=== PATIENT | female | born 1965 | race Caucasian/White ===

== ENCOUNTER 2023-07-26 14:25 | Outpatient (AMB) | payer MEDICAID, SELFPAY ==
--- NOTE | 2023-07-26 14:28 | MHC.OFFVIS ---
Intake Vital Signs 07/26/23 14:35 Height 5 ft 3.5 in Weight 200 lb BMI 34.9 BP 138/75 Blood Pressure Location Lt brachial Position Sitting Respiration 12 Pulse 95 Pulse Source Pulse Oximeter Pulse Oximetry (%) 95 Oxygen Delivery Method Room Air Intake Visit Reasons: Occipital Neuralgia/lvm Allergies codeine Adverse Reaction (Intermediate, Verified 07/26/23 14:36) Vomiting ivp dye Adverse Reaction (Intermediate, Uncoded 07/26/23 14:36) Vomiting Medication List - Last Reconciled 07/26/23 by Natalie Frazier LPN bupropion HCl 150 mg PO BID calcium carbonate 600 mg PO DAILY cholecalciferol (vitamin D3) 25 mcg PO DAILY diazepam 4 mg PO TID duloxetine mg PO gabapentin 600 mg PO TID hydroxyzine HCl 25 - 50 mg PO TID PRN magnesium 500 mg PO DAILY mirabegron ER (Myrbetriq) 25 mg PO DAILY solifenacin 10 mg PO DAILY HPI Occipital Neuralgia/lvm HPI Details 57-year-old female who presents today to the office for an evaluation of occipital neuralgia as well as low back pain. The patient has a history of peripheral neuropathy, restless leg syndrome, overactive bladder, depression, and lumbar disc disease. She reports that sharp lower back pain is most bothersome. It is described as an aching stabbing sensation in the right side, usually 7 to 10/10 in intensity. She states that she was picking up a wheelchair seat for her mother when she felt some pulling on the left side. She was going for physical therapy for about three years in the past. She has been off work since 2020. She was previously under the care of Dr. Cj Arthur, pain management. She was taking oral ketamine, fentanyl patches, hydromorphone, valium, and Adderall. She was also diagnosed with fibromyalgia in 2016. Her prior history is notable for the L5-S1 laminotomy with discectomy. She has a history of osteoporosis and takes calcium supplements. She has a longstanding history of migraines. She has episodes of blurry or double vision. She also noticed some memory issues. She had difficulty getting a referral to a neurologist. She is not taking any opioid medications at this time. She has had constant pain in her ear since 2011. She has had tinnitus for the past five to six years. [facility] Medical History (Updated 12/12/23 @ 13:53 by Gil Cortes MD) Lumbar disc disease Depression Overactive bladder Restless leg syndrome Peripheral neuropathy Review of Systems Const All systems reviewed & are unremarkable except as noted in HPI and below Physical Exam Vital Signs: Last Vital Signs Pulse 95 07/26/23 14:35 Resp 12 07/26/23 14:35 BP 138/75 07/26/23 14:35 Pulse Ox 95 07/26/23 14:35 Oxygen Delivery Method Room Air 07/26/23 14:35 BMI result Body Mass Index 34.9 General: Appears afebrile. Alert and oriented. Mood and affect appropriate. Follows and participates in conversation appropriately. Respiratory effort is unlabored. Able to transition from sit to stand unassisted. Ambulates with bilaterally normal heel strike and toe off. SIJ provocation maneuvers are negative, but lumbar ROM elicits right sided stabbing sensation overlying the SI joint. Lumbar extension reproduces pain across the lower back. Forward flexion is not painful. Results Reviewed Results Reviewed: No imaging is available for review. Assessment & Plan Assessment & Plan (1) Sacroiliac joint dysfunction: Code(s): M53.3 - Sacrococcygeal disorders, not elsewhere classified (2) Lumbar spondylosis: Code(s): M47.816 - Spondylosis without myelopathy or radiculopathy, lumbar region Plan Axial low back pain that is elicited with lumbar ROM and lumbar facet loading. Differential includes lumbar spondylosis and sacroiliac joint dysfunction. The location of her pain is more consistent with a sacroiliac source. Will schedule her for a right diagnostic sacroiliac joint injection 1st. Discussed the risks and benefits of the procedure with the patient in detail. All questions were answered. The patient is on board with the plan. If the diagnostic SI joint is negative, we will consider diagnostic lumbar medial branch blocks. Justification for interventional therapy: ? Patient with average pain > 6/10 ? Patient has exhausted conservative therapy Scribed for Dr. Cortes by Canelo Alexandra, medical administrative assistant, on 07/26/2023. I, Dr. Cortes, have personally reviewed and agree with the information entered by the scribe. Coding Level of Care Code New Pt Level 4 (00287) Diagnoses Sacroiliac joint dysfunction M53.3 Lumbar spondylosis M47.816
[2023-07-26 14:35] VITALS: BP 138/75; PULSE 95; RESP 12; O2SAT 95; BMI 34.9
== END 2023-07-26 15:09 | disposition home or self-care (01) ==
PROVIDERS: PCP Internal Medicine; Referring Provider Internal Medicine; Visit Provider Internal Medicine
DX: M53.3 Sacrococcygeal disorders, not elsewhere classified (principal); M47.816 Spondylosis without myelopathy or radiculopathy, lumbar region
CPT/HCPCS: 99204

== ENCOUNTER → 2023-07-26 14:25 | Outpatient (BNVA) | payer MEDICAID, SELFPAY | PROVIDERS: PCP Internal Medicine; Referring Provider Internal Medicine; Visit Provider Internal Medicine | DX: M54.81 Occipital neuralgia (principal); M53.3 Sacrococcygeal disorders, not elsewhere classified; M47.816 Spondylosis without myelopathy or radiculopathy, lumbar region | CPT/HCPCS: 99202 ==

== ENCOUNTER 2023-08-31 13:53 | Outpatient (REF) | payer MEDICAID, SELFPAY ==
[2023-08-31 16:00] LABS: Anion Gap 13 (12-20); Blood Urea Nitrogen 9 mg/dL (9-16); Calcium 9.6 mg/dL (8.4-10.2); Carbon Dioxide 25 mmol/L (22-29); Chloride 106 mmol/L (96-108); Estimated Glomerular Filt Rate 60; Glucose Random 88 mg/dL (60-115); Potassium 3.9 mmol/L (3.3-5.1); Sodium 140 mmol/L (135-145)
[2023-08-31 16:18] LABS: T4 Thyroxine 5.5 ug/dL (4.5-12.0); Thyroid Stimulating Hormone 0.91 uIU/mL (0.32-4.0)
[2023-08-31 16:32] LABS: Vitamin B12 418 pg/mL (200-900)
== END 2023-08-31 13:54 | disposition home or self-care (01) ==
LOC: HO.LAB 13:53
PROVIDERS: PCP Internal Medicine; Visit Provider Psychiatry & Neurology Neurology
DX: G31.84 Mild cognitive impairment of uncertain or unknown etiology (principal)
CPT/HCPCS: 36415; 80048; 82607; 82746; 84436; 84443

== ENCOUNTER 2023-09-01 05:44 | Outpatient (REF) | payer MEDICAID, SELFPAY ==
--- NOTE | ~2023-09-01 | FL_ITS ---
CLINICAL INDICATION: Sacral coccygeal pain. FINDINGS: Technical assistance and equipment were provided by the Department of Radiology during intraoperative fluoroscopy for percutaneous injection. 4, limited fluoroscopic spot images are submitted. A radiologist was not present during the procedure. Images demonstrate the tips of percutaneous needles to project roughly over the regions of the mid SI joints bilaterally. The images are available for review on PACS. TOTAL FLUOROSCOPY TIME: 0.3 minutes. DOSE AREA PRODUCT: 0.19 mGy-m2 (milligray-meter squared) FL/FL guidance in treatment room IMPRESSION: Technical assistance and equipment provided by the Department of Radiology during intraoperative fluoroscopy, as above. Please see operative report for further details.
== END 2023-09-01 05:45 | disposition home or self-care (01) ==
LOC: CF 05:44
PROVIDERS: Visit Provider Internal Medicine
DX: M53.3 Sacrococcygeal disorders, not elsewhere classified (principal)
CPT/HCPCS: 27096; J2795; Q9967

== ENCOUNTER 2023-09-01 08:56 | Outpatient (AMB) | payer MEDICAID, SELFPAY ==
[2023-09-01 09:03] VITALS: BP 130/82; PULSE 96; RESP 12; O2SAT 97
--- NOTE | 2023-09-01 09:03 | MHC.OFFVIS ---
Intake Vital Signs 09/01/23 09:03 09/01/23 10:08 BP 130/82 132/66 Blood Pressure Location Lt brachial Lt brachial Position Sitting Sitting Respiration 12 12 Pulse 96 77 Pulse Source Pulse Oximeter Pulse Oximeter Pulse Oximetry (%) 97 97 Oxygen Delivery Method Room Air Room Air Intake Visit Reasons: chely Dx SIJ inj Allergies codeine Adverse Reaction (Intermediate, Verified 09/01/23 09:04) Vomiting ivp dye Adverse Reaction (Intermediate, Uncoded 09/01/23 09:04) Vomiting HPI chely Dx SIJ inj HPI Details Patient presents for scheduled procedure. Denies any recent cough, cold, infection, fever or other significant changes in medical history since last office visit. [facility] Medical History (Updated 08/09/23 @ 09:26 by Gil Cortes MD) Lumbar disc disease Depression Overactive bladder Restless leg syndrome Peripheral neuropathy Physical Exam Vital Signs: Last Vital Signs Pulse 77 09/01/23 10:08 Resp 12 09/01/23 10:08 BP 132/66 09/01/23 10:08 Pulse Ox 97 09/01/23 10:08 Oxygen Delivery Method Room Air 09/01/23 10:08 Office Procedures Joint Injection/Drain Joint Injection/Drain Details: Diagnostic Sacroiliac Joint Injection, Bilateral The procedure, its benefits, and its risks were explained and written informed consent was obtained from the patient. Immediately prior to starting the procedure, a time-out safety check was conducted. The patient's identification, procedure name, procedure site, and procedure laterality were confirmed with the patient. ? Patient was placed prone on the fluoroscopy table and the lumbosacral area was prepped using ChloraPrep and draped with sterile drapein standard fashion. The C-arm was rotated in a contralateral oblique fashion until the medial border of the iliac crest no longer foreshadowed the posterior sacroiliac joint line. The skin and subcutaneous tissue was anesthetized using 1 mL of 0.75% plain lidocaine with 1.5-inch 25-gauge needle in the middle region of the joint line.? A 3.5-inch 22-gauge spinal needle with small bend on the tip was slowly advanced towards the joint line, coaxial to the x-ray beam. Once bony content was obtained, the needle was easily slid into the intra-articular space.? Intra-articular needle position was confirmed using lateral fluoroscopy.? A total volume of 2.5mL of solution containing 0.5% of ropivacaine was injected intra-articularly. The stylet was reinserted and needle was removed. The same process was repeated on the contralateral side. The patient tolerated the procedure well. Patient denied any lower extremity weakness or numbness. Patient was observed for 30 min and was discharged after fulfilling the standard discharge criteria. Coding 41897 - Sacroiliac (Bilateral) Procedure code (CPT) selection complete Assessment & Plan Assessment & Plan (1) Sacroiliac joint dysfunction: Code(s): M53.3 - Sacrococcygeal disorders, not elsewhere classified Plan Patient is status post bilateral diagnostic sacroiliac joint injections. Patient tolerated procedure well and was discharged home in stable condition with discharge instructions. All questions were answered. We will follow-up via telephone or in clinic to assess response to therapy. A follow-up appointment was made during today's visit. Orders: Orders FL guidance in treatment room Today M53.3 - Sacrococcygeal disorders, not elsewhere classified Coding Level of Care Code Procedure Only Diagnoses Sacroiliac joint dysfunction M53.3 CPT Codes Coding - Joint 9: 58039 - Sacroiliac ([id number])
[2023-09-01 10:08] VITALS: BP 132/66; PULSE 77; RESP 12; O2SAT 97
== END 2023-09-01 09:43 | disposition home or self-care (01) ==
LOC: HO.PMCPRC 08:56
PROVIDERS: PCP Internal Medicine; Visit Provider Internal Medicine
DX: M53.3 Sacrococcygeal disorders, not elsewhere classified (principal)
CPT/HCPCS: 27096

== ENCOUNTER 2023-09-03 11:27 | Outpatient (AMB) | payer MEDICAID, SELFPAY ==
--- NOTE | 2023-09-03 11:31 | A.OFFVIS_ITS ---
Intake Vital Signs 09/03/23 11:33 Height 5 ft 3.5 in Weight 193 lb BMI 33.6 Respiration 12 Pulse 85 Pulse Source Pulse Oximeter Pulse Oximetry (%) 97 Oxygen Delivery Method Room Air Intake Visit Reasons: s/p right Dx SIJ inj Allergies codeine Adverse Reaction (Intermediate, Verified 09/03/23 11:35) Vomiting ivp dye Adverse Reaction (Intermediate, Uncoded 09/03/23 11:35) Vomiting Medication List - Last Reconciled 09/03/23 by Natalie Frazier LPN bupropion HCl 150 mg PO BID calcium carbonate 600 mg PO DAILY cholecalciferol (vitamin D3) 25 mcg PO DAILY diazepam 4 mg PO TID duloxetine mg PO gabapentin 600 mg PO TID hydroxyzine HCl 25 - 50 mg PO TID PRN magnesium 500 mg PO DAILY mirabegron ER (Myrbetriq) 25 mg PO DAILY solifenacin 10 mg PO DAILY HPI s/p right Dx SIJ inj HPI Details 57-year-old female who presents today to the office for a status post- right diagnostic SIJ injection. The patient reports 100 % relief following the procedure. Her right-sided pain started coming back last night. She states that her right side is worse than her left side. She had cortisone injections for SIJ in the past. She had completed multiple physical therapy sessions in the past. She also reports some neck issues. She has had shoulder surgery and back surgery. She was following up with pain management, took multiple medications, and tried fentanyl patches. She has tried the SIJ belt but discontinued it as it caused back pain. She has been seeing Dr. Roberson for memory issues, which started last May after the surgery. She also has a gait imbalance issue. She had a feeling of getting off balance and falling down while walking. She is using a cane. She noticed she forgot three times while driving. She states that recently she had to pull into a commercial parking lot because she had a panic attack because her GPS was not working. At last, she had to call her aunt to come pick her up. She had [address] Villaseñor at [facility] for occipital nerve release. She has had adhesion issues in multiple parts of her body. She has also had 4?5 laparoscopic surgeries for adhesions. ? Past procedures:? 09/01/23: Diagnostic Sacroiliac Joint Inj ection, Bilateral: 100 % diagnostic relief. [facility] Medical History (Updated 08/09/23 @ 09:26 by Gil Cortes MD) Lumbar disc disease Depression Overactive bladder Restless leg syndrome Peripheral neuropathy Review of Systems Const All systems reviewed & are unremarkable except as noted in HPI and below Physical Exam Vital Signs: Last Vital Signs Pulse 85 09/03/23 11:33 Resp 12 09/03/23 11:33 Pulse Ox 97 09/03/23 11:33 Oxygen Delivery Method Room Air 09/03/23 11:33 BMI result Body Mass Index 33.6 General: Appears afebrile. Alert and oriented. Mood and affect appropriate. Follows and participates in conversation appropriately. Respiratory effort is unlabored. Able to transition from sit to stand unassisted. Ambulates with bilaterally normal heel strike and toe off. Results Reviewed Results Reviewed: No imaging is available for review. Assessment & Plan Assessment & Plan (1) Sacroiliac joint dysfunction: Code(s): M53.3 - Sacrococcygeal disorders, not elsewhere classified Plan Will schedule her for a bilateral therapeutic SI joint injection. Discussed the risks and benefits of the procedure with the patient in detail. All questions were answered. The patient is on board with the plan. Justification for interventional therapy: ? Patient with average pain > 6/10 ? Patient has exhausted conservative therapy Scribed for Dr. Cortes by Canelo Alexandra, medical social worker, on 09/03/2023. I, Dr. Cortes, have personally reviewed and agree with the information entered by the scribe. Coding Level of Care Code Est Pt Level 3 (34136) Diagnoses Sacroiliac joint dysfunction M53.3
[2023-09-03 11:33] VITALS: PULSE 85; RESP 12; O2SAT 97; BMI 33.6
== END 2023-09-03 11:52 | disposition home or self-care (01) ==
PROVIDERS: PCP Internal Medicine; Visit Provider Internal Medicine
DX: M53.3 Sacrococcygeal disorders, not elsewhere classified (principal)
CPT/HCPCS: 99213

== ENCOUNTER → 2023-09-03 11:27 | Outpatient (BNVA) | payer MEDICAID, SELFPAY | PROVIDERS: PCP Internal Medicine; Visit Provider Internal Medicine | DX: M53.3 Sacrococcygeal disorders, not elsewhere classified (principal) | CPT/HCPCS: 99212 ==

== ENCOUNTER 2023-09-23 06:06 | Outpatient (REF) | payer MEDICAID, SELFPAY ==
--- NOTE | ~2023-09-23 | FL_ITS ---
EXAMINATION: Intraoperative fluoroscopy CLINICAL INFORMATION: sacrococcygeal disorders COMPARISON: Intraoperative fluoroscopy imaging 09/01/2023 TECHNIQUE: Intraoperative fluoroscopy was provided for use by Dr. Cortes. A total of 4 images were saved to PACS. A radiologist was not present during imaging. Today's dictation is only for administrative purposes to document intraoperative fluoroscopic usage. TOTAL FLUOROSCOPIC TIME: 0.1 minutes DAP: 0.028 mGy-cm FL/FL guidance in treatment room FINDINGS~\^^ Intraoperative fluoroscopy provided for use by Dr. Cortes. Please see operative note for detailed findings.
== END 2023-09-23 06:07 | disposition home or self-care (01) ==
LOC: CF 06:06
PROVIDERS: Visit Provider Internal Medicine
DX: M53.3 Sacrococcygeal disorders, not elsewhere classified (principal)
CPT/HCPCS: 27096; J3301; Q9967

== ENCOUNTER 2023-09-23 07:50 | Outpatient (AMB) | payer MEDICAID, SELFPAY ==
--- NOTE | 2023-09-23 07:47 | A.OFFVIS_ITS ---
Intake Vital Signs 09/23/23 07:57 09/23/23 09:04 Height 5 ft 3.5 in 5 ft 3.5 in Weight 201 lb 201 lb BMI 35.0 35.0 BP 120/70 120/68 Blood Pressure Location Lt brachial Lt brachial Position Sitting Sitting Respiration 18 18 Pulse 82 108 H Pulse Source Pulse Oximeter Pulse Oximeter Pulse Oximetry (%) 97 97 Oxygen Delivery Method Room Air Room Air Comment Pre-Op Post-op Intake Visit Reasons: Ezequiel theraputic SIJ Medical Billing And Coding Instructor Required: No Accompanied by: Family/Other Allergies codeine Adverse Reaction (Intermediate, Verified 09/23/23 07:58) Vomiting ivp dye Adverse Reaction (Intermediate, Uncoded 09/03/23 11:35) Vomiting HPI Ezequiel theraputic SIJ HPI Details Patient presents for scheduled procedure. Denies any recent cough, cold, infection, fever or other significant changes in medical history since last office visit. [facility] Medical History (Updated 08/09/23 @ 09:26 by Gil Cortes MD) Lumbar disc disease Depression Overactive bladder Restless leg syndrome Peripheral neuropathy Physical Exam Vital Signs: Last Vital Signs Pulse 82 09/23/23 07:57 Resp 18 09/23/23 07:57 BP 120/70 09/23/23 07:57 Pulse Ox 97 09/23/23 07:57 Oxygen Delivery Method Room Air 09/23/23 07:57 BMI result Body Mass Index 35.0 Office Procedures Joint Injection/Drain Joint Injection/Drain Details: Sacroiliac Joint Injection, Bilateral The procedure, its benefits, and its risks were explained and written informed consent was obtained from the patient. Immediately prior to starting the procedure, a time-out safety check was conducted. The patient's identification, procedure name, procedure site, and procedure laterality were confirmed with the patient. ? Patient was placed prone on the fluoroscopy table and the lumbosacral area was prepped using ChloraPrep and draped with sterile drape in standard fashion. The C-arm was rotated in a contralateral oblique fashion until the medial border of the iliac crest no longer foreshadowed the posterior sacroiliac joint line. The skin and subcutaneous tissue was anesthetized using 1 mL of 0.75% plain lidoc ermelinda with 1.5-inch 25-gauge needle in the middle region of the joint line.? A 3.5-inch 22-gauge spinal needle with small bend on the tip was slowly advanced towards the joint line, coaxial to the x-ray beam. Once bony content was obtained, the needle was easily slid into the intra-articular space.? Intra- articular needle position was confirmed using lateral fluoroscopy.? A total volume of 3 mL of solution containing 40 mg Kenalog and rest 0.5% of ropivacaine was injected intra-articularly. The stylet was reinserted and needle was removed. The same procedure was repeated on the other side. The patient tolerated the procedure well. Patient denied any lower extremity weakness or numbness. Patient was observed for 30 min and was discharged after fulfilling the standard discharge criteria. Coding 83998 - Sacroiliac (bilateral) Procedure code (CPT) selection complete Assessment & Plan Assessment & Plan (1) Sacroiliac joint dysfunction: Code(s): M53.3 - Sacrococcygeal disorders, not elsewhere classified Plan Patient is status post bilateral therapeutic SIJ injections. Patient tolerated procedure well and was discharged home in stable condition with discharge instructions. All questions were answered. We will follow-up via telephone or in clinic to assess response to therapy. A follow-up appointment was made during today's visit. Orders: Orders FL guidance in treatment room Today M53.3 - Sacrococcygeal disorders, not elsewhere classified Coding Level of Care Code Procedure Only Diagnoses Sacroiliac joint dysfunction M53.3 CPT Codes Coding - Joint 9: 74665 - Sacroiliac ([id number])
[2023-09-23 07:57] VITALS: BP 120/70; PULSE 82; RESP 18; O2SAT 97; BMI 35.0
[2023-09-23 09:04] VITALS: BP 120/68; PULSE 108; RESP 18; O2SAT 97; BMI 35.0
== END 2023-09-23 08:49 | disposition home or self-care (01) ==
LOC: HO.PMCPRC 07:50
PROVIDERS: PCP Internal Medicine; Referring Provider Internal Medicine; Visit Provider Internal Medicine
DX: M53.3 Sacrococcygeal disorders, not elsewhere classified (principal)
CPT/HCPCS: 27096

== ENCOUNTER 2023-09-28 14:55 | Outpatient (REF) | payer MEDICAID, SELFPAY ==
--- NOTE | ~2023-09-28 | CT_ITS ---
EXAMINATION: CT HEAD WITHOUT CONTRAST CLINICAL INFORMATION: 57-year-old with mild cognitive impairment of uncertain or unknown etiology. COMPARISON: None available. TECHNIQUE: Contiguous axial imaging was performed from the skull base to vertex without intravenous administration of contrast. This CT examination was performed using dose optimization techniques as appropriate, variously including the following: *Automated exposure control *Adjustment of mA and/or kV according to patient size (this includes techniques or standardized protocols for targeted exams where dose is matched to indication/reason for exam; i.e. extremities or head) *Use of iterative reconstruction technique DLP: 682 mGy-cm FINDINGS: Brain Volume: Within normal limits within the limitations of qualitative assessment. Structural: No malformations. Brain and Meninges: Farrell-white matter interface is preserved. No evidence for territorial infarct. Normal brain parenchymal attenuation. No evidence for intracranial hemorrhage, extra-axial fluid collection, space-occupying process or mass effect. Ganglionic structures, midbrain and brainstem are grossly intact within the limitations of the exam with beam-hardening artifact in the posterior fossa. There are bilateral atheromatous mural calcifications of the carotid siphons and partially calcified plaque at the right vertebral artery. Ventricles and Subarachnoid Spaces: The ventricular system and subarachnoid spaces are within normal range; there is no hydrocephalus. Orbital Structures: The partially visualized orbital soft tissue structures are grossly within normal limits and symmetric. Osseous Structures, Sinuses/Mastoids, Extracranial Soft Tissues: The calvarium is intact. The visualized airspaces are unopacified. The visualized extracranial soft tissue structures are unremarkable. CT/CT head/brain wo IV con IMPRESSION: 1. Normal noncontrast CT of the brain. No evidence for territorial infarct, intracranial hemorrhage, extra-axial fluid collection, space-occupying process, mass effect or hydrocephalus. 2. Bilateral atheromatous mural calcifications of the carotid siphons and right vertebral artery. 3. No significant disproportionate global or regional brain parenchymal volume loss within the limitations of a qualitative assessment.
== END 2023-09-28 14:56 | disposition home or self-care (01) ==
LOC: HO.CT 14:55
PROVIDERS: PCP Internal Medicine; Visit Provider Psychiatry & Neurology Neurology
DX: G31.84 Mild cognitive impairment of uncertain or unknown etiology (principal)
CPT/HCPCS: 70450

== ENCOUNTER 2023-10-06 13:34 | Outpatient (REF) | payer MEDICAID, SELFPAY ==
[2023-10-06 14:10] LABS: Blood Urea Nitrogen 14 mg/dL (9-16); Estimated Glomerular Filt Rate > 60
== END 2023-10-06 13:35 | disposition home or self-care (01) ==
LOC: HO.LAB 13:34
PROVIDERS: PCP Internal Medicine; Visit Provider Psychiatry & Neurology Neurology
DX: I65.29 Occlusion and stenosis of unspecified carotid artery (principal)
CPT/HCPCS: 36415; 82565; 84520

== ENCOUNTER 2023-10-15 08:18 | Outpatient (AMB) | payer MEDICAID, SELFPAY ==
--- NOTE | 2023-10-15 09:02 | MHC.OFFVIS ---
Intake Vital Signs 10/15/23 09:04 Height 5 ft 3.5 in Weight 205 lb BMI 35.7 BP 136/65 Blood Pressure Location Rt brachial Position Sitting Pulse 62 Pulse Source Pulse Oximeter Pulse Oximetry (%) 97 Oxygen Delivery Method Room Air Intake Visit Reasons: s/p chely theraputic SIJ inj/confirmed Training And Development Specialist Required: No Accompanied by: Self / Same As Patient Allergies codeine Adverse Reaction (Intermediate, Verified 10/15/23 09:02) Vomiting ivp dye Adverse Reaction (Intermediate, Uncoded 09/03/23 11:35) Vomiting HPI s/p chely theraputic SIJ inj/confirmed HPI Details 57-year-old female who presents today to the office for a status post bilateral therapeutic SIJ injections. The patient had two days of relief following the therapeutic injection, which was in line with the diagnostic phase, but the steroid did not give her much benefit. She reports sharp pain that started two days after the procedure. She reports worsening of the SIJ and hip pain. She states that her pain worsens with movement. She reports whole-body pain, which is secondary to fibromyalgia. She has been having worsening pain in her lower back as well as her ear since her duloxetine has been weaned off. She is now down to 30 milligrams from 90 milligrams a day, and she feels this has contributed to the worsening of her symptoms. She is not able to get out of bed or socialize with her friends and family. She reports a severe pain around her right ear. She reports pressure and sharp stabbing. She states that her pain radiates to the back of her head. She has been visiting a therapist. She is taking care of her mother, who is 93 years old. Her depression has not been well controlled of late. Past procedures: 09/23/2023: Sacroiliac Joint Injection, Bilateral: Two days of relief. 09/01/23: Diagnostic Sacroiliac Joint Injection, Bilateral: 100 % diagnostic relief. [facility] Medical History (Updated 10/21/23 @ 15:19 by Gil Cortes MD) Lumbar disc disease Depression Overactive bladder Restless leg syndrome Peripheral neuropathy Review of Systems Const All systems reviewed & are unremarkable except as noted in HPI and below Physical Exam Vital Signs: Last Vital Signs Pulse 62 10/15/23 09:04 BP 136/65 10/15/23 09:04 Pulse Ox 97 10/15/23 09:04 Oxygen Delivery Method Room Air 10/15/23 09:04 BMI result Body Mass Index 35.7 General: Appears afebrile. Alert and oriented. Mood and affect appropriate. Follows and participates in conversation appropriately. Respiratory effort is unlabored. Able to transition from sit to stand unassisted. Ambulates with bilaterally normal heel strike and toe off. Results Reviewed Results Reviewed: No imaging is available for review. Assessment & Plan Assessment & Plan (1) Sacroiliac joint dysfunction: Code(s): M53.3 - Sacrococcygeal disorders, not elsewhere classified (2) Lumbar spondylosis: Code(s): M47.816 - Spondylosis without myelopathy or radiculopathy, lumbar region (3) Otalgia of right ear: Code(s): H92.01 - Otalgia, right ear Plan I had a long discussion with her regarding her various ongoing issues including periauricular pain, low back pain, suboptimally controlled depression and mild cognitive impairment. I encouraged her to follow up with Dr. Roberson to see what other alternatives might be available to her in setting of weaning off the duloxetine. For her sacroiliac joint pain, we discussed nerve stimulation therapy as a potential treatment option. I did inform her that we would need a note from her current therapist clearing her for such therapy and confirming that her underlying psychiatric conditions, including depression, are well controlled before we can proceed with a trial of PNS. With respect to her ear pain, we can plan for diagnostic periauricular nerve blocks in the future and also consider nerve stimulation for that if she is interested. Scribed for Dr. Cortes by Canelo Alexandra, esthetician and manager medical spa, on 10/15/2023. I, Dr. Cortes, have personally reviewed and agree with the information entered by the scribe. Coding Level of Care Code Est Pt Level 4 (60153) Diagnoses Sacroiliac joint dysfunction M53.3 Lumbar spondylosis M47.816 Otalgia of right ear H92.01
[2023-10-15 09:04] VITALS: BP 136/65; PULSE 62; O2SAT 97; BMI 35.7
== END 2023-10-15 09:20 | disposition home or self-care (01) ==
PROVIDERS: PCP Internal Medicine; Visit Provider Internal Medicine
DX: M53.3 Sacrococcygeal disorders, not elsewhere classified (principal); M47.816 Spondylosis without myelopathy or radiculopathy, lumbar region; H92.01 Otalgia, right ear
CPT/HCPCS: 99214

== ENCOUNTER 2023-10-15 09:29 | Outpatient (REF) | payer MEDICAID, SELFPAY ==
--- NOTE | ~2023-10-15 | CT_ITS ---
EXAMINATION: CT ANGIOGRAM BRAIN/HEAD CLINICAL INFORMATION: Evaluate for carotid artery stenosis. COMPARISON: 09/28/2023 CT brain. TECHNIQUE: Test bolus sequences followed by intravenous administration 75 mL of Omnipaque 350 intravenous contrast. Helical imaging was performed in the axial plane from the skull base to the vertex. Precontrast and delayed postcontrast imaging of the head was also performed. The data was processed at the x ray technologist workstation for generation of MIP sequences. Three-dimensional volume rendered reformatted images were also generated at an offline 3-D workstation. The degree of stenosis determined by NASCET criteria. This CT examination was performed using dose optimization techniques as appropriate, variously including the following: *Automated exposure control *Adjustment of mA and/or kV according to patient size (this includes techniques or standardized protocols for targeted exams where dose is matched to indication/reason for exam; i.e. extremities or head) *Use of iterative reconstruction technique DLP: 2091 mGy-cm FINDINGS: CT BRAIN: Redemonstrated is normal brain parenchymal attenuation with an intact ann-white matter junction with no evidence for acute territorial infarct, intracranial hemorrhage, extra-axial fluid collection, space-occupying process or mass effect. No intracranial mass lesion or pathologic intracranial enhancement is identified. The ventricular system and subarachnoid spaces are within normal limits without hydrocephalus. The visualized orbital soft tissue structures appear symmetric and within normal limits. The bony structures are intact and the visualized airspaces are unopacified. CT ANGIOGRAM, BRAIN/HEAD: The left upper cervical ICA is patent, smoothly contoured and normal in caliber. The petrous portion of the intracranial left ICA is smoothly contoured, normal in caliber and patent. There are mural calcifications of the left carotid siphon, with mild luminal diameter reduction of the supraclinoid left ICA without significant focal stenosis. The visualized upper cervical right ICA is patent, smoothly contoured and normal in caliber. The petrous portion of the intracranial right ICA is also patent and normal in caliber. There are mural calcifications of the right carotid siphon, with mild luminal narrowing of the cavernous and ophthalmic segments of the right ICA and moderate diameter reduction stenosis of the supraclinoid right ICA. The left A1 segment is dominant, patent and normal in caliber. The right A1 segment is relatively hypoplastic but is patent. The A2 segments are patent and normal in caliber bilaterally. The anterior communication artery is within normal limits. The M1 segments of the MCAs are patent without significant focal stenosis or segmental occlusion. The MCA bifurcations and M2 branches are patent and normal in caliber. The visualized extracranial vertebral arteries demonstrate that the right vertebral artery is dominant with a small left vertebral artery. Minimal calcified plaque noted in the proximal V4 segment of the intradural right vertebral artery. No evidence for significant vertebral artery stenosis or occlusion. The basilar artery is patent and normal in caliber. The superior cerebellar and posterior cerebral arteries are patent. The right posterior communicating artery is visualized. No intracranial aneurysms or high flow vascular malformations are seen. There is opacification of the major dural venous sinuses. CT/CT angio head IMPRESSION: 1. No evidence for large vessel occlusion or critical focal stenosis of the intracranial arterial circulation. 2. Mural calcifications of the carotid siphons bilaterally, right more than left, with moderate diameter reduction stenosis of the supraclinoid right ICA and mild luminal diameter reduction of the supraclinoid left ICA. 3. Normal CT of the brain with and without contrast.
[2023-10-15] MEDS: iohexoL 350 MG/ML 100 ML INFUS..BTL 75 ML IV (10:22)
== END 2023-10-15 09:30 | disposition home or self-care (01) ==
LOC: HO.CT 09:29
PROVIDERS: PCP Internal Medicine; Visit Provider Psychiatry & Neurology Neurology
DX: I65.23 Occlusion and stenosis of bilateral carotid arteries (principal); M53.3 Sacrococcygeal disorders, not elsewhere classified; M47.816 Spondylosis without myelopathy or radiculopathy, lumbar region; H92.01 Otalgia, right ear
CPT/HCPCS: 70496; 99212; Q9967

== ENCOUNTER → 2023-10-19 09:38 | Outpatient (REF) | payer MEDICAID, SELFPAY ==
--- NOTE | 2023-10-19 09:48 | CA_ITS ---
Transthoracic Echocardiogram Patient (Last, First, Middle): Edu Suárez N Gender: Female Date of : 1965 Age: 57 Procedure Date: 10/19/2023 Procedure Type: Transthoracic Echocardiogram Location: OP Height: 160.02 cm Weight: 92.53 kg BSA: 1.95 m2 Heart Rate: bpm BP: 115 / 75 mmHg Sample Processor: ALANA Referring MD: Johann Trujillo MD Symptoms: F/U MURMUR Study Quality: Adequate ECG Rhythm: Sinus Conclusions: - The left ventricular systolic function is normal. The calculated ejection fraction is 60% by biplane method. - There is moderate calcification of the aortic valve. There is mild aortic valve stenosis. There is mild aortic valve regurgitation. Findings Left Ventricle Normal left ventricular cavity size. There is normal left ventricular wall thickness. The left ventricular systolic function is normal. The calculated ejection fraction is 60% by biplane method. There is no evidence of regional wall motion abnormalities. Diastolic function is normal for age. LV peak GLS -15.8%. Right Ventricle Normal right ventricular cavity size and systolic function. Atria Both atria are normal in size. Aortic Valve There is moderate calcification of the aortic valve. There is mild aortic valve stenosis. There is mild aortic valve regurgitation. Mitral Valve There is mild mitral annular calcification. There is no mitral valve regurgitation. There is no mitral valve stenosis. Pulmonic Valve The pulmonic valve is likely normal. Tricuspid Valve There is trace tricuspid valve regurgitation. There is no evidence of pulmonary hypertension. Great Vessels The asc aorta is normal in size. Venous The inferior vena cava is normal in size and collapses greater than 50% with inspiration. Pericardium/Pleural There is no evidence of pericardial effusion. Prior Study Comparison No prior study available for comparison. Measurements 2D Linear Measurements IVSd: 0.81 0.6-0.9/0.6-1.0 cm LVIDd: 5.15 3.9-5.3/4.2-5.9 cm LVIDd Index: 2.64 2.4-3.2/2.2-3.1 cm/m2 LVIDs: 2.96 2.0-3.6 cm LVPWd: 1.01 0.7-1.1 cm LA Diam: 3.50 2.7-3.8/3.0-4.0 cm LAIDs Index: 1.79 1.5-2.3 cm/m2 LV Mass: 209.95 67-162/88-224 g LV Mass Index: 107.67 43-95/49-115 g/m2 LVOT Diam: 2.10 3.0+(-)1.3 cm 2D Systolic Function EF 4C: 62.00 >55% EF 2C: 59.90 >55% EF BiP: 60.20 >55% Mitral Valve MV Pk E: 0.66 MV PK A: 0.60 MV Decel Time: 176.00 E/A: 1.10 E'Lateral: 7.29 E'Medial: 6.31 E/E' Med: 10.50 E/E' Lat: 9.10 PHT: 51.00 MVA PHT: 4.31 Decel Banner: 3.76 Aortic Valve AoV Pk Jonathan: 2.65 AoV Mn Jonathan: 1.91 AoV VTI: 0.62 AoV Pk Grad: 28.00 Aov Mn Grad: 16.00 NADIYA Cont.VTI: 1.64 AI Pk Jonathan: 4.58 AI VTI: 2.40 AI Banner: 2.52 LVOT LVOT Pk Jonathan: 1.35 LVOT Mn Jonathan: 0.85 LVOT VTI: 0.29 LVOT Pk Grad: 7.00 LVOT Mn Grad: 3.00 LVOT Diam: 2.10 LVOT Area: 3.46 Diastolic Function MV Pk E: 0.66 MV Pk A: 0.60 E/A: 1.10 E'Medial: 6.31 E/E' Med: 10.50 E' Laterial: 7.29 E/E' Lat: 9.10 Right Ventricle TAPSE (mm): 22.80 TVS' Jonathan: 13.40 Tricuspid Valve TR Pk Jonathan: 2.23 TR Pk Grad: 20.00 RA Press: 3.00 RVSP: 23.00 Great Vessels Aorta Sinus of Valsalva: 3.52 2.0-3.[address] Ridge: 2.23 1.7-3.4 cm Ao Asc: 3.30 2.1-3.4 cm Updated in Other Vendor System with Status of Final Yony Jain MD electronically signed on 10/20/2023 7:48:26 AM with status of Final
== END ==
LOC: HO.CARD 09:38
PROVIDERS: PCP Internal Medicine; Visit Provider Internal Medicine
DX: R01.1 Cardiac murmur, unspecified (principal)
CPT/HCPCS: 93306

== ENCOUNTER → 2023-10-19 09:48 | Outpatient (BNV) | payer MEDICAID, SELFPAY | PROVIDERS: PCP Internal Medicine; Visit Provider Internal Medicine | DX: I35.2 Nonrheumatic aortic (valve) stenosis with insufficiency (principal) | CPT/HCPCS: 93306 ==

== ENCOUNTER 2023-10-22 09:40 | Outpatient (AMB) | payer MEDICAID, SELFPAY ==
[2023-10-22 09:49] VITALS: BP 138/70; PULSE 70; RESP 12; O2SAT 99; BMI 35.7
--- NOTE | 2023-10-22 09:49 | MHC.OFFVIS ---
Intake Vital Signs 10/22/23 09:49 Height 5 ft 3.5 in Weight 205 lb BMI 35.7 BP 138/70 Blood Pressure Location Lt brachial Position Sitting Respiration 12 Pulse 70 Pulse Source Pulse Oximeter Pulse Oximetry (%) 99 Oxygen Delivery Method Room Air Intake Visit Reasons: Dx auricular NB Allergies codeine Adverse Reaction (Intermediate, Verified 10/22/23 09:51) Vomiting Medication List - Last Reconciled 10/22/23 by Natalie Frazier LPN bupropion HCl 150 mg PO BID calcium carbonate 600 mg PO DAILY cholecalciferol (vitamin D3) 25 mcg PO DAILY diazepam 2 mg PO TID duloxetine mg PO gabapentin 600 mg PO BID hydroxyzine HCl 25 mg PO TID magnesium 500 mg PO DAILY metoprolol succinate ER 50 mg PO DAILY mirabegron ER (Myrbetriq) 25 mg PO DAILY oxycodone mg PO pramipexole 0.375 mg PO BEDTIME solifenacin 10 mg PO DAILY HPI Dx auricular NB HPI Details 57-year-old female who presents today to the office for right diagnostic luz maria-auricular nerve block. Denies any recent cough, cold, infection, fever or other significant changes in medical history since last office visit. Past procedures: 09/23/2023: Sacroiliac Joint Injection, Bilateral: Two days of relief. 09/01/23: Diagnostic Sacroiliac Joint Injection, Bilateral: 100 % diagnostic relief. [facility] Medical History (Updated 10/22/23 @ 11:06 by Gil Cortes MD) Lumbar disc disease Depression Overactive bladder Restless leg syndrome Peripheral neuropathy Review of Systems Const All systems reviewed & are unremarkable except as noted in HPI and below Physical Exam Vital Signs: Last Vital Signs Pulse 70 10/22/23 09:49 Resp 12 10/22/23 09:49 BP 138/70 10/22/23 09:49 Pulse Ox 99 10/22/23 09:49 Oxygen Delivery Method Room Air 10/22/23 09:49 BMI result Body Mass Index 35.7 General: Appears afebrile. Alert and oriented. Mood and affect appropriate. Follows and participates in conversation appropriately. Respiratory effort is unlabored. Able to transition from sit to stand unassisted. Ambulates with bilaterally normal heel strike and toe off. Office Procedures Nerve Block Details: Right diagnostic auricular temporal and posterior auricular nerve blocks, landmark guided After obtaining written consent, pre-procedure blood pressure and heart rate were stable and recorded in the nursing record. The patient was in the sitting position. The skin overlying the target luz maria-auricular nerves was prepped with alcohol. A 27 gauge 1.5 in needle was used. Using landmark guided approach, the needle was placed on the target nerves including auriculotemporal and the posterior auricular. Aspiration was negative for heme and CSF. 1 cc-2 cc of ropivacaine 0.5% was injected at each site. The skin was cleansed and hemostasis was ensured. The patient tolerated the procedure well and no complications were encountered. Following the procedure the patient's vital signs were stable. The patient was discharged home in good condition with post-procedural instructions. Time Out: Immediately prior to the procedure, the following was verbally confirmed that there is a signed consent form and that the correct patient, planned procedure, site and side are consistent with documentation and that necessary equipment and/or blood products are available prior to the start of the case. Complications: none EBL: <1 cc [id number] Peripheral Nerve Block (Trigeminal and facial nerve branches) Procedure code (CPT) selection complete Results Reviewed Results Reviewed: No imaging is available for review. Assessment & Plan Assessment & Plan (1) Degeneration of cervical intervertebral disc: Code(s): M50.30 - Other cervical disc degeneration, unspecified cervical region (2) Otalgia of right ear: Code(s): H92.01 - Otalgia, right ear (3) Sacroiliac joint dysfunction: Code(s): M53.3 - Sacrococcygeal disorders, not elsewhere classified Plan Patient is status post right diagnostic luz maria-auricular nerve block, landmark guided. Patient tolerated the procedure well and was discharged home in stable condition with discharge instructions. All questions were answered. We can repeat the same injection once a month, if the patient gets good relief.? As for her PNS device psych clearance, as previously discussed, she will try to obtain a letter from her current therapist. Otherwise, we will have to look into [employer]. A referral was provided to physical therapy for her ongoing neck pain. The patient will receive a call to schedule an appointment. Scribed for Dr. Cortes by Canelo Alexandra, medical records technician, on 10/22/2023. I, Dr. Cortes, have personally reviewed and agree with the information entered by the scribe. Orders: Orders PT Evaluation and Treatment 10/22/23 M50.30 - Other cervical disc degeneration, unspecified cervical region Coding Level of Care Code Est Pt Level 4 (79642) Diagnoses Degeneration of cervical intervertebral disc M50.30 Otalgia of right ear H92.01 Sacroiliac joint dysfunction M53.3 CPT Codes Nerve Block - Nerve Block 8: [id number] Peripheral Nerve Block ([id number])
== END 2023-10-22 10:52 | disposition home or self-care (01) ==
PROVIDERS: PCP Internal Medicine; Visit Provider Internal Medicine
DX: H92.01 Otalgia, right ear (principal); M50.30 Other cervical disc degeneration, unspecified cervical region; M53.3 Sacrococcygeal disorders, not elsewhere classified
CPT/HCPCS: 64450

== ENCOUNTER → 2023-10-22 09:40 | Outpatient (BNVA) | payer MEDICAID, SELFPAY | PROVIDERS: PCP Internal Medicine; Visit Provider Internal Medicine | DX: M50.30 Other cervical disc degeneration, unspecified cervical region (principal); M53.3 Sacrococcygeal disorders, not elsewhere classified; H92.01 Otalgia, right ear | CPT/HCPCS: 64450; J2795; J3301 ==

== ENCOUNTER 2023-11-08 10:37 | Outpatient (AMB) | payer MEDICAID, SELFPAY ==
--- NOTE | 2023-11-08 11:14 | A.OFFVIS_ITS ---
Intake Vital Signs 11/08/23 11:16 BP 119/69 Blood Pressure Location Lt brachial Position Sitting Respiration 12 Pulse 64 Pulse Source Pulse Oximeter Pulse Oximetry (%) 96 Oxygen Delivery Method Room Air Intake Visit Reasons: Follow up Allergies codeine Adverse Reaction (Intermediate, Verified 11/08/23 11:19) Vomiting Medication List - Last Reconciled 11/08/23 by Natalie Frazier LPN bupropion HCl 150 mg PO BID calcium carbonate 600 mg PO DAILY cholecalciferol (vitamin D3) 25 mcg PO DAILY diazepam 2 mg PO TID duloxetine mg PO gabapentin 600 mg PO BID hydroxyzine HCl 25 mg PO TID magnesium 500 mg PO DAILY metoprolol succinate ER 50 mg PO DAILY mirabegron ER (Myrbetriq) 25 mg PO DAILY oxycodone mg PO pramipexole 0.375 mg PO BEDTIME solifenacin 10 mg PO DAILY HPI Follow up HPI Details 57-year-old female who presents today to the office for a follow-up. The patient reports no significant relief following the procedure. Her pain started coming back the next night. She had two surgeries last year. She has excruciating pain when standing from the sitting position. She has had 5?6 ESIs in her neck in the past. She reports a severe pain around her right ear. She reports pressure and sharp stabbing. She states that her pain radiates to the back of her head. She had a buzzing sensation with pain in her ear last week when she was out with her friend for shopping. She has been visiting a therapist. She is still waiting for clearance from her therapist. She had the wrong fax number, which resulted in a delay. Past procedures: 10/22/23: Right diagnostic auricular tem poral and posterior auricular nerve blocks, landmark guided: % relief. 09/23/2023: Sacroiliac Joint Injection, Bilateral: Two days of relief. 09/01/23: Diagnostic Sacroiliac Joint Inj ection, Bilateral: 100 % diagnostic relief. [facility] Medical History (Updated 11/08/23 @ 12:17 by Gil Cortes MD) Lumbar disc disease Depression Overactive bladder Restless leg syndrome Peripheral neuropathy Review of Systems Const All systems reviewed & are unremarkable except as noted in HPI and below Physical Exam Vital Signs: Last Vital Signs Pulse 64 11/08/23 11:16 Resp 12 11/08/23 11:16 BP 119/69 11/08/23 11:16 Pulse Ox 96 11/08/23 11:16 Oxygen Delivery Method Room Air 11/08/23 11:16 General: Appears afebrile. Alert and oriented. Mood and affect appropriate. Follows and participates in conversation appropriately. Respiratory effort is unlabored. Able to transition from sit to stand unassisted. Ambulates with bilaterally normal heel strike and toe off. Results Reviewed Results Reviewed: No imaging is available for review. Assessment & Plan Assessment & Plan (1) Otalgia of right ear: Code(s): H92.01 - Otalgia, right ear (2) Cluneal neuropathy: Code(s): G58.8 - Other specified mononeuropathies (3) Sacroiliac joint dysfunction: Code(s): M53.3 - Sacrococcygeal disorders, not elsewhere classified Plan We will submit a PA for a trial of nerve stimulation once we get clearance from her therapist for her cluneal neuropathy related pain. The appropriate forms were faxed to them today. For her ear pain, she may be a candidate for either high cervical spinal cord stimulation or peripheral nerve stimulation trial. At this time, I would hold off until the lower back pain is addressed, which is the patient?s preference. In the future, we can consider one of these two interventions. Scribed for Dr. Cortes by Canelo Alexandra, biomedical equipment specialist, on 11/08/2023. I, Dr. Cortes, have personally reviewed and agree with the information entered by the scribe. Coding Level of Care Code Est Pt Level 4 (96451) Diagnoses Otalgia of right ear H92.01 Cluneal neuropathy G58.8 Sacroiliac joint dysfunction M53.3
[2023-11-08 11:16] VITALS: BP 119/69; PULSE 64; RESP 12; O2SAT 96
== END 2023-11-08 11:28 | disposition home or self-care (01) ==
PROVIDERS: PCP Internal Medicine; Visit Provider Internal Medicine
DX: H92.01 Otalgia, right ear (principal); G58.8 Other specified mononeuropathies; M53.3 Sacrococcygeal disorders, not elsewhere classified
CPT/HCPCS: 99214

== ENCOUNTER → 2023-11-08 10:52 | Outpatient (BNVA) | payer MEDICAID, SELFPAY | PROVIDERS: PCP Internal Medicine; Visit Provider Internal Medicine | DX: H92.01 Otalgia, right ear (principal); G58.8 Other specified mononeuropathies; M53.3 Sacrococcygeal disorders, not elsewhere classified | CPT/HCPCS: 99212 ==

== ENCOUNTER 2023-12-21 10:55 | Outpatient (REF) | payer MEDICAID, SELFPAY ==
--- NOTE | ~2023-12-21 | MM_ITS ---
EXAMINATION: BONE DENSITOMETRY CLINICAL INDICATION: Menopause. COMPARISON: This is the patient's baseline examination. TECHNIQUE: Using a Zuse DXA System (software version: 13.1) manufactured by [employer], dual-energy x-ray absorptiometry was performed of the lumbar spine and left hip. The images are of good technical quality. Summary results are attached. FINDINGS: LEFT FEMUR, NECK: BMD 0.728 g/cm2, Z-score -1.7, T-score -2.2, osteopenia. LEFT FEMUR, TOTAL: BMD 0.836 g/cm2, Z-score -1.3, T-score -1.4, osteopenia. AP SPINE L1-L2 (excluding L3 and L4): The data of L1-L4 has been changed to exclude the L3 and L4 vertebral bodies, because degenerative sclerosis at these levels may cause overestimation of lumbar spine density. BMD 0.790 g/cm2, Z-score -3.1, T-score -3.1, osteoporosis. IDENTIFIED RISK FACTORS: Early menopause, bilateral oophorectomy, history of fracture (adult), hysterectomy, low calcium intake, osteoporosis, recurrent falls, rheumatoid arthritis, secondary osteoporosis. HISTORY OF FRACTURE: Other. MEDICATIONS: Calcium, vitamin D. MM/XR DEXA axial skeleton IMPRESSION: 1. DIAGNOSIS: Osteoporosis based on the lowest T-score value of -3.1 in the lumbar spine applying World Health Organization criteria. 2. 10-YEAR FRACTURE RISK PREDICTION, FRAX: According to the guidelines, FRAX calculation should only be performed on patients in the osteopenia bone density category. Therefore, FRAX was not performed on this patient. 3. Treatment Recommendations: NOF guidelines recommend consideration for treatment in postmenopausal women and men age 50 and older presenting with the following: -A hip or vertebral (clinical or morphometric) fracture. -T-score less than or equal to -2.5 at the femoral neck or spine after appropriate evaluation to exclude secondary causes. -Low bone mass at the hip or spine and a 10-year fracture probability by FRAX of greater than or equal to 3% for hip fracture or greater than or equal to 20% for major osteoporotic fracture based on the [place] adapted WHO algorithm. 4. Other Recommendations: All treatment decisions require clinical judgment and consideration of individual patient factors, including patient preferences, comorbidities, previous drug use, risk factors not captured in the FRAX model (e.g. frailty, falls, vitamin D deficiency, increased bone turnover, interval significant decline in bone density) and possible under or overestimation of fracture risk by FRAX. Additional medical evaluation for secondary cause of low bone mineral density may be appropriate. FUTURE SCAN RECOMMENDATION: People with diagnosed cases of osteoporosis or at high risk for fracture should have regular bone mineral density tests. For patients eligible for Medicare, routine testing is allowed once every 2 years. The testing frequency can be increased to one year for patients who have rapidly progressing disease, those who are receiving or discontinuing medical therapy to restore bone mass, or have additional risk factors.
== END 2023-12-21 10:56 | disposition home or self-care (01) ==
LOC: HO.MAMMO 10:55
PROVIDERS: PCP Internal Medicine; Visit Provider Internal Medicine
DX: Z12.31 Encounter for screening mammogram for malignant neoplasm of breast (principal); Z13.820 Encounter for screening for osteoporosis; Z78.0 Asymptomatic menopausal state
CPT/HCPCS: 77063; 77067; 77080

== ENCOUNTER → 2023-12-21 11:30 | Outpatient (BNV) | payer MEDICAID, SELFPAY | PROVIDERS: PCP Internal Medicine; Visit Provider Radiology Diagnostic Radiology | DX: Z12.31 Encounter for screening mammogram for malignant neoplasm of breast (principal) | CPT/HCPCS: 77063; 77067 ==

== ENCOUNTER 2024-01-11 13:57 | Outpatient (REF) | payer MEDICAID, SELFPAY ==
[2024-01-21 15:29] LABS: Acetylcholine Recept. Blocking <15 (<15)
[2024-01-27 10:44] LABS: Acetylcholine Receptor Binding <0.30 nmol/L
[2024-02-02 09:44] LABS: Acetylcholine Recep Modulating 28
== END 2024-01-11 13:58 | disposition home or self-care (01) ==
LOC: HO.LAB 13:57
PROVIDERS: PCP Internal Medicine; Visit Provider Registered Nurse
DX: G70.00 Myasthenia gravis without (acute) exacerbation (principal)
CPT/HCPCS: 36415; 86041; 86042; 86043

== ENCOUNTER 2024-02-02 10:53 | Day surgery (SDC) | payer MEDICAID, SELFPAY ==
--- NOTE | 2024-01-31 12:11 | P.CONAN_ITS ---
Documented by User: Hazel Franklin NP 01/31/24 12:12 HPI - Anesthesia Eval Consult details Narrative: 58yo F for Bilateral Cluneal Nerve (Peripheral Nerve Stimulator Trial) PMFSH Active Problems Active Problems: All Active Problems Cluneal neuropathy (Acute) Degeneration of cervical intervertebral disc (Acute) Otalgia of right ear (Acute) Lumbar disc disease (Acute) Lumbar spondylosis (Acute) Sacroiliac joint dysfunction (Acute) Past Medical History Medical History (Updated 02/02/24 @ 11:48 by Yajaira Duarte RN) Hx of pilonidal cyst Degenerative disc disease, cervical Tinnitus of left ear Adenomyosis of uterus Bilateral breast cysts Sleep apnea Short-term memory loss Rheumatoid arthritis Osteoporosis SI (sacroiliac) joint dysfunction Hidradenitis suppurativa Occipital neuralgia Fibromyalgia HTN (hypertension) Lumbar disc disease Depression Overactive bladder Restless leg syndrome Peripheral neuropathy Surgical History Surgical History (Updated 02/02/24 @ 12:12 by Susana Burris) History of gynecologic surgery History of surgery Hx of shoulder surgery H/O laminectomy History of carpal tunnel release of both wrists Hx of elbow surgery Hx of hysterectomy Hx of left knee surgery Hx of arthroscopy of left knee Hx of abdominal surgery H/O LEEP History of intestinal surgery Hx of appendectomy Social History Social History Patient Tobacco Use Status: Former Tobacco user Use of substances other than those prescribed or required for medical reasons: Yes Substance Use Type Other:: medical for 8 yrs Are you DNR?: No Advance Directives: No Advance Directives Information Provided: Yes Meds Allergies Allergy/AdvReac Type Severity Reaction Status Date / Time codeine AdvReac Intermediate Vomiting Verified 02/02/24 12:05 Home Medications ?Medication ?Instructions ?Recorded ?Confirmed ?Last Taken ?Type bupropion HCl 150 mg tablet,12 hr 150 mg PO BID 07/26/23 11/08/23 02/02/24 12:30 History sustained-release calcium carbonate 600 mg PO DAILY 07/26/23 11/08/23 Unknown History cholecalciferol (vitamin D3) 25 25 mcg PO DAILY 07/26/23 11/08/23 Unknown History mcg (1,000 unit) capsule duloxetine 60 mg capsule,delayed mg PO 07/26/23 11/08/23 Unknown History release magnesium 250 mg tablet 500 mg PO DAILY 07/26/23 11/08/23 Unknown History mirabegron 25 mg tablet,extended 25 mg PO DAILY 07/26/23 11/08/23 Unknown History release 24 hr (Myrbetriq) pramipexole 0.125 mg tablet 0.375 mg PO BEDTIME 09/23/23 11/08/23 Unknown History metoprolol succinate 50 mg 50 mg PO DAILY 10/15/23 11/08/23 02/02/24 08:00 History tablet,extended release 24 hr diazepam 2 mg tablet 2 mg PO TID 10/22/23 11/08/23 02/02/24 12:30 History gabapentin 600 mg tablet 600 mg PO BID 10/22/23 11/08/23 02/02/24 12:30 History Exam Narrative Narrative: ECHO 2023 Conclusions: - The left ventricular systolic function is normal. The calculated ejection fraction is 60% by biplane method. - There is moderate calcification of the aortic valve. There is mild aortic valve stenosis. There is mild aortic valve regurgitation. Assessment and Plan Assessment Anesthesia Assessment: Chart Reviewed Documented by User: Ruby Jimenez MD 02/02/24 14:32 [facility] Past Medical History Medical History (Updated 02/02/24 @ 11:48 by Yajaira Duarte RN) Hx of pilonidal cyst Degenerative disc disease, cervical Tinnitus of left ear Adenomyosis of uterus Bilateral breast cysts Sleep apnea Short-term memory loss Rheumatoid arthritis Osteoporosis SI (sacroiliac) joint dysfunction Hidradenitis suppurativa Occipital neuralgia Fibromyalgia HTN (hypertension) Lumbar disc disease Depression Overactive bladder Restless leg syndrome Peripheral neuropathy Family History Family history of problems with anesthesia: No Surgical History Surgical History (Updated 02/02/24 @ 12:12 by Susana Burris) History of gynecologic surgery History of surgery Hx of shoulder surgery H/O laminectomy History of carpal tunnel release of both wrists Hx of elbow surgery Hx of hysterectomy Hx of left knee surgery Hx of arthroscopy of left knee Hx of abdominal surgery H/O LEEP History of intestinal surgery Hx of appendectomy History of Problems with Anesthesia: No Social History Social History Patient Tobacco Use Status: Former Tobacco user Use of substances other than those prescribed or required for medical reasons: Yes Substance Use Type Other:: medical for 8 yrs Are you DNR?: No Advance Directives: No Advance Directives Information Provided: Yes Meds Allergies Allergy/AdvReac Type Severity Reaction Status Date / Time codeine AdvReac Intermediate Vomiting Verified 02/02/24 12:05 Home Medications ?Medication ?Instructions ?Recorded ?Confirmed ?Last Taken ?Type bupropion HCl 150 mg tablet,12 hr 150 mg PO BID 07/26/23 11/08/23 02/02/24 12:30 History sustained-release calcium carbonate 600 mg PO DAILY 07/26/23 11/08/23 Unknown History cholecalciferol (vitamin D3) 25 25 mcg PO DAILY 07/26/23 11/08/23 Unknown History mcg (1,000 unit) capsule duloxetine 60 mg capsule,delayed mg PO 07/26/23 11/08/23 Unknown History release magnesium 250 mg tablet 500 mg PO DAILY 07/26/23 11/08/23 Unknown History mirabegron 25 mg tablet,extended 25 mg PO DAILY 07/26/23 11/08/23 Unknown History release 24 hr (Myrbetriq) pramipexole 0.125 mg tablet 0.375 mg PO BEDTIME 09/23/23 11/08/23 Unknown History metoprolol succinate 50 mg 50 mg PO DAILY 10/15/23 11/08/23 02/02/24 08:00 History tablet,extended release 24 hr diazepam 2 mg tablet 2 mg PO TID 10/22/23 11/08/23 02/02/24 12:30 History gabapentin 600 mg tablet 600 mg PO BID 10/22/23 11/08/23 02/02/24 12:30 History Exam Airway Mallampati Class: II (caps laterally, missing 3 teeth) TM Dist: >3cm Neck ROM: Full Heart: rrr Lungs: cta Assessment and Plan Assessment Anesthesia Assessment: Anesthesia Plan Discussed Final Anesthetic Review Family History of Problems with Anesthesia: No History of Problems with Anesthesia: No NPO: Yes ASA Class: III Final Preanesthetic Review: No Changes in Pt Med Stat, Meds/Allgs Chart Reviewed and Consent Obtained/Reviewed Patient Risk: Low Procedure Risk: Low Anesthetic Plan Anesthetic Plan: MAC: Disposition: Standard PACU
--- NOTE | ~2024-02-02 | FL_ITS ---
EXAMINATION: XR FLUOROSCOPY WITH IMAGES CLINICAL INFORMATION: Cluneal nerve peripheral stimulator trial. COMPARISON: None available. TECHNIQUE: Fluoroscopy Supervised By: Dr. Gil Cortes. Fluoroscopy Time: 45.6 seconds. Cumulative Dose: 31.539 mGy. DAP: 7.468 Gycm2. Images: 2. FINDINGS: Intraoperative fluoroscopy and spot films were performed during a procedure in the OR. 2 leads are present, each overlying the right and left lateral portions of the lump. Please correlate with Dr. Gil Cortes's report for complete details. FL/FL guidance in OR IMPRESSION: Intraoperative fluoroscopy and spot films were obtained. Please see Dr. Gil Cortes's report for complete details.
[2024-02-02 12:06] VITALS: BMI 35.4
[2024-02-02 12:47] VITALS: BP 136/62; PULSE 55; RESP 16; TEMP 36.3; O2SAT 94
[2024-02-02 12:51] LABS: MRSA Nasal PCR NEGATIVE (Negative); SA Nasal PCR NEGATIVE (Negative)
[2024-02-02] MEDS: Lactated Ringers 1,000 ML 100 ML IVCONT (13:02)
--- NOTE | 2024-02-02 15:14 | MHC.SHP ---
Pre-Procedural Eval Section A - 24 Hr Update-Section A only Date of Service: 02/02/24 The patient is an INPATIENT: No Changes since office visit: Yes Patient answered all questions The patient has been examined within 24 hours of the surgical procedure. The History & Physical has been completed within 30 days and I have reviewed it.: No Section B - Complete if H&P > 30 days Chief Complaint: Other specified mononeuropathies Relevant Family History (Specify if Yes): No Relevant Social History: None Present Medications: see Short Stay Collaborative assessment Medical History: No relevant PMH History of Previous Operations: No relevant previous surgery Allergies: Allergies Allergy/AdvReac Type Severity Reaction Status Date / Time codeine AdvReac Intermediate Vomiting Verified 02/02/24 12:05 Review of Systems Sugical H&P ROS: Negative: Constitution, Cardiovascular and Respiratory Exam Surgical H&P Exam: Normal: HEENT, Normal: Heart and Normal: Lungs Plan Diagnosis/Plan: Unchanged I have reviewed the history and physical and performed a pertinent physical examination on my patient. No changes have occurred unless specified. Time Spent With Patient Time: Total time managing care of this patient today ____ minutes.
[2024-02-02 16:28] VITALS: BP 96/36; PULSE 59; RESP 16; TEMP 36.2; O2SAT 94
[2024-02-02 16:43] VITALS: BP 134/56; PULSE 59; RESP 16; O2SAT 96
--- NOTE | 2024-02-02 16:44 | PM.OP ---
Brief Operative Note Date of Service: 02/02/24 Pre-op diagnosis: Cluneal neuropathy, sacroiliac joint related pain Post-op diagnosis: same Procedure: Bilateral medial cluneal nerve stimulation trial lead placement Implants: Curonix PNS trial leads Surgeon: Gil Cortes MD Anesthesia: MAC Was an Surgical Lead used for this Procedure?: No Estimated blood loss (mL): 5 Pathology: none sent Condition: stable Disposition: PACU
--- NOTE | 2024-02-02 16:45 | P.OP_ITS ---
Operative Note Operative Note Date of Service: 02/02/24 Narrative: Percutaneous trial of cluneal nerve stimulation of bilateral After obtaining written consent, pre-procedure blood pressure and heart rate were stable and recorded in the nursing record. Standard monitors were applied. A peripheral IV was started. Antibiotics, cefazolin 2 grams, were given prior to the start of the procedure. The patient was positioned in prone position and sedated by the thread trimmer. The lumbar area was widely prepped with chloraprep and draped in sterile fashion. The skin at the insertion site was anesthetized with 0.5% lidocaine. A small stab was made with a scalpel to allow for easy insertion of the introducer on each side. The introducers were advanced subcutaneously along the length of the lateral margin of the posterior sacral rami in the distribution of the medial cluneal nerve on each side. The electrode arrays were passed through the introducers using a tenting approach at a shallow angle. Fluoroscopy, AP and lateral, was used to confirm appropriate lead position. Stimulation was performed and good coverage was obtained. The lead was secured using benzoin, steri-strips and tegaderms. The patient tolerated the procedure well. No complications were encountered. Following the procedure the patient's vital signs were stable. The patient was discharged home in good condition with post- procedural instructions. Time Out: Immediately prior to the procedure, the following was verbally confirmed that there is a signed consent form and that the correct patient, planned procedure, site and side are consistent with documentation and that necessary equipment and/or blood products are available prior to the start of the case. Complications: none EBL: <5 cc
[2024-02-02 16:55] VITALS: BP 117/48; PULSE 54; RESP 16; TEMP 36.1; O2SAT 96
== END 2024-02-02 17:10 | disposition home or self-care (01) ==
PROVIDERS: Registered Nurse Emergency; PCP Internal Medicine; Visit Provider Internal Medicine
PROC: (CPT 64555; principal; 2024-02-02 12:50)
DX: G58.8 Other specified mononeuropathies (principal); M53.3 Sacrococcygeal disorders, not elsewhere classified; H92.01 Otalgia, right ear
CPT/HCPCS: 64555 ×2; 87640; 87641; C1897; J0690; J2250; J2704; J3010

== ENCOUNTER → 2024-02-02 10:53 | Outpatient (BNV) | payer MEDICAID, SELFPAY | PROVIDERS: PCP Internal Medicine; Visit Provider Internal Medicine | DX: G58.8 Other specified mononeuropathies (principal) | CPT/HCPCS: 63650 ==

== ENCOUNTER 2024-02-07 09:38 | Outpatient (AMB) | payer MEDICAID, SELFPAY ==
--- NOTE | 2024-02-07 09:40 | A.OFFVIS_ITS ---
Vital Signs 02/07/24 09:43 Height 5 ft 3 in Weight 201 lb BMI 35.6 BP 132/72 Blood Pressure Location Rt brachial Position Sitting Pulse 89 Pulse Source Pulse Oximeter Pulse Oximetry (%) 99 Oxygen Delivery Method Room Air Intake Visit Reasons: S/p B/l Cluneal Nerve PNS Trial 02/02/24 Intake Note: Pain today 2/10 [employer] Required: No Accompanied by: Self / Same As Patient Allergies codeine Adverse Reaction (Intermediate, Verified 02/07/24 09:43) Vomiting HPI Comments Details: Patient presents today to assess response to Bilateral medial cluneal nerve stimulation Curonix PNS trial on 02/02/[address] Cortes. Patient reports 80% pain relief for one week of trial with significant improvement in her daily functioning, mobility and sleep. Her daily activities are limited by chronic neck pain, ear and head motion with gait imbalances as well as fibromyalgia. She would like to address her neck pain in the future with high cervical spinal cord stimulation or peripheral nerve stimulation trial. At this time, given good results with Curonix PNS trial, patient would like to proceed with implant. Pain is rated at 2/10 today. Patient denies any untoward effects during one week of trial. Denies any recent cough, cold, infection, fever, any significant changes in her medical history, medications or recent hospitalizations. The tape was removed. The stimulating battery pad was disconnected from the epidural leads. These sites of the insertion were cleansed with ChloraPrep and Steristrips were removed. The epidural leads were removed and the tips were intact.? No erythema, swelling, tenderness or pathological discharge was noted.? Bacitracin ointment, dry sterile and Tegaderm dressing were applied.? Past procedures: 02/02/24: B/L Cluneal Nerve Curonix PNS trial-80% pain relief for 1 week 10/22/23: Right diagnostic auricular temporal and posterior auricular nerve blocks, landmark guided: % relief. 09/23/2023: Sacroiliac Joint Injection, Bilateral: Two days of relief. 09/01/23: Diagnostic Sacroiliac Joint Injection, Bilateral: 100 % diagnostic relief. [facility] Medical History Hx of pilonidal cyst Degenerative disc disease, cervical Tinnitus of left ear Adenomyosis of uterus Bilateral breast cysts Sleep apnea Short-term memory loss Rheumatoid arthritis Osteoporosis SI (sacroiliac) joint dysfunction Hidradenitis suppurativa Occipital neuralgia Fibromyalgia HTN (hypertension) Lumbar disc disease Depression Overactive bladder Restless leg syndrome Peripheral neuropathy Surgical History History of gynecologic surgery History of surgery Hx of shoulder surgery H/O laminectomy History of carpal tunnel release of both wrists Hx of elbow surgery Hx of hysterectomy Hx of left knee surgery Hx of arthroscopy of left knee Hx of abdominal surgery H/O LEEP History of intestinal surgery Hx of appendectomy Social History Patient Tobacco Use Status: Former Tobacco user Review of Systems Const All systems reviewed & are unremarkable except as noted in HPI and below Physical Exam Vital Signs: Last Vital Signs Pulse 89 02/07/24 09:43 BP 132/72 02/07/24 09:43 Pulse Ox 99 02/07/24 09:43 Oxygen Delivery Method Room Air 02/07/24 09:43 BMI result Body Mass Index 35.6 General: Appears afebrile. Alert and oriented. Mood and affect appropriate. Follows and participates in conversation appropriately. Respiratory effort is unlabored. Able to transition from sit to stand unassisted. Ambulates with bilaterally normal heel strike and toe off. Leads removed with tips intact. Results Reviewed Results Reviewed: No imaging is available for review. Assessment & Plan Assessment & Plan (1) Cluneal neuropathy: Code(s): G58.8 - Other specified mononeuropathies Category: Medical (2) Sacroiliac joint dysfunction: Code(s): M53.3 - Sacrococcygeal disorders, not elsewhere classified Category: Medical Plan Schedule for Bilateral Cluneal Nerve Curonix PNS Implant with sedation and fluoroscopy given good relief seen from trial. All questions and concerns have been answered and patient agreed with the plan. Follow up after PNS implant for post op visit and sooner as needed. Justification for interventional therapy: ? Patient with average pain > 6/10 ? Patient has exhausted conservative therapy ? B/L Cluneal Nerve Curonix PNS trial-80% pain relief for 1 week The risks, consequences, alternatives, and benefits of various treatment options were discussed with the patient in great detail, including conservative management, injections and procedures. Coding Level of Care Code Est Pt Level 3 (40233) Diagnoses Cluneal neuropathy G58.8 Sacroiliac joint dysfunction M53.3
[2024-02-07 09:43] VITALS: BP 132/72; PULSE 89; O2SAT 99; BMI 35.6
== END 2024-02-07 09:52 | disposition home or self-care (01) ==
PROVIDERS: PCP Internal Medicine; Visit Provider Nurse Practitioner Family
DX: G58.8 Other specified mononeuropathies (principal); M53.3 Sacrococcygeal disorders, not elsewhere classified
CPT/HCPCS: 99024

== ENCOUNTER → 2024-02-07 09:38 | Outpatient (BNVA) | payer MEDICAID, SELFPAY | PROVIDERS: PCP Internal Medicine; Visit Provider Nurse Practitioner Family | DX: G58.8 Other specified mononeuropathies (principal); M53.3 Sacrococcygeal disorders, not elsewhere classified | CPT/HCPCS: 99212 ==

== ENCOUNTER 2024-02-16 10:55 | Day surgery (SDC) | payer MEDICAID, SELFPAY ==
--- NOTE | ~2024-02-16 | FL_ITS ---
EXAMINATION: XR FLUOROSCOPY WITH IMAGES CLINICAL INFORMATION: Bilateral cluneal nerve stimulator implant. COMPARISON: None available. TECHNIQUE: Fluoroscopy Supervised By: Dr. Gil Cortes. Fluoroscopy Time: 55.8 seconds. Cumulative Dose: 28.947 mGy. DAP: 7.6872 Gycm2. Images: 3. FINDINGS: Intraoperative fluoroscopy and spot films were performed during a procedure in the OR. Probes are seen overlying the lateral sacrum and lateral lumbosacral spine bilaterally. Please correlate with Dr. Gil Cortes's report for complete details. FL/FL guidance in OR IMPRESSION: Intraoperative fluoroscopy and spot films were obtained. Please see Dr. Gil Cortes's report for complete details.
[2024-02-16 11:09] VITALS: BMI 35.0
[2024-02-16 11:16] VITALS: BMI 35.0
[2024-02-16 11:36] VITALS: BP 118/69; PULSE 58; RESP 18; TEMP 35.9; O2SAT 96
--- NOTE | 2024-02-16 11:37 | P.CONAN_ITS ---
[facility] Active Problems Active Problems: All Active Problems Cluneal neuropathy (Acute) Degeneration of cervical intervertebral disc (Acute) Otalgia of right ear (Acute) Lumbar spondylosis (Acute) Sacroiliac joint dysfunction (Acute) Lumbar disc disease (Acute) Past Medical History Medical History Hx of pilonidal cyst Degenerative disc disease, cervical Tinnitus of left ear Adenomyosis of uterus Bilateral breast cysts Sleep apnea Short-term memory loss Rheumatoid arthritis Osteoporosis SI (sacroiliac) joint dysfunction Hidradenitis suppurativa Occipital neuralgia Fibromyalgia HTN (hypertension) Lumbar disc disease Depression Overactive bladder Restless leg syndrome Peripheral neuropathy Functional capacity: independent ambulation Patient : No Family History Family history of problems with anesthesia: No Surgical History Surgical History History of gynecologic surgery History of surgery Hx of shoulder surgery H/O laminectomy History of carpal tunnel release of both wrists Hx of elbow surgery Hx of hysterectomy Hx of left knee surgery Hx of arthroscopy of left knee Hx of abdominal surgery H/O LEEP History of intestinal surgery Hx of appendectomy History of Problems with Anesthesia: No Social History Social History Patient Tobacco Use Status: Former Tobacco user Use of substances other than those prescribed or required for medical reasons: Yes Substance Use Frequency: Daily Are you DNR?: No Advance Directives: No Advance Directives Information Provided: Yes Meds Allergies Allergy/AdvReac Type Severity Reaction Status Date / Time codeine AdvReac Intermediate Vomiting Verified 02/07/24 09:43 Home Medications ?Medication ?Instructions ?Recorded ?Confirmed ?Last Taken ?Type bupropion HCl 150 mg tablet,12 hr 150 mg PO BID 07/26/23 11/08/23 02/02/24 12:30 History sustained-release calcium carbonate 600 mg PO DAILY 07/26/23 11/08/23 Unknown History cholecalciferol (vitamin D3) 25 25 mcg PO DAILY 07/26/23 11/08/23 Unknown History mcg (1,000 unit) capsule magnesium 250 mg tablet 500 mg PO DAILY 07/26/23 11/08/23 Unknown History pramipexole 0.125 mg tablet 0.375 mg PO BEDTIME 09/23/23 11/08/23 Unknown History metoprolol succinate 50 mg 50 mg PO DAILY 10/15/23 11/08/23 02/16/24 06:00 History tablet,extended release 24 hr diazepam 2 mg tablet 2 mg PO TID 10/22/23 11/08/23 02/16/24 10:45 History gabapentin 600 mg tablet 600 mg PO BID 10/22/23 11/08/23 02/02/24 12:30 History cholestyramine (with sugar) 4 gram 1 - 2 ea PO TID 02/07/24 Unknown History powder for susp in a packet duloxetine 30 mg capsule,delayed 30 mg PO DAILY 02/07/24 Unknown History release mirabegron 50 mg tablet,extended 50 mg PO DAILY 02/07/24 Unknown History release 24 hr (Myrbetriq) Exam Height,Weight and Vital Signs: Height 5 ft 3 in Weight 89.528 kg Airway Mallampati Class: III TM Dist: >3cm Neck ROM: Full Heart: RRR Lungs: CTA Assessment and Plan Assessment Anesthesia Assessment: Anesthesia Plan Discussed Final Anesthetic Review Family History of Problems with Anesthesia: No History of Problems with Anesthesia: No NPO: Yes ASA Class: III Final Preanesthetic Review: Meds/Allgs Chart Reviewed, Consent Obtained/Reviewed and Anes Risks/Benef Reviewed Patient Risk: Low Procedure Risk: Low Anesthetic Plan Anesthetic Plan: MAC: Disposition: Standard PACU
[2024-02-16] MEDS: Lactated Ringers 1,000 ML 100 ML IVCONT (11:48)
[2024-02-16 13:03] LABS: MRSA Nasal PCR NEGATIVE (Negative); SA Nasal PCR NEGATIVE (Negative)
--- NOTE | 2024-02-16 14:12 | P.BOP_ITS ---
Brief Operative Note Date of Service: 02/16/24 Pre-op diagnosis: Medial cluneal neuropathy, sacroiliac joint related pain Post-op diagnosis: same Procedure: Bilateral medial cluneal nerve stimulator implant Implants: Curonix PNS system Surgeon: Gil Cortes MD Anesthesia: MAC Was an Setter Cold Rolling Machine used for this Procedure?: No Estimated blood loss (mL): 10 Pathology: none sent Condition: stable Disposition: PACU
--- NOTE | 2024-02-16 14:12 | P.OP_ITS ---
Operative Note Operative Note Date of Service: 02/16/24 Narrative: Peripheral Nerve Stimulator Implant for Middle Cluneal Nerves, Bilateral After obtaining written consent, pre-procedure blood pressure and heart rate were stable and recorded in the nursing record. A peripheral IV was started. Antibiotics, cefazolin 2 g, were given prior to the start of the procedure. The patient was positioned in prone position and sedated by the cash surrender calculator. The thoracolumbar area was widely prepped with chloraprep and draped in sterile fashion. Using fluoroscopy, the needle entry location was estimated on left side of the lumbar area. The skin at the insertion site was anesthetized with a mixture of 0.5% lidocaine and 0.25% ropivacaine.?The skin entry site was incised with a stab incision using a 15 blade and dissected approximately 1 cm deep using a combination of electrocautery and blunt dissection. A 14 gauge epimed needle was used as an introducer and advanced subcutaneously along the length of the lumbar paraspinal muscles until contact was established with the sacrum on both sides. The introducer was then rotated and walked off the edge of the sacrum overlying the medial cluneal nerves. The 1x4 electrode array was passed through the introducer using a tenting approach at a shallow angle. Fluoroscopy was used to confirm appropriate lead position. The rigid stylet was removed and the copper stylet was inserted. The needles were completely removed. Stimulation was performed and good coverage was obtained. The leads were tied down to the tissue at the insertion sites using 0 Tycron sutures. A pocket was then created in the midline in the thoracic spine area approximately 1 cm from the level of the skin. The skin incision was made with a 15 blade followed by a combination of electrocautery and blunt dissection. The leads were tunneled to the pocket site. A single knot was then placed on the leads to secure the copper stylet in place. The excess leads were coiled and tied with 0 silk ties. The coiled portion of the leads was then placed in the pocket. The pocket was then irrigated with vancomycin solution. The midline incision was closed with 2-0 Vicryl. The entry incision sites were closed with 2-0 silk. The incision sites were dressed with Exofin and tegaderm dressings. The patient tolerated the procedure well. No complications were encountered. Following the procedure the patient's vital signs were stable. The patient was discharged home in good condition with post-procedural instructions. Time Out: Immediately prior to the procedure, the following was verbally confirmed that there is a signed consent form and that the correct patient, p lanned procedure, site and side are consistent with documentation and that necessary equipment and/or blood products are available prior to the start of the case. Complications: none EBL: 10 cc
--- NOTE | 2024-02-16 14:12 | MHC.SHP ---
Pre-Procedural Eval Section A - 24 Hr Update-Section A only Date of Service: 02/16/24 The patient is an INPATIENT: No Changes since office visit: Yes Patient answered all questions The patient has been examined within 24 hours of the surgical procedure. The History & Physical has been completed within 30 days and I have reviewed it.: Yes Section B - Complete if H&P > 30 days Chief Complaint: Other specified mononeuropathies Allergies: Allergies Allergy/AdvReac Type Severity Reaction Status Date / Time codeine AdvReac Intermediate Vomiting Verified 02/07/24 09:43 Plan Diagnosis/Plan: Unchanged I have reviewed the history and physical and performed a pertinent physical examination on my patient. No changes have occurred unless specified. Time Spent With Patient Time: Total time managing care of this patient today ____ minutes.
[2024-02-16 16:12] VITALS: BP 107/67; PULSE 76; RESP 16; TEMP 36.4; O2SAT 95
--- NOTE | 2024-02-16 16:24 | HO.POSTANES ---
Post Anesthesia Evaluation Post Anesthesia Evaluation Date of Service: 02/16/24 Vital Signs: Vital Signs Temp Pulse Resp BP Pulse Ox O2 Del Method 02/16/24 16:12 97.5 F 76 16 107/67 95 Room Air 02/16/24 11:36 96.6 F L 58 18 118/69 96 Room Air Anesthesia: General Endotracheal-GETA Mental Status: Awake Pain Control: Satisfactory Nausea/Vomiting: None Hydration: Adequate Anesthesia-Related Issues: No Anes. Related Issues
[2024-02-16 16:27] VITALS: BP 132/43; PULSE 57; RESP 16; O2SAT 96
[2024-02-16 16:42] VITALS: BP 133/58; PULSE 56; RESP 18; TEMP 36.2; O2SAT 98
== END 2024-02-16 17:18 | disposition home or self-care (01) ==
PROVIDERS: Nurse Practitioner Family; PCP Internal Medicine; Visit Provider Internal Medicine
PROC: (CPT 64555; principal; 2024-02-16 13:00)
DX: G58.8 Other specified mononeuropathies (principal); M53.3 Sacrococcygeal disorders, not elsewhere classified; M79.7 Fibromyalgia; G89.29 Other chronic pain; M54.2 Cervicalgia; M06.9 Rheumatoid arthritis, unspecified; M81.0 Age-related osteoporosis without current pathological fracture; I10 Essential (primary) hypertension; Z87.891 Personal history of nicotine dependence
CPT/HCPCS: 64555 ×2; 64590; 87640; 87641; A4364; C1787; C1816; J0690; J1596; J2250; J2704; J2795; J3010

== ENCOUNTER → 2024-02-16 10:55 | Outpatient (BNV) | payer MEDICAID, SELFPAY | PROVIDERS: PCP Internal Medicine; Visit Provider Internal Medicine | DX: G58.8 Other specified mononeuropathies (principal) | CPT/HCPCS: 64555 ==

== ENCOUNTER → 2024-02-18 16:14 | Outpatient (BNVA) | payer MEDICAID, SELFPAY | PROVIDERS: PCP Internal Medicine; Visit Provider Internal Medicine ==

== ENCOUNTER 2024-02-21 09:41 | Outpatient (AMB) | payer MEDICAID, SELFPAY ==
--- NOTE | 2024-02-21 09:42 | MHC.OFFVIS ---
Vital Signs 02/21/24 09:45 Height 5 ft 3 in Weight 199 lb 7 oz BMI 35.3 BP 146/65 H Blood Pressure Location Rt brachial Position Sitting Pulse 99 Pulse Source Pulse Oximeter Pulse Oximetry (%) 98 Oxygen Delivery Method Room Air Intake Visit Reasons: S/p B/l Cluneal PNS Implant 02/16/24 Intake Note: Pain today 4/10 Stubber Required: No Accompanied by: Friend Allergies codeine Adverse Reaction (Intermediate, Verified 02/21/24 09:46) Vomiting HPI Comments Details: Patient presents today to assess response to Bilateral medial cluneal nerve stimulation Curonix PNS implant on 02/16/[address] Cortes. Patient reports about 60% pain relief since procedure with improvement in her daily functioning, mobility and sleep. Her daily activities are limited by chronic neck pain, ear and head motion with gait imbalances as well as fibromyalgia. Patient reports her post-operative pain is mild to moderate. She uses CBD for pain and will trial Tylenol Arthritis. Pain is rated at 4/10 today. Patient denies any untoward effects with implant. Denies any recent cough, cold, infection, fever, any significant changes in her medical history, medications or recent hospitalizations. The tape was removed. The incisional sites were cleansed with ChloraPrep. The upper midline incision has intact skin glue. The two lower incision have sutures intact. No erythema, swelling, redness, erythema, tenderness or pathological discharge was noted.? Bacitracin ointment, dry sterile and Tegaderm dressing were applied.? Past procedures: 02/16/24: B/L Cluneal nerve Curonix PNS implant-60% pain relief at minimal settings 02/02/24: B/L Cluneal Nerve Curonix PNS trial-80% pain relief for 1 week 10/22/23: Right diagnostic auricular temporal and posterior auricular nerve blocks, landmark guided: % relief. 09/23/2023: Sacroiliac Joint Injection, Bilateral: Two days of relief. 09/01/23: Diagnostic Sacroiliac Joint Injection, Bilateral: 100 % diagnostic relief. [facility] Medical History Hx of pilonidal cyst Degenerative disc disease, cervical Tinnitus of left ear Adenomyosis of uterus Bilateral breast cysts Sleep apnea Short-term memory loss Rheumatoid arthritis Osteoporosis SI (sacroiliac) joint dysfunction Hidradenitis suppurativa Occipital neuralgia Fibromyalgia HTN (hypertension) Lumbar disc disease Depression Overactive bladder Restless leg syndrome Peripheral neuropathy Surgical History History of gynecologic surgery History of surgery Hx of shoulder surgery H/O laminectomy History of carpal tunnel release of both wrists Hx of elbow surgery Hx of hysterectomy Hx of left knee surgery Hx of arthroscopy of left knee Hx of abdominal surgery H/O LEEP History of intestinal surgery Hx of appendectomy Social History Patient Tobacco Use Status: Former Tobacco user Review of Systems Const All systems reviewed & are unremarkable except as noted in HPI and below Physical Exam Vital Signs: Last Vital Signs Pulse 99 02/21/24 09:45 BP 146/65 H 02/21/24 09:45 Pulse Ox 98 02/21/24 09:45 Oxygen Delivery Method Room Air 02/21/24 09:45 BMI result Body Mass Index 35.3 General: Appears afebrile. Alert and oriented. Mood and affect appropriate. Follows and participates in conversation appropriately. Respiratory effort is unlabored. Able to transition from sit to stand unassisted. Ambulates with bilaterally normal heel strike and toe off. Three incisional sites are clean, dry, intact, no redness, no swelling, no pathological discharge. Sutures intact. Dressings changed in the offic today. Results Reviewed Results Reviewed: No imaging is available for review. 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 The dressings were changed today in the office. Patient was fitted for customized abdominal belt today by Louis Rhodes. Activity restrictions and precautions were reviewed with patient. Avoid showers. All questions and concerns have been answered and patient agreed with the plan. The patient will follow up in one week for sutures removal and wound check. Coding Level of Care Code Est Pt Level 3 (87366) Diagnoses Cluneal neuropathy G58.8 Sacroiliac joint dysfunction M53.3
[2024-02-21 09:45] VITALS: BP 146/65; PULSE 99; O2SAT 98; BMI 35.3
== END 2024-02-21 10:19 | disposition home or self-care (01) ==
PROVIDERS: PCP Internal Medicine; Visit Provider Nurse Practitioner Family
DX: G58.8 Other specified mononeuropathies (principal); M53.3 Sacrococcygeal disorders, not elsewhere classified
CPT/HCPCS: 99024

== ENCOUNTER → 2024-02-21 09:41 | Outpatient (BNVA) | payer MEDICAID, SELFPAY | PROVIDERS: PCP Internal Medicine; Visit Provider Internal Medicine | DX: G58.8 Other specified mononeuropathies (principal); M53.3 Sacrococcygeal disorders, not elsewhere classified | CPT/HCPCS: 99212 ==

== ENCOUNTER 2024-02-29 09:37 | Outpatient (AMB) | payer MEDICAID, SELFPAY ==
--- NOTE | 2024-02-29 09:38 | A.OFFVIS_ITS ---
Vital Signs 02/29/24 09:42 Height 5 ft 3 in Weight 200 lb 2 oz BMI 35.4 BP 145/65 H Blood Pressure Location Rt brachial Position Sitting Pulse 75 Intake Visit Reasons: S/p B/l Cluneal PNS Implant 02/16/24 Intake Note: Pain today 4/10 Lead Manufacturing Technician Required: No Accompanied by: Friend Allergies codeine Adverse Reaction (Intermediate, Verified 02/29/24 09:43) Vomiting HPI Comments Details: Patient presents today for wound check and sutures removal status post Bilateral medial cluneal nerve stimulation Curonix PNS implant on 02/16/[address] Cortes. Patient reports about 60-70% right side and 100% left side ongoing pain relief since procedure with improvement in her daily functioning, mobility and sleep. Pain is rated at 3-4/10 today for right lower back. Patient denies any untoward effects with implant except overstimulation sensaion on the right. Smita Rhodesx rep was present today and adjusted device setting to provide a better pain coverage for right side. The dressings were removed. The incisional sites were cleansed with ChloraPrep. The upper midline incision has intact skin glue. The two lower incision have sutures intact. No erythema, swelling, redness, erythema, tenderness or pathological discharge was noted.?Sutures were removed, wounds were cleansed again with ChloraPrep. Steri-stripts, Bacitracin ointment, dry sterile and Tegaderm dressing were applied.? Patient reports her daily activities are partially limited by chronic neck pain, ear and head motion with gait imbalances as well as fibromyalgia. We are awaiting records from [facility] for previous procedures and injections for chronic occipital neuralgia. Currently, she uses CBD and Tylenol Arthritis. Denies any recent cough, cold, infection, fever, any significant changes in her medical history, medications or recent hospitalizations. Past procedures: 02/16/24: B/L Cluneal nerve Curonix PNS [id number]% right side and 100% left side pain relief 02/02/24: B/L Cluneal Nerve Curonix PNS trial-80% pain relief for 1 week 10/22/23: Right diagnostic auricular temporal and posterior auricular nerve blocks, landmark guided: % relief. 09/23/23: Sacroiliac Joint Injection, Bilateral: Two days of pain relief. 09/01/23: Diagnostic Sacroiliac Joint Injection, Bilateral: 100 % diagnostic relief. [facility] Medical History Hx of pilonidal cyst Degenerative disc disease, cervical Tinnitus of left ear Adenomyosis of uterus Bilateral breast cysts Sleep apnea Short-term memory loss Rheumatoid arthritis Osteoporosis SI (sacroiliac) joint dysfunction Hidradenitis suppurativa Occipital neuralgia Fibromyalgia HTN (hypertension) Lumbar disc disease Depression Overactive bladder Restless leg syndrome Peripheral neuropathy Surgical History History of gynecologic surgery History of surgery Hx of shoulder surgery H/O laminectomy History of carpal tunnel release of both wrists Hx of elbow surgery Hx of hysterectomy Hx of left knee surgery Hx of arthroscopy of left knee Hx of abdominal surgery H/O LEEP History of intestinal surgery Hx of appendectomy Social History Patient Tobacco Use Status: Former Tobacco user Review of Systems Const All systems reviewed & are unremarkable except as noted in HPI and below Physical Exam Vital Signs: Last Vital Signs Pulse 75 02/29/24 09:42 BP 145/65 H 02/29/24 09:42 BMI result Body Mass Index 35.4 General: Appears afebrile. Alert and oriented. Mood and affect appropriate. Follows and participates in conversation appropriately. Respiratory effort is unlabored. Able to transition from sit to stand unassisted. Ambulates with bilaterally normal heel strike and toe off. Three incisional sites are clean, dry, intact, no redness, no swelling, no pathological discharge. Sutures were removed today. Dressings changed in the office today. Results Reviewed Results Reviewed: No imaging is available for review. 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 The sutures were removed and dressings were changed today in the office. Curonix device settings were adjusted by rep Carmelo today. Patient is wearing abdominal belt. Activity restrictions and precautions were reviewed with patient. Patient may shower in 48 hours. All questions and concerns have been answered and patient agreed with the plan. Follow up as needed. 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
[2024-02-29 09:42] VITALS: BP 145/65; PULSE 75; BMI 35.4
== END 2024-02-29 10:12 | disposition home or self-care (01) ==
PROVIDERS: PCP Internal Medicine; Visit Provider Nurse Practitioner Family
DX: G58.8 Other specified mononeuropathies (principal); M53.3 Sacrococcygeal disorders, not elsewhere classified
CPT/HCPCS: 99213

== ENCOUNTER → 2024-02-29 09:37 | Outpatient (BNVA) | payer MEDICAID, SELFPAY | PROVIDERS: PCP Internal Medicine; Visit Provider Nurse Practitioner Family | DX: G58.8 Other specified mononeuropathies (principal); M53.3 Sacrococcygeal disorders, not elsewhere classified | CPT/HCPCS: 99212 ==

== ENCOUNTER 2024-04-07 09:38 | Outpatient (AMB) | payer MEDICAID, SELFPAY ==
--- NOTE | 2024-04-07 09:48 | A.OFFVIS_ITS ---
Vital Signs 04/07/24 09:49 Height 5 ft 3 in Weight 201 lb BMI 35.6 BP 138/71 Blood Pressure Location Lt brachial Position Sitting Respiration 14 Pulse 76 Pulse Source Pulse Oximeter Pulse Oximetry (%) 95 Oxygen Delivery Method Room Air Intake Visit Reasons: OCCIPITAL NERVE HEADACHES Allergies codeine Adverse Reaction (Intermediate, Verified 04/07/24 09:50) Vomiting Medication List - Last Reconciled 04/07/24 by Natalie Frazier LPN alendronate 70 mg PO QWEEK bupropion HCl SR 150 mg PO BID calcium carbonate 600 mg PO DAILY cholecalciferol (vitamin D3) 25 mcg PO DAILY cholestyramine (with sugar) 4 gram 1 - 2 ea PO TID diazepam 2 mg PO TID duloxetine 30 mg PO DAILY gabapentin 600 mg PO BID magnesium 500 mg PO DAILY metoprolol succinate ER 50 mg PO DAILY mirabegron ER (Myrbetriq) 50 mg PO DAILY omeprazole 20 mg PO BID oxycodone-acetaminophen 5-325 mg 1 tab PO Q8H PRN pramipexole 0.375 mg PO BEDTIME prednisone 15 mg PO DAILY prednisone 20 mg PO DAILY HPI HPI OCCIPITAL NERVE HEADACHES: Details: 58-year-old female who presents today to the office for follow-up regarding multiple issues. For her low back pain, she is doing very well. She reports about 80% relief, with only occasional radiating symptoms, which are very tolerable compared to prior to the stimulator implant. She also complains of occular migraines with double vision that have been recently getting worse. She is scheduled to see Dr. Roberson on Wednesday. She also experiences significant debilitating symptoms with her right occipital neuralgia. She also reports worsening memory issues with short-term forgetfulness. Past procedures: 02/16/24: Peripheral Nerve Stimulator Implant for Middle Cluneal Nerves, Bilateral: 80% relief. 02/02/24: Percutaneous trial of cluneal nerve stimulation of bilateral: % relief. 10/22/23: Right diagnostic auricular temporal and posterior auricular nerve blocks, landmark guided: % relief. 09/23/2023: Sacroiliac Joint Injection, Bilateral: Two days of relief. 09/01/23: Diagnostic Sacroiliac Joint Injection, Bilateral: 100 % diagnostic relief. [facility] Medical History (Updated 04/11/24 @ 15:01 by Gil Cortes MD) Hx of pilonidal cyst Degenerative disc disease, cervical Tinnitus of left ear Adenomyosis of uterus Bilateral breast cysts Sleep apnea Short-term memory loss Rheumatoid arthritis Osteoporosis SI (sacroiliac) joint dysfunction Hidradenitis suppurativa Occipital neuralgia Fibromyalgia HTN (hypertension) Lumbar disc disease Depression Overactive bladder Restless leg syndrome Peripheral neuropathy Surgical History History of gynecologic surgery History of surgery Hx of shoulder surgery H/O laminectomy History of carpal tunnel release of both wrists Hx of elbow surgery Hx of hysterectomy Hx of left knee surgery Hx of arthroscopy of left knee Hx of abdominal surgery H/O LEEP History of intestinal surgery Hx of appendectomy Social History Patient Tobacco Use Status: Former Tobacco user Review of Systems Const All systems reviewed & are unremarkable except as noted in HPI and below Physical Exam Vital Signs: Last Vital Signs Pulse 76 04/07/24 09:49 Resp 14 04/07/24 09:49 BP 138/71 04/07/24 09:49 Pulse Ox 95 04/07/24 09:49 Oxygen Delivery Method Room Air 04/07/24 09:49 BMI result Body Mass Index 35.6 General: Appears afebrile. Alert and oriented. Mood and affect appropriate. Follows and participates in conversation appropriately. Respiratory effort is unlabored. Able to transition from sit to stand unassisted. Ambulates with bilaterally normal heel strike and toe off. She has multiple scars from prior occipital nerve release surgeries. There is tenderness overlying the right occipital region. Results Reviewed Results Reviewed: No imaging is available for review. Assessment & Plan Assessment & Plan (1) Occipital neuralgia: Code(s): M54.81 - Occipital neuralgia Category: Medical (2) Cluneal neuropathy: Code(s): G58.8 - Other specified mononeuropathies Category: Medical Plan For her migraine and memory issues, I encouraged her to discuss with Dr. Roberson. She will let us know after the meeting if he thinks she might benefit from a trial of Botox for her migraines, which are more than 20 per month in frequency. If he agrees with the trial of Botox, then we can plan for Botox injections per the migraine protocol, including injections to the occipital region as part of the protocol, and see if that helps. If she is not deemed a candidate for Botox for migraine, then we can consider a trial of temporary right occipital nerve stimulator placement. Once again, I discussed the various approaches to nerve stimulation and their potential for lack of efficacy. She understands these risks and is willing to proceed since she has debilitating symptoms that have not responded well to multiple different treatment modalities, including surgical release. Scribed for Dr. Cortes by Canelo Alexandra, certified ophthalmic medical technician, on 04/07/2024. I, Dr. Cortes, have personally reviewed and agree with the information entered by the scribe. Coding Level of Care Code Est Pt Level 4 (02229) Diagnoses Occipital neuralgia M54.81 Cluneal neuropathy G58.8
[2024-04-07 09:49] VITALS: BP 138/71; PULSE 76; RESP 14; O2SAT 95; BMI 35.6
== END 2024-04-07 10:08 | disposition home or self-care (01) ==
PROVIDERS: PCP Internal Medicine; Visit Provider Internal Medicine
DX: M54.81 Occipital neuralgia (principal); G58.8 Other specified mononeuropathies
CPT/HCPCS: 99214

== ENCOUNTER → 2024-04-07 09:38 | Outpatient (BNVA) | payer MEDICAID, SELFPAY | PROVIDERS: PCP Internal Medicine; Visit Provider Internal Medicine | DX: M54.81 Occipital neuralgia (principal); G58.8 Other specified mononeuropathies | CPT/HCPCS: 99212 ==

== ENCOUNTER 2024-05-24 09:49 | Outpatient (AMB) | payer MEDICAID, SELFPAY ==
--- NOTE | 2024-05-24 10:08 | MHC.OFFVIS ---
Vital Signs 05/24/24 10:10 Height 5 ft 3 in Weight 200 lb BMI 35.4 BP 167/70 H Blood Pressure Location Rt brachial Position Sitting Respiration 14 Pulse 71 Pulse Source Pulse Oximeter Pulse Oximetry (%) 97 Oxygen Delivery Method Room Air Intake Visit Reasons: occipital nerve block Allergies codeine Adverse Reaction (Intermediate, Verified 06/09/24 10:15) Vomiting Medication List - Last Reconciled 05/24/24 by Natalie Frazier LPN alendronate 70 mg PO QWEEK bupropion HCl SR 150 mg PO BID calcium carbonate 600 mg PO DAILY cholecalciferol (vitamin D3) 25 mcg PO DAILY cholestyramine (with sugar) 4 gram 1 - 2 ea PO TID diazepam 2 mg PO TID duloxetine 30 mg PO DAILY gabapentin 600 mg PO BID magnesium 500 mg PO DAILY metoprolol succinate ER 50 mg PO DAILY mirabegron ER (Myrbetriq) 50 mg PO DAILY omeprazole 20 mg PO BID oxycodone-acetaminophen 5-325 mg 1 tab PO Q8H PRN pramipexole 0.375 mg PO BEDTIME prednisone 15 mg PO DAILY prednisone 20 mg PO DAILY HPI HPI occipital nerve block: Details: 58-year-old female who presents today to the office for occipital nerve block. She has been having occular migraines with double vision which have been recently getting worse. She saw Dr. Roberson, who suggested her to see pain management to discuss Botox injections. She does not drive anymore due to worsening migraines associated with vision issue. She is interested in occipital nerve block today. She takes Tylenol 4 tablets and ibuprofen 4 tablets alternately without much improvement. She has not tried aspirin. She is requesting pain medication. She has been having neck and shoulder pain for which she was given script for PT. She is inquiring if she should do it prior to the procedure. She states her depression and moods have been worsening. She is seeing a therapist. Past procedures: 02/16/24: Peripheral Nerve Stimulator Implant for Middle Cluneal Nerves, Bilateral: 80% relief. 02/02/24: Percutaneous trial of cluneal nerve stimulation of bilateral: % relief. 10/22/23: Right diagnostic auricular temporal and posterior auricular nerve blocks, landmark guided: % relief. 09/23/2023: Sacroiliac Joint Injection, Bilateral: Two days of relief. 09/01/23: Diagnostic Sacroiliac Joint Injection, Bilateral: 100 % diagnostic relief. [facility] Medical History (Updated 04/11/24 @ 15:01 by Gil Cortes MD) Hx of pilonidal cyst Degenerative disc disease, cervical Tinnitus of left ear Adenomyosis of uterus Bilateral breast cysts Sleep apnea Short-term memory loss Rheumatoid arthritis Osteoporosis SI (sacroiliac) joint dysfunction Hidradenitis suppurativa Occipital neuralgia Fibromyalgia HTN (hypertension) Lumbar disc disease Depression Overactive bladder Restless leg syndrome Peripheral neuropathy Surgical History History of gynecologic surgery History of surgery Hx of shoulder surgery H/O laminectomy History of carpal tunnel release of both wrists Hx of elbow surgery Hx of hysterectomy Hx of left knee surgery Hx of arthroscopy of left knee Hx of abdominal surgery H/O LEEP History of intestinal surgery Hx of appendectomy Social History Patient Tobacco Use Status: Former Tobacco user Physical Exam Vital Signs: Last Vital Signs Pulse 71 05/24/24 10:10 Resp 14 05/24/24 10:10 BP 167/70 H 05/24/24 10:10 Pulse Ox 97 05/24/24 10:10 Oxygen Delivery Method Room Air 05/24/24 10:10 BMI result Body Mass Index 35.4 General: Appears afebrile. Alert and oriented. Mood and affect appropriate. Follows and participates in conversation appropriately. Respiratory effort is unlabored. Able to transition from sit to stand unassisted. Ambulates with bilaterally normal heel strike and toe off. Office Procedures Nerve Block Details: Greater Occipital Nerve Block, Right. A physical exam was used to isolate the location of the targeted nerve. The injection site was prepped with alcohol. Using a sterile technique, a 25 gauge 1.5-inch needle was introduced on to the nerve. A total of 3 mL 0.5% ropivacaine was injected around the right greater occipital nerve in a fan-like motion. Aspirations were negative for blood, CSF, and air prior to injection at all sites. The needle was removed, the skin cleansed and a sterile bandage was applied where needed. The patient tolerated the procedure well and no complications were encountered. Following the procedure the patient's vital signs were stable. The patient was discharged home in good condition with post-procedural instructions. Time Out: Immediately prior to the procedure, the following was verbally confirmed that there is a signed consent form and that the correct patient, planned procedure, site and side are consistent with documentation and that necessary equipment and/or blood products are available prior to the start of the case. CPT: 06573-Hmanuye Occipital Procedure code (CPT) selection complete Assessment & Plan Assessment & Plan (1) Occipital neuralgia: Code(s): M54.81 - Occipital neuralgia Category: Medical Plan Patient is status post right-sided occipital nerve block. Patient tolerated procedure well and was discharged home in stable condition with discharge instructions. All questions were answered. May switch from ibuprofen to aspirin and see if this helps with headaches. Will trial temporary right occipital nerve stimulator placement for persistent occipital neuralgia that has not responded to conservative measures as well as surgical release. Discussed the risks and benefits of the procedure with the patient in detail. All questions were answered. The patient is on board with the plan. Scribed for Dr. Cortes by [employer] medical billing and coding instructor, on 05/24/2024. I, Dr. Cortes, have personally reviewed and agree with the information entered by the scribe. Medications: New aspirin 81 mg PO BID 60 tabs 0RF Coding Level of Care Code Est Pt Level 3 (76073) Diagnoses Occipital neuralgia M54.81 CPT Codes Nerve Block - CPT: 87881-Immfocn Occipital ([id number])
[2024-05-24 10:10] VITALS: BP 167/70; PULSE 71; RESP 14; O2SAT 97; BMI 35.4
== END 2024-05-24 10:35 | disposition home or self-care (01) ==
PROVIDERS: PCP Internal Medicine; Referring Provider Internal Medicine; Visit Provider Internal Medicine
DX: M54.81 Occipital neuralgia (principal)
CPT/HCPCS: 64405; 99213

== ENCOUNTER → 2024-05-24 09:49 | Outpatient (BNVA) | payer MEDICAID, SELFPAY | PROVIDERS: PCP Internal Medicine; Visit Provider Internal Medicine | DX: M54.81 Occipital neuralgia (principal) | CPT/HCPCS: 64405; 99212; J2795 ==

== ENCOUNTER 2024-06-09 09:38 | Outpatient (AMB) | payer MEDICAID, SELFPAY ==
--- NOTE | 2024-06-09 10:09 | A.OFFVIS_ITS ---
Vital Signs 06/09/24 10:14 Height 5 ft 3 in Weight 200 lb BMI 35.4 BP 121/57 L Blood Pressure Location Lt brachial Position Sitting Respiration 16 Pulse 71 Pulse Source Pulse Oximeter Pulse Oximetry (%) 100 Oxygen Delivery Method Room Air Intake Visit Reasons: Back Pain Radiating to Left Side Allergies codeine Adverse Reaction (Intermediate, Verified 06/23/24 13:06) Vomiting Medication List - Last Reconciled 06/09/24 by Natalie Frazier LPN alendronate 70 mg PO QWEEK aspirin 81 mg PO BID bupropion HCl SR 150 mg PO BID calcium carbonate 600 mg PO DAILY cholecalciferol (vitamin D3) 25 mcg PO DAILY cholestyramine (with sugar) 4 gram 1 - 2 ea PO TID diazepam 2 mg PO TID duloxetine 30 mg PO DAILY gabapentin 600 mg PO BID magnesium 500 mg PO DAILY metoprolol succinate ER 50 mg PO DAILY mirabegron ER (Myrbetriq) 50 mg PO DAILY omeprazole 20 mg PO BID oxycodone-acetaminophen 5-325 mg 1 tab PO Q8H PRN pramipexole 0.375 mg PO BEDTIME prednisone 15 mg PO DAILY prednisone 20 mg PO DAILY topiramate mg PO HPI HPI Back Pain Radiating to Left Side: Details: 58-year-old female who presents today to the office for back pain radiating to left side. She denies any positive relief after the last round of occipital nerve blocks. She continues to report severe ear pain and pressure. She had a fall on 06/03/2024 when she was coming in the house but lost her balance and hit her head to the screen door. She reports that her pain is localized more in her muscles in the middle and sides. She denies any pain around her surgical site. She reports ankle and back pain since her fall. She has some soreness in her head. She has been experiencing ocular migraine that causes double and blurry vision. She informed her GP about the fall. She is more concerned about her mental state and suspects it is secondary to topiramate that she started last . She has not seen provider for lupus. 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 Past procedures: 05/24/2024: Greater and Lesser Occipital Nerve Block, Right: No relief. 02/16/24: Peripheral Nerve Stimulator Implant for Middle Cluneal Nerves, Bilateral: 80% relief. 02/02/24: Percutaneous trial of cluneal nerve stimulation of bilateral: % relief. 10/22/23: Right diagnostic auricular temporal and posterior auricular nerve blocks, landmark guided: % relief. 09/23/2023: Sacroiliac Joint Injection, Bilateral: Two days of relief. 09/01/23: Diagnostic Sacroiliac Joint Injection, Bilateral: 100 % diagnostic relief. [facility] Medical History Hx of pilonidal cyst Degenerative disc disease, cervical Tinnitus of left ear Adenomyosis of uterus Bilateral breast cysts Sleep apnea Short-term memory loss Rheumatoid arthritis Osteoporosis SI (sacroiliac) joint dysfunction Hidradenitis suppurativa Occipital neuralgia Fibromyalgia HTN (hypertension) Lumbar disc disease Depression Overactive bladder Restless leg syndrome Peripheral neuropathy Surgical History History of gynecologic surgery History of surgery Hx of shoulder surgery H/O laminectomy History of carpal tunnel release of both wrists Hx of elbow surgery Hx of hysterectomy Hx of left knee surgery Hx of arthroscopy of left knee Hx of abdominal surgery H/O LEEP History of intestinal surgery Hx of appendectomy Social History Patient Tobacco Use Status: Former Tobacco user Review of Systems Const All systems reviewed & are unremarkable except as noted in HPI and below Physical Exam Vital Signs: Last Vital Signs Pulse 71 06/09/24 10:14 Resp 16 06/09/24 10:14 BP 121/57 L 06/09/24 10:14 Pulse Ox 100 06/09/24 10:14 Oxygen Delivery Method Room Air 06/09/24 10:14 BMI result Body Mass Index 35.4 General: Appears afebrile. Alert and oriented. Mood and affect appropriate. Follows and participates in conversation appropriately. Respiratory effort is unlabored. Able to transition from sit to stand unassisted. Ambulates with bilaterally normal heel strike and toe off. Results Reviewed Results Reviewed: No imaging is available for review. Assessment & Plan Assessment & Plan (1) Occipital neuralgia: Code(s): M54.81 - Occipital neuralgia Category: Medical (2) Otalgia of right ear: Code(s): H92.01 - Otalgia, right ear Category: Medical Plan For her acute fall related injuries, I recommended that she rest and take medications for pain relief as needed. For her ocular migraine, I recommended she follow up with ophthalmology, or preferably neuro-ophthalmology. For her intractable occipital neuralgia, we will proceed with the occipital nerve stimulator placement on the right side as previously planned. The patient is in agreement with the plan. Scribed for Dr. Cortes by Canelo Alexandra, medical office technology instructor, on 06/09/2024. I, Dr. Cortes, have personally reviewed and agree with the information entered by the scribe. Coding Level of Care Code Est Pt Level 3 (52703) Diagnoses Occipital neuralgia M54.81 Otalgia of right ear H92.01
[2024-06-09 10:14] VITALS: BP 121/57; PULSE 71; RESP 16; O2SAT 100; BMI 35.4
== END 2024-06-09 10:38 | disposition home or self-care (01) ==
PROVIDERS: PCP Internal Medicine; Visit Provider Internal Medicine
DX: M54.81 Occipital neuralgia (principal); H92.01 Otalgia, right ear
CPT/HCPCS: 99213

== ENCOUNTER → 2024-06-09 09:38 | Outpatient (BNVA) | payer MEDICAID, SELFPAY | PROVIDERS: PCP Internal Medicine; Visit Provider Internal Medicine | DX: M54.81 Occipital neuralgia (principal); H92.01 Otalgia, right ear | CPT/HCPCS: 99212 ==

== ENCOUNTER 2024-06-15 06:24 | Outpatient (REF) | payer MEDICAID, SELFPAY | END 2024-06-15 06:25 | disposition home or self-care (01) | LOC: CF 06:24 | PROVIDERS: Visit Provider Internal Medicine | DX: M54.81 Occipital neuralgia (principal); Z45.42 Encounter for adjustment and management of neurostimulator | CPT/HCPCS: 64555; C1778; J2003 ==

== ENCOUNTER 2024-06-15 11:09 | Outpatient (AMB) | payer MEDICAID, SELFPAY ==
--- OUTSIDE RECORDS SUMMARY | 2024-06-15 11:11 | XMS_ITS | Continuity of Care Document ---
Author Organization [facility] Address [address] [place], [place] [address]brandi bhardwaj, [address] [place] [address]- Care Team Providers Care Fruit Cutter Name Role Phone Tito Alvarado MD Primary Care Physician Encounter [facility] Date[facility]s): 10/23/21 - 11/28/21 [facility] [address] [place] [address] Drive, [address] [place] [address]- Attending Physician: Isra Santiago MD Referring Physician: Tito Alvarado MD Allergies, Adverse Reactions, Alerts Substance Reaction Severity Status codeine nausea Active iodinated radiocontrast dyes N/V Active Immunizations Given and Recorded Vaccine Date Status Refusal Reason SARS-CoV-2 (COVID-19) mRNA BNT-162b2 vac 08/21/21 Recorded SARS-CoV-2 (COVID-19) Ad26 vaccine 12/02/20 Given Influenza Virus Vaccine (oldterm) 07/13/20 Recorde d zoster vaccine, inactivated 11/20/18 Recorded zoster vaccine, inactivated 09/17/18 Recorded tetanus/diphtheria/pertussis, acel(Tdap) 06/05/18 Recorded influenza virus vaccine, inactivated 06/05/18 Mars rded influenza virus vaccine, inactivated 06/17/17 Mars rded Medications Calcium 600 +D 1 tablet, By Mouth, Daily at bedtime, 0 Refills, Maintenance, 01/04/20 7:48:00 EDT Start Date: 01/04/20 Status: Ordered Cannabis (Schedule I Substance) 2 puffs, Inhalation, Every 2 hours, PRN as needed for pain, 0 Refills, Maintenance, 04/22/16 14:08:47 EDT Start Date: 04/22/16 Status: Ordered duloxetine 30 mg oral enteric coated capsule 1 capsule = 30 mg, By Mouth, Daily, to be taken with 60mg cap for total daily dose 90mg daily, # 30capsule, 3 Refills, Maintenance, 10/02/21 15:44:00 EST, EC Capsule, [facility] #[id number], Partial fill upon patient request if the prescription... Start Date: 10/02/21 Status: Ordered duloxetine 60 mg oral enteric coated capsule 1 capsule = 60 mg, By Mouth, Daily, fill when patient next requests. To be taken with 30mg cap for total 90mg daily dose, # 30 capsule, 3 Refills, Maintenance, 10/02/21 15:45:00 EST, [facility] #[id number], 163, cm, 08/27/21 9:26:00 EST, Height,... Start Date: 10/02/21 Status: Ordered hydrOXYzine hydrochloride 25 mg oral tablet 1-1.5 tablet, By Mouth, 3 times a day, PRN for anxiety, dose increase, # 60 tablet, 1 Refills, Maintenance, 10/08/21 14:51:00 EST, Tablet, [facility] #[id number], Partial fill upon patient request if the prescription is for a schedule II opioid d... Start Date: 10/08/21 Status: Ordered magnesium oxide 500 mg oral tablet 1 tablet = 500 mg, By Mouth, Daily at bedtime, 0 Refills, Maintenance, 05/21/20 7:47:00 EDT Start Date: 05/21/20 Status: Ordered Myrbetriq 25 mg oral tablet, extended release 1 tablet = 25 mg, By Mouth, Daily at bedtime, Maintenance, 11/20/21 12:16:00 EDT Start Date: 11/20/21 Status: Ordered oxyCODONE 5 mg oral tablet 5 mg, 1, tablet, By Mouth, Every 4 hours, PRN, # 60 tablet, Refills 0, Tot. Refills 0, Maintenance,Pain , Mild, 11/25/21 18:16:00 EDT, Route to Pharmacy Electronically, [facility] #[id number], Partial fill upon patient request if the prescriptio... Start Date: 11/25/21 Status: Ordered Physical Therapy Physical Therapy, See Instructions, # 1 each, Refills 0, Tot. Refills 0, Maintenance, Evaluate and treat bilateral shoulder pain., 06/02/21 10:52:00 EDT, Supply Start Date: 06/02/21 Status: Ordered tiZANidine 4 mg oral tablet 2 mg, 0.5, tablet, By Mouth, 3 times a day, PRN, # 45 tablet, Refills 0, Tot. Refills 0, Maintenance, Spasm, 11/25/21 18:16:00 EDT, Route to Pharmacy Electronically, [facility] #[id number], Partial fill upon patient request if the prescription is... Start Date: 11/25/21 Status: Ordered VESIcare 10 mg oral tablet 1 tablet = 10 mg, By Mouth, Daily at bedtime, Rx by Dr Darleen Garcia (urology) Start Date: 08/13/16 Status: Ordered Vitamin D3 1000 intl units oral tablet 1 tablet = 1,000 International_Units, By Mouth, Daily at bedtime, 0 Refills, Maintenance, 06/14/12 8:11:58 EDT Start Date: 06/14/12 Status: Ordered Problem List Condition Effective Dates Status Health Status Inform ant Anticonvulsant causing adver se effect in therapeutic use: lamotrigine(Confirmed) 1 Active Anticonvulsant causing adver se effect in therapeutic use: zonisamide(Confirmed) 2 Active Anticonvulsant causing adver se effect in therapeutic use: tiagabine(Confirmed) 3 Active Anticonvulsant causing adver se effect in therapeutic use: pregabalin(Confirmed) 4 Active Occipital neuralgia, right ( lesser occipital nerve) >>left(Confirmed) Active Somnolence, daytime(Confirmed) Active Decreased range of motion of shoulder, right(Confirmed) Active Attention and concentration deficit(Confirmed) 5 Active Medical cannabis use(Confirmed) Active Ex-cigarette smoker(Confirmed) Active Urinary, incontinence, stres s female(Confirmed) Active Fibromyalgia(Confirmed) Active Limitation due to disability(Confirmed) 6, 7, 8, 9, 10 Active Foot pain, right: c/w planta r fasciitis(Confirmed) Active Anxiety, generalized(Confirmed) Active Status post bilateral oophorectomy(Confirmed) 2004 Active Status post hysterectomy and bilateral salpingectomy(Confirmed) 2002 Active History of pilonidal cyst; s tatus post 8 to 10 surgeries 2004 to 2011(Confirmed) 1987 Active History of hidradenitis supp urativa, status post 2 perineal surgeries(Confirmed) Active Status post ovarian cystecto my age 17(Confirmed) 1982 Active Status post local excisions of hidradenitis suppurativa(Confirmed) Active Status post abdominal surger ies for adhesions ages 18, 19, & 21(Confirmed) 1983 Active Status post surgery on supra trochclear and greater occipital nerves 04/26/18(Confirmed) 04/26/18 Active Status post right thumb surgery(Confirmed) 11 Active Hidradenitis(Confirmed) Active Hip pain, right appears to b e related to S1 radiculitis(Confirmed) Active Status post carpal tunnel release(Confirmed) 08/13/15 Active Status post arthroscopic kne e surgery: [address] [facility](Confirmed) Active Status post knee surgery, [facility] 05/02/01(Confirmed) 05/02/01 Active Lumbar facet joint pain(Confirmed) Active Lumbar radiculopathy, right(Confirmed) Active Radiculitis, lumbosacral rig ht S1 +/- L5 new 03/2019(Confirmed) 03/2019 Active Mechanical low back pain(Confirmed) Active Median nerve neuropathy, left(Confirmed) Active Myofascial pain, regional(Confirmed) Active Neuropathy, sacral, S1 bilaterally(Confirmed) Active Adverse effect of non-opioid analgesic: memantine(Confirmed) 12, 13 Active Osteopenia(Confirmed) Active Buttock pain, right- at leas t in part related to S1 radiculitis(Confirmed) Active Coccydynia(Confirmed) Active Risk assessment: SOAPP-R(Confirmed) 14 Active Depression, major, recurrent , moderate(Confirmed) Active Recurrent severe major depre ssive disorder with anxiety(Confirmed) Active Abdominal pain, chronic, rig ht lower quadrant; intermittent; duration minutes(Confirmed) Active Risk assessment: Adverse Chi ldhood Experience(Confirmed) 15 Active Shoulder pain, mechanical, right(Confirmed) Active Shoulder pain, left(Confirmed) Active Lack of adequate sleep(Confirmed) Active Heart murmur, systolic, paige ble when recumbent(Confirmed) Active Tinnitus(Confirmed) 05/07/17 Active Word finding problem(Confirmed) Active 1Txt w lamotrigine begun 01/04/20: At 1 x 25 mg at 6 PM & 1 hs (50 mg/day) experienced excessive persistent somnolence. Trial aborted 01/16/20 2Tx w zonisamide begun on 12/27/19.at 50mg hs. On 100mg hs described significant somnolence & trial was aborted on 01/04/20. 3Trial of tiagabine begun 07/02/20. On 2mg QID experienced worsening depression & d/c'd tiagabine 07/16/20. On 07/18 cried all day, subsequently mood returned to baseline. 4Trial of pregabin begun 05/06/21. At 150mg (1) cap bid experienced confusion; felt unsteady on [her] feet; described starting multiple projects at a time; easily distracted; falling asleep before she intends to; as well as memory problems. Did feel that tx was assoc'd w decr pain. 5Adult ADHD self-report scale (ASRS v1.1) symptom checklist: Part A: 4; Part B: 5. on 04/11/18 6Updated Oswestry Disability Index: 48% ( severe disability ); updated [place] Back Pain Disability Scale score: 61; both on 07/02/21 7Updated Oswestry Disability Index: 35% moderate disability , [place] Back Pain Disability Scale: 35and Neck Disability Index: 8 on 06/29/19. 8Updated Oswestry Disability Index: 2% ( minimal disability ) on 06/09/18; updated [place] Back Pain Disability Scale score: 4 on 06/09/18; updated Neck Disability Index: 4% on 06/09/18 9Updated Oswestry Disability Index: 22% ( moderate disability ) on 05/26/17; updated [facility] Back Pain Disability Scale score: 18 on 05/26/17. 10Initial Oswestry Disability Index: 50% ( severe disability ) on 03/31/16; initial Neck Disability Index: 42% ( severe disability ) on 03/31/16; initial [facility] Back Pain Disability Scale score: 46 on 03/31/16. 11On 09/30/17 underwent Tenolysis, right thumb, for Right trigger thumb by Alex Putnam M.D. at [facility] 12Retrial prescribed 12/17/20. On 01/15, at 10mg bid off balance and nearly fell twice. No clear pn reduction. Dose reduced. Trial abandoned 01/22/21. 13Memantine prescribed 01/25/20. With dose escal., pn w neuropathic features over right hip decr/resolved. At 10mg bid, began to experience decr head pn [attrib. to occipital neuralgia] & decr sciatica, but felt tipsy, impaired- would not want to drive and hard to wake up in the morning. Trial abandoned 02/26/20. 14SOAPP-R: 24 on 03/31/2016 15ACE score: 0 on 07/01/17 Social History Social History Type Response Smoking Status Former smoker; Stopp ed at age: 50; entered on: 03/11/17 Sex Female
--- OUTSIDE RECORDS SUMMARY | 2024-06-15 11:11 | XMS_ITS | Continuity of Care Document ---
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 Name Role Phone Tammie FANG, Jo-Ann Primary Care Physician [phone] Encounter [facility] Date(s): 12/26/20 - 01/25/21 [facility] [address] [place] [id number]- Allergies, Adverse Reactions, Alerts Substance Reaction Severity Status codeine nausea Active pentosan polysulfate sodium nausea Active iodinated radiocontrast dyes N/V Active Immunizations Given and Recorded Vaccine Date Status Refusal Reason SARS-CoV-2 (COVID-19) Ad26 vaccine 12/02/20 Given Influenza Virus Vaccine (oldterm) 07/13/20 Recorde d zoster vaccine, inactivated 11/20/18 Recorded zoster vaccine, inactivated 09/17/18 Recorded tetanus/diphtheria/pertussis, acel(Tdap) 06/05/18 Recorded influenza virus vaccine, inactivated 06/05/18 Mars rded Medications Adderall 20 mg oral tablet See Instructions, 1 tab qa.m, 0.5-1 tab midday and 0-1 tab q 4pm., # 84 tablet, 0 Refills, Maintenance, 12/23/20 17:16:00 EDT, [facility] #[id number], DX: F90.0., 1 tab qa.m, 0.5-1 tab midday and 0-1 tab q 4pm., 163, cm, 12/23/20 13:59:00 EDT,... Start Date: 12/23/20 Status: Ordered Calcium 600 +D By Mouth, 0 Refills, Maintenance, 01/04/20 7:48:00 EDT Start Date: 01/04/20 Status: Ordered Cannabis (Schedule I Substance) 0 Refills, Maintenance, 04/22/16 14:08:47 Start Date: 04/22/16 Status: Ordered Controlled Substance Agreement Controlled Substance Agreement, See Instructions, # 1 each, Refills 0, Tot. Refills 0, Maintenance,Updated On: 11/21/2020 Pharmacy I: [facility] DX: mechanical back pain M54.5, occipitalneuralgia M54.81, 11/21/20 8:57:00 EDT, Supply Start Date: 11/21/20 Status: Ordered diazepam 2 mg oral tablet See Instructions, PRN, 0.5 tab po 4 to 5 times per day PRN anxiety, PRN spasms, # 75 tablet, Refills 1, Tot. Refills 1, Maintenance, pain/spams, 12/31/20 14:54:00 EDT, Instructions Replace Required Details, Do Not Route Start Date: 12/31/20 Status: Ordered fentaNYL 50 mcg/hr transdermal film, extended release 1 film, Topically, Every 72 hours, # 10 film, 0 Refills, Maintenance, 01/23/21 12:31:00 EDT, [facility] #[id number], Partial fill upon patient request, 163, cm, 01/22/21 10:35:00 EDT, Height, 64.2, kg, 03/18/19 12:29:00 EDT, Dry Weight Start Date: 01/23/21 Status: Ordered FLUoxetine 20 mg oral capsule 60 mg, 3, capsule, By Mouth, Daily, # 84 capsule, Refills 2, Tot. Refills 2, Maintenance, 12/23/20 17:07:00 EDT, Route to Pharmacy Electronically, [facility] #[id number], 163, cm, 12/23/20 13:59:00 EDT, Height, 64.2, kg, 03/18/19 12:29:00 EDT, . Start Date: 12/23/20 Status: Ordered HYDROmorphone 4 mg oral tablet 1 tablet = 4 mg, By Mouth, 5 times a day, PRN breakthrough pain. STOP hydrocodone/APAP, # 70 tablet, 0 Refills, Maintenance, 01/23/21 12:31:00 EDT, [facility] #[id number], Partial fill upon patient request, 163, cm, 01/22/21 10:35:00 EDT, Height,... Start Date: 01/23/21 Status: Ordered Linzess 72 mcg oral capsule 1 capsule = 72 mcg, By Mouth, Daily, PRN Constipation Start Date: 05/25/19 Status: Ordered magnesium oxide 500 mg oral tablet 1 tablet = 500 mg, By Mouth, Daily, 0 Refills, Maintenance, 05/21/20 7:47:00 EDT Start Date: 05/21/20 Status: Ordered memantine 10 mg oral tablet See Instructions, 0.5 tab po BID x 1 week. Then 0.5 tab qam and 1 tab qhs x 2 weeks. Then 1 tab BID. 28 day supply, # 42 tablet, 0 Refills, Maintenance, 12/23/20 13:04:00 EDT, [facility] #[id number], This NMDA receptor agonist is being used to tr... Start Date: 12/23/20 Status: Ordered memantine 10 mg oral tablet See Instructions, 0.5 tab by mouth in AM, 1 tab at night, # 10 tablet, 0 Refills, Maintenance, 01/15/21 13:41:00 EDT, [facility] #[id number], Partial fill upon patient request if the prescription is for a schedule II opioid drug., 163, cm, ... Start Date: 01/15/21 Status: Ordered Lysite 325 mg-10 mg oral tablet 1 - 1.5 tablets, By Mouth, Every 4 hours, PRN pain.max of 6 tabs/day. 3 day supply pending change of regimen., # 18 tablet, 0 Refills, Maintenance, 01/22/21 17:21:00 EDT, [facility] #[id number],Partial fill upon pt request. DX: M54.81, M54.5, M... Start Date: 01/22/21 Status: Ordered topiramate 100 mg oral tablet 3 tablets, By Mouth, Daily at bedtime, # 84 tablet, 2 Refills, Maintenance, 11/21/20 8:46:00 EDT, [facility] #[id number], 163, cm, 11/21/20 7:51:00 EDT, Height, 64.2, kg, 03/18/19 12:29:00 EDT, Dry Weight Start Date: 11/21/20 Status: Ordered VESIcare 10 mg oral tablet 1 tablet = 10 mg, Daily, TK 1 T PO QD Start Date: 08/13/16 Status: Ordered Vitamin D3 1000 intl units oral tablet 1 tablet = 1,000 International_Units, By Mouth, Daily, 0 Refills, Maintenance, 06/14/12 8:11:58 EDT Start Date: 06/14/12 Status: Ordered Problem List Condition Effective Dates Status Health Status Inform ant Anticonvulsant causing adver se effect in therapeutic use: lamotrigine(Confirmed) 1 Active Anticonvulsant causing adver se effect in therapeutic use: zonisamide(Confirmed) 2 Active Anticonvulsant causing adver se effect in therapeutic use: tiagabine(Confirmed) 3 Active Occipital neuralgia, right ( lesser occipital nerve) >>left(Confirmed) Active Somnolence, daytime; at leas t in part medication treatment related(Confirmed) Active Attention and concentration deficit, treatment associated(Confirmed) 4 Active Medical cannabis use(Confirmed) Active Ex-cigarette smoker(Confirmed) Active Urinary, incontinence, stres s female(Confirmed) Active Limitation due to disability(Confirmed) 5, 6, 7, 8 Active Foot pain, right: c/w planta r fasciitis(Confirmed) Active Anxiety, generalized(Confirmed) Active Status post bilateral oophorectomy(Confirmed) 2004 Active Status post hysterectomy and bilateral salpingectomy(Confirmed) 2002 Active History of pilonidal cyst; s tatus post 8 to 10 surgeries 2004 to 2011(Confirmed) 1986 Active History of hidradenitis supp urativa, status post 2 perineal surgeries(Confirmed) Active Status post ovarian cystecto my age 17(Confirmed) 1982 Active Status post local excisions of hidradenitis suppurativa(Confirmed) Active Status post abdominal surger ies for adhesions ages 18, 19, & 21(Confirmed) 1983 Active Status post surgery on supra trochclear and greater occipital nerves 04/26/18(Confirmed) 04/26/18 Active Status post right thumb surgery(Confirmed) 9 Active Hidradenitis(Confirmed) Active Status post carpal tunnel release(Confirmed) 08/13/15 Active Status post arthroscopic kne e surgery: 2006 & 2008 at [facility](Confirmed) Active Status post knee surgery, [facility] 05/02/01(Confirmed) 05/02/01 Active Lumbar facet joint pain(Confirmed) Active Lumbar radiculopathy, right(Confirmed) Active Radiculitis, lumbosacral rig ht S1 +/- L5 new 03/2019(Confirmed) 03/2019 Active Mechanical low back pain(Confirmed) Active Median nerve neuropathy, left(Confirmed) Active Myofascial pain, regional(Confirmed) Active Neuropathy, sacral, S1 bilaterally(Confirmed) Active Adverse effect of non-opioid analgesic: memantine(Confirmed) 10, 11 Active Osteopenia(Confirmed) Active Buttock pain, right(Confirmed) Active Coccydynia(Confirmed) Active Risk assessment: SOAPP-R(Confirmed) 12 Active Depression, major, recurrent , moderate(Confirmed) Active Abdominal pain, chronic, rig ht lower quadrant; intermittent; lasts minutes(Confirmed) Active Risk assessment: Adverse Chi ldhood Experience(Confirmed) 13 Active Shoulder pain, left(Confirmed) Active Lack of [...] all day, subsequently mood returned to baseline. 4Adult ADHD self-report scale (ASRS v1.1) symptom checklist: Part A: 4; Part B: 5. on 04/11/18 5Updated Oswestry Disability Index: 35% moderate disability , [place] Back Pain Disability Scale: 35and Neck Disability Index: 8 on 06/29/19. 6Updated [place]estry Disability Index: 2% ( minimal disability ) on 06/09/18; updated [place] Back Pain Disability Scale score: 4 on 06/09/18; updated Neck Disability Index: 4% on 06/09/18 7Updated [place]estry Disability Index: 22% ( moderate disability ) on 05/26/17; updated [facility] Back Pain Disability Scale score: 18 on 05/26/17. 8Initial [place] Disability Index: 50% ( severe disability ) on 03/31/16; initial Neck Disability Index: 42% ( severe disability ) on 03/31/16; initial [facility] Back Pain Disability Scale score: 46 on 03/31/16. 9On 09/30/17 underwent Tenolysis, right thumb, for Right trigger thumb by Alex Putnam M.D. at [facility] 10Retrial prescribed 12/17/20. On 01/15, at 10mg bid off balance and nearly fell twice. No clear pn reduction. Dose reduced. Trial abandoned 01/22/21. 11Memantine prescribed 01/25/20. With dose escal., pn w neuropathic features over right hip decr/resolved. At 10mg bid, began to experience decr head pn [attrib. to occipital neuralgia] & decr sciatica, but felt tipsy, impaired- would not want to drive and hard to wake up in the morning. Trial abandoned 02/26/20. 12SOAPP-R: 24 on 03/31/2016 13ACE score: 0 on 07/01/17 Social History Social History Type Response Smoking Status Former smoker; Tobac co user in household: No entered on: 07/07/17 Sex Female
--- OUTSIDE RECORDS SUMMARY | 2024-06-15 11:11 | XMS_ITS | Continuity of Care Document ---
Author Organization [facility] Address [address] [place] [address]- Care Team Providers Care Lens Grinder Rough Name Role Phone Christiano FANG, Tito England Primary Care Physician Encounter [facility] [place] Date(s): 06/04/22 - 07/04/22 [facility] [address] [place], [place] [address] Allergies, Adverse Reactions, Alerts Substance Reaction Severity Status codeine nausea Active iodinated radiocontrast dyes N/V Active Immunizations Given and Recorded Vaccine Date Status Refusal Reason influenza virus vaccine, inactivated 1 06/02/22 Gi laurie influenza virus vaccine, inactivated 06/05/18 Mars rded influenza virus vaccine, inactivated 06/17/17 Mars rded [id number] 12y+ bivalent booster vax 03/27/22 Recorded SARS-CoV-2 (COVID-19) mRNA BNT-162b2 vac 08/21/21 Recorded SARS-CoV-2 (COVID-19) Ad26 vaccine 12/02/20 Given Influenza Virus Vaccine (oldterm) 07/13/20 Recorde d zoster vaccine, inactivated 11/20/18 Recorded zoster vaccine, inactivated 09/17/18 Recorded tetanus/diphtheria/pertussis, acel(Tdap) 06/05/18 Recorded 1Result Comment: [facility]:[id number] Medications AutoASV EPAPmin 8 EPAPmax 12 PSmin 3 PSmax 15 with heated humidification AutoASV EPAPmin 8 EPAPmax 12 PSmin 3 PSmax 15 with heated humidification, See Instructions, # 1 each, Refills 0, Tot. Refills 0, Maintenance, use overnight and naps from [employer], 06/16/22 14:12:00 EDT,Compound Start Date: 06/16/22 Status: Ordered buPROPion 100 mg/12 hours (SR) oral tablet, extended release See Instructions, 1 tab PO daily for 3 days, then increase to 1 tab PO BID thereafter, # 60 tablet,1 Refills, Maintenance, 06/23/22 14:08:00 EDT, ER Tablet, [facility] #[id number], Partial fillupon patient request if the prescription is for a s... Start Date: 06/23/22 Status: Ordered Calcium 600 +D 1 tablet, By Mouth, Daily at bedtime, 0 Refills, Maintenance, 01/04/20 7:48:00 EDT Start Date: 01/04/20 Status: Ordered Cannabis (Schedule I Substance) 2 puffs, Inhalation, Every 2 hours, PRN as needed for pain, 0 Refills, Maintenance, 04/22/16 14:08:47 EDT Start Date: 04/22/16 Status: Ordered Crutches See Instructions, # 2 each, Refills 0, Tot. Refills 0, Maintenance, to be used for ambulation, 06/02/22 11:13:00 EDT, Supply Start Date: 06/02/22 Status: Ordered doxycycline monohydrate 100 mg oral capsule 1 capsule = 100 mg, By Mouth, 2 times a day, # 20 capsule, 0 Refills, Maintenance, 03/16/22 14:48:00 EDT, Capsule, Partial fill upon patient request if the prescription is for a schedule II opioid drug. Start Date: 03/16/22 Stop Date: 03/26/22 Status: Ordered duloxetine 60 mg oral enteric coated capsule 1 capsule = 60 mg, By Mouth, Daily, take with 30mg capsule for total 90mg daily, # 30 capsule, 5 Refills, Maintenance, 03/09/22 11:52:00 EDT, [facility] #[id number], 157.5, cm, 02/09/22 19:12:00EDT, Height, 77, kg, 01/13/22 9:51:00 EDT, Dry Weight Start Date: 03/09/22 Status: Ordered ferrous sulfate 325 mg oral enteric coated tablet 1, tablet, By Mouth, Daily, # 30 tablet, Refills 1, Maintenance, 05/06/22 11:08:00 EDT, Route to Pharmacy Electronically, [facility] #[id number], 157.5, cm, 05/01/22 9:45:00 EDT, Height, 83.4, kg, 05/01/22 9:11:00 EDT, Dry Weight Start Date: 05/06/22 Status: Ordered Home Blood Pressure Monitor See Instructions, # 1 each, Refills 0, Tot. Refills 0, Maintenance, to check blood pressure at [facility], 05/01/22 9:46:00 EDT, Supply Start Date: 05/01/22 Status: Ordered hydrOXYzine hydrochloride 25 mg oral tablet 1 TO 1 AND 1/2 TABLETS, By Mouth, 3 times a day, PRN NEEDED FOR ANXIETY, # 60 tablet, 2 Refills,Maintenance, 05/06/22 11:08:00 EDT, [facility] #[id number], 157.5, cm, 05/01/22 9:45:00 EDT, Height, 83.4, kg, 05/01/22 9:11:00 EDT, Dry Weight Start Date: 05/06/22 Status: Ordered ipratropium nasal 21 mcg/inh spray See Instructions, PRN Nasal Congestion, 1 spray each nostril BID, # 1 each, 4 Refills, Maintenance,06/04/22 11:24:00 EDT, [facility] #[id number], Partial fill upon patient request if the prescription is for a schedule II opioid drug., 1 spray ea... Start Date: 06/04/22 Status: Ordered ipratropium nasal 21 mcg/inh spray USE 1 SPRAY IN EACH NOSTRIL TWICE DAILY NEEDED FOR NASAL CONGESTION Start Date: 06/23/22 Status: Ordered Knee walker scooter rental-for 4 weeks Knee walker scooter rental-for 4 weeks, See Instructions, # 1 each, Refills 0, Tot. Refills 0, Maintenance, to be used for ambulation for left ankle sprain r/o fracture, unable to use crutches due toleft hand surgery complications, 06/23/22 13:54:00... Start Date: 06/23/22 Status: Ordered Left ankle gel or air splint Left ankle gel or air splint, See Instructions, # 1 each, Refills 0, Tot. Refills 0, Maintenance, to be worn on ambulation, 06/02/22 11:16:00 EDT, Supply Start Date: 06/02/22 Status: Ordered Left Tall CAM Walker Boot Left Tall CAM Walker Boot, See Instructions, # 1 each, Refills 0, Tot. Refills 0, Maintenance, to be worn on ambulation, 06/03/22 14:22:00 EDT, Supply Start Date: 06/03/22 Status: Ordered magnesium oxide 500 mg oral tablet 1 tablet = 500 mg, By Mouth, Daily at bedtime, 0 Refills, Maintenance, 05/21/20 7:47:00 EDT Start Date: 05/21/20 Status: Ordered meloxicam 15 mg oral tablet 1 tablet = 15 mg, By Mouth, Daily, # 30 tablet, 0 Refills, Maintenance, 05/01/22 9:15:00 EDT, Tablet, Partial fill upon patient request if the prescription is for a schedule II opioid drug. Start Date: 05/01/22 Status: Ordered Myrbetriq 25 mg oral tablet, extended release 1 tablet = 25 mg, By Mouth, Daily at bedtime, Maintenance, 11/20/21 12:16:00 EDT Start Date: 11/20/21 Status: Ordered Myrbetriq 50 mg oral tablet, extended release TAKE 1 TABLET BY MOUTH EVERY DAY Start Date: 05/01/22 Status: Ordered Oxycodone = 5 mg, By Mouth, Every 4 hours, PRN Pain , Moderate, 0 Refills, Maintenance, 03/18/22 14:40:00 EDT, Partial fill upon patient request if the prescription is for a schedule II opioid drug. Start Date: 03/18/22 Status: Ordered Physical Therapy Physical Therapy, See Instructions, # 1 each, Refills 0, Tot. Refills 0, Maintenance, Evaluate and treat bilateral shoulder pain., 06/02/21 10:52:00 EDT, Supply Start Date: 06/02/21 Status: Ordered pramipexole 0.125 mg oral tablet 3 tablet = 0.375 mg, By Mouth, Daily, 2-3 hours prior to bedtime. dose increase, # 90 tablet, 3 Refills, 06/23/22 14:01:00 EDT, [facility] #[id number], 157.5, cm, 06/23/22 13:25:00 EDT, Height, 81.3, kg, 06/23/22 13:25:00 EDT, Dry Weight Start Date: 06/23/22 Status: Ordered VESIcare 10 mg oral tablet 1 tablet = 10 mg, By Mouth, Daily at bedtime, Rx by Dr Darleen Garcia (urology) Start Date: 08/13/16 Status: Ordered Vitamin D3 1000 intl units oral tablet 1 tablet = 1,000 International_Units, By Mouth, Daily at bedtime, 0 Refills, Maintenance, 06/14/12 8:11:58 EDT Start Date: 06/14/12 Status: Ordered Problem List Condition Confirmation Course Effective Dates Status H ealth Status Informant Anticonvulsant causing adverse effect in therapeutic use: lamotrigine 1 Confirmed Active Anticonvulsant causing adverse effect in therapeutic use: zonisamide 2 Confirmed Active Anticonvulsant causing adverse effect in therapeutic use: tiagabine 3 Confirmed Active Anticonvulsant causing adverse effect in therapeutic use: pregabalin 4 Confirmed Active Occipital neuralgia, right (lesser occipital nerve) >>left Confirmed Active Somnolence, daytime Confirmed Active Attention and concentration deficit 5 Confirmed Active Medical cannabis use Confirmed Active Ex-cigarette smoker Confirmed Active Urinary, incontinence, stress female Confirmed Active Fibromyalgia Confirmed Active Anxiety, generalized Confirmed Active Status post bilateral oophorectomy Confirmed 2003 Active Status post hysterectomy and bilateral salpingectomy Confirmed 2002 Active History of pilonidal cyst; status post 8 to 10 surgeries 2004 to 2011 Confirmed 1986 Active History of hidradenitis suppurativa, status post 2 perineal surgeries Confirmed Active Status post ovarian cystectomy age 17 Confirmed 1982 Active Status post local excisions of hidradenitis suppurativa Confirmed Active Status post abdominal surgeries for adhesions ages 18, 19, & 21 Confirmed 1983 Active Status post surgery on supratrochclear and greater occipital nerves 04/26/18 Confirmed 04/26/18 Active Status post right thumb surgery 6 Confirmed Active Hidradenitis Confirmed Active Hip pain, right appears to be related to S1 radiculitis Confirmed Active Status post carpal tunnel release Confirmed 08/13/15 Active Status post arthroscopic knee surgery: 2006 & 2008 at [facility] Confirmed Active Status post knee surgery, [facility] 05/02/01 Confirmed 05/02/01 Active Lumbar facet joint pain Confirmed Active Lumbar radiculopathy, right Confirmed Active Radiculitis, lumbosacral right S1 +/- L5 new 03/2019 Confirmed 03/2019 Active Median nerve neuropathy, left Confirmed Active Myofascial pain, regional Confirmed Active Neuropathy, sacral, S1 bilaterally Confirmed Active Adverse effect of non-opioid analgesic: memantine 7, 8 Confirmed Active Obese class I Confirmed Active Obstructive sleep apnea 9 Confirmed Active Osteoporosis Confirmed Active Buttock pain, right- at least in part related to S1 radiculitis Confirmed Active Risk assessment: SOAPP-R 10 Confirmed Active Depression, major, recurrent, moderate Confirmed Active Recurrent severe major depressive disorder with anxiety Confirmed Active Abdominal pain, chronic, right lower quadrant; intermittent; duration minutes Confirmed Active Risk assessment: Adverse Childhood Experience 11 Confirmed Active Shoulder pain, mechanical, right Confirmed Active Shoulder pain, left Confirmed Active Tinnitus Confirmed 05/07/17 Active Word finding problem Confirmed Active 1Txt w lamotrigine begun 01/04/20: At [...] A: 4; Part B: 5. on 04/11/18 6On 09/30/17 underwent Tenolysis, right thumb, for Right trigger thumb by Alex Putnam M.D. at [facility] 7Retrial prescribed 12/17/20. On 01/15, at 10mg bid off balance and nearly fell twice. No clear pn reduction. Dose reduced. Trial abandoned 01/22/21. 8Memantine prescribed 01/25/20. With dose escal., pn w neuropathic features over right hip decr/resolved. At 10mg bid, began to experience decr head pn [attrib. to occipital neuralgia] & decr sciatica, but felt tipsy, impaired- would not want to drive and hard to wake up in the morning. Trial abandoned 02/26/20. 9patient reports dx in her 20s, tx with cpap in past 10SOAPP-R: 24 on 03/31/2016 11ACE score: 0 on 07/01/17 Social History Social History Type Response Smoking Status Former smoker; Stopp ed at age: 50; entered on: 03/11/17 Sex Female Patient Care team information Care Team Personnel Name: Sandhya Tsai MD, Cj Reyna Position: [facility] Anesthesiology MD Member Role: Lifetime Consulting Physician Address: Address: [address] [place] [address] [place] [address]- Name: Tito Alvarado MD Position: [facility] Primary Care Physician Member Role: PCP Address: Address: [address] [place] [address] Adult [facility] [place] [address]- Care Team Related Persons Name: BRAYAN VELAZCO Address: [address] [place] [address] Name: NOEL LIZAMA Address: [address] [place] [address] Name: FADY NIELSON Address: [address] [place] [address]
--- OUTSIDE RECORDS SUMMARY | 2024-06-15 11:11 | XMS_ITS | Continuity of Care Document ---
Author Organization [facility] Address [address] [place] [address] [address], [address] [place] [address]- Care Team Providers Care Mobile Manager Name Role Phone Tammie FANG, Jo-Ann Primary Care Physician Encounter [facility] [place] Date(s): 02/05/21 - 03/07/21 [facility] [address] [place] [address] Drive, [address] [place] [address]- Allergies, Adverse Reactions, Alerts Substance Reaction Severity [...] 4pm., # 84 tablet, 0 Refills, Maintenance, 01/29/21 9:17:00 EDT, [facility] #[id number], Please also refill fluoxetine. Thank you!, 1 tab qa.m, 0.5-1 tab midday and 0-1 tab q 4... Start Date: 01/29/21 Status: Ordered Calcium 600 +D By Mouth, [...] Route Start Date: 12/31/20 Status: Ordered fentaNYL 75 mcg/hr transdermal film, extended release 1 film, Topically, Every 48 hours, # 15 film, 0 Refills, Maintenance, 02/04/21 11:19:00 EDT, [facility] #[id number], Partial fill upon patient request, 163, cm, 02/04/21 8:59:00 EDT, Height, 64.2, kg, 03/18/19 12:29:00 EDT, Dry Weight Start Date: 02/04/21 Status: Ordered FLUoxetine 20 mg oral capsule 60 mg, 3, capsule, By Mouth, Daily, # 84 capsule, Refills 2, Tot. Refills 2, Maintenance, 12/23/20 17:07:00 EDT, Route to Pharmacy Electronically, [facility] #[id number], 163, cm, 12/23/20 13:59:00 EDT, Height, 64.2, kg, 03/18/19 12:29:00 EDT, . Start Date: 12/23/20 Status: Ordered HYDROmorphone 4 mg oral tablet 1 tablet = 4 mg, By Mouth, 5 times a day, PRN breakthrough pain. STOP hydrocodone/APAP, # 70 tablet, 0 Refills, Maintenance, 01/23/21 12:31:00 EDT, [facility] #[id number], Partial fill upon patient request, 163, cm, 01/22/21 10:35:00 EDT, Height,... Start Date: 01/23/21 Status: Ordered Linzess 72 mcg oral capsule 1 capsule = 72 mcg, By Mouth, Daily, PRN Constipation Start Date: 05/25/19 Status: Ordered magnesium oxide 500 mg oral tablet 1 tablet = 500 mg, By Mouth, Daily, 0 Refills, Maintenance, 05/21/20 7:47:00 EDT Start Date: 05/21/20 Status: Ordered topiramate 100 mg oral tablet 3 tablets, By Mouth, Daily at bedtime, # 84 tablet, 2 Refills, Maintenance, 11/21/20 8:46:00 EDT, [facility] #[id number], 163, cm, 11/21/20 7:51:00 EDT, Height, 64.2, [...] t in part medication treatment related(Confirmed) Active Decreased range of motion of shoulder, right(Confirmed) Active Attention and concentration deficit, treatment associated(Confirmed) [...] kne e surgery: 2006 & 2008 at [facility](Confirmed) Active Status post knee surgery, [facility] 05/02/01(Confirmed) 05/02/01 Active Lumbar facet joint pain(Confirmed) [...] Chi ldhood Experience(Confirmed) 13 Active Shoulder pain, mechanical, right(Confirmed) Active Shoulder [...] Oswestry Disability Index: 35% moderate disability , [place] Back Pain Disability Scale: 35and Neck Disability Index: 8 on 06/29/19. 6Updated Oswestry Disability Index: 2% ( minimal disability ) on 06/09/18; updated [place] Back Pain Disability Scale score: 4 on 06/09/18; updated Neck Disability Index: 4% on 06/09/18 7Updated Oswestry Disability Index: 22% ( moderate disability ) on 05/26/17; updated [facility] Back Pain Disability Scale score: 18 on 05/26/17. 8Initial Oswestry Disability Index: 50% ( severe disability ) on 03/31/16; initial Neck Disability Index: 42% ( severe disability ) on 03/31/16; initial [place] Back Pain Disability Scale score: 46 on 03/31/16. 9On 09/30/17 underwent Tenolysis, right thumb, for Right trigger thumb by Alex Putnam M.D. at [facility] 10Retrial prescribed 12/17/20. On 01/15, at [...]
--- OUTSIDE RECORDS SUMMARY | 2024-06-15 11:11 | XMS_ITS | Continuity of Care Document ---
Author Organization [facility] Address [address] [place] [id number]- Care Team Providers Care Mail Opener Name Role Phone Tammie FANG, Jo-Ann Primary Care Physician Encounter [facility] [place] Date(s): 03/04/20 - 04/22/20 [place] [address]- [facility] Discharge Disposition: A-D/C Home Attending Physician: Jo-Ann Cho MD Admitting Physician: Jo-Ann Cho MD Referring Physician: Harry Caldwell Allergies, Adverse Reactions, Alerts Substance Reaction Severity Status codeine nausea Active pentosan polysulfate sodium nausea Active iodinated radiocontrast dyes N/V Active Immunizations Given and Recorded Vaccine Date Status Refusal Reason zoster vaccine, inactivated 11/20/18 Recorded zoster vaccine, inactivated 09/17/18 Recorded influenza virus vaccine, inactivated 06/05/18 Mars rded tetanus/diphtheria/pertussis, acel(Tdap) 06/05/18 Recorded Medications Adderall 20 mg oral tablet See Instructions, 1 tab qa.m, 0.5-1 tab midday and 0-1 tab q 4pm., # 84 tablet, 0 Refills, Maintenance, 03/12/20 10:05:00 EDT, [facility] #[id number], DX: F90.0., 1 tab qa.m, 0.5-1 tab midday and 0-1 tab q 4pm., 163, cm, 03/12/20 7:53:00 EDT, H... Start Date: 03/12/20 Status: Ordered Calcium 600 +D By Mouth, 0 Refills, Maintenance, 01/04/20 7:48:00 EDT Start Date: 01/04/20 Status: Ordered Cannabis (Schedule I Substance) 0 Refills, Maintenance, 04/22/16 14:08:47 Start Date: 04/22/16 Status: Ordered diazepam 2 mg oral tablet 0.5 - 1 tablet, By Mouth, Every 4 hours, PRN, # 112 tablet, Refills 1, Tot. Refills 1, Maintenance,pain/spams, 02/27/20 12:28:00 EDT, Route to Pharmacy Electronically, [facility] #[id number], 163, cm, 02/27/20 7:51:00 EDT, Height, 64.2, kg, 02/21... Start Date: 02/27/20 Status: Ordered diclofenac 1% topical gel = 2 Gm, Topically, 4 times a day, 0 Refills, Maintenance, 03/12/20 7:48:00 EDT Start Date: 03/12/20 Status: Ordered duloxetine 20 mg oral enteric coated capsule 2 capsule = 40 mg, By Mouth, Daily, Please alert pt to change in capsule strength, # 56 capsule, 4 Refills, Maintenance, 03/12/20 16:17:00 EDT, [facility] #[id number], Replaces 40mg caps which her plan excludes., 163, cm, 03/12/20 7:53:00 EDT, He... Start Date: 03/12/20 Status: Ordered duloxetine 60 mg oral enteric coated capsule 1 capsule, By Mouth, Daily, TO BE TAKEN WITH 40 MG CAPSULE FOR TOTAL DAILY DOSE OF 100MG, # 28 capsule, 5 Refills, Maintenance, 02/12/20 10:25:00 EDT, [facility] #[id number], 163, cm, 01/25/20 7:56:00 EDT, Height, 64.2, kg, 03/18/19 12:29:00 EDT,... Start Date: 02/12/20 Status: Ordered KETAMINE 80MG CAPSULE KETAMINE 80MG CAPSULE, See Instructions, # 90 capsule, Refills 5, Tot. Refills 5, Maintenance, 1 cap po up to TID PRN moderately severe pain. DX: occipital neuralgia (M54.81), 04/17/20 12:59:00 EDT, Supply Start Date: 04/17/20 Status: Ordered Linzess 72 mcg oral capsule 1 capsule = 72 mcg, By Mouth, Daily, PRN Constipation Start Date: 05/25/19 Status: Ordered [place] 325 mg-10 mg oral tablet 1 - 1.5 tablets, By Mouth, Every 4 hours, PRN pain.max of 6 tabs/day., # 84 tablet, 0 Refills, Maintenance, 03/12/20 10:05:00 EDT, [facility] #[id number], Partial fill upon pt request. DX: M54.81, M54.5, M54.17, 1 - 1.5 tablets By Mouth Every 4 h... Start Date: 03/12/20 Status: Ordered topiramate 100 mg oral tablet 3 tablets, By Mouth, Daily at bedtime, # 84 tablet, 2 Refills, Maintenance, 03/12/20 8:07:00 EDT, [facility] #[id number], 163, cm, 03/12/20 7:53:00 EDT, Height, 64.2, kg, 03/18/19 12:29:00 EDT, Dry Weight Start Date: 03/12/20 Status: Ordered VESIcare 10 mg oral tablet 0.5 tab, Daily, TK 1 T PO QD Start [...] effect in therapeutic use: zonisamide(Confirmed) 2 Active Occipital neuralgia, right ( lesser occipital nerve) >>left(Confirmed) Active Somnolence, daytime; at leas t in part medication treatment related(Confirmed) Active Medical cannabis use(Confirmed) Active Ex-cigarette smoker(Confirmed) Active Urinary, incontinence, stres s female(Confirmed) Active Limitation due to disability(Confirmed) 3, 4, 5, 6 Active Anxiety, generalized(Confirmed) Active Status post bilateral [...] 04/26/18 Active Status post right thumb surgery(Confirmed) 7 Active Hidradenitis(Confirmed) Active Hip pain, right(Confirmed) Active Status post carpal tunnel release(Confirmed) 08/13/15 Active Status post arthroscopic kne e surgery: 2006 & 2008 at [facility](Confirmed) Active Status post knee surgery, [facility] 05/02/01(Confirmed) 05/02/01 Active Lumbar facet joint pain(Confirmed) Active Lumbar radiculopathy, right(Confirmed) Active Radiculitis, lumbosacral rig ht S1 +/- L5 new 03/2019(Confirmed) 03/2019 Active Mechanical low back pain(Confirmed) Active Median nerve neuropathy, left(Confirmed) Active Myofascial pain, regional(Confirmed) Active Neuropathy, sacral, S1 bilaterally(Confirmed) Active Adverse effect of non-opioid analgesic: memantine(Confirmed) 8 Active Osteopenia(Confirmed) Active Buttock pain, right(Confirmed) Active Risk assessment: SOAPP-R(Confirmed) 9 Active Abdominal pain, chronic, rig ht lower quadrant; intermittent; lasts minutes(Confirmed) Active Risk assessment: Adverse Chi ldhood Experience(Confirmed) 10 Active Decreased range of motion of left shoulder(Confirmed) Active Shoulder pain, left(Confirmed) Active Lack of adequate sleep(Confirmed) Active Abdominal cramping(Confirmed) Active Heart murmur, systolic, paige ble when recumbent(Confirmed) Active Tinnitus(Confirmed) 05/07/17 Active Word finding problem(Confirmed) Active 1Txt w lamotrigine begun 01/04/20: At 1 x 25 mg at 6 PM & 1 hs (50 mg/day) experienced excessive persistent somnolence. Trial aborted 01/16/20 2Tx w zonisamide begun on 12/27/19.at 50mg hs. On 100mg hs described significant somnolence & trial was aborted on 01/04/20. 3Updated Oswestry Disability Index: 35% moderate disability , [place] Back Pain Disability Scale: 35and Neck Disability Index: 8 on 06/29/19. 4Updated Oswestry Disability Index: 2% ( minimal disability ) on 06/09/18; updated [place] Back Pain Disability Scale score: 4 on 06/09/18; updated Neck Disability Index: 4% on 06/09/18 5Updated Oswestry Disability Index: 22% ( moderate disability ) on 05/26/17; updated [facility] Back Pain Disability Scale score: 18 on 05/26/17. 6Initial Oswestry Disability Index: 50% ( severe disability ) on 03/31/16; initial Neck Disability Index: 42% ( severe disability ) on 03/31/16; initial [facility] Back Pain Disability Scale score: 46 on 03/31/16. 7On 09/30/17 underwent Tenolysis, right thumb, for Right trigger thumb by Alex Putnam M.D. at [facility] 8Memantine prescribed 01/25/20. With dose escal., pn w neuropathic features over right hip decr/resolved. At 10mg bid, began to experience decr head pn [attrib. to occipital neuralgia] & decr sciatica, but felt tipsy, impaired- would not want to drive and hard to wake up in the morning. Trial abandoned 02/26/20. 9SOAPP-R: 24 on 03/31/2016 10ACE score: 0 on 07/01/17 Social History Social History Type Response Smoking Status Former smoker; Tobac co user in household: No entered on: 07/07/17 Sex Female
--- OUTSIDE RECORDS SUMMARY | 2024-06-15 11:11 | XMS_ITS | Continuity of Care Document ---
Author Organization [facility] Address [address] [place] [address]- Care Team Providers Care Glove Sewer Name Role Phone Christiano FANG, Tito England Primary Care Physician Encounter [facility] Date(s): 06/10/22 - 07/10/22 [facility] [address] [place], [place] [address] Allergies, Adverse Reactions, Alerts Substance Reaction Severity Status codeine nausea Active iodinated radiocontrast dyes N/V Active Immunizations Given and Recorded Vaccine Date Status Refusal Reason influenza virus vaccine, inactivated 1 06/02/22 Gi laurie influenza virus vaccine, inactivated 06/05/18 Mars rded influenza virus vaccine, inactivated 06/17/17 Mars rded [id number] 12y+ bivalent booster vax 03/27/22 Recorded SARS-CoV-2 (COVID-19) mRNA BNT-162b2 vac 08/21/21 Recorded SARS-CoV-2 (COVID-19) Ad26 vaccine 12/02/20 Given Influenza Virus Vaccine (oldterm) 07/13/20 Recorde d zoster vaccine, inactivated 11/20/18 Recorded zoster vaccine, inactivated 09/17/18 Recorded tetanus/diphtheria/pertussis, acel(Tdap) 06/05/18 Recorded 1Result Comment: [facility]:[id number] Medications AutoASV EPAPmin 8 EPAPmax 12 PSmin [...] Refills, Maintenance, 06/23/22 14:08:00 EDT, ER Tablet, [facility] #[id number], Partial fillupon patient request if the prescription [...] capsule, 5 Refills, Maintenance, 03/09/22 11:52:00 EDT, [email or web address] #[id number], 157.5, cm, 02/09/22 19:12:00EDT, Height, 77, kg, 01/13/22 9:51:00 EDT, Dry Weight Start Date: 03/09/22 Status: Ordered ferrous sulfate 325 mg oral enteric coated tablet 1, tablet, By Mouth, Daily, # 30 tablet, Refills 1, Maintenance, 05/06/22 11:08:00 EDT, Route to Pharmacy Electronically, [facility] #[id number], 157.5, cm, 05/01/22 9:45:00 EDT, Height, 83.4, [...] 60 tablet, 2 Refills,Maintenance, 05/06/22 11:08:00 EDT, [facility] #[id number], 157.5, cm, 05/01/22 9:45:00 EDT, Height, 83.4, kg, 05/01/22 9:11:00 EDT, Dry Weight Start Date: 05/06/22 Status: Ordered ipratropium nasal 21 mcg/inh spray See Instructions, PRN Nasal Congestion, 1 spray each nostril BID, # 1 each, 4 Refills, Maintenance,06/04/22 11:24:00 EDT, [facility] #[id number], Partial fill upon patient request if the [...] 90 tablet, 3 Refills, 06/23/22 14:01:00 EDT, [facility] #[id number], 157.5, cm, 06/23/22 13:25:00 EDT, Height, 81.3, [...] arthroscopic knee surgery: 2006 & 2008 at [facility] Confirmed Active Status post knee surgery, [facility] 05/02/01 Confirmed 05/02/01 Active Lumbar facet joint [...] trigger thumb by Alex Putnam M.D. at [facility] 7Retrial prescribed 12/17/20. On 01/15, at 10mg [...] Name: Sandhya Tsai MD, Cj Reyna Position: [facility] Anesthesiology MD Member Role: Lifetime Consulting Physician Address: Address: [address] [place] [address] [place] [address]- Name: Tito Alvarado MD Position: [facility] Primary Care Physician Member Role: PCP Address: Address: [address] [place] [address] Adult & [place] [address]- Care Team Related Persons Name: BRAYAN VELAZCO Address: home [address] [place] [address] Name: NOEL LIZAMA Address: home [address] [place] [address] Name: FADY NIELSON Address: home [address] [place] [address]
--- OUTSIDE RECORDS SUMMARY | 2024-06-15 11:11 | XMS_ITS | Continuity of Care Document ---
Author Organization [facility] Address [address] [place] [address]- Care Team Providers Care Gas Adjuster Name Role Phone Christiano FANG, Tito England Primary Care Physician Encounter [facility] Date(s): 08/05/22 - 09/04/22 [facility] [address] [place], [place] [address] Allergies, Adverse Reactions, Alerts Substance Reaction Severity Status codeine nausea Active iodinated radiocontrast dyes N/V Active Immunizations Given and Recorded Vaccine Date Status Refusal Reason influenza virus vaccine, inactivated 1 06/02/22 Gi laurie influenza virus vaccine, inactivated 06/05/18 Mars rded influenza virus vaccine, inactivated 06/17/17 Mars rded [id number] 12y+ bivalent booster vax 03/27/22 Recorded SARS-CoV-2 (COVID-19) mRNA BNT-162b2 vac 08/21/21 Recorded SARS-CoV-2 (COVID-19) Ad26 vaccine 12/02/20 Given Influenza Virus Vaccine (oldterm) 07/13/20 Recorde d zoster vaccine, inactivated 11/20/18 Recorded zoster vaccine, inactivated 09/17/18 Recorded tetanus/diphtheria/pertussis, acel(Tdap) 06/05/18 Recorded 1Result Comment: [facility]:[id number] Medications Aerochamber w/Mask (Large) See Instructions, # 1 each, Maintenance, to be used with flovent and albuterol, 08/07/22 10:38:00 EST, Supply, 157.5, cm, 08/07/22 10:17:00 EST, Height, 82.8, kg, 08/07/22 10:17:00 EST, Dry Weight Start Date: 08/07/22 Status: Ordered albuterol CFC free 90 mcg/inh inhalation aerosol 2, puffs, Inhalation, Every 4 hours, PRN, use with spacer chamber, # 1 each, Refills 0, Tot. Refills 0, Maintenance, 08/07/22 10:38:00 EST, Aerosol, Route to Pharmacy Electronically, [id number], [facility] #[id number], 1... Start Date: 08/07/22 Status: Ordered AutoASV EPAPmin 8 EPAPmax 12 PSmin 3 [...] Refills, Maintenance, 06/23/22 14:08:00 EDT, ER Tablet, [facility] #[id number], Partial fillupon patient request if the prescription [...] 03/16/22 Stop Date: 03/26/22 Status: Ordered duloxetine 30 mg oral enteric coated capsule 1 capsule, By Mouth, Daily, # 30 capsule, 5 Refills, 08/14/22 12:55:00 EST, [facility] #[id number], 157.5, cm, 08/07/22 10:53:00 EST, Height, 82.8, kg, 08/07/22 10:17:00 EST, Dry Weight Start Date: 08/14/22 Status: Ordered duloxetine 60 mg oral enteric coated capsule 1 capsule = 60 mg, By Mouth, Daily, take with 30mg capsule for total 90mg daily, # 30 capsule, 5 Refills, Maintenance, 03/09/22 11:52:00 EDT, [facility] #[id number], 157.5, cm, 02/09/22 19:12:00EDT, Height, 77, kg, 01/13/22 9:51:00 EDT, Dry Weight Start Date: 03/09/22 Status: Ordered ferrous sulfate 325 mg oral enteric coated tablet 1, tablet, By Mouth, Daily, # 30 tablet, Refills 1, Maintenance, 05/06/22 11:08:00 EDT, Route to Pharmacy Electronically, [facility] #[id number], 157.5, cm, 05/01/22 9:45:00 EDT, Height, 83.4, kg, 05/01/22 9:11:00 EDT, Dry Weight Start Date: 05/06/22 Status: Ordered Flovent HFA 110 mcg/inh inhalation aerosol 1 puffs, Inhalation, 2 times a day, rinse mouth and throat after use, # 1 each, 2 Refills, Maintenance, 08/07/22 10:36:00 EST, Aerosol, [facility] #[id number], Partial fill upon patient request if the prescription is for a schedule II opioid drug... Start Date: 08/07/22 Status: Ordered Home Blood Pressure Monitor See Instructions, # 1 each, Refills 0, Tot. Refills 0, Maintenance, to check blood pressure at [facility], 05/01/22 9:46:00 EDT, Supply Start Date: 05/01/22 Status: Ordered hydrOXYzine hydrochloride 25 mg oral tablet 1 TO 1 AND 1/2 TABLETS, By Mouth, 3 times a day, PRN NEEDED FOR ANXIETY, # 60 tablet, 2 Refills,Maintenance, 05/06/22 11:08:00 EDT, [facility] #[id number], 157.5, cm, 05/01/22 9:45:00 EDT, Height, 83.4, kg, 05/01/22 9:11:00 EDT, Dry Weight Start Date: 05/06/22 Status: Ordered ipratropium nasal 21 mcg/inh spray See Instructions, PRN Nasal Congestion, 1 spray each nostril BID, # 1 each, 4 Refills, Maintenance,06/04/22 11:24:00 EDT, [facility] #[id number], Partial fill upon patient request if the [...] EVERY DAY Start Date: 05/01/22 Status: Ordered omeprazole 20 mg oral delayed release tablet 1 tablet = 20 mg, By Mouth, Daily, # 30 tablet, 1 Refills, Maintenance, 09/02/22 23:37:00 EST, CR Tablet, [facility] #[id number], Partial fill upon patient request if the prescription is for a schedule II opioid drug., 157.5, cm, 08/07/22 10:53:0... Start Date: 09/02/22 Status: Ordered Oxycodone = 5 mg, By [...] 90 tablet, 3 Refills, 06/23/22 14:01:00 EDT, [facility] #[id number], 157.5, cm, 06/23/22 13:25:00 EDT, Height, 81.3, [...] arthroscopic knee surgery: 2006 & 2008 at [facility] Confirmed Active Status post knee surgery, [facility] 05/02/01 Confirmed 05/02/01 Active Lumbar facet [...] trigger thumb by Alex Putnam M.D. at [facility] 7Retrial prescribed 12/17/20. On 01/15, [...] Name: Sandhya Tsai MD, Cj Reyna Position: [facility] Anesthesiology MD Member Role: Lifetime Consulting Physician Address: Address: [address] [place] [address] [place] [address]- Name: Christiano FANG, Tito England Position: [facility] Primary Care Physician Member Role: PCP Address: Address: [address] [place] [address] Adult & [place] [address]- Care Team Related Persons Name: BRAYAN VELAZCO Address: home [address] [place] [address] Name: NOEL LIZAMA Address: [address] [place] [address] Name: FADY NIELSON Address: [address] [place] [address]
--- OUTSIDE RECORDS SUMMARY | 2024-06-15 11:11 | XMS_ITS | Continuity of Care Document ---
Author Organization [facility] Address [address] [place] [address]- Care Team Providers Care Exhaust And Muffler Fitter Name Role Phone Tito Alvarado MD Primary Care Physician [id number] Date(s): 12/07/22 - 12/14/22 [facility] [address] [place], [place] [address] Encounter Diagnosis Occipital neuralgia, right (lesser occipital nerve) >>left(Discharge Diagnosis) - 12/07/22 Severe episode of recurrent major depressive disorder, without psychotic features(Discharge Diagnosis) - 12/07/22 Hypertension(Discharge Diagnosis) - 12/07/22 Fibromyalgia(Discharge Diagnosis) - 12/07/22 Sweating profusely(Discharge Diagnosis) - 12/07/22 Attending Physician: Tito Alvarado MD Allergies, Adverse Reactions, Alerts Substance Reaction Severity Status codeine nausea Active iodinated radiocontrast dyes N/V Active Immunizations Given and Recorded Vaccine Date Status Refusal Reason influenza virus vaccine, inactivated 1 06/02/22 Gi laurie influenza virus vaccine, inactivated 06/05/18 Mars rded influenza virus vaccine, inactivated 06/17/17 Mars rded [id number] 12y+ bivalent booster vax 03/27/22 Recorded SARS-CoV-2 (COVID-19) mRNA BNT-162b2 vac 08/21/21 Recorded SARS-CoV-2 (COVID-19) Ad26 vaccine 12/02/20 Given Influenza Virus Vaccine (oldterm) 07/13/20 Recorde d zoster vaccine, inactivated 11/20/18 Recorded zoster vaccine, inactivated 09/17/18 Recorded tetanus/diphtheria/pertussis, acel(Tdap) 06/05/18 Recorded 1Result Comment: [facility]:[id number] Medications AutoASV EPAPmin 8 EPAPmax 12 PSmin 3 PSmax 15 with heated humidification AutoASV EPAPmin 8 EPAPmax 12 PSmin 3 PSmax 15 with heated humidification, See Instructions, # 1 each, Refills 0, Tot. Refills 0, Maintenance, use overnight and naps from [facility], 06/16/22 14:12:00 EDT,Compound Start Date: 06/16/22 Status: Ordered buPROPion 100 mg/12 hours (SR) oral tablet, extended release 1 tablet, By Mouth, 2 times a day, # 60 tablet, 2 Refills, Maintenance, 10/30/22 15:04:00 EST, [facility] #[id number], 157.5, cm, 08/07/22 10:53:00 EST, Height, 87, kg, 10/14/22 11:44:00 EST, Dry Weight Start Date: 10/30/22 Status: Ordered buPROPion 150 mg/12 hours (SR) oral tablet, extended release 1 tablet = 150 mg, By Mouth, 2 times a day, dose increase, # 60 tablet, 3 Refills, Maintenance, 11/10/22 10:38:00 EDT, ER Tablet, [facility] #[id number], Partial fill upon patient request if theprescription is for a schedule II opioid drug., 157... Start Date: 11/10/22 Status: Ordered Calcium 600 +D 1 tablet, [...] 30 capsule, 5 Refills, 08/14/22 12:55:00 EST, [facility] #[id number], 157.5, cm, 08/07/22 10:53:00 EST, Height, 82.8, kg, 08/07/22 10:17:00 EST, Dry Weight Start Date: 08/14/22 Status: Ordered duloxetine 60 mg oral enteric coated capsule 1 capsule = 60 mg, By Mouth, Daily, take with 30mg capsule for total 90mg daily, # 30 capsule, 5 Refills, Maintenance, 03/09/22 11:52:00 EDT, [facility] #[id number], 157.5, cm, 02/09/22 19:12:00EDT, Height, 77, kg, 01/13/22 9:51:00 EDT, Dry Weight Start Date: 03/09/22 Status: Ordered ferrous sulfate 325 mg oral enteric coated tablet 1, tablet, By Mouth, Daily, # 30 tablet, Refills 1, Maintenance, 05/06/22 11:08:00 EDT, Route to Pharmacy Electronically, [facility] #[id number], 157.5, cm, 05/01/22 9:45:00 EDT, Height, 83.4, kg, 05/01/22 9:11:00 EDT, Dry Weight Start Date: 05/06/22 Status: Ordered gabapentin 100 mg oral capsule 100 mg, 1, capsule, By Mouth, 3 times a day, # 90 capsule, Refills 1, Tot. Refills 1, Maintenance, 12/07/22 11:26:00 EDT, Route to Pharmacy Electronically, [facility] #[id number], Partial fill upon patient request if the prescription is for a armond... Start Date: 12/07/22 Status: Ordered hydrOXYzine hydrochloride 25 mg oral tablet 1 TO 1 AND 1/2 TABLETS, By Mouth, 3 times a day, PRN NEEDED FOR ANXIETY, # 60 tablet, 2 Refills,Maintenance, 10/05/22 20:26:00 EST, [facility] #[id number], 157.5, cm, 08/07/22 10:53:00 EST, Height, 82.8, kg, 08/07/22 10:17:00 EST, Dry Weight Start Date: 10/05/22 Status: Ordered ipratropium nasal 21 mcg/inh spray See Instructions, PRN Nasal Congestion, 1 spray each nostril BID, # 1 each, 4 Refills, Maintenance,06/04/22 11:24:00 EDT, [facility] #[id number], Partial fill upon patient request if the prescription is for a schedule II opioid drug., 1 spray ea... Start Date: 06/04/22 Status: Ordered magnesium oxide 500 mg oral tablet 1 tablet = 500 mg, By Mouth, Daily at bedtime, 0 Refills, Maintenance, 05/21/20 7:47:00 EDT Start Date: 05/21/20 Status: Ordered Myrbetriq 25 mg oral tablet, extended release 1 tablet = 25 mg, By Mouth, Daily at bedtime, Maintenance, 11/20/21 12:16:00 EDT Start Date: 11/20/21 Status: Ordered omeprazole 20 mg oral delayed release tablet 1 tablet = 20 mg, By Mouth, Daily, # 30 tablet, 1 Refills, Maintenance, 09/02/22 23:37:00 EST, CR Tablet, [facility] #[id number], Partial fill upon patient request if the prescription is for a schedule II opioid drug., 157.5, cm, 08/07/22 10:53:0... Start Date: 09/02/22 Status: Ordered pramipexole 0.125 mg oral tablet 3 tablet, By Mouth, Daily at bedtime, # 90 tablet, 3 Refills, Maintenance, 10/12/22 18:54:00 EST, [facility] #[id number], 157.5, cm, 08/07/22 10:53:00 EST, Height, 82.8, kg, 08/07/22 10:17:00 EST, Dry Weight Start Date: 10/12/22 Status: Ordered VESIcare 10 mg oral tablet [...] knee surgery: 2006 & 2008 at [facility] Confirmed Active Status post knee surgery, [facility] 05/02/01 Confirmed 05/02/01 Active Hypertension Confirmed Active Lumbar facet joint pain Confirmed Active [...] Active Risk assessment: SOAPP-R 10 Confirmed Active Recurrent severe major depressive disorder with anxiety Confirmed Active Abdominal pain, chronic, right lower quadrant; intermittent; duration minutes Confirmed Active Risk assessment: Adverse Childhood Experience 11 Confirmed Active Severe obesity (BMI 35.0-39.9) with comorbidity Confirmed Active Severe episode of recurrent major depressive disorder, without psychotic features Confirmed Active Shoulder pain, mechanical, right Confirmed [...] trigger thumb by Alex Putnam M.D. at [facility] 7Retrial prescribed 12/17/20. On 01/15, at [...] on 03/31/2016 11ACE score: 0 on 07/01/17 Diagnosis Diagnosis Type Effective Dates Health Status Clinical Service Informant Occipital neuralgia, right (lesser occipital nerve) >>left Discharge Diagnosis 12/07/22 Severe episode of recurrent major depressive disorder, without psychotic features Discharge Diagnosis 12/07/22 Hypertension Discharge Diagnosis 12/07/22 Fibromyalgia Discharge Diagnosis 12/07/22 Sweating profusely Discharge Diagnosis 12/07/22 Vital Signs Most recent to oldest [Reference Range]: 1 Height 157.5 cm (12/07/22 11:15 AM) Weight 89.0 kg (12/07/22 11:15 AM) Oxygen Saturation [94-100 %] 94 % (12/07/22 11:15 AM) Pulse Rate [55-90 bpm] 83 bpm (12/07/22 11:15 AM) Body Mass Index [18.5-24.99 kg/m2] 35.88 kg/m2 *>HHI* (12/07/22 11:15 AM) Blood Pressure [90-138/55-84 mm Hg] 156/ 89mm Hg *H* (12/07/22 11:15 AM) Mode of Delivery (Oxygen) Room air (12/07/22 11:15 AM) Blood pressure sites Arm, right (12/07/22 11:15 AM) Social History Social History Type Response Smoking Status Former smoker; Stop ed at age: 50; entered on: 03/11/17 Sex Female Patient Care team information Care Team Personnel Name: Cj Arthur Jr, MD Position: [facility] Anesthesiology MD Member Role: Lifetime Consulting Physician Address: Address: [address] [place] [address] Anesthesia Services [address] Name: Tiot Alvarado MD Position: [facility] Primary Care Physician Member Role: PCP Address: Address: [address] [place] [address] Adult & Pediatric Medicine [place], [place] [address] Care Team Related Persons Name: BRAYAN VELAZCO Address: [address] [place] [address] Name: ABDON VELAZCO Name: NOEL LIZAMA Address: [address] [place] [address] Name: FADY NIELSON Address: [address] [place] [address]
--- OUTSIDE RECORDS SUMMARY | 2024-06-15 11:11 | XMS_ITS | Continuity of Care Document ---
Author Organization [facility] Address [address] [place] [address]- Care Team Providers Care Broadcast Program Director Name Role Phone Tito Alvarado MD Primary Care Physician [phone] Encounter [facility] R [id number] Date(s): 09/04/21 - 09/11/21 [facility] [address] [place] [address]- Encounter Diagnosis Cecum mass(Discharge Diagnosis) - 09/04/21 Depression, major, recurrent, moderate(Discharge Diagnosis) - 09/04/21 Anxiety, generalized(Discharge Diagnosis) - 09/04/21 Chronic pain(Discharge Diagnosis) - 09/04/21 Attending Physician: Tito Alvarado MD Allergies, Adverse [...] 06/17/17 Mars rded Medications Calcium 600 +D By Mouth, 0 Refills, [...] EDT, Supply Start Date: 11/21/20 Status: Ordered duloxetine 60 mg oral enteric coated capsule 1 capsule = 60 mg, By Mouth, Daily, NOTE change in capsule strength, # 28 capsule, 3 Refills, Maintenance, 07/14/21 9:37:00 EST, [facility] #[id number], 163, cm, 07/02/21 14:28:00 EST, Height Start Date: 07/14/21 Status: Ordered magnesium oxide 500 mg oral tablet 1 tablet = 500 mg, By Mouth, Daily, 0 Refills, Maintenance, 05/21/20 7:47:00 EDT Start Date: 05/21/20 Status: Ordered Physical Therapy Physical Therapy, See Instructions, # 1 each, Refills 0, Tot. Refills 0, Maintenance, Evaluate and treat bilateral shoulder pain., 06/02/21 10:52:00 EDT, Supply Start Date: 06/02/21 Status: Ordered Readi-Cat 2 oral suspension 450 mL = 9 Gm, By Mouth, 2 times a day, Please dispense two 450 mL bottles for a total dose that equals 900 mLs. Drink first bottle [address] and then drink second bottle [address] scan,# 2 each, 0 Refills, Maintenance, 08/07/21 9:53:00... Start Date: 08/07/21 Status: Ordered tiZANidine 2 mg oral tablet 1-2 tablet, By Mouth, 3 times a day, PRN, not to exceed 3 doses/day, # 60 tablet, Refills 1, Tot. Refills 1, Acute 11/06/21 16:05:00 EDT, Pain , Moderate, 08/08/21 16:04:00 EST, Route to Pharmacy Electronically, [facility] #[id number], Partial fi... Start Date: 08/08/21 Stop Date: 11/06/21 Status: Ordered topiramate 100 mg oral tablet 3 tablet = 300 mg, By Mouth, Daily at bedtime, # 84 tablet, 1 Refills, Maintenance, 08/26/21 14:05:00 EST, [facility] #[id number], 163, cm, 08/06/21 14:34:00 EST, Height, 63, kg, 08/05/21 10:14:00 EST, Dry Weight Start Date: 08/26/21 Status: Ordered VESIcare 10 mg oral tablet 1 tablet = 10 mg, By Mouth, Daily, Rx by Dr Darleen Garcia (urology) Start Date: 08/13/16 Status: Ordered Vitamin D3 1000 intl units oral tablet 1 tablet = 1,000 International_Units, By Mouth, Daily, 0 Refills, Maintenance, 06/14/12 8:11:58 EDT Start Date: 06/14/12 Status: Ordered ZyrTEC 10 mg oral tablet 1 tablet = 10 mg, By Mouth, Once, [address], # 1 tablet, 0 Refills, Soft Stop, 08/19/21 12:22:00 EST, Tablet, [facility] #[id number], Partial fill upon patient request if the prescription is for a schedule II opioid drug., 163, cm, 07/23... Start Date: 08/19/21 Status: Ordered Problem List Condition Effective Dates [...] kne e surgery: 2006 & 2008 at [facility](Confirmed) Active Status post knee surgery, [facility] 05/02/01(Confirmed) 05/02/01 Active Lumbar facet joint pain(Confirmed) [...] Index: 48% ( severe disability ); updated [place] Back Pain Disability Scale score: 61; both on 07/02/21 7Updated Oswestry Disability Index: 35% moderate disability , [place] Back Pain Disability Scale: 35and Neck Disability Index: 8 on 06/29/19. 8Updated Oswestry Disability Index: 2% ( minimal disability ) on 06/09/18; updated [place] Back Pain Disability Scale score: 4 on 06/09/18; updated Neck Disability Index: 4% on 06/09/18 9Updated Oswestry Disability Index: 22% ( moderate disability ) on 05/26/17; updated [facility] Back Pain Disability Scale score: 18 on 05/26/17. 10Initial Oswestry Disability Index: 50% ( severe disability ) on 03/31/16; initial Neck Disability Index: 42% ( severe disability ) on 03/31/16; initial [place] Back Pain Disability Scale score: 46 on 03/31/16. 11On 09/30/17 underwent Tenolysis, right thumb, for Right trigger thumb by Alex Putnam M.D. at [facility] 12Retrial prescribed 12/17/20. On 01/15, at 10mg [...] on 03/31/2016 15ACE score: 0 on 07/01/17 Diagnosis Diagnosis Type Effective Dates Health Status Clinical Service Informant Cecum mass Discharge Diagnosis 09/04/21 Depression, major, recurrent, moderate Discharge Diagnosis 09/04/21 Anxiety, generalized Discharge Diagnosis 09/04/21 Chronic pain Discharge Diagnosis 09/04/21 Social History Social History Type Response Smoking Status Former smoker; Stopp ed at age: 50; entered on: 03/11/17 Sex Female
--- OUTSIDE RECORDS SUMMARY | 2024-06-15 11:11 | XMS_ITS | Continuity of Care Document ---
Author Organization [facility] Address [address] [place] [address]- Care Team Providers Care Fur Operator Name Role Phone Christiano FANG, Tito England Primary Care Physician Encounter [facility] [place] Date(s): 07/03/21 - 08/02/21 [facility] [address] [place], [place] [address] Allergies, Adverse Reactions, Alerts [...] virus vaccine, inactivated 06/05/18 Mars rded Medications Calcium 600 +D By [...] capsule, 3 Refills, Maintenance, 07/14/21 9:37:00 EST, [facility] #[id number], 163, cm, 07/02/21 14:28:00 EST, Height Start [...] EDT, Supply Start Date: 06/02/21 Status: Ordered topiramate 100 mg oral tablet 3 tablet = 300 mg, By Mouth, Daily at bedtime, # 84 tablet, 1 Refills, Maintenance, 07/03/21 10:52:00 EST, [facility] #[id number], 163, cm, 07/02/21 14:28:00 EST, Height Start Date: 07/03/21 Status: Ordered VESIcare 10 mg oral tablet [...] Anxiety, generalized(Confirmed) Active Status post bilateral oophorectomy(Confirmed) 2003 Active Status post hysterectomy and bilateral salpingectomy(Confirmed) [...] Healthcare System(Confirmed) Active Status post knee surgery, [facility] 05/02/01(Confirmed) 05/02/01 Active Lumbar facet joint pain(Confirmed) [...] Index: 48% ( severe disability ); updated [place] Back Pain Disability Scale score: 61; both on 07/02/21 7Updated Oswestry Disability Index: 35% moderate disability , [place] Back Pain Disability Scale: 35and Neck Disability Index: 8 on 06/29/19. 8Updated Oswestry Disability Index: 2% ( minimal disability ) on 06/09/18; updated [place] Back Pain Disability Scale score: 4 on 06/09/18; updated Neck Disability Index: 4% on 06/09/18 9Updated Oswestry Disability Index: 22% ( moderate disability ) on 05/26/17; updated [place] Back Pain Disability Scale score: 18 on 05/26/17. 10Initial Oswestry Disability Index: 50% ( severe disability ) on 03/31/16; initial Neck Disability Index: 42% ( severe disability ) on 03/31/16; initial [place] Back Pain Disability Scale score: 46 on 03/31/16. 11On 09/30/17 underwent Tenolysis, right thumb, for Right trigger thumb by Alex Putnam M.D. at [facility] 12Retrial prescribed 12/17/20. On 01/15, at [...]
--- OUTSIDE RECORDS SUMMARY | 2024-06-15 11:11 | XMS_ITS | Continuity of Care Document ---
Author Organization [facility] Address [address] [place] [address]- Care Team Providers Care Electrical Designer Drafter Name Role Phone Christiano FANG, Tito England Primary Care Physician [place] [facility] [place]21 - 12/20/21 [facility] [address] [place], [place] [address] Allergies, Adverse Reactions, Alerts Substance Reaction [...] virus vaccine, inactivated 06/17/17 Mars rded Medications busPIRone 5 mg oral tablet 5 mg, 1, tablet, By Mouth, 2 times a day, PRN, # 60 tablet, Refills 1, Tot. Refills 1, Maintenance,Anxiety, 12/12/21 11:12:00 EDT, Route to Pharmacy Electronically, [facility] #[id number], Partial fill upon patient request if the prescription is... Start Date: 12/12/21 Status: Ordered Calcium 600 +D 1 tablet, [...] Refills, Maintenance, 10/02/21 15:44:00 EST, EC Capsule, [facility] #[id number], Partial fill upon patient request if the prescription... Start Date: 10/02/21 Status: Ordered duloxetine 60 mg oral enteric coated capsule 1 capsule = 60 mg, By Mouth, Daily, fill when patient next requests. To be taken with 30mg cap for total 90mg daily dose, # 30 capsule, 3 Refills, Maintenance, 10/02/21 15:45:00 EST, [facility] #[id number], 163, cm, 08/27/21 9:26:00 EST, Height,... Start Date: 10/02/21 Status: Ordered ferrous sulfate 325 mg oral enteric coated tablet 325 mg, 1, tablet, By Mouth, Daily, # 30 tablet, Refills 2, Tot. Refills 2, Maintenance, 12/05/21 11:39:00 EDT, Route to Pharmacy Electronically, [facility] #[id number], Partial fill upon patient request if the prescription is for a schedule II o... Start Date: 12/05/21 Status: Ordered hydrOXYzine hydrochloride 25 mg oral tablet 1-1.5 tablet, By Mouth, 3 times a day, PRN for anxiety, dose increase, # 60 tablet, 1 Refills, Maintenance, 10/08/21 14:51:00 EST, Tablet, [facility] #[id number], Partial fill upon patient request if the [...] 11/25/21 18:16:00 EDT, Route to Pharmacy Electronically, [facility] #[id number], Partial fill upon patient request if the prescriptio... Start Date: 11/25/21 Status: Ordered Paxlovid 150 mg-100 mg oral tablet See Instructions, nirmatrelvir 2 tabs PO and ritonavir 1 tab PO BID for 5 days, # 30 tablet, 0 Refills, Maintenance, 12/15/21 9:13:00 EDT, [facility] #[id number], Partial fill upon patient request if the prescription is for a schedule II opioid d... Start Date: 12/15/21 Status: Ordered Physical Therapy Physical Therapy, See Instructions, # 1 each, Refills 0, Tot. Refills 0, Maintenance, Evaluate and treat bilateral shoulder pain., 06/02/21 10:52:00 EDT, Supply Start Date: 06/02/21 Status: Ordered pramipexole 0.125 mg oral tablet 1 tablet = 0.125 mg, By Mouth, Daily, Take a couple hours prior to bedtime, # 30 tablet, 1 Refills,Maintenance, 12/05/21 11:52:00 EDT, Tablet, [facility] #[id number], Partial fill upon patient request if the prescription is for a schedule II opi... Start Date: 12/05/21 Status: Ordered tiZANidine 4 mg oral tablet 2 mg, 0.5, tablet, By Mouth, 3 times a day, PRN, # 45 tablet, Refills 0, Tot. Refills 0, Maintenance, Spasm, 11/25/21 18:16:00 EDT, Route to Pharmacy Electronically, [facility] #[id number], Partial fill upon patient request if the [...] [facility](Confirmed) Active Status post knee surgery, [facility] 05/02/01(Confirmed) 05/02/01 Active Lumbar facet joint [...] Index: 48% ( severe disability ); updated [place] Back Pain Disability Scale score: 61; both on 07/02/21 7Updated Oswestry Disability Index: 35% moderate disability , [place] Back Pain Disability Scale: 35and Neck Disability Index: 8 on 06/29/19. 8Updated [place]estry Disability Index: 2% ( minimal disability ) on 06/09/18; updated [place] Back Pain Disability Scale score: 4 on [...] trigger thumb by Alex Putnam M.D. at [facility] 12Retrial prescribed 12/17/20. On 01/15, at [...]
--- OUTSIDE RECORDS SUMMARY | 2024-06-15 11:11 | XMS_ITS | Continuity of Care Document ---
Author Organization [facility] Address [address] [place] [address]- Care Team Providers Care Manager Oncology Name Role Phone Christiano FANG, Tito England Primary Care Physician [place] [facility] [place]02[place]22 - 10/02/22 [facility] [address] [place], [place] [address] Allergies, Adverse Reactions, Alerts Substance Reaction Severity Status codeine nausea Active iodinated radiocontrast dyes N/V Active Immunizations Given and Recorded Vaccine Date Status Refusal Reason influenza virus vaccine, inactivated 1 06/02/22 Gi laurie influenza virus vaccine, inactivated 06/05/18 Mars rded influenza virus vaccine, inactivated 06/17/17 Mars rded [id number] 12y+ bivalent booster vax 03/27/22 Recorded SARS-CoV-2 (COVID-19) mRNA BNT-162b2 vac 08/21/21 Recorded SARS-CoV-2 (COVID-19) Ad26 vaccine 12/02/20 Given Influenza Virus Vaccine (oldterm) 07/13/20 Recorde d zoster vaccine, inactivated 11/20/18 Recorded zoster vaccine, inactivated 09/17/18 Recorded tetanus/diphtheria/pertussis, acel(Tdap) 06/05/18 Recorded 1Result Comment: [facility]:[id number] Medications Aerochamber w/Mask (Large) See Instructions, # [...] 10:38:00 EST, Aerosol, Route to Pharmacy Electronically, [id number], [facility] #[id number], 1... Start Date: 08/07/22 Status: Ordered AutoASV [...] Refills, Maintenance, 06/23/22 14:08:00 EDT, ER Tablet, [facility] #[id number], Partial fillupon patient request if the prescription [...] 30 capsule, 5 Refills, 08/14/22 12:55:00 EST, [facility] #[id number], 157.5, cm, 08/07/22 10:53:00 EST, Height, 82.8, kg, 08/07/22 10:17:00 EST, Dry Weight Start Date: 08/14/22 Status: Ordered duloxetine 60 mg oral enteric coated capsule 1 capsule = 60 mg, By Mouth, Daily, take with 30mg capsule for total 90mg daily, # 30 capsule, 5 Refills, Maintenance, 03/09/22 11:52:00 EDT, [facility] #[id number], 157.5, cm, 02/09/22 19:12:00EDT, Height, 77, kg, 01/13/22 9:51:00 EDT, Dry Weight Start Date: 03/09/22 Status: Ordered ferrous sulfate 325 mg oral enteric coated tablet 1, tablet, By Mouth, Daily, # 30 tablet, Refills 1, Maintenance, 05/06/22 11:08:00 EDT, Route to Pharmacy Electronically, [facility] #[id number], 157.5, cm, 05/01/22 9:45:00 EDT, Height, 83.4, kg, 05/01/22 9:11:00 EDT, Dry Weight Start Date: 05/06/22 Status: Ordered Flovent HFA 110 mcg/inh inhalation aerosol 1 puffs, Inhalation, 2 times a day, rinse mouth and throat after use, # 1 each, 2 Refills, Maintenance, 08/07/22 10:36:00 EST, Aerosol, [facility] #[id number], Partial fill upon patient request if the [...] 60 tablet, 2 Refills,Maintenance, 05/06/22 11:08:00 EDT, [facility] #[id number], 157.5, cm, 05/01/22 9:45:00 EDT, Height, 83.4, kg, 05/01/22 9:11:00 EDT, Dry Weight Start Date: 05/06/22 Status: Ordered ipratropium nasal 21 mcg/inh spray See Instructions, PRN Nasal Congestion, 1 spray each nostril BID, # 1 each, 4 Refills, Maintenance,06/04/22 11:24:00 EDT, [facility] #[id number], Partial fill upon patient request if the [...] Refills, Maintenance, 09/02/22 23:37:00 EST, CR Tablet, [facility] #[id number], Partial fill upon patient request if the [...] 90 tablet, 3 Refills, 06/23/22 14:01:00 EDT, [facility] #[id number], 157.5, cm, 06/23/22 13:25:00 EDT, Height, 81.3, [...] arthroscopic knee surgery: 2006 & 2008 at [facility] Confirmed Active Status post knee surgery, [facility] 05/02/01 Confirmed 05/02/01 Active Lumbar facet [...] thumb by Alex Putnam M.D. at [facility] 7Retrial prescribed 12/17/20. On 01/15, at 10mg [...] Name: Sandhya Tsai MD, Cj Reyna Position: [facility] Anesthesiology MD Member Role: Lifetime Consulting Physician Address: Address: [address] [place] [address] [place] [address]- Name: Christiano FANG, Tito England Position: [facility] Primary Care Physician Member Role: PCP Address: Address: [address] [place] [address] Adult [place] [address]- Care Team Related Persons Name: BRAYAN VELAZCO Address: [address] [place] [address] Name: NOEL LIZAMA Address: [address] [place] [address] Name: FADY NIELSON Address: [address] [place] [address]
--- OUTSIDE RECORDS SUMMARY | 2024-06-15 11:12 | XMS_ITS | Continuity of Care Document ---
Author Organization [facility] Address [address] [place] [address]- Care Team Providers Care Picture Booker Name Role Phone Christiano FANG, Tito England Primary Care Physician En[place] [facility] [place] Date(s): 06/20/22 - 07/20/22 [facility] [address] [place], [place] [address] Allergies, Adverse Reactions, Alerts Substance Reaction Severity Status codeine nausea Active iodinated radiocontrast dyes N/V Active Immunizations Given and Recorded Vaccine Date Status Refusal Reason influenza virus vaccine, inactivated 1 06/02/22 Gi laurie influenza virus vaccine, inactivated 06/05/18 Mars rded influenza virus vaccine, inactivated 06/17/17 Mars rded [id number] 12y+ bivalent booster vax 03/27/22 Recorded SARS-CoV-2 (COVID-19) mRNA BNT-162b2 vac 08/21/21 Recorded SARS-CoV-2 (COVID-19) Ad26 vaccine 12/02/20 Given Influenza Virus Vaccine (oldterm) 07/13/20 Recorde d zoster vaccine, inactivated 11/20/18 Recorded zoster vaccine, inactivated 09/17/18 Recorded tetanus/diphtheria/pertussis, acel(Tdap) 06/05/18 Recorded 1Result Comment: [facility]:[id number] Medications AutoASV EPAPmin 8 EPAPmax 12 PSmin [...] Refills, Maintenance, 06/23/22 14:08:00 EDT, ER Tablet, [facility] #[id number], Partial fillupon patient request if the prescription [...] capsule, 5 Refills, Maintenance, 03/09/22 11:52:00 EDT, [facility] #[id number], 157.5, cm, 02/09/22 19:12:00EDT, Height, 77, kg, 01/13/22 9:51:00 EDT, Dry Weight Start Date: 03/09/22 Status: Ordered ferrous sulfate 325 mg oral enteric coated tablet 1, tablet, By Mouth, Daily, # 30 tablet, Refills 1, Maintenance, 05/06/22 11:08:00 EDT, Route to Pharmacy Electronically, [facility] #[id number], 157.5, cm, 05/01/22 9:45:00 EDT, Height, 83.4, [...] 60 tablet, 2 Refills,Maintenance, 05/06/22 11:08:00 EDT, [facility] #[id number], 157.5, cm, 05/01/22 9:45:00 EDT, Height, 83.4, kg, 05/01/22 9:11:00 EDT, Dry Weight Start Date: 05/06/22 Status: Ordered ipratropium nasal 21 mcg/inh spray See Instructions, PRN Nasal Congestion, 1 spray each nostril BID, # 1 each, 4 Refills, Maintenance,06/04/22 11:24:00 EDT, [facility] #[id number], Partial fill upon patient request if the [...] 90 tablet, 3 Refills, 06/23/22 14:01:00 EDT, [facility] #[id number], 157.5, cm, 06/23/22 13:25:00 EDT, Height, 81.3, [...] arthroscopic knee surgery: 2006 & 2008 at [facility] Confirmed Active Status post knee surgery, [facility] 05/02/01 Confirmed 05/02/01 Active Lumbar [...] trigger thumb by Alex Putnam M.D. at [facility] 7Retrial prescribed 12/17/20. On 01/15, at [...] Name: Sandhya Tsai MD, Cj Reyna Position: [facility] Anesthesiology MD Member Role: Lifetime Consulting Physician Address: Address: [address] [place] [address] [place] [address]- Name: Tito Alvarado MD Position: [facility] Primary Care Physician Member Role: PCP Address: Address: [address] [place] [address] Adult & [place] [address]- Care Team Related Persons Name: BRAYAN VELAZCO Address: [address] [place] [address] Name: NOEL LIZAMA Address: [address] [place] [address] Name: FADY NIELSON Address: [address] [place] [address]
--- OUTSIDE RECORDS SUMMARY | 2024-06-15 11:12 | XMS_ITS | Continuity of Care Document ---
Author Organization [facility] Address [address] [place] [address]- Care Team Providers Care Program Director/Music Director Name Role Phone Tito Alvarado MD Primary Care Physician Encounter [facility] [place] Date(s): 06/12/22 - 06/19/22 [facility] [address] [place] [address]- Encounter Diagnosis Contusion of bone(Discharge Diagnosis) - 06/13/22 Attending Physician: Tito Alvarado MD Allergies, Adverse Reactions, Alerts Substance Reaction Severity Status codeine nausea Active iodinated radiocontrast dyes N/V Active Immunizations Given and Recorded Vaccine Date Status Refusal Reason influenza virus vaccine, inactivated 1 06/02/22 Gi laurie influenza virus vaccine, inactivated 06/05/18 Mars rded influenza virus vaccine, inactivated 06/17/17 Mars rded [id number] 12y+ bivalent booster vax 03/27/22 Recorded SARS-CoV-2 (COVID-19) mRNA BNT-162b2 vac 08/21/21 Recorded SARS-CoV-2 (COVID-19) Ad26 vaccine 12/02/20 Given Influenza Virus Vaccine (oldterm) 07/13/20 Recorde d zoster vaccine, inactivated 11/20/18 Recorded zoster vaccine, inactivated 09/17/18 Recorded tetanus/diphtheria/pertussis, acel(Tdap) 06/05/18 Recorded 1Result Comment: [facility]:[id number] Medications AutoASV EPAPmin 8 EPAPmax 12 PSmin 3 PSmax 15 with heated humidification AutoASV EPAPmin 8 EPAPmax 12 PSmin 3 PSmax 15 with heated humidification, See Instructions, # 1 each, Refills 0, Tot. Refills 0, Maintenance, use overnight and naps from [employer], 06/16/22 14:12:00 EDT,Compound Start Date: 06/16/22 Status: Ordered Calcium 600 +D 1 tablet, [...] EDT, Supply Start Date: 06/02/22 Status: Ordered diclofenac 1% topical gel = 1 Gm, Topically, 4 times a day, PRN Pain , Moderate, left ankle, with food, # 100 Gm, 1 Refills, Maintenance, 06/12/22 16:03:00 EDT, Gel, [facility] #[id number], Partial fill upon patient request if the prescription is for a schedule II opioid... Start Date: 06/12/22 Status: Ordered doxycycline monohydrate 100 mg oral [...] capsule, 5 Refills, Maintenance, 03/09/22 11:52:00 EDT, [facility] #[id number], 157.5, cm, 02/09/22 19:12:00EDT, Height, 77, kg, 01/13/22 9:51:00 EDT, Dry Weight Start Date: 03/09/22 Status: Ordered ferrous sulfate 325 mg oral enteric coated tablet 1, tablet, By Mouth, Daily, # 30 tablet, Refills 1, Maintenance, 05/06/22 11:08:00 EDT, Route to Pharmacy Electronically, [facility] #[id number], 157.5, cm, 05/01/22 9:45:00 EDT, Height, 83.4, [...] 60 tablet, 2 Refills,Maintenance, 05/06/22 11:08:00 EDT, [facility] #[id number], 157.5, cm, 05/01/22 9:45:00 EDT, Height, 83.4, kg, 05/01/22 9:11:00 EDT, Dry Weight Start Date: 05/06/22 Status: Ordered ipratropium nasal 21 mcg/inh spray See Instructions, PRN Nasal Congestion, 1 spray each nostril BID, # 1 each, 4 Refills, Maintenance,06/04/22 11:24:00 EDT, [facility] #[id number], Partial fill upon patient request if the prescription is for a schedule II opioid drug., 1 spray ea... Start Date: 06/04/22 Status: Ordered Knee walker scooter rental-for 4 weeks Knee walker scooter rental-for 4 weeks, See Instructions, # 1 each, Refills 0, Tot. Refills 0, Maintenance, to be used for ambulation for left ankle sprain r/o fracture, unable to use crutches due toleft hand surgery complications, 06/15/22 16:12:00... Start Date: 06/15/22 Status: Ordered Left ankle gel or air [...] Ordered pramipexole 0.125 mg oral tablet 1 tablet, By Mouth, 2 times a day, # 60 tablet, 3 Refills, [facility] #[id number], 157.5, cm, 03/26/22 13:17:00 EDT, Height, 77, kg, 03/18/22 13:04:00 EDT, Dry Weight Start Date: 04/07/22 Status: Ordered VESIcare 10 mg oral tablet [...] >>left Confirmed Active Somnolence, daytime Confirmed Active Decreased range of motion of shoulder, right Confirmed Active Attention and concentration deficit 5 Confirmed Active Medical cannabis use Confirmed Active Ex-cigarette smoker Confirmed Active Urinary, incontinence, stress female Confirmed Active Fibromyalgia Confirmed Active Limitation due to disability 6, 7, 8, 9, 10 Confirmed Active Foot pain, right: c/w plantar fasciitis Confirmed Active Anxiety, generalized Confirmed Active Status [...] 04/26/18 Active Status post right thumb surgery 11 Confirmed Active Hidradenitis Confirmed Active Hip pain, right appears to be related to S1 radiculitis Confirmed Active Status post carpal tunnel release Confirmed 08/13/15 Active Status post arthroscopic knee surgery: 2006 & 2008 at [facility] Confirmed Active Status post knee surgery, [facility] 05/02/01 Confirmed 05/02/01 Active Lumbar facet joint pain Confirmed Active Lumbar radiculopathy, right Confirmed Active Radiculitis, lumbosacral right S1 +/- L5 new 03/2019 Confirmed 03/2019 Active Mechanical low back pain Confirmed Active Median nerve neuropathy, left Confirmed Active Myofascial pain, regional Confirmed Active Neuropathy, sacral, S1 bilaterally Confirmed Active Adverse effect of non-opioid analgesic: memantine 12, 13 Confirmed Active Obese class I Confirmed Active Obstructive sleep apnea 14 Confirmed Active Osteopenia Confirmed Active Buttock pain, right- at least in part related to S1 radiculitis Confirmed Active Coccydynia Confirmed Active Risk assessment: SOAPP-R 15 Confirmed Active Depression, major, recurrent, moderate Confirmed Active Recurrent severe major depressive disorder with anxiety Confirmed Active Abdominal pain, chronic, right lower quadrant; intermittent; duration minutes Confirmed Active Risk assessment: Adverse Childhood Experience 16 Confirmed Active Shoulder pain, mechanical, right Confirmed Active Shoulder pain, left Confirmed Active Lack of adequate sleep Confirmed Active Heart murmur, systolic, audible when recumbent Confirmed Active Tinnitus Confirmed 05/07/17 Active Word [...] Index: 48% ( severe disability ); updated [place] Back Pain Disability Scale score: 61; both on 07/02/21 7Updated Oswestry Disability Index: 35% moderate disability , [place] Back Pain Disability Scale: 35and Neck Disability Index: 8 on 06/29/19. 8Updated Oswestry Disability Index: 2% ( minimal disability ) on 06/09/18; updated [place] Back Pain Disability Scale score: 4 on 06/09/18; updated Neck Disability Index: 4% on 06/09/18 9Updated Oswestry Disability Index: 22% ( moderate disability ) on 05/26/17; updated [facility] Back Pain Disability Scale score: 18 on 05/26/17. 10Initial Oswestry Disability Index: 50% ( severe disability ) on 03/31/16; initial Neck Disability Index: 42% ( severe disability ) on 03/31/16; initial [facility] Back Pain Disability Scale score: 46 on 03/31/16. 11On 09/30/17 underwent Tenolysis, right thumb, for Right trigger thumb by Alex Putnam M.D. at [facility] 12Retrial prescribed 12/17/20. On 01/15, [...] up in the morning. Trial abandoned 02/26/20. 14patient reports dx in her 20s, tx with cpap in past 15SOAPP-R: 24 on 03/31/2016 16ACE score: 0 on 07/01/17 Diagnosis Diagnosis Type Effective Dates Health Status Cl inical Service Informant Contusion of bone Discharge Diagnosis 06/13/22 Vital Signs Most recent to oldest [Reference Range]: 1 Height 157.5 cm (06/12/22 3:37 PM) Oxygen Saturation [94-100 %] 94 % (06/12/22 3:37 PM) Pulse Rate [55-90 bpm] 105 bpm *H* (06/12/22 3:37 PM) Blood Pressure [90-138/55-84 mm Hg] 147/ 92mm Hg *H* (06/12/22 3:37 PM) Temperature [96.8-100.4 DegF] 97.2 DegF (06/12/22 3:37 PM) Blood pressure sites Arm, right (06/12/22 3:37 PM) Temperature Route Temporal (06/12/22 3:37 PM) Social History Social History Type Response Smoking Status Former smoker; Stopp ed at age: 50; entered on: 03/11/17 Sex Female Patient Care team information Personnel Name: Christiano FANG, Tito England Address: Address: [address] [place] [address] Adult & Pediatric Medicine [place], [place] [address]
--- OUTSIDE RECORDS SUMMARY | 2024-06-15 11:12 | XMS_ITS | Continuity of Care Document ---
Author Organization [facility] Address [address] [place] [address]- Care Team Providers Care Harpooner Name Role Phone Tito Alvarado MD Primary Care Physician [place] [facility] [place] Date(s): 06/04/22 - 07/17/22 [facility] [address] [place], [place] [address] Attending Physician: Yoana Hernandez DO Referring Physician: Tito Alvarado MD Allergies, Adverse Reactions, Alerts Substance Reaction Severity Status codeine nausea Active iodinated radiocontrast dyes N/V Active Immunizations Given and Recorded Vaccine Date Status Refusal Reason influenza virus vaccine, inactivated 1 06/02/22 Gi laurie influenza virus vaccine, inactivated 06/05/18 Mars rded influenza virus vaccine, inactivated 06/17/17 Mars rded [id number] 12y+ bivalent booster vax 03/27/22 Recorded SARS-CoV-2 (COVID-19) mRNA BNT-162b2 vac 08/21/21 Recorded SARS-CoV-2 (COVID-19) Ad26 vaccine 12/02/20 Given Influenza Virus Vaccine (oldterm) 07/13/20 Recorde d zoster vaccine, inactivated 11/20/18 Recorded zoster vaccine, inactivated 09/17/18 Recorded tetanus/diphtheria/pertussis, acel(Tdap) 06/05/18 Recorded 1Result Comment: [facility]:[id number] Medications AutoASV EPAPmin 8 EPAPmax 12 PSmin [...] Refills, Maintenance, 06/23/22 14:08:00 EDT, ER Tablet, [facility] #[id number], Partial fillupon patient request if the prescription [...] capsule, 5 Refills, Maintenance, 03/09/22 11:52:00 EDT, [facility] #[id number], 157.5, cm, 02/09/22 19:12:00EDT, Height, 77, kg, 01/13/22 9:51:00 EDT, Dry Weight Start Date: 03/09/22 Status: Ordered ferrous sulfate 325 mg oral enteric coated tablet 1, tablet, By Mouth, Daily, # 30 tablet, Refills 1, Maintenance, 05/06/22 11:08:00 EDT, Route to Pharmacy Electronically, [facility] #[id number], 157.5, cm, 05/01/22 9:45:00 EDT, Height, 83.4, [...] 60 tablet, 2 Refills,Maintenance, 05/06/22 11:08:00 EDT, [facility] #[id number], 157.5, cm, 05/01/22 9:45:00 EDT, Height, 83.4, kg, 05/01/22 9:11:00 EDT, Dry Weight Start Date: 05/06/22 Status: Ordered ipratropium nasal 21 mcg/inh spray See Instructions, PRN Nasal Congestion, 1 spray each nostril BID, # 1 each, 4 Refills, Maintenance,06/04/22 11:24:00 EDT, [facility] #[id number], Partial fill upon patient request if the [...] 90 tablet, 3 Refills, 06/23/22 14:01:00 EDT, [facility] #[id number], 157.5, cm, 06/23/22 13:25:00 EDT, Height, 81.3, [...] arthroscopic knee surgery: 2006 & 2008 at [facility] Confirmed Active Status post knee surgery, [facility] 05/02/01 Confirmed 05/02/01 Active Lumbar facet [...] trigger thumb by Alex Putnam M.D. at [facility] 7Retrial prescribed 12/17/20. On 01/15, at [...] Name: Sandhya Tsai MD, Cj Reyna Position: [facility] Anesthesiology MD Member Role: Lifetime Consulting Physician Address: Address: [address] [place] [address] [place] [address]- Name: Tito Alvarado MD Position: [facility] Primary Care Physician Member Role: PCP Address: Address: [address] [place] [address] Adult & [place] [address]- Care Team Related Persons Name: BRAYAN VELAZCO Address: home [address] [place] [address] Name: NOEL LIZAMA Address: home [address] [place] [address] Name: FADY NIELSON Address: home [address] [place] [address]
--- OUTSIDE RECORDS SUMMARY | 2024-06-15 11:12 | XMS_ITS | Continuity of Care Document ---
Author Organization [facility] Address [address] [place] [address]- Care Team Providers Care Custodian Manager Name Role Phone Tammie FANG, Jo-Ann Primary Care Physician [phone] Encounter [facility] [place] Date(s): 10/22/20 - 11/21/20 [facility] [address] [place] [address]- Allergies, Adverse Reactions, Alerts Substance Reaction Severity Status codeine nausea Active pentosan polysulfate sodium nausea Active iodinated radiocontrast dyes N/V Active Immunizations Given and Recorded Vaccine Date Status Refusal Reason Influenza Virus Vaccine (oldterm) 07/13/20 Recorde d zoster vaccine, inactivated 11/20/18 Recorded zoster vaccine, inactivated 09/17/18 Recorded tetanus/diphtheria/pertussis, acel(Tdap) 06/05/18 Recorded influenza virus vaccine, inactivated 06/05/18 Mars rded Medications Adderall 20 mg oral tablet See Instructions, 1 tab qa.m, 0.5-1 tab midday and 0-1 tab q 4pm., # 84 tablet, 0 Refills, Maintenance, 11/21/20 9:49:00 EDT, [facility] #[id number], DX: F90.0., 1 tab qa.m, 0.5-1 tab midday and0-1 tab q 4pm., 163, cm, 11/21/20 7:51:00 EDT, [facility]. Start Date: 11/21/20 Status: Ordered buprenorphine 75 mcg buccal film See Instructions, [address] film on inside of cheek and avoid food or drink untilcompletely dissolved, # 28 film, 1 Refills, Maintenance, 11/21/20 9:49:00 EDT, [email or web address]#[id number], Partial fill upon patient request if the p... Start Date: 11/21/20 Status: Ordered Calcium 600 +D By Mouth, [...] tablet, Refills 1, Tot. Refills 1, Maintenance,pain/spams, 10/08/20 10:57:00 EST, Route to Pharmacy Electronically, [email or web address] #[id number], 163, cm, 10/08/20 7:51:00 EST, Height, 64.2, kg, 02/21... Start Date: 10/08/20 Status: Ordered FLUoxetine 40 mg oral capsule 1 capsule = 40 mg, By Mouth, Daily, # 30 capsule, 1 Refills, Maintenance, 10/23/20 17:26:00 EST, [email or web address] #[id number], 163, cm, 10/23/20 14:46:00 EST, Height, 64.2, kg, 03/18/19 12:29:00 EDT, Dry Weight Start Date: 10/23/20 Status: Ordered Ketamine 85mg capsule Ketamine 85mg capsule, See Instructions, # 112 capsule, Refills 3, Tot. Refills 3, Maintenance, 1 cap by mouth 3-4 times a day. Occcipital neuralgia M53.83, 07/30/20 9:40:00 EST, Supply Start Date: 07/30/20 Status: Ordered Linzess 72 mcg oral capsule 1 capsule = 72 mcg, By Mouth, Daily, PRN Constipation Start Date: 05/25/19 Status: Ordered magnesium oxide 500 mg oral tablet 1 tablet = 500 mg, By Mouth, Daily, 0 Refills, Maintenance, 05/21/20 7:47:00 EDT Start Date: 05/21/20 Status: Ordered [place] 325 mg-10 mg oral tablet 1 - 1.5 tablets, By Mouth, Every 4 hours, PRN pain.max of 6 tabs/day., # 84 tablet, 0 Refills, Maintenance, 11/21/20 9:49:00 EDT, [email or web address] #[id number], Partial fill upon pt request. DX: M54.81, M54.5, M54.17, 1 - 1.5 tablets By Mouth Every 4 ho... Start Date: 11/21/20 Status: Ordered topiramate 100 mg oral tablet 3 tablets, By Mouth, Daily at bedtime, # 84 tablet, 2 Refills, Maintenance, 11/21/20 8:46:00 EDT, [email or web address] #[id number], 163, cm, 11/21/20 7:51:00 EDT, Height, 64.2, [...] to disability(Confirmed) 5, 6, 7, 8 Active Anxiety, generalized(Confirmed) Active Status post bilateral [...] kne e surgery: 2006 & 2008 at [facility](Confirmed) Active Status post knee surgery, [facility] 05/02/01(Confirmed) 05/02/01 Active Iliotibial band syndrome of right side(Confirmed) Active Lumbar facet joint pain(Confirmed) Active Lumbar radiculopathy, right(Confirmed) Active Radiculitis, lumbosacral rig ht S1 +/- L5 new 03/2019(Confirmed) 03/2019 Active Mechanical low back pain(Confirmed) Active Median nerve neuropathy, left(Confirmed) Active Myofascial pain, regional(Confirmed) Active Neuropathy, sacral, S1 bilaterally(Confirmed) Active Adverse effect of non-opioid analgesic: memantine(Confirmed) 10 Active Osteopenia(Confirmed) Active Buttock pain, right(Confirmed) Active Risk assessment: SOAPP-R(Confirmed) 11 Active Depression, major, recurrent , moderate(Confirmed) Active Abdominal pain, chronic, rig ht lower quadrant; intermittent; lasts minutes(Confirmed) Active Risk assessment: Adverse Chi ldhood Experience(Confirmed) 12 Active Shoulder pain, left(Confirmed) Active Lack of [...] ( moderate disability ) on 05/26/17; updated [facility] Back Pain Disability Scale score: 18 on 05/26/17. 8Initial Oswestry Disability Index: 50% ( severe disability ) on 03/31/16; initial Neck Disability Index: 42% ( severe disability ) on 03/31/16; initial [facility] Back Pain Disability Scale score: 46 on 03/31/16. 9On 09/30/17 underwent Tenolysis, right thumb, for Right trigger thumb by Alex Putnam M.D. at [facility] 10Memantine prescribed 01/25/20. With dose escal., pn w neuropathic features over right hip decr/resolved. At 10mg bid, began to experience decr head pn [attrib. to occipital neuralgia] & decr sciatica, but felt tipsy, impaired- would not want to drive and hard to wake up in the morning. Trial abandoned 02/26/20. 11SOAPP-R: 24 on 03/31/2016 12ACE score: 0 on 07/01/17 Social History Social History Type Response Smoking Status Former smoker; Tobac co user in household: No entered on: 07/07/17 Sex Female
--- OUTSIDE RECORDS SUMMARY | 2024-06-15 11:12 | XMS_ITS | Continuity of Care Document ---
Author Organization [facility] Address [address] [place] [address]- Care Team Providers Care Print Binding Worker Name Role Phone Tito Alvarado MD Primary Care Physician Encounter [facility] [place] Date(s): 06/02/21 - 07/02/21 [facility] [address] [place] [phone]- Allergies, Adverse Reactions, Alerts Substance Reaction Severity [...] virus vaccine, inactivated 06/05/18 Mars rded Medications acetaminophen 500 mg oral tablet 2 tablet = 1,000 mg, By Mouth, Every 6 hours, 0 Refills, Maintenance, 04/21/21 11:46:00 EDT, Partial fill upon patient request if the prescription is for a schedule II opioid drug. Start Date: 04/21/21 Status: Ordered Calcium 600 +D By Mouth, 0 Refills, Maintenance, 01/04/20 7:48:00 EDT Start Date: 01/04/20 Status: Ordered Cannabis (Schedule I Substance) 0 Refills, Maintenance, 04/22/16 14:08:47 Start Date: 04/22/16 Status: Ordered Controlled Substance Agreement Controlled Substance Agreement, See Instructions, # 1 each, Refills 0, Tot. Refills 0, Maintenance,Updated On: 11/21/2020 Pharmacy I: [facility] DX: mechanical back pain M54.5, occipitalneuralgia M54.81, 11/21/20 8:57:00 EDT, Supply Start Date: 11/21/20 Status: Ordered duloxetine 20 mg oral enteric coated capsule See Instructions, 1 capsule By Mouth daily for 5 days, then 2 caps daily for 14 days. Taper fluoxetine as directed., # 33 capsule, 0 Refills, Maintenance, 06/26/21 12:46:00 EDT, [facility] #[id number], 163, cm, 06/26/21 11:22:00 EDT, Height Start Date: 06/26/21 Status: Ordered FLUoxetine 20 mg oral capsule 60 mg, 3, capsule, By Mouth, Daily, # 84 capsule, Refills 2, Tot. Refills 2, Maintenance, 06/23/21 17:37:00 EDT, Route to Pharmacy Electronically, [facility] #[id number], 163, cm, 06/03/21 14:20:00 EDT, Height Start Date: 06/23/21 Status: Ordered magnesium oxide 500 mg oral tablet 1 tablet = 500 mg, By Mouth, Daily, 0 Refills, Maintenance, 05/21/20 7:47:00 EDT Start Date: 05/21/20 Status: Ordered NALTREXONE 1.5mg capsules NALTREXONE 1.5mg capsules, See Instructions, # 28 capsule, Refills 0, Tot. Refills 0, Maintenance, 1cap qam x 7days, then 1cap BID x 7days, then 1cap qhs x 7 days per written instructions.CompoundingMedically Necessary.21 day supply., 06/19/21 17:12:... Start Date: 06/19/21 Status: Ordered NALTREXONE 2 mg capsule NALTREXONE 2 mg capsule, See Instructions, # 21 capsule, Refills 0, Tot. Refills 0, Maintenance, 1-2 caps po daily per written instructions. 14 day supply for use w/1.5mg caps.Compounding Med Necessary., 06/19/21 17:12:00 EDT, Supply Start Date: 06/19/21 Status: Ordered Physical Therapy Physical Therapy, See Instructions, # 1 each, Refills 0, Tot. Refills 0, Maintenance, Evaluate and treat bilateral shoulder pain., 06/02/21 10:52:00 EDT, Supply Start Date: 06/02/21 Status: Ordered topiramate 100 mg oral tablet 2 tablet = 200 mg, By Mouth, Daily at bedtime, # 56 tablet, 2 Refills, Maintenance, 03/17/21 15:50:00 EDT, [id number], 163, cm, 03/17/21 13:56:00 EDT, Height Start Date: 03/17/21 Status: Ordered VESIcare 10 mg oral tablet [...] Limitation due to disability(Confirmed) 6, 7, 8, 9 Active Foot pain, right: c/w planta r [...] for adhesions ages 18, 19, & 21(Confirmed) 1984 Active Status post surgery on supra trochclear and greater occipital nerves 04/26/18(Confirmed) 04/26/18 Active Status post right thumb surgery(Confirmed) 10 Active Hidradenitis(Confirmed) Active Hip pain, right appears to b e related to S1 radiculitis(Confirmed) Active Status post carpal tunnel release(Confirmed) 08/13/15 Active Status post arthroscopic kne e surgery: 2006 & 2008 at [facility](Confirmed) Active Status post knee surgery, [facility] 05/02/01(Confirmed) 05/02/01 Active Lumbar facet joint pain(Confirmed) Active Lumbar radiculopathy, right(Confirmed) Active Radiculitis, lumbosacral rig ht S1 +/- L5 new 03/2019(Confirmed) 03/2019 Active Mechanical low back pain(Confirmed) Active Median nerve neuropathy, left(Confirmed) Active Myofascial pain, regional(Confirmed) Active Neuropathy, sacral, S1 bilaterally(Confirmed) Active Adverse effect of non-opioid analgesic: memantine(Confirmed) 11, 12 Active Osteopenia(Confirmed) Active Buttock pain, right- at leas t in part related to S1 radiculitis(Confirmed) Active Coccydynia(Confirmed) Active Risk assessment: SOAPP-R(Confirmed) 13 Active Depression, major, recurrent , moderate(Confirmed) Active Abdominal pain, chronic, rig ht lower quadrant; intermittent; lasts minutes(Confirmed) Active Risk assessment: Adverse Chi ldhood Experience(Confirmed) 14 Active Shoulder pain, mechanical, right(Confirmed) Active Shoulder [...] 5. on 04/11/18 6Updated Oswestry Disability Index: 35% moderate disability , [place] Back Pain Disability Scale: 35and Neck Disability Index: 8 on 06/29/19. 7Updated Oswestry Disability Index: 2% ( minimal disability ) on 06/09/18; updated [place] Back Pain Disability Scale score: 4 on 06/09/18; updated Neck Disability Index: 4% on 06/09/18 8Updated Oswestry Disability Index: 22% ( moderate disability ) on 05/26/17; updated [facility] Back Pain Disability Scale score: 18 on 05/26/17. 9Initial Oswestry Disability Index: 50% ( severe disability ) on 03/31/16; initial Neck Disability Index: 42% ( severe disability ) on 03/31/16; initial [facility] Back Pain Disability Scale score: 46 on 03/31/16. 10On 09/30/17 underwent Tenolysis, right thumb, for Right trigger thumb by Alex Putnam M.D. at [facility] 11Retrial prescribed 12/17/20. On 01/15, at 10mg bid off balance and nearly fell twice. No clear pn reduction. Dose reduced. Trial abandoned 01/22/21. 12Memantine prescribed 01/25/20. With dose escal., pn w neuropathic features over right hip decr/resolved. At 10mg bid, began to experience decr head pn [attrib. to occipital neuralgia] & decr sciatica, but felt tipsy, impaired- would not want to drive and hard to wake up in the morning. Trial abandoned 02/26/20. 13SOAPP-R: 24 on 03/31/2016 14ACE score: 0 on 07/01/17 Social History Social History Type Response Smoking Status Former smoker; Stopp ed at age: 50; entered on: 03/11/17 Sex Female
--- OUTSIDE RECORDS SUMMARY | 2024-06-15 11:12 | XMS_ITS | Continuity of Care Document ---
Author Organization [facility] Address [address] [place] [address]- Care Team Providers Care Air Director Name Role Phone Tammie FANG, Jo-Ann Primary Care Physician [phone] [place] [facility] [place] 05/02/20 [facility] [address] [place] [address]- [facility] Allergies, Adverse Reactions, Alerts Substance Reaction Severity [...] tablet, 0 Refills, Maintenance, 03/12/20 10:05:00 EDT, [id number], DX: F90.0., 1 tab qa.m, 0.5-1 tab midday and 0-1 tab q 4pm., 163, cm, 03/12/20 7:53:00 EDT, H... Start Date: 03/12/20 Status: Ordered Calcium 600 +D By Mouth, 0 Refills, Maintenance, 01/04/20 7:48:00 EDT Start Date: 01/04/20 Status: Ordered Cannabis (Schedule I Substance) 0 Refills, Maintenance, 04/22/16 14:08:47 Start Date: 8/31/16 Status: Ordered diazepam 2 mg oral tablet 0.5 - 1 tablet, By Mouth, Every 4 hours, PRN, # 112 tablet, Refills 1, Tot. Refills 1, Maintenance,pain/spams, 02/27/20 12:28:00 EDT, Route to Pharmacy Electronically, [email or web address] #[id number], 163, cm, 02/27/20 7:51:00 EDT, Height, 64.2, kg, 2... Start Date: 02/27/20 Status: Ordered diclofenac 1% topical gel = 2 Gm, Topically, 4 times a day, 0 Refills, Maintenance, 03/12/20 7:48:00 EDT Start Date: 03/12/20 Status: Ordered duloxetine 20 mg oral enteric coated capsule 2 capsule = 40 mg, By Mouth, Daily, Please alert pt to change in capsule strength, # 56 capsule, 4 Refills, Maintenance, 03/12/20 16:17:00 EDT, [email or web address] #[id number], Replaces 40mg caps which her plan excludes., 163, cm, 03/12/20 7:53:00 EDT, He... Start Date: 03/12/20 Status: Ordered duloxetine 60 mg oral enteric coated capsule 1 capsule, By Mouth, Daily, TO BE TAKEN WITH 40 MG CAPSULE FOR TOTAL DAILY DOSE OF 100MG, # 28 capsule, 5 Refills, Maintenance, 02/12/20 10:25:00 EDT, [email or web address] #[id number], 163, cm, 01/25/20 7:56:00 EDT, Height, 64.2, [...] Constipation Start Date: 05/25/19 Status: Ordered [place] 325 mg-10 mg oral tablet 1 - 1.5 tablets, By Mouth, Every 4 hours, PRN pain.max of 6 tabs/day., # 84 tablet, 0 Refills, Maintenance, 03/12/20 10:05:00 EDT, [facility] #[id number], Partial fill upon pt request. DX: M54.81, M54.5, M54.17, 1 - 1.5 tablets By Mouth Every 4 h... Start Date: 03/12/20 Status: Ordered topiramate 100 mg oral tablet 3 tablets, By Mouth, Daily at bedtime, # 84 tablet, 2 Refills, Maintenance, 03/12/20 8:07:00 EDT, [email or web address] #[id number], 163, cm, 03/12/20 7:53:00 EDT, Height, 64.2, [...] kne e surgery: 2006 & 2008 at [facility](Confirmed) Active Status post knee surgery, [facility] 05/02/01(Confirmed) 05/02/01 Active Lumbar [...] Oswestry Disability Index: 35% moderate disability , [place] Back Pain Disability Scale: 35and Neck Disability Index: 8 on 06/29/19. 4Updated Oswestry Disability Index: 2% ( minimal disability ) on 06/09/18; updated [place] Back Pain Disability Scale score: 4 on 06/09/18; updated Neck Disability Index: 4% on 06/09/18 5Updated Oswestry Disability Index: 22% ( moderate disability ) on 05/26/17; updated [facility] Back Pain Disability Scale score: 18 on 05/26/17. 6Initial Oswestry Disability Index: 50% ( severe disability ) on 03/31/16; initial Neck Disability Index: 42% ( severe disability ) on 03/31/16; initial [facility] Back Pain Disability Scale score: 46 on 03/31/16. 7On 09/30/17 underwent Tenolysis, right thumb, for Right trigger thumb by Alex Putnam M.D. at [facility] 8Memantine prescribed 01/25/20. With dose escal., [...]
--- OUTSIDE RECORDS SUMMARY | 2024-06-15 11:12 | XMS_ITS | Continuity of Care Document ---
Author Organization [facility] Address [address] [place] [address]- Care Team Providers Care Strategy Intern Name Role Phone Christiano FANG, Tito England Primary Care Physician Encounter [facility] [place] Date(s): 08/26/22 - 09/25/22 [facility] [address] [place] [id number]- Allergies, Adverse Reactions, Alerts Substance Reaction Severity Status codeine nausea Active iodinated radiocontrast dyes N/V Active Immunizations Given and Recorded Vaccine Date Status Refusal Reason influenza virus vaccine, inactivated 1 06/02/22 Gi laurie influenza virus vaccine, inactivated 06/05/18 Mars rded influenza virus vaccine, inactivated 06/17/17 Mars rded [id number] 12y+ bivalent booster vax 03/27/22 Recorded SARS-CoV-2 (COVID-19) mRNA BNT-162b2 vac 08/21/21 Recorded SARS-CoV-2 (COVID-19) Ad26 vaccine 12/02/20 Given Influenza Virus Vaccine (oldterm) 07/13/20 Recorde d zoster vaccine, inactivated 11/20/18 Recorded zoster vaccine, inactivated 09/17/18 Recorded tetanus/diphtheria/pertussis, acel(Tdap) 06/05/18 Recorded 1Result Comment: [facility]:[id number] Medications Aerochamber w/Mask (Large) See Instructions, # [...] 10:38:00 EST, Aerosol, Route to Pharmacy Electronically, [id number], [facility] #[id number], 1... Start Date: 08/07/22 Status: Ordered AutoASV [...] Refills, Maintenance, 06/23/22 14:08:00 EDT, ER Tablet, [facility] #[id number], Partial fillupon patient request if the prescription [...] 30 capsule, 5 Refills, 08/14/22 12:55:00 EST, [facility] #[id number], 157.5, cm, 08/07/22 10:53:00 EST, Height, 82.8, kg, 08/07/22 10:17:00 EST, Dry Weight Start Date: 08/14/22 Status: Ordered duloxetine 60 mg oral enteric coated capsule 1 capsule = 60 mg, By Mouth, Daily, take with 30mg capsule for total 90mg daily, # 30 capsule, 5 Refills, Maintenance, 03/09/22 11:52:00 EDT, [facility] #[id number], 157.5, cm, 02/09/22 19:12:00EDT, Height, 77, kg, 01/13/22 9:51:00 EDT, Dry Weight Start Date: 03/09/22 Status: Ordered ferrous sulfate 325 mg oral enteric coated tablet 1, tablet, By Mouth, Daily, # 30 tablet, Refills 1, Maintenance, 05/06/22 11:08:00 EDT, Route to Pharmacy Electronically, [facility] #[id number], 157.5, cm, 05/01/22 9:45:00 EDT, Height, 83.4, kg, 05/01/22 9:11:00 EDT, Dry Weight Start Date: 05/06/22 Status: Ordered Flovent HFA 110 mcg/inh inhalation aerosol 1 puffs, Inhalation, 2 times a day, rinse mouth and throat after use, # 1 each, 2 Refills, Maintenance, 08/07/22 10:36:00 EST, Aerosol, [facility] #[id number], Partial fill upon patient request if the [...] 60 tablet, 2 Refills,Maintenance, 05/06/22 11:08:00 EDT, [facility] #[id number], 157.5, cm, 05/01/22 9:45:00 EDT, Height, 83.4, kg, 05/01/22 9:11:00 EDT, Dry Weight Start Date: 05/06/22 Status: Ordered ipratropium nasal 21 mcg/inh spray See Instructions, PRN Nasal Congestion, 1 spray each nostril BID, # 1 each, 4 Refills, Maintenance,06/04/22 11:24:00 EDT, [facility] #[id number], Partial fill upon patient request if the [...] Refills, Maintenance, 09/02/22 23:37:00 EST, CR Tablet, [facility] #[id number], Partial fill upon patient request if the [...] 90 tablet, 3 Refills, 06/23/22 14:01:00 EDT, [facility] #[id number], 157.5, cm, 06/23/22 13:25:00 EDT, Height, 81.3, [...] arthroscopic knee surgery: 2006 & 2008 at [facility] Confirmed Active Status post knee surgery, [facility] 05/02/01 Confirmed 05/02/01 Active Lumbar facet [...] trigger thumb by Alex Putnam M.D. at [facility] 7Retrial prescribed 12/17/20. On 01/15, at [...] Sandhya Tsai MD, Cj Reyna Position: [facility] Anesthesiology MD Member Role: Lifetime Consulting Physician Address: Address: [address] [place] [address] [place] [address]- Name: Christiano FANG, Tito [place] Position: [facility] Primary Care Physician Member Role: PCP Address: Address: [address] [place] [address] Adult & [place] [address]- Care Team Related Persons Name: BRAYAN VELAZCO Address: [address] [place] [address] Name: NOEL LIZAMA Address: [address] [place] [address] Name: FADY NIELSON Address: [address] [place] [address]
--- OUTSIDE RECORDS SUMMARY | 2024-06-15 11:12 | XMS_ITS | Continuity of Care Document ---
Author Organization [facility] Address [address] [place] [address]- Care Team Providers Care Browning Processor Name Role Phone Tammie FANG, Jo-Ann Primary Care Physician [phone] Encounter [facility] Date(s): 01/28/21 - 02/27/21 [facility] [address] [place] [id number] Allergies, Adverse Reactions, Alerts Substance Reaction [...] tablet, 0 Refills, Maintenance, 01/29/21 9:17:00 EDT, [facility] #[id number], Please also refill fluoxetine. Thank you!, 1 tab qa.m, 0.5-1 tab midday and 0-1 tab q 4... Start Date: 01/29/21 Status: Ordered Calcium 600 +D By Mouth, 0 Refills, Maintenance, 01/04/20 7:48:00 EDT Start Date: 5/14/20 Status: Ordered Cannabis (Schedule I Substance) 0 [...] film, 0 Refills, Maintenance, 02/04/21 11:19:00 EDT, [facility] #[id number], Partial fill upon patient request, 163, cm, 02/04/21 8:59:00 EDT, Height, 64.2, kg, 03/18/19 12:29:00 EDT, Dry Weight Start Date: 02/04/21 Status: Ordered FLUoxetine 20 mg oral capsule 60 mg, 3, capsule, By Mouth, Daily, # 84 capsule, Refills 2, Tot. Refills 2, Maintenance, 12/23/20 17:07:00 EDT, Route to Pharmacy Electronically, [facility] #[id number], 163, cm, 12/23/20 13:59:00 EDT, Height, 64.2, kg, 03/18/19 12:29:00 EDT, . Start Date: 12/23/20 Status: Ordered HYDROmorphone 4 mg oral tablet 1 tablet = 4 mg, By Mouth, 5 times a day, PRN breakthrough pain. STOP hydrocodone/APAP, # 70 tablet, 0 Refills, Maintenance, 01/23/21 12:31:00 EDT, [facility] #[id number], Partial fill upon patient request, 163, cm, [...] tablet, 2 Refills, Maintenance, 11/21/20 8:46:00 EDT, [facility] #[id number], 163, cm, 11/21/20 7:51:00 EDT, Height, 64.2, [...] e surgery: 2006 & 2008 at [facility](Confirmed) Active Status post knee surgery, [facility] 05/02/01(Confirmed) 05/02/01 Active Lumbar facet joint [...] Oswestry Disability Index: 35% moderate disability , [place] Back Pain Disability Scale: 35and Neck Disability Index: 8 on 06/29/19. 6Updated [place]estry Disability Index: 2% ( minimal disability ) on 06/09/18; updated [place] Back Pain Disability Scale score: 4 on [...] trigger thumb by Alex Putnam M.D. at [facility] 10Retrial prescribed 12/17/20. On 01/15, at 10mg [...]
--- OUTSIDE RECORDS SUMMARY | 2024-06-15 11:12 | XMS_ITS | Continuity of Care Document ---
Author Organization [facility] Address [address] [place] [address]- Care Team Providers Care Compensation/Benefits Specialist Name Role Phone Ronnie FANG, Johann Briggs Primary Care Physician [phone] Encounter [facility] Date(s): 12/22/22 - 01/21/23 [facility] [address] [place] [address]- Allergies, Adverse Reactions, Alerts Substance Reaction Severity Status codeine nausea Active iodinated radiocontrast dyes N/V Active Immunizations Given and Recorded Vaccine Date Status Refusal Reason influenza virus vaccine, inactivated 1 06/02/22 Gi laurie influenza virus vaccine, inactivated 06/05/18 Mars rded influenza virus vaccine, inactivated 06/17/17 Mars rded [id number] 12y+ bivalent booster vax 03/27/22 Recorded SARS-CoV-2 (COVID-19) mRNA BNT-162b2 vac 08/21/21 Recorded SARS-CoV-2 (COVID-19) Ad26 vaccine 12/02/20 Given Influenza Virus Vaccine (oldterm) 07/13/20 Recorde d zoster vaccine, inactivated 11/20/18 Recorded zoster vaccine, inactivated 09/17/18 Recorded tetanus/diphtheria/pertussis, acel(Tdap) 06/05/18 Recorded 1Result Comment: [facility]:[id number] Medications AutoASV EPAPmin 8 EPAPmax 12 PSmin 3 PSmax 15 with heated humidification AutoASV EPAPmin 8 EPAPmax 12 PSmin 3 PSmax 15 with heated humidification, See Instructions, # 1 each, Refills 0, Tot. Refills 0, Maintenance, use overnight and naps from [employer], 06/16/22 14:12:00 EDT,Compound Start Date: 06/16/22 Status: Ordered buPROPion 150 mg/12 hours (SR) oral tablet, extended release 1 tablet = 150 mg, By Mouth, 2 times a day, dose increase, # 60 tablet, 3 Refills, Maintenance, 11/10/22 10:38:00 EDT, ER Tablet, [facility] #[id number], Partial fill upon patient request if theprescription [...] coated capsule 1 capsule, By Mouth, Daily, take with 60mg cap for total 90mg dose daily, # 30 capsule, 5 Refills, Maintenance, 12/15/22 12:42:00 EDT, [facility] #[id number], 157.5, cm, 12/07/22 11:15:00 EDT, Height, 85, kg, 11/10/22 10:21:00 EDT, Dry Weight Start Date: 12/15/22 Status: Ordered ferrous sulfate 325 mg oral enteric coated tablet 1, tablet, By Mouth, Daily, # 30 tablet, Refills 1, Maintenance, 05/06/22 11:08:00 EDT, Route to Pharmacy Electronically, [facility] #[id number], 157.5, cm, 05/01/22 9:45:00 EDT, Height, 83.4, kg, 05/01/22 9:11:00 EDT, Dry Weight Start Date: 05/06/22 Status: Ordered gabapentin 100 mg oral capsule 100 mg, 1, capsule, By Mouth, 3 times a day, # 90 capsule, Refills 1, Tot. Refills 1, Maintenance, 12/07/22 11:26:00 EDT, Route to Pharmacy Electronically, [facility] #[id number], Partial fill upon patient request if the prescription is for a armond... Start Date: 12/07/22 Status: Ordered hydrOXYzine hydrochloride 25 mg oral tablet 1 TO 1 AND 1/2 TABLETS, By Mouth, 3 times a day, PRN NEEDED FOR ANXIETY, # 120 tablet, 0 Refills, Maintenance, 01/14/23 23:42:00 EDT, [facility] #[id number], 157.5, cm, 12/07/22 11:15:00 EDT,Height, 85, kg, 11/10/22 10:21:00 EDT, Dry Weight Start Date: 01/14/23 Status: Ordered ipratropium nasal 21 mcg/inh spray See Instructions, PRN Nasal Congestion, 1 spray each nostril BID, # 1 each, 4 Refills, Maintenance,06/04/22 11:24:00 EDT, [facility] #[id number], Partial fill upon patient request if the [...] Refills, Maintenance, 09/02/22 23:37:00 EST, CR Tablet, [facility] #[id number], Partial fill upon patient request if the prescription is for a schedule II opioid drug., 157.5, cm, 08/07/22 10:53:0... Start Date: 09/02/22 Status: Ordered pramipexole 0.125 mg oral tablet 3 tablet, By Mouth, Daily at bedtime, # 90 tablet, 3 Refills, Maintenance, 10/12/22 18:54:00 EST, [facility] #[id number], 157.5, cm, 08/07/22 10:53:00 EST, Height, 82.8, [...] arthroscopic knee surgery: 2006 & 2008 at [facility] Confirmed Active Status post knee surgery, [facility] 05/02/01 Confirmed 05/02/01 Active Hypertension Confirmed Active [...] trigger thumb by Alex Putnam M.D. at [facility] 7Retrial prescribed 12/17/20. On 01/15, at [...] Tsai MD, Cj Reyna Position: [facility] Anesthesiology MD Member Role: Lifetime Consulting Physician Address: Address: [address] [place] [address] [place] [address]- Name: Johann Trujillo MD Position: Reference Physician Member Role: PCP Address: Address: [address] [place] [address]- Care Team Related Persons Name: BRAYAN VELAZCO Address: [address] [place] [address] Name: ABDON VELAZCO Name: NOEL LIZAMA Address: home [address] [place] [address] Name: FADY NIELSON Address: home [address] [place] [address]
--- OUTSIDE RECORDS SUMMARY | 2024-06-15 11:12 | XMS_ITS | Continuity of Care Document ---
Author Organization [facility] Address [address] [place] [address]- Care Team Providers Care Chest Painting Leader Name Role Phone Tito Alvarado MD Primary Care Physician Encounter [facility] Date(s): 08/05/21 - 10/02/21 [facility] [address] [place], [place] [address] Attending Physician: Tito Alvarado MD Allergies, Adverse [...] Supply Start Date: 11/21/20 Status: Ordered duloxetine 30 mg oral enteric coated capsule 1 capsule = 30 mg, By Mouth, Daily, to be taken with 60mg cap for total daily dose 90mg daily, # 30capsule, 3 Refills, Maintenance, 10/02/21 15:44:00 EST, EC Capsule, [facility] #[id number], Partial fill upon patient request if the prescription... Start Date: 10/02/21 Status: Ordered duloxetine 60 mg oral enteric coated capsule 1 capsule = 60 mg, By Mouth, Daily, fill when patient next requests. To be taken with 30mg cap for total 90mg daily dose, # 30 capsule, 3 Refills, Maintenance, 10/02/21 15:45:00 EST, [facility] #[id number], 163, cm, 08/27/21 9:26:00 EST, Height,... Start Date: 10/02/21 Status: Ordered magnesium oxide 500 mg oral tablet 1 tablet = 500 mg, By Mouth, Daily, 0 Refills, Maintenance, 05/21/20 7:47:00 EDT Start Date: 05/21/20 Status: Ordered Metamucil 3.4 gm/5.2 gm oral powder for reconstitution = 3.4 Gm, By Mouth, 2 times a day, # 450 Gm, 1 Refills, Maintenance, 09/17/21 13:09:00 EST, [facility] #[id number], Partial fill upon patient request if the prescription is for a schedule II opioid drug., 163, cm, 08/27/21 9:26:00 EST, Height, 63... Start Date: 09/17/21 Status: Ordered NuLYTELY with Flavor Packs oral powder for reconstitution See Instructions, Drink 240mL every 15-20 minutes until first half is gone. Repeat 6 hours prior toprocedure., # 4,000 mL, 0 Refills, Maintenance, 09/17/21 13:09:00 EST, [facility] #[id number],Partial fill upon patient request if the prescript... Start Date: 09/17/21 Status: Ordered Physical Therapy Physical Therapy, See Instructions, # 1 each, Refills 0, Tot. Refills 0, Maintenance, Evaluate and treat bilateral shoulder pain., 06/02/21 10:52:00 EDT, Supply Start Date: 06/02/21 Status: Ordered psyllium 3.4 g/5.4 g oral powder for reconstitution = 3.4 Gm, By Mouth, Daily, titrate as needed, # 822 Gm, 0 Refills, Maintenance, 09/23/21 13:03:00 EST, [facility] #[id number], Partial fill upon patient request if the prescription is for a schedule II opioid drug., 163, cm, 08/27/21 9:26:00 EST,... Start Date: 09/23/21 Status: Ordered Readi-Cat 2 oral suspension 450 [...] 08/08/21 16:04:00 EST, Route to Pharmacy Electronically, [facility] #[id number], Partial fi... Start Date: 08/08/21 Stop Date: 11/06/21 Status: Ordered topiramate 100 mg oral tablet 3 tablet = 300 mg, By Mouth, Daily at bedtime, # 84 tablet, 1 Refills, Maintenance, 08/26/21 14:05:00 EST, [facility] #[id number], 163, cm, 08/06/21 14:34:00 EST, Height, 63, [...] Refills, Soft Stop, 08/19/21 12:22:00 EST, Tablet, [facility] #[id number], Partial fill upon patient request if the [...] kne e surgery: 2006 & 2008 at [facility](Confirmed) Active Status post knee surgery, [facility] 05/02/01(Confirmed) 05/02/01 Active Lumbar facet joint pain(Confirmed) [...] Index: 48% ( severe disability ); updated [place] Back Pain Disability Scale score: 61; both on 07/02/21 7Updated Oswestry Disability Index: 35% moderate disability , [place] Back Pain Disability Scale: 35and Neck Disability Index: 8 on 06/29/19. 8Updated Oswestry Disability Index: 2% ( minimal disability ) on 06/09/18; updated [place] Back Pain Disability Scale score: 4 on 06/09/18; updated Neck Disability Index: 4% on 06/09/18 9Updated Oswestry Disability Index: 22% ( moderate disability ) on 05/26/17; updated [facility] Back Pain Disability Scale score: 18 on 05/26/17. 10Initial Oswestry Disability Index: 50% ( severe disability ) on 03/31/16; initial Neck Disability Index: 42% ( severe disability ) on 03/31/16; initial [facility] Back Pain Disability Scale score: 46 on 03/31/16. 11On 09/30/17 underwent Tenolysis, right thumb, for Right trigger thumb by Alex Putnam M.D. at [facility] 12Retrial prescribed 12/17/20. On 01/15, at 10mg [...] History Type Response Smoking Status Former smoker; [facility] [[email or web address] ed at age: 50; entered on: 03/11/17 Sex Female
--- OUTSIDE RECORDS SUMMARY | 2024-06-15 11:12 | XMS_ITS | Continuity of Care Document ---
Author Organization [facility] Address [address] [place] [address]- Care Team Providers Care Hot Saw Helper Name Role Phone Christiano FANG, Tito England Primary Care Physician [phone] [place] [facility] [place] 12[place]15[place] - 01/14/22 [facility] [address] [place], [place] [address] Allergies, Adverse Reactions, Alerts Substance Reaction [...] 12/12/21 11:12:00 EDT, Route to Pharmacy Electronically, [facility] #[id number], Partial fill upon patient request if the prescription is... Start Date: 12/12/21 Status: Ordered Calcium 600 +D 1 tablet, By Mouth, Daily at bedtime, 0 Refills, Maintenance, 01/04/20 7:48:00 EDT Start Date: 01/04/20 Status: Ordered Cannabis (Schedule I Substance) 2 puffs, Inhalation, Every 2 hours, PRN as needed for pain, 0 Refills, Maintenance, 04/22/16 14:08:47 EDT Start Date: 04/22/16 Status: Ordered Dilaudid 2 mg oral tablet 1 tablet = 2 mg, By Mouth, Every 4 hours, PRN as needed for pain, 1-2 tablets every 4-6 hours as needed, 0 Refills, Maintenance, 01/13/22 10:32:00 EDT, Tablet, Partial fill upon patient request if the prescription is for a schedule II opioid drug. Start Date: 01/13/22 Status: Ordered duloxetine 30 mg oral enteric coated capsule 1 capsule = 30 mg, By Mouth, Daily, to be taken with 60mg cap for total daily dose 90mg daily, # 30capsule, 3 Refills, Maintenance, 10/02/21 15:44:00 EST, EC Capsule, [facility] #[id number], Partial fill upon patient request if the prescription... Start Date: 10/02/21 Status: Ordered duloxetine 60 mg oral enteric coated capsule 1 capsule = 60 mg, By Mouth, Daily, fill when patient next requests. To be taken with 30mg cap for total 90mg daily dose, # 30 capsule, 3 Refills, Maintenance, 10/02/21 15:45:00 EST, [facility] #[id number], 163, cm, 08/27/21 9:26:00 EST, Height,... Start Date: 10/02/21 Status: Ordered ferrous sulfate 325 mg oral enteric coated tablet 325 mg, 1, tablet, By Mouth, Daily, # 30 tablet, Refills 2, Tot. Refills 2, Maintenance, 12/05/21 11:39:00 EDT, Route to Pharmacy Electronically, [facility] #[id number], Partial fill upon patient request if the prescription is for a schedule II o... Start Date: 12/05/21 Status: Ordered hydrOXYzine hydrochloride 25 mg oral tablet 1-1.5 tablet, By Mouth, 3 times a day, PRN for anxiety, dose increase, # 60 tablet, 1 Refills, Maintenance, 01/09/22 13:02:00 EDT, Tablet, [facility] #[id number], Partial fill upon patient request if the prescription is for a schedule II opioid d... Start Date: 01/09/22 Status: Ordered magnesium oxide 500 mg oral tablet 1 tablet = 500 mg, By Mouth, Daily at bedtime, 0 Refills, Maintenance, 05/21/20 7:47:00 EDT Start Date: 05/21/20 Status: Ordered Myrbetriq 25 mg oral tablet, extended release 1 tablet = 25 mg, By Mouth, Daily at bedtime, Maintenance, 11/20/21 12:16:00 EDT Start Date: 11/20/21 Status: Ordered naproxen 500 mg oral tablet 1 tablet = 500 mg, By Mouth, 2 times a day, for 30 days, # 60 tablet, 0 Refills, Acute 02/12/22 11:37:00 EDT, 01/13/22 11:37:00 EDT, [facility] #[id number], Partial fill upon patient request if the prescription is for a schedule II opioid... Start Date: 01/13/22 Stop Date: 02/12/22 Status: Ordered Physical Therapy Physical Therapy, See Instructions, # 1 each, Refills 0, Tot. Refills 0, Maintenance, Evaluate and treat bilateral shoulder pain., 06/02/21 10:52:00 EDT, Supply Start Date: 06/02/21 Status: Ordered pramipexole 0.125 mg oral tablet 1 tablet = 0.125 mg, By Mouth, 2 times a day, dose increase, # 60 tablet, 2 Refills, Maintenance, 12/30/21 15:02:00 EDT, Tablet, [facility] #[id number], Partial fill upon patient request if the prescription is for a schedule II opioid drug., 157.... Start Date: 12/30/21 Status: Ordered VESIcare 10 mg oral tablet [...] kne e surgery: 2006 & 2008 at [facility](Confirmed) Active Status post knee surgery, [facility] 05/02/01(Confirmed) 05/02/01 Active Lumbar facet joint pain(Confirmed) Active Lumbar radiculopathy, right(Confirmed) Active Radiculitis, lumbosacral rig ht S1 +/- L5 new 03/2019(Confirmed) 03/2019 Active Mechanical low back pain(Confirmed) Active Median nerve neuropathy, left(Confirmed) Active Myofascial pain, regional(Confirmed) Active Neuropathy, sacral, S1 bilaterally(Confirmed) Active Adverse effect of non-opioid analgesic: memantine(Confirmed) 12, 13 Active Obese class I(Confirmed) Active Osteopenia(Confirmed) Active Buttock pain, right- at [...] moderate disability ) on 05/26/17; updated [facility] Back Pain Disability Scale score: 18 on 05/26/17. 10Initial Oswestry Disability Index: 50% ( severe disability ) on 03/31/16; initial Neck Disability Index: 42% ( severe disability ) on 03/31/16; initial [facility] Back Pain Disability Scale score: 46 on 03/31/16. 11On 09/30/17 underwent Tenolysis, right thumb, for Right trigger thumb by Alex Putnam M.D. at [facility] 12Retrial prescribed 12/17/20. On 01/15, at [...]
--- OUTSIDE RECORDS SUMMARY | 2024-06-15 11:12 | XMS_ITS | Continuity of Care Document ---
Author Organization [facility] Address [address] [place] [address]- Care Team Providers Care Meteorology Instructor Name Role Phone Tito Alvarado MD Primary Care Physician Encounter [facility] [place] Date(s): 06/02/22 - 06/09/22 [facility] [address] [place], [place] [address] Encounter Diagnosis Rib pain on right side(Discharge Diagnosis) - 06/02/22 Elevated blood pressure reading(Discharge Diagnosis) - 06/02/22 Attending Physician: Tito Alvarado MD Allergies, Adverse Reactions, Alerts Substance Reaction Severity Status codeine nausea Active iodinated radiocontrast dyes N/V Active Immunizations Given and Recorded Vaccine Date Status Refusal Reason influenza virus vaccine, inactivated 1 06/02/22 Gi laurie influenza virus vaccine, inactivated 06/05/18 Mars rded influenza virus vaccine, inactivated 06/17/17 Mars rded [id number] 12y+ bivalent booster vax 03/27/22 Recorded SARS-CoV-2 (COVID-19) mRNA BNT-162b2 vac 08/21/21 Recorded SARS-CoV-2 (COVID-19) Ad26 vaccine 12/02/20 Given Influenza Virus Vaccine (oldterm) 07/13/20 Recorde d zoster vaccine, inactivated 11/20/18 Recorded zoster vaccine, inactivated 09/17/18 Recorded tetanus/diphtheria/pertussis, acel(Tdap) 06/05/18 Recorded 1Result Comment: [facility]:[id number] Medications Calcium 600 +D 1 tablet, By [...] capsule, 5 Refills, Maintenance, 03/09/22 11:52:00 EDT, [facility] #[id number], 157.5, cm, 02/09/22 19:12:00EDT, Height, 77, kg, 01/13/22 9:51:00 EDT, Dry Weight Start Date: 03/09/22 Status: Ordered ferrous sulfate 325 mg oral enteric coated tablet 1, tablet, By Mouth, Daily, # 30 tablet, Refills 1, Maintenance, 05/06/22 11:08:00 EDT, Route to Pharmacy Electronically, [facility] #[id number], 157.5, cm, 05/01/22 9:45:00 EDT, Height, 83.4, [...] 60 tablet, 2 Refills,Maintenance, 05/06/22 11:08:00 EDT, [facility] #[id number], 157.5, cm, 05/01/22 9:45:00 EDT, Height, 83.4, kg, 05/01/22 9:11:00 EDT, Dry Weight Start Date: 05/06/22 Status: Ordered ipratropium nasal 21 mcg/inh spray See Instructions, PRN Nasal Congestion, 1 spray each nostril BID, # 1 each, 4 Refills, Maintenance,06/04/22 11:24:00 EDT, [facility] #[id number], Partial fill upon patient request if the prescription is for a schedule II opioid drug., 1 spray ea... Start Date: 06/04/22 Status: Ordered Left ankle gel or air [...] a day, # 60 tablet, 3 Refills, [facility] #[id number], 157.5, cm, 03/26/22 13:17:00 EDT, Height, 77, [...] Hospital Confirmed Active Status post knee surgery, [facility] 05/02/01 Confirmed 05/02/01 Active Lumbar facet [...] Index: 48% ( severe disability ); updated [place] Back Pain Disability Scale score: 61; both on 07/02/21 7Updated Oswestry Disability Index: 35% moderate disability , [place] Back Pain Disability Scale: 35and Neck Disability Index: 8 on 06/29/19. 8Updated Oswestry Disability Index: 2% ( minimal disability ) on 06/09/18; updated [place] Back Pain Disability Scale score: 4 on 06/09/18; updated Neck Disability Index: 4% on 06/09/18 9Updated Oswestry Disability Index: 22% ( moderate disability ) on 05/26/17; updated [facility] Back Pain Disability Scale score: 18 on 05/26/17. 10Initial Oswestry Disability Index: 50% ( severe disability ) on 03/31/16; initial Neck Disability Index: 42% ( severe disability ) on 03/31/16; initial [facility] Back Pain Disability Scale score: 46 on 03/31/16. 11On 09/30/17 underwent Tenolysis, right thumb, for Right trigger thumb by Alex Putnam M.D. at [facility] 12Retrial prescribed 12/17/20. On 01/15, at 10mg bid off balance and nearly fell twice. No clear pn reduction. Dose reduced. Trial abandoned 6/2/21. 13Memantine prescribed 01/25/20. With dose escal., pn [...] Dates Health Status Cl inical Service Informant Rib pain on right side Discharge Diagnosis 06/02/22 Elevated blood pressure reading Discharge Diagnosis 06/02/22 Vital Signs Most recent to oldest [Reference Range]: 1 2 Height 157.5 cm (06/02/22 11:02 AM) 157.5 cm (06/02/22 10:56 AM) Weight 81.3 kg (06/02/22 10:56 AM) Oxygen Saturation [94-100 %] 100 % (06/02/22 11:02 AM) 100 % (06/02/22 10:56 AM) Pulse Rate [55-90 bpm] 71 bpm (06/02/22 11:02 AM) 78 bpm (06/02/22 10:56 AM) Body Mass Index [18.5-24.99 kg/m2] 32.77 kg/m2 *>HHI* (06/02/22 10:56 AM) Blood Pressure [90-138/55-84 mm Hg] 152/ 81mm Hg *H* (06/02/22 11:02 AM) 154/91mm Hg *H* (06/02/22 10:56 AM) Blood pressure sites Arm, right (06/02/22 11:02 AM) Arm, right (06/02/22 10:56 AM) Dry Weight 81.3 kg (06/02/22 10:56 AM) Weight Obtained Via Standing scale (06/02/22 10:56 AM) Social History Social History Type Response Smoking Status Former smoker; Stopp ed at age: 50; entered on: 03/11/17 Sex Female Patient Care team information Personnel Name: Tito Alvarado MD Address: Address: [address] [place] [address] Adult [facility] Pediatric [facility] [place], [place] [address]
--- OUTSIDE RECORDS SUMMARY | 2024-06-15 11:13 | XMS_ITS | Continuity of Care Document ---
Author Organization [facility] Address [address] [place] [address]- Care Team Providers Care Viscera Washer Name Role Phone Christiano FANG, Tito England Primary Care Physician [phone] Encounter [facility] Date(s): 09/02/21 - 10/02/21 [facility] [address] [place], [place] [address] Allergies, Adverse Reactions, Alerts Substance [...] Refills, Maintenance, 10/02/21 15:44:00 EST, EC Capsule, [facility] #[id number], Partial fill upon patient request if the prescription... Start Date: 10/02/21 Status: Ordered duloxetine 60 mg oral enteric coated capsule 1 capsule = 60 mg, By Mouth, Daily, fill when patient next requests. To be taken with 30mg cap for total 90mg daily dose, # 30 capsule, 3 Refills, Maintenance, 10/02/21 15:45:00 EST, [facility] #[id number], 163, cm, 08/27/21 9:26:00 EST, Height,... Start Date: 10/02/21 Status: Ordered magnesium oxide 500 mg oral tablet 1 tablet = 500 mg, By Mouth, Daily, 0 Refills, Maintenance, 05/21/20 7:47:00 EDT Start Date: 05/21/20 Status: Ordered Metamucil 3.4 gm/5.2 gm oral powder for reconstitution = 3.4 Gm, By Mouth, 2 times a day, # 450 Gm, 1 Refills, Maintenance, 09/17/21 13:09:00 EST, [facility] #[id number], Partial fill upon patient request if the prescription is for a schedule II opioid drug., 163, cm, 08/27/21 9:26:00 EST, Height, 63... Start Date: 09/17/21 Status: Ordered NuLYTELY with Flavor Packs oral powder for reconstitution See Instructions, Drink 240mL every 15-20 minutes until first half is gone. Repeat 6 hours prior toprocedure., # 4,000 mL, 0 Refills, Maintenance, 09/17/21 13:09:00 EST, [facility] #[id number],Partial fill upon patient request if the prescript... [...] Gm, 0 Refills, Maintenance, 09/23/21 13:03:00 EST, [facility] #[id number], Partial fill upon patient request if the [...] 08/08/21 16:04:00 EST, Route to Pharmacy Electronically, [facility] #[id number], Partial fi... Start Date: 08/08/21 Stop Date: 11/06/21 Status: Ordered topiramate 100 mg oral tablet 3 tablet = 300 mg, By Mouth, Daily at bedtime, # 84 tablet, 1 Refills, Maintenance, 08/26/21 14:05:00 EST, [facility] #[id number], 163, cm, 08/06/21 14:34:00 EST, Height, 63, [...] Refills, Soft Stop, 08/19/21 12:22:00 EST, Tablet, [facility] #[id number], Partial fill upon patient request if the [...] kne e surgery: 2006 & 2008 at [facility](Confirmed) Active Status post knee surgery, [facility] 05/02/01(Confirmed) 05/02/01 Active Lumbar facet joint [...] ( moderate disability ) on 05/26/17; updated [facility] Back Pain Disability Scale score: 18 on 05/26/17. 10Initial Oswestry Disability Index: 50% ( severe disability ) on 03/31/16; initial Neck Disability Index: 42% ( severe disability ) on 03/31/16; initial [facility] Back Pain Disability Scale score: 46 on 03/31/16. 11On 09/30/17 underwent Tenolysis, right thumb, for Right trigger thumb by Alex Putnam M.D. at [facility] 12Retrial prescribed 12/17/20. On 01/15, at [...]
--- OUTSIDE RECORDS SUMMARY | 2024-06-15 11:13 | XMS_ITS | Continuity of Care Document ---
Author Organization [facility] Address [address] [place] [address]- Care Team Providers Care Molding Fitter Name Role Phone Tammie FANG, Jo-Ann Primary Care Physician Encounter [facility] Date(s): 11/26/20 - 12/26/20 [facility] [address] [place] [id number] Allergies, Adverse Reactions, Alerts Substance [...] tablet, 0 Refills, Maintenance, 12/23/20 17:16:00 EDT, [facility] #[id number], DX: F90.0., 1 tab qa.m, 0.5-1 tab [...] per day PRN anxiety, PRN spasms, # 112 tablet, Refills 1, Tot. Refills 1, Maintenance, pain/spams, 12/23/20 17:16:00 EDT, Instructions Replace Required Details, Route to Pharmacy Electronically, [facility]... Start Date: 12/23/20 Status: Ordered FLUoxetine 20 mg oral capsule 60 mg, 3, capsule, By Mouth, Daily, # 84 capsule, Refills 2, Tot. Refills 2, Maintenance, 12/23/20 17:07:00 EDT, Route to Pharmacy Electronically, [facility] #[id number], 163, cm, 12/23/20 13:59:00 EDT, Height, 64.2, kg, 03/18/19 12:29:00 EDT, . Start Date: 12/23/20 Status: Ordered FLUoxetine 40 mg oral capsule 1 capsule = 40 mg, By Mouth, Daily, # 30 capsule, 1 Refills, Maintenance, 10/23/20 17:26:00 EST, [facility] #[id number], 163, cm, 10/23/20 14:46:00 EST, Height, 64.2, [...] tablet, 0 Refills, Maintenance, 12/23/20 13:04:00 EDT, [facility] #[id number], This NMDA receptor agonist is being used to tr... Start Date: 12/23/20 Status: Ordered [place] 325 mg-10 mg oral tablet 1 - 1.5 tablets, By Mouth, Every 4 hours, PRN pain.max of 6 tabs/day., # 168 tablet, 0 Refills, Maintenance, 12/23/20 13:14:00 EDT, [email or web address] #[id number], Partial fill upon pt request. DX: M54.81, M54.5, M54.17, 1 - 1.5 tablets By Mouth Every 4... Start Date: 12/23/20 Status: Ordered topiramate 100 mg oral tablet 3 tablets, By Mouth, Daily at bedtime, # 84 tablet, 2 Refills, Maintenance, 11/21/20 8:46:00 EDT, [email or web address] #[id number], 163, cm, 11/21/20 7:51:00 EDT, Height, 64.2, [...] kne e surgery: 2006 & 2008 at [facility](Confirmed) Active Status post knee surgery, [facility] 05/02/01(Confirmed) 05/02/01 Active Lumbar facet joint pain(Confirmed) [...] ( moderate disability ) on 05/26/17; updated [facility] Back Pain Disability Scale score: 18 on 05/26/17. 8Initial Oswestry Disability Index: 50% ( severe disability ) on 03/31/16; initial Neck Disability Index: 42% ( severe disability ) on 03/31/16; initial [facility] Back Pain Disability Scale score: 46 on 03/31/16. 9On 09/30/17 underwent Tenolysis, right thumb, for Right trigger thumb by Alex Putnam M.D. at [facility] 10Memantine prescribed 01/25/20. With dose escal., [...]
--- OUTSIDE RECORDS SUMMARY | 2024-06-15 11:13 | XMS_ITS | Continuity of Care Document ---
Author Organization [facility] Address [address] [place] [address]- Care Team Providers Care Etcher Machine Name Role Phone Tammie FANG, Jo-Ann Primary Care Physician Encounter [facility] Date(s): 01/23/21 - 02/22/21 [facility] [address] [place] [id number] Allergies, Adverse Reactions, Alerts Substance Reaction Severity [...] tablet, 0 Refills, Maintenance, 01/29/21 9:17:00 EDT, [facility][id number], Please also refill fluoxetine. Thank you!, 1 [...] film, 0 Refills, Maintenance, 02/04/21 11:19:00 EDT, [facility] #[id number], Partial fill upon patient request, 163, cm, 02/04/21 8:59:00 EDT, Height, 64.2, kg, 03/18/19 12:29:00 EDT, Dry Weight Start Date: 02/04/21 Status: Ordered FLUoxetine 20 mg oral capsule 60 mg, 3, capsule, By Mouth, Daily, # 84 capsule, Refills 2, Tot. Refills 2, Maintenance, 12/23/20 17:07:00 EDT, Route to Pharmacy Electronically, [facility] #[id number], 163, cm, 12/23/20 13:59:00 EDT, Height, 64.2, kg, 03/18/19 12:29:00 EDT, . Start Date: 12/23/20 Status: Ordered HYDROmorphone 4 mg oral tablet 1 tablet = 4 mg, By Mouth, 5 times a day, PRN breakthrough pain. STOP hydrocodone/APAP, # 70 tablet, 0 Refills, Maintenance, 01/23/21 12:31:00 EDT, [facility] #[id number], Partial fill upon patient request, 163, cm, [...] tablet, 2 Refills, Maintenance, 11/21/20 8:46:00 EDT, [facility] #[id number], 163, cm, 11/21/20 7:51:00 EDT, Height, 64.2, [...] kne e surgery: 2006 & 2008 at [facility](Confirmed) Active Status post knee surgery, [facility] 05/02/01(Confirmed) 05/02/01 Active Lumbar facet joint [...] Index: 35% moderate disability , [place] Back Pain Disability Scale: 35and Neck Disability Index: 8 on 06/29/19. 6Updated Oswestry Disability Index: 2% ( minimal disability ) on 06/09/18; updated [place] Back Pain Disability Scale score: 4 on 06/09/18; updated Neck Disability Index: 4% on 06/09/18 7Updated Oswestry Disability Index: 22% ( moderate disability ) on 05/26/17; updated [facility] Back Pain Disability Scale score: 18 on 05/26/17. 8Initial Oswestry Disability Index: 50% ( severe disability ) on 03/31/16; initial Neck Disability Index: 42% ( severe disability ) on 03/31/16; initial [facility] Back Pain Disability Scale score: 46 on 03/31/16. 9On 09/30/17 underwent Tenolysis, right thumb, for Right trigger thumb by Alex Putnam M.D. at [facility] 10Retrial prescribed 12/17/20. On 01/15, at 10mg [...]
--- OUTSIDE RECORDS SUMMARY | 2024-06-15 11:13 | XMS_ITS | Continuity of Care Document ---
Author Organization [facility] Address [address] [place] [address]- Care Team Providers Care Supply Chain Generalist Name Role Phone Jo-Ann Cho MD Primary Care Physician Encounter [facility] Date(s): 01/04/20 - 01/11/20 [facility] [address] [place] [address]- [facility] Attending Physician: Cj Arthur Jr, MD Referring Physician: Jo-Ann Cho MD Allergies, Adverse Reactions, Alerts Substance Reaction Severity Status codeine nausea Active pentosan polysulfate sodium nausea Active iodinated radiocontrast dyes N/V Active Immunizations Given and Recorded Vaccine Date Status Refusal Reason zoster vaccine, inactivated 11/20/18 Recorded zoster vaccine, inactivated 09/17/18 Recorded influenza virus vaccine, inactivated 06/05/18 Mars rded tetanus/diphtheria/pertussis, acel(Tdap) 06/05/18 Recorded Medications Calcium 600 +D By Mouth, 0 Refills, Maintenance, 01/04/20 7:48:00 EDT Start Date: 01/04/20 Status: Ordered Cannabis (Schedule I Substance) 0 Refills, Maintenance, 04/22/16 14:08:47 Start Date: 04/22/16 Status: Ordered diazepam 2 mg oral tablet 0.5 - 1 tablet, By Mouth, Every 4 hours, PRN, # 112 tablet, Refills 1, Tot. Refills 1, Maintenance,pain/spams, 11/30/19 9:14:00 EDT, Route to Pharmacy Electronically, [facility] #[id number], 163, cm, 11/30/19 7:45:00 EDT, Height, 64.2, kg, 03/18... Start Date: 11/30/19 Status: Ordered DULoxetine 40 mg oral delayed release capsule 1 capsule = 40 mg, By Mouth, Daily, To be taken with 60mg capsule to equal 100mg/day., # 28 capsule, 2 Refills, Maintenance, 11/21/19 8:24:00 EDT, [facility] #[id number], 163, cm, 10/16/19 7:44:00 EST, Height, 64.2, kg, 03/18/19 12:29:00 EDT, Dry... Start Date: 11/21/19 Status: Ordered duloxetine 60 mg oral enteric coated capsule 1 capsule, By Mouth, Daily, TO BE TAKEN WITH 40 MG CAPSULE FOR TOTAL DAILY DOSE OF 100MG, # 28 capsule, 2 Refills, Maintenance, 11/21/19 8:24:00 EDT, [facility] #[id number], 163, cm, 10/16/19 7:44:00 EST, Height, 64.2, kg, 03/18/19 12:29:00 EDT,... Start Date: 11/21/19 Status: Ordered lamotrigine 25 mg oral tablet See Instructions, 1 tablet by mouth daily at bedtime for 7 days, increase by 1 tab per day every 7 days to 2 tabs bid, # 70 tablet, Refills 0, Tot. Refills 0, Maintenance, 01/04/20 9:09:00 EDT, Instructions Replace Required Details, Route to Pharmacy... Start Date: 01/04/20 Status: Ordered Linzess 72 mcg oral capsule 1 capsule = 72 mcg, By Mouth, Daily, PRN Constipation Start Date: 05/25/19 Status: Ordered Misc Rx Refills 0, Maintenance, Calcim 500 mg and Magnesium 600 mg, 08/08/19 8:31:47 EST, Compound Start Date: 08/08/19 Status: Ordered [place] 325 mg-10 mg oral tablet 1 - 1.5 tablets, By Mouth, Every 4 hours, max of 8 tabs/day. partial fill upon request, # 168 tablet, 0 Refills, Maintenance, 05/25/19 12:48:00 EDT, 1 - 1.5 tablets By Mouth Every 4 hours,Instr:max of 8 tabs/day. partial fill upon request, 05/25/19 Start Date: 05/25/19 Status: Ordered topiramate 100 mg oral tablet 3 tablets, By Mouth, Daily at bedtime, # 84 tablet, 5 Refills, Maintenance, 08/08/19 12:18:42 EST, [facility] #[id number], 163, cm, 08/08/19 8:04:18 EST, Height, 64.2, kg, 03/18/19 12:29:11 EDT,Dry Weight Start Date: 08/08/19 Status: Ordered VESIcare 10 mg oral tablet 0.5 tab, Daily, TK 1 T PO QD Start Date: 08/13/16 Status: Ordered Vitamin D3 1000 intl units oral tablet 1 tablet = 1,000 International_Units, By Mouth, Daily, 0 Refills, Maintenance, 06/14/12 8:11:58 EDT Start Date: 06/14/12 Status: Ordered Problem List Condition Effective Dates Status Health Status Inform ant Occipital neuralgia, right ( lesser occipital nerve) >>left(Confirmed) Active Somnolence, daytime; at leas t in part medication treatment related(Confirmed) Active Medical cannabis use(Confirmed) Active Ex-cigarette smoker(Confirmed) Active Urinary, incontinence, stres s female(Confirmed) Active Limitation due to disability(Confirmed) 1, 2, 3, 4 Active Anxiety, generalized(Confirmed) Active Status post bilateral [...] 04/26/18 Active Status post right thumb surgery(Confirmed) 5 Active Hidradenitis(Confirmed) Active Status post carpal tunnel release(Confirmed) 08/13/15 Active Status post arthroscopic kne e surgery: 2006 & 2008 at [facility](Confirmed) Active Status post knee surgery, [facility] 05/02/01(Confirmed) 05/02/01 Active Lumbar facet joint pain(Confirmed) Active Lumbar radiculopathy, right(Confirmed) Active Radiculitis, lumbosacral rig ht S1 +/- L5 new 03/2019(Confirmed) 03/2019 Active Mechanical low back pain(Confirmed) Active Median nerve neuropathy, left(Confirmed) Active Myofascial pain, regional(Confirmed) Active Neuropathy, sacral, S1 bilaterally(Confirmed) Active Osteopenia(Confirmed) Active Buttock pain, right(Confirmed) Active Risk assessment: SOAPP-R(Confirmed) 6 Active Abdominal pain, chronic, rig ht lower quadrant; intermittent; lasts minutes(Confirmed) Active Risk assessment: Adverse Chi ldhood Experience(Confirmed) 7 Active Decreased range of motion of left shoulder(Confirmed) Active Shoulder pain, left(Confirmed) Active Lack of adequate sleep(Confirmed) Active Abdominal cramping(Confirmed) Active Heart murmur, systolic, paige ble when recumbent(Confirmed) Active Tinnitus(Confirmed) 05/07/17 Active Word finding problem(Confirmed) Active 1Updated Oswestry Disability Index: 35% moderate disability , [place] Back Pain Disability Scale: 35and Neck Disability Index: 8 on 06/29/19. 2Updated Oswestry Disability Index: 2% ( minimal disability ) on 06/09/18; updated [place] Back Pain Disability Scale score: 4 on 06/09/18; updated Neck Disability Index: 4% on 06/09/18 3Updated Oswestry Disability Index: 22% ( moderate disability ) on 05/26/17; updated [facility] Back Pain Disability Scale score: 18 on 05/26/17. 4Initial Oswestry Disability Index: 50% ( severe disability ) on 03/31/16; initial Neck Disability Index: 42% ( severe disability ) on 03/31/16; initial [facility] Back Pain Disability Scale score: 46 on 03/31/16. 5On 09/30/17 underwent Tenolysis, right thumb, for Right trigger thumb by Alex Putnam M.D. at [facility] 6SOAPP-R: 24 on 03/31/2016 7ACE score: 0 on 07/01/17 Vital Signs Most recent to oldest [Reference Range]: 1 Height 163 cm (01/04/20 7:51 AM) Social History Social History Type Response Smoking Status Former smoker; Tobac co user in household: No entered on: 07/07/17 Sex Female
--- OUTSIDE RECORDS SUMMARY | 2024-06-15 11:13 | XMS_ITS | Continuity of Care Document ---
Author Organization [facility] Address [address] [place] [address]- Care Team Providers Care Crm Administrator Name Role Phone Tammie FANG, Jo-Ann Primary Care Physician [phone] [id number] Date(s): [facility]/04[facility]21 - 03/28/[facility] [address] [place] [id number] Attending Physician: Jhonny Fierro MD Admitting Physician: Jhonny Fierro MD Allergies, Adverse Reactions, Alerts Substance Reaction [...] EDT, Supply Start Date: 11/21/20 Status: Ordered fentaNYL 25 mcg/hr transdermal film, extended release 1 film, Topically, Every 48 hours, as directed by provider, # 10 film, 0 Refills, Maintenance, 03/24/21 15:52:00 EDT, [facility] #[id number], Partial fill upon patient request if the prescription is for a schedule II opioid drug., 163, cm, ... Start Date: 03/24/21 Status: Ordered fentaNYL 50 mcg/hr transdermal film, extended release 1 film, Topically, Every 72 hours, 0 Refills, Maintenance, 03/17/21 13:51:00 EDT, Partial fill uponpatient request if the prescription is for a schedule II opioid drug. Start Date: 03/17/21 Status: Ordered FLUoxetine 20 mg oral capsule 60 mg, 3, capsule, By Mouth, Daily, # 84 capsule, Refills 2, Tot. Refills 2, Maintenance, 03/17/21 15:51:00 EDT, Route to Pharmacy Electronically, [facility] #[id number], 163, cm, 03/17/21 13:56:00 EDT, Height Start Date: 03/17/21 Status: Ordered magnesium oxide 500 mg oral tablet 1 tablet = 500 mg, By Mouth, Daily, 0 Refills, Maintenance, 05/21/20 7:47:00 EDT Start Date: 05/21/20 Status: Ordered topiramate 100 mg oral tablet 2 tablet = 200 mg, By Mouth, Daily at bedtime, # 56 tablet, 2 Refills, Maintenance, 03/17/21 15:50:00 EDT, [facility] #[id number], 163, cm, 03/17/21 13:56:00 EDT, Height Start [...] Active Fibromyalgia(Confirmed) Active Limitation due to disability(Confirmed) 5, 6, [...] [address] [facility](Confirmed) Active Status post knee surgery, [facility] 05/02/01(Confirmed) 05/02/01 Active Lumbar facet [...] by Alex Putnam M.D. at [facility] 10Retrial prescribed 12/17/20. On 01/15, at [...]
--- OUTSIDE RECORDS SUMMARY | 2024-06-15 11:13 | XMS_ITS | Continuity of Care Document ---
Author Organization [facility] Address [address] [place] [address]- Care Team Providers Care Medical Geneticist Name Role Phone Christiano FANG, Tito England Primary Care Physician Encounter [facility] Date(s): 11/04/22 - 12/04/22 [facility] [address] [place], [place] [address] Allergies, Adverse Reactions, Alerts Substance Reaction Severity Status codeine nausea Active iodinated radiocontrast dyes N/V Active Immunizations Given and Recorded Vaccine Date Status Refusal Reason influenza virus vaccine, inactivated 1 06/02/22 Gi laurie influenza virus vaccine, inactivated 06/05/18 Mars rded influenza virus vaccine, inactivated 06/17/17 Mars rded [id number] 12y+ bivalent booster vax 03/27/22 Recorded SARS-CoV-2 (COVID-19) mRNA BNT-162b2 vac 08/21/21 Recorded SARS-CoV-2 (COVID-19) Ad26 vaccine 12/02/20 Given Influenza Virus Vaccine (oldterm) 07/13/20 Recorde d zoster vaccine, inactivated 11/20/18 Recorded zoster vaccine, inactivated 09/17/18 Recorded tetanus/diphtheria/pertussis, acel(Tdap) 06/05/18 Recorded 1Result Comment: [facility]:[id number] Medications AutoASV EPAPmin 8 EPAPmax 12 PSmin [...] tablet, 2 Refills, Maintenance, 10/30/22 15:04:00 EST, [facility] #[id number], 157.5, cm, 08/07/22 10:53:00 EST, Height, 87, kg, 10/14/22 11:44:00 EST, Dry Weight Start Date: 10/30/22 Status: Ordered buPROPion 150 mg/12 hours (SR) oral tablet, extended release 1 tablet = 150 mg, By Mouth, 2 times a day, dose increase, # 60 tablet, 3 Refills, Maintenance, 11/10/22 10:38:00 EDT, ER Tablet, [facility] #[id number], Partial fill upon patient request if theprescription [...] 30 capsule, 5 Refills, 08/14/22 12:55:00 EST, [facility] #[id number], 157.5, cm, 08/07/22 10:53:00 EST, Height, 82.8, kg, 08/07/22 10:17:00 EST, Dry Weight Start Date: 08/14/22 Status: Ordered duloxetine 60 mg oral enteric coated capsule 1 capsule = 60 mg, By Mouth, Daily, take with 30mg capsule for total 90mg daily, # 30 capsule, 5 Refills, Maintenance, 03/09/22 11:52:00 EDT, [facility] #[id number], 157.5, cm, 02/09/22 19:12:00EDT, Height, 77, kg, 01/13/22 9:51:00 EDT, Dry Weight Start Date: 03/09/22 Status: Ordered ferrous sulfate 325 mg oral enteric coated tablet 1, tablet, By Mouth, Daily, # 30 tablet, Refills 1, Maintenance, 05/06/22 11:08:00 EDT, Route to Pharmacy Electronically, [facility] #[id number], 157.5, cm, 05/01/22 9:45:00 EDT, Height, 83.4, kg, 05/01/22 9:11:00 EDT, Dry Weight Start Date: 05/06/22 Status: Ordered hydrOXYzine hydrochloride 25 mg oral tablet 1 TO 1 AND 1/2 TABLETS, By Mouth, 3 times a day, PRN NEEDED FOR ANXIETY, # 60 tablet, 2 Refills,Maintenance, 10/05/22 20:26:00 EST, [facility] #[id number], 157.5, cm, 08/07/22 10:53:00 EST, Height, 82.8, kg, 08/07/22 10:17:00 EST, Dry Weight Start Date: 10/05/22 Status: Ordered ipratropium nasal 21 mcg/inh spray See Instructions, PRN Nasal Congestion, 1 spray each nostril BID, # 1 each, 4 Refills, Maintenance,06/04/22 11:24:00 EDT, [facility] #[id number], Partial fill upon patient request if the [...] Refills, Maintenance, 09/02/22 23:37:00 EST, CR Tablet, [facility] #[id number], Partial fill upon patient request if the prescription is for a schedule II opioid drug., 157.5, cm, 08/07/22 10:53:0... Start Date: 09/02/22 Status: Ordered oxyCODONE 5 mg oral tablet 5 mg, 1, tablet, By Mouth, Every 4 hours, Refills 0, Tot. Refills 0, Maintenance, 10/14/22 13:35:00EST, Partial fill upon patient request if the prescription is for a schedule II opioid drug. Start Date: 10/14/22 Status: Ordered pramipexole 0.125 mg oral tablet 3 tablet, By Mouth, Daily at bedtime, # 90 tablet, 3 Refills, Maintenance, 10/12/22 18:54:00 EST, [facility] #[id number], 157.5, cm, 08/07/22 10:53:00 EST, Height, 82.8, [...] arthroscopic knee surgery: 2006 & 2008 at [facility] Confirmed Active Status post knee surgery, [facility] 05/02/01 Confirmed 05/02/01 Active Hypertension Confirmed Active [...] Adverse Childhood Experience 11 Confirmed Active Severe episode of recurrent major [...] trigger thumb by Alex Putnam M.D. at [facility] 7Retrial prescribed 12/17/20. On 01/15, at [...] Name: Sandhya Tsai MD, Cj Reyna Position: [facility] Anesthesiology MD Member Role: Lifetime Consulting Physician Address: Address: [address] [place] [address] [place] [address]- Name: Tito Alvarado MD Position: [facility] Primary Care Physician Member Role: PCP Address: Address: [address] [place] [address] Adult & [place] [address]- Care Team Related Persons Name: BRAYAN VELAZCO Address: [address] [place] [address] Name: ABDON VELAZCO Name: NOEL LIZAMA Address: [address] [place] [address] Name: FADY NIELSON Address: home [address] [place] [address]
--- OUTSIDE RECORDS SUMMARY | 2024-06-15 11:13 | XMS_ITS | Continuity of Care Document ---
Author Organization [facility] Address [address] [place] [address] Drbrandi bhardwaj, [address] [place] [address]- Care Team Providers Care Alemite Operator Name Role Phone Tito Alvarado MD Primary Care Physician Encounter [facility] [place] Date(s): 12/22/21 - 12/29/[address], [address] [place], [place] [address] Attending Physician: Isra Santiago MD Referring Physician: [...] 12/12/21 11:12:00 EDT, Route to Pharmacy Electronically, [facility] #[id number], Partial fill upon patient request if the [...] Refills, Maintenance, 10/02/21 15:44:00 EST, EC Capsule, [facility] #[id number], Partial fill upon patient request if the prescription... Start Date: 10/02/21 Status: Ordered duloxetine 60 mg oral enteric coated capsule 1 capsule = 60 mg, By Mouth, Daily, fill when patient next requests. To be taken with 30mg cap for total 90mg daily dose, # 30 capsule, 3 Refills, Maintenance, 10/02/21 15:45:00 EST, [facility] #[id number], 163, cm, 08/27/21 9:26:00 EST, Height,... Start Date: 10/02/21 Status: Ordered ferrous sulfate 325 mg oral enteric coated tablet 325 mg, 1, tablet, By Mouth, Daily, # 30 tablet, Refills 2, Tot. Refills 2, Maintenance, 12/05/21 11:39:00 EDT, Route to Pharmacy Electronically, [facility] #[id number], Partial fill upon patient request if the prescription is for a schedule II o... Start Date: 12/05/21 Status: Ordered hydrOXYzine hydrochloride 25 mg oral tablet 1-1.5 tablet, By Mouth, 3 times a day, PRN for anxiety, dose increase, # 60 tablet, 1 Refills, Maintenance, 10/08/21 14:51:00 EST, Tablet, [facility] #[id number], Partial fill upon patient request if the [...] 11/25/21 18:16:00 EDT, Route to Pharmacy Electronically, [facility] #[id number], Partial fill upon patient request if the prescriptio... Start Date: 11/25/21 Status: Ordered Paxlovid 150 mg-100 mg oral tablet See Instructions, nirmatrelvir 2 tabs PO and ritonavir 1 tab PO BID for 5 days, # 30 tablet, 0 Refills, Maintenance, 12/15/21 9:13:00 EDT, [facility] #[id number], Partial fill upon patient request if the [...] tablet, 1 Refills,Maintenance, 12/05/21 11:52:00 EDT, Tablet, [facility] #[id number], Partial fill upon patient request if the prescription is for a schedule II opi... Start Date: 12/05/21 Status: Ordered tiZANidine 4 mg oral tablet 2 mg, 0.5, tablet, By Mouth, 3 times a day, PRN, # 45 tablet, Refills 0, Tot. Refills 0, Maintenance, Spasm, 11/25/21 18:16:00 EDT, Route to Pharmacy Electronically, [facility] #[id number], Partial fill upon patient request if the [...] kne e surgery: 2006 & 2008 at [facility](Confirmed) Active Status post knee surgery, [facility] 05/02/01(Confirmed) 05/02/01 Active Lumbar facet joint pain(Confirmed) [...] Index: 48% ( severe disability ); updated [place] Back Pain Disability Scale score: 61; both on 07/02/21 7Updated Oswestry Disability Index: 35% moderate disability , [place] Back Pain Disability Scale: 35and Neck Disability Index: 8 on 06/29/19. 8Updated Oswestry Disability Index: 2% ( minimal disability ) on 06/09/18; updated [place] Back Pain Disability Scale score: 4 [...] trigger thumb by Alex Putnam M.D. at [facility] 12Retrial prescribed 12/17/20. On 01/15, at [...] on 03/31/2016 15ACE score: 0 on 07/01/17 Vital Signs Most recent to oldest [Reference Range]: 1 Height 157.5 cm (12/22/21 11:39 AM) Weight 73.6 kg (12/22/21 11:39 AM) Body Mass Index [18.5-24.99] 29.67 *H* (12/22/21 11:39 AM) Social History Social History Type Response Smoking Status Former smoker; Stopp ed at age: 50; entered on: 03/11/17 Sex Female
--- OUTSIDE RECORDS SUMMARY | 2024-06-15 11:13 | XMS_ITS | Continuity of Care Document ---
Author Organization [facility] Address [address] [place] [address]- Care Team Providers Care Administrator Of Home Health Name Role Phone Christiano FANG, Tito England Primary Care Physician [place] [facility] [place] 07/[place]22 [facility] [address] [place], [place] [address] Allergies, Adverse Reactions, Alerts Substance Reaction Severity Status codeine nausea Active iodinated radiocontrast dyes N/V Active Immunizations Given and Recorded Vaccine Date Status Refusal Reason influenza virus vaccine, inactivated 1 06/02/22 Gi laurie influenza virus vaccine, inactivated 06/05/18 Mars rded influenza virus vaccine, inactivated 06/17/17 Mars rded [id number] 12y+ bivalent booster vax 03/27/22 Recorded SARS-CoV-2 (COVID-19) mRNA BNT-162b2 vac 08/21/21 Recorded SARS-CoV-2 (COVID-19) Ad26 vaccine 12/02/20 Given Influenza Virus Vaccine (oldterm) 07/13/20 Recorde d zoster vaccine, inactivated 11/20/18 Recorded zoster vaccine, inactivated 09/17/18 Recorded tetanus/diphtheria/pertussis, acel(Tdap) 06/05/18 Recorded 1Result Comment: [facility]:[id number] Medications AutoASV EPAPmin 8 EPAPmax 12 PSmin [...] Refills, Maintenance, 06/23/22 14:08:00 EDT, ER Tablet, [facility] #[id number], Partial fillupon patient request if the prescription [...] capsule, 5 Refills, Maintenance, 03/09/22 11:52:00 EDT, [facility] #[id number], 157.5, cm, 02/09/22 19:12:00EDT, Height, 77, kg, 01/13/22 9:51:00 EDT, Dry Weight Start Date: 03/09/22 Status: Ordered ferrous sulfate 325 mg oral enteric coated tablet 1, tablet, By Mouth, Daily, # 30 tablet, Refills 1, Maintenance, 05/06/22 11:08:00 EDT, Route to Pharmacy Electronically, [facility] #[id number], 157.5, cm, 05/01/22 9:45:00 EDT, Height, 83.4, [...] 60 tablet, 2 Refills,Maintenance, 05/06/22 11:08:00 EDT, [facility] #[id number], 157.5, cm, 05/01/22 9:45:00 EDT, Height, 83.4, kg, 05/01/22 9:11:00 EDT, Dry Weight Start Date: 05/06/22 Status: Ordered ipratropium nasal 21 mcg/inh spray See Instructions, PRN Nasal Congestion, 1 spray each nostril BID, # 1 each, 4 Refills, Maintenance,06/04/22 11:24:00 EDT, [facility] #[id number], Partial fill upon patient request if the [...] 90 tablet, 3 Refills, 06/23/22 14:01:00 EDT, [facility] #[id number], 157.5, cm, 06/23/22 13:25:00 EDT, Height, 81.3, [...] arthroscopic knee surgery: 2006 & 2008 at [facility] Confirmed Active Status post knee surgery, [facility] 05/02/01 Confirmed 05/02/01 Active Lumbar [...] trigger thumb by Alex Putnam M.D. at [facility] 7Retrial prescribed 12/17/20. On 01/15, at [...] Name: Sandhya Tsai MD, Cj Reyna Position: [facility] Anesthesiology MD Member Role: Lifetime Consulting Physician Address: Address: [address] [place] [address] [place] [address]- Name: Tito Alvarado MD Position: [facility] Primary Care Physician Member Role: PCP Address: Address: [address] [place] [address] Adult [place] [address]- Care Team Related Persons Name: BRAYAN VELAZCO Address: [address] [place] [address] Name: NOEL LIZAMA Address: [address] [place] [address] Name: FADY NIELSON Address: [address] [place] [address]
--- OUTSIDE RECORDS SUMMARY | 2024-06-15 11:13 | XMS_ITS | Continuity of Care Document ---
Author Organization [facility] Address [address] [place] [address]- Care Team Providers Care Electrician Marine Name Role Phone Christiano FANG, Tito England Primary Care Physician [phone] Encounter [facility] [place] Date(s): 06/30/21 - 07/30/21 [facility] [address] [place], [place] [address] Allergies, Adverse Reactions, Alerts Substance [...] capsule, 3 Refills, Maintenance, 07/14/21 9:37:00 EST, [facility] #[id number], 163, cm, 07/02/21 14:28:00 EST, Height Start [...] tablet, 1 Refills, Maintenance, 07/03/21 10:52:00 EST, [facility] #[id number], 163, cm, 07/02/21 14:28:00 EST, Height Start [...] kne e surgery: 2006 & 2008 at [facility](Confirmed) Active Status post knee surgery, [facility] 05/02/01(Confirmed) 05/02/01 Active Lumbar facet joint [...] trigger thumb by Alex Putnam M.D. at [facility] 12Retrial prescribed 12/17/20. On 01/15, at [...]
--- OUTSIDE RECORDS SUMMARY | 2024-06-15 11:13 | XMS_ITS | Continuity of Care Document ---
Author Organization [facility] Address [address] [place] [address]- Care Team Providers Care Call Center Professional Name Role Phone Christiano FANG, Tito England Primary Care Physician Encounter [facility] [place] Date(s): 09/12/21 - 10/12/21 [facility] [address] [place] [address]- Allergies, Adverse Reactions, Alerts Substance Reaction Severity [...] 0, Maintenance,Updated On: 11/21/2020 Pharmacy I: Andrea DeniseReece DX: mechanical back pain M54.5, occipitalneuralgia M54.81, 11/21/20 8:57:00 EDT, Supply Start Date: 11/21/20 Status: Ordered duloxetine 30 mg oral enteric coated capsule 1 capsule = 30 mg, By Mouth, Daily, to be taken with 60mg cap for total daily dose 90mg daily, # 30capsule, 3 Refills, Maintenance, 10/02/21 15:44:00 EST, EC Capsule, [facility] #[id number], Partial fill upon patient request if the prescription... Start Date: 10/02/21 Status: Ordered duloxetine 60 mg oral enteric coated capsule 1 capsule = 60 mg, By Mouth, Daily, fill when patient next requests. To be taken with 30mg cap for total 90mg daily dose, # 30 capsule, 3 Refills, Maintenance, 10/02/21 15:45:00 EST, [facility] #[id number], 163, cm, 08/27/21 9:26:00 EST, Height,... Start Date: 10/02/21 Status: Ordered hydrOXYzine hydrochloride 25 mg oral tablet 1-1.5 tablet, By Mouth, 3 times a day, PRN for anxiety, dose increase, # 60 tablet, 1 Refills, Maintenance, 10/08/21 14:51:00 EST, Tablet, [facility] #[id number], Partial fill upon patient request if the [...] Gm, 1 Refills, Maintenance, 09/17/21 13:09:00 EST, [facility] #[id number], Partial fill upon patient request if the prescription is for a schedule II opioid drug., 163, cm, 08/27/21 9:26:00 EST, Height, 63... Start Date: 09/17/21 Status: Ordered NuLYTELY with Flavor Packs oral powder for reconstitution See Instructions, Drink 240mL every 15-20 minutes until first half is gone. Repeat 6 hours prior toprocedure., # 4,000 mL, 0 Refills, Maintenance, 09/17/21 13:09:00 EST, [facility] #[id number],Partial fill upon patient request if the prescript... [...] Gm, 0 Refills, Maintenance, 09/23/21 13:03:00 EST, [facility] #[id number], Partial fill upon patient request if the [...] 08/08/21 16:04:00 EST, Route to Pharmacy Electronically, [facility] #[id number], Partial fi... Start Date: 08/08/21 Stop Date: 11/06/21 Status: Ordered topiramate 100 mg oral tablet 3 tablet = 300 mg, By Mouth, Daily at bedtime, # 84 tablet, 1 Refills, Maintenance, 08/26/21 14:05:00 EST, [facility] #[id number], 163, cm, 08/06/21 14:34:00 EST, Height, 63, [...] Refills, Soft Stop, 08/19/21 12:22:00 EST, Tablet, [facility] #[id number], Partial fill upon patient request if the [...] e surgery: [address] [facility](Confirmed) Active Status post knee surgery, [facility] 05/02/01(Confirmed) 05/02/01 Active Lumbar facet joint [...] moderate disability ) on 05/26/17; updated [facility] Back Pain Disability Scale score: 18 on 05/26/17. 10Initial Oswestry Disability Index: 50% ( severe disability ) on 03/31/16; initial Neck Disability Index: 42% ( severe disability ) on 03/31/16; initial [facility] Back Pain Disability Scale score: 46 on 03/31/16. 11On 09/30/17 underwent Tenolysis, right thumb, for Right trigger thumb by Alex Putnam M.D. at [facility] 12Retrial prescribed 12/17/20. On 01/15, at 10mg [...]
--- OUTSIDE RECORDS SUMMARY | 2024-06-15 11:13 | XMS_ITS | Continuity of Care Document ---
Author Organization [facility] Address [address] [place] [address]- Care Team Providers Care Advertising Sales Consultant Name Role Phone Christiano FANG, Tito England Primary Care Physician [place] [facility] [place] 06/24/22 - 07/24/22 [facility] [address] [place], [place] [address] Allergies, Adverse Reactions, Alerts Substance Reaction Severity Status codeine nausea Active iodinated radiocontrast dyes N/V Active Immunizations Given and Recorded Vaccine Date Status Refusal Reason influenza virus vaccine, inactivated 1 06/02/22 Gi laurie influenza virus vaccine, inactivated 06/05/18 Mars rded influenza virus vaccine, inactivated 06/17/17 Mars rded [id number] 12y+ bivalent booster vax 03/27/22 Recorded SARS-CoV-2 (COVID-19) mRNA BNT-162b2 vac 08/21/21 Recorded SARS-CoV-2 (COVID-19) Ad26 vaccine 12/02/20 Given Influenza Virus Vaccine (oldterm) 07/13/20 Recorde d zoster vaccine, inactivated 11/20/18 Recorded zoster vaccine, inactivated 09/17/18 Recorded tetanus/diphtheria/pertussis, acel(Tdap) 06/05/18 Recorded 1Result Comment: [facility]:[id number] Medications AutoASV EPAPmin 8 EPAPmax 12 PSmin [...] Refills, Maintenance, 06/23/22 14:08:00 EDT, ER Tablet, [facility] #[id number], Partial fillupon patient request if the prescription [...] capsule, 5 Refills, Maintenance, 03/09/22 11:52:00 EDT, [facility] #[id number], 157.5, cm, 02/09/22 19:12:00EDT, Height, 77, kg, 01/13/22 9:51:00 EDT, Dry Weight Start Date: 03/09/22 Status: Ordered ferrous sulfate 325 mg oral enteric coated tablet 1, tablet, By Mouth, Daily, # 30 tablet, Refills 1, Maintenance, 05/06/22 11:08:00 EDT, Route to Pharmacy Electronically, [facility] #[id number], 157.5, cm, 05/01/22 9:45:00 EDT, Height, 83.4, [...] 60 tablet, 2 Refills,Maintenance, 05/06/22 11:08:00 EDT, [facility] #[id number], 157.5, cm, 05/01/22 9:45:00 EDT, Height, 83.4, kg, 05/01/22 9:11:00 EDT, Dry Weight Start Date: 05/06/22 Status: Ordered ipratropium nasal 21 mcg/inh spray See Instructions, PRN Nasal Congestion, 1 spray each nostril BID, # 1 each, 4 Refills, Maintenance,06/04/22 11:24:00 EDT, [facility] #[id number], Partial fill upon patient request if the [...] 90 tablet, 3 Refills, 06/23/22 14:01:00 EDT, [facility] #[id number], 157.5, cm, 06/23/22 13:25:00 EDT, Height, 81.3, [...] arthroscopic knee surgery: [address] [facility] Confirmed Active Status post knee surgery, [facility] 05/02/01 Confirmed 05/02/01 Active Lumbar facet joint [...] trigger thumb by Alex Putnam M.D. at [facility] 7Retrial prescribed 12/17/20. On 01/15, [...] Name: Sandhya Tsai MD, Cj Reyna Position: [facility] Anesthesiology MD Member Role: Lifetime Consulting Physician Address: Address: [address] [place] [address] [place] [address]- Name: Tito Alvarado MD Position: [facility] Primary Care Physician Member Role: PCP Address: Address: [address] [place] [address] Adult & [place] [address]- Care Team Related Persons Name: BRAYAN VELAZCO Address: [address] [place] [address] Name: NOEL LIZAMA Address: home [address] [place] [id number] Name: FADY NIELSON Address: [address] [place] [address]
--- OUTSIDE RECORDS SUMMARY | 2024-06-15 11:13 | XMS_ITS | Continuity of Care Document ---
Author Organization [facility] Address [address] [place] [address]- Care Team Providers Care Cyber Defense Analyst Name Role Phone Christiano FANG, Tito England Primary Care Physician [phone] [place] [facility] [place](s): 10/29/21 - 11/28/21 [facility] [address] [place], [place] [address] Allergies, Adverse Reactions, Alerts Substance Reaction [...] Refills, Maintenance, 10/02/21 15:44:00 EST, EC Capsule, [facility] #[id number], Partial fill upon patient request if the prescription... Start Date: 10/02/21 Status: Ordered duloxetine 60 mg oral enteric coated capsule 1 capsule = 60 mg, By Mouth, Daily, fill when patient next requests. To be taken with 30mg cap for total 90mg daily dose, # 30 capsule, 3 Refills, Maintenance, 10/02/21 15:45:00 EST, [facility] #[id number], 163, cm, 08/27/21 9:26:00 EST, Height,... Start Date: 10/02/21 Status: Ordered hydrOXYzine hydrochloride 25 mg oral tablet 1-1.5 tablet, By Mouth, 3 times a day, PRN for anxiety, dose increase, # 60 tablet, 1 Refills, Maintenance, 10/08/21 14:51:00 EST, Tablet, [facility] #[id number], Partial fill upon patient request if the [...] 11/25/21 18:16:00 EDT, Route to Pharmacy Electronically, [facility] #[id number], Partial fill upon patient request if the [...] 11/25/21 18:16:00 EDT, Route to Pharmacy Electronically, [facility] #[id number], Partial fill upon patient request if the [...] kne e surgery: 2006 & 2008 at [facility](Confirmed) Active Status post knee surgery, [facility] 05/02/01(Confirmed) 05/02/01 Active Lumbar [...] ( severe disability ) on 03/31/16; initial [facility] Back Pain Disability Scale score: 46 on 03/31/16. 11On 09/30/17 underwent Tenolysis, right thumb, for Right trigger thumb by Alex Putnam M.D. at [facility] 12Retrial prescribed 12/17/20. On 01/15, at [...]
--- OUTSIDE RECORDS SUMMARY | 2024-06-15 11:13 | XMS_ITS | Continuity of Care Document ---
Author Organization [facility] Address [address] [place] [address]- Care Team Providers Care Stove Installer Name Role Phone Tammie FANG, Jo-Ann Primary Care Physician Encounter [facility] Date(s): 02/05/21 - 03/07/21 [facility] [address] [place] [id number] Allergies, Adverse [...] tablet, 0 Refills, Maintenance, 01/29/21 9:17:00 EDT, [facility] #[id number], Please also refill fluoxetine. Thank you!, 1 [...] film, 0 Refills, Maintenance, 02/04/21 11:19:00 EDT, [facility] #[id number], Partial fill upon patient request, 163, cm, 02/04/21 8:59:00 EDT, Height, 64.2, kg, 03/18/19 12:29:00 EDT, Dry Weight Start Date: 02/04/21 Status: Ordered FLUoxetine 20 mg oral capsule 60 mg, 3, capsule, By Mouth, Daily, # 84 capsule, Refills 2, Tot. Refills 2, Maintenance, 12/23/20 17:07:00 EDT, Route to Pharmacy Electronically, [facility] #[id number], 163, cm, 12/23/20 13:59:00 EDT, Height, 64.2, kg, 03/18/19 12:29:00 EDT, . Start Date: 12/23/20 Status: Ordered HYDROmorphone 4 mg oral tablet 1 tablet = 4 mg, By Mouth, 5 times a day, PRN breakthrough pain. STOP hydrocodone/APAP, # 70 tablet, 0 Refills, Maintenance, 01/23/21 12:31:00 EDT, [facility] #[id number], Partial fill upon patient request, 163, cm, [...] tablet, 2 Refills, Maintenance, 11/21/20 8:46:00 EDT, [facility] #[id number], 163, cm, 11/21/20 7:51:00 EDT, Height, 64.2, [...] - [place](Confirmed) Active Status post knee surgery, [facility] 05/02/01(Confirmed) 05/02/01 Active Lumbar facet joint [...] Oswestry Disability Index: 35% moderate disability , [place] Back Pain Disability Scale: 35and Neck Disability Index: 8 on 06/29/19. 6Updated Oswestry Disability Index: 2% ( minimal disability ) on 06/09/18; updated [place] Back Pain Disability Scale score: 4 on 06/09/18; updated Neck Disability Index: 4% on 06/09/18 7Updated Oswestry Disability Index: 22% ( moderate disability ) on 05/26/17; updated [facility] Back Pain Disability Scale score: 18 on 05/26/17. 8Initial Oswestry Disability Index: 50% ( severe disability ) on 03/31/16; initial Neck Disability Index: 42% ( severe disability ) on 03/31/16; initial [place] Back Pain Disability Scale score: 46 on 03/31/16. 9On 09/30/17 underwent Tenolysis, right thumb, for Right trigger thumb by Alex Putnam M.D. at [facility] 10Retrial prescribed 12/17/20. On 01/15, at [...]
--- OUTSIDE RECORDS SUMMARY | 2024-06-15 11:13 | XMS_ITS | Continuity of Care Document ---
Author Organization [facility] Address [address] [place] [address]- Care Team Providers Care Photographer'S Assistant Name Role Phone Jo-Ann Cho MD Primary Care Physician Encounter [facility] [place] Date(s): 08/08/19 - 08/15/19 [facility] [address] [place] [address]- [facility] Attending Physician: Jo-Ann Cho MD Allergies, Adverse Reactions, Alerts Substance Reaction Severity Status codeine nausea Active pentosan polysulfate sodium nausea Active iodinated radiocontrast dyes N/V Active Immunizations Given and Recorded Vaccine Date Status Refusal Reason zoster vaccine, inactivated 11/20/18 Recorded zoster vaccine, inactivated 09/17/18 Recorded influenza virus vaccine, inactivated 06/05/18 Mars rded tetanus/diphtheria/pertussis, acel(Tdap) 06/05/18 Recorded Medications Cannabis (Schedule I Substance) 0 Refills, Maintenance, 04/22/16 14:08:47 Start Date: 04/22/16 Status: Ordered diazepam 2 mg oral tablet 0.5 - 1 tablet, By Mouth, Every 4 hours, PRN, # 112 tablet, Refills 1, Tot. Refills 1, Maintenance,pain/spams, 05/25/19 12:48:00 EDT, Route to Pharmacy Electronically, [id number], [facility] #[id number] Start Date: 05/25/19 Status: Ordered DULoxetine 40 mg oral delayed release capsule See Instructions, TAKE 1 CAPSULE BY MOUTH ONCE DAILY. TO BE TAKEN WITH 60MG CAPSULE TO EQUAL 100MG PER DAY, # 28 capsule, 2 Refills, Maintenance, 06/13/19 8:11:00 EDT Start Date: 06/13/19 Status: Ordered duloxetine 60 mg oral enteric coated capsule See Instructions, TAKE 1 CAPSULE BY MOUTH ONCE DAILY. TO BE TAKEN WITH 40MG CAPSULE, For TDD of 100mg., # 28 capsule, 2 Refills, Maintenance, 06/13/19 8:09:32 EDT Start Date: 06/13/19 Status: Ordered Linzess 72 mcg oral capsule 1 capsule = 72 mcg, By Mouth, Daily, PRN Constipation Start Date: 05/25/19 Status: Ordered Misc Rx Refills 0, Maintenance, Calcim 500 mg and Magnesium 600 mg, 08/08/19 8:31:47 EST, Compound Start Date: 08/08/19 Status: Ordered Merna 325 mg-10 mg oral tablet 1 - [...] tablet, 5 Refills, Maintenance, 08/08/19 12:18:42 EST, [facility] #[id number], 163, cm, 08/08/19 8:04:18 EST, Height, 64.2, kg, 03/18/19 12:29:11 EDT,Dry Weight Start Date: 08/08/19 Status: Ordered VESIcare 10 mg oral tablet TK 1 T PO QD Start Date: 08/13/16 Status: Ordered Vitamin D3 1000 intl units oral tablet 1 tablet = 1,000 International_Units, By Mouth, Daily, 0 Refills, Maintenance, 06/14/12 8:11:58 EDT Start Date: 06/14/12 Status: Ordered Problem List Condition Effective Dates Status Health Status Inform ant Occipital neuralgia, right ( lesser occipital nerve) >>left(Confirmed) Active Daytime somnolence(Confirmed) Active Attention and concentration deficit, treatment associated(Confirmed) 1 Active Medical cannabis use(Confirmed) Active Ex-cigarette smoker(Confirmed) Active Urinary, incontinence, stres s female(Confirmed) Active Limitation due to disability(Confirmed) 2, 3, 4, 5 Active Drug or alcohol risk assessment(Confirmed) 6 Active Anxiety, generalized(Confirmed) Active Status post [...] right thumb surgery(Confirmed) 7 Active Hidradenitis(Confirmed) Active Status post carpal tunnel release(Confirmed) 08/13/15 Active Status post arthroscopic kne e surgery: 2006 & 2008 at [facility](Confirmed) Active Status post knee surgery, [facility] 05/02/01(Confirmed) 05/02/01 Active Lumbar facet joint pain(Confirmed) Active Lumbar radiculopathy, right(Confirmed) Active Radiculitis, lumbosacral rig ht S1 +/- L5 new 03/2019(Confirmed) 03/2019 Active Mechanical low back pain(Confirmed) Active Median nerve neuropathy, left(Confirmed) Active Myofascial pain, regional(Confirmed) Active Neuropathy, sacral, S1 bilaterally(Confirmed) Active Osteopenia(Confirmed) Active Buttock pain, right(Confirmed) Active Risk assessment: Adverse Chi ldhood Experience(Confirmed) 8 Active Decreased range of motion of left shoulder(Confirmed) Active Shoulder pain, left(Confirmed) Active Lack of adequate sleep(Confirmed) Active Abdominal cramping(Confirmed) Active Heart murmur, systolic, paige ble when recumbent(Confirmed) Active Tinnitus(Confirmed) 05/07/17 Active 1Adult ADHD self-report scale (ASRS v1.1) symptom checklist: Part A: 4; Part B: 5. on 04/11/18 2Updated Oswestry Disability Index: 35% moderate disability , [place] Back Pain Disability Scale: 35and Neck Disability Index: 8 on 06/29/19. 3Updated Oswestry Disability Index: 2% ( minimal disability ) on 06/09/18; updated [place] Back Pain Disability Scale score: 4 on 06/09/18; updated Neck Disability Index: 4% on 06/09/18 4Updated [place]estry Disability Index: 22% ( moderate disability ) on 05/26/17; updated [place] Back Pain Disability Scale score: 18 on 05/26/17. 5Initial Oswestry Disability Index: 50% ( severe disability ) on 03/31/16; initial Neck Disability Index: 42% ( severe disability ) on 03/31/16; initial [place] Back Pain Disability Scale score: 46 on 03/31/16. 6SOAPP-R: 24 on 03/31/2016 7On 09/30/17 underwent Tenolysis, right thumb, for Right trigger thumb by Alex Putnam M.D. at [facility] 8ACE score: 0 on 07/01/17 Vital Signs Most recent to oldest [Reference Range]: 1 Height 163 cm (08/08/19 8:04 AM) Weight 61.7 kg (08/08/19 8:04 AM) Oxygen Saturation [94-100 %] 98 % (08/08/19 8:04 AM) Pulse Rate [55-90 bpm] 72 bpm (08/08/19 8:04 AM) Body Mass Index [18.5-24.99] 23.22 (08/08/19 8:04 AM) Blood Pressure [90-138/55-84 mm Hg] 118/ 58mm Hg (08/08/19 8:04 AM) Social History Social History Type Response Smoking Status Former smoker; Tobac co user in household: No entered on: 07/07/17 Sex Female
--- OUTSIDE RECORDS SUMMARY | 2024-06-15 11:13 | XMS_ITS | Continuity of Care Document ---
Author Organization [facility] Address [address] [place] [address]- Care Team Providers Care Sales Program Coordinator Name Role Phone Tammie FANG, Jo-Ann Primary Care [id number] - [facility]29[facility] [address] [place] [address] Attending Physician: Nick Lane MD Admitting Physician: Nick Lane MD Referring Physician: Cj Arthur Jr, MD Allergies, Adverse Reactions, Alerts Substance Reaction [...] film, 0 Refills, Maintenance, 03/24/21 15:52:00 EDT, [facility] #[id number], Partial fill upon patient request if the [...] 03/17/21 15:51:00 EDT, Route to Pharmacy Electronically, [facility] #[id number], 163, cm, 03/17/21 13:56:00 EDT, Height Start Date: 03/17/21 Status: Ordered magnesium oxide 500 mg oral tablet 1 tablet = 500 mg, By Mouth, Daily, 0 Refills, Maintenance, 05/21/20 7:47:00 EDT Start Date: 05/21/20 Status: Ordered topiramate 100 mg oral tablet 2 tablet = 200 mg, By Mouth, Daily at bedtime, # 56 tablet, 2 Refills, Maintenance, 03/17/21 15:50:00 EDT, [facility] #[id number], 163, cm, 03/17/21 13:56:00 EDT, Height Start [...] e surgery: 2006 & 2008 at [facility](Confirmed) Active Status post knee surgery, [facility] 05/02/01(Confirmed) 05/02/01 Active Lumbar facet joint pain(Confirmed) [...] by Alex Putnam M.D. at [facility] 10Retrial prescribed 12/17/20. On 01/15, at [...]
--- OUTSIDE RECORDS SUMMARY | 2024-06-15 11:14 | XMS_ITS | Continuity of Care Document ---
Author Organization [facility] Address [address] [place] [address]- Care Team Providers Care Elevator Troubleshooter Name Role Phone Christiano FANG, Tito [place] Primary Care Physician En[place] [facility] [place] Date(s): 06/14/22 - 07/14/22 [facility] [address] [place], [place] [address] Allergies, Adverse Reactions, Alerts Substance Reaction Severity Status codeine nausea Active iodinated radiocontrast dyes N/V Active Immunizations Given and Recorded Vaccine Date Status Refusal Reason influenza virus vaccine, inactivated 1 06/02/22 Gi laurie influenza virus vaccine, inactivated 06/05/18 Mars rded influenza virus vaccine, inactivated 06/17/17 Mars rded [id number] 12y+ bivalent booster vax 03/27/22 Recorded SARS-CoV-2 (COVID-19) mRNA BNT-162b2 vac 08/21/21 Recorded SARS-CoV-2 (COVID-19) Ad26 vaccine 12/02/20 Given Influenza Virus Vaccine (oldterm) 07/13/20 Recorde d zoster vaccine, inactivated 11/20/18 Recorded zoster vaccine, inactivated 09/17/18 Recorded tetanus/diphtheria/pertussis, acel(Tdap) 06/05/18 Recorded 1Result Comment: [facility]:[id number] Medications AutoASV EPAPmin 8 EPAPmax 12 PSmin [...] Refills, Maintenance, 06/23/22 14:08:00 EDT, ER Tablet, [facility] #[id number], Partial fillupon patient request if the prescription [...] capsule, 5 Refills, Maintenance, 03/09/22 11:52:00 EDT, [facility] #[id number], 157.5, cm, 02/09/22 19:12:00EDT, Height, 77, kg, 01/13/22 9:51:00 EDT, Dry Weight Start Date: 03/09/22 Status: Ordered ferrous sulfate 325 mg oral enteric coated tablet 1, tablet, By Mouth, Daily, # 30 tablet, Refills 1, Maintenance, 05/06/22 11:08:00 EDT, Route to Pharmacy Electronically, [facility] #[id number], 157.5, cm, 05/01/22 9:45:00 EDT, Height, 83.4, [...] 60 tablet, 2 Refills,Maintenance, 05/06/22 11:08:00 EDT, [facility] #[id number], 157.5, cm, 05/01/22 9:45:00 EDT, Height, 83.4, kg, 05/01/22 9:11:00 EDT, Dry Weight Start Date: 05/06/22 Status: Ordered ipratropium nasal 21 mcg/inh spray See Instructions, PRN Nasal Congestion, 1 spray each nostril BID, # 1 each, 4 Refills, Maintenance,06/04/22 11:24:00 EDT, [facility] #[id number], Partial fill upon patient request if the [...] 90 tablet, 3 Refills, 06/23/22 14:01:00 EDT, [facility] #[id number], 157.5, cm, 06/23/22 13:25:00 EDT, Height, 81.3, [...] arthroscopic knee surgery: 2006 & 2008 at [facility] Confirmed Active Status post knee surgery, [facility] 05/02/01 Confirmed 05/02/01 Active [...] trigger thumb by Alex Putnam M.D. at [facility] 7Retrial prescribed 12/17/20. On 01/15, at 10mg [...] Name: Sandhya Tsai MD, Cj Reyna Position: [facility] Anesthesiology MD Member Role: Lifetime Consulting Physician Address: Address: [address] [place] [address] Anesthesia [place] [address]- Name: Tito Alvarado MD Position: [facility] Primary Care Physician Member Role: PCP Address: Address: [address] [place] [address] Adult [place] [address]- Care Team Related Persons Name: BRAYAN VELAZCO Address: [address] [place] [address] Name: NOEL LIZAMA Address: [address] [place] [address] Name: FADY NIELSON Address: [address] [place] [address]
--- OUTSIDE RECORDS SUMMARY | 2024-06-15 11:14 | XMS_ITS | Continuity of Care Document ---
Author Organization [facility] Address [address] [place] [address]- Care Team Providers Care Attendant [facility] Name Role Phone Christiano FANG, Tito [place] Primary Care Physician [place] [facility] [place](s): 12/07/21 - 01/06/22 [facility] [address] [place], [place] [address] Allergies, Adverse Reactions, Alerts Substance Reaction [...] Mars rded influenza virus vaccine, inactivated 06/17/17 Mras rded Medications busPIRone 5 mg oral tablet 5 mg, 1, tablet, By Mouth, 2 times a day, PRN, # 60 tablet, Refills 1, Tot. Refills 1, Maintenance,Anxiety, 12/12/21 11:12:00 EDT, Route to Pharmacy Electronically, [facility] #[id number], Partial fill upon patient request if the [...] Refills, Maintenance, 10/02/21 15:44:00 EST, EC Capsule, [facility] #[id number], Partial fill upon patient request if the prescription... Start Date: 10/02/21 Status: Ordered duloxetine 60 mg oral enteric coated capsule 1 capsule = 60 mg, By Mouth, Daily, fill when patient next requests. To be taken with 30mg cap for total 90mg daily dose, # 30 capsule, 3 Refills, Maintenance, 10/02/21 15:45:00 EST, [facility] #[id number], 163, cm, 08/27/21 9:26:00 EST, Height,... Start Date: 10/02/21 Status: Ordered ferrous sulfate 325 mg oral enteric coated tablet 325 mg, 1, tablet, By Mouth, Daily, # 30 tablet, Refills 2, Tot. Refills 2, Maintenance, 12/05/21 11:39:00 EDT, Route to Pharmacy Electronically, [facility] #[id number], Partial fill upon patient request if the prescription is for a schedule II o... Start Date: 12/05/21 Status: Ordered hydrOXYzine hydrochloride 25 mg oral tablet 1-1.5 tablet, By Mouth, 3 times a day, PRN for anxiety, dose increase, # 60 tablet, 1 Refills, Maintenance, 10/08/21 14:51:00 EST, Tablet, [facility] #[id number], Partial fill upon patient request if the [...] 11/25/21 18:16:00 EDT, Route to Pharmacy Electronically, [facility] #[id number], Partial fill upon patient request if the prescriptio... Start Date: 11/25/21 Status: Ordered Paxlovid 150 mg-100 mg oral tablet See Instructions, nirmatrelvir 2 tabs PO and ritonavir 1 tab PO BID for 5 days, # 30 tablet, 0 Refills, Maintenance, 12/15/21 9:13:00 EDT, [facility] #[id number], Partial fill upon patient request if the [...] 2 Refills, Maintenance, 12/30/21 15:02:00 EDT, Tablet, [facility] #[id number], Partial fill upon patient request if the prescription is for a schedule II opioid drug., 157.... Start Date: 12/30/21 Status: Ordered tiZANidine 4 mg oral tablet 2 mg, 0.5, tablet, By Mouth, 3 times a day, PRN, # 45 tablet, Refills 0, Tot. Refills 0, Maintenance, Spasm, 11/25/21 18:16:00 EDT, Route to Pharmacy Electronically, [facility] #[id number], Partial fill upon patient request if the [...] e surgery: 2006 & 2008 at [facility](Confirmed) Active Status post knee surgery, [facility] 05/02/01(Confirmed) 05/02/01 Active Lumbar [...] Index: 48% ( severe disability ); updated [place] Back Pain Disability Scale score: 61; both [...] trigger thumb by Alex Putnam M.D. at [facility] 12Retrial prescribed 12/17/20. On 01/15, at [...]
--- OUTSIDE RECORDS SUMMARY | 2024-06-15 11:14 | XMS_ITS | Continuity of Care Document ---
Author Organization [facility] Address [address] [place] [address]- Care Team Providers Care Privacy Attorney Name Role Phone Tito Alvarado MD Primary Care Physician [phone] Encounter [facility] [place] Date(s): 09/28/22 - 11/11/22 [facility] [address] [place] [address]- Attending Physician: Kavya Barrera DO Admitting Physician: Kavya Barrera DO Allergies, Adverse Reactions, Alerts Substance Reaction Severity Status codeine nausea Active iodinated radiocontrast dyes N/V Active Immunizations Given and Recorded Vaccine Date Status Refusal Reason influenza virus vaccine, inactivated 1 06/02/22 Gi laurie influenza virus vaccine, inactivated 06/05/18 Mars rded influenza virus vaccine, inactivated 06/17/17 Mars rded [id number] 12y+ bivalent booster vax 03/27/22 Recorded SARS-CoV-2 (COVID-19) mRNA BNT-162b2 vac 08/21/21 Recorded SARS-CoV-2 (COVID-19) Ad26 vaccine 12/02/20 Given Influenza Virus Vaccine (oldterm) 07/13/20 Recorde d zoster vaccine, inactivated 11/20/18 Recorded zoster vaccine, inactivated 09/17/18 Recorded tetanus/diphtheria/pertussis, acel(Tdap) 06/05/18 Recorded 1Result Comment: [facility]:[id number] Medications AutoASV EPAPmin 8 EPAPmax 12 PSmin [...] tablet, 2 Refills, Maintenance, 10/30/22 15:04:00 EST, [facility] #[id number], 157.5, cm, 08/07/22 10:53:00 EST, Height, 87, kg, 10/14/22 11:44:00 EST, Dry Weight Start Date: 10/30/22 Status: Ordered buPROPion 150 mg/12 hours (SR) oral tablet, extended release 1 tablet = 150 mg, By Mouth, 2 times a day, dose increase, # 60 tablet, 3 Refills, Maintenance, 11/10/22 10:38:00 EDT, ER Tablet, [facility] #[id number], Partial fill upon patient request if theprescription [...] 30 capsule, 5 Refills, 08/14/22 12:55:00 EST, [facility] #[id number], 157.5, cm, 08/07/22 10:53:00 EST, Height, 82.8, kg, 08/07/22 10:17:00 EST, Dry Weight Start Date: 08/14/22 Status: Ordered duloxetine 60 mg oral enteric coated capsule 1 capsule = 60 mg, By Mouth, Daily, take with 30mg capsule for total 90mg daily, # 30 capsule, 5 Refills, Maintenance, 03/09/22 11:52:00 EDT, [facility] #[id number], 157.5, cm, 02/09/22 19:12:00EDT, Height, 77, kg, 01/13/22 9:51:00 EDT, Dry Weight Start Date: 03/09/22 Status: Ordered ferrous sulfate 325 mg oral enteric coated tablet 1, tablet, By Mouth, Daily, # 30 tablet, Refills 1, Maintenance, 05/06/22 11:08:00 EDT, Route to Pharmacy Electronically, [facility] #[id number], 157.5, cm, 05/01/22 9:45:00 EDT, Height, 83.4, kg, 05/01/22 9:11:00 EDT, Dry Weight Start Date: 05/06/22 Status: Ordered hydrOXYzine hydrochloride 25 mg oral tablet 1 TO 1 AND 1/2 TABLETS, By Mouth, 3 times a day, PRN NEEDED FOR ANXIETY, # 60 tablet, 2 Refills,Maintenance, 10/05/22 20:26:00 EST, [facility] #[id number], 157.5, cm, 08/07/22 10:53:00 EST, Height, 82.8, kg, 08/07/22 10:17:00 EST, Dry Weight Start Date: 10/05/22 Status: Ordered ipratropium nasal 21 mcg/inh spray See Instructions, PRN Nasal Congestion, 1 spray each nostril BID, # 1 each, 4 Refills, Maintenance,06/04/22 11:24:00 EDT, [facility] #[id number], Partial fill upon patient request if the [...] Refills, Maintenance, 09/02/22 23:37:00 EST, CR Tablet, [facility] #[id number], Partial fill upon patient request if the [...] tablet, 3 Refills, Maintenance, 10/12/22 18:54:00 EST, [facility] #[id number], 157.5, cm, 08/07/22 10:53:00 EST, Height, 82.8, [...] arthroscopic knee surgery: 2006 & 2008 at [facility] Confirmed Active Status post knee surgery, [facility] 05/02/01 Confirmed 05/02/01 Active Hypertension Confirmed Active [...] thumb by Alex Putnam M.D. at [facility] 7Retrial prescribed 12/17/20. On 01/15, at 10mg [...] Personnel Name: Cj Arthur Jr, MD Position: [facility] Anesthesiology MD Member Role: Lifetime Consulting Physician Address: Address: [address] [place] [address] [place] [address]- Name: Tito Alvarado MD Position: [facility] Primary Care Physician Member Role: PCP Address: Address: [address] [place] [address] Adult [place] [address]- Care Team Related Persons Name: BRAYAN VELAZCO Address: [address] [place] [address] Name: ABDON VELAZCO Name: NOEL LIZAMA Address: [address] [place] [address] Name: FADY NIELSON Address: [address] [place] [address]
--- OUTSIDE RECORDS SUMMARY | 2024-06-15 11:14 | XMS_ITS | Continuity of Care Document ---
Author Organization [facility] Address [address] [place] [address]- Care Team Providers Care Hardware Installer Name Role Phone Christiano FANG, Tito [place] Primary Care Physician [place] [facility] [place] 11[place]07/21 [facility] [address] [place], [place] [address] Allergies, Adverse [...] Refills, Maintenance, 10/02/21 15:44:00 EST, EC Capsule, [facility] #[id number], Partial fill upon patient request if the prescription... Start Date: 10/02/21 Status: Ordered duloxetine 60 mg oral enteric coated capsule 1 capsule = 60 mg, By Mouth, Daily, fill when patient next requests. To be taken with 30mg cap for total 90mg daily dose, # 30 capsule, 3 Refills, Maintenance, 10/02/21 15:45:00 EST, [facility] #[id number], 163, cm, 08/27/21 9:26:00 EST, Height,... Start Date: 10/02/21 Status: Ordered hydrOXYzine hydrochloride 25 mg oral tablet 1-1.5 tablet, By Mouth, 3 times a day, PRN for anxiety, dose increase, # 60 tablet, 1 Refills, Maintenance, 10/08/21 14:51:00 EST, Tablet, [facility] #[id number], Partial fill upon patient request if the [...] Gm, 1 Refills, Maintenance, 09/17/21 13:09:00 EST, [facility] #[id number], Partial fill upon patient request if the prescription is for a schedule II opioid drug., 163, cm, 08/27/21 9:26:00 EST, Height, 63... Start Date: 09/17/21 Status: Ordered NuLYTELY with Flavor Packs oral powder for reconstitution See Instructions, Drink 240mL every 15-20 minutes until first half is gone. Repeat 6 hours prior toprocedure., # 4,000 mL, 0 Refills, Maintenance, 09/17/21 13:09:00 EST, [facility] #[id number],Partial fill upon patient request if the prescript... [...] Gm, 0 Refills, Maintenance, 09/23/21 13:03:00 EST, [facility] #[id number], Partial fill upon patient request if the [...] 08/07/21 9:53:00... Start Date: 08/07/21 Status: Ordered topiramate 100 mg oral tablet 3 tablet = 300 mg, By Mouth, Daily at bedtime, # 84 tablet, 1 Refills, Maintenance, 08/26/21 14:05:00 EST, [facility] #[id number], 163, cm, 08/06/21 14:34:00 EST, Height, 63, [...] Refills, Soft Stop, 08/19/21 12:22:00 EST, Tablet, [facility] #[id number], Partial fill upon patient request if the [...] Hospital(Confirmed) Active Status post knee surgery, [facility] 05/02/01(Confirmed) 05/02/01 Active Lumbar facet joint [...] thumb by Alex Putnam M.D. at [facility] 12Retrial prescribed 12/17/20. On 01/15, at [...]
--- OUTSIDE RECORDS SUMMARY | 2024-06-15 11:14 | XMS_ITS | Continuity of Care Document ---
Author Organization [facility] Address [address] [place] [address]- Care Team Providers Care Store Host Name Role Phone Christiano FANG, Tito [place] Primary Care Physician [place] [facility] 08/02/21 [facility] [address] [place], [place] [address] Allergies, Adverse Reactions, Alerts [...] capsule, 3 Refills, Maintenance, 07/14/21 9:37:00 EST, [facility] #[id number], 163, cm, 07/02/21 14:28:00 EST, Height Start [...] tablet, 1 Refills, Maintenance, 07/03/21 10:52:00 EST, [facility] #[id number], 163, cm, 07/02/21 14:28:00 EST, Height Start [...] Medical Center(Confirmed) Active Status post knee surgery, [facility] 05/02/01(Confirmed) 05/02/01 Active Lumbar [...] right thumb, for Right trigger thumb by Alxe Putnam M.D. at [facility] 12Retrial prescribed 12/17/20. On 01/15, at [...]
--- OUTSIDE RECORDS SUMMARY | 2024-06-15 11:14 | XMS_ITS | Continuity of Care Document ---
Author Organization [facility] ter Address [address] [place] [address]- Care Team Providers Care Clinical Appeals Rn Name Role Phone Christiano FANG, Tito England Primary Care Physician [phone] [place] [facility] [place] - 11/25/[address] [address]- Discharge Disposition: A-D/C Home Attending Physician: Isra Santiago MD Admitting Physician: Isra Santiago MD Referring Physician: Isra Santiago MD Allergies, Adverse Reactions, Alerts Substance Reaction [...] Refills, Maintenance, 10/02/21 15:44:00 EST, EC Capsule, [facility] #[id number], Partial fill upon patient request if the prescription... Start Date: 10/02/21 Status: Ordered duloxetine 60 mg oral enteric coated capsule 1 capsule = 60 mg, By Mouth, Daily, fill when patient next requests. To be taken with 30mg cap for total 90mg daily dose, # 30 capsule, 3 Refills, Maintenance, 10/02/21 15:45:00 EST, [facility] #[id number], 163, cm, 08/27/21 9:26:00 EST, Height,... Start Date: 10/02/21 Status: Ordered hydrOXYzine hydrochloride 25 mg oral tablet 1-1.5 tablet, By Mouth, 3 times a day, PRN for anxiety, dose increase, # 60 tablet, 1 Refills, Maintenance, 10/08/21 14:51:00 EST, Tablet, [facility] #[id number], Partial fill upon patient request if the [...] 11/25/21 18:16:00 EDT, Route to Pharmacy Electronically, [facility] #[id number], Partial fill upon patient request if the prescriptio... Start Date: 11/25/21 Status: Ordered OxyCODONE IR Tablet 5 mg, Tablet, By Mouth, Every 4 hours, in PACU ONLY, if patient can tolerate PO, PRN for Pain , Mild, Routine, 11/25/21 14:59:00 EDT Start Date: 11/25/21 Stop Date: 12/02/21 Status: Ordered Physical Therapy Physical Therapy, See [...] 11/25/21 18:16:00 EDT, Route to Pharmacy Electronically, [facility] #[id number], Partial fill upon patient request if the [...] The Insane(Confirmed) Active Status post knee surgery, [facility] 05/02/01(Confirmed) 05/02/01 Active Lumbar [...] Index: 48% ( severe disability ); updated [place] Back Pain Disability Scale score: 61; both [...] trigger thumb by Alex Putnam M.D. at [facility] 12Retrial prescribed 12/17/20. On 01/15, at 10mg [...] on 03/31/2016 15ACE score: 0 on 07/01/17 Results Radiology Reports * Exam Date Time Procedure Performing Provider Status 11/25/21 2:58 PM C-Arm < 1 Hour Catrina Hilliard; Auth ( Verified) Notes: (C-Arm < 1 Hour) Reason For Exam: lumbar l5s1 microdisk RESULT: C-Arm < 1 Hour Lumbar Spine 2 or 3 Views, C-Arm < 1 Hour INDICATION: Reason: l5-s1 microdisk; Special Instructions: f.t. 5.3sec t.t. 3963-4454=55min dfa,kw dap 4.46 mGy COMPARISONS: None TECHNIQUE: Fluoroscopy support was provided. There was no radiologist in attendance. FLUOROSCOPY TIME: 5.3 seconds EXPOSURE: 4.46 mGy TECHNOLOGIST TIME: 55 minutes FINDINGS: Intraoperative images document surgical instruments overlying the L5-S1 level. IMPRESSION: See above. WSN: [id number] Ordering Physician: Isra Santiago Dictated By: Washington Araiza MD Dictated Date/Time: 11/25/21 4:02 pm Reviewed By: Washington Araiza MD Signed By: Washington Araiza MD Signed Date/Time: 11/25/21 4:02 pm Transcribed By: PER Transcribed Date/Time: 11/25/21 4:00 pm * Exam Date Time Procedure Performing Provider Status 11/25/21 2:58 PM Lumbar Spine 2 or 3 Views Enedelia Hilliard; Auth (Verified) Notes: (Lumbar Spine 2 or 3 Views) Reason For Exam: l5-s1 microdisk RESULT: Lumbar Spine 2 or 3 Views Lumbar Spine 2 or 3 Views, C-Arm < 1 Hour INDICATION: Reason: l5-s1 microdisk; Special Instructions: f.t. 5.3sec t.t. 8799-6425=55min dfa,kw dap 4.46 mGy COMPARISONS: None TECHNIQUE: Fluoroscopy support was provided. There was no radiologist in attendance. FLUOROSCOPY TIME: 5.3 seconds EXPOSURE: 4.46 mGy TECHNOLOGIST TIME: 55 minutes FINDINGS: Intraoperative images document surgical instruments overlying the L5-S1 level. IMPRESSION: See above. WSN: [id number] Ordering Physician: Isra Santiago Dictated By: Washington Araiza MD Dictated Date/Time: 11/25/21 4:02 pm Reviewed By: Washington Araiza MD Signed By: Washington Araiza MD Signed Date/Time: 11/25/21 4:02 pm Transcribed By: PER Transcribed Date/Time: 11/25/21 4:00 pm Vital Signs Most recent to oldest [Reference Range]: 1 2 3 Height 157.5 cm (11/25/21 11:03 AM) 157.5 cm (11/20/21 1:57 PM) Weight 74.2 kg (11/20/21 1:57 PM) Oxygen Saturation [94-100 %] 96 % (11/25/21 5:45 PM) 96 % (11/25/21 5:30 PM) 92 % *L* (11/25/21 5:15 PM) Pulse Rate [55-90 bpm] 94 bpm *H* (11/25/21 11:03 AM) Body Mass Index [18.5-24.99] 29.91 *H* (11/20/21 1:57 PM) Blood Pressure [90-138/55-84 mm Hg] 146/80mm Hg *H* (11/25/21 5:45 PM) 131/79mm Hg (11/25/21 5:30 PM) 143/78mm Hg *H* (11/25/21 5:15 PM) Respiratory Rate [16-30 br/min] 16 br/min (11/25/21 6:05 PM) 13 br/min *L* (11/25/21 5:45 PM) 33 br/min *H* (11/25/21 5:30 PM) Temperature [96.8-100.4 DegF] 97.4 DegF (11/25/21 5:45 PM) 97 DegF (11/25/21 3:30 PM) 99.1 DegF (11/25/21 11:03 AM) Liters per Minute 6 L/min (11/25/21 3:30 PM) Mode of Delivery (Oxygen) Room air (11/25/21 5:45 PM) Room air (11/25/21 5:00 PM) Simple face mask (11/25/21 3:30 PM) Blood pressure sites Arm, left (11/25/21 3:30 PM) Arm, right (11/25/21 11:03 AM) Temperature Route Temporal (11/25/21 5:45 PM) Temporal (11/25/21 3:30 PM) Temporal (11/25/21 11:03 AM) Dry Weight 74.2 kg (11/25/21 11:03 AM) 74.2 kg (11/20/21 1:57 PM) Weight Obtained Via Patient/family state d (11/20/21 1:57 PM) Dry Weight Obtained Via Standing scale (11/25/21 11:03 AM) Patient/family stated (11/20/21 1:57 PM) Social History Social History Type Response Smoking Status Former smoker; Stopp ed at age: 50; entered on: 03/11/17 Sex Female
--- OUTSIDE RECORDS SUMMARY | 2024-06-15 11:14 | XMS_ITS | Continuity of Care Document ---
Author Organization [facility] Address [address] [place] [address]- Care Team Providers Care Sales Record Clerk Name Role Phone Christiano FANG, Tito England Primary Care Physician Encounter [facility] [place] Date(s): 03/05/22 - 04/04/22 [facility] [address] [place], [place] [address] Allergies, Adverse Reactions, Alerts Substance Reaction [...] 12/12/21 11:12:00 EDT, Route to Pharmacy Electronically, [facility] #[id number], Partial fill upon patient request if the prescription is... Start Date: 12/12/21 Status: Ordered Calcium 600 +D 1 tablet, By Mouth, Daily at bedtime, 0 Refills, Maintenance, 05/14/20 7:48:00 EDT Start Date: 01/04/20 Status: Ordered Cannabis (Schedule I Substance) 2 puffs, Inhalation, Every 2 hours, PRN as needed for pain, 0 Refills, Maintenance, 04/22/16 14:08:47 EDT Start Date: 04/22/16 Status: Ordered doxycycline monohydrate 100 mg oral [...] capsule, 5 Refills, Maintenance, 03/09/22 11:52:00 EDT, [facility] #[id number], 157.5, cm, 02/09/22 19:12:00EDT, Height, 77, kg, 01/13/22 9:51:00 EDT, Dry Weight Start Date: 03/09/22 Status: Ordered ferrous sulfate 325 mg oral enteric coated tablet 1, tablet, By Mouth, Daily, # 30 tablet, Refills 0, Route to Pharmacy Electronically, [facility] #[id number], 157.5, cm, 02/09/22 19:12:00 EDT, Height, 77, kg, 01/13/22 9:51:00 EDT, Dry Weight Start Date: 03/08/22 Status: Ordered gabapentin 100 mg oral capsule 100 mg, 1, capsule, By Mouth, 3 times a day, # 90 capsule, Refills 5, Maintenance, 03/26/22 13:19:00 EDT, Partial fill upon patient request if the prescription is for a schedule II opioid drug. Start Date: 03/26/22 Status: Ordered hydrOXYzine hydrochloride 25 mg oral tablet 1 TO 1 AND 1/2 TABLETS, By Mouth, 3 times a day, PRN NEEDED FOR ANXIETY, # 60 tablet, 0 Refills,[facility] #[id number], 157.5, cm, 02/09/22 19:12:00 EDT, Height, 77, kg, 03/18/22 13:04:00 EDT, Dry Weight Start Date: 03/25/22 Status: Ordered magnesium oxide 500 mg oral tablet 1 tablet = 500 mg, By Mouth, Daily at bedtime, 0 Refills, Maintenance, 05/21/20 7:47:00 EDT Start Date: 05/21/20 Status: Ordered Myrbetriq 25 mg oral tablet, extended release 1 tablet = 25 mg, By Mouth, Daily at bedtime, Maintenance, 11/20/21 12:16:00 EDT Start Date: 11/20/21 Status: Ordered Oxycodone = 5 mg, By [...] 2 Refills, Maintenance, 12/30/21 15:02:00 EDT, Tablet, [facility] #[id number], Partial fill upon patient request if the [...] [facility]) Active Status post knee surgery, [facility] 05/02/01(Confirmed) 05/02/01 Active Lumbar facet joint pain(Confirmed) Active Lumbar radiculopathy, right(Confirmed) Active Radiculitis, lumbosacral rig ht S1 +/- L5 new 03/2019(Confirmed) 03/2019 Active Mechanical low back pain(Confirmed) Active Median nerve neuropathy, left(Confirmed) Active Myofascial pain, regional(Confirmed) Active Neuropathy, sacral, S1 bilaterally(Confirmed) Active Adverse effect of non-opioid analgesic: memantine(Confirmed) 12, 13 Active Obese class I(Confirmed) Active Obstructive sleep apnea(Confirmed) 14 Active Osteopenia(Confirmed) Active Buttock pain, right- at leas t in part related to S1 radiculitis(Confirmed) Active Coccydynia(Confirmed) Active Risk assessment: SOAPP-R(Confirmed) 15 Active Depression, major, recurrent , moderate(Confirmed) Active Recurrent severe major depre ssive disorder with anxiety(Confirmed) Active Abdominal pain, chronic, rig ht lower quadrant; intermittent; duration minutes(Confirmed) Active Risk assessment: Adverse Chi ldhood Experience(Confirmed) 16 Active Shoulder pain, mechanical, right(Confirmed) Active Shoulder [...] ( moderate disability ) on 05/26/17; updated [facility] [facility] [employer] [facility] Back Pain Disability Scale score: 18 on 05/26/17. 10Initial Oswestry Disability Index: 50% ( severe disability ) on 03/31/16; initial Neck Disability Index: 42% ( severe disability ) on 03/31/16; initial [facility] Back Pain Disability Scale score: 46 on 03/31/16. 11On 09/30/17 underwent Tenolysis, right thumb, for Right trigger thumb by Alex Putnam M.D. at [facility] 12Retrial prescribed 12/17/20. On 01/15, at [...] on 03/31/2016 16ACE score: 0 on 07/01/17 Social History Social History Type Response Smoking Status Former smoker; Stopp ed at age: 50; entered on: 03/11/17 Sex Female
--- OUTSIDE RECORDS SUMMARY | 2024-06-15 11:14 | XMS_ITS | Continuity of Care Document ---
Author Organization [facility] Address [address] [place] [address]- Care Team Providers Care Bakery Supervisor Name Role Phone Jo-Ann Cho MD Primary Care Physician [place] [facility] [place](s[place] 10/16/19 - 12/14/19 [facility] [address] [place] [address]- [facility] Attending Physician: Cj Arthur Jr., MD Admitting Physician: Cj Arthur Jr., MD Referring Physician: Jo-Ann Cho MD Allergies, [...] 11/30/19 9:14:00 EDT, Route to Pharmacy Electronically, [facility] #[id number], 163, cm, 11/30/19 7:45:00 EDT, Height, 64.2, kg, 03/18... Start Date: 11/30/19 Status: Ordered DULoxetine 40 mg oral delayed release capsule 1 capsule = 40 mg, By Mouth, Daily, To be taken with 60mg capsule to equal 100mg/day., # 28 capsule, 2 Refills, Maintenance, 11/21/19 8:24:00 EDT, [facility] #[id number], 163, cm, 10/16/19 7:44:00 EST, Height, 64.2, kg, 03/18/19 12:29:00 EDT, Dry... Start Date: 11/21/19 Status: Ordered duloxetine 60 mg oral enteric coated capsule 1 capsule, By Mouth, Daily, TO BE TAKEN WITH 40 MG CAPSULE FOR TOTAL DAILY DOSE OF 100MG, # 28 capsule, 2 Refills, Maintenance, 11/21/19 8:24:00 EDT, [facility] #[id number], 163, cm, 10/16/19 7:44:00 EST, Height, 64.2, kg, 03/18/19 12:29:00 EDT,... Start Date: 11/21/19 Status: Ordered Linzess 72 mcg oral capsule 1 capsule = 72 mcg, By Mouth, Daily, PRN Constipation Start Date: 05/25/19 Status: Ordered Misc Rx Refills 0, Maintenance, Calcim 500 mg and Magnesium 600 mg, 08/08/19 8:31:47 EST, Compound Start Date: 08/08/19 Status: Ordered Ossian 325 mg-10 mg oral tablet 1 - [...] tablet, 5 Refills, Maintenance, 08/08/19 12:18:42 EST, [facility] #[id number], 163, cm, 08/08/19 8:04:18 EST, Height, 64.2, [...] occipital nerve) >>left(Confirmed) Active Daytime somnolence(Confirmed) Active Medical cannabis use(Confirmed) Active Ex-cigarette smoker(Confirmed) [...] e surgery: [address] [facility](Confirmed) Active Status post knee surgery, [facility] 05/02/01(Confirmed) 05/02/01 Active Lumbar facet joint pain(Confirmed) [...] Active Abdominal cramping(Confirmed) Active Heart murmur, systolic, paieg ble when recumbent(Confirmed) Active Tinnitus(Confirmed) 05/07/17 Active 1Updated Oswestry Disability Index: 35% moderate [...] Putnam M.D. at [facility] 6SOAPP-R: 24 on 03/31/2016 7ACE score: 0 on 07/01/17 Social History Social History Type Response Smoking Status Former smoker; Tobac co user in household: No entered on: 07/07/17 Sex Female
--- OUTSIDE RECORDS SUMMARY | 2024-06-15 11:14 | XMS_ITS | Continuity of Care Document ---
Author Organization [facility] Address [address] [place] [address]- Care Team Providers Care Career Advisor Name Role Phone Ronnie FANG, Johann Briggs Primary Care Physician [phone] Encounter [facility] Date(s): 12/07/22 - 02/10/23 [facility] [address] [place], [place] [address] Attending Physician: Tito Alvarado MD Allergies, Adverse Reactions, Alerts Substance Reaction Severity Status codeine nausea Active iodinated radiocontrast dyes N/V Active Immunizations Given and Recorded Vaccine Date Status Refusal Reason influenza virus vaccine, inactivated 1 06/02/22 Gi laurie influenza virus vaccine, inactivated 06/05/18 Mars rded influenza virus vaccine, inactivated 06/17/17 Mars rded [id number] 12y+ bivalent booster vax 03/27/22 Recorded SARS-CoV-2 (COVID-19) mRNA BNT-162b2 vac 08/21/21 Recorded SARS-CoV-2 (COVID-19) Ad26 vaccine 12/02/20 Given Influenza Virus Vaccine (oldterm) 07/13/20 Recorde d zoster vaccine, inactivated 11/20/18 Recorded zoster vaccine, inactivated 09/17/18 Recorded tetanus/diphtheria/pertussis, acel(Tdap) 06/05/18 Recorded 1Result Comment: [facility]:[id number] Medications AutoASV EPAPmin 8 EPAPmax 12 PSmin [...] Refills, Maintenance, 11/10/22 10:38:00 EDT, ER Tablet, [facility] #[id number], Partial fill upon patient request if theprescription [...] capsule, 5 Refills, Maintenance, 12/15/22 12:42:00 EDT, [facility] #[id number], 157.5, cm, 12/07/22 11:15:00 EDT, Height, 85, kg, 11/10/22 10:21:00 EDT, Dry Weight Start Date: 12/15/22 Status: Ordered ferrous sulfate 325 mg oral enteric coated tablet 1, tablet, By Mouth, Daily, # 30 tablet, Refills 1, Maintenance, 05/06/22 11:08:00 EDT, Route to Pharmacy Electronically, [facility] #[id number], 157.5, cm, 05/01/22 9:45:00 EDT, Height, 83.4, kg, 05/01/22 9:11:00 EDT, Dry Weight Start Date: 05/06/22 Status: Ordered gabapentin 100 mg oral capsule 100 mg, 1, capsule, By Mouth, 3 times a day, # 90 capsule, Refills 1, Tot. Refills 1, Maintenance, 12/07/22 11:26:00 EDT, Route to Pharmacy Electronically, [facility] #[id number], Partial fill upon patient request if the prescription is for a armond... Start Date: 12/07/22 Status: Ordered hydrOXYzine hydrochloride 25 mg oral tablet 1 TO 1 AND 1/2 TABLETS, By Mouth, 3 times a day, PRN NEEDED FOR ANXIETY, # 120 tablet, 0 Refills, Maintenance, 01/14/23 23:42:00 EDT, [facility] #[id number], 157.5, cm, 12/07/22 11:15:00 EDT,Height, 85, kg, 11/10/22 10:21:00 EDT, Dry Weight Start Date: 01/14/23 Status: Ordered ipratropium nasal 21 mcg/inh spray See Instructions, PRN Nasal Congestion, 1 spray each nostril BID, # 1 each, 4 Refills, Maintenance,06/04/22 11:24:00 EDT, [facility] #[id number], Partial fill upon patient request if the [...] Refills, Maintenance, 09/02/22 23:37:00 EST, CR Tablet, [facility] #[id number], Partial fill upon patient request if the prescription is for a schedule II opioid drug., 157.5, cm, 08/07/22 10:53:0... Start Date: 09/02/22 Status: Ordered pramipexole 0.125 mg oral tablet 3 tablet, By Mouth, Daily at bedtime, # 90 tablet, 3 Refills, Maintenance, 10/12/22 18:54:00 EST, [facility] #[id number], 157.5, cm, 08/07/22 10:53:00 EST, Height, 82.8, [...] Center Confirmed Active Status post knee surgery, [facility] 05/02/01 Confirmed 05/02/01 Active Hypertension Confirmed [...] thumb by Alex Putnam M.D. at [facility] 7Retrial prescribed 12/17/20. On 01/15, [...] Name: Sandhya Tsai MD, Cj Reyna Position: [facility] Anesthesiology MD Member Role: Lifetime Consulting Physician Address: Address: [address] [place] [address] [place] [address]- Name: Johann Trujillo MD Position: Reference Physician Member Role: PCP Address: Address: [address] [place] [address]- Care Team Related Persons Name: BRAYAN VELAZCO Address: [address] [place] [address] Name: ABDON VELAZCO Name: NOEL LIZAMA Address: [address] [place] [address] Name: FADY NIELSON Address: [address] [place] [address]
--- OUTSIDE RECORDS SUMMARY | 2024-06-15 11:14 | XMS_ITS | Continuity of Care Document ---
Author Organization [facility] Address [address] [place] [address]- Care Team Providers Care Hydraulic Bull Riveter Operator Name Role Phone Ronnie FANG, Johann Briggs Primary Care Physician [place] [facility] [place]): 05/06/23 - 06/05/23 [facility] [address] [address]- Attending Physician: Margaret Vargas Admitting Physician: Margaret Vargas Referring Physician: Margaret Vargas Allergies, Adverse Reactions, Alerts Substance Reaction Severity Status codeine nausea Active iodinated radiocontrast dyes N/V Active Immunizations Given and Recorded Vaccine Date Status Refusal Reason influenza virus vaccine, inactivated 1 06/02/22 Gi laurie influenza virus vaccine, inactivated 06/05/18 Mars rded influenza virus vaccine, inactivated 06/17/17 Mars rded [id number] 12y+ bivalent booster vax 03/27/22 Recorded SARS-CoV-2 (COVID-19) mRNA BNT-162b2 vac 08/21/21 Recorded SARS-CoV-2 (COVID-19) Ad26 vaccine 12/02/20 Given Influenza Virus Vaccine (oldterm) 07/13/20 Recorde d zoster vaccine, inactivated 11/20/18 Recorded zoster vaccine, inactivated 09/17/18 Recorded tetanus/diphtheria/pertussis, acel(Tdap) 06/05/18 Recorded 1Result Comment: [facility]:[id number] Medications buPROPion 150 mg/12 hours (SR) oral tablet, extended release 1 tablet = 150 mg, By Mouth, 2 times a day, dose increase, # 60 tablet, 3 Refills, Maintenance, 11/10/22 10:38:00 EDT, ER Tablet, [facility] #[id number], Partial fill upon patient request if theprescription [...] capsule, 5 Refills, Maintenance, 12/15/22 12:42:00 EDT, [facility] #[id number], 157.5, cm, 12/07/22 11:15:00 EDT, Height, 85, kg, 11/10/22 10:21:00 EDT, Dry Weight Start Date: 12/15/22 Status: Ordered duloxetine 60 mg oral enteric coated capsule 1 capsule = 60 mg, By Mouth, Daily, takes with 30 mg; total 90, # 30 capsule, 0 Refills, Maintenance, 05/06/23 16:06:00 EDT, [facility], Partial fill upon patient request if the prescription is for aschedule II opioid drug. Start Date: 05/06/23 Status: Ordered ferrous sulfate 325 mg oral enteric coated tablet 1, tablet, By Mouth, Daily, # 30 tablet, Refills 1, Maintenance, 05/06/22 11:08:00 EDT, Route to Pharmacy Electronically, [facility] #[id number], 157.5, cm, 05/01/22 9:45:00 EDT, Height, 83.4, kg, 05/01/22 9:11:00 EDT, Dry Weight Start Date: 05/06/22 Status: Ordered gabapentin 600 mg oral tablet 1 tablet = 600 mg, By Mouth, 3 times a day, # 90 tablet, 5 Refills, Maintenance, 05/06/23 16:05:00 EDT, Tablet, Partial fill upon patient request if the prescription is for a schedule II opioid drug. Start Date: 05/06/23 Status: Ordered hydrOXYzine hydrochloride 25 mg oral tablet 1 TO 1 AND 1/2 TABLETS, By Mouth, 3 times a day, PRN NEEDED FOR ANXIETY, # 120 tablet, 0 Refills, Maintenance, 01/14/23 23:42:00 EDT, [facility] #[id number], 157.5, cm, 12/07/22 11:15:00 EDT,Height, 85, kg, 11/10/22 10:21:00 EDT, Dry Weight Start Date: 01/14/23 Status: Ordered ipratropium nasal 21 mcg/inh spray See Instructions, PRN Nasal Congestion, 1 spray each nostril BID, # 1 each, 4 Refills, Maintenance,06/04/22 11:24:00 EDT, [facility] #[id number], Partial fill upon patient request if the [...] Refills, Maintenance, 09/02/22 23:37:00 EST, CR Tablet, [facility] #[id number], Partial fill upon patient request if the prescription is for a schedule II opioid drug., 157.5, cm, 08/07/22 10:53:0... Start Date: 09/02/22 Status: Ordered Oxygen See Instructions, 1 L/min during sleep, 0 Refills, Maintenance, 05/06/23 16:15:00 EDT, Partial fillupon patient request if the prescription is for a schedule II opioid drug. Start Date: 05/06/23 Status: Ordered pramipexole 0.125 mg oral tablet 3 tablet, By Mouth, Daily at bedtime, # 90 tablet, 3 Refills, Maintenance, 10/12/22 18:54:00 EST, [facility] #[id number], 157.5, cm, 08/07/22 10:53:00 EST, Height, 82.8, [...] Status post arthroscopic knee surgery: [address] [facility] Confirmed Active Status post knee surgery, [facility] 05/02/01 Confirmed 05/02/01 Active Hypertension Confirmed Active [...] M.D. at [facility] 7Retrial prescribed 12/17/20. On 01/15, at [...] Name: Sandhya Tsai MD, Cj Reyna Position: [facility] Anesthesiology MD Member Role: Lifetime Consulting Physician Address: Address: [address] [place] [address] [place] [address]- Name: Johann Trujillo MD Position: Reference Physician Member Role: PCP Address: Address: [address] [place] [address]- Care Team Related Persons Name: BRAYAN VELAZCO Address: [address] [place] [address] Name: ABDON VELAZCO Name: NOEL LIZAMA Address: [address] [place] [address] Name: FADY NIELSON Address: [address] [place] [address]
--- OUTSIDE RECORDS SUMMARY | 2024-06-15 11:14 | XMS_ITS | Continuity of Care Document ---
Author Organization [facility] Address [address] [place] [address]- Care Team Providers Care Application Development Intern Name Role Phone Christiano FANG, Tito England Primary Care Physician Encounter [facility] [place] Date(s): 03/13/22 - 04/12/22 [facility] [address] [place], [place] [address] Allergies, Adverse Reactions, Alerts Substance Reaction Severity [...] 12/12/21 11:12:00 EDT, Route to Pharmacy Electronically, [facility] #[id number], Partial fill upon patient request if the [...] capsule, 5 Refills, Maintenance, 03/09/22 11:52:00 EDT, [facility] #[id number], 157.5, cm, 02/09/22 19:12:00EDT, Height, 77, kg, 01/13/22 9:51:00 EDT, Dry Weight Start Date: 03/09/22 Status: Ordered ferrous sulfate 325 mg oral enteric coated tablet 1, tablet, By Mouth, Daily, # 30 tablet, Refills 0, Route to Pharmacy Electronically, [facility] #[id number], 157.5, cm, 03/26/22 13:17:00 EDT, Height, 77, kg, 03/18/22 13:04:00 EDT, Dry Weight Start Date: 04/07/22 Status: Ordered gabapentin 100 mg oral capsule [...] NEEDED FOR ANXIETY, # 60 tablet, 0 Refills,[facility] #[id number], 157.5, cm, 02/09/22 19:12:00 EDT, Height, 77, [...] a day, # 60 tablet, 3 Refills, [facility] #[id number], 157.5, cm, 03/26/22 13:17:00 EDT, Height, 77, [...] At [facility](Confirmed) Active Status post knee surgery, [facility] 05/02/01(Confirmed) 05/02/01 Active Lumbar facet joint pain(Confirmed) [...] ( moderate disability ) on 05/26/17; updated [facility] Back Pain Disability Scale score: 18 on 05/26/17. 10Initial Oswestry Disability Index: 50% ( severe disability ) on 03/31/16; initial Neck Disability Index: 42% ( severe disability ) on 03/31/16; initial [facility] Back Pain Disability Scale score: 46 on 03/31/16. 11On 09/30/17 underwent Tenolysis, right thumb, for Right trigger thumb by Alex Putnam M.D. at [facility] 12Retrial prescribed 12/17/20. On 01/15, at 10mg [...]
--- OUTSIDE RECORDS SUMMARY | 2024-06-15 11:14 | XMS_ITS | Continuity of Care Document ---
Author Organization [facility] Address [address] [place] [address]- Care Team Providers Care Associate Professor Of Management Name Role Phone Jo-Ann Cho MD Primary Care Physician [phone] [place] [facility] [place] 01/19/20 [facility] [address] [place] [address]- [facility] Attending Physician: Cj Arthur Jr, MD Admitting Physician: Cj Arthur Jr, MD Allergies, Adverse [...] 4pm., # 84 tablet, 0 Refills, Maintenance, 01/17/20 12:44:00 EDT, [facility] #[id number], DX: F90.0. Also, please refill diazepam 2mg. Thank you, 1 tab qa.m, 0.5-1 tab midday and 0-1... Start Date: 01/17/20 Status: Ordered Calcium 600 +D By Mouth, 0 Refills, Maintenance, 01/04/20 7:48:00 EDT Start Date: 01/04/20 Status: Ordered Cannabis (Schedule I Substance) 0 Refills, Maintenance, 04/22/16 14:08:47 Start Date: 04/22/16 Status: Ordered diazepam 2 mg oral tablet 0.5 - 1 tablet, By Mouth, Every 4 hours, PRN, # 112 tablet, Refills 1, Tot. Refills 1, Maintenance,pain/spams, 11/30/19 9:14:00 EDT, Route to Pharmacy Electronically, [facility] #[id number], 163, cm, 11/30/19 7:45:00 EDT, Height, 64.2, kg, 03/18... Start Date: 11/30/19 Status: Ordered DULoxetine 40 mg oral delayed release capsule 1 capsule = 40 mg, By Mouth, Daily, To be taken with 60mg capsule to equal 100mg/day., # 28 capsule, 2 Refills, Maintenance, 11/21/19 8:24:00 EDT, [facility] #[id number], 163, cm, 10/16/19 7:44:00 EST, Height, 64.2, kg, 03/18/19 12:29:00 EDT, Dry... Start Date: 11/21/19 Status: Ordered duloxetine 60 mg oral enteric coated capsule 1 capsule, By Mouth, Daily, TO BE TAKEN WITH 40 MG CAPSULE FOR TOTAL DAILY DOSE OF 100MG, # 28 capsule, 2 Refills, Maintenance, 11/21/19 8:24:00 EDT, [facility] #[id number], 163, cm, 10/16/19 7:44:00 EST, Height, 64.2, [...] EST, Compound Start Date: 08/08/19 Status: Ordered [place] 325 mg-10 mg oral tablet 1 - 1.5 tablets, By Mouth, Every 4 hours, PRN pain.max of 6 tabs/day., # 84 tablet, 0 Refills, Maintenance, 01/17/20 12:44:00 EDT, [facility] #[id number], Partial fill upon pt request. DX: M54.81, M54.5, M54.17, 1 - 1.5 tablets By Mouth Every 4 h... Start Date: 01/17/20 Status: Ordered topiramate 100 mg oral tablet 3 tablets, By Mouth, Daily at bedtime, # 84 tablet, 5 Refills, Maintenance, 08/08/19 12:18:42 EST, [facility] #[id number], 163, cm, 08/08/19 8:04:18 EST, Height, 64.2, [...] Effective Dates Status Health Status Inform ant Adverse reaction: zonisamide , lamotrigine(Confirmed) 1 Active Occipital neuralgia, right ( lesser occipital nerve) >>left(Confirmed) Active Somnolence, daytime; at leas t in part medication treatment related(Confirmed) Active Medical cannabis use(Confirmed) Active Ex-cigarette smoker(Confirmed) Active Urinary, incontinence, stres s female(Confirmed) Active Limitation due to disability(Confirmed) 2, 3, 4, 5 Active Anxiety, generalized(Confirmed) Active Status post bilateral [...] 04/26/18 Active Status post right thumb surgery(Confirmed) 6 Active Hidradenitis(Confirmed) Active Status post carpal tunnel release(Confirmed) 08/13/15 Active Status post arthroscopic kne e surgery: [address] [facility](Confirmed) Active Status post knee surgery, [facility] 05/02/01(Confirmed) 05/02/01 Active Lumbar facet joint pain(Confirmed) Active Lumbar radiculopathy, right(Confirmed) Active Radiculitis, lumbosacral rig ht S1 +/- L5 new 03/2019(Confirmed) 03/2019 Active Mechanical low back pain(Confirmed) Active Median nerve neuropathy, left(Confirmed) Active Myofascial pain, regional(Confirmed) Active Neuropathy, sacral, S1 bilaterally(Confirmed) Active Osteopenia(Confirmed) Active Buttock pain, right(Confirmed) Active Risk assessment: SOAPP-R(Confirmed) 7 Active Abdominal pain, chronic, rig ht lower quadrant; intermittent; lasts minutes(Confirmed) Active Risk assessment: Adverse Chi ldhood Experience(Confirmed) 8 Active Decreased range of motion of left shoulder(Confirmed) Active Shoulder pain, left(Confirmed) Active Lack of adequate sleep(Confirmed) Active Abdominal cramping(Confirmed) Active Heart murmur, systolic, paige ble when recumbent(Confirmed) Active Tinnitus(Confirmed) 05/07/17 Active Word finding problem(Confirmed) Active 1Zonisamide to 100mg/day and lamotrigine at 50mg/day caused hypersomnolence,; November - December 2019 2Updated Oswestry Disability Index: 35% moderate disability , [place] Back Pain Disability Scale: 35and Neck Disability Index: 8 on 06/29/19. 3Updated Oswestry Disability Index: 2% ( minimal disability ) on 06/09/18; updated [place] Back Pain Disability Scale score: 4 on 10/18/18; updated Neck Disability Index: 4% on 06/09/18 4Updated Oswestry Disability Index: 22% ( moderate disability ) on 05/26/17; updated [facility] Back Pain Disability Scale score: 18 on 05/26/17. 5Initial Oswestry Disability Index: 50% ( severe disability ) on 03/31/16; initial Neck Disability Index: 42% ( severe disability ) on 03/31/16; initial [facility] Back Pain Disability Scale score: 46 on 03/31/16. 6On 09/30/17 underwent Tenolysis, right thumb, for Right trigger thumb by Alex Putnam M.D. at [facility] 7SOAPP-R: 24 on 03/31/2016 8ACE score: 0 on 07/01/17 Vital Signs Most recent to oldest [Reference Range]: 1 Height 163 cm (12/20/19 8:19 AM) Weight 65.18 kg (12/20/19 8:19 AM) Body Mass Index [18.5-24.99] 24.53 (12/20/19 8:19 AM) Social History Social History Type Response Smoking Status Former smoker; Tobac co user in household: No entered on: 07/07/17 Sex Female
--- OUTSIDE RECORDS SUMMARY | 2024-06-15 11:14 | XMS_ITS | Continuity of Care Document ---
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 Refills 2, Maintenance, 06/23/21 17:37:00 EDT, Route to Pharmacy Electronically, [facility] #[id number], 163, cm, 06/03/21 14:20:00 EDT, Height Start [...] tablet, 1 Refills, Maintenance, 07/03/21 10:52:00 EST, [facility] #[id number], 163, cm, 07/02/21 14:28:00 EST, Height Start [...] kne e surgery: 2006 & 2008 at [facility](Confirmed) [facility] [...] Oswestry Disability Index: 35% moderate disability , [place] Back Pain Disability Scale: 35and Neck Disability Index: 8 on 06/29/19. 7Updated Oswestry Disability Index: 2% ( minimal disability ) on 06/09/18; updated [place] Back Pain Disability Scale score: 4 on 06/09/18; updated Neck Disability Index: 4% on 06/09/18 8Updated Oswestry Disability Index: 22% ( moderate disability ) on 05/26/17; updated [facility] Back Pain Disability Scale score: 18 on 05/26/17. 9Initial Oswestry Disability Index: 50% ( severe disability ) on 03/31/16; initial Neck Disability Index: 42% ( severe disability ) on 03/31/16; initial [facility] Back Pain Disability Scale score: 46 on 03/31/16. 10On 09/30/17 underwent Tenolysis, right thumb, for Right trigger thumb by Alex Putnam M.D. at [facility] 11Retrial prescribed 12/17/20. On 01/15, at 10mg [...]
--- OUTSIDE RECORDS SUMMARY | 2024-06-15 11:15 | XMS_ITS | Continuity of Care Document ---
Author Organization [facility] Address [address] [place] [address]- Care Team Providers Care Management Aide Name Role Phone Tammie FANG, Jo-Ann Primary Care Physician Encounter [facility] [place] Date(s): 11/21/20 - 01/03/21 [facility] [address] [place] [address] Attending Physician: Not on Staff, Attending MD Allergies, Adverse Reactions, Alerts Substance Reaction [...] tablet, 0 Refills, Maintenance, 12/23/20 17:16:00 EDT, [facility] #[id number], DX: F90.0., 1 tab qa.m, 0.5-1 tab [...] Not Route Start Date: 12/31/20 Status: Ordered FLUoxetine 20 mg oral capsule 60 mg, 3, capsule, By Mouth, Daily, # 84 capsule, Refills 2, Tot. Refills 2, Maintenance, 12/23/20 17:07:00 EDT, Route to Pharmacy Electronically, [facility] #[id number], 163, cm, 12/23/20 13:59:00 EDT, Height, 64.2, kg, 03/18/19 12:29:00 EDT, . Start Date: 12/23/20 Status: Ordered Ketamine 85mg capsule Ketamine 85mg [...] tablet, 0 Refills, Maintenance, 12/23/20 13:04:00 EDT, [facility] #[id number], This NMDA receptor agonist is being used to tr... Start Date: 12/23/20 Status: Ordered [place] 325 mg-10 mg oral tablet 1 - 1.5 tablets, By Mouth, Every 4 hours, PRN pain.max of 6 tabs/day., # 168 tablet, 0 Refills, Maintenance, 12/23/20 13:14:00 EDT, [facility] #[id number], Partial fill upon pt request. DX: M54.81, M54.5, M54.17, 1 - 1.5 tablets By Mouth Every 4... Start Date: 12/23/20 Status: Ordered topiramate 100 mg oral tablet 3 tablets, By Mouth, Daily at bedtime, # 84 tablet, 2 Refills, Maintenance, 11/21/20 8:46:00 EDT, [facility] #[id number], 163, cm, 11/21/20 7:51:00 EDT, Height, 64.2, [...] kne e surgery: 2006 & 2008 at (Confirmed) Active Status post knee surgery, [facility] 05/02/01(Confirmed) 05/02/01 Active Lumbar facet joint pain(Confirmed) [...] Oswestry Disability Index: 35% moderate disability , [place] Back Pain Disability Scale: 35and Neck Disability Index: 8 on 06/29/19. 6Updated Oswestry Disability Index: 2% ( minimal disability ) on 06/09/18; updated [place] Back Pain Disability Scale score: 4 on [...] trigger thumb by Alex Putnam M.D. at [facility] 10Memantine prescribed 01/25/20. With dose escal., pn [...]
--- OUTSIDE RECORDS SUMMARY | 2024-06-15 11:15 | XMS_ITS | Continuity of Care Document ---
Author Organization [facility] Address [address] [place] [address]- Care Team Providers Care Governor Assembler Hydraulic Name Role Phone Christiano FANG, Tito England Primary Care Physician [phone] [facility] [place]22 - 05/20/22 [facility] [address] [place], [place] [address] Allergies, [...] capsule, 5 Refills, Maintenance, 03/09/22 11:52:00 EDT, [facility] #[id number], 157.5, cm, 02/09/22 19:12:00EDT, Height, 77, kg, 01/13/22 9:51:00 EDT, Dry Weight Start Date: 03/09/22 Status: Ordered ferrous sulfate 325 mg oral enteric coated tablet 1, tablet, By Mouth, Daily, # 30 tablet, Refills 1, Maintenance, 05/06/22 11:08:00 EDT, Route to Pharmacy Electronically, [facility] #[id number], 157.5, cm, 05/01/22 9:45:00 EDT, Height, 83.4, kg, 05/01/22 9:11:00 EDT, Dry Weight Start Date: 05/06/22 Status: Ordered gabapentin 100 mg oral capsule 100 mg, 1, capsule, By Mouth, 3 times a day, # 90 capsule, Refills 5, Maintenance, 03/26/22 13:19:00 EDT, Partial fill upon patient request if the prescription is for a schedule II opioid drug. Start Date: 03/26/22 Status: Ordered Home Blood Pressure Monitor See Instructions, # 1 each, Refills 0, Tot. Refills 0, Maintenance, to check blood pressure at [facility], 05/01/22 9:46:00 EDT, Supply Start Date: 05/01/22 Status: Ordered hydrOXYzine hydrochloride 25 mg oral tablet 1 TO 1 AND 1/2 TABLETS, By Mouth, 3 times a day, PRN NEEDED FOR ANXIETY, # 60 tablet, 2 Refills,Maintenance, 05/06/22 11:08:00 EDT, [facility] #[id number], 157.5, cm, 05/01/22 9:45:00 EDT, Height, 83.4, kg, 05/01/22 9:11:00 EDT, Dry Weight Start Date: 05/06/22 Status: Ordered magnesium oxide 500 mg oral [...] a day, # 60 tablet, 3 Refills, [facility] #[id number], 157.5, cm, 03/26/22 13:17:00 EDT, Height, 77, [...] arthroscopic knee surgery: 2006 & 2009 at [facility] Confirmed Active Status post knee surgery, [facility] 05/02/01 Confirmed 05/02/01 Active [...] trigger thumb by Alex Putnam M.D. at [facility] 12Retrial prescribed 12/17/20. On 01/15, [...] Name: Christiano FANG, Tito England Address: Address: [address] [place] [address] Adult & Pediatric Medicine [place], [place] [address]
--- OUTSIDE RECORDS SUMMARY | 2024-06-15 11:15 | XMS_ITS | Continuity of Care Document ---
Author Organization [facility] Address [address] [place] [address]- Care Team Providers Care Mechanical Fitter Name Role Phone Ronnie FANG, Johann Briggs Primary Care Physician [place] [facility] [place] 09/21/23 - 10/21/23 [facility] [address] [place] [address]- Allergies, Adverse Reactions, Alerts Substance Reaction Severity Status codeine nausea Active iodinated radiocontrast dyes N/V Active Immunizations Given and Recorded Vaccine Date Status Refusal Reason influenza virus vaccine, inactivated 1 06/02/22 Gi laurie influenza virus vaccine, inactivated 06/05/18 Mars rded influenza virus vaccine, inactivated 06/17/17 Mars rded [id number] 12y+ bivalent booster vax 03/27/22 Recorded SARS-CoV-2 (COVID-19) mRNA BNT-162b2 vac 08/21/21 Recorded SARS-CoV-2 (COVID-19) Ad26 vaccine 12/02/20 Given Influenza Virus Vaccine (oldterm) 07/13/20 Recorde d zoster vaccine, inactivated 11/20/18 Recorded zoster vaccine, inactivated 09/17/18 Recorded tetanus/diphtheria/pertussis, acel(Tdap) 06/05/18 Recorded 1Result Comment: [facility]:[id number] Medications buPROPion 150 mg/12 hours (SR) oral tablet, extended release 1 tablet = 150 mg, By Mouth, 2 times a day, dose increase, # 60 tablet, 3 Refills, Maintenance, 11/10/22 10:38:00 EDT, ER Tablet, [email or web address] #[id number], Partial fill upon patient request if theprescription [...] capsule, 5 Refills, Maintenance, 12/15/22 12:42:00 EDT, [facility] #[id number], 157.5, cm, 12/07/22 11:15:00 EDT, Height, 85, [...] 05/06/22 11:08:00 EDT, Route to Pharmacy Electronically, [facility] #[id number], 157.5, cm, 05/01/22 9:45:00 EDT, Height, 83.4, [...] tablet, 0 Refills, Maintenance, 01/14/23 23:42:00 EDT, [facility] #[id number], 157.5, cm, 12/07/22 11:15:00 EDT,Height, 85, kg, 11/10/22 10:21:00 EDT, Dry Weight Start Date: 01/14/23 Status: Ordered ipratropium nasal 21 mcg/inh spray See Instructions, PRN Nasal Congestion, 1 spray each nostril BID, # 1 each, 4 Refills, Maintenance,06/04/22 11:24:00 EDT, [facility] #[id number], Partial fill upon patient request if the [...] Refills, Maintenance, 09/02/22 23:37:00 EST, CR Tablet, [facility] #[id number], Partial fill upon patient request if the [...] tablet, 3 Refills, Maintenance, 10/12/22 18:54:00 EST, [email or web address] #[id number], 157.5, cm, 08/07/22 10:53:00 EST, Height, 82.8, [...] Hospital Confirmed Active Status post knee surgery, [facility] 05/02/01 Confirmed 05/02/01 Active Hypertension Confirmed [...] thumb by Alex Putnam M.D. at [facility] 7Retrial prescribed 12/17/20. On 01/15, at 10mg [...] Name: Sandhya Tsai MD, Cj Reyna Position: [facility] Anesthesiology MD Member Role: Lifetime Consulting Physician Address: Address: [address] [place] [address] [place] [address]- Name: Ronnie FANG, Johann Briggs Position: Reference Physician Member Role: PCP Address: Address: [address] [place] [address]- Care Team Related Persons Name: BRAYAN VELAZCO Address: [address] [place] [address] Name: ABDON VELAZCO Name: NOEL LIZAMA Address: home [address] [place] [address] Name: FADY NIELSON Address: home [address] [place] [address]
--- OUTSIDE RECORDS SUMMARY | 2024-06-15 11:15 | XMS_ITS | Continuity of Care Document ---
Author Organization [facility] Address [address] [place] [address]- Care Team Providers Care Target Network Analyst Name Role Phone Jo-Ann Cho MD Primary Care Physician [phone] Encounter [facility] [place](s): 02/06/20 - 02/13/20 [facility] [address] [place] [address]- [facility] Attending Physician: Jo-Ann Cho MD Allergies, Adverse [...] tablet, 0 Refills, Maintenance, 01/17/20 12:44:00 EDT, [facility] #[id number], DX: F90.0. Also, please refill diazepam 2mg. [...] 11/30/19 9:14:00 EDT, Route to Pharmacy Electronically, [facility] #[id number], 163, cm, 11/30/19 7:45:00 EDT, Height, 64.2, kg, 03/18... Start Date: 11/30/19 Status: Ordered DULoxetine 40 mg oral delayed release capsule 1 capsule = 40 mg, By Mouth, Daily, To be taken with 60mg capsule to equal 100mg/day., # 28 capsule, 5 Refills, Maintenance, 02/12/20 10:25:00 EDT, [facility] #[id number], 163, cm, 01/25/20 7:56:00 EDT, Height, 64.2, kg, 03/18/19 12:29:00 EDT, . Start Date: 02/12/20 Status: Ordered duloxetine 60 mg oral enteric coated capsule 1 capsule, By Mouth, Daily, TO BE TAKEN WITH 40 MG CAPSULE FOR TOTAL DAILY DOSE OF 100MG, # 28 capsule, 5 Refills, Maintenance, 02/12/20 10:25:00 EDT, [facility] #[id number], 163, cm, 01/25/20 7:56:00 EDT, Height, 64.2, kg, 03/18/19 12:29:00 EDT,... Start Date: 02/12/20 Status: Ordered Linzess 72 mcg oral capsule 1 capsule = 72 mcg, By Mouth, Daily, PRN Constipation Start Date: 05/25/19 Status: Ordered memantine 10 mg oral tablet See Instructions, 0.5 tab by mouth bid for 7 days, 0.5 tab in AM, 1 tab PM for 14 days, then 1 tab bid, # 42 tablet, 0 Refills, Maintenance, 01/25/20 9:25:00 EDT, [facility] #[id number], 163, cm, 01/25/20 7:56:00 EDT, Height, 64.2, kg, 03/18/19 1... Start Date: 01/25/20 Status: Ordered Misc Rx Refills 0, Maintenance, Calcim 500 mg and Magnesium 600 mg, 08/08/19 8:31:47 EST, Compound Start Date: 08/08/19 Status: Ordered [place] 325 mg-10 mg oral tablet 1 - 1.5 tablets, By Mouth, Every 4 hours, PRN pain.max of 6 tabs/day., # 84 tablet, 0 Refills, Maintenance, 01/25/20 9:25:00 EDT, [facility] #[id number], Partial fill upon pt request. DX: M54.81, M54.5, M54.17, 1 - 1.5 tablets By Mouth Every 4 ho... Start Date: 01/25/20 Status: Ordered topiramate 100 mg oral tablet 3 tablets, By Mouth, Daily at bedtime, # 84 tablet, 5 Refills, Maintenance, 08/08/19 12:18:42 EST, [facility] #[id number], 163, cm, 08/08/19 8:04:18 EST, Height, 64.2, [...] kne e surgery: 2006 & 2008 at [facility](Confirmed) Active Status post knee surgery, [facility] 05/02/01(Confirmed) 05/02/01 Active Lumbar facet joint pain(Confirmed) Active Lumbar radiculopathy, right(Confirmed) Active Radiculitis, lumbosacral rig ht S1 +/- L5 new 03/2019(Confirmed) 03/2019 Active Mechanical low back pain(Confirmed) Active Median nerve neuropathy, left(Confirmed) Active Myofascial pain, regional(Confirmed) Active Neuropathy, sacral, S1 bilaterally(Confirmed) Active Osteopenia(Confirmed) Active Buttock pain, right(Confirmed) Active Risk assessment: SOAPP-R(Confirmed) 8 Active Abdominal pain, chronic, rig ht lower quadrant; intermittent; lasts minutes(Confirmed) Active Risk assessment: Adverse Chi ldhood Experience(Confirmed) 9 Active Decreased range of motion of left [...] aborted 01/16/20 2Tx w zonisamide begun on 5/6/20.at 50mg hs. On 100mg hs described significant [...] trigger thumb by Alex Putnam M.D. at [facility] 8SOAPP-R: 24 on 03/31/2016 9ACE score: 0 on 07/01/17 Social History Social History Type Response Smoking Status Former smoker; Tobac co user in household: No entered on: 07/07/17 Sex Female
--- OUTSIDE RECORDS SUMMARY | 2024-06-15 11:15 | XMS_ITS | Continuity of Care Document ---
Author Organization [facility] Address [address] [place] [address]- Care Team Providers Care Care Taker Name Role Phone Jo-Ann Cho MD Primary Care Physician [place] [facility] [place] - 09/29/20 [facility] [address] [place] [address]- Attending Physician: Jo-Ann Cho MD Allergies, Adverse [...] 4pm., # 84 tablet, 0 Refills, Maintenance, 08/19/20 12:16:00 EST, [facility] #[id number], DX: F90.0., 1 tab qa.m, 0.5-1 tab midday and 0-1 tab q 4pm., 163, cm, 08/15/20 10:48:00 EST,... Start Date: 08/19/20 Status: Ordered Calcium 600 +D By Mouth, 0 Refills, Maintenance, 01/04/20 7:48:00 EDT Start Date: 01/04/20 Status: Ordered Cannabis (Schedule I Substance) 0 Refills, Maintenance, 04/22/16 14:08:47 Start Date: 04/22/16 Status: Ordered diazepam 2 mg oral tablet 0.5 - 1 tablet, By Mouth, Every 4 hours, PRN, # 112 tablet, Refills 1, Tot. Refills 1, Maintenance,pain/spams, 07/02/20 9:07:00 EST, Route to Pharmacy Electronically, [facility] #[id number], 163, cm, 07/02/20 7:54:00 EST, Height, 64.2, kg, 03/18... Start Date: 07/02/20 Status: Ordered duloxetine 20 mg oral enteric coated capsule 2 capsule = 40 mg, By Mouth, Daily, for use w/60mg caps for TDD of 100mg, # 56 capsule, 5 Refills, Maintenance, 08/19/20 10:51:00 EST, [facility] #[id number], 163, cm, 08/15/20 10:48:00 EST, Height, 64.2, kg, 03/18/19 12:29:00 EDT, Dry Weight Start Date: 08/19/20 Status: Ordered duloxetine 30 mg oral enteric coated capsule See Instructions, 3 caps by mouth daily for 7 days, then 2 caps daily for 7 days, then 1 cap daily for 14 days., # 42 capsule, 0 Refills, Maintenance, 09/19/20 10:20:00 EST, [facility] #[id number], ., 163, cm, 09/18/20 15:01:00 EST, Height, 64.2,... Start Date: 09/19/20 Status: Ordered duloxetine 60 mg oral enteric coated capsule 2 capsules, By Mouth, Daily, Reflects dose increase effective 08/20/20., # 56 capsule, 3 Refills, Maintenance, 09/04/20 16:24:00 EST, [facility] #[id number], 163, cm, 08/20/20 7:51:00 EST, Height, 64.2, kg, 03/18/19 12:29:00 EDT, Dry Weight Start Date: 09/04/20 Status: Ordered FLUoxetine 10 mg oral tablet See Instructions, 1 tablet By Mouth Daily for 7 days, then 2 tabs daily for 14 days, then 3 tabs daily, # 56 tablet, 0 Refills, Maintenance, 09/19/20 10:20:00 EST, [facility] #[id number], ., 163, cm, 09/18/20 15:01:00 EST, Height, 64.2, kg, 03/18... Start Date: 09/19/20 Status: Ordered Ketamine 85mg capsule Ketamine 85mg [...] 7:47:00 EDT Start Date: 05/21/20 Status: Ordered [place] 325 mg-10 mg oral tablet 1 - 1.5 tablets, By Mouth, Every 4 hours, PRN pain.max of 6 tabs/day., # 84 tablet, 0 Refills, Maintenance, 09/05/20 17:44:00 EST, [facility] #[id number], Partial fill upon pt request. DX: M54.81, M54.5, M54.17, 1 - 1.5 tablets By Mouth Every 4 h... Start Date: 09/05/20 Status: Ordered topiramate 100 mg oral tablet 3 tablets, By Mouth, Daily at bedtime, # 84 tablet, 2 Refills, Maintenance, 07/25/20 14:36:00 EST, [facility] #[id number], 163, cm, 07/25/20 13:49:00 EST, Height, 64.2, kg, 03/18/19 12:29:00 EDT, Dry Weight Start Date: 07/25/20 Status: Ordered VESIcare 10 mg oral tablet [...] post arthroscopic kne e surgery: [address] [facility](Confirmed) Active Status post knee surgery, [facility] 05/02/01(Confirmed) 05/02/01 Active Lumbar facet joint pain(Confirmed) Active Lumbar radiculopathy, right(Confirmed) Active Radiculitis, lumbosacral rig ht S1 +/- L5 new 03/2019(Confirmed) 03/2019 Active Mechanical low back pain(Confirmed) Active Median nerve neuropathy, left(Confirmed) Active Myofascial pain, regional(Confirmed) Active Neuropathy, sacral, S1 bilaterally(Confirmed) Active Adverse effect of non-opioid analgesic: memantine(Confirmed) 10 Active Osteopenia(Confirmed) Active Buttock pain, right(Confirmed) Active Risk assessment: SOAPP-R(Confirmed) 11 Active Abdominal pain, chronic, rig ht lower quadrant; intermittent; lasts minutes(Confirmed) Active Risk assessment: Adverse Chi ldhood Experience(Confirmed) 12 Active Decreased range of motion of left [...] trigger thumb by Alex Putnam M.D. at [facility] 10Memantine prescribed 01/25/20. With dose escal., pn [...]
--- OUTSIDE RECORDS SUMMARY | 2024-06-15 11:15 | XMS_ITS | Continuity of Care Document ---
Author Organization [facility] [place] [place] [facility] Address [address] [place] [address]- Care Team Providers Care Lathe Turner Name Role Phone Christiano FANG, Tito England Primary Care Physician [place] [facility] [place] 04/29/22 - 05/29/[address] [facility] [place] [place] [facility] [address] [place], [place] [address] Allergies, Adverse Reactions, Alerts [...] capsule, 5 Refills, Maintenance, 03/09/22 11:52:00 EDT, [facility] #[id number], 157.5, cm, 02/09/22 19:12:00EDT, Height, 77, kg, 01/13/22 9:51:00 EDT, Dry Weight Start Date: 03/09/22 Status: Ordered ferrous sulfate 325 mg oral enteric coated tablet 1, tablet, By Mouth, Daily, # 30 tablet, Refills 1, Maintenance, 05/06/22 11:08:00 EDT, Route to Pharmacy Electronically, [facility][id number], 157.5, cm, 05/01/22 9:45:00 EDT, Height, 83.4, [...] 60 tablet, 2 Refills,Maintenance, 05/06/22 11:08:00 EDT, [facility] #[id number], 157.5, cm, 05/01/22 9:45:00 EDT, Height, 83.4, [...] a day, # 60 tablet, 3 Refills, [facility] #[id number], 157.5, cm, 03/26/22 13:17:00 EDT, Height, 77, [...] knee surgery: [address] [facility] Confirmed Active Status post knee surgery, [facility] 05/02/01 Confirmed 05/02/01 Active Lumbar facet [...] Index: 48% ( severe disability ); updated [place] Back Pain Disability Scale score: 61; both [...] ( moderate disability ) on 05/26/17; updated [facility] Back Pain Disability Scale score: 18 on 05/26/17. 10Initial Oswestry Disability Index: 50% ( severe disability ) on 03/31/16; initial Neck Disability Index: 42% ( severe disability ) on 03/31/16; initial [facility] Back Pain Disability Scale score: 46 on 03/31/16. 11On 09/30/17 underwent Tenolysis, right thumb, for Right trigger thumb by Alex Putnam M.D. at [facility] 12Retrial prescribed 12/17/20. On 01/15, [...] Name: Christiano FANG, Tito England Address: Address: [address] [place] [address] Adult & Pediatric [place], [place] [address]
--- OUTSIDE RECORDS SUMMARY | 2024-06-15 11:15 | XMS_ITS | Continuity of Care Document ---
Author Organization [facility] Address [address] [place] [address]- Care Team Providers Care Stock Checkerer Name Role Phone Christiano FANG, Tito England Primary Care Physician Encounter [facility] [place] Date(s): 03/16/22 - 04/15/22 [facility] [address] [place], [place] [address] Allergies, Adverse Reactions, Alerts Substance Reaction [...] 12/12/21 11:12:00 EDT, Route to Pharmacy Electronically, [facility] #[id number], Partial fill upon patient request if the [...] capsule, 5 Refills, Maintenance, 03/09/22 11:52:00 EDT, [facility] #[id number], 157.5, cm, 02/09/22 19:12:00EDT, Height, 77, kg, 01/13/22 9:51:00 EDT, Dry Weight Start Date: 03/09/22 Status: Ordered ferrous sulfate 325 mg oral enteric coated tablet 1, tablet, By Mouth, Daily, # 30 tablet, Refills 0, Route to Pharmacy Electronically, [facility] #[id number], 157.5, cm, 03/26/22 13:17:00 EDT, Height, 77, [...] NEEDED FOR ANXIETY, # 60 tablet, 0 Refills,[facility] #[id number], 157.5, cm, 02/09/22 19:12:00 EDT, Height, 77, [...] a day, # 60 tablet, 3 Refills, [facility] #[id number], 157.5, cm, 03/26/22 13:17:00 EDT, Height, 77, [...] kne e surgery: 2006 & 2008 at [facility](Confirmed) Active Status post knee surgery, [facility] 05/02/01(Confirmed) 05/02/01 Active Lumbar facet joint [...] Index: 48% ( severe disability ); updated [place] Back Pain Disability Scale score: 61; both [...] ( moderate disability ) on 05/26/17; updated [facility] Back Pain Disability Scale score: 18 on 05/26/17. 10Initial Oswestry Disability Index: 50% ( severe disability ) on 03/31/16; initial Neck Disability Index: 42% ( severe disability ) on 03/31/16; initial [facility] Back Pain Disability Scale score: 46 on 03/31/16. 11On 09/30/17 underwent Tenolysis, right thumb, for Right trigger thumb by Alex Putnam M.D. at [facility] 12Retrial prescribed 12/17/20. On 01/15, [...]
--- OUTSIDE RECORDS SUMMARY | 2024-06-15 11:15 | XMS_ITS | Continuity of Care Document ---
Author Organization [facility] Address [address] [place] [address]- Care Team Providers Care Bunch Trimmer Mold Name Role Phone Ronnie FANG, Johann Briggs Primary Care Physician Encounter [facility] Date(s): 01/13/23 - 02/12/23 [facility] [address] [place], [place] [address] Allergies, Adverse Reactions, Alerts Substance Reaction Severity Status codeine nausea Active iodinated radiocontrast dyes N/V Active Immunizations Given and Recorded Vaccine Date Status Refusal Reason influenza virus vaccine, inactivated 1 06/02/22 Gi laurie influenza virus vaccine, inactivated 06/05/18 Mars rded influenza virus vaccine, inactivated 06/17/17 Mars rded [id number] 12y+ bivalent booster vax 03/27/22 Recorded SARS-CoV-2 (COVID-19) mRNA BNT-162b2 vac 08/21/21 Recorded SARS-CoV-2 (COVID-19) Ad26 vaccine 12/02/20 Given Influenza Virus Vaccine (oldterm) 07/13/20 Recorde d zoster vaccine, inactivated 11/20/18 Recorded zoster vaccine, inactivated 09/17/18 Recorded tetanus/diphtheria/pertussis, acel(Tdap) 06/05/18 Recorded 1Result Comment: [facility]:[id number] Medications AutoASV EPAPmin 8 EPAPmax 12 PSmin [...] Refills, Maintenance, 11/10/22 10:38:00 EDT, ER Tablet, [facility] #[id number], Partial fill upon patient request if theprescription [...] capsule, 5 Refills, Maintenance, 12/15/22 12:42:00 EDT, [facility] #[id number], 157.5, cm, 12/07/22 11:15:00 EDT, Height, 85, kg, 11/10/22 10:21:00 EDT, Dry Weight Start Date: 12/15/22 Status: Ordered ferrous sulfate 325 mg oral enteric coated tablet 1, tablet, By Mouth, Daily, # 30 tablet, Refills 1, Maintenance, 05/06/22 11:08:00 EDT, Route to Pharmacy Electronically, [facility] #[id number], 157.5, cm, 05/01/22 9:45:00 EDT, Height, 83.4, kg, 05/01/22 9:11:00 EDT, Dry Weight Start Date: 05/06/22 Status: Ordered gabapentin 100 mg oral capsule 100 mg, 1, capsule, By Mouth, 3 times a day, # 90 capsule, Refills 1, Tot. Refills 1, Maintenance, 12/07/22 11:26:00 EDT, Route to Pharmacy Electronically, [facility] #[id number], Partial fill upon patient request if the prescription is for a armond... Start Date: 12/07/22 Status: Ordered hydrOXYzine hydrochloride 25 mg oral tablet 1 TO 1 AND 1/2 TABLETS, By Mouth, 3 times a day, PRN NEEDED FOR ANXIETY, # 120 tablet, 0 Refills, Maintenance, 01/14/23 23:42:00 EDT, [facility] #[id number], 157.5, cm, 12/07/22 11:15:00 EDT,Height, 85, kg, 11/10/22 10:21:00 EDT, Dry Weight Start Date: 01/14/23 Status: Ordered ipratropium nasal 21 mcg/inh spray See Instructions, PRN Nasal Congestion, 1 spray each nostril BID, # 1 each, 4 Refills, Maintenance,06/04/22 11:24:00 EDT, [facility] #[id number], Partial fill upon patient request if the [...] Refills, Maintenance, 09/02/22 23:37:00 EST, CR Tablet, [facility] #[id number], Partial fill upon patient request if the prescription is for a schedule II opioid drug., 157.5, cm, 08/07/22 10:53:0... Start Date: 09/02/22 Status: Ordered pramipexole 0.125 mg oral tablet 3 tablet, By Mouth, Daily at bedtime, # 90 tablet, 3 Refills, Maintenance, 10/12/22 18:54:00 EST, [facility] #[id number], 157.5, cm, 08/07/22 10:53:00 EST, Height, 82.8, [...] arthroscopic knee surgery: 2006 & 2008 at [facility] Confirmed Active Status post knee surgery, [facility] 05/02/01 Confirmed 05/02/01 Active Hypertension [...] trigger thumb by Alex Putnam M.D. at [facility] 7Retrial prescribed 12/17/20. On 01/15, at [...] Name: Sandhya Tsai MD, Cj Reyna Position: [facility] Anesthesiology MD Member Role: Lifetime Consulting Physician Address: Address: [address] [place] [address] [place] [address]- Name: Johann Trujillo MD Position: Reference Physician Member Role: PCP Address: Address: [address] [place] [id number]- Care Team Related Persons Name: BRAYAN VELAZCO Address: [address] [place] [address] Name: ABDON VELAZCO Name: NOEL LIZAMA Address: home [address] [place] [address] Name: FADY NIELSON Address: home [address] [place] [address]
--- OUTSIDE RECORDS SUMMARY | 2024-06-15 11:15 | XMS_ITS | Continuity of Care Document ---
Author Organization [facility] Address [address] [place] [address]- Care Team Providers Care Airframe Design Engineer Name Role Phone Tito Alvarado MD Primary Care Physician Encounter [facility] [place]s): 11/20/21 - 12/20/21 [facility] [address] [place], [place] [address] Attending Physician: Margaret Vargas Admitting Physician: AdmtrMargaret Referring Physician: Admtr, [id number] Allergies, Adverse Reactions, Alerts Substance Reaction Severity [...] 12/12/21 11:12:00 EDT, Route to Pharmacy Electronically, [facility] #[id number], Partial fill upon patient request if the [...] Refills, Maintenance, 10/02/21 15:44:00 EST, [facility], [facility][id number], Partial fill upon patient request if the prescription... Start Date: 10/02/21 Status: Ordered duloxetine 60 mg oral enteric coated capsule 1 capsule = 60 mg, By Mouth, Daily, fill when patient next requests. To be taken with 30mg cap for total 90mg daily dose, # 30 capsule, 3 Refills, Maintenance, 10/02/21 15:45:00 EST, [facility] #[id number], 163, cm, 08/27/21 9:26:00 EST, Height,... Start Date: 10/02/21 Status: Ordered ferrous sulfate 325 mg oral enteric coated tablet 325 mg, 1, tablet, By Mouth, Daily, # 30 tablet, Refills 2, Tot. Refills 2, Maintenance, 12/05/21 11:39:00 EDT, Route to Pharmacy Electronically, [facility] #[id number], Partial fill upon patient request if the prescription is for a schedule II o... Start Date: 12/05/21 Status: Ordered hydrOXYzine hydrochloride 25 mg oral tablet 1-1.5 tablet, By Mouth, 3 times a day, PRN for anxiety, dose increase, # 60 tablet, 1 Refills, Maintenance, 10/08/21 14:51:00 EST, Tablet, [facility] #[id number], Partial fill upon patient request if the [...] 11/25/21 18:16:00 EDT, Route to Pharmacy Electronically, [facility] #[id number], Partial fill upon patient request if the prescriptio... Start Date: 11/25/21 Status: Ordered Paxlovid 150 mg-100 mg oral tablet See Instructions, nirmatrelvir 2 tabs PO and ritonavir 1 tab PO BID for 5 days, # 30 tablet, 0 Refills, Maintenance, 12/15/21 9:13:00 EDT, [facility] #[id number], Partial fill upon patient request if the [...] tablet, 1 Refills,Maintenance, 12/05/21 11:52:00 EDT, Tablet, [facility] #[id number], Partial fill upon patient request if the prescription is for a schedule II opi... Start Date: 12/05/21 Status: Ordered tiZANidine 4 mg oral tablet 2 mg, 0.5, tablet, By Mouth, 3 times a day, PRN, # 45 tablet, Refills 0, Tot. Refills 0, Maintenance, Spasm, 11/25/21 18:16:00 EDT, Route to Pharmacy Electronically, [facility] #[id number], Partial fill upon patient request if the [...] e surgery: 2006 & 2008 at [facility](Confirmed) Active Status post knee surgery, [facility] 05/02/01(Confirmed) 05/02/01 Active Lumbar facet [...] trigger thumb by Alex Putnam M.D. at [facility] 12Retrial prescribed 12/17/20. On 01/15, at [...]
--- OUTSIDE RECORDS SUMMARY | 2024-06-15 11:15 | XMS_ITS | Continuity of Care Document ---
Author Organization [facility] Address [address] [place] [address]- Care Team Providers Care Order Management Specialist Name Role Phone Tito Alvarado MD Primary Care Physician [place] [facility] [place]12[place]21 - 09/13/21 [facility] [address] [place] [address]- Attending Physician: Cj Arthur Jr, MD Admitting [...] capsule, 3 Refills, Maintenance, 07/14/21 9:37:00 EST, [facility] #[id number], 163, cm, 07/02/21 14:28:00 EST, Height Start [...] 08/08/21 16:04:00 EST, Route to Pharmacy Electronically, [facility] #[id number], Partial fi... Start Date: 08/08/21 Stop Date: 11/06/21 Status: Ordered topiramate 100 mg oral tablet 3 tablet = 300 mg, By Mouth, Daily at bedtime, # 84 tablet, 1 Refills, Maintenance, 08/26/21 14:05:00 EST, [facility] #[id number], 163, cm, 08/06/21 14:34:00 EST, Height, 63, [...] Refills, Soft Stop, 08/19/21 12:22:00 EST, [id number], Partial fill upon patient request if the [...] Medical Center(Confirmed) Active Status post knee surgery, [facility] 05/02/01(Confirmed) 05/02/01 Active Lumbar [...] ( moderate disability ) on 05/26/17; updated [facility] Back Pain Disability Scale score: 18 on 05/26/17. 10Initial Oswestry Disability Index: 50% ( severe disability ) on 03/31/16; initial Neck Disability Index: 42% ( severe disability ) on 03/31/16; initial [facility] Back Pain Disability Scale score: 46 on 03/31/16. 11On 09/30/17 underwent Tenolysis, right thumb, for Right trigger thumb by Alex Putnam M.D. at [facility] 12Retrial prescribed 12/17/20. On 01/15, at 10mg [...]
--- OUTSIDE RECORDS SUMMARY | 2024-06-15 11:15 | XMS_ITS | Continuity of Care Document ---
Author Organization [facility] Address [address] [place] [address]- Care Team Providers Care Real Estate Listing Consultant Name Role Phone Jo-Ann Cho MD Primary Care Physician En[place] [facility] [place] Date(s): 03/13/20 - 05/04/20 [facility] [address] [place] [address]- [facility] Attending Physician: Cj Arthur Jr, MD Admitting Physician: Cj Arthur Jr, MD Referring Physician: [...] tablet, 0 Refills, Maintenance, 03/12/20 10:05:00 EDT, [facility] #[id number], DX: F90.0., 1 tab qa.m, 0.5-1 tab [...] 02/27/20 12:28:00 EDT, Route to Pharmacy Electronically, [facility] #[id number], 163, cm, 02/27/20 7:51:00 EDT, Height, 64.2, [...] capsule, 4 Refills, Maintenance, 03/12/20 16:17:00 EDT, [facility] #[id number], Replaces 40mg caps which her plan excludes., 163, cm, 03/12/20 7:53:00 EDT, He... Start Date: 03/12/20 Status: Ordered duloxetine 60 mg oral enteric coated capsule 1 capsule, By Mouth, Daily, TO BE TAKEN WITH 40 MG CAPSULE FOR TOTAL DAILY DOSE OF 100MG, # 28 capsule, 5 Refills, Maintenance, 02/12/20 10:25:00 EDT, [facility] #[id number], 163, cm, 01/25/20 7:56:00 EDT, Height, 64.2, [...] PRN Constipation Start Date: 05/25/19 Status: Ordered [place] 325 mg-10 mg oral tablet 1 - 1.5 tablets, By Mouth, Every 4 hours, PRN pain.max of 6 tabs/day., # 84 tablet, 0 Refills, Maintenance, 03/12/20 10:05:00 EDT, [facility] #[id number], Partial fill upon pt request. DX: M54.81, M54.5, M54.17, 1 - 1.5 tablets By Mouth Every 4 h... Start Date: 03/12/20 Status: Ordered topiramate 100 mg oral tablet 3 tablets, By Mouth, Daily at bedtime, # 84 tablet, 2 Refills, Maintenance, 03/12/20 8:07:00 EDT, [facility] #[id number], 163, cm, 03/12/20 7:53:00 EDT, Height, 64.2, [...] e surgery: 2006 & 2008 at [facility](Confirmed) Active Status post knee surgery, [facility] 05/02/01(Confirmed) 05/02/01 Active Lumbar facet joint [...] ( severe disability ) on 03/31/16; initial [facility] Back Pain Disability Scale score: 46 on 03/31/16. 7On 09/30/17 underwent Tenolysis, right thumb, for Right trigger thumb by Alex Putnam M.D. at [facility] 8Memantine prescribed 01/25/20. With dose escal., [...]
--- OUTSIDE RECORDS SUMMARY | 2024-06-15 11:15 | XMS_ITS | Continuity of Care Document ---
Author Organization [facility] [place] Address [address] [place] [address]- Care Team Providers Care Batch Dumper Name Role Phone Christiano FANG, Tito England Primary Care Physician Encounter [facility] Date(s): 10/23/21 - 11/22/21 [facility] [address] [place] [address]- Allergies, Adverse Reactions, Alerts Substance Reaction Severity [...] Refills, Maintenance, 10/02/21 15:44:00 EST, EC Capsule, [facility] #[id number], Partial fill upon patient request if the prescription... Start Date: 10/02/21 Status: Ordered duloxetine 60 mg oral enteric coated capsule 1 capsule = 60 mg, By Mouth, Daily, fill when patient next requests. To be taken with 30mg cap for total 90mg daily dose, # 30 capsule, 3 Refills, Maintenance, 10/02/21 15:45:00 EST, [facility] #[id number], 163, cm, 08/27/21 9:26:00 EST, Height,... Start Date: 10/02/21 Status: Ordered hydrOXYzine hydrochloride 25 mg oral tablet 1-1.5 tablet, By Mouth, 3 times a day, PRN for anxiety, dose increase, # 60 tablet, 1 Refills, Maintenance, 10/08/21 14:51:00 EST, Tablet, [facility] #[id number], Partial fill upon patient request if the [...] 12:16:00 EDT Start Date: 11/20/21 Status: Ordered Physical Therapy Physical Therapy, See Instructions, # 1 each, Refills 0, Tot. Refills 0, Maintenance, Evaluate and treat bilateral shoulder pain., 06/02/21 10:52:00 EDT, Supply Start Date: 06/02/21 Status: Ordered VESIcare 10 mg oral tablet [...] surgery: 2006 & 2008 at [facility](Confirmed) Active Status post knee surgery, [facility] 05/02/01(Confirmed) 05/02/01 Active Lumbar facet joint [...] trigger thumb by Alex Putnam M.D. at [facility] 12Retrial prescribed 12/17/20. On 01/15, at [...]
--- OUTSIDE RECORDS SUMMARY | 2024-06-15 11:15 | XMS_ITS | Continuity of Care Document ---
Author Organization [facility] Address [address] [place] [address]- Care Team Providers Care Confidential Secretary Name Role Phone Tammie FANG, Jo-Ann Primary Care Physician [place] [facility] [place]/21 [facility] [address] [place] [address]- Allergies, Adverse Reactions, Alerts Substance Reaction Severity [...] film, 0 Refills, Maintenance, 03/24/21 15:52:00 EDT, [facility] #[id number], Partial fill upon patient request if the [...] 03/17/21 15:51:00 EDT, Route to Pharmacy Electronically, [facility] #[id number], 163, cm, 03/17/21 13:56:00 EDT, Height Start Date: 03/17/21 Status: Ordered magnesium oxide 500 mg oral tablet 1 tablet = 500 mg, By Mouth, Daily, 0 Refills, Maintenance, 05/21/20 7:47:00 EDT Start Date: 05/21/20 Status: Ordered topiramate 100 mg oral tablet 2 tablet = 200 mg, By Mouth, Daily at bedtime, # 56 tablet, 2 Refills, Maintenance, 03/17/21 15:50:00 EDT, [facility] #[id number], 163, cm, 03/17/21 13:56:00 EDT, Height Start [...] kne e surgery: 2006 & 2008 at [facility](Confirmed) Active Status post knee surgery, [facility] 05/02/01(Confirmed) 05/02/01 Active Lumbar [...] thumb by Alex Putnam M.D. at [facility] 10Retrial prescribed 12/17/20. On 01/15, at [...]
--- OUTSIDE RECORDS SUMMARY | 2024-06-15 11:16 | XMS_ITS | Continuity of Care Document ---
Author Organization [facility] Address [address] [place] [address]- Care Team Providers Care Etl Tester Name Role Phone Christiano FANG, Tito England Primary Care Physician Encounter [facility] [place] Date(s): 09/24/22 - 10/24/22 [facility] [address] [address]- Attending Physician: Margaret Vargas Admitting Physician: Margaret Vargas Referring Physician: AdmtrMargaret Allergies, Adverse Reactions, Alerts Substance Reaction Severity Status codeine nausea Active iodinated radiocontrast dyes N/V Active Immunizations Given and Recorded Vaccine Date Status Refusal Reason influenza virus vaccine, inactivated 1 06/02/22 Gi laurie influenza virus vaccine, inactivated 06/05/18 Mars rded influenza virus vaccine, inactivated 06/17/17 Mars rded [id number] 12y+ bivalent booster vax 03/27/22 Recorded SARS-CoV-2 (COVID-19) mRNA BNT-162b2 vac 08/21/21 Recorded SARS-CoV-2 (COVID-19) Ad26 vaccine 12/02/20 Given Influenza Virus Vaccine (oldterm) 07/13/20 Recorde d zoster vaccine, inactivated 11/20/18 Recorded zoster vaccine, inactivated 09/17/18 Recorded tetanus/diphtheria/pertussis, acel(Tdap) 06/05/18 Recorded 1Result Comment: [facility]:[id number] Medications AutoASV EPAPmin 8 EPAPmax 12 PSmin [...] Refills, Maintenance, 06/23/22 14:08:00 EDT, ER Tablet, [facility] #[id number], Partial fillupon patient request if the prescription [...] 30 capsule, 5 Refills, 08/14/22 12:55:00 EST, [facility] #[id number], 157.5, cm, 08/07/22 10:53:00 EST, Height, 82.8, kg, 08/07/22 10:17:00 EST, Dry Weight Start Date: 08/14/22 Status: Ordered duloxetine 60 mg oral enteric coated capsule 1 capsule = 60 mg, By Mouth, Daily, take with 30mg capsule for total 90mg daily, # 30 capsule, 5 Refills, Maintenance, 03/09/22 11:52:00 EDT, [facility] #[id number], 157.5, cm, 02/09/22 19:12:00EDT, Height, 77, kg, 01/13/22 9:51:00 EDT, Dry Weight Start Date: 03/09/22 Status: Ordered ferrous sulfate 325 mg oral enteric coated tablet 1, tablet, By Mouth, Daily, # 30 tablet, Refills 1, Maintenance, 05/06/22 11:08:00 EDT, Route to Pharmacy Electronically, [facility] #[id number], 157.5, cm, 05/01/22 9:45:00 EDT, Height, 83.4, kg, 05/01/22 9:11:00 EDT, Dry Weight Start Date: 05/06/22 Status: Ordered hydrOXYzine hydrochloride 25 mg oral tablet 1 TO 1 AND 1/2 TABLETS, By Mouth, 3 times a day, PRN NEEDED FOR ANXIETY, # 60 tablet, 2 Refills,Maintenance, 10/05/22 20:26:00 EST, [facility] #[id number], 157.5, cm, 08/07/22 10:53:00 EST, Height, 82.8, kg, 08/07/22 10:17:00 EST, Dry Weight Start Date: 10/05/22 Status: Ordered ipratropium nasal 21 mcg/inh spray See Instructions, PRN Nasal Congestion, 1 spray each nostril BID, # 1 each, 4 Refills, Maintenance,06/04/22 11:24:00 EDT, [facility] #[id number], Partial fill upon patient request if the [...] Refills, Maintenance, 09/02/22 23:37:00 EST, CR Tablet, [facility] #[id number], Partial fill upon patient request if the [...] tablet, 3 Refills, Maintenance, 10/12/22 18:54:00 EST, [facility] #[id number], 157.5, cm, 08/07/22 10:53:00 EST, Height, 82.8, [...] arthroscopic knee surgery: 2006 & 2008 at [facility] Confirmed Active Status post knee surgery, [facility] 05/02/01 Confirmed 05/02/01 Active Lumbar facet [...] trigger thumb by Alex Putnam M.D. at [facility] 7Retrial prescribed 12/17/20. On 01/15, at [...] Member Role: Lifetime Consulting Physician Address: Address: [address] [place] [address] [place] [address]- [place] Name: Tito Alvarado MD Position: [facility] Primary Care Physician Member Role: PCP Address: Address: [address] [place] [address] Adult [facility] [place] [address]- Care Team Related Persons Name: BRAYAN VELAZCO Address: home [address] [place] [address] Name: NOEL LIZAMA Address: home [address] [place] [address] Name: FADY NIELSON Address: [address] [place] [address]
--- OUTSIDE RECORDS SUMMARY | 2024-06-15 11:16 | XMS_ITS | Continuity of Care Document ---
Author Organization [facility] Address [address] [place], [place] [address]brandi bhardwaj, [address] [place] [address]- Care Team Providers Care Build Manager Name Role Phone Christiano FANG, Tito England Primary Care Physician [phone] Encounter [facility] Date(s): 11/17/21 - 11/24/21 [facility] [address] [place] [address] Drive, [address] [place] [address]- Attending Physician: Isra Santiago MD Allergies, Adverse Reactions, [...] Refills, Maintenance, 10/02/21 15:44:00 EST, EC Capsule, [facility] #[id number], Partial fill upon patient request if the prescription... Start Date: 10/02/21 Status: Ordered duloxetine 60 mg oral enteric coated capsule 1 capsule = 60 mg, By Mouth, Daily, fill when patient next requests. To be taken with 30mg cap for total 90mg daily dose, # 30 capsule, 3 Refills, Maintenance, 10/02/21 15:45:00 EST, [facility] #[id number], 163, cm, 08/27/21 9:26:00 EST, Height,... Start Date: 10/02/21 Status: Ordered hydrOXYzine hydrochloride 25 mg oral tablet 1-1.5 tablet, By Mouth, 3 times a day, PRN for anxiety, dose increase, # 60 tablet, 1 Refills, Maintenance, 10/08/21 14:51:00 EST, Tablet, [facility] #[id number], Partial fill upon patient request if the [...] - [place](Confirmed) Active Status post knee surgery, [facility] 05/02/01(Confirmed) 05/02/01 Active Lumbar facet joint [...] Index: 48% ( severe disability ); updated [place] Back Pain Disability Scale score: 61; both [...] trigger thumb by Alex Putnam M.D. at [facility] 12Retrial prescribed 12/17/20. On 01/15, at [...] recent to oldest [Reference Range]: 1 Height 158 cm (11/17/21 9:54 AM) Weight 56 kg (11/17/21 9:54 AM) Body Mass Index [18.5-24.99] 22.43 (11/17/21 9:54 AM) Social History Social History Type Response Smoking Status Former smoker; Stopp ed at age: 50; entered on: 03/11/17 Sex Female
--- OUTSIDE RECORDS SUMMARY | 2024-06-15 11:16 | XMS_ITS | Continuity of Care Document ---
Author Organization [facility] Address [address] [place] [address]- Care Team Providers Care Pin Worker Name Role Phone Tito Alvarado MD [id number] Date(s[facility] 08/07/22 - 08/14/22 [facility] [address] [place], [place] [address] Encounter Diagnosis Memory loss(Discharge Diagnosis) - 08/09/22 Cognitive deficits(Discharge Diagnosis) - 08/09/22 Left fibular fracture(Discharge Diagnosis) - 08/09/22 Chronic cough(Discharge Diagnosis) - 08/09/22 Depression, major, recurrent, moderate(Discharge Diagnosis) - 08/09/22 Attending Physician: Tito Alvarado MD Allergies, Adverse Reactions, Alerts Substance Reaction Severity Status codeine nausea Active iodinated radiocontrast dyes N/V Active Immunizations Given and Recorded Vaccine Date Status Refusal Reason influenza virus vaccine, inactivated 1 06/02/22 Gi laurie influenza virus vaccine, inactivated 06/05/18 Mars rded influenza virus vaccine, inactivated 06/17/17 Mars rded [id number] 12y+ bivalent booster vax 03/27/22 Recorded SARS-CoV-2 (COVID-19) mRNA BNT-162b2 vac 08/21/21 Recorded SARS-CoV-2 (COVID-19) Ad26 vaccine 12/02/20 Given Influenza Virus Vaccine (oldterm) 07/13/20 Recorde d zoster vaccine, inactivated 11/20/18 Recorded zoster vaccine, inactivated 09/17/18 Recorded tetanus/diphtheria/pertussis, acel(Tdap) 06/05/18 Recorded 1Result Comment: [facility]:[id number] Medications Aerochamber w/Mask (Large) See Instructions, # [...] 10:38:00 EST, Aerosol, Route to Pharmacy Electronically, [id number], [facility] #[id number], 1... Start Date: 08/07/22 Status: Ordered AutoASV [...] Refills, Maintenance, 06/23/22 14:08:00 EDT, ER Tablet, [facility] #[id number], Partial fillupon patient request if the prescription [...] 30 capsule, 5 Refills, 08/14/22 12:55:00 EST, [facility] #[id number], 157.5, cm, 08/07/22 10:53:00 EST, Height, 82.8, kg, 08/07/22 10:17:00 EST, Dry Weight Start Date: 08/14/22 Status: Ordered duloxetine 60 mg oral enteric coated capsule 1 capsule = 60 mg, By Mouth, Daily, take with 30mg capsule for total 90mg daily, # 30 capsule, 5 Refills, Maintenance, 03/09/22 11:52:00 EDT, [facility] #[id number], 157.5, cm, 02/09/22 19:12:00EDT, Height, 77, kg, 01/13/22 9:51:00 EDT, Dry Weight Start Date: 03/09/22 Status: Ordered ferrous sulfate 325 mg oral enteric coated tablet 1, tablet, By Mouth, Daily, # 30 tablet, Refills 1, Maintenance, 05/06/22 11:08:00 EDT, Route to Pharmacy Electronically, [facility] #[id number], 157.5, cm, 05/01/22 9:45:00 EDT, Height, 83.4, kg, 05/01/22 9:11:00 EDT, Dry Weight Start Date: 05/06/22 Status: Ordered Flovent HFA 110 mcg/inh inhalation aerosol 1 puffs, Inhalation, 2 times a day, rinse mouth and throat after use, # 1 each, 2 Refills, Maintenance, 08/07/22 10:36:00 EST, Aerosol, [facility] #[id number], Partial fill upon patient request if the [...] 60 tablet, 2 Refills,Maintenance, 05/06/22 11:08:00 EDT, [facility] #[id number], 157.5, cm, 05/01/22 9:45:00 EDT, Height, 83.4, kg, 05/01/22 9:11:00 EDT, Dry Weight Start Date: 05/06/22 Status: Ordered ipratropium nasal 21 mcg/inh spray See Instructions, PRN Nasal Congestion, 1 spray each nostril BID, # 1 each, 4 Refills, Maintenance,06/04/22 11:24:00 EDT, [facility] #[id number], Partial fill upon patient request if the [...] 90 tablet, 3 Refills, 06/23/22 14:01:00 EDT, [facility] #[id number], 157.5, cm, 06/23/22 13:25:00 EDT, Height, 81.3, [...] Hospital Confirmed Active Status post knee surgery, [facility] 05/02/01 Confirmed 05/02/01 Active Lumbar facet joint [...] trigger thumb by Alex Putnam M.D. at [facility] 7Retrial prescribed 12/17/20. On 01/15, at [...] Dates Health Status Cl inical Service Informant Memory loss Discharge Diagnosis 08/09/22 Cognitive deficits Discharge Diagnosis 08/09/22 Left fibular fracture Discharge Diagnosis 08/09/22 Chronic cough Discharge Diagnosis 08/09/22 Depression, major, recurrent, moderate Discharge Diagnosis 08/09/22 Vital Signs Most recent to oldest [Reference Range]: 1 2 Height 157.5 cm (08/07/22 10:53 AM) 157.5 cm (08/07/22 10:17 AM) Weight 82.8 kg (08/07/22 10:17 AM) Oxygen Saturation [94-100 %] 97 % (08/07/22 10:17 AM) Pulse Rate [55-90 bpm] 106 bpm *H* (08/07/22 10:17 AM) Body Mass Index [18.5-24.99 kg/m2] 33.38 kg/m2 *>HHI* (08/07/22 10:17 AM) Blood Pressure [90-138/55-84 mm Hg] 133/ 88mm Hg (08/07/22 10:53 AM) 151/97mm Hg *H* (08/07/22 10:17 AM) Mode of Delivery (Oxygen) Room air (08/07/22 10:17 AM) Blood pressure sites Arm, right (08/07/22 10:17 AM) Dry Weight 82.8 kg (08/07/22 10:17 AM) Weight Obtained Via Standing scale (08/07/22 10:17 AM) Social History Social History Type Response Smoking Status Former smoker; Stop ed at age: 50; entered on: 03/11/17 Sex Female Note * Darleen Faria: PERFORM, SIGN, VERIFY Event Display: Patient Education/Instruction Authored Date: [id number] [facility] *[facility] Clinical Summary Name FAUSTO VELAZCO Age 56 Years 1965 PCP [facility]ito [facility]varado MD [id number] Visit Date 08/07/2022 09:58:00 Additional Instructions: Scheduled Appointments?? Future Appointments ?*[facility] ?[address]??[place],??[place],??[address] ?Phone:??--?Fax:??-- ?Appt. Date:??09/18/2022?11:00 AM ?Scheduled Provider:??Tito Alvarado MD ?*[facility] ?[address] ?[place],??[place],??[address] ?Phone:??--?Fax:??-- ?Appt. Date:??09/24/2022?10:30 AM ?Scheduled Provider:??Chung Jeffery MD Follow-Up Instructions ?? Diagnosis Encounter for general adult medical examination without abnormal findings Medications: Please continue your medications until treatment is completed or stopped by your provider. Discuss any questions related to medications with your provider. New Medications [id number], [address], [place] [id number], [phone] Albuterol (albuterol CFC free 90 mcg/inh inhalation aerosol) 2 puff(s) Inhalation every 4 hours as needed as needed for wheezing/cough/SOB. use with spacer chamber. Refills: 0. Next Dose: Durable Medical Equipment (Aerochamber w/Mask (Large)) to be used with flovent and albuterol. Refills: 0. Next Dose: Fluticasone (Flovent HFA 110 mcg/inh inhalation aerosol) 1 puff(s) Inhalation twice a day. rinse mouth and throat after use. Refills: 2. Next Dose: Medications to Continue with No Changes These medications were not printed or sent to your pharmacy BuPROpion (buPROPion 100 mg/12 hours (SR) oral tablet, extended release) 1 tab PO daily for 3 days,then increase to 1 tab PO BID thereafter. Refills: 1. Next Dose: Calcium And Vitamin D Combination (Calcium 600 +D) 1 tab(s) Oral Daily at Bedtime. Next Dose: Cannabis (Schedule I Substance) 2 puff(s) Inhalation every 2 hours as needed as needed for pain. Next Dose: Cholecalciferol (Vitamin D3 1000 intl units oral tablet) 1 tab(s) Oral Daily at Bedtime. Next Dose: Doxycycline (doxycycline monohydrate 100 mg oral capsule) 1 capsule Oral twice a day for 10 Days. Next Dose: Duloxetine (duloxetine 60 mg oral enteric coated capsule) 1 capsule Oral Daily. take with 30mg capsule for total 90mg daily. Refills: 5. Next Dose: Durable Medical Equipment (AutoASV EPAPmin 8 EPAPmax 12 PSmin 3 PSmax 15 with heated humidification) use overnight and naps from [employer]. Refills: 0. Next Dose: Durable Medical Equipment (Crutches) to be used for ambulation. Refills: 0. Next Dose: Durable Medical Equipment (Home Blood Pressure Monitor) to check blood pressure at home daily. Refills: 0. Next Dose: Durable Medical Equipment (Knee walker scooter rental-for 4 weeks) to be used for ambulation for left ankle sprain r/o fracture, unable to use crutches due to left hand surgery complications. Refills: 0. Next Dose: Durable Medical Equipment (Left ankle gel or air splint) to be worn on ambulation. Refills: 0. Next Dose: Durable Medical Equipment (Left Tall CAM Walker Boot) to be worn on ambulation. Refills: 0. Next Dose: Ferrous Sulfate (ferrous sulfate 325 mg oral enteric coated tablet) 1 tab(s) Oral Daily. Refills: 1. Next Dose: HydrOXYzine (hydrOXYzine hydrochloride 25 mg oral tablet) 1 TO 1 AND 1/2 TABLETS Oral 3 times a dayas needed NEEDED FOR ANXIETY. Refills: 2. Next Dose: Ipratropium Nasal (ipratropium nasal 21 mcg/inh spray) 1 spray each nostril BID; as needed Nasal Congestion. Refills: 4. Next Dose: Ipratropium Nasal (ipratropium nasal 21 mcg/inh spray) USE 1 SPRAY IN EACH NOSTRIL TWICE DAILY NEEDED FOR NASAL CONGESTION. Next Dose: Magnesium Oxide (magnesium oxide 500 mg oral tablet) 1 tab(s) Oral Daily at Bedtime. Next Dose: Meloxicam (meloxicam 15 mg oral tablet) 1 tab(s) Oral Daily. Next Dose: mirabegron (Myrbetriq 25 mg oral tablet, extended release) 1 tab(s) Oral Daily at Bedtime. Next Dose: mirabegron (Myrbetriq 50 mg oral tablet, extended release) TAKE 1 TABLET BY MOUTH EVERY DAY. Next Dose: Miscellaneous Rx (Physical Therapy) Evaluate and treat bilateral shoulder pain.. Refills: 0. Next Dose: Oxycodone 5 Milligram Oral every 4 hours as needed Pain , Moderate. Next Dose: Pramipexole (pramipexole 0.125 mg oral tablet) 3 tab(s) Oral Daily. 2-3 hours prior to bedtime. dose increase. Refills: 3. Next Dose: Solifenacin (VESIcare 10 mg oral tablet) 1 tab(s) Oral Daily at Bedtime. Rx by Dr Darleen Garcia (urology). Next Dose: Allergy Info:?? iodinated radiocontrast dyes; codeine Medications Given This Visit Future Orders ?No future orders Vital Signs Height 157.5 cm Weight 82.8 kg BMI 33.38 kg/m2 Blood Pressure 133 mm Hg/88 mm Hg Temperature Pulse Rate 106 bpm Respiratory Rate 02 Sat Mode of Delivery 97 %/Room air You can now view a summary of your hospital visit from the comfort of your home through a free online portal called [employer]. [employer] is a website that allows you to securely view your medical information including discharge summary, medications and follow-up visits. ??You can alsosend a secure electronic message to your doctor???s office to request appointments, renew medications or just ask a question. You can enroll at [email or web address] or register during your next office visit. Disclaimer:?? The information provided is of a general nature and is intended to be used in conjunction with the recommendations and advice of your health care practitioner. ??Every effort has been made to ensure that the information provided is accurate and complete at the time it is provided to you however, as your needs change, or, as new ??information becomes available, different or additional instructions may be required. If you have questions, please consult with your primary care provider or pharmacist, as appropriate. ??This information is not intended to serve as substitution for assessment and evaluation by a qualified health care provider. If you do not have a primary care provider, you may find a [facility] provider by calling [facility] [employer] Link at [phone]. For information about the plan of care including goals and instructions for your diagnosis, please see the patient education orders section of this document. Patient Education Materials?? The content of this educational material or handout may have been modified, supplemented, or adapted from its original content and format to support your individualized medical care. 4 Steps for Eating Healthier Changing the way you eat can improve your health. It can lower your cholesterol and blood pressure,and help you stay at a healthy weight. Your diet doesn???t have to be bland and boring to be healthy. Just watch your calories and follow these steps: 1. Eat fewer unhealthy fats ??? Choose more fish and lean meats instead of fatty cuts of meat. ??? Skip butter and lard, and use less margarine. ??? Pass on foods that have palm, coconut, or hydrogenated oils. ??? Eat fewer high-fat dairy foods like cheese, ice cream, and whole milk. ??? Get a heart-healthy cookbook and try some low-fat recipes. 2.??Go light on salt ??? Keep the saltshaker off the table. ??? Limit high-salt ingredients, such as soy sauce, bouillon, and garlic salt. ??? Instead of adding salt when cooking, season your food with herbs and flavorings. Try lemon, garlic, and onion. ??? Limit convenience foods, such as boxed or canned foods and restaurant food. ??? Read food labels and choose lower-sodium options. 3. Limit sugar ??? Pause before you add sugars to pancakes, cereal, coffee, or tea. This includes white and brown table sugar, syrup, honey, and molasses. Cut your usual amount by half. ??? Use non-sugar sweeteners. Stevia, aspartame, and sucralose can satisfy a sweet tooth without adding calories. ??? Swap out sugar-filled soda and other drinks. Buy sugar-free or low-calorie beverages. Remember water is always the best choice. ??? Read labels and choose foods with less added sugar. Keep in mind that dairy foods and foods with fruit will have some natural sugar. ??? Cut the sugar in recipes by 1/3 to 1/2. Boost the flavor with extracts like almond, vanilla, ororange. Or add spices such as cinnamon or nutmeg. 4. Eat??more fiber ??? Eat fresh fruits and vegetables every day. ??? Boost your diet with whole grains. Go for oats, whole-grain rice, and bran. ??? Add beans and lentils to your meals. ??? Drink more water to match your fiber increase. This is to help prevent constipation. ?? [id number] [employer]. [address] [place] [address], [place] [address]. All rights reserved. This information is not intended as a substitute for professional medical care. Always follow your healthcare professional's instructions. Prevention Guidelines, Women Ages 50 to 64 Screening tests and vaccines are an important part of managing your health. Health counseling is essential, too. Below are guidelines for these, for women ages 50 to 64. Talk with your healthcare provider to make sure you???re up to date on what you need. Screening Who needs it How often Type 2 diabetes or prediabetes All adults beginning at age 45 and adults without symptoms at any age who are overweight or obese and have 1 or more additional risk factors for diabetes. At?? least every 3 years Alcohol misuse All women in this age group At routine exams Blood pressure All women in this age group Every 2 years if your blood pressure is less than 120/80 mm Hg; yearly if your systolic blood pressure is 120 to 139 mm Hg, or your diastolic blood pressure reading is 80 to 89 mm Hg Breast cancer All women in this age group Yearly mammogram and clinical breast exam1 Cervical cancer All women in this age group, except women who have had a complete hysterectomy Pap test every 3 years or Pap test with human papillomavirus (HPV) test every 5 years Chlamydia Women at increased risk for infection At routine exams Colorectal cancer All women in this age group Flexible sigmoidoscopy every 5 years, or colonoscopy every 10 years, or double- contrast barium enema every 5 years; yearly fecal occult blood test or fecal immunochemical test; or a stool DNA test asoften as your health care provider advises; talk with your health care provider about which tests are best for you Depression All women in this age group At routine exams Gonorrhea Sexually active women at increased risk for infection At routine exams Hepatitis C Anyone at increased risk; 1 time for those born between 1945 and 1965 At routine exams High cholesterol or triglycerides All women in this age group who are at risk for coronary artery disease At least every 5 years HIV All women At routine exams Lung cancer Adults age 55 to 80 who have smoked Yearly screening in smokers with 30 pack-year history of smoking or who quit within 15 years Obesity All women in this age group At routine exams Osteoporosis Women who are postmenopausal Ask your healthcare provider Syphilis Women at increased risk for infection ??? talk with your healthcare provider At routine exams Tuberculosis Women at increased risk for infection ??? talk with your healthcare provider Ask your healthcare provider Vision All women in this age group Ask your healthcare provider Vaccine Who needs it How often Chickenpox (varicella) All women in this age group who have no record of this infection or vaccine 2 doses; the second dose should be given at least 4 weeks after the first dose Hepatitis A Women at increased risk for infection ??? talk with your healthcare provider 2 doses given at least 6 months apart Hepatitis B Women at increased risk for infection ??? talk with your healthcare provider 3 doses over 6 months; second dose should be given 1 month after the first dose; the third dose should be given at least 2 months after the second dose and at least 4 months after the first dose Haemophilus influenzaeType B (HIB) Women at increased risk for infection ??? talk with your healthcare provider 1 to 3 doses Influenza (flu) All women in this age group Once a year Measles, mumps, rubella (MMR) Women in this age group through their late 50s who have no record of these infections or vaccines 1 dose Meningococcal Women at increased risk for infection ??? talk with your healthcare provider 1 or more doses Pneumococcal conjugate vaccine (PCV13) and pneumococcal polysaccharide vaccine (PPSV23) Women at increased risk for infection ??? talk with your healthcare provider PCV13: 1 dose ages 19 to 65 (protects against 13 types of pneumococcal bacteria) PPSV23: 1 to 2 doses through age 64, or 1 dose at 65 or older (protects against 23 types of pneumococcal bacteria) Tetanus/diphtheria/pertussis (Td/Tdap) booster All women in this age group Td every 10 years, or a one-time dose of Tdap instead of a Td booster after age 18, then Td every 10 years Zoster All women ages 60 and older 1 dose Counseling Who needs it How often BRCA gene mutation testing for breast and ovarian cancer susceptibility Women with increased risk for having gene mutation When your risk is known Breast cancer and chemoprevention Women at high risk for breast cancer When your risk is known Diet and exercise Women who are overweight or obese When diagnosed, and then at routine exams Sexually transmitted infection prevention Women at increased risk for infection ??? talk with your healthcare provider At routine exams Use of daily aspirin Women ages 55 and up in this age group who are at risk for cardiovascular health problems such as stroke When your risk is known Use of tobacco and the health effects it can cause All women in this age group Every exam 1American Cancer Society ?? 3926-5825 [employer]. [address] [place] [address], [place] [address]. All rights reserved. This information is not intended as a substitute for professional medical care. Always follow your healthcare professional's instructions. Patient Care team information Care Team Personnel Name: Sandhya Tsai MD, Cj Reyna Position: [facility] Anesthesiology MD Member Role: Lifetime Consulting Physician Address: Address: [address] [place] [address] [place] [address]- Name: Tito Alvarado MD Position: [facility] Primary Care Physician Member Role: PCP Address: Address: [address] [place] [address] Adult [place] [address]- Care Team Related Persons Name: BRAYAN VELAZCO Address: home [address] [place] [address] Name: NOEL LIZAMA Address: [address] [place] [address] Name: FADY NIELSON Address: home [address] [place] [address]
--- OUTSIDE RECORDS SUMMARY | 2024-06-15 11:16 | XMS_ITS | Continuity of Care Document ---
Author Organization [facility] Address [address] [place] [address]- Care Team Providers Care Edge Bander Operator Name Role Phone Tammie FANG, Jo-Ann Primary Care Physician [phone] Encounter [facility] Date(s): 02/26/20 - 03/27/20 [facility] [address] [place] [address]- [facility] Allergies, Adverse Reactions, Alerts Substance Reaction Severity [...] tablet, 0 Refills, Maintenance, 03/12/20 10:05:00 EDT, [facility] #[id number], DX: F90.0., 1 tab qa.m, 0.5-1 tab [...] 02/27/20 12:28:00 EDT, Route to Pharmacy Electronically, [facility] #[id number], 163, cm, 02/27/20 7:51:00 EDT, Height, 64.2, [...] capsule, 4 Refills, Maintenance, 03/12/20 16:17:00 EDT, [facility] #[id number], Replaces 40mg caps which her plan excludes., 163, cm, 03/12/20 7:53:00 EDT, He... Start Date: 03/12/20 Status: Ordered duloxetine 60 mg oral enteric coated capsule 1 capsule, By Mouth, Daily, TO BE TAKEN WITH 40 MG CAPSULE FOR TOTAL DAILY DOSE OF 100MG, # 28 capsule, 5 Refills, Maintenance, 02/12/20 10:25:00 EDT, [facility] #[id number], 163, cm, 01/25/20 7:56:00 EDT, Height, 64.2, kg, 03/18/19 12:29:00 EDT,... Start Date: 02/12/20 Status: Ordered KETAMINE 10MG CAPSULE KETAMINE 10MG CAPSULE, See Instructions, # 60 capsule, Refills 0, Tot. Refills 0, Maintenance, 1-6 CAPS UP TO QID. FOLLOW WRITTEN INSTRUCTIONS. DX: occipital neuralgia (M54.81), 03/12/20 9:59:00 EDT,Supply Start Date: 03/12/20 Status: Ordered Linzess 72 mcg oral capsule 1 capsule = 72 mcg, By Mouth, Daily, PRN Constipation Start Date: 05/25/19 Status: Ordered [place] 325 mg-10 mg oral tablet 1 - 1.5 tablets, By Mouth, Every 4 hours, PRN pain.max of 6 tabs/day., # 84 tablet, 0 Refills, Maintenance, 03/12/20 10:05:00 EDT, [facility] #[id number], Partial fill upon pt request. DX: M54.81, M54.5, M54.17, 1 - 1.5 tablets By Mouth Every 4 h... Start Date: 03/12/20 Status: Ordered topiramate 100 mg oral tablet 3 tablets, By Mouth, Daily at bedtime, # 84 tablet, 2 Refills, Maintenance, 03/12/20 8:07:00 EDT, [facility] #[id number], 163, cm, 03/12/20 7:53:00 EDT, Height, 64.2, [...] The Insane(Confirmed) Active Status post knee surgery, [facility] 05/02/01(Confirmed) 05/02/01 Active Lumbar [...] Alxe Putnam M.D. at [facility] 8Memantine prescribed 01/25/20. With dose escal., [...]
--- OUTSIDE RECORDS SUMMARY | 2024-06-15 11:16 | XMS_ITS | Continuity of Care Document ---
Author Organization [facility] Address [address] [place] [address]- Care Team Providers Care Insole Channeler Name Role Phone Christiano FANG, Tito England Primary Care Physician [place] [facility] [place] 12/07/21 - 01/06/22 [facility] [address], [place] [address] Allergies, Adverse Reactions, [...] 12/12/21 11:12:00 EDT, Route to Pharmacy Electronically, [facility] #[id number], Partial fill upon patient request if the [...] Refills, Maintenance, 10/02/21 15:44:00 EST, EC Capsule, [facility] #[id number], Partial fill upon patient request if the prescription... Start Date: 10/02/21 Status: Ordered duloxetine 60 mg oral enteric coated capsule 1 capsule = 60 mg, By Mouth, Daily, fill when patient next requests. To be taken with 30mg cap for total 90mg daily dose, # 30 capsule, 3 Refills, Maintenance, 10/02/21 15:45:00 EST, [facility] #[id number], 163, cm, 08/27/21 9:26:00 EST, Height,... Start Date: 10/02/21 Status: Ordered ferrous sulfate 325 mg oral enteric coated tablet 325 mg, 1, tablet, By Mouth, Daily, # 30 tablet, Refills 2, Tot. Refills 2, Maintenance, 12/05/21 11:39:00 EDT, Route to Pharmacy Electronically, [facility] #[id number], Partial fill upon patient request if the prescription is for a schedule II o... Start Date: 12/05/21 Status: Ordered hydrOXYzine hydrochloride 25 mg oral tablet 1-1.5 tablet, By Mouth, 3 times a day, PRN for anxiety, dose increase, # 60 tablet, 1 Refills, Maintenance, 10/08/21 14:51:00 EST, Tablet, [facility] #[id number], Partial fill upon patient request if the [...] 11/25/21 18:16:00 EDT, Route to Pharmacy Electronically, [facility] #[id number], Partial fill upon patient request if the prescriptio... Start Date: 11/25/21 Status: Ordered Paxlovid 150 mg-100 mg oral tablet See Instructions, nirmatrelvir 2 tabs PO and ritonavir 1 tab PO BID for 5 days, # 30 tablet, 0 Refills, Maintenance, 12/15/21 9:13:00 EDT, [facility] #[id number], Partial fill upon patient request if the [...] 2 Refills, Maintenance, 12/30/21 15:02:00 EDT, Tablet, [facility] #[id number], Partial fill upon patient request if the prescription is for a schedule II opioid drug., 157.... Start Date: 12/30/21 Status: Ordered tiZANidine 4 mg oral tablet 2 mg, 0.5, tablet, By Mouth, 3 times a day, PRN, # 45 tablet, Refills 0, Tot. Refills 0, Maintenance, Spasm, 11/25/21 18:16:00 EDT, Route to Pharmacy Electronically, [facility] #[id number], Partial fill upon patient request if the [...] [facility] [place](Confirmed) Active Status post knee surgery, [facility] 05/02/01(Confirmed) 05/02/01 Active Lumbar facet [...] trigger thumb by Alex Putnam M.D. at [facility] 12Retrial prescribed 12/17/20. On 01/15, at [...]
--- OUTSIDE RECORDS SUMMARY | 2024-06-15 11:16 | XMS_ITS | Continuity of Care Document ---
Author Organization [facility] Address [address] [place] [address]- Care Team Providers Care Police Captain Precinct Name Role Phone Christiano FANG, Tito England Primary Care Physician Encounter [facility] [place] Date(s): 06/16/22 - 07/16/22 [facility] [address] [place], [place] [address] Allergies, Adverse Reactions, Alerts Substance Reaction Severity Status codeine nausea Active iodinated radiocontrast dyes N/V Active Immunizations Given and Recorded Vaccine Date Status Refusal Reason influenza virus vaccine, inactivated 1 06/02/22 Gi laurie influenza virus vaccine, inactivated 06/05/18 Mars rded influenza virus vaccine, inactivated 06/17/17 Mars rded [id number] 12y+ bivalent booster vax 03/27/22 Recorded SARS-CoV-2 (COVID-19) mRNA BNT-162b2 vac 08/21/21 Recorded SARS-CoV-2 (COVID-19) Ad26 vaccine 12/02/20 Given Influenza Virus Vaccine (oldterm) 07/13/20 Recorde d zoster vaccine, inactivated 11/20/18 Recorded zoster vaccine, inactivated 09/17/18 Recorded tetanus/diphtheria/pertussis, acel(Tdap) 06/05/18 Recorded 1Result Comment: [facility]:[id number] Medications AutoASV EPAPmin 8 EPAPmax 12 PSmin [...] Refills, Maintenance, 06/23/22 14:08:00 EDT, ER Tablet, [facility] #[id number], Partial fillupon patient request if the prescription [...] capsule, 5 Refills, Maintenance, 03/09/22 11:52:00 EDT, [facility] #[id number], 157.5, cm, 02/09/22 19:12:00EDT, Height, 77, kg, 01/13/22 9:51:00 EDT, Dry Weight Start Date: 03/09/22 Status: Ordered ferrous sulfate 325 mg oral enteric coated tablet 1, tablet, By Mouth, Daily, # 30 tablet, Refills 1, Maintenance, 05/06/22 11:08:00 EDT, Route to Pharmacy Electronically, [facility] #[id number], 157.5, cm, 05/01/22 9:45:00 EDT, Height, 83.4, [...] 60 tablet, 2 Refills,Maintenance, 05/06/22 11:08:00 EDT, [facility] #[id number], 157.5, cm, 05/01/22 9:45:00 EDT, Height, 83.4, kg, 05/01/22 9:11:00 EDT, Dry Weight Start Date: 05/06/22 Status: Ordered ipratropium nasal 21 mcg/inh spray See Instructions, PRN Nasal Congestion, 1 spray each nostril BID, # 1 each, 4 Refills, Maintenance,06/04/22 11:24:00 EDT, [facility] #[id number], Partial fill upon patient request if the [...] 90 tablet, 3 Refills, 06/23/22 14:01:00 EDT, [facility] #[id number], 157.5, cm, 06/23/22 13:25:00 EDT, Height, 81.3, [...] arthroscopic knee surgery: 2006 & 2008 at [facility] Confirmed Active Status post knee surgery, [facility] 05/02/01 Confirmed 05/02/01 Active Lumbar facet joint [...] thumb by Alex Putnam M.D. at [facility] 7Retrial prescribed 12/17/20. On 01/15, at [...] Name: Sandhya Tsai MD, Cj Reyna Position: [facility] Anesthesiology MD Member Role: Lifetime Consulting Physician Address: Address: [address] [place] [address] [place] [address]- Name: Tito Alvarado MD Position: [facility] Primary Care Physician Member Role: PCP Address: Address: [address] [place] [address] Adult [place] [address]- Care Team Related Persons Name: BRAYAN VELAZCO Address: [address] [place] [address] Name: NOEL LIZAMA Address: home [address] [place] [address] Name: FADY NIELSON Address: home [address] [place] [address]
--- OUTSIDE RECORDS SUMMARY | 2024-06-15 11:16 | XMS_ITS | Continuity of Care Document ---
Author Organization [facility] Address [address] [place] [address]- Care Team Providers Care Supervisor Solder Making Name Role Phone Tammie FANG, Jo-Ann Primary Care Physician Encounter [facility] Date(s): 10/15/20 - 11/14/20 [facility] [address] [place] [id number] [[email or web address]] Allergies, Adverse Reactions, Alerts Substance Reaction Severity [...] 4pm., # 84 tablet, 0 Refills, Maintenance, 10/08/20 10:57:00 EST, [facility] #[id number], DX: F90.0., 1 tab qa.m, 0.5-1 tab midday and 0-1 tab q 4pm., 163, cm, 10/08/20 7:51:00 EST, H... Start Date: 10/08/20 Status: Ordered Calcium 600 +D By Mouth, 0 Refills, Maintenance, 01/04/20 7:48:00 EDT Start Date: 01/04/20 Status: Ordered Cannabis (Schedule I Substance) 0 Refills, Maintenance, 04/22/16 14:08:47 Start Date: 04/22/16 Status: Ordered diazepam 2 mg oral tablet 0.5 - 1 tablet, By Mouth, Every 4 hours, PRN, # 112 tablet, Refills 1, Tot. Refills 1, Maintenance,pain/spams, 10/08/20 10:57:00 EST, Route to Pharmacy Electronically, [facility] #[id number], 163, cm, 10/08/20 7:51:00 EST, Height, 64.2, kg, 02/21... Start Date: 10/08/20 Status: Ordered FLUoxetine 40 mg oral capsule 1 capsule = 40 mg, By Mouth, Daily, # 30 capsule, 1 Refills, Maintenance, 10/23/20 17:26:00 EST, [facility] #[id number], 163, cm, 10/23/20 14:46:00 EST, Height, 64.2, [...] 7:47:00 EDT Start Date: 05/21/20 Status: Ordered [place]all 325 mg-10 mg oral tablet 1 - 1.5 tablets, By Mouth, Every 4 hours, PRN pain.max of 6 tabs/day., # 84 tablet, 0 Refills, Maintenance, 10/08/20 10:57:00 EST, [facility] #[id number], Partial fill upon pt request. DX: M54.81, M54.5, M54.17, 1 - 1.5 tablets By Mouth Every 4 h... Start Date: 10/08/20 Status: Ordered topiramate 100 mg oral tablet 3 tablets, By Mouth, Daily at bedtime, # 84 tablet, 2 Refills, Maintenance, 07/25/20 14:36:00 EST, [facility] #[id number], 163, cm, 07/25/20 13:49:00 EST, Height, 64.2, [...] kne e surgery: 2006 & 2009 at [facility](Confirmed) Active Status post knee surgery, [facility] 05/02/01(Confirmed) 05/02/01 Active Insomnia(Confirmed) Active Lumbar facet joint pain(Confirmed) Active Lumbar [...] trigger thumb by Alex Putnam M.D. at [facility] 10Memantine prescribed 01/25/20. With dose escal., [...]
--- OUTSIDE RECORDS SUMMARY | 2024-06-15 11:16 | XMS_ITS | Continuity of Care Document ---
Author Organization [facility] Address [address] [facility] [address] [place] [address]- Care Team Providers Care Dewaxer Name Role Phone Tito Alvarado MD Primary Care Physician Encounter 09/09/22 - 09/16/22 [facility] [address], [address] [place] [address]- Attending Physician: Tito Alvarado MD Admitting Physician: Tito Alvarado MD Referring Physician: Tito Alvarado MD Allergies, Adverse Reactions, Alerts Substance Reaction Severity Status codeine nausea Active iodinated radiocontrast dyes N/V Active Immunizations Given and Recorded Vaccine Date Status Refusal Reason influenza virus vaccine, inactivated 1 06/02/22 Gi laurie influenza virus vaccine, inactivated 06/05/18 Mars rded influenza virus vaccine, inactivated 06/17/17 Mars rded [id number] 12y+ bivalent booster vax 03/27/22 Recorded SARS-CoV-2 (COVID-19) mRNA BNT-162b2 vac 08/21/21 Recorded SARS-CoV-2 (COVID-19) Ad26 vaccine 12/02/20 Given Influenza Virus Vaccine (oldterm) 07/13/20 Recorde d zoster vaccine, inactivated 11/20/18 Recorded zoster vaccine, inactivated 09/17/18 Recorded tetanus/diphtheria/pertussis, acel(Tdap) 06/05/18 Recorded 1Result Comment: [facility]:[id number] Medications Aerochamber w/Mask (Large) See Instructions, # [...] 10:38:00 EST, Aerosol, Route to Pharmacy Electronically, [id number], [facility] #[id number], 1... Start Date: 08/07/22 Status: Ordered AutoASV [...] Refills, Maintenance, 06/23/22 14:08:00 EDT, ER Tablet, [facility] #[id number], Partial fillupon patient request if the prescription [...] 30 capsule, 5 Refills, 08/14/22 12:55:00 EST, [facility] #[id number], 157.5, cm, 08/07/22 10:53:00 EST, Height, 82.8, kg, 08/07/22 10:17:00 EST, Dry Weight Start Date: 08/14/22 Status: Ordered duloxetine 60 mg oral enteric coated capsule 1 capsule = 60 mg, By Mouth, Daily, take with 30mg capsule for total 90mg daily, # 30 capsule, 5 Refills, Maintenance, 03/09/22 11:52:00 EDT, [facility] #[id number], 157.5, cm, 02/09/22 19:12:00EDT, Height, 77, kg, 01/13/22 9:51:00 EDT, Dry Weight Start Date: 03/09/22 Status: Ordered ferrous sulfate 325 mg oral enteric coated tablet 1, tablet, By Mouth, Daily, # 30 tablet, Refills 1, Maintenance, 05/06/22 11:08:00 EDT, Route to Pharmacy Electronically, [facility] #[id number], 157.5, cm, 05/01/22 9:45:00 EDT, Height, 83.4, kg, 05/01/22 9:11:00 EDT, Dry Weight Start Date: 05/06/22 Status: Ordered Flovent HFA 110 mcg/inh inhalation aerosol 1 puffs, Inhalation, 2 times a day, rinse mouth and throat after use, # 1 each, 2 Refills, Maintenance, 08/07/22 10:36:00 EST, Aerosol, [facility] #[id number], Partial fill upon patient request if the [...] 60 tablet, 2 Refills,Maintenance, 05/06/22 11:08:00 EDT, [facility] #[id number], 157.5, cm, 05/01/22 9:45:00 EDT, Height, 83.4, kg, 05/01/22 9:11:00 EDT, Dry Weight Start Date: 05/06/22 Status: Ordered ipratropium nasal 21 mcg/inh spray See Instructions, PRN Nasal Congestion, 1 spray each nostril BID, # 1 each, 4 Refills, Maintenance,06/04/22 11:24:00 EDT, [facility] #[id number], Partial fill upon patient request if the [...] Refills, Maintenance, 09/02/22 23:37:00 EST, CR Tablet, [facility] #[id number], Partial fill upon patient request if the [...] 90 tablet, 3 Refills, 06/23/22 14:01:00 EDT, [facility] #[id number], 157.5, cm, 06/23/22 13:25:00 EDT, Height, 81.3, [...] arthroscopic knee surgery: 2006 & 2008 at [facility] Confirmed Active Status post knee surgery, [facility] 05/02/01 Confirmed 05/02/01 Active Lumbar facet joint [...] trigger thumb by Alex Putnam M.D. at [facility] 7Retrial prescribed 12/17/20. On 01/15, at [...] on 03/31/2016 11ACE score: 0 on 07/01/17 Results Radiology Reports * Exam Date Time Procedure Performing Provider Status 09/09/22 3:20 PM Dexa Bone Density (Axial) Geraldo Mera i; Auth (Verified) Notes: (Dexa Bone Density (Axial)) Reason For Exam: Osteoporosis;Osteoporosis RESULT: Dexa Bone Density (Axial) Name:FAUSTO VELAZCO Age:56 years Sex:Female Ethnicity:White Date of :1965 Reason: Osteoporosis; Clinical Question(s): Other:; worsening of osteoporosis Referring Provider:Tito Alvarado MD Study:Dexa Bone Density (Axial) Bone Density: Region BMD T-Score Z-Score Classification AP Spine 0.765 -2.6 -1.5 Osteoporosis TOTAL HIP 0.710 -1.9 -1.2 Osteopenia FEM NECK 0.669 -1.6 -0.6 Osteopenia 10-year Fracture Risk: Fracture Risk Not Reported: FRAX not reported because: Some T-score for Spine Total or Hip Total or Femoral Neck at or below -2.5 Impression: The patient has osteoporosis as determined by WHO criteria. Based on the results of the patient's bone density assessment, the risk of future fracture increases approximately two fold for each 1.0 SD decrease in T-score. However, low BMD is not the only risk factor for a future fragility fracture. Other clinical risk factors for osteoporotic fracture should be considered in ascertaining this patient's future fracturerisk including the patient's age, previous osteoporotic (fragility) fracture, estrogen deficiency/hypogonadism, risk of falling, use of medications implicated in bone loss (glucocorticoids), family history of osteoporotic fracture, diseases and conditions associated with bone loss, low body weight,smoking, high bone turnover, etc. Combining low BMD and other clinical risk factors result in a more precise assessment of future fracture risk. Secondary causes for osteoporosis, such as osteomalacia, other metabolic bone disorders,and diseases and conditions that may contribute to accelerated bone loss may have to be considered depending on the clinical situation. A repeat bone density assessment should be considered in two years. WSN: [id number] Ordering Physician: Tito Alvarado Dictated By: Monica Trent MD Dictated Date/Time: 09/15/22 11:45 a Reviewed By: Monica Trent MD Signed By: Monica Trent MD Signed Date/Time: 09/15/22 11:45 am Transcribed By: PER Transcribed Date/Time: 09/15/22 11:43 am Social History Social History Type Response Smoking Status Former smoker; Stopp ed at age: 50; entered on: 03/11/17 Sex Female DXA Skeletal system.axial Views for bone density * BHSPowerscribe , CIS S: TRANSCRIBE Monica Trent MD: VERIFY Event Display: Result: Authored Date: [id number] Name:FAUSTO VELAZCO Age:56 years Sex:Female Ethnicity:White Date of :1965 Reason: Osteoporosis; Clinical Question(s): Other:; worsening of osteoporosis Referring Provider:Tito Alvarado MD Study:Dexa Bone Density (Axial) Bone Density: Region BMD T-Score Z-Score Classification AP Spine 0.765 -2.6 -1.5 Osteoporosis TOTAL HIP 0.710 -1.9 -1.2 Osteopenia FEM NECK 0.669 -1.6 -0.6 Osteopenia 10-year Fracture Risk: Fracture Risk Not Reported: FRAX not reported because: Some T-score for Spine Total or Hip Total or Femoral Neck at or below -2.5 Impression: The patient has osteoporosis as determined by WHO criteria. Based on the results of the patient's bone density assessment, the risk of future fracture increases approximately two fold for each 1.0 SD decrease in T-score. However, low BMD is not the only risk factor for a future fragility fracture. Other clinical risk factors for osteoporotic fracture should be considered in ascertaining this patient's future fracturerisk including the patient's age, previous osteoporotic (fragility) fracture, estrogen deficiency/hypogonadism, risk of falling, use of medications implicated in bone loss (glucocorticoids), family history of osteoporotic fracture, diseases and conditions associated with bone loss, low body weight,smoking, high bone turnover, etc. Combining low BMD and other clinical risk factors result in a more precise assessment of future fracture risk. Secondary causes for osteoporosis, such as osteomalacia, other metabolic bone disorders,and diseases and conditions that may contribute to accelerated bone loss may have to be considered depending on the clinical situation. A repeat bone density assessment should be considered in two years. WSN: [id number] Ordering Physician: Tito Alvarado Dictated By: Monica Trent MD Dictated Date/Time: 09/15/22 11:45 a Reviewed By: Monica Trent MD Signed By: Monica Trent MD Signed Date/Time: 09/15/22 11:45 am Transcribed By: PER Transcribed Date/Time: 09/15/22 11:43 am Patient Care team information Care Team Personnel Name: Cj Arthur Jr, MD Position: [facility] Anesthesiology MD Member Role: Lifetime Consulting Physician Address: Address: [address] [place] [address] [place] [address]- Name: Tito Alvarado MD Position: [facility] Primary Care Physician Member Role: PCP Address: Address: [address] [place] [address] Adult & Pediatric Medicine [place], [place] [address] Care Team Related Persons Name: BRAYAN VELAZCO Address: [address] [place] [address] Name: NOEL LIZAMA Address: [address] [place] [address] Name: FADY NIELSON Address: [address] [place] [address]
--- OUTSIDE RECORDS SUMMARY | 2024-06-15 11:16 | XMS_ITS | Continuity of Care Document ---
Author Organization [facility] Address [address] [place] [address]- Care Team Providers Care Cancer Program Consultant Name Role Phone Tammie FANG, Jo-Ann Primary Care Physician Encounter [facility] Date(s): 08/19/20 - 09/18/20 [facility] [address] [place] [id number] Allergies, Adverse Reactions, Alerts Substance Reaction [...] tablet, 0 Refills, Maintenance, 08/19/20 12:16:00 EST, [facility] #[id number], DX: F90.0., 1 tab qa.m, 0.5-1 tab midday and 0-1 tab q 4pm., 163, cm, 08/15/20 10:48:00 EST,... Start Date: 08/19/20 Status: Ordered buprenorphine 300 mcg buccal film 1 film = 300 mcg, By Mouth, Every 12 hours, place film on inside of cheek and avoid food or drink until completely dissolved, # 28 film, 1 Refills, Maintenance, 08/29/20 17:01:[facility][id number], Partial fill upon patient request. PA... Start Date: 08/29/20 Status: Ordered Calcium 600 +D By Mouth, 0 Refills, Maintenance, 01/04/20 7:48:00 EDT Start Date: 01/04/20 Status: Ordered Cannabis (Schedule I Substance) 0 Refills, Maintenance, 04/22/16 14:08:47 Start Date: 04/22/16 Status: Ordered diazepam 2 mg oral tablet 0.5 - 1 tablet, By Mouth, Every 4 hours, PRN, # 112 tablet, Refills 1, Tot. Refills 1, Maintenance,pain/spams, 07/02/20 9:07:00 EST, Route to Pharmacy Electronically, [facility] #[id number], 163, cm, 07/02/20 7:54:00 EST, Height, 64.2, kg, 03/18... Start Date: 07/02/20 Status: Ordered duloxetine 20 mg oral enteric coated capsule 2 capsule = 40 mg, By Mouth, Daily, for use w/60mg caps for TDD of 100mg, # 56 capsule, 5 Refills, Maintenance, 08/19/20 10:51:00 EST, [facility] #[id number], 163, cm, 08/15/20 10:48:00 EST, Height, 64.2, kg, 03/18/19 12:29:00 EDT, Dry Weight Start Date: 08/19/20 Status: Ordered duloxetine 60 mg oral enteric coated capsule 2 capsules, By Mouth, Daily, Reflects dose increase effective 08/20/20., # 56 capsule, 3 Refills, Maintenance, 09/04/20 16:24:00 EST, [facility] #[id number], 163, cm, 08/20/20 7:51:00 EST, Height, 64.2, kg, 03/18/19 12:29:00 EDT, Dry Weight Start Date: 09/04/20 Status: Ordered Ketamine 85mg capsule Ketamine 85mg [...] 7:47:00 EDT Start Date: 05/21/20 Status: Ordered [place] 325 mg-10 mg oral tablet 1 - 1.5 tablets, By Mouth, Every 4 hours, PRN pain.max of 6 tabs/day., # 84 tablet, 0 Refills, Maintenance, 09/05/20 17:44:00 EST, [facility] #[id number], Partial fill upon pt request. DX: M54.81, M54.5, M54.17, 1 - 1.5 tablets By Mouth Every 4 h... Start Date: 09/05/20 Status: Ordered topiramate 100 mg oral tablet 3 tablets, By Mouth, Daily at bedtime, # 84 tablet, 2 Refills, Maintenance, 07/25/20 14:36:00 EST, [facility] #[id number], 163, cm, 07/25/20 13:49:00 EST, Height, 64.2, [...] [address] [facility](Confirmed) Active Status post knee surgery, [facility] 05/02/01(Confirmed) 05/02/01 Active Lumbar facet joint [...] disability ) on 05/26/17; updated [facility] Back Pain Disability Scale score: 18 on 05/26/17. 8Initial Oswestry Disability Index: 50% ( severe disability ) on 03/31/16; initial Neck Disability Index: 42% ( severe disability ) on 03/31/16; initial [facility] Back Pain Disability Scale score: 46 on 03/31/16. 9On 09/30/17 underwent Tenolysis, right thumb, for Right trigger thumb by Alex Putnam M.D. at [facility] 10Memantine prescribed 01/25/20. With dose escal., [...]
--- OUTSIDE RECORDS SUMMARY | 2024-06-15 11:16 | XMS_ITS | Continuity of Care Document ---
Author Organization [facility] Address [address] [place] [address]- Care Team Providers Care Archaeology Professor Name Role Phone Tito Alvarado MD Primary Care Physician [phone] Encounter [facility] Date(s): 09/23/22 - 12/26/22 [facility] [address] [address]- Attending Physician: Chung Jeffery MD Admitting Physician: Chung Jeffery MD Allergies, Adverse Reactions, Alerts Substance Reaction Severity Status codeine nausea Active iodinated radiocontrast dyes N/V Active Immunizations Given and Recorded Vaccine Date Status Refusal Reason influenza virus vaccine, inactivated 1 06/02/22 Gi laurie influenza virus vaccine, inactivated 06/05/18 Mars rded influenza virus vaccine, inactivated 06/17/17 Mars rded [id number] 12y+ bivalent booster vax 03/27/22 Recorded SARS-CoV-2 (COVID-19) mRNA BNT-162b2 vac 08/21/21 Recorded SARS-CoV-2 (COVID-19) Ad26 vaccine 12/02/20 Given Influenza Virus Vaccine (oldterm) 07/13/20 Recorde d zoster vaccine, inactivated 11/20/18 Recorded zoster vaccine, inactivated 09/17/18 Recorded tetanus/diphtheria/pertussis, acel(Tdap) 06/05/18 Recorded 1Result Comment: [facility]:[id number] Medications AutoASV EPAPmin 8 EPAPmax 12 PSmin [...] tablet, 2 Refills, Maintenance, 10/30/22 15:04:00 EST, [facility] #[id number], 157.5, cm, 08/07/22 10:53:00 EST, Height, 87, kg, 10/14/22 11:44:00 EST, Dry Weight Start Date: 10/30/22 Status: Ordered buPROPion 150 mg/12 hours (SR) oral tablet, extended release 1 tablet = 150 mg, By Mouth, 2 times a day, dose increase, # 60 tablet, 3 Refills, Maintenance, 11/10/22 10:38:00 EDT, ER Tablet, [facility] #[id number], Partial fill upon patient request if theprescription [...] capsule, 5 Refills, Maintenance, 12/15/22 12:42:00 EDT, [facility] #[id number], 157.5, cm, 12/07/22 11:15:00 EDT, Height, 85, kg, 11/10/22 10:21:00 EDT, Dry Weight Start Date: 12/15/22 Status: Ordered ferrous sulfate 325 mg oral enteric coated tablet 1, tablet, By Mouth, Daily, # 30 tablet, Refills 1, Maintenance, 05/06/22 11:08:00 EDT, Route to Pharmacy Electronically, [facility] #[id number], 157.5, cm, 05/01/22 9:45:00 EDT, Height, 83.4, kg, 05/01/22 9:11:00 EDT, Dry Weight Start Date: 05/06/22 Status: Ordered gabapentin 100 mg oral capsule 100 mg, 1, capsule, By Mouth, 3 times a day, # 90 capsule, Refills 1, Tot. Refills 1, Maintenance, 12/07/22 11:26:00 EDT, Route to Pharmacy Electronically, [facility] #[id number], Partial fill upon patient request if the prescription is for a armond... Start Date: 12/07/22 Status: Ordered hydrOXYzine hydrochloride 25 mg oral tablet 1 TO 1 AND 1/2 TABLETS, By Mouth, 3 times a day, PRN NEEDED FOR ANXIETY, # 60 tablet, 2 Refills,Maintenance, 10/05/22 20:26:00 EST, [facility] #[id number], 157.5, cm, 08/07/22 10:53:00 EST, Height, 82.8, kg, 08/07/22 10:17:00 EST, Dry Weight Start Date: 10/05/22 Status: Ordered ipratropium nasal 21 mcg/inh spray See Instructions, PRN Nasal Congestion, 1 spray each nostril BID, # 1 each, 4 Refills, Maintenance,06/04/22 11:24:00 EDT, [facility] #[id number], Partial fill upon patient request if the [...] Refills, Maintenance, 09/02/22 23:37:00 EST, CR Tablet, [facility] #[id number], Partial fill upon patient request if the prescription is for a schedule II opioid drug., 157.5, cm, 08/07/22 10:53:0... 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 at [facility] 7Retrial prescribed 12/17/20. On 01/15, [...] Personnel Name: Cj Arthur Jr, MD Position: [facility] Anesthesiology MD Member Role: Lifetime Consulting Physician Address: Address: [address] [place] [address] [place] [address]- Name: Tito Alvarado MD Position: [facility] Primary Care Physician Member Role: PCP Address: Address: [address] [place] [address] Adult & [place] [address]- Care Team Related Persons Name: BRAYAN VELAZCO Address: home [address], [place] Name: ABDON VELAZCO Name: NOEL LIZAMA Address: home [address] [place] [id number] Name: FADY NIELSON Address: home [address] [place] [address]
--- OUTSIDE RECORDS SUMMARY | 2024-06-15 11:16 | XMS_ITS | Continuity of Care Document ---
Author Organization [facility] Address [address] [place] [address]- Care Team Providers Care Medical Parasitologist Name Role Phone Tammie FANG, Jo-Ann Primary Care Physician Encounter [facility] Date(s): 12/05/20 - 01/04/21 [facility] [address] [place] [id number] Allergies, Adverse Reactions, Alerts Substance Reaction Severity [...] tablet, 0 Refills, Maintenance, 12/23/20 17:16:00 EDT, [facility] #[id number], DX: F90.0., 1 tab qa.m, 0.5-1 tab [...] 12/23/20 17:07:00 EDT, [facility] to [facility]ically[facility][id number], 163, cm, 12/23/20 13:59:00 EDT, Height, 64.2, [...] tablet, 0 Refills, Maintenance, 12/23/20 13:04:00 EDT, [facility] #[id number], This NMDA receptor agonist is being used to tr... Start Date: 12/23/20 Status: Ordered Dewy Rose 325 mg-10 mg oral tablet 1 - 1.5 tablets, By Mouth, Every 4 hours, PRN pain.max of 6 tabs/day., # 168 tablet, 0 Refills, Maintenance, 12/23/20 13:14:00 EDT, [facility] #[id number], Partial fill upon pt request. DX: M54.81, M54.5, M54.17, 1 - 1.5 tablets By Mouth Every 4... Start Date: 12/23/20 Status: Ordered topiramate 100 mg oral tablet 3 tablets, By Mouth, Daily at bedtime, # 84 tablet, 2 Refills, Maintenance, 11/21/20 8:46:00 EDT, [facility] #[id number], 163, cm, 11/21/20 7:51:00 EDT, Height, 64.2, [...] e surgery: [address] [facility](Confirmed) Active Status post knee surgery, [facility] 05/02/01(Confirmed) 05/02/01 Active Lumbar facet [...] by Alex Putnam M.D. at [facility] 10Memantine prescribed 01/25/20. With dose escal., pn w neuropathic features over right hip decr/resolved. At 10mg bid, began to experience decr head pn [attrib. to occipital neuralgia] & decr sciatica, but felt tipsy, impaired- would not want to drive and hard to wake up in the morning. Trial abandoned 02/26/20. 11SOAPP-R: 24 on 03/31/2016 12ACE score: 0 on 11/9/17 Social History Social History Type Response Smoking Status Former smoker; Tobac co user in household: No entered on: 07/07/17 Sex Female
--- OUTSIDE RECORDS SUMMARY | 2024-06-15 11:16 | XMS_ITS | Continuity of Care Document ---
Author Organization [facility] Address [address] [place] [address]- Care Team Providers Care Squadron Worker Name Role Phone Christiano FANG, Tito England Primary Care Physician [phone] Encounter [facility] Date(s): 09/19/21 - 10/19/21 [facility] [address] [place] [address]- Allergies, Adverse Reactions, Alerts Substance Reaction Severity [...] Refills, Maintenance, 10/02/21 15:44:00 EST, EC Capsule, [facility] #[id number], Partial fill upon patient request if the prescription... Start Date: 10/02/21 Status: Ordered duloxetine 60 mg oral enteric coated capsule 1 capsule = 60 mg, By Mouth, Daily, fill when patient next requests. To be taken with 30mg cap for total 90mg daily dose, # 30 capsule, 3 Refills, Maintenance, 10/02/21 15:45:00 EST, [facility] #[id number], 163, cm, 08/27/21 9:26:00 EST, Height,... Start Date: 10/02/21 Status: Ordered hydrOXYzine hydrochloride 25 mg oral tablet 1-1.5 tablet, By Mouth, 3 times a day, PRN for anxiety, dose increase, # 60 tablet, 1 Refills, Maintenance, 10/08/21 14:51:00 EST, Tablet, [facility] #[id number], Partial fill upon patient request if the [...] Gm, 1 Refills, Maintenance, 09/17/21 13:09:00 EST, [facility] #[id number], Partial fill upon patient request if the prescription is for a schedule II opioid drug., 163, cm, 08/27/21 9:26:00 EST, Height, 63... Start Date: 09/17/21 Status: Ordered NuLYTELY with Flavor Packs oral powder for reconstitution See Instructions, Drink 240mL every 15-20 minutes until first half is gone. Repeat 6 hours prior toprocedure., # 4,000 mL, 0 Refills, Maintenance, 09/17/21 13:09:00 EST, [facility] #[id number],Partial fill upon patient request if the prescript... [...] Gm, 0 Refills, Maintenance, 09/23/21 13:03:00 EST, [facility] #[id number], Partial fill upon patient request if the [...] 08/08/21 16:04:00 EST, Route to Pharmacy Electronically, [facility] #[id number], Partial fi... Start Date: 08/08/21 Stop Date: 11/06/21 Status: Ordered topiramate 100 mg oral tablet 3 tablet = 300 mg, By Mouth, Daily at bedtime, # 84 tablet, 1 Refills, Maintenance, 08/26/21 14:05:00 EST, [facility] #[id number], 163, cm, 08/06/21 14:34:00 EST, Height, 63, [...] Refills, Soft Stop, 08/19/21 12:22:00 EST, Tablet, [facility] #[id number], Partial fill upon patient request if the [...] kne e surgery: 2006 & 2008 at [facility](Confirmed) Active Status post knee surgery, [facility] 05/02/01(Confirmed) 05/02/01 Active Lumbar facet joint [...] ( moderate disability ) on 05/26/17; updated [facility] Back Pain Disability Scale score: 18 on 05/26/17. 10Initial Oswestry Disability Index: 50% ( severe disability ) on 03/31/16; initial Neck Disability Index: 42% ( severe disability ) on 03/31/16; initial [facility] Back Pain Disability Scale score: 46 on 03/31/16. 11On 09/30/17 underwent Tenolysis, right thumb, for Right trigger thumb by Alex Putnam M.D. at [facility] 12Retrial prescribed 12/17/20. On 01/15, at [...]
[2024-06-15 11:17] VITALS: BP 142/65; PULSE 70; O2SAT 98
--- NOTE | 2024-06-15 11:17 | A.OFFVIS_ITS ---
Vital Signs 06/15/24 11:17 06/15/24 11:58 BP 142/65 H 140/63 H Blood Pressure Location Lt brachial Lt brachial Position Sitting Sitting Pulse 70 66 Pulse Source Pulse Oximeter Pulse Oximeter Pulse Oximetry (%) 98 96 Oxygen Delivery Method Room Air Room Air Intake Visit Reasons: right occipital Sprint Allergies codeine Adverse Reaction (Intermediate, Verified 06/09/24 10:15) Vomiting HPI HPI right occipital Sprint: Details: Patient presents for scheduled procedure. Denies any recent cough, cold, infection, fever or other significant changes in medical history since last office visit. [facility] Medical History (Updated 04/11/24 @ 15:01 by Gil Cortes MD) Hx of pilonidal cyst Degenerative disc disease, cervical Tinnitus of left ear Adenomyosis of uterus Bilateral breast cysts Sleep apnea Short-term memory loss Rheumatoid arthritis Osteoporosis SI (sacroiliac) joint dysfunction Hidradenitis suppurativa Occipital neuralgia Fibromyalgia HTN (hypertension) Lumbar disc disease Depression Overactive bladder Restless leg syndrome Peripheral neuropathy Surgical History History of gynecologic surgery History of surgery Hx of shoulder surgery H/O laminectomy History of carpal tunnel release of both wrists Hx of elbow surgery Hx of hysterectomy Hx of left knee surgery Hx of arthroscopy of left knee Hx of abdominal surgery H/O LEEP History of intestinal surgery Hx of appendectomy Social History Patient Tobacco Use Status: Former Tobacco user Physical Exam Vital Signs: Last Vital Signs Pulse 70 06/15/24 11:17 BP 142/65 H 06/15/24 11:17 Pulse Ox 98 06/15/24 11:17 Oxygen Delivery Method Room Air 06/15/24 11:17 Office Procedures Details: Occipital Nerve Stimulation Lead Placement, SPR (Sprint) System, Right ? After the risks, benefits and alternatives were discussed with the patient and informed consent was obtained, patient was placed in the prone position and padded to foster comfort. The skin overlying the cervical spine was prepped and draped in sterile fashion. Ultrasound was used to identify the C2 spinous process and lamina. After identifying the occipital artery and nerve, the skin around the planned entry point and the subcutaneous tissues were injected with lidocaine 1%. An introducer needle and stimulating probe were assembled, inserted and advanced under ultrasound guidance. The introducer needle was delivered to a location in proximity to the nerve. Multiple stimulation parameters were used to deliver stimulation to the occipital nerve in concert with stimulating at multiple positions around the nerve. Nerve target acquisition was confirmed noting generation of paresthesias in the high cervical and occipital regions corresponding to the nerve being stimulated. Various electrical parameter combinations were tested, and the lead location was adjusted (physically relocated) until the patient indicated paresthesia/muscle tension overlapping the occipital region. The stimulating probe was removed from the introducer and a percutaneous lead was guided through the needle and delivered to a location in similar proximity to the nerve. Final location was verified with electrical stimulation and documented with ultrasound. The introducer needle was removed, and the exposed end of the percutaneous lead was attached to an external stimulator unit. Various electrical parameter combinations were again tested until the patient indicated paresthesia or muscle tension in the occipital region. After confirming that lead impedance was in the normal range, the external unit was detached, the needle was removed, and the lead was anchored at the skin. The lead was threaded into the connector block and electrical continuity and desired patient response was confirmed. The connector block was attached to the external stimulator unit. The site was covered with a sterile occlusive pressure dressing. The patient was observed for stability of vital signs and comfort. Patient was dischared in stable condition. Sprint PNS Device: Sprint PNS Device [id number] Percutaneous Peripheral Neuroelectrode Procedure: 52839 - Percutaneous Peripheral Neuroelectrode Procedure code (CPT) selection complete Office Meds lidocaine HCl 10 mg/mL (1 %) injection solution Performing Provider: Latia Morton APRN, LACI [place] [facility] Administered by: Natalie Frazier LPN on 06/15/24 11:36 Dose Route Admin Location Dispensed Lot Number Expiration Date [facility] Sofa Inspector 5 mL subcut 5 mL Assessment & Plan Assessment & Plan (1) Occipital neuralgia: Code(s): M54.81 - Occipital neuralgia Category: Medical Plan Patient is status post temporary right occipital nerve stimulator placement. Patient tolerated procedure well and was discharged home in stable condition with discharge instructions. All questions were answered. We will follow-up via telephone or in clinic to assess response to therapy. A follow-up appointment was made during today's visit. Orders: Orders AMB Sprint PNS Today M54.81 - Occipital neuralgia FL guidance in treatment room Today M54.81 - Occipital neuralgia Coding Level of Care Code Procedure Only Diagnoses Occipital neuralgia M54.81 CPT Codes Sprint PNS - Sprint PNS Device: Sprint PNS Device ([id number]) Sprint PNS - SPRINT: 38460 - Percutaneous Peripheral Neuroelectrode ([id number]) Implantable Device Implantable Device Implantable Devices Qty Sofa Inspector Implant Date Expiration Date Analgesic PENS system 1 [employer] 06/15/24 05/28/25 KIT NEUROSTIM TRIAL LEAD 1 02/02/24 10/21/25 NEUROSTIMULATOR IMPLEMENT MECHANIC KIT 1 02/16/24 10/21/25 NEUROSTIMULATOR TRIAL KIT 1 02/02/24 09/23/25
--- OUTSIDE RECORDS SUMMARY | 2024-06-15 11:17 | XMS_ITS | Continuity of Care Document ---
Author Organization [facility] Address [address] [place] [address]- Care Team Providers Care Artist Relationship Manager Name Role Phone Tito Alvarado MD Primary Care Physician En[place] [facility] [place] Date(s): 10/12/22 - 11/11/22 [facility] [address] [place] [address]- Attending Physician: Margaret Vargas Admitting Physician: AdmtrMargaret Referring Physician: Admtr, Ar8 Allergies, Adverse Reactions, Alerts Substance Reaction Severity Status codeine nausea Active iodinated radiocontrast dyes N/V Active Immunizations Given and Recorded Vaccine Date Status Refusal Reason influenza virus vaccine, inactivated 1 06/02/22 Gi laurie influenza virus vaccine, inactivated 06/05/18 Mars rded influenza virus vaccine, inactivated 06/17/17 Mars rded [id number] 12y+ bivalent booster vax 03/27/22 Recorded SARS-CoV-2 (COVID-19) mRNA BNT-162b2 vac 08/21/21 Recorded SARS-CoV-2 (COVID-19) Ad26 vaccine 12/02/20 Given Influenza Virus Vaccine (oldterm) 07/13/20 Recorde d zoster vaccine, inactivated 11/20/18 Recorded zoster vaccine, inactivated 09/17/18 Recorded tetanus/diphtheria/pertussis, acel(Tdap) 06/05/18 Recorded 1Result Comment: [facility]:[id number] Medications AutoASV EPAPmin 8 EPAPmax 12 PSmin [...] tablet, 2 Refills, Maintenance, 10/30/22 15:04:00 EST, [facility] #[id number], 157.5, cm, 08/07/22 10:53:00 EST, Height, 87, kg, 10/14/22 11:44:00 EST, Dry Weight Start Date: 10/30/22 Status: Ordered buPROPion 150 mg/12 hours (SR) oral tablet, extended release 1 tablet = 150 mg, By Mouth, 2 times a day, dose increase, # 60 tablet, 3 Refills, Maintenance, 11/10/22 10:38:00 EDT, ER Tablet, [facility] #[id number], Partial fill upon patient request if theprescription [...] 30 capsule, 5 Refills, 08/14/22 12:55:00 EST, [facility] #[id number], 157.5, cm, 08/07/22 10:53:00 EST, Height, 82.8, kg, 08/07/22 10:17:00 EST, Dry Weight Start Date: 08/14/22 Status: Ordered duloxetine 60 mg oral enteric coated capsule 1 capsule = 60 mg, By Mouth, Daily, take with 30mg capsule for total 90mg daily, # 30 capsule, 5 Refills, Maintenance, 03/09/22 11:52:00 EDT, [facility] #[id number], 157.5, cm, 02/09/22 19:12:00EDT, Height, 77, kg, 01/13/22 9:51:00 EDT, Dry Weight Start Date: 03/09/22 Status: Ordered ferrous sulfate 325 mg oral enteric coated tablet 1, tablet, By Mouth, Daily, # 30 tablet, Refills 1, Maintenance, 05/06/22 11:08:00 EDT, Route to Pharmacy Electronically, [facility] #[id number], 157.5, cm, 05/01/22 9:45:00 EDT, Height, 83.4, kg, 05/01/22 9:11:00 EDT, Dry Weight Start Date: 05/06/22 Status: Ordered hydrOXYzine hydrochloride 25 mg oral tablet 1 TO 1 AND 1/2 TABLETS, By Mouth, 3 times a day, PRN NEEDED FOR ANXIETY, # 60 tablet, 2 Refills,Maintenance, 10/05/22 20:26:00 EST, [facility] #[id number], 157.5, cm, 08/07/22 10:53:00 EST, Height, 82.8, kg, 08/07/22 10:17:00 EST, Dry Weight Start Date: 10/05/22 Status: Ordered ipratropium nasal 21 mcg/inh spray See Instructions, PRN Nasal Congestion, 1 spray each nostril BID, # 1 each, 4 Refills, Maintenance,06/04/22 11:24:00 EDT, [facility] #[id number], Partial fill upon patient request if the [...] Refills, Maintenance, 09/02/22 23:37:00 EST, CR Tablet, [facility] #[id number], Partial fill upon patient request if the [...] tablet, 3 Refills, Maintenance, 10/12/22 18:54:00 EST, [facility] #[id number], 157.5, cm, 08/07/22 10:53:00 EST, Height, 82.8, [...] Active Status post knee surgery, [facility] 05/02/01 Confirmed 05/02/01 Active Hypertension [...] on 03/31/2016 11ACE score: 0 on 07/01/17 Vital Signs Most recent to oldest [Reference Range]: 1 Dry Weight 74 kg (07/31/15 3:41 PM) Social History Social History Type Response Smoking Status Former smoker; Stopp ed at age: 50; entered on: 03/11/17 Sex Female Note * Event Display: Non BH Lab Results Authored Date: Patient Care team information Care Team Personnel Name: Sandyha Tsai MD, Cj Reyna Position: [facility] Anesthesiology MD Member Role: Lifetime Consulting Physician Address: Address: [address] [place] [address] [place] [address]- Name: Tito Alvarado MD Position: [facility] Primary Care Physician Member Role: PCP Address: Address: [address] [place] [address] Adult & [place] [address]- Care Team Related Persons Name: BRAYAN VELAZCO Address: [address] [place] [address] Name: ABDON VELAZCO Name: NOEL LIZAMA Address: [address] [place] [address] Name: FADY NIELSON Address: [address] [place] [address]
--- OUTSIDE RECORDS SUMMARY | 2024-06-15 11:17 | XMS_ITS | Continuity of Care Document ---
Author Organization [facility] Address [address] [place] [address]- Care Team Providers Care Well Drill Operator Name Role Phone Christiano FANG, Tito England Primary Care Physician Encounter [facility] Date(s): 04/24/22 - 05/24/22 [facility] [address] [place], [place] [address] Allergies, Adverse Reactions, Alerts Substance [...] capsule, 5 Refills, Maintenance, 03/09/22 11:52:00 EDT, [facility] #[id number], 157.5, cm, 02/09/22 19:12:00EDT, Height, 77, kg, 01/13/22 9:51:00 EDT, Dry Weight Start Date: 03/09/22 Status: Ordered ferrous sulfate 325 mg oral enteric coated tablet 1, tablet, By Mouth, Daily, # 30 tablet, Refills 1, Maintenance, 05/06/22 11:08:00 EDT, Route to Pharmacy Electronically, [facility] #[id number], 157.5, cm, 05/01/22 9:45:00 EDT, Height, 83.4, [...] 60 tablet, 2 Refills,Maintenance, 05/06/22 11:08:00 EDT, [facility] #[id number], 157.5, cm, 05/01/22 9:45:00 EDT, Height, 83.4, [...] a day, # 60 tablet, 3 Refills, [facility] #[id number], 157.5, cm, 03/26/22 13:17:00 EDT, Height, 77, [...] arthroscopic knee surgery: 2006 & 2009 at [facility] Confirmed Active Status post knee surgery, [facility] 05/02/01 Confirmed 05/02/01 Active [...] moderate disability ) on 05/26/17; updated [facility] Back Pain Disability Scale score: 18 on 05/26/17. 10Initial Oswestry Disability Index: 50% ( severe disability ) on 03/31/16; initial Neck Disability Index: 42% ( severe disability ) on 03/31/16; initial [facility] Back Pain Disability Scale score: 46 on 03/31/16. 11On 09/30/17 underwent Tenolysis, right thumb, for Right trigger thumb by Alex Putnam M.D. at [facility] 12Retrial prescribed 12/17/20. On 01/15, at [...] Name: Christiano FANG, Tito England Address: Address: [address] [place] [address] Adult & Pediatric Medicine [place], [place] [address]
--- OUTSIDE RECORDS SUMMARY | 2024-06-15 11:17 | XMS_ITS | Continuity of Care Document ---
Author Organization [facility] Address [address] [place] [address]- Care Team Providers Care Wind Farm Operations Manager Name Role Phone Tammie FANG, Jo-Ann Primary Care Physician [phone] Encounter [facility] [place] Date(s): 02/06/20 - 03/07/20 [facility] [address] [place] [address]- [facility] Attending Physician: AdmMargaret jolley Admitting Physician: AdmtrMargaret Referring Physician: Admtr, [id number] [...] tablet, 0 Refills, Maintenance, 01/17/20 12:44:00 EDT, [facility] #[id number], DX: F90.0. Also, please refill diazepam 2mg. [...] 02/27/20 12:28:00 EDT, Route to Pharmacy Electronically, [facility] #[id number], 163, cm, 02/27/20 7:51:00 EDT, Height, 64.2, kg, 02/21... Start Date: 02/27/20 Status: Ordered DULoxetine 40 mg oral delayed release capsule 1 capsule = 40 mg, By Mouth, Daily, To be taken with 60mg capsule to equal 100mg/day., # 28 capsule, 5 Refills, Maintenance, 02/12/20 10:25:00 EDT, [facility] #[id number], 163, cm, 01/25/20 7:56:00 EDT, Height, 64.2, kg, 03/18/19 12:29:00 EDT, [facility] Start Date: 02/12/20 Status: Ordered duloxetine 60 mg oral enteric coated capsule 1 capsule, By Mouth, Daily, TO BE TAKEN WITH 40 MG CAPSULE FOR TOTAL DAILY DOSE OF 100MG, # 28 capsule, 5 Refills, Maintenance, 02/12/20 10:25:00 EDT, [facility] #[id number], 163, cm, 01/25/20 7:56:00 EDT, Height, 64.2, [...] tablet, 0 Refills, Maintenance, 01/25/20 9:25:00 EDT, [facility] #[id number], 163, cm, 01/25/20 7:56:00 EDT, Height, 64.2, kg, 03/18/19 1... Start Date: 01/25/20 Status: Ordered Misc Rx Refills 0, Maintenance, Calcim 500 mg and Magnesium 600 mg, 08/08/19 8:31:47 EST, [facility] Start Date: 08/08/19 Status: Ordered Plaza 325 mg-10 mg oral tablet 1 - 1.5 tablets, By Mouth, Every 4 hours, PRN pain.max of 6 tabs/day., # 84 tablet, 0 Refills, Maintenance, 01/25/20 9:25:00 EDT, [facility] #[id number], Partial fill upon pt request. DX: M54.81, M54.5, M54.17, 1 - 1.5 tablets By Mouth Every 4 ho... Start Date: 01/25/20 Status: Ordered topiramate 100 mg oral tablet 3 tablets, By Mouth, Daily at bedtime, # 84 tablet, 5 Refills, Maintenance, 08/08/19 12:18:42 EST, [facility] #[id number], 163, cm, 08/08/19 8:04:18 EST, Height, 64.2, [...] [facility]) Active Status post [facility], [facility] [...] trigger thumb by Alex Putnam M.D. at [facility] 8Memantine prescribed 01/25/20. With dose escal., [...]
--- OUTSIDE RECORDS SUMMARY | 2024-06-15 11:17 | XMS_ITS | Continuity of Care Document ---
Author Organization [facility] Address [address] [place] [address]- Care Team Providers Care Poultry Picking Machine Tender Name Role Phone Christiano FANG, Tito England Primary Care Physician [place] [facility] [place]/05/[place] - 09/04/22 [facility] [address] [place], [place] [address] Allergies, Adverse Reactions, Alerts Substance Reaction Severity Status codeine nausea Active iodinated radiocontrast dyes N/V Active Immunizations Given and Recorded Vaccine Date Status Refusal Reason influenza virus vaccine, inactivated 1 06/02/22 Gi laurie influenza virus vaccine, inactivated 06/05/18 Mars rded influenza virus vaccine, inactivated 06/17/17 Mars rded [id number] 12y+ bivalent booster vax 03/27/22 Recorded SARS-CoV-2 (COVID-19) mRNA BNT-162b2 vac 08/21/21 Recorded SARS-CoV-2 (COVID-19) Ad26 vaccine 12/02/20 Given Influenza Virus Vaccine (oldterm) 07/13/20 Recorde d zoster vaccine, inactivated 11/20/18 Recorded zoster vaccine, inactivated 09/17/18 Recorded tetanus/diphtheria/pertussis, acel(Tdap) 06/05/18 Recorded 1Result Comment: [facility]:[id number] Medications Aerochamber w/Mask (Large) See Instructions, # [...] 10:38:00 EST, Aerosol, Route to Pharmacy Electronically, [id number], [facility] #[id number], 1... Start Date: 08/07/22 Status: Ordered AutoASV [...] Refills, Maintenance, 06/23/22 14:08:00 EDT, ER Tablet, [facility] #[id number], Partial fillupon patient request if the prescription [...] 30 capsule, 5 Refills, 08/14/22 12:55:00 EST, [facility] #[id number], 157.5, cm, 08/07/22 10:53:00 EST, Height, 82.8, kg, 08/07/22 10:17:00 EST, Dry Weight Start Date: 08/14/22 Status: Ordered duloxetine 60 mg oral enteric coated capsule 1 capsule = 60 mg, By Mouth, Daily, take with 30mg capsule for total 90mg daily, # 30 capsule, 5 Refills, Maintenance, 03/09/22 11:52:00 EDT, [facility] #[id number], 157.5, cm, 02/09/22 19:12:00EDT, Height, 77, kg, 01/13/22 9:51:00 EDT, Dry Weight Start Date: 03/09/22 Status: Ordered ferrous sulfate 325 mg oral enteric coated tablet 1, tablet, By Mouth, Daily, # 30 tablet, Refills 1, Maintenance, 05/06/22 11:08:00 EDT, Route to Pharmacy Electronically, [facility] #[id number], 157.5, cm, 05/01/22 9:45:00 EDT, Height, 83.4, kg, 05/01/22 9:11:00 EDT, Dry Weight Start Date: 05/06/22 Status: Ordered Flovent HFA 110 mcg/inh inhalation aerosol 1 puffs, Inhalation, 2 times a day, rinse mouth and throat after use, # 1 each, 2 Refills, Maintenance, 08/07/22 10:36:00 EST, Aerosol, [facility] #[id number], Partial fill upon patient request if the [...] 60 tablet, 2 Refills,Maintenance, 05/06/22 11:08:00 EDT, [facility] #[id number], 157.5, cm, 05/01/22 9:45:00 EDT, Height, 83.4, kg, 05/01/22 9:11:00 EDT, Dry Weight Start Date: 05/06/22 Status: Ordered ipratropium nasal 21 mcg/inh spray See Instructions, PRN Nasal Congestion, 1 spray each nostril BID, # 1 each, 4 Refills, Maintenance,06/04/22 11:24:00 EDT, [facility] #[id number], Partial fill upon patient request if the [...] Refills, Maintenance, 09/02/22 23:37:00 EST, CR Tablet, [facility] #[id number], Partial fill upon patient request if the [...] 90 tablet, 3 Refills, 06/23/22 14:01:00 EDT, [facility] #[id number], 157.5, cm, 06/23/22 13:25:00 EDT, Height, 81.3, [...] knee surgery: 2006 & [address] [facility] Confirmed Active Status post knee surgery, [facility] 05/02/01 Confirmed 05/02/01 Active Lumbar [...] Name: Sandhya Tsai MD, Cj Reyna Position: [facility] Anesthesiology MD Member Role: Lifetime Consulting Physician Address: Address: [address] [place] [address] [place] [address]- Name: Christiano FANG, Tito England Position: [facility] Primary Care Physician Member Role: PCP Address: Address: [address] [place] [address] Adult & [place] [address]- Care Team Related Persons Name: BRAYAN VELAZCO Address: home [address] [place] [address] Name: NOEL LIZAMA Address: home [address] [place] [address] Name: FADY NIELSON Address: [address] [place] [address]
--- OUTSIDE RECORDS SUMMARY | 2024-06-15 11:17 | XMS_ITS | Continuity of Care Document ---
Author Organization [facility] Address [address] [place] [address]- Care Team Providers Care X Ray Developer Name Role Phone Christiano FANG, Tito England Primary Care Physician Encounter [facility] Date(s): 09/21/22 - 10/21/22 [facility] [address] [place] [address]- Allergies, Adverse Reactions, Alerts Substance Reaction Severity Status codeine nausea Active iodinated radiocontrast dyes N/V Active Immunizations Given and Recorded Vaccine Date Status Refusal Reason influenza virus vaccine, inactivated 1 06/02/22 Gi laurie influenza virus vaccine, inactivated 06/05/18 Mars rded influenza virus vaccine, inactivated 06/17/17 Mars rded [id number] 12y+ bivalent booster vax 03/27/22 Recorded SARS-CoV-2 (COVID-19) mRNA BNT-162b2 vac 08/21/21 Recorded SARS-CoV-2 (COVID-19) Ad26 vaccine 12/02/20 Given Influenza Virus Vaccine (oldterm) 07/13/20 Recorde d zoster vaccine, inactivated 11/20/18 Recorded zoster vaccine, inactivated 09/17/18 Recorded tetanus/diphtheria/pertussis, acel(Tdap) 06/05/18 Recorded 1Result Comment: [facility]:[id number] Medications AutoASV EPAPmin 8 EPAPmax 12 PSmin [...] Refills, Maintenance, 06/23/22 14:08:00 EDT, ER Tablet, [facility] #[id number], Partial fillupon patient request if the prescription [...] 30 capsule, 5 Refills, 08/14/22 12:55:00 EST, [facility] #[id number], 157.5, cm, 08/07/22 10:53:00 EST, Height, 82.8, kg, 08/07/22 10:17:00 EST, Dry Weight Start Date: 08/14/22 Status: Ordered duloxetine 60 mg oral enteric coated capsule 1 capsule = 60 mg, By Mouth, Daily, take with 30mg capsule for total 90mg daily, # 30 capsule, 5 Refills, Maintenance, 03/09/22 11:52:00 EDT, [facility] #[id number], 157.5, cm, 02/09/22 19:12:00EDT, Height, 77, kg, 01/13/22 9:51:00 EDT, Dry Weight Start Date: 03/09/22 Status: Ordered ferrous sulfate 325 mg oral enteric coated tablet 1, tablet, By Mouth, Daily, # 30 tablet, Refills 1, Maintenance, 05/06/22 11:08:00 EDT, Route to Pharmacy Electronically, [facility] #[id number], 157.5, cm, 05/01/22 9:45:00 EDT, Height, 83.4, kg, 05/01/22 9:11:00 EDT, Dry Weight Start Date: 05/06/22 Status: Ordered hydrOXYzine hydrochloride 25 mg oral tablet 1 TO 1 AND 1/2 TABLETS, By Mouth, 3 times a day, PRN NEEDED FOR ANXIETY, # 60 tablet, 2 Refills,Maintenance, 10/05/22 20:26:00 EST, [facility] #[id number], 157.5, cm, 08/07/22 10:53:00 EST, Height, 82.8, kg, 08/07/22 10:17:00 EST, Dry Weight Start Date: 10/05/22 Status: Ordered ipratropium nasal 21 mcg/inh spray See Instructions, PRN Nasal Congestion, 1 spray each nostril BID, # 1 each, 4 Refills, Maintenance,06/04/22 11:24:00 EDT, [facility] #[id number], Partial fill upon patient request if the [...] Refills, Maintenance, 09/02/22 23:37:00 EST, CR Tablet, [facility] #[id number], Partial fill upon patient request if the [...] tablet, 3 Refills, Maintenance, 10/12/22 18:54:00 EST, [facility] #[id number], 157.5, cm, 08/07/22 10:53:00 EST, Height, 82.8, [...] knee surgery: 2006 & 2008 at [facility] Confirmed Active Status post knee surgery, [facility] 05/02/01 Confirmed 05/02/01 Active Lumbar facet [...] trigger thumb by Alex Putnam M.D. at [facility] 7Retrial prescribed 12/17/20. On 01/15, at 10mg [...] Name: Sandhya Tsai MD, Cj Reyna Position: [facility] Anesthesiology MD Member Role: Lifetime Consulting Physician Address: Address: [address] [place] [address] [place] [address]- Name: Tito Alvarado MD Position: [facility] Primary Care Physician Member Role: PCP Address: Address: [address] [place] [address] Adult & [place] [address]- Care Team Related Persons Name: BRAYAN VELAZCO Address: [address] [place] [address] Name: NOEL LIZAMA Address: [address] [place] [address] Name: FADY NIELSON Address: [address] [place] [address]
--- OUTSIDE RECORDS SUMMARY | 2024-06-15 11:17 | XMS_ITS | Continuity of Care Document ---
Author Organization [facility] Address [address] [place] [address]- Care Team Providers Care Corrections Officer Name Role Phone Tito Alvarado MD Primary Care Physician [place] [facility] [place] 11/10/22 - 11/17/22 [facility] [address] [place] [address]- Encounter Diagnosis Sweating profusely(Discharge Diagnosis) - 11/11/22 Hypertension(Discharge Diagnosis) - 11/11/22 Severe episode of recurrent major depressive disorder, without psychotic features(Discharge Diagnosis) - 11/11/22 Occipital neuralgia, right (lesser occipital nerve) >>left(Discharge Diagnosis) - 11/11/22 Obese class I(Discharge Diagnosis) - 11/11/22 Attending Physician: Tito Alvarado MD Allergies, Adverse Reactions, Alerts Substance Reaction Severity Status codeine nausea Active iodinated radiocontrast dyes N/V Active Immunizations Given and Recorded Vaccine Date Status Refusal Reason influenza virus vaccine, inactivated 1 06/02/22 Gi laurie influenza virus vaccine, inactivated 06/05/18 Mars rded influenza virus vaccine, inactivated 06/17/17 Mars rded [id number] 12y+ bivalent booster vax 03/27/22 Recorded SARS-CoV-2 (COVID-19) mRNA BNT-162b2 vac 08/21/21 Recorded SARS-CoV-2 (COVID-19) Ad26 vaccine 12/02/20 Given Influenza Virus Vaccine (oldterm) 07/13/20 Recorde d zoster vaccine, inactivated 11/20/18 Recorded zoster vaccine, inactivated 09/17/18 Recorded tetanus/diphtheria/pertussis, acel(Tdap) 06/05/18 Recorded 1Result Comment: ndc:[id number] Medications AutoASV EPAPmin 8 EPAPmax 12 PSmin [...] tablet, 2 Refills, Maintenance, 10/30/22 15:04:00 EST, [facility] #[id number], 157.5, cm, 08/07/22 10:53:00 EST, Height, 87, kg, 10/14/22 11:44:00 EST, Dry Weight Start Date: 10/30/22 Status: Ordered buPROPion 150 mg/12 hours (SR) oral tablet, extended release 1 tablet = 150 mg, By Mouth, 2 times a day, dose increase, # 60 tablet, 3 Refills, Maintenance, 11/10/22 10:38:00 EDT, ER Tablet, [facility] #[id number], Partial fill upon patient request if theprescription [...] 30 capsule, 5 Refills, 08/14/22 12:55:00 EST, [facility] #[id number], 157.5, cm, 08/07/22 10:53:00 EST, Height, 82.8, kg, 08/07/22 10:17:00 EST, Dry Weight Start Date: 08/14/22 Status: Ordered duloxetine 60 mg oral enteric coated capsule 1 capsule = 60 mg, By Mouth, Daily, take with 30mg capsule for total 90mg daily, # 30 capsule, 5 Refills, Maintenance, 03/09/22 11:52:00 EDT, [facility] #[id number], 157.5, cm, 02/09/22 19:12:00EDT, Height, 77, kg, 01/13/22 9:51:00 EDT, Dry Weight Start Date: 03/09/22 Status: Ordered ferrous sulfate 325 mg oral enteric coated tablet 1, tablet, By Mouth, Daily, # 30 tablet, Refills 1, Maintenance, 05/06/22 11:08:00 EDT, Route to Pharmacy Electronically, [facility] #[id number], 157.5, cm, 05/01/22 9:45:00 EDT, Height, 83.4, kg, 05/01/22 9:11:00 EDT, Dry Weight Start Date: 05/06/22 Status: Ordered hydrOXYzine hydrochloride 25 mg oral tablet 1 TO 1 AND 1/2 TABLETS, By Mouth, 3 times a day, PRN NEEDED FOR ANXIETY, # 60 tablet, 2 Refills,Maintenance, 10/05/22 20:26:00 EST, [facility] #[id number], 157.5, cm, 08/07/22 10:53:00 EST, Height, 82.8, kg, 08/07/22 10:17:00 EST, Dry Weight Start Date: 10/05/22 Status: Ordered ipratropium nasal 21 mcg/inh spray See Instructions, PRN Nasal Congestion, 1 spray each nostril BID, # 1 each, 4 Refills, Maintenance,06/04/22 11:24:00 EDT, [facility] #[id number], Partial fill upon patient request if the [...] Refills, Maintenance, 09/02/22 23:37:00 EST, CR Tablet, [facility] #[id number], Partial fill upon patient request if the [...] tablet, 3 Refills, Maintenance, 10/12/22 18:54:00 EST, [facility] #[id number], 157.5, cm, 08/07/22 10:53:00 EST, Height, 82.8, [...] knee surgery: 2006 & 2008 at [facility] Confirmed Active Status post knee surgery, [facility] 05/02/01 Confirmed 05/02/01 Active Hypertension Confirmed [...] trigger thumb by Alex Putnam M.D. at [facility] 7Retrial prescribed 12/17/20. On 01/15, at 10mg [...] Effective Dates Health Status Clinical Service Informant Sweating profusely Discharge Diagnosis 3/22/23 Hypertension Discharge Diagnosis 11/11/22 Severe episode of recurrent major depressive disorder, without psychotic features Discharge Diagnosis 11/11/22 Occipital neuralgia, right (lesser occipital nerve) >>left Discharge Diagnosis 11/11/22 Obese class I Discharge Diagnosis 11/11/22 Vital Signs Most recent to oldest [Reference Range]: 1 2 Height 157.5 cm (11/10/22 10:28 AM) 157.5 cm (11/10/22 10:21 AM) Weight 85 kg (11/10/22 10:21 AM) Oxygen Saturation [94-100 %] 99 % (11/10/22 10:28 AM) 100 % (11/10/22 10: AM) Pulse Rate [55-90 bpm] 91 bpm *H* (11/10/22 10:28 AM) 91 bpm *H* (11/10/22 10:21 AM) Body Mass Index [18.5-24.99 kg/m2] 34.27 kg/m2 *>HHI* (11/10/22 10:21 AM) Blood Pressure [90-138/55-84 mm Hg] 152/ 92mm Hg *H* (11/10/22 10:28 AM) 142/91mm Hg *H* (11/10/22 10:21 AM) Temperature [96.8-100.4 DegF] 97.5 DegF (11/10/22 10:21 AM) Mode of Delivery (Oxygen) Room air (11/10/22 10:28 AM) Room air (11/10/22 10:21 AM) Blood pressure sites Arm, right (11/10/22 10:28 AM) Arm, right (11/10/22 10:21 AM) Temperature Route Temporal (11/10/22 10:21 AM) Dry Weight 85 kg (11/10/22 10:21 AM) Weight Obtained Via Standing scale (11/10/22 10:21 AM) Social History Social History Type Response Smoking Status Former smoker; Stopp ed at age: 50; entered on: 03/11/17 Sex Female Note * Sanaz Mi: PERFORM, SIGN, VERIFY Event Display: Patient Education/Instruction Authored Date: [id number] [facility] *[facility] Clinical Summary Name FAUSTO VELAZCO Age 56 Years 1965 PCP Tito Alvarado MD PCP Visit Date 11/10/2022 10:16:00 Additional Instructions: Scheduled Appointments?? Future Appointments ?*[facility] ?[address]??[place],??[place],??[address] ?Phone:??--?Fax:??-- ?Appt. Date:??12/07/2022?11:00 AM ?Scheduled Provider:??Tito Alvarado MD Follow-Up Instructions ?? Diagnosis Encounter for general adult medical examination without abnormal findings Medications: Please continue your medications until treatment is completed or stopped by your provider. Discuss any questions related to medications with your provider. Medications to Continue Taking That Have Changed [facility] #[id number], [address] [place], [place] [id number], [phone] - BuPROpion (buPROPion 150 mg/12 hours (SR) oral tablet, extended release) 1 tab(s) Oral twice a day. dose increase. Refills: 3. Next Dose: These medications were not printed or sent to your pharmacy - BuPROpion (buPROPion 100 mg/12 hours (SR) oral tablet, extended release) 1 tab(s) Oral twice a day. Refills: 2. Next Dose: Medications to Continue with No Changes These medications were not printed or sent to your pharmacy Calcium And Vitamin D Combination (Calcium 600 +D) 1 tab(s) Oral Daily at Bedtime. Next Dose: Cannabis (Schedule I Substance) 2 puff(s) Inhalation every 2 hours as needed as needed for pain. Next Dose: Cholecalciferol (Vitamin D3 1000 intl units oral tablet) 1 tab(s) Oral Daily at Bedtime. Next Dose: Duloxetine (duloxetine 30 mg oral enteric coated capsule) 1 capsule Oral Daily. Refills: 5. Next Dose: Duloxetine (duloxetine 60 mg oral enteric coated capsule) 1 capsule Oral Daily. take with 30mg capsule for total 90mg daily. Refills: 5. Next Dose: Durable Medical Equipment (AutoASV EPAPmin 8 EPAPmax 12 PSmin 3 PSmax 15 with heated humidification) use overnight and naps from [employer]. Refills: 0. Next Dose: Ferrous Sulfate (ferrous [...] needed Nasal Congestion. Refills: 4. Next Dose: Magnesium Oxide (magnesium oxide 500 mg oral tablet) 1 tab(s) Oral Daily at Bedtime. Next Dose: Meloxicam (meloxicam 15 mg oral tablet) 1 tab(s) Oral Daily. Next Dose: mirabegron (Myrbetriq 25 mg oral tablet, extended release) 1 tab(s) Oral Daily at Bedtime. Next Dose: Omeprazole (omeprazole 20 mg oral delayed release tablet) 1 tab(s) Oral Daily. Refills: 1. Next Dose: Oxycodone (oxyCODONE 5 mg oral tablet) 1 tab(s) Oral every 4 hours. Next Dose: Pramipexole (pramipexole 0.125 mg oral tablet) 3 tab(s) Oral Daily at Bedtime. Refills: 3. Next Dose: Solifenacin (VESIcare 10 mg oral tablet) 1 tab(s) Oral Daily at Bedtime. Rx by Dr Darleen Garcia (urology). Next Dose: Allergy Info:?? iodinated radiocontrast dyes; codeine Medications Given This Visit Future Orders ?Lipid Panel? Order Date:11/10/22?- Complete on or after?11/10/22 ?MM Digital Mammo Screening? Order Date:02/17/23?- Complete by?03/10/23 Vital Signs Height 157.5 cm Weight 85 kg BMI 34.27 kg/m2 Blood Pressure 152 mm Hg/92 mm Hg Temperature 97.5 DegF Pulse Rate 91 bpm Respiratory Rate 02 Sat Mode of Delivery 99 %/Room air You can now view a summary of your hospital visit from the comfort of your home through a free online portal called [employer]. [employer] is a website that allows you to securely view your medical information including discharge summary, medications and follow-up visits. ??You can alsosend a secure electronic message to your doctor???s office to request appointments, renew medications or just ask a question. You can enroll at [email or web address] or register during your next office visit. [...] primary care provider, you may find a [facility] provider by calling [facility] at [phone]. For information about the plan of care [...] This is to help prevent constipation. ?? 9816-0681 [employer]. [address] [place] [address], [place] [address]. All rights reserved. This information is not [...] time for those born between 1943 and 1962 At routine exams High cholesterol or triglycerides [...] group Every exam 1American [employer] Society ?? 8214-9293 [employer]. [address] [place] [address]. All rights reserved. This information is not intended as a substitute for professional medical care. Always follow your healthcare professional's instructions. Patient Care team information Care Team Personnel Name: Cj Arthur Jr, MD Position: [facility] Anesthesiology MD Member Role: Lifetime Consulting Physician Address: Address: [address] [place] [address] [place] [address]- Name: Tito Alvarado MD Position: [facility] Primary Care Physician Member Role: PCP Address: Address: [address] [place] [address] Adult & Pediatric Medicine [place], [place] [address] Care Team Related Persons Name: BRAYAN VELAZCO Address: [address] [place] [address] Name: ABDON VELAZCO Name: NOEL LIZAMA Address: [address] [place] [address] Name: FADY NIELSON Address: [address] [place] [address]
--- OUTSIDE RECORDS SUMMARY | 2024-06-15 11:17 | XMS_ITS | Continuity of Care Document ---
Author Organization [facility] Address [address] [place] [address]- Care Team Providers Care Casting Technician Name Role Phone Tito Alvarado MD Primary Care Physician [place] [facility] [place] 08[place]02/21 [facility] [address] [place] [address]- Allergies, Adverse Reactions, Alerts Substance Reaction Severity [...] capsule, 3 Refills, Maintenance, 07/14/21 9:37:00 EST, [facility] #[id number], 163, cm, 07/02/21 14:28:00 EST, Height Start [...] tablet, 1 Refills, Maintenance, 07/03/21 10:52:00 EST, [facility] #[id number], 163, cm, 07/02/21 14:28:00 EST, Height Start [...] kne e surgery: 2006 & 2008 at [facility](Confirmed) Active Status post knee surgery, [facility] 05/02/01(Confirmed) 05/02/01 Active Lumbar facet joint [...]
--- OUTSIDE RECORDS SUMMARY | 2024-06-15 11:17 | XMS_ITS | Continuity of Care Document ---
Author Organization [facility] Address [address] [place] [address], [address] [place] [address]- Care Team Providers Care Ethylbenzene Converter Operator Name Role Phone Christiano FANG, Tito England Primary Care Physician [phone] [place] [facility] [place](s[place] 11/17/21 - 12/17/[address], [address] [place], [place] [address] Attending Physician: Admtr, Ar8 Admitting Physician: Admtr, Ar8 Referring Physician: Admtr, Ar8 Allergies, Adverse Reactions, [...] 12/12/21 11:12:00 EDT, Route to Pharmacy Electronically, [facility] #[id number], Partial fill upon patient request if the [...] Refills, Maintenance, 10/02/21 15:44:00 EST, EC Capsule, [facility] #[id number], Partial fill upon patient request if the prescription... Start Date: 10/02/21 Status: Ordered duloxetine 60 mg oral enteric coated capsule 1 capsule = 60 mg, By Mouth, Daily, fill when patient next requests. To be taken with 30mg cap for total 90mg daily dose, # 30 capsule, 3 Refills, Maintenance, 10/02/21 15:45:00 EST, [facility] #[id number], 163, cm, 08/27/21 9:26:00 EST, Height,... Start Date: 10/02/21 Status: Ordered ferrous sulfate 325 mg oral enteric coated tablet 325 mg, 1, tablet, By Mouth, Daily, # 30 tablet, Refills 2, Tot. Refills 2, Maintenance, 12/05/21 11:39:00 EDT, Route to Pharmacy Electronically, [facility] #[id number], Partial fill upon patient request if the prescription is for a schedule II o... Start Date: 12/05/21 Status: Ordered hydrOXYzine hydrochloride 25 mg oral tablet 1-1.5 tablet, By Mouth, 3 times a day, PRN for anxiety, dose increase, # 60 tablet, 1 Refills, Maintenance, 10/08/21 14:51:00 EST, Tablet, [facility] #[id number], Partial fill upon patient request if the [...] 11/25/21 18:16:00 EDT, Route to Pharmacy Electronically, [facility] #[id number], Partial fill upon patient request if the prescriptio... Start Date: 11/25/21 Status: Ordered Paxlovid 150 mg-100 mg oral tablet See Instructions, nirmatrelvir 2 tabs PO and ritonavir 1 tab PO BID for 5 days, # 30 tablet, 0 Refills, Maintenance, 12/15/21 9:13:00 EDT, [facility] #[id number], Partial fill upon patient request if the [...] tablet, 1 Refills,Maintenance, 12/05/21 11:52:00 EDT, Tablet, [facility] #[id number], Partial fill upon patient request if the prescription is for a schedule II opi... Start Date: 12/05/21 Status: Ordered tiZANidine 4 mg oral tablet 2 mg, 0.5, tablet, By Mouth, 3 times a day, PRN, # 45 tablet, Refills 0, Tot. Refills 0, Maintenance, Spasm, 11/25/21 18:16:00 EDT, [facility] to Pharm[facility]ically, [id number], Partial fill upon patient request if the [...] [facility](Conf[facility]) Active Status post knee surgery, [facility] 05/02/01(Confirmed) 05/02/01 Active Lumbar facet joint [...] trigger thumb by Alex Putnam M.D. at [facility] 12Retrial prescribed 12/17/20. On 01/15, at [...]
--- OUTSIDE RECORDS SUMMARY | 2024-06-15 11:17 | XMS_ITS | Continuity of Care Document ---
Author Organization [facility] Address [address] [place] [address]- Care Team Providers Care Assembler Installer Structures Name Role Phone Christiano FANG, Tito England Primary Care Physician [phone] [place] [facility] [place]22 [facility] [address] [place], [place] [address] Allergies, Adverse Reactions, Alerts Substance Reaction Severity Status codeine nausea Active iodinated radiocontrast dyes N/V Active Immunizations Given and Recorded Vaccine Date Status Refusal Reason influenza virus vaccine, inactivated 1 06/02/22 Gi laurie influenza virus vaccine, inactivated 06/05/18 Mars rded influenza virus vaccine, inactivated 06/17/17 Mars rded [id number] 12y+ bivalent booster vax 03/27/22 Recorded SARS-CoV-2 (COVID-19) mRNA BNT-162b2 vac 08/21/21 Recorded SARS-CoV-2 (COVID-19) Ad26 vaccine 12/02/20 Given Influenza Virus Vaccine (oldterm) 07/13/20 Recorde d zoster vaccine, inactivated 11/20/18 Recorded zoster vaccine, inactivated 09/17/18 Recorded tetanus/diphtheria/pertussis, acel(Tdap) 06/05/18 Recorded 1Result Comment: [facility]:[id number] Medications AutoASV EPAPmin 8 EPAPmax 12 PSmin [...] Refills, Maintenance, 06/23/22 14:08:00 EDT, ER Tablet, [facility] #[id number], Partial fillupon patient request if the prescription [...] capsule, 5 Refills, Maintenance, 03/09/22 11:52:00 EDT, [facility] #[id number], 157.5, cm, 02/09/22 19:12:00EDT, Height, 77, kg, 01/13/22 9:51:00 EDT, Dry Weight Start Date: 03/09/22 Status: Ordered ferrous sulfate 325 mg oral enteric coated tablet 1, tablet, By Mouth, Daily, # 30 tablet, Refills 1, Maintenance, 05/06/22 11:08:00 EDT, Route to Pharmacy Electronically, [facility] #[id number], 157.5, cm, 05/01/22 9:45:00 EDT, Height, 83.4, [...] 60 tablet, 2 Refills,Maintenance, 05/06/22 11:08:00 EDT, [facility] #49108, 157.5, cm, 05/01/22 9:45:00 EDT, Height, 83.4, kg, 05/01/22 9:11:00 EDT, Dry Weight Start Date: 05/06/22 Status: Ordered ipratropium nasal 21 mcg/inh spray See Instructions, PRN Nasal Congestion, 1 spray each nostril BID, # 1 each, 4 Refills, Maintenance,06/04/22 11:24:00 EDT, [facility] #17483, Partial fill upon patient request if the [...] 90 tablet, 3 Refills, 06/23/22 14:01:00 EDT, [facility] #63436, 157.5, cm, 06/23/22 13:25:00 EDT, Height, 81.3, [...] arthroscopic knee surgery: 2006 & 2008 at [facility] Confirmed Active Status post knee surgery, [facility] 05/02/01 Confirmed 05/02/01 Active Lumbar facet [...] trigger thumb by Alex Putnam M.D. at [facility] 7Retrial prescribed 12/17/20. On 01/15, at [...] Name: Sandhya Tsai MD, Cj Reyna Position: [facility] Anesthesiology MD Member Role: Lifetime Consulting Physician Address: Address: [address] [place] [address] [place] [address]- Name: Tito Alvarado MD Position: [facility] Primary Care Physician Member Role: PCP Address: Address: [address] [place] [address] Adult & [place] [address]- Care Team Related Persons Name: BRAYAN VELAZCO Address: [address] [place] [address] Name: NOEL LIZAMA Address: [address] [place] [address] Name: FADY NIELSON Address: [address] [place] [address]
--- OUTSIDE RECORDS SUMMARY | 2024-06-15 11:17 | XMS_ITS | Continuity of Care Document ---
Author Organization [facility] Address [address] [place] [address]- Care Team Providers Care Paper Tube Cutter Name Role Phone Tito Alvarado MD Primary Care Physician [phone] Encounter [facility] [place] Date(s): 05/05/21 - 06/04/21 [facility] [address] [place] [address]- Allergies, Adverse Reactions, Alerts Substance Reaction Severity [...] EDT, Supply Start Date: 11/21/20 Status: Ordered FLUoxetine 20 mg oral capsule 60 mg, 3, capsule, By Mouth, Daily, # 84 capsule, Refills 2, Tot. Refills 2, Maintenance, 03/17/21 15:51:00 EDT, Route to Pharmacy Electronically, [facility] #[id number], 163, cm, 03/17/21 13:56:00 EDT, Height Start Date: 03/17/21 Status: Ordered magnesium oxide 500 mg oral tablet 1 tablet = 500 mg, By Mouth, Daily, 0 Refills, Maintenance, 05/21/20 7:47:00 EDT Start Date: 05/21/20 Status: Ordered NALTREXONE 0.5mg capsules NALTREXONE 0.5mg capsules, See Instructions, # 18 capsule, Refills 0, Tot. Refills 0, Maintenance, 1 cap qam x 3 days, then 1 cap BID x 4 days, then 1 cap qhs x 7 days per written instructions.Compounding Medically Necessary.14 day supply., 06/03/21 1... Start Date: 06/03/21 Status: Ordered NALTREXONE 1mg capsule NALTREXONE 1mg capsule, See Instructions, # 28 capsule, Refills 0, Tot. Refills 0, Maintenance, 1-2caps po daily per written instructions.21 day supply for use w/0.5mg and 1.5mg caps.Compounding MedNecessary., 06/03/21 16:10:00 EDT, Supply Start Date: 06/03/21 Status: Ordered Physical Therapy Physical Therapy, See Instructions, # 1 each, Refills 0, Tot. Refills 0, Maintenance, Evaluate and treat bilateral shoulder pain., 06/02/21 10:52:00 EDT, Supply Start Date: 06/02/21 Status: Ordered pregabalin 150 mg oral capsule 1 capsule = 150 mg, By Mouth, 2 times a day, # 56 capsule, 2 Refills, Maintenance, 05/26/21 10:29:00 EDT, [facility] #[id number], 163, cm, 05/14/21 7:35:00 EDT, Height Start Date: 05/26/21 Status: Ordered topiramate 100 mg oral tablet 2 tablet = 200 mg, By Mouth, Daily at bedtime, # 56 tablet, 2 Refills, Maintenance, 03/17/21 15:50:00 EDT, [facility] #[id number], 163, cm, 03/17/21 13:56:00 EDT, Height Start [...] right thumb surgery(Confirmed) 9 Active Hidradenitis(Confirmed) Active Hip pain, right appears to b e related to S1 radiculitis(Confirmed) Active Status post carpal tunnel release(Confirmed) 08/13/15 Active Status post arthroscopic kne e surgery: [address] [facility](Confirmed) Active Status post knee surgery, [place] [facility] [...] 10, 11 Active Osteopenia(Confirmed) Active Buttock pain, right- at leas t in part related to S1 radiculitis(Confirmed) Active Coccydynia(Confirmed) Active Risk assessment: SOAPP-R(Confirmed) 12 [...] Putnam M.D. at [facility] 10Retrial prescribed 12/17/20. On 01/15, at [...]
--- OUTSIDE RECORDS SUMMARY | 2024-06-15 11:17 | XMS_ITS | Continuity of Care Document ---
Author Organization [facility] Address [address] [place] [address]- Care Team Providers Care Housekeeper Head Name Role Phone Christiano FANG, Tito England Primary Care Physician [phone] Encounter [facility] [place] Date(s): 03/09/22 - 04/08/22 [facility] [address] [place], [place] [address] Allergies, Adverse Reactions, Alerts [...] 12/12/21 11:12:00 EDT, Route to Pharmacy Electronically, [facility] #[id number], Partial fill upon patient request if the [...] capsule, 5 Refills, Maintenance, 03/09/22 11:52:00 EDT, [facility] #[id number], 157.5, cm, 02/09/22 19:12:00EDT, Height, 77, kg, 01/13/22 9:51:00 EDT, Dry Weight Start Date: 03/09/22 Status: Ordered ferrous sulfate 325 mg oral enteric coated tablet 1, tablet, By Mouth, Daily, # 30 tablet, Refills 0, Route to Pharmacy Electronically, [facility] #63912, 157.5, cm, 03/26/22 13:17:00 EDT, Height, 77, [...] NEEDED FOR ANXIETY, # 60 tablet, 0 Refills,[facility] #00348, 157.5, cm, 02/09/22 19:12:00 EDT, Height, 77, [...] a day, # 60 tablet, 3 Refills, [facility] #15348, 157.5, cm, 03/26/22 13:17:00 EDT, Height, 77, [...] kne e surgery: 2006 & 2008 at [facility](Confirmed) Active Status post knee surgery, [facility] [...] Index: 48% ( severe disability ); updated [place] Back Pain Disability Scale score: 61; [...] ( moderate disability ) on 05/26/17; updated [facility] Back Pain Disability Scale score: 18 on 05/26/17. 10Initial Oswestry Disability Index: 50% ( severe disability ) on 03/31/16; initial Neck Disability Index: 42% ( severe disability ) on 03/31/16; initial [facility] Back Pain Disability Scale score: 46 on 03/31/16. 11On 09/30/17 underwent Tenolysis, right thumb, for Right trigger thumb by Alex Putnam M.D. at [facility] 12Retrial prescribed 12/17/20. On 01/15, at [...]
--- OUTSIDE RECORDS SUMMARY | 2024-06-15 11:18 | XMS_ITS | Continuity of Care Document ---
Author Organization [facility] Address [address] [place] [address]- Care Team Providers Care Band Lining Bander Name Role Phone Jo-Ann Cho MD Primary Care Physician Encounter [facility] [place] Date(s): 03/10/21 - 04/09/21 [facility] [address] [place] [address]- Allergies, Adverse Reactions, Alerts Substance Reaction Severity [...] film, 0 Refills, Maintenance, 03/24/21 15:52:00 EDT, [facility] #[id number], Partial fill upon patient request if the [...] 03/17/21 15:51:00 EDT, Route to Pharmacy Electronically, [facility] #[id number], 163, cm, 03/17/21 13:56:00 EDT, Height Start Date: 03/17/21 Status: Ordered magnesium oxide 500 mg oral tablet 1 tablet = 500 mg, By Mouth, Daily, 0 Refills, Maintenance, 05/21/20 7:47:00 EDT Start Date: 05/21/20 Status: Ordered topiramate 100 mg oral tablet 2 tablet = 200 mg, By Mouth, Daily at bedtime, # 56 tablet, 2 Refills, Maintenance, 03/17/21 15:50:00 EDT, [facility] #[id number], 163, cm, 03/17/21 13:56:00 EDT, Height Start [...] [facility](Confirmed) Active Status post knee surgery, [facility] [...] trigger thumb by Alex Putnam M.D. at [facility] 10Retrial prescribed 12/17/20. On 01/15, at [...]
--- OUTSIDE RECORDS SUMMARY | 2024-06-15 11:18 | XMS_ITS | Continuity of Care Document ---
Author Organization [facility] Address [address] [place], [place] [address]brandi bhardwaj, [address] [place] [address]- Care Team Providers Care Factory Focus Technician Name Role Phone Christiano FANG, Tito England Primary Care Physician [phone] Encounter [facility] [place] Date(s): 10/22/21 - 11/21/21 [facility] [address] [place] [address] Drive, [address] [place] [address]- Allergies, Adverse Reactions, Alerts Substance Reaction Severity [...] Refills, Maintenance, 10/02/21 15:44:00 EST, EC Capsule, [facility] #[id number], Partial fill upon patient request if the prescription... Start Date: 10/02/21 Status: Ordered duloxetine 60 mg oral enteric coated capsule 1 capsule = 60 mg, By Mouth, Daily, fill when patient next requests. To be taken with 30mg cap for total 90mg daily dose, # 30 capsule, 3 Refills, Maintenance, 10/02/21 15:45:00 EST, [facility] #84623, 163, cm, 08/27/21 9:26:00 EST, Height,... Start Date: 10/02/21 Status: Ordered hydrOXYzine hydrochloride 25 mg oral tablet 1-1.5 tablet, By Mouth, 3 times a day, PRN for anxiety, dose increase, # 60 tablet, 1 Refills, Maintenance, 10/08/21 14:51:00 EST, Tablet, [facility] #[id number], Partial fill upon patient request if the [...] kne e surgery: 2006 & 2008 at [facility](Confirmed) Active Status post knee surgery, [facility] 05/02/01(Confirmed) 05/02/01 Active Lumbar facet [...] Alex Putnam M.D. at [facility] 12Retrial prescribed 12/17/20. On 01/15, [...]
--- OUTSIDE RECORDS SUMMARY | 2024-06-15 11:18 | XMS_ITS | Continuity of Care Document ---
Author Organization [facility] Address [address] [place] [address]- Care Team Providers Care Regrind Mill Operator Name Role Phone Christiano FANG, Tito England Primary Care Physician [place] [facility] [place] Date(s): 12/04/21 - 01/03/22 [facility] [address] [place], [place] [address] Allergies, Adverse Reactions, Alerts Substance [...] 12/12/21 11:12:00 EDT, Route to Pharmacy Electronically, [email or web address] #[id number], Partial fill upon patient request if the [...] Refills, Maintenance, 10/02/21 15:44:00 EST, EC Capsule, [facility] #32869, Partial fill upon patient request if the prescription... Start Date: 10/02/21 Status: Ordered duloxetine 60 mg oral enteric coated capsule 1 capsule = 60 mg, By Mouth, Daily, fill when patient next requests. To be taken with 30mg cap for total 90mg daily dose, # 30 capsule, 3 Refills, Maintenance, 10/02/21 15:45:00 EST, [facility] #66749, 163, cm, 08/27/21 9:26:00 EST, Height,... Start Date: 10/02/21 Status: Ordered ferrous sulfate 325 mg oral enteric coated tablet 325 mg, 1, tablet, By Mouth, Daily, # 30 tablet, Refills 2, Tot. Refills 2, Maintenance, 12/05/21 11:39:00 EDT, Route to Pharmacy Electronically, [facility] #[id number], Partial fill upon patient request if the prescription is for a schedule II o... Start Date: 12/05/21 Status: Ordered hydrOXYzine hydrochloride 25 mg oral tablet 1-1.5 tablet, By Mouth, 3 times a day, PRN for anxiety, dose increase, # 60 tablet, 1 Refills, Maintenance, 10/08/21 14:51:00 EST, Tablet, [facility] #[id number], Partial fill upon patient request if the [...] 11/25/21 18:16:00 EDT, Route to Pharmacy Electronically, [facility] #[id number], Partial fill upon patient request if the prescriptio... Start Date: 11/25/21 Status: Ordered Paxlovid 150 mg-100 mg oral tablet See Instructions, nirmatrelvir 2 tabs PO and ritonavir 1 tab PO BID for 5 days, # 30 tablet, 0 Refills, Maintenance, 12/15/21 9:13:00 EDT, [facility] #25116, Partial fill upon patient request if the [...] 2 Refills, Maintenance, 12/30/21 15:02:00 EDT, Tablet, [facility] #90952, Partial fill upon patient request if the prescription is for a schedule II opioid drug., 157.... Start Date: 12/30/21 Status: Ordered tiZANidine 4 mg oral tablet 2 mg, 0.5, tablet, By Mouth, 3 times a day, PRN, # 45 tablet, Refills 0, Tot. Refills 0, Maintenance, Spasm, 11/25/21 18:16:00 EDT, Route to Pharmacy Electronically, [facility] #[id number], Partial fill upon patient request if the [...] kne e surgery: 2006 & 2008 at [facility](Confirmed) Active Status post knee surgery, [facility] 05/02/01(Confirmed) 05/02/01 Active Lumbar facet [...] trigger thumb by Alex Putnam M.D. at [facility] 12Retrial prescribed 12/17/20. On 01/15, at [...]
--- OUTSIDE RECORDS SUMMARY | 2024-06-15 11:18 | XMS_ITS | Continuity of Care Document ---
Author Organization [facility] Address [address] [place] [address]- Care Team Providers Care Senior Designer/Art Director Name Role Phone Tammie FANG, Jo-Ann Primary Care Physician [place] [facility] [place] 06/13/20 [facility] [address] [place] [address] [facility] Allergies, Adverse Reactions, Alerts Substance Reaction Severity [...] 4pm., # 84 tablet, 0 Refills, Maintenance, 05/16/20 12:30:00 EDT, [facility] #[id number], DX: F90.0., 1 tab qa.m, 0.5-1 tab midday and 0-1 tab q 4pm., 163, cm, 03/20/20 15:26:00 EDT,... Start Date: 05/16/20 Status: Ordered Calcium 600 +D By Mouth, 0 Refills, Maintenance, 01/04/20 7:48:00 EDT Start Date: 01/04/20 Status: Ordered Cannabis (Schedule I Substance) 0 Refills, Maintenance, 04/22/16 14:08:47 Start Date: 04/22/16 Status: Ordered diazepam 2 mg oral tablet 0.5 - 1 tablet, By Mouth, Every 4 hours, PRN, # 112 tablet, Refills 1, Tot. Refills 1, Maintenance,pain/spams, 02/27/20 12:28:00 EDT, Route to Pharmacy Electronically, [facility] #68386, 163, cm, 02/27/20 7:51:00 EDT, Height, 64.2, kg, 2... Start Date: 02/27/20 Status: Ordered duloxetine 20 mg oral enteric coated capsule 2 capsule = 40 mg, By Mouth, Daily, Please alert pt to change in capsule strength, # 56 capsule, 4 Refills, Maintenance, 03/12/20 16:17:00 EDT, [facility] #30727, Replaces 40mg caps which her plan excludes., 163, cm, 03/12/20 7:53:00 EDT, He... Start Date: 03/12/20 Status: Ordered duloxetine 60 mg oral enteric coated capsule 1 capsule, By Mouth, Daily, TO BE TAKEN WITH 40 MG CAPSULE FOR TOTAL DAILY DOSE OF 100MG, # 28 capsule, 5 Refills, Maintenance, 02/12/20 10:25:00 EDT, [facility] #[id number], 163, cm, 01/25/20 7:56:00 EDT, Height, 64.2, [...] 7:47:00 EDT Start Date: 05/21/20 Status: Ordered [place] 325 mg-10 mg oral tablet 1 - 1.5 tablets, By Mouth, Every 4 hours, PRN pain.max of 6 tabs/day., # 84 tablet, 0 Refills, Maintenance, 03/12/20 10:05:00 EDT, [facility] #08896, Partial fill upon pt request. DX: M54.81, M54.5, M54.17, 1 - 1.5 tablets By Mouth Every 4 h... Start Date: 03/12/20 Status: Ordered topiramate 100 mg oral tablet 3 tablets, By Mouth, Daily at bedtime, # 84 tablet, 2 Refills, Maintenance, 03/12/20 8:07:00 EDT, [facility] #32714, 163, cm, 03/12/20 7:53:00 EDT, Height, 64.2, [...] kne e surgery: 2006 & 2008 at [facility](Confirmed) Active Status post knee surgery, [facility] 05/02/01(Confirmed) 05/02/01 Active Lumbar facet [...] 05/26/17; updated [facility] Back Pain Disability Scale score: 18 on 05/26/17. 6Initial Oswestry Disability Index: 50% ( severe disability ) on 03/31/16; initial Neck Disability Index: 42% ( severe disability ) on 03/31/16; initial [facility] Back Pain Disability Scale score: 46 on 03/31/16. 7On 09/30/17 underwent Tenolysis, right thumb, for Right trigger thumb by Alex Putnam M.D. at [facility] 8Memantine prescribed 01/25/20. With dose escal., pn [...]
--- OUTSIDE RECORDS SUMMARY | 2024-06-15 11:18 | XMS_ITS | Continuity of Care Document ---
Author Organization [facility] Address [address] [place] [address]- Care Team Providers Care Dredgemaster Name Role Phone Christiano FANG, Tito England Primary Care Physician [phone] Encounter [facility] Date(s): 10/07/22 - 11/06/22 [facility] [address] [place], [place] [address] Allergies, Adverse Reactions, Alerts Substance Reaction Severity Status codeine nausea Active iodinated radiocontrast dyes N/V Active Immunizations Given and Recorded Vaccine Date Status Refusal Reason influenza virus vaccine, inactivated 1 06/02/22 Gi laurie influenza virus vaccine, inactivated 06/05/18 Mars rded influenza virus vaccine, inactivated 06/17/17 Mars rded [id number] 12y+ bivalent booster vax 03/27/22 Recorded SARS-CoV-2 (COVID-19) mRNA BNT-162b2 vac 08/21/21 Recorded SARS-CoV-2 (COVID-19) Ad26 vaccine 12/02/20 Given Influenza Virus Vaccine (oldterm) 07/13/20 Recorde d zoster vaccine, inactivated 11/20/18 Recorded zoster vaccine, inactivated 09/17/18 Recorded tetanus/diphtheria/pertussis, acel(Tdap) 06/05/18 Recorded 1Result Comment: [facility]:[id number] Medications AutoASV EPAPmin 8 EPAPmax 12 PSmin [...] tablet, 2 Refills, Maintenance, 10/30/22 15:04:00 EST, [facility] #[id number], 157.5, cm, 08/07/22 10:53:00 EST, Height, 87, kg, 10/14/22 11:44:00 EST, Dry Weight Start Date: 10/30/22 Status: Ordered Calcium 600 +D 1 tablet, [...] 30 capsule, 5 Refills, 08/14/22 12:55:00 EST, [facility] #[id number], 157.5, cm, 08/07/22 10:53:00 EST, Height, 82.8, kg, 08/07/22 10:17:00 EST, Dry Weight Start Date: 08/14/22 Status: Ordered duloxetine 60 mg oral enteric coated capsule 1 capsule = 60 mg, By Mouth, Daily, take with 30mg capsule for total 90mg daily, # 30 capsule, 5 Refills, Maintenance, 03/09/22 11:52:00 EDT, [facility] #[id number], 157.5, cm, 02/09/22 19:12:00EDT, Height, 77, kg, 01/13/22 9:51:00 EDT, Dry Weight Start Date: 03/09/22 Status: Ordered ferrous sulfate 325 mg oral enteric coated tablet 1, tablet, By Mouth, Daily, # 30 tablet, Refills 1, Maintenance, 05/06/22 11:08:00 EDT, Route to Pharmacy Electronically, [facility] #[id number], 157.5, cm, 05/01/22 9:45:00 EDT, Height, 83.4, kg, 05/01/22 9:11:00 EDT, Dry Weight Start Date: 05/06/22 Status: Ordered hydrOXYzine hydrochloride 25 mg oral tablet 1 TO 1 AND 1/2 TABLETS, By Mouth, 3 times a day, PRN NEEDED FOR ANXIETY, # 60 tablet, 2 Refills,Maintenance, 10/05/22 20:26:00 EST, [facility] #[id number], 157.5, cm, 08/07/22 10:53:00 EST, Height, 82.8, kg, 08/07/22 10:17:00 EST, Dry Weight Start Date: 10/05/22 Status: Ordered ipratropium nasal 21 mcg/inh spray See Instructions, PRN Nasal Congestion, 1 spray each nostril BID, # 1 each, 4 Refills, Maintenance,06/04/22 11:24:00 EDT, [facility] #[id number], Partial fill upon patient request if the [...] Refills, Maintenance, 09/02/22 23:37:00 EST, CR Tablet, [facility] #[id number], Partial fill upon patient request if the [...] tablet, 3 Refills, Maintenance, 10/12/22 18:54:00 EST, [facility] #[id number], 157.5, cm, 08/07/22 10:53:00 EST, Height, 82.8, [...] arthroscopic knee surgery: 2006 & 2008 at [facility] Confirmed Active Status post knee surgery, [facility] 05/02/01 Confirmed 05/02/01 Active [...] trigger thumb by Alex Putnam M.D. at [facility] 7Retrial prescribed 12/17/20. On 01/15, at [...] Name: Sandhya Tsai MD, Cj Reyna Position: [facility] Anesthesiology MD Member Role: Lifetime Consulting Physician Address: Address: [address] [place] [address] [place] [address]- Name: Tito Alvarado MD Position: [facility] Primary Care Physician Member Role: PCP Address: Address: [address] [place] [address] Adult & [place] [address]- Care Team Related Persons Name: BRAYAN VELAZCO Address: [address] [place] [address] Name: NOEL LIZAMA Address: home [address] [place] [address] Name: FADY NIELSON Address: home [address] [place] [address]
--- OUTSIDE RECORDS SUMMARY | 2024-06-15 11:18 | XMS_ITS | Continuity of Care Document ---
Author Organization [facility] Address [address] [place] [address]- Care Team Providers Care Instrument Repair Supervisor Name Role Phone Christiano FANG, Tito England Primary Care Physician Encounter [facility] Date(s): 06/03/22 - 07/03/22 [facility] [address] [place], [place] [address] Allergies, Adverse Reactions, Alerts Substance Reaction Severity Status codeine nausea Active iodinated radiocontrast dyes N/V Active Immunizations Given and Recorded Vaccine Date Status Refusal Reason influenza virus vaccine, inactivated 1 06/02/22 Gi laurie influenza virus vaccine, inactivated 06/05/18 Mars rded influenza virus vaccine, inactivated 06/17/17 Mars rded [id number] 12y+ bivalent booster vax 03/27/22 Recorded SARS-CoV-2 (COVID-19) mRNA BNT-162b2 vac 08/21/21 Recorded SARS-CoV-2 (COVID-19) Ad26 vaccine 12/02/20 Given Influenza Virus Vaccine (oldterm) 07/13/20 Recorde d zoster vaccine, inactivated 11/20/18 Recorded zoster vaccine, inactivated 09/17/18 Recorded tetanus/diphtheria/pertussis, acel(Tdap) 06/05/18 Recorded 1Result Comment: [facility]:[id number] Medications AutoASV EPAPmin 8 EPAPmax 12 PSmin [...] Refills, Maintenance, 06/23/22 14:08:00 EDT, ER Tablet, [facility] #[id number], Partial fillupon patient request if the prescription [...] capsule, 5 Refills, Maintenance, 03/09/22 11:52:00 EDT, [facility] #[id number], 157.5, cm, 02/09/22 19:12:00EDT, Height, 77, kg, 01/13/22 9:51:00 EDT, Dry Weight Start Date: 03/09/22 Status: Ordered ferrous sulfate 325 mg oral enteric coated tablet 1, tablet, By Mouth, Daily, # 30 tablet, Refills 1, Maintenance, 05/06/22 11:08:00 EDT, Route to Pharmacy Electronically, [facility] #[id number], 157.5, cm, 05/01/22 9:45:00 EDT, Height, 83.4, [...] 60 tablet, 2 Refills,Maintenance, 05/06/22 11:08:00 EDT, [facility] #[id number], 157.5, cm, 05/01/22 9:45:00 EDT, Height, 83.4, kg, 05/01/22 9:11:00 EDT, Dry Weight Start Date: 05/06/22 Status: Ordered ipratropium nasal 21 mcg/inh spray See Instructions, PRN Nasal Congestion, 1 spray each nostril BID, # 1 each, 4 Refills, Maintenance,06/04/22 11:24:00 EDT, [facility] #[id number], Partial fill upon patient request if the [...] 90 tablet, 3 Refills, 06/23/22 14:01:00 EDT, [facility] #[id number], 157.5, cm, 06/23/22 13:25:00 EDT, Height, 81.3, [...] arthroscopic knee surgery: 2006 & 2008 at [facility] Confirmed Active Status post knee surgery, [facility] [...] by Alex Putnam M.D. at [facility] 7Retrial prescribed 12/17/20. On 01/15, at [...] Role: Lifetime Consulting Physician Address: Address: [address] [place] [address] [place] [address]- Name: Tito Alvarado MD Position: [facility] Primary Care Physician Member Role: PCP Address: Address: [address] [place] [address] Adult & [place] [address]- Care Team Related Persons Name: BRAYAN VELAZCO Address: [address] [place] [address] Name: NOEL LIZAMA Address: [address] [place] [address] Name: FADY NIELSON Address: [address] [place] [address]
--- OUTSIDE RECORDS SUMMARY | 2024-06-15 11:18 | XMS_ITS | Continuity of Care Document ---
Author Organization [facility] Address [address] [place] [address]- Care Team Providers Care Photographer Motion Picture Name Role Phone Tito Alvarado MD Primary Care Physician [place] [facility] [place](s): 05/20/21 - 06/19/21 [facility] [address] [place] [address]- Allergies, Adverse Reactions, Alerts Substance Reaction Severity [...] 03/17/21 15:51:00 EDT, Route to Pharmacy Electronically, [facility] #[id number], 163, cm, 03/17/21 13:56:00 EDT, Height Start [...] capsule, 2 Refills, Maintenance, 05/26/21 10:29:00 EDT, [facility] #[id number], 163, cm, 05/14/21 7:35:00 EDT, Height Start Date: 05/26/21 Status: Ordered topiramate 100 mg oral tablet 2 tablet = 200 mg, By Mouth, Daily at bedtime, # 56 tablet, 2 Refills, Maintenance, 03/17/21 15:50:00 EDT, [facility] #[id number], 163, cm, 03/17/21 13:56:00 EDT, Height Start [...] Active Attention and concentration deficit, treatment associated(Confirmed) 5 Active Medical cannabis use(Confirmed) Active Ex-cigarette [...] [facility] Active Status post knee surgery, [facility] 05/02/01(Confirmed) 05/02/01 Active Lumbar facet joint [...] ( moderate disability ) on 05/26/17; updated [facility] Back Pain Disability Scale score: 18 on 05/26/17. 9Initial Oswestry Disability Index: 50% ( severe disability ) on 03/31/16; initial Neck Disability Index: 42% ( severe disability ) on 03/31/16; initial [facility] Back Pain Disability Scale score: 46 on 03/31/16. 10On 09/30/17 underwent Tenolysis, right thumb, for Right trigger thumb by Alex Putnam M.D. at [facility] 11Retrial prescribed 12/17/20. On 01/15, at 10mg [...]
--- OUTSIDE RECORDS SUMMARY | 2024-06-15 11:18 | XMS_ITS | Continuity of Care Document ---
Author Organization [facility] Address [address] [place] [address]- Care Team Providers Care Rotary Slicing Machine Operator Name Role Phone Christiano FANG, Tito England Primary Care Physician [phone] Encounter [facility] Date(s): 06/18/22 - 07/18/22 [facility] [address] [place], [place] [address] Allergies, Adverse Reactions, Alerts Substance Reaction Severity Status codeine nausea Active iodinated radiocontrast dyes N/V Active Immunizations Given and Recorded Vaccine Date Status Refusal Reason influenza virus vaccine, inactivated 1 06/02/22 Gi laurie influenza virus vaccine, inactivated 06/05/18 Mars rded influenza virus vaccine, inactivated 06/17/17 Mars rded [id number] 12y+ bivalent booster vax 03/27/22 Recorded SARS-CoV-2 (COVID-19) mRNA BNT-162b2 vac 08/21/21 Recorded SARS-CoV-2 (COVID-19) Ad26 vaccine 12/02/20 Given Influenza Virus Vaccine (oldterm) 07/13/20 Recorde d zoster vaccine, inactivated 11/20/18 Recorded zoster vaccine, inactivated 09/17/18 Recorded tetanus/diphtheria/pertussis, acel(Tdap) 06/05/18 Recorded 1Result Comment: [facility][note 2]:[id number] Medications AutoASV EPAPmin 8 EPAPmax 12 PSmin [...] Refills, Maintenance, 06/23/22 14:08:00 EDT, ER Tablet, [facility] #[id number], Partial fillupon patient request if the prescription [...] capsule, 5 Refills, Maintenance, 03/09/22 11:52:00 EDT, [facility] #[id number], 157.5, cm, 02/09/22 19:12:00EDT, Height, 77, kg, 01/13/22 9:51:00 EDT, Dry Weight Start Date: 03/09/22 Status: Ordered ferrous sulfate 325 mg oral enteric coated tablet 1, tablet, By Mouth, Daily, # 30 tablet, Refills 1, Maintenance, 05/06/22 11:08:00 EDT, Route to Pharmacy Electronically, [facility] #[id number], 157.5, cm, 05/01/22 9:45:00 EDT, Height, 83.4, [...] 60 tablet, 2 Refills,Maintenance, 05/06/22 11:08:00 EDT, [facility] #10588, 157.5, cm, 05/01/22 9:45:00 EDT, Height, 83.4, kg, 05/01/22 9:11:00 EDT, Dry Weight Start Date: 05/06/22 Status: Ordered ipratropium nasal 21 mcg/inh spray See Instructions, PRN Nasal Congestion, 1 spray each nostril BID, # 1 each, 4 Refills, Maintenance,06/04/22 11:24:00 EDT, [facility] #[id number], Partial fill upon patient request if the [...] 90 tablet, 3 Refills, 06/23/22 14:01:00 EDT, [facility] #22252, 157.5, cm, 06/23/22 13:25:00 EDT, Height, 81.3, [...] [place] Confirmed Active Status post knee surgery, [facility] 05/02/01 Confirmed 05/02/01 Active Lumbar [...] thumb by Alex Putnam M.D. at [facility] 7Retrial prescribed 12/17/20. On 01/15, [...] Name: Sandhya Tsai MD, Cj Reyna Position: [facility] Anesthesiology MD Member Role: Lifetime Consulting Physician Address: Address: [address] [place] [address] [place] [address]- Name: Tito Alvarado MD Position: [facility] Primary Care Physician Member Role: PCP Address: Address: [address] [place] [address] Adult [place] [address]- Care Team Related Persons Name: BRAYAN VELAZCO Address: [address] [place] [address] Name: NOEL LIZAMA Address: [address] [place] [address] Name: FADY NIELSON Address: [address] [place] [address]
--- OUTSIDE RECORDS SUMMARY | 2024-06-15 11:18 | XMS_ITS | Continuity of Care Document ---
Author Organization [facility] Address [address] [place] [address]- Care Team Providers Care Slitter Cut Off Operator Name Role Phone Tito Alvarado MD Primary Care Physician [place] [facility] Date(s): 09/18/22 - 09/25/22 [facility] [address] [place] [address]- Encounter Diagnosis Fracture of fibula, distal, left, closed(Discharge Diagnosis) - 09/18/22 Chronic pain of left wrist(Discharge Diagnosis) - 09/18/22 Memory loss(Discharge Diagnosis) - 09/18/22 Cervical radiculopathy(Discharge Diagnosis) - 09/18/22 Occipital neuralgia, right (lesser occipital nerve) >>left(Discharge Diagnosis) - 09/18/22 Chronic cough(Discharge Diagnosis) - 09/18/22 Attending Physician: Tito Alvarado MD Allergies, Adverse Reactions, Alerts Substance Reaction Severity Status codeine nausea Active iodinated radiocontrast dyes N/V Active Immunizations Given and Recorded Vaccine Date Status Refusal Reason influenza virus vaccine, inactivated 1 06/02/22 Gi laurie influenza virus vaccine, inactivated 06/05/18 Mars rded influenza virus vaccine, inactivated 06/17/17 Mars rded [id number] 12y+ bivalent booster vax 03/27/22 Recorded SARS-CoV-2 (COVID-19) mRNA BNT-162b2 vac 08/21/21 Recorded SARS-CoV-2 (COVID-19) Ad26 vaccine 12/02/20 Given Influenza Virus Vaccine (oldterm) 07/13/20 Recorde d zoster vaccine, inactivated 11/20/18 Recorded zoster vaccine, inactivated 1/26/19 Recorded tetanus/diphtheria/pertussis, acel(Tdap) 06/05/18 Recorded 1Result Comment: [facility]:[id number] Medications Aerochamber w/Mask (Large) See Instructions, # [...] 10:38:00 EST, Aerosol, Route to Pharmacy Electronically, [id number], [facility] #[id number], 1... Start Date: 08/07/22 Status: Ordered AutoASV [...] Refills, Maintenance, 06/23/22 14:08:00 EDT, ER Tablet, [facility] #[id number], Partial fillupon patient request if the prescription [...] 30 capsule, 5 Refills, 08/14/22 12:55:00 EST, [facility] #[id number], 157.5, cm, 08/07/22 10:53:00 EST, Height, 82.8, kg, 08/07/22 10:17:00 EST, Dry Weight Start Date: 08/14/22 Status: Ordered duloxetine 60 mg oral enteric coated capsule 1 capsule = 60 mg, By Mouth, Daily, take with 30mg capsule for total 90mg daily, # 30 capsule, 5 Refills, Maintenance, 03/09/22 11:52:00 EDT, [facility] #[id number], 157.5, cm, 02/09/22 19:12:00EDT, Height, 77, kg, 01/13/22 9:51:00 EDT, Dry Weight Start Date: 03/09/22 Status: Ordered ferrous sulfate 325 mg oral enteric coated tablet 1, tablet, By Mouth, Daily, # 30 tablet, Refills 1, Maintenance, 05/06/22 11:08:00 EDT, Route to Pharmacy Electronically, [facility] #[id number], 157.5, cm, 05/01/22 9:45:00 EDT, Height, 83.4, kg, 05/01/22 9:11:00 EDT, Dry Weight Start Date: 05/06/22 Status: Ordered Flovent HFA 110 mcg/inh inhalation aerosol 1 puffs, Inhalation, 2 times a day, rinse mouth and throat after use, # 1 each, 2 Refills, Maintenance, 08/07/22 10:36:00 EST, Aerosol, [facility] #[id number], Partial fill upon patient request if the [...] 60 tablet, 2 Refills,Maintenance, 05/06/22 11:08:00 EDT, [facility] #[id number], 157.5, cm, 05/01/22 9:45:00 EDT, Height, 83.4, kg, 05/01/22 9:11:00 EDT, Dry Weight Start Date: 05/06/22 Status: Ordered ipratropium nasal 21 mcg/inh spray See Instructions, PRN Nasal Congestion, 1 spray each nostril BID, # 1 each, 4 Refills, Maintenance,06/04/22 11:24:00 EDT, [facility] #[id number], Partial fill upon patient request if the [...] Refills, Maintenance, 09/02/22 23:37:00 EST, CR Tablet, [facility] #[id number], Partial fill upon patient request if the [...] 90 tablet, 3 Refills, 06/23/22 14:01:00 EDT, [facility] #[id number], 157.5, cm, 06/23/22 13:25:00 EDT, Height, 81.3, [...] arthroscopic knee surgery: 2006 & 2008 at [facility] Confirmed Active Status post knee surgery, U [facility] 05/02/01 Confirmed 05/02/01 Active Lumbar [...] trigger thumb by Alex Putnam M.D. at [facility] 7Retrial prescribed 12/17/20. On 01/15, [...] Effective Dates Health Status Clinical Service Informant Cervical radiculopathy Discharge Diagnosis 09/18/22 Occipital neuralgia, right (lesser occipital nerve) >>left Discharge Diagnosis 09/18/22 Chronic cough Discharge Diagnosis 09/18/22 Fracture of fibula, distal, left, closed Discharge Diagnosis 09/18/22 Chronic pain of left wrist Discharge Diagnosis 09/18/22 Memory loss Discharge Diagnosis 09/18/22 Social History Social History Type Response Smoking Status Former smoker; Stopp ed at age: 50; entered on: 03/11/17 Sex Female Patient Care team information Care Team Personnel Name: Cj Arthur Jr, MD Position: [facility] Anesthesiology MD Member Role: Lifetime Consulting Physician Address: Address: [address] [place] [address] [place] [address]- Name: Tito Alvarado MD Position: [facility] Primary Care Physician Member Role: PCP Address: Address: [address] [place] [address] Adult & [place] [address]- Care Team Related Persons Name: BRAYAN VELAZCO Address: [address] [place] [address] Name: NOEL LIZAMA Address: [address] [place] [address] Name: FADY NIELSON Address: [address] [place] [id number]
--- OUTSIDE RECORDS SUMMARY | 2024-06-15 11:18 | XMS_ITS | Continuity of Care Document ---
Author Organization [facility] Address [address] [place] [address]- Care Team Providers Care Chief Telephone Operator Name Role Phone Tito Alvarado MD Primary Care Physician Encounter [facility] Date(s): 07/14/21 - 08/13/21 [facility] [address] [place], [place] [address] Allergies, Adverse Reactions, Alerts Substance Reaction [...] capsule, 3 Refills, Maintenance, 07/14/21 9:37:00 EST, [facility] #[id number], 163, cm, 07/02/21 14:28:00 EST, Height Start [...] 08/08/21 16:04:00 EST, Route to Pharmacy Electronically, [facility] #[id number], Partial fi... Start Date: 08/08/21 Stop Date: 11/06/21 Status: Ordered topiramate 100 mg oral tablet 3 tablet = 300 mg, By Mouth, Daily at bedtime, # 84 tablet, 1 Refills, Maintenance, 07/03/21 10:52:00 EST, [facility] #[id number], 163, cm, 07/02/21 14:28:00 EST, Height Start [...] kne e surgery: 2006 & 2008 at [facility](Confirmed) Active Status post knee surgery, [place] [...]
--- OUTSIDE RECORDS SUMMARY | 2024-06-15 11:18 | XMS_ITS | Continuity of Care Document ---
Author Organization [facility] Address [address] [place] [address]- Care Team Providers Care First Aid Teacher Name Role Phone Tammie FANG, Jo-Ann Primary Care Physician Encounter [facility] Date(s): 02/03/21 - 03/05/21 [facility] [address] [place] [address] Allergies, Adverse Reactions, Alerts Substance Reaction [...] tablet, 0 Refills, Maintenance, 01/29/21 9:17:00 EDT, [facility] #[id number], Please also refill fluoxetine. Thank you!, 1 [...] film, 0 Refills, Maintenance, 02/04/21 11:19:00 EDT, [facility] #[id number], Partial fill upon patient request, 163, cm, 02/04/21 8:59:00 EDT, Height, 64.2, kg, 03/18/19 12:29:00 EDT, Dry Weight Start Date: 02/04/21 Status: Ordered FLUoxetine 20 mg oral capsule 60 mg, 3, capsule, By Mouth, Daily, # 84 capsule, Refills 2, Tot. Refills 2, Maintenance, 12/23/20 17:07:00 EDT, Route to Pharmacy Electronically, [facility] #[id number], 163, cm, 12/23/20 13:59:00 EDT, Height, 64.2, kg, 03/18/19 12:29:00 EDT, . Start Date: 12/23/20 Status: Ordered HYDROmorphone 4 mg oral tablet 1 tablet = 4 mg, By Mouth, 5 times a day, PRN breakthrough pain. STOP hydrocodone/APAP, # 70 tablet, 0 Refills, Maintenance, 01/23/21 12:31:00 EDT, [facility] #[id number], Partial fill upon patient request, 163, cm, [...] tablet, 2 Refills, Maintenance, 11/21/20 8:46:00 EDT, [facility] #[id number], 163, cm, 11/21/20 7:51:00 EDT, Height, 64.2, [...] kne e surgery: 2006 & 2008 at [facility](Confirmed) Active Status post knee surgery, [facility] 05/02/01(Confirmed) 05/02/01 Active Lumbar facet [...] trigger thumb by Alex Putnam M.D. at [facility] 10Retrial prescribed 12/17/20. On 01/15, at [...]
--- OUTSIDE RECORDS SUMMARY | 2024-06-15 11:18 | XMS_ITS | Continuity of Care Document ---
Author Organization [facility] Address [address] [place] [address]- Care Team Providers Care Office Runner Name Role Phone Christiano FANG, Tito England Primary Care Physician [place] [facility] [place] 09/22/22 - 10/22/22 [facility] [address] [place] [address]- Attending Physician: Margaret Vargas Admitting Physician: Margaret Vargas Referring Physician: Margaret Vargas Allergies, Adverse Reactions, Alerts Substance Reaction Severity Status codeine nausea Active iodinated radiocontrast dyes N/V Active Immunizations Given and Recorded Vaccine Date Status Refusal Reason influenza virus vaccine, inactivated 1 06/02/22 Gi laurie influenza virus vaccine, inactivated 06/05/18 Mars rded influenza virus vaccine, inactivated 06/17/17 Mars rded [id number] 12y+ bivalent booster vax 03/27/22 Recorded SARS-CoV-2 (COVID-19) mRNA BNT-162b2 vac 08/21/21 Recorded SARS-CoV-2 (COVID-19) Ad26 vaccine 12/02/20 Given Influenza Virus Vaccine (oldterm) 07/13/20 Recorde d zoster vaccine, inactivated 11/20/18 Recorded zoster vaccine, inactivated 09/17/18 Recorded tetanus/diphtheria/pertussis, acel(Tdap) 06/05/18 Recorded 1Result Comment: [facility]:[id number] Medications AutoASV EPAPmin 8 EPAPmax 12 PSmin [...] Refills, Maintenance, 06/23/22 14:08:00 EDT, ER Tablet, [facility] #[id number], Partial fillupon patient request if the prescription [...] 30 capsule, 5 Refills, 08/14/22 12:55:00 EST, [facility] #[id number], 157.5, cm, 08/07/22 10:53:00 EST, Height, 82.8, kg, 08/07/22 10:17:00 EST, Dry Weight Start Date: 08/14/22 Status: Ordered duloxetine 60 mg oral enteric coated capsule 1 capsule = 60 mg, By Mouth, Daily, take with 30mg capsule for total 90mg daily, # 30 capsule, 5 Refills, Maintenance, 03/09/22 11:52:00 EDT, [facility] #[id number], 157.5, cm, 02/09/22 19:12:00EDT, Height, 77, kg, 01/13/22 9:51:00 EDT, Dry Weight Start Date: 03/09/22 Status: Ordered ferrous sulfate 325 mg oral enteric coated tablet 1, tablet, By Mouth, Daily, # 30 tablet, Refills 1, Maintenance, 05/06/22 11:08:00 EDT, Route to Pharmacy Electronically, [facility] #[id number], 157.5, cm, 05/01/22 9:45:00 EDT, Height, 83.4, kg, 05/01/22 9:11:00 EDT, Dry Weight Start Date: 05/06/22 Status: Ordered hydrOXYzine hydrochloride 25 mg oral tablet 1 TO 1 AND 1/2 TABLETS, By Mouth, 3 times a day, PRN NEEDED FOR ANXIETY, # 60 tablet, 2 Refills,Maintenance, 10/05/22 20:26:00 EST, [facility] #[id number], 157.5, cm, 08/07/22 10:53:00 EST, Height, 82.8, kg, 08/07/22 10:17:00 EST, Dry Weight Start Date: 10/05/22 Status: Ordered ipratropium nasal 21 mcg/inh spray See Instructions, PRN Nasal Congestion, 1 spray each nostril BID, # 1 each, 4 Refills, Maintenance,06/04/22 11:24:00 EDT, [facility] #[id number], Partial fill upon patient request if the [...] Refills, Maintenance, 09/02/22 23:37:00 EST, CR Tablet, [facility] #[id number], Partial fill upon patient request if the [...] tablet, 3 Refills, Maintenance, 10/12/22 18:54:00 EST, [facility] #[id number], 157.5, cm, 08/07/22 10:53:00 EST, Height, 82.8, [...] knee surgery: 2006 & 2008 at [facility] Confirmed Active Status post knee surgery, [facility] 05/02/01 Confirmed 05/02/01 [...] at [facility] 7Retrial prescribed 12/17/20. On 01/15, at 10mg [...] Member Role: Lifetime Consulting Physician Address: Address: [address] [place] [address] [place] [address]- Name: Tito Alvarado MD Position: [facility] Primary Care Physician Member Role: PCP Address: Address: [address] [place] [address] Adult [facility] [place] [address]- Care Team Related Persons Name: VELAZCOBRAYAN Address: home [address] [place] [address] Name: NOEL LIZAMA Address: home [address] [place] [address] Name: FADY NIELSON Address: [address] [place] [address]
--- OUTSIDE RECORDS SUMMARY | 2024-06-15 11:18 | XMS_ITS | Continuity of Care Document ---
Author Organization [facility] Address [address] [place] [address]- Care Team Providers Care Reception Specialist Name Role Phone Christiano FANG, Tito England Primary Care Physician [place] [facility] [place](s): 03/10/22 - 04/09/22 [facility] [address] [place], [place] [address] Allergies, Adverse Reactions, Alerts Substance [...] 12/12/21 11:12:00 EDT, Route to Pharmacy Electronically, [facility] #[id number], Partial fill upon patient request if the [...] capsule, 5 Refills, Maintenance, 03/09/22 11:52:00 EDT, [facility] #[id number], 157.5, cm, 02/09/22 19:12:00EDT, Height, 77, kg, 01/13/22 9:51:00 EDT, Dry Weight Start Date: 03/09/22 Status: Ordered ferrous sulfate 325 mg oral enteric coated tablet 1, tablet, By Mouth, Daily, # 30 tablet, Refills 0, Route to Pharmacy Electronically, [facility] #[id number], 157.5, cm, 03/26/22 13:17:00 EDT, Height, 77, [...] NEEDED FOR ANXIETY, # 60 tablet, 0 Refills,[facility] #[id number], 157.5, cm, 02/09/22 19:12:00 EDT, Height, 77, [...] a day, # 60 tablet, 3 Refills, [facility] #[id number], 157.5, cm, 03/26/22 13:17:00 EDT, Height, 77, [...] [facility] Active Status post knee surgery, [facility] 05/02/01(Confirmed) 05/02/01 Active Lumbar facet [...] [facility] 12Retrial prescribed 12/17/20. On 01/15, at 10mg [...]
--- OUTSIDE RECORDS SUMMARY | 2024-06-15 11:19 | XMS_ITS | Continuity of Care Document ---
Author Organization [facility] Address [address] [place] [address]- Care Team Providers Care Supervisor Motor Vehicle Assembly Name Role Phone Tito Alvarado MD Primary Care Physician [phone] [place] [facility] [place](s): 10/03/21 - 11/02/21 [facility] [address] [place] [address]- Allergies, Adverse Reactions, Alerts Substance Reaction Severity [...] Refills, Maintenance, 10/02/21 15:44:00 EST, EC Capsule, [facility] #[id number], Partial fill upon patient request if the prescription... Start Date: 10/02/21 Status: Ordered duloxetine 60 mg oral enteric coated capsule 1 capsule = 60 mg, By Mouth, Daily, fill when patient next requests. To be taken with 30mg cap for total 90mg daily dose, # 30 capsule, 3 Refills, Maintenance, 10/02/21 15:45:00 EST, [facility] #[id number], 163, cm, 08/27/21 9:26:00 EST, Height,... Start Date: 10/02/21 Status: Ordered hydrOXYzine hydrochloride 25 mg oral tablet 1-1.5 tablet, By Mouth, 3 times a day, PRN for anxiety, dose increase, # 60 tablet, 1 Refills, Maintenance, 10/08/21 14:51:00 EST, Tablet, [facility][id number], Partial fill upon patient request if the [...] Gm, 1 Refills, Maintenance, 09/17/21 13:09:00 EST, [facility] #[id number], Partial fill upon patient request if the prescription is for a schedule II opioid drug., 163, cm, 08/27/21 9:26:00 EST, Height, 63... Start Date: 09/17/21 Status: Ordered NuLYTELY with Flavor Packs oral powder for reconstitution See Instructions, Drink 240mL every 15-20 minutes until first half is gone. Repeat 6 hours prior toprocedure., # 4,000 mL, 0 Refills, Maintenance, 09/17/21 13:09:00 EST, [facility] #[id number],Partial fill upon patient request if the prescript... [...] Gm, 0 Refills, Maintenance, 09/23/21 13:03:00 EST, [facility] #[id number], Partial fill upon patient request if the [...] 08/08/21 16:04:00 EST, Route to Pharmacy Electronically, [facility] #[id number], Partial fi... Start Date: 08/08/21 Stop Date: 11/06/21 Status: Ordered topiramate 100 mg oral tablet 3 tablet = 300 mg, By Mouth, Daily at bedtime, # 84 tablet, 1 Refills, Maintenance, 08/26/21 14:05:00 EST, [facility] #[id number], 163, cm, 08/06/21 14:34:00 EST, Height, 63, [...] Refills, Soft Stop, 08/19/21 12:22:00 EST, [id number], Partial fill upon patient request if the [...] e surgery: 2006 & 2008 at [facility](Confirmed) Active Status post [place] surgery, [facility] [...] moderate disability ) on 05/26/17; updated [facility] Back Pain Disability Scale score: 18 on 05/26/17. 10Initial Oswestry Disability Index: 50% ( severe disability ) on 03/31/16; initial Neck Disability Index: 42% ( severe disability ) on 03/31/16; initial [facility] Back Pain Disability Scale score: 46 on 03/31/16. 11On 09/30/17 underwent Tenolysis, right thumb, for Right trigger thumb by Alex Putnam M.D. at [facility] 12Retrial prescribed 12/17/20. On 01/15, [...]
--- OUTSIDE RECORDS SUMMARY | 2024-06-15 11:19 | XMS_ITS | Continuity of Care Document ---
Author Organization [facility] Address [address] [place] [address]- Care Team Providers Care Anthropologist Name Role Phone Christiano FANG, Tito England Primary Care Physician [phone] [id number] Date(s): 08/06/22 - 09/05/22 [facility] [address] [place] [address]- Allergies, Adverse Reactions, Alerts Substance Reaction Severity Status codeine nausea Active iodinated radiocontrast dyes N/V Active Immunizations Given and Recorded Vaccine Date Status Refusal Reason influenza virus vaccine, inactivated 1 06/02/22 Gi laurie influenza virus vaccine, inactivated 06/05/18 Mars rded influenza virus vaccine, inactivated 06/17/17 Mars rded [id number] 12y+ bivalent booster vax 03/27/22 Recorded SARS-CoV-2 (COVID-19) mRNA BNT-162b2 vac 08/21/21 Recorded SARS-CoV-2 (COVID-19) Ad26 vaccine 12/02/20 Given Influenza Virus Vaccine (oldterm) 07/13/20 Recorde d zoster vaccine, inactivated 11/20/18 Recorded zoster vaccine, inactivated 09/17/18 Recorded tetanus/diphtheria/pertussis, acel(Tdap) 06/05/18 Recorded 1Result Comment: [facility]:[id number] Medications Aerochamber w/Mask (Large) See Instructions, # [...] 10:38:00 EST, Aerosol, Route to Pharmacy Electronically, [id number], [facility] #[id number], 1... Start Date: 08/07/22 Status: Ordered AutoASV [...] Refills, Maintenance, 06/23/22 14:08:00 EDT, ER Tablet, [facility] #[id number], Partial fillupon patient request if the prescription [...] 30 capsule, 5 Refills, 08/14/22 12:55:00 EST, [facility] #[id number], 157.5, cm, 08/07/22 10:53:00 EST, Height, 82.8, kg, 08/07/22 10:17:00 EST, Dry Weight Start Date: 08/14/22 Status: Ordered duloxetine 60 mg oral enteric coated capsule 1 capsule = 60 mg, By Mouth, Daily, take with 30mg capsule for total 90mg daily, # 30 capsule, 5 Refills, Maintenance, 03/09/22 11:52:00 EDT, [facility] #[id number], 157.5, cm, 02/09/22 19:12:00EDT, Height, 77, kg, 01/13/22 9:51:00 EDT, Dry Weight Start Date: 03/09/22 Status: Ordered ferrous sulfate 325 mg oral enteric coated tablet 1, tablet, By Mouth, Daily, # 30 tablet, Refills 1, Maintenance, 05/06/22 11:08:00 EDT, Route to Pharmacy Electronically, [facility] #[id number], 157.5, cm, 05/01/22 9:45:00 EDT, Height, 83.4, kg, 05/01/22 9:11:00 EDT, Dry Weight Start Date: 05/06/22 Status: Ordered Flovent HFA 110 mcg/inh inhalation aerosol 1 puffs, Inhalation, 2 times a day, rinse mouth and throat after use, # 1 each, 2 Refills, Maintenance, 08/07/22 10:36:00 EST, Aerosol, [facility] #[id number], Partial fill upon patient request if the [...] 60 tablet, 2 Refills,Maintenance, 05/06/22 11:08:00 EDT, [facility] #[id number], 157.5, cm, 05/01/22 9:45:00 EDT, Height, 83.4, kg, 05/01/22 9:11:00 EDT, Dry Weight Start Date: 05/06/22 Status: Ordered ipratropium nasal 21 mcg/inh spray See Instructions, PRN Nasal Congestion, 1 spray each nostril BID, # 1 each, 4 Refills, Maintenance,06/04/22 11:24:00 EDT, [facility] #[id number], Partial fill upon patient request if the [...] Refills, Maintenance, 09/02/22 23:37:00 EST, CR Tablet, [facility] #[id number], Partial fill upon patient request if the [...] 90 tablet, 3 Refills, 06/23/22 14:01:00 EDT, [facility] #[id number], 157.5, cm, 06/23/22 13:25:00 EDT, Height, 81.3, [...] arthroscopic knee surgery: 2006 & 2008 at [facility] Confirmed Active Status post knee surgery, [facility] 05/02/01 Confirmed 05/02/01 Active Lumbar [...] Name: Sandhya Tsai MD, Cj Reyna Position: [facility] Anesthesiology MD Member Role: Lifetime Consulting Physician Address: Address: [address] [place] [address] [place] [address]- Name: Christiano FANG, Tito England Position: [facility] Primary Care Physician Member Role: PCP Address: Address: [address] [place] [address] Adult & [place] [address]- Care Team Related Persons Name: BRAYAN VELAZCO Address: [address] [place] [address] Name: NOEL LIZAMA Address: [address] [place] [address] Name: FADY NIELSON Address: [address] [place] [address]
--- OUTSIDE RECORDS SUMMARY | 2024-06-15 11:19 | XMS_ITS | Continuity of Care Document ---
Author Organization [facility] Address [address] [place] [address]- Care Team Providers Care Lawn Caretaker Name Role Phone Christiano FANG, Tito England Primary Care Physician [place] [facility] [place] - 04/12/22 [facility] [address] [place], [place] [address] Allergies, Adverse Reactions, Alerts [...] 12/12/21 11:12:00 EDT, Route to Pharmacy Electronically, [facility] #[id number], Partial fill upon patient request if the [...] capsule, 5 Refills, Maintenance, 03/09/22 11:52:00 EDT, [facility] #[id number], 157.5, cm, 02/09/22 19:12:00EDT, Height, 77, kg, 01/13/22 9:51:00 EDT, Dry Weight Start Date: 03/09/22 Status: Ordered ferrous sulfate 325 mg oral enteric coated tablet 1, tablet, By Mouth, Daily, # 30 tablet, Refills 0, Route to Pharmacy Electronically, [facility] #[id number], 157.5, cm, 03/26/22 13:17:00 EDT, Height, 77, [...] NEEDED FOR ANXIETY, # 60 tablet, 0 Refills,[facility] #37017, 157.5, cm, 02/09/22 19:12:00 EDT, Height, 77, [...] a day, # 60 tablet, 3 Refills, [facility] #[id number], 157.5, cm, 03/26/22 13:17:00 EDT, Height, 77, [...] kne e surgery: 2006 & 2008 at [facility](Confirmed) Active Status post knee surgery, [facility] 05/02/01(Confirmed) 05/02/01 Active Lumbar [...] moderate disability ) on 05/26/17; updated [facility] Back Pain Disability Scale score: 18 on 05/26/17. 10Initial Oswestry Disability Index: 50% ( severe disability ) on 03/31/16; initial Neck Disability Index: 42% ( severe disability ) on 03/31/16; initial [facility] Back Pain Disability Scale score: 46 on 03/31/16. 11On 09/30/17 underwent Tenolysis, right thumb, for Right trigger thumb by Alex Putnam M.D. at [facility] 12Retrial prescribed 12/17/20. On 01/15, [...]
--- OUTSIDE RECORDS SUMMARY | 2024-06-15 11:19 | XMS_ITS | Continuity of Care Document ---
Author Organization [facility] Address [address] [place] [address]- Care Team Providers Care Muffler Mechanic Name Role Phone Tammie FANG, Jo-Ann Primary Care Physician Encounter [facility] Date(s): 10/10/20 - 11/09/20 [facility] [address] [place] [id number] Allergies, Adverse Reactions, Alerts Substance [...] tablet, 0 Refills, Maintenance, 10/08/20 10:57:00 EST, [facility] #[id number], DX: F90.0., 1 tab qa.m, 0.5-1 tab midday and 0-1 tab q 4pm., 163, cm, 10/08/20 7:51:00 EST, H... Start Date: 10/08/20 Status: Ordered Calcium 600 +D By Mouth, 0 Refills, Maintenance, 01/04/20 7:48:00 EDT Start Date: 01/04/20 Status: Ordered Cannabis (Schedule I Substance) 0 Refills, Maintenance, 08/31/16 14:08:47 Start Date: 04/22/16 Status: Ordered diazepam 2 mg oral tablet 0.5 - 1 tablet, By Mouth, Every 4 hours, PRN, # 112 tablet, Refills 1, Tot. Refills 1, Maintenance,pain/spams, 10/08/20 10:57:00 EST, Route to Pharmacy Electronically, [facility] #[id number], 163, cm, 10/08/20 7:51:00 EST, Height, 64.2, kg, 02/21... Start Date: 10/08/20 Status: Ordered FLUoxetine 40 mg oral capsule 1 capsule = 40 mg, By Mouth, Daily, # 30 capsule, 1 Refills, Maintenance, 10/23/20 17:26:00 EST, [facility] #[id number], 163, cm, 10/23/20 14:46:00 EST, Height, 64.2, [...] 7:47:00 EDT Start Date: 05/21/20 Status: Ordered Temple 325 mg-10 mg oral tablet 1 - 1.5 tablets, By Mouth, Every 4 hours, PRN pain.max of 6 tabs/day., # 84 tablet, 0 Refills, Maintenance, 10/08/20 10:57:00 EST, [facility] #[id number], Partial fill upon pt request. DX: M54.81, M54.5, M54.17, 1 - 1.5 tablets By Mouth Every 4 h... Start Date: 10/08/20 Status: Ordered topiramate 100 mg oral tablet 3 tablets, By Mouth, Daily at bedtime, # 84 tablet, 2 Refills, Maintenance, 07/25/20 14:36:00 EST, [facility] #[id number], 163, cm, 07/25/20 13:49:00 EST, Height, 64.2, [...] [facility] Active Status post knee surgery, [facility] 05/02/01(Confirmed) 05/02/01 Active Insomnia(Confirmed) Active Lumbar facet [...] thumb by Alex Putnam M.D. at [facility] 10Memantine prescribed 01/25/20. With dose escal., [...]
--- OUTSIDE RECORDS SUMMARY | 2024-06-15 11:19 | XMS_ITS | Continuity of Care Document ---
Author Organization [facility] Address [address] [place] [address]- Care Team Providers Care Tactical Intelligence Officer Name Role Phone Ronnie FANG, Johann Briggs Primary Care Physician [phone] Encounter [facility] Date(s): 01/11/23 - 02/10/23 [facility] [address] [place], [place] [address] Attending Physician: Margaret Vargas Admitting Physician: Margaret Vargas Referring Physician: AdmtrMargaret Allergies, Adverse Reactions, Alerts Substance Reaction Severity Status codeine nausea Active iodinated radiocontrast dyes N/V Active Immunizations Given and Recorded Vaccine Date Status Refusal Reason influenza virus vaccine, inactivated 1 06/02/22 Gi laurie influenza virus vaccine, inactivated 06/05/18 Mars rded influenza virus vaccine, inactivated 06/17/17 Mars rded [id number] 12y+ bivalent booster vax 03/27/22 Recorded SARS-CoV-2 (COVID-19) mRNA BNT-162b2 vac 08/21/21 Recorded SARS-CoV-2 (COVID-19) Ad26 vaccine 12/02/20 Given Influenza Virus Vaccine (oldterm) 07/13/20 Recorde d zoster vaccine, inactivated 11/20/18 Recorded zoster vaccine, inactivated 09/17/18 Recorded tetanus/diphtheria/pertussis, acel(Tdap) 06/05/18 Recorded 1Result Comment: [facility]:[id number] Medications AutoASV EPAPmin 8 EPAPmax 12 PSmin [...] Refills, Maintenance, 11/10/22 10:38:00 EDT, ER Tablet, [facility] #[id number], Partial fill upon patient request if theprescription [...] capsule, 5 Refills, Maintenance, 12/15/22 12:42:00 EDT, [facility] #[id number], 157.5, cm, 12/07/22 11:15:00 EDT, Height, 85, kg, 11/10/22 10:21:00 EDT, Dry Weight Start Date: 12/15/22 Status: Ordered ferrous sulfate 325 mg oral enteric coated tablet 1, tablet, By Mouth, Daily, # 30 tablet, Refills 1, Maintenance, 05/06/22 11:08:00 EDT, Route to Pharmacy Electronically, [facility] #[id number], 157.5, cm, 05/01/22 9:45:00 EDT, Height, 83.4, kg, 05/01/22 9:11:00 EDT, Dry Weight Start Date: 05/06/22 Status: Ordered gabapentin 100 mg oral capsule 100 mg, 1, capsule, By Mouth, 3 times a day, # 90 capsule, Refills 1, Tot. Refills 1, Maintenance, 12/07/22 11:26:00 EDT, Route to Pharmacy Electronically, [facility] #[id number], Partial fill upon patient request if the prescription is for a armond... Start Date: 12/07/22 Status: Ordered hydrOXYzine hydrochloride 25 mg oral tablet 1 TO 1 AND 1/2 TABLETS, By Mouth, 3 times a day, PRN NEEDED FOR ANXIETY, # 120 tablet, 0 Refills, Maintenance, 01/14/23 23:42:00 EDT, [facility] #[id number], 157.5, cm, 12/07/22 11:15:00 EDT,Height, 85, kg, 11/10/22 10:21:00 EDT, Dry Weight Start Date: 01/14/23 Status: Ordered ipratropium nasal 21 mcg/inh spray See Instructions, PRN Nasal Congestion, 1 spray each nostril BID, # 1 each, 4 Refills, Maintenance,06/04/22 11:24:00 EDT, [facility] #[id number], Partial fill upon patient request if the [...] Refills, Maintenance, 09/02/22 23:37:00 EST, CR Tablet, [facility] #[id number], Partial fill upon patient request if the prescription is for a schedule II opioid drug., 157.5, cm, 08/07/22 10:53:0... Start Date: 09/02/22 Status: Ordered pramipexole 0.125 mg oral tablet 3 tablet, By Mouth, Daily at bedtime, # 90 tablet, 3 Refills, Maintenance, 10/12/22 18:54:00 EST, [facility] #[id number], 157.5, cm, 08/07/22 10:53:00 EST, Height, 82.8, [...] knee surgery: 2006 & 2008 at [facility] Confirmed Active Status post knee [...] trigger thumb by Alex Putnam M.D. at [facility] 7Retrial prescribed 12/17/20. On 01/15, at [...] age: 50; entered on: 03/11/17 Sex Female Laboratory * Event Display: Non BH Lab Results Authored Date: * Event Display: Laboratory Result Scanned Authored Date: Radiology * Event Display: MRI Ankle/Foot, Non- BH Authored Date: * Event Display: MRI Ankle/Foot, Non- BH Authored Date: * Event Display: Bone Density Authored Date: * Event Display: Bone Density Authored Date: * Event Display: Bone Density Authored Date: * Event Display: Bone Density, Non-BH Authored Date: * Event Display: Bone Density, Non-BH Authored Date: US Breast * Event Display: Ultrasound Breast Authored Date: MG Breast Views * Event Display: MM Mammogram Authored Date: * Event Display: MM Mammogram Authored Date: * Event Display: MM Mammogram Authored Date: Patient Care team information Care Team Personnel Name: Sandhya Tsai MD, Cj Reyna Position: [facility] Anesthesiology MD Member Role: Lifetime Consulting Physician Address: Address: [address] [facility] [place] [address]- [place] Name: Ronnie FANG, Johann Briggs Position: Reference Physician Member Role: PCP Address: Address: [address] [place] [address]- Care Team Related Persons Name: BRAYAN VELAZCO Address: [address] [place] [address] Name: ABDON VELAZCO Name: NOEL LIZAMA Address: [address] [place] [address] Name: FADY NIELSON Address: [address] [place] [address]
--- OUTSIDE RECORDS SUMMARY | 2024-06-15 11:19 | XMS_ITS | Continuity of Care Document ---
Author Organization [facility] Address [address] [place] [address]- Care Team Providers Care Hip Hop Performers Name Role Phone Tammie FANG, Jo-Ann Primary Care Physician [phone] Encounter [facility] Date(s): 11/22/20 - 12/22/20 [facility] [address] [place] [id number] Allergies, Adverse Reactions, Alerts Substance [...] tablet, 0 Refills, Maintenance, 11/21/20 9:49:00 EDT, [facility] #[id number], DX: F90.0., 1 tab qa.m, 0.5-1 tab midday and0-1 tab q 4pm., 163, cm, 11/21/20 7:51:00 EDT, [place] Start Date: 11/21/20 Status: Ordered Calcium 600 [...] 10/08/20 10:57:00 EST, Route to Pharmacy Electronically, [facility] #[id number], 163, cm, 10/08/20 7:51:00 EST, Height, 64.2, kg, 02/21... Start Date: 10/08/20 Status: Ordered FLUoxetine 20 mg oral capsule 20 mg, 1, capsule, By Mouth, Daily, # 10 capsule, Refills 0, Tot. Refills 0, Maintenance, 12/18/20 7:06:00 EDT, Route to Pharmacy Electronically, [facility], Partial fill upon patient request if the prescription is for a schedule II o... Start Date: 12/18/20 Status: Ordered FLUoxetine 40 mg oral capsule 1 capsule = 40 mg, By Mouth, Daily, # 30 capsule, 1 Refills, Maintenance, 10/23/20 17:26:00 EST, [facility] #[id number], 163, cm, 10/23/20 14:46:00 EST, Height, 64.2, kg, 03/18/19 12:29:00 EDT, Dry Weight Start Date: 10/23/20 Status: Ordered FLUoxetine 60 mg oral tablet 1 tablet = 60 mg, By Mouth, Daily, Do not fill until 12/27, # 30 tablet, 1 Refills, Maintenance, 12/17/20 16:21:00 EDT, Tablet, [facility], Partial fill upon patient request if the prescription is for a schedule II opioid drug., 163, cm... Start Date: 12/17/20 Status: Ordered Ketamine 85mg capsule Ketamine 85mg [...] EDT Start Date: 05/21/20 Status: Ordered memantine 5 mg oral tablet See Instructions, 1 tablet By Mouth 2 times a day for 7 days, then 1 tab in AM, 2 tabs at night for14 days, then 0.5 tab/day in addition to (1/2) for 7 days., # 39 tablet, 0 Refills, Maintenance, 12/17/20 16:17:00 EDT, [facility], [place]... Start Date: 12/17/20 Status: Ordered [place] 325 mg-10 mg oral tablet 1 - 1.5 tablets, By Mouth, Every 4 hours, PRN pain.max of 6 tabs/day., # 84 tablet, 0 Refills, Maintenance, 11/21/20 9:49:00 EDT, [facility] #[id number], Partial fill upon pt request. DX: M54.81, M54.5, M54.17, 1 - 1.5 tablets By Mouth Every 4 ho... Start Date: 11/21/20 Status: Ordered topiramate 100 mg oral tablet 3 tablets, By Mouth, Daily at bedtime, # 84 tablet, 2 Refills, Maintenance, 11/21/20 8:46:00 EDT, [facility] #[id number], 163, cm, 11/21/20 7:51:00 EDT, Height, 64.2, [...] [facility](Confirmed) Active Status post knee surgery, [facility] 05/02/01(Confirmed) 05/02/01 Active Lumbar facet joint pain(Confirmed) [...] thumb by Alex Putnam M.D. at [facility] 10Memantine prescribed 01/25/20. With dose escal., [...]
--- OUTSIDE RECORDS SUMMARY | 2024-06-15 11:19 | XMS_ITS | Continuity of Care Document ---
Author Organization [facility] Address [address] [place] [address]- Care Team Providers Care Dashboard Developer Name Role Phone Christiano FANG, Tito England Primary Care Physician Encounter [facility] Date(s): 09/18/22 - 10/18/22 [facility] [address] [place], [place] [address] Attending Physician: Margaret Vargas Admitting Physician: Margaret Vargas Referring Physician: Margaret Vargas Allergies, Adverse Reactions, Alerts Substance Reaction Severity Status codeine nausea Active iodinated radiocontrast dyes N/V Active Immunizations Given and Recorded Vaccine Date Status Refusal Reason influenza virus vaccine, inactivated 1 06/02/22 Gi laurie influenza virus vaccine, inactivated 06/05/18 Mars rded influenza virus vaccine, inactivated 06/17/17 Mars rded [id number] 12y+ bivalent booster vax 03/27/22 Recorded SARS-CoV-2 (COVID-19) mRNA BNT-162b2 vac 08/21/21 Recorded SARS-CoV-2 (COVID-19) Ad26 vaccine 12/02/20 Given Influenza Virus Vaccine (oldterm) 07/13/20 Recorde d zoster vaccine, inactivated 11/20/18 Recorded zoster vaccine, inactivated 09/17/18 Recorded tetanus/diphtheria/pertussis, acel(Tdap) 06/05/18 Recorded 1Result Comment: [facility]:[id number] Medications AutoASV EPAPmin 8 EPAPmax 12 PSmin [...] Refills, Maintenance, 06/23/22 14:08:00 EDT, ER Tablet, [facility] #[id number], Partial fillupon patient request if the prescription [...] 30 capsule, 5 Refills, 08/14/22 12:55:00 EST, [facility] #[id number], 157.5, cm, 08/07/22 10:53:00 EST, Height, 82.8, kg, 08/07/22 10:17:00 EST, Dry Weight Start Date: 08/14/22 Status: Ordered duloxetine 60 mg oral enteric coated capsule 1 capsule = 60 mg, By Mouth, Daily, take with 30mg capsule for total 90mg daily, # 30 capsule, 5 Refills, Maintenance, 03/09/22 11:52:00 EDT, [facility] #[id number], 157.5, cm, 02/09/22 19:12:00EDT, Height, 77, kg, 01/13/22 9:51:00 EDT, Dry Weight Start Date: 03/09/22 Status: Ordered ferrous sulfate 325 mg oral enteric coated tablet 1, tablet, By Mouth, Daily, # 30 tablet, Refills 1, Maintenance, 05/06/22 11:08:00 EDT, Route to Pharmacy Electronically, [facility] #[id number], 157.5, cm, 05/01/22 9:45:00 EDT, Height, 83.4, kg, 05/01/22 9:11:00 EDT, Dry Weight Start Date: 05/06/22 Status: Ordered hydrOXYzine hydrochloride 25 mg oral tablet 1 TO 1 AND 1/2 TABLETS, By Mouth, 3 times a day, PRN NEEDED FOR ANXIETY, # 60 tablet, 2 Refills,Maintenance, 10/05/22 20:26:00 EST, [facility][id number], 157.5, cm, 08/07/22 10:53:00 EST, Height, 82.8, kg, 08/07/22 10:17:00 EST, Dry Weight Start Date: 10/05/22 Status: Ordered ipratropium nasal 21 mcg/inh spray See Instructions, PRN Nasal Congestion, 1 spray each nostril BID, # 1 each, 4 Refills, Maintenance,06/04/22 11:24:00 EDT, [facility] #[id number], Partial fill upon patient request if the [...] Refills, Maintenance, 09/02/22 23:37:00 EST, CR Tablet, [facility] #[id number], Partial fill upon patient request if the [...] tablet, 3 Refills, Maintenance, 10/12/22 18:54:00 EST, [facility] #[id number], 157.5, cm, 08/07/22 10:53:00 EST, Height, 82.8, [...] knee surgery: 2006 & 2008 at [facility] Confirmed Active Status post knee surgery, [facility] 05/02/01 Confirmed 05/02/01 Active Lumbar facet joint [...] trigger thumb by Alex Putnam M.D. at [facility] 7Retrial prescribed 12/17/20. On 01/15, [...] 03/11/17 Sex Female Note * Event Display: MRI Ankle/Foot, Non- BH Authored Date: * Event Display: MRI Ankle/Foot, Non- BH Authored Date: * Event Display: MM Mammogram Authored Date: * Event Display: Laboratory Result Scanned Authored Date: * Event Display: Non BH Lab Results Authored Date: * Event Display: MM Mammogram Authored Date: * Event Display: MM Mammogram Authored Date: * Event Display: Bone Density, Non-BH Authored Date: * Event Display: Bone Density, Non-BH Authored Date: CT Skeletal system Multisection for bone density * Event Display: Bone Density Authored Date: * Event Display: Bone Density Authored Date: * Event Display: Bone Density Authored Date: US Breast * Event Display: Ultrasound Breast Authored Date: Patient Care team information Care Team Personnel Name: Sandhya Tsai MD, Cj Reyna Position: [facility] Anesthesiology MD Member Role: Lifetime Consulting Physician Address: Address: [address] [place] [address] [place] [address]- Name: Tito Alvarado MD Position: [facility] Primary Care Physician Member Role: PCP Address: Address: [address] [place] [address] Adult [place] [address]- Care Team Related Persons Name: BRAYAN VELAZCO Address: [address] [place] [address] Name: NOEL LIZAMA Address: [address] [place] [address] Name: FADY NIELSON Address: [address] [place] [address]
--- OUTSIDE RECORDS SUMMARY | 2024-06-15 11:19 | XMS_ITS | Continuity of Care Document ---
Author Organization [facility] Address [address] [place] [address]- Care Team Providers Care Gas Golf Cart Repairer Name Role Phone Christiano FANG, Tito England Primary Care Physician Encounter [facility] Date(s): 03/13/22 - 04/12/22 [facility] [address] [place], [place] [address] Allergies, Adverse Reactions, Alerts Substance Reaction Severity [...] 12/12/21 11:12:00 EDT, Route to Pharmacy Electronically, [facility] #[id number], Partial fill upon patient request if the [...] capsule, 5 Refills, Maintenance, 03/09/22 11:52:00 EDT, [facility] #[id number], 157.5, cm, 02/09/22 19:12:00EDT, Height, 77, kg, 01/13/22 9:51:00 EDT, Dry Weight Start Date: 03/09/22 Status: Ordered ferrous sulfate 325 mg oral enteric coated tablet 1, tablet, By Mouth, Daily, # 30 tablet, Refills 0, Route to Pharmacy Electronically, [facility] #[id number], 157.5, cm, 03/26/22 13:17:00 EDT, Height, 77, [...] NEEDED FOR ANXIETY, # 60 tablet, 0 Refills,[facility] #[id number], 157.5, cm, 02/09/22 19:12:00 EDT, Height, 77, [...] a day, # 60 tablet, 3 Refills, [facility] #[id number], 157.5, cm, 03/26/22 13:17:00 EDT, Height, 77, [...] [facility](Confirmed) Active Status post knee surgery, [facility] 05/02/01(Confirmed) 05/02/01 Active Lumbar facet [...] Index: 48% ( severe disability ); updated [place] Back Pain Disability Scale score: 61; both [...] ( moderate disability ) on 05/26/17; updated [facility] Back Pain Disability Scale score: 18 on 05/26/17. 10Initial Oswestry Disability Index: 50% ( severe disability ) on 03/31/16; initial Neck Disability Index: 42% ( severe disability ) on 03/31/16; initial [facility] Back Pain Disability Scale score: 46 on [...]
--- OUTSIDE RECORDS SUMMARY | 2024-06-15 11:19 | XMS_ITS | Continuity of Care Document ---
Author Organization [facility] Address [address] [place] [address]- Care Team Providers Care Barrel Painter Name Role Phone Tammie FANG, Jo-Ann Primary Care Physician Encounter [facility] Date(s): 04/22/20 - 05/22/20 [place] [address]- [facility] Attending Physician: AdmMargaret jolley Admitting Physician: AdmtrMargaret Referring Physician: Admtr, Ar8 [...] tablet, 0 Refills, Maintenance, 05/16/20 12:30:00 EDT, [facility] #[id number], DX: F90.0., 1 tab qa.m, 0.5-1 tab [...] 02/27/20 12:28:00 EDT, Route to Pharmacy Electronically, [facility] #[id number], 163, cm, 02/27/20 7:51:00 EDT, Height, 64.2, kg, 02/21... Start Date: 02/27/20 Status: Ordered duloxetine 20 mg oral enteric coated capsule 2 capsule = 40 mg, By Mouth, Daily, Please alert pt to change in capsule strength, # 56 capsule, 4 Refills, Maintenance, 03/12/20 16:17:00 EDT, [facility] #[id number], Replaces 40mg caps which her plan excludes., 163, cm, 03/12/20 7:53:00 EDT, He... Start Date: 03/12/20 Status: Ordered duloxetine 60 mg oral enteric coated capsule 1 capsule, By Mouth, Daily, TO BE TAKEN WITH 40 MG CAPSULE FOR TOTAL DAILY DOSE OF 100MG, # 28 capsule, 5 Refills, Maintenance, 02/12/20 10:25:00 EDT, [facility] #[id number], 163, cm, 01/25/20 7:56:00 EDT, Height, 64.2, [...] 7:47:00 EDT Start Date: 05/21/20 Status: Ordered [place] 325 mg-10 mg oral tablet 1 - 1.5 tablets, By Mouth, Every 4 hours, PRN pain.max of 6 tabs/day., # 84 tablet, 0 Refills, Maintenance, 03/12/20 10:05:00 EDT, [facility] #[id number], Partial fill upon pt request. DX: M54.81, M54.5, M54.17, 1 - 1.5 tablets By Mouth Every 4 h... Start Date: 03/12/20 Status: Ordered topiramate 100 mg oral tablet 3 tablets, By Mouth, Daily at bedtime, # 84 tablet, 2 Refills, Maintenance, 03/12/20 8:07:00 EDT, [facility] #[id number], 163, cm, 03/12/20 7:53:00 EDT, Height, 64.2, [...] e surgery: 2006 & 2008 at [facility](Confirmed) Active Status post knee surgery, [facility] 05/02/01(Confirmed) 05/02/01 Active Lumbar [...] moderate disability ) on 05/26/17; updated [facility] Back Pain Disability Scale score: 18 on 05/26/17. 6Initial Oswestry Disability Index: 50% ( severe disability ) on 03/31/16; initial Neck Disability Index: 42% ( severe disability ) on 03/31/16; initial [facility] Back Pain Disability Scale score: 46 on 03/31/16. 7On 09/30/17 underwent Tenolysis, right thumb, for Right trigger thumb by Alex Putnam M.D. at [facility] 8Memantine prescribed 01/25/20. With dose escal., pn [...]
--- OUTSIDE RECORDS SUMMARY | 2024-06-15 11:19 | XMS_ITS | Continuity of Care Document ---
Author Organization [facility] Address [address] [place] [address]- Care Team Providers Care Health Specialist Name Role Phone Tammie FANG, Jo-Ann Primary Care Physician Encounter [facility] [facility] Date(s): 08/30/20 - 09/29/20 [facility] [address] [place] [address]- Attending Physician: Margaret Vargas Admitting Physician: AdmMargaret jolley Referring Physician: AdmtrMargaret Allergies, Adverse Reactions, Alerts [...] tablet, 0 Refills, Maintenance, 08/19/20 12:16:00 EST, [facility] #[id number], DX: F90.0., 1 tab qa.m, 0.5-1 tab [...] 07/02/20 9:07:00 EST, Route to Pharmacy Electronically, [facility] #[id number], 163, cm, 07/02/20 7:54:00 EST, Height, 64.2, kg, 03/18... Start Date: 07/02/20 Status: Ordered duloxetine 20 mg oral enteric coated capsule 2 capsule = 40 mg, By Mouth, Daily, for use w/60mg caps for TDD of 100mg, # 56 capsule, 5 Refills, Maintenance, 08/19/20 10:51:00 EST, [facility] #[id number], 163, cm, 08/15/20 10:48:00 EST, Height, 64.2, kg, 03/18/19 12:29:00 EDT, Dry Weight Start Date: 08/19/20 Status: Ordered duloxetine 30 mg oral enteric coated capsule See Instructions, 3 caps by mouth daily for 7 days, then 2 caps daily for 7 days, then 1 cap daily for 14 days., # 42 capsule, 0 Refills, Maintenance, 09/19/20 10:20:00 EST, [facility] #[id number], ., 163, cm, 09/18/20 15:01:00 EST, Height, 64.2,... Start Date: 09/19/20 Status: Ordered duloxetine 60 mg oral enteric coated capsule 2 capsules, By Mouth, Daily, Reflects dose increase effective 08/20/20., # 56 capsule, 3 Refills, Maintenance, 09/04/20 16:24:00 EST, [facility] #[id number], 163, cm, 08/20/20 7:51:00 EST, Height, 64.2, kg, 03/18/19 12:29:00 EDT, Dry Weight Start Date: 09/04/20 Status: Ordered FLUoxetine 10 mg oral tablet See Instructions, 1 tablet By Mouth Daily for 7 days, then 2 tabs daily for 14 days, then 3 tabs daily, # 56 tablet, 0 Refills, Maintenance, 09/19/20 10:20:00 EST, [facility] #[id number], ., 163, cm, 09/18/20 15:01:00 EST, Height, [...] 7:47:00 EDT Start Date: 05/21/20 Status: Ordered [place] 325 mg-10 mg oral tablet 1 - 1.5 tablets, By Mouth, Every 4 hours, PRN pain.max of 6 tabs/day., # 84 tablet, 0 Refills, Maintenance, 09/05/20 17:44:00 EST, [facility] #[id number], Partial fill upon pt request. DX: M54.81, M54.5, M54.17, 1 - 1.5 tablets By Mouth Every 4 h... Start Date: 09/05/20 Status: Ordered topiramate 100 mg oral tablet 3 tablets, By Mouth, Daily at bedtime, # 84 tablet, 2 Refills, Maintenance, 07/25/20 14:36:00 EST, [facility] #[id number], 163, cm, 07/25/20 13:49:00 EST, Height, 64.2, [...] [facility](Confirmed) Active Status post knee surgery, [facility] 05/02/01(Confirmed) 05/02/01 Active Lumbar facet [...] Alex Putnam M.D. at [facility] 10Memantine prescribed 01/25/20. With dose escal., [...]
--- OUTSIDE RECORDS SUMMARY | 2024-06-15 11:19 | XMS_ITS | Continuity of Care Document ---
Author Organization [facility] Address [address] [place] [address]- Care Team Providers Care Rollway Man Name Role Phone Tito Alvarado MD Primary Care Physician [phone] Encounter [facility] [place] [place] [facility] [id number] Date(s): 06/23/22 - 08/23/22 [facility] [address] [place], [place] [address] Attending Physician: Tito Alvarado MD Allergies, Adverse Reactions, Alerts Substance Reaction Severity Status codeine nausea Active iodinated radiocontrast dyes N/V Active Immunizations Given and Recorded Vaccine Date Status Refusal Reason influenza virus vaccine, inactivated 1 06/02/22 Gi laurie influenza virus vaccine, inactivated 06/05/18 Mars rded influenza virus vaccine, inactivated 06/17/17 Mars rded [id number] 12y+ bivalent booster vax 03/27/22 Recorded SARS-CoV-2 (COVID-19) mRNA BNT-162b2 vac 08/21/21 Recorded SARS-CoV-2 (COVID-19) Ad26 vaccine 12/02/20 Given Influenza Virus Vaccine (oldterm) 07/13/20 Recorde d zoster vaccine, inactivated 11/20/18 Recorded zoster vaccine, inactivated 09/17/18 Recorded tetanus/diphtheria/pertussis, acel(Tdap) 06/05/18 Recorded 1Result Comment: [facility]:[id number] Medications Aerochamber w/Mask (Large) See Instructions, # [...] 10:38:00 EST, Aerosol, Route to Pharmacy Electronically, [id number], [facility] #[id number], 1... Start Date: 08/07/22 Status: Ordered AutoASV [...] Refills, Maintenance, 06/23/22 14:08:00 EDT, ER Tablet, [facility] #[id number], Partial fillupon patient request if the prescription [...] 30 capsule, 5 Refills, 08/14/22 12:55:00 EST, [facility] #[id number], 157.5, cm, 08/07/22 10:53:00 EST, Height, 82.8, kg, 08/07/22 10:17:00 EST, Dry Weight Start Date: 08/14/22 Status: Ordered duloxetine 60 mg oral enteric coated capsule 1 capsule = 60 mg, By Mouth, Daily, take with 30mg capsule for total 90mg daily, # 30 capsule, 5 Refills, Maintenance, 03/09/22 11:52:00 EDT, [facility] #[id number], 157.5, cm, 02/09/22 19:12:00EDT, Height, 77, kg, 01/13/22 9:51:00 EDT, Dry Weight Start Date: 03/09/22 Status: Ordered ferrous sulfate 325 mg oral enteric coated tablet 1, tablet, By Mouth, Daily, # 30 tablet, Refills 1, Maintenance, 05/06/22 11:08:00 EDT, Route to Pharmacy Electronically, [facility] #[id number], 157.5, cm, 05/01/22 9:45:00 EDT, Height, 83.4, kg, 05/01/22 9:11:00 EDT, Dry Weight Start Date: 05/06/22 Status: Ordered Flovent HFA 110 mcg/inh inhalation aerosol 1 puffs, Inhalation, 2 times a day, rinse mouth and throat after use, # 1 each, 2 Refills, Maintenance, 08/07/22 10:36:00 EST, Aerosol, [facility] #[id number], Partial fill upon patient request if the [...] 60 tablet, 2 Refills,Maintenance, 05/06/22 11:08:00 EDT, [facility] #[id number], 157.5, cm, 05/01/22 9:45:00 EDT, Height, 83.4, kg, 05/01/22 9:11:00 EDT, Dry Weight Start Date: 05/06/22 Status: Ordered ipratropium nasal 21 mcg/inh spray See Instructions, PRN Nasal Congestion, 1 spray each nostril BID, # 1 each, 4 Refills, Maintenance,06/04/22 11:24:00 EDT, [facility] #[id number], Partial fill upon patient request if the [...] 90 tablet, 3 Refills, 06/23/22 14:01:00 EDT, [facility] #[id number], 157.5, cm, 06/23/22 13:25:00 EDT, Height, 81.3, [...] arthroscopic knee surgery: 2006 & 2009 at [facility] Confirmed Active Status post knee surgery, U [facility] 05/02/01 Confirmed 05/02/01 Active Lumbar facet [...] Putnam M.D. at [facility] 7Retrial prescribed 12/17/20. On 01/15, [...] Member Role: Lifetime Consulting Physician Address: Address: [address] [place] [address] [place] [address]- Name: Tito Alvarado MD Position: [facility] Primary Care Physician Member Role: PCP Address: Address: [address] [place] [address] Adult & Pediatric Medicine [address] Care Team Related Persons Name: BRAYAN VELAZCO Address: [address] [place] [address] Name: NOEL LIZAMA Address: [address] [place] [address] Name: FADY NIELSON Address: [address] [place] [address]
--- OUTSIDE RECORDS SUMMARY | 2024-06-15 11:19 | XMS_ITS | Continuity of Care Document ---
Author Organization [facility] Address [address] [place] [address]- Care Team Providers Care Collection Development Librarian Name Role Phone Tito Alvarado MD Primary Care Physician [place] [facility]/03[place] - 08/02/21 [facility] [address] [place] [address]- Allergies, Adverse Reactions, Alerts Substance Reaction Severity [...] capsule, 3 Refills, Maintenance, 07/14/21 9:37:00 EST, [facility] #[id number], 163, cm, 07/02/21 14:28:00 EST, Height Start [...] tablet, 1 Refills, Maintenance, 07/03/21 10:52:00 EST, [facility] #[id number], 163, cm, 07/02/21 14:28:00 EST, Height Start [...] at (Confirmed) Active Status post knee surgery, [facility] 05/02/01(Confirmed) 05/02/01 Active Lumbar [...] trigger thumb by Alex Putnam M.D. at [facility] 12Retrial prescribed 12/17/20. On 01/15, at [...]
--- OUTSIDE RECORDS SUMMARY | 2024-06-15 11:20 | XMS_ITS | Continuity of Care Document ---
Author Organization [facility] Address [address] [place] [address] Sean bhardwaj, [address] [place] [address]- Care Team Providers Care Radiological Equipment Specialist Name Role Phone Christiano FANG, Tito England Primary Care Physician Encounter [facility] Date(s): 12/22/21 - 01/21/[address], [address] [place], [place] [address] Attending Physician: AdmMargaret jolley Admitting Physician: AdmtrMargaret [...] 12/12/21 11:12:00 EDT, Route to Pharmacy Electronically, [facility] #[id number], Partial fill upon patient request if the [...] Refills, Maintenance, 10/02/21 15:44:00 EST, EC Capsule, [facility] #[id number], Partial fill upon patient request if the prescription... Start Date: 10/02/21 Status: Ordered duloxetine 60 mg oral enteric coated capsule 1 capsule = 60 mg, By Mouth, Daily, fill when patient next requests. To be taken with 30mg cap for total 90mg daily dose, # 30 capsule, 3 Refills, Maintenance, 10/02/21 15:45:00 EST, [facility] #[id number], 163, cm, 08/27/21 9:26:00 EST, Height,... Start Date: 10/02/21 Status: Ordered ferrous sulfate 325 mg oral enteric coated tablet 325 mg, 1, tablet, By Mouth, Daily, # 30 tablet, Refills 2, Tot. Refills 2, Maintenance, 12/05/21 11:39:00 EDT, Route to Pharmacy Electronically, [facility] #[id number], Partial fill upon patient request if the prescription is for a schedule II o... Start Date: 12/05/21 Status: Ordered hydrOXYzine hydrochloride 25 mg oral tablet 1-1.5 tablet, By Mouth, 3 times a day, PRN for anxiety, dose increase, # 60 tablet, 1 Refills, Maintenance, 01/09/22 13:02:00 EDT, Tablet, [facility] #[id number], Partial fill upon patient request if the [...] Acute 02/12/22 11:37:00 EDT, 01/13/22 11:37:00 EDT, Tablet, [facility] #[id number], Partial fill upon patient request if the [...] 2 Refills, Maintenance, 12/30/21 15:02:00 EDT, Tablet, [facility] #[id number], Partial fill upon patient request if the [...] Putnam M.D. at [facility] 12Retrial prescribed 12/17/20. On 01/15, [...]
--- OUTSIDE RECORDS SUMMARY | 2024-06-15 11:20 | XMS_ITS | Continuity of Care Document ---
Author Organization [facility] Address [address] [place] [address]- Care Team Providers Care Quality Cloth Tester Name Role Phone Christaino FANG, Tito England Primary Care Physician Encounter [facility] [place] Date(s): 03/26/22 - 04/25/22 [facility] [address] [place], [place] [address] Attending Physician: Margaret Vargas Admitting [...] 12/12/21 11:12:00 EDT, Route to Pharmacy Electronically, [facility] #[id number], Partial fill upon patient request if the [...] capsule, 5 Refills, Maintenance, 03/09/22 11:52:00 EDT, [facility] #[id number], 157.5, cm, 02/09/22 19:12:00EDT, Height, 77, kg, 01/13/22 9:51:00 EDT, Dry Weight Start Date: 03/09/22 Status: Ordered ferrous sulfate 325 mg oral enteric coated tablet 1, tablet, By Mouth, Daily, # 30 tablet, Refills 0, Route to Pharmacy Electronically, [facility] #[id number], 157.5, cm, 03/26/22 13:17:00 EDT, Height, 77, [...] NEEDED FOR ANXIETY, # 60 tablet, 0 Refills,[facility] #[id number], 157.5, cm, 02/09/22 19:12:00 EDT, Height, 77, [...] a day, # 60 tablet, 3 Refills, [facility] #[id number], 157.5, cm, 03/26/22 13:17:00 EDT, Height, 77, [...] kne e surgery: 2006 & 2009 at [facility](Confirmed) Active Status post knee surgery, [facility] [...] trigger thumb by Alex Putnam M.D. at [facility] 12Retrial prescribed 12/17/20. On 01/15, at 10mg [...] age: 50; entered on: 03/11/17 Sex Female Care Team Personnel Name: Christiano FANG, Tito England Address: [address] [place] [address] Adult [place] [address]-
--- OUTSIDE RECORDS SUMMARY | 2024-06-15 11:20 | XMS_ITS | Continuity of Care Document ---
Author Organization [facility] Address [address] [place] [address]- Care Team Providers Care Flume Ride Operator Name Role Phone Ronnie FANG, Johann Briggs Primary Care Physician [phone] Encounter [facility] [place] Date(s): 03/31/23 - 04/30/23 [facility] [address] [id number] Allergies, Adverse Reactions, Alerts Substance Reaction Severity Status codeine nausea Active iodinated radiocontrast dyes N/V Active Immunizations Given and Recorded Vaccine Date Status Refusal Reason influenza virus vaccine, inactivated 1 06/02/22 Gi laurie influenza virus vaccine, inactivated 06/05/18 Mars rded influenza virus vaccine, inactivated 06/17/17 Mars rded [id number] 12y+ bivalent booster vax 03/27/22 Recorded SARS-CoV-2 (COVID-19) mRNA BNT-162b2 vac 08/21/21 Recorded SARS-CoV-2 (COVID-19) Ad26 vaccine 12/02/20 Given Influenza Virus Vaccine (oldterm) 07/13/20 Recorde d zoster vaccine, inactivated 11/20/18 Recorded zoster vaccine, inactivated 09/17/18 Recorded tetanus/diphtheria/pertussis, acel(Tdap) 06/05/18 Recorded 1Result Comment: [facility]:[id number] Medications buPROPion 150 mg/12 hours (SR) oral tablet, extended release 1 tablet = 150 mg, By Mouth, 2 times a day, dose increase, # 60 tablet, 3 Refills, Maintenance, 11/10/22 10:38:00 EDT, ER Tablet, [facility] #[id number], Partial fill upon patient request if theprescription [...] capsule, 5 Refills, Maintenance, 12/15/22 12:42:00 EDT, [facility] #[id number], 157.5, cm, 12/07/22 11:15:00 EDT, Height, 85, kg, 11/10/22 10:21:00 EDT, Dry Weight Start Date: 12/15/22 Status: Ordered ferrous sulfate 325 mg oral enteric coated tablet 1, tablet, By Mouth, Daily, # 30 tablet, Refills 1, Maintenance, 05/06/22 11:08:00 EDT, Route to Pharmacy Electronically, [facility] #[id number], 157.5, cm, 05/01/22 9:45:00 EDT, Height, 83.4, kg, 05/01/22 9:11:00 EDT, Dry Weight Start Date: 05/06/22 Status: Ordered gabapentin 100 mg oral capsule 100 mg, 1, capsule, By Mouth, 3 times a day, # 90 capsule, Refills 1, Tot. Refills 1, Maintenance, 12/07/22 11:26:00 EDT, Route to Pharmacy Electronically, [facility] #[id number], Partial fill upon patient request if the prescription is for a armond... Start Date: 12/07/22 Status: Ordered hydrOXYzine hydrochloride 25 mg oral tablet 1 TO 1 AND 1/2 TABLETS, By Mouth, 3 times a day, PRN NEEDED FOR ANXIETY, # 120 tablet, 0 Refills, Maintenance, 01/14/23 23:42:00 EDT, [facility] #[id number], 157.5, cm, 12/07/22 11:15:00 EDT,Height, 85, kg, 11/10/22 10:21:00 EDT, Dry Weight Start Date: 01/14/23 Status: Ordered ipratropium nasal 21 mcg/inh spray See Instructions, PRN Nasal Congestion, 1 spray each nostril BID, # 1 each, 4 Refills, Maintenance,06/04/22 11:24:00 EDT, [facility] #[id number], Partial fill upon patient request if the [...] Refills, Maintenance, 09/02/22 23:37:00 EST, CR Tablet, [facility] #51563, Partial fill upon patient request if the prescription is for a schedule II opioid drug., 157.5, cm, 08/07/22 10:53:0... Start Date: 09/02/22 Status: Ordered pramipexole 0.125 mg oral tablet 3 tablet, By Mouth, Daily at bedtime, # 90 tablet, 3 Refills, Maintenance, 10/12/22 18:54:00 EST, [facility] #[id number], 157.5, cm, 08/07/22 10:53:00 EST, Height, 82.8, [...] Confirmed Active Status post knee surgery, [facility] 05/02/01 Confirmed 05/02/01 Active Hypertension Confirmed Active [...] trigger thumb by Alex Putnam M.D. at [facility] 7Retrial prescribed 12/17/20. On 01/15, at 10mg [...] Name: Sandhya Tsai MD, Cj Reyna Position: [facility] Anesthesiology MD Member Role: Lifetime Consulting Physician Address: Address: [address] [place] [address] [place] [address]- Name: Johann Trujillo MD Position: Reference Physician Member Role: PCP Address: Address: [address] [place] [address]- Care Team Related Persons Name: BRAYAN VELAZCO Address: [address] [place] [address] Name: ABDON VELAZCO Name: NOEL LIZAMA Address: [address] [place] [address] Name: FADY NIELSON Address: [address] [place] [address]
--- OUTSIDE RECORDS SUMMARY | 2024-06-15 11:20 | XMS_ITS | Continuity of Care Document ---
Author Organization [facility] Address [address] [place] [address]- Care Team Providers Care Pad Extraction Tender Name Role Phone Tito Alvarado MD Primary Care Physician [phone] Encounter [facility] [place] Date(s): 08/28/21 - 10/16/21 [facility] [address] [place] [address]- Attending Physician: Nael Vyas MD Admitting Physician: Nael Vyas MD Referring Physician: Tito Alvarado MD Allergies, [...] Refills, Maintenance, 10/02/21 15:44:00 EST, EC Capsule, [facility] #[id number], Partial fill upon patient request if the prescription... Start Date: 10/02/21 Status: Ordered duloxetine 60 mg oral enteric coated capsule 1 capsule = 60 mg, By Mouth, Daily, fill when patient next requests. To be taken with 30mg cap for total 90mg daily dose, # 30 capsule, 3 Refills, Maintenance, 10/02/21 15:45:00 EST, [facility] #[id number], 163, cm, 08/27/21 9:26:00 EST, Height,... Start Date: 10/02/21 Status: Ordered hydrOXYzine hydrochloride 25 mg oral tablet 1-1.5 tablet, By Mouth, 3 times a day, PRN for anxiety, dose increase, # 60 tablet, 1 Refills, Maintenance, 10/08/21 14:51:00 EST, Tablet, [facility] #[id number], Partial fill upon patient request if the [...] Gm, 1 Refills, Maintenance, 09/17/21 13:09:00 EST, [facility] #[id number], Partial fill upon patient request if the prescription is for a schedule II opioid drug., 163, cm, 08/27/21 9:26:00 EST, Height, 63... Start Date: 09/17/21 Status: Ordered NuLYTELY with Flavor Packs oral powder for reconstitution See Instructions, Drink 240mL every 15-20 minutes until first half is gone. Repeat 6 hours prior toprocedure., # 4,000 mL, 0 Refills, Maintenance, 09/17/21 13:09:00 EST, [facility] #[id number],Partial fill upon patient request if the prescript... [...] Gm, 0 Refills, Maintenance, 09/23/21 13:03:00 EST, [facility] #[id number], Partial fill upon patient request if the [...] 08/08/21 16:04:00 EST, Route to Pharmacy Electronically, [facility] #[id number], Partial fi... Start Date: 08/08/21 Stop Date: 11/06/21 Status: Ordered topiramate 100 mg oral tablet 3 tablet = 300 mg, By Mouth, Daily at bedtime, # 84 tablet, 1 Refills, Maintenance, 08/26/21 14:05:00 EST, [facility] #[id number], 163, cm, 08/06/21 14:34:00 EST, Height, 63, [...] Refills, Soft Stop, 08/19/21 12:22:00 EST, Tablet, [facility] #[id number], Partial fill upon patient request if the [...] kne e surgery: 2006 & 2008 at [facility](Confirmed) Active Status post knee surgery, [facility] [...] ( moderate disability ) on 05/26/17; updated [facility] Back Pain Disability Scale score: 18 on 05/26/17. 10Initial Oswestry Disability Index: 50% ( severe disability ) on 03/31/16; initial Neck Disability Index: 42% ( severe disability ) on 03/31/16; initial [facility] Back Pain Disability Scale score: 46 on 03/31/16. 11On 09/30/17 underwent Tenolysis, right thumb, for Right trigger thumb by Alex Putnam M.D. at [facility] 12Retrial prescribed 12/17/20. On 01/15, at [...]
--- OUTSIDE RECORDS SUMMARY | 2024-06-15 11:20 | XMS_ITS | Continuity of Care Document ---
Author Organization [facility] Address [address] [place] [address]- Care Team Providers Care Select Banker Name Role Phone Jo-Ann Cho MD Primary Care Physician [phone] Encounter [facility] [place] Date(s): 12/09/20 - 12/16/20 [facility] [address] [place] [address]- Attending Physician: Jo-Ann Cho MD Allergies, Adverse [...] tablet, 0 Refills, Maintenance, 11/21/20 9:49:00 EDT, [facility] #[id number], DX: F90.0., 1 tab qa.m, 0.5-1 tab midday and0-1 tab q 4pm., 163, cm, 11/21/20 7:51:00 EDT, [facility]. Start Date: 11/21/20 Status: Ordered Calcium 600 [...] 10/08/20 10:57:00 EST, Route to Pharmacy Electronically, [facility] #[id number], 163, cm, 10/08/20 7:51:00 EST, Height, 64.2, kg, 02/21... Start Date: 10/08/20 Status: Ordered FLUoxetine 40 mg oral capsule 1 capsule = 40 mg, By Mouth, Daily, # 30 capsule, 1 Refills, Maintenance, 10/23/20 17:26:00 EST, [facility] #[id number], 163, cm, 10/23/20 14:46:00 EST, Height, 64.2, kg, 03/18/19 12:29:00 EDT, Dry Weight Start Date: 10/23/20 Status: Ordered Ketamine 85mg capsule Ketamine 85mg capsule, See Instructions, # 112 capsule, Refills 3, Tot. Refills 3, Maintenance, 1 cap by mouth 3-4 times a day. Occcipital neuralgia M53.83, 07/30/20 9:40:00 EST, Supply Start Date: 07/30/20 Status: Ordered levorphanol 2 mg oral tablet See Instructions, 1 tab po 3 to 4 times per day., # 40 tablet, 0 Refills, Maintenance, 11/26/20 17:25:00 EDT, [facility], Partial fill upon patient request, 163, cm, 11/21/20 7:51:00EDT, Height, 64.2, kg, 03/18/19 12:29:00 EDT, Dry W... Start Date: 11/26/20 Status: Ordered Linzess 72 mcg oral capsule 1 capsule = 72 mcg, By Mouth, Daily, PRN Constipation Start Date: 05/25/19 Status: Ordered magnesium oxide 500 mg oral tablet 1 tablet = 500 mg, By Mouth, Daily, 0 Refills, Maintenance, 05/21/20 7:47:00 EDT Start Date: 05/21/20 Status: Ordered [place] 325 mg-10 mg oral tablet 1 - 1.5 tablets, By Mouth, Every 4 hours, PRN pain.max of 6 tabs/day., # 84 tablet, 0 Refills, Maintenance, 11/21/20 9:49:00 EDT, [facility] #[id number], Partial fill upon pt request. DX: M54.81, M54.5, M54.17, 1 - 1.5 tablets By Mouth Every 4 ho... Start Date: 11/21/20 Status: Ordered topiramate 100 mg oral tablet 3 tablets, By Mouth, Daily at bedtime, # 84 tablet, 2 Refills, Maintenance, 11/21/20 8:46:00 EDT, [facility] #[id number], 163, cm, 11/21/20 7:51:00 EDT, Height, 64.2, [...] kne e surgery: 2006 & 2008 at [facility](Confirmed) Active Status post knee surgery, [facility] [...] moderate disability ) on 05/26/17; updated [facility] Back Pain Disability Scale score: 18 on 05/26/17. 8Initial Oswestry Disability Index: 50% ( severe disability ) on 03/31/16; initial Neck Disability Index: 42% ( severe disability ) on 03/31/16; initial [facility] Back Pain Disability Scale score: 46 on 03/31/16. 9On 09/30/17 underwent Tenolysis, right thumb, for Right trigger thumb by Alex Putnam M.D. at [facility] 10Memantine prescribed 01/25/20. With dose [...]
--- OUTSIDE RECORDS SUMMARY | 2024-06-15 11:20 | XMS_ITS | Continuity of Care Document ---
Author Organization [facility] Address [address] [place] [address]- Care Team Providers Care Cryptographic Machine Operator Name Role Phone Tammie FANG, Jo-Ann Primary Care Physician Encounter [facility] Date(s): 01/09/21 - 02/08/21 [facility] [address] [place] [address]- Allergies, Adverse Reactions, Alerts Substance Reaction Severity [...] tablet, 0 Refills, Maintenance, 01/29/21 9:17:00 EDT, [facility] #[id number], Please also refill fluoxetine. Thank you!, 1 [...] film, 0 Refills, Maintenance, 02/04/21 11:19:00 EDT, [facility] #[id number], Partial fill upon patient request, 163, cm, 02/04/21 8:59:00 EDT, Height, 64.2, kg, 03/18/19 12:29:00 EDT, Dry Weight Start Date: 02/04/21 Status: Ordered FLUoxetine 20 mg oral capsule 60 mg, 3, capsule, By Mouth, Daily, # 84 capsule, Refills 2, Tot. Refills 2, Maintenance, 12/23/20 17:07:00 EDT, Route to Pharmacy Electronically, [facility] #[id number], 163, cm, 12/23/20 13:59:00 EDT, Height, 64.2, kg, 03/18/19 12:29:00 EDT, . Start Date: 12/23/20 Status: Ordered HYDROmorphone 4 mg oral tablet 1 tablet = 4 mg, By Mouth, 5 times a day, PRN breakthrough pain. STOP hydrocodone/APAP, # 70 tablet, 0 Refills, Maintenance, 01/23/21 12:31:00 EDT, [facility] #[id number], Partial fill upon patient request, 163, cm, [...] tablet, 2 Refills, Maintenance, 11/21/20 8:46:00 EDT, [facility] #[id number], 163, cm, 11/21/20 7:51:00 EDT, Height, 64.2, [...] [facility] Active Status post knee surgery, [facility] 05/02/01(Confirmed) 05/02/01 Active Lumbar facet joint pain(Confirmed) [...] ( moderate disability ) on 05/26/17; updated [facility] Back Pain Disability Scale score: 18 on 05/26/17. 8Initial Oswestry Disability Index: 50% ( severe disability ) on 03/31/16; initial Neck Disability Index: 42% ( severe disability ) on 03/31/16; initial [facility] Back Pain Disability Scale score: 46 on 03/31/16. 9On 09/30/17 underwent Tenolysis, right thumb, for Right trigger thumb by Alex Putnam M.D. at [facility] 10Retrial prescribed 12/17/20. On 01/15, at [...]
--- OUTSIDE RECORDS SUMMARY | 2024-06-15 11:20 | XMS_ITS | Continuity of Care Document ---
Author Organization [facility] Address [address] [place] [address]- Care Team Providers Care Cardiology Nurse Name Role Phone Tammie FANG, Jo-Ann Primary Care Physician En[place] [facility] [place] Date(s): 10/25/19 - 12/30/19 [facility] [address] [place] [address]- [facility] Attending Physician: Cj Arthur Jr., MD Admitting Physician: Cj Arthur Jr., MD Allergies, Adverse Reactions, Alerts Substance Reaction [...] 11/30/19 9:14:00 EDT, Route to Pharmacy Electronically, [facility] #[id number], 163, cm, 11/30/19 7:45:00 EDT, Height, 64.2, kg, 03/18... Start Date: 11/30/19 Status: Ordered DULoxetine 40 mg oral delayed release capsule 1 capsule = 40 mg, By Mouth, Daily, To be taken with 60mg capsule to equal 100mg/day., # 28 capsule, 2 Refills, Maintenance, 11/21/19 8:24:00 EDT, [facility] #[id number], 163, cm, 10/16/19 7:44:00 EST, Height, 64.2, kg, 03/18/19 12:29:00 EDT, Dry... Start Date: 11/21/19 Status: Ordered duloxetine 60 mg oral enteric coated capsule 1 capsule, By Mouth, Daily, TO BE TAKEN WITH 40 MG CAPSULE FOR TOTAL DAILY DOSE OF 100MG, # 28 capsule, 2 Refills, Maintenance, 11/21/19 8:24:00 EDT, [facility] #[id number], 163, cm, 10/16/19 7:44:00 EST, Height, 64.2, kg, 03/18/19 12:29:00 EDT,... Start Date: 11/21/19 Status: Ordered Linzess 72 mcg oral capsule 1 capsule = 72 mcg, By Mouth, Daily, PRN Constipation Start Date: 05/25/19 Status: Ordered Misc Rx Refills 0, Maintenance, Calcim 500 mg and Magnesium 600 mg, 08/08/19 8:31:47 EST, Compound Start Date: 08/08/19 Status: Ordered [place] 325 mg-10 mg oral tablet 1 - [...] tablet, 5 Refills, Maintenance, 08/08/19 12:18:42 EST, [facility] #[id number], 163, cm, 08/08/19 8:04:18 EST, Height, 64.2, kg, 03/18/19 12:29:11 EDT,Dry Weight Start Date: 08/08/19 Status: Ordered VESIcare 10 mg oral tablet 0.5 tab, Daily, TK 1 T PO QD Start Date: 08/13/16 Status: Ordered Vitamin D3 1000 intl units oral tablet 1 tablet = 1,000 International_Units, By Mouth, Daily, 0 Refills, Maintenance, 06/14/12 8:11:58 EDT Start Date: 06/14/12 Status: Ordered zonisamide 50 mg oral capsule 1 capsule = 50 mg, By Mouth, Daily, begin taking 12/27/19. To be taken with topiramate., # 14 capsule, 0 Refills, Maintenance, 12/20/19 9:58:00 EDT, [facility] #[id number], written instructions are being faxed to be provided with medication. Thanks... Start Date: 12/20/19 Stop Date: 01/03/20 Status: Ordered Problem List Condition Effective Dates [...] [facility](Confirmed) Active Status post knee surgery, [facility] 05/02/01(Confirmed) 05/02/01 Active Lumbar facet joint [...] by Alex Putnam M.D. at [facility] 6SOAPP-R: 24 on 03/31/2016 7ACE score: 0 on 07/01/17 Social History Social History Type Response Smoking Status Former smoker; Tobac [employer] user in household: No entered on: 07/07/17 Sex Female
--- OUTSIDE RECORDS SUMMARY | 2024-06-15 11:20 | XMS_ITS | Continuity of Care Document ---
Author Organization [facility] Address [address] [place] [address]- Care Team Providers Care Tub Washer Name Role Phone Christiano FANG, Tito England Primary Care Physician Encounter [facility] [place] Date(s): 03/16/22 - 04/15/22 [facility] [address] [place], [place] [address] Allergies, [...] 12/12/21 11:12:00 EDT, Route to Pharmacy Electronically, [facility] #[id number], Partial fill upon patient request if the [...] capsule, 5 Refills, Maintenance, 03/09/22 11:52:00 EDT, [facility] #[id number], 157.5, cm, 02/09/22 19:12:00EDT, Height, 77, kg, 01/13/22 9:51:00 EDT, Dry Weight Start Date: 03/09/22 Status: Ordered ferrous sulfate 325 mg oral enteric coated tablet 1, tablet, By Mouth, Daily, # 30 tablet, Refills 0, Route to Pharmacy Electronically, [facility] #[id number], 157.5, cm, 03/26/22 13:17:00 EDT, Height, 77, [...] NEEDED FOR ANXIETY, # 60 tablet, 0 Refills,[facility] #[id number], 157.5, cm, 02/09/22 19:12:00 EDT, Height, 77, [...] a day, # 60 tablet, 3 Refills, [facility] #[id number], 157.5, cm, 03/26/22 13:17:00 EDT, Height, 77, [...] [facility](Confirmed) Active Status post knee surgery, [facility] 05/02/01(Confirmed) 05/02/01 Active Lumbar facet joint pain(Confirmed) [...] ( moderate disability ) on 05/26/17; updated [facility] Back Pain Disability Scale score: 18 on 05/26/17. 10Initial Oswestry Disability Index: 50% ( severe disability ) on 03/31/16; initial Neck Disability Index: 42% ( severe disability ) on 03/31/16; initial [facility] Back Pain Disability Scale score: 46 on 03/31/16. 11On 09/30/17 underwent Tenolysis, right thumb, for Right trigger thumb by Alex Putnam M.D. at [facility] 12Retrial prescribed 12/17/20. On 01/15, at [...]
--- OUTSIDE RECORDS SUMMARY | 2024-06-15 11:20 | XMS_ITS | Continuity of Care Document ---
Author Organization [facility] ter Address [address] [place] [address]- Care Team Providers Care Data Processing Systems Project Planner Name Role Phone Ronnie FANG, Johann Briggs Primary Care Physician [phone] Encounter 05/05/24 - 05/06/[address] [address] Attending Physician: Not on Staff, Attending MD Referring Physician: Not on Staff, Referring MD Allergies, Adverse Reactions, Alerts Substance Reaction Severity Status codeine nausea Active iodinated radiocontrast dyes N/V Active Immunizations Given and Recorded Vaccine Date Status Refusal Reason influenza virus vaccine, inactivated 1 06/02/22 Gi laurie influenza virus vaccine, inactivated 06/05/18 Mars rded influenza virus vaccine, inactivated 06/17/17 Mars rded [id number] 12y+ bivalent booster vax 03/27/22 Recorded SARS-CoV-2 (COVID-19) mRNA BNT-162b2 vac 08/21/21 Recorded SARS-CoV-2 (COVID-19) Ad26 vaccine 12/02/20 Given Influenza Virus Vaccine (oldterm) 07/13/20 Recorde d zoster vaccine, inactivated 11/20/18 Recorded zoster vaccine, inactivated 09/17/18 Recorded tetanus/diphtheria/pertussis, acel(Tdap) 06/05/18 Recorded 1Result Comment: [facility] [place]:[id number] Medications buPROPion 150 mg/12 hours (SR) oral tablet, extended release 1 tablet = 150 mg, By Mouth, 2 times a day, dose increase, # 60 tablet, 3 Refills, Maintenance, 11/10/22 10:38:00 EDT, ER Tablet, [facility] #[id number], Partial fill upon patient request if theprescription [...] capsule, 5 Refills, Maintenance, 12/15/22 12:42:00 EDT, [facility] #[id number], 157.5, cm, 12/07/22 11:15:00 EDT, Height, 85, [...] 05/06/22 11:08:00 EDT, Route to Pharmacy Electronically, [facility] #[id number], 157.5, cm, 05/01/22 9:45:00 EDT, Height, 83.4, [...] tablet, 0 Refills, Maintenance, 01/14/23 23:42:00 EDT, [facility] #[id number], 157.5, cm, 12/07/22 11:15:00 EDT,Height, 85, kg, 11/10/22 10:21:00 EDT, Dry Weight Start Date: 01/14/23 Status: Ordered ipratropium nasal 21 mcg/inh spray See Instructions, PRN Nasal Congestion, 1 spray each nostril BID, # 1 each, 4 Refills, Maintenance,06/04/22 11:24:00 EDT, [facility] #[id number], Partial fill upon patient request if the [...] Refills, Maintenance, 09/02/22 23:37:00 EST, CR Tablet, [facility] #[id number], Partial fill upon patient request if the [...] tablet, 3 Refills, Maintenance, 10/12/22 18:54:00 EST, [facility][id number], 157.5, cm, 08/07/22 10:53:00 EST, Height, 82.8, [...] surgery: 2006 & 2008 at [facility] Confirmed Active Status post knee surgery, [facility] 05/02/01 Confirmed 05/02/01 Active Hypertension Confirmed Active Lumbar facet joint pain Confirmed Active Lumbar radiculopathy, right Confirmed Active Radiculitis, lumbosacral right S1 +/- L5 new 03/2019 Confirmed 03/2019 Active Median nerve neuropathy, left Confirmed Active Myofascial pain, regional Confirmed Active Neuropathy, sacral, S1 bilaterally Confirmed Active Adverse effect of non-opioid analgesic: memantine 7, 8 Confirmed Active Obstructive sleep apnea 9 Confirmed Active Osteoporosis Confirmed Active Buttock pain, right- at least in part related to S1 radiculitis Confirmed Active Risk assessment: SOAPP-R 10 Confirmed Active Recurrent severe major depressive disorder with anxiety Confirmed Active Abdominal pain, chronic, right lower quadrant; intermittent; duration minutes Confirmed Active Risk assessment: Adverse Childhood Experience 11 Confirmed Active Severe obesity Confirmed Active Severe episode of recurrent major [...] Alex Putnam M.D. at [facility] 7Retrial prescribed 4/27/21. On 01/15, at 10mg bid off balance [...] Exam Date Time Procedure Performing Provider Status 05/05/24 12:26 PM MRI Ext Lower W/O Contrast Left Auth (Verified) Notes: (MRI Ext Lower W/O Contrast Left) Reason For Exam: Reason For Exam: M24.872 - Ot specific joint derangements of left ankle, NEC, , MRI LEFT ANKLE R/O ANTERIOR CALCANEUS PROCE;Reason For Exam: M24.872 - Ot specific joint derangements of left ankle, NEC, , MRI LEFT ANKLE R/O ANTERIOR CALCANEUS PROCE RESULT: MRI Ext Lower W/O Contrast Left [facility] VISIT NUMBER :[id number] Patient Name: Edu Suárez Date of : 1965 Date of Exam: 05-05-2024 Referring Physician: Amena Dunlap [address] [facility] [address] [place], [place] [address] Exam: MR Ankle (C-) CPT 41578 - Left Room Description: [facility] 1.5 CLINICAL HISTORY: Other specific joint derangements of the left ankle, question anterior process of the calcaneal fracture. The patient reports severe constant left ankle pain since falling on 03/31/2024, swelling. TECHNIQUE: MR of the left ankle was performed without intravenous contrast. COMPARISON: None. FINDINGS: Bone and articular cartilage: There is mild bone marrow edema in the anterior process of the calcaneus. There is linear T2 and T1 hypointense signal along the dorsal, lateral aspect of the anterior process, compatible with a subacute or incomplete fracture. Mild degenerative change of the fourth tarsometatarsal joint is seen with mild chondral thinning and small foci of subchondral marrow edema. The remainder of the articular cartilage appears normal in thickness. No evidence of joint effusion. Ligaments: The anterior and posterior tibiofibular ligaments are intact. There is mild thickening and intermediate proton density signal of the anterior talofibular ligament. The posterior talofibular and calcaneofibular ligaments are intact. The deltoid ligament and Lisfranc ligament appear intact. Tendons: The Achilles tendon is intact. There is a small amount of fluid in the posterior tibialis and flexor digitorum tendon sheaths. The flexor and extensor tendons otherwise appear unremarkable. Trace fluid is seen in the peroneal tendon sheath. There is preserved fat signal in the sinus Tarsi. The included portion of the plantar fascia is intact. Subcutaneous edema seen over the medial greater than lateral malleoli. IMPRESSION: 1. Subacute versus incomplete fracture of the anterior process of the calcaneus. 2. Sprain of the anterior talofibular ligament. 3. Small amount of fluid in the posterior tibialis, flexor digitorum and peroneal tendon sheaths, which may reflect tenosynovitis. Electronically Signed By: Monica Trent MD Dictated By: Not on Staff , MIRIAM FANG Dictated Date/Time: 05/05/24 4:17 pm Reviewed By: Not on Staff , MIRIAM FANG Signed By: Not on Staff , MIRIAM FANG Signed Date/Time: 05/05/24 4:17 pm Transcribed By: CHRIS Transcribed Date/Time: 05/05/24 4:17 pm Social History Social History Type Response Smoking Status Former smoker; Stopp ed at age: 50; entered on: 03/11/17 Sex Female Patient Care team information Care Team Personnel Name: Cj Arthur Jr, MD Position: [facility] Anesthesiology MD Member Role: Lifetime Consulting Physician Address: Address: [address] [place] [address] [place] [address]- [place] Name: Johann Trujillo MD Position: Reference Physician Member Role: PCP Address: Address: [address] [place] [address]- Care Team Related Persons Name: SUÁREZBRAYAN Address: home [address] [place] [address] Name: ABDON SUÁREZ Name: NOEL LIZAMA Address: home [address] [place] [address] Name: FADY NIELSON Address: home [address] [place] [address]
--- OUTSIDE RECORDS SUMMARY | 2024-06-15 11:20 | XMS_ITS | Continuity of Care Document ---
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 Name Role Phone Ronnie FANG, Johann Briggs Primary Care Physician [phone] Encounter [facility] Date(s): 03/31/24 - 03/31/[address] [address]- Encounter Diagnosis Foot contusion(Final) - 03/31/24 Contusion of left knee(Final) - 03/31/24 Discharge Disposition: A-D/C Home Attending Physician: Shon Ramirez MD Admitting Physician: Shon Ramirez MD Referring Physician: Not on Staff, Referring MD Allergies, Adverse Reactions, Alerts Substance Reaction Severity Status codeine nausea Active iodinated radiocontrast dyes N/V Active Immunizations Given and Recorded Vaccine Date Status Refusal Reason influenza virus vaccine, inactivated 1 06/02/22 Gi laurie influenza virus vaccine, inactivated 06/05/18 Mars rded influenza virus vaccine, inactivated 06/17/17 Mars rded [id number] 12y+ bivalent booster vax 03/27/22 Recorded SARS-CoV-2 (COVID-19) mRNA BNT-162b2 vac 08/21/21 Recorded SARS-CoV-2 (COVID-19) Ad26 vaccine 12/02/20 Given Influenza Virus Vaccine (oldterm) 07/13/20 Recorde d zoster vaccine, inactivated 11/20/18 Recorded zoster vaccine, inactivated 09/17/18 Recorded tetanus/diphtheria/pertussis, acel(Tdap) 06/05/18 Recorded 1Result Comment: [facility]:[id number] Medications buPROPion 150 mg/12 hours (SR) oral tablet, extended release 1 tablet = 150 mg, By Mouth, 2 times a day, dose increase, # 60 tablet, 3 Refills, Maintenance, 11/10/22 10:38:00 EDT, ER Tablet, [facility] #[id number], Partial fill upon patient request if theprescription [...] capsule, 5 Refills, Maintenance, 12/15/22 12:42:00 EDT, [facility] #[id number], 157.5, cm, 12/07/22 11:15:00 EDT, Height, 85, [...] 05/06/22 11:08:00 EDT, Route to Pharmacy Electronically, [facility] #[id number], 157.5, cm, 05/01/22 9:45:00 EDT, Height, 83.4, [...] tablet, 0 Refills, Maintenance, 01/14/23 23:42:00 EDT, [facility] #[id number], 157.5, cm, 12/07/22 11:15:00 EDT,Height, 85, kg, 11/10/22 10:21:00 EDT, Dry Weight Start Date: 01/14/23 Status: Ordered ipratropium nasal 21 mcg/inh spray See Instructions, PRN Nasal Congestion, 1 spray each nostril BID, # 1 each, 4 Refills, Maintenance,06/04/22 11:24:00 EDT, [facility] #[id number], Partial fill upon patient request if the [...] Refills, Maintenance, 09/02/22 23:37:00 EST, CR Tablet, [facility] #[id number], Partial fill upon patient request if the prescription is for a schedule II opioid drug., 157.5, cm, 08/07/22 10:53:0... Start Date: 09/02/22 Status: Ordered OxyCODONE IR Tablet 5 mg, Tablet, By Mouth, Once, STAT, 03/31/24 11:34:00 EDT, Stop date 03/31/24 11:34:00 EDT Start Date: 03/31/24 Stop Date: 03/31/24 Status: Completed Oxygen See Instructions, 1 L/min during sleep, 0 Refills, Maintenance, 05/06/23 16:15:00 EDT, Partial fillupon patient request if the prescription is for a schedule II opioid drug. Start Date: 05/06/23 Status: Ordered pramipexole 0.125 mg oral tablet 3 tablet, By Mouth, Daily at bedtime, # 90 tablet, 3 Refills, Maintenance, 10/12/22 18:54:00 EST, [facility] #[id number], 157.5, cm, 08/07/22 10:53:00 EST, Height, 82.8, kg, 08/07/22 10:17:00 EST, Dry Weight Start Date: 10/12/22 Status: Ordered VESIcare 10 mg oral tablet 1 tablet = 10 mg, By Mouth, Daily at bedtime, Rx by Dr aDrleen Garcia (urology) Start Date: 08/13/16 Status: Ordered [...] arthroscopic knee surgery: 2006 & 2008 at [facility] Confirmed Active Status post knee surgery, [facility] 05/02/01 Confirmed 05/02/01 [...] trigger thumb by Alex Putnam M.D. at [facility] 7Retrial prescribed 12/17/20. On 01/15, at [...] Exam Date Time Procedure Performing Provider Status 03/31/24 12:05 PM Foot Min 3 Views Left Codey Baca; Muriel ut (Verified) Notes: (Foot Min 3 Views Left) Reason For Exam: with Pain;Trauma RESULT: Foot Min 3 Views Left Left foot, 3 views Hx of Present Illness: Pain after fall COMPARISON: None. FINDINGS: No fractures or bone lesions. No arthritic changes. Normal soft tissues. IMPRESSION: Normal. WSN: [id number] Ordering Physician: Shon Ramirez Dictated By: Fabien Rivera MD Dictated Date/Time: 03/31/24 12:11 p Reviewed By: Fabien Rivera MD Signed By: Fabien Rivera MD Signed Date/Time: 03/31/24 12:11 pm Transcribed By: PER Transcribed Date/Time: 03/31/24 12:10 pm * Exam Date Time Procedure Performing Provider Status 03/31/24 11:13 AM Foot Min 3 Views Right Codey Baca; Auth (Verified) Notes: (Foot Min 3 Views Right) Reason For Exam: Trauma RESULT: Foot Min 3 Views Right Foot Min 3 Views Right, 3 views Hx of Present Illness: had mechaninal fall at 1000 this AM, rolled left ankle and landed on right knee. no head strike. no thinners. c o left ankle, right foot pain. prone to broken bones; Reason: Trauma; Clinical Question(s): Fracture COMPARISON: 01/15/2006 FINDINGS: No fractures or bone lesions. No arthritic changes. Normal soft tissues. IMPRESSION: Normal. WSN: [id number] Ordering Physician: Shon Ramirez Dictated By: Akbar Peraza MD Dictated Date/Time: 03/31/24 11:30 a Reviewed By: Akbar Peraza MD Signed By: Akbar Peraza MD Signed Date/Time: 03/31/24 11:30 am Transcribed By: PER Transcribed Date/Time: 03/31/24 11:30 am * Exam Date Time Procedure Performing Provider Status 03/31/24 11:13 AM Knee 3 Views Left Codey Baca; Auth (Verified) Notes: (Knee 3 Views Left) Reason For Exam: Trauma RESULT: Knee 3 Views Left Knee 3 Views Left INDICATION: had mechaninal fall at 1000 this AM, rolled left ankle and landed on right knee. no head strike. no thinners. c o left ankle, right foot pain. prone to broken bones; Reason: Trauma; Clinical Question(s): Fracture; Special Instructions: [place] ([place]) COMPARISON: None. FINDINGS: There is no evidence of acute or healing fracture, dislocation or bone lesion. Joint compartments are preserved. No osteochondral defects or intra-articular loose bodies. No evidence of joint effusion. Mild vascular calcification. IMPRESSION: No acute abnormality. I have personally reviewed the images and I agree with this report. WSN: [id number] Ordering Physician: Shon Ramirez Dictated By: Saqib Etienne MD Dictated Date/Time: 03/31/24 11:36 a Reviewed By: kAbar Peraza MD Signed By: Akbar Peraza MD Signed Date/Time: 03/31/24 11:41 am Transcribed By: PER Transcribed Date/Time: 03/31/24 11:29 am * Exam Date Time Procedure Performing Provider Status 03/31/24 11:13 AM Ankle Min 3 Views Left Codey Baca; Auth (Verified) Notes: (Ankle Min 3 Views Left) Reason For Exam: Trauma RESULT: Ankle Min 3 Views Left Ankle Min 3 Views Left Hx of Present Illness: had mechaninal fall at 1000 this AM, rolled left ankle and landed on right knee. no head strike. no thinners. c o left ankle, right foot pain. prone to broken bones; Reason: Trauma; Clinical Question(s): Fracture COMPARISON: 01/15/2006, 06/02/2022, and 06/12/2022 FINDINGS: No evidence of acute or healing fracture or bone lesion. Bone mineralization is normal. Intact ankle mortise and talar dome. No arthritic changes. Normal soft tissues. IMPRESSION: Normal. WSN: [id number] Ordering Physician: Shon Ramirez Dictated By: Akbar Peraza MD Dictated Date/Time: 03/31/24 11:29 a Reviewed By: Akbar Peraza MD Signed By: Akbar Peraza MD Signed Date/Time: 03/31/24 11:29 am Transcribed By: PER Transcribed Date/Time: 03/31/24 11:27 am Vital Signs Most recent to oldest [Reference Range]: 1 2 3 Height 160 cm (03/31/24 12:43 PM) 160 cm (03/31/24 10:50 AM) Weight 201 kg (03/31/24 12:43 PM) 201 kg (03/31/24 10:50 AM) Oxygen Saturation [94-100 %] 96 % (03/31/24 12:43 PM) 99 % (03/31/24 10:50 AM) Pulse Rate [55-90 bpm] 62 bpm (03/31/24 12:43 PM) 67 bpm (03/31/24 10:50 AM) Body Mass Index [18.5-24.99 kg/m2] 78.52 kg/m2 *>HHI* (03/31/24 12:43 PM) Blood Pressure [90-138/55-84 mm Hg] 145/67mm Hg *H* (03/31/24 12:43 PM) 165/79mm Hg *H* (03/31/24 10:50 AM) Respiratory Rate [16-30 br/min] 18 br/min (03/31/24 12:43 PM) 17 br/min (03/31/24 11:39 AM) 17 br/min (03/31/24 10:50 AM) Temperature [96.8-100.4 DegF] 97.9 DegF (03/31/24 10:50 AM) Mode of Delivery (Oxygen) Room air (03/31/24 12:43 PM) Room air (03/31/24 10:50 AM) Blood pressure sites Arm, left (03/31/24 12:43 PM) Arm, left (03/31/24 10:50 AM) Temperature Route Temporal (03/31/24 10:50 AM) Dry Weight 201 kg (03/31/24 12:43 PM) 201 kg (03/31/24 10:50 AM) Weight Obtained Via Standing scale (03/31/24 10:50 AM) Dry Weight Obtained Via Standing scale (03/31/24 10:50 AM) Social History Social History Type Response Smoking Status Former smoker; Stop ed at age: 50; entered on: 03/11/17 Sex Female Note * Alison Ramirez MDh: PERFORM Event Display: Patient Education Leaflets Authored Date: [id number] Multiple Documents ?? [id number] Foot Bruise You have a bruise (contusion) on your foot. There is swelling and some bleeding under the skin but no broken bones. This injury??generally??takes a few days to a few weeks to heal.??During that time,the bruise will typically change in color from??reddish, to purple-blue, to greenish-yellow, then to yellow-brown. Home care ??? Raise (elevate) the foot to reduce pain and swelling.??As much as possible, sit or lie down with the foot raised about the level of your heart.??This is especially important during the first 48 hours. ??? Ice the foot to help reduce pain and swelling.??To make an ice pack, put ice cubes in a plastic bag that seals at the top. Wrap the bag in a thin towel. Apply to the bruised area for 20 minutes every 1 to 2 hours the first day. Continue this 3 to 4 times a day until the pain and swelling go away. ??? Unless another medicine was prescribed, you can take acetaminophen, ibuprofen,or naproxen??to control pain. Talk with your healthcare provider before taking these medicines if you have chronic liver or kidney disease. Also talk with your provider if you've ever had a stomach ulcer or digestive bleeding. ??? Depending on how serious your injury is, it may be painful to put weight on the foot or bend the foot while walking. In this case, your provider may have advised you touse crutches, a cane, or a hard sole or cast shoe. If so, use these devices as advised until your injury heals. ?? Follow up Follow up with your healthcare provider as advised. Call if you don't get better in??1 to 2 weeks. ?? When to get medical advice?? Call your healthcare provider right away if you have any of these: ??? Increased pain or swelling ??? Foot or leg becomes cold, blue, numb, or tingly ??? Signs of infection:??warmth, drainage, or increased redness or pain around the bruise ??? Inability to move the injured foot??or any of the toes ??? Frequent bruising for unknown reasons ?? Last Reviewed Date: 2021 ?? [id number] The [employer]. All rights reserved. This information is not intended as a substitute for professional medical care. Always follow your healthcare professional's instructions. ?? * Shon Ramirez MD: PERFORM Event Display: Patient Education Leaflets Authored Date: [id number] Multiple Documents ?? [id number] Lower Extremity Bruise You have a bruise (contusion) on a leg, knee, ankle, foot, or toe. Symptoms include pain, swelling,and skin discoloration. No bones are broken. This injury may take from a few days to a few weeks toheal. During that time, the bruise may change from red in color, to purple-blue, to green-yellow, to yellow-brown. Home care ??? Unless another medicine was prescribed, you can take acetaminophen, ibuprofen, or naproxen??to control pain. Talk with your healthcare provider before using these medicines if you have chronic liver or kidney disease or ever had a stomach ulcer or digestive bleeding. ??? Elevate the injured area to reduce pain and swelling.??As much as possible, sit or lie down with the injured arearaised about the level of your heart. It may help to sleep with a pillow under your leg to help raise it. This is especially important during the first 48 hours. ??? Ice the injured area to help reduce pain and swelling.??Apply an ice pack to the bruised area for 20 minutes every 1 to 2 hours the first day. Continue this 3 to 4 times a day until the pain and swelling goes away. To make an ice pack, put ice cubes in a plastic bag that seals at the top. Wrap the bag in a thin towel. Don't put icedirectly on your skin. ??? If crutches have been advised, don't bear full weight on the injured leguntil you can do so without pain. You may return to sports when you are able to put full weight andimpact on the injured leg without pain. ?? Follow up Follow up with your healthcare provider as advised. Call if you are not improving within the next??1 to 2 weeks. ?? When to get medical advice?? Call your healthcare provider right away if any of these occur: ??? Increased pain or swelling ??? Foot or toes become??cold, blue, numb, or tingly ??? Signs of infection:??warmth, fluid leaking, or increased redness or pain around the injury ??? Inability to move the injured area, or any joints below the injured area ??? Frequent bruising for unknown reasons ?? Last Reviewed Date: 2021 ?? [id number] The [employer]. All rights reserved. This information is not intended as a substitute for professional medical care. Always follow your healthcare professional's instructions. ?? Patient Care team information Care Team Personnel Name: Cj Arthur Jr, MD Position: S Anesthesiology MD Member Role: Lifetime Consulting Physician Address: Address: [address] [place] [address] [place] [address]- Name: Johann Trujillo MD Position: Reference Physician Member Role: PCP Address: Address: [address] [place] [address]- Care Team Related Persons Name: BRAYAN VELAZCO Address: home [address] [place] [address] Name: ABDON VELAZCO Name: NOEL LIZAMA Address: [address] [place] [address] Name: FADY NIELSON Address: home [address] [place] [address]
--- OUTSIDE RECORDS SUMMARY | 2024-06-15 11:20 | XMS_ITS | Continuity of Care Document ---
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 Start Date: 10/02/21 Status: Ordered duloxetine 60 mg oral enteric coated capsule 1 capsule = 60 mg, By Mouth, Daily, fill when patient next requests. To be taken with 30mg cap for total 90mg daily dose, # 30 capsule, 3 Refills, Maintenance, 10/02/21 15:45:00 EST, [facility] #[id number], 163, cm, 08/27/21 9:26:00 EST, Height,... Start Date: 10/02/21 Status: Ordered hydrOXYzine hydrochloride 25 mg oral tablet 1-1.5 tablet, By Mouth, 3 times a day, PRN for anxiety, dose increase, # 60 tablet, 1 Refills, Maintenance, 10/08/21 14:51:00 EST, Tablet, [facility] #[id number], Partial fill upon patient request if the [...] Gm, 1 Refills, Maintenance, 09/17/21 13:09:00 EST, [facility] #[id number], Partial fill upon patient request if the prescription is for a schedule II opioid drug., 163, cm, 08/27/21 9:26:00 EST, Height, 63... Start Date: 09/17/21 Status: Ordered NuLYTELY with Flavor Packs oral powder for reconstitution See Instructions, Drink 240mL every 15-20 minutes until first half is gone. Repeat 6 hours prior toprocedure., # 4,000 mL, 0 Refills, Maintenance, 09/17/21 13:09:00 EST, [facility] #[id number],Partial fill upon patient request if the prescript... [...] Gm, 0 Refills, Maintenance, 09/23/21 13:03:00 EST, [facility] #[id number], Partial fill upon patient request if the [...] 08/08/21 16:04:00 EST, Route to Pharmacy Electronically, [facility] #[id number], Partial fi... Start Date: 08/08/21 Stop Date: 11/06/21 Status: Ordered topiramate 100 mg oral tablet 3 tablet = 300 mg, By Mouth, Daily at bedtime, # 84 tablet, 1 Refills, Maintenance, 08/26/21 14:05:00 EST, [facility] #[id number], 163, cm, 08/06/21 14:34:00 EST, Height, 63, [...] Refills, Soft Stop, 08/19/21 12:22:00 EST, Tablet, [facility] #[id number], Partial fill upon patient request if the [...] Medical Center(Confirmed) Active Status post knee surgery, [facility] 05/02/01(Confirmed) 05/02/01 Active Lumbar facet joint [...] by Alex Putnam M.D. at [facility] 12Retrial prescribed 12/17/20. On 01/15, at [...]
--- OUTSIDE RECORDS SUMMARY | 2024-06-15 11:20 | XMS_ITS | Continuity of Care Document ---
Author Organization [facility] Address [address] [place] [address]- Care Team Providers Care Branch Sales Manager Name Role Phone Christiano FANG, Tito England Primary Care Physician [phone] Encounter [facility] [place] Date(s): 09/19/21 - 10/19/21 [facility] [address] [place], [place] [address] Allergies, Adverse Reactions, Alerts [...] Refills, Maintenance, 10/02/21 15:44:00 EST, EC Capsule, [facility] #[id number], Partial fill upon patient request if the prescription... Start Date: 10/02/21 Status: Ordered duloxetine 60 mg oral enteric coated capsule 1 capsule = 60 mg, By Mouth, Daily, fill when patient next requests. To be taken with 30mg cap for total 90mg daily dose, # 30 capsule, 3 Refills, Maintenance, 10/02/21 15:45:00 EST, [facility] #[id number], 163, cm, 08/27/21 9:26:00 EST, Height,... Start Date: 10/02/21 Status: Ordered hydrOXYzine hydrochloride 25 mg oral tablet 1-1.5 tablet, By Mouth, 3 times a day, PRN for anxiety, dose increase, # 60 tablet, 1 Refills, Maintenance, 10/08/21 14:51:00 EST, Tablet, [facility] #[id number], Partial fill upon patient request if the [...] Gm, 1 Refills, Maintenance, 09/17/21 13:09:00 EST, [facility] #[id number], Partial fill upon patient request if the prescription is for a schedule II opioid drug., 163, cm, 08/27/21 9:26:00 EST, Height, 63... Start Date: 09/17/21 Status: Ordered NuLYTELY with Flavor Packs oral powder for reconstitution See Instructions, Drink 240mL every 15-20 minutes until first half is gone. Repeat 6 hours prior toprocedure., # 4,000 mL, 0 Refills, Maintenance, 09/17/21 13:09:00 EST, [facility] #[id number],Partial fill upon patient request if the prescript... [...] Gm, 0 Refills, Maintenance, 09/23/21 13:03:00 EST, [facility] #[id number], Partial fill upon patient request if the [...] 08/08/21 16:04:00 EST, Route to Pharmacy Electronically, [facility] #[id number], Partial fi... Start Date: 08/08/21 Stop Date: 11/06/21 Status: Ordered topiramate 100 mg oral tablet 3 tablet = 300 mg, By Mouth, Daily at bedtime, # 84 tablet, 1 Refills, Maintenance, 08/26/21 14:05:00 EST, [facility] #[id number], 163, cm, 08/06/21 14:34:00 EST, Height, 63, [...] Refills, Soft Stop, 08/19/21 12:22:00 EST, Tablet, [facility] #[id number], Partial fill upon patient request if the [...] Medical Center(Confirmed) Active Status post knee surgery, [facility] 05/02/01(Confirmed) 05/02/01 Active Lumbar facet joint pain(Confirmed) [...] ( severe disability ); updated [place] Back Pain Disability Scale score: 61; [...] Alex Putnam M.D. at [facility] 12Retrial prescribed 12/17/20. On 01/15, at 10mg [...]
--- OUTSIDE RECORDS SUMMARY | 2024-06-15 11:20 | XMS_ITS | Continuity of Care Document ---
Author Organization [facility] Address [address] [place] [address]- Care Team Providers Care Receiving Clerk Name Role Phone Tammie FANG, Jo-Ann Primary Care Physician [phone] Encounter [facility] Date(s): 12/23/20 - 01/22/21 [facility] [address] [place] [address]- Allergies, Adverse Reactions, Alerts Substance Reaction Severity [...] tablet, 0 Refills, Maintenance, 12/23/20 17:16:00 EDT, [facility] #[id number], DX: F90.0., 1 tab qa.m, 0.5-1 tab [...] 12/23/20 17:07:00 EDT, Route to Pharmacy Electronically, [facility] #[id number], 163, cm, 12/23/20 13:59:00 EDT, Height, 64.2, kg, 03/18/19 12:29:00 EDT, Start Date: 12/23/20 Status: Ordered Linzess 72 mcg oral capsule [...] tablet, 0 Refills, Maintenance, 12/23/20 13:04:00 EDT, [facility] #[id number], This NMDA receptor agonist is being used to tr... Start Date: 12/23/20 Status: Ordered memantine 10 mg oral tablet See Instructions, 0.5 tab by mouth in AM, 1 tab at night, # 10 tablet, 0 Refills, Maintenance, 01/15/21 13:41:00 EDT, [facility] #[id number], Partial fill upon patient request if the prescription is for a schedule II opioid drug., 163, cm, ... Start Date: 01/15/21 Status: Ordered [place] 325 mg-10 mg oral tablet 1 - 1.5 tablets, By Mouth, Every 4 hours, PRN pain.max of 6 tabs/day. 3 day supply pending change of regimen., # 18 tablet, 0 Refills, Maintenance, 01/22/21 17:21:00 EDT, [facility] #[id number],Partial fill upon pt request. DX: M54.81, M54.5, M... Start Date: 01/22/21 Status: Ordered topiramate 100 mg oral tablet 3 tablets, By Mouth, Daily at bedtime, # 84 tablet, 2 Refills, Maintenance, 11/21/20 8:46:00 EDT, [facility] #[id number], 163, cm, 11/21/20 7:51:00 EDT, Height, 64.2, [...] kne e surgery: 2006 & 2009 at [facility](Confirmed) Active Status post knee surgery, [facility] [...] ( moderate disability ) on 05/26/17; updated [facility] Back Pain Disability Scale score: 18 on 05/26/17. 8Initial Oswestry Disability Index: 50% ( severe disability ) on 03/31/16; initial Neck Disability Index: 42% ( severe disability ) on 03/31/16; initial [facility] Back Pain Disability Scale score: 46 on 03/31/16. 9On 09/30/17 underwent Tenolysis, right thumb, for Right trigger thumb by Alex uPtnam M.D. at [facility] 10Memantine prescribed 01/25/20. With dose escal., [...]
--- OUTSIDE RECORDS SUMMARY | 2024-06-15 11:21 | XMS_ITS | Continuity of Care Document ---
Author Organization [facility] Address [address] [place] [address]- Care Team Providers Care Truck Driver Supervisor Name Role Phone Tito Alvarado MD Primary Care Physician [phone] [id number] Date(s): 10/27/21 - 11/03/21 [facility] [address] [place] [address]- Encounter Diagnosis Fibromyalgia(Discharge Diagnosis) - 10/27/21 Lumbar radiculopathy, right(Discharge Diagnosis) - 10/27/21 Occipital neuralgia, right (lesser occipital nerve) >>left(Discharge Diagnosis) - 10/27/21 Depression, major, recurrent, moderate(Discharge Diagnosis) - 10/27/21 Anxiety, generalized(Discharge Diagnosis) - 10/27/21 Attending Physician: Tito Alvarado MD Allergies, Adverse [...] Refills, Maintenance, 10/02/21 15:44:00 EST, EC Capsule, [facility] #[id number], Partial fill upon patient request if the prescription... Start Date: 10/02/21 Status: Ordered duloxetine 60 mg oral enteric coated capsule 1 capsule = 60 mg, By Mouth, Daily, fill when patient next requests. To be taken with 30mg cap for total 90mg daily dose, # 30 capsule, 3 Refills, Maintenance, 10/02/21 15:45:00 EST, [facility] #[id number], 163, cm, 08/27/21 9:26:00 EST, Height,... Start Date: 10/02/21 Status: Ordered hydrOXYzine hydrochloride 25 mg oral tablet 1-1.5 tablet, By Mouth, 3 times a day, PRN for anxiety, dose increase, # 60 tablet, 1 Refills, Maintenance, 10/08/21 14:51:00 EST, Tablet, [facility] #[id number], Partial fill upon patient request if the [...] Gm, 1 Refills, Maintenance, 09/17/21 13:09:00 EST, [facility] #[id number], Partial fill upon patient request if the prescription is for a schedule II opioid drug., 163, cm, 08/27/21 9:26:00 EST, Height, 63... Start Date: 09/17/21 Status: Ordered NuLYTELY with Flavor Packs oral powder for reconstitution See Instructions, Drink 240mL every 15-20 minutes until first half is gone. Repeat 6 hours prior toprocedure., # 4,000 mL, 0 Refills, Maintenance, 09/17/21 13:09:00 EST, [facility] #[id number],Partial fill upon patient request if the prescript... [...] Gm, 0 Refills, Maintenance, 09/23/21 13:03:00 EST, [facility] #[id number], Partial fill upon patient request if the [...] 08/08/21 16:04:00 EST, Route to Pharmacy Electronically, [facility] #[id number], Partial fi... Start Date: 08/08/21 Stop Date: 11/06/21 Status: Ordered topiramate 100 mg oral tablet 3 tablet = 300 mg, By Mouth, Daily at bedtime, # 84 tablet, 1 Refills, Maintenance, 08/26/21 14:05:00 EST, [facility] #[id number], 163, cm, 08/06/21 14:34:00 EST, Height, 63, [...] Refills, Soft Stop, 08/19/21 12:22:00 EST, Tablet, [facility] #[id number], Partial fill upon patient request if the [...] Medical Center(Confirmed) Active Status post knee surgery, [facility] 05/02/01(Confirmed) 05/02/01 Active Lumbar [...] trigger thumb by Alex Putnam M.D. at [facility] 12Retrial prescribed 12/17/20. On 01/15, at 10mg [...] Effective Dates Health Status Clinical Service Informant Anxiety, generalized Discharge Diagnosis 10/27/21 Depression, major, recurrent, moderate Discharge Diagnosis 10/27/21 Fibromyalgia Discharge Diagnosis 10/27/21 Lumbar radiculopathy, right Discharge Diagnosis 10/27/21 Occipital neuralgia, right (lesser occipital nerve) >>left Discharge Diagnosis 10/27/21 Social History Social History Type Response Smoking Status Former smoker; Stop ed at age: 50; entered on: 03/11/17 Sex Female
--- OUTSIDE RECORDS SUMMARY | 2024-06-15 11:21 | XMS_ITS | Continuity of Care Document ---
Author Organization [facility] Address [address] [place] [address]- Care Team Providers Care Straw Hat Machine Operator Name Role Phone Christiano FANG, Tito England Primary Care Physician [phone] Encounter [facility] Date(s): 03/09/22 - 04/08/22 [facility] [address] [place], [place] [address] Allergies, Adverse Reactions, Alerts Substance [...] 12/12/21 11:12:00 EDT, Route to Pharmacy Electronically, [facility] #[id number], Partial fill upon patient request if the [...] capsule, 5 Refills, Maintenance, 03/09/22 11:52:00 EDT, [facility] #[id number], 157.5, cm, 02/09/22 19:12:00EDT, Height, 77, kg, 01/13/22 9:51:00 EDT, Dry Weight Start Date: 03/09/22 Status: Ordered ferrous sulfate 325 mg oral enteric coated tablet 1, tablet, By Mouth, Daily, # 30 tablet, Refills 0, Route to Pharmacy Electronically, [facility] #[id number], 157.5, cm, 03/26/22 13:17:00 EDT, Height, 77, [...] NEEDED FOR ANXIETY, # 60 tablet, 0 Refills,[facility] #[id number], 157.5, cm, 02/09/22 19:12:00 EDT, Height, 77, [...] a day, # 60 tablet, 3 Refills, [facility] #[id number], 157.5, cm, 03/26/22 13:17:00 EDT, Height, 77, [...] Center(Confirmed) Active Status post knee surgery, [facility] [...] ( moderate disability ) on 05/26/17; updated [facility] Back Pain Disability Scale score: 18 on 05/26/17. 10Initial Oswestry Disability Index: 50% ( severe disability ) on 03/31/16; initial Neck Disability Index: 42% ( severe disability ) on 03/31/16; initial [facility] Back Pain Disability Scale score: 46 on 03/31/16. 11On 09/30/17 underwent Tenolysis, right thumb, for Right trigger thumb by Alex Putnam M.D. at [facility] 12Retrial prescribed 12/17/20. On 01/15, [...]
--- OUTSIDE RECORDS SUMMARY | 2024-06-15 11:21 | XMS_ITS | Continuity of Care Document ---
Author Organization [facility] Address [address] [place] [address]- Care Team Providers Care Fabric Stretcher Name Role Phone Christiano FANG, Tito England Primary Care Physician Encounter [facility] Date(s): 05/26/21 - 06/25/21 [facility] [address] [place] [address]- Allergies, Adverse Reactions, Alerts Substance Reaction Severity [...] 06/23/21 17:37:00 EDT, Route to Pharmacy Electronically, [facility] #[id number], 163, cm, 06/03/21 14:20:00 EDT, Height Start [...] capsule, 2 Refills, Maintenance, 05/26/21 10:29:00 EDT, [facility] #[id number], 163, cm, 05/14/21 7:35:00 EDT, Height Start Date: 05/26/21 Status: Ordered topiramate 100 mg oral tablet 2 tablet = 200 mg, By Mouth, Daily at bedtime, # 56 tablet, 2 Refills, Maintenance, 03/17/21 15:50:00 EDT, [facility] #[id number], 163, cm, 03/17/21 13:56:00 EDT, Height Start [...] kne e surgery: 2006 & 2008 at [facility](Confirmed) Active Status post knee surgery, [facility] 05/02/01(Confirmed) 05/02/01 Active Lumbar facet joint [...] trigger thumb by Alex Putnam M.D. at [facility] 11Retrial prescribed 12/17/20. On 01/15, at [...]
--- OUTSIDE RECORDS SUMMARY | 2024-06-15 11:21 | XMS_ITS | Continuity of Care Document ---
Author Organization [facility] Address [address] [place] [address]- Care Team Providers Care Tip Puncher Name Role Phone Tammie FANG, Jo-Ann Primary Care Physician Encounter [facility] Date(s): 12/09/20 - 01/08/21 [facility] [address] [place] [address]- Attending Physician: Margaret Vargas Admitting Physician: AdmMargaret [...] tablet, 0 Refills, Maintenance, 12/23/20 17:16:00 EDT, [facility] #[id number], DX: F90.0., 1 tab qa.m, 0.5-1 tab [...] 12/23/20 17:07:00 EDT, Route to Pharmacy Electronically, [facility] #[id number], 163, cm, 12/23/20 13:59:00 EDT, Height, 64.2, kg, 03/18/19 12:29:00 EDT, Start Date: 12/23/20 Status: Ordered Ketamine 85mg [...] tablet, 0 Refills, Maintenance, 12/23/20 13:04:00 EDT, [facility] #[id number], This NMDA receptor agonist is being used to tr... Start Date: 12/23/20 Status: Ordered [place] 325 mg-10 mg oral tablet 1 - 1.5 tablets, By Mouth, Every 4 hours, PRN pain.max of 6 tabs/day., # 168 tablet, 0 Refills, Maintenance, 12/23/20 13:14:00 EDT, [facility] #[id number], Partial fill upon pt request. DX: M54.81, M54.5, M54.17, 1 - 1.5 tablets By Mouth Every 4... Start Date: 12/23/20 Status: Ordered topiramate 100 mg oral tablet 3 tablets, By Mouth, Daily at bedtime, # 84 tablet, 2 Refills, Maintenance, 11/21/20 8:46:00 EDT, [facility] #[id number], 163, cm, 11/21/20 7:51:00 EDT, Height, 64.2, [...] kne e surgery: 2006 & 2008 at [facility](Confirmed) Active Status post knee surgery, [facility] 05/02/01(Confirmed) 05/02/01 Active Lumbar facet joint [...] ( moderate disability ) on 05/26/17; updated [facility] Back Pain Disability Scale score: 18 on 05/26/17. 8Initial Oswestry Disability Index: 50% ( severe disability ) on 03/31/16; initial Neck Disability Index: 42% ( severe disability ) on 03/31/16; initial [facility] Back Pain Disability Scale score: 46 on 03/31/16. 9On 09/30/17 underwent Tenolysis, right thumb, for Right trigger thumb by Alex Putnam M.D. at [facility] 10Memantine prescribed 01/25/20. With dose escal., [...]
--- OUTSIDE RECORDS SUMMARY | 2024-06-15 11:21 | XMS_ITS | Continuity of Care Document ---
Author Organization [facility] Address [address] [place] [address]- Care Team Providers Care Flux Tube Attendant Name Role Phone Christiano FANG, Tito England Primary Care Physician [phone] Encounter [facility] Date(s): 02/09/22 - 03/11/22 [facility] [address] [place], [place] [address] Attending Physician: Margaret Vargas Admitting Physician: AdmMargaret [...] 12/12/21 11:12:00 EDT, Route to Pharmacy Electronically, [facility] #[id number], Partial fill upon patient request if the [...] drug. Start Date: 01/13/22 Status: Ordered duloxetine 60 mg oral enteric coated capsule 1 capsule = 60 mg, By Mouth, Daily, take with 30mg capsule for total 90mg daily, # 30 capsule, 5 Refills, Maintenance, 03/09/22 11:52:00 EDT, [facility] #[id number], 157.5, cm, 02/09/22 19:12:00EDT, Height, 77, kg, 01/13/22 9:51:00 EDT, Dry Weight Start Date: 03/09/22 Status: Ordered ferrous sulfate 325 mg oral enteric coated tablet 1, tablet, By Mouth, Daily, # 30 tablet, Refills 0, Route to Pharmacy Electronically, [facility] #[id number], 157.5, cm, 02/09/22 19:12:00 EDT, Height, 77, kg, 01/13/22 9:51:00 EDT, Dry Weight Start Date: 03/08/22 Status: Ordered hydrOXYzine hydrochloride 25 mg oral tablet 1-1.5 tablet, By Mouth, 3 times a day, PRN for anxiety, dose increase, # 60 tablet, 1 Refills, Maintenance, 01/09/22 13:02:00 EDT, Tablet, [facility] #[id number], Partial fill upon patient request if the [...] 2 Refills, Maintenance, 12/30/21 15:02:00 EDT, Tablet, [facility] #[id number], Partial fill upon patient request if the [...] e surgery: [address] [facility](Confirmed) Active Status post knee surgery, [facility] 05/02/01(Confirmed) 05/02/01 Active Lumbar facet [...]
--- OUTSIDE RECORDS SUMMARY | 2024-06-15 11:21 | XMS_ITS | Continuity of Care Document ---
Author Organization [facility] Address [address] [place] [address]- Care Team Providers Care Landing Signal Officer Name Role Phone Tammie FANG, Jo-Ann Primary Care Physician [phone] Encounter [facility] Date(s): 01/16/21 - 02/15/21 [facility] [address] [place] [address]- Allergies, Adverse Reactions, Alerts Substance Reaction Severity [...] tablet, 0 Refills, Maintenance, 01/29/21 9:17:00 EDT, [facility] #[id number], Please also refill fluoxetine. Thank you!, 1 [...] film, 0 Refills, Maintenance, 02/04/21 11:19:00 EDT, [facility] #[id number], Partial fill upon patient request, 163, cm, 02/04/21 8:59:00 EDT, Height, 64.2, kg, 03/18/19 12:29:00 EDT, Dry Weight Start Date: 02/04/21 Status: Ordered FLUoxetine 20 mg oral capsule 60 mg, 3, capsule, By Mouth, Daily, # 84 capsule, Refills 2, Tot. Refills 2, Maintenance, 12/23/20 17:07:00 EDT, Route to Pharmacy Electronically, [facility] #[id number], 163, cm, 12/23/20 13:59:00 EDT, Height, 64.2, kg, 03/18/19 12:29:00 EDT, . Start Date: 12/23/20 Status: Ordered HYDROmorphone 4 mg oral tablet 1 tablet = 4 mg, By Mouth, 5 times a day, PRN breakthrough pain. STOP hydrocodone/APAP, # 70 tablet, 0 Refills, Maintenance, 01/23/21 12:31:00 EDT, [facility] #[id number], Partial fill upon patient request, 163, cm, [...] tablet, 2 Refills, Maintenance, 11/21/20 8:46:00 EDT, [facility] #[id number], 163, cm, 11/21/20 7:51:00 EDT, Height, 64.2, [...] [facility](Conf[facility]) Active Status post knee surgery, [facility] 05/02/01(Confirmed) 05/02/01 Active Lumbar facet [...] ( moderate disability ) on 05/26/17; updated [facility] Back Pain Disability Scale score: 18 on 05/26/17. 8Initial Oswestry Disability Index: 50% ( severe disability ) on 03/31/16; initial Neck Disability Index: 42% ( severe disability ) on 03/31/16; initial [facility] Back Pain Disability Scale score: 46 on 03/31/16. 9On 09/30/17 underwent Tenolysis, right thumb, for Right trigger thumb by Alex Putnam M.D. at [facility] 10Retrial prescribed 12/17/20. On 01/15, at [...]
--- OUTSIDE RECORDS SUMMARY | 2024-06-15 11:21 | XMS_ITS | Continuity of Care Document ---
Author Organization [facility] Address [address] [place] [address]- Care Team Providers Care Gas Distribution And Emergency Clerk Name Role Phone Tito Alvarado MD Primary Care Physician Encounter [facility] [place] [facility] [place] [id number] Date(s): 06/23/22 - 06/30/22 [facility] [address] [place] [address]- Encounter Diagnosis Depression, major, recurrent, moderate(Discharge Diagnosis) - 06/23/22 Restless leg syndrome(Discharge Diagnosis) - 06/23/22 Hyperhidrosis(Discharge Diagnosis) - 06/23/22 Attending Physician: Tito Alvarado MD Allergies, Adverse Reactions, Alerts Substance Reaction Severity Status codeine nausea Active iodinated radiocontrast dyes N/V Active Immunizations Given and Recorded Vaccine Date Status Refusal Reason influenza virus vaccine, inactivated 1 06/02/22 Gi laurie influenza virus vaccine, inactivated 06/05/18 Mars rded influenza virus vaccine, inactivated 06/17/17 Mars rded [id number] 12y+ bivalent booster vax 03/27/22 Recorded SARS-CoV-2 (COVID-19) mRNA BNT-162b2 vac 08/21/21 Recorded SARS-CoV-2 (COVID-19) Ad26 vaccine 12/02/20 Given Influenza Virus Vaccine (oldterm) 07/13/20 Recorde d zoster vaccine, inactivated 11/20/18 Recorded zoster vaccine, inactivated 09/17/18 Recorded tetanus/diphtheria/pertussis, acel(Tdap) 06/05/18 Recorded 1Result Comment: [facility]:[id number] Medications AutoASV EPAPmin 8 EPAPmax 12 PSmin [...] Refills, Maintenance, 06/23/22 14:08:00 EDT, ER Tablet, [facility] #[id number], Partial fillupon patient request if the prescription [...] capsule, 5 Refills, Maintenance, 03/09/22 11:52:00 EDT, [facility] #[id number], 157.5, cm, 02/09/22 19:12:00EDT, Height, 77, kg, 01/13/22 9:51:00 EDT, Dry Weight Start Date: 03/09/22 Status: Ordered ferrous sulfate 325 mg oral enteric coated tablet 1, tablet, By Mouth, Daily, # 30 tablet, Refills 1, Maintenance, 05/06/22 11:08:00 EDT, Route to Pharmacy Electronically, [facility] #[id number], 157.5, cm, 05/01/22 9:45:00 EDT, Height, 83.4, [...] 60 tablet, 2 Refills,Maintenance, 05/06/22 11:08:00 EDT, [facility] #[id number], 157.5, cm, 05/01/22 9:45:00 EDT, Height, 83.4, kg, 05/01/22 9:11:00 EDT, Dry Weight Start Date: 05/06/22 Status: Ordered ipratropium nasal 21 mcg/inh spray See Instructions, PRN Nasal Congestion, 1 spray each nostril BID, # 1 each, 4 Refills, Maintenance,06/04/22 11:24:00 EDT, [facility] #[id number], Partial fill upon patient request if the [...] 90 tablet, 3 Refills, 06/23/22 14:01:00 EDT, [id number], 157.5, cm, 06/23/22 13:25:00 EDT, Height, 81.3, kg, 06/23/22 13:25:00 EDT, Dry Weight Start Date: 06/23/22 Status: Ordered VESIcare 10 mg oral tablet 1 tablet = 10 mg, By Mouth, Daily at bedtime, Rx by Dr Darleen Garcai (urology) Start Date: 08/13/16 Status: Ordered Vitamin [...] arthroscopic knee surgery: 2006 & 2009 at [facility] Confirmed Active Status post knee surgery, [facility] 05/02/01 Confirmed 05/02/01 Active Lumbar [...] Effective Dates Health Status Clinical Service Informant Depression, major, recurrent, moderate Discharge Diagnosis 06/23/22 Restless leg syndrome Discharge Diagnosis 06/23/22 Hyperhidrosis Discharge Diagnosis 06/23/22 Vital Signs Most recent to oldest [Reference Range]: 1 Height 157.5 cm (06/23/22 1:25 PM) Weight 81.3 kg (06/23/22 1:25 PM) Oxygen Saturation [94-100 %] 99 % (06/23/22 1:25 PM) Pulse Rate [55-90 bpm] 97 bpm *H* (06/23/22 1:25 PM) Body Mass Index [18.5-24.99 kg/m2] 32.77 kg/m2 *>HHI* (06/23/22 1:25 PM) Blood Pressure [90-138/55-84 mm Hg] 123/ 80mm Hg (06/23/22 1:25 PM) Temperature [96.8-100.4 DegF] 97.1 DegF (06/23/22 1:25 PM) Mode of Delivery (Oxygen) Room air (06/23/22 1:25 PM) Blood pressure sites Arm, right (06/23/22 1:25 PM) Temperature Route Temporal (06/23/22 1:25 PM) Dry Weight 81.3 kg (06/23/22 1:25 PM) Weight Obtained Via Standing scale (06/23/22 1:25 PM) Social History Social History Type Response Smoking Status Former smoker; Stopp ed at age: 50; entered on: 03/11/17 Sex Female Note * Christie Loyd: PERFORM, SIGN, VERIFY Event Display: Patient Education/Instruction Authored Date: [id number] [facility] *[facility] Clinical Summary Name FAUSTO VELAZCO Age 56 Years 1965 PCP [id number] Visit Date 06/23/2022 13:19:00 Additional Instructions: Scheduled Appointments?? Future Appointments ?*[facility] ?[address]??[place],??[place],??[address] ?Phone:??--?Fax:??-- ?Appt. Date:??07/24/2022?11:15 AM ?Scheduled Provider:??Tito Alvarado MD ?*[facility] ?[address],??[place],??[address] ?Phone:??--?Fax:??-- ?Appt. Date:??08/07/2022?10:15 AM ?Scheduled Provider:??Tito Alvarado MD Follow-Up Instructions ?? Diagnosis Sprain of unspecified ligament of left ankle, initial encounter Medications: Please continue your medications until treatment is completed or stopped by your provider. Discuss any questions related to medications with your provider. New Medications [facility] #[id number], [address], [place] [id number], [phone] BuPROpion (buPROPion 100 mg/12 hours (SR) oral tablet, extended release) 1 tab PO daily for 3 days,then increase to 1 tab PO BID thereafter. Refills: 1. Next Dose: Pramipexole (pramipexole 0.125 mg oral tablet) 3 tab(s) Oral Daily. 2-3 hours prior to bedtime. dose increase. Refills: 3. Next Dose: Medications to Continue with No Changes - Durable Medical Equipment (Knee walker scooter rental-for 4 weeks) to be used for ambulation for left ankle sprain r/o fracture, unable to use crutches due to left hand surgery complications. Refills: 0. Next Dose: These medications were not printed [...] as needed Pain , Moderate. Next Dose: Solifenacin (VESIcare 10 mg oral tablet) 1 tab(s) Oral Daily at Bedtime. Rx by Dr Darleen Garcia (urology). Next Dose: No Longer Take the Following Medications Diclofenac Topical (diclofenac 1% topical gel) 1 gram Topically 4 times a day as needed Pain , Moderate. left ankle, with food. Refills: 1. Allergy Info:?? iodinated radiocontrast dyes; codeine Medications Given This Visit Future Orders ?No future orders Vital Signs Height 157.5 cm Weight 81.3 kg BMI 32.77 kg/m2 Blood Pressure 123 mm Hg/80 mm Hg Temperature 97.1 DegF Pulse Rate 97 bpm Respiratory Rate 02 Sat Mode of Delivery 99 %/Room air You can now view a summary of your hospital visit from the comfort of your home through a free online portal called [facility]. [employer] is a website that allows you to securely view your medical information including discharge summary, medications and follow-up visits. ??You can alsosend a secure electronic message to your doctor???s office to request appointments, renew medications or just ask a question. You can enroll at [email or web address] or register during your next office visit. [...] primary care provider, you may find a [facility] provider by calling [facility] at [phone]. For information about the plan of care including goals and instructions for your diagnosis, please see the patient education orders section of this document. Patient Education Materials?? The content of this educational material or handout may have been modified, supplemented, or adapted from its original content and format to support your individualized medical care. Patient Care team information Care Team Personnel Name: Cj Arthur Jr, MD Position: [facility] Anesthesiology MD Member Role: Lifetime Consulting Physician Address: Address: [address] [place] [address] Anesthesia Services [place], [place] - Name: Tito Alvarado MD Position: [facility] Primary Care Physician Member Role: PCP Address: Address: [address] [place] [address] Adult & Pediatric Medicine [place], [place] - Care Team Related Persons Name: BRAYAN VELAZCO Address: home [address], [place] Name: NOEL LIZAMA Address: home [address] [place] [id number] Name: FADY NIELSON Address: [address] [place] [address]
--- OUTSIDE RECORDS SUMMARY | 2024-06-15 11:21 | XMS_ITS | Continuity of Care Document ---
Author Organization [facility] Address [address] [place] [address]- Care Team Providers Care Manager Deli Name Role Phone Tammie FANG, Jo-Ann Primary Care Physician Encounter [facility] [place] Date(s): 08/15/20 - 11/16/20 [facility] [address] [place] [address] Attending Physician: Diana Bill DO Admitting Physician: Adina Scott MD Referring Physician: Adina Scott MD Allergies, Adverse Reactions, Alerts Substance Reaction [...] tablet, 0 Refills, Maintenance, 10/08/20 10:57:00 EST, [facility] #[id number], DX: F90.0., 1 tab qa.m, 0.5-1 tab [...] 10/08/20 10:57:00 EST, Route to Pharmacy Electronically, [facility] #[id number], 163, cm, 10/08/20 7:51:00 EST, Height, 64.2, kg, 02/21... Start Date: 10/08/20 Status: Ordered FLUoxetine 40 mg oral capsule 1 capsule = 40 mg, By Mouth, Daily, # 30 capsule, 1 Refills, Maintenance, 10/23/20 17:26:00 EST, [facility] #[id number], 163, cm, 10/23/20 14:46:00 EST, Height, 64.2, [...] 7:47:00 EDT Start Date: 05/21/20 Status: Ordered [place] 325 mg-10 mg oral tablet 1 - 1.5 tablets, By Mouth, Every 4 hours, PRN pain.max of 6 tabs/day., # 84 tablet, 0 Refills, Maintenance, 10/08/20 10:57:00 EST, [facility] #[id number], Partial fill upon pt request. DX: M54.81, M54.5, M54.17, 1 - 1.5 tablets By Mouth Every 4 h... Start Date: 10/08/20 Status: Ordered topiramate 100 mg oral tablet 3 tablets, By Mouth, Daily at bedtime, # 84 tablet, 2 Refills, Maintenance, 07/25/20 14:36:00 EST, [facility] #[id number], 163, cm, 07/25/20 13:49:00 EST, Height, 64.2, [...] [facility](Confirmed) Active Status post knee surgery, [facility] 05/02/01(Confirmed) 05/02/01 Active Insomnia(Confirmed) Active Lumbar facet [...] Putnam M.D. at [facility] 10[place]antine prescribed 01/25/20. With dose escal., pn [...]
--- OUTSIDE RECORDS SUMMARY | 2024-06-15 11:21 | XMS_ITS | Continuity of Care Document ---
Author Organization [facility] Address [address] [place] [address]- Care Team Providers Care Trimmer Tailer Name Role Phone Christiano FANG, Tito England Primary Care Physician [phone] Encounter [facility] Date(s): 09/11/21 - 10/11/21 [facility] [address] [place] [address]- Allergies, Adverse Reactions, Alerts Substance Reaction Severity [...] Refills, Maintenance, 10/02/21 15:44:00 EST, EC Capsule, [facility] #[id number], Partial fill upon patient request if the prescription... Start Date: 10/02/21 Status: Ordered duloxetine 60 mg oral enteric coated capsule 1 capsule = 60 mg, By Mouth, Daily, fill when patient next requests. To be taken with 30mg cap for total 90mg daily dose, # 30 capsule, 3 Refills, Maintenance, 10/02/21 15:45:00 EST, [facility] #[id number], 163, cm, 08/27/21 9:26:00 EST, Height,... Start Date: 10/02/21 Status: Ordered hydrOXYzine hydrochloride 25 mg oral tablet 1-1.5 tablet, By Mouth, 3 times a day, PRN for anxiety, dose increase, # 60 tablet, 1 Refills, Maintenance, 10/08/21 14:51:00 EST, Tablet, [facility] #[id number], Partial fill upon patient request if the [...] Gm, 1 Refills, Maintenance, 09/17/21 13:09:00 EST, [facility] #[id number], Partial fill upon patient request if the prescription is for a schedule II opioid drug., 163, cm, 08/27/21 9:26:00 EST, Height, 63... Start Date: 09/17/21 Status: Ordered NuLYTELY with Flavor Packs oral powder for reconstitution See Instructions, Drink 240mL every 15-20 minutes until first half is gone. Repeat 6 hours prior toprocedure., # 4,000 mL, 0 Refills, Maintenance, 09/17/21 13:09:00 EST, [facility] #[id number],Partial fill upon patient request if the prescript... [...] Gm, 0 Refills, Maintenance, 09/23/21 13:03:00 EST, [facility] #[id number], Partial fill upon patient request if the [...] 08/08/21 16:04:00 EST, Route to Pharmacy Electronically, [facility] #[id number], Partial fi... Start Date: 08/08/21 Stop Date: 11/06/21 Status: Ordered topiramate 100 mg oral tablet 3 tablet = 300 mg, By Mouth, Daily at bedtime, # 84 tablet, 1 Refills, Maintenance, 08/26/21 14:05:00 EST, [facility] #[id number], 163, cm, 08/06/21 14:34:00 EST, Height, 63, [...] Refills, Soft Stop, 08/19/21 12:22:00 EST, Tablet, [facility] #42539, Partial fill upon patient request if the [...] [facility] Active Status post knee surgery, [facility] 05/02/01(Confirmed) 05/02/01 Active Lumbar facet [...] moderate disability ) on 05/26/17; updated [facility] Back Pain Disability Scale score: 18 on 05/26/17. 10Initial Oswestry Disability Index: 50% ( severe disability ) on 03/31/16; initial Neck Disability Index: 42% ( severe disability ) on 03/31/16; initial [facility] Back Pain Disability Scale score: 46 on 03/31/16. 11On 09/30/17 underwent Tenolysis, right thumb, for Right trigger thumb by Alex Putnam M.D. at [facility] 12Retrial prescribed 12/17/20. On 01/15, [...]
--- OUTSIDE RECORDS SUMMARY | 2024-06-15 11:21 | XMS_ITS | Continuity of Care Document ---
Author Organization [facility] Address [address] [place] [address]- Care Team Providers Care Buckle Stringer Name Role Phone Tito Alvarado MD Primary Care Physician [place] [facility] [place]11[place] - 09/10/21 [facility] [address] [place] [address]- Allergies, Adverse Reactions, Alerts Substance Reaction Severity [...] capsule, 3 Refills, Maintenance, 07/14/21 9:37:00 EST, [facility] #[id number], 163, cm, 07/02/21 14:28:00 EST, Height Start [...] 08/08/21 16:04:00 EST, Route to Pharmacy Electronically, [facility] #[id number], Partial fi... Start Date: 08/08/21 Stop Date: 11/06/21 Status: Ordered topiramate 100 mg oral tablet 3 tablet = 300 mg, By Mouth, Daily at bedtime, # 84 tablet, 1 Refills, Maintenance, 08/26/21 14:05:00 EST, [facility] #[id number], 163, cm, 08/06/21 14:34:00 EST, Height, 63, [...] Refills, Soft Stop, 08/19/21 12:22:00 EST, Tablet, [facility] #[id number], Partial fill upon patient request if the [...] [facility](Confirmed) Active Status post knee surgery, [facility] 05/02/01(Confirmed) 05/02/01 Active Lumbar facet joint [...]
--- OUTSIDE RECORDS SUMMARY | 2024-06-15 11:21 | XMS_ITS | Continuity of Care Document ---
Author Organization [facility] Address [address] [place] [address]- Care Team Providers Care Performance Consultant Name Role Phone Christiano FANG, Tito England Primary Care Physician Encounter [facility] [place] Date(s): 08/09/21 - 09/08/21 [facility] [address] [place], [place] [address] Allergies, Adverse Reactions, Alerts Substance [...] capsule, 3 Refills, Maintenance, 07/14/21 9:37:00 EST, [facility] #[id number], 163, cm, 07/02/21 14:28:00 EST, Height Start [...] 08/08/21 16:04:00 EST, Route to Pharmacy Electronically, [facility] #[id number], Partial fi... Start Date: 08/08/21 Stop Date: 11/06/21 Status: Ordered topiramate 100 mg oral tablet 3 tablet = 300 mg, By Mouth, Daily at bedtime, # 84 tablet, 1 Refills, Maintenance, 08/26/21 14:05:00 EST, [facility] #[id number], 163, cm, 08/06/21 14:34:00 EST, Height, 63, kg, 08/05/21 10:14:00 EST, Dry Weight Start Date: 08/26/21 Status: Ordered VESIcare 10 mg oral tablet 1 tablet = 10 mg, By Mouth, Daily, Rx by Dr Darlene Garcia (urology) Start Date: 08/13/16 Status: Ordered Vitamin D3 1000 intl units oral tablet 1 tablet = 1,000 International_Units, By Mouth, Daily, 0 Refills, Maintenance, 06/14/12 8:11:58 EDT Start Date: 06/14/12 Status: Ordered ZyrTEC 10 mg oral tablet 1 tablet = 10 mg, By Mouth, Once, [address], # 1 tablet, 0 Refills, Soft Stop, 08/19/21 12:22:00 EST, Tablet, [facility] #[id number], Partial fill upon patient request if the [...] [facility] [place]([facility]) Active Status post knee surgery, [facility] 05/02/01(Confirmed) 05/02/01 Active Lumbar facet [...] moderate disability ) on 05/26/17; updated [facility] Back Pain Disability Scale score: 18 on 05/26/17. 10Initial Oswestry Disability Index: 50% ( severe disability ) on 03/31/16; initial Neck Disability Index: 42% ( severe disability ) on 03/31/16; initial [facility] Back Pain Disability Scale score: 46 on 03/31/16. 11On 09/30/17 underwent Tenolysis, right thumb, for Right trigger thumb by Alex Putnam M.D. at [facility] 12Retrial prescribed 12/17/20. On 01/15, at [...]
--- OUTSIDE RECORDS SUMMARY | 2024-06-15 11:21 | XMS_ITS | Continuity of Care Document ---
Author Organization [facility] Address [address] [place] [address]- Care Team Providers Care Display Fabrication Supervisor Name Role Phone Tito Alvarado MD Primary Care Physician Encounter [facility] [place] Date(s): 02/09/22 - 02/16/22 [facility] [address] [place] [address]- Encounter Diagnosis Obstructive sleep apnea(Discharge Diagnosis) - 02/09/22 Hidradenitis(Discharge Diagnosis) - 02/09/22 Mass of left side of neck(Discharge Diagnosis) - 02/09/22 Memory deficits(Discharge Diagnosis) - 02/09/22 Cyst of ovary(Discharge Diagnosis) - 02/09/22 Attending Physician: Tito Alvarado MD Allergies, Adverse [...] 12/12/21 11:12:00 EDT, Route to Pharmacy Electronically, [facility] #[id number], Partial fill upon patient request if the [...] Mouth, Daily, # 30 capsule, 5 Refills, [facility] #[id number], 157.5, cm, 01/09/22 11:36:00 EDT, Height, 77, kg, 01/13/22 9:51:00 EDT, Dry Weight Start Date: 02/05/22 Status: Ordered ferrous sulfate 325 mg oral enteric coated tablet 325 mg, 1, tablet, By Mouth, Daily, # 30 tablet, Refills 2, Tot. Refills 2, Maintenance, 12/05/21 11:39:00 EDT, Route to Pharmacy Electronically, [facility] #[id number], Partial fill upon patient request if the prescription is for a schedule II o... Start Date: 12/05/21 Status: Ordered hydrOXYzine hydrochloride 25 mg oral tablet 1-1.5 tablet, By Mouth, 3 times a day, PRN for anxiety, dose increase, # 60 tablet, 1 Refills, Maintenance, 01/09/22 13:02:00 EDT, Tablet, [facility] #[id number], Partial fill upon patient request if the [...] 2 Refills, Maintenance, 12/30/21 15:02:00 EDT, Tablet, [facility] #[id number], Partial fill upon patient request if the [...] [facility](Confirmed) Active Status post knee surgery, [facility] [...] disability ) on 03/31/16; initial [facility] Back Pain Disability Scale score: 46 [...] Effective Dates Health Status Clinical Service Informant Obstructive sleep apnea Discharge Diagnosis 02/09/22 Hidradenitis Discharge Diagnosis 02/09/22 Mass of left side of neck Discharge Diagnosis 02/09/22 Memory deficits Discharge Diagnosis 02/09/22 Cyst of ovary Discharge Diagnosis 02/09/22 Vital Signs Most recent to oldest [Reference Range]: 1 Height 157.5 cm (02/09/22 7:12 PM) Weight 75.7 kg (02/09/22 7:12 PM) Social History Social History Type Response Smoking Status Former smoker; Stopp ed at age: 50; entered on: 03/11/17 Sex Female
--- OUTSIDE RECORDS SUMMARY | 2024-06-15 11:21 | XMS_ITS | Continuity of Care Document ---
Author Organization [facility] Address [address] [place] [address]- Care Team Providers Care Dope Worker Name Role Phone Christiano FANG, Tito England Primary Care Physician Encounter [facility] Date(s): 08/28/21 - 09/27/21 [facility] [address] [place] [address]- Allergies, Adverse Reactions, Alerts Substance Reaction Severity [...] capsule, 3 Refills, Maintenance, 07/14/21 9:37:00 EST, [facility] #[id number], 163, cm, 07/02/21 14:28:00 EST, Height Start Date: 07/14/21 Status: Ordered magnesium oxide 500 mg oral tablet 1 tablet = 500 mg, By Mouth, Daily, 0 Refills, Maintenance, 05/21/20 7:47:00 EDT Start Date: 05/21/20 Status: Ordered Metamucil 3.4 gm/5.2 gm oral powder for reconstitution = 3.4 Gm, By Mouth, 2 times a day, # 450 Gm, 1 Refills, Maintenance, 09/17/21 13:09:00 EST, [facility] #[id number], Partial fill upon patient request if the prescription is for a schedule II opioid drug., 163, cm, 08/27/21 9:26:00 EST, Height, 63... Start Date: 09/17/21 Status: Ordered NuLYTELY with Flavor Packs oral powder for reconstitution See Instructions, Drink 240mL every 15-20 minutes until first half is gone. Repeat 6 hours prior toprocedure., # 4,000 mL, 0 Refills, Maintenance, 09/17/21 13:09:00 EST, [facility] #[id number],Partial fill upon patient request if the prescript... [...] Gm, 0 Refills, Maintenance, 09/23/21 13:03:00 EST, [facility] #[id number], Partial fill upon patient request if the [...] 08/08/21 16:04:00 EST, Route to Pharmacy Electronically, [facility] #[id number], Partial fi... Start Date: 08/08/21 Stop Date: 11/06/21 Status: Ordered topiramate 100 mg oral tablet 3 tablet = 300 mg, By Mouth, Daily at bedtime, # 84 tablet, 1 Refills, Maintenance, 08/26/21 14:05:00 EST, [facility] #[id number], 163, cm, 08/06/21 14:34:00 EST, Height, 63, [...] Refills, Soft Stop, 08/19/21 12:22:00 EST, Tablet, [facility][id number], Partial fill upon patient request if the [...] kne e surgery: 2006 & 2008 at [facility](Confirmed) Active Status post knee surgery, [facility] 05/02/01(Confirmed) 05/02/01 Active Lumbar facet joint [...] trigger thumb by Alex Putnam M.D. at [facility] 12Retrial prescribed 12/17/20. On 01/15, [...]
--- OUTSIDE RECORDS SUMMARY | 2024-06-15 11:21 | XMS_ITS | Continuity of Care Document ---
Author Organization [facility] Address [address] [place] [address]- Care Team Providers Care Mail Messenger Contractor Name Role Phone Tito Alvarado MD Primary Care Physician [phone] [id number] Date(s): 12/05/21 - 12/12/21 [facility] [address] [place], [place] [address] Encounter Diagnosis Restless leg syndrome(Discharge Diagnosis) - 12/05/21 Memory deficit(Discharge Diagnosis) - 12/05/21 Chronic low back pain(Discharge Diagnosis) - 12/05/21 Neck pain, mechanical(Discharge Diagnosis) - 12/05/21 Attending Physician: Tito Alvarado MD Allergies, Adverse [...] 12/12/21 11:12:00 EDT, Route to Pharmacy Electronically, [facility] #[id number], Partial fill upon patient request if the [...] Refills, Maintenance, 10/02/21 15:44:00 EST, EC Capsule, [facility] #[id number], Partial fill upon patient request if the prescription... Start Date: 10/02/21 Status: Ordered duloxetine 60 mg oral enteric coated capsule 1 capsule = 60 mg, By Mouth, Daily, fill when patient next requests. To be taken with 30mg cap for total 90mg daily dose, # 30 capsule, 3 Refills, Maintenance, 10/02/21 15:45:00 EST, [facility] #[id number], 163, cm, 08/27/21 9:26:00 EST, Height,... Start Date: 10/02/21 Status: Ordered ferrous sulfate 325 mg oral enteric coated tablet 325 mg, 1, tablet, By Mouth, Daily, # 30 tablet, Refills 2, Tot. Refills 2, Maintenance, 12/05/21 11:39:00 EDT, Route to Pharmacy Electronically, [facility] #[id number], Partial fill upon patient request if the prescription is for a schedule II o... Start Date: 12/05/21 Status: Ordered hydrOXYzine hydrochloride 25 mg oral tablet 1-1.5 tablet, By Mouth, 3 times a day, PRN for anxiety, dose increase, # 60 tablet, 1 Refills, Maintenance, 10/08/21 14:51:00 EST, Tablet, [facility] #[id number], Partial fill upon patient request if the prescription is for a schedule II opioid d... Start Date: 10/08/21 Status: Ordered magnesium oxide 400 mg oral tablet 1 tablet = 400 mg, By Mouth, Daily, for 14 days, # 14 tablet, 0 Refills, Acute 12/17/21 14:08:00 EDT, 12/03/21 14:08:00 EDT, Tablet, [facility] #[id number], Partial fill upon patient request if the prescription is for a schedule II opioid drug.,... Start Date: 12/03/21 Stop Date: 12/17/21 Status: Ordered magnesium oxide 500 mg oral [...] 11/25/21 18:16:00 EDT, Route to Pharmacy Electronically, [facility] #[id number], Partial fill upon patient request if the [...] tablet, 1 Refills,Maintenance, 12/05/21 11:52:00 EDT, Tablet, [facility] #[id number], Partial fill upon patient request if the prescription is for a schedule II opi... Start Date: 12/05/21 Status: Ordered tiZANidine 4 mg oral tablet 2 mg, 0.5, tablet, By Mouth, 3 times a day, PRN, # 45 tablet, Refills 0, Tot. Refills 0, Maintenance, Spasm, 11/25/21 18:16:00 EDT, Route to Pharmacy Electronically, [facility] #[id number], Partial fill upon patient request if the [...] [facility]) Active [facility] severe disability ) on 03/31/16; initial [facility] Back Pain Disability Scale score: 46 on 03/31/16. 11On 09/30/17 underwent Tenolysis, right thumb, for Right trigger thumb by Alex Putnam M.D. at [facility] 12Retrial prescribed 12/17/20. On 01/15, at [...] Effective Dates Health Status Clinical Service Informant Restless leg syndrome Discharge Diagnosis 12/05/21 Memory deficit Discharge Diagnosis 12/05/21 Chronic low back pain Discharge Diagnosis 12/05/21 Neck pain, mechanical Discharge Diagnosis 12/05/21 Vital Signs Most recent to oldest [Reference Range]: 1 Height 157.5 cm (12/05/21 11:18 AM) Weight 75.4 kg (12/05/21 11:18 AM) Oxygen Saturation [94-100 %] 100 % (12/05/21 11:18 AM) Pulse Rate [55-90 bpm] 85 bpm (12/05/21 11:18 AM) Body Mass Index [18.5-24.99] 30.4 *>HHI* (12/05/21 11:18 AM) Blood Pressure [90-138/55-84 mm Hg] 121/ 73mm Hg (12/05/21 11:18 AM) Temperature [96.8-100.4 DegF] 97.5 DegF (12/05/21 11:18 AM) Mode of Delivery (Oxygen) Room air (12/05/21 11:18 AM) Blood pressure sites Arm, right (12/05/21 11:18 AM) Temperature Route Temporal (12/05/21 11:18 AM) Dry Weight 75.4 kg (12/05/21 11:18 AM) Weight Obtained Via Standing scale (12/05/21 11:18 AM) Social History Social History Type Response Smoking Status Former smoker; Stopp ed at age: 50; entered on: 03/11/17 Sex Female
--- OUTSIDE RECORDS SUMMARY | 2024-06-15 11:21 | XMS_ITS | Continuity of Care Document ---
Author Organization [facility] Address [address] [place] [address]- Care Team Providers Care Candle Making Supervisor Name Role Phone Christiano FANG, Tito England Primary Care Physician [place] [facility] [place] Date(s): 09/28/22 - 10/28/22 [facility] [address] [place], [place] [address] Allergies, Adverse Reactions, Alerts Substance Reaction Severity Status codeine nausea Active iodinated radiocontrast dyes N/V Active Immunizations Given and Recorded Vaccine Date Status Refusal Reason influenza virus vaccine, inactivated 1 06/02/22 Gi laurie influenza virus vaccine, inactivated 06/05/18 Mars rded influenza virus vaccine, inactivated 06/17/17 Mars rded [id number] 12y+ bivalent booster vax 03/27/22 Recorded SARS-CoV-2 (COVID-19) mRNA BNT-162b2 vac 08/21/21 Recorded SARS-CoV-2 (COVID-19) Ad26 vaccine 12/02/20 Given Influenza Virus Vaccine (oldterm) 07/13/20 Recorde d zoster vaccine, inactivated 11/20/18 Recorded zoster vaccine, inactivated 09/17/18 Recorded tetanus/diphtheria/pertussis, acel(Tdap) 06/05/18 Recorded 1Result Comment: [facility]:[id number] Medications AutoASV EPAPmin 8 EPAPmax 12 PSmin [...] Refills, Maintenance, 06/23/22 14:08:00 EDT, ER Tablet, [facility] #[id number], Partial fillupon patient request if the prescription [...] 30 capsule, 5 Refills, 08/14/22 12:55:00 EST, [facility] #[id number], 157.5, cm, 08/07/22 10:53:00 EST, Height, 82.8, kg, 08/07/22 10:17:00 EST, Dry Weight Start Date: 08/14/22 Status: Ordered duloxetine 60 mg oral enteric coated capsule 1 capsule = 60 mg, By Mouth, Daily, take with 30mg capsule for total 90mg daily, # 30 capsule, 5 Refills, Maintenance, 03/09/22 11:52:00 EDT, [facility] #[id number], 157.5, cm, 02/09/22 19:12:00EDT, Height, 77, kg, 01/13/22 9:51:00 EDT, Dry Weight Start Date: 03/09/22 Status: Ordered ferrous sulfate 325 mg oral enteric coated tablet 1, tablet, By Mouth, Daily, # 30 tablet, Refills 1, Maintenance, 05/06/22 11:08:00 EDT, Route to Pharmacy Electronically, [facility] #[id number], 157.5, cm, 05/01/22 9:45:00 EDT, Height, 83.4, kg, 05/01/22 9:11:00 EDT, Dry Weight Start Date: 05/06/22 Status: Ordered hydrOXYzine hydrochloride 25 mg oral tablet 1 TO 1 AND 1/2 TABLETS, By Mouth, 3 times a day, PRN NEEDED FOR ANXIETY, # 60 tablet, 2 Refills,Maintenance, 10/05/22 20:26:00 EST, [facility] #[id number], 157.5, cm, 08/07/22 10:53:00 EST, Height, 82.8, kg, 08/07/22 10:17:00 EST, Dry Weight Start Date: 10/05/22 Status: Ordered ipratropium nasal 21 mcg/inh spray See Instructions, PRN Nasal Congestion, 1 spray each nostril BID, # 1 each, 4 Refills, Maintenance,06/04/22 11:24:00 EDT, [facility] #[id number], Partial fill upon patient request if the [...] Refills, Maintenance, 09/02/22 23:37:00 EST, CR Tablet, [facility] #[id number], Partial fill upon patient request if the [...] tablet, 3 Refills, Maintenance, 10/12/22 18:54:00 EST, [facility] #[id number], 157.5, cm, 08/07/22 10:53:00 EST, Height, 82.8, [...] Confirmed Active Status post knee surgery, [facility] 05/02/01 Confirmed 05/02/01 Active Lumbar facet joint [...] trigger thumb by Alex Putnam M.D. at [facility] 7Retrial prescribed 12/17/20. On 01/15, at [...] Member Role: Lifetime Consulting Physician Address: Address: [address] [place] [address] [place] [address]- Name: Tito Alvarado MD Position: [facility] Primary Care Physician Member Role: PCP Address: Address: [address] [place] [address] Adult & [place] [address]- Care Team Related Persons Name: BRAYAN VELAZCO Address: home [address] [place] [address] Name: NOEL LIZAMA Address: home [address] [place] [id number] Name: FADY NIELSON Address: home [address] [place] [address]
--- OUTSIDE RECORDS SUMMARY | 2024-06-15 11:22 | XMS_ITS | Continuity of Care Document ---
Author Organization [facility] Address [address] [place] [address]- Care Team Providers Care Polish Compounder Name Role Phone Christiano FANG, Tito England Primary Care Physician Encounter [facility] ACCT R [id number] Date(s): 04/23/22 - 05/23/22 [facility] [address] [place], [place] [address] Allergies, Adverse Reactions, [...] capsule, 5 Refills, Maintenance, 03/09/22 11:52:00 EDT, [facility] #[id number], 157.5, cm, 02/09/22 19:12:00EDT, Height, 77, kg, 01/13/22 9:51:00 EDT, Dry Weight Start Date: 03/09/22 Status: Ordered ferrous sulfate 325 mg oral enteric coated tablet 1, tablet, By Mouth, Daily, # 30 tablet, Refills 1, Maintenance, 05/06/22 11:08:00 EDT, Route to Pharmacy Electronically, [facility] #[id number], 157.5, cm, 05/01/22 9:45:00 EDT, Height, 83.4, [...] 60 tablet, 2 Refills,Maintenance, 05/06/22 11:08:00 EDT, [facility] #[id number], 157.5, cm, 05/01/22 9:45:00 EDT, Height, 83.4, [...] a day, # 60 tablet, 3 Refills, [facility] #[id number], 157.5, cm, 03/26/22 13:17:00 EDT, Height, 77, [...] arthroscopic knee surgery: 2006 & 2009 at [facility] Confirmed Active Status post [...] ( moderate disability ) on 05/26/17; updated [facility] Back Pain Disability Scale score: 18 on 05/26/17. 10Initial Oswestry Disability Index: 50% ( severe disability ) on 03/31/16; initial Neck Disability Index: 42% ( severe disability ) on 03/31/16; initial [facility] Back Pain Disability Scale score: 46 on 03/31/16. 11On 09/30/17 underwent Tenolysis, right thumb, for Right trigger thumb by Alex Putnam M.D. at [facility] 12Retrial prescribed 12/17/20. On 01/15, at [...] Name: Christiano FANG, Tito England Address: Address: [address] [place] [address] Adult & Pediatric Medicine [place], [place] [address]
--- OUTSIDE RECORDS SUMMARY | 2024-06-15 11:22 | XMS_ITS | Continuity of Care Document ---
Author Organization [facility] Address [address] [place] [address]- Care Team Providers Care Radio Frequency Design Engineer Name Role Phone Christiano FANG, Tito England Primary Care Physician Encounter [facility] Date(s): 11/03/21 - 11/03/[address] [address]- Discharge Disposition: A-D/C Home Attending Physician: Israel Francois MD Admitting Physician: Israel Francois MD Referring Physician: Israel Francois MD Allergies, Adverse Reactions, Alerts Substance Reaction [...] Refills, Maintenance, 10/02/21 15:44:00 EST, EC Capsule, [facility] #[id number], Partial fill upon patient request if the prescription... Start Date: 10/02/21 Status: Ordered duloxetine 60 mg oral enteric coated capsule 1 capsule = 60 mg, By Mouth, Daily, fill when patient next requests. To be taken with 30mg cap for total 90mg daily dose, # 30 capsule, 3 Refills, Maintenance, 10/02/21 15:45:00 EST, [facility] #[id number], 163, cm, 08/27/21 9:26:00 EST, Height,... Start Date: 10/02/21 Status: Ordered hydrOXYzine hydrochloride 25 mg oral tablet 1-1.5 tablet, By Mouth, 3 times a day, PRN for anxiety, dose increase, # 60 tablet, 1 Refills, Maintenance, 10/08/21 14:51:00 EST, Tablet, [facility] #[id number], Partial fill upon patient request if the [...] Gm, 1 Refills, Maintenance, 09/17/21 13:09:00 EST, [facility] #[id number], Partial fill upon patient request if the prescription is for a schedule II opioid drug., 163, cm, 08/27/21 9:26:00 EST, Height, 63... Start Date: 09/17/21 Status: Ordered NuLYTELY with Flavor Packs oral powder for reconstitution See Instructions, Drink 240mL every 15-20 minutes until first half is gone. Repeat 6 hours prior toprocedure., # 4,000 mL, 0 Refills, Maintenance, 09/17/21 13:09:00 EST, [facility] #[id number],Partial fill upon patient request if the prescript... [...] Gm, 0 Refills, Maintenance, 09/23/21 13:03:00 EST, [facility] #[id number], Partial fill upon patient request if the [...] 08/08/21 16:04:00 EST, Route to Pharmacy Electronically, [facility] #[id number], Partial fi... Start Date: 08/08/21 Stop Date: 11/06/21 Status: Ordered topiramate 100 mg oral tablet 3 tablet = 300 mg, By Mouth, Daily at bedtime, # 84 tablet, 1 Refills, Maintenance, 08/26/21 14:05:00 EST, [facility] #[id number], 163, cm, 08/06/21 14:34:00 EST, Height, 63, [...] Refills, Soft Stop, 08/19/21 12:22:00 EST, Tablet, [facility] #[id number], Partial fill upon patient request if the [...] e surgery: 2006 & 2008 at [facility](Confirmed) Active Status post knee surgery, [facility] [...] Alex Putnam M.D. at [facility] 12Retrial prescribed 12/17/20. On 01/15, at [...] on 03/31/2016 15ACE score: 0 on 07/01/17 Procedures Procedure Date Related Diagnosis Body Site Status Colonoscopy 11/03/21 Completed Vital Signs Most recent to oldest [Reference Range]: 1 2 3 Height 158 cm (11/03/21 3:46 PM) Oxygen Saturation [94-100 %] 99 % (11/03/21 6:00 PM) 97 % (11/03/21 3:46 PM) Pulse Rate [55-90 bpm] 87 bpm (11/03/21 3:46 PM) Blood Pressure [90-138/55-84 mm Hg] 122/68mm Hg (11/03/21 6:00 PM) 158/84mm Hg *H* (11/03/21 3:46 PM) Respiratory Rate [16-30 br/min] 19 br/min (11/03/21 6:00 PM) 13 br/min *L* (11/03/21 3:46 PM) Temperature [96.8-100.4 DegF] 99.8 DegF (11/03/21 3:46 PM) Mode of Delivery (Oxygen) Room air (11/03/21 6:29 PM) Room air (11/03/21 6:00 PM) Room air (11/03/21 3:46 PM) Blood pressure sites Arm, left (11/03/21 3:46 PM) Temperature Route Temporal (11/03/21 3:46 PM) Dry Weight 69.5 kg (11/03/21 3:46 PM) Dry Weight Obtained Via Patient/family s tated (11/03/21 3:46 PM) Social History Social History Type Response Smoking Status Former smoker; Stopp ed at age: 50; entered on: 03/11/17 Sex Female
--- OUTSIDE RECORDS SUMMARY | 2024-06-15 11:22 | XMS_ITS | Continuity of Care Document ---
Author Organization [facility] Address [address] [place] [address]- Care Team Providers Care Machine Specialist Name Role Phone Tito Alvarado MD Primary Care Physician En[place] [facility] [place] Date(s): 01/09/22 - 01/16/22 [facility] [address] [place] [address]- Encounter Diagnosis Anxiety, generalized(Discharge Diagnosis) - 01/09/22 Soft tissue swelling of chest wall(Discharge Diagnosis) - 01/09/22 Attending Physician: Tito Alvarado MD Allergies, Adverse [...] 12/12/21 11:12:00 EDT, Route to Pharmacy Electronically, [facility] #[id number], Partial fill upon patient request if the [...] Refills, Maintenance, 10/02/21 15:44:00 EST, EC Capsule, [facility] #[id number], Partial fill upon patient request if the prescription... Start Date: 10/02/21 Status: Ordered duloxetine 60 mg oral enteric coated capsule 1 capsule = 60 mg, By Mouth, Daily, fill when patient next requests. To be taken with 30mg cap for total 90mg daily dose, # 30 capsule, 3 Refills, Maintenance, 10/02/21 15:45:00 EST, [facility] #[id number], 163, cm, 08/27/21 9:26:00 EST, Height,... Start Date: 10/02/21 Status: Ordered ferrous sulfate 325 mg oral enteric coated tablet 325 mg, 1, tablet, By Mouth, Daily, # 30 tablet, Refills 2, Tot. Refills 2, Maintenance, 12/05/21 11:39:00 EDT, Route to Pharmacy Electronically, [facility] #[id number], Partial fill upon patient request if the prescription is for a schedule II o... Start Date: 12/05/21 Status: Ordered hydrOXYzine hydrochloride 25 mg oral tablet 1-1.5 tablet, By Mouth, 3 times a day, PRN for anxiety, dose increase, # 60 tablet, 1 Refills, Maintenance, 01/09/22 13:02:00 EDT, Tablet, [facility] #[id number], Partial fill upon patient request if the [...] 02/12/22 11:37:00 EDT, 01/13/22 11:37:00 EDT, Tablet, [facility] #[id number], Partial fill upon patient request if the [...] 2 Refills, Maintenance, 12/30/21 15:02:00 EDT, Tablet, [facility] #[id number], Partial fill upon patient request if the [...] kne e surgery: 2006 & 2008 at [facility](Confirmed) Active Status post knee surgery, [facility] 05/02/01(Confirmed) 05/02/01 Active Lumbar facet [...] trigger thumb by Alex Putnam M.D. at [facility] 12Retrial prescribed 12/17/20. On 01/15, at [...] Clinical Service Informant Anxiety, generalized Discharge Diagnosis 01/09/22 Soft tissue swelling of chest wall Discharge Diagnosis 01/09/22 Vital Signs Most recent to oldest [Reference Range]: 1 2 Height 157.5 cm (01/09/22 11:36 AM) 157.5 cm (01/09/22 11:28 AM) Weight 75.7 kg (01/09/22 11:28 AM) Oxygen Saturation [94-100 %] 100 % (01/09/22 11: AM) Pulse Rate [55-90 bpm] 95 bpm *H* (01/09/22 11:28 AM) Body Mass Index [18.5-24.99] 30.52 *>HHI* (01/09/22 11:28 AM) Blood Pressure [90-138/55-84 mm Hg] 127/ 86mm Hg (01/09/22 11:36 AM) 162/92mm Hg *H* (01/09/22 11:28 AM) Temperature [96.8-100.4 DegF] 97.1 DegF (01/09/22 11:28 AM) Mode of Delivery (Oxygen) Room air (01/09/22 11:28 AM) Blood pressure sites Arm, right (01/09/22 11:28 AM) Temperature Route Temporal (01/09/22 11:28 AM) Dry Weight 75.7 kg (01/09/22 11:28 AM) Weight Obtained Via Standing scale (01/09/22 11:28 AM) Social History Social History Type Response Smoking Status Former smoker; Stopp ed at age: 50; entered on: 03/11/17 Sex Female
--- OUTSIDE RECORDS SUMMARY | 2024-06-15 11:22 | XMS_ITS | Continuity of Care Document ---
Author Organization [facility] Address [address] [place] [address]- Care Team Providers Care Ingredient Handler Name Role Phone Christiano FANG, Tito England Primary Care Physician Encounter [facility] [place] Date(s): 04/14/21 - 05/14/21 [facility] [address] [place] [address]- Allergies, Adverse Reactions, Alerts Substance Reaction Severity [...] 03/17/21 15:51:00 EDT, Route to Pharmacy Electronically, [facility] #[id number], 163, cm, 03/17/21 13:56:00 EDT, Height Start Date: 03/17/21 Status: Ordered magnesium oxide 500 mg oral tablet 1 tablet = 500 mg, By Mouth, Daily, 0 Refills, Maintenance, 05/21/20 7:47:00 EDT Start Date: 05/21/20 Status: Ordered pregabalin 75 mg oral capsule 1 capsule = 75 mg, By Mouth, 2 times a day, # 60 capsule, 0 Refills, Maintenance, 05/05/21 17:42:00EDT, [facility] #[id number], 163, cm, 04/21/21 11:51:00 EDT, Height Start Date: 05/05/21 Status: Ordered topiramate 100 mg oral tablet 2 tablet = 200 mg, By Mouth, Daily at bedtime, # 56 tablet, 2 Refills, Maintenance, 03/17/21 15:50:00 EDT, [facility] #[id number], 163, cm, 03/17/21 13:56:00 EDT, Height Start [...] [facility] Active Status post knee surgery, [facility] 05/02/01(Confirmed) 05/02/01 Active Lumbar [...] Alex Putnam M.D. at [facility] 10Retrial prescribed 12/17/20. On 01/15, at [...]
--- OUTSIDE RECORDS SUMMARY | 2024-06-15 11:22 | XMS_ITS | Continuity of Care Document ---
Author Organization [facility] Address [address] [place] [address]- Care Team Providers Care Feed Mill Supervisor Name Role Phone Christiano FANG, Tito England Primary Care Physician [place] [facility] [place] Date(s): 08/04/21 - 09/03/21 [facility] [address] [place], [place] [address] Allergies, Adverse Reactions, Alerts Substance [...] capsule, 3 Refills, Maintenance, 07/14/21 9:37:00 EST, [facility] #[id number], 163, cm, 07/02/21 14:28:00 EST, Height Start [...] 08/08/21 16:04:00 EST, Route to Pharmacy Electronically, [facility] #[id number], Partial fi... Start Date: 08/08/21 Stop Date: 11/06/21 Status: Ordered topiramate 100 mg oral tablet 3 tablet = 300 mg, By Mouth, Daily at bedtime, # 84 tablet, 1 Refills, Maintenance, 08/26/21 14:05:00 EST, [facility] #[id number], 163, cm, 08/06/21 14:34:00 EST, Height, 63, [...] Refills, Soft Stop, 08/19/21 12:22:00 EST, Tablet, [facility] #[id number], Partial fill upon patient request if the [...] [place](Confirmed) Active [place], [place] [...] ( moderate disability ) on 05/26/17; updated [facility] Back Pain Disability Scale score: 18 on 05/26/17. 10Initial Oswestry Disability Index: 50% ( severe disability ) on 03/31/16; initial Neck Disability Index: 42% ( severe disability ) on 03/31/16; initial [facility] Back Pain Disability Scale score: 46 [...]
--- OUTSIDE RECORDS SUMMARY | 2024-06-15 11:22 | XMS_ITS | Continuity of Care Document ---
Author Organization [facility] Address [address] [place] [address]- Care Team Providers Care Automatic Quilling Machine Operator Name Role Phone Christiano FANG, Tito England Primary Care Physician [place] [facility] [place] - 12/18/22 [facility] [address] [place], [place] [address] Allergies, Adverse Reactions, Alerts Substance Reaction Severity Status codeine nausea Active iodinated radiocontrast dyes N/V Active Immunizations Given and Recorded Vaccine Date Status Refusal Reason influenza virus vaccine, inactivated 1 06/02/22 Gi laurie influenza virus vaccine, inactivated 06/05/18 Mars rded influenza virus vaccine, inactivated 06/17/17 Mars rded [id number] 12y+ bivalent booster vax 03/27/22 Recorded SARS-CoV-2 (COVID-19) mRNA BNT-162b2 vac 08/21/21 Recorded SARS-CoV-2 (COVID-19) Ad26 vaccine 12/02/20 Given Influenza Virus Vaccine (oldterm) 07/13/20 Recorde d zoster vaccine, inactivated 11/20/18 Recorded zoster vaccine, inactivated 09/17/18 Recorded tetanus/diphtheria/pertussis, acel(Tdap) 06/05/18 Recorded 1Result Comment: [facility] [place]:[id number] Medications AutoASV EPAPmin 8 EPAPmax 12 PSmin [...] tablet, 2 Refills, Maintenance, 10/30/22 15:04:00 EST, [facility] #[id number], 157.5, cm, 08/07/22 10:53:00 EST, Height, 87, kg, 10/14/22 11:44:00 EST, Dry Weight Start Date: 10/30/22 Status: Ordered buPROPion 150 mg/12 hours (SR) oral tablet, extended release 1 tablet = 150 mg, By Mouth, 2 times a day, dose increase, # 60 tablet, 3 Refills, Maintenance, 11/10/22 10:38:00 EDT, ER Tablet, [facility] #[id number], Partial fill upon patient request if theprescription [...] capsule, 5 Refills, Maintenance, 12/15/22 12:42:00 EDT, [facility] #[id number], 157.5, cm, 12/07/22 11:15:00 EDT, Height, 85, kg, 11/10/22 10:21:00 EDT, Dry Weight Start Date: 12/15/22 Status: Ordered ferrous sulfate 325 mg oral enteric coated tablet 1, tablet, By Mouth, Daily, # 30 tablet, Refills 1, Maintenance, 05/06/22 11:08:00 EDT, Route to Pharmacy Electronically, [facility] #[id number], 157.5, cm, 05/01/22 9:45:00 EDT, Height, 83.4, kg, 05/01/22 9:11:00 EDT, Dry Weight Start Date: 05/06/22 Status: Ordered gabapentin 100 mg oral capsule 100 mg, 1, capsule, By Mouth, 3 times a day, # 90 capsule, Refills 1, Tot. Refills 1, Maintenance, 12/07/22 11:26:00 EDT, Route to Pharmacy Electronically, [facility] #[id number], Partial fill upon patient request if the prescription is for a armond... Start Date: 12/07/22 Status: Ordered hydrOXYzine hydrochloride 25 mg oral tablet 1 TO 1 AND 1/2 TABLETS, By Mouth, 3 times a day, PRN NEEDED FOR ANXIETY, # 60 tablet, 2 Refills,Maintenance, 10/05/22 20:26:00 EST, [facility] #[id number], 157.5, cm, 08/07/22 10:53:00 EST, Height, 82.8, kg, 08/07/22 10:17:00 EST, Dry Weight Start Date: 10/05/22 Status: Ordered ipratropium nasal 21 mcg/inh spray See Instructions, PRN Nasal Congestion, 1 spray each nostril BID, # 1 each, 4 Refills, Maintenance,06/04/22 11:24:00 EDT, [facility] #[id number], Partial fill upon patient request if the [...] Refills, Maintenance, 09/02/22 23:37:00 EST, CR Tablet, [facility] #[id number], Partial fill upon patient request if the prescription is for a schedule II opioid drug., 157.5, cm, 08/07/22 10:53:0... Start Date: 09/02/22 Status: Ordered pramipexole 0.125 mg oral tablet 3 tablet, By Mouth, Daily at bedtime, # 90 tablet, 3 Refills, Maintenance, 10/12/22 18:54:00 EST, [facility] #[id number], 157.5, cm, 08/07/22 10:53:00 EST, Height, 82.8, [...] Confirmed Active Status post knee surgery, [facility] 05/02/01 Confirmed 05/02/01 Active Hypertension Confirmed Active [...] thumb by Alex Putnam M.D. at [facility] 7Retrial prescribed 12/17/20. On 01/15, [...] Name: Sandhya Tsai MD, Cj Reyna Position: [facility] Anesthesiology MD Member Role: Lifetime Consulting Physician Address: Address: [address] [place] [address] [place] [address]- Name: Tito Alvarado MD Position: [facility] Primary Care Physician Member Role: PCP Address: Address: [address] [place] [address] Adult [place] [address]- Care Team Related Persons Name: BRAYAN VELAZCO Address: [address] [place] [address] Name: ABDON VELAZCO Name: NOEL LIZAMA Address: home [address] [place] [id number] Name: FADY NIELSON Address: home [address] [place] [address]
--- OUTSIDE RECORDS SUMMARY | 2024-06-15 11:22 | XMS_ITS | Continuity of Care Document ---
Author Organization [facility] Address [address] [place] [address]- Care Team Providers Care Hand Bunch Maker Name Role Phone Tammie FANG, Jo-Ann Primary Care Physician [phone] [place] [facility] [place] 09[place]28/20 [facility] [address] [place] [id number] Allergies, Adverse Reactions, Alerts Substance [...] tablet, 0 Refills, Maintenance, 08/19/20 12:16:00 EST, [facility] #[id number], DX: F90.0., 1 tab qa.m, 0.5-1 tab [...] 07/02/20 9:07:00 EST, Route to Pharmacy Electronically, [facility] #[id number], 163, cm, 07/02/20 7:54:00 EST, Height, 64.2, kg, 03/18... Start Date: 07/02/20 Status: Ordered duloxetine 20 mg oral enteric coated capsule 2 capsule = 40 mg, By Mouth, Daily, for use w/60mg caps for TDD of 100mg, # 56 capsule, 5 Refills, Maintenance, 08/19/20 10:51:00 EST, [facility] #[id number], 163, cm, 08/15/20 10:48:00 EST, Height, 64.2, kg, 03/18/19 12:29:00 EDT, Dry Weight Start Date: 08/19/20 Status: Ordered duloxetine 30 mg oral enteric coated capsule See Instructions, 3 caps by mouth daily for 7 days, then 2 caps daily for 7 days, then 1 cap daily for 14 days., # 42 capsule, 0 Refills, Maintenance, 09/19/20 10:20:00 EST, [facility] #[id number], ., 163, cm, 09/18/20 15:01:00 EST, Height, 64.2,... Start Date: 09/19/20 Status: Ordered duloxetine 60 mg oral enteric coated capsule 2 capsules, By Mouth, Daily, Reflects dose increase effective 08/20/20., # 56 capsule, 3 Refills, Maintenance, 09/04/20 16:24:00 EST, [facility] #[id number], 163, cm, 08/20/20 7:51:00 EST, Height, 64.2, kg, 03/18/19 12:29:00 EDT, Dry Weight Start Date: 09/04/20 Status: Ordered FLUoxetine 10 mg oral tablet See Instructions, 1 tablet By Mouth Daily for 7 days, then 2 tabs daily for 14 days, then 3 tabs daily, # 56 tablet, 0 Refills, Maintenance, 09/19/20 10:20:00 EST, [facility] #[id number], ., 163, cm, 09/18/20 15:01:00 EST, Height, [...] 7:47:00 EDT Start Date: 05/21/20 Status: Ordered [place] 325 mg-10 mg oral tablet 1 - 1.5 tablets, By Mouth, Every 4 hours, PRN pain.max of 6 tabs/day., # 84 tablet, 0 Refills, Maintenance, 09/05/20 17:44:00 EST, [facility] #[id number], Partial fill upon pt request. DX: M54.81, M54.5, M54.17, 1 - 1.5 tablets By Mouth Every 4 h... Start Date: 09/05/20 Status: Ordered topiramate 100 mg oral tablet 3 tablets, By Mouth, Daily at bedtime, # 84 tablet, 2 Refills, Maintenance, 07/25/20 14:36:00 EST, [facility] #[id number], 163, cm, 07/25/20 13:49:00 EST, Height, 64.2, [...] - [place](Confirmed) Active Status post knee surgery, [facility] 05/02/01(Confirmed) 05/02/01 Active Lumbar facet [...] trigger thumb by Alex Putnam M.D. at [facility] 10Memantine prescribed 01/25/20. With dose escal., pn [...]
--- OUTSIDE RECORDS SUMMARY | 2024-06-15 11:22 | XMS_ITS | Continuity of Care Document ---
Author Organization [facility] Address [address] [place] [address]- Care Team Providers Care Orbitread Operator Name Role Phone Christiano FANG, Tito England Primary Care Physician [place] [facility] [place] 07/04/21 - 08/03/21 [facility] [address] [place], [place] [address] Attending Physician: Margaret Vargas Admitting Physician: [...] capsule, 3 Refills, Maintenance, 07/14/21 9:37:00 EST, [facility] #[id number], 163, cm, 07/02/21 14:28:00 EST, Height Start [...] tablet, 1 Refills, Maintenance, 07/03/21 10:52:00 EST, [facility] #[id number], 163, cm, 07/02/21 14:28:00 EST, Height Start [...] [facility](Confirmed) Active Status post knee surgery, [facility] 05/02/01(Confirmed) 05/02/01 Active Lumbar facet joint [...] ( severe disability ) on 03/31/16; initial [facility] Back Pain Disability Scale score: 46 on 03/31/16. 11On 09/30/17 underwent Tenolysis, right thumb, for Right trigger thumb by Alex Putnam M.D. at [facility] 12Retrial prescribed 12/17/20. On 01/15, at 10mg [...]
--- OUTSIDE RECORDS SUMMARY | 2024-06-15 11:22 | XMS_ITS | Continuity of Care Document ---
Author Organization [facility] Address [address] [place] [address]- Care Team Providers Care Exceptional Children Teacher Name Role Phone Tammie FANG, Jo-Ann Primary Care Physician Encounter [facility] [place] Date(s): 07/17/20 - 08/16/20 [facility] [address] [place] [id number] Allergies, Adverse Reactions, Alerts [...] 4pm., # 84 tablet, 0 Refills, Maintenance, 07/02/20 9:07:00 [place], [facility] #[id number], DX: F90.0., 1 tab qa.m, 0.5-1 tab midday and0-1 tab q 4pm., 163, cm, 07/02/20 7:54:00 EST, He... Start Date: 07/02/20 Status: Ordered Calcium 600 +D By Mouth, 0 Refills, Maintenance, 01/04/20 7:48:00 EDT Start Date: 01/04/20 Status: Ordered Cannabis (Schedule I Substance) 0 Refills, Maintenance, 04/22/16 14:08:47 Start Date: 04/22/16 Status: Ordered diazepam 2 mg oral tablet 0.5 - 1 tablet, By Mouth, Every 4 hours, PRN, # 112 tablet, Refills 1, Tot. Refills 1, Maintenance,pain/spams, 07/02/20 9:07:00 EST, Route to Pharmacy Electronically, [facility] #[id number], 163, cm, 07/02/20 7:54:00 EST, Height, 64.2, kg, 03/18... Start Date: 07/02/20 Status: Ordered duloxetine 20 mg oral enteric coated capsule 2 capsule = 40 mg, By Mouth, Daily, Please alert pt to change in capsule strength, # 56 capsule, 4 Refills, Maintenance, 03/12/20 16:17:00 EDT, [facility] #[id number], Replaces 40mg caps which her plan excludes., 163, cm, 03/12/20 7:53:00 EDT, He... Start Date: 03/12/20 Status: Ordered duloxetine 60 mg oral enteric coated capsule 1 capsule, By Mouth, Daily, TO BE TAKEN WITH 20 MG CAPSULES FOR TOTAL DAILY DOSE OF 100MG, # 28 capsule, 5 Refills, Maintenance, 02/12/20 10:25:00 EDT, [facility] #[id number], 163, cm, 01/25/20 7:56:00 EDT, Height, 64.2, kg, 03/18/19 12:29:00 EDT... Start Date: 02/12/20 Status: Ordered Ketamine 5mg capsule Ketamine 5mg capsule, See Instructions, # 30 capsule, Refills 0, Tot. Refills 0, Maintenance, take 1 cap in addition to 80mg capsule as a trial, 07/02/20 8:47:00 EST, Supply Start Date: 07/02/20 Status: Ordered KETAMINE 80MG CAPSULE KETAMINE 80MG CAPSULE, See Instructions, # 90 capsule, Refills 5, Tot. Refills 5, Maintenance, 1 cap po up to TID PRN moderately severe pain. DX: occipital neuralgia (M54.81), 04/17/20 12:59:00 EDT, Supply Start Date: 04/17/20 Status: Ordered Ketamine 85mg capsule Ketamine 85mg [...] 7:47:00 EDT Start Date: 05/21/20 Status: Ordered [place] 325 mg-10 mg oral tablet 1 - 1.5 tablets, By Mouth, Every 4 hours, PRN pain.max of 6 tabs/day., # 84 tablet, 0 Refills, Maintenance, 07/02/20 9:07:00 EST, [facility] #[id number], Partial fill upon pt request. DX: M54.81, M54.5, M54.17, 1 - 1.5 tablets By Mouth Every 4 ho... Start Date: 07/02/20 Status: Ordered topiramate 100 mg oral tablet 3 tablets, By Mouth, Daily at bedtime, # 84 tablet, 2 Refills, Maintenance, 07/25/20 14:36:00 EST, [facility] #[id number], 163, cm, 07/25/20 13:49:00 EST, Height, 64.2, [...] Active Attention and concentration deficit, treatment associated(Confirmed) 3 Active Medical cannabis use(Confirmed) Active Ex-cigarette smoker(Confirmed) Active Urinary, incontinence, stres s female(Confirmed) Active Limitation due to disability(Confirmed) 4, 5, 6, 7 Active Anxiety, generalized(Confirmed) Active Status post bilateral [...] 04/26/18 Active Status post right thumb surgery(Confirmed) 8 Active Hidradenitis(Confirmed) Active Status post carpal tunnel release(Confirmed) 08/13/15 Active Status post arthroscopic kne e surgery: 2006 & 2008 at [facility](Confirmed) Active Status post knee surgery, [facility] 05/02/01(Confirmed) 05/02/01 Active Lumbar facet joint pain(Confirmed) Active Lumbar radiculopathy, right(Confirmed) Active Radiculitis, lumbosacral rig ht S1 +/- L5 new 03/2019(Confirmed) 03/2019 Active Mechanical low back pain(Confirmed) Active Median nerve neuropathy, left(Confirmed) Active Myofascial pain, regional(Confirmed) Active Neuropathy, sacral, S1 bilaterally(Confirmed) Active Adverse effect of non-opioid analgesic: memantine(Confirmed) 9 Active Osteopenia(Confirmed) Active Buttock pain, right(Confirmed) Active Risk assessment: SOAPP-R(Confirmed) 10 Active Abdominal pain, chronic, rig ht lower quadrant; intermittent; lasts minutes(Confirmed) Active Risk assessment: Adverse Chi ldhood Experience(Confirmed) 11 Active Decreased range of motion of left [...] somnolence & trial was aborted on 01/04/20. 3Adult ADHD self-report scale (ASRS v1.1) symptom checklist: Part A: 4; Part B: 5. on 04/11/18 4Updated Oswestry Disability Index: 35% moderate disability , [place] Back Pain Disability Scale: 35and Neck Disability Index: 8 on 06/29/19. 5Updated Oswestry Disability Index: 2% ( minimal disability ) on 06/09/18; updated [place] Back Pain Disability Scale score: 4 on 06/09/18; updated Neck Disability Index: 4% on 06/09/18 6Updated Oswestry Disability Index: 22% ( moderate disability ) on 05/26/17; updated [facility] Back Pain Disability Scale score: 18 on 05/26/17. 7Initial Oswestry Disability Index: 50% ( severe disability ) on 03/31/16; initial Neck Disability Index: 42% ( severe disability ) on 03/31/16; initial [facility] Back Pain Disability Scale score: 46 on 03/31/16. 8On 09/30/17 underwent Tenolysis, right thumb, for Right trigger thumb by Alex Putnam M.D. at [facility] 9Memantine prescribed 01/25/20. With dose escal., pn w neuropathic features over right hip decr/resolved. At 10mg bid, began to experience decr head pn [attrib. to occipital neuralgia] & decr sciatica, but felt tipsy, impaired- would not want to drive and hard to wake up in the morning. Trial abandoned 02/26/20. 10SOAPP-R: 24 on 03/31/2016 11ACE score: 0 on 07/01/17 Social History Social History Type Response Smoking Status Former smoker; Tobac co user in household: No entered on: 07/07/17 Sex Female
--- OUTSIDE RECORDS SUMMARY | 2024-06-15 11:22 | XMS_ITS | Continuity of Care Document ---
Author Organization [facility] Address [address] [place] [address]- Care Team Providers Care Block Placer Name Role Phone Christiano FANG, Tito England Primary Care Physician [place] [facility] [place](s): 09/18/22 - 10/18/22 [facility] [address] [place], [place] [address] Allergies, Adverse Reactions, Alerts Substance Reaction Severity Status codeine nausea Active iodinated radiocontrast dyes N/V Active Immunizations Given and Recorded Vaccine Date Status Refusal Reason influenza virus vaccine, inactivated 1 06/02/22 Gi laurie influenza virus vaccine, inactivated 06/05/18 Mars rded influenza virus vaccine, inactivated 06/17/17 Mars rded [id number] 12y+ bivalent booster vax 03/27/22 Recorded SARS-CoV-2 (COVID-19) mRNA BNT-162b2 vac 08/21/21 Recorded SARS-CoV-2 (COVID-19) Ad26 vaccine 12/02/20 Given Influenza Virus Vaccine (oldterm) 07/13/20 Recorde d zoster vaccine, inactivated 11/20/18 Recorded zoster vaccine, inactivated 09/17/18 Recorded tetanus/diphtheria/pertussis, acel(Tdap) 06/05/18 Recorded 1Result Comment: [facility]:[id number] Medications AutoASV EPAPmin 8 EPAPmax 12 PSmin [...] Refills, Maintenance, 06/23/22 14:08:00 EDT, ER Tablet, [facility] #[id number], Partial fillupon patient request if the prescription [...] 30 capsule, 5 Refills, 08/14/22 12:55:00 EST, [facility] #[id number], 157.5, cm, 08/07/22 10:53:00 EST, Height, 82.8, kg, 08/07/22 10:17:00 EST, Dry Weight Start Date: 08/14/22 Status: Ordered duloxetine 60 mg oral enteric coated capsule 1 capsule = 60 mg, By Mouth, Daily, take with 30mg capsule for total 90mg daily, # 30 capsule, 5 Refills, Maintenance, 03/09/22 11:52:00 EDT, [facility] #[id number], 157.5, cm, 02/09/22 19:12:00EDT, Height, 77, kg, 01/13/22 9:51:00 EDT, Dry Weight Start Date: 03/09/22 Status: Ordered ferrous sulfate 325 mg oral enteric coated tablet 1, tablet, By Mouth, Daily, # 30 tablet, Refills 1, Maintenance, 05/06/22 11:08:00 EDT, Route to Pharmacy Electronically, [facility] #[id number], 157.5, cm, 05/01/22 9:45:00 EDT, Height, 83.4, kg, 05/01/22 9:11:00 EDT, Dry Weight Start Date: 05/06/22 Status: Ordered hydrOXYzine hydrochloride 25 mg oral tablet 1 TO 1 AND 1/2 TABLETS, By Mouth, 3 times a day, PRN NEEDED FOR ANXIETY, # 60 tablet, 2 Refills,Maintenance, 10/05/22 20:26:00 EST, [facility] #[id number], 157.5, cm, 08/07/22 10:53:00 EST, Height, 82.8, kg, 08/07/22 10:17:00 EST, Dry Weight Start Date: 10/05/22 Status: Ordered ipratropium nasal 21 mcg/inh spray See Instructions, PRN Nasal Congestion, 1 spray each nostril BID, # 1 each, 4 Refills, Maintenance,06/04/22 11:24:00 EDT, [facility] #[id number], Partial fill upon patient request if the [...] Refills, Maintenance, 09/02/22 23:37:00 EST, CR Tablet, [facility] #[id number], Partial fill upon patient request if the [...] tablet, 3 Refills, Maintenance, 10/12/22 18:54:00 EST, [facility] #[id number], 157.5, cm, 08/07/22 10:53:00 EST, Height, 82.8, [...] Confirmed Active Status post knee surgery, [facility] 05/02/01 Confirmed 05/02/01 Active [...] M.D. at [facility] 7Retrial prescribed 12/17/20. On 01/15, at [...] Name: Sandhya Tsai MD, Cj Reyna Position: [facility] Anesthesiology MD Member Role: Lifetime Consulting Physician Address: Address: [address] [place] [address] [place] [address]- Name: Tito Alvarado MD Position: [facility] Primary Care Physician Member Role: PCP Address: Address: [address] [place] [address] Adult & [place] [address]- Care Team Related Persons Name: BRAYAN VELAZCO Address: home [address] [place] [address] Name: NOEL LIZAMA Address: home [address] [place] [address] Name: FADY NIELSON Address: home [address] [place] [address]
--- OUTSIDE RECORDS SUMMARY | 2024-06-15 11:22 | XMS_ITS | Continuity of Care Document ---
Author Organization [facility] Address [address] [place] [address]- Care Team Providers Care Accessioner Name Role Phone Tammie FANG, Jo-Ann Primary Care Physician Encounter [facility] Date(s): 11/14/20 - 12/14/20 [facility] [address] [place] [address]- Allergies, Adverse Reactions, Alerts Substance Reaction Severity [...] tablet, 0 Refills, Maintenance, 11/21/20 9:49:00 EDT, [facility] #[id number], DX: F90.0., 1 tab qa.m, 0.5-1 tab [...] 10/08/20 10:57:00 EST, Route to Pharmacy Electronically, [facility] #[id number], 163, cm, 10/08/20 7:51:00 EST, Height, 64.2, kg, 02/21... Start Date: 10/08/20 Status: Ordered FLUoxetine 40 mg oral capsule 1 capsule = 40 mg, By Mouth, Daily, # 30 capsule, 1 Refills, Maintenance, 10/23/20 17:26:00 EST, [facility] #[id number], 163, cm, 10/23/20 14:46:00 EST, Height, 64.2, [...] tablet, 0 Refills, Maintenance, 11/26/20 17:25:00 EDT, [facility], Partial fill upon patient request, [...] 7:47:00 EDT Start Date: 05/21/20 Status: Ordered [place] 325 mg-10 mg oral tablet 1 - 1.5 tablets, By Mouth, Every 4 hours, PRN pain.max of 6 tabs/day., # 84 tablet, 0 Refills, Maintenance, 11/21/20 9:49:00 EDT, [facility] #[id number], Partial fill upon pt request. DX: M54.81, M54.5, M54.17, 1 - 1.5 tablets By Mouth Every 4 ho... Start Date: 11/21/20 Status: Ordered topiramate 100 mg oral tablet 3 tablets, By Mouth, Daily at bedtime, # 84 tablet, 2 Refills, Maintenance, 11/21/20 8:46:00 EDT, [facility] #[id number], 163, cm, 11/21/20 7:51:00 EDT, Height, 64.2, [...] kne e surgery: 2006 & 2009 at [facility](Confirmed) Active Status [...] ( moderate disability ) on 05/26/17; updated [facility] Back Pain Disability Scale score: 18 on 05/26/17. 8Initial Oswestry Disability Index: 50% ( severe disability ) on 03/31/16; initial Neck Disability Index: 42% ( severe disability ) on 03/31/16; initial [facility] Back Pain Disability Scale score: 46 on 03/31/16. 9On 09/30/17 underwent Tenolysis, right thumb, for Right trigger thumb by Alex Putnam M.D. at [facility] 10Memantine prescribed 01/25/20. With dose escal., [...]
--- OUTSIDE RECORDS SUMMARY | 2024-06-15 11:22 | XMS_ITS | Continuity of Care Document ---
Author Organization [facility] Address [address] [place] [address]- Care Team Providers Care Security Management Specialist Name Role Phone Christiano FANG, Tito England Primary Care Physician Encounter [facility] [place] Date(s): 04/20/22 - 05/20/22 [facility] [address] [place], [place] [address] Allergies, Adverse [...] capsule, 5 Refills, Maintenance, 03/09/22 11:52:00 EDT, [facility] #[id number], 157.5, cm, 02/09/22 19:12:00EDT, Height, 77, kg, 01/13/22 9:51:00 EDT, Dry Weight Start Date: 03/09/22 Status: Ordered ferrous sulfate 325 mg oral enteric coated tablet 1, tablet, By Mouth, Daily, # 30 tablet, Refills 1, Maintenance, 05/06/22 11:08:00 EDT, Route to Pharmacy Electronically, [facility] #[id number], 157.5, cm, 05/01/22 9:45:00 EDT, Height, 83.4, [...] 60 tablet, 2 Refills,Maintenance, 05/06/22 11:08:00 EDT, [facility] #[id number], 157.5, cm, 05/01/22 9:45:00 EDT, Height, 83.4, [...] a day, # 60 tablet, 3 Refills, [facility] #[id number], 157.5, cm, 03/26/22 13:17:00 EDT, Height, 77, [...] arthroscopic knee surgery: 2006 & 2009 at [facility] Confirmed Active Status post knee surgery, U [facility] 05/02/01 Confirmed 05/02/01 Active Lumbar facet [...] moderate disability ) on 05/26/17; updated [facility] Back Pain Disability Scale score: 18 on 05/26/17. 10Initial Oswestry Disability Index: 50% ( severe disability ) on 03/31/16; initial Neck Disability Index: 42% ( severe disability ) on 03/31/16; initial [facility] Back Pain Disability Scale score: [...] Name: Christiano FANG, Tito England Address: Address: [address] [place] [address] Adult & Pediatric Medicine [place], [place] [address]
--- OUTSIDE RECORDS SUMMARY | 2024-06-15 11:22 | XMS_ITS | Continuity of Care Document ---
Author Organization [facility] Address [address] [place] [address]- Care Team Providers Care Floor Coverings Salesperson Name Role Phone Tammie FANG, Jo-Ann Primary Care Physician Encounter [facility] Date(s): 10/22/20 - 11/21/20 [facility] [address] [place] [id number] Allergies, Adverse Reactions, Alerts Substance [...] tablet, 0 Refills, Maintenance, 11/21/20 9:49:00 EDT, [facility] #[id number], DX: F90.0., 1 tab qa.m, 0.5-1 tab midday and0-1 tab q 4pm., 163, cm, 11/21/20 7:51:00 EDT, He... Start Date: 11/21/20 Status: Ordered buprenorphine 75 mcg buccal film See Instructions, [address] film on inside of cheek and avoid food or drink untilcompletely dissolved, # 28 film, 1 Refills, Maintenance, 11/21/20 9:49:00 EDT, [facility]#[id number], Partial fill upon patient request if the [...] 10/08/20 10:57:00 EST, Route to Pharmacy Electronically, [facility] #[id number], 163, cm, 10/08/20 7:51:00 EST, Height, 64.2, kg, 02/21... Start Date: 10/08/20 Status: Ordered FLUoxetine 40 mg oral capsule 1 capsule = 40 mg, By Mouth, Daily, # 30 capsule, 1 Refills, Maintenance, 10/23/20 17:26:00 EST, [facility] #[id number], 163, cm, 10/23/20 14:46:00 EST, Height, 64.2, [...] 7:47:00 EDT Start Date: 05/21/20 Status: Ordered [place] 325 mg-10 mg oral tablet 1 - 1.5 tablets, By Mouth, Every 4 hours, PRN pain.max of 6 tabs/day., # 84 tablet, 0 Refills, Maintenance, 11/21/20 9:49:00 EDT, [facility] #[id number], Partial fill upon pt request. DX: M54.81, M54.5, M54.17, 1 - 1.5 tablets By Mouth Every 4 ho... Start Date: 11/21/20 Status: Ordered topiramate 100 mg oral tablet 3 tablets, By Mouth, Daily at bedtime, # 84 tablet, 2 Refills, Maintenance, 11/21/20 8:46:00 EDT, [facility] #[id number], 163, cm, 11/21/20 7:51:00 EDT, Height, 64.2, [...] e surgery: 2006 & 2008 at [facility](Confirmed) Active Status post knee surgery, [facility] 05/02/01(Confirmed) 05/02/01 Active Iliotibial band syndrome of [...]
--- OUTSIDE RECORDS SUMMARY | 2024-06-15 11:23 | XMS_ITS | Continuity of Care Document ---
Author Organization [facility] Address [address] [place] [address]- Care Team Providers Care Mine Deputy Name Role Phone Tammie FANG, Jo-Ann Primary Care Physician [facility]counter [facility] Date(s): 07/30/20 - 08/29/20 [facility] [address] [place] [id number] Allergies, Adverse Reactions, Alerts Substance [...] 84 tablet, 0 Refills, Maintenance, 08/19/20 12:16:00 [facility] #[id number], DX: F90.0., 1 tab qa.m, 0.5-1 tab midday and 0-1 tab q 4pm., 163, cm, 08/15/20 10:48:00 EST,... Start Date: 08/19/20 Status: Ordered buprenorphine 300 mcg buccal film 1 film = 300 mcg, By Mouth, Every 12 hours, place film on inside of cheek and avoid food or drink until completely dissolved, # 28 film, 1 Refills, Maintenance, 08/29/20 17:01:00 [facility] #[id number], Partial fill upon patient request. PA... Start [...] 07/02/20 9:07:00 EST, Route to Pharmacy Electronically, [facility] #[id number], 163, cm, 07/02/20 7:54:00 EST, Height, 64.2, kg, 03/18... Start Date: 07/02/20 Status: Ordered duloxetine 20 mg oral enteric coated capsule 2 capsule = 40 mg, By Mouth, Daily, for use w/60mg caps for TDD of 100mg, # 56 capsule, 5 Refills, Maintenance, 08/19/20 10:51:00 EST, [facility] #[id number], 163, cm, 08/15/20 10:48:00 EST, Height, 64.2, kg, 03/18/19 12:29:00 EDT, Dry Weight Start Date: 08/19/20 Status: Ordered duloxetine 60 mg oral enteric coated capsule 1 capsule, By Mouth, Daily, TO BE TAKEN WITH 20 MG CAPS FOR TDD OF 100MG, # 28 capsule, 5 Refills, Maintenance, 08/19/20 10:51:00 EST, [facility] #[id number], 163, cm, 08/15/20 10:48:00 EST, Height, 64.2, kg, 03/18/19 12:29:00 EDT, Dry Weight Start Date: 08/19/20 Status: Ordered Ketamine 85mg capsule Ketamine 85mg [...] 7:47:00 EDT Start Date: 05/21/20 Status: Ordered [place] 325 mg-10 mg oral tablet 1 - 1.5 tablets, By Mouth, Every 4 hours, PRN pain.max of 6 tabs/day., # 84 tablet, 0 Refills, Maintenance, 08/19/20 12:16:00 EST, [facility] #[id number], Partial fill upon pt request. DX: M54.81, M54.5, M54.17, 1 - 1.5 tablets By Mouth Every 4 h... Start Date: 08/19/20 Status: Ordered topiramate 100 mg oral tablet 3 tablets, By Mouth, Daily at bedtime, # 84 tablet, 2 Refills, Maintenance, 07/25/20 14:36:00 EST, [facility] #[id number], 163, cm, 07/25/20 13:49:00 EST, Height, 64.2, [...] kne e surgery: 2006 & 2008 at [facility](Confirmed) Active Status post knee surgery, [facility] 05/02/01(Confirmed) 05/02/01 Active Lumbar facet joint [...] ( moderate disability ) on 05/26/17; updated [facility] Back Pain Disability Scale score: 18 on 05/26/17. 8Initial Oswestry Disability Index: 50% ( severe disability ) on 03/31/16; initial Neck Disability Index: 42% ( severe disability ) on 03/31/16; initial [facility] Back Pain Disability Scale score: 46 on 03/31/16. 9On 09/30/17 underwent Tenolysis, right thumb, for Right trigger thumb by Alex Putnam M.D. at [facility] 10Memantine prescribed 01/25/20. With dose escal., [...]
--- OUTSIDE RECORDS SUMMARY | 2024-06-15 11:23 | XMS_ITS | Continuity of Care Document ---
Author Organization [facility] Address [address] [place] [address]- Care Team Providers Care Pill Machine Operator Name Role Phone Tito Alvarado MD Primary Care Physician [phone] Encounter [facility] Date(s): 09/16/21 - 10/16/21 [facility] [address] [place] [address]- [place] Allergies, Adverse Reactions, Alerts Substance Reaction Severity [...] Refills, Maintenance, 10/02/21 15:44:00 EST, EC Capsule, [facility] #[id number], Partial fill upon patient request if the prescription... Start Date: 10/02/21 Status: Ordered duloxetine 60 mg oral enteric coated capsule 1 capsule = 60 mg, By Mouth, Daily, fill when patient next requests. To be taken with 30mg cap for total 90mg daily dose, # 30 capsule, 3 Refills, Maintenance, 10/02/21 15:45:00 EST, [facility] #[id number], 163, cm, 08/27/21 9:26:00 EST, Height,... Start Date: 10/02/21 Status: Ordered hydrOXYzine hydrochloride 25 mg oral tablet 1-1.5 tablet, By Mouth, 3 times a day, PRN for anxiety, dose increase, # 60 tablet, 1 Refills, Maintenance, 10/08/21 14:51:00 EST, Tablet, [facility] #[id number], Partial fill upon patient request if the [...] Gm, 1 Refills, Maintenance, 09/17/21 13:09:00 EST, [facility] #[id number], Partial fill upon patient request if the prescription is for a schedule II opioid drug., 163, cm, 08/27/21 9:26:00 EST, Height, 63... Start Date: 09/17/21 Status: Ordered NuLYTELY with Flavor Packs oral powder for reconstitution See Instructions, Drink 240mL every 15-20 minutes until first half is gone. Repeat 6 hours prior toprocedure., # 4,000 mL, 0 Refills, Maintenance, 09/17/21 13:09:00 EST, [facility] #[id number],Partial fill upon patient request if the prescript... [...] Gm, 0 Refills, Maintenance, 09/23/21 13:03:00 EST, [facility] #[id number], Partial fill upon patient request if the [...] 08/08/21 16:04:00 EST, Route to Pharmacy Electronically, [facility] #[id number], Partial fi... Start Date: 08/08/21 Stop Date: 11/06/21 Status: Ordered topiramate 100 mg oral tablet 3 tablet = 300 mg, By Mouth, Daily at bedtime, # 84 tablet, 1 Refills, Maintenance, 08/26/21 14:05:00 EST, [facility] #[id number], 163, cm, 08/06/21 14:34:00 EST, Height, 63, [...] 08/19/21 12:22:00 EST, Tablet, [facility] #[id number], Partial fill upon patient request if the [...] [facility] Active Status post knee surgery, [facility] 05/02/01(Confirmed) 05/02/01 Active Lumbar facet [...] ( moderate disability ) on 05/26/17; updated [facility] Back Pain Disability Scale score: 18 on 05/26/17. 10Initial Oswestry Disability Index: 50% ( severe disability ) on 03/31/16; initial Neck Disability Index: 42% ( severe disability ) on 03/31/16; initial [facility] Back Pain Disability Scale score: 46 on 03/31/16. 11On 09/30/17 underwent Tenolysis, right thumb, for Right trigger thumb by Alex Putnam M.D. at [facility] 12Retrial prescribed 12/17/20. On 01/15, at [...]
--- OUTSIDE RECORDS SUMMARY | 2024-06-15 11:23 | XMS_ITS | Continuity of Care Document ---
Author Organization [facility] Address [address] [place] [address]- Care Team Providers Care Fraud Examiner Name Role Phone Tito Alvarado MD Primary Care Physician [id number] Date[facility]s): 06/26/22 - 10/24/[address] [address]- Attending Physician: Chung Jeffery MD Admitting Physician: Chung Jeffery MD Referring Physician: Tito Alvarado MD Allergies, Adverse Reactions, Alerts Substance Reaction Severity Status codeine nausea Active iodinated radiocontrast dyes N/V Active Immunizations Given and Recorded Vaccine Date Status Refusal Reason influenza virus vaccine, inactivated 1 06/02/22 Gi laurie influenza virus vaccine, inactivated 06/05/18 Mars rded influenza virus vaccine, inactivated 06/17/17 Mars rded [id number] 12y+ bivalent booster vax 03/27/22 Recorded SARS-CoV-2 (COVID-19) mRNA BNT-162b2 vac 08/21/21 Recorded SARS-CoV-2 (COVID-19) Ad26 vaccine 12/02/20 Given Influenza Virus Vaccine (oldterm) 07/13/20 Recorde d zoster vaccine, inactivated 11/20/18 Recorded zoster vaccine, inactivated 09/17/18 Recorded tetanus/diphtheria/pertussis, acel(Tdap) 06/05/18 Recorded 1Result Comment: [facility]:[id number] Medications AutoASV EPAPmin 8 EPAPmax 12 PSmin [...] Refills, Maintenance, 06/23/22 14:08:00 EDT, ER Tablet, [facility] #[id number], Partial fillupon patient request if the prescription [...] 30 capsule, 5 Refills, 08/14/22 12:55:00 EST, [facility] #[id number], 157.5, cm, 08/07/22 10:53:00 EST, Height, 82.8, kg, 08/07/22 10:17:00 EST, Dry Weight Start Date: 08/14/22 Status: Ordered duloxetine 60 mg oral enteric coated capsule 1 capsule = 60 mg, By Mouth, Daily, take with 30mg capsule for total 90mg daily, # 30 capsule, 5 Refills, Maintenance, 03/09/22 11:52:00 EDT, [facility] #[id number], 157.5, cm, 02/09/22 19:12:00EDT, Height, 77, kg, 01/13/22 9:51:00 EDT, Dry Weight Start Date: 03/09/22 Status: Ordered ferrous sulfate 325 mg oral enteric coated tablet 1, tablet, By Mouth, Daily, # 30 tablet, Refills 1, Maintenance, 05/06/22 11:08:00 EDT, Route to Pharmacy Electronically, [facility] #[id number], 157.5, cm, 05/01/22 9:45:00 EDT, Height, 83.4, kg, 05/01/22 9:11:00 EDT, Dry Weight Start Date: 05/06/22 Status: Ordered hydrOXYzine hydrochloride 25 mg oral tablet 1 TO 1 AND 1/2 TABLETS, By Mouth, 3 times a day, PRN NEEDED FOR ANXIETY, # 60 tablet, 2 Refills,Maintenance, 10/05/22 20:26:00 EST, [facility] #[id number], 157.5, cm, 08/07/22 10:53:00 EST, Height, 82.8, kg, 08/07/22 10:17:00 EST, Dry Weight Start Date: 10/05/22 Status: Ordered ipratropium nasal 21 mcg/inh spray See Instructions, PRN Nasal Congestion, 1 spray each nostril BID, # 1 each, 4 Refills, Maintenance,06/04/22 11:24:00 EDT, [facility] #[id number], Partial fill upon patient request if the [...] Refills, Maintenance, 09/02/22 23:37:00 EST, CR Tablet, [facility] #[id number], Partial fill upon patient request if the [...] tablet, 3 Refills, Maintenance, 10/12/22 18:54:00 EST, [facility] #[id number], 157.5, cm, 08/07/22 10:53:00 EST, Height, 82.8, [...] arthroscopic knee surgery: 2006 & 2008 at [facility] Confirmed Active Status post knee surgery, [facility] 05/02/01 Confirmed 05/02/01 Active [...] Alex Putnam M.D. at [facility] 7Retrial prescribed 12/17/20. On 01/15, [...] Name: Sandhya Tsai MD, Cj Reyna Position: [facility] Anesthesiology MD Member Role: Lifetime Consulting Physician Address: Address: [address] [place] [address] [place] [address]- Name: Tito Alvarado MD Position: [facility] Primary Care Physician Member Role: PCP Address: Address: [address] [place] [address] Adult [place] [address]- Care Team Related Persons Name: BRAYAN VELAZCO Address: [address] [place] [address] Name: NOEL LIZAMA Address: [address] [place] [address] Name: FADY NIELSON Address: [address] [place] [address]
--- OUTSIDE RECORDS SUMMARY | 2024-06-15 11:23 | XMS_ITS | Continuity of Care Document ---
Author Organization [facility] Address [address] [place] [address]- Care Team Providers Care Command And Control Officer Name Role Phone Tammie FANG, Jo-Ann Primary Care Physician [facility]counter [facility] Date(s): 09/05/20 - 10/05/20 [facility] [address] [place] [id number] Allergies, Adverse Reactions, Alerts [...] tablet, 0 Refills, Maintenance, 08/19/20 12:16:00 EST, [facility] #[id number], DX: F90.0., 1 tab qa.m, 0.5-1 tab [...] 07/02/20 9:07:00 EST, Route to Pharmacy Electronically, [facility] #[id number], 163, cm, 07/02/20 7:54:00 EST, Height, 64.2, kg, 03/18... Start Date: 07/02/20 Status: Ordered duloxetine 20 mg oral enteric coated capsule 2 capsule = 40 mg, By Mouth, Daily, for use w/60mg caps for TDD of 100mg, # 56 capsule, 5 Refills, Maintenance, 08/19/20 10:51:00 EST, [facility] #[id number], 163, cm, 08/15/20 10:48:00 EST, Height, 64.2, kg, 03/18/19 12:29:00 EDT, Dry Weight Start Date: 08/19/20 Status: Ordered duloxetine 30 mg oral enteric coated capsule See Instructions, 3 caps by mouth daily for 7 days, then 2 caps daily for 7 days, then 1 cap daily for 14 days., # 42 capsule, 0 Refills, Maintenance, 09/19/20 10:20:00 EST, [facility] #[id number], ., 163, cm, 09/18/20 15:01:00 EST, Height, 64.2,... Start Date: 09/19/20 Status: Ordered duloxetine 60 mg oral enteric coated capsule 2 capsules, By Mouth, Daily, Reflects dose increase effective 08/20/20., # 56 capsule, 3 Refills, Maintenance, 09/04/20 16:24:00 EST, [facility] #[id number], 163, cm, 08/20/20 7:51:00 EST, Height, 64.2, kg, 03/18/19 12:29:00 EDT, Dry Weight Start Date: 09/04/20 Status: Ordered FLUoxetine 10 mg oral tablet See Instructions, 1 tablet By Mouth Daily for 7 days, then 2 tabs daily for 14 days, then 3 tabs daily, # 56 tablet, 0 Refills, Maintenance, 09/19/20 10:20:00 EST, [facility] #[id number], ., 163, cm, 09/18/20 15:01:00 EST, Height, [...] 7:47:00 EDT Start Date: 05/21/20 Status: Ordered [place] 325 mg-10 mg oral tablet 1 - 1.5 tablets, By Mouth, Every 4 hours, PRN pain.max of 6 tabs/day., # 84 tablet, 0 Refills, Maintenance, 09/05/20 17:44:00 EST, [facility] #[id number], Partial fill upon pt request. DX: M54.81, M54.5, M54.17, 1 - 1.5 tablets By Mouth Every 4 h... Start Date: 09/05/20 Status: Ordered topiramate 100 mg oral tablet 3 tablets, By Mouth, Daily at bedtime, # 84 tablet, 2 Refills, Maintenance, 07/25/20 14:36:00 EST, [facility] #[id number], 163, cm, 07/25/20 13:49:00 EST, Height, 64.2, [...] [facility] Active Status post [facility] surgery, [facility] [...] Alex Putnam M.D. at [facility] 10Memantine prescribed 01/25/20. With dose escal., pn [...]
--- OUTSIDE RECORDS SUMMARY | 2024-06-15 11:23 | XMS_ITS | Continuity of Care Document ---
Author Organization [facility] Address [address] [place] [address]- Care Team Providers Care Lead Cargo Mover Name Role Phone Ronnie FANG, Johann Briggs Primary Care Physician [facility]counter [facility] Date(s): 01/04/23 - 02/03/23 [facility] [address] [place] [address]- Allergies, Adverse Reactions, Alerts Substance Reaction Severity Status codeine nausea Active iodinated radiocontrast dyes N/V Active Immunizations Given and Recorded Vaccine Date Status Refusal Reason influenza virus vaccine, inactivated 1 06/02/22 Gi laurie influenza virus vaccine, inactivated 06/05/18 Mars rded influenza virus vaccine, inactivated 06/17/17 Mars rded [id number] 12y+ bivalent booster vax 03/27/22 Recorded SARS-CoV-2 (COVID-19) mRNA BNT-162b2 vac 08/21/21 Recorded SARS-CoV-2 (COVID-19) Ad26 vaccine 12/02/20 Given Influenza Virus Vaccine (oldterm) 07/13/20 Recorde d zoster vaccine, inactivated 11/20/18 Recorded zoster vaccine, inactivated 09/17/18 Recorded tetanus/diphtheria/pertussis, acel(Tdap) 06/05/18 Recorded 1Result Comment: [facility]:[id number] Medications AutoASV EPAPmin 8 EPAPmax 12 PSmin [...] Refills, Maintenance, 11/10/22 10:38:00 EDT, ER Tablet, [facility] #[id number], Partial fill upon patient request if theprescription [...] capsule, 5 Refills, Maintenance, 12/15/22 12:42:00 EDT, [facility] #[id number], 157.5, cm, 12/07/22 11:15:00 EDT, Height, 85, kg, 11/10/22 10:21:00 EDT, Dry Weight Start Date: 12/15/22 Status: Ordered ferrous sulfate 325 mg oral enteric coated tablet 1, tablet, By Mouth, Daily, # 30 tablet, Refills 1, Maintenance, 05/06/22 11:08:00 EDT, Route to Pharmacy Electronically, [facility] #[id number], 157.5, cm, 05/01/22 9:45:00 EDT, Height, 83.4, kg, 05/01/22 9:11:00 EDT, Dry Weight Start Date: 05/06/22 Status: Ordered gabapentin 100 mg oral capsule 100 mg, 1, capsule, By Mouth, 3 times a day, # 90 capsule, Refills 1, Tot. Refills 1, Maintenance, 12/07/22 11:26:00 EDT, Route to Pharmacy Electronically, [facility] #[id number], Partial fill upon patient request if the prescription is for a armond... Start Date: 12/07/22 Status: Ordered hydrOXYzine hydrochloride 25 mg oral tablet 1 TO 1 AND 1/2 TABLETS, By Mouth, 3 times a day, PRN NEEDED FOR ANXIETY, # 120 tablet, 0 Refills, Maintenance, 01/14/23 23:42:00 EDT, [facility] #[id number], 157.5, cm, 12/07/22 11:15:00 EDT,Height, 85, kg, 11/10/22 10:21:00 EDT, Dry Weight Start Date: 01/14/23 Status: Ordered ipratropium nasal 21 mcg/inh spray See Instructions, PRN Nasal Congestion, 1 spray each nostril BID, # 1 each, 4 Refills, Maintenance,06/04/22 11:24:00 EDT, [facility] #[id number], Partial fill upon patient request if the [...] Refills, Maintenance, 09/02/22 23:37:00 EST, CR Tablet, [facility] #13054, Partial fill upon patient request if the prescription is for a schedule II opioid drug., 157.5, cm, 08/07/22 10:53:0... Start Date: 09/02/22 Status: Ordered pramipexole 0.125 mg oral tablet 3 tablet, By Mouth, Daily at bedtime, # 90 tablet, 3 Refills, Maintenance, 10/12/22 18:54:00 EST, [facility] #[id number], 157.5, cm, 08/07/22 10:53:00 EST, Height, 82.8, [...] Hospital Confirmed Active Status post knee surgery, [facility] 05/02/01 Confirmed 05/02/01 Active Hypertension Confirmed [...] Name: Sandhya Tsai MD, Cj Reyna Position: [facility] Anesthesiology MD Member Role: Lifetime Consulting Physician Address: Address: [address] [place] [address] [place] [address]- Name: Johann Trujillo MD Position: Reference Physician Member Role: PCP Address: Address: [address] [place] [address]- Care Team Related Persons Name: BRAYAN VELAZCO Address: [address] [place] [address] Name: ABDON VELAZCO Name: NOEL LIZAMA Address: [address] [place] [address] Name: FADY NIELSON Address: [address] [place] [address]
--- OUTSIDE RECORDS SUMMARY | 2024-06-15 11:23 | XMS_ITS | Continuity of Care Document ---
Author Organization [facility] Address [address] [place] [address]- Care Team Providers Care Concrete Form Setter And Finisher Name Role Phone Christiano FANG, Tito England Primary Care Physician Encounter [facility] Date(s): 08/26/21 - 09/25/21 [facility] [address] [place] [address]- Allergies, Adverse Reactions, Alerts Substance Reaction Severity [...] capsule, 3 Refills, Maintenance, 07/14/21 9:37:00 EST, [facility] #[id number], 163, cm, 07/02/21 14:28:00 EST, Height Start Date: 07/14/21 Status: Ordered magnesium oxide 500 mg oral tablet 1 tablet = 500 mg, By Mouth, Daily, 0 Refills, Maintenance, 05/21/20 7:47:00 EDT Start Date: 05/21/20 Status: Ordered Metamucil 3.4 gm/5.2 gm oral powder for reconstitution = 3.4 Gm, By Mouth, 2 times a day, # 450 Gm, 1 Refills, Maintenance, 09/17/21 13:09:00 EST, [facility] #[id number], Partial fill upon patient request if the prescription is for a schedule II opioid drug., 163, cm, 08/27/21 9:26:00 EST, Height, 63... Start Date: 09/17/21 Status: Ordered NuLYTELY with Flavor Packs oral powder for reconstitution See Instructions, Drink 240mL every 15-20 minutes until first half is gone. Repeat 6 hours prior toprocedure., # 4,000 mL, 0 Refills, Maintenance, 09/17/21 13:09:00 EST, [facility] #[id number],Partial fill upon patient request if the prescript... [...] Gm, 0 Refills, Maintenance, 09/23/21 13:03:00 EST, [facility] #[id number], Partial fill upon patient request if the [...] 08/08/21 16:04:00 EST, Route to Pharmacy Electronically, [facility] #[id number], Partial fi... Start Date: 08/08/21 Stop Date: 11/06/21 Status: Ordered topiramate 100 mg oral tablet 3 tablet = 300 mg, By Mouth, Daily at bedtime, # 84 tablet, 1 Refills, Maintenance, 08/26/21 14:05:00 EST, [facility] #[id number], 163, cm, 08/06/21 14:34:00 EST, Height, 63, [...] Refills, Soft Stop, 08/19/21 12:22:00 EST, Tablet, [facility] #[id number], Partial fill upon patient request if the [...] kne e surgery: 2006 & 2008 at [facility](Confirmed) Active Status post [facility], [facility] [...] Alex Putnam M.D. at [facility] 12Retrial prescribed 12/17/20. On 01/15, [...]
--- OUTSIDE RECORDS SUMMARY | 2024-06-15 11:23 | XMS_ITS | Continuity of Care Document ---
Author Organization [facility] Address [address] [place] [address]- Care Team Providers Care Senior Oracle Developer Name Role Phone Christiano FANG, Tito England Primary Care Physician Encounter [facility] Date(s): 03/25/22 - 04/24/22 [facility] [address] [place], [place] [address] Allergies, Adverse Reactions, Alerts Substance [...] 12/12/21 11:12:00 EDT, Route to Pharmacy Electronically, [facility] #[id number], Partial fill upon patient request if the [...] capsule, 5 Refills, Maintenance, 03/09/22 11:52:00 EDT, [facility] #[id number], 157.5, cm, 02/09/22 19:12:00EDT, Height, 77, kg, 01/13/22 9:51:00 EDT, Dry Weight Start Date: 03/09/22 Status: Ordered ferrous sulfate 325 mg oral enteric coated tablet 1, tablet, By Mouth, Daily, # 30 tablet, Refills 0, Route to Pharmacy Electronically, [facility] #[id number], 157.5, cm, 03/26/22 13:17:00 EDT, Height, 77, [...] NEEDED FOR ANXIETY, # 60 tablet, 0 Refills,[facility] #[id number], 157.5, cm, 02/09/22 19:12:00 EDT, Height, 77, [...] a day, # 60 tablet, 3 Refills, [facility] #[id number], 157.5, cm, 03/26/22 13:17:00 EDT, Height, 77, [...] [facility] Active Status post knee surgery, [facility] 05/02/01(Confirmed) 05/02/01 Active Lumbar facet joint pain(Confirmed) [...] moderate disability ) on 05/26/17; updated [facility] Back Pain Disability Scale score: 18 on 05/26/17. 10Initial Oswestry Disability Index: 50% ( severe disability ) on 03/31/16; initial Neck Disability Index: 42% ( severe disability ) on 03/31/16; initial [facility] Back Pain Disability Scale score: 46 on 03/31/16. 11On 09/30/17 underwent Tenolysis, right thumb, for Right trigger thumb by Alex Putnam M.D. at [facility] 12Retrial prescribed 12/17/20. On [...] 03/11/17 Sex Female Care Team Personnel Name: Tito Alvarado MD Address: [address] [place] [address] Adult [place] [address]-
--- OUTSIDE RECORDS SUMMARY | 2024-06-15 11:23 | XMS_ITS | Continuity of Care Document ---
Author Organization [facility] Address [address] [address]- Care Team Providers Care Tape Recording Machine Operator Name Role Phone Tammie FANG, Jo-Ann Primary Care Physician Encounter [facility] Date(s): 12/18/20 - 01/17/[facility] [address] [id number] Allergies, Adverse Reactions, Alerts [...] tablet, 0 Refills, Maintenance, 12/23/20 17:16:00 EDT, [facility] #[id number], DX: F90.0., 1 tab qa.m, 0.5-1 tab [...] 12/23/20 17:07:00 EDT, [id number], 163, cm, 12/23/20 13:59:00 EDT, Height, 64.2, [...] tablet, 0 Refills, Maintenance, 12/23/20 13:04:00 EDT, [facility] #[id number], This NMDA receptor agonist is being used to tr... Start Date: 12/23/20 Status: Ordered memantine 10 mg oral tablet See Instructions, 0.5 tab by mouth in AM, 1 tab at night, # 10 tablet, 0 Refills, Maintenance, 01/15/21 13:41:00 EDT, [facility] #[id number], Partial fill upon patient request if the prescription is for a schedule II opioid drug., 163, cm, ... Start Date: 01/15/21 Status: Ordered [place] 325 mg-10 mg oral tablet 1 - 1.5 tablets, By Mouth, Every 4 hours, PRN pain.max of 6 tabs/day., # 168 tablet, 0 Refills, Maintenance, 12/23/20 13:14:00 EDT, [facility] #[id number], Partial fill upon pt request. DX: M54.81, M54.5, M54.17, 1 - 1.5 tablets By Mouth Every 4... Start Date: 12/23/20 Status: Ordered topiramate 100 mg oral tablet 3 tablets, By Mouth, Daily at bedtime, # 84 tablet, 2 Refills, Maintenance, 11/21/20 8:46:00 EDT, [facility] #[id number], 163, cm, 11/21/20 7:51:00 EDT, Height, 64.2, [...] [facility] Active Status post knee surgery, [facility] 05/02/01(Confirmed) 05/02/01 Active Lumbar facet [...] ( moderate disability ) on 05/26/17; updated [facility] Back Pain Disability Scale score: 18 on 05/26/17. 8Initial Oswestry Disability Index: 50% ( severe disability ) on 03/31/16; initial Neck Disability Index: 42% ( severe disability ) on 03/31/16; initial [facility] Back Pain Disability Scale score: 46 on 03/31/16. 9On 09/30/17 underwent Tenolysis, right thumb, for Right trigger thumb by Alex Putnam M.D. at [facility] 10Memantine prescribed 01/25/20. With dose escal., [...]
--- OUTSIDE RECORDS SUMMARY | 2024-06-15 11:23 | XMS_ITS | Continuity of Care Document ---
Author Organization [facility] Address [address] [place] [address]- Care Team Providers Care Hood Fitter Name Role Phone Christiano FANG, Tito England Primary Care Physician [phone] [facility] Date(s): 07/24/22 - 08/23/22 [facility] [address] [place], [place] [address] Allergies, Adverse Reactions, Alerts Substance Reaction Severity Status codeine nausea Active iodinated radiocontrast dyes N/V Active Immunizations Given and Recorded Vaccine Date Status Refusal Reason influenza virus vaccine, inactivated 1 06/02/22 Gi laurie influenza virus vaccine, inactivated 06/05/18 Mars rded influenza virus vaccine, inactivated 06/17/17 Mars rded [id number] 12y+ bivalent booster vax 03/27/22 Recorded SARS-CoV-2 (COVID-19) mRNA BNT-162b2 vac 08/21/21 Recorded SARS-CoV-2 (COVID-19) Ad26 vaccine 12/02/20 Given Influenza Virus Vaccine (oldterm) 07/13/20 Recorde d zoster vaccine, inactivated 11/20/18 Recorded zoster vaccine, inactivated 09/17/18 Recorded tetanus/diphtheria/pertussis, acel(Tdap) 06/05/18 Recorded 1Result Comment: [facility]:[id number] Medications Aerochamber w/Mask (Large) See Instructions, # [...] 10:38:00 EST, Aerosol, Route to Pharmacy Electronically, [id number], [facility] #[id number], 1... Start Date: 08/07/22 Status: Ordered AutoASV [...] Refills, Maintenance, 06/23/22 14:08:00 EDT, ER Tablet, [facility] #[id number], Partial fillupon patient request if the prescription [...] 30 capsule, 5 Refills, 08/14/22 12:55:00 EST, [facility] #[id number], 157.5, cm, 08/07/22 10:53:00 EST, Height, 82.8, kg, 08/07/22 10:17:00 EST, Dry Weight Start Date: 08/14/22 Status: Ordered duloxetine 60 mg oral enteric coated capsule 1 capsule = 60 mg, By Mouth, Daily, take with 30mg capsule for total 90mg daily, # 30 capsule, 5 Refills, Maintenance, 03/09/22 11:52:00 EDT, [facility] #[id number], 157.5, cm, 02/09/22 19:12:00EDT, Height, 77, kg, 01/13/22 9:51:00 EDT, Dry Weight Start Date: 03/09/22 Status: Ordered ferrous sulfate 325 mg oral enteric coated tablet 1, tablet, By Mouth, Daily, # 30 tablet, Refills 1, Maintenance, 05/06/22 11:08:00 EDT, Route to Pharmacy Electronically, [facility] #[id number], 157.5, cm, 05/01/22 9:45:00 EDT, Height, 83.4, kg, 05/01/22 9:11:00 EDT, Dry Weight Start Date: 05/06/22 Status: Ordered Flovent HFA 110 mcg/inh inhalation aerosol 1 puffs, Inhalation, 2 times a day, rinse mouth and throat after use, # 1 each, 2 Refills, Maintenance, 08/07/22 10:36:00 EST, Aerosol, [facility] #[id number], Partial fill upon patient request if the [...] 60 tablet, 2 Refills,Maintenance, 05/06/22 11:08:00 EDT, [facility] #[id number], 157.5, cm, 05/01/22 9:45:00 EDT, Height, 83.4, kg, 05/01/22 9:11:00 EDT, Dry Weight Start Date: 05/06/22 Status: Ordered ipratropium nasal 21 mcg/inh spray See Instructions, PRN Nasal Congestion, 1 spray each nostril BID, # 1 each, 4 Refills, Maintenance,06/04/22 11:24:00 EDT, [facility] #[id number], Partial fill upon patient request if the [...] 90 tablet, 3 Refills, 06/23/22 14:01:00 EDT, [facility] #[id number], 157.5, cm, 06/23/22 13:25:00 EDT, Height, 81.3, [...] knee surgery: 2006 & 2009 at [facility] Confirmed Active Status post knee surgery, [facility] 05/02/01 Confirmed [...] trigger thumb by Alex Putnam M.D. at [facility] 7Retrial prescribed 12/17/20. On 01/15, at [...] Name: Sandhya Tsai MD, Cj Reyna Position: [facility] Anesthesiology MD Member Role: Lifetime Consulting Physician Address: Address: [address] [place] [address] [address] Name: Tito Alvarado MD Position: [facility] Primary Care Physician Member Role: PCP Address: Address: [address] [place] [address] Adult & Pediatric Medicine [place], [place] [address] Care Team Related Persons Name: BRAYAN VELAZCO Address: home [address] [place] [address] Name: NOEL LIZAMA Address: home [address] [place] [address] Name: FADY NIELSON Address: [address] [place] [address]
--- OUTSIDE RECORDS SUMMARY | 2024-06-15 11:23 | XMS_ITS | Continuity of Care Document ---
Author Organization [facility] Address [address] [place] [address]- Care Team Providers Care Implementation Engineer Name Role Phone Christiano FANG, Tito England Primary Care Physician [place] [facility] [place] 06/03[place] - 07/03/22 [facility] [address] [place], [place] [address] Allergies, Adverse Reactions, Alerts Substance Reaction Severity Status codeine nausea Active iodinated radiocontrast dyes N/V Active Immunizations Given and Recorded Vaccine Date Status Refusal Reason influenza virus vaccine, inactivated 1 06/02/22 Gi laurie influenza virus vaccine, inactivated 06/05/18 Mars rded influenza virus vaccine, inactivated 06/17/17 Mars rded [id number] 12y+ bivalent booster vax 03/27/22 Recorded SARS-CoV-2 (COVID-19) mRNA BNT-162b2 vac 08/21/21 Recorded SARS-CoV-2 (COVID-19) Ad26 vaccine 12/02/20 Given Influenza Virus Vaccine (oldterm) 07/13/20 Recorde d zoster vaccine, inactivated 11/20/18 Recorded zoster vaccine, inactivated 09/17/18 Recorded tetanus/diphtheria/pertussis, acel(Tdap) 06/05/18 Recorded 1Result Comment: [facility]:[id number] Medications AutoASV EPAPmin 8 EPAPmax 12 PSmin [...] Refills, Maintenance, 06/23/22 14:08:00 EDT, ER Tablet, [facility] #[id number], Partial fillupon patient request if the prescription [...] capsule, 5 Refills, Maintenance, 03/09/22 11:52:00 EDT, [email or web address] #[id number], 157.5, cm, 02/09/22 19:12:00EDT, Height, 77, kg, 01/13/22 9:51:00 EDT, Dry Weight Start Date: 03/09/22 Status: Ordered ferrous sulfate 325 mg oral enteric coated tablet 1, tablet, By Mouth, Daily, # 30 tablet, Refills 1, Maintenance, 05/06/22 11:08:00 EDT, Route to Pharmacy Electronically, [facility] #[id number], 157.5, cm, 05/01/22 9:45:00 EDT, Height, 83.4, [...] 60 tablet, 2 Refills,Maintenance, 05/06/22 11:08:00 EDT, [facility] #[id number], 157.5, cm, 05/01/22 9:45:00 EDT, Height, 83.4, kg, 05/01/22 9:11:00 EDT, Dry Weight Start Date: 05/06/22 Status: Ordered ipratropium nasal 21 mcg/inh spray See Instructions, PRN Nasal Congestion, 1 spray each nostril BID, # 1 each, 4 Refills, Maintenance,06/04/22 11:24:00 EDT, [facility] #[id number], Partial fill upon patient request if the [...] 90 tablet, 3 Refills, 06/23/22 14:01:00 EDT, [facility] #[id number], 157.5, cm, 06/23/22 13:25:00 EDT, Height, 81.3, [...] arthroscopic knee surgery: 2006 & 2008 at [facility] Confirmed Active Status post knee surgery, [facility] 05/02/01 Confirmed 05/02/01 Active Lumbar facet joint [...] trigger thumb by Alex Putnam M.D. at [facility] 7Retrial prescribed 12/17/20. On 01/15, at [...] Name: Sandhya Tsai MD, Cj Reyna Position: [facility] Anesthesiology MD Member Role: Lifetime Consulting Physician Address: Address: [address] [place] [address] [place] [address]- Name: Tito Alvarado MD Position: [facility] Primary Care Physician Member Role: PCP Address: Address: [address] [place] [address] Adult & [place] [address]- Care Team Related Persons Name: BRAYAN VELAZCO Address: [address] [place] [address] Name: NOEL LIZAMA Address: [address] [place] [address] Name: FADY NIELSON Address: [address] [place] [address]
--- OUTSIDE RECORDS SUMMARY | 2024-06-15 11:23 | XMS_ITS | Continuity of Care Document ---
Author Organization [facility] Address [address] [place] [address]- Care Team Providers Care Control And Recovery Special Tactics Name Role Phone Tammie FANG, Jo-Ann Primary Care Physician [place] [facility] [place] Date(s): 12/09/20 - 01/08/21 [facility] [address] [place] [address]- Allergies, Adverse Reactions, Alerts Substance Reaction Severity [...] tablet, 0 Refills, Maintenance, 12/23/20 17:16:00 EDT, [facility] #[id number], DX: F90.0., 1 tab qa.m, 0.5-1 tab [...] 12/23/20 17:07:00 EDT, Route to Pharmacy Electronically, [facility] #[id number], 163, cm, 12/23/20 13:59:00 EDT, Height, 64.2, [...] tablet, 0 Refills, Maintenance, 12/23/20 13:04:00 EDT, [facility] #[id number], This NMDA receptor agonist is being used to tr... Start Date: 12/23/20 Status: Ordered [place] 325 mg-10 mg oral tablet 1 - 1.5 tablets, By Mouth, Every 4 hours, PRN pain.max of 6 tabs/day., # 168 tablet, 0 Refills, Maintenance, 12/23/20 13:14:00 EDT, [facility] #[id number], Partial fill upon pt request. DX: M54.81, M54.5, M54.17, 1 - 1.5 tablets By Mouth Every 4... Start Date: 12/23/20 Status: Ordered topiramate 100 mg oral tablet 3 tablets, By Mouth, Daily at bedtime, # 84 tablet, 2 Refills, Maintenance, 11/21/20 8:46:00 EDT, [facility] #[id number], 163, cm, 11/21/20 7:51:00 EDT, Height, 64.2, [...] kne e surgery: 2006 & 2008 at [facility](Confirmed) [facility] [...] ( moderate disability ) on 05/26/17; updated [facility] Back Pain Disability Scale score: 18 on 05/26/17. 8Initial Oswestry Disability Index: 50% ( severe disability ) on 03/31/16; initial Neck Disability Index: 42% ( severe disability ) on 03/31/16; initial [facility] Back Pain Disability Scale score: 46 on 03/31/16. 9On 09/30/17 underwent Tenolysis, right thumb, for Right trigger thumb by Alex Putnam M.D. at [facility] 10Memantine prescribed 01/25/20. With dose escal., [...]
--- OUTSIDE RECORDS SUMMARY | 2024-06-15 11:24 | XMS_ITS | Continuity of Care Document ---
Author Organization [facility] Address [address] [place] [address]- Care Team Providers Care Director Facilities Maintenance Name Role Phone Christiano FANG, Tito England Primary Care Physician [phone] Encounter [facility] [place] Date(s): 10/07/22 - 11/06/22 [facility] [address] [place], [place] [address] Allergies, Adverse Reactions, Alerts Substance Reaction Severity Status codeine nausea Active iodinated radiocontrast dyes N/V Active Immunizations Given and Recorded Vaccine Date Status Refusal Reason influenza virus vaccine, inactivated 1 06/02/22 Gi laurie influenza virus vaccine, inactivated 06/05/18 Mars rded influenza virus vaccine, inactivated 06/17/17 Mars rded [id number] 12y+ bivalent booster vax 03/27/22 Recorded SARS-CoV-2 (COVID-19) mRNA BNT-162b2 vac 08/21/21 Recorded SARS-CoV-2 (COVID-19) Ad26 vaccine 12/02/20 Given Influenza Virus Vaccine (oldterm) 07/13/20 Recorde d zoster vaccine, inactivated 11/20/18 Recorded zoster vaccine, inactivated 09/17/18 Recorded tetanus/diphtheria/pertussis, acel(Tdap) 06/05/18 Recorded 1Result Comment: [facility]:[id number] Medications AutoASV EPAPmin 8 EPAPmax 12 PSmin [...] tablet, 2 Refills, Maintenance, 10/30/22 15:04:00 EST, [facility] #[id number], 157.5, cm, 08/07/22 10:53:00 EST, Height, 87, [...] 30 capsule, 5 Refills, 08/14/22 12:55:00 EST, [facility] #[id number], 157.5, cm, 08/07/22 10:53:00 EST, Height, 82.8, kg, 08/07/22 10:17:00 EST, Dry Weight Start Date: 08/14/22 Status: Ordered duloxetine 60 mg oral enteric coated capsule 1 capsule = 60 mg, By Mouth, Daily, take with 30mg capsule for total 90mg daily, # 30 capsule, 5 Refills, Maintenance, 03/09/22 11:52:00 EDT, [facility] #[id number], 157.5, cm, 02/09/22 19:12:00EDT, Height, 77, kg, 01/13/22 9:51:00 EDT, Dry Weight Start Date: 03/09/22 Status: Ordered ferrous sulfate 325 mg oral enteric coated tablet 1, tablet, By Mouth, Daily, # 30 tablet, Refills 1, Maintenance, 05/06/22 11:08:00 EDT, Route to Pharmacy Electronically, [facility] #[id number], 157.5, cm, 05/01/22 9:45:00 EDT, Height, 83.4, kg, 05/01/22 9:11:00 EDT, Dry Weight Start Date: 05/06/22 Status: Ordered hydrOXYzine hydrochloride 25 mg oral tablet 1 TO 1 AND 1/2 TABLETS, By Mouth, 3 times a day, PRN NEEDED FOR ANXIETY, # 60 tablet, 2 Refills,Maintenance, 10/05/22 20:26:00 EST, [facility] #[id number], 157.5, cm, 08/07/22 10:53:00 EST, Height, 82.8, kg, 08/07/22 10:17:00 EST, Dry Weight Start Date: 10/05/22 Status: Ordered ipratropium nasal 21 mcg/inh spray See Instructions, PRN Nasal Congestion, 1 spray each nostril BID, # 1 each, 4 Refills, Maintenance,06/04/22 11:24:00 EDT, [facility] #[id number], Partial fill upon patient request if the [...] Refills, Maintenance, 09/02/22 23:37:00 EST, CR Tablet, [facility] #[id number], Partial fill upon patient request if the [...] tablet, 3 Refills, Maintenance, 10/12/22 18:54:00 EST, [facility] #[id number], 157.5, cm, 08/07/22 10:53:00 EST, Height, 82.8, [...] [address] [facility] Confirmed Active Status post knee surgery, [facility] 05/02/01 Confirmed 05/02/01 Active Lumbar [...] trigger thumb by Alex Putnam M.D. at [facility] 7Retrial prescribed 12/17/20. On 01/15, at [...] Name: Sandhya Tsai MD, Cj Reyna Position: [facility] Anesthesiology MD Member Role: Lifetime Consulting Physician Address: Address: [address] [place] [address] [place] [address]- Name: Tito Alvarado MD Position: [facility] Primary Care Physician Member Role: PCP Address: Address: [address] [place] [address] Adult & [place] [address]- Care Team Related Persons Name: BRAYAN VELAZCO Address: [address] [place] [address] Name: NOEL LIZAMA Address: [address] [place] [address] Name: FADY NIELSON Address: [address] [place] [address]
--- OUTSIDE RECORDS SUMMARY | 2024-06-15 11:24 | XMS_ITS | Continuity of Care Document ---
Author Organization [facility] Address [address] [place] [address]- Care Team Providers Care Lens Cutter Name Role Phone Tito Alvarado MD Primary Care Physician [place] [facility] [place]): [place] 08/12/21 [facility] [address] [place] [address]- Encounter Diagnosis Lower abdominal pain(Discharge Diagnosis) - 08/05/21 Chalazion left upper eyelid(Discharge Diagnosis) - 08/05/21 Chronic low back pain(Discharge Diagnosis) - 08/05/21 Attending Physician: Tito Alvarado MD Allergies, Adverse [...] capsule, 3 Refills, Maintenance, 07/14/21 9:37:00 EST, [facility] #[id number], 163, cm, 07/02/21 14:28:00 EST, Height Start [...] 08/08/21 16:04:00 EST, Route to Pharmacy Electronically, [facility] #[id number], Partial fi... Start Date: 08/08/21 Stop Date: 11/06/21 Status: Ordered topiramate 100 mg oral tablet 3 tablet = 300 mg, By Mouth, Daily at bedtime, # 84 tablet, 1 Refills, Maintenance, 07/03/21 10:52:00 EST, [facility] #[id number], 163, cm, 07/02/21 14:28:00 EST, Height Start [...] [facility](Confirmed) Active Status post knee surgery, [facility] 05/02/01(Confirmed) 05/02/01 Active Lumbar facet joint [...] trigger thumb by Alex Putnam M.D. at [facility] 12Retrial prescribed 12/17/20. On 01/15, at [...] Dates Health Status Cl inical Service Informant Lower abdominal pain Discharge Diagnosis 08/05/21 Chalazion left upper eyelid Discharge Diagnosis 08/05/21 Chronic low back pain Discharge Diagnosis 08/05/21 Vital Signs Most recent to oldest [Reference Range]: 1 2 Height 163 cm (08/05/21 10:23 AM) 163 cm (08/05/21 10:14 AM) Weight 63 kg (08/05/21 10:14 AM) Oxygen Saturation [94-100 %] 100 % (08/05/21 10:23 AM) 100 % (08/05/21 10:14 AM) Pulse Rate [55-90 bpm] 71 bpm (08/05/21 10:23 AM) 75 bpm (08/05/21 10:14 AM) Body Mass Index [18.5-24.99] 23.71 (08/05/21 10:14 AM) Blood Pressure [90-138/55-84 mm Hg] 144/ 88mm Hg *H* (08/05/21 10:23 AM) 147/90mm Hg *H* (08/05/21 10:14 AM) Temperature [96.8-100.4 DegF] 98.5 DegF (08/05/21 10:14 AM) Mode of Delivery (Oxygen) Room air (08/05/21 10:14 AM) Blood pressure sites Arm, left (08/05/21 10:23 AM) Arm, left (08/05/21 10:14 AM) Temperature Route Temporal (08/05/21 10:14 AM) Dry Weight 63 kg (08/05/21 10:14 AM) Weight Obtained Via Standing scale (08/05/21 10:14 AM) Social History Social History Type Response Smoking Status Former smoker; Stopp ed at age: 50; entered on: 03/11/17 Sex Female
--- OUTSIDE RECORDS SUMMARY | 2024-06-15 11:24 | XMS_ITS | Continuity of Care Document ---
Author Organization [facility] Address [address] [place] [address]- Care Team Providers Care Fish Boning Machine Feeder Name Role Phone Christiano FANG, Tito England Primary Care Physician [phone] Encounter [facility] [place] Date(s): 10/10/21 - 11/09/21 [facility] [address] [place] [address]- Allergies, Adverse Reactions, Alerts Substance Reaction Severity [...] Refills, Maintenance, 10/02/21 15:44:00 EST, EC Capsule, [facility] #[id number], Partial fill upon patient request if the prescription... Start Date: 10/02/21 Status: Ordered duloxetine 60 mg oral enteric coated capsule 1 capsule = 60 mg, By Mouth, Daily, fill when patient next requests. To be taken with 30mg cap for total 90mg daily dose, # 30 capsule, 3 Refills, Maintenance, 10/02/21 15:45:00 EST, [facility] #[id number], 163, cm, 08/27/21 9:26:00 EST, Height,... Start Date: 10/02/21 Status: Ordered hydrOXYzine hydrochloride 25 mg oral tablet 1-1.5 tablet, By Mouth, 3 times a day, PRN for anxiety, dose increase, # 60 tablet, 1 Refills, Maintenance, 10/08/21 14:51:00 EST, Tablet, [facility] #[id number], Partial fill upon patient request if the [...] Gm, 1 Refills, Maintenance, 09/17/21 13:09:00 EST, [facility] #[id number], Partial fill upon patient request if the prescription is for a schedule II opioid drug., 163, cm, 08/27/21 9:26:00 EST, Height, 63... Start Date: 09/17/21 Status: Ordered NuLYTELY with Flavor Packs oral powder for reconstitution See Instructions, Drink 240mL every 15-20 minutes until first half is gone. Repeat 6 hours prior toprocedure., # 4,000 mL, 0 Refills, Maintenance, 09/17/21 13:09:00 EST, [facility] #[id number],Partial fill upon patient request if the prescript... [...] Gm, 0 Refills, Maintenance, 09/23/21 13:03:00 EST, [facility] #[id number], Partial fill upon patient request if the [...] tablet, 1 Refills, Maintenance, 08/26/21 14:05:00 EST, [facility] #[id number], 163, cm, 08/06/21 14:34:00 EST, Height, 63, [...] Refills, Soft Stop, 08/19/21 12:22:00 EST, Tablet, [facility] #[id number], Partial fill upon patient request if the [...] e surgery: 2006 & 2008 at [facility](Confirmed) Active Status post knee surgery, [facility] 05/02/01(Confirmed) 05/02/01 Active Lumbar facet joint pain(Confirmed) [...] Alex Putnam M.D. at [facility] 12Retrial prescribed 12/17/20. On 01/15, at [...]
--- OUTSIDE RECORDS SUMMARY | 2024-06-15 11:24 | XMS_ITS | Continuity of Care Document ---
Author Organization [facility] Address [address] [place] [address]- Care Team Providers Care Alarm Installer Name Role Phone Jo-Ann Cho MD Primary Care Physician [place] [facility] [place](s): 03/21/21 - 03/28/21 [facility] [address] [place], [place] [address] Attending Physician: Jo-Ann Cho MD Allergies, Adverse [...] film, 0 Refills, Maintenance, 03/24/21 15:52:00 EDT, [facility][id number], Partial fill upon patient request if the [...] 03/17/21 15:51:00 EDT, Route to Pharmacy Electronically, [facility] #[id number], 163, cm, 03/17/21 13:56:00 EDT, Height Start Date: 03/17/21 Status: Ordered magnesium oxide 500 mg oral tablet 1 tablet = 500 mg, By Mouth, Daily, 0 Refills, Maintenance, 05/21/20 7:47:00 EDT Start Date: 05/21/20 Status: Ordered topiramate 100 mg oral tablet 2 tablet = 200 mg, By Mouth, Daily at bedtime, # 56 tablet, 2 Refills, Maintenance, 03/17/21 15:50:00 EDT, [facility] #[id number], 163, cm, 03/17/21 13:56:00 EDT, Height Start [...] kne e surgery: 2006 & 2009 at [facility](Confirmed) Active Status post knee surgery, [facility] 05/02/01(Confirmed) 05/02/01 Active Lumbar facet joint pain(Confirmed) [...] trigger thumb by Alex Putnam M.D. at [facility] 10Retrial prescribed 12/17/20. On 01/15, at [...] on 03/31/2016 13ACE score: 0 on 07/01/17 Vital Signs Most recent to oldest [Reference Range]: 1 Height 163 cm (03/21/21 10:01 AM) Weight 57.0 kg (03/21/21 10:01 AM) Pulse Rate [55-90 bpm] 101 bpm *H* (03/21/21 10:01 AM) Body Mass Index [18.5-24.99] 21.45 (03/21/21 10:01 AM) Blood Pressure [90-138/55-84 mm Hg] 122/ 72mm Hg (03/21/21 10:01 AM) Temperature [96.8-100.4 DegF] 98.8 DegF (03/21/21 10:01 AM) Temperature Route Temporal (03/21/21 10:01 AM) Social History Social History Type Response Smoking Status Former smoker; Stopp ed at age: 50; entered on: 03/11/17 Sex Female
--- OUTSIDE RECORDS SUMMARY | 2024-06-15 11:24 | XMS_ITS | Continuity of Care Document ---
Author Organization [facility] Address [address] [place] [address]- Care Team Providers Care Liaison Planner Name Role Phone Jo-Ann Cho MD Primary Care Physician [phone] Encounter [facility] Date(s): 03/20/21 - 04/19/21 [facility] [address] [place] [address]- Allergies, Adverse Reactions, Alerts Substance Reaction Severity [...] 48 hours, as directed by provider, # 3 film, 0 Refills, Maintenance, 04/15/21 16:48:00 EDT, [facility] #[id number], Partial fill upon patient request if the prescriptionis for a schedule II opioid drug., 163, cm, ... Start Date: 04/15/21 Status: Ordered fentaNYL 50 mcg/hr transdermal film, [...] 03/17/21 15:51:00 EDT, Route to Pharmacy Electronically, [facility] #[id number], 163, cm, 03/17/21 13:56:00 EDT, Height Start Date: 03/17/21 Status: Ordered magnesium oxide 500 mg oral tablet 1 tablet = 500 mg, By Mouth, Daily, 0 Refills, Maintenance, 05/21/20 7:47:00 EDT Start Date: 05/21/20 Status: Ordered topiramate 100 mg oral tablet 2 tablet = 200 mg, By Mouth, Daily at bedtime, # 56 tablet, 2 Refills, Maintenance, 03/17/21 15:50:00 EDT, [facility] #[id number], 163, cm, 03/17/21 13:56:00 EDT, Height Start [...] [facility](Confirmed) Active Status post knee surgery, [facility] 05/02/01(Confirmed) 05/02/01 Active Lumbar facet joint [...] thumb by Alex Putnam M.D. at [facility] 10Retrial prescribed 12/17/20. On 01/15, at [...]
--- OUTSIDE RECORDS SUMMARY | 2024-06-15 11:24 | XMS_ITS | Continuity of Care Document ---
Author Organization [facility] Address [address] [place] [address]- Care Team Providers Care Photoengraving Proofer Name Role Phone Christiano FANG, Tito England Primary Care Physician Encounter [facility] Date(s): 08/14/22 - 09/13/22 [facility] [address] [place], [place] [address] Allergies, Adverse Reactions, Alerts Substance Reaction Severity Status codeine nausea Active iodinated radiocontrast dyes N/V Active Immunizations Given and Recorded Vaccine Date Status Refusal Reason influenza virus vaccine, inactivated 1 06/02/22 Gi laurie influenza virus vaccine, inactivated 06/05/18 Mars rded influenza virus vaccine, inactivated 06/17/17 Mars rded [id number] 12y+ bivalent booster vax 03/27/22 Recorded SARS-CoV-2 (COVID-19) mRNA BNT-162b2 vac 08/21/21 Recorded SARS-CoV-2 (COVID-19) Ad26 vaccine 12/02/20 Given Influenza Virus Vaccine (oldterm) 07/13/20 Recorde d zoster vaccine, inactivated 11/20/18 Recorded zoster vaccine, inactivated 09/17/18 Recorded tetanus/diphtheria/pertussis, acel(Tdap) 06/05/18 Recorded 1Result Comment: [facility]:[id number] Medications Aerochamber w/Mask (Large) See Instructions, # [...] 10:38:00 EST, Aerosol, Route to Pharmacy Electronically, [id number], [facility] #[id number], 1... Start Date: 08/07/22 Status: Ordered AutoASV [...] Refills, Maintenance, 06/23/22 14:08:00 EDT, ER Tablet, [facility] #[id number], Partial fillupon patient request if the prescription [...] 30 capsule, 5 Refills, 08/14/22 12:55:00 EST, [facility] #[id number], 157.5, cm, 08/07/22 10:53:00 EST, Height, 82.8, kg, 08/07/22 10:17:00 EST, Dry Weight Start Date: 08/14/22 Status: Ordered duloxetine 60 mg oral enteric coated capsule 1 capsule = 60 mg, By Mouth, Daily, take with 30mg capsule for total 90mg daily, # 30 capsule, 5 Refills, Maintenance, 03/09/22 11:52:00 EDT, [facility] #[id number], 157.5, cm, 02/09/22 19:12:00EDT, Height, 77, kg, 01/13/22 9:51:00 EDT, Dry Weight Start Date: 03/09/22 Status: Ordered ferrous sulfate 325 mg oral enteric coated tablet 1, tablet, By Mouth, Daily, # 30 tablet, Refills 1, Maintenance, 05/06/22 11:08:00 EDT, Route to Pharmacy Electronically, [facility] #[id number], 157.5, cm, 05/01/22 9:45:00 EDT, Height, 83.4, kg, 05/01/22 9:11:00 EDT, Dry Weight Start Date: 05/06/22 Status: Ordered Flovent HFA 110 mcg/inh inhalation aerosol 1 puffs, Inhalation, 2 times a day, rinse mouth and throat after use, # 1 each, 2 Refills, Maintenance, 08/07/22 10:36:00 EST, Aerosol, [facility] #[id number], Partial fill upon patient request if the [...] 60 tablet, 2 Refills,Maintenance, 05/06/22 11:08:00 EDT, [facility] #[id number], 157.5, cm, 05/01/22 9:45:00 EDT, Height, 83.4, kg, 05/01/22 9:11:00 EDT, Dry Weight Start Date: 05/06/22 Status: Ordered ipratropium nasal 21 mcg/inh spray See Instructions, PRN Nasal Congestion, 1 spray each nostril BID, # 1 each, 4 Refills, Maintenance,06/04/22 11:24:00 EDT, [facility] #[id number], Partial fill upon patient request if the [...] Refills, Maintenance, 09/02/22 23:37:00 EST, CR Tablet, [facility] #[id number], Partial fill upon patient request if the [...] 90 tablet, 3 Refills, 06/23/22 14:01:00 EDT, [facility] #[id number], 157.5, cm, 06/23/22 13:25:00 EDT, Height, 81.3, [...] arthroscopic knee surgery: 2006 & 2008 at [facility] Confirmed Active Status post knee surgery, [facility] 05/02/01 Confirmed 05/02/01 Active Lumbar facet joint [...] Alex Putnam M.D. at [facility] 7Retrial prescribed 12/17/20. On 01/15, at [...] Name: Sandhya Tsai MD, Cj Reyna Position: [facility] Anesthesiology MD Member Role: Lifetime Consulting Physician Address: Address: [address] [place] [address] [place] [address]- Name: Tito Alvarado MD Position: [facility] Primary Care Physician Member Role: PCP Address: Address: [address] [place] [address] Adult & [place] [address]- Care Team Related Persons Name: BRAYAN VELAZCO Address: home [address] [place] [address] Name: NOEL LIZAMA Address: home [address] [place] [id number] Name: FADY NIELSON Address: home [address] [place] [address]
--- OUTSIDE RECORDS SUMMARY | 2024-06-15 11:24 | XMS_ITS | Continuity of Care Document ---
Author Organization [facility] Address [address] [place] [address]- Care Team Providers Care Capacity Planning Analyst Name Role Phone Tito Alvarado MD Primary Care Physician [phone] Encounter [facility] Date(s): 05/07/21 - 06/06/21 [facility] [address] [place] [address]- Allergies, Adverse Reactions, Alerts Substance Reaction Severity [...] 03/17/21 15:51:00 EDT, Route to Pharmacy Electronically, [facility] #[id number], 163, cm, 03/17/21 13:56:00 EDT, Height Start [...] capsule, 2 Refills, Maintenance, 05/26/21 10:29:00 EDT, [facility] #[id number], 163, cm, 05/14/21 7:35:00 EDT, Height Start Date: 05/26/21 Status: Ordered topiramate 100 mg oral tablet 2 tablet = 200 mg, By Mouth, Daily at bedtime, # 56 tablet, 2 Refills, Maintenance, 03/17/21 15:50:00 EDT, [id number], 163, cm, 03/17/21 13:56:00 EDT, Height Start [...] [facility](Confirmed) Active Status post knee surgery, [facility] 05/02/01(Confirmed) 05/02/01 Active Lumbar facet [...] moderate disability ) on 05/26/17; updated [facility] Back Pain Disability Scale score: 18 on 05/26/17. 9Initial Oswestry Disability Index: 50% ( severe disability ) on 03/31/16; initial Neck Disability Index: 42% ( severe disability ) on 03/31/16; initial [facility] Back Pain Disability Scale score: 46 on 03/31/16. 10On 09/30/17 underwent Tenolysis, right thumb, for Right trigger thumb by Alex Putnam M.D. at [facility] 11Retrial prescribed 12/17/20. On 01/15, at [...]
--- OUTSIDE RECORDS SUMMARY | 2024-06-15 11:24 | XMS_ITS | Continuity of Care Document ---
Author Organization [facility] Address [address] [place] [address]- Care Team Providers Care Dcs Engineer Name Role Phone Jo-Ann Cho MD Primary Care Physician [phone] [id number] Date([facility]17/20 - [facility]28[facility] [address] [place] [id number] Attending Physician: Cj Arthur Jr, MD Admitting [...] tablet, 0 Refills, Maintenance, 01/29/21 9:17:00 EDT, [facility] #[id number], Please also refill fluoxetine. Thank you!, 1 [...] film, 0 Refills, Maintenance, 02/04/21 11:19:00 EDT, [facility] #[id number], Partial fill upon patient request, 163, cm, 02/04/21 8:59:00 EDT, Height, 64.2, kg, 03/18/19 12:29:00 EDT, Dry Weight Start Date: 02/04/21 Status: Ordered FLUoxetine 20 mg oral capsule 60 mg, 3, capsule, By Mouth, Daily, # 84 capsule, Refills 2, Tot. Refills 2, Maintenance, 12/23/20 17:07:00 EDT, Route to Pharmacy Electronically, [facility] #[id number], 163, cm, 12/23/20 13:59:00 EDT, Height, 64.2, kg, 03/18/19 12:29:00 EDT, . Start Date: 12/23/20 Status: Ordered HYDROmorphone 4 mg oral tablet 1 tablet = 4 mg, By Mouth, 5 times a day, PRN breakthrough pain. STOP hydrocodone/APAP, # 70 tablet, 0 Refills, Maintenance, 01/23/21 12:31:00 EDT, [facility] #[id number], Partial fill upon patient request, 163, cm, [...] tablet, 2 Refills, Maintenance, 11/21/20 8:46:00 EDT, [facility] #[id number], 163, cm, 11/21/20 7:51:00 EDT, Height, 64.2, [...] trigger thumb by Alex Putnam M.D. at [facility] 10Retrial prescribed 12/17/20. On 01/15, at [...]
--- OUTSIDE RECORDS SUMMARY | 2024-06-15 11:24 | XMS_ITS | Continuity of Care Document ---
Author Organization [facility] Address [address] [place] [address]- Care Team Providers Care Retail Business Manager Name Role Phone Tito Alvarado MD Primary Care Physician [id number] Date(s): 12/12/21 - 12/19/21 [facility] [address] [place], [place] [address] Encounter Diagnosis Anxiety, generalized(Discharge Diagnosis) - 12/13/21 Memory deficit(Discharge Diagnosis) - 12/13/21 Restless leg syndrome(Discharge Diagnosis) - 12/13/21 Depression, major, recurrent, moderate(Discharge Diagnosis) - 12/13/21 Neck swelling(Discharge Diagnosis) - 12/13/21 Attending Physician: Tito Alvarado MD Allergies, Adverse [...] 12/12/21 11:12:00 EDT, Route to Pharmacy Electronically, [facility] #[id number], Partial fill upon patient request if the [...] Refills, Maintenance, 10/02/21 15:44:00 EST, EC Capsule, [facility] #[id number], Partial fill upon patient request if the prescription... Start Date: 10/02/21 Status: Ordered duloxetine 60 mg oral enteric coated capsule 1 capsule = 60 mg, By Mouth, Daily, fill when patient next requests. To be taken with 30mg cap for total 90mg daily dose, # 30 capsule, 3 Refills, Maintenance, 10/02/21 15:45:00 EST, [facility] #[id number], 163, cm, 08/27/21 9:26:00 EST, Height,... Start Date: 10/02/21 Status: Ordered ferrous sulfate 325 mg oral enteric coated tablet 325 mg, 1, tablet, By Mouth, Daily, # 30 tablet, Refills 2, Tot. Refills 2, Maintenance, 12/05/21 11:39:00 EDT, Route to Pharmacy Electronically, [facility] #[id number], Partial fill upon patient request if the prescription is for a schedule II o... Start Date: 12/05/21 Status: Ordered hydrOXYzine hydrochloride 25 mg oral tablet 1-1.5 tablet, By Mouth, 3 times a day, PRN for anxiety, dose increase, # 60 tablet, 1 Refills, Maintenance, 10/08/21 14:51:00 EST, Tablet, [facility] #[id number], Partial fill upon patient request if the [...] 11/25/21 18:16:00 EDT, Route to Pharmacy Electronically, [facility] #[id number], Partial fill upon patient request if the prescriptio... Start Date: 11/25/21 Status: Ordered Paxlovid 150 mg-100 mg oral tablet See Instructions, nirmatrelvir 2 tabs PO and ritonavir 1 tab PO BID for 5 days, # 30 tablet, 0 Refills, Maintenance, 12/15/21 9:13:00 EDT, [facility] #[id number], Partial fill upon patient request if the [...] tablet, 1 Refills,Maintenance, 12/05/21 11:52:00 EDT, Tablet, [facility] #[id number], Partial fill upon patient request if the prescription is for a schedule II opi... Start Date: 12/05/21 Status: Ordered tiZANidine 4 mg oral tablet 2 mg, 0.5, tablet, By Mouth, 3 times a day, PRN, # 45 tablet, Refills 0, Tot. Refills 0, Maintenance, Spasm, 11/25/21 18:16:00 EDT, Route to Pharmacy Electronically, [facility] #[id number], Partial fill upon patient request if the [...] [facility](Confirmed) Active Status post knee surgery, [facility] 05/02/01(Confirmed) 05/02/01 Active Lumbar facet [...] trigger thumb by Alex Putnam M.D. at [facility] 12Retrial prescribed 12/17/20. On 01/15, [...] Service Informant Restless leg syndrome Discharge Diagnosis 12/13/21 Memory deficit Discharge Diagnosis 12/13/21 Anxiety, generalized Discharge Diagnosis 12/13/21 Depression, major, recurrent, moderate Discharge Diagnosis 12/13/21 Neck swelling Discharge Diagnosis 12/13/21 Vital Signs Most recent to oldest [Reference Range]: 1 Height 157.5 cm (12/12/21 10:35 AM) Weight 73.6 kg (12/12/21 10:35 AM) Pulse Rate [55-90 bpm] 91 bpm *H* (12/12/21 10:35 AM) Body Mass Index [18.5-24.99] 29.67 *H* (12/12/21 10:35 AM) Blood Pressure [90-138/55-84 mm Hg] 134/ 76mm Hg (12/12/21 10:35 AM) Blood pressure sites Arm, right (12/12/21 10:35 AM) Social History Social History Type Response Smoking Status Former smoker; Stopp ed at age: 50; entered on: 03/11/17 Sex Female
--- OUTSIDE RECORDS SUMMARY | 2024-06-15 11:24 | XMS_ITS | Continuity of Care Document ---
Author Organization [facility] Address [address] [place] [address]- Care Team Providers Care Multimedia Technician Name Role Phone Christiano FANG, Tito England Primary Care Physician Encounter [facility] Date(s): 09/19/21 - 10/19/[address] [facility] [address] [place] [address]- Allergies, Adverse Reactions, Alerts Substance Reaction Severity [...] Refills, Maintenance, 10/02/21 15:44:00 EST, EC Capsule, [facility] #[id number], Partial fill upon patient request if the prescription... Start Date: 10/02/21 Status: Ordered duloxetine 60 mg oral enteric coated capsule 1 capsule = 60 mg, By Mouth, Daily, fill when patient next requests. To be taken with 30mg cap for total 90mg daily dose, # 30 capsule, 3 Refills, Maintenance, 10/02/21 15:45:00 EST, [facility] #[id number], 163, cm, 08/27/21 9:26:00 EST, Height,... Start Date: 10/02/21 Status: Ordered hydrOXYzine hydrochloride 25 mg oral tablet 1-1.5 tablet, By Mouth, 3 times a day, PRN for anxiety, dose increase, # 60 tablet, 1 Refills, Maintenance, 10/08/21 14:51:00 EST, Tablet, [facility] #[id number], Partial fill upon patient request if the [...] Gm, 1 Refills, Maintenance, 09/17/21 13:09:00 EST, [facility] #[id number], Partial fill upon patient request if the prescription is for a schedule II opioid drug., 163, cm, 08/27/21 9:26:00 EST, Height, 63... Start Date: 09/17/21 Status: Ordered NuLYTELY with Flavor Packs oral powder for reconstitution See Instructions, Drink 240mL every 15-20 minutes until first half is gone. Repeat 6 hours prior toprocedure., # 4,000 mL, 0 Refills, Maintenance, 09/17/21 13:09:00 EST, [facility] #[id number],Partial fill upon patient request if the prescript... [...] Gm, 0 Refills, Maintenance, 09/23/21 13:03:00 EST, [facility] #[id number], Partial fill upon patient request if the [...] 08/08/21 16:04:00 EST, Route to Pharmacy Electronically, [facility] #[id number], Partial fi... Start Date: 08/08/21 Stop Date: 11/06/21 Status: Ordered topiramate 100 mg oral tablet 3 tablet = 300 mg, By Mouth, Daily at bedtime, # 84 tablet, 1 Refills, Maintenance, 08/26/21 14:05:00 EST, [facility] #[id number], 163, cm, 08/06/21 14:34:00 EST, Height, 63, [...] Refills, Soft Stop, 08/19/21 12:22:00 EST, Tablet, [facility] #[id number], Partial fill upon patient request if the [...] Health Services(Confirmed) Active Status post knee surgery, [facility] 05/02/01(Confirmed) 05/02/01 Active Lumbar [...] trigger thumb by Alex Putnam M.D. at [facility] 12Retrial prescribed 12/17/20. On 01/15, at 10mg [...]
--- OUTSIDE RECORDS SUMMARY | 2024-06-15 11:24 | XMS_ITS | Continuity of Care Document ---
Author Organization [facility] Address [address] [place] [address]- Care Team Providers Care Aircraft Mechanic Name Role Phone Tito Alvarado MD Primary Care Physician Encounter [facility] Date(s): 08/06/21 - 10/18/21 [facility] [address] [place] [address]- Attending Physician: Rigo Cano MD Admitting Physician: Rigo Cano MD Allergies, Adverse Reactions, Alerts Substance Reaction [...] Refills, Maintenance, 10/02/21 15:44:00 EST, EC Capsule, [facility] #[id number], Partial fill upon patient request if the prescription... Start Date: 10/02/21 Status: Ordered duloxetine 60 mg oral enteric coated capsule 1 capsule = 60 mg, By Mouth, Daily, fill when patient next requests. To be taken with 30mg cap for total 90mg daily dose, # 30 capsule, 3 Refills, Maintenance, 10/02/21 15:45:00 EST, [facility] #[id number], 163, cm, 08/27/21 9:26:00 EST, Height,... Start Date: 10/02/21 Status: Ordered hydrOXYzine hydrochloride 25 mg oral tablet 1-1.5 tablet, By Mouth, 3 times a day, PRN for anxiety, dose increase, # 60 tablet, 1 Refills, Maintenance, 10/08/21 14:51:00 EST, Tablet, [facility] #[id number], Partial fill upon patient request if the [...] Gm, 1 Refills, Maintenance, 09/17/21 13:09:00 EST, [facility] #[id number], Partial fill upon patient request if the prescription is for a schedule II opioid drug., 163, cm, 08/27/21 9:26:00 EST, Height, 63... Start Date: 09/17/21 Status: Ordered NuLYTELY with Flavor Packs oral powder for reconstitution See Instructions, Drink 240mL every 15-20 minutes until first half is gone. Repeat 6 hours prior toprocedure., # 4,000 mL, 0 Refills, Maintenance, 09/17/21 13:09:00 EST, [facility] #[id number],Partial fill upon patient request if the prescript... [...] Gm, 0 Refills, Maintenance, 09/23/21 13:03:00 EST, [facility] #[id number], Partial fill upon patient request if the [...] 08/08/21 16:04:00 EST, Route to Pharmacy Electronically, [facility] #[id number], Partial fi... Start Date: 08/08/21 Stop Date: 11/06/21 Status: Ordered topiramate 100 mg oral tablet 3 tablet = 300 mg, By Mouth, Daily at bedtime, # 84 tablet, 1 Refills, Maintenance, 08/26/21 14:05:00 EST, [facility] #[id number], 163, cm, 08/06/21 14:34:00 EST, Height, 63, [...] Refills, Soft Stop, 08/19/21 12:22:00 EST, Tablet, [facility] #[id number], Partial fill upon patient request if the [...] [facility](Confirmed) Active Status post knee surgery, [facility] 05/02/01(Confirmed) 05/02/01 Active Lumbar facet [...] disability ) on 05/26/17; updated [facility] Back Pain Disability Scale score: 18 on 05/26/17. 10Initial Oswestry Disability Index: 50% ( severe disability ) on 03/31/16; initial Neck Disability Index: 42% ( severe disability ) on 03/31/16; initial [facility] Back Pain Disability Scale score: 46 on 03/31/16. 11On 09/30/17 underwent Tenolysis, right thumb, for Right trigger thumb by Alex Putnam M.D. at [facility] 12Retrial prescribed 4/27/21. On 01/15, at 10mg bid [...]
--- OUTSIDE RECORDS SUMMARY | 2024-06-15 11:24 | XMS_ITS | Continuity of Care Document ---
Author Organization [facility] Address [address] [place] [address]- Care Team Providers Care Diagnostics Tech Name Role Phone Christiano FANG, Tito England Primary Care Physician [place] [facility] Date(s): 06/15/22 - 07/15/22 [facility] [address] [place], [place] [address] Allergies, Adverse Reactions, Alerts Substance Reaction Severity Status codeine nausea Active iodinated radiocontrast dyes N/V Active Immunizations Given and Recorded Vaccine Date Status Refusal Reason influenza virus vaccine, inactivated 1 06/02/22 Gi laurie influenza virus vaccine, inactivated 06/05/18 Mars rded influenza virus vaccine, inactivated 06/17/17 Mars rded [id number] 12y+ bivalent booster vax 03/27/22 Recorded SARS-CoV-2 (COVID-19) mRNA BNT-162b2 vac 08/21/21 Recorded SARS-CoV-2 (COVID-19) Ad26 vaccine 12/02/20 Given Influenza Virus Vaccine (oldterm) 07/13/20 Recorde d zoster vaccine, inactivated 11/20/18 Recorded zoster vaccine, inactivated 09/17/18 Recorded tetanus/diphtheria/pertussis, acel(Tdap) 06/05/18 Recorded 1Result Comment: [facility]:[id number] Medications AutoASV EPAPmin 8 EPAPmax 12 PSmin [...] Refills, Maintenance, 06/23/22 14:08:00 EDT, ER Tablet, [facility] #[id number], Partial fillupon patient request if the prescription [...] capsule, 5 Refills, Maintenance, 03/09/22 11:52:00 EDT, [facility] #[id number], 157.5, cm, 02/09/22 19:12:00EDT, Height, 77, kg, 01/13/22 9:51:00 EDT, Dry Weight Start Date: 03/09/22 Status: Ordered ferrous sulfate 325 mg oral enteric coated tablet 1, tablet, By Mouth, Daily, # 30 tablet, Refills 1, Maintenance, 05/06/22 11:08:00 EDT, Route to Pharmacy Electronically, [facility] #[id number], 157.5, cm, 05/01/22 9:45:00 EDT, Height, 83.4, [...] 60 tablet, 2 Refills,Maintenance, 05/06/22 11:08:00 EDT, [facility] #[id number], 157.5, cm, 05/01/22 9:45:00 EDT, Height, 83.4, kg, 05/01/22 9:11:00 EDT, Dry Weight Start Date: 05/06/22 Status: Ordered ipratropium nasal 21 mcg/inh spray See Instructions, PRN Nasal Congestion, 1 spray each nostril BID, # 1 each, 4 Refills, Maintenance,06/04/22 11:24:00 EDT, [facility] #[id number], Partial fill upon patient request if the [...] 90 tablet, 3 Refills, 06/23/22 14:01:00 EDT, [facility] #[id number], 157.5, cm, 06/23/22 13:25:00 EDT, Height, 81.3, [...] Hospital Confirmed Active Status post knee surgery, [facility] 05/02/01 Confirmed 05/02/01 Active Lumbar [...] M.D. at [facility] 7Retrial prescribed 12/17/20. On [...] Name: Sandhya Tsai MD, Cj Reyna Position: [facility] Anesthesiology MD Member Role: Lifetime Consulting Physician Address: Address: [address] [place] [address] [place] [address]- Name: Tito Alvarado MD Position: [facility] Primary Care Physician Member Role: PCP Address: Address: [address] [place] [address] Adult & [place] [address]- Care Team Related Persons Name: BRAYAN VELAZCO Address: home [address] [place] [address] Name: NOEL LIZAMA Address: home [address] [place] [address] Name: FADY NIELSON Address: home [address] [place] [address]
--- OUTSIDE RECORDS SUMMARY | 2024-06-15 11:24 | XMS_ITS | Continuity of Care Document ---
Author Organization [facility] Address [address] [place] [address]- Care Team Providers Care Cotton Program Technician Name Role Phone Tito Alvarado MD Primary Care Physician [phone] [id number] Date(s[facility]/26[facility] - 04/02/22 [facility] [address] [place] [address]- Attending Physician: Yoana Hernandez DO Referring Physician: [...] 12/12/21 11:12:00 EDT, Route to Pharmacy Electronically, [facility] #[id number], Partial fill upon patient request if the [...] capsule, 5 Refills, Maintenance, 03/09/22 11:52:00 EDT, [facility] #[id number], 157.5, cm, 02/09/22 19:12:00EDT, Height, 77, kg, 01/13/22 9:51:00 EDT, Dry Weight Start Date: 03/09/22 Status: Ordered ferrous sulfate 325 mg oral enteric coated tablet 1, tablet, By Mouth, Daily, # 30 tablet, Refills 0, Route to Pharmacy Electronically, [facility] #[id number], 157.5, cm, 02/09/22 19:12:00 EDT, Height, 77, [...] NEEDED FOR ANXIETY, # 60 tablet, 0 Refills,[facility] #[id number], 157.5, cm, 02/09/22 19:12:00 EDT, Height, 77, [...] 2 Refills, Maintenance, 12/30/21 15:02:00 EDT, Tablet, [facility] #[id number], Partial fill upon patient request if the [...] kne e surgery: 2006 & 2009 at [facility](Confirmed) Active Status post knee surgery, [facility] [...] severe disability ) on 03/31/16; initial [facility] Back Pain Disability Scale score: 46 on 03/31/16. 11On 09/30/17 underwent Tenolysis, right thumb, for Right trigger thumb by Alex Putnam M.D. at [facility] 12Retrial prescribed 12/17/20. On 01/15, [...] on 03/31/2016 16ACE score: 0 on 07/01/17 Vital Signs Most recent to oldest [Reference Range]: 1 Height 157.5 cm (03/26/22 1:17 PM) Weight 75.8 kg (03/26/22 1:17 PM) Pulse Rate [55-90 bpm] 66 bpm (03/26/22 1:17 PM) Body Mass Index [18.5-24.99] 30.56 *>HHI* (03/26/22 1:17 PM) Blood Pressure [90-138/55-84 mm Hg] 138/ 80mm Hg (03/26/22 1:17 PM) Blood pressure sites Arm, right (03/26/22 1:17 PM) Social History Social History Type Response Smoking Status Former smoker; Stopp ed at age: 50; entered on: 03/11/17 Sex Female
--- OUTSIDE RECORDS SUMMARY | 2024-06-15 11:25 | XMS_ITS | Continuity of Care Document ---
Author Organization [facility] Address [address] [place] [address]- Care Team Providers Care Flight Purser Name Role Phone Tito Alvarado MD Primary Care Physician [place] [facility] [place] Date(s): 04/03/21 - 05/03/21 [facility] [address] [place] [address]- Allergies, Adverse Reactions, Alerts Substance Reaction Severity [...] opioid drug. Start Date: 04/21/21 Status: Ordered buprenorphine-naloxone 2 mg-0.5 mg sublingual film See Instructions, 0.25 film subling QID x 3 days, 0.25 film TID x 3 days, then 0.25 film BID x 3 days, then 0.25 film QD x 3 days, then stop. FOR chronic pain., # 8 film, 0 Refills, Maintenance, 04/21/21 12:49:00 EDT, [facility] #[id number], Ms.... Start Date: 04/21/21 Status: Ordered Calcium 600 [...] 03/17/21 15:51:00 EDT, Route to Pharmacy Electronically, [facility] #[id number], 163, cm, 03/17/21 13:56:00 EDT, Height Start Date: 03/17/21 Status: Ordered magnesium oxide 500 mg oral tablet 1 tablet = 500 mg, By Mouth, Daily, 0 Refills, Maintenance, 05/21/20 7:47:00 EDT Start Date: 05/21/20 Status: Ordered topiramate 100 mg oral tablet 2 tablet = 200 mg, By Mouth, Daily at bedtime, # 56 tablet, 2 Refills, Maintenance, 03/17/21 15:50:00 EDT, [facility] #[id number], 163, cm, 03/17/21 13:56:00 EDT, Height Start [...] [facility] Active Status post knee surgery, [facility] 05/02/01(Confirmed) 05/02/01 Active Lumbar facet joint [...] trigger thumb by Alex Putnam M.D. at [facility] 10Retrial prescribed 12/17/20. On 01/15, at 10mg [...]
--- OUTSIDE RECORDS SUMMARY | 2024-06-15 11:25 | XMS_ITS | Continuity of Care Document ---
Author Organization [facility] Address [address] [place] [address]- Care Team Providers Care Buffing Wheel Presser Name Role Phone Christiano FANG, Tito England Primary Care Physician En[facility] [place] Date(s): 09/10/21 - 10/10/21 [facility] [address] [place] [address]- Allergies, Adverse Reactions, Alerts Substance Reaction Severity [...] Refills, Maintenance, 10/02/21 15:44:00 EST, EC Capsule, [facility] #[id number], Partial fill upon patient request if the prescription... Start Date: 10/02/21 Status: Ordered duloxetine 60 mg oral enteric coated capsule 1 capsule = 60 mg, By Mouth, Daily, fill when patient next requests. To be taken with 30mg cap for total 90mg daily dose, # 30 capsule, 3 Refills, Maintenance, 10/02/21 15:45:00 EST, [facility] #[id number], 163, cm, 08/27/21 9:26:00 EST, Height,... Start Date: 10/02/21 Status: Ordered hydrOXYzine hydrochloride 25 mg oral tablet 1-1.5 tablet, By Mouth, 3 times a day, PRN for anxiety, dose increase, # 60 tablet, 1 Refills, Maintenance, 10/08/21 14:51:00 EST, Tablet, [facility] #[id number], Partial fill upon patient request if the [...] Gm, 1 Refills, Maintenance, 09/17/21 13:09:00 EST, [facility] #[id number], Partial fill upon patient request if the prescription is for a schedule II opioid drug., 163, cm, 08/27/21 9:26:00 EST, Height, 63... Start Date: 09/17/21 Status: Ordered NuLYTELY with Flavor Packs oral powder for reconstitution See Instructions, Drink 240mL every 15-20 minutes until first half is gone. Repeat 6 hours prior toprocedure., # 4,000 mL, 0 Refills, Maintenance, 09/17/21 13:09:00 EST, [facility] #[id number],Partial fill upon patient request if the prescript... [...] Gm, 0 Refills, Maintenance, 09/23/21 13:03:00 EST, [facility] #[id number], Partial fill upon patient request if the [...] 08/08/21 16:04:00 EST, Route to Pharmacy Electronically, [facility] #[id number], Partial fi... Start Date: 08/08/21 Stop Date: 11/06/21 Status: Ordered topiramate 100 mg oral tablet 3 tablet = 300 mg, By Mouth, Daily at bedtime, # 84 tablet, 1 Refills, Maintenance, 08/26/21 14:05:00 EST, [facility] #[id number], 163, cm, 08/06/21 14:34:00 EST, Height, 63, [...] Refills, Soft Stop, 08/19/21 12:22:00 EST, Tablet, [facility] #[id number], Partial fill upon patient request if the [...] [facility](Confirmed) Active Status post knee surgery, [facility] [...] by Alex Putnam M.D. at [facility] 12Retrial prescribed 12/17/20. On 01/15, at [...]
--- OUTSIDE RECORDS SUMMARY | 2024-06-15 11:25 | XMS_ITS | Continuity of Care Document ---
Author Organization [facility] Address [address] [place] [address]- Care Team Providers Care Manager Medicaid Name Role Phone Ronnie FANG, Johann Briggs Primary Care Physician Encounter [facility] [place] Date(s): 01/07/23 - 02/06/23 [facility] [address] [address]- Attending Physician: Margaret Vargas Admitting Physician: Margaret Vargas Referring Physician: Margaret Vargas Allergies, Adverse Reactions, Alerts Substance Reaction Severity Status codeine nausea Active iodinated radiocontrast dyes N/V Active Immunizations Given and Recorded Vaccine Date Status Refusal Reason influenza virus vaccine, inactivated 1 06/02/22 Gi laurie influenza virus vaccine, inactivated 06/05/18 Mars rded influenza virus vaccine, inactivated 06/17/17 Mars rded [id number] 12y+ bivalent booster vax 03/27/22 Recorded SARS-CoV-2 (COVID-19) mRNA BNT-162b2 vac 08/21/21 Recorded SARS-CoV-2 (COVID-19) Ad26 vaccine 12/02/20 Given Influenza Virus Vaccine (oldterm) 07/13/20 Recorde d zoster vaccine, inactivated 11/20/18 Recorded zoster vaccine, inactivated 09/17/18 Recorded tetanus/diphtheria/pertussis, acel(Tdap) 06/05/18 Recorded 1Result Comment: [facility]:[id number] Medications AutoASV EPAPmin 8 EPAPmax 12 PSmin [...] Refills, Maintenance, 11/10/22 10:38:00 EDT, ER Tablet, [facility] #[id number], Partial fill upon patient request if theprescription [...] capsule, 5 Refills, Maintenance, 12/15/22 12:42:00 EDT, [facility] #[id number], 157.5, cm, 12/07/22 11:15:00 EDT, Height, 85, kg, 11/10/22 10:21:00 EDT, Dry Weight Start Date: 12/15/22 Status: Ordered ferrous sulfate 325 mg oral enteric coated tablet 1, tablet, By Mouth, Daily, # 30 tablet, Refills 1, Maintenance, 05/06/22 11:08:00 EDT, Route to Pharmacy Electronically, [facility] #[id number], 157.5, cm, 05/01/22 9:45:00 EDT, Height, 83.4, kg, 05/01/22 9:11:00 EDT, Dry Weight Start Date: 05/06/22 Status: Ordered gabapentin 100 mg oral capsule 100 mg, 1, capsule, By Mouth, 3 times a day, # 90 capsule, Refills 1, Tot. Refills 1, Maintenance, 12/07/22 11:26:00 EDT, Route to Pharmacy Electronically, [facility] #[id number], Partial fill upon patient request if the prescription is for a armond... Start Date: 12/07/22 Status: Ordered hydrOXYzine hydrochloride 25 mg oral tablet 1 TO 1 AND 1/2 TABLETS, By Mouth, 3 times a day, PRN NEEDED FOR ANXIETY, # 120 tablet, 0 Refills, Maintenance, 01/14/23 23:42:00 EDT, [facility] #[id number], 157.5, cm, 12/07/22 11:15:00 EDT,Height, 85, kg, 11/10/22 10:21:00 EDT, Dry Weight Start Date: 01/14/23 Status: Ordered ipratropium nasal 21 mcg/inh spray See Instructions, PRN Nasal Congestion, 1 spray each nostril BID, # 1 each, 4 Refills, Maintenance,06/04/22 11:24:00 EDT, [facility] #[id number], Partial fill upon patient request if the [...] Refills, Maintenance, 09/02/22 23:37:00 EST, CR Tablet, [facility] #[id number], Partial fill upon patient request if the prescription is for a schedule II opioid drug., 157.5, cm, 08/07/22 10:53:0... Start Date: 09/02/22 Status: Ordered pramipexole 0.125 mg oral tablet 3 tablet, By Mouth, Daily at bedtime, # 90 tablet, 3 Refills, Maintenance, 10/12/22 18:54:00 EST, [facility] #[id number], 157.5, cm, 08/07/22 10:53:00 EST, Height, 82.8, [...] post knee surgery, [facility] 05/02/01 Confirmed 05/02/01 Active Hypertension [...] Name: Sandhya Tsai MD, Cj Reyna Position: [facility] Anesthesiology MD Member Role: Lifetime Consulting Physician Address: Address: [address] [place] [address] [place] [address]- [place] Name: Johann Trujillo MD Position: Reference Physician Member Role: PCP Address: Address: [address] [place] [id number]- Care Team Related Persons Name: BRAYAN VELAZCO Address: [address] [place] [address] Name: ABDON VELAZCO Name: NOEL LIZAMA Address: [address] [place] [address] Name: FADY NIELSON Address: [address] [place] [address]
--- OUTSIDE RECORDS SUMMARY | 2024-06-15 11:25 | XMS_ITS | Continuity of Care Document ---
Author Organization [facility] Address [address] [place] [address]- Care Team Providers Care Boring And Filling Machine Operator Name Role Phone Tito Alvarado MD Primary Care Physician [phone] [place] [facility] [id number] Date(s): 05/01/22 - 05/08/22 [facility] [address] [place] [address]- Encounter Diagnosis Right-sided low back pain without sciatica(Discharge Diagnosis) - 05/01/22 Anxiety, generalized(Discharge Diagnosis) - 05/01/22 Class 1 obesity in adult(Discharge Diagnosis) - 05/01/22 Attending Physician: Tito Alvarado MD Allergies, Adverse [...] capsule, 5 Refills, Maintenance, 03/09/22 11:52:00 EDT, [facility] #[id number], 157.5, cm, 02/09/22 19:12:00EDT, Height, 77, kg, 01/13/22 9:51:00 EDT, Dry Weight Start Date: 03/09/22 Status: Ordered ferrous sulfate 325 mg oral enteric coated tablet 1, tablet, By Mouth, Daily, # 30 tablet, Refills 1, Maintenance, 05/06/22 11:08:00 EDT, Route to Pharmacy Electronically, [facility] #[id number], 157.5, cm, 05/01/22 9:45:00 EDT, Height, 83.4, [...] 60 tablet, 2 Refills,Maintenance, 05/06/22 11:08:00 EDT, [facility] #[id number], 157.5, cm, 05/01/22 9:45:00 EDT, Height, 83.4, [...] a day, # 60 tablet, 3 Refills, [facility] #[id number], 157.5, cm, 03/26/22 13:17:00 EDT, Height, 77, [...] [facility](Confirmed) Active Status post knee surgery, [facility] 05/02/01(Confirmed) 05/02/01 Active Lumbar facet [...] by Alex Putnam M.D. at [facility] 12Retrial prescribed 12/17/20. On 01/15, at [...] Effective Dates Health Status Clinical Service Informant Right-sided low back pain without sciatica Discharge Diagnosis 05/01/22 Anxiety, generalized Discharge Diagnosis 05/01/22 Class 1 obesity in adult Discharge Diagnosis 05/01/22 Vital Signs Most recent to oldest [Reference Range]: 1 2 Height 157.5 cm (05/01/22 9:45 AM) 157.5 cm (05/01/22 9:11 AM) Weight 83.4 kg (05/01/22 9:11 AM) Oxygen Saturation [94-100 %] 97 % (05/01/22 9:11 AM) Pulse Rate [55-90 bpm] 77 bpm (05/01/22 9:11 AM) Body Mass Index [18.5-24.99] 33.62 *>HHI* (05/01/22 9:11 AM) Blood Pressure [90-138/55-84 mm Hg] 154/ 86mm Hg *H* (05/01/22 9:45 AM) 154/84mm Hg *H* (05/01/22 9:11 AM) Temperature [96.8-100.4 DegF] 97.8 DegF (05/01/22 9:11 AM) Mode of Delivery (Oxygen) Room air (05/01/22 9:11 AM) Blood pressure sites Arm, right (05/01/22 9:11 AM) Temperature Route Temporal (05/01/22 9:11 AM) Dry Weight 83.4 kg (05/01/22 9:11 AM) Weight Obtained Via Standing scale (05/01/22 9:11 AM) Social History Social History Type Response Smoking Status Former smoker; Stop ed at age: 50; entered on: 03/11/17 Sex Female Care Team Personnel Name: Christiano FANG, Tito England Address: [address] [place] [address] [facility] [address]
--- OUTSIDE RECORDS SUMMARY | 2024-06-15 11:25 | XMS_ITS | Continuity of Care Document ---
Author Organization [facility] Address [address] [place] [address]- Care Team Providers Care Dean Of Girls Name Role Phone Christiano FANG, Tito England Primary Care Physician Encounter [facility] [place] Date(s): 03/16/22 - 04/15/22 [facility] [address] [place], [place] [address] Allergies, Adverse Reactions, Alerts Substance [...] 12/12/21 11:12:00 EDT, Route to Pharmacy Electronically, [facility] #[id number], Partial fill upon patient request if the [...] capsule, 5 Refills, Maintenance, 03/09/22 11:52:00 EDT, [facility] #[id number], 157.5, cm, 02/09/22 19:12:00EDT, Height, 77, kg, 01/13/22 9:51:00 EDT, Dry Weight Start Date: 03/09/22 Status: Ordered ferrous sulfate 325 mg oral enteric coated tablet 1, tablet, By Mouth, Daily, # 30 tablet, Refills 0, Route to Pharmacy Electronically, [facility] #[id number], 157.5, cm, 03/26/22 13:17:00 EDT, Height, 77, [...] NEEDED FOR ANXIETY, # 60 tablet, 0 Refills,[facility] #[id number], 157.5, cm, 02/09/22 19:12:00 EDT, Height, 77, [...] a day, # 60 tablet, 3 Refills, [facility] #[id number], 157.5, cm, 03/26/22 13:17:00 EDT, Height, 77, [...] Medical Center(Confirmed) Active Status post knee surgery, [facility] 05/02/01(Confirmed) 05/02/01 Active Lumbar facet [...] trigger thumb by Alex Putnam M.D. at [facility] 12Retrial prescribed 12/17/20. On 01/15, at [...]
--- OUTSIDE RECORDS SUMMARY | 2024-06-15 11:25 | XMS_ITS | Continuity of Care Document ---
Author Organization [facility] Address [address] [place] [address]- Care Team Providers Care Interventional Tech Name Role Phone Christiano FANG, Tito England Primary Care Physician [place] [facility] [place]19[place] - 05/19/22 [facility] [address] [place], [place] [address] Allergies, Adverse Reactions, Alerts Substance [...] capsule, 5 Refills, Maintenance, 03/09/22 11:52:00 EDT, [facility] #[id number], 157.5, cm, 02/09/22 19:12:00EDT, Height, 77, kg, 01/13/22 9:51:00 EDT, Dry Weight Start Date: 03/09/22 Status: Ordered ferrous sulfate 325 mg oral enteric coated tablet 1, tablet, By Mouth, Daily, # 30 tablet, Refills 1, Maintenance, 05/06/22 11:08:00 EDT, Route to Pharmacy Electronically, [facility] #[id number], 157.5, cm, 05/01/22 9:45:00 EDT, Height, 83.4, [...] 60 tablet, 2 Refills,Maintenance, 05/06/22 11:08:00 EDT, [facility] #[id number], 157.5, cm, 05/01/22 9:45:00 EDT, Height, 83.4, [...] a day, # 60 tablet, 3 Refills, [facility] #[id number], 157.5, cm, 03/26/22 13:17:00 EDT, Height, 77, [...] kne e surgery: 2006 & 2008 at [facility](Confirmed) Active Status post knee surgery, [facility] 05/02/01(Confirmed) 05/02/01 Active Lumbar facet [...] Index: 48% ( severe disability ); updated [place] Back Pain Disability Scale score: 61; both [...] Personnel Name: Christiano FANG, Tito England Address: [address] [place] [address] [facility] [address]
--- OUTSIDE RECORDS SUMMARY | 2024-06-15 11:25 | XMS_ITS | Continuity of Care Document ---
Author Organization [facility] Address [address] [place] [address]- Care Team Providers Care Warper Fixer Name Role Phone Christiano FANG, Tito England Primary Care Physician Encounter [facility] [place] Date(s): 09/25/21 - 10/25/21 [facility] [address] [place] [address]- Allergies, Adverse Reactions, Alerts Substance Reaction Severity [...] Refills, Maintenance, 10/02/21 15:44:00 EST, EC Capsule, [facility] #[id number], Partial fill upon patient request if the prescription... Start Date: 10/02/21 Status: Ordered duloxetine 60 mg oral enteric coated capsule 1 capsule = 60 mg, By Mouth, Daily, fill when patient next requests. To be taken with 30mg cap for total 90mg daily dose, # 30 capsule, 3 Refills, Maintenance, 10/02/21 15:45:00 EST, [facility] #[id number], 163, cm, 08/27/21 9:26:00 EST, Height,... Start Date: 10/02/21 Status: Ordered hydrOXYzine hydrochloride 25 mg oral tablet 1-1.5 tablet, By Mouth, 3 times a day, PRN for anxiety, dose increase, # 60 tablet, 1 Refills, Maintenance, 10/08/21 14:51:00 EST, Tablet, [facility] #[id number], Partial fill upon patient request if the [...] Gm, 1 Refills, Maintenance, 09/17/21 13:09:00 EST, [facility] #[id number], Partial fill upon patient request if the prescription is for a schedule II opioid drug., 163, cm, 08/27/21 9:26:00 EST, Height, 63... Start Date: 09/17/21 Status: Ordered NuLYTELY with Flavor Packs oral powder for reconstitution See Instructions, Drink 240mL every 15-20 minutes until first half is gone. Repeat 6 hours prior toprocedure., # 4,000 mL, 0 Refills, Maintenance, 09/17/21 13:09:00 EST, [facility] #[id number],Partial fill upon patient request if the prescript... [...] Gm, 0 Refills, Maintenance, 09/23/21 13:03:00 EST, [facility] #[id number], Partial fill upon patient request if the [...] 08/08/21 16:04:00 EST, Route to Pharmacy Electronically, [facility] #[id number], Partial fi... Start Date: 08/08/21 Stop Date: 11/06/21 Status: Ordered topiramate 100 mg oral tablet 3 tablet = 300 mg, By Mouth, Daily at bedtime, # 84 tablet, 1 Refills, Maintenance, 08/26/21 14:05:00 EST, [facility] #[id number], 163, cm, 08/06/21 14:34:00 EST, Height, 63, [...] Refills, Soft Stop, 08/19/21 12:22:00 EST, Tablet, [facility] #[id number], Partial fill upon patient request if the [...] Center(Confirmed) Active Status post knee surgery, [facility] 05/02/01(Confirmed) 05/02/01 Active Lumbar facet joint [...] Alex Putnam M.D. at [facility] 12Retrial prescribed 12/17/20. On 01/15, [...]
--- OUTSIDE RECORDS SUMMARY | 2024-06-15 11:25 | XMS_ITS | Continuity of Care Document ---
Author Organization [facility] Address [address] [place] [address]- Care Team Providers Care Visual Merchandising Assistant Name Role Phone Christiano FANG, Tito England Primary Care Physician Encounter [facility] [place] Date(s): 08/27/21 - 09/03/21 [facility] [address] [place], [place] [address] Encounter Diagnosis Anxiety(Discharge Diagnosis) - 08/27/21 Attending Physician: Ilene HARDWARE SALES ASSISTANT, Clarisse Allergies, Adverse Reactions, Alerts Substance Reaction Severity [...] capsule, 3 Refills, Maintenance, 07/14/21 9:37:00 EST, [facility] #[id number], 163, cm, 07/02/21 14:28:00 EST, Height Start [...] 08/08/21 16:04:00 EST, Route to Pharmacy Electronically, [facility] #[id number], Partial fi... Start Date: 08/08/21 Stop Date: 11/06/21 Status: Ordered topiramate 100 mg oral tablet 3 tablet = 300 mg, By Mouth, Daily at bedtime, # 84 tablet, 1 Refills, Maintenance, 08/26/21 14:05:00 EST, [facility] #[id number], 163, cm, 08/06/21 14:34:00 EST, Height, 63, [...] Refills, Soft Stop, 08/19/21 12:22:00 EST, Tablet, [facility] #[id number], Partial fill upon patient request if the [...] [facility] Center(Confirmed) Active Status post [facility], [facility] [...] moderate disability ) on 05/26/17; updated [facility] Back Pain Disability Scale score: 18 on 05/26/17. 10Initial Oswestry Disability Index: 50% ( severe disability ) on 03/31/16; initial Neck Disability Index: 42% ( severe disability ) on 03/31/16; initial [facility] Back Pain Disability Scale score: [...] Diagnosis Diagnosis Type Effective Dates Health Status Clini sebastian Service Informant Anxiety Discharge Diagnosis 08/27/21 Vital Signs Most recent to oldest [Reference Range]: 1 Height 163 cm (08/27/21 9:26 AM) Oxygen Saturation [94-100 %] 99 % (08/27/21 9:26 AM) Pulse Rate [55-90 bpm] 109 bpm *H* (08/27/21 9:26 AM) Blood Pressure [90-138/55-84 mm Hg] 126/ 81mm Hg (08/27/21 9:26 AM) Temperature [96.8-100.4 DegF] 98.3 DegF (08/27/21 9:26 AM) Mode of Delivery (Oxygen) Room air (08/27/21 9:26 AM) Blood pressure sites Arm, left (08/27/21 9:26 AM) Social History Social History Type Response Smoking Status Former smoker; Stop ed at age: 50; entered on: 03/11/17 Sex Female
--- OUTSIDE RECORDS SUMMARY | 2024-06-15 11:25 | XMS_ITS | Continuity of Care Document ---
Author Organization [facility] Address [address] [place] [address]- Care Team Providers Care Office Messenger Name Role Phone Christiano FANG, Tito England Primary Care Physician [place] [facility] [place] - 01/02/22 [facility] [address] [place], [place] [address] Allergies, Adverse Reactions, Alerts Substance [...] 12/12/21 11:12:00 EDT, Route to Pharmacy Electronically, [facility] #[id number], Partial fill upon patient request if the [...] Refills, Maintenance, 10/02/21 15:44:00 EST, EC Capsule, [facility] #[id number], Partial fill upon patient request if the prescription... Start Date: 10/02/21 Status: Ordered duloxetine 60 mg oral enteric coated capsule 1 capsule = 60 mg, By Mouth, Daily, fill when patient next requests. To be taken with 30mg cap for total 90mg daily dose, # 30 capsule, 3 Refills, Maintenance, 10/02/21 15:45:00 EST, [facility] #[id number], 163, cm, 08/27/21 9:26:00 EST, Height,... Start Date: 10/02/21 Status: Ordered ferrous sulfate 325 mg oral enteric coated tablet 325 mg, 1, tablet, By Mouth, Daily, # 30 tablet, Refills 2, Tot. Refills 2, Maintenance, 12/05/21 11:39:00 EDT, Route to Pharmacy Electronically, [facility] #[id number], Partial fill upon patient request if the prescription is for a schedule II o... Start Date: 12/05/21 Status: Ordered hydrOXYzine hydrochloride 25 mg oral tablet 1-1.5 tablet, By Mouth, 3 times a day, PRN for anxiety, dose increase, # 60 tablet, 1 Refills, Maintenance, 10/08/21 14:51:00 EST, Tablet, [facility] #[id number], Partial fill upon patient request if the [...] 11/25/21 18:16:00 EDT, Route to Pharmacy Electronically, [facility] #[id number], Partial fill upon patient request if the prescriptio... Start Date: 11/25/21 Status: Ordered Paxlovid 150 mg-100 mg oral tablet See Instructions, nirmatrelvir 2 tabs PO and ritonavir 1 tab PO BID for 5 days, # 30 tablet, 0 Refills, Maintenance, 12/15/21 9:13:00 EDT, [facility] #[id number], Partial fill upon patient request if the [...] 2 Refills, Maintenance, 12/30/21 15:02:00 EDT, Tablet, [facility] #[id number], Partial fill upon patient request if the prescription is for a schedule II opioid drug., 157.... Start Date: 12/30/21 Status: Ordered tiZANidine 4 mg oral tablet 2 mg, 0.5, tablet, By Mouth, 3 times a day, PRN, # 45 tablet, Refills 0, Tot. Refills 0, Maintenance, Spasm, 11/25/21 18:16:00 EDT, Route to Pharmacy Electronically, [facility] #[id number], Partial fill upon patient request if the [...] [facility] Active Status post knee surgery, [facility] 05/02/01(Confirmed) 05/02/01 Active Lumbar facet [...] trigger thumb by Alex Putnam M.D. at [facility] 12Retrial prescribed 12/17/20. On 01/15, at [...]
--- OUTSIDE RECORDS SUMMARY | 2024-06-15 11:25 | XMS_ITS | Continuity of Care Document ---
Author Organization [facility] Address [address] [place] [address]- Care Team Providers Care Newspaper Illustrator Name Role Phone Christiano FANG, Tito England Primary Care Physician [place] [facility] [place] Date(s): 08/29/22 - 09/28/22 [facility] [address] [place], [place] [address] Allergies, Adverse Reactions, Alerts Substance Reaction Severity Status codeine nausea Active iodinated radiocontrast dyes N/V Active Immunizations Given and Recorded Vaccine Date Status Refusal Reason influenza virus vaccine, inactivated 1 06/02/22 Gi laurie influenza virus vaccine, inactivated 06/05/18 Mars rded influenza virus vaccine, inactivated 06/17/17 Mars rded [id number] 12y+ bivalent booster vax 03/27/22 Recorded SARS-CoV-2 (COVID-19) mRNA BNT-162b2 vac 08/21/21 Recorded SARS-CoV-2 (COVID-19) Ad26 vaccine 12/02/20 Given Influenza Virus Vaccine (oldterm) 07/13/20 Recorde d zoster vaccine, inactivated 11/20/18 Recorded zoster vaccine, inactivated 09/17/18 Recorded tetanus/diphtheria/pertussis, acel(Tdap) 06/05/18 Recorded 1Result Comment: [facility]:[id number] Medications Aerochamber w/Mask (Large) See Instructions, # [...] 10:38:00 EST, Aerosol, Route to Pharmacy Electronically, [id number], [facility] #[id number], 1... Start Date: 08/07/22 Status: Ordered AutoASV [...] Refills, Maintenance, 06/23/22 14:08:00 EDT, ER Tablet, [facility] #[id number], Partial fillupon patient request if the prescription [...] 30 capsule, 5 Refills, 08/14/22 12:55:00 EST, [facility] #[id number], 157.5, cm, 08/07/22 10:53:00 EST, Height, 82.8, kg, 08/07/22 10:17:00 EST, Dry Weight Start Date: 08/14/22 Status: Ordered duloxetine 60 mg oral enteric coated capsule 1 capsule = 60 mg, By Mouth, Daily, take with 30mg capsule for total 90mg daily, # 30 capsule, 5 Refills, Maintenance, 03/09/22 11:52:00 EDT, [facility] #[id number], 157.5, cm, 02/09/22 19:12:00EDT, Height, 77, kg, 01/13/22 9:51:00 EDT, Dry Weight Start Date: 03/09/22 Status: Ordered ferrous sulfate 325 mg oral enteric coated tablet 1, tablet, By Mouth, Daily, # 30 tablet, Refills 1, Maintenance, 05/06/22 11:08:00 EDT, Route to Pharmacy Electronically, [facility] #[id number], 157.5, cm, 05/01/22 9:45:00 EDT, Height, 83.4, kg, 05/01/22 9:11:00 EDT, Dry Weight Start Date: 05/06/22 Status: Ordered Flovent HFA 110 mcg/inh inhalation aerosol 1 puffs, Inhalation, 2 times a day, rinse mouth and throat after use, # 1 each, 2 Refills, Maintenance, 08/07/22 10:36:00 EST, Aerosol, [facility] #[id number], Partial fill upon patient request if the [...] 60 tablet, 2 Refills,Maintenance, 05/06/22 11:08:00 EDT, [facility] #[id number], 157.5, cm, 05/01/22 9:45:00 EDT, Height, 83.4, kg, 05/01/22 9:11:00 EDT, Dry Weight Start Date: 05/06/22 Status: Ordered ipratropium nasal 21 mcg/inh spray See Instructions, PRN Nasal Congestion, 1 spray each nostril BID, # 1 each, 4 Refills, Maintenance,06/04/22 11:24:00 EDT, [facility] #[id number], Partial fill upon patient request if the [...] Refills, Maintenance, 09/02/22 23:37:00 EST, CR Tablet, [facility] #[id number], Partial fill upon patient request if the [...] 90 tablet, 3 Refills, 06/23/22 14:01:00 EDT, [facility] #[id number], 157.5, cm, 06/23/22 13:25:00 EDT, Height, 81.3, [...] arthroscopic knee surgery: 2006 & 2008 at [facility] Confirmed Active Status post knee surgery, [facility] 05/02/01 Confirmed 05/02/01 Active Lumbar [...] trigger thumb by Alex Putnam M.D. at [facility] 7Retrial prescribed 12/17/20. On 01/15, at 10mg [...] Tsai MD, Cj Reyna Position: [facility] Anesthesiology MD Member Role: Lifetime Consulting Physician Address: Address: [address] [place] [address] [place] [address]- Name: Tito Alvarado MD Position: [facility] Primary Care Physician Member Role: PCP Address: Address: [address] [place] [address] Adult & [place] [address]- Care Team Related Persons Name: BRAYAN VELAZCO Address: home [address] [place] [address] Name: NOEL LIZAMA Address: home [address] [place] [id number] Name: FADY NIELSON Address: home [address] [place] [address]
--- OUTSIDE RECORDS SUMMARY | 2024-06-15 11:25 | XMS_ITS | Continuity of Care Document ---
Author Organization [facility] Address [address] [place] [address]- Care Team Providers Care Order Builder Name Role Phone Christiano FANG, Tito England Primary Care Physician En[place] [facility] [place] Date(s): 12/29/21 - 01/28/22 [facility] [address] [place], [place] [address] Allergies, Adverse Reactions, Alerts Substance [...] 12/12/21 11:12:00 EDT, Route to Pharmacy Electronically, [facility] #[id number], Partial fill upon patient request if the [...] Refills, Maintenance, 10/02/21 15:44:00 EST, EC Capsule, [facility] #[id number], Partial fill upon patient request if the prescription... Start Date: 10/02/21 Status: Ordered duloxetine 60 mg oral enteric coated capsule 1 capsule = 60 mg, By Mouth, Daily, fill when patient next requests. To be taken with 30mg cap for total 90mg daily dose, # 30 capsule, 3 Refills, Maintenance, 10/02/21 15:45:00 EST, [facility] #[id number], 163, cm, 08/27/21 9:26:00 EST, Height,... Start Date: 10/02/21 Status: Ordered ferrous sulfate 325 mg oral enteric coated tablet 325 mg, 1, tablet, By Mouth, Daily, # 30 tablet, Refills 2, Tot. Refills 2, Maintenance, 12/05/21 11:39:00 EDT, Route to Pharmacy Electronically, [facility] #[id number], Partial fill upon patient request if the prescription is for a schedule II o... Start Date: 12/05/21 Status: Ordered hydrOXYzine hydrochloride 25 mg oral tablet 1-1.5 tablet, By Mouth, 3 times a day, PRN for anxiety, dose increase, # 60 tablet, 1 Refills, Maintenance, 01/09/22 13:02:00 EDT, Tablet, [facility] #[id number], Partial fill upon patient request if the [...] 02/12/22 11:37:00 EDT, 01/13/22 11:37:00 EDT, Tablet, [facility] #[id number], Partial fill upon patient request if the [...] 2 Refills, Maintenance, 12/30/21 15:02:00 EDT, Tablet, [facility] #[id number], Partial fill upon patient request if the [...]
--- OUTSIDE RECORDS SUMMARY | 2024-06-15 11:25 | XMS_ITS | Continuity of Care Document ---
Author Organization [facility] Address [address] [place] [address]- Care Team Providers Care Cigar Maker Name Role Phone Christiano FANG, Tito England Primary Care Physician [phone] [facility] [place] - 05[place]08/22 [facility] [address] [place], [place] [address] Allergies, Adverse Reactions, Alerts Substance Reaction [...] capsule, 5 Refills, Maintenance, 03/09/22 11:52:00 EDT, [facility] #[id number], 157.5, cm, 02/09/22 19:12:00EDT, Height, 77, kg, 01/13/22 9:51:00 EDT, Dry Weight Start Date: 03/09/22 Status: Ordered ferrous sulfate 325 mg oral enteric coated tablet 1, tablet, By Mouth, Daily, # 30 tablet, Refills 1, Maintenance, 05/06/22 11:08:00 EDT, Route to Pharmacy Electronically, [facility] #[id number], 157.5, cm, 05/01/22 9:45:00 EDT, Height, 83.4, [...] 60 tablet, 2 Refills,Maintenance, 05/06/22 11:08:00 EDT, [facility] #[id number], 157.5, cm, 05/01/22 9:45:00 EDT, Height, 83.4, [...] a day, # 60 tablet, 3 Refills, [facility] #[id number], 157.5, cm, 03/26/22 13:17:00 EDT, Height, 77, [...] surgery: 2006 & 2008 at [facility](Confirmed) Active Status post knee surgery, [facility] [...] Alex Putnam M.D. at [facility] 12Retrial prescribed 12/17/20. On 01/15, at [...] Personnel Name: Christiano FANG, Tito England Address: [address] [place] [address] Adult & Pediatric Medicine [address]
--- OUTSIDE RECORDS SUMMARY | 2024-06-15 11:25 | XMS_ITS | Continuity of Care Document ---
Author Organization [facility] Address [address] [place] [address]- Care Team Providers Care Wood Flour Miller Name Role Phone Christiano FANG, Tito England Primary Care Physician [phone] [place] [facility] [place](s): 09/23/21 - 10/23/21 [facility] [address] [place] [address]- [place] Allergies, Adverse Reactions, Alerts Substance Reaction [...] Refills, Maintenance, 10/02/21 15:44:00 EST, EC Capsule, [facility] #[id number], Partial fill upon patient request if the prescription... Start Date: 10/02/21 Status: Ordered duloxetine 60 mg oral enteric coated capsule 1 capsule = 60 mg, By Mouth, Daily, fill when patient next requests. To be taken with 30mg cap for total 90mg daily dose, # 30 capsule, 3 Refills, Maintenance, 10/02/21 15:45:00 EST, [facility] #[id number], 163, cm, 08/27/21 9:26:00 EST, Height,... Start Date: 10/02/21 Status: Ordered hydrOXYzine hydrochloride 25 mg oral tablet 1-1.5 tablet, By Mouth, 3 times a day, PRN for anxiety, dose increase, # 60 tablet, 1 Refills, Maintenance, 10/08/21 14:51:00 EST, Tablet, [facility] #[id number], Partial fill upon patient request if the [...] Gm, 1 Refills, Maintenance, 09/17/21 13:09:00 EST, [facility] #[id number], Partial fill upon patient request if the prescription is for a schedule II opioid drug., 163, cm, 08/27/21 9:26:00 EST, Height, 63... Start Date: 09/17/21 Status: Ordered NuLYTELY with Flavor Packs oral powder for reconstitution See Instructions, Drink 240mL every 15-20 minutes until first half is gone. Repeat 6 hours prior toprocedure., # 4,000 mL, 0 Refills, Maintenance, 09/17/21 13:09:00 EST, [facility] #[id number],Partial fill upon patient request if the prescript... [...] Gm, 0 Refills, Maintenance, 09/23/21 13:03:00 EST, [facility] #[id number], Partial fill upon patient request if the [...] 08/08/21 16:04:00 EST, Route to Pharmacy Electronically, [facility] #[id number], Partial fi... Start Date: 08/08/21 Stop Date: 11/06/21 Status: Ordered topiramate 100 mg oral tablet 3 tablet = 300 mg, By Mouth, Daily at bedtime, # 84 tablet, 1 Refills, Maintenance, 08/26/21 14:05:00 EST, [facility] #[id number], 163, cm, 08/06/21 14:34:00 EST, Height, 63, [...] Refills, Soft Stop, 08/19/21 12:22:00 EST, Tablet, [facility] #[id number], Partial fill upon patient request if the [...] e surgery: 2006 & 2008 at [facility](Confirmed) Active Status post knee surgery, [facility] [...] of adequate sleep(Confirmed) Active Heart murmur, systolic, piage ble when recumbent(Confirmed) Active Tinnitus(Confirmed) 05/07/17 Active [...] thumb by Alex Putnam M.D. at [facility] 12Retrial prescribed 12/17/20. On 01/15, [...]
--- OUTSIDE RECORDS SUMMARY | 2024-06-15 11:26 | XMS_ITS | Continuity of Care Document ---
Author Organization [facility] Address [address] [place] [address]- Care Team Providers Care Oracle Sql Developer Name Role Phone Tito Alvarado MD Primary Care Physician [phone] Encounter [facility] [place] Date(s): 09/18/21 - 10/18/21 [facility] [address] [place] [address]- Attending Physician: Margaret Vargas Admitting Physician: AdmtrMargaret [...] Refills, Maintenance, 10/02/21 15:44:00 EST, EC Capsule, [facility] #[id number], Partial fill upon patient request if the prescription... Start Date: 10/02/21 Status: Ordered duloxetine 60 mg oral enteric coated capsule 1 capsule = 60 mg, By Mouth, Daily, fill when patient next requests. To be taken with 30mg cap for total 90mg daily dose, # 30 capsule, 3 Refills, Maintenance, 10/02/21 15:45:00 EST, [facility] #[id number], 163, cm, 08/27/21 9:26:00 EST, Height,... Start Date: 10/02/21 Status: Ordered hydrOXYzine hydrochloride 25 mg oral tablet 1-1.5 tablet, By Mouth, 3 times a day, PRN for anxiety, dose increase, # 60 tablet, 1 Refills, Maintenance, 10/08/21 14:51:00 EST, Tablet, [facility] #[id number], Partial fill upon patient request if the [...] Gm, 1 Refills, Maintenance, 09/17/21 13:09:00 EST, [facility] #[id number], Partial fill upon patient request if the prescription is for a schedule II opioid drug., 163, cm, 08/27/21 9:26:00 EST, Height, 63... Start Date: 09/17/21 Status: Ordered NuLYTELY with Flavor Packs oral powder for reconstitution See Instructions, Drink 240mL every 15-20 minutes until first half is gone. Repeat 6 hours prior toprocedure., # 4,000 mL, 0 Refills, Maintenance, 09/17/21 13:09:00 EST, [facility] #[id number],Partial fill upon patient request if the prescript... [...] Gm, 0 Refills, Maintenance, 09/23/21 13:03:00 EST, [facility] #[id number], Partial fill upon patient request if the [...] 08/08/21 16:04:00 EST, Route to Pharmacy Electronically, [facility] #[id number], Partial fi... Start Date: 08/08/21 Stop Date: 11/06/21 Status: Ordered topiramate 100 mg oral tablet 3 tablet = 300 mg, By Mouth, Daily at bedtime, # 84 tablet, 1 Refills, Maintenance, 08/26/21 14:05:00 EST, [facility] #[id number], 163, cm, 08/06/21 14:34:00 EST, Height, 63, [...] Refills, Soft Stop, 08/19/21 12:22:00 EST, Tablet, [facility] #[id number], Partial fill upon patient request if the [...] [facility] Active Status post knee surgery, [facility] 05/02/01(Confirmed) 05/02/01 Active Lumbar facet joint [...] trigger thumb by Alex Putnam M.D. at [facility] 12Retrial prescribed 4/27/21. On 01/15, at [...]
--- OUTSIDE RECORDS SUMMARY | 2024-06-15 11:26 | XMS_ITS | Continuity of Care Document ---
Author Organization [facility] Address [address] [place] [address]- Care Team Providers Care Dental Detail Representative Name Role Phone Christiano FANG, Tito England Primary Care Physician [place] [facility] [place](s): 06/08/22 - 07/08/22 [facility] [address] [place], [place] [address] Allergies, Adverse Reactions, Alerts Substance Reaction Severity Status codeine nausea Active iodinated radiocontrast dyes N/V Active Immunizations Given and Recorded Vaccine Date Status Refusal Reason influenza virus vaccine, inactivated 1 06/02/22 Gi laurie influenza virus vaccine, inactivated 06/05/18 Mars rded influenza virus vaccine, inactivated 06/17/17 Mars rded [id number] 12y+ bivalent booster vax 03/27/22 Recorded SARS-CoV-2 (COVID-19) mRNA BNT-162b2 vac 08/21/21 Recorded SARS-CoV-2 (COVID-19) Ad26 vaccine 12/02/20 Given Influenza Virus Vaccine (oldterm) 07/13/20 Recorde d zoster vaccine, inactivated 11/20/18 Recorded zoster vaccine, inactivated 09/17/18 Recorded tetanus/diphtheria/pertussis, acel(Tdap) 06/05/18 Recorded 1Result Comment: [facility]:[id number] Medications AutoASV EPAPmin 8 EPAPmax 12 PSmin [...] Refills, Maintenance, 06/23/22 14:08:00 EDT, ER Tablet, [facility] #[id number], Partial fillupon patient request if the prescription [...] capsule, 5 Refills, Maintenance, 03/09/22 11:52:00 EDT, [facility] #[id number], 157.5, cm, 02/09/22 19:12:00EDT, Height, 77, kg, 01/13/22 9:51:00 EDT, Dry Weight Start Date: 03/09/22 Status: Ordered ferrous sulfate 325 mg oral enteric coated tablet 1, tablet, By Mouth, Daily, # 30 tablet, Refills 1, Maintenance, 05/06/22 11:08:00 EDT, Route to Pharmacy Electronically, [facility] #[id number], 157.5, cm, 05/01/22 9:45:00 EDT, Height, 83.4, [...] 60 tablet, 2 Refills,Maintenance, 05/06/22 11:08:00 EDT, [facility] #[id number], 157.5, cm, 05/01/22 9:45:00 EDT, Height, 83.4, kg, 05/01/22 9:11:00 EDT, Dry Weight Start Date: 05/06/22 Status: Ordered ipratropium nasal 21 mcg/inh spray See Instructions, PRN Nasal Congestion, 1 spray each nostril BID, # 1 each, 4 Refills, Maintenance,06/04/22 11:24:00 EDT, [facility] #[id number], Partial fill upon patient request if the [...] 90 tablet, 3 Refills, 06/23/22 14:01:00 EDT, [facility] #[id number], 157.5, cm, 06/23/22 13:25:00 EDT, Height, 81.3, [...] [address] [facility] Confirmed Active Status post knee surgery, [facility] 05/02/01 Confirmed 05/02/01 Active [...] Putnam M.D. at [facility] 7Retrial prescribed 12/17/20. On 01/15, [...] Name: Sandhya Tsai MD, Cj Reyna Position: [facility] Anesthesiology MD Member Role: Lifetime Consulting Physician Address: Address: [address] [place] [address] [place] [address]- Name: Tito Alvarado MD Position: [facility] Primary Care Physician Member Role: PCP Address: Address: [address] [place] [address] Adult [place] [address]- Care Team Related Persons Name: BRAYAN VELAZCO Address: [address] [place] [address] Name: NOEL LIZAMA Address: [address] [place] [address] Name: FADY NIELSON Address: [address] [place] [address]
--- OUTSIDE RECORDS SUMMARY | 2024-06-15 11:26 | XMS_ITS | Continuity of Care Document ---
Author Organization [facility] Address [address] [place] [address]- Care Team Providers Care Tunnel Elastic Operator Chainstitch Name Role Phone Christiano FANG, Tito England Primary Care Physician [phone] Encounter [facility] [place] Date(s): 04/23/22 - 05/23/22 [facility] [address] [place], [place] [address] Allergies, Adverse Reactions, Alerts Substance [...] capsule, 5 Refills, Maintenance, 03/09/22 11:52:00 EDT, [facility] #[id number], 157.5, cm, 02/09/22 19:12:00EDT, Height, 77, kg, 01/13/22 9:51:00 EDT, Dry Weight Start Date: 03/09/22 Status: Ordered ferrous sulfate 325 mg oral enteric coated tablet 1, tablet, By Mouth, Daily, # 30 tablet, Refills 1, Maintenance, 05/06/22 11:08:00 EDT, Route to Pharmacy Electronically, [facility] #[id number], 157.5, cm, 05/01/22 9:45:00 EDT, Height, 83.4, [...] 60 tablet, 2 Refills,Maintenance, 05/06/22 11:08:00 EDT, [facility] #[id number], 157.5, cm, 05/01/22 9:45:00 EDT, Height, 83.4, [...] a day, # 60 tablet, 3 Refills, [facility] #[id number], 157.5, cm, 03/26/22 13:17:00 EDT, Height, 77, [...] [address] [facility] Confirmed Active Status post knee surgery, [facility] 05/02/01 Confirmed 05/02/01 Active Lumbar facet [...] ( moderate disability ) on 05/26/17; updated [facility] Back Pain Disability Scale score: 18 on 05/26/17. 10Initial Oswestry Disability Index: 50% ( severe disability ) on 03/31/16; initial Neck Disability Index: 42% ( severe disability ) on 03/31/16; initial [facility] Back Pain Disability Scale score: 46 on 03/31/16. 11On 09/30/17 underwent Tenolysis, right thumb, for Right trigger thumb by Alex Putnam M.D. at [facility] 12Retrial prescribed 12/17/20. On 01/15, at [...] Name: Christiano FANG, Tito England Address: Address: [address] [place] [address] Adult & Pediatric Medicine [place], [place] [address]
--- OUTSIDE RECORDS SUMMARY | 2024-06-15 11:26 | XMS_ITS | Continuity of Care Document ---
Author Organization [facility] G[facility] Address [address] [place] [address]- Care Team Providers Care Tugboat Operator Name Role Phone Tito Alvarado MD Primary Care Physician [phone] [place] [facility] [place]17[place] - 10/17/21 [facility] [address] [place] [address]- Attending Physician: AdmMargaret jolley Admitting Physician: AdmtrMargaret [...] Refills, Maintenance, 10/02/21 15:44:00 EST, EC Capsule, [facility] #[id number], Partial fill upon patient request if the prescription... Start Date: 10/02/21 Status: Ordered duloxetine 60 mg oral enteric coated capsule 1 capsule = 60 mg, By Mouth, Daily, fill when patient next requests. To be taken with 30mg cap for total 90mg daily dose, # 30 capsule, 3 Refills, Maintenance, 10/02/21 15:45:00 EST, [facility] #[id number], 163, cm, 08/27/21 9:26:00 EST, Height,... Start Date: 10/02/21 Status: Ordered hydrOXYzine hydrochloride 25 mg oral tablet 1-1.5 tablet, By Mouth, 3 times a day, PRN for anxiety, dose increase, # 60 tablet, 1 Refills, Maintenance, 10/08/21 14:51:00 EST, Tablet, [facility] #[id number], Partial fill upon patient request if the [...] Gm, 1 Refills, Maintenance, 09/17/21 13:09:00 EST, [facility] #[id number], Partial fill upon patient request if the prescription is for a schedule II opioid drug., 163, cm, 08/27/21 9:26:00 EST, Height, 63... Start Date: 09/17/21 Status: Ordered NuLYTELY with Flavor Packs oral powder for reconstitution See Instructions, Drink 240mL every 15-20 minutes until first half is gone. Repeat 6 hours prior toprocedure., # 4,000 mL, 0 Refills, Maintenance, 09/17/21 13:09:00 EST, [facility] #[id number],Partial fill upon patient request if the prescript... [...] Gm, 0 Refills, Maintenance, 09/23/21 13:03:00 EST, [facility] #[id number], Partial fill upon patient request if the [...] 08/08/21 16:04:00 EST, Route to Pharmacy Electronically, [facility] #[id number], Partial fi... Start Date: 08/08/21 Stop Date: 11/06/21 Status: Ordered topiramate 100 mg oral tablet 3 tablet = 300 mg, By Mouth, Daily at bedtime, # 84 tablet, 1 Refills, Maintenance, 08/26/21 14:05:00 EST, [facility] #[id number], 163, cm, 08/06/21 14:34:00 EST, Height, 63, [...] Refills, Soft Stop, 08/19/21 12:22:00 EST, Tablet, [facility] #[id number], Partial fill upon patient request if the [...] [facility](Confirmed) Active Status post knee surgery, [place] [...] thumb by Alex Putnam M.D. at [facility] 12Retrial prescribed 12/17/20. On 01/15, at [...]
--- OUTSIDE RECORDS SUMMARY | 2024-06-15 11:26 | XMS_ITS | Continuity of Care Document ---
Author Organization [facility] Address [address] [place] [address]- Care Team Providers Care Environment Coordinator Name Role Phone Christiano FANG, Tito England Primary Care Physician En[place] [facility] [place] Date(s): 06/11/22 - 07/11/22 [facility] [address] [place], [place] [address] Allergies, Adverse Reactions, Alerts Substance Reaction Severity Status codeine nausea Active iodinated radiocontrast dyes N/V Active Immunizations Given and Recorded Vaccine Date Status Refusal Reason influenza virus vaccine, inactivated 1 06/02/22 Gi laurie influenza virus vaccine, inactivated 06/05/18 Mars rded influenza virus vaccine, inactivated 06/17/17 Mars rded [id number] 12y+ bivalent booster vax 03/27/22 Recorded SARS-CoV-2 (COVID-19) mRNA BNT-162b2 vac 08/21/21 Recorded SARS-CoV-2 (COVID-19) Ad26 vaccine 12/02/20 Given Influenza Virus Vaccine (oldterm) 07/13/20 Recorde d zoster vaccine, inactivated 11/20/18 Recorded zoster vaccine, inactivated 09/17/18 Recorded tetanus/diphtheria/pertussis, acel(Tdap) 06/05/18 Recorded 1Result Comment: [facility]:[id number] Medications AutoASV EPAPmin 8 EPAPmax 12 PSmin [...] Refills, Maintenance, 06/23/22 14:08:00 EDT, ER Tablet, [facility] #[id number], Partial fillupon patient request if the prescription [...] capsule, 5 Refills, Maintenance, 03/09/22 11:52:00 EDT, [facility] #[id number], 157.5, cm, 02/09/22 19:12:00EDT, Height, 77, kg, 01/13/22 9:51:00 EDT, Dry Weight Start Date: 03/09/22 Status: Ordered ferrous sulfate 325 mg oral enteric coated tablet 1, tablet, By Mouth, Daily, # 30 tablet, Refills 1, Maintenance, 05/06/22 11:08:00 EDT, Route to Pharmacy Electronically, [facility] #[id number], 157.5, cm, 05/01/22 9:45:00 EDT, Height, 83.4, [...] 60 tablet, 2 Refills,Maintenance, 05/06/22 11:08:00 EDT, [facility] #[id number], 157.5, cm, 05/01/22 9:45:00 EDT, Height, 83.4, kg, 05/01/22 9:11:00 EDT, Dry Weight Start Date: 05/06/22 Status: Ordered ipratropium nasal 21 mcg/inh spray See Instructions, PRN Nasal Congestion, 1 spray each nostril BID, # 1 each, 4 Refills, Maintenance,06/04/22 11:24:00 EDT, [facility] #[id number], Partial fill upon patient request if the [...] 90 tablet, 3 Refills, 06/23/22 14:01:00 EDT, [facility] #[id number], 157.5, cm, 06/23/22 13:25:00 EDT, Height, 81.3, [...] arthroscopic knee surgery: 2006 & 2008 at [facility] Confirmed Active Status post knee surgery, [facility] 05/02/01 Confirmed 05/02/01 Active Lumbar facet [...] Name: Sandhya Tsai MD, Cj Reyna Position: [facility] Anesthesiology MD Member Role: Lifetime Consulting Physician Address: Address: [address] [place] [address] [place] [address]- Name: Tito Alvarado MD Position: [facility] Primary Care Physician Member Role: PCP Address: Address: [address] [place] [address] Adult & [place] [address]- Care Team Related Persons Name: BRAYAN VELAZCO Address: home [address] [place] [address] Name: NOEL LIZAMA Address: home [address] [place] [address] Name: FADY NIELSON Address: home [address] [place] [address]
--- OUTSIDE RECORDS SUMMARY | 2024-06-15 11:26 | XMS_ITS | Continuity of Care Document ---
Author Organization [facility] Address [address] [place] [address]- Care Team Providers Care Oss Architect Name Role Phone Christiano FANG, Tito England Primary Care Physician Encounter [facility] [place] Date(s): 05/06/22 - 06/05/22 [facility] [address] [place], [place] [address] Allergies, Adverse Reactions, Alerts Substance Reaction Severity Status codeine nausea Active iodinated radiocontrast dyes N/V Active Immunizations Given and Recorded Vaccine Date Status Refusal Reason influenza virus vaccine, inactivated 1 06/02/22 Gi laurie influenza virus vaccine, inactivated 06/05/18 Mars rded influenza virus vaccine, inactivated 06/17/17 Mars rded [id number] 12y+ bivalent booster vax 03/27/22 Recorded SARS-CoV-2 (COVID-19) mRNA BNT-162b2 vac 08/21/21 Recorded SARS-CoV-2 (COVID-19) Ad26 vaccine 12/02/20 Given Influenza Virus Vaccine (oldterm) 07/13/20 Recorde d zoster vaccine, inactivated 11/20/18 Recorded zoster vaccine, inactivated 09/17/18 Recorded tetanus/diphtheria/pertussis, acel(Tdap) 06/05/18 Recorded 1Result Comment: [facility]:[id number] Medications Calcium 600 +D 1 tablet, By [...] capsule, 5 Refills, Maintenance, 03/09/22 11:52:00 EDT, [facility] #[id number], 157.5, cm, 02/09/22 19:12:00EDT, Height, 77, kg, 01/13/22 9:51:00 EDT, Dry Weight Start Date: 03/09/22 Status: Ordered ferrous sulfate 325 mg oral enteric coated tablet 1, tablet, By Mouth, Daily, # 30 tablet, Refills 1, Maintenance, 05/06/22 11:08:00 EDT, Route to Pharmacy Electronically, [facility] #[id number], 157.5, cm, 05/01/22 9:45:00 EDT, Height, 83.4, [...] 60 tablet, 2 Refills,Maintenance, 05/06/22 11:08:00 EDT, [facility] #[id number], 157.5, cm, 05/01/22 9:45:00 EDT, Height, 83.4, kg, 05/01/22 9:11:00 EDT, Dry Weight Start Date: 05/06/22 Status: Ordered ipratropium nasal 21 mcg/inh spray See Instructions, PRN Nasal Congestion, 1 spray each nostril BID, # 1 each, 4 Refills, Maintenance,06/04/22 11:24:00 EDT, [id number], Partial fill upon patient request if the [...] a day, # 60 tablet, 3 Refills, [facility] #[id number], 157.5, cm, 03/26/22 13:17:00 EDT, Height, 77, [...] arthroscopic knee surgery: 2006 & 2008 at [facility] Confirmed Active Status post knee surgery, [facility] 05/02/01 Confirmed 05/02/01 Active Lumbar [...] Name: Christiano FANG, Tito England Address: Address: [address] [place] [address] Adult & Pediatric Medicine [place], [place] [address]
--- OUTSIDE RECORDS SUMMARY | 2024-06-15 11:26 | XMS_ITS | Continuity of Care Document ---
Author Organization [facility] Address [address] [place] [address]- Care Team Providers Care Dress Cutter Name Role Phone Tito Alvarado MD Primary Care Physician [phone] [place] [facility] [place]/05/[place] - 08/03/21 [facility] [address] [place], [place] [address] Attending Physician: Tito Alvarado MD Allergies, [...] capsule, 3 Refills, Maintenance, 07/14/21 9:37:00 EST, [facility] #[id number], 163, cm, 07/02/21 14:28:00 EST, Height Start [...] tablet, 1 Refills, Maintenance, 07/03/21 10:52:00 EST, [facility] #[id number], 163, cm, 07/02/21 14:28:00 EST, Height Start [...] kne e surgery: 2006 & 2008 at [facility](Confirmed) Active Status post knee surgery, [place] [...] by Alex Putnam M.D. at [facility] 12Retrial prescribed 12/17/20. On 01/15, at [...]
--- OUTSIDE RECORDS SUMMARY | 2024-06-15 11:26 | XMS_ITS | Continuity of Care Document ---
Author Organization [facility] Gastroenter [facility]log[facility] Address [address] [place] [address]- Care Team Providers Care Club Car Attendant Name Role Phone Tito Alvarado MD Primary Care Physician Encounter [facility] [place] Date(s): 09/11/21 - 10/11/21 [facility] [address] [place] [address]- [place] Allergies, Adverse Reactions, Alerts Substance Reaction [...] Refills, Maintenance, 10/02/21 15:44:00 EST, EC Capsule, [facility] #[id number], Partial fill upon patient request if the prescription... Start Date: 10/02/21 Status: Ordered duloxetine 60 mg oral enteric coated capsule 1 capsule = 60 mg, By Mouth, Daily, fill when patient next requests. To be taken with 30mg cap for total 90mg daily dose, # 30 capsule, 3 Refills, Maintenance, 10/02/21 15:45:00 EST, [facility] #[id number], 163, cm, 08/27/21 9:26:00 EST, Height,... Start Date: 10/02/21 Status: Ordered hydrOXYzine hydrochloride 25 mg oral tablet 1-1.5 tablet, By Mouth, 3 times a day, PRN for anxiety, dose increase, # 60 tablet, 1 Refills, Maintenance, 10/08/21 14:51:00 EST, Tablet, [facility] #[id number], Partial fill upon patient request if the [...] Gm, 1 Refills, Maintenance, 09/17/21 13:09:00 EST, [facility] #[id number], Partial fill upon patient request if the prescription is for a schedule II opioid drug., 163, cm, 08/27/21 9:26:00 EST, Height, 63... Start Date: 09/17/21 Status: Ordered NuLYTELY with Flavor Packs oral powder for reconstitution See Instructions, Drink 240mL every 15-20 minutes until first half is gone. Repeat 6 hours prior toprocedure., # 4,000 mL, 0 Refills, Maintenance, 09/17/21 13:09:00 EST, [facility] #[id number],Partial fill upon patient request if the prescript... [...] Gm, 0 Refills, Maintenance, 09/23/21 13:03:00 EST, [facility] #[id number], Partial fill upon patient request if the [...] 08/08/21 16:04:00 EST, Route to Pharmacy Electronically, [facility] #[id number], Partial fi... Start Date: 08/08/21 Stop Date: 11/06/21 Status: Ordered topiramate 100 mg oral tablet 3 tablet = 300 mg, By Mouth, Daily at bedtime, # 84 tablet, 1 Refills, Maintenance, 08/26/21 14:05:00 EST, [facility] #[id number], 163, cm, 08/06/21 14:34:00 EST, Height, 63, [...] 08/19/21 12:22:00 EST, Tablet, [facility] #[id number], Partial fill upon patient request if the [...] kne e surgery: 2006 & 2008 at [facility](Confirmed) Active Status post knee surgery, [facility] [...] M.D. at [facility] 12Retrial prescribed 12/17/20. On [...]
--- OUTSIDE RECORDS SUMMARY | 2024-06-15 11:26 | XMS_ITS | Continuity of Care Document ---
Author Organization [facility] Address [address] [place] [address]- Care Team Providers Care Clinic Md Associate Name Role Phone Christiano FANG, Tito England Primary Care Physician [phone] [place] [facility] [place](s): 03/16/22 - 04/15/22 [facility] [address] [place], [place] [address] Allergies, Adverse [...] 12/12/21 11:12:00 EDT, Route to Pharmacy Electronically, [facility] #[id number], Partial fill upon patient request if the [...] capsule, 5 Refills, Maintenance, 03/09/22 11:52:00 EDT, [facility] #[id number], 157.5, cm, 02/09/22 19:12:00EDT, Height, 77, kg, 01/13/22 9:51:00 EDT, Dry Weight Start Date: 03/09/22 Status: Ordered ferrous sulfate 325 mg oral enteric coated tablet 1, tablet, By Mouth, Daily, # 30 tablet, Refills 0, Route to Pharmacy Electronically, [facility] #[id number], 157.5, cm, 03/26/22 13:17:00 EDT, Height, 77, [...] NEEDED FOR ANXIETY, # 60 tablet, 0 Refills,[facility] #[id number], 157.5, cm, 02/09/22 19:12:00 EDT, Height, 77, [...] a day, # 60 tablet, 3 Refills, [facility] #[id number], 157.5, cm, 03/26/22 13:17:00 EDT, Height, 77, [...] [facility] Active Status post [facility] surgery, [place] [...] Putnam M.D. at [facility] 12Retrial prescribed 12/17/20. On 01/15, at [...]
[2024-06-15 11:58] VITALS: BP 140/63; PULSE 66; O2SAT 96
== END 2024-06-15 12:06 | disposition home or self-care (01) ==
LOC: HO.PMCPRC 11:09
PROVIDERS: PCP Internal Medicine; Visit Provider Internal Medicine
DX: M54.81 Occipital neuralgia (principal)
CPT/HCPCS: 64555

== ENCOUNTER 2024-06-23 12:56 | Outpatient (AMB) | payer MEDICAID, SELFPAY ==
--- NOTE | 2024-06-23 12:59 | MHC.OFFVIS ---
Vital Signs 06/23/24 13:06 Height 5 ft 3 in Weight 201 lb BMI 35.6 BP 136/72 Blood Pressure Location Lt brachial Position Sitting Respiration 16 Pulse 65 Pulse Source Pulse Oximeter Pulse Oximetry (%) 98 Oxygen Delivery Method Room Air Intake Visit Reasons: s/p right occipital Sprint Intake Note: Patient comes in for post-op occipital Sprint. Reports pain 5/10. Allergies codeine Adverse Reaction (Intermediate, Verified 06/23/24 13:06) Vomiting HPI Comments Details: Patient presents today for wound check at Sprint PNS Right Occipital Nerve Stimulation Lead site that was placed on 06/15/[address] Cortes. Patient reports about 60-65 % ongoing pain relief since procedure with partial improvement in her daily functioning, mobility and sleep. Pain is rated at 4/10 today for neck and head pain. Patient denies any untoward effects with implant except concerns for partial lead pulled out during recent dressing changes at home but still able to obtain parasthesias on bilateral occipital regions, more on the right with stimulation at 57-58. The dressing was removed. The lead site was cleansed with ChloraPrep and applied new Tegaderm dressing. No erythema, swelling, redness, erythema, tenderness or pathological discharge was noted.?Dressing change was done in clinic today, patient's family was educated on dressing change today with direct demonstration and instructions. Denies any recent cough, cold, infection, fever, any significant changes in her medical history, medications or recent hospitalizations. Past procedures: 05/24/2024: Greater and Lesser Occipital Nerve Block, Right: % relief. 02/16/24: Peripheral Nerve Stimulator Implant for Middle Cluneal Nerves, Bilateral: 80% relief. 02/02/24: Percutaneous trial of cluneal nerve stimulation of bilateral: % relief. 10/22/23: Right diagnostic auricular temporal and posterior auricular nerve blocks, landmark guided: % relief. 09/23/2023: Sacroiliac Joint Injection, Bilateral: Two days of relief. 09/01/23: Diagnostic Sacroiliac Joint Injection, Bilateral: 100 % diagnostic relief. [facility] Medical History Hx of pilonidal cyst Degenerative disc disease, cervical Tinnitus of left ear Adenomyosis of uterus Bilateral breast cysts Sleep apnea Short-term memory loss Rheumatoid arthritis Osteoporosis SI (sacroiliac) joint dysfunction Hidradenitis suppurativa Occipital neuralgia Fibromyalgia HTN (hypertension) Lumbar disc disease Depression Overactive bladder Restless leg syndrome Peripheral neuropathy Surgical History History of gynecologic surgery History of surgery Hx of shoulder surgery H/O laminectomy History of carpal tunnel release of both wrists Hx of elbow surgery Hx of hysterectomy Hx of left knee surgery Hx of arthroscopy of left knee Hx of abdominal surgery H/O LEEP History of intestinal surgery Hx of appendectomy Social History Patient Tobacco Use Status: Former Tobacco user Review of Systems Const All systems reviewed & are unremarkable except as noted in HPI and below Physical Exam Vital Signs: Last Vital Signs Pulse 65 06/23/24 13:06 Resp 16 06/23/24 13:06 BP 136/72 06/23/24 13:06 Pulse Ox 98 06/23/24 13:06 Oxygen Delivery Method Room Air 06/23/24 13:06 BMI result Body Mass Index 35.6 General: Appears afebrile. Alert and oriented. Mood and affect appropriate. Follows and participates in conversation appropriately. Respiratory effort is unlabored. Able to transition from sit to stand unassisted. Ambulates with bilaterally normal heel strike and toe off. Multiple scars from prior occipital nerve release surgeries. Lead Insertion Site: Lead insertion site looks clean, dry, intact. No pathological discharge, no swelling and no erythema. Lead site dressing were changed today in the clinic. Achieved positive paresthesia at 58 on the right. Results Reviewed Results Reviewed: No imaging is available for review. Assessment & Plan Assessment & Plan (1) Occipital neuralgia: Code(s): M54.81 - Occipital neuralgia Category: Medical Plan Patient is 2 weeks status post temporary right occipital nerve stimulator placement presented today for wound site check and concern for partial lead pull with recent dressing changes. Patient reports frequent sweating thus necessitates for regular 2-3 times per week dressing changes. Sprint dressing was changed in the office today, her family was educated on dressing changes who is comfortable to continue dressing changes at home. Patient will continue to monitor her symptoms and notify our office if she loses sensation with current or increased stimulation. Currently her stimulation is set at 58 with positive paresthesias on the right side of the occipital region and slightly on the left. All questions and concerns have been answered and patient agreed with the treatment plan. Follow-up for Sprint removal and sooner as needed. Coding Level of Care Code Est Pt Level 3 (18823) Complex EM visit Add On G2211 Diagnoses Occipital neuralgia M54.81
[2024-06-23 13:06] VITALS: BP 136/72; PULSE 65; RESP 16; O2SAT 98; BMI 35.6
== END 2024-06-23 13:27 | disposition home or self-care (01) ==
LOC: HO.PMC 12:56
PROVIDERS: PCP Internal Medicine; Visit Provider Nurse Practitioner Family
DX: M54.81 Occipital neuralgia (principal)
CPT/HCPCS: 99024

== ENCOUNTER → 2024-06-23 12:56 | Outpatient (BNVA) | payer MEDICAID, SELFPAY | PROVIDERS: PCP Internal Medicine; Visit Provider Nurse Practitioner Family | DX: M54.81 Occipital neuralgia (principal) | CPT/HCPCS: 99212 ==

== ENCOUNTER → 2024-06-26 13:03 | Outpatient (BNVA) | payer MEDICAID, SELFPAY | PROVIDERS: PCP Internal Medicine; Visit Provider Anesthesiology ==

== ENCOUNTER 2024-06-30 10:59 | Outpatient (AMB) | payer MEDICAID, SELFPAY ==
--- NOTE | 2024-06-30 10:47 | A.OFFVIS_ITS ---
Intake Visit Reasons: surgical questions Allergies codeine Adverse Reaction (Intermediate, Verified 07/07/24 10:30) Vomiting HPI HPI surgical questions: Details: 58-year-old female who presents today via tele-visit for discussion of surgical questions. She reports worsening of the pain after the placement of the device. She is currently using device setting at 43%. She states that she has to reduce the dev ice setting due to ear pain associated to increased device setting. She is tearful while describing her pain today. She has unexplained swelling on the right side of the face. She also had an ultrasound, which was normal. She states that the leads came off when she was removing her night gown but she can still experience pulsating sensations from the leads. She denies any appropriate paresthesia sensation in her head. She has been taking Vicodin and hydrocodone with no relief. The pain has been affecting her quality of life. She had a dressing change yesterday with Mellissa but the dressing is coming off due to sweating today. She has been struggling with wound dressing. She has discussed about heavy sweating with her PCP, neurologist, and other provider. She states that the usual temperature of her living room is around 72 so she uses AC. She lives with her 93-year-old mother. Past procedures 06/15/2024: Occipital Nerve Stimulation Lead Placement, SPR (Sprint) System, Right: % relief. 05/24/2024: Greater and Lesser Occipital Nerve Block, Right: % relief. 02/16/24: Peripheral Nerve Stimulator Implant for Middle Cluneal Nerves, Bilate ral: 80% relief. 02/02/24: Percutaneous trial of cluneal nerve stimulation of bilateral: % relief. 10/22/23: Right diagnostic auricular temporal and posterior auricular nerve blocks, landmark guided: % relief. 09/23/2023: Sacroiliac Joint Injection, Bilateral: Two days of relief. 09/01/23: Diagnostic Sacroiliac Joint Injection, Bilateral: 100 % diagnostic relief. [facility] Medical History Hx of pilonidal cyst Degenerative disc disease, cervical Tinnitus of left ear Adenomyosis of uterus Bilateral breast cysts Sleep apnea Short-term memory loss Rheumatoid arthritis Osteoporosis SI (sacroiliac) joint dysfunction Hidradenitis suppurativa Occipital neuralgia Fibromyalgia HTN (hypertension) Lumbar disc disease Depression Overactive bladder Restless leg syndrome Peripheral neuropathy Surgical History History of gynecologic surgery History of surgery Hx of shoulder surgery H/O laminectomy History of carpal tunnel release of both wrists Hx of elbow surgery Hx of hysterectomy Hx of left knee surgery Hx of arthroscopy of left knee Hx of abdominal surgery H/O LEEP History of intestinal surgery Hx of appendectomy Social History Patient Tobacco Use Status: Former Tobacco user Review of Systems Const All systems reviewed & are unremarkable except as noted in HPI and below Telehealth Telehealth [facility] Location of provider rendering services: practice address Location of patient: address on file Patient Identification confirmed using: Name, : Yes Telehealth method: video Patient verbally consented to treatment: Yes Patient verbally consented to billing insurance company: Yes Patient informed of any privacy concerns related to visit: Yes Minutes spent on Phone/Video with Pt.: 18 Results Reviewed Results Reviewed: No imaging is available for review. Assessment & Plan Assessment & Plan (1) Occipital neuralgia: Code(s): M54.81 - Occipital neuralgia Category: Medical (2) Otalgia of right ear: Code(s): H92.01 - Otalgia, right ear Category: Medical Plan We will schedule her for a scar infiltration/hydrodissection with saline in the office. A follow-up appointment was made during today's visit. She will continue to use the pns device at low intensity for her ON related pain. Scribed for Dr. Cortes by Canelo Alexandra, medical data entry clerk, on 06/30/2024. I, Dr. Cortes, have personally reviewed and agree with the information entered by the scribe. Coding Level of Care Code Tele Est Pt Level 4 (64386) Diagnoses Occipital neuralgia M54.81 Otalgia of right ear H92.01
== END 2024-06-30 11:00 | disposition home or self-care (01) ==
LOC: HO.PMC 10:59
PROVIDERS: PCP Internal Medicine; Visit Provider Internal Medicine
DX: M54.81 Occipital neuralgia (principal); H92.01 Otalgia, right ear
CPT/HCPCS: 99214

== ENCOUNTER → 2024-06-30 10:59 | Outpatient (BNVA) | payer MEDICAID, SELFPAY | PROVIDERS: PCP Internal Medicine; Visit Provider Internal Medicine ==

== ENCOUNTER 2024-07-07 09:36 | Outpatient (AMB) | payer MEDICAID, SELFPAY ==
--- NOTE | 2024-07-07 10:18 | MHC.OFFVIS ---
Vital Signs 07/07/24 10:19 Height 5 ft 3 in Weight 201 lb BMI 35.6 BP 142/71 H Blood Pressure Location Lt brachial Position Sitting Respiration 16 Pulse 97 Pulse Source Pulse Oximeter Pulse Oximetry (%) 98 Oxygen Delivery Method Room Air Intake Visit Reasons: hydrodissection right ear scar Allergies codeine Adverse Reaction (Intermediate, Verified 07/07/24 10:30) Vomiting Medication List - Last Reconciled 07/07/24 by Natalie Frazier LPN alendronate 70 mg PO QWEEK aspirin 81 mg PO BID bupropion HCl SR 150 mg PO BID calcium carbonate 600 mg PO DAILY cholecalciferol (vitamin D3) 25 mcg PO DAILY cholestyramine (with sugar) 4 gram 1 - 2 ea PO TID diazepam 2 mg PO TID duloxetine 30 mg PO DAILY gabapentin 600 mg PO BID magnesium 500 mg PO DAILY metoprolol succinate ER 50 mg PO DAILY mirabegron ER (Myrbetriq) 50 mg PO DAILY omeprazole 20 mg PO BID oxycodone-acetaminophen 5-325 mg 1 tab PO Q8H PRN pramipexole 0.375 mg PO BEDTIME prednisone 15 mg PO DAILY prednisone 20 mg PO DAILY topiramate mg PO HPI HPI hydrodissection right ear scar: Details: 58-year-old female who presents today to the office for a hydrodissection of right ear scar. Denies any recent cough, cold, infection, fever or other significant changes in medical history since last office visit.? Past procedures 06/15/2024: Occipital Nerve Stimulation Lead Placement, SPR (Sprint) System, Right: % relief. 05/24/2024: Greater and Lesser Occipital Nerve Block, Right: % relief. 02/16/24: Peripheral Nerve Stimulator Implant for Middle Cluneal Nerves, Bilateral: 80% relief. 02/02/24: Percutaneous trial of cluneal nerve stimulation of bilateral: % relief. 10/22/23: Right diagnostic auricular temporal and posterior auricular nerve blocks, landmark guided: % relief. 09/23/2023: Sacroiliac Joint Injection, Bilateral: Two days of relief. 09/01/23: Diagnostic Sacroiliac Joint Injection, Bilateral: 100 % diagnostic relief. [facility] Medical History Hx of pilonidal cyst Degenerative disc disease, cervical Tinnitus of left ear Adenomyosis of uterus Bilateral breast cysts Sleep apnea Short-term memory loss Rheumatoid arthritis Osteoporosis SI (sacroiliac) joint dysfunction Hidradenitis suppurativa Occipital neuralgia Fibromyalgia HTN (hypertension) Lumbar disc disease Depression Overactive bladder Restless leg syndrome Peripheral neuropathy Surgical History History of gynecologic surgery History of surgery Hx of shoulder surgery H/O laminectomy History of carpal tunnel release of both wrists Hx of elbow surgery Hx of hysterectomy Hx of left knee surgery Hx of arthroscopy of left knee Hx of abdominal surgery H/O LEEP History of intestinal surgery Hx of appendectomy Social History Patient Tobacco Use Status: Former Tobacco user Review of Systems Const All systems reviewed & are unremarkable except as noted in HPI and below Physical Exam Vital Signs: Last Vital Signs Pulse 97 07/07/24 10:19 Resp 16 07/07/24 10:19 BP 142/71 H 07/07/24 10:19 Pulse Ox 98 07/07/24 10:19 Oxygen Delivery Method Room Air 07/07/24 10:19 BMI result Body Mass Index 35.6 General: Appears afebrile. Alert and oriented. Mood and affect appropriate. Follows and participates in conversation appropriately. Respiratory effort is unlabored. Able to transition from sit to stand unassisted. Ambulates with bilaterally normal heel strike and toe off. Office Procedures Nerve Block Details: Right auriculotemporal nerve block with hydrodissection, landmark guided After obtaining written consent, pre-procedure blood pressure and heart rate were stable and recorded in the nursing record. The patient was in the sitting position. The skin overlying the target auriculotemporal nerve was prepped with alcohol. A 25 gauge 1.5 in needle was used. The needle was placed on the auriculotemporal nerve on right side. Aspiration was negative for heme and synovial fluid. 8 mL of 0.25% ropivacaine was used to infiltrate the scar and hydrodissection of auriculo-temporal nerve. I also infiltrated the scars in her right occipital region with a dilute local anesthetic solution. The skin was cleansed and hemostasis was ensured. The patient tolerated the procedure well and no complications were encountered. Following the procedure the patient's vital signs were stable. The patient was discharged home in good condition with post-procedural instructions. Time Out: Immediately prior to the procedure, the following was verbally confirmed that there is a signed consent form and that the correct patient, planned procedure, site and side are consistent with documentation and that necessary equipment and/or blood products are available prior to the start of the case. Complications: none EBL: <1 cc [id number] Peripheral Nerve Block Procedure code (CPT) selection complete Results Reviewed Results Reviewed: No imaging is available for review. Assessment & Plan Assessment & Plan (1) Occipital neuralgia: Code(s): M54.81 - Occipital neuralgia Category: Medical (2) Otalgia of right ear: Code(s): H92.01 - Otalgia, right ear Category: Medical Plan Patient is status post right auriculotemporal nerve block with hydrodissection and infiltration of scars from prior nerve release surgeries, landmark guided. Patient tolerated procedure well and was discharged home in stable condition with discharge instructions.? All questions were answered. We will follow-up in two weeks via telephone or in clinic to assess response to therapy. A follow-up appointment was made during today's visit. Scribed for Dr. Cortes by Canelo Alexandra, medical aides teacher, on 07/07/2024. I, Dr. Cortes, have personally reviewed and agree with the information entered by the scribe. Coding Level of Care Code Procedure Only Diagnoses Occipital neuralgia M54.81 Otalgia of right ear H92.01 CPT Codes Nerve Block - Nerve Block 8: [id number] Peripheral Nerve Block ([id number])
[2024-07-07 10:19] VITALS: BP 142/71; PULSE 97; RESP 16; O2SAT 98; BMI 35.6
== END 2024-07-07 10:42 | disposition home or self-care (01) ==
PROVIDERS: PCP Internal Medicine; Visit Provider Internal Medicine
DX: M54.81 Occipital neuralgia (principal)
CPT/HCPCS: 64450

== ENCOUNTER → 2024-07-07 09:36 | Outpatient (BNVA) | payer MEDICAID, SELFPAY | PROVIDERS: PCP Internal Medicine; Visit Provider Internal Medicine | DX: M54.81 Occipital neuralgia (principal); H92.01 Otalgia, right ear | CPT/HCPCS: 64450; J2795 ==

== ENCOUNTER 2024-08-11 11:21 | Outpatient (AMB) | payer MEDICAID, SELFPAY ==
--- NOTE | 2024-08-11 11:20 | A.OFFVIS_ITS ---
Intake Visit Reasons: Follow Up Allergies codeine Adverse Reaction (Intermediate, Verified 07/18/24 10:52) Vomiting HPI HPI Follow Up: Details: 58-year-old female who presents today on tele-visit for a follow up. She reports her right ear pain at 7-8/10 in intensity, which has been worse recently. She took Vicodin this morning but had no resolution of pain. She is also using medical marijuana and Tylenol with no relief. She has difficulty sleeping more than 2 hours at night. Recent weather changes worsen the pain. She is doing physical therapy for her ankle. She only did 35 minutes of a session last Wednesday. She has not seen an ENT doctor for the past year. She used to see an ENT specialist when her pain was psychological in nature in 2012-. Her past surgery was done by a plastic surgery at [facility]. Past procedures 07/07/24: Right auriculotemporal nerve block with hydrodissection, landmark guided: % relief. 06/15/2024: Occipital Nerve Stimulation Lead Placement, SPR (Sprint) System, Right: % relief. 05/24/2024: Greater and Lesser Occipital Nerve Block, Right: % relief. 02/16/24: Peripheral Nerve Stimulator Implant for Middle Cluneal Nerves, Bilateral: 80% relief. 02/02/24: Percutaneous trial of cluneal nerve stimulation of bilateral: % relief. 10/22/23: Right diagnostic auricular temporal and posterior auricular nerve blocks, landmark guided: % relief. 09/23/2023: Sacroiliac Joint Injection, Bilateral: Two days of relief. 09/01/23: Diagnostic Sacroiliac Joint Injection, Bilateral: 100 % diagnostic relief. [facility] Medical History Hx of pilonidal cyst Degenerative disc disease, cervical Tinnitus of left ear Adenomyosis of uterus Bilateral breast cysts Sleep apnea Short-term memory loss Rheumatoid arthritis Osteoporosis SI (sacroiliac) joint dysfunction Hidradenitis suppurativa Occipital neuralgia Fibromyalgia HTN (hypertension) Lumbar disc disease Depression Overactive bladder Restless leg syndrome Peripheral neuropathy Surgical History History of gynecologic surgery History of surgery Hx of shoulder surgery H/O laminectomy History of carpal tunnel release of both wrists Hx of elbow surgery Hx of hysterectomy Hx of left knee surgery Hx of arthroscopy of left knee Hx of abdominal surgery H/O LEEP History of intestinal surgery Hx of appendectomy Social History Patient Tobacco Use Status: Former Tobacco user Review of Systems Const All systems reviewed & are unremarkable except as noted in HPI and below Telehealth Telehealth Telehealth Platform: D[employer]imity Location of provider rendering services: practice address Location of patient: address on file Patient Identification confirmed using: Name, : Yes Telehealth method: video Patient verbally consented to treatment: Yes Patient verbally consented to billing insurance company: Yes Patient informed of any privacy concerns related to visit: Yes Minutes spent on Phone/Video with Pt.: 10 Results Reviewed Results Reviewed: No imaging is available for review. Assessment & Plan Assessment & Plan (1) Otalgia of right ear: Code(s): H92.01 - Otalgia, right ear Category: Medical Plan She continues to have significant right otalgia that has not been responsive to any of our interventions. I recommended that she follow up with her original plastic surgeon, who did her nerve release surgeries, to see if there is anything else that they can do to help with relieving the pain in her right ear. Scribed for Dr. Cortes by Canelo Alexandra, medical billing associate, on 08/11/2024. I, Dr. Cortes, have personally reviewed and agree with the information entered by the scribe. Coding Level of Care Code Tele Est Pt Level 3 (50263) Diagnoses Otalgia of right ear H92.01
== END 2024-08-11 11:21 | disposition home or self-care (01) ==
LOC: HO.PMC 11:21
PROVIDERS: PCP Internal Medicine; Visit Provider Internal Medicine
DX: H92.01 Otalgia, right ear (principal)
CPT/HCPCS: 99213

== ENCOUNTER → 2024-08-11 11:21 | Outpatient (BNVA) | payer MEDICAID, SELFPAY | PROVIDERS: PCP Internal Medicine; Visit Provider Internal Medicine ==

== ENCOUNTER → 2024-08-14 10:38 | Outpatient (REF) | payer MEDICAID, SELFPAY ==
--- NOTE | 2024-08-14 10:41 | CA_ITS ---
Transthoracic Echocardiogram Patient (Last, First, Middle): Edu Suárez N Gender: Female Date of : 1965 Age: 58 Procedure Date: 08/14/2024 Procedure Type: Transthoracic Echocardiogram Location: OP Height: 160.02 cm Weight: 86.18 kg BSA: 1.89 m2 Heart Rate: bpm BP: 148 / 88 mmHg Soa Integration Developer: ALANA Referring MD: Johann Trujillo MD Symptoms: HEART MURMUR Study Quality: Adequate ECG Rhythm: Sinus Conclusions: - The left ventricular systolic function is normal. The calculated ejection fraction is 60% by biplane method. - There is moderate calcification of the aortic valve. There is mild aortic valve stenosis. There is mild to moderate aortic valve regurgitation. Probably bicuspid aortic valve. Findings Left Ventricle Normal left ventricular cavity size. There is normal left ventricular wall thickness. The left ventricular systolic function is normal. The calculated ejection fraction is 60% by biplane method. There is no evidence of regional wall motion abnormalities. Diastolic function is normal for age. Right Ventricle Normal right ventricular cavity size and systolic function. Atria The left atrium is mildly dilated. There is an interatrial septal aneurysm seen bowing to the right. There is no evidence of interatrial shunt by color Doppler. The right atrium is normal in size. Aortic Valve There is moderate calcification of the aortic valve. There is mild aortic valve stenosis. The peak aortic velocity is 3.08 m/s with a calculated peak gradient of 38 mmHg. The mean gradient is 22 mmHg. The aortic valve area is 1.83 cm2. There is mild to moderate aortic valve regurgitation. Mitral Valve The mitral valve appears normal. There is mild mitral annular calcification. There is no mitral valve regurgitation. There is no mitral valve stenosis. Pulmonic Valve The pulmonic valve is likely normal. Tricuspid Valve There is trace tricuspid valve regurgitation. There is no evidence of pulmonary hypertension. Great Vessels The asc aorta is normal in size. Venous The inferior vena cava is normal in size and collapses greater than 50% with inspiration. Pericardium/Pleural There is no evidence of pericardial effusion. Prior Study Comparison No significant change compared to prior study dated: 10/19/2023. Measurements 2D Linear Measurements IVSd: 1.03 0.6-0.9/0.6-1.0 cm LVIDd: 4.36 3.9-5.3/4.2-5.9 cm LVIDd Index: 2.31 2.4-3.2/2.2-3.1 cm/m2 LVIDs: 2.59 2.0-3.6 cm LVPWd: 1.02 0.7-1.1 cm LA Diam: 3.30 2.7-3.8/3.0-4.0 cm LAIDs Index: 1.75 1.5-2.3 cm/m2 LV Mass: 187.71 67-162/88-224 g LV Mass Index: 99.32 43-95/49-115 g/m2 LVOT Diam: 2.30 3.0+(-)1.3 cm 2D Systolic Function EF 4C: 59.00 >55% EF 2C: 61.80 >55% EF BiP: 60.30 >55% Mitral Valve MV Pk E: 0.60 MV PK A: 0.68 MV Decel Time: 202.00 E/A: 0.90 E'Lateral: 10.00 E'Medial: 6.31 E/E' Med: 9.60 E/E' Lat: 6.00 PHT: 59.00 MVA PHT: 3.73 Decel Lea: 2.99 Aortic Valve AoV Pk Jonathan: 3.08 AoV Mn Jonathan: 2.20 AoV VTI: 0.79 AoV Pk Grad: 38.00 Aov Mn Grad: 22.00 NADIYA Cont.VTI: 1.83 AI Pk Jonathan: 4.97 AI Lea: 2.76 LVOT LVOT Pk Jonathan: 1.39 LVOT Mn Jonathan: 0.95 LVOT VTI: 0.35 LVOT Pk Grad: 8.00 LVOT Mn Grad: 4.00 LVOT Diam: 2.30 LVOT Area: 4.15 Diastolic Function MV Pk E: 0.60 MV Pk A: 0.68 E/A: 0.90 E'Medial: 6.31 E/E' Med: 9.60 E' Laterial: 10.00 E/E' Lat: 6.00 Right Ventricle TAPSE (mm): 18.50 TVS' Jonathan: 12.30 Tricuspid Valve TR Pk Jonathan: 2.52 TR Pk Grad: 25.00 RA Press: 3.00 RVSP: 28.00 Great Vessels Aorta Sinus of Valsalva: 3.58 2.0-3.[address] [place]: 2.38 1.7-3.4 cm Ao Asc: 3.50 2.1-3.4 cm Updated in Other Vendor System with Status of Final Yony Jain MD electronically signed on 08/14/2024 1:45:35 PM with status of Final
== END ==
LOC: HO.CARD 10:38
PROVIDERS: PCP Internal Medicine; Visit Provider Internal Medicine
DX: R01.1 Cardiac murmur, unspecified (principal)
CPT/HCPCS: 93306

== ENCOUNTER → 2024-08-14 10:41 | Outpatient (BNV) | payer MEDICAID, SELFPAY | PROVIDERS: PCP Internal Medicine; Visit Provider Internal Medicine | DX: I35.2 Nonrheumatic aortic (valve) stenosis with insufficiency (principal); I35.8 Other nonrheumatic aortic valve disorders; I34.81 Nonrheumatic mitral (valve) annulus calcification; R01.1 Cardiac murmur, unspecified | CPT/HCPCS: 93306 ==

== ENCOUNTER 2024-08-21 14:17 | Outpatient (REF) | payer MEDICAID, SELFPAY ==
--- NOTE | ~2024-08-21 | US_ITS ---
EXAMINATION: US PELVIS LIMITED HISTORY: RLQ PAIN R/O ADHESIONS COMPARISON: There are no prior studies for comparison. TECHNIQUE: Sonographic examination of the right lower quadrant was performed. FINDINGS: No mass is seen in the anterior abdominal wall. No fluid is seen in the right lower quadrant. No soft tissue masses identified. The appendix is not identified. US/US pelvic limited IMPRESSION: No sonographic abnormality is seen in the right lower quadrant. If further imaging is desired, CT could be performed. Electronically signed by: Isra Gutierrez MD 08/29/2024 01:09 PM DC
== END 2024-08-21 14:18 | disposition home or self-care (01) ==
LOC: HO.US 14:17
PROVIDERS: PCP Internal Medicine; Visit Provider Internal Medicine
DX: R10.9 Unspecified abdominal pain (principal)
CPT/HCPCS: 76857

== ENCOUNTER → 2024-08-21 14:19 | Outpatient (BNV) | payer MEDICAID, SELFPAY | PROVIDERS: PCP Internal Medicine; Visit Provider Radiology Diagnostic Radiology | DX: R10.31 Right lower quadrant pain (principal) | CPT/HCPCS: 76857 ==

== ENCOUNTER 2024-09-21 15:03 | Outpatient (AMB) | payer MEDICAID, SELFPAY ==
--- NOTE | 2024-09-21 15:06 | A.OFFVIS_ITS ---
Vital Signs 3 09/21/24 15:22 Height 5 ft 3 in Weight 187 lb BMI 33.1 BP 138/65 Blood Pressure Location Lt brachial Position Sitting Pulse 76 Intake Visit Reasons: Recurrent Abd pain right side Intake Note: Patient is seen in office for evaluation and treatment of recurrent abdominal pain. Pt c/o: RLQ pain radiates to the middle of the abdomen below the belly button,constant pain at the incision site, had 4 prior surgeries of the abdomen, onset for 10 yrs, denies d/v/d/c, redness or swelling ref. Dr Trujillo Junior Business Analyst Required: No Accompanied by: Self / Same As Patient Allergies codeine Adverse Reaction (Intermediate, Verified 09/21/24 15:14) Vomiting HPI Comments Details: 58-year-old female patient presenting with complaints of lower abdominal pain. She reports the pain began almost 10 years ago and initially was intermittent fasting a few minutes to few hours every few months but now has become more severe and frequent. She describes the pain as sharp and nonradiating. The pain seems to be worse with movement or when experiencing bumps in her car. She has had numerous abdominal surgeries through a Pfannenstiel incision including hysterectomy, ovarian cyst excision at the age of 17 as well as intestinal obstruction of the age of 18. She previously underwent appendectomy as well. Workup with an ultrasound of the pelvis revealed no suspicious findings. A CT abdomen and pelvis performed at [facility] also revealed no findings which would indicate a cause for the abdominal pain. She denies nausea, vomiting, fever or chills. [facility], [facility] Medical History Hx of pilonidal cyst Degenerative disc disease, cervical Tinnitus of left ear Adenomyosis of uterus Bilateral breast cysts Sleep apnea Short-term memory loss Rheumatoid arthritis Osteoporosis SI (sacroiliac) joint dysfunction Hidradenitis suppurativa Occipital neuralgia Fibromyalgia HTN (hypertension) Lumbar disc disease Depression Overactive bladder Restless leg syndrome Peripheral neuropathy Surgical History History of gynecologic surgery History of surgery Hx of shoulder surgery H/O laminectomy History of carpal tunnel release of both wrists Hx of elbow surgery Hx of hysterectomy Hx of left knee surgery Hx of arthroscopy of left knee Hx of abdominal surgery H/O LEEP History of intestinal surgery Hx of appendectomy Social History Patient Tobacco Use Status: Former Tobacco user Review of Systems Const All systems reviewed & are unremarkable except as noted in HPI and below Physical Exam Vital Signs: Last Vital Signs Pulse 76 09/21/24 15:22 BP 138/65 09/21/24 15:22 BMI result Body Mass Index 33.1 Const General: cooperative and no acute distress Nutritional Appearance: well nourished Orientation/consciousness: patient oriented x3 HEENT Head: Yes normocephalic and Yes atraumatic Ears: hearing grossly normal bilaterally Resp Effort & Inspection: normal respiratory effort, no audible wheezes, no cough and no respiratory distress Cardio Jugular venous distension: no JVD GI Other: Tender to light touch in the lower quadrants but no evidence of peritoneal signs to indicate intra-abdominal infection. No palpable mass/hernia noted. Most marked tenderness is located in the midline with palpation of the Pfannenstiel incision. Inspection: Yes normal to inspection Palpation (GI): Soft to palpation and Tenderness to palpation present (GI) in the LLQ and in the RLQ Abdomen image: 2 1. Site of maximal tenderness Skin Other: Warm, dry, no rash Neuro General: patient oriented x3 Extrem General: Yes no clubbing, cyanosis or edema Assessment & Plan Assessment & Plan (1) Pelvic pain: Code(s): R10.2 - Pelvic and perineal pain Category: Medical Plan 58-year-old female patient with chronic abdominal pain which on examination appears to be musculoskeletal in origin. I am unable to palpate any hernia or subcutaneous mass and review of a CT scan performed at [facility] does not reveal any fascial defect. I suggested obtaining MRI of the pelvis to better evaluate the musculature of the abdominal wall. She expressed understanding and agrees with the plan. Further follow-up will be based on the MRI findings. Orders: Orders 2 MR pelvis w con Today R10.2 - Pelvic and perineal pain Coding Level of Care Code New Pt Level 4 (04421) Diagnoses Pelvic pain R10.2
[2024-09-21 15:22] VITALS: BP 138/65; PULSE 76; BMI 33.1
--- OUTSIDE RECORDS SUMMARY | 2024-09-21 18:55 | XMS_ITS | Clinical Summary ---
Author Organization [facility] Address [address] [place] [address] Phone Care Team Providers Care Technical Program Manager Name Role Phone Johann Trujillo MD Primary Care Provider [phone] Allergies Active Allergy Reactions Criticality Noted Date Comments Codeine Nausea Only 03/10/2021 Lidocaine-Prilocaine 09/05/2024 Medications No known medications Encounters Date Type Department Care Team Description 09/06/2024 2:09 AM EST - 09/06/2024 6:29 AM EST Emergency [facility] Emergency [address] [place] [address] Harris Fay MD Right lower quadrant abdominal pain (Primary Dx) Discharge Disposition: Home or Self Care from Last 3 Months Surgical History Surgery Date Site/Laterality Comments ABDOMINAL SURGERY EYE SURGERY Medical History Medical History Date Comments Cataracts, both eyes Fibromyalgia Heart murmur HTN (hypertension) Occipital neuralgia S I joint dysfunction DJD (degenerative joint disease) Osteoporosis Memory loss Depression Panic attacks Sleep apnea Restless leg Tinnitus Lumbar disc disease Cluneal neuropathy Adhd Social History Tobacco Use Types Packs/Day Years Used Date Smoking Tobacco: Former Cigarettes Smokeless Tobacco: Former Tobacco Cessation:Counseling Given: Not Answered Alcohol Use Standard Drinks/Week Comments Not Currently 0 (1 standard drink = 0.6 oz pur e alcohol) Sex and Gender Information Value Date Recorded Sex Assigned at Not on file Gender Identity Not on file Sexual Orientation Not on file Job Start Date Occupation Industry Not on file Not on file Not on file Obstetrics History Last Filed Vital Signs Vital Sign Reading Time Taken Comments Blood Pressure 133/59 09/06/2024 5:33 AM EST Pulse 91 09/06/2024 3:25 AM EST Temperature 36.8 ??C (98.2 ??F) 09/06/2024 5:33 AM ES T Respiratory Rate 18 09/06/2024 5:33 AM EST Oxygen Saturation 97% 09/06/2024 5:33 AM EST Inhaled Oxygen Concentration - - Weight 86.6 kg (191 lb) 09/05/2024 2:39 PM EST Height 160 cm (5' 3 ) 09/05/2024 2:39 PM EST Body Mass Index 33.83 09/05/2024 2:39 PM EST Plan of Treatment Health Maintenance Due Date Last Done Comments Hepatitis B Vaccines (1 of 3 - 19+ 3-dose series) 12/16/1986 Cervical Cancer Screening: Pap Smear 12/16/1988 Cholesterol Screening (Lipid Panel) 07/22/2022 Colorectal Cancer Screening: Colonoscopy 07/22/2022 Depression Screening 07/22/2022 HIV Screening 07/22/2022 Hepatitis C Screening 07/22/2022 Lung Cancer Screening (Low Dose CT) 07/22/2022 Social Influencers of Health Screening 07/22/2022 Breast Cancer Screening 01/24/2024 01/24/20 22, 01/21/2021, 04/29/2019, Additional history exists COVID-19 Vaccine ( season) 2024 09/23/2022, 03/27/2022, 08/21/2021, Additional history exists Hypertension/CHF/CAD Annual BMP Blood Test 09/05/2025 09/05/2024 DTaP,Tdap,and Td Vaccines (2 - Td or Tdap) 06/05/2028 06/05/2018 Osteoporosis Screening (Bone Density Screening) 10/29/2029 10/30/2019 Zoster Vaccines Completed 11/20/2018, 09/17/2018 Influenza Vaccine Completed 05/29/2024, , 07/13/2020, Additional history exists HIB Vaccines Aged Out No longer eligi ble based on patient's age to complete this topic HPV Vaccines Aged Out No longer eligi ble based on patient's age to complete this topic Hepatitis A Vaccines Aged Out No long er eligible based on patient's age to complete this topic IPV Vaccines Aged Out No longer eligi ble based on patient's age to complete this topic MMR Vaccines Aged Out No longer eligi ble based on patient's age to complete this topic Meningococcal ACWY Vaccine Aged Out N o longer eligible based on patient's age to complete this topic Pneumococcal Vaccine: Pediatrics (0 to 5 Years) and At-Risk Patients (6 to 64 Years) Aged Out No longer eligible based on patient's age to complete this topic RSV Immunization Patients Under 20 months Aged Out No longer eligible based on patient's age to complete this topic Varicella Vaccines Aged Out No longer eligible based on patient's age to complete this topic Procedures Procedure Name Priority Date/Time Associated Diagnosis Comments CT ABDOMEN PELVIS W CONTRAST STAT 09/06/2024 4:26 AM EST FARRELL URINE CULTURE TUBE STAT 09/05/2024 4:53 PM EST URINALYSIS WITH REFLEX MICROSCOPIC AND CULTURE STAT 09/05/2024 4:53 PM EST URINALYSIS WITH REFLEX MICROSCOPIC AND CULTURE STAT 09/05/2024 4:53 PM EST MANUAL DIFFERENTIAL - SYSMEX WAM STAT 09/05/2024 4:29 PM EST CBC WITH AUTO DIFFERENTIAL STAT 09/05/2024 4:29 PM EST LIPASE STAT 09/05/2024 4:29 PM EST COMPREHENSIVE METABOLIC PANEL STAT 09/05/2024 4:29 PM EST CBC AND DIFFERENTIAL STAT 09/05/2024 4:29 PM EST [facility] SCREENING DIGITAL Routine 01/23/2022 4:44 PM EDT Encounter for screening mammogram for malignant neoplasm of breast [facility] DEXA AXIAL SKELETON Routine 10/30/2019 8:08 AM EDT Encounter for screening for osteoporosis from Last 3 Months or Most Recently Relevant to Health Maintenance Results * CT Abdomen Pelvis w Contrast (09/06/2024 4:26 AM EST) Anatomical Region Laterality Modality Body Computed Tomogra phy 09/06/2024 5:19 AM EST Impressions 09/06/2024 5:19 AM EST 1. No evidence of a bowel obstruction or free air. No pericolonic inflammation. No evidence of diverticulitis. 2. No hydronephrosis or obstructing stone. 3. Left lingular atelectasis. 4. Additional findings are detailed above. This document has been electronically signed by: Reginald Almaguer M.D. on 09/06/2024 05:19:25 Narrative 09/06/2024 5:[address] ABDOMEN AND PELVIS WITH CONTRAST COMPARISON: None. FINDINGS: Images of the lung bases demonstrate left lingular atelectatic change. Fat containing right-sided Bochdalek hernia is noted on axial images 46- 62. Fatty liver is noted. A subcentimeter low-attenuation lesion in the left hepatic lobe is too small to characterize. Gallbladder is mildly distended. No visible stone. No pericholecystic inflammation. Small hiatal hernia is present. Stomach is significantly underdistended which precludes accurate assessment. Small duodenal diverticulum is present. No CT evidence of acute pancreatitis. Spleen and adrenal glands are unremarkable. Subcentimeter low-attenuation lesion in the left kidney is too small to characterize. Both kidneys are otherwise unremarkable. No hydronephrosis or obstructing stone. Urinary bladder is unremarkable. The uterus is absent. Atherosclerotic plaque is noted in the abdominal aorta. There is mild ectasia of the infrarenal abdominal aorta, without evidence of an aneurysm or dissection. There is no evidence of a small-bowel obstruction or free air. Moderate amount of stool is noted within portions of the colon. No pericolonic inflammation. There is no evidence of diverticulitis. There are no colonic diverticula. The appendix is not visualized. Some high attenuation material is noted within the lumen of the cecum which is nonspecific but might be related to previously ingested contrast or perhaps calcium containing medication. Subcentimeter nonenlarged lymph nodes are noted in the mesentery. No enlarged lymph nodes. No evidence of a bowel containing hernia. Metallic densities and wiring/leads are noted in the posterior subcutaneous tissues which might be related to a previous stimulator device. Bone windows demonstrate no acute abnormalities. Procedure Note Reginald Almaguer MD - 09/06/2024 CT ABDOMEN AND PELVIS WITH CONTRAST COMPARISON: None. FINDINGS: Images of the lung bases demonstrate left lingular atelectatic change. Fat containing right-sided Bochdalek hernia is noted on axial images 46- 62. Fatty liver is noted. A subcentimeter low-attenuation lesion in the left hepatic lobe is too small to characterize.Gallbladder is mildly distended. No visible stone. No pericholecystic inflammation. Small hiatal hernia is present. Stomach is significantly underdistended which precludes accurate assessment. Small duodenal diverticulum is present. No CT evidence of acute pancreatitis. Spleen and adrenal glands are unremarkable. Subcentimeter low-attenuation lesion in the leftkidney is too small to characterize. Both kidneys are otherwise unremarkable.No hydronephrosis or obstructing stone. Urinary bladder is unremarkable.The uterus is absent. Atherosclerotic plaque is noted in the abdominal aorta. There is mild ectasia of the infrarenal abdominal aorta, without evidence of ananeurysm or dissection. There is no evidence of a small-bowel obstruction or free air. Moderate amount of stool is noted within portions of the colon. No pericolonic inflammation. There is no evidence of diverticulitis. There are no colonic diverticula. The appendix is not visualized. Some high attenuation material is noted within the lumen of the cecum which is nonspecific but might be related to previously ingested contrast or perhaps calcium containing medication. Subcentimeter nonenlarged lymph nodes are noted in the mesentery. No enlarged lymph nodes. No evidenceof a bowel containing hernia. Metallic densities and wiring/leads are noted in the posterior subcutaneous tissues which might be related to aprevious stimulator device. Bone windows demonstrate no acute abnormalities. IMPRESSION: 1. No evidence of a bowel obstruction or free air. No pericolonic inflammation. No evidence of diverticulitis. 2. No hydronephrosis or obstructing stone. 3. Left lingular atelectasis. 4. Additional findings are detailed above. This document has been electronically signed by: Reginald Almaguer M.D. on 09/06/2024 05:19:[address] PROCEDURES * Urinalysis with reflex microscopic and culture (09/05/2024 4:53 PM EST) Specific [place] Urine 1.025 1.003 - 1.030 LAB URINALYSIS - AUTOMATED METHOD 09/05/2024 5:17 PM [facility] pH, Urine 7.5 5.0 - 8.0 pH LAB URINALYSIS - AUTOMATED METHOD 09/05/2024 5:17 PM [facility] Leukocytes, Urine Negative Negative LAB URINALYSIS - AUTOMATED METHOD 09/05/2024 5:17 PM [facility] Nitrite, Urine Negative Negative LAB URINALYSIS - AUTOMATED METHOD 09/05/2024 5:17 PM [facility] Protein, Urine Trace <=Trace mg/dL LAB URINALYSIS - AUTOMATED METHOD 09/05/2024 5:17 PM [facility] Glucose, Urine Negative Negative mg/dL LAB URINALYSIS - AUTOMATED METHOD 09/05/2024 5:17 PM [facility] Ketones, Urine Negative Negative mg/dL LAB URINALYSIS - AUTOMATED METHOD 09/05/2024 5:17 PM [facility] Urobilinogen, Urine 1.0 0.2 - 1.0 mg/dL LAB URINALYSIS - AUTOMATED METHOD 09/05/2024 5:17 PM [facility] Bilirubin, Urine Negative Negative LAB URINALYSIS - AUTOMATED METHOD 09/05/2024 5:17 PM [facility] Blood, Urine Negative Negative LAB URINALYSIS - AUTOMATED METHOD 09/05/2024 5:17 PM [facility] Urine Urine specimen obtained by clean catch procedure / Unknown Non-blood Collection / Unknown 09/05/2024 4:53 PM EST 09/05/2024 5:12 PM EST Harris Fay MD LAB URINE ORDERABLES [facility] [address] [place] [address], * Farrell urine culture tube (09/05/2024 4:53 PM EST) [facility] Extra Tube Hold for add-ons. 09/05/2024 7:01 PM EST [facility] Comment:Auto resulted. Urine Urine specimen obtained by clean catch procedure / Unknown Non-blood Collection / Unknown 09/05/2024 4:53 PM EST 09/05/2024 5:12 PM EST Harris Fay MD LAB URINE ORDERABLES [facility] [address] [place] [address], * (ABNORMAL) Manual differential (09/05/2024 4:29 PM EST) [facility] Neutrophils % 52.0 % LAB HEMETOLOGY METHOD 09/05/2024 5:26 PM [facility] Lymphocytes % 32.0 % LAB HEMETOLOGY METHOD 09/05/2024 5:26 PM [facility] Reactive Lymphocyte 5.00 % LAB HEMETOLOGY METHOD 09/05/2024 5:26 PM [facility] Monocytes % 8.0 % LAB HEMETOLOGY METHOD 09/05/2024 5:26 PM [facility] Eosinophils % 2.0 % LAB HEMETOLOGY METHOD 09/05/2024 5:26 PM [facility] Basophils % 0.0 % LAB HEMETOLOGY METHOD 09/05/2024 5:26 PM [facility] Neutrophils Absolute Manual 6.24 1.50 - 7.00 K/mcL LAB HEMETOLOGY METHOD 09/05/2024 5:26 PM [facility] Lymphocytes Absolute 3.84 1.00 - 5.00 K/mcL LAB HEMETOLOGY METHOD 09/05/2024 5:26 PM [facility] Reactive Lymph Abs Manual 0.60(H) 0.00 - 0.00 lym LAB HEMETOLOGY METHOD 09/05/2024 5:26 PM EST [facility] Monocytes Absolute Manual 0.96 0.20 - 1.00 K/mcL LAB HEMETOLOGY METHOD 09/05/2024 5:26 PM EST [facility] Eosinophils Absolute Manual 0.24 0.00 - 0.50 K/mcL LAB HEMETOLOGY METHOD 09/05/2024 5:26 PM EST [facility] Basophils Absolute Manual 0.00 0.00 - 0.20 K/mcL LAB HEMETOLOGY METHOD 09/05/2024 5:26 PM EST [facility] Rbc Morphology Consistent with indices Consistent with indices, Normal for LAB HEMETOLOGY METHOD 09/05/2024 5:26 PM [facility] Platelet Morphology - WAM See Note(A) Normal LAB HEMETOLOGY METHOD 09/05/2024 5:26 PM EST [facility] Comment:PLT: Normal Blood Venous blood specimen / Unknown Venipuncture / Unknown 09/05/2024 4:29 PM EST 09/05/2024 4:51 PM EST Harris Fay MD LAB BLOOD ORDERABLES [facility] [address] [place] [address], * (ABNORMAL) CBC auto differential (09/05/2024 4:29 PM EST) WBC 12.0(H) 4.8 - 10.8 K/mcL LAB HEMETOLOGY METHOD 09/05/2024 5:26 PM EST [facility] RBC 4.10 3.80 - 4.80 M/mcL LAB HEMETOLOGY METHOD 09/05/2024 5:26 PM EST [facility] Hemoglobin 12.4 11.5 - 16.0 g/dL LAB HEMETOLOGY METHOD 09/05/2024 5:26 PM EST [facility] Hematocrit 39.7 35.0 - 47.0 % LAB HEMETOLOGY METHOD 09/05/2024 5:26 PM EST [facility] MCV 97.8 79.0 - 98.0 FL LAB HEMETOLOGY METHOD 09/05/2024 5:26 PM EST [facility] MCH 30.5 27.0 - 32.0 pcg LAB HEMETOLOGY METHOD 09/05/2024 5:26 PM EST [facility] MCHC 31.2(L) 32.0 - 37.0 g/dL LAB HEMETOLOGY METHOD 09/05/2024 5:26 PM EST [facility] RDW 13.5 11.0 - 15.0 % LAB HEMETOLOGY METHOD 09/05/2024 5:26 PM [facility] Platelets 374 130 - 400 K/mcL LAB HEMETOLOGY METHOD 09/05/2024 5:26 PM EST [facility] MPV 9.2 7.0 - 11.0 FL LAB HEMETOLOGY METHOD 09/05/2024 5:26 PM EST [facility] NRBC 0.0 <1.0 % LAB HEMETOLOGY METHOD 09/05/2024 5:26 PM EST [facility] NRBC Absolute 0.00 <0.10 K/mcL LAB HEMETOLOGY METHOD 09/05/2024 5:26 PM EST [facility] Blood Venous blood specimen / Unknown Venipuncture / Unknown 09/05/2024 4:29 PM EST 09/05/2024 4:51 PM EST Harris Fay MD LAB BLOOD ORDERABLES [facility] [address] [place] [address], * Lipase (09/05/2024 4:29 PM EST) Lipase 31 13 - 75 unit/L LAB CHEMISTRY METHOD 09/05/2024 5:21 PM [facility] Blood Venous blood specimen / Unknown Venipuncture / Unknown 09/05/2024 4:29 PM EST 09/05/2024 4:51 PM EST Harris Fay MD LAB BLOOD ORDERABLES [facility] [address] [place] [address], * Comprehensive metabolic panel (09/05/2024 4:29 PM EST) [facility] Sodium 140 133 - 145 mmol/L LAB CHEMISTRY METHOD 09/05/2024 5:21 PM [facility] Potassium 4.5 3.5 - 5.5 mmol/L LAB CHEMISTRY METHOD 09/05/2024 5:21 PM [facility] Chloride 110 96 - 110 mmol/L LAB CHEMISTRY METHOD 09/05/2024 5:21 PM [facility] CO2 26 21 - 32 mmol/L LAB CHEMISTRY METHOD 09/05/2024 5:21 PM [facility] Anion Gap 4 3 - 11 LAB CHEMISTRY METHOD 09/05/2024 5:21 PM [facility] Glucose 95 70 - 100 mg/dL LAB CHEMISTRY METHOD 09/05/2024 5:21 PM [facility] BUN 16 5 - 25 mg/dL LAB CHEMISTRY METHOD 09/05/2024 5:21 PM [facility] Creatinine 0.98 0.50 - 1.10 mg/dL LAB CHEMISTRY METHOD 09/05/2024 5:21 PM [facility] eGFR 68 >=60 mL/min/1. 73m2 LAB CHEMISTRY METHOD 09/05/2024 5:21 PM [facility] Comment:Calculation based on the??Chronic Kidney Disease Epidemiology Collaboration (CKD-EPI) equation refit??without adjustment for race. BUN/Creatinine Ratio 16.3 LAB CHEMISTRY METHOD 09/05/2024 5:21 PM [facility] Calcium 9.0 8.5 - 10.5 mg/dL LAB CHEMISTRY METHOD 09/05/2024 5:21 PM [facility] AST (SGOT) 22 10 - 42 unit/L LAB CHEMISTRY METHOD 09/05/2024 5:21 PM [facility] ALT (SGPT) 27 10 - 60 unit/L LAB CHEMISTRY METHOD 09/05/2024 5:21 PM [facility] Alkaline Phosphatase 50 42 - 121 unit/L LAB CHEMISTRY METHOD 09/05/2024 5:21 PM [facility] Total Protein 6.8 6.0 - 8.0 g/dL LAB CHEMISTRY METHOD 09/05/2024 5:21 PM [facility] Albumin 3.8 3.2 - 5.0 g/dL LAB CHEMISTRY METHOD 09/05/2024 5:21 PM [facility] Total Bilirubin 0.3 0.0 - 1.4 mg/dL LAB CHEMISTRY METHOD 09/05/2024 5:21 PM [facility] Blood Venous blood specimen / Unknown Venipuncture / Unknown 09/05/2024 4:29 PM EST 09/05/2024 4:51 PM EST Scot Muriel Fay MD LAB BLOOD ORDERABLES [facility] [address] [place] [address], * TERELL SCREENING DIGITAL (01/23/2022 4:44 PM EDT) Anatomical Region Laterality Modality Mammography 01/23/2022 11:1 5 AM EDT Narrative 01/23/2022 4:44 PM EDT Diagnostic Imaging Department [address] [place] [address] Patient: ??EDU SUÁREZ ?/Age/Sex: 1965 - 56 - F Unit#: ??[id number] ? Location/Status: ??SPDIMAM/REG CLI ? Mnemonic/Ordering Site: ??DIGSC/SPMAM Ordering Physician: ??KATHERIN ALVARADO MD Terell Screening Digital - 01/23/22 - 1154 History: Bilateral breast cancer screening. Technique: ??Digital mammography. Conventional CC and MLO projections with tomosynthesis MLO views and computer aided detection. Comparison: [facility] 01/27/2021 dating back to 02/10/2016. Findings: ?? Breast tissue consists of fatty and fibroglandular elements (category b density) bilaterally (as calculated by langtaojinpara software). There is no suspicious group of microcalcifications, mass, architectural distortion or suspicious change in breast tissue density. Impression: No evidence of malignancy. BIRADS category 1; negative study, 3341F [id number], 26650 Note: Patient information entered into a reminder system with a target due date for the next mammogram: ??CPT II 7025F Dictating Physician: ??CANDELARIO LOUISE MD Electronically Signed by: ??CANDELARIO LOUISE MD Dic Date/Time: ??01/23/22 1640 Sign date/Time: ??01/23/22 1644 Procedure Note Candelario Louise MD - 08/12/2022 Diagnostic Imaging Department [address] [place] [id number] Patient: EDU SUÁREZ Ellen /Age/Sex: 1965 - 56 - F Unit#: [id number] Location/Status: [facility] CLI Mnemonic/Ordering Site: [facility] Ordering Physician: KATHERIN ALVARADO MD Terell Screening Digital - 01/23/22 - 1154 History: Bilateral breast cancer screening. Technique: Digital mammography. Conventional CC and MLO projectionswith tomosynthesis MLO views and computer aided detection. Comparison: [facility] 01/27/2021 dating back to 02/10/2016. Findings: Breast tissue consists of fatty and fibroglandular elements (category b density) bilaterally (as calculated by [employer]). There is no suspicious group of microcalcifications, mass, architectural distortion or suspicious change in breast tissue density. Impression: No evidence of malignancy. BIRADS category 1; negative study, 3341F [id number], 01024 Note: Patient information entered into a reminder system with a target duedate for the next mammogram: CPT II 7025F Dictating Physician: CANDELARIO LOUISE MD Electronically Signed by: CANDELARIO LOUISE MD Dic Date/Time: 01/23/22 1640 Sign date/Time: 01/23/22 3084 Katheirn Alvarado MD IMG BI PROCEDURES * TERELL DEXA AXIAL SKELETON (10/30/2019 8:08 AM EDT) Anatomical Region Laterality Modality Mammography 10/30/2019 7:36 AM EDT Narrative 10/30/2019 8:08 AM EDT Diagnostic Imaging Department [address] [place] [address] Patient: ??EDU SUÁREZ ?/Age/Sex: 1965 - 53 - F Unit#: ??[id number] ? Location/Status: ??SPDIMAM/REG CLI ? Mnemonic/Ordering Site: ??MAMDEXAAX/SPMAM Ordering Physician: ??GERARDO CHO MD Terell Dexa Axial Skeleton - 10/30/19 6698 HISTORY: ??The patient is a 53-year-old postmenopausal female with clinical concern for metabolic bone disease. FINDINGS: ??Dual energy x-ray absorptiometry of the lumbar spine and femurs is performed. The mean bone mineral density at L1-L4 is 0.845 gm/cm2 which is 72% of that of young normals and 77% of that of age matched controls. This yields a T-score of -2.7 and a Z-score of -2.1 which is diagnostic of osteoporosis. The mean bone mineral density of the femurs bilaterally is 0.796 gm/cm2 which is 79% of that of young normals and 85% of that of age matched controls. ??This yields a T-score of -1.7 and a Z-score of -1.1 which is diagnostic of osteopenia. However, the T-score of the left femoral neck is -2.5 which is diagnostic of osteoporosis. IMPRESSION: 1. Osteoporosis. ??There has been a decrease of 10.4% in bone mineral density in the lumbar spine since the prior examination of 09/10/2017. ??There has been a decrease of 8.8% in bone mineral density in the right femur and a decrease of 6.2% in bone mineral density in the left femur. 2. FRAX analysis yields a 10-year probability of major osteoporotic fracture of 7.1% and a 10-year probability of hip fracture of 1.2%. Code 51042 Dictating Physician: ??GABRIELLA JIMÉNEZ MD Electronically Signed by: ??GABRIELLA JIMÉNEZ MD Dic Date/Time: ??10/30/19805 Sign date/Time: ??10/30/19 0808 Procedure Note Gabriella Jiménez - 08/11/2022 Diagnostic Imaging Department [address] [place] [address] Patient: EDU SUÁREZ Ellen /Age/Sex: 1965 - 53 - F Unit#: [id number] Location/Status: [facility] CLI [facility] Ordering Physician: GERARDO CHO MD Terell Dexa Axial Skeleton - 10/30/19 - 0759 HISTORY: The patient is a 53-year-old postmenopausal female withclinical concern for metabolic bone disease. FINDINGS: Dual energy x-ray absorptiometry of the lumbar spine and femursis performed. The mean bone mineral density at L1-L4 is 0.845 gm/cm2 which is72% of that of young normals and 77% of that of age matched controls. Thisyields a T-score of -2.7 and a Z-score of -2.1 which is diagnostic ofosteoporosis. The mean bone mineral density of the femurs bilaterally is 0.796 gm/lz4kgcll is 79% of that of young normals and 85% of that of age matched controls.This yields a T-score of -1.7 and a Z-score of -1.1 which is diagnostic of osteopenia. However, the T-score of the left femoral neck is -2.5 whichis diagnostic of osteoporosis. IMPRESSION: 1. Osteoporosis. There has been a decrease of 10.4% in bone mineraldensity in the lumbar spine since the prior examination of 09/10/2017. There has mimi decrease of 8.8% in bone mineral density in the right femur and a decreaseof 6.2% in bone mineral density in the left femur. 2. FRAX analysis yields a 10-year probability of major osteoporoticfracture of 7.1% and a 10-year probability of hip fracture of 1.2%. Code 28404 Dictating Physician: GABRIELLA JIMÉNEZ MD Electronically Signed by: GABRIELLA JIMÉNEZ MD Dic Date/Time: 10/30/19 0806 Sign date/Time: 10/30/19 0808 Gerardo Cho MD IMG BI PROCEDURES from Last 3 Months or Most Recently Relevant to Health Maintenance Care Teams Technical Program Manager Relationship Specialty Start Date End Date Johann Trujillo MD 96 Solis Sherman MA PCP - General Internal Medicine 09/06/24
--- OUTSIDE RECORDS SUMMARY | 2024-09-21 18:56 | XMS_ITS | Encounter Summary ---
Author Organization [facility] Address [address] [place] [address] Care Team Providers Care Certified Histologic Technician Name Role Phone Johann Trujillo MD Primary Care Provider [phone] Reason for Visit * Reason Comments Abdominal Pain Encounter Details Date Type Department Care Team ([facility] st Contact Info) Description 09/06/2024 2:09 AM EST - 09/06/2024 6:29 AM EST Emergency [facility] Emergency [address] [place] [id number] Harris Fay MD [address] [place] [address] Right lower quadrant abdominal pain (Primary Dx) Discharge Disposition: Home or Self Care Social History Tobacco Use Types Packs/Day Years [...] file Not on file Not on file documented as of this encounter Last Filed Vital Signs Vital Sign Reading [...] Mass Index 33.83 09/05/2024 2:39 PM EST documented in this encounter Discharge Instructions * Discharge Instructions* Harris Fay MD - 09/06/2024 5:59 AM EST All your testing today was reassuring. Your blood work shows no significant abnormality. Your CT scan shows no significant abnormality. Unfortunately a specific cause for your pain was not identified. Take your pain medication as prescribed. According to the prescription drug monitoring program you have a 30-day prescription for Vicodin that was filled on 08/28/2024. Alternate Tylenol and ibuprofen as needed for pain relief -Take 600 mg of ibuprofen every 6 hours (do not exceed 2400 mg in 24 hrs) -Take 650 mg of Tylenol every 6 hours (do not exceed 4000 mg in 24 hrs) -Stack these on top of each other as discussed (ie: Ibuprofen at 9 AM, Tylenol at noon, ibuprofen at 3 PM, Tylenol at 6 PM, etc) Follow up with your primary provider. Call tomorrow for an appointment. Return to Emergency Department if your symptoms worsen, don't improve, or any other concerns. Get well soon! Thank you for coming to the [facility] Emergency Department today. Our entire team works together to provide you with the best care possible. Examination and treatment you received in the emergency department has been rendered on an EMERGENCY basis only. It is not intended to be a substitute for or an effort to provide complete medical care. You should follow-up with your primary care provider. Please report to your physician any new or remaining problems, because it is impossible to recognize and treat all elements of injury or illness in a single emergency department visit. In the event that you're unable to obtain a followup appointment in a timely fashion, OR you are not getting any better, OR you are getting worse, OR you develop any symptoms of concern, please return here immediately for further evaluation. The emergency department is open 24 hours a day, 7 days aweek. Your discharge report is based on information that was available when you were in the emergency department. * Attachments The following attachments cannot be sent through Care Everywhere. * Abdominal Pain (Frisian) documented in this encounter Discharge Disposition Disposition Code Departure Means Destination Comment s Home or Self Usp documented in this encounter Progress Notes * Wally Saavedra RN - 09/05/2024 11:42 PM EST Pt ambulatory with cane up to [facility] asking about ER wait time * Neno Mojica RN - 09/05/2024 2:32 PM EST Pt presents from home, reported abdominal pain, onset x 10 years ago- increased pain in last week. Denies nausea,vomiting. No change in bowel pattern. No change in PO intake. Recent belly button infection per pt- seen by PCP, completed antibiotics. Alert and oriented x 3 * Harris Fay MD - 09/05/2024 2:30 PM EST Emergency Medicine Note Patient Name: Edu Suárez Initial Evaluation: 09/05/2024 : 1965 Patient's PCP: Johann Trujillo MD Emergency Physician: Harris Fay MD History of Present Illness Chief Complaint: Chief Complaint Patient presents with Abdominal Pain HPI: 58-year-old female, history of chronic abdominal pain, presents with exacerbation of same. Patient states that she has had frequent abdominal surgeries, she has had lysis of adhesions several times, and she presents with right lower quadrant abdominal pain. She states her pain has been getting progressively worse since June 2024, has been constant since late July, and getting progressively worse. Pain is localized to the lower portions of her abdomen, right greater than left. She states when she lays down her pain improves when she gets up and feels like there is something pulling or tearing in her right lower abdomen. She called her primary care physician recommended she come to the ED for evaluation. She is not having any fever, she has no nausea or vomiting, she is not having any diarrhea. ROS: I have performed a ROS with the pertinent positives and negatives documented in the history ofpresent illness. Previous History Past Medical History: Diagnosis Date ADHD Cataracts, both eyes Cluneal neuropathy Depression DJD (degenerative joint disease) Fibromyalgia Heart murmur HTN (hypertension) Lumbar disc disease Memory loss Occipital neuralgia Osteoporosis Panic attacks Restless leg S I joint dysfunction Sleep apnea Tinnitus Past Surgical History: Procedure Laterality Date ABDOMINAL SURGERY EYE SURGERY Social History Tobacco Use Smoking status: Former Types: Cigarettes Smokeless tobacco: Former Substance Use Topics Alcohol use: Not Currently Drug use: Yes Types: Marijuana/Cannabis No family history on file. is allergic to codeine and emla/tegaderm [lidocaine-prilocaine]. No current facility-administered medications on file prior to encounter. No current outpatient medications on file prior to encounter. Physical Exam ED Triage Vitals [09/05/24 1439] Temp Heart Rate Resp BP 37.1 ??C (98.8 ??F) 65 16 139/64 SpO2 Temp Source Heart Rate Source Patient Position 98 % Oral Monitor Sitting BP Location FiO2 (%) Right arm -- General: Well-appearing, well nourished, in no acute distress HEENT: PERRL, EOMI, external ears and nose appear unremarkable, airway is patent Neck: Supple, full range of motion Chest: Clear to auscultation; no evidence of respiratory distress Circulatory: RRR, extremities well perfused Abdomen: Non-distended, tender to palpation in the right lower quadrant, no rebound, no guarding Extremities: Normal ROM, No edema Skin: Warm and dry Neuro: Alert and oriented, no focal deficits Results Labs Reviewed CBC WITH AUTO DIFFERENTIAL - Abnormal Result Value WBC 12.0 (*) RBC 4.10 Hemoglobin 12.4 Hematocrit 39.7 MCV 97.8 MCH 30.5 MCHC 31.2 (*) RDW 13.5 Platelets 374 MPV 9.2 NRBC 0.0 NRBC Absolute 0.00 MANUAL DIFFERENTIAL - INSTRUMENT DIFFERENTIAL - Abnormal Neutrophils % 52.0 Lymphocytes % 32.0 Reactive Lymphocyte 5.00 Monocytes % 8.0 Eosinophils % 2.0 Basophils % 0.0 Neutrophils Absolute Manual 6.24 Lymphocytes Absolute 3.84 Reactive Lymph Abs Manual 0.60 (*) Monocytes Absolute Manual 0.96 Eosinophils Absolute Manual 0.24 Basophils Absolute Manual 0.00 Rbc Morphology Consistent with indices Platelet Morphology - WAM See Note (*) COMPREHENSIVE METABOLIC PANEL - Normal Sodium 140 Potassium 4.5 Chloride 110 CO2 26 Anion Gap 4 Glucose 95 BUN 16 Creatinine 0.98 eGFR 68 BUN/Creatinine Ratio 16.3 Calcium 9.0 AST (SGOT) 22 ALT (SGPT) 27 Alkaline Phosphatase 50 Total Protein 6.8 Albumin 3.8 Total Bilirubin 0.3 LIPASE - Normal Lipase 31 URINALYSIS WITH REFLEX MICROSCOPIC AND CULTURE - Normal Specific [place] Urine 1.025 pH, Urine 7.5 Leukocytes, Urine Negative Nitrite, Urine Negative Protein, Urine Trace Glucose, Urine Negative Ketones, Urine Negative Urobilinogen, Urine 1.0 Bilirubin, Urine Negative Blood, Urine Negative CBC AND DIFFERENTIAL Narrative: The following orders were created for panel order CBC and differential. Procedure Abnormality Status --------- ------ CBC auto differential[[id number]] Abnormal Final result Please view results for these tests on the individual orders. URINALYSIS WITH REFLEX MICROSCOPIC AND CULTURE Narrative: The following orders were created for panel order Urinalysis with reflex microscopic and culture. Procedure Abnormality Status --------- ------ Urinalysis with reflex ...[[id number]] Normal Final result Farrell urine culture tube[[id number]] Final result Please view results for these tests on the individual orders. Abnormal Labs Reviewed CBC WITH AUTO DIFFERENTIAL - Abnormal; Notable for the following components: Result Value WBC 12.0 (*) MCHC 31.2 (*) All other components within normal limits MANUAL DIFFERENTIAL - INSTRUMENT DIFFERENTIAL - Abnormal; Notable for the following components: Reactive Lymph Abs Manual 0.60 (*) Platelet Morphology - WAM See Note (*) All other components within normal limits CT Abdomen Pelvis w Contrast Final Result 1. No evidence of a bowel obstruction or free air. No pericolonic inflammation. No evidence of diverticulitis. 2. No hydronephrosis or obstructing stone. 3. Left lingular atelectasis. 4. Additional findings are detailed above. This document has been electronically signed by: Reginald Almaguer M.D. on 09/06/2024 05:19:25 I have discussed the incidental/abnormal imaging and/or lab abnormalities with the patient and haveinstructed them the need for further evaluation and workup with their primary care doctor. I have provided the patient with a paper copy of the abnormality. The laboratory results, imaging results and other diagnostic exam results were reviewed in the EMR. EKG Interpretation Critical Care Time None ? Medical Decision Making Medications morphine injection 4 mg (4 mg intravenous Given 09/06/24 2677) ketorolac (TORADOL) injection 15 mg (15 mg intravenous Given 09/06/24 9149) sodium chloride 0.9 % flush 10 mL (10 mL intravenous Given 09/06/24 0204) iopamidoL (ISOVUE-370) 370 mg iodine /mL (76 %) injection 90 mL (90 mL intravenous Given 09/06/24 9923) Clinical Impressions as of 09/06/24615 Right lower quadrant abdominal pain 58-year-old female, history of chronic abdominal pain, who presents with abdominal pain. Potential etiologies for her symptoms include but not limited to small bowel obstruction, appendicitis, diverticulitis, perforated viscus. Her history and physical exam is suggestive of possible adhesions causing abdominal wall pain. Screening labs were completed while she was in the waiting room. Patient states she has not had CT imaging in a few years, will do a CT of the abdomen pelvis to assess for possible intra-abdominal pathology. IV fluids, IV pain medication pending at this time. Patient's blood work shows no significant abnormalities. Her white count is slightly elevated at 12,000, but this is likely a stress response and likely not an infection. Her CT scan shows no acute abnormalities. There is no bowel obstruction, no free air, no pericolonic inflammation, no evidence of diverticulitis. There are no gallstones, no kidney stones. Unfortunately a specific cause for her pain was not identified. Patient informed of all the results, she had a prescription filled for 90 ligated on 08/28/2024, she would not be prescribed pain medication at this time. Patient discharged home and advised follow-up as needed. Patient understands and agrees with plan. Procedures Procedures Diagnosis 1. Right lower quadrant abdominal pain Disposition Discharge ED Prescriptions None Physician Attestation Harris Fay MD 09/06/24 0234 Harris Fay MD 09/06/24615 documented in this encounter Plan of Treatment Not on file documented as of this encounter Procedures Procedure Name Priority Date/Time Associated Diagnosis Comments CT ABDOMEN PELVIS W CONTRAST STAT 09/06/2024 4:26 AM EST URINALYSIS WITH REFLEX MICROSCOPIC AND CULTURE STAT 09/05/2024 4:53 PM EST FARRELL URINE CULTURE TUBE STAT 09/05/2024 4:53 PM EST URINALYSIS WITH REFLEX MICROSCOPIC AND CULTURE STAT 09/05/2024 4:53 PM EST MANUAL DIFFERENTIAL - SYSMEX WAM STAT 09/05/2024 4:29 PM EST CBC WITH AUTO DIFFERENTIAL STAT 09/05/2024 4:29 PM EST CBC AND DIFFERENTIAL STAT 09/05/2024 4:29 PM EST LIPASE STAT 09/05/2024 4:29 PM EST COMPREHENSIVE METABOLIC PANEL STAT 09/05/2024 4:29 PM EST documented in this encounter Results * CT Abdomen Pelvis w Contrast [...] Reginald Almaguer M.D. on 09/06/2024 05:19:25 Harris Fay MD IMG CT PROCEDURES * Farrell urine culture tube (09/05/2024 4:53 PM EST) Pathologist [facility] Extra Tube Hold for add-ons. 09/05/2024 7:01 PM EST [facility] Comment:Auto resulted. Urine Urine specimen obtained by clean catch procedure / Unknown Non-blood Collection / Unknown 09/05/2024 4:53 PM EST 09/05/2024 5:12 PM EST Harris Fay MD LAB URINE ORDERABLES [facility] [address] [place] [address], * Urinalysis with reflex microscopic and culture (09/05/2024 4:53 PM EST) [facility] Specific [place] Urine 1.025 1.003 - 1.030 LAB URINALYSIS - AUTOMATED METHOD 09/05/2024 5:17 PM EST [facility] pH, Urine 7.5 5.0 - 8.0 pH LAB URINALYSIS - AUTOMATED METHOD 09/05/2024 5:17 PM [facility] Leukocytes, Urine Negative Negative LAB URINALYSIS - AUTOMATED METHOD 09/05/2024 5:17 PM [facility] Nitrite, Urine Negative Negative LAB URINALYSIS - AUTOMATED METHOD 09/05/2024 5:17 PM [facility] Protein, Urine Trace <=Trace mg/dL LAB URINALYSIS - AUTOMATED METHOD 09/05/2024 5:17 PM [facility] Glucose, Urine Negative Negative mg/dL LAB URINALYSIS - AUTOMATED METHOD 09/05/2024 5:17 PM [facility] Ketones, Urine Negative Negative mg/dL LAB URINALYSIS - AUTOMATED METHOD 09/05/2024 5:17 PM [facility] Urobilinogen, Urine 1.0 0.2 - 1.0 mg/dL LAB URINALYSIS - AUTOMATED METHOD 09/05/2024 5:17 PM [facility] Bilirubin, Urine Negative Negative LAB URINALYSIS - AUTOMATED METHOD 09/05/2024 5:17 PM [facility] Blood, Urine Negative Negative LAB URINALYSIS - AUTOMATED METHOD 09/05/2024 5:17 PM [facility] Urine Urine specimen obtained by clean catch procedure / Unknown Non-blood Collection / Unknown 09/05/2024 4:53 PM EST 09/05/2024 5:12 PM EST Scot Muriel Fay MD LAB URINE ORDERABLES [facility] [address] [place] [address], * (ABNORMAL) Manual differential (09/05/2024 4:29 PM EST) Neutrophils % 52.0 % LAB HEMETOLOGY METHOD 09/05/2024 5:26 PM [facility] Lymphocytes % 32.0 % LAB HEMETOLOGY METHOD 09/05/2024 5:26 PM [facility] Reactive Lymphocyte 5.00 % LAB HEMETOLOGY METHOD 09/05/2024 5:26 PM [facility] Monocytes % 8.0 % LAB HEMETOLOGY METHOD 09/05/2024 5:26 PM [facility] Eosinophils % 2.0 % LAB HEMETOLOGY METHOD 09/05/2024 5:26 PM [facility] Basophils % 0.0 % LAB HEMETOLOGY METHOD 09/05/2024 5:26 PM [facility] Neutrophils Absolute Manual 6.24 1.50 - 7.00 K/mcL LAB HEMETOLOGY METHOD 09/05/2024 5:26 PM [facility] Lymphocytes Absolute 3.84 1.00 - 5.00 K/mcL LAB HEMETOLOGY METHOD 09/05/2024 5:26 PM [facility] Reactive Lymph Abs Manual 0.60(H) 0.00 - 0.00 lym LAB HEMETOLOGY METHOD 09/05/2024 5:26 PM [facility] Monocytes Absolute Manual 0.96 0.20 - 1.00 K/mcL LAB HEMETOLOGY METHOD 09/05/2024 5:26 PM [facility] Eosinophils Absolute Manual 0.24 0.00 - 0.50 K/mcL LAB HEMETOLOGY METHOD 09/05/2024 5:26 PM [facility] Basophils Absolute Manual 0.00 0.00 - 0.20 K/mcL LAB HEMETOLOGY METHOD 09/05/2024 5:26 PM [facility] Rbc Morphology Consistent with indices Consistent with indices, Normal for LAB HEMETOLOGY METHOD 09/05/2024 5:26 PM [facility] Platelet Morphology - WAM See Note(A) Normal LAB HEMETOLOGY METHOD 09/05/2024 5:26 PM EST [facility] Comment:PLT: Normal Blood Venous blood specimen / Unknown Venipuncture / Unknown 09/05/2024 4:29 PM EST 09/05/2024 4:51 PM EST Scot Muriel Fay MD LAB BLOOD ORDERABLES [facility] [address] [place] [address], * (ABNORMAL) CBC auto differential (09/05/2024 4:29 PM EST) WBC 12.0(H) 4.8 - 10.8 K/mcL LAB HEMETOLOGY METHOD 09/05/2024 5:26 PM [facility] RBC 4.10 3.80 - 4.80 M/mcL LAB HEMETOLOGY METHOD 09/05/2024 5:26 PM [facility] Hemoglobin 12.4 11.5 - 16.0 g/dL LAB HEMETOLOGY METHOD 09/05/2024 5:26 PM [facility] Hematocrit 39.7 35.0 - 47.0 % LAB HEMETOLOGY METHOD 09/05/2024 5:26 PM [facility] MCV 97.8 79.0 - 98.0 FL LAB HEMETOLOGY METHOD 09/05/2024 5:26 PM [facility] MCH 30.5 27.0 - 32.0 pcg LAB HEMETOLOGY METHOD 09/05/2024 5:26 PM [facility] MCHC 31.2(L) 32.0 - 37.0 g/dL LAB HEMETOLOGY METHOD 09/05/2024 5:26 PM [facility] RDW 13.5 11.0 - 15.0 % LAB HEMETOLOGY METHOD 09/05/2024 5:26 PM EST [facility] Platelets 374 130 - 400 K/mcL LAB HEMETOLOGY METHOD 09/05/2024 5:26 PM EST [facility] MPV 9.2 7.0 - 11.0 FL LAB HEMETOLOGY METHOD 09/05/2024 5:26 PM EST [facility] NRBC 0.0 <1.0 % LAB HEMETOLOGY METHOD 09/05/2024 5:26 PM EST [facility] NRBC Absolute 0.00 <0.10 K/mcL LAB HEMETOLOGY METHOD 09/05/2024 5:26 PM EST [facility] Blood Venous blood specimen / Unknown Venipuncture / Unknown 09/05/2024 4:29 PM EST 09/05/2024 4:51 PM EST Harris Fay MD LAB BLOOD ORDERABLES Performing Organization Address City/[facility]/ZIP Co de Phone Number [facility] [address] [place] [address], [place] [phone] * Lipase (09/05/2024 4:29 PM EST) Pathologist [facility] Lipase 31 13 - 75 unit/L LAB CHEMISTRY METHOD 09/05/2024 5:21 PM EST [facility] Blood Venous blood specimen / Unknown Venipuncture / Unknown 09/05/2024 4:29 PM EST 09/05/2024 4:51 PM EST Harris Fay MD LAB BLOOD ORDERABLES Performing Organization Address City/[facility]/ZIP Co de Phone Number [facility] [address] [place] [address], [place] [phone] * Comprehensive metabolic panel (09/05/2024 4:29 PM EST) Sodium 140 133 - 145 mmol/L LAB CHEMISTRY METHOD 09/05/2024 5:21 PM [facility] Potassium 4.5 3.5 - 5.5 mmol/L LAB CHEMISTRY METHOD 09/05/2024 5:21 PM [facility] Chloride 110 96 - 110 mmol/L LAB CHEMISTRY METHOD 09/05/2024 5:21 PM [facility] CO2 26 21 - 32 mmol/L LAB CHEMISTRY METHOD 09/05/2024 5:21 PM [facility] Anion Gap 4 3 - 11 LAB CHEMISTRY METHOD 09/05/2024 5:21 PM [facility] Glucose 95 70 - 100 mg/dL LAB CHEMISTRY METHOD 09/05/2024 5:21 PM [facility] BUN 16 5 - 25 mg/dL LAB CHEMISTRY METHOD 09/05/2024 5:21 PM [facility] Creatinine 0.98 0.50 - 1.10 mg/dL LAB CHEMISTRY METHOD 09/05/2024 5:21 PM [facility] eGFR 68 >=60 mL/min/1. 73m2 LAB CHEMISTRY METHOD 09/05/2024 5:21 PM [facility] Comment:Calculation based on the??Chronic Kidney Disease Epidemiology Collaboration (CKD-EPI) equation refit??without adjustment for race. BUN/Creatinine Ratio 16.3 LAB CHEMISTRY METHOD 09/05/2024 5:21 PM [facility] Calcium 9.0 8.5 - 10.5 mg/dL LAB CHEMISTRY METHOD 09/05/2024 5:21 PM [facility] AST (SGOT) 22 10 - 42 unit/L LAB CHEMISTRY METHOD 09/05/2024 5:21 PM [facility] ALT (SGPT) 27 10 - 60 unit/L LAB CHEMISTRY METHOD 09/05/2024 5:21 PM [facility] Alkaline Phosphatase 50 42 - 121 unit/L LAB CHEMISTRY METHOD 09/05/2024 5:21 PM [facility] Total Protein 6.8 6.0 - 8.0 g/dL LAB CHEMISTRY METHOD 09/05/2024 5:21 PM EST [facility] Albumin 3.8 3.2 - 5.0 g/dL LAB CHEMISTRY METHOD 09/05/2024 5:21 PM EST [facility] Total Bilirubin 0.3 0.0 - 1.4 mg/dL LAB CHEMISTRY METHOD 09/05/2024 5:21 PM EST [facility] Blood Venous blood specimen / Unknown Venipuncture / Unknown 09/05/2024 4:29 PM EST 09/05/2024 4:51 PM EST Harris Fay MD LAB BLOOD ORDERABLES [facility] [address] [place] [address], documented in this encounter Visit Diagnoses Diagnosis Right lower quadrant abdominal pain- Primary documented in this encounter Administered Medications Inactive Administered Medications - up to 3 most recent administrations Medication Order MAR Action Action Date Dose Rate Site iopamidoL (ISOVUE-370) 370 mg iodine /mL (76 %) injection 90 mL 90 mL, intravenous, Once in imaging, Starting on Wed09/06/24 at 0422, For 1 dose Given 09/06/2024 4:23 AM EST 90 mL ketorolac (TORADOL) injection 15 mg 15 mg, intravenous, Once, On Wed09/06/24 at 0245, For 1 dose Given 09/06/2024 3:59 AM EST 15 mg morphine injection 4 mg 4 mg, intravenous, Once, On Wed09/06/24 at 0245, For 1 dose Given 09/06/2024 3:59 AM EST 4 mg sodium chloride 0.9 % flush 10 mL 10 mL, intravenous, Once, On Wed09/06/24 at 0424, For 1 dose Given 09/06/2024 4:24 AM EST 10 mL documented in this encounter Active and Recently Administered Medications Times are shown in EST. Scheduled Medication Order 09/04/2024 09/05/2024 09/06/2024 iopamidoL (ISOVUE-370) 370 mg iodine /mL (76 %) injection 90 mL (COMPLETED) 90 mL, intravenous, Once in imaging, Starting on Wed09/06/24 at 0422, For 1 dose 0423 (Given - Provid er: [place] Mera) ketorolac (TORADOL) injection 15 mg (COMPLETED) 15 mg, intravenous, Once, On Wed09/06/24 at 0245, For 1 dose 0359 (Given - Provid er: Brissa Araiza RN) morphine injection 4 mg (COMPLETED) 4 mg, intravenous, Once, On Wed09/06/24 at 0245, For 1 dose 0359 (Given - Provid er: Brissa Araiza RN) sodium chloride 0.9 % flush 10 mL (COMPLETED) 10 mL, intravenous, Once, On Wed09/06/24 at 0424, For 1 dose 0424 (Given - Provid er: [facility] Mera) documented in this encounter Orders IV Count Last Ordered Date First Orde red Date INSERT PERIPHERAL IV 1 09/06/2024 documented in this encounter Care Teams Certified Histologic Technician Relationship Specialty Start Date End Date Johann Trujillo MD [facility] JAVIER Montenegro PCP - General Internal Medicine 09/06/24 documented as of this encounter
== END 2024-09-21 16:42 | disposition home or self-care (01) ==
PROVIDERS: PCP Internal Medicine; Referring Provider Internal Medicine; Visit Provider Surgery
DX: R10.2 Pelvic and perineal pain (principal)
CPT/HCPCS: 99204

== ENCOUNTER → 2024-09-21 15:03 | Outpatient (BNVA) | payer MEDICAID, SELFPAY | PROVIDERS: PCP Internal Medicine; Referring Provider Internal Medicine; Visit Provider Surgery | DX: R10.2 Pelvic and perineal pain (principal) | CPT/HCPCS: 99202 ==

== ENCOUNTER → 2024-10-23 12:40 | Outpatient (BNV) | payer MEDICAID, SELFPAY | PROVIDERS: PCP Internal Medicine; Visit Provider Radiology Diagnostic Radiology | DX: R10.2 Pelvic and perineal pain (principal) | CPT/HCPCS: 72197 ==

== ENCOUNTER 2024-10-23 12:43 | Outpatient (REF) | payer MEDICAID, SELFPAY ==
--- NOTE | ~2024-10-23 | MR_ITS ---
CLINICAL HISTORY: R10.2 - Pelvic and perineal pain MRI pelvis without and with contrast Comparison: None Findings: Status post hysterectomy. Nonvisualization of the bilateral ovaries. No pelvic free fluid. No lymphadenopathy. Unremarkable soft tissues including the soft tissues of the perineum. No fluid collection. Poorly distended urinary bladder without obvious abnormality. Visualized bowel is unremarkable. There are areas of fatty replacement of bone marrow. No suspicious bone lesion. Impression: 1. No acute abnormality. 2. Patchy fatty replacement of bone marrow suggesting possible osteoporosis. This document has been electronically signed by: Radha Campuzano MD on 10/25/2024 16:52:05
[2024-10-23] MEDS: gadobutroL 10 ML VIAL IVPUSH (14:08)
--- OUTSIDE RECORDS SUMMARY | 2024-10-23 14:52 | XMS_ITS | Clinical Summary ---
Author Organization [facility] Address [address] [place] [address] Phone Care Team Providers Care Assembler Tester Name Role Phone Johann Trujillo MD Primary Care Provider [phone] Allergies Active Allergy Reactions Criticality Noted Date Comments Codeine Nausea Only 03/10/2021 Lidocaine-Prilocaine 09/05/2024 Medications No known medications Encounters Date Type Department Care Team Description 09/06/2024 2:09 AM EST - 09/06/2024 6:29 AM EST Emergency [facility] Emergency [address] [place] [address] Harris Fay MD Right lower [...] drink = 0.6 oz pur e alcohol) Comments Unknown Sex and Gender Information Value Date Recorded Sex Assigned at Not on file Legal Sex Female 3:02 PM EST Gender Identity Not on file Sexual Orientation Not on file Obstetrics History Last Filed [...] 12/16/1986 Cervical Cancer Screening: Pap Smear 12/16/1988 Pneumococcal Vaccine: 50+ Years (1 of 1 - PCV) 12/16/2017 Cholesterol Screening (Lipid Panel) 07/22/2022 Colorectal Cancer Screening: Colonoscopy 07/22/2022 Depression Screening 07/22/2022 HIV Screening 07/22/2022 Hepatitis C Screening 07/22/2022 Lung Cancer Screening (Low Dose CT) 07/22/2022 Social Influencers of Health Screening 07/22/2022 Breast Cancer Screening 01/24/2024 01/24/20, 01/21/2021, 04/29/2019, Additional history exists COVID-19 Vaccine [...] patient's age to complete this topic Meningococcal B Vacine Aged Out No lo nger eligible based on patient's age to complete [...] AND DIFFERENTIAL STAT 09/05/2024 4:29 PM EST [facility] SCREENING DIGITAL Routine 01/23/2022 4:44 PM EDT Encounter for screening mammogram for malignant neoplasm of breast [facility] DEXA AXIAL SKELETON Routine 10/30/2019 [...] 05:19:25 Harris Fay MD IMG CT PROCEDURES Final Result * Urinalysis with reflex microscopic and culture (09/05/2024 4:53 PM EST) Specific [place] Urine 1.025 1.003 - 1.030 LAB URINALYSIS - AUTOMATED METHOD 09/05/2024 5:17 PM [facility] pH, Urine 7.5 5.0 - 8.0 pH LAB URINALYSIS - AUTOMATED METHOD 09/05/2024 5:17 PM [facility] Leukocytes, Urine Negative Negative LAB URINALYSIS - AUTOMATED METHOD 09/05/2024 5:17 PM [facility] Nitrite, Urine Negative Negative LAB URINALYSIS - AUTOMATED METHOD 09/05/2024 5:17 PM [facility] Protein, Urine Trace <=Trace mg/dL LAB URINALYSIS - AUTOMATED METHOD 09/05/2024 5:17 PM [facility] Glucose, Urine Negative Negative mg/dL LAB URINALYSIS - AUTOMATED METHOD 09/05/2024 5:17 PM [facility] Ketones, Urine Negative Negative mg/dL LAB URINALYSIS - AUTOMATED METHOD 09/05/2024 5:17 PM [facility] Urobilinogen, Urine 1.0 0.2 - 1.0 mg/dL LAB URINALYSIS - AUTOMATED METHOD 09/05/2024 5:17 PM [facility] Bilirubin, Urine Negative Negative LAB URINALYSIS - AUTOMATED METHOD 09/05/2024 5:17 PM [facility] Blood, Urine Negative Negative LAB URINALYSIS - AUTOMATED METHOD 09/05/2024 5:17 PM [facility] Urine Urine specimen obtained by clean catch procedure / Unknown Non-blood Collection / Unknown 09/05/2024 4:53 PM EST 09/05/2024 5:12 PM EST Harris Fay MD LAB URINE ORDERABLES Final Resu lt [facility] [address] [place] [address], [place] [phone] * Farrell urine culture tube (09/05/2024 4:53 PM EST) Extra Tube Hold for add-ons. 09/05/2024 7:01 PM EST [facility] Comment:Auto resulted. Urine Urine specimen obtained by clean catch procedure / Unknown Non-blood Collection / Unknown 09/05/2024 4:53 PM EST 09/05/2024 5:12 PM EST Harris Fay MD LAB URINE ORDERABLES Final Resu lt Performing Organization Address [facility]/ZIP Co de Phone Number [facility] [address] [place] [address], [place] [phone] * (ABNORMAL) Manual differential (09/05/2024 4:29 PM EST) Neutrophils % 52.0 % LAB HEMETOLOGY METHOD 09/05/2024 5:26 PM [facility] Lymphocytes % 32.0 % LAB HEMETOLOGY METHOD 09/05/2024 5:26 PM [facility] Reactive Lymphocyte 5.00 % LAB HEMETOLOGY METHOD 09/05/2024 5:26 PM [facility] Monocytes % 8.0 % LAB HEMETOLOGY METHOD 09/05/2024 5:26 PM [facility] Eosinophils % 2.0 % LAB HEMETOLOGY METHOD 09/05/2024 5:26 PM [facility] Basophils % 0.0 % LAB HEMETOLOGY METHOD 09/05/2024 5:26 PM [facility] Neutrophils Absolute Manual 6.24 1.50 - 7.00 K/mcL LAB HEMETOLOGY METHOD 09/05/2024 5:26 PM [facility] Lymphocytes Absolute 3.84 1.00 - 5.00 K/mcL LAB HEMETOLOGY METHOD 09/05/2024 5:26 PM EST [facility] Reactive Lymph Abs Manual 0.60(H) 0.00 - 0.00 lym LAB HEMETOLOGY METHOD 09/05/2024 5:26 PM EST [facility] Monocytes Absolute Manual 0.96 0.20 - 1.00 K/mcL LAB HEMETOLOGY METHOD 09/05/2024 5:26 PM EST [facility] Eosinophils Absolute Manual 0.24 0.00 - 0.50 K/mcL LAB HEMETOLOGY METHOD 09/05/2024 5:26 PM EST [facility] Basophils Absolute Manual 0.00 0.00 - 0.20 K/mcL LAB HEMETOLOGY METHOD 09/05/2024 5:26 PM EST [facility] Rbc Morphology Consistent with indices Consistent with indices, Normal for [place] LAB HEMETOLOGY METHOD 09/05/2024 5:26 PM EST [facility] Platelet Morphology - WAM See Note(A) Normal LAB HEMETOLOGY METHOD 09/05/2024 5:26 PM EST [facility] Comment:PLT: Normal Blood Venous blood specimen / Unknown Venipuncture / Unknown 09/05/2024 4:29 PM EST 09/05/2024 4:51 PM EST us Harris Fay MD LAB BLOOD ORDERABLES Final Resu lt [facility] [address] [place] [address], * (ABNORMAL) CBC auto differential (09/05/2024 4:29 PM EST) WBC 12.0(H) 4.8 - 10.8 K/mcL LAB HEMETOLOGY METHOD 09/05/2024 5:26 PM EST [facility] RBC 4.10 3.80 - 4.80 M/mcL LAB HEMETOLOGY METHOD 09/05/2024 5:26 PM [facility] Hemoglobin 12.4 11.5 - 16.0 g/dL LAB HEMETOLOGY METHOD 09/05/2024 5:26 PM [facility] Hematocrit 39.7 35.0 - 47.0 % LAB HEMETOLOGY METHOD 09/05/2024 5:26 PM [facility] MCV 97.8 79.0 - 98.0 FL LAB HEMETOLOGY METHOD 09/05/2024 5:26 PM [facility] MCH 30.5 27.0 - 32.0 pcg LAB HEMETOLOGY METHOD 09/05/2024 5:26 PM [facility] MCHC 31.2(L) 32.0 - 37.0 g/dL LAB HEMETOLOGY METHOD 09/05/2024 5:26 PM [facility] RDW 13.5 11.0 - 15.0 % LAB HEMETOLOGY METHOD 09/05/2024 5:26 PM [facility] Platelets 374 130 - 400 K/mcL LAB HEMETOLOGY METHOD 09/05/2024 5:26 PM [facility] MPV 9.2 7.0 - 11.0 FL LAB HEMETOLOGY METHOD 09/05/2024 5:26 PM [facility] NRBC 0.0 <1.0 % LAB HEMETOLOGY METHOD 09/05/2024 5:26 PM [facility] NRBC Absolute 0.00 <0.10 K/mcL LAB HEMETOLOGY METHOD 09/05/2024 5:26 PM [facility] Blood Venous blood specimen / Unknown Venipuncture / Unknown 09/05/2024 4:29 PM EST 09/05/2024 4:51 PM EST us Scot A Millay MD LAB BLOOD ORDERABLES Final Resu lt Performing Organization Address [facility]/ZIP Co de Phone Number [facility] [address] [place] [address], [place] [phone] * Lipase (09/05/2024 4:29 PM EST) Lipase 31 13 - 75 unit/L LAB CHEMISTRY METHOD 09/05/2024 5:21 PM [facility] Blood Venous blood specimen / Unknown Venipuncture / Unknown 09/05/2024 4:29 PM EST 09/05/2024 4:51 PM EST Harris Fay MD LAB BLOOD ORDERABLES Final Resu lt Performing Organization Address [facility]/ZIP Co de Phone Number [facility] [address] [place] [address], [place] [phone] * Comprehensive metabolic panel (09/05/2024 4:29 PM EST) Sodium 140 133 - 145 mmol/L LAB CHEMISTRY METHOD 09/05/2024 5:21 PM [facility] Potassium 4.5 3.5 - 5.5 mmol/L LAB CHEMISTRY METHOD 09/05/2024 5:21 PM [facility] Chloride 110 96 - 110 mmol/L LAB CHEMISTRY METHOD 09/05/2024 5:21 PM [facility] CO2 26 21 - 32 mmol/L LAB CHEMISTRY METHOD 09/05/2024 5:21 PM [facility] Anion Gap 4 3 - 11 LAB CHEMISTRY METHOD 09/05/2024 5:21 PM [facility] Glucose 95 70 - 100 mg/dL LAB CHEMISTRY METHOD 09/05/2024 5:21 PM [facility] BUN 16 5 - 25 mg/dL LAB CHEMISTRY METHOD 09/05/2024 5:21 PM [facility] Creatinine 0.98 0.50 - 1.10 mg/dL LAB CHEMISTRY METHOD 09/05/2024 5:21 PM [facility] eGFR 68 >=60 mL/min/1. 73m2 LAB CHEMISTRY METHOD 09/05/2024 5:21 PM [facility] Comment:Calculation based on the??Chronic Kidney Disease Epidemiology Collaboration (CKD-EPI) equation refit??without adjustment for race. BUN/Creatinine Ratio 16.3 LAB CHEMISTRY METHOD 09/05/2024 5:21 PM [facility] Calcium 9.0 8.5 - 10.5 mg/dL LAB CHEMISTRY METHOD 09/05/2024 5:21 PM [facility] AST (SGOT) 22 10 - 42 unit/L LAB CHEMISTRY METHOD 09/05/2024 5:21 PM [facility] ALT (SGPT) 27 10 - 60 unit/L LAB CHEMISTRY METHOD 09/05/2024 5:21 PM [facility] Alkaline Phosphatase 50 42 - 121 unit/L LAB CHEMISTRY METHOD 09/05/2024 5:21 PM [facility] Total Protein 6.8 6.0 - 8.0 g/dL LAB CHEMISTRY METHOD 09/05/2024 5:21 PM [facility] Albumin 3.8 3.2 - 5.0 g/dL LAB CHEMISTRY METHOD 09/05/2024 5:21 PM [facility] Total Bilirubin 0.3 0.0 - 1.4 mg/dL LAB CHEMISTRY METHOD 09/05/2024 5:21 PM [facility] Blood Venous blood specimen / Unknown Venipuncture / Unknown 09/05/2024 4:29 PM EST 09/05/2024 4:51 PM EST us Harris Fay MD LAB BLOOD ORDERABLES Final Resu lt [facility] [address] [place] [address], * [facility] SCREENING DIGITAL (01/23/2022 4:44 PM EDT) Anatomical Region Laterality Modality Mammography 01/23/2022 11:1 5 AM EDT Narrative 01/23/2022 4:44 PM EDT [facility] Diagnostic Imaging Department [address] [place] [address] Patient: ??SUÁREZEDU ?/Age/Sex: 1965 - 56 - F Unit#: ??[id number] ? Location/Status: ??SPDIMAM/REG CLI ? Mnemonic/Ordering Site: ??DIGSC/SPMAM Ordering Physician: ??KATHERIN ALVARADO MD [facility] Screening Digital - 01/23/22 - 1154 History: Bilateral breast cancer screening. Technique: ??Digital mammography. Conventional CC and MLO projections with tomosynthesis MLO views and computer aided detection. Comparison: [facility] 01/27/2021 dating back to 02/10/2016. Findings: ?? Breast tissue consists of fatty and fibroglandular elements (category b density) bilaterally (as calculated by [employer] software). There is no suspicious group of microcalcifications, mass, architectural distortion or suspicious change in breast tissue density. Impression: No evidence of malignancy. BIRADS category 1; negative study, 3341F 76134, 71110 Note: Patient information entered into a reminder system with a target due date for the next mammogram: ??CPT II 7025F Dictating Physician: ??CANDELARIO LOUISE MD Electronically Signed by: ??CANDELARIO LOUISE MD Dic Date/Time: ??01/23/22 1640 Sign date/Time: ??01/23/22 1644 Procedure Note Candelario Louise MD - 08/12/2022 [facility] Diagnostic Imaging Department [address] [place], [place] [id number] Patient: EDU SUÁREZ Ellen /Age/Sex: 1965 - 56 - F Unit#: [id number] Location/Status: [facility] CLI Mnemonic/Ordering Site: [facility] Ordering Physician: KATHERIN ALVARADO MD [facility] Screening Digital - 01/23/22 - 1154 History: Bilateral breast cancer screening. Technique: Digital mammography. Conventional CC and MLO projectionswith tomosynthesis MLO views and computer aided detection. Comparison: [facility] 01/27/2021 dating back to 02/10/2016. Findings: Breast tissue consists of fatty and fibroglandular elements (category b density) bilaterally (as calculated by [employer]). There is no suspicious group of microcalcifications, mass, architectural distortion or suspicious change in breast tissue density. Impression: No evidence of malignancy. BIRADS category 1; negative study, 3341F 79657, 37661 Note: Patient information entered into a reminder system with a target duedate for the next mammogram: CPT II 7025F Dictating Physician: CANDELARIO LOUISE MD Electronically Signed by: CANDELARIO LOUISE MD Dic Date/Time: 01/23/22 1640 Sign date/Time: 01/23/22 3113 us Katherin Alvarado MD IMG BI PROCEDURES Final Resu lt * [facility] DEXA AXIAL SKELETON (10/30/2019 8:08 AM EDT) Anatomical Region Laterality Modality Mammography 10/30/2019 7:36 AM EDT Narrative 10/30/2019 8:08 AM EDT [facility] Diagnostic Imaging Department [address] [place], [place] [id number] Patient: ??SUÁREZEDU ?/Age/Sex: 1965 - 53 - F Unit#: ??[id number] ? Location/Status: ??SPDIMAM/REG CLI ? Mnemonic/Ordering Site: ??MAMDEXAAX/SPMAM Ordering Physician: ??GERARDO CHO MD [facility] Dexa Axial Skeleton - 10/30/19 - 2857 HISTORY: ??The patient is a 53-year-old postmenopausal [...] probability of hip fracture of 1.2%. Code 42491 Dictating Physician: ??GABRIELLA JIMÉNEZ MD Electronically Signed by: ??GABRIELLA JIMÉNEZ MD Dic Date/Time: ??10/30/19 08 Sign date/Time: ??10/30/19 0808 Procedure Note Gabriella Jiménez - 08/11/2022 [facility] Diagnostic Imaging Department [address] [place] [address] Patient: EDU SUÁREZ Ellen CostaB./Age/Sex: 1965 - 53 - F Unit#: [id number] Location/Status: SPDIMAM/REG CLI [facility] Ordering Physician: GERARDO CHO MD [facility] Dexa [...] density of the femurs bilaterally is 0.796 gm/[id number] is 79% of that of young normals [...] probability of hip fracture of 1.2%. Code 54848 Dictating Physician: GABRIELLA JIMÉNEZ MD Electronically Signed by: GABRIELLA JIMÉNEZ MD Dic Date/Time: 10/30/19805 Sign date/Time: 10/30/19807 Gerardo Cho MD IMG BI PROCEDURES Final Result from Last 3 Months or Most Recently Relevant to Health Maintenance Insurance MEDICAID - [place] Care Teams Assembler Tester Relationship Specialty Start Date End Date Johann Trujillo MD [address] [facility] [place] PCP - General Internal Medicine 09/06/24
== END 2024-10-23 12:44 | disposition home or self-care (01) ==
LOC: HO.MRI 12:43
PROVIDERS: PCP Internal Medicine; Visit Provider Surgery
DX: R10.30 Lower abdominal pain, unspecified (principal)
CPT/HCPCS: 72197; A9585

== ENCOUNTER 2024-11-20 10:35 | Outpatient (AMB) | payer MEDICAID, SELFPAY ==
--- NOTE | 2024-11-20 10:38 | A.OFFVIS_ITS ---
Intake Visit Reasons: 3 boils in between legs Intake Note: Patient scheduled today's visit as an urgent appointment c/o 3 boils between legs in groin. HX: Hydradenitis Suppurativa. Flare started Wednesday morning. Patient c/o: hot compresses. Uses Hibiclens wash. 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 Accompanied by: Self / Same As Patient Allergies codeine Adverse Reaction (Intermediate, Verified 11/20/24 10:43) Vomiting Medication List - Last Reconciled 11/20/24 by Lei Acosta MD acetaminophen ER 650 mg PO QID alendronate 70 mg PO QWEEK bupropion HCl SR 150 mg PO BID calcium carbonate 600 mg PO DAILY cholecalciferol (vitamin D3) 25 mcg PO DAILY cholestyramine (with sugar) 4 gram 1 - 2 ea PO TID diazepam 2 mg PO TID donepezil 10 mg PO BEDTIME duloxetine 30 mg PO DAILY gabapentin 600 mg PO BID magnesium 500 mg PO DAILY magnesium oxide 500 mg PO DAILY metoprolol succinate ER 50 mg PO DAILY mirabegron ER (Myrbetriq) 50 mg PO DAILY omeprazole 20 mg PO BID pramipexole 0.375 mg PO BEDTIME topiramate mg PO HPI Comments Details: Patient with a history of hidradenitis suppurativa and a variety of surgeries regarding this in the past, now presents with a carbuncle/boil involving her left peritoneum. This has been going on since this past Wednesday. Because of progression of symptoms he presents here for further evaluation. Chart was reviewed and patient evaluate [facility] Medical History Hx of pilonidal cyst Degenerative disc disease, cervical Tinnitus of left ear Adenomyosis of uterus Bilateral breast cysts Sleep apnea Short-term memory loss Rheumatoid arthritis Osteoporosis SI (sacroiliac) joint dysfunction Hidradenitis suppurativa Occipital neuralgia Fibromyalgia HTN (hypertension) Lumbar disc disease Depression Overactive bladder Restless leg syndrome Peripheral neuropathy Surgical History History of gynecologic surgery History of surgery Hx of shoulder surgery H/O laminectomy History of carpal tunnel release of both wrists Hx of elbow surgery Hx of hysterectomy Hx of left knee surgery Hx of arthroscopy of left knee Hx of abdominal surgery H/O LEEP History of intestinal surgery Hx of appendectomy Social History Patient Tobacco Use Status: Former Tobacco user Physical Exam Skin Other: Patient was a carbuncle involving the left proximal inner thigh/peritoneum. Mildly tender. No evidence of any fluctuance or abscess at this time. Assessment & Plan Assessment & Plan (1) Carbuncle: Code(s): L02.93 - Carbuncle, unspecified Category: Surgical Plan Current plan is to attempt conservative therapy in the form of the warm compresses was antibiotics. She will follow up with Dr. Farley later this week. Should this process progressively worsened during this interim, patient was instructed to contact the office. Otherwise he will be seen as directed above. She may require I&D should the process not resolve but we will attempt to avoid this if possible. All questions answered. Medications: New cephalexin 500 mg PO TID 30 caps 0RF Coding Level of Care Code New Pt Level 4 (51334) Diagnoses Carbuncle L02.93
--- OUTSIDE RECORDS SUMMARY | 2024-11-20 11:53 | XMS_ITS | Clinical Summary ---
Author Organization [facility] Address [address] [place] [address] Phone Care Team Providers Care Guide Tour Name Role Phone Johann Trujillo MD Primary Care Provider [phone] Allergies Active Allergy Reactions Criticality Noted Date Comments Codeine Nausea Only 03/10/2021 Lidocaine-Prilocaine 09/05/2024 Medications No known medications Encounters Date Type Department Care Team Description 09/06/2024 2:09 AM EST - 09/06/2024 6:[address] [facility] Emergency [address] [place] [address] Harris Fay MD Right lower [...] AND DIFFERENTIAL STAT 09/05/2024 4:29 PM EST [facility] SCREENING DIGITAL Routine 01/23/2022 4:44 PM EDT Encounter for screening mammogram for malignant neoplasm of breast [facility] DEXA AXIAL SKELETON Routine 10/30/2019 8:08 AM [...] and culture (09/05/2024 4:53 PM EST) Specific [place] Urine 1.025 1.003 - 1.030 LAB URINALYSIS - AUTOMATED METHOD 09/05/2024 5:17 PM [facility] pH, Urine 7.5 5.0 - 8.0 pH LAB URINALYSIS - AUTOMATED METHOD 09/05/2024 5:17 PM [facility] Leukocytes, Urine Negative Negative LAB URINALYSIS - AUTOMATED METHOD 09/05/2024 5:17 PM [facility] Nitrite, Urine Negative Negative LAB URINALYSIS - AUTOMATED METHOD 09/05/2024 5:17 PM [facility] Protein, Urine Trace <=Trace mg/dL LAB URINALYSIS - AUTOMATED METHOD 09/05/2024 5:17 PM [facility] Glucose, Urine Negative Negative mg/dL LAB URINALYSIS - AUTOMATED METHOD 09/05/2024 5:17 PM [facility] Ketones, Urine Negative Negative mg/dL LAB URINALYSIS - AUTOMATED METHOD 09/05/2024 5:17 PM [facility] Urobilinogen, Urine 1.0 0.2 - 1.0 mg/dL LAB URINALYSIS - AUTOMATED METHOD 09/05/2024 5:17 PM [facility] Bilirubin, Urine Negative Negative LAB URINALYSIS - AUTOMATED METHOD 09/05/2024 5:17 PM [facility] Blood, Urine Negative Negative LAB URINALYSIS - AUTOMATED METHOD 09/05/2024 5:17 PM [facility] Urine Urine specimen obtained by clean catch procedure / Unknown Non-blood Collection / Unknown 09/05/2024 4:53 PM EST 09/05/2024 5:12 PM EST Harris Fay MD LAB URINE ORDERABLES Final Resu lt [facility] [address] [place] [address], [place] [phone] * Farrell urine culture tube (09/05/2024 4:53 PM EST) Extra Tube Hold for add-ons. 09/05/2024 7:01 PM EST [facility] Comment:Auto resulted. Urine Urine specimen obtained by clean catch procedure / Unknown Non-blood Collection / Unknown 09/05/2024 4:53 PM EST 09/05/2024 5:12 PM EST Harris Fay MD LAB URINE ORDERABLES Final Resu lt Performing Organization Address [facility]/ZIP Co de Phone Number [facility] [address] [place] [address], [place] [phone] * (ABNORMAL) Manual differential (09/05/2024 4:29 PM EST) Neutrophils % 52.0 % LAB HEMETOLOGY METHOD 09/05/2024 5:26 PM [facility] Lymphocytes % 32.0 % LAB HEMETOLOGY METHOD 09/05/2024 5:26 PM [facility] Reactive Lymphocyte 5.00 % LAB HEMETOLOGY METHOD 09/05/2024 5:26 PM [facility] Monocytes % 8.0 % LAB HEMETOLOGY METHOD 09/05/2024 5:26 PM [facility] Eosinophils % 2.0 % LAB HEMETOLOGY METHOD 09/05/2024 5:26 PM [facility] Basophils % 0.0 % LAB HEMETOLOGY METHOD 09/05/2024 5:26 PM [facility] Neutrophils Absolute Manual 6.24 1.50 - 7.00 K/mcL LAB HEMETOLOGY METHOD 09/05/2024 5:26 PM [facility] Lymphocytes Absolute 3.84 1.00 - 5.00 K/mcL LAB HEMETOLOGY METHOD 09/05/2024 5:26 PM EST [facility] Reactive Lymph Abs Manual 0.60(H) 0.00 - 0.00 lym LAB HEMETOLOGY METHOD 09/05/2024 5:26 PM EST [facility] Monocytes Absolute Manual 0.96 0.20 - 1.00 K/mcL LAB HEMETOLOGY METHOD 09/05/2024 5:26 PM EST [facility] Eosinophils Absolute Manual 0.24 0.00 - 0.50 K/mcL LAB HEMETOLOGY METHOD 09/05/2024 5:26 PM EST [facility] Basophils Absolute Manual 0.00 0.00 - 0.20 K/mcL LAB HEMETOLOGY METHOD 09/05/2024 5:26 PM EST [facility] Rbc Morphology Consistent with indices Consistent with indices, Normal for LAB HEMETOLOGY METHOD 09/05/2024 5:26 PM EST [facility] Platelet Morphology - WAM See Note(A) Normal LAB HEMETOLOGY METHOD 09/05/2024 5:26 PM EST [facility] Comment:PLT: Normal Blood Venous blood specimen / Unknown Venipuncture / Unknown 09/05/2024 4:29 PM EST 09/05/2024 4:51 PM EST us Harris Fay MD LAB BLOOD ORDERABLES Final Resu lt [facility] [address] [place] [address], * (ABNORMAL) CBC auto differential (09/05/2024 4:29 PM EST) WBC 12.0(H) 4.8 - 10.8 K/mcL LAB HEMETOLOGY METHOD 09/05/2024 5:26 PM EST [facility] RBC 4.10 3.80 - 4.80 M/mcL LAB HEMETOLOGY METHOD 09/05/2024 5:26 PM [facility] Hemoglobin 12.4 11.5 - 16.0 g/dL LAB HEMETOLOGY METHOD 09/05/2024 5:26 PM [facility] Hematocrit 39.7 35.0 - 47.0 % LAB HEMETOLOGY METHOD 09/05/2024 5:26 PM [facility] MCV 97.8 79.0 - 98.0 FL LAB HEMETOLOGY METHOD 09/05/2024 5:26 PM [facility] MCH 30.5 27.0 - 32.0 pcg LAB HEMETOLOGY METHOD 09/05/2024 5:26 PM [facility] MCHC 31.2(L) 32.0 - 37.0 g/dL LAB HEMETOLOGY METHOD 09/05/2024 5:26 PM [facility] RDW 13.5 11.0 - 15.0 % LAB HEMETOLOGY METHOD 09/05/2024 5:26 PM [facility] Platelets 374 130 - 400 K/mcL LAB HEMETOLOGY METHOD 09/05/2024 5:26 PM [facility] MPV 9.2 7.0 - 11.0 FL LAB HEMETOLOGY METHOD 09/05/2024 5:26 PM [facility] NRBC 0.0 <1.0 % LAB HEMETOLOGY METHOD 09/05/2024 5:26 PM [facility] NRBC Absolute 0.00 <0.10 K/mcL LAB HEMETOLOGY METHOD 09/05/2024 5:26 PM [facility] Blood Venous blood specimen / Unknown Venipuncture / Unknown 09/05/2024 4:29 PM EST 09/05/2024 4:51 PM EST us Scot A Millay MD LAB BLOOD ORDERABLES Final Resu lt Performing Organization Address [facility]/ZIP Co de Phone Number [facility] [address] [place] [address], [place] [phone] * Lipase (09/05/2024 4:29 PM EST) Lipase 31 13 - 75 unit/L LAB CHEMISTRY METHOD 09/05/2024 5:21 PM [facility] Blood Venous blood specimen / Unknown Venipuncture / Unknown 09/05/2024 4:29 PM EST 09/05/2024 4:51 PM EST Harris Fay MD LAB BLOOD ORDERABLES Final Resu lt Performing Organization Address [facility]/ZIP Co de Phone Number [facility] [address] [place] [address], [place] [phone] * Comprehensive metabolic panel (09/05/2024 4:29 PM EST) Sodium 140 133 - 145 mmol/L LAB CHEMISTRY METHOD 09/05/2024 5:21 PM [facility] Potassium 4.5 3.5 - 5.5 mmol/L LAB CHEMISTRY METHOD 09/05/2024 5:21 PM [facility] Chloride 110 96 - 110 mmol/L LAB CHEMISTRY METHOD 09/05/2024 5:21 PM [facility] CO2 26 21 - 32 mmol/L LAB CHEMISTRY METHOD 09/05/2024 5:21 PM [facility] Anion Gap 4 3 - 11 LAB CHEMISTRY METHOD 09/05/2024 5:21 PM [facility] Glucose 95 70 - 100 mg/dL LAB CHEMISTRY METHOD 09/05/2024 5:21 PM [facility] BUN 16 5 - 25 mg/dL LAB CHEMISTRY METHOD 09/05/2024 5:21 PM [facility] Creatinine 0.98 0.50 - 1.10 mg/dL LAB CHEMISTRY METHOD 09/05/2024 5:21 PM [facility] eGFR 68 >=60 mL/min/1. 73m2 LAB CHEMISTRY METHOD 09/05/2024 5:21 PM [facility] Comment:Calculation based on the??Chronic Kidney Disease Epidemiology Collaboration (CKD-EPI) equation refit??without adjustment for race. BUN/Creatinine Ratio 16.3 LAB CHEMISTRY METHOD 09/05/2024 5:21 PM [facility] Calcium 9.0 8.5 - 10.5 mg/dL LAB CHEMISTRY METHOD 09/05/2024 5:21 PM [facility] AST (SGOT) 22 10 - 42 unit/L LAB CHEMISTRY METHOD 09/05/2024 5:21 PM [facility] ALT (SGPT) 27 10 - 60 unit/L LAB CHEMISTRY METHOD 09/05/2024 5:21 PM [facility] Alkaline Phosphatase 50 42 - 121 unit/L LAB CHEMISTRY METHOD 09/05/2024 5:21 PM [facility] Total Protein 6.8 6.0 - 8.0 g/dL LAB CHEMISTRY METHOD 09/05/2024 5:21 PM [facility] Albumin 3.8 3.2 - 5.0 g/dL LAB CHEMISTRY METHOD 09/05/2024 5:21 PM [facility] Total Bilirubin 0.3 0.0 - 1.4 mg/dL LAB CHEMISTRY METHOD 09/05/2024 5:21 PM [facility] Blood Venous blood specimen / Unknown Venipuncture / Unknown 09/05/2024 4:29 PM EST 09/05/2024 4:51 PM EST us Harris Fay MD LAB BLOOD ORDERABLES Final Resu lt [facility] [address] [place] [address], * [facility] SCREENING DIGITAL (01/23/2022 4:44 PM EDT) Anatomical Region Laterality Modality Mammography 01/23/2022 11:1 5 AM EDT Narrative 01/23/2022 4:44 PM EDT [facility] Diagnostic Imaging Department [address] [place] [address] Patient: ??SUÁREZEDU ?/Age/Sex: 1965 - 56 - F Unit#: ??[id number] ? Location/Status: ??SPDIMAM/REG CLI ? Mnemonic/Ordering Site: ??DIGSC/SPMAM Ordering Physician: ??KATHERIN ALVARADO MD [facility] Screening Digital - 01/23/22 - 1154 History: Bilateral breast cancer screening. Technique: ??Digital mammography. Conventional CC and MLO projections with tomosynthesis MLO views and computer aided detection. Comparison: [facility] 01/27/2021 dating back to 02/10/2016. Findings: ?? Breast tissue consists of fatty and fibroglandular elements (category b density) bilaterally (as calculated by [employer] software). There is no suspicious group of microcalcifications, mass, architectural distortion or suspicious change in breast tissue density. Impression: No evidence of malignancy. BIRADS category 1; negative study, 3341F [id number], [id number] Note: Patient information entered into a reminder system with a target due date for the next mammogram: ??CPT II 7025F Dictating Physician: ??CANDELARIO LOUISE MD Electronically Signed by: ??CANDELARIO LOUISE MD Dic Date/Time: ??01/23/22 1640 Sign date/Time: ??01/23/22 1644 Procedure Note Candelario Louise MD - 08/12/2022 [facility] Diagnostic Imaging Department [address] [place], [place] [id number] Patient: EDU SUÁREZ Octavio /Age/Sex: 1965 - 56 - F Unit#: [id number] Location/Status: [facility] CLI Mnemonic/Ordering Site: [facility] Ordering Physician: KATHERIN ALVARADO MD [facility] Screening Digital - 01/23/22 - 1154 History: Bilateral breast cancer screening. Technique: Digital mammography. Conventional CC and MLO projectionswith tomosynthesis MLO views and computer aided detection. Comparison: [facility] 01/27/2021 dating back to 02/10/2016. Findings: Breast tissue consists of fatty and fibroglandular elements (category b density) bilaterally (as calculated by [employer]). There is no suspicious group of microcalcifications, mass, architectural distortion or suspicious change in breast tissue density. Impression: No evidence of malignancy. BIRADS category 1; negative study, 3341F 72751, 03844 Note: Patient information entered into a reminder system with a target duedate for the next mammogram: CPT II 7025F Dictating Physician: CANDELARIO LOUISE MD Electronically Signed by: CANDELARIO LOUISE MD Dic Date/Time: 01/23/22 1640 Sign date/Time: 01/23/22 4421 us Katherin Alvarado MD IMG BI PROCEDURES Final Resu lt * [facility]ERELL DEXA AXIAL SKELETON (10/30/2019 8:08 AM EDT) Anatomical Region Laterality Modality Mammography 10/30/2019 7:36 AM EDT Narrative 10/30/2019 8:08 AM EDT [facility] Diagnostic Imaging Department [address] [place], [place] [id number] Patient: ??SUÁREZEDU ?/Age/Sex: 1965 - 53 - F Unit#: ??[id number] ? Location/Status: ??SPDIMAM/REG CLI ? Mnemonic/Ordering Site: ??MAMDEXAAX/SPMAM Ordering Physician: ??GERARDO CHO MD [facility] Dexa Axial Skeleton - 10/30/19 - 8144 HISTORY: ??The patient is a 53-year-old postmenopausal [...] probability of hip fracture of 1.2%. Code 88667 Dictating Physician: ??GABRIELLA JIMÉNEZ MD Electronically Signed by: ??GABRIELLA JIMÉNEZ MD Dic Date/Time: ??10/30/19 08 Sign date/Time: ??10/30/19 0808 Procedure Note Gabriella Jiménez - 08/11/2022 [facility] Diagnostic Imaging Department [address] [place] [address] Patient: EDU SUÁREZ Octavio CostaB./Age/Sex: 1965 - 53 - F Unit#: [id number] Location/Status: SPDIMAM/REG CLI [facility]ician: GERARDO CHO MD [facility] Dexa [...] density of the femurs bilaterally is 0.796 gm/or5cckrm is 79% of that of young normals [...] probability of hip fracture of 1.2%. Code 73235 Dictating Physician: GABRIELLA JIMÉNEZ MD Electronically Signed by: GABRIELLA JIMÉNEZ MD Dic Date/Time: 10/30/19805 Sign date/Time: 10/30/19807 Gerardo Cho MD IMG BI PROCEDURES Final Result from Last 3 Months or Most Recently Relevant to Health Maintenance Insurance MEDICAID - [place] Care Teams Guide Tour Relationship Specialty Start Date End Date Johann Trujillo MD [address] [facility] [place] PCP - General Internal Medicine 09/06/24
== END 2024-11-20 10:56 | disposition home or self-care (01) ==
LOC: HO.HGS 10:36
PROVIDERS: PCP Internal Medicine; Visit Provider Surgery
DX: L02.93 Carbuncle, unspecified (principal)
CPT/HCPCS: 99204

== ENCOUNTER → 2024-11-20 10:35 | Outpatient (BNVA) | payer MEDICAID, SELFPAY | PROVIDERS: PCP Internal Medicine; Visit Provider Surgery | DX: L02.838 Carbuncle of other sites (principal) | CPT/HCPCS: 99202 ==

== ENCOUNTER 2024-11-24 08:04 | Outpatient (AMB) | payer MEDICAID, SELFPAY ==
--- OUTSIDE RECORDS SUMMARY | 2024-11-24 08:14 | XMS_ITS | Clinical Summary ---
Author Organization [facility] Address [address] [place] [address] Phone Care Team Providers Care Newspaper Correspondent Name Role Phone Johann Trujillo MD Primary Care Provider [phone] Allergies Active Allergy Reactions Criticality Noted Date Comments Codeine Nausea Only 03/10/2021 Lidocaine-Prilocaine 09/05/2024 Medications No known medications Encounters Date Type Department Care Team Description 09/06/2024 2:09 AM EST - 09/06/2024 6:29 AM EST Emergency [facility] Emergency [address] [place] [address] Harris Fay MD Right lower [...] AND DIFFERENTIAL STAT 09/05/2024 4:[address] [facility] SCREENING DIGITAL Routine 01/23/2022 4:44 PM EDT Encounter for screening mammogram for malignant neoplasm of breast [facility] DEXA AXIAL SKELETON Routine 10/30/2019 8:08 [...] and culture (09/05/2024 4:53 PM EST) Specific [place] Urine 1.025 1.003 - 1.030 LAB URINALYSIS - AUTOMATED METHOD 09/05/2024 5:17 PM [facility] pH, Urine 7.5 5.0 - 8.0 pH LAB URINALYSIS - AUTOMATED METHOD 09/05/2024 5:17 PM [facility] Leukocytes, Urine Negative Negative LAB URINALYSIS - AUTOMATED METHOD 09/05/2024 5:17 PM [facility] Nitrite, Urine Negative Negative LAB URINALYSIS - AUTOMATED METHOD 09/05/2024 5:17 PM [facility] Protein, Urine Trace <=Trace mg/dL LAB URINALYSIS - AUTOMATED METHOD 09/05/2024 5:17 PM [facility] Glucose, Urine Negative Negative mg/dL LAB URINALYSIS - AUTOMATED METHOD 09/05/2024 5:17 PM [facility] Ketones, Urine Negative Negative mg/dL LAB URINALYSIS - AUTOMATED METHOD 09/05/2024 5:17 PM [facility] Urobilinogen, Urine 1.0 0.2 - 1.0 mg/dL LAB URINALYSIS - AUTOMATED METHOD 09/05/2024 5:17 PM [facility] Bilirubin, Urine Negative Negative LAB URINALYSIS - AUTOMATED METHOD 09/05/2024 5:17 PM [facility] Blood, Urine Negative Negative LAB URINALYSIS - AUTOMATED METHOD 09/05/2024 5:17 PM [facility] Urine Urine specimen obtained by clean catch procedure / Unknown Non-blood Collection / Unknown 09/05/2024 4:53 PM EST 09/05/2024 5:12 PM EST Harris Fay MD LAB URINE ORDERABLES Final Resu lt [facility] [address] [place] [address], [place] [phone] * Farrell urine culture tube (09/05/2024 4:53 PM EST) Extra Tube Hold for add-ons. 09/05/2024 7:01 PM EST [facility] Comment:Auto resulted. Urine Urine specimen obtained by clean catch procedure / Unknown Non-blood Collection / Unknown 09/05/2024 4:53 PM EST 09/05/2024 5:12 PM EST Harris Fay MD LAB URINE ORDERABLES Final Resu lt Performing Organization Address [facility]/ZIP Co de Phone Number [facility] [address] [place] [address], [place] [phone] * (ABNORMAL) Manual differential (09/05/2024 4:29 PM EST) Neutrophils % 52.0 % LAB HEMETOLOGY METHOD 09/05/2024 5:26 PM [facility] Lymphocytes % 32.0 % LAB HEMETOLOGY METHOD 09/05/2024 5:26 PM [facility] Reactive Lymphocyte 5.00 % LAB HEMETOLOGY METHOD 09/05/2024 5:26 PM [facility] Monocytes % 8.0 % LAB HEMETOLOGY METHOD 09/05/2024 5:26 PM [facility] Eosinophils % 2.0 % LAB HEMETOLOGY METHOD 09/05/2024 5:26 PM [facility] Basophils % 0.0 % LAB HEMETOLOGY METHOD 09/05/2024 5:26 PM [facility] Neutrophils Absolute Manual 6.24 1.50 - 7.00 K/mcL LAB HEMETOLOGY METHOD 09/05/2024 5:26 PM [facility] Lymphocytes Absolute 3.84 1.00 - 5.00 K/mcL LAB HEMETOLOGY METHOD 09/05/2024 5:26 PM EST [facility] Reactive Lymph Abs Manual 0.60(H) 0.00 - 0.00 lym LAB HEMETOLOGY METHOD 09/05/2024 5:26 PM EST [facility] Monocytes Absolute Manual 0.96 0.20 - 1.00 K/mcL LAB HEMETOLOGY METHOD 09/05/2024 5:26 PM EST [facility] Eosinophils Absolute Manual 0.24 0.00 - 0.50 K/mcL LAB HEMETOLOGY METHOD 09/05/2024 5:26 PM EST [facility] Basophils Absolute Manual 0.00 0.00 - 0.20 K/mcL LAB HEMETOLOGY METHOD 09/05/2024 5:26 PM EST [facility] Rbc Morphology Consistent with indices Consistent with indices, Normal for [place] LAB HEMETOLOGY METHOD 09/05/2024 5:26 PM EST [facility] Platelet Morphology - WAM See Note(A) Normal LAB HEMETOLOGY METHOD 09/05/2024 5:26 PM EST [facility] Comment:PLT: Normal Blood Venous blood specimen / Unknown Venipuncture / Unknown 09/05/2024 4:29 PM EST 09/05/2024 4:51 PM EST us Harris Fay MD LAB BLOOD ORDERABLES Final Resu lt [facility] [address] [place] [address], * (ABNORMAL) CBC auto differential (09/05/2024 4:29 PM EST) WBC 12.0(H) 4.8 - 10.8 K/mcL LAB HEMETOLOGY METHOD 09/05/2024 5:26 PM EST [facility] RBC 4.10 3.80 - 4.80 M/mcL LAB HEMETOLOGY METHOD 09/05/2024 5:26 PM [facility] Hemoglobin 12.4 11.5 - 16.0 g/dL LAB HEMETOLOGY METHOD 09/05/2024 5:26 PM [facility] Hematocrit 39.7 35.0 - 47.0 % LAB HEMETOLOGY METHOD 09/05/2024 5:26 PM [facility] MCV 97.8 79.0 - 98.0 FL LAB HEMETOLOGY METHOD 09/05/2024 5:26 PM [facility] MCH 30.5 27.0 - 32.0 pcg LAB HEMETOLOGY METHOD 09/05/2024 5:26 PM [facility] MCHC 31.2(L) 32.0 - 37.0 g/dL LAB HEMETOLOGY METHOD 09/05/2024 5:26 PM [facility] RDW 13.5 11.0 - 15.0 % LAB HEMETOLOGY METHOD 09/05/2024 5:26 PM [facility] Platelets 374 130 - 400 K/mcL LAB HEMETOLOGY METHOD 09/05/2024 5:26 PM [facility] MPV 9.2 7.0 - 11.0 FL LAB HEMETOLOGY METHOD 09/05/2024 5:26 PM [facility] NRBC 0.0 <1.0 % LAB HEMETOLOGY METHOD 09/05/2024 5:26 PM [facility] NRBC Absolute 0.00 <0.10 K/mcL LAB HEMETOLOGY METHOD 09/05/2024 5:26 PM [facility] Blood Venous blood specimen / Unknown Venipuncture / Unknown 09/05/2024 4:29 PM EST 09/05/2024 4:51 PM EST us Scot A Millay MD LAB BLOOD ORDERABLES Final Resu lt Performing Organization Address [facility]/ZIP Co de Phone Number [facility] [address] [place] [address], [place] [phone] * Lipase (09/05/2024 4:29 PM EST) Lipase 31 13 - 75 unit/L LAB CHEMISTRY METHOD 09/05/2024 5:21 PM [facility] Blood Venous blood specimen / Unknown Venipuncture / Unknown 09/05/2024 4:29 PM EST 09/05/2024 4:51 PM EST Harris Fay MD LAB BLOOD ORDERABLES Final Resu lt Performing Organization Address [facility]/ZIP Co de Phone Number [facility] [address] [place] [address], [place] [phone] * Comprehensive metabolic panel (09/05/2024 4:29 PM EST) Sodium 140 133 - 145 mmol/L LAB CHEMISTRY METHOD 09/05/2024 5:21 PM [facility] Potassium 4.5 3.5 - 5.5 mmol/L LAB CHEMISTRY METHOD 09/05/2024 5:21 PM [facility] Chloride 110 96 - 110 mmol/L LAB CHEMISTRY METHOD 09/05/2024 5:21 PM [facility] CO2 26 21 - 32 mmol/L LAB CHEMISTRY METHOD 09/05/2024 5:21 PM [facility] Anion Gap 4 3 - 11 LAB CHEMISTRY METHOD 09/05/2024 5:21 PM [facility] Glucose 95 70 - 100 mg/dL LAB CHEMISTRY METHOD 09/05/2024 5:21 PM [facility] BUN 16 5 - 25 mg/dL LAB CHEMISTRY METHOD 09/05/2024 5:21 PM [facility] Creatinine 0.98 0.50 - 1.10 mg/dL LAB CHEMISTRY METHOD 09/05/2024 5:21 PM [facility] eGFR 68 >=60 mL/min/1. 73m2 LAB CHEMISTRY METHOD 09/05/2024 5:21 PM [facility] Comment:Calculation based on the??Chronic Kidney Disease Epidemiology Collaboration (CKD-EPI) equation refit??without adjustment for race. BUN/Creatinine Ratio 16.3 LAB CHEMISTRY METHOD 09/05/2024 5:21 PM [facility] Calcium 9.0 8.5 - 10.5 mg/dL LAB CHEMISTRY METHOD 09/05/2024 5:21 PM [facility] AST (SGOT) 22 10 - 42 unit/L LAB CHEMISTRY METHOD 09/05/2024 5:21 PM [facility] ALT (SGPT) 27 10 - 60 unit/L LAB CHEMISTRY METHOD 09/05/2024 5:21 PM [facility] Alkaline Phosphatase 50 42 - 121 unit/L LAB CHEMISTRY METHOD 09/05/2024 5:21 PM [facility] Total Protein 6.8 6.0 - 8.0 g/dL LAB CHEMISTRY METHOD 09/05/2024 5:21 PM [facility] Albumin 3.8 3.2 - 5.0 g/dL LAB CHEMISTRY METHOD 09/05/2024 5:21 PM [facility] Total Bilirubin 0.3 0.0 - 1.4 mg/dL LAB CHEMISTRY METHOD 09/05/2024 5:21 PM [facility] Blood Venous blood specimen / Unknown Venipuncture / Unknown 09/05/2024 4:29 PM EST 09/05/2024 4:51 PM EST us Harris Fay MD LAB BLOOD ORDERABLES Final Resu lt [facility] [address] [place] [address], * [facility] SCREENING DIGITAL (01/23/2022 4:44 PM EDT) Anatomical Region Laterality Modality Mammography 01/23/2022 11:1 5 AM EDT Narrative 01/23/2022 4:44 PM EDT [facility] Diagnostic Imaging Department [address] [place] [id number] Patient: ??SUÁREZEDU ?/Age/Sex: 1965 - 56 - F Unit#: ??[id number] ? Location/Status: ??SPDIMAM/REG CLI ? Mnemonic/Ordering Site: ??DIGSC/SPMAM Ordering Physician: ??KATHERIN ALVARADO MD [facility] Screening Digital - 01/23/22 - 1154 History: Bilateral breast cancer screening. Technique: ??Digital mammography. Conventional CC and MLO projections with tomosynthesis MLO views and computer aided detection. Comparison: [facility] 01/27/2021 dating back to 02/10/2016. Findings: ?? Breast tissue consists of fatty and fibroglandular elements (category b density) bilaterally (as calculated by Schedule C [employer] software). There is no suspicious group of microcalcifications, mass, architectural distortion or suspicious change in breast tissue density. Impression: No evidence of malignancy. BIRADS category 1; negative study, 3341F [id number], [id number] Note: Patient information entered into a reminder system with a target due date for the next mammogram: ??CPT II 7025F Dictating Physician: ??CANDELARIO LOUISE MD Electronically Signed by: ??CANDELARIO LOUISE MD Dic Date/Time: ??01/23/22 1640 Sign date/Time: ??01/23/22 1644 Procedure Note Candelario Louise MD - 08/12/2022 [facility] Diagnostic Imaging Department [address] [place], [place] [id number] Patient: EDU SUÁREZ Octavio /Age/Sex: 1965 - 56 - F Unit#: [id number] Location/Status: [facility] CLI Mnemonic/Ordering Site: [facility] Ordering Physician: KATHERIN ALVARADO MD [facility] Scre[facility] Digital - 01/23/22 - 1154 History: Bilateral breast cancer screening. Technique: Digital mammography. Conventional CC and MLO projectionswith tomosynthesis MLO views and computer aided detection. Comparison: [facility] 01/27/2021 dating back to 02/10/2016. Findings: Breast tissue consists of fatty and fibroglandular elements (category b density) bilaterally (as calculated by [employer]). There is no suspicious group of microcalcifications, mass, architectural distortion or suspicious change in breast tissue density. Impression: No evidence of malignancy. BIRADS category 1; negative study, 3341F [id number], 03082 Note: Patient information entered into a reminder system with a target duedate for the next mammogram: CPT II 7025F Dictating Physician: CANDELARIO LOUISE MD Electronically Signed by: CANDELARIO LOUISE MD Dic Date/Time: 01/23/22 1640 Sign date/Time: 01/23/22 2800 us Katherin Alvarado MD IMG BI PROCEDURES Final Resu lt * [facility] DEXA AXIAL SKELETON (10/30/2019 8:08 AM EDT) Anatomical Region Laterality Modality Mammography 10/30/2019 7:36 AM EDT Narrative 10/30/2019 8:08 AM EDT [facility] Diagnostic Imaging Department [address] [place], [place] [id number] Patient: ??SUÁREZEDU ?/Age/Sex: 1965 - 53 - F Unit#: ??[id number] ? Location/Status: ??SPDIMAM/REG CLI ? Mnemonic/Ordering Site: ??MAMDEXAAX/SPMAM Ordering Physician: ??GERARDO CHO MD [facility] Dexa Axial Skeleton - 10/30/19 - 3875 HISTORY: ??The patient is a 53-year-old postmenopausal [...] probability of hip fracture of 1.2%. Code 68933 Dictating Physician: ??GABRIELLA JIMÉNEZ MD Electronically Signed by: ??GABRIELLA JIMÉNEZ MD Dic Date/Time: ??10/30/19 08 Sign date/Time: ??10/30/19 0808 Procedure Note Gabriella Jiménez - 08/11/2022 [facility] Diagnostic Imaging Department [address] [place] [address] Patient: DEU SUÁREZ Octavio CostaB./Age/Sex: 1965 - 53 - F Unit#: [id number] Location/Status: SPDIMAM/REG CLI [facility] Ordering Physician: GERARDO CHO MD [facility] [...] density of the femurs bilaterally is 0.796 gm/[id number] is 79% of that of young normals [...] probability of hip fracture of 1.2%. Code 76951 Dictating Physician: GABRIELLA JIMÉNEZ MD Electronically Signed by: GABRIELLA JIMÉNEZ MD Dic Date/Time: 10/30/19805 Sign date/Time: 10/30/19807 Gerardo Cho MD IMG BI PROCEDURES Final Result from Last 3 Months or Most Recently Relevant to Health Maintenance Insurance MEDICAID - [place] Care Teams Newspaper Correspondent Relationship Specialty Start Date End Date Johann Trujillo MD [address] [facility] [place] PCP - General Internal Medicine 09/06/24
[2024-11-24 08:16] VITALS: BP 140/88; PULSE 90; RESP 16; O2SAT 98; BMI 30.6
--- NOTE | 2024-11-24 08:16 | A.OFFVIS_ITS ---
Vital Signs 11/24/24 08:16 Height 5 ft 3 in Weight 173 lb BMI 30.6 BP 140/88 H Blood Pressure Location Lt brachial Position Sitting Respiration 16 Pulse 90 Pulse Source Pulse Oximeter Pulse Oximetry (%) 98 Oxygen Delivery Method Room Air Intake Visit Reasons: Carbuncle Intake Note: I'm here for a follow up of boils that Dr. Acosta saw me for on Wednesday. He put me on antibiotics to shrink them instead of thad them. I would rather thad them but he said no Solar Site Assessment Specialist Required: No Allergies codeine Adverse Reaction (Intermediate, Verified 11/24/24 08:24) Vomiting silver [From [employer] Mesh] Adverse Reaction (Verified 11/24/24 08:24) red itchy rash Medication List - Last Reconciled 11/24/24 by Halle Moffett RN acetaminophen ER 650 mg PO QID alendronate 70 mg PO QWEEK bupropion HCl SR 150 mg PO BID calcium carbonate 600 mg PO DAILY cephalexin 500 mg PO TID cholecalciferol (vitamin D3) 25 mcg PO DAILY diazepam 2 mg PO TID donepezil 10 mg PO BEDTIME duloxetine 30 mg PO DAILY gabapentin 600 mg PO BID magnesium 500 mg PO DAILY metoprolol succinate ER 50 mg PO DAILY mirabegron ER (Myrbetriq) 50 mg PO DAILY omeprazole 20 mg PO BID pramipexole 0.375 mg PO BEDTIME topiramate mg PO Do you need a note to return to daycare/school/sports/work: No HPI Comments Details: 58-year-old female returning for re-evaluation of hidradenitis of the left g roin. She was evaluated by Dr. Acosta earlier in the week who felt no fluctuance on examination therefore placed her on antibiotics. Today she reports it feels improved with less redness and swelling but feels she should have had an I and D. She denies any bleeding or discharge from the site. She continues to have pelvic pain as frustrated and is frustrated because of this. She became belligerent during our conversation because nobody can take care of her pain. [facility] Medical History Hx of pilonidal cyst Degenerative disc disease, cervical Tinnitus of left ear Adenomyosis of uterus Bilateral breast cysts Sleep apnea Short-term memory loss Rheumatoid arthritis Osteoporosis SI (sacroiliac) joint dysfunction Hidradenitis suppurativa Occipital neuralgia Fibromyalgia HTN (hypertension) Lumbar disc disease Depression Overactive bladder Restless leg syndrome Peripheral neuropathy Surgical History History of gynecologic surgery History of surgery Hx of shoulder surgery H/O laminectomy History of carpal tunnel release of both wrists Hx of elbow surgery Hx of hysterectomy Hx of left knee surgery Hx of arthroscopy of left knee Hx of abdominal surgery H/O LEEP History of intestinal surgery Hx of appendectomy Social History Patient Tobacco Use Status: Former Tobacco user Review of Systems Const Unobtainable due to mental condition Physical Exam Vital Signs: Last Vital Signs Pulse 90 11/24/24 08:16 Resp 16 11/24/24 08:16 BP 140/88 H 11/24/24 08:16 Pulse Ox 98 11/24/24 08:16 Oxygen Delivery Method Room Air 11/24/24 08:16 BMI result Body Mass Index 30.6 Skin Other: Exam limited to left groin: Small area of light redness noted in the crease of the left leg with no phlegmon or abscess apparent. He has no tenderness to palpation Assessment & Plan Assessment & Plan (1) Hidradenitis: Code(s): L73.2 - Hidradenitis suppurativa Category: Medical Plan 58-year-old female patient with a apparent hidradenitis of the left groin. Wounds are much improved after antibiotics. No indication for incision and drainage at this time. No follow-up required. Coding Level of Care Code Est Pt Level 3 (99712) Diagnoses Hidradenitis L73.2
== END 2024-11-24 08:46 | disposition home or self-care (01) ==
LOC: HO.HGS 08:04
PROVIDERS: PCP Internal Medicine; Visit Provider Surgery
DX: L73.2 Hidradenitis suppurativa (principal)
CPT/HCPCS: 99213

== ENCOUNTER → 2024-11-24 08:04 | Outpatient (BNVA) | payer MEDICAID, SELFPAY | PROVIDERS: PCP Internal Medicine; Visit Provider Surgery | DX: L73.2 Hidradenitis suppurativa (principal) | CPT/HCPCS: 99212 ==

== ENCOUNTER 2024-11-27 12:55 | Outpatient (AMB) | payer MEDICAID, SELFPAY ==
[2024-11-27 13:01] VITALS: BP 139/63; PULSE 70; RESP 16; O2SAT 96; BMI 30.3
--- NOTE | 2024-11-27 13:01 | MHC.OFFVIS ---
Vital Signs 11/27/24 13:01 Height 5 ft 3 in Weight 171 lb BMI 30.3 BP 139/63 Blood Pressure Location Lt brachial Position Sitting Respiration 16 Pulse 70 Pulse Source Pulse Oximeter Pulse Oximetry (%) 96 Oxygen Delivery Method Room Air Intake Visit Reasons: Back Pain Chief Business Development Officer Required: No Allergies codeine Adverse Reaction (Intermediate, Verified 12/08/24 11:16) Vomiting silver [From Teg[employer]erm [employer] Mesh] Adverse Reaction (Verified 12/08/24 11:16) red itchy rash Medication List - Last Reconciled 11/27/24 by Natalie Frazier LPN acetaminophen ER 650 mg PO QID alendronate 70 mg PO QWEEK bupropion HCl SR 150 mg PO BID calcium carbonate 600 mg PO DAILY cephalexin 500 mg PO TID cholecalciferol (vitamin D3) 25 mcg PO DAILY diazepam 2 mg PO TID donepezil 10 mg PO BEDTIME duloxetine 30 mg PO DAILY gabapentin 600 mg PO BID magnesium 500 mg PO DAILY metoprolol succinate ER 50 mg PO DAILY mirabegron ER (Myrbetriq) 50 mg PO DAILY omeprazole 20 mg PO BID pramipexole 0.375 mg PO BEDTIME topiramate mg PO HPI HPI Back Pain: Details: History of Present Illness The patient is a 58-year-old female presenting with low back pain that has been chronic and previously managed through spinal surgeries and a spinal cord stimulator implant. There has been a recent exacerbation of pain on the right side, with associated radiation to the buttock, following physical exertion. Additionally, the patient reports chronic severe abdominal pain primarily in the right lower quadrant with a history of previous abdominal surgeries for adhesions. Recent medical imaging did not reveal abnormalities warranting additional interventions, and there is a consideration of performing a tap block for suspected abdominal wall pain. Pain Description - Onset: Worsening after recent physical exertion - Location: Right low back radiating to the buttock - Abdominal pain located in the right lower quadrant - Quality: Low back pain not effectively controlled by the stimulator - Abdominal pain described as sharp and tearing upon palpation - Aggravating Factors: Physical exertion and poor weather conditions - Relieving Factors: None effectively mentioned - Interference: Limits physical activities and daily functioning Physical Exam - TTP in RLQ Results - Imaging planned: X-ray to evaluate the position of spinal cord stimulator lead Pain Management - Affect: Chronic pain impacts daily mood and quality of life - Analgesia: Current pain management inadequate; spinal cord stimulator under reassessment - Adverse Effects: None reported - Activities of Daily Living: Pain significantly interferes with daily activities and physical abilities - Aberrant Drug Related Behaviors: None reported PFSH Medical History Hx of pilonidal cyst Degenerative disc disease, cervical Tinnitus of left ear Adenomyosis of uterus Bilateral breast cysts Sleep apnea Short-term memory loss Rheumatoid arthritis Osteoporosis SI (sacroiliac) joint dysfunction Hidradenitis suppurativa Occipital neuralgia Fibromyalgia HTN (hypertension) Lumbar disc disease Depression Overactive bladder Restless leg syndrome Peripheral neuropathy Surgical History History of gynecologic surgery History of surgery Hx of shoulder surgery H/O laminectomy History of carpal tunnel release of both wrists Hx of elbow surgery Hx of hysterectomy Hx of left knee surgery Hx of arthroscopy of left knee Hx of abdominal surgery H/O LEEP History of intestinal surgery Hx of appendectomy Social History Patient Tobacco Use Status: Former Tobacco user Physical Exam Vital Signs: Last Vital Signs Pulse 70 11/27/24 13:01 Resp 16 11/27/24 13:01 BP 139/63 11/27/24 13:01 Pulse Ox 96 11/27/24 13:01 Oxygen Delivery Method Room Air 11/27/24 13:01 BMI result Body Mass Index 30.3 Assessment & Plan Assessment & Plan (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 In response to chronic abdominal pain, a TAP block will be scheduled. These steps aim to address both the exacerbation of low back pain and the longstanding abdominal wall pain the patient experiences due to the prior history of abdominal surgeries and adhesions. Patient was informed and verbally consented to the use of an ambient scribe for clinic note documentation during this visit. Discussion Notes During our discussion, I explained the rationale for performing an X-ray to assess the spinal cord stimulator lead's position and potential need for surgical revision if displacement is confirmed. We discussed the option for a TAP block to relieve chronic localized abdominal wall pain, outlining the procedure, associated risks, and potential benefits. The patient agreed to proceed with these evaluations and interventions, understanding the need for follow-up and ongoing management. Patient Instructions - Proceed to radiology on the second floor for an X-ray of the back - Follow up for a right TAP block procedure as scheduled - Monitor symptoms and seek further care if there is significant worsening of pain or new symptoms develop Orders: Orders XR sacrum coccyx min 2V 11/27/24 G58.8 - Other specified mononeuropathies Coding Level of Care Code Est Pt Level 4 (01911) Diagnoses Cluneal neuropathy G58.8
--- OUTSIDE RECORDS SUMMARY | 2024-11-27 15:17 | XMS_ITS | Clinical Summary ---
Author Organization [facility] Address [address] [place] [address] Phone Care Team Providers Care Folder Stitcher Operator Name Role Phone Johann Trujillo MD Primary Care Provider [phone] Allergies Active Allergy Reactions Criticality Noted Date Comments Codeine Nausea Only 03/10/2021 Lidocaine-Prilocaine 09/05/2024 Medications No known medications Encounters Date Type Department Care Team Description 09/06/2024 2:09 AM EST - 09/06/2024 6:29 AM EST Emergency [facility] Emergency [address] [place] [address] Harris Fay MD Right lower [...] age to complete this topic Meningococcal B Vaccine Aged Out No l onger eligible based on patient's age to complete [...] AND DIFFERENTIAL STAT 09/05/2024 4:29 PM EST [facility] SCREENING DIGITAL Routine 01/23/2022 4:44 PM EDT Encounter for screening mammogram for malignant neoplasm of breast [facility] DEXA AXIAL SKELETON Routine 10/30/2019 8:08 [...] M.D. on 09/06/2024 05:19:25 Harris Fay MD [facility] [place] PROCEDURES Final Result * Urinalysis with reflex microscopic and culture (09/05/2024 4:53 PM EST) Specific [place] Urine 1.025 1.003 - 1.030 LAB URINALYSIS - AUTOMATED METHOD 09/05/2024 5:17 PM [facility] pH, Urine 7.5 5.0 - 8.0 pH LAB URINALYSIS - AUTOMATED METHOD 09/05/2024 5:17 PM [facility] Leukocytes, Urine Negative Negative LAB URINALYSIS - AUTOMATED METHOD 09/05/2024 5:17 PM [facility] Nitrite, Urine Negative Negative LAB URINALYSIS - AUTOMATED METHOD 09/05/2024 5:17 PM [facility] Protein, Urine Trace <=Trace mg/dL LAB URINALYSIS - AUTOMATED METHOD 09/05/2024 5:17 PM [facility] Glucose, Urine Negative Negative mg/dL LAB URINALYSIS - AUTOMATED METHOD 09/05/2024 5:17 PM [facility] Ketones, Urine Negative Negative mg/dL LAB URINALYSIS - AUTOMATED METHOD 09/05/2024 5:17 PM [facility] Urobilinogen, Urine 1.0 0.2 - 1.0 mg/dL LAB URINALYSIS - AUTOMATED METHOD 09/05/2024 5:17 PM [facility] Bilirubin, Urine Negative Negative LAB URINALYSIS - AUTOMATED METHOD 09/05/2024 5:17 PM [facility] Blood, Urine Negative Negative LAB URINALYSIS - AUTOMATED METHOD 09/05/2024 5:17 PM [facility] Urine Urine specimen obtained by clean catch procedure / Unknown Non-blood Collection / Unknown 09/05/2024 4:53 PM EST 09/05/2024 5:12 PM EST us Harris Fay MD LAB URINE ORDERABLES Final Resu lt [facility] [address] [place] [address], [place] [phone] * Farrell urine culture tube (09/05/2024 4:53 PM EST) Extra Tube Hold for add-ons. 09/05/2024 7:01 PM EST [facility] Comment:Auto resulted. Urine Urine specimen obtained by clean catch procedure / Unknown Non-blood Collection / Unknown 09/05/2024 4:53 PM EST 09/05/2024 5:12 PM EST Harris Fay MD LAB URINE ORDERABLES Final Resu lt Performing Organization Address [facility]/ZIP Co de Phone Number [facility] [address] [place] [address], [place] [phone] * (ABNORMAL) Manual differential (09/05/2024 4:29 PM EST) Neutrophils % 52.0 % LAB HEMETOLOGY METHOD 09/05/2024 5:26 PM [facility] Lymphocytes % 32.0 % LAB HEMETOLOGY METHOD 09/05/2024 5:26 PM [facility] Reactive Lymphocyte 5.00 % LAB HEMETOLOGY METHOD 09/05/2024 5:26 PM [facility] Monocytes % 8.0 % LAB HEMETOLOGY METHOD 09/05/2024 5:26 PM [facility] Eosinophils % 2.0 % LAB HEMETOLOGY METHOD 09/05/2024 5:26 PM [facility] Basophils % 0.0 % LAB HEMETOLOGY METHOD 09/05/2024 5:26 PM [facility] Neutrophils Absolute Manual 6.24 1.50 - 7.00 K/mcL LAB HEMETOLOGY METHOD 09/05/2024 5:26 PM [facility] Lymphocytes Absolute 3.84 1.00 - 5.00 K/mcL LAB HEMETOLOGY METHOD 09/05/2024 5:26 PM EST [facility] Reactive Lymph Abs Manual 0.60(H) 0.00 - 0.00 lym LAB HEMETOLOGY METHOD 09/05/2024 5:26 PM EST [facility] Monocytes Absolute Manual 0.96 0.20 - 1.00 K/mcL LAB HEMETOLOGY METHOD 09/05/2024 5:26 PM EST [facility] Eosinophils Absolute Manual 0.24 0.00 - 0.50 K/mcL LAB HEMETOLOGY METHOD 09/05/2024 5:26 PM EST [facility] Basophils Absolute Manual 0.00 0.00 - 0.20 K/mcL LAB HEMETOLOGY METHOD 09/05/2024 5:26 PM [facility] Rbc Morphology Consistent with indices Consistent with indices, Normal for LAB HEMETOLOGY METHOD 09/05/2024 5:26 PM EST [facility] Platelet Morphology - WAM See Note(A) Normal LAB HEMETOLOGY METHOD 09/05/2024 5:26 PM EST [facility] Comment:PLT: Normal Blood Venous blood specimen / Unknown Venipuncture / Unknown 09/05/2024 4:29 PM EST 09/05/2024 4:51 PM EST us Harris Fay MD LAB BLOOD ORDERABLES Final Resu lt [facility] [address] [place] [address], * (ABNORMAL) CBC auto differential (09/05/2024 4:29 PM EST) WBC 12.0(H) 4.8 - 10.8 K/mcL LAB HEMETOLOGY METHOD 09/05/2024 5:26 PM EST [facility] RBC 4.10 3.80 - 4.80 M/mcL LAB HEMETOLOGY METHOD 09/05/2024 5:26 PM [facility] Hemoglobin 12.4 11.5 - 16.0 g/dL LAB HEMETOLOGY METHOD 09/05/2024 5:26 PM [facility] Hematocrit 39.7 35.0 - 47.0 % LAB HEMETOLOGY METHOD 09/05/2024 5:26 PM [facility] MCV 97.8 79.0 - 98.0 FL LAB HEMETOLOGY METHOD 09/05/2024 5:26 PM [facility] MCH 30.5 27.0 - 32.0 pcg LAB HEMETOLOGY METHOD 09/05/2024 5:26 PM [facility] MCHC 31.2(L) 32.0 - 37.0 g/dL LAB HEMETOLOGY METHOD 09/05/2024 5:26 PM [facility] RDW 13.5 11.0 - 15.0 % LAB HEMETOLOGY METHOD 09/05/2024 5:26 PM [facility] Platelets 374 130 - 400 K/mcL LAB HEMETOLOGY METHOD 09/05/2024 5:26 PM [facility] MPV 9.2 7.0 - 11.0 FL LAB HEMETOLOGY METHOD 09/05/2024 5:26 PM [facility] NRBC 0.0 <1.0 % LAB HEMETOLOGY METHOD 09/05/2024 5:26 PM [facility] NRBC Absolute 0.00 <0.10 K/mcL LAB HEMETOLOGY METHOD 09/05/2024 5:26 PM [facility] Blood Venous blood specimen / Unknown Venipuncture / Unknown 09/05/2024 4:29 PM EST 09/05/2024 4:51 PM EST us Harris Fay MD LAB BLOOD ORDERABLES Final Resu lt Performing Organization Address [facility]/ZIP Co de Phone Number [facility] [address] [place] [address], [place] [phone] * Lipase (09/05/2024 4:29 PM EST) Lipase 31 13 - 75 unit/L LAB CHEMISTRY METHOD 09/05/2024 5:21 PM [facility] Blood Venous blood specimen / Unknown Venipuncture / Unknown 09/05/2024 4:29 PM EST 09/05/2024 4:51 PM EST us Harris Fay MD LAB BLOOD ORDERABLES Final Resu lt Performing Organization Address [facility]/ZIP Co de Phone Number [facility] [address] [place] [address], [place] [phone] * Comprehensive metabolic panel (09/05/2024 4:29 PM EST) Sodium 140 133 - 145 mmol/L LAB CHEMISTRY METHOD 09/05/2024 5:21 PM [facility] Potassium 4.5 3.5 - 5.5 mmol/L LAB CHEMISTRY METHOD 09/05/2024 5:21 PM [facility] Chloride 110 96 - 110 mmol/L LAB CHEMISTRY METHOD 09/05/2024 5:21 PM [facility] CO2 26 21 - 32 mmol/L LAB CHEMISTRY METHOD 09/05/2024 5:21 PM [facility] Anion Gap 4 3 - 11 LAB CHEMISTRY METHOD 09/05/2024 5:21 PM [facility] Glucose 95 70 - 100 mg/dL LAB CHEMISTRY METHOD 09/05/2024 5:21 PM [facility] BUN 16 5 - 25 mg/dL LAB CHEMISTRY METHOD 09/05/2024 5:21 PM [facility] Creatinine 0.98 0.50 - 1.10 mg/dL LAB CHEMISTRY METHOD 09/05/2024 5:21 PM [facility] eGFR 68 >=60 mL/min/1. 73m2 LAB CHEMISTRY METHOD 09/05/2024 5:21 PM [facility] Comment:Calculation based on the??Chronic Kidney Disease Epidemiology Collaboration (CKD-EPI) equation refit??without adjustment for race. BUN/Creatinine Ratio 16.3 LAB CHEMISTRY METHOD 09/05/2024 5:21 PM [facility] Calcium 9.0 8.5 - 10.5 mg/dL LAB CHEMISTRY METHOD 09/05/2024 5:21 PM [facility] AST (SGOT) 22 10 - 42 unit/L LAB CHEMISTRY METHOD 09/05/2024 5:21 PM [facility] ALT (SGPT) 27 10 - 60 unit/L LAB CHEMISTRY METHOD 09/05/2024 5:21 PM [facility] Alkaline Phosphatase 50 42 - 121 unit/L LAB CHEMISTRY METHOD 09/05/2024 5:21 PM [facility] Total Protein 6.8 6.0 - 8.0 g/dL LAB CHEMISTRY METHOD 09/05/2024 5:21 PM [facility] Albumin 3.8 3.2 - 5.0 g/dL LAB CHEMISTRY METHOD 09/05/2024 5:21 PM [facility] Total Bilirubin 0.3 0.0 - 1.4 mg/dL LAB CHEMISTRY METHOD 09/05/2024 5:21 PM [facility] Blood Venous blood specimen / Unknown Venipuncture / Unknown 09/05/2024 4:29 PM EST 09/05/2024 4:51 PM EST us Harris Fay MD LAB BLOOD ORDERABLES Final Resu lt [facility] [address] [place] [address], * TERELL SCREENING DIGITAL (01/23/2022 4:44 PM EDT) Anatomical Region Laterality Modality Mammography 01/23/2022 11:1 5 AM EDT Narrative 01/23/2022 4:44 PM EDT [facility] Diagnostic Imaging Department [address] [place] [address] Patient: ??JOSE ARMANDOFELICIAVALERIY Hughes ?/Age/Sex: 1965 - 56 - F Unit#: ??[id number] ? Location/Status: ??SPDIMAM/REG CLI ? Mnemonic/Ordering Site: ??DIGSC/SPMAM Ordering Physician: ??KATHERIN ALVARADO MD Terell Screening Digital - 01/23/22 - 1154 History: Bilateral breast cancer screening. Technique: ??Digital mammography. Conventional CC and MLO projections with tomosynthesis MLO views and computer aided detection. Comparison: [facility] 01/27/2021 dating back to 02/10/2016. Findings: ?? Breast tissue consists of fatty and fibroglandular elements (category b density) bilaterally (as calculated by CT [employer] software). There is no suspicious group of microcalcifications, mass, architectural distortion or suspicious change in breast tissue density. Impression: No evidence of malignancy. BIRADS category 1; negative study, 3341F [id number], [id number] Note: Patient information entered into a reminder system with a target due date for the next mammogram: ??CPT II 7025F Dictating Physician: ??CANDELARIO LOUISE MD Electronically Signed by: ??CANDELARIO LOUISE MD Dic Date/Time: ??01/23/22 1640 Sign date/Time: ??01/23/22 1644 Procedure Note Candelario Louise MD - 08/12/2022 [facility] Diagnostic Imaging Department [address] [place] [address] Patient: EDU SUÁREZ Octavio /Age/Sex: 1965 - 56 - F Unit#: [id number] [facility]Ordering Site: [facility] Ordering Physician: KATHERIN ALVARADO MD Terell Screening Digital - 01/23/22 - 1154 History: Bilateral breast cancer screening. Technique: Digital mammography. Conventional CC and MLO projectionswith tomosynthesis MLO views and computer aided detection. Comparison: [facility] 01/27/2021 dating back to 02/10/2016. Findings: Breast tissue consists of fatty and fibroglandular elements (category b density) bilaterally (as calculated by [employer]). There is no suspicious group of microcalcifications, mass, architectural distortion or suspicious change in breast tissue density. Impression: No evidence of malignancy. BIRADS category 1; negative study, 3341F 91726, 43819 Note: Patient information entered into a reminder system with a target duedate for the next mammogram: CPT II 7025F Dictating Physician: CANDELARIO LOUISE MD Electronically Signed by: CANDELARIO LOUISE MD Dic Date/Time: 01/23/22 1640 Sign date/Time: 01/23/22 4439 us Katherin Alvarado MD IMG BI PROCEDURES Final Resu lt * TERELL DEXA AXIAL SKELETON (10/30/2019 8:08 AM EDT) Anatomical Region Laterality Modality Mammography 10/30/2019 7:36 AM EDT Narrative 10/30/2019 8:08 AM EDT [facility] Diagnostic Imaging Department [address] [place], [place] [address] Patient: ??EDU SUÁREZ ?/Age/Sex: 1965 - 53 - F Unit#: ??[id number] ? Location/Status: ??SPDIMAM/REG CLI ? Mnemonic/Ordering Site: ??MAMDEXAAX/SPMAM Ordering Physician: ??GERARDO CHO MD [facility] Dexa Axial Skeleton - 10/30/19 - 8554 HISTORY: ??The patient is a 53-year-old postmenopausal [...] probability of hip fracture of 1.2%. Code 78930 Dictating Physician: ??GABRIELLA JIMÉNEZ MD Electronically Signed by: ??GABRIELLA JIMÉNEZ MD Dic Date/Time: ??10/30/19 08 Sign date/Time: ??10/30/19 0808 Procedure Note Gabriella Jiménez - 08/11/2022 [facility] Diagnostic Imaging Department [address] [place] [address] Patient: EDU SUÁREZ Octavio Britt/Age/Sex: 1965 - 53 - F Unit#: [id number] Location/Status: SPDIMAM/REG CLI [facility] Ordering Physician: GERARDO CHO MD Terell [...] density of the femurs bilaterally is 0.796 gm/mr8jirob is 79% of that of young normals [...] probability of hip fracture of 1.2%. Code 95848 Dictating Physician: GABRIELLA JIMÉNEZ MD Electronically Signed by: GABRIELLA JIMÉNEZ MD Dic Date/Time: 10/30/19805 Sign date/Time: 10/30/19807 Gerardo Cho MD IMG BI PROCEDURES Final Result from Last 3 Months or Most Recently Relevant to Health Maintenance Insurance MEDICAID - [place] Care Teams Folder Stitcher Operator Relationship Specialty Start Date End Date Johann Trujillo MD [address] [facility] [place] PCP - General Internal Medicine 09/06/24
== END 2024-11-27 13:24 | disposition home or self-care (01) ==
LOC: HO.PMC 12:56
PROVIDERS: PCP Internal Medicine; Visit Provider Internal Medicine
DX: G58.8 Other specified mononeuropathies (principal)
CPT/HCPCS: 99214

== ENCOUNTER 2024-11-27 12:55 | Outpatient (REF) | payer MEDICAID, SELFPAY ==
--- NOTE | ~2024-11-27 | XR_ITS ---
EXAMINATION: XR SACRUM AND COCCYX CLINICAL INFORMATION: G58.8 - Other specified mononeuropathies COMPARISON: None. MRI pelvis 335. TECHNIQUE: 3 views of the sacrum and coccyx were obtained. FINDINGS: There are bilateral sacral nerve stimulator leads in place. These appear to terminate lateral and posterior to the sacral ala. There are surgical clips in the right mid pelvis. The sacrum appears intact. SI joints demonstrate mild degenerative arthritis. Coccyx has an unremarkable appearance. Mild degenerative arthritis of the lower lumbar spine. Soft tissues otherwise normal. XR/XR sacrum coccyx min 2V IMPRESSION: 1. Sacral stimulator leads in place as discussed. 2. Minimal degenerative arthritis of the SI joints. Electronically signed by: Kin Jaime MD 11/28/2024 11:50 AM EDT
--- OUTSIDE RECORDS SUMMARY | 2024-11-27 16:01 | XMS_ITS | Clinical Summary ---
Author Organization [facility] Address [address] [place] [address] Phone Care Team Providers Care Dixonac Operator Name Role Phone Johann Trujillo MD Primary Care Provider [phone] Allergies Active Allergy Reactions Criticality Noted Date Comments Codeine Nausea Only 03/10/2021 Lidocaine-Prilocaine 09/05/2024 Medications No known medications Encounters Date Type Department Care Team Description 09/06/2024 2:09 AM EST - 09/06/2024 6:29 AM EST Emergency [facility] Emergency [address] [place] [address] Harris Fay MD Right lower [...] AND DIFFERENTIAL STAT 09/05/2024 4:29 PM EST [facility] SCREENING DIGITAL Routine 01/23/2022 4:44 PM EDT Encounter for screening mammogram for malignant neoplasm of breast [facility] DEXA AXIAL SKELETON Routine 10/30/2019 [...] M.D. on 09/06/2024 05:19:25 Harris Fay MD [facility] PROCED[place] Final Result * Urinalysis with reflex microscopic and culture (09/05/2024 4:53 PM EST) Specific [place] Urine 1.025 1.003 - 1.030 LAB URINALYSIS [...] Resu lt [facility] [address] [place] [address], [place] [phone] * Farrell urine culture tube (09/05/2024 4:53 PM EST) Extra Tube Hold for add-ons. 09/05/2024 7:01 PM EST [facility] Comment:Auto resulted. Urine Urine specimen obtained by clean catch procedure / Unknown Non-blood Collection / Unknown 09/05/2024 4:53 PM EST 09/05/2024 5:12 PM EST Harris Fay MD LAB URINE ORDERABLES Final Resu lt Performing Organization Address [facility]/ZIP Co de Phone Number [facility] [address] [place] [address], [place] [phone] * (ABNORMAL) Manual differential (09/05/2024 4:29 PM [...] 09/05/2024 5:26 PM [facility] Rbc Morphology Consistent with indices [...] Resu lt [facility] [address] [place] [address], * (ABNORMAL) CBC auto differential (09/05/2024 4:29 [...] ORDERABLES Final Resu lt Performing Organization Address [facility]/ZIP Co de Phone Number [facility] [address] [place] [address], [place] [phone] * Lipase (09/05/2024 4:29 PM EST) Lipase 31 13 - 75 unit/L LAB CHEMISTRY METHOD 09/05/2024 5:21 PM [facility] Blood Venous blood specimen / Unknown Venipuncture / Unknown 09/05/2024 4:29 PM EST 09/05/2024 4:51 PM EST us Harris Fay MD LAB BLOOD ORDERABLES Final Resu lt Performing Organization Address [facility]/ZIP Co de Phone Number [facility] [address] [place] [address], [place] [phone] * Comprehensive metabolic panel (09/05/2024 4:29 PM [...] Resu lt [facility] [address] [place] [address], * TERELL SCREENING DIGITAL (01/23/2022 4:44 PM EDT) Anatomical Region Laterality Modality Mammography 01/23/2022 11:1 5 AM EDT Narrative 01/23/2022 4:44 PM EDT [facility] Diagnostic Imaging Department [address] [place] [address] Patient: ??JOSE ARMANDOFELICIAVALERIY Hughes ?/Age/Sex: 1965 - 56 - F Unit#: ??[id number] ? Location/Status: ??SPDIMAM/REG CLI ? Mnemonic/Ordering Site: ??DIGSC/SPMAM Ordering Physician: ??KATHERIN ALVARADO MD Terell Screening Digital - 01/23/22 - 1154 History: Bilateral breast cancer screening. Technique: ??Digital mammography. Conventional CC and MLO projections with tomosynthesis MLO views and computer aided detection. Comparison: [facility] 01/27/2021 dating back to 02/10/2016. Findings: ?? Breast tissue consists of fatty and fibroglandular elements (category b density) bilaterally (as calculated by [employer] software). There is no suspicious group of microcalcifications, mass, architectural distortion or suspicious change in breast tissue density. Impression: No evidence of malignancy. BIRADS category 1; negative study, 3341F [id number], 72051 Note: Patient information entered into a reminder system with a target due date for the next mammogram: ??CPT II 7025F Dictating Physician: ??CANDELARIO LOUISE MD Electronically Signed by: ??CANDELARIO LOUISE MD Dic Date/Time: ??01/23/22 1640 Sign date/Time: ??01/23/22 1644 Procedure Note Candelario Louise MD - 08/12/2022 [facility] Diagnostic Imaging Department [address] [place] [address] Patient: EDU SUÁREZ Octavio /Age/Sex: 1965 - 56 - F Unit#: [id number] [facility]ing Site[facility] Ordering Physician: KATHERIN ALVARADO MD Terell Screening Digital - 01/23/22 - 1154 History: Bilateral breast cancer screening. Technique: Digital mammography. Conventional CC and MLO projectionswith tomosynthesis MLO views and computer aided detection. Comparison: [facility] 01/27/2021 dating back to 02/10/2016. Findings: Breast tissue consists of fatty and fibroglandular elements (category b density) bilaterally (as calculated by [employer]). There is no suspicious group of microcalcifications, mass, architectural distortion or suspicious change in breast tissue density. Impression: No evidence of malignancy. BIRADS category 1; negative study, 3341F 04612, [address]9660 Note: Patient information entered into a reminder system with a target duedate for the next mammogram: CPT II 7025F Dictating Physician: CANDELARIO LOIUSE MD Electronically Signed by: CANDELARIO LOUISE MD Dic Date/Time: 01/23/22 1640 Sign date/Time: 01/23/22 1302 us Katherin Alvarado MD IMG BI PROCEDURES Final Resu lt * TERELL DEXA AXIAL SKELETON (10/30/2019 8:08 AM EDT) Anatomical Region Laterality Modality Mammography 10/30/2019 7:36 AM EDT Narrative 10/30/2019 8:08 AM EDT [facility] Diagnostic Imaging Department [address] [place], [place] [address] Patient: ??EDU SUÁREZ ?/Age/Sex: 1965 - 53 - F Unit#: ??[id number] ? Location/Status: ??SPDIMAM/REG CLI ? Mnemonic/Ordering Site: ??MAMDEXAAX/SPMAM Ordering Physician: ??GERARDO CHO MD [facility] Dexa Axial Skeleton - 10/30/19 - 8634 HISTORY: ??The patient is a 53-year-old postmenopausal [...] probability of hip fracture of 1.2%. Code 97317 Dictating Physician: ??GABRIELLA JIMÉNEZ MD Electronically Signed by: ??GABRIELLA JIMÉNEZ MD Dic Date/Time: ??10/30/19 08 Sign date/Time: ??10/30/19 0808 Procedure Note Gabriella Jiménez - 08/11/2022 [facility] Diagnostic Imaging Department [address] [place] [address] Patient: DEU SUÁREZ Octavio Britt/Age/Sex: 1965 - 53 - F Unit#: [id number] Location/Status: SPDIMAM/REG CLI [facility] Ordering Physician: GERARDO CHO MD [...] density of the femurs bilaterally is 0.796 gm/mt8tufca is 79% of that of young normals [...] probability of hip fracture of 1.2%. Code 21945 Dictating Physician: GABRIELLA JIMÉNEZ MD Electronically Signed by: GABRIELLA JIMÉNEZ MD Dic Date/Time: 10/30/19805 Sign date/Time: 10/30/19807 Gerardo Cho MD IMG BI PROCEDURES Final Result from Last 3 Months or Most Recently Relevant to Health Maintenance Insurance MEDICAID - [place] Care Teams Dixonac Operator Relationship Specialty Start Date End Date Johann Trujillo MD [address] [facility] [place] PCP - General Internal Medicine 09/06/24
== END 2024-11-27 12:56 | disposition home or self-care (01) ==
LOC: HO.XRAY 12:55
PROVIDERS: PCP Internal Medicine; Visit Provider Internal Medicine
DX: G58.8 Other specified mononeuropathies (principal)
CPT/HCPCS: 72220; 99212

== ENCOUNTER → 2024-11-27 13:35 | Outpatient (BNV) | payer MEDICAID, SELFPAY | PROVIDERS: PCP Internal Medicine; Visit Provider Radiology Diagnostic Radiology | DX: G58.8 Other specified mononeuropathies (principal); Z96.82 Presence of neurostimulator | CPT/HCPCS: 72220 ==

== ENCOUNTER 2024-12-08 11:10 | Outpatient (AMB) | payer MEDICAID, SELFPAY ==
--- NOTE | 2024-12-08 11:14 | MHC.OFFVIS ---
Vital Signs 12/08/24 11:15 Height 5 ft 3 in Weight 172 lb BMI 30.5 BP 134/65 Blood Pressure Location Lt brachial Position Sitting Respiration 16 Pulse 63 Pulse Source Pulse Oximeter Pulse Oximetry (%) 98 Oxygen Delivery Method Room Air Intake Visit Reasons: RIGHT TEP BLOCK Test Engineering Technician Required: No Allergies codeine Adverse Reaction (Intermediate, Verified 12/15/24 11:05) Vomiting silver [From Tegaderm AG Mesh] Adverse Reaction (Verified 12/15/24 11:05) red itchy rash Medication List - Last Reconciled 12/08/24 by Natalie Frazier LPN acetaminophen ER 650 mg PO QID alendronate 70 mg PO QWEEK bupropion HCl SR 150 mg PO BID calcium carbonate 600 mg PO DAILY cephalexin 500 mg PO TID cholecalciferol (vitamin D3) 25 mcg PO DAILY diazepam 2 mg PO TID donepezil 10 mg PO BEDTIME duloxetine 30 mg PO DAILY gabapentin 600 mg PO BID magnesium 500 mg PO DAILY metoprolol succinate ER 50 mg PO DAILY mirabegron ER (Myrbetriq) 50 mg PO DAILY omeprazole 20 mg PO BID pramipexole 0.375 mg PO BEDTIME topiramate mg PO HPI HPI RIGHT TEP BLOCK: Details: History of Present Illness The patient is a 58-year-old female presenting with right abdominal wall pain. There is a noted persistence of pain severity that has necessitated further intervention. Efforts were made to describe the issue and detail the course of interventions attempted or contributing factors before the consultation. The conversation focuses on the procedure undertaken to address this issue, specifying nerve block as part of ongoing management. Pain Description - Location: Right abdominal wall - Quality and Character: Pain persistence - Aggravating Factors: Not specifically discussed - Alleviating Factors: Nerve block procedure Pain Management - Affect: Not explicitly discussed in the encounter - Analgesia: Utilization of a nerve block with bupivacaine - Adverse Effects: No blood loss noted post-procedure - Activities of Daily Living: Not explicitly discussed in the encounter - Aberrant Drug Related Behaviors: Not explicitly discussed in the encounter Procedure - Procedure: Right TAB block for abdominal wall pain. - Consent: Informed consent was obtained prior to the procedure. - Description: Utilized a 21-gauge echogenic needle to inject 20 mL of 0.25% bupivacaine under ultrasound guidance into the right transverse abdominis plane. The needle was visualized throughout the procedure, ensuring it remained above the TA muscle. - Outcome: The patient tolerated the procedure well, with no blood loss observed. [facility] Medical History Hx of pilonidal cyst Degenerative disc disease, cervical Tinnitus of left ear Adenomyosis of uterus Bilateral breast cysts Sleep apnea Short-term memory loss Rheumatoid arthritis Osteoporosis SI (sacroiliac) joint dysfunction Hidradenitis suppurativa Occipital neuralgia Fibromyalgia HTN (hypertension) Lumbar disc disease Depression Overactive bladder Restless leg syndrome Peripheral neuropathy Surgical History History of gynecologic surgery History of surgery Hx of shoulder surgery H/O laminectomy History of carpal tunnel release of both wrists Hx of elbow surgery Hx of hysterectomy Hx of left knee surgery Hx of arthroscopy of left knee Hx of abdominal surgery H/O LEEP History of intestinal surgery Hx of appendectomy Social History Patient Tobacco Use Status: Former Tobacco user Physical Exam Vital Signs: Last Vital Signs Pulse 63 12/08/24 11:15 Resp 16 12/08/24 11:15 BP 134/65 12/08/24 11:15 Pulse Ox 98 12/08/24 11:15 Oxygen Delivery Method Room Air 12/08/24 11:15 BMI result Body Mass Index 30.5 Assessment & Plan Assessment & Plan (1) Abdominal wall pain: Code(s): R10.9 - Unspecified abdominal pain Category: Medical Plan Plan - Administered nerve block with bupivacaine for management of right abdominal wall pain using ultrasound guidance, ensuring procedural accuracy. The patient was informed of the procedure and its expected outcome, with no immediate postoperative complications noted. Patient was informed and verbally consented to the use of an ambient scribe for clinic note documentation during this visit. Discussion Notes I discussed with the patient the current management plan for her right abdominal wall pain, including the use of a nerve block to provide analgesia. The benefits, such as pain relief and minimal invasive nature of the procedure, were outlined, with the patient providing informed consent. Follow-up prn. Patient Instructions - Monitor for any unusual symptoms or side effects. - Report any changes or worsening of symptoms immediately. - Follow up if pain persists or any concerns arise. Coding Level of Care Code Procedure Only Diagnoses Abdominal wall pain R10.9
[2024-12-08 11:15] VITALS: BP 134/65; PULSE 63; RESP 16; O2SAT 98; BMI 30.5
--- OUTSIDE RECORDS SUMMARY | 2024-12-08 12:17 | XMS_ITS | Clinical Summary ---
Author Organization [facility] Address [address] [place] [address] Phone Care Team Providers Care Personnel Associate Name Role Phone Johann Trujillo MD Primary Care Provider [phone] Allergies Active Allergy Reactions Criticality Noted Date Comments Codeine Nausea Only 03/10/2021 Lidocaine-Prilocaine 09/05/2024 Medications No known medications Surgical History Surgery Date Site/Laterality Comments ABDOMINAL [...] Procedure Name Priority Date/Time Associated Diagnosis Comments COMPREHENSIVE METABOLIC PANEL STAT 09/05/2024 4:29 PM EST [facility] SCREENING DIGITAL Routine 01/23/2022 4:44 PM EDT Encounter for screening mammogram for malignant neoplasm of breast [facility] DEXA AXIAL SKELETON Routine 10/30/2019 8:08 AM EDT Encounter for screening for osteoporosis from Last 3 Months or Most Recently Relevant to Health Maintenance Results * Comprehensive metabolic panel (09/05/2024 4:29 PM [...] Resu lt [facility] [address] [place] [address], * TERELL SCREENING DIGITAL (01/23/2022 4:44 PM EDT) Anatomical Region Laterality Modality Mammography 01/23/2022 11:1 5 AM EDT Narrative 01/23/2022 4:44 PM EDT [facility] Diagnostic Imaging Department [address] [place] [address] Patient: ??EDU SUÁREZ ?/Age/Sex: 1965 - - Unit#: ??[id number] ? Location/Status: ??SPDIMAM/REG CLI ? Mnemonic/Ordering Site: ??DIGSC/SPMAM Ordering Physician: ??KATHERIN ALVARADO MD [facility] Screening Digital - 01/23/22 - 1154 History: Bilateral breast cancer screening. Technique: ??Digital mammography. Conventional CC and MLO projections with tomosynthesis MLO views and computer aided detection. Comparison: [facility] 01/27/2021 dating back to 02/10/2016. Findings: ?? Breast tissue consists of fatty and fibroglandular elements (category b density) bilaterally (as calculated by Radisyspara software). There is no suspicious group of microcalcifications, mass, architectural distortion or suspicious change in breast tissue density. Impression: No evidence of malignancy. BIRADS category 1; negative study, 3341F 17752, 85100 Note: Patient information entered into a reminder system with a target due date for the next mammogram: ??CPT II 7025F Dictating Physician: ??CANDELARIO ENRIQUEZ MD Electronically Signed by: ??CANDELARIO ENRIQUEZ MD Dic Date/Time: ??01/23/22 1640 Sign date/Time: ??01/23/22 1644 Procedure Note Candelario Enriquez MD - 08/12/2022 [facility] Diagnostic Imaging Department [address] [place] [address] Patient: EDU SUÁREZ Ellen /Age/Sex: 1965 - 56 - F Unit#: [id number] Location/Status: [facility] Mnemonic/Ordering Site: [facility] Ordering Physician: KATHERIN ALVARADO MD Terell Screening Digital - 01/23/22 - 1154 History: Bilateral breast cancer screening. Technique: Digital mammography. Conventional CC and MLO projectionswith tomosynthesis MLO views and computer aided detection. Comparison: [facility] 01/27/2021 dating back to 02/10/2016. Findings: Breast tissue consists of fatty and fibroglandular elements (category b density) bilaterally (as calculated by iReTelinetal [employer]iverpar[employer]oftware). There is no suspicious group of microcalcifications, mass, architectural distortion or suspicious change in breast tissue density. Impression: No evidence of malignancy. BIRADS category 1; negative study, 3341F 74346, 32681 Note: Patient information entered into a reminder system with a target duedate for the next mammogram: CPT II 7025F Dictating Physician: CANDELARIO ENRIQUEZ MD Electronically Signed by: CANDELARIO ENRIQUEZ MD Dic Date/Time: 01/23/22 1640 Sign date/Time: 01/23/22 6184 us Katherin Alvarado MD IMG BI PROCEDURES Final Resu lt * [facility] DEXA AXIAL SKELETON (10/30/2019 8:08 AM EDT) Anatomical Region Laterality Modality Mammography 10/30/2019 7:36 AM EDT Narrative 10/30/2019 8:08 AM EDT [facility] Diagnostic Imaging Department [address] [place] [address] Patient: ??EDU SUÁREZ ?/Age/Sex: 1965 - 53 - F Unit#: ??[id number] ? Location/Status: ??SPDIMAM/REG CLI ? Mnemonic/Ordering Site: ??MAMDEXAAX/SPMAM Ordering Physician: ??GERARDO LUX MD [facility] Dexa Axial Skeleton - 10/30/19 8418 HISTORY: ??The patient is a 53-year-old postmenopausal [...] probability of hip fracture of 1.2%. Code 43103 Dictating Physician: ??GABRIELLA PIERRE MD Electronically Signed by: ??GABRIELLA PIERRE MD Dic Date/Time: ??10/30/19 0806 Sign date/Time: ??10/30/19 0808 Procedure Note Gabriella Pierre - 08/11/2022 [facility] Diagnostic Imaging Department [address] [place] [address] Patient: EDU SUÁREZ Ellen /Age/Sex: 1965 - 53 - F Unit#: [id number] Location/Status: SPDIMA/REG CLI [facility] Ordering Physician: GERARDO LUX MD [facility] Dexa Axial Skeleton - 10/30/19 - 4991 HISTORY: The patient is a 53-year-old postmenopausal [...] density of the femurs bilaterally is 0.796 gm/yd5vjyre is 79% of that of young normals [...] probability of hip fracture of 1.2%. Code 77817 Dictating Physician: GABRIELLA PIERRE MD Electronically Signed by: GABRIELLA PIERRE MD Dic Date/Time: 10/30/19 0806 Sign date/Time: 10/30/19 0808 Gerardo Lux MD IMG BI PROCEDURES Final Result from Last 3 Months or Most Recently Relevant to Health Maintenance Insurance MEDICAID - [place] Care Teams Personnel Associate Relationship Specialty Start Date End Date Johann Trujillo MD [address] [facility] [place] PCP - General Internal Medicine 09/06/24
== END 2024-12-08 11:54 | disposition home or self-care (01) ==
LOC: HO.PMC 11:10
PROVIDERS: PCP Internal Medicine; Visit Provider Internal Medicine
DX: R10.9 Unspecified abdominal pain (principal)
CPT/HCPCS: 64486

== ENCOUNTER → 2024-12-08 11:10 | Outpatient (BNVA) | payer MEDICAID, SELFPAY | PROVIDERS: PCP Internal Medicine; Visit Provider Internal Medicine | DX: R10.9 Unspecified abdominal pain (principal) | CPT/HCPCS: 64486 ==

== ENCOUNTER 2024-12-15 11:01 | Outpatient (AMB) | payer MEDICAID, SELFPAY ==
[2024-12-15 11:04] VITALS: BP 131/61; PULSE 72; RESP 16; O2SAT 100; BMI 30.5
--- NOTE | 2024-12-15 11:04 | A.OFFVIS_ITS ---
Vital Signs 12/15/24 11:04 Height 5 ft 3 in Weight 172 lb BMI 30.5 BP 131/61 Blood Pressure Location Lt brachial Position Sitting Respiration 16 Pulse 72 Pulse Source Pulse Oximeter Pulse Oximetry (%) 100 Oxygen Delivery Method Room Air Intake Visit Reasons: Abdominal Pain Furniture Sales Consultant Required: No Allergies codeine Adverse Reaction (Intermediate, Verified 12/25/24 11:46) Vomiting silver [From Tegaderm AG Mesh] Adverse Reaction (Verified 12/25/24 11:46) red itchy rash Medication List - Last Reconciled 12/15/24 by Natalie Frazier LPN acetaminophen ER 650 mg PO QID alendronate 70 mg PO QWEEK bupropion HCl SR 150 mg PO BID calcium carbonate 600 mg PO DAILY cephalexin 500 mg PO TID cholecalciferol (vitamin D3) 25 mcg PO DAILY diazepam 2 mg PO TID donepezil 10 mg PO BEDTIME duloxetine 30 mg PO DAILY gabapentin 600 mg PO BID magnesium 500 mg PO DAILY metoprolol succinate ER 50 mg PO DAILY mirabegron ER (Myrbetriq) 50 mg PO DAILY omeprazole 20 mg PO BID pramipexole 0.375 mg PO BEDTIME topiramate mg PO HPI HPI Abdominal Pain: Details: History of Present Illness The patient is a 58-year-old female presenting with chronic back pain for further management and evaluation. She has a history of fibromyalgia, with previous therapeutic interventions including a cortisone injection administered approximately five to six weeks earlier in the shoulder. This injection provided brief relief lasting for three days, but her back pain returned to its previous level of severity and intensity. Exacerbating her condition, she reports a correlation between inclement weather patterns and an increase in her pain severity, affecting other parts of her body, including the abdomen and ear. The planned head surgery on January 09 adds complexity to the management of her back pain, requiring careful timing of any additional interventions to avoid interference with surgical recovery. In light of this, there is a tentative plan to consider additional treatment of chronic back pain prior to her surgery. Pain Description - Onset: Chronic, with recent flare-ups related to weather changes. - Quality: Achy, with radiating characteristics affecting the abdomen and ear. - Primary location: Back, with radiating pain to the abdomen and ear. - Exacerbating factors: Inclement weather, particularly rain. - Relieving factors: Brief relief noted from cortisone injections. Physical Exam Results Pain Management - Affect: Increased whole-body achiness and discomfort with weather changes. - Analgesia: Previous cortisone injection provided three days of relief, planning another injection. - Adverse Effects: None noted. - Activities of Daily Living: Increased difficulty due to generalized pain when the weather is bad. - Aberrant Drug-Related Behaviors: None reported or discussed. COUNTS INCLUDE 234 BEDS AT THE [facility] Medical History Hx of pilonidal cyst Degenerative disc disease, cervical Tinnitus of left ear Adenomyosis of uterus Bilateral breast cysts Sleep apnea Short-term memory loss Rheumatoid arthritis Osteoporosis SI (sacroiliac) joint dysfunction Hidradenitis suppurativa Occipital neuralgia Fibromyalgia HTN (hypertension) Lumbar disc disease Depression Overactive bladder Restless leg syndrome Peripheral neuropathy Surgical History History of gynecologic surgery History of surgery Hx of shoulder surgery H/O laminectomy History of carpal tunnel release of both wrists Hx of elbow surgery Hx of hysterectomy Hx of left knee surgery Hx of arthroscopy of left knee Hx of abdominal surgery H/O LEEP History of intestinal surgery Hx of appendectomy Social History Patient Tobacco Use Status: Former Tobacco user Physical Exam Vital Signs: Last Vital Signs Pulse 72 12/15/24 11:04 Resp 16 12/15/24 11:04 BP 131/61 12/15/24 11:04 Pulse Ox 100 12/15/24 11:04 Oxygen Delivery Method Room Air 12/15/24 11:04 BMI result Body Mass Index 30.5 Assessment & Plan Assessment & Plan (1) Abdominal wall pain: Code(s): R10.9 - Unspecified abdominal pain Category: Medical Plan Plan - Administer a cortisone TAP block injection on December 25 for chronic abdominal pain management. - Monitor patient response to the cortisone injection for efficacy and potential relief of symptoms. - Limit other interventions related to back pain or fibromyalgia prior to the scheduled scalp surgery on January 09. Patient was informed and verbally consented to the use of an ambient scribe for clinic note documentation during this visit. Discussion Notes During our discussion, we reviewed the patient's recent response to local anesthetic only injection for her abdominal pain, which provided transient relief of her chronic abdominal pain. We talked about the exacerbation of pain related to weather changes and the potential benefits of scheduling another injection with a small amount of corticosteroid in it. I explained the importance of timing this intervention in relation to her upcoming head surgery to prevent complications with surgical recovery. The patient agreed to the plan to have an injection on December 25. We also discussed the rationale behind spacing injections to avoid excessive corticosteroid exposure. I reassured her that we aim to provide longer-term relief with subsequent pain management strategies. The patient is aware of the need for coordination when addressing her back pain in light of her surgery. Patient Instructions - Plan to receive a tap block injection on December 25 with a small dose of cortisone - Monitor your pain levels and note any changes after the injection. - Avoid heavy lifting or activities that exacerbate back pain before and after the procedure. - Contact our office if you experience any new symptoms or concerns. - Prepare for your head surgery on January 09 as advised by your surgical team. Coding Level of Care Code Est Pt Level 3 (26851) Diagnoses Abdominal wall pain R10.9
--- OUTSIDE RECORDS SUMMARY | 2024-12-15 11:48 | XMS_ITS | Clinical Summary ---
Author Organization [facility] Address [address] [place] [address] Phone Care Team Providers Care Optometric Aide Name Role Phone Johann Trujillo MD Primary Care Provider [phone] Allergies Active Allergy Reactions Criticality Noted Date [...] METABOLIC PANEL STAT 09/05/2024 4:29 PM EST [facility] SCREENING DIGITAL Routine 01/23/2022 4:44 PM EDT Encounter for screening mammogram for malignant neoplasm of breast [facility] DEXA AXIAL SKELETON Routine 10/30/2019 8:08 AM EDT Encounter for screening for osteoporosis from Last 3 Months or Most Recently Relevant to Health Maintenance Results * Comprehensive metabolic panel (09/05/2024 4:29 PM EST) Sodium 140 133 - 145 mmol/L LAB CHEMISTRY METHOD 09/05/2024 5:21 PM [facility] Potassium 4.5 3.5 - 5.5 mmol/L LAB CHEMISTRY METHOD 09/05/2024 5:21 PM [facility] Chloride 110 96 - 110 mmol/L LAB CHEMISTRY METHOD 09/05/2024 5:21 PM [facility] CO2 26 21 - 32 mmol/L LAB CHEMISTRY METHOD 09/05/2024 5:21 PM [facility] Anion Gap 4 3 - 11 LAB CHEMISTRY METHOD 09/05/2024 5:21 PM [facility] Glucose 95 70 - 100 mg/dL LAB CHEMISTRY METHOD 09/05/2024 5:21 PM [facility] BUN 16 5 - 25 mg/dL LAB CHEMISTRY METHOD 09/05/2024 5:21 PM [facility] Creatinine 0.98 0.50 - 1.10 mg/dL LAB CHEMISTRY METHOD 09/05/2024 5:21 PM [facility] eGFR 68 >=60 mL/min/1. 73m2 LAB CHEMISTRY METHOD 09/05/2024 5:21 PM [facility] Comment:Calculation based on the??Chronic Kidney Disease Epidemiology Collaboration (CKD-EPI) equation refit??without adjustment for race. BUN/Creatinine Ratio 16.3 LAB CHEMISTRY METHOD 09/05/2024 5:21 PM [facility] Calcium 9.0 8.5 - 10.5 mg/dL LAB CHEMISTRY METHOD 09/05/2024 5:21 PM [facility] AST (SGOT) 22 10 - 42 unit/L LAB CHEMISTRY METHOD 09/05/2024 5:21 PM [facility] ALT (SGPT) 27 10 - 60 unit/L LAB CHEMISTRY METHOD 09/05/2024 5:21 PM [facility] Alkaline Phosphatase 50 42 - 121 unit/L LAB CHEMISTRY METHOD 09/05/2024 5:21 PM [facility] Total Protein 6.8 6.0 - 8.0 g/dL LAB CHEMISTRY METHOD 09/05/2024 5:21 PM [facility] Albumin 3.8 3.2 - 5.0 g/dL LAB CHEMISTRY METHOD 09/05/2024 5:21 PM [facility] Total Bilirubin 0.3 0.0 - 1.4 mg/dL LAB CHEMISTRY METHOD 09/05/2024 5:21 PM [facility] Blood Venous blood specimen / Unknown Venipuncture / Unknown 09/05/2024 4:29 PM EST 09/05/2024 4:51 PM EST us Harris Fay MD LAB BLOOD ORDERABLES Final Resu lt [facility] [address] [place] [address], * [facility] SCREENING DIGITAL (01/23/2022 4:44 PM EDT) Anatomical Region Laterality Modality Mammography 01/23/2022 11:1 5 AM EDT Narrative 01/23/2022 4:[address] [facility] Diagnostic Imaging Department [address] [place] [address] Patient: ??EDU SUÁREZ ?/Age/Sex: 1965 - - Unit#: ??[id number] ? Location/Status: ??SPDIMAM/REG CLI ? Mnemonic/Ordering Site: ??DIGSC/SPMAM Ordering Physician: ??KATHERIN ALVARADO MD [facility] Screening Digital - 01/23/22 - 1154 History: Bilateral breast cancer screening. Technique: ??Digital mammography. Conventional CC and MLO projections with tomosynthesis MLO views and computer aided detection. Comparison: [facility] 01/27/2021 dating back to 02/10/2016. Findings: ?? Breast tissue consists of fatty and fibroglandular elements (category b density) bilaterally (as calculated by Dotpara software). There is no suspicious group of microcalcifications, mass, architectural distortion or suspicious change in breast tissue density. Impression: No evidence of malignancy. BIRADS category 1; negative study, 3341F 96148, 18326 Note: Patient information entered into a reminder system with a target due date for the next mammogram: ??CPT II 7025F Dictating Physician: ??CANDELARIO ENRIQUEZ MD Electronically Signed by: ??CANDELARIO ENRIQUEZ MD Dic Date/Time: ??01/23/22 1640 Sign date/Time: ??01/23/22 1644 Procedure Note Candelario Enriquez MD - 08/12/2022 [facility] Diagnostic Imaging Department [address] [place] [address] Patient: EDU SUÁREZ Ellen /Age/Sex: 1965 - 56 - F Unit#: [id number] [facility]/Ordering Site: [facility] Ordering Physician: KATHERIN ALVARADO MD Terell Screening Digital - 01/23/22 - 1154 History: Bilateral breast cancer screening. Technique: Digital mammography. Conventional CC and MLO projectionswith tomosynthesis MLO views and computer aided detection. Comparison: [facility] 01/27/2021 dating back to 02/10/2016. Findings: Breast tissue consists of fatty and fibroglandular elements (category b density) bilaterally (as calculated by iReRateItAllal StemBioSysparasoftware). There is no suspicious group of microcalcifications, mass, architectural distortion or suspicious change in breast tissue density. Impression: No evidence of malignancy. BIRADS category 1; negative study, 3341F 73558, 59465 Note: Patient information entered into a reminder system with a target duedate for the next mammogram: CPT II 7025F Dictating Physician: CANDELARIO ENRIQUEZ MD Electronically Signed by: CANDELARIO ENRIQUEZ MD Dic Date/Time: 01/23/22 1640 Sign date/Time: 01/23/22 3654 us Katherin Alvarado MD IMG BI PROCEDURES Final Resu lt * [facility] DEXA AXIAL SKELETON (10/30/2019 8:08 AM EDT) Anatomical Region Laterality Modality Mammography 10/30/2019 7:36 AM EDT Narrative 10/30/2019 8:[address] [facility] Diagnostic Imaging Department [address] [place] [address] Patient: ??EDU SUÁREZ ?/Age/Sex: 1965 - 53 - F Unit#: ??[id number] ? Location/Status: ??SPDIMAM/REG CLI ? Mnemonic/Ordering Site: ??MAMDEXAAX/SPMAM Ordering Physician: ??GERARDO LUX MD [facility] Dexa Axial Skeleton - 10/30/19 6708 HISTORY: ??The patient is a 53-year-old postmenopausal [...] probability of hip fracture of 1.2%. Code 92468 Dictating Physician: ??GABRIELLA PIERRE MD Electronically Signed by: ??GABRIELLA PIERRE MD Dic Date/Time: ??10/30/19 0806 Sign date/Time: ??10/30/19 0808 Procedure Note Gabriella Pierre - 08/11/2022 [facility] Diagnostic Imaging Department [address] [place] [address] Patient: EDU SUÁREZ Ellen /Age/Sex: 1965 - 53 - F Unit#: [id number] Location/Status: SPDIMA/REG CLI [facility] Ordering Physician: GERARDO LUX MD [facility] Dexa Axial Skeleton - 10/30/19 - 5046 HISTORY: The patient is a 53-year-old postmenopausal [...] density of the femurs bilaterally is 0.796 gm/aw0wtqqx is 79% of that of young normals [...] probability of hip fracture of 1.2%. Code 30266 Dictating Physician: GABRIELLA PIERRE MD Electronically Signed by: GABRIELLA PIERRE MD Dic Date/Time: 10/30/19 0806 Sign date/Time: 10/30/19 0808 Gerardo Lux MD IMG BI PROCEDURES Final Result from Last 3 Months or Most Recently Relevant to Health Maintenance Insurance MED[place]ID - [place] Care Teams Optometric Aide Relationship Specialty Start Date End Date Johann Trujillo MD [address] [facility] [place] PCP - General Internal Medicine 09/06/24
== END 2024-12-15 11:35 | disposition home or self-care (01) ==
LOC: HO.PMC 11:02
PROVIDERS: PCP Internal Medicine; Visit Provider Internal Medicine
DX: R10.9 Unspecified abdominal pain (principal)
CPT/HCPCS: 99213

== ENCOUNTER → 2024-12-15 11:01 | Outpatient (BNVA) | payer MEDICAID, SELFPAY | PROVIDERS: PCP Internal Medicine; Visit Provider Internal Medicine | DX: R10.9 Unspecified abdominal pain (principal); M79.7 Fibromyalgia | CPT/HCPCS: 99212 ==

== ENCOUNTER 2024-12-25 11:25 | Outpatient (AMB) | payer MEDICAID, SELFPAY ==
[2024-12-25 11:41] VITALS: BP 140/63; PULSE 74; RESP 16; O2SAT 99; BMI 30.5
--- NOTE | 2024-12-25 11:41 | A.OFFVIS_ITS ---
Vital Signs 12/25/24 11:41 Height 5 ft 3 in Weight 172 lb BMI 30.5 BP 140/63 H Blood Pressure Location Lt brachial Position Sitting Respiration 16 Pulse 74 Pulse Source Pulse Oximeter Pulse Oximetry (%) 99 Oxygen Delivery Method Room Air Intake Visit Reasons: TNB [employer] Inspector Required: No Toll Transmission Worker: Toll Transmission Worker Present Accompanied by: Dhiraj Lima codeine Adverse Reaction (Intermediate, Verified 01/05/25 12:15) Vomiting silver [From Tegaderm AG Mesh] Adverse Reaction (Verified 01/05/25 12:15) red itchy rash Medication List - Last Reconciled 12/25/24 by Natalie Frazier LPN acetaminophen ER 650 mg PO QID alendronate 70 mg PO QWEEK bupropion HCl SR 150 mg PO BID calcium carbonate 600 mg PO DAILY cephalexin 500 mg PO TID cholecalciferol (vitamin D3) 25 mcg PO DAILY diazepam 2 mg PO TID donepezil 10 mg PO BEDTIME duloxetine 30 mg PO DAILY gabapentin 600 mg PO BID magnesium 500 mg PO DAILY metoprolol succinate ER 50 mg PO DAILY mirabegron ER (Myrbetriq) 50 mg PO DAILY omeprazole 20 mg PO BID pramipexole 0.375 mg PO BEDTIME topiramate mg PO HPI HPI TNB: Details: History of Present Illness The patient is a 59-year-old female presenting with abdominal pain. The patient experienced a severe episode of abdominal pain lasting from 1:45 to 2:20 AM, which she described as stabbing in nature. The intensity was notable enough to cause vocal and emotional distress, including crying for an extended period and returning to baseline intensity after peaking. She found temporary relief from an injection for two days post-procedure. An additional recent fall resulted in minor injuries, but no significant trauma was reported. Pain Description - Onset: Sudden exacerbation esthetician spa last Wednesday - Quality: Stabbing pain - Primary Location: Abdomen - Radiation: Not specified - Alleviating Factors: Temporary relief with an injection - Aggravating Factors: No additional exacerbating factors identified - Impact on Activities: Caused significant distress and interruption during the pain episode Pain Management - Affect: Pain caused emotional distress with episodes of crying; patient describes pain as severe and overwhelming during peak. - Analgesia: Injection provided temporary pain relief lasting two days. - Adverse Effects: None reported from current or past treatment. - Activities of Daily Living: Severe pain episodes disrupt normal routines and cause significant distress. - Aberrant Drug Related Behaviors: No signs noted or reported. Procedure - Procedure: Right TAP block for abdominal wall pain. - Consent: Informed consent was obtained prior to the procedure. - Description: Utilized a 21-gauge echogenic needle to inject 20 mL of 0.25% bupivacaine w/ 20mg Kenalog under ultrasound guidance into the right transverse abdominis plane. The needle was visualized throughout the procedure, ensuring it remained above the TA muscle. - Outcome: The patient tolerated the procedure well, with no blood loss observed. [facility] Medical History Hx of pilonidal cyst Degenerative disc disease, cervical Tinnitus of left ear Adenomyosis of uterus Bilateral breast cysts Sleep apnea Short-term memory loss Rheumatoid arthritis Osteoporosis SI (sacroiliac) joint dysfunction Hidradenitis suppurativa Occipital neuralgia Fibromyalgia HTN (hypertension) Lumbar disc disease Depression Overactive bladder Restless leg syndrome Peripheral neuropathy Surgical History History of gynecologic surgery History of surgery Hx of shoulder surgery H/O laminectomy History of carpal tunnel release of both wrists Hx of elbow surgery Hx of hysterectomy Hx of left knee surgery Hx of arthroscopy of left knee Hx of abdominal surgery H/O LEEP History of intestinal surgery Hx of appendectomy Family History (Updated 01/03/25 @ 14:44 by Ruby Jimenez) Mother No problems noted. Father No problems noted. Social History (Updated 01/03/25 @ 14:42 by Ruby Jimenez) Alcohol intake: current Alcohol intake frequency: holidays/special occasions only Patient Tobacco Use Status: Former Tobacco user Substance Use Type: Marijuana Physical Exam Vital Signs: Last Vital Signs Pulse 74 12/25/24 11:41 Resp 16 12/25/24 11:41 BP 140/63 H 12/25/24 11:41 Pulse Ox 99 12/25/24 11:41 Oxygen Delivery Method Room Air 12/25/24 11:41 BMI result Body Mass Index 30.5 Assessment & Plan Assessment & Plan (1) Abdominal wall pain: Code(s): R10.9 - Unspecified abdominal pain Category: Medical Plan Plan - Provided ultrasound-guided TAP injection with bupivacaine and Kenalog for pain management. - Plan to reassess pain levels post-injection and consider repeat procedures based on effectiveness. Patient was informed and verbally consented to the use of an ambient scribe for clinic note documentation during this visit. Discussion Notes I discussed the patient's current abdominal pain management plan, including the recent injection she received, which provided temporary relief. I explained the details of the procedure performed during this visit, including the use of bupivacaine and Kenalog, and ensured that the patient understood the steps involved and anticipated outcomes. We discussed no significant risks or adverse effects noted, and the patient tolerated the intervention well. I reviewed the patient?s upcoming ear surgery and any necessary precautions or considerations concerning her pain management leading up to the surgical procedure. I ensured that follow-up for continued evaluation of her abdominal pain would be available, and emphasized how future procedures would be based on her reported experiences of pain relief. Patient Instructions - Monitor for any adverse reactions post-injection such as increased pain or irritation. - Follow up as needed based on pain severity or return of symptoms. - Prepare and plan for upcoming ear surgery, follow pre-surgical instructions provided by the surgical team. - Contact medical support if there are concerning symptoms, such as exacerbation of abdominal pain or any unusual signs following the procedure. Coding Level of Care Code Procedure Only Diagnoses Abdominal wall pain R10.9
--- OUTSIDE RECORDS SUMMARY | 2024-12-25 13:13 | XMS_ITS | Clinical Summary ---
Author Organization [facility] Address [address] [place] [address] Phone Care Team Providers Care Director Of Instrumental Music Name Role Phone Johann Trujillo MD Primary Care Provider [phone] Allergies Active Allergy Reactions Criticality Noted Date [...] Maintenance Due Date Last Done Comments Hepatitis A Vaccines (1 of 2 - Risk 2-dose series) 12/16/1986 Hepatitis B Vaccines (1 of 3 - [...] METABOLIC PANEL STAT 09/05/2024 4:29 PM EST [facility] SCREENING DIGITAL Routine 01/23/2022 4:44 PM EDT Encounter for screening mammogram for malignant neoplasm of breast [facility] DEXA AXIAL SKELETON Routine 10/30/2019 8:08 AM EDT Encounter for screening for osteoporosis from Last 3 Months or Most Recently Relevant to Health Maintenance Results * Comprehensive metabolic panel (09/05/2024 4:29 PM EST) Sodium 140 133 - 145 mmol/L LAB CHEMISTRY METHOD 09/05/2024 5:21 PM [facility] Potassium 4.5 3.5 - 5.5 mmol/L LAB CHEMISTRY METHOD 09/05/2024 5:21 PM [facility] Chloride 110 96 - 110 mmol/L LAB CHEMISTRY METHOD 09/05/2024 5:21 PM [facility] CO2 26 21 - 32 mmol/L LAB CHEMISTRY METHOD 09/05/2024 5:21 PM [facility] Anion Gap 4 3 - 11 LAB CHEMISTRY METHOD 09/05/2024 5:21 PM [facility] Glucose 95 70 - 100 mg/dL LAB CHEMISTRY METHOD 09/05/2024 5:21 PM [facility] BUN 16 5 - 25 mg/dL LAB CHEMISTRY METHOD 09/05/2024 5:21 PM [facility] Creatinine 0.98 0.50 - 1.10 mg/dL LAB CHEMISTRY METHOD 09/05/2024 5:21 PM [facility] eGFR 68 >=60 mL/min/1. 73m2 LAB CHEMISTRY METHOD 09/05/2024 5:21 PM [facility] Comment:Calculation based on the??Chronic Kidney Disease Epidemiology Collaboration (CKD-EPI) equation refit??without adjustment for race. BUN/Creatinine Ratio 16.3 LAB CHEMISTRY METHOD 09/05/2024 5:21 PM [facility] Calcium 9.0 8.5 - 10.5 mg/dL LAB CHEMISTRY METHOD 09/05/2024 5:21 PM [facility] AST (SGOT) 22 10 - 42 unit/L LAB CHEMISTRY METHOD 09/05/2024 5:21 PM [facility] ALT (SGPT) 27 10 - 60 unit/L LAB CHEMISTRY METHOD 09/05/2024 5:21 PM [facility] Alkaline Phosphatase 50 42 - 121 unit/L LAB CHEMISTRY METHOD 09/05/2024 5:21 PM [facility] Total Protein 6.8 6.0 - 8.0 g/dL LAB CHEMISTRY METHOD 09/05/2024 5:21 PM [facility] Albumin 3.8 3.2 - 5.0 g/dL LAB CHEMISTRY METHOD 09/05/2024 5:21 PM [facility] Total Bilirubin 0.3 0.0 - 1.4 mg/dL LAB CHEMISTRY METHOD 09/05/2024 5:21 PM [facility] Blood Venous blood specimen / Unknown Venipuncture / Unknown 09/05/2024 4:29 PM EST 09/05/2024 4:51 PM EST us Harris Fay MD LAB BLOOD ORDERABLES Final Resu lt [facility] [address] [place] [address], * TERELL SCREENING DIGITAL (01/23/2022 4:44 PM EDT) Anatomical Region Laterality Modality Mammography 01/23/2022 11:1 5 AM EDT Narrative 01/23/2022 4:44 PM EDT [facility] Diagnostic Imaging Department [address] [place] [address] Patient: ??EDU SUÁREZ ?/Age/Sex: 1965 - - Unit#: ??[id number] ? Location/Status: ??SPDIMAM/REG CLI ? Mnemonic/Ordering Site: ??DIGSC/SPMAM Ordering Physician: ??KATHERIN ALVARADO MD [facility] Screening Digital - 01/23/22 - 1154 History: Bilateral breast cancer screening. Technique: ??Digital mammography. Conventional CC and MLO projections with tomosynthesis MLO views and computer aided detection. Comparison: [facility] 01/27/2021 dating back to 02/10/2016. Findings: ?? Breast tissue consists of fatty and fibroglandular elements (category b density) bilaterally (as calculated by [employer] software). There is no suspicious group of microcalcifications, mass, architectural distortion or suspicious change in breast tissue density. Impression: No evidence of malignancy. BIRADS category 1; negative study, 3341F 35054, [id number] Note: Patient information entered into a reminder system with a target due date for the next mammogram: ??CPT II 7025F Dictating Physician: ??CANDELARIO ENRIQUEZ MD Electronically Signed by: ??CANDELARIO ENRIQUEZ MD Dic Date/Time: ??01/23/22 1640 Sign date/Time: ??01/23/22 1644 Procedure Note Candelario Enriquez MD - 08/12/2022 [facility] Diagnostic Imaging Department [address] [place] [address] Patient: EDU SUÁREZ Eleln /Age/Sex: 1965 - 56 - F Unit#: [id number] [facility] Mn[facility]onic/Ordering Site: [facility] Ordering Physician: KATHERIN ALVARADO MD Terell Screening Digital - 01/23/22 - 1154 History: Bilateral breast cancer screening. Technique: Digital mammography. Conventional CC and MLO projectionswith tomosynthesis MLO views and computer aided detection. Comparison: [facility] 01/27/2021 dating back to 02/10/2016. Findings: Breast tissue consists of fatty and fibroglandular elements (category b density) bilaterally (as calculated by [employer]). There is no suspicious group of microcalcifications, mass, architectural distortion or suspicious change in breast tissue density. Impression: No evidence of malignancy. BIRADS category 1; negative study, 3341F 79685, [id number] Note: Patient information entered into a reminder system with a target duedate for the next mammogram: CPT II 7025F Dictating Physician: CANDELARIO ENRIQUEZ MD Electronically Signed by: CANDELARIO ENRIQUEZ MD Dic Date/Time: 01/23/22 1640 Sign date/Time: 01/23/22 4294 us Katherin Alvarado MD IMG BI PROCEDURES Final Resu lt * [facility] DEXA AXIAL SKELETON (10/30/2019 8:08 AM EDT) Anatomical Region Laterality Modality Mammography 10/30/2019 7:36 AM EDT Narrative 10/30/2019 8:08 AM EDT [facility] Diagnostic Imaging Department [address] [place] [address] Patient: ??EDU SUÁREZ ?/Age/Sex: 1965 - 53 - F Unit#: ??[id number] ? Location/Status: ??SPDIMAM/REG CLI ? Mnemonic/Ordering Site: ??MAMDEXAAX/SPMAM Ordering Physician: ??GERARDO LUX MD [facility] Dexa Axial Skeleton - 10/30/19 9354 HISTORY: ??The patient is a 53-year-old postmenopausal [...] probability of hip fracture of 1.2%. Code 48382 Dictating Physician: ??GABRIELLA PIERRE MD Electronically Signed by: ??GABRIELLA PIERRE MD Dic Date/Time: ??10/30/19 0806 Sign date/Time: ??10/30/19 0808 Procedure Note Gabriella Pierre - 08/11/2022 [facility] Diagnostic Imaging Department [address] [place] [address] Patient: EDU SUÁREZ Ellen /Age/Sex: 1965 - 53 - F Unit#: [id number] Location/Status: SPDIMA/REG CLI [facility] Ordering Physician: GERARDO LUX MD [facility] Dexa Axial Skeleton - 10/30/19 - 6160 HISTORY: The patient is a 53-year-old postmenopausal [...] density of the femurs bilaterally is 0.796 gm/yw1pwvyd is 79% of that of young normals [...] probability of hip fracture of 1.2%. Code 52246 Dictating Physician: GABRIELLA PIERRE MD Electronically Signed by: GABRIELLA PIERRE MD Dic Date/Time: 10/30/19 0806 Sign date/Time: 10/30/19 0808 Gerardo Lux MD IMG BI PROCEDURES Final Result from Last 3 Months or Most Recently Relevant to Health Maintenance Insurance MEDICAID - [place] Care Teams Director Of Instrumental Music Relationship Specialty Start Date End Date Johann Trujillo MD [address] [facility] [place] PCP - General Internal Medicine 09/06/24
== END 2024-12-25 11:58 | disposition home or self-care (01) ==
LOC: HO.PMC 11:26
PROVIDERS: PCP Internal Medicine; Visit Provider Internal Medicine
DX: R10.9 Unspecified abdominal pain (principal)
CPT/HCPCS: 64486

== ENCOUNTER 2025-01-03 14:30 | Outpatient (AMB) | payer MEDICAID, SELFPAY ==
--- NOTE | 2025-01-03 14:31 | MHC.OFFVIS ---
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/Fibromyalgia/myofascial pain/restless legs Allergies codeine Adverse Reaction (Intermediate, Verified 12/25/24 11:46) Vomiting silver [From Tegaderm AG Mesh] Adverse Reaction (Verified 12/25/24 11:46) red itchy rash Medication List - Last Reconciled 01/03/25 by Yony Jain MD alendronate 70 mg PO QWEEK bupropion HCl SR 150 mg PO BID calcium carbonate 600 mg PO DAILY cholecalciferol (vitamin D3) 25 mcg PO DAILY diazepam 2 mg PO TID donepezil 10 mg PO BEDTIME duloxetine 30 mg PO DAILY gabapentin 600 mg PO BID magnesium 500 mg PO DAILY metoprolol succinate ER 50 mg PO DAILY mirabegron ER (Myrbetriq) 50 mg PO DAILY omeprazole 20 mg PO BID pramipexole 0.375 mg PO BEDTIME topiramate mg PO HPI Comments Details: Edu is here for consultation regarding cardiac murmur/abnormal echocardiogram. It seems that she has had a cardiac murmur followed through her own PCP. Recently had an echocardiogram and that showed aortic stenosis and hence she has been referred here. Patient herself does not have any known cardiac issues. It seems that she has got chronic pain and states that she has had numerous surgeries over the years. From the cardiac standpoint, no known coronary disease or myocardial infarction or any other clear-cut concerns. Chronic shortness of breath that goes back many years. [facility] Medical History Hx of pilonidal cyst Degenerative disc disease, cervical Tinnitus of left ear Adenomyosis of uterus Bilateral breast cysts Sleep apnea Short-term memory loss Rheumatoid arthritis Osteoporosis SI (sacroiliac) joint dysfunction Hidradenitis suppurativa Occipital neuralgia Fibromyalgia HTN (hypertension) Lumbar disc disease Depression Overactive bladder Restless leg syndrome Peripheral neuropathy Surgical History History of gynecologic surgery History of surgery Hx of shoulder surgery H/O laminectomy History of carpal tunnel release of both wrists Hx of elbow surgery Hx of hysterectomy Hx of left knee surgery Hx of arthroscopy of left knee Hx of abdominal surgery H/O LEEP History of intestinal surgery Hx of appendectomy Family History (Updated 01/03/25 @ 14:44 by Ruby Jimenez) Mother No problems noted. Father No problems noted. Social History (Updated 01/03/25 @ 14:42 by Ruby Jimenez) Alcohol intake: current Alcohol intake frequency: holidays/special occasions only Patient Tobacco Use Status: Former Tobacco user Substance Use Type: Marijuana Review of Systems Const Denies weakness ENT Denies dizziness Card Reports chest pain, Denies chest pain with activity, Denies syncope, Denies rapid heart rate, Denies pedal edema, Denies edema, Denies leg edema, Denies lightheadedness, Reports palpitations, Denies dyspnea, Denies dyspnea on exertion and Denies orthopnea Resp Denies cough, Denies dyspnea and Denies dyspnea on exertion GI Denies hematochezia and Denies change in stool character Musc Denies abnormal gait, Denies muscle cramps, Denies muscle weakness, Denies numbness, Denies radiating pain into limb and Denies tingling Neuro Denies abnormal gait, Denies dizziness, Denies syncope, Denies numbness, Denies tingling and Denies weakness Endo Reports palpitations Physical Exam Vital Signs: Last Vital Signs Pulse 64 01/03/25 14:32 BP 128/78 01/03/25 14:32 BMI result Body Mass Index 30.3 Const General: comfortable and no acute distress Orientation/consciousness: patient oriented x3 HEENT Other: Unremarkable Head: Yes normal to inspection Neck Neck: Yes normal visual inspection Chest Chest palpation & inspection: normal inspection of the chest Resp Auscultation: clear to auscultation bilaterally Cardio Palpation: normal PMI Heart sounds: S1 normal heart sound present, S2 normal heart sound present, no gallops, Murmur heart sound present systolic II/ and at the right sternal border and no rubs GI Palpation (GI): Soft to palpation Back/Spine/Pelvis Other: unremarkable Skin General skin exam: no rashes or lesions noted Neuro General: patient oriented x3 Extrem General: Yes normal to inspection Psych Mental Status: mental status grossly normal Office Procedures EKG Details: EKG with underlying sinus rhythm at 64/Min; no significant ST-T changes; [place]. [id number], Complete Assessment & Plan Assessment & Plan (1) Non-rheumatic aortic stenosis: Code(s): I35.0 - Nonrheumatic aortic (valve) stenosis Category: Medical Plan Echocardiogram reviewed. LVEF 60%. Moderate aortic valve calcification with mild stenosis. [id number] regurgitation. Probable bicuspid aortic valve. The previous study was from 2023-somewhat similar findings. Pathophysiology, symptoms, management of aortic stenosis discussed with patient. At the current time, observation only. We will recheck her echocardiogram in one year. If any interim cardiac concerns, she will contact us immediately. Discussed in detail. Discussion Notes I discussed with the patient that her heart function appeared normal per the echocardiogram. The significance of the identified murmur related to the aortic valve was explained, emphasizing the monitoring strategy and potential future need for intervention. I assured her no urgent cardiac intervention was necessary at this time. Encouraged her to report new or worsening symptoms promptly. Agreed to schedule a follow-up echocardiogram in a year. Patient was informed and verbally consented to the use of an ambient scribe for clinic note documentation during this visit. Orders: Orders CA echo transthoracic complete 1 Year I35.0 - Nonrheumatic aortic (valve) stenosis Patient Instructions: - Your heart function is normal; no immediate action is needed. - Monitor your heart annually to check for changes. - If you notice any new issues, like difficulty breathing, contact us. - Stay in touch with your doctors about your pain management. - We will arrange to see you again in a year for an echo. Coding Level of Care Code New Pt Level 4 (09125) Diagnoses Non-rheumatic aortic stenosis I35.0 CPT Codes EKG - CPT: 27940-Papeqgbxosqvbklhm, Complete ([id number])
[2025-01-03 14:32] VITALS: BP 128/78; PULSE 64; BMI 30.3
--- OUTSIDE RECORDS SUMMARY | 2025-01-03 14:34 | XMS_ITS | Clinical Summary ---
Author Organization [facility] Address [address] [place] [address] Phone Care Team Providers Care Electrolytic De Scaler Name Role Phone Johann Trujillo MD Primary Care Provider [phone] Allergies Active Allergy Reactions Criticality Noted Date [...] METABOLIC PANEL STAT 09/05/2024 4:29 PM EST [facility] SCREENING DIGITAL Routine 01/23/2022 4:44 PM EDT Encounter for screening mammogram for malignant neoplasm of breast [facility] DEXA AXIAL SKELETON Routine 10/30/2019 8:08 AM EDT Encounter for screening for osteoporosis from Last 3 Months or Most Recently Relevant to Health Maintenance Results * Comprehensive metabolic panel (09/05/2024 4:29 PM EST) Sodium 140 133 - 145 mmol/L LAB CHEMISTRY METHOD 09/05/2024 5:21 PM [facility] Potassium 4.5 3.5 - 5.5 mmol/L LAB CHEMISTRY METHOD 09/05/2024 5:21 PM [facility] Chloride 110 96 - 110 mmol/L LAB CHEMISTRY METHOD 09/05/2024 5:21 PM [facility] CO2 26 21 - 32 mmol/L LAB CHEMISTRY METHOD 09/05/2024 5:21 PM [facility] Anion Gap 4 3 - 11 LAB CHEMISTRY METHOD 09/05/2024 5:21 PM [facility] Glucose 95 70 - 100 mg/dL LAB CHEMISTRY METHOD 09/05/2024 5:21 PM [facility] BUN 16 5 - 25 mg/dL LAB CHEMISTRY METHOD 09/05/2024 5:21 PM [facility] Creatinine 0.98 0.50 - 1.10 mg/dL LAB CHEMISTRY METHOD 09/05/2024 5:21 PM [facility] eGFR 68 >=60 mL/min/1. 73m2 LAB CHEMISTRY METHOD 09/05/2024 5:21 PM [facility] Comment:Calculation based on the??Chronic Kidney Disease Epidemiology Collaboration (CKD-EPI) equation refit??without adjustment for race. BUN/Creatinine Ratio 16.3 LAB CHEMISTRY METHOD 09/05/2024 5:21 PM [facility] Calcium 9.0 8.5 - 10.5 mg/dL LAB CHEMISTRY METHOD 09/05/2024 5:21 PM [facility] AST (SGOT) 22 10 - 42 unit/L LAB CHEMISTRY METHOD 09/05/2024 5:21 PM [facility] ALT (SGPT) 27 10 - 60 unit/L LAB CHEMISTRY METHOD 09/05/2024 5:21 PM [facility] Alkaline Phosphatase 50 42 - 121 unit/L LAB CHEMISTRY METHOD 09/05/2024 5:21 PM [facility] Total Protein 6.8 6.0 - 8.0 g/dL LAB CHEMISTRY METHOD 09/05/2024 5:21 PM [facility] Albumin 3.8 3.2 - 5.0 g/dL LAB CHEMISTRY METHOD 09/05/2024 5:21 PM [facility] Total Bilirubin 0.3 0.0 - 1.4 mg/dL LAB CHEMISTRY METHOD 09/05/2024 5:21 PM [facility] Blood Venous blood specimen / Unknown Venipuncture / Unknown 09/05/2024 4:29 PM EST 09/05/2024 4:51 PM EST us Harris Fay MD LAB BLOOD ORDERABLES Final Resu lt [facility] [address] [place] [address], * [facility] SCREENING DIGITAL (01/23/2022 4:44 PM EDT) Anatomical Region Laterality Modality Mammography 01/23/2022 11:1 5 AM EDT Narrative 01/23/2022 4:[address] [facility] Diagnostic Imaging Department [address] [place] [address] Patient: ??EDU SUÁREZ ?/Age/Sex: 1965 - - Unit#: ??[id number] ? Location/Status: ??SPDIMAM/REG CLI ? Mnemonic/Ordering Site: ??DIGSC/SPMAM Ordering Physician: ??KATHERIN ALVARADO MD [facility] Screening Digital - 01/23/22 - 1154 History: Bilateral breast cancer screening. Technique: ??Digital mammography. Conventional CC and MLO projections with tomosynthesis MLO views and computer aided detection. Comparison: [facility] 01/27/2021 dating back to 02/10/2016. Findings: ?? Breast tissue consists of fatty and fibroglandular elements (category b density) bilaterally (as calculated by [employer] software). There is no suspicious group of microcalcifications, mass, architectural distortion or suspicious change in breast tissue density. Impression: No evidence of malignancy. BIRADS category 1; negative study, 3341F 35157, 41139 Note: Patient information entered into a reminder system with a target due date for the next mammogram: ??CPT II 7025F Dictating Physician: ??CANDELARIO ENRIQUEZ MD Electronically Signed by: ??CANDELARIO ENRIQUEZ MD Dic Date/Time: ??01/23/22 1640 Sign date/Time: ??01/23/22 1644 Procedure Note Candelario Enriquez MD - 08/12/2022 [facility] Diagnostic Imaging Department [address] [place] [address] Patient: EDU SUÁREZ Ellen /Age/Sex: 1965 - 56 - F Unit#: [id number] [facility]/Ordering Site: [facility] Ordering Physician: KATHERIN ALVARADO MD [facility] Screening Digital - 01/23/22 - 1154 History: Bilateral breast cancer screening. Technique: Digital mammography. Conventional CC and MLO projectionswith tomosynthesis MLO views and computer aided detection. Comparison: [facility] 01/27/2021 dating back to 02/10/2016. Findings: Breast tissue consists of fatty and fibroglandular elements (category b density) bilaterally (as calculated by [employer]). There is no suspicious group of microcalcifications, mass, architectural distortion or suspicious change in breast tissue density. Impression: No evidence of malignancy. BIRADS category 1; negative study, 3341F 13916, 44433 Note: Patient information entered into a reminder system with a target duedate for the next mammogram: CPT II 7025F Dictating Physician: CANDELARIO ENRIQUEZ MD Electronically Signed by: CANDELARIO ENRIQUEZ MD Dic Date/Time: 01/23/22 1640 Sign date/Time: 01/23/22 5384 us Katherin Alvarado MD IMG BI PROCEDURES Final Resu lt * [facility] DEXA AXIAL SKELETON (10/30/2019 8:08 AM EDT) Anatomical Region Laterality Modality Mammography 10/30/2019 7:36 AM EDT Narrative 10/30/2019 8:[address] [facility] Diagnostic Imaging Department [address] [place] [address] Patient: ??EDU SUÁREZ ?/Age/Sex: 1965 - 53 - F Unit#: ??[id number] ? Location/Status: ??SPDIMAM/REG CLI ? Mnemonic/Ordering Site: ??MAMDEXAAX/SPMAM Ordering Physician: ??GERARDO LUX MD [facility] Dexa Axial Skeleton - 10/30/19 4921 HISTORY: ??The patient is a 53-year-old postmenopausal [...] probability of hip fracture of 1.2%. Code 05901 Dictating Physician: ??GABRIELLA PIERRE MD Electronically Signed by: ??GABRIELLA PIERRE MD Dic Date/Time: ??10/30/19 0806 Sign date/Time: ??10/30/19 0808 Procedure Note Gabriella Pierre - 08/11/2022 [facility] Diagnostic Imaging Department [address] [place] [address] Patient: EDU SUÁREZ Ellen /Age/Sex: 1965 - 53 - F Unit#: [id number] Location/Status: SPDIMA/REG CLI [facility] Ordering Physician: GERARDO LUX MD [facility] Dexa Axial Skeleton - 10/30/19 - 3899 HISTORY: The patient is a 53-year-old postmenopausal [...] density of the femurs bilaterally is 0.796 gm/[id number] is 79% of that of young normals [...] probability of hip fracture of 1.2%. Code 56996 Dictating Physician: GABRIELLA PIERRE MD Electronically Signed by: GABRIELLA PIERRE MD Dic Date/Time: 10/30/19 0806 Sign date/Time: 10/30/19 0808 Gerardo Lux MD IMG BI PROCEDURES Final Result from Last 3 Months or Most Recently Relevant to Health Maintenance Insurance MEDICAID - [place] Care Teams Electrolytic De Scaler Relationship Specialty Start Date End Date Johann Trujillo MD [address] [facility] [place] PCP - General Internal Medicine 09/06/24
== END 2025-01-03 15:04 | disposition home or self-care (01) ==
LOC: HO.HCS 14:31
PROVIDERS: PCP Internal Medicine; Visit Provider Internal Medicine
DX: I35.0 Nonrheumatic aortic (valve) stenosis (principal)
CPT/HCPCS: 93010; 99214

== ENCOUNTER → 2025-01-03 14:30 | Outpatient (BNVA) | payer MEDICAID, SELFPAY | PROVIDERS: PCP Internal Medicine; Visit Provider Internal Medicine | DX: I35.0 Nonrheumatic aortic (valve) stenosis (principal); R01.1 Cardiac murmur, unspecified; R06.02 Shortness of breath; Z87.891 Personal history of nicotine dependence | CPT/HCPCS: 93005; 99212 ==

== ENCOUNTER 2025-01-05 11:57 | Emergency (ER) | payer MEDICAID, SELFPAY ==
--- NOTE | ~2025-01-05 | CT_ITS ---
CLINICAL HISTORY: Right-sided abdominal pain hx of abdominal surgery CT abdomen and pelvis with contrast Comparison: CT - CT ABDOMEN PELVIS W IV CON - 01/05/25 16:51 EDT MR - MR PELVIS WO/W CON - 10/23/24 13:00 EST Findings: No consolidation or effusion. 52 mm fat containing right posterior hemidiaphragmatic hernia. The gallbladder and solid organs are within normal limits. No renal stones. No bowel obstruction, pneumoperitoneum, or pneumatosis. Pelvic contents unremarkable. Appendix is not seen. No acute fracture. IMPRESSION: No acute findings. This document has been electronically signed by: Yossi Vanegas MD on 01/05/2025 17:25:00
[2025-01-05 12:10] VITALS: BP 128/55; PULSE 61; RESP 18; TEMP 37.1; O2SAT 98; BMI 32.0
--- OUTSIDE RECORDS SUMMARY | 2025-01-05 12:59 | XMS_ITS | Clinical Summary ---
Author Organization [facility] Address [address] [place] [address] Phone Care Team Providers Care Book Jacket Cover Machine Operator Name Role Phone Johann Trujillo MD Primary Care Provider [phone] Allergies Active Allergy Reactions Criticality Noted Date [...] METABOLIC PANEL STAT 09/05/2024 4:29 PM EST [facility] SCREENING DIGITAL Routine 01/23/2022 4:44 PM EDT Encounter for screening mammogram for malignant neoplasm of breast [facility] DEXA AXIAL SKELETON Routine 10/30/2019 8:08 AM EDT Encounter for screening for osteoporosis from Last 3 Months or Most Recently Relevant to Health Maintenance Results * Comprehensive metabolic panel (09/05/2024 4:29 PM EST) Sodium 140 133 - 145 mmol/L LAB CHEMISTRY METHOD 09/05/2024 5:21 PM [facility] Potassium 4.5 3.5 - 5.5 mmol/L LAB CHEMISTRY METHOD 09/05/2024 5:21 PM [facility] Chloride 110 96 - 110 mmol/L LAB CHEMISTRY METHOD 09/05/2024 5:21 PM [facility] CO2 26 21 - 32 mmol/L LAB CHEMISTRY METHOD 09/05/2024 5:21 PM [facility] Anion Gap 4 3 - 11 LAB CHEMISTRY METHOD 09/05/2024 5:21 PM [facility] Glucose 95 70 - 100 mg/dL LAB CHEMISTRY METHOD 09/05/2024 5:21 PM [facility] BUN 16 5 - 25 mg/dL LAB CHEMISTRY METHOD 09/05/2024 5:21 PM [facility] Creatinine 0.98 0.50 - 1.10 mg/dL LAB CHEMISTRY METHOD 09/05/2024 5:21 PM [facility] eGFR 68 >=60 mL/min/1. 73m2 LAB CHEMISTRY METHOD 09/05/2024 5:21 PM [facility] Comment:Calculation based on the??Chronic Kidney Disease Epidemiology Collaboration (CKD-EPI) equation refit??without adjustment for race. BUN/Creatinine Ratio 16.3 LAB CHEMISTRY METHOD 09/05/2024 5:21 PM [facility] Calcium 9.0 8.5 - 10.5 mg/dL LAB CHEMISTRY METHOD 09/05/2024 5:21 PM [facility] AST (SGOT) 22 10 - 42 unit/L LAB CHEMISTRY METHOD 09/05/2024 5:21 PM [facility] ALT (SGPT) 27 10 - 60 unit/L LAB CHEMISTRY METHOD 09/05/2024 5:21 PM [facility] Alkaline Phosphatase 50 42 - 121 unit/L LAB CHEMISTRY METHOD 09/05/2024 5:21 PM [facility] Total Protein 6.8 6.0 - 8.0 g/dL LAB CHEMISTRY METHOD 09/05/2024 5:21 PM [facility] Albumin 3.8 3.2 - 5.0 g/dL LAB CHEMISTRY METHOD 09/05/2024 5:21 PM [facility] Total Bilirubin 0.3 0.0 - 1.4 mg/dL LAB CHEMISTRY METHOD 09/05/2024 5:21 PM [facility] Blood Venous blood specimen / Unknown Venipuncture / Unknown 09/05/2024 4:29 PM EST 09/05/2024 4:51 PM EST us Harris Fay MD LAB BLOOD ORDERABLES Final Resu lt [facility] [address] [place] [address], * TERELL SCREENING DIGITAL (01/23/2022 4:44 PM EDT) Anatomical Region Laterality Modality Mammography 01/23/2022 11:1 5 AM EDT Narrative 01/23/2022 4:44 PM EDT [facility] Diagnostic Imaging Department [address] [place] [id number] Patient: ??EDU SUÁREZ ?/Age/Sex: 1965 - - Unit#: ??[id number] ? Location/Status: ??SPDIMAM/REG CLI ? Mnemonic/Ordering Site: ??DIGSC/SPMAM Ordering Physician: ??KATHERIN ALVARADO MD [facility] Screening Digital - 01/23/22 - 1154 History: Bilateral breast cancer screening. Technique: ??Digital mammography. Conventional CC and MLO projections with tomosynthesis MLO views and computer aided detection. Comparison: [facility] 01/27/2021 dating back to 02/10/2016. Findings: ?? Breast tissue consists of fatty and fibroglandular elements (category b density) bilaterally (as calculated by [facility] software). There is no suspicious group of microcalcifications, mass, architectural distortion or suspicious change in breast tissue density. Impression: No evidence of malignancy. BIRADS category 1; negative study, 3341F 50898, 51642 Note: Patient information entered into a reminder system with a target due date for the next mammogram: ??CPT II 7025F Dictating Physician: ??CANDELARIO ENRIQUEZ MD Electronically Signed by: ??CANDELARIO ENRIQUEZ MD Dic Date/Time: ??01/23/22 1640 Sign date/Time: ??01/23/22 1644 Procedure Note Candelario Enriquez MD - 08/12/2022 [facility] Diagnostic Imaging Department [address] [place] [address] Patient: EDU SUÁREZ Ellen /Age/Sex: 1965 - 56 - F Unit#: [id number] [facility]/Ordering Site: [facility] Ordering Physician: KATHERIN ALVARADO MD [facility] Screening Digital - 01/23/22 - 1154 History: Bilateral breast cancer screening. Technique: Digital mammography. Conventional CC and MLO projectionswith tomosynthesis MLO views and computer aided detection. Comparison: [facility] 01/27/2021 dating back to 02/10/2016. Findings: Breast tissue consists of fatty and fibroglandular elements (category b density) bilaterally (as calculated by [employer]). There is no suspicious group of microcalcifications, mass, architectural distortion or suspicious change in breast tissue density. Impression: No evidence of malignancy. BIRADS category 1; negative study, 3341F 33559, 13547 Note: Patient information entered into a reminder system with a target duedate for the next mammogram: CPT II 7025F Dictating Physician: CANDELARIO ENRIQUEZ MD Electronically Signed by: CANDELARIO ENRIQUEZ MD Dic Date/Time: 01/23/22 1640 Sign date/Time: 01/23/22 2884 us Katherin [place] MD IMG BI PROCEDURES Final Resu lt * [facility] DEXA AXIAL SKELETON (10/30/2019 8:08 AM EDT) Anatomical Region Laterality Modality Mammography 10/30/2019 7:36 AM EDT Narrative 10/30/2019 8:08 AM EDT [facility] Diagnostic Imaging Department [address] [place] [address] Patient: ??EDU SUÁREZ ?/Age/Sex: 1965 - 53 - F Unit#: ??[id number] ? Location/Status: ??SPDIMAM/REG CLI ? Mnemonic/Ordering Site: ??MAMDEXAAX/SPMAM Ordering Physician: ??GERARDO LUX MD [facility] Dexa Axial Skeleton - 10/30/19 8658 HISTORY: ??The patient is a 53-year-old postmenopausal [...] probability of hip fracture of 1.2%. Code 25615 Dictating Physician: ??GABRIELLA PIERRE MD Electronically Signed by: ??GABRIELLA PIERRE MD Dic Date/Time: ??10/30/19 0806 Sign date/Time: ??10/30/19 0808 Procedure Note Gabriella Pierre - 08/11/2022 [facility] Diagnostic Imaging Department [address] [place] [address] Patient: EDU SUÁREZ Ellen /Age/Sex: 1965 - 53 - F Unit#: [id number] Location/Status: SPDIMA/REG CLI [facility] Ordering Physician: GERARDO LUX MD [facility] Dexa Axial Skeleton - 10/30/19 - 1572 HISTORY: The patient is a 53-year-old postmenopausal [...] density of the femurs bilaterally is 0.796 gm/ke9wybpk is 79% of that of young normals [...] probability of hip fracture of 1.2%. Code 16575 Dictating Physician: GABRIELLA PIERRE MD Electronically Signed by: GABRIELLA PIERRE MD Dic Date/Time: 10/30/19 0806 Sign date/Time: 10/30/19 0808 Gerardo Lux MD IMG BI PROCEDURES Final Result from Last 3 Months or Most Recently Relevant to Health Maintenance Insurance MED[place] - [place] Care Teams Book Jacket Cover Machine Operator Relationship Specialty Start Date End Date Johann Trujillo MD [address] [facility] [place] PCP - General Internal Medicine 09/06/24
--- NOTE | 2025-01-05 13:10 | ED_ITS ---
HPI - General Adult General Chief complaint: General Medical Stated complaint: ABD PAIN Time Seen by Provider: 01/05/25 12:13 History of Present Illness HPI narrative: Patient is a 59-year-old female with multiple abdominal surgery done in the past with a history of adhesion in the past presented today with having abdominal pain. The abdominal pain is worse over the right abdomen. There is a question of a mass of adhesion. Patient denies any fever chills. No nausea no vomiting. No diarrhea no change in bowel movements passing gas pain is episodic very sharp. Started at approximately 10:00 this morning. There is no coughing or congestion no respiratory symptoms. No dysuria. Related Data Home Medications ?Medication ?Instructions ?Recorded ?Confirmed bupropion HCl 150 mg tablet,12 hr 150 mg PO BID 07/26/23 01/03/25 sustained-release calcium carbonate 600 mg PO DAILY 07/26/23 01/03/25 cholecalciferol (vitamin D3) 25 25 mcg PO DAILY 07/26/23 01/03/25 mcg (1,000 unit) capsule magnesium 250 mg tablet 500 mg PO DAILY 07/26/23 01/03/25 pramipexole 0.125 mg tablet 0.375 mg PO BEDTIME 09/23/23 01/03/25 metoprolol succinate 50 mg 50 mg PO DAILY 10/15/23 01/03/25 tablet,extended release 24 hr diazepam 2 mg tablet 2 mg PO TID 10/22/23 01/03/25 gabapentin 600 mg tablet 600 mg PO BID 10/22/23 01/03/25 duloxetine 30 mg capsule,delayed 30 mg PO DAILY 02/07/24 01/03/25 release mirabegron 50 mg tablet,extended 50 mg PO DAILY 02/07/24 01/03/25 release 24 hr (Myrbetriq) alendronate 70 mg tablet 70 mg PO QWEEK 02/29/24 01/03/25 omeprazole 20 mg capsule,delayed 20 mg PO BID 02/29/24 01/03/25 release topiramate 50 mg tablet mg PO 06/09/24 01/03/25 donepezil 10 mg tablet 10 mg PO BEDTIME 09/21/24 01/03/25 Previous Rx's ?Medication ?Instructions ?Recorded hydrocodone 5 mg-acetaminophen 325 1 tab PO BID PRN pain #10 tabs 01/05/25 mg tablet Allergies Allergy/AdvReac Type Severity Reaction Status Date / Time codeine AdvReac Intermediate Vomiting Verified 01/05/25 12:15 silver AdvReac red itchy Verified 01/05/25 12:15 [From Tegaderm AG Mesh] rash Review of Systems 2 Review of Systems: Positive abdominal pain Yes all other systems are reviewed and are negative PMFSH Past Medical History Attestation statement: The following information was validated with the patient. Medical History Hx of pilonidal cyst Degenerative disc disease, cervical Tinnitus of left ear Adenomyosis of uterus Bilateral breast cysts Sleep apnea Short-term memory loss Rheumatoid arthritis Osteoporosis SI (sacroiliac) joint dysfunction Hidradenitis suppurativa Occipital neuralgia Fibromyalgia HTN (hypertension) Lumbar disc disease Depression Overactive bladder Restless leg syndrome Peripheral neuropathy Surgical History History of gynecologic surgery History of surgery Hx of shoulder surgery H/O laminectomy History of carpal tunnel release of both wrists Hx of elbow surgery Hx of hysterectomy Hx of left knee surgery Hx of arthroscopy of left knee Hx of abdominal surgery H/O LEEP History of intestinal surgery Hx of appendectomy Family History Family History Mother No problems noted. Father No problems noted. Social History Social History Alcohol intake: former Patient Tobacco Use Status: Former Tobacco user Smoked in Last 30 Days: No Use of substances other than those prescribed or required for medical reasons: No Substance Use Type: Marijuana Advance Directives: No Advance Directives Information Provided: Yes Physical Exam ED Vital Signs: Vital Signs - 24 hr 01/05/25 12:10 01/05/25 14:12 01/05/25 16:00 Temperature 98.7 F 98.2 F 98.1 F Pulse Rate 61 61 56 Respiratory Rate 18 15 16 Blood Pressure 128/55 L 119/59 L 135/64 Pulse Oximetry 98 95 97 Oxygen Delivery Method Room Air Room Air 01/05/25 18:00 Temperature 97.8 F Pulse Rate 65 Respiratory Rate 16 Blood Pressure 133/66 Pulse Oximetry 100 Oxygen Delivery Method Room Air BMI result Body Mass Index 32.0 Appearance: Alert. Oriented X3. No acute distress. Eyes: Pupils equal, round and reactive to light. ENT: Pharynx normal. Neck: Normal inspection. Neck supple. No lymph nodes noted. No crepitus CVS: Normal heart rate and rhythm. Pulses normal. Normal S1 and S2 Respiratory: No respiratory distress. Breath sounds normal. No Wheezing. No rales Abdomen: Soft and nontender. No rigidity. No distention. good BS x4 Skin: Skin warm and dry. Normal skin color. Normal skin turgor. Extremities: No lower extremity edema. Neurovascular intact to all extremities. No Lacerations. No Rash Neuro: Oriented X 3. No motor deficit. No sensory deficit. Moving all extermities. No slurred speech Medications Administered Discontinued Medications Generic Name Dose Route Start Last Admin Trade Name Freq PRN Reason Stop Dose Admin Diatrizoate Meglum/Diatrizoate Sod 30 ml 01/05/25 17:01 01/05/25 17:01 Diatrizoate Meglumine, Sodium 30 Ml Solution PO 01/05/25 17:02 30 ml ONCE ONE Administration Hydromorphone HCl 0.5 mg 01/05/25 13:07 01/05/25 13:14 Hydromorphone Hcl 0.5 Mg/0.5 Ml Syringe IVPUSH 01/05/25 13:08 0.5 mg ONCE ONE Administration Protocol Sodium Chloride 1,000 mls @ 999 mls/hr 01/05/25 13:15 01/05/25 15:06 Ns IV 01/05/25 14:15 Infused .Q1H1M NALINI Infusion Iohexol 100 ml 01/05/25 17:00 01/05/25 17:00 Iohexol 350 Mg/Ml 100 Ml Infus..Btl IV 01/05/25 17:01 85 ml ONCE ONE Administration Ondansetron HCl 4 mg 01/05/25 13:07 01/05/25 13:14 Ondansetron Hcl 4 Mg/2 Ml Vial IVPUSH 01/05/25 13:08 4 mg ONCE ONE Administration Medical Decision Making Medical Decision Making MDM Narrative: Patient's previous old record reviewed. Multitude of abdominal surgery in the past has a history of ovarian cysts and then require surgery in the past. Had history of obstructions in the past presented today with having abdominal pain on the right side no nausea no vomiting. Patient is white count was 11.6. Lactate was normal no signs of bowel ischemia. BUN creatinine is normal at 20 and 0.7. Patient's LFTs are normal but lipase was 190. CT scan would help us determine if patient has pancreatitis. Urine showed no signs of infection. Blood pressure has been stable currently pending CT scan. I received sign-out from my colleague Dr. Lange patient's CT scan does not show any acute Findings patient's vitals stable overall patient feeling a bit better. per Dr. Cortes' request, we will give her Vicodin script for 5 days Differential Diagnosis Differential Diagnoses: The differential diagnosis associated with the presentation includes Obstruction, appendicitis, partial small-bowel Admission/Observation Consideration of admission/observation: Escalation of care including admission/observation considered Lab Data MDM Lab Attestation statement: I reviewed the patient's lab results. 01/05/25 13:23 01/05/25 13:23 Labs: Lab Results 01/05/25 01/05/25 Range/Units 13:14 13:23 WBC 11.6 H (4.8-10.8) X10*3/uL RBC 4.07 L (4.20-5.50) X10*6/uL Hgb 12.2 (12.0-16.0) g/dl Hct 37.0 (37.0-47.0) % MCV 90.9 (80.0-98.0) fL MCH 30.0 (27.0-33.0) pg MCHC 33.0 (31.0-35.0) g/dl RDW 13.6 (11.0-16.0) % Plt Count 284 (160-400) X10*3/uL MPV 9.4 (9.4-12.3) fL Immature Gran % (Auto) 0.2 (0.0-0.4) % Neut % (Auto) 53.0 (45-73) % Lymph % (Auto) 36.6 (20-40) % Stan[place] % (Auto) 8.6 (2-11) % Eos % (Auto) 1.1 (0-4) % Baso % (Auto) 0.5 (0-2) % Lymph # (Auto) 4.2 (1.2-4.9) X10*3/uL Stan[place] # (Auto) 1.0 (0.1-1.2) X10*3/uL Eos # (Auto) 0.1 (0.0-0.4) X10*3/uL Baso # (Auto) 0.1 (0.0-0.2) X10*3/uL Abs Immat Gran (auto) 0.02 (0.00-0.03) X10*3/uL Absolute Neuts (auto) 6.1 (2.0-8.3) x10*3/uL Absolute Nucleated RBC 0.000 (0.0-0.012) X10*3/uL Nucleated RBC % (auto) 0.0 (0.0-0.2) /100WBC Smear Tech's Comments VERIFIED Sodium 141 (135-145) mmol/L Potassium 4.0 (3.3-5.1) mmol/L Chloride 112 H (96-108) mmol/L Carbon Dioxide 25 (22-29) mmol/L Anion Gap 8 L (12-20) BUN 20 H (9-16) mg/dL Creatinine 0.74 (0.5-1.4) mg/dL Estim Creat Clear Calc 88.2 Estimated GFR > 60 Random Glucose 90 (60-115) mg/dL Lactic Acid 0.9 (0.5-2.0) mmol/L Calcium 9.1 (8.4-10.2) mg/dL Total Bilirubin 0.3 (0.0-1.0) mg/dL Direct Bilirubin 0.1 (0.0-0.5) mg/dL AST 20 (5-31) U/L ALT 17 (0-31) U/L Alkaline Phosphatase 58 (39-117) U/L Total Protein 6.7 (6.5-8.0) g/dL Albumin 4.0 (3.5-5.0) g/dL Lipase 190 H (8-78) U/L Urine Color Yellow Urine Appearance Turbid Urine pH 7.5 (5.0-9.0) Ur Specific [place] 1.015 (1.005-1.025) Urine Protein Negative (Neg-Trace) mg/dL Urine Glucose (UA) Negative (Negative) mg/dL Urine Ketones Negative (Negative) mg/dL Urine Blood Negative (Negative) Urine Nitrite Negative (Negative) Ur Leukocyte Esterase Negative (Negative) Urine RBC 0-2 (0-2) /HPF Urine WBC 0-5 (0-5) /HPF Ur Squamous Epith Cells 0-2 (0-2) /HPF Urine Bacteria None Seen (None Seen) Hyaline Casts 0-2 (0-2) /LPF Independent Interpretation I performed an independent interpretation of an: CT Scan Radiology Impression Discussion of test interpretation with radiology: I have reviewed the radiologist's reading. Radiologist Impression: No consolidation or effusion. 52 mm fat containing right posterior hemidiaphragmatic hernia. The gallbladder and solid organs are within normal limits. No renal stones. No bowel obstruction, pneumoperitoneum, or pneumatosis. Pelvic contents unremarkable. Appendix is not seen. No acute fracture. IMPRESSION: No acute findings. External Record Review External record reviewed: Office record (Previous pain management note reviewed) Chronic Conditions History of small-bowel obstruction Previous history of abdominal surgery Critical Care Time Critical Care Time Critical Care Time: Yes Total Critical Care Time: 35 Attestation: I have personally provided critical care time. Time includes review of lab data, radiology results, discussion with consultants, and monitoring for potential decompensation. Intervention performed as documented. Discharge Plan Discharge Clinical Impression: Abdominal pain Patient Disposition: Home, Self-Care Instructions: Chronic Abdominal Pain (DC) Additional Instructions: Please follow-up with your primary care physician tomorrow. If you have any worsening or new symptoms, please return to the emergency room or call 911 Prescriptions: New hydrocodone-acetaminophen 5-325 mg tablet 1 tab PO BID PRN (Reason: pain) Qty: 10 0RF Rx Instructions: Partial Fill upon patient request. No Action bupropion HCl 150 mg tablet sustained-release 12 hr 150 mg PO BID magnesium 250 mg tablet 500 mg PO DAILY calcium carbonate 600 mg calcium (1,500 mg) tablet 600 mg PO DAILY cholecalciferol (vitamin D3) 25 mcg (1,000 unit) capsule 25 mcg PO DAILY gabapentin 600 mg tablet 600 mg PO BID diazepam 2 mg tablet 2 mg PO TID pramipexole 0.125 mg tablet 0.375 mg PO BEDTIME metoprolol succinate 50 mg tablet extended release 24 hr 50 mg PO DAILY duloxetine 30 mg capsule,delayed release(DR/EC) 30 mg PO DAILY Myrbetriq 50 mg tablet extended release 24 hr 50 mg PO DAILY omeprazole 20 mg capsule,delayed release(DR/EC) 20 mg PO BID alendronate 70 mg tablet 70 mg PO QWEEK topiramate 50 mg tablet PO donepezil 10 mg tablet 10 mg PO BEDTIME Print Language: Micronesian
[2025-01-05] MEDS: HYDROmorphone HCl 0.5 MG/0.5 ML SYRINGE IVPUSH (13:14)
[2025-01-05] MEDS: 0.9 % Sodium Chloride 1,000 ML 999 ML IV (13:14)
[2025-01-05] MEDS: ondansetron HCL 4 MG/2 ML VIAL IVPUSH (13:14)
[2025-01-05 13:26] LABS: Appearance Urine Turbid; Color Urine Yellow; Glucose Urine UA Negative (Negative); Leukocyte Esterase Urine Negative (Negative); Nitrite Urine Negative (Negative); PH 7.5 (5.0-9.0); Specific Gravity - Urine 1.015 (1.005-1.025); Urine Blood Negative (Negative); Urine Ketones Negative (Negative); Urine Protein Negative (Neg-Trace)
[2025-01-05 13:28] LABS: Bacteria Urine None Seen (None Seen); Hyaline Casts Urine 0-2 /LPF (0-2); RBC Urine 0-2 /HPF (0-2); Squamous Epithelial Cell Urine 0-2 /HPF (0-2); WBC Urine 0-5 /HPF (0-5)
[2025-01-05 13:32] LABS: Basophils Absolute Auto 0.1 X10*3/uL (0.0-0.2); Basophils Percent Auto 0.5 % (0-2); Eosinophils Absolute Auto 0.1 X10*3/uL (0.0-0.4); Eosinophils Percent Auto 1.1 % (0-4); Hemoglobin 12.2 g/dl (12.0-16.0); Imm Gran Abs Auto 0.02 X10*3/uL (0.00-0.03); Imm Gran Pct Auto 0.2 % (0.0-0.4); Lymphocytes Absolute Auto 4.2 X10*3/uL (1.2-4.9); Lymphocytes Percent Auto 36.6 % (20-40); MANUAL DIFF FLAG SCAN; Mean Corpuscular Volume 90.9 fL (80.0-98.0); Mean Platelet Volume 9.4 fL (9.4-12.3); Monocytes Percent Auto 8.6 % (2-11); Neutrophils Absolute Auto 6.1 x10*3/uL (2.0-8.3); Platelet Count 284 X10*3/uL (160-400); Red Blood Count 4.07 X10*6/uL (4.20-5.50); Red Cell Distribution Width 13.6 % (11.0-16.0); SCAN SMEAR FLAG 1; White Blood Count 11.6 X10*3/uL (4.8-10.8)
[2025-01-05 13:49] LABS: Alanine Aminotransferase 17 U/L (0-31); Alkaline Phosphatase 58 U/L (39-117); Anion Gap 8 (12-20); Aspartate Amino Transferase 20 U/L (5-31); Bilirubin Direct 0.1 mg/dL (0.0-0.5); Bilirubin Total 0.3 mg/dL (0.0-1.0); Blood Urea Nitrogen 20 mg/dL (9-16); Calcium 9.1 mg/dL (8.4-10.2); Carbon Dioxide 25 mmol/L (22-29); Chloride 112 mmol/L (96-108); Creatinine Clr Calc Pharmacy 88.2; Estimated Glomerular Filt Rate > 60; Glucose Random 90 mg/dL (60-115); Lipase 190 U/L (8-78); Sodium 141 mmol/L (135-145); Total Protein 6.7 g/dL (6.5-8.0)
[2025-01-05 13:50] LABS: Lactic Acid 0.9 mmol/L (0.5-2.0)
[2025-01-05 13:56] LABS: SLIDE REVIEW VERIFIED
[2025-01-05 14:12] VITALS: BP 119/59; PULSE 61; RESP 15; TEMP 36.8; O2SAT 95
[2025-01-05 16:00] VITALS: BP 135/64; PULSE 56; RESP 16; TEMP 36.7; O2SAT 97
[2025-01-05] MEDS: iohexoL 350 MG/ML 100 ML INFUS..BTL IV (17:00)
[2025-01-05] MEDS: Diatrizoate Meglumine, Sodium 30 ML SOLUTION PO (17:01)
[2025-01-05 18:00] VITALS: BP 133/66; PULSE 65; RESP 16; TEMP 36.6; O2SAT 100
[2025-01-05 18:50] VITALS: BP 133/66; PULSE 65; RESP 16; TEMP 36.6; O2SAT 100
== END 2025-01-05 19:04 | disposition home or self-care (01) ==
PROVIDERS: Emergency Medicine Emergency Medical Services; Emergency Provider Emergency Medicine; PCP Internal Medicine
DX: R10.11 Right upper quadrant pain (principal); R10.2 Pelvic and perineal pain; R11.0 Nausea; Z79.899 Other long term (current) drug therapy; Z87.891 Personal history of nicotine dependence
CPT/HCPCS: 36415; 74177; 80048; 80076; 81001; 83605; 83690; 85025; 96361; 96374; 96375; 99284; J1171; J2405; Q9967

== ENCOUNTER → 2025-01-05 13:07 | Outpatient (BNV) | payer MEDICAID, SELFPAY | PROVIDERS: Emergency Provider Emergency Medicine; PCP Internal Medicine; Visit Provider Radiology Diagnostic Radiology | DX: K44.9 Diaphragmatic hernia without obstruction or gangrene (principal) | CPT/HCPCS: 74177 ==

== ENCOUNTER 2025-01-10 10:46 | Emergency (ER) | payer MEDICAID, SELFPAY ==
--- NOTE | ~2025-01-10 | CT_ITS ---
EXAMINATION: CT CERVICAL SPINE WITHOUT CONTRAST CLINICAL INFORMATION: Status post fall. COMPARISON: None available. TECHNIQUE: Contiguous axial images through the cervical spine using 3 mm collimation with bone and soft tissue algorithm. Sagittal and coronal reformatted images acquired. DLP: [address] examination was performed using dose optimization techniques as appropriate, variously including the following: *Automated exposure control *Adjustment of mA and/or kV according to patient size (this includes techniques or standardized protocols for targeted exams where dose is matched to indication/reason for exam; i.e. extremities or head) *Use of iterative reconstruction technique FINDINGS: Craniocervical junction is intact with normal alignment between the occipital condyles and lateral masses of C1. There is a grade 1 retrolisthesis C3-4. Multilevel small marginal osteophyte formation and endplate sclerosis subchondral cyst formation and decreased intervertebral disc height C3 T1 more pronounced at C4-5 and C6-7 levels. C1 is intact. C2 is intact. C3 is intact. C4 is intact. C5 is intact. The 6 is intact. C7 is intact. No gross prevertebral compartment hematoma. Calcified plaques in the carotid bulbs and proximal ICAs, bilaterally. Tympanic cavities and mastoid air cells are aerated. Calcified plaques in the cavernous supraclinoid segments both ICAs and the V3 segment right vertebral artery. CT/CT cervical spine wo IV con IMPRESSION: Multilevel cervical spondylosis resulting in grade 1 retrolisthesis C3-4. No acute fracture or trauma-related listhesis. Fleischner guidelines were followed. Electronically signed by: Delio Byrd MD 01/10/2025 12:13 PM EDT
--- NOTE | ~2025-01-10 | CT_ITS ---
EXAMINATION: CT HEAD WITHOUT CONTRAST CLINICAL INFORMATION: Fall, pain, head strike. COMPARISON: 09/28/23. TECHNIQUE: Contiguous axial imaging was performed from the skull base to vertex without intravenous administration of contrast. This CT examination was performed using dose optimization techniques as appropriate, variously including the following: *Automated exposure control *Adjustment of mA and/or kV according to patient size (this includes techniques or standardized protocols for targeted exams where dose is matched to indication/reason for exam; i.e. extremities or head) *Use of iterative reconstruction technique FINDINGS: There is no evidence of intracranial hemorrhage or extra-axial fluid collection. There is no mass effect, or edema. No CT evidence of acute territorial infarct. Ventricles, sulci, and cisterns are normal in size and configuration for patient age. No hydrocephalus. No midline shift. Negative hyperdense MCA sign. Negative insular ribbon sign. No significant white matter abnormalities. Normal pituitary. Mild atheromatous calcification of the bilateral carotid siphons and V4 segments vertebral arteries bilaterally. Globes and orbital contents image normally. There are bilateral lens replacements present. Extracranial soft tissues demonstrate foci of subcutaneous and cutaneous gas in the retroauricular soft tissues, probably secondary to laceration or penetrating injury. No underlying fracture. The paranasal sinuses, mastoid air cells, and tympanic cavities are normally aerated. No suspicious bony abnormalities. There are no acute fractures evident. CT/CT head/brain wo IV con IMPRESSION: 1. No acute intracranial abnormality. 2. There is subcutaneous gas in the right retroareolar soft tissues, likely on the basis of laceration or penetrating injury. Correlate clinically. 3. There are no fractures. The mastoids are aerated. Electronically signed by: Kin Jaime MD 01/10/2025 12:11 PM EDT
[2025-01-10 11:07] VITALS: BP 151/66; BP 172/74; PULSE 54; PULSE 57; RESP 16; TEMP 37; O2SAT 100; O2SAT 97; BMI 37.6
[2025-01-10 11:18] VITALS: BP 151/66; PULSE 57; RESP 16; TEMP 37; O2SAT 100
--- NOTE | 2025-01-10 11:44 | ED.FALL ---
HPI - Fall General Chief Complaint: Fall Stated Complaint: FALL T-1,HIT HEAD,SURG T-1 @MG,VO,WEAK,CONTROLLED Time Seen by Provider: 01/10/25 11:09 History of Present Illness ED Provider: HPI Narrative: Patient is presenting after a fall, the fall was yesterday, she has history of upper and lower back issues, history of occipital neuralgia, just had release of adhesions in the right occipital area right behind her ear, when she was home sounds like she fell backwards and struck the head on the counter, she is not on blood thinners, she spent 2 hours on the ground after that she was able to get up, she states she would have come in but when she called her friend who is a nurse she was told to come to the ER, she denies any headaches at this time, she does have pain in the occipital area, no numbness in upper or lower extremities, no vision changes no nausea no vomiting. She was also concerned to see how her postop areas looking after a fall. She denies LOC, was not sure if she passed out all this was a loss of footing. But has had no chest pain or shortness of breath or palpitations. Related Data Home Medications ?Medication ?Instructions ?Recorded ?Confirmed bupropion HCl 150 mg tablet,12 hr 150 mg PO BID 07/26/23 01/03/25 sustained-release calcium carbonate 600 mg PO DAILY 07/26/23 01/03/25 cholecalciferol (vitamin D3) 25 25 mcg PO DAILY 07/26/23 01/03/25 mcg (1,000 unit) capsule magnesium 250 mg tablet 500 mg PO DAILY 07/26/23 01/03/25 pramipexole 0.125 mg tablet 0.375 mg PO BEDTIME 09/23/23 01/03/25 metoprolol succinate 50 mg 50 mg PO DAILY 10/15/23 01/03/25 tablet,extended release 24 hr diazepam 2 mg tablet 2 mg PO TID 10/22/23 01/03/25 gabapentin 600 mg tablet 600 mg PO BID 10/22/23 01/03/25 duloxetine 30 mg capsule,delayed 30 mg PO DAILY 02/07/24 01/03/25 release mirabegron 50 mg tablet,extended 50 mg PO DAILY 02/07/24 01/03/25 release 24 hr (Myrbetriq) alendronate 70 mg tablet 70 mg PO QWEEK 02/29/24 01/03/25 omeprazole 20 mg capsule,delayed 20 mg PO BID 02/29/24 01/03/25 release topiramate 50 mg tablet mg PO 06/09/24 01/03/25 donepezil 10 mg tablet 10 mg PO BEDTIME 09/21/24 01/03/25 Previous Rx's ?Medication ?Instructions ?Recorded hydrocodone 5 mg-acetaminophen 325 1 tab PO BID PRN pain #10 tabs 01/05/25 mg tablet Allergies Allergy/AdvReac Type Severity Reaction Status Date / Time codeine AdvReac Intermediate Vomiting Verified 01/10/25 11:11 silver AdvReac red itchy Verified 01/10/25 11:11 [From Tegaderm AG Mesh] rash Review of Systems Constitutional: Constitutional: Reports as per HPI [facility] Past Medical History Medical History Hx of pilonidal cyst Degenerative disc disease, cervical Tinnitus of left ear Adenomyosis of uterus Bilateral breast cysts Sleep apnea Short-term memory loss Rheumatoid arthritis Osteoporosis SI (sacroiliac) joint dysfunction Hidradenitis suppurativa Occipital neuralgia Fibromyalgia HTN (hypertension) Lumbar disc disease Depression Overactive bladder Restless leg syndrome Peripheral neuropathy Surgical History History of gynecologic surgery History of surgery Hx of shoulder surgery H/O laminectomy History of carpal tunnel release of both wrists Hx of elbow surgery Hx of hysterectomy Hx of left knee surgery Hx of arthroscopy of left knee Hx of abdominal surgery H/O LEEP History of intestinal surgery Hx of appendectomy Family History Family History Mother No problems noted. Father No problems noted. Social History Social History Alcohol intake: former Patient Tobacco Use Status: Former Tobacco user Smoked in Last 30 Days: No Use of substances other than those prescribed or required for medical reasons: No Substance Use Type: Marijuana Advance Directives: No Advance Directives Information Provided: Yes Do you have a plan to hurt others: No Plan Patient : No Physical Exam Vital Signs: Vital Signs: Last Vital Signs Temp 98.6 F 01/10/25 11:18 Pulse 57 01/10/25 11:18 Resp 16 01/10/25 11:18 BP 151/66 H 01/10/25 11:18 Pulse Ox 100 01/10/25 11:18 O2 Del Method Room Air 01/10/25 11:18 BMI result Body Mass Index 37.6 Const: Other: Gen: ?Overall well-appearing patient, no facial trauma noted, though scalp trauma noted HEENT: PERRLA, no oral trauma, no blood in the ear canals or behind tympanic membrane, she has incision along the mastoid area on the right without dehiscence or significant hematoma everything is appropriate for the surgical procedure she has had, Neck: Chronic scarring from prior injections, bilateral trapezius tenderness, tenderness about her neck CV: RRR, no obvious murmurs appreciated Resp: ?No wheezing rales rhonchi no stridor moving air well Abd: ?Bowel sounds are present, no tenderness no rebound no rigidity MSK: FROM, strength 5/5 all extremities, no sensory or motor deficits bilateral lower extremities Skin: Warm, dry, intact, Neuro: ?Alert and oriented x3, moving upper and lower extremities symmetrically, no obvious facial asymmetry noted Medications Administered Discontinued Medications Generic Name Dose Route Start Last Admin Trade Name Wiley PRN Reason Stop Dose Admin Diazepam 5 mg 01/10/25 11:24 01/10/25 11:58 Diazepam 5 Mg Tablet PO 01/10/25 11:25 5 mg ONCE ONE Administration Medical Decision Making Medical Decision Making [facility] Narrative: 11:50 patient presented with concern for neck pain, initially when she checked in she was complain of headache, she denied having a headache to me, however she is definitely anxious and concerned about the fall and she just had a procedure behind her right ear for scar release, the scar area looks fine there is no dehiscence there is no bleeding no significant fatigue hematoma no significant hematoma, she has chronic pain and so it is hard to say which pain over her neck is acute or chronic some going to be obtaining imaging of the head and neck to make sure there are no fractures, dislocations, no traumatic brain injury, neurologically she is intact, and she is not sure why she fell, her vital signs do not show any evidence of hypoxia or hypotension or tachycardic to suspect PE and this was fairly minor procedure, but I will obtain ECG to make sure there are no underlying dysrhythmias. Otherwise if workup is negative anticipating discharge Independent Interpretation I performed an independent interpretation of an: EKG (Otherwise normal ECG without dysrhythmia, AV jennifer blocks or ST-T changes to suspect underlying ACS, my independent interpretation 53 bpm) Radiology Impression Discussion of test interpretation with radiology: I have reviewed the radiologist's reading. (The subcutaneous gas in the soft tissue is expected as she just had surgery, she also has degenerative changes but no acute injuries to her cervical spine I reviewed the report as well.) Radiologist Impression: IMPRESSION: 1. No acute intracranial abnormality. 2. There is subcutaneous gas in the right retroareolar soft tissues, likely on the basis of laceration or penetrating injury. Correlate clinically. 3. There are no fractures. The mastoids are aerated. Tests considered The following testing was considered but not selected: Blood work Prescription Management I considered prescription management with: Pain Medication Discharge Plan Discharge Clinical Impression: Acute neck pain, Post-operative pain Fall from standing Qualifiers: Encounter type: initial encounter Qualified Code(s): W19.XXXA - Unspecified fall, initial encounter Patient Disposition: Home, Self-Care Additional Instructions: Evaluated after a fall, your postsurgical site looks clean and dry there is some dried blood which is not an appropriate, you can clean it yourself when you are home just be gentle with the rubbing, you had a head and neck CT to make sure though no injury to her brain or injury to the neck and the imaging has been unremarkable, he did receive some medications for spasm in emergency department, and you have pain medications at home, if she will continue taking your hydrocodone pills, as well as gabapentin, ice the areas that hurt the most. You were given an antispasmodic medication that you have taken in the past at home, additional pain medications should be discussed with your pain management/surgeon. Any worsening symptoms concerns come back to the ER otherwise follow up with your providers Prescriptions: No Action hydrocodone-acetaminophen 5-325 mg tablet 1 tab PO BID PRN (Reason: pain) Qty: 10 0RF Rx Instructions: Partial Fill upon patient request. bupropion HCl 150 mg tablet sustained-release 12 hr 150 mg PO BID magnesium 250 mg tablet 500 mg PO DAILY calcium carbonate 600 mg calcium (1,500 mg) tablet 600 mg PO DAILY cholecalciferol (vitamin D3) 25 mcg (1,000 unit) capsule 25 mcg PO DAILY gabapentin 600 mg tablet 600 mg PO BID diazepam 2 mg tablet 2 mg PO TID pramipexole 0.125 mg tablet 0.375 mg PO BEDTIME metoprolol succinate 50 mg tablet extended release 24 hr 50 mg PO DAILY duloxetine 30 mg capsule,delayed release(DR/EC) 30 mg PO DAILY Myrbetriq 50 mg tablet extended release 24 hr 50 mg PO DAILY omeprazole 20 mg capsule,delayed release(DR/EC) 20 mg PO BID alendronate 70 mg tablet 70 mg PO QWEEK topiramate 50 mg tablet PO donepezil 10 mg tablet 10 mg PO BEDTIME Print Language: Sri Lankan
--- NOTE | 2025-01-10 11:45 | ECG_ITS ---
Test Reason : FALL Blood Pressure : */* mmHG Vent. Rate : 52 BPM Atrial Rate : 52 BPM P-R Int : 164 ms QRS Dur : 100 ms QT Int : 446 ms P-R-T Axes : 27 6 42 degrees QTcB Int : 414 ms Sinus bradycardia Minimal voltage criteria for LVH, may be normal variant ( Jose product ) Nonspecific T wave abnormality Abnormal ECG No previous ECGs available Referred By: vEerett Valenzuela Electronically Signed By: Herman Haynes
[2025-01-10] MEDS: diazePAM 5 MG TABLET PO (11:58)
[2025-01-10 12:55] VITALS: BP 155/74; PULSE 59; RESP 18; TEMP 36.4; O2SAT 95
--- OUTSIDE RECORDS SUMMARY | 2025-01-10 13:12 | XMS_ITS | Clinical Summary ---
Author Organization [facility] Address [address] [place] [address] Phone Care Team Providers Care Civil Geotechnical Engineer Name Role Phone Johann Trujillo MD Primary Care Provider [phone] Allergies Active Allergy Reactions Criticality Noted Date [...] METABOLIC PANEL STAT 09/05/2024 4:29 PM EST [facility] SCREENING DIGITAL Routine 01/23/2022 4:44 PM EDT Encounter for screening mammogram for malignant neoplasm of breast [facility] DEXA AXIAL SKELETON Routine 10/30/2019 8:08 AM EDT Encounter for screening for osteoporosis from Last 3 Months or Most Recently Relevant to Health Maintenance Results * Comprehensive metabolic panel (09/05/2024 4:29 PM EST) Sodium 140 133 - 145 mmol/L LAB CHEMISTRY METHOD 09/05/2024 5:21 PM [facility] Potassium 4.5 3.5 - 5.5 mmol/L LAB CHEMISTRY METHOD 09/05/2024 5:21 PM [facility] Chloride 110 96 - 110 mmol/L LAB CHEMISTRY METHOD 09/05/2024 5:21 PM [facility] CO2 26 21 - 32 mmol/L LAB CHEMISTRY METHOD 09/05/2024 5:21 PM [facility] Anion Gap 4 3 - 11 LAB CHEMISTRY METHOD 09/05/2024 5:21 PM [facility] Glucose 95 70 - 100 mg/dL LAB CHEMISTRY METHOD 09/05/2024 5:21 PM [facility] BUN 16 5 - 25 mg/dL LAB CHEMISTRY METHOD 09/05/2024 5:21 PM [facility] Creatinine 0.98 0.50 - 1.10 mg/dL LAB CHEMISTRY METHOD 09/05/2024 5:21 PM [facility] eGFR 68 >=60 mL/min/1. 73m2 LAB CHEMISTRY METHOD 09/05/2024 5:21 PM [facility] Comment:Calculation based on the??Chronic Kidney Disease Epidemiology Collaboration (CKD-EPI) equation refit??without adjustment for race. BUN/Creatinine Ratio 16.3 LAB CHEMISTRY METHOD 09/05/2024 5:21 PM [facility] Calcium 9.0 8.5 - 10.5 mg/dL LAB CHEMISTRY METHOD 09/05/2024 5:21 PM [facility] AST (SGOT) 22 10 - 42 unit/L LAB CHEMISTRY METHOD 09/05/2024 5:21 PM [facility] ALT (SGPT) 27 10 - 60 unit/L LAB CHEMISTRY METHOD 09/05/2024 5:21 PM [facility] Alkaline Phosphatase 50 42 - 121 unit/L LAB CHEMISTRY METHOD 09/05/2024 5:21 PM [facility] Total Protein 6.8 6.0 - 8.0 g/dL LAB CHEMISTRY METHOD 09/05/2024 5:21 PM [facility] Albumin 3.8 3.2 - 5.0 g/dL LAB CHEMISTRY METHOD 09/05/2024 5:21 PM [facility] Total Bilirubin 0.3 0.0 - 1.4 mg/dL LAB CHEMISTRY METHOD 09/05/2024 5:21 PM [facility] Blood Venous blood specimen / Unknown Venipuncture / Unknown 09/05/2024 4:29 PM EST 09/05/2024 4:51 PM EST us Harris Fay MD LAB BLOOD ORDERABLES Final Resu lt [facility] [address] [place] [address], * [facility] SCREENING DIGITAL (01/23/2022 4:44 PM EDT) Anatomical Region Laterality Modality Mammography 01/23/2022 11:1 5 AM EDT Narrative 01/23/2022 4:44 PM EDT [facility] Diagnostic Imaging Department [address] [place] [address] Patient: ??EDU SUÁREZ ?/Age/Sex: 1965 - - Unit#: ??[id number] ? Location/Status: ??SPDIMAM/REG CLI ? Mnemonic/Ordering Site: ??DIGSC/SPMAM Ordering Physician: ??KATHERIN ALVARADO MD [facility] Screening Digital - 01/23/22 - 1154 History: Bilateral breast cancer screening. Technique: ??Digital mammography. Conventional CC and MLO projections with tomosynthesis MLO views and computer aided detection. Comparison: [facility] 01/27/2021 dating back to 02/10/2016. Findings: ?? Breast tissue consists of fatty and fibroglandular elements (category b density) bilaterally (as calculated by [employer] software). There is no suspicious group of microcalcifications, mass, architectural distortion or suspicious change in breast tissue density. Impression: No evidence of malignancy. BIRADS category 1; negative study, 3341F [id number], [id number] Note: Patient information entered into a reminder system with a target due date for the next mammogram: ??CPT II 7025F Dictating Physician: ??CANDELARIO ENRIQUEZ MD Electronically Signed by: ??CANDELARIO ENRIQUEZ MD Dic Date/Time: ??01/23/22 1640 Sign date/Time: ??01/23/22 1644 Procedure Note Candelario Enriquez MD - 08/12/2022 [facility] Diagnostic Imaging Department [address] [place] [address] Patient: EDU SUÁREZ Ellen /Age/Sex: 1965 - 56 - F Unit#: [id number] [facility]Ordering Site[facility] Ordering Physician: KATHERIN ALVARADO MD [facility] Screening Digital - 01/23/22 - 1154 History: Bilateral breast cancer screening. Technique: Digital mammography. Conventional CC and MLO projectionswith tomosynthesis MLO views and computer aided detection. Comparison: [facility] 01/27/2021 dating back to 02/10/2016. Findings: Breast tissue consists of fatty and fibroglandular elements (category b density) bilaterally (as calculated by [employer]). There is no suspicious group of microcalcifications, mass, architectural distortion or suspicious change in breast tissue density. Impression: No evidence of malignancy. BIRADS category 1; negative study, 3341F 49206, [id number] Note: Patient information entered into a reminder system with a target duedate for the next mammogram: CPT II 7025F Dictating Physician: CANDELARIO ENRIQUEZ MD Electronically Signed by: CANDELARIO ENRIQUEZ MD Dic Date/Time: 01/23/22 1640 Sign date/Time: 01/23/22 2424 us Katherin Alvarado MD IMG BI PROCEDURES Final Resu lt * [facility] DEXA AXIAL SKELETON (10/30/2019 8:08 AM EDT) Anatomical Region Laterality Modality Mammography 10/30/2019 7:36 AM EDT Narrative 10/30/2019 8:08 AM EDT [facility] Diagnostic Imaging Department [address] [place] [address] Patient: ??EDU SUÁREZ ?/Age/Sex: 1965 - 53 - F Unit#: ??[id number] ? Location/Status: ??SPDIMAM/REG CLI ? Mnemonic/Ordering Site: ??MAMDEXAAX/SPMAM Ordering Physician: ??GERARDO LUX MD [facility] Dexa Axial Skeleton - 10/30/19 3402 HISTORY: ??The patient is a 53-year-old postmenopausal [...] probability of hip fracture of 1.2%. Code 01947 Dictating Physician: ??GABRIELLA PIERRE MD Electronically Signed by: ??GABRIELLA PIERRE MD Dic Date/Time: ??10/30/19 0806 Sign date/Time: ??10/30/19 0808 Procedure Note Gabriella Pierre - 08/11/2022 [facility] Diagnostic Imaging Department [address] [place] [address] Patient: EDU SUÁREZ Ellen /Age/Sex: 1965 - 53 - F Unit#: [id number] Location/Status: SPDIMA/REG CLI [facility] Ordering Physician: GERARDO LUX MD [facility] Dexa Axial Skeleton - 10/30/19 - 0970 HISTORY: The patient is a 53-year-old postmenopausal [...] density of the femurs bilaterally is 0.796 gm/li2xpmcp is 79% of that of young normals [...] probability of hip fracture of 1.2%. Code 01609 Dictating Physician: GABRIELLA PIERRE MD Electronically Signed by: GABRIELLA PIERRE MD Dic Date/Time: 10/30/19 0806 Sign date/Time: 10/30/19 0808 Gerardo Lux MD IMG BI PROCEDURES Final Result from Last 3 Months or Most Recently Relevant to Health Maintenance Insurance MEDICA[place] - [place] Care Teams Civil Geotechnical Engineer Relationship Specialty Start Date End Date Johann Trujillo MD [address] [facility] [place] PCP - General Internal Medicine 09/06/24
== END 2025-01-10 12:58 | disposition home or self-care (01) ==
PROVIDERS: Emergency Provider Emergency Medicine; PCP Internal Medicine
DX: S19.9XXA Unspecified injury of neck, initial encounter (principal); G89.18 Other acute postprocedural pain; R00.1 Bradycardia, unspecified; W19.XXXA Unspecified fall, initial encounter; Y93.9 Activity, unspecified; Y92.000 Kitchen of unspecified non-institutional (private) residence as the place of occurrence of the external cause; Y99.8 Other external cause status; Z91.81 History of falling; Z79.899 Other long term (current) drug therapy
CPT/HCPCS: 70450; 72125; 93005; 99284; 99285

== ENCOUNTER → 2025-01-10 11:24 | Outpatient (BNV) | payer MEDICAID, SELFPAY | PROVIDERS: Emergency Provider Emergency Medicine; PCP Internal Medicine; Visit Provider Radiology Diagnostic Radiology | DX: M43.12 Spondylolisthesis, cervical region (principal); G44.309 Post-traumatic headache, unspecified, not intractable | CPT/HCPCS: 70450; 72125 ==

== ENCOUNTER → 2025-01-10 11:45 | Outpatient (BNV) | payer MEDICAID, SELFPAY | PROVIDERS: Emergency Provider Emergency Medicine; PCP Internal Medicine; Visit Provider Internal Medicine Cardiovascular Disease | DX: R00.1 Bradycardia, unspecified (principal) | CPT/HCPCS: 93010 ==

== ENCOUNTER 2025-01-22 13:43 | Inpatient (IN) | payer MEDICAID, OTHER, SELFPAY ==
--- NOTE | ~2025-01-22 | XR_ITS ---
CLINICAL HISTORY: sternum and rib pains p falkl 4 view, chest and bilateral ribs Comparison: None Findings: Low lung volumes. Heart is borderline enlarged. No consolidation, significant pleural effusion or pneumothorax. Minimal bilateral basilar subsegmental atelectasis versus scarring. No acute rib fractures are identified. Sternum can not be evaluated. IMPRESSION: 1. No acute rib fracture. 2. Sternum can not be evaluated. If clinically sternal fracture is suspected follow-up CT could be obtained to further evaluate. 3. No acute findings in the chest. This document has been electronically signed by: Alisa Tinajero MD on 01/27/2025 17:56:02
--- NOTE | ~2025-01-22 | XR_ITS ---
CLINICAL HISTORY: fall, L scapular pain 3 view left shoulder Comparison: None Findings: Bones intact. No dislocations. Mild degenerative changes of the glenohumeral and acromioclavicular joints. No erosions. No radiopaque foreign body. IMPRESSION: 1. No acute findings 2. Mild degenerative changes. This document has been electronically signed by: Harry Lomas MD on 01/28/2025 07:15:44
[2025-01-22 13:59] VITALS: BP 173/80; PULSE 69; RESP 16; TEMP 35.7; O2SAT 100; BMI 34.9
--- NOTE | 2025-01-22 13:59 | ED_ITS ---
HPI - Psych General Chief Complaint: Psychiatric Symptoms Stated Complaint: SI Time Seen by Provider: 01/22/25 14:21 Related Data Home Medications ?Medication ?Instructions ?Recorded ?Confirmed bupropion HCl 150 mg tablet,12 hr 150 mg PO BID 07/26/23 01/22/25 sustained-release calcium carbonate 600 mg PO DAILY 07/26/23 01/22/25 cholecalciferol (vitamin D3) 25 25 mcg PO DAILY 07/26/23 01/22/25 mcg (1,000 unit) capsule magnesium 250 mg tablet 500 mg PO DAILY 07/26/23 01/22/25 pramipexole 0.125 mg tablet 0.375 mg PO BEDTIME 09/23/23 01/22/25 metoprolol succinate 50 mg 50 mg PO DAILY 10/15/23 01/22/25 tablet,extended release 24 hr diazepam 2 mg tablet 5 mg PO TID 10/22/23 01/22/25 gabapentin 600 mg tablet 600 mg PO TID 10/22/23 01/22/25 duloxetine 30 mg capsule,delayed 30 mg PO DAILY 02/07/24 01/22/25 release mirabegron 50 mg tablet,extended 50 mg PO DAILY 02/07/24 01/22/25 release 24 hr (Myrbetriq) alendronate 70 mg tablet 70 mg PO SA@0900 02/29/24 01/22/25 omeprazole 20 mg capsule,delayed 20 mg PO BID@0630,1630 02/29/24 01/22/25 release topiramate 50 mg tablet 100 mg PO BID 06/09/24 01/22/25 donepezil 10 mg tablet 10 mg PO BEDTIME 09/21/24 01/22/25 acetaminophen 650 mg 650 mg PO QID PRN Pain (Scale 01/22/25 01/22/25 tablet,extended release Score 1-3) clotrimazole-betamethasone 1 1 appl topical BID PRN Rash 01/22/25 01/22/25 %-0.05 % topical cream duloxetine 60 mg capsule,delayed 60 mg PO DAILY 01/22/25 01/22/25 release gabapentin 100 mg tablet 100 mg PO TID 01/22/25 01/22/25 hydrocodone 5 mg-acetaminophen 325 1 tab PO Q8H PRN pain 06/02/25 06/02/25 mg tablet hydroxyzine HCl 50 mg tablet 50 mg PO TID 01/22/25 01/22/25 Allergies Allergy/AdvReac Type Severity Reaction Status Date / Time codeine AdvReac Intermediate Vomiting Verified 01/22/25 14:00 silver AdvReac red itchy Verified 01/22/25 14:00 [From Tegaderm AG Mesh] rash PMFSH Past Medical History Medical History Hx of pilonidal cyst Degenerative disc disease, cervical Tinnitus of left ear Adenomyosis of uterus Bilateral breast cysts Sleep apnea Short-term memory loss Rheumatoid arthritis Osteoporosis SI (sacroiliac) joint dysfunction Hidradenitis suppurativa Occipital neuralgia Fibromyalgia HTN (hypertension) Lumbar disc disease Depression Overactive bladder Restless leg syndrome Peripheral neuropathy Surgical History History of gynecologic surgery History of surgery Hx of shoulder surgery H/O laminectomy History of carpal tunnel release of both wrists Hx of elbow surgery Hx of hysterectomy Hx of left knee surgery Hx of arthroscopy of left knee Hx of abdominal surgery H/O LEEP History of intestinal surgery Hx of appendectomy Family History Family History Mother No problems noted. Father No problems noted. Social History Social History Alcohol intake: former Patient Tobacco Use Status: Former Tobacco user Smoked in Last 30 Days: No Use of substances other than those prescribed or required for medical reasons: No Substance Use Type: Marijuana Advance Directives: No Advance Directives Information Provided: Yes Patient : No Physical Exam 2 Vital Signs: Vital Signs: Last Vital Signs Temp 97.1 F 01/23/25 14:28 Pulse 65 01/23/25 14:28 Resp 16 01/23/25 14:28 BP 161/75 H 01/23/25 14:28 Pulse Ox 99 01/23/25 14:28 O2 Del Method Room Air 01/23/25 14:28 BMI result Body Mass Index 34.9 Course Course Course Narrative: This is an RME: Additional HPI, ROS, PE not included below will be deferred to primary provider. RME assessment and note performed by: Miracle Astorga PA-C This is a [id number]-female who presents to the ER with a complaint of suicidal ideation. Reports that wednesday she created a suicidal plan that was to overdose on her medications. She has had suicidal ideation for several months, reports that her chronic pain has been a trigger for her. Plan: Labs, UA, care team Reevaluation(s) Reevaluation #1: See note written by primary provider, Dr. Lange Medications Administered Generic Name Dose Route Start Last Admin Trade Name Wiley PRN Reason Stop Dose Admin Bupropion HCl 300 mg 01/23/25 09:00 01/23/25 09:23 Bupropion Hcl Xl 300 Mg Tab.Er.24h PO 300 mg DAILY NALINI Administration Calcium Carbonate 750 mg 01/23/25 09:00 01/23/25 10:06 Calcium Carbonate 750 Mg Tab.Chew PO 750 mg DAILY NALINI Administration Diazepam 5 mg 01/22/25 22:15 01/23/25 14:33 Diazepam 5 Mg Tablet PO 5 mg TID NALINI Administration Donepezil HCl 10 mg 01/22/25 22:15 01/22/25 23:10 Donepezil Hcl 10 Mg Tablet PO 10 mg BEDTIME NALINI Administration Duloxetine HCl 30 mg 01/23/25 09:00 01/23/25 10:06 Duloxetine Hcl 30 Mg Capsule. PO 30 mg DAILY NALINI Administration Duloxetine HCl 60 mg 01/23/25 09:00 01/23/25 09:22 Duloxetine Hcl 60 Mg Capsule. PO 60 mg DAILY NALINI Administration Gabapentin 100 mg 01/22/25 23:00 01/23/25 16:01 Gabapentin 100 Mg Capsule PO 100 mg TID NALINI Administration Gabapentin 600 mg 01/22/25 22:15 01/23/25 14:33 Gabapentin 600 Mg Tablet PO 600 mg TID NALINI Administration Magnesium Oxide 400 mg 01/23/25 09:00 01/23/25 10:06 Magnesium Oxide 400 Mg Tablet PO 400 mg DAILY NALINI Administration Metoprolol Succinate 50 mg 01/23/25 09:00 01/23/25 10:06 Metoprolol Succinate Er 50 Mg Tab.Er.24h PO 50 mg DAILY NALINI Administration Protocol Mirabegron 50 mg 01/23/25 09:00 01/23/25 11:04 Mirabegron 50 Mg Tab.Er.24h PO 50 mg DAILY NALINI Administration Omeprazole 20 mg 01/23/25 06:30 01/23/25 16:01 Omeprazole 20 Mg Capsule. PO 20 mg BID@0630,1630 NALINI Administration Oxycodone HCl 5 mg 01/22/25 22:32 01/23/25 13:24 Oxycodone Hcl Immed Release 5 Mg Tablet PO 5 mg Q6H PRN Administration Pain, Moderate(Pain Scale 4-6) Pramipexole Dihydrochloride 0.375 mg 01/22/25 22:15 01/22/25 23:09 Pramipexole Di-Hcl 0.125 Mg Tablet PO 0.375 mg BEDTIME NALINI Administration Topiramate 100 mg 01/22/25 22:45 01/23/25 10:06 Topiramate 100 Mg Tablet PO 100 mg BID NALINI Administration Vitamin D 25 mcg 01/23/25 09:00 01/23/25 09:23 Cholecalciferol (Vitamin D3) 25 Mcg Tablet PO 25 mcg DAILY NALINI Administration Discontinued Medications Generic Name Dose Route Start Last Admin Trade Name Wiley PRN Reason Stop Dose Admin Diazepam 10 mg 01/22/25 18:45 01/22/25 18:57 Diazepam 5 Mg Tablet PO 01/22/25 18:46 10 mg ONCE ONE Administration Oxycodone HCl 5 mg 01/22/25 17:27 01/22/25 17:55 Oxycodone Hcl Immed Release 5 Mg Tablet PO 01/22/25 17:28 5 mg ONCE ONE Administration Medical Decision Making Lab Data 01/22/25 15:11 01/22/25 15:11 Labs: Lab Results 01/22/25 01/22/25 01/23/25 Range/Units 15:11 15:22 09:38 WBC 8.7 (4.8-10.8) X10*3/uL RBC 4.15 L (4.20-5.50) X10*6/uL Hgb 12.4 (12.0-16.0) g/dl Hct 36.9 L (37.0-47.0) % MCV 88.9 (80.0-98.0) fL MCH 29.9 (27.0-33.0) pg MCHC 33.6 (31.0-35.0) g/dl RDW 13.3 (11.0-16.0) % Plt Count 326 (160-400) X10*3/uL MPV 9.4 (9.4-12.3) fL Immature Gran % (Auto) 0.2 (0.0-0.4) % Neut % (Auto) 53.1 (45-73) % Lymph % (Auto) 35.8 (20-40) % Nance % (Auto) 8.9 (2-11) % Eos % (Auto) 1.4 (0-4) % Baso % (Auto) 0.6 (0-2) % Lymph # (Auto) 3.1 (1.2-4.9) X10*3/uL Nance # (Auto) 0.8 (0.1-1.2) X10*3/uL Eos # (Auto) 0.1 (0.0-0.4) X10*3/uL Baso # (Auto) 0.1 (0.0-0.2) X10*3/uL Abs Immat Gran (auto) 0.02 (0.00-0.03) X10*3/uL Absolute Neuts (auto) 4.6 (2.0-8.3) x10*3/uL Absolute Nucleated RBC 0.000 (0.0-0.012) X10*3/uL Nucleated RBC % (auto) 0.0 (0.0-0.2) /100WBC Sodium 143 (135-145) mmol/L Potassium 4.5 (3.3-5.1) mmol/L Chloride 111 H (96-108) mmol/L Carbon Dioxide 26 (22-29) mmol/L Anion Gap 11 L (12-20) BUN 14 (9-16) mg/dL Creatinine 0.74 (0.5-1.4) mg/dL Estim Creat Clear Calc 79.1 Estimated GFR > 60 Random Glucose 93 (60-115) mg/dL Calcium 10.1 D (8.4-10.2) mg/dL Total Bilirubin 0.5 (0.0-1.0) mg/dL AST 23 (5-31) U/L ALT 16 (0-31) U/L Alkaline Phosphatase 66 (39-117) U/L Total Protein 6.7 (6.5-8.0) g/dL Albumin 4.1 (3.5-5.0) g/dL Urine Color Yellow Urine Appearance Clear Urine pH 6.5 (5.0-9.0) Ur Specific [place]rest 1.015 (1.005-1.025) Urine Protein Negative (Neg-Trace) mg/dL Urine Glucose (UA) Negative (Negative) mg/dL Urine Ketones Negative (Negative) mg/dL Urine Blood Negative (Negative) Urine Nitrite Negative (Negative) Ur Leukocyte Esterase Trace H (Negative) Urine RBC 0-2 (0-2) /HPF Urine WBC 0-5 (0-5) /HPF Ur Squamous Epith Cells 0-2 (0-2) /HPF Urine Bacteria None Seen (None Seen) Hyaline Casts 0-2 (0-2) /LPF Salicylates < 5.0 L (15-30) mg/dL Urine Opiates Screen POSITIVE H (Not Detect) Ur Buprenorphine Scrn Not Detected (Not Detect) ng/mL Ur Oxycodone Screen Not Detected (Not Detect) ng/mL Urine Methadone Screen Not Detected (Not Detect) ng/mL Urine Fentanyl Screen Not Detected (Not Detect) Acetaminophen < 3 (<30) mcg/mL Ur Barbiturates Screen Not Detected (Not Detect) Ur Phencyclidine Scrn Not Detected (Not Detect) Ur Amphetamines Screen Not Detected (Not Detect) U Benzodiazepines Scrn POSITIVE H (Not Detect) Urine Cocaine Screen Not Detected (Not Detect) U Marijuana (THC) Screen POSITIVE H (Not Detect) Ethyl Alcohol < 10 mg/dL Discharge Plan Discharge Clinical Impression: Suicidal ideation Patient Disposition: Still a Patient Prescriptions: No Action duloxetine 60 mg Capsule,Delayed Release(Dr/Ec) 60 mg PO DAILY gabapentin 100 mg Tablet 100 mg PO TID hydrocodone-acetaminophen 5-325 mg tablet 1 tab PO Q8H PRN (Reason: pain) Rx Instructions: Partial Fill upon patient request. hydroxyzine HCl 50 mg tablet 50 mg PO TID acetaminophen 650 mg Tablet Extended Release 650 mg PO QID PRN (Reason: Pain (Scale Score 1-3)) clotrimazole-betamethasone 1-0.05 % Cream 1 appl TOPICAL BID PRN (Reason: Rash) bupropion HCl 150 mg tablet sustained-release 12 hr 150 mg PO BID magnesium 250 mg tablet 500 mg PO DAILY calcium carbonate 600 mg calcium (1,500 mg) tablet 600 mg PO DAILY cholecalciferol (vitamin D3) 25 mcg (1,000 unit) capsule 25 mcg PO DAILY gabapentin 600 mg tablet 600 mg PO TID diazepam 2 mg tablet 5 mg PO TID pramipexole 0.125 mg tablet 0.375 mg PO BEDTIME metoprolol succinate 50 mg tablet extended release 24 hr 50 mg PO DAILY duloxetine 30 mg capsule,delayed release(DR/EC) 30 mg PO DAILY Myrbetriq 50 mg tablet extended release 24 hr 50 mg PO DAILY omeprazole 20 mg capsule,delayed release(DR/EC) 20 mg PO BID@0630,1630 alendronate 70 mg tablet 70 mg PO SA@0900 topiramate 50 mg tablet 100 mg PO BID donepezil 10 mg tablet 10 mg PO BEDTIME Interventions: Bacova-Suicide Risk Severity Scale Last Done: 01/22/25 15:10 Print Language: Honduran
--- NOTE | 2025-01-22 14:29 | ED_ITS ---
HPI - Psych General Chief Complaint: Psychiatric Symptoms Stated Complaint: SI Time Seen by Provider: 01/22/25 14:21 History of Present Illness HPI Narrative: Patient is a 59-year-old female presented today with having thoughts of SI for the last few months. Patient plan to OD on her medication. Has been having chronic pain for the last 10 years Related Data Home Medications ?Medication ?Instructions ?Recorded ?Confirmed bupropion HCl 150 mg tablet,12 hr 150 mg PO BID 07/26/23 01/22/25 sustained-release calcium carbonate 600 mg PO DAILY 07/26/23 01/22/25 cholecalciferol (vitamin D3) 25 25 mcg PO DAILY 07/26/23 01/22/25 mcg (1,000 unit) capsule magnesium 250 mg tablet 500 mg PO DAILY 07/26/23 01/22/25 pramipexole 0.125 mg tablet 0.375 mg PO BEDTIME 09/23/23 01/22/25 metoprolol succinate 50 mg 50 mg PO DAILY 10/15/23 01/22/25 tablet,extended release 24 hr diazepam 2 mg tablet 5 mg PO TID 10/22/23 01/22/25 gabapentin 600 mg tablet 600 mg PO TID 10/22/23 01/22/25 duloxetine 30 mg capsule,delayed 30 mg PO DAILY 02/07/24 01/22/25 release mirabegron 50 mg tablet,extended 50 mg PO DAILY 02/07/24 01/22/25 release 24 hr (Myrbetriq) alendronate 70 mg tablet 70 mg PO SA@0900 02/29/24 01/22/25 omeprazole 20 mg capsule,delayed 20 mg PO BID@0630,1630 02/29/24 01/22/25 release topiramate 50 mg tablet 100 mg PO BID 06/09/24 01/22/25 donepezil 10 mg tablet 10 mg PO BEDTIME 09/21/24 01/22/25 acetaminophen 650 mg 650 mg PO QID PRN Pain (Scale 01/22/25 01/22/25 tablet,extended release Score 1-3) clotrimazole-betamethasone 1 1 appl topical BID PRN Rash 01/22/25 01/22/25 %-0.05 % topical cream duloxetine 60 mg capsule,delayed 60 mg PO DAILY 01/22/25 01/22/25 release gabapentin 100 mg tablet 100 mg PO TID 01/22/25 01/22/25 hydrocodone 5 mg-acetaminophen 325 1 tab PO Q8H PRN pain 01/22/25 01/22/25 mg tablet hydroxyzine HCl 50 mg tablet 50 mg PO TID 01/22/25 01/22/25 Allergies Allergy/AdvReac Type Severity Reaction Status Date / Time codeine AdvReac Intermediate Vomiting Verified 01/22/25 14:00 silver AdvReac red itchy Verified 01/22/25 14:00 [From Tegaderm AG Mesh] rash PMFSH Past Medical History Medical History Hx of pilonidal cyst Degenerative disc disease, cervical Tinnitus of left ear Adenomyosis of uterus Bilateral breast cysts Sleep apnea Short-term memory loss Rheumatoid arthritis Osteoporosis SI (sacroiliac) joint dysfunction Hidradenitis suppurativa Occipital neuralgia Fibromyalgia HTN (hypertension) Lumbar disc disease Depression Overactive bladder Restless leg syndrome Peripheral neuropathy Surgical History History of gynecologic surgery History of surgery Hx of shoulder surgery H/O laminectomy History of carpal tunnel release of both wrists Hx of elbow surgery Hx of hysterectomy Hx of left knee surgery Hx of arthroscopy of left knee Hx of abdominal surgery H/O LEEP History of intestinal surgery Hx of appendectomy Family History Family History Mother No problems noted. Father No problems noted. Social History Social History Alcohol intake: former Patient Tobacco Use Status: Former Tobacco user Smoked in Last 30 Days: No Use of substances other than those prescribed or required for medical reasons: No Substance Use Type: Marijuana Advance Directives: No Advance Directives Information Provided: Yes Patient : No Physical Exam 2 Vital Signs: Vital Signs: Last Vital Signs Temp 97.1 F 01/23/25 14:28 Pulse 65 01/23/25 14:28 Resp 16 01/23/25 14:28 BP 161/75 H 01/23/25 14:28 Pulse Ox 99 01/23/25 14:28 O2 Del Method Room Air 01/23/25 14:28 BMI result Body Mass Index 34.9 Course Reevaluation(s) Reevaluation #1: I took over care of this patient who is pending a bed search. SI. Vladimir Abdul MD Time: 18:44 Reevaluation #2: Time: 06:05 Date: 01/23/25 Provider: Gaurav Perry MD Patient in physician observation for psychiatric evaluation.? No acute events reported overnight. VS stable Accept with elevated blood pressure of 171/79.? patient has had previous elevated blood pressures in the past as well as normal blood pressures. We will continue to monitor blood pressure at this time.Patient was evaluated by the care team. Patient is having visual hallucinations. Patient has SI with a plan to overdose on her pills which she has been stockpiling. Care team felt that the patient would benefit from inpatient care. Patient is in bed search. Will continue to monitor. Reevaluation #3: Time: 17:17 Date: 01/23/25 Provider: Gaurav Perry MD Physician observation ended at 17:17.Patient to be admitted as inpatient to psychiatry. I was asked to look at the patient's 12 EKG. My interpretation the patient's 12 EKG done on 01/23/2025 at 09:22 hours is as follows: Sinus bradycardia with a rate of 45, normal NC interval, prolonged QRS duration of 102 milliseconds, normal QTC interval of [address] segment elevation, no ST segment depression, biphasic T-waves in V1 and V2 with a an inverted T-wave in V3. Patient also has flattening of the T-wave V4 and V5. Compared to an EKG dated 01/10/2025 at 11:50 hours the sinus bradycardia is old. The biphasic T- wave in V2, inverted V wave in V3 and flattened T-waves in V5 are new but are nonspecific and do not represent ischemia. The patient reported chronic pain but no chest pain. Medications Administered Generic Name Dose Route Start Last Admin Trade Name Freq PRN Reason Stop Dose Admin Bupropion HCl 300 mg 01/23/25 09:00 01/23/25 09:23 Bupropion Hcl Xl 300 Mg Tab.Er.24h PO 300 mg DAILY NALINI Administration Calcium Carbonate 750 mg 01/23/25 09:00 01/23/25 10:06 Calcium Carbonate 750 Mg Tab.Chew PO 750 mg DAILY NALINI Administration Diazepam 5 mg 01/22/25 22:15 01/23/25 14:33 Diazepam 5 Mg Tablet PO 5 mg TID NALINI Administration Donepezil HCl 10 mg 01/22/25 22:15 01/22/25 23:10 Donepezil Hcl 10 Mg Tablet PO 10 mg BEDTIME NALINI Administration Duloxetine HCl 30 mg 01/23/25 09:00 01/23/25 10:06 Duloxetine Hcl 30 Mg Capsule. PO 30 mg DAILY NALINI Administration Duloxetine HCl 60 mg 01/23/25 09:00 01/23/25 09:22 Duloxetine Hcl 60 Mg Capsule. PO 60 mg DAILY NALINI Administration Gabapentin 100 mg 01/22/25 23:00 01/23/25 16:01 Gabapentin 100 Mg Capsule PO 100 mg TID NALINI Administration Gabapentin 600 mg 01/22/25 22:15 01/23/25 14:33 Gabapentin 600 Mg Tablet PO 600 mg TID NALINI Administration Magnesium Oxide 400 mg 01/23/25 09:00 01/23/25 10:06 Magnesium Oxide 400 Mg Tablet PO 400 mg DAILY NALINI Administration Metoprolol Succinate 50 mg 01/23/25 09:00 01/23/25 10:06 Metoprolol Succinate Er 50 Mg Tab.Er.24h PO 50 mg DAILY NALINI Administration Protocol Mirabegron 50 mg 01/23/25 09:00 01/23/25 11:04 Mirabegron 50 Mg Tab.Er.24h PO 50 mg DAILY NALINI Administration Omeprazole 20 mg 01/23/25 06:30 01/23/25 16:01 Omeprazole 20 Mg Capsule. PO 20 mg BID@0630,1630 NALINI Administration Oxycodone HCl 5 mg 01/22/25 22:32 01/23/25 13:24 Oxycodone Hcl Immed Release 5 Mg Tablet PO 5 mg Q6H PRN Administration Pain, Moderate(Pain Scale 4-6) Pramipexole Dihydrochloride 0.375 mg 01/22/25 22:15 01/22/25 23:09 Pramipexole Di-Hcl 0.125 Mg Tablet PO 0.375 mg BEDTIME NALINI Administration Topiramate 100 mg 01/22/25 22:45 01/23/25 10:06 Topiramate 100 Mg Tablet PO 100 mg BID NALINI Administration Vitamin D 25 mcg 01/23/25 09:00 01/23/25 09:23 Cholecalciferol (Vitamin D3) 25 Mcg Tablet PO 25 mcg DAILY NALINI Administration Discontinued Medications Generic Name Dose Route Start Last Admin Trade Name Wiley PREllen Reason Stop Dose Admin Diazepam 10 mg 01/22/25 18:45 01/22/25 18:57 Diazepam 5 Mg Tablet PO 01/22/25 18:46 10 mg ONCE ONE Administration Oxycodone HCl 5 mg 01/22/25 17:27 01/22/25 17:55 Oxycodone Hcl Immed Release 5 Mg Tablet PO 01/22/25 17:28 5 mg ONCE ONE Administration Medical Decision Making Medical Decision Making MDM Narrative: Patient evaluated by the crisis team. [place] patient likely to be admitted. Is at bed search at this time. I check patient's electrolytes. White count was normal. Patient's electrolytes unremarkable. Positive for opiates. Positive for benzo positive for marijuana alcohol was negative. Awaiting final placement per care team Differential Diagnosis Differential Diagnoses: The differential diagnosis associated with the presentation includes Suicidal ideation Admission/Observation Consideration of admission/observation: Escalation of care including admission/observation considered Will require admission as per crisis Consult Healthcare Provider Management of the patient was discussed with: Health And Nutrition Specialist (Care team) Lab Data [facility] Lab Attestation statement: I reviewed the patient's lab results. 01/22/25 15:11 01/22/25 15:11 Labs: Lab Results 01/22/25 01/22/25 01/23/25 Range/Units 15:11 15:22 09:38 WBC 8.7 (4.8-10.8) X10*3/uL RBC 4.15 L (4.20-5.50) X10*6/uL Hgb 12.4 (12.0-16.0) g/dl Hct 36.9 L (37.0-47.0) % MCV 88.9 (80.0-98.0) fL MCH 29.9 (27.0-33.0) pg MCHC 33.6 (31.0-35.0) g/dl RDW 13.3 (11.0-16.0) % Plt Count 326 (160-400) X10*3/uL MPV 9.4 (9.4-12.3) fL Immature Gran % (Auto) 0.2 (0.0-0.4) % Neut % (Auto) 53.1 (45-73) % Lymph % (Auto) 35.8 (20-40) % Castro % (Auto) 8.9 (2-11) % Eos % (Auto) 1.4 (0-4) % Baso % (Auto) 0.6 (0-2) % Lymph # (Auto) 3.1 (1.2-4.9) X10*3/uL Castro # (Auto) 0.8 (0.1-1.2) X10*3/uL Eos # (Auto) 0.1 (0.0-0.4) X10*3/uL Baso # (Auto) 0.1 (0.0-0.2) X10*3/uL Abs Immat Gran (auto) 0.02 (0.00-0.03) X10*3/uL Absolute Neuts (auto) 4.6 (2.0-8.3) x10*3/uL Absolute Nucleated RBC 0.000 (0.0-0.012) X10*3/uL Nucleated RBC % (auto) 0.0 (0.0-0.2) /100WBC Sodium 143 (135-145) mmol/L Potassium 4.5 (3.3-5.1) mmol/L Chloride 111 H (96-108) mmol/L Carbon Dioxide 26 (22-29) mmol/L Anion Gap 11 L (12-20) BUN 14 (9-16) mg/dL Creatinine 0.74 (0.5-1.4) mg/dL Estim Creat Clear Calc 79.1 Estimated GFR > 60 Random Glucose 93 (60-115) mg/dL Calcium 10.1 D (8.4-10.2) mg/dL Total Bilirubin 0.5 (0.0-1.0) mg/dL AST 23 (5-31) U/L ALT 16 (0-31) U/L Alkaline Phosphatase 66 (39-117) U/L Total Protein 6.7 (6.5-8.0) g/dL Albumin 4.1 (3.5-5.0) g/dL Urine Color Yellow Urine Appearance Clear Urine pH 6.5 (5.0-9.0) Ur Specific [place] 1.015 (1.005-1.025) Urine Protein Negative (Neg-Trace) mg/dL Urine Glucose (UA) Negative (Negative) mg/dL Urine Ketones Negative (Negative) mg/dL Urine Blood Negative (Negative) Urine Nitrite Negative (Negative) Ur Leukocyte Esterase Trace H (Negative) Urine RBC 0-2 (0-2) /HPF Urine WBC 0-5 (0-5) /HPF Ur Squamous Epith Cells 0-2 (0-2) /HPF Urine Bacteria None Seen (None Seen) Hyaline Casts 0-2 (0-2) /LPF Salicylates < 5.0 L (15-30) mg/dL Urine Opiates Screen POSITIVE H (Not Detect) Ur Buprenorphine Scrn Not Detected (Not Detect) ng/mL Ur Oxycodone Screen Not Detected (Not Detect) ng/mL Urine Methadone Screen Not Detected (Not Detect) ng/mL Urine Fentanyl Screen Not Detected (Not Detect) Acetaminophen < 3 (<30) mcg/mL Ur Barbiturates Screen Not Detected (Not Detect) Ur Phencyclidine Scrn Not Detected (Not Detect) Ur Amphetamines Screen Not Detected (Not Detect) U Benzodiazepines Scrn POSITIVE H (Not Detect) Urine Cocaine Screen Not Detected (Not Detect) U Marijuana (THC) Screen POSITIVE H (Not Detect) Ethyl Alcohol < 10 mg/dL External Record Review External record reviewed: Inpatient record Chronic Conditions Hypertension, fibromyalgia, chronic pain Social Determinants Patient?s care significantly limited by Social Determinants of Health including: Problems related to primary support group Discharge Plan Discharge Patient Disposition: Admitted As Inpatient Prescriptions: No Action duloxetine 60 mg Capsule,Delayed Release(Dr/Ec) 60 mg PO DAILY gabapentin 100 mg Tablet 100 mg PO TID hydrocodone-acetaminophen 5-325 mg tablet 1 tab PO Q8H PRN (Reason: pain) Rx Instructions: Partial Fill upon patient request. hydroxyzine HCl 50 mg tablet 50 mg PO TID acetaminophen 650 mg Tablet Extended Release 650 mg PO QID PRN (Reason: Pain (Scale Score 1-3)) clotrimazole-betamethasone 1-0.05 % Cream 1 appl TOPICAL BID PRN (Reason: Rash) bupropion HCl 150 mg tablet sustained-release 12 hr 150 mg PO BID magnesium 250 mg tablet 500 mg PO DAILY calcium carbonate 600 mg calcium (1,500 mg) tablet 600 mg PO DAILY cholecalciferol (vitamin D3) 25 mcg (1,000 unit) capsule 25 mcg PO DAILY gabapentin 600 mg tablet 600 mg PO TID diazepam 2 mg tablet 5 mg PO TID pramipexole 0.125 mg tablet 0.375 mg PO BEDTIME metoprolol succinate 50 mg tablet extended release 24 hr 50 mg PO DAILY duloxetine 30 mg capsule,delayed release(DR/EC) 30 mg PO DAILY Myrbetriq 50 mg tablet extended release 24 hr 50 mg PO DAILY omeprazole 20 mg capsule,delayed release(DR/EC) 20 mg PO BID@0630,1630 alendronate 70 mg tablet 70 mg PO SA@0900 topiramate 50 mg tablet 100 mg PO BID donepezil 10 mg tablet 10 mg PO BEDTIME Interventions: Traill-Suicide Risk Severity Scale Last Done: 01/22/25 15:10 Print Language: Urdu
[2025-01-22 15:16] LABS: MANUAL DIFF FLAG NO
[2025-01-22 15:19] LABS: Basophils Absolute Auto 0.1 X10*3/uL (0.0-0.2); Basophils Percent Auto 0.6 % (0-2); Eosinophils Absolute Auto 0.1 X10*3/uL (0.0-0.4); Eosinophils Percent Auto 1.4 % (0-4); Hematocrit 36.9 % (37.0-47.0); Hemoglobin 12.4 g/dl (12.0-16.0); Imm Gran Abs Auto 0.02 X10*3/uL (0.00-0.03); Imm Gran Pct Auto 0.2 % (0.0-0.4); Lymphocytes Absolute Auto 3.1 X10*3/uL (1.2-4.9); Lymphocytes Percent Auto 35.8 % (20-40); Mean Corpuscular HGB Conc 33.6 g/dl (31.0-35.0); Mean Corpuscular Hemoglobin 29.9 pg (27.0-33.0); Mean Corpuscular Volume 88.9 fL (80.0-98.0); Mean Platelet Volume 9.4 fL (9.4-12.3); Monocytes Absolute Auto 0.8 X10*3/uL (0.1-1.2); Monocytes Percent Auto 8.9 % (2-11); Neutrophils Absolute Auto 4.6 x10*3/uL (2.0-8.3); Neutrophils Percent Auto 53.1 % (45-73); Platelet Count 326 X10*3/uL (160-400); Red Blood Count 4.15 X10*6/uL (4.20-5.50); Red Cell Distribution Width 13.3 % (11.0-16.0); White Blood Count 8.7 X10*3/uL (4.8-10.8)
[2025-01-22 15:41] LABS: Amphetamine Screen Urine Not Detected (Not Detect); Barbiturates, Urine Not Detected (Not Detect); Benzodiazepines Screen Urine POSITIVE (Not Detect); Buprenorphine Scr Not Detected (Not Detect); Cannabinoid Screen Urine POSITIVE (Not Detect); Cocaine Screen Urine Not Detected (Not Detect); Fentanyl, urine Not Detected (Not Detect); Methadone Screen, Urine Not Detected (Not Detect); Opiate Screen Urine POSITIVE (Not Detect); Oxycodone Screen Urine Not Detected (Not Detect); Phencyclidine Screen Urine Not Detected (Not Detect)
[2025-01-22 15:57] LABS: Alanine Aminotransferase 16 U/L (0-31); Albumin Level 4.1 g/dL (3.5-5.0); Anion Gap 11 (12-20); Aspartate Amino Transferase 23 U/L (5-31); Bilirubin Total 0.5 mg/dL (0.0-1.0); Blood Urea Nitrogen 14 mg/dL (9-16); Calcium 10.1 mg/dL (8.4-10.2); Carbon Dioxide 26 mmol/L (22-29); Chloride 111 mmol/L (96-108); Creatinine Clr Calc Pharmacy 79.1; Estimated Glomerular Filt Rate > 60; Ethanol < 10 mg/dL; Glucose Random 93 mg/dL (60-115); Potassium 4.5 mmol/L (3.3-5.1); Sodium 143 mmol/L (135-145); Total Protein 6.7 g/dL (6.5-8.0)
--- OUTSIDE RECORDS SUMMARY | 2025-01-22 16:09 | XMS_ITS | Clinical Summary ---
Author Organization [facility] Address [address] [place] [address] Phone Care Team Providers Care Ham Clerk Name Role Phone Johann Trujillo MD Primary Care Provider [phone] Allergies Active Allergy Reactions Criticality Noted Date [...] METABOLIC PANEL STAT 09/05/2024 4:29 PM EST [facility] SCREENING DIGITAL Routine 01/23/2022 4:44 PM EDT Encounter for screening mammogram for malignant neoplasm of breast [facility] DEXA AXIAL SKELETON Routine 10/30/2019 8:08 [...] g/dL LAB CHEMISTRY METHOD 09/05/2024 5:21 PM [facility] Albumin 3.8 3.2 - 5.0 g/dL LAB CHEMISTRY METHOD 09/05/2024 5:21 PM [facility] Total Bilirubin 0.3 0.0 - 1.4 mg/dL LAB CHEMISTRY METHOD 09/05/2024 5:21 PM [facility] Blood Venous blood specimen / Unknown Venipuncture / Unknown 09/05/2024 4:29 PM EST 09/05/2024 4:51 PM EST us Harris Fay MD LAB BLOOD ORDERABLES Final Resu lt [facility] [address] [place] [address], * TERELL SCREENING DIGITAL (01/23/2022 4:44 PM EDT) Anatomical Region Laterality Modality Mammography 01/23/2022 11:1 5 AM EDT Narrative 01/23/2022 4:44 PM EDT [facility] Diagnostic Imaging Department [address] [place] [address] Patient: ??EDU SUÁREZ ?/Age/Sex: 1965 - - Unit#: ??[id number] ? Location/Status: ??SPDIMAM/REG CLI ? Mnemonic/Ordering Site: ??DIGSC/SPMAM Ordering Physician: ??KATHERIN ALVARADO MD [facility] Screening Digital - 01/23/22 - 1154 History: Bilateral breast cancer screening. Technique: ??Digital mammography. Conventional CC and MLO projections with tomosynthesis MLO views and computer aided detection. Comparison: [facility] 01/27/2021 dating back to 02/10/2016. Findings: ?? Breast tissue consists of fatty and fibroglandular elements (category b density) bilaterally (as calculated by [employer] software). There is no suspicious group of microcalcifications, mass, architectural distortion or suspicious change in breast tissue density. Impression: No evidence of malignancy. BIRADS category 1; negative study, 3341F 48399, 50750 Note: Patient information entered into a reminder system with a target due date for the next mammogram: ??CPT II 7025F Dictating Physician: ??CANDELARIO ENRIQUEZ MD Electronically Signed by: ??CANDELARIO ENRIQUEZ MD Dic Date/Time: ??01/23/22 1640 Sign date/Time: ??01/23/22 1644 Procedure Note Candelario Enriquez MD - 08/12/2022 [facility] Diagnostic Imaging Department [address] [place] [address] Patient: EDU SUÁREZ Ellen /Age/Sex: 1965 - 56 - F Unit#: [id number] [facility]Ordering Site: [facility] Ordering Physician: KATHERIN ALVARADO MD [facility] Screening Digital - 01/23/22 - 1154 History: Bilateral breast cancer screening. Technique: Digital mammography. Conventional CC and MLO projectionswith tomosynthesis MLO views and computer aided detection. Comparison: [facility] 01/27/2021 dating back to 02/10/2016. Findings: Breast tissue consists of fatty and fibroglandular elements (category b density) bilaterally (as calculated by [employer]). There is no suspicious group of microcalcifications, mass, architectural distortion or suspicious change in breast tissue density. Impression: No evidence of malignancy. BIRADS category 1; negative study, 3341F 13478, 41388 Note: Patient information entered into a reminder system with a target duedate for the next mammogram: CPT II 7025F Dictating Physician: CANDELARIO ENRQIUEZ MD Electronically Signed by: CANDELARIO ENRIQUEZ MD Dic Date/Time: 01/23/22 1640 Sign date/Time: 01/23/22 6584 us Katherin Alvarado MD IMG BI PROCEDURES Final Resu lt * [facility] DEXA AXIAL SKELETON (10/30/2019 8:08 AM EDT) Anatomical Region Laterality Modality Mammography 10/30/2019 7:36 AM EDT Narrative 10/30/2019 8:08 AM EDT [facility] Diagnostic Imaging Department [address] [place] [address] Patient: ??EDU SUÁREZ ?/Age/Sex: 1965 - 53 - F Unit#: ??[id number] ? Location/Status: ??SPDIMAM/REG CLI ? Mnemonic/Ordering Site: ??MAMDEXAAX/SPMAM Ordering Physician: ??GERARDO LUX MD [facility] Dexa Axial Skeleton - 10/30/19 0494 HISTORY: ??The patient is a 53-year-old postmenopausal [...] probability of hip fracture of 1.2%. Code 75532 Dictating Physician: ??GABRIELLA PIERRE MD Electronically Signed by: ??GABRIELLA PIERRE MD Dic Date/Time: ??10/30/19 0806 Sign date/Time: ??10/30/19 0808 Procedure Note Gabriella Pierre - 08/11/2022 [facility] Diagnostic Imaging Department [address] [place] [address] Patient: EDU SUÁREZ Ellen /Age/Sex: 1965 - 53 - F Unit#: [id number] Location/Status: SPDIMA/REG CLI [facility] Ordering Physician: GERARDO LUX MD [facility] Dexa Axial Skeleton - 10/30/19 - 9108 HISTORY: The patient is a 53-year-old postmenopausal [...] density of the femurs bilaterally is 0.796 gm/vm1yhyzz is 79% of that of young normals [...] probability of hip fracture of 1.2%. Code 73956 Dictating Physician: GABRIELLA PIERRE MD Electronically Signed by: GABRIELLA PIERRE MD Dic Date/Time: 10/30/19 0806 Sign date/Time: 10/30/19 0808 Gerardo Lux MD IMG BI PROCEDURES Final Result from Last 3 Months or Most Recently Relevant to Health Maintenance Insurance MEDICAID - [place] Care Teams Ham Clerk Relationship Specialty Start Date End Date Johann Trujillo MD [address] [facility] [place] PCP - General Internal Medicine 09/06/24
[2025-01-22 16:18] LABS: Alkaline Phosphatase 66 U/L (39-117)
[2025-01-22 16:35] LABS: Acetaminophen LAB < 3 mcg/mL (<30); Salicylate < 5.0 mg/dL (15-30)
[2025-01-22 16:50] VITALS: BP 121/55; PULSE 58; RESP 18; TEMP 36.7; O2SAT 100
[2025-01-22] MEDS: oxyCODONE HCl Immed Release 5 MG TABLET PO ×2 (17:55→23:10)
[2025-01-22 18:49] VITALS: BP 171/79; PULSE 83; RESP 18; TEMP 36.8; O2SAT 100
[2025-01-22] MEDS: diazePAM 5 MG TABLET 10 MG PO (18:57)
--- NOTE | 2025-01-22 20:03 | PC.NURSE ---
verbal nurse to nurse report given to shannon in pod.
--- NOTE | 2025-01-22 20:06 | MHC.EDTECH ---
Addendum entered by Maddy Mercado 01/22/25 20:54: PT CANE IN LAUNDRY CLOSET. BLUE/FLORAL TYPE. Original Note: belongings moved from [facility] [address] shelf 1 to locker #7.
--- NOTE | 2025-01-22 20:38 | PC.NURSE ---
ASSUMED CARE OF PT AT APPROXIMATELY 1930 FROM THE MAIN ED. PT HAS BEEN RESTING COMFFORTABLY. NO ACUTE DISTRESS AT THIS TIME. AWAITING CARE TEAM DISPOSITION
--- NOTE | 2025-01-22 22:26 | PHA.MEDREC ---
Pharmacy Consult ? Medication Reconciliation RN has completed the medication reconciliation. patient is no longer taking ketorolac or timolol eye drops , stopped after cataract surgery.
[2025-01-22] MEDS: Pramipexole Di-HCL 0.125 MG TABLET 0.375 MG PO (23:09)
[2025-01-22] MEDS: diazePAM 5 MG TABLET PO (23:10)
[2025-01-22] MEDS: Topiramate 100 MG TABLET PO (23:10)
[2025-01-22] MEDS: Gabapentin 100 MG CAPSULE PO (23:10)
[2025-01-22] MEDS: Donepezil HCl 10 MG TABLET PO (23:10)
[2025-01-22] MEDS: Gabapentin 600 MG TABLET PO (23:10)
--- NOTE | 2025-01-23 | ECG_ITS ---
Test Reason : R/O PROLONGED QT Blood Pressure : */* mmHG Vent. Rate : 45 BPM Atrial Rate : 45 BPM P-R Int : 176 ms QRS Dur : 102 ms QT Int : 462 ms P-R-T Axes : 26 11 71 degrees QTcB Int : 399 ms Sinus bradycardia Nonspecific ST and T wave abnormality Abnormal ECG When compared with ECG of 10-Jan-2025 11:50, Inverted T waves have replaced nonspecific T wave abnormality in Anterior leads Referred By: Vladimir Abdul Electronically Signed By: RONNELL CHOE
[2025-01-23] MEDS: oxyCODONE HCl Immed Release 5 MG TABLET PO ×3 (06:25→19:41)
[2025-01-23] MEDS: Omeprazole 20 MG CAPSULE.DR PO ×2 (06:25→16:01)
[2025-01-23 06:28] VITALS: BP 161/61; PULSE 58; RESP 16; TEMP 36.6; O2SAT 98
[2025-01-23] MEDS: DULoxetine HCl 60 MG CAPSULE.DR PO (09:22)
[2025-01-23] MEDS: diazePAM 5 MG TABLET PO ×3 (09:22→20:27)
[2025-01-23] MEDS: buPROPion HCl XL 300 MG TAB.ER.24H PO (09:23)
[2025-01-23] MEDS: Gabapentin 600 MG TABLET PO ×3 (09:23→20:27)
[2025-01-23] MEDS: Cholecalciferol (Vitamin D3) 25 MCG TABLET PO (09:23)
--- NOTE | 2025-01-23 09:37 | PC.NURSE ---
Addendum entered by Ana Paula Gardiner RN 01/23/25 09:38: Patient is a 59-year-old female presented today with having thoughts of SI for the last few months, history of polysubstance abuse. Patient plan to OD on her medication. Has been having chronic pain for the last 10 years. Alert and oriented, utilizes a walker to ambulate. Cooperative with care. Respirations even and non-labored. Pending in-patient bed search. Original Note: Medical History Hx of pilonidal cyst Degenerative disc disease, cervical Tinnitus of left ear Adenomyosis of uterus Bilateral breast cysts Sleep apnea Short-term memory loss Rheumatoid arthritis Osteoporosis SI (sacroiliac) joint dysfunction Hidradenitis suppurativa Occipital neuralgia Fibromyalgia HTN (hypertension) Lumbar disc disease Depression Overactive bladder Restless leg syndrome Peripheral neuropathy
[2025-01-23 09:47] LABS: Appearance Urine Clear; Color Urine Yellow; Glucose Urine UA Negative (Negative); Leukocyte Esterase Urine Trace (Negative); Nitrite Urine Negative (Negative); PH 6.5 (5.0-9.0); Specific Gravity - Urine 1.015 (1.005-1.025); UMIC TRIGGER UA YES; Urine Blood Negative (Negative); Urine Ketones Negative (Negative); Urine Protein Negative (Neg-Trace)
[2025-01-23 09:52] LABS: Bacteria Urine None Seen (None Seen); Hyaline Casts Urine 0-2 /LPF (0-2); RBC Urine 0-2 /HPF (0-2); Squamous Epithelial Cell Urine 0-2 /HPF (0-2); WBC Urine 0-5 /HPF (0-5)
[2025-01-23] MEDS: Metoprolol Succinate ER 50 MG TAB.ER.24H PO (10:06)
[2025-01-23] MEDS: Calcium Carbonate 750 MG TAB.CHEW PO (10:06)
[2025-01-23] MEDS: DULoxetine HCl 30 MG CAPSULE.DR PO (10:06)
[2025-01-23] MEDS: Topiramate 100 MG TABLET PO ×2 (10:06→20:27)
[2025-01-23] MEDS: Magnesium Oxide 400 MG TABLET PO (10:06)
[2025-01-23] MEDS: Gabapentin 100 MG CAPSULE PO ×3 (10:07→20:27)
[2025-01-23] MEDS: Mirabegron 50 MG TAB.ER.24H PO (11:04)
[2025-01-23 14:28] VITALS: BP 161/75; PULSE 65; RESP 16; TEMP 36.2; O2SAT 99
--- NOTE | 2025-01-23 17:57 | PC.NURSE ---
Report given to Asmita CEDEÑO. Patient to transition to N5 for futher care.
[2025-01-23] MEDS: Donepezil HCl 10 MG TABLET PO (20:27)
[2025-01-23] MEDS: Pramipexole Di-HCL 0.125 MG TABLET 0.375 MG PO (20:27)
[2025-01-23 21:07] VITALS: BP 108/51; PULSE 56; RESP 18; TEMP 36.8; O2SAT 97
--- NOTE | 2025-01-23 22:47 | PC.NURSE ---
d/c to transported by and Maria E CEDEÑO.
[2025-01-23 23:10] VITALS: BP 121/58; PULSE 62; RESP 16; TEMP 36.2; O2SAT 99
--- NOTE | 2025-01-24 02:59 | PC.ADMIT ---
Edu is a 59 year old woman, admitted to at approximately 2300 for SI with a plan to overdose on her medications. She is a high fall risk, having had approximately 5 falls in the last month. She uses a walker, and is on 5 minute checks. Her safety and skin check was remarkable for a closed scab on her lower left anterior calf, an approximately 1.5 inch long scar on her middle central back, and on her lower back she has two small scars on each side of her sacrum that are approximately one half inch each. Edu also has bruises on each AC from labs being drawn. Edu's PMH includes lupus, hydradenitis, and multiple diagnoses that contribute to her chronic pain. She states she is unable to drive due to vision issues, and feels isolated at home. She smokes medical marijuana twenty four seven for pain, and has had multiple falls at home in this last month, leading to her new usage of a walker. She stated that she has not been taught how to use a walker, and that this contributed to a fall late last week. Edu denies AH, but she endorses VH prior to admission, stating Sometimes, I think there's someone sitting in my peripheral vision next to me at home, and I'd talk to them. She is pleasant but tangential, and seems to have difficulty finding words at times.
[2025-01-24] MEDS: oxyCODONE HCl Immed Release 5 MG TABLET PO ×3 (05:04→18:20)
[2025-01-24] MEDS: Omeprazole 20 MG CAPSULE.DR PO ×2 (06:34→15:36)
[2025-01-24 08:00] VITALS: BP 144/63; PULSE 70; RESP 16; TEMP 36.5; O2SAT 94
[2025-01-24 08:32] VITALS: BP 144/63; PULSE 70
[2025-01-24] MEDS: diazePAM 5 MG TABLET PO ×3 (08:32→20:52)
[2025-01-24] MEDS: Calcium Carbonate 750 MG TAB.CHEW PO (08:32)
[2025-01-24] MEDS: Gabapentin 600 MG TABLET PO ×2 (08:32→15:36)
[2025-01-24] MEDS: Cholecalciferol (Vitamin D3) 25 MCG TABLET PO (08:32)
[2025-01-24] MEDS: Metoprolol Succinate ER 50 MG TAB.ER.24H PO (08:32)
[2025-01-24] MEDS: Gabapentin 100 MG CAPSULE PO ×2 (08:32→15:36)
[2025-01-24] MEDS: Topiramate 100 MG TABLET PO ×2 (08:32→20:51)
[2025-01-24] MEDS: DULoxetine HCl 60 MG CAPSULE.DR PO (08:32)
[2025-01-24] MEDS: Magnesium Oxide 400 MG TABLET PO (08:32)
[2025-01-24] MEDS: Mirabegron 50 MG TAB.ER.24H PO (08:33)
[2025-01-24] MEDS: buPROPion HCl XL 300 MG TAB.ER.24H PO (08:33)
--- NOTE | 2025-01-24 08:39 | PC.NURSE ---
pt reports she does not take tums I take something that starts with an A', Its a pill . Pt was unable to recall name of medication. They gave it to me in the ER TW will research further.
[2025-01-24 08:56] LABS: Estimated Average Glucose 108 mg/dL; Hemoglobin A1C 121.1952 umol/L; Hemoglobin A1c % 5.4 % (<6.0); Total Hemoglobin (HGBA1C) 3401.5938 umol/L
[2025-01-24 09:03] LABS: Anion Gap 13 (12-20)
[2025-01-24 09:17] LABS: Alanine Aminotransferase 16 U/L (0-31); Albumin Level 4.3 g/dL (3.5-5.0); Aspartate Amino Transferase 24 U/L (5-31); Bilirubin Total 0.7 mg/dL (0.0-1.0); Blood Urea Nitrogen 13 mg/dL (9-16); Calcium 9.7 mg/dL (8.4-10.2); Carbon Dioxide 26 mmol/L (22-29); Chloride 111 mmol/L (96-108); Cholesterol 255 mg/dL (<200); Creatinine Clr Calc Pharmacy 72.2; Estimated Glomerular Filt Rate > 60; Glucose Random 108 mg/dL (60-115); HDL Cholesterol 45 mg/dL (>40); LDL Cholesterol Calculated 185 mg/dL (<100); Potassium 4.1 mmol/L (3.3-5.1); Sodium 146 mmol/L (135-145); Total Protein 7.1 g/dL (6.5-8.0); Triglycerides 125 mg/dL (<150)
--- NOTE | 2025-01-24 09:18 | HO.PSYADMNOT ---
HPI Date of Service: 01/24/25 Chief Complaint: SI Sources of Information: patient interviewed, chart reviewed and crisis/core team assessment reviewed HPI Subjective Notes: [place] Warning and Conditional Voluntary Healthcare Proxy: No Guardianship: No Medical Problems Affecting Mental Status: Yes Narrative: 59-year-old female with past medical history significant for major depressive, chronic pain syndrome, and multiple chronic medical issues/surgeries, presented to [facility] on 01/22/2025 with SI in the setting of chronic pain syndrome. She notes that she went to the ED per therapist her advised. She states that she has been experiencing constant suicide ideation due to constant pain which started in 2011. She states that she has no quality of life; she lives alone, sleeps poorly for about 2-3 hours nightly, finds it very difficult to leave the house, and does not drive because she developed double vision after she had cataract surgery. She gets very depressed today extent that she finds it difficult to shower, eat, or get out of bed or her couch. Even though there safety measures, she has fallen multiple times in her home. She uses a walker for ambulation. She also misses her mother who in September 2024. She recently disclosed to a therapist that she thought about overdosing with her current medications, but she would not because she promised her friends that she would instead try CBT for her chronic pain. She notes that she has been taking her medications daily as prescribed. Her friend is a visiting nurse who helps her with medication management. She currently has suicide thoughts but denies plan. She denies SI and HI AH. She states that she sometimes sees things from her peripheral vision at night; this happens twice a week and the last time was the night before she presented to [facility]. About a month and half ago, she thought someone was talking to her, turned around, but there was no one. She notes that she is on medical marijuana. She denies illicit drug use. UTox is positive for benzos, cannabis, and opiates. She drinks alcohol occasionally. Patient seen at 11:30 on 01/24/2025. Past Psychiatric History: MDD On duloxetine, hydroxyzine, diazepam, gabapentin h/o SI, no h/o SIB Has a therapist No psychiatrist Medical Evaluation Reviewed: Yes [facility] Medical History Hx of pilonidal cyst Degenerative disc disease, cervical Tinnitus of left ear Adenomyosis of uterus Bilateral breast cysts Sleep apnea Short-term memory loss Rheumatoid arthritis Osteoporosis SI (sacroiliac) joint dysfunction Hidradenitis suppurativa Occipital neuralgia Fibromyalgia HTN (hypertension) Lumbar disc disease Depression Overactive bladder Restless leg syndrome Peripheral neuropathy Surgical History History of gynecologic surgery History of surgery Hx of shoulder surgery H/O laminectomy History of carpal tunnel release of both wrists Hx of elbow surgery Hx of hysterectomy Hx of left knee surgery Hx of arthroscopy of left knee Hx of abdominal surgery H/O LEEP History of intestinal surgery Hx of appendectomy Social History: High school graduate Has an aunt who is supportive, supportive friends, supportive 2nd ex-, an estranged brother Substance History: Medical marijuana, occasional alcohol use, no illicit drugs, UTox positive for benzos, opiates, and cannabis Trauma History: Emotional trauma from first Diagnostics Vital Signs (24Hr): Vital Signs - 24 hr 01/23/25 14:28 01/23/25 21:07 01/23/25 23:10 Temperature 97.1 F 98.3 F 97.1 F Pulse Rate 65 56 62 Respiratory Rate 16 18 16 Blood Pressure 161/75 H 108/51 L 121/58 L Pulse Oximetry 99 97 99 Oxygen Delivery Method Room Air Room Air Room Air 01/24/25 08:32 Temperature Pulse Rate 70 Respiratory Rate Blood Pressure 144/63 H Pulse Oximetry Oxygen Delivery Method BMI result Body Mass Index 34.9 Labs 01/22/25 15:11 01/24/25 08:18 Labs: Laboratory Results - last 48 hr 01/22/25 01/22/25 01/23/25 15:11 15:22 09:38 WBC 8.7 RBC 4.15 L Hgb 12.4 Hct 36.9 L MCV 88.9 MCH 29.9 MCHC 33.6 RDW 13.3 Plt Count 326 MPV 9.4 Immature Gran % (Auto) 0.2 Neut % (Auto) 53.1 Lymph % (Auto) 35.8 [place] % (Auto) 8.9 Eos % (Auto) 1.4 Baso % (Auto) 0.6 Lymph # (Auto) 3.1 [facility] # (Auto) 0.8 Eos # (Auto) 0.1 Baso # (Auto) 0.1 Abs Immat Gran (auto) 0.02 Absolute Neuts (auto) 4.6 Absolute Nucleated RBC 0.000 Nucleated RBC % (auto) 0.0 Sodium 143 Potassium 4.5 Chloride 111 H Carbon Dioxide 26 Anion Gap 11 L BUN 14 Creatinine 0.74 Estim Creat Clear Calc 79.1 Estimated GFR > 60 Random Glucose 93 Estimat Average Glucose Hemoglobin A1c % Calcium 10.1 D Total Bilirubin 0.5 AST 23 ALT 16 Alkaline Phosphatase 66 Total Protein 6.7 Albumin 4.1 Triglycerides Cholesterol LDL Cholesterol, Calc HDL Cholesterol Urine Color Yellow Urine Appearance Clear Urine pH 6.5 Ur Specific [place] 1.015 Urine Protein Negative Urine Glucose (UA) Negative Urine Ketones Negative Urine Blood Negative Urine Nitrite Negative Ur Leukocyte Esterase Trace H Urine RBC 0-2 Urine WBC 0-5 Ur Squamous Epith Cells 0-2 Urine Bacteria None Seen Hyaline Casts 0-2 Salicylates < 5.0 L Urine Opiates Screen POSITIVE H Ur Buprenorphine Scrn Not Detected Ur Oxycodone Screen Not Detected Urine Methadone Screen Not Detected Urine Fentanyl Screen Not Detected Acetaminophen < 3 Ur Barbiturates Screen Not Detected Ur Phencyclidine Scrn Not Detected Ur Amphetamines Screen Not Detected U Benzodiazepines Scrn POSITIVE H Urine Cocaine Screen Not Detected U Marijuana (THC) Screen POSITIVE H Ethyl Alcohol < 10 01/24/25 08:18 WBC RBC Hgb Hct MCV MCH MCHC RDW Plt Count MPV Immature Gran % (Auto) Neut % (Auto) Lymph % (Auto) [facility] % (Auto) Eos % (Auto) Baso % (Auto) Lymph # (Auto) [facility] # (Auto) Eos # (Auto) Baso # (Auto) Abs Immat Gran (auto) Absolute Neuts (auto) Absolute Nucleated RBC Nucleated RBC % (auto) Sodium 146 H Potassium 4.1 Chloride 111 H Carbon Dioxide 26 Anion Gap 13 BUN 13 Creatinine 0.81 Estim Creat Clear Calc 72.2 Estimated GFR > 60 Random Glucose 108 Estimat Average Glucose 108 Hemoglobin A1c % 5.4 Calcium 9.7 Total Bilirubin 0.7 AST 24 ALT 16 Alkaline Phosphatase Total Protein 7.1 Albumin 4.3 Triglycerides 125 Cholesterol 255 H LDL Cholesterol, Calc 185 H HDL Cholesterol 45 Urine Color Urine Appearance Urine pH Ur Specific [place] Urine Protein Urine Glucose (UA) Urine Ketones Urine Blood Urine Nitrite Ur Leukocyte Esterase Urine RBC Urine WBC Ur Squamous Epith Cells Urine Bacteria Hyaline Casts Salicylates Urine Opiates Screen Ur Buprenorphine Scrn Ur Oxycodone Screen Urine Methadone Screen Urine Fentanyl Screen Acetaminophen Ur Barbiturates Screen Ur Phencyclidine Scrn Ur Amphetamines Screen U Benzodiazepines Scrn Urine Cocaine Screen U Marijuana (THC) Screen Ethyl Alcohol Meds/Allergies Meds Home Medications ?Medication ?Instructions ?Recorded ?Confirmed ?Type bupropion HCl 150 mg tablet,12 hr 150 mg PO BID 07/26/23 01/22/25 History sustained-release calcium carbonate 600 mg PO DAILY 07/26/23 01/22/25 History cholecalciferol (vitamin D3) 25 25 mcg PO DAILY 07/26/23 01/22/25 History mcg (1,000 unit) capsule magnesium 250 mg tablet 500 mg PO DAILY 07/26/23 01/22/25 History pramipexole 0.125 mg tablet 0.375 mg PO BEDTIME 09/23/23 01/22/25 History metoprolol succinate 50 mg 50 mg PO DAILY 10/15/23 01/22/25 History tablet,extended release 24 hr diazepam 2 mg tablet 5 mg PO TID 10/22/23 01/22/25 History gabapentin 600 mg tablet 600 mg PO TID 10/22/23 01/22/25 History duloxetine 30 mg capsule,delayed 30 mg PO DAILY 02/07/24 01/22/25 History release mirabegron 50 mg tablet,extended 50 mg PO DAILY 02/07/24 01/22/25 History release 24 hr (Myrbetriq) alendronate 70 mg tablet 70 mg PO SA@0900 02/29/24 01/22/25 History omeprazole 20 mg capsule,delayed 20 mg PO BID@0630,1630 02/29/24 01/22/25 History release topiramate 50 mg tablet 100 mg PO BID 06/09/24 01/22/25 History donepezil 10 mg tablet 10 mg PO BEDTIME 09/21/24 01/22/25 History acetaminophen 650 mg 650 mg PO QID PRN Pain (Scale 01/22/25 01/22/25 History tablet,extended release Score 1-3) clotrimazole-betamethasone 1 1 appl topical BID PRN Rash 01/22/25 01/22/25 History %-0.05 % topical cream duloxetine 60 mg capsule,delayed 60 mg PO DAILY 01/22/25 01/22/25 History release gabapentin 100 mg tablet 100 mg PO TID 01/22/25 01/22/25 History hydrocodone 5 mg-acetaminophen 325 1 tab PO Q8H PRN pain 01/22/25 01/22/25 History mg tablet hydroxyzine HCl 50 mg tablet 50 mg PO TID 01/22/25 01/22/25 History Allergies Allergies Allergy/AdvReac Type Severity Reaction Status Date / Time codeine AdvReac Intermediate Vomiting Verified 01/22/25 14:00 silver AdvReac red itchy Verified 01/22/25 14:00 [From Tegaderm AG Mesh] rash Mental Status Exam Mental Status Exam Narrative: Appearance: Casually dressed in hospital gown Behavior: Calm and cooperative throughout the interview. Eye contact is appropriate, and there are no signs of psychomotor agitation or retardation Speech: Normal volume and prosody Thought process: logical and goal-directed Thought content: Future oriented Mood: Depressed Affect: Constricted SI: Reports HI: Denies AH: Reports VH: Reports Delusions: None Insight/judgment: Impaired insight and judgment Memory/cog: Alert, oriented x 4. grossly intact to conversational testing Assessment & Plan Assessment & Plan (1) Major depressive disorder, recurrent: Status: Acute Code(s): F33.9 - Major depressive disorder, recurrent, unspecified Plan 59-year-old female with past medical history significant for major depressive, chronic pain syndrome, and multiple chronic medical issues/surgeries, presented to [facility] on 01/22/2025 with SI in the setting of chronic pain syndrome. She notes that she went to the ED per therapist her advised. She states that she has been experiencing constant suicide ideation due to constant pain which started in 2011. She states that she has no quality of life; she lives alone, sleeps poorly for about 2-3 hours nightly, finds it very difficult to leave the house, and does not drive because she developed double vision after she had cataract surgery. She gets very depressed today extent that she finds it difficult to shower, eat, or get out of bed or her couch. Even though there safety measures, she has fallen multiple times in her home. She uses a walker for ambulation. She also misses her mother who in September 2024. She recently disclosed to a therapist that she thought about overdosing with her current medications, but she would not because she promised her friends that she would instead try CBT for her chronic pain. She notes that she has been taking her medications daily as prescribed. Her friend is a visiting nurse who helps her with medication management. She currently has suicide thoughts but denies plan. She denies SI and HI AH. She states that she sometimes sees things from her peripheral vision at night; this happens twice a week and the last time was the night before she presented to [facility]. About a month and half ago, she thought someone was talking to her, turned around, but there was no one. She notes that she is on medical marijuana. She denies illicit drug use. UTox is positive for benzos, cannabis, and opiates. She drinks alcohol occasionally. Formulation/Clinical reasoning: Major Depressive Disorder: Patient is likely experiencing major depressive disorder...? psychotic features, due to chronic persistent pain. She has chronic suicide thoughts, but currently does not have a plan. Will increase her gabapentin to 800 mg 3 times daily and duloxetine to 60 mg twice daily to target depression and chronic pain. Continue current treatment regimen. Advised to take her medications as prescribed. Instructed on the risks, benefits, and potential adverse reactions of her medications. Verbalized understanding and agreed with the treatment plan. Plan Admit to M5. CV 15 minutes check. Diagnostics as needed. Collateral contact. Gabapentin increased to 800 mg 3 times daily and duloxetine increased to 60 mg twice daily to target depression and chronic pain. Continue remainder of regime. Encouraged full milieu. Discharge planning. Patient educated on: diagnosis, medication risk/benefits and therapeutic strategies Reason for continued inpatient stay Substantial Risk for: harm to self and rapid decompensation Statement Statement: I have reviewed the history and physical and performed a pertinent examination on my patient. No changes have occurred unless specified. If the History and Physical was not performed prior to admission, the Hospitalist's service will be consulted for completing the admission physical. Time Spent With Patient Time: Total time managing care of this patient today ____ minutes.
[2025-01-24 09:29] LABS: TSH reflex Free T4 0.53 uIU/mL (0.32-4.0)
[2025-01-24] MEDS: DULoxetine HCl 30 MG CAPSULE.DR PO (12:39)
[2025-01-24 13:07] LABS: Alkaline Phosphatase 71 U/L (39-117)
[2025-01-24 20:00] VITALS: BP 108/74; PULSE 67; TEMP 36.6; O2SAT 97
[2025-01-24] MEDS: Donepezil HCl 10 MG TABLET PO (20:51)
[2025-01-24] MEDS: Pramipexole Di-HCL 0.125 MG TABLET 0.375 MG PO (20:51)
[2025-01-24] MEDS: Gabapentin 400 MG CAPSULE 800 MG PO (20:51)
[2025-01-25 01:10] VITALS: BP 118/56; PULSE 66; RESP 20; TEMP 36.4; O2SAT 100
[2025-01-25] MEDS: oxyCODONE HCl Immed Release 5 MG TABLET PO ×4 (01:15→21:22)
--- NOTE | 2025-01-25 01:40 | PC.NURSE ---
At approximately 0110, this patient complained of sternal pain. Per the patient, she fell approximately a week ago, and her sternum hit the arm of her couch. She states this is the same pain, and requested PRN medication for same. VS were obtained at that time.
[2025-01-25] MEDS: Omeprazole 20 MG CAPSULE.DR PO ×2 (06:25→15:32)
[2025-01-25 07:00] VITALS: BMI 34.2
[2025-01-25 08:00] VITALS: BP 117/56; PULSE 58; RESP 16; TEMP 36.4; O2SAT 100
[2025-01-25] MEDS: Mirabegron 50 MG TAB.ER.24H PO (09:10)
[2025-01-25] MEDS: Gabapentin 400 MG CAPSULE 800 MG PO ×3 (09:10→20:47)
[2025-01-25] MEDS: diazePAM 5 MG TABLET PO ×3 (09:10→20:49)
[2025-01-25] MEDS: Cholecalciferol (Vitamin D3) 25 MCG TABLET PO (09:10)
[2025-01-25] MEDS: buPROPion HCl XL 300 MG TAB.ER.24H PO (09:10)
[2025-01-25] MEDS: Topiramate 100 MG TABLET PO ×2 (09:10→20:49)
[2025-01-25 09:11] VITALS: BP 117/56
[2025-01-25] MEDS: Metoprolol Succinate ER 50 MG TAB.ER.24H PO (09:11)
[2025-01-25] MEDS: Milk of Magnesia 30 ML ORAL.SUSP PO (09:17)
--- NOTE | 2025-01-25 09:29 | HO.PSYCHPN ---
Subjective Subjective Date of Service: 01/25/25 Reason For Visit: SI Subjective Notes: Conditional Voluntary Healthcare Proxy: No Guardianship: No Medical Problems Affecting Mental Status: Yes Interim History: Patient notes that she is feeling better and happy today. She feels really good no and that her social service worker will set up with outpatient PHP for CBT. She currently denies SI/HI/AH/VH. Medication Compliance: Yes Side effects from medications: No Attending Groups: Intermittent Review of Systems Acute medical concerns: Yes Medical Review of Systems: unchanged Mental Status Exam Mental Status Exam Narrative: Appearance: Casually dressed Behavior: Calm and cooperative throughout the interview. Eye contact is appropriate, and there are no signs of psychomotor agitation or retardation Speech: Normal volume and prosody Thought process logical and goal-directed Thought content: Future oriented no self-harming thoughts Mood: Euthymic Affect: Full, mood-congruent SI:denies HI:denies VH/AH:none Delusions: None Insight/judgment: Impaired insight and judgment Memory/cog: Alert, oriented x 4. grossly intact to conversational testing Diagnostics Vital Signs (24Hr): Vital Signs - 24 hr 01/24/25 20:00 01/25/25 01:10 01/25/25 08:00 Temperature 97.8 F 97.5 F 97.5 F Pulse Rate 67 66 58 Respiratory Rate 20 16 Blood Pressure 108/74 118/56 L 117/56 L Pulse Oximetry 97 100 100 Oxygen Delivery Method Room Air Room Air Room Air 01/25/25 09:11 Temperature Pulse Rate Respiratory Rate Blood Pressure 117/56 L Pulse Oximetry Oxygen Delivery Method BMI result Body Mass Index 34.9 Labs 01/22/25 15:11 01/24/25 08:18 Labs: Laboratory Results - last 48 hr 01/23/25 01/24/25 09:38 08:18 Sodium 146 H Potassium 4.1 Chloride 111 H Carbon Dioxide 26 Anion Gap 13 BUN 13 Creatinine 0.81 Estim Creat Clear Calc 72.2 Estimated GFR > 60 Random Glucose 108 Estimat Average Glucose 108 Hemoglobin A1c % 5.4 Calcium 9.7 Total Bilirubin 0.7 AST 24 ALT 16 Alkaline Phosphatase 71 Total Protein 7.1 Albumin 4.3 Triglycerides 125 Cholesterol 255 H LDL Cholesterol, Calc 185 H HDL Cholesterol 45 TSH 0.53 Urine Color Yellow Urine Appearance Clear Urine pH 6.5 Ur Specific [place] 1.015 Urine Protein Negative Urine Glucose (UA) Negative Urine Ketones Negative Urine Blood Negative Urine Nitrite Negative Ur Leukocyte Esterase Trace H Urine RBC 0-2 Urine WBC 0-5 Ur Squamous Epith Cells 0-2 Urine Bacteria None Seen Hyaline Casts 0-2 Medications Medications Current Medications Acetaminophen (Acetaminophen 325 Mg Tablet) 650 mg PO Q6H PRN PRN Reason: Headache/Pain, Scale 1-10 Al Hydroxide/Mg Hydroxide (Magnesium Hydrox/Alum Hydrox 30 Ml Oral.Susp) 30 ml PO Q6H PRN PRN Reason: Heartburn/Nausea Bupropion HCl (Bupropion Hcl Xl 300 Mg Tab.Er.24h) 300 mg PO DAILY [facility] Last Admin: 01/25/25 09:10 Dose: 300 mg Calcium Carbonate (Calcium Carbonate 750 Mg Tab.Chew) 750 mg PO DAILY [facility] Last Admin: 01/25/25 09:23 Dose: Not Given Diazepam (Diazepam 5 Mg Tablet) 5 mg PO TID [facility] Last Admin: 01/25/25 09:10 Dose: 5 mg Donepezil HCl (Donepezil Hcl 10 Mg Tablet) 10 mg PO BEDTIME [facility] Last Admin: 01/24/25 20:51 Dose: 10 mg Duloxetine HCl (Duloxetine Hcl 60 Mg Capsule.Dr) 60 mg PO BID [facility] Gabapentin (Gabapentin 400 Mg Capsule) 800 mg PO TID [facility] Last Admin: 01/25/25 09:10 Dose: 800 mg Hydroxyzine HCl (Hydroxyzine Hcl 25 Mg Tablet) 25 mg PO Q6H PRN PRN Reason: mild anxiety Magnesium Hydroxide (Milk Of Magnesia 30 Ml Oral.Susp) 30 ml PO DAILY PRN PRN Reason: Constipation Last Admin: 01/25/25 09:17 Dose: 30 ml Magnesium Oxide (Magnesium Oxide 400 Mg Tablet) 400 mg PO DAILY [facility] Last Admin: 01/24/25 08:32 Dose: 400 mg Metoprolol Succinate (Metoprolol Succinate Er 50 Mg Tab.Er.24h) 50 mg PO DAILY [facility]; Protocol Last Admin: 01/25/25 09:11 Dose: 50 mg Mirabegron (Mirabegron 50 Mg Tab.Er.24h) 50 mg PO DAILY [facility] Last Admin: 01/25/25 09:10 Dose: 50 mg Nicotine Polacrilex (Nicotine Polacrilex 2 Mg Gum) 4 mg BUCCAL Q2H PRN PRN Reason: Nicotine Cravings Olanzapine (Olanzapine 5 Mg Tablet) 5 mg PO TID PRN PRN Reason: agitation Omeprazole (Omeprazole 20 Mg Capsule.) 20 mg PO BID@0630,1630 [facility] Last Admin: 01/25/25 06:25 Dose: 20 mg Oxycodone HCl (Oxycodone Hcl Immed Release 5 Mg Tablet) 5 mg PO Q6H PRN PRN Reason: Pain, Moderate(Pain Scale 4-6) Last Admin: 01/25/25 09:18 Dose: 5 mg Pramipexole Dihydrochloride (Pramipexole Di-Hcl 0.125 Mg Tablet) 0.375 mg PO BEDTIME [facility] Last Admin: 01/24/25 20:51 Dose: 0.375 mg Topiramate (Topiramate 100 Mg Tablet) 100 mg PO BID [facility] Last Admin: 01/25/25 09:10 Dose: 100 mg Trazodone HCl (Trazodone Hcl 50 Mg Tablet) 50 mg PO BEDTIME [id number] PRN PRN Reason: Insomnia Vitamin D (Cholecalciferol (Vitamin D3) 25 Mcg Tablet) 25 mcg PO DAILY [facility] Last Admin: 01/25/25 09:10 Dose: 25 mcg Allergies Allergies Allergy/AdvReac Type Severity Reaction Status Date / Time codeine AdvReac Intermediate Vomiting Verified 01/22/25 14:00 silver AdvReac red itchy Verified 01/22/25 14:00 [From Tegaderm AG Mesh] rash Assessment & Plan Assessment & Plan (1) Major depressive disorder, recurrent: Status: Acute Code(s): F33.9 - Major depressive disorder, recurrent, unspecified Plan 59-year-old female with past medical history significant for major depressive, chronic pain syndrome, and multiple chronic medical issues/surgeries, presented to [facility] on 01/22/2025 with SI in the setting of chronic pain syndrome. She notes that she went to the ED per therapist her advised. She states that she has been experiencing constant suicide ideation due to constant pain which started in 2011. She states that she has no quality of life; she lives alone, sleeps poorly for about 2-3 hours nightly, finds it very difficult to leave the house, and does not drive because she developed double vision after she had cataract surgery. She gets very depressed today extent that she finds it difficult to shower, eat, or get out of bed or her couch. Even though there safety measures, she has fallen multiple times in her home. She uses a walker for ambulation. She also misses her mother who in September 2024. She recently disclosed to a therapist that she thought about overdosing with her current medications, but she would not because she promised her friends that she would instead try CBT for her chronic pain. She notes that she has been taking her medications daily as prescribed. Her friend is a visiting nurse who helps her with medication management. She currently has suicide thoughts but denies plan. She denies SI and HI AH. She states that she sometimes sees things from her peripheral vision at night; this happens twice a week and the last time was the night before she presented to [facility]. About a month and half ago, she thought someone was talking to her, turned around, but there was no one. She notes that she is on medical marijuana. She denies illicit drug use. UTox is positive for benzos, cannabis, and opiates. She drinks alcohol occasionally. Formulation/Clinical reasoning: Major Depressive Disorder with Psychotic Features: Patient is likely experiencing major depressive disorder with psychotic features due to chronic persistent pain. She has chronic suicide thoughts, but currently does not have a plan. Will increase her gabapentin to 800 mg 3 times daily and duloxetine to 60 mg twice daily to target depression and chronic pain. Continue current treatment regimen. Advised to take her medications as prescribed. Instructed on the risks, benefits, and potential adverse reactions of her medications. Verbalized understanding and agreed with the treatment plan. 01/25: Patient notes that she is feeling better and happy today. She feels really good no and that her social service worker will set up with outpatient PHP for CBT. She currently denies SI/HI/AH/VH. Continue current treatment regimen. PT consult placed for chronic pain syndrome and fall risk. Plan Admit to M5. CV 15 minutes check. Diagnostics as needed. Collateral contact. Gabapentin increased to 800 mg 3 times daily and duloxetine increased to 60 mg twice daily to target depression and pain. Continue remainder of regime. Encouraged full milieu. Discharge planning. Patient educated on: medication risk/benefits and therapeutic strategies Reason for continued inpatient stay Substantial Risk for: rapid decompensation Time Spent With Patient Time: Total time managing care of this patient today ____ minutes.
--- NOTE | 2025-01-25 15:10 | PC.NURSE ---
At approx 1400, pt attempted to receive an oxycodone for her reported abdominal spasms. She was told it was too early for that med. She walked down to her room and fell to her knees right beside her bed. She stated her pain caused her to go down to her knees. this was unwitnessed however, Jj JESSE was right behind her doing checks. She wanted to sit on the floor until the pain started to subside. She did not strike her head. She was holding a conversation with me as i was asking her if anything else would be helpful. She denied that anything else would be helpful. I stayed with her until pain subsided. approx 10 minutes. She was able to move all extremities without difficulty and get herself into bed. Ice pack given incase she would like for her knees. very slight reddened small dime sized area to knees possibly from kneeling on the floor. She notes this happens at home as well. Bp 126/58. p 83, O2 94% t 98.2. Went back 10 minutes later to check in with pt of how she was doing, she fell asleep.
[2025-01-25] MEDS: DULoxetine HCl 60 MG CAPSULE.DR PO ×2 (15:32→20:50)
[2025-01-25 20:00] VITALS: BP 109/52; PULSE 62; RESP 18; TEMP 36.9; O2SAT 98
[2025-01-25] MEDS: Pramipexole Di-HCL 0.125 MG TABLET 0.375 MG PO (20:48)
[2025-01-25] MEDS: Donepezil HCl 10 MG TABLET PO (20:49)
[2025-01-26] MEDS: oxyCODONE HCl Immed Release 5 MG TABLET PO ×3 (03:11→18:11)
[2025-01-26] MEDS: Omeprazole 20 MG CAPSULE.DR PO ×2 (06:34→16:35)
[2025-01-26 07:59] VITALS: BP 140/65; PULSE 64; RESP 18; TEMP 36.5; O2SAT 97
[2025-01-26] MEDS: DULoxetine HCl 60 MG CAPSULE.DR PO ×2 (08:40→20:47)
[2025-01-26] MEDS: Metoprolol Succinate ER 50 MG TAB.ER.24H PO (08:41)
[2025-01-26] MEDS: Mirabegron 50 MG TAB.ER.24H PO (08:41)
[2025-01-26] MEDS: Gabapentin 400 MG CAPSULE 800 MG PO ×3 (08:41→20:47)
[2025-01-26] MEDS: diazePAM 5 MG TABLET PO ×3 (08:41→20:46)
[2025-01-26] MEDS: buPROPion HCl XL 300 MG TAB.ER.24H PO (08:42)
[2025-01-26] MEDS: Magnesium Oxide 400 MG TABLET PO (08:42)
[2025-01-26] MEDS: Cholecalciferol (Vitamin D3) 25 MCG TABLET PO (08:42)
[2025-01-26] MEDS: Topiramate 100 MG TABLET PO ×2 (08:42→20:47)
--- NOTE | 2025-01-26 09:42 | HO.PSYCHPN ---
Subjective Subjective Date of Service: 01/26/25 Reason For Visit: SI Interim History: met with patient; discussed with team pt denies any SI; she told SW where her stockpile of pills are kept and is having her ex- (her best friend) to go get them. Pt says she's lookng foward to CBT and DBT therapy and plans to dc on Wednesday. Pt discussed irritation w/ her therapist who told her to present to ED; pt irritated saying she was never actively suicidal anyway. Mental Status Exam Mental Status Exam Narrative: Appearance: Casually dressed Behavior: Calm and cooperative throughout the interview. Eye contact is appropriate, and there are no signs of psychomotor agitation or retardation Speech: Normal volume and prosody Thought process logical and goal-directed Thought content: Future oriented no self-harming thoughts Mood: Euthymic Affect: Full, mood-congruent SI:denies HI:denies VH/AH:none Delusions: None Insight/judgment: insight and judgment adequate Memory/cog: Alert, oriented x 4. grossly intact to conversational testing Diagnostics Vital Signs (24Hr): Vital Signs - 24 hr 01/25/25 20:00 01/26/25 07:59 Temperature 98.4 F 97.7 F Pulse Rate 62 64 Respiratory Rate 18 18 Blood Pressure 109/52 L 140/65 H Pulse Oximetry 98 97 Oxygen Delivery Method Room Air Room Air BMI result Body Mass Index 34.2 Labs 01/22/25 15:11 01/24/25 08:18 Labs: Laboratory Results - last 48 hr 01/24/25 08:18 Alkaline Phosphatase 71 Medications Medications Current Medications Acetaminophen (Acetaminophen 325 Mg Tablet) 650 mg PO Q6H PRN PRN Reason: Headache/Pain, Scale 1-10 Al Hydroxide/Mg Hydroxide (Magnesium Hydrox/Alum Hydrox 30 Ml Oral.Susp) 30 ml PO Q6H PRN PRN Reason: Heartburn/Nausea Bupropion HCl (Bupropion Hcl Xl 300 Mg Tab.Er.24h) 300 mg PO DAILY [facility] Last Admin: 01/26/25 08:42 Dose: 300 mg Calcium Carbonate (Calcium Carbonate 750 Mg Tab.Chew) 750 mg PO DAILY [facility] Last Admin: 01/26/25 08:41 Dose: Not Given Diazepam (Diazepam 5 Mg Tablet) 5 mg PO TID [facility] Last Admin: 01/26/25 08:41 Dose: 5 mg Donepezil HCl (Donepezil Hcl 10 Mg Tablet) 10 mg PO BEDTIME [facility] Last Admin: 01/25/25 20:49 Dose: 10 mg Duloxetine HCl (Duloxetine Hcl 60 Mg Capsule.Dr) 60 mg PO BID [facility] Last Admin: 01/26/25 08:40 Dose: 60 mg Gabapentin (Gabapentin 400 Mg Capsule) 800 mg PO TID [facility] Last Admin: 01/26/25 08:41 Dose: 800 mg Hydroxyzine HCl (Hydroxyzine Hcl 25 Mg Tablet) 25 mg PO Q6H PRN PRN Reason: mild anxiety Lactulose (Lactulose 20 Gm/30 Ml Solution) 10 gm PO DAILY PRN PRN Reason: Constipation Magnesium Oxide (Magnesium Oxide 400 Mg Tablet) 400 mg PO DAILY [facility] Last Admin: 01/26/25 08:42 Dose: 400 mg Metoprolol Succinate (Metoprolol Succinate Er 50 Mg Tab.Er.24h) 50 mg PO DAILY [facility]; Protocol Last Admin: 01/26/25 08:41 Dose: 50 mg Mirabegron (Mirabegron 50 Mg Tab.Er.24h) 50 mg PO DAILY [facility] Last Admin: 01/26/25 08:41 Dose: 50 mg Nicotine Polacrilex (Nicotine Polacrilex 2 Mg Gum) 4 mg BUCCAL Q2H PRN PRN Reason: Nicotine Cravings Olanzapine (Olanzapine 5 Mg Tablet) 5 mg PO TID PRN PRN Reason: agitation Omeprazole (Omeprazole 20 Mg Capsule.Dr) 20 mg PO BID@0630,1630 [facility] Last Admin: 01/26/25 06:34 Dose: 20 mg Oxycodone HCl (Oxycodone Hcl Immed Release 5 Mg Tablet) 5 mg PO Q6H PRN PRN Reason: Pain, Moderate(Pain Scale 4-6) Last Admin: 01/26/25 03:11 Dose: 5 mg Pramipexole Dihydrochloride (Pramipexole Di-Hcl 0.125 Mg Tablet) 0.375 mg PO BEDTIME [facility] Last Admin: 01/25/25 20:48 Dose: 0.375 mg Topiramate (Topiramate 100 Mg Tablet) 100 mg PO BID [facility] Last Admin: 01/26/25 08:42 Dose: 100 mg Trazodone HCl (Trazodone Hcl 50 Mg Tablet) 50 mg PO BEDTIME [id number] PRN PRN Reason: Insomnia Vitamin D (Cholecalciferol (Vitamin D3) 25 Mcg Tablet) 25 mcg PO DAILY [facility] Last Admin: 01/26/25 08:42 Dose: 25 mcg Allergies Allergies Allergy/AdvReac Type Severity Reaction Status Date / Time codeine AdvReac Intermediate Vomiting Verified 01/22/25 14:00 silver AdvReac red itchy Verified 01/22/25 14:00 [From Tegaderm AG Mesh] rash Assessment & Plan Assessment & Plan (1) Major depressive disorder, recurrent: Status: Acute Code(s): F33.9 - Major depressive disorder, recurrent, unspecified Plan 59-year-old female with past medical history significant for major depressive, chronic pain syndrome, and multiple chronic medical issues/surgeries, presented to [facility] ED on 01/22/2025 with SI in the setting of chronic pain syndrome. She notes that she went to the ED per therapist her advised. She states that she has been experiencing constant suicide ideation due to constant pain which started in 2011. She states that she has no quality of life; she lives alone, sleeps poorly for about 2-3 hours nightly, finds it very difficult to leave the house, and does not drive because she developed double vision after she had cataract surgery. She gets very depressed today extent that she finds it difficult to shower, eat, or get out of bed or her couch. Even though there safety measures, she has fallen multiple times in her home. She uses a walker for ambulation. She also misses her mother who in September 2024. She recently disclosed to a therapist that she thought about overdosing with her current medications, but she would not because she promised her friends that she would instead try CBT for her chronic pain. She notes that she has been taking her medications daily as prescribed. Her friend is a visiting nurse who helps her with medication management. She currently has suicide thoughts but denies plan. She denies SI and HI AH. She states that she sometimes sees things from her peripheral vision at night; this happens twice a week and the last time was the night before she presented to [facility]. About a month and half ago, she thought someone was talking to her, turned around, but there was no one. She notes that she is on medical marijuana. She denies illicit drug use. UTox is positive for benzos, cannabis, and opiates. She drinks alcohol occasionally. Formulation/Clinical reasoning: Major Depressive Disorder with Psychotic Features: Patient is likely experiencing major depressive disorder with psychotic features due to chronic persistent pain. She has chronic suicide thoughts, but currently does not have a plan. Will increase her gabapentin to 800 mg 3 times daily and duloxetine to 60 mg twice daily to target depression and chronic pain. Continue current treatment regimen. Advised to take her medications as prescribed. Instructed on the risks, benefits, and potential adverse reactions of her medications. Verbalized understanding and agreed with the treatment plan. 01/25: Patient notes that she is feeling better and happy today. She feels really good no and that her social media content manager will set up with outpatient PHP for CBT. She currently denies SI/HI/AH/VH. Continue current treatment regimen. PT consult placed for chronic pain syndrome and fall risk. 01/26 pt denies any SI; she told SW where her stockpile of pills are kept and is having her ex- (her best friend) to go get them. Pt says she's lookng foward to CBT and DBT therapy and plans to dc on Wednesday. Pt discussed irritation w/ her therapist who told her to present to ED; pt irritated saying she was never actively suicidal anyway. Plan Admit to M5. CV 15 minutes check. Diagnostics as needed. Collateral contact. Gabapentin increased to 800 mg 3 times daily and duloxetine increased to 60 mg twice daily to target depression and pain. Continue remainder of regime. Encouraged full milieu. Discharge planning. Patient educated on: diagnosis and therapeutic strategies Informed Consent: understands Reason for continued inpatient stay Substantial Risk for: stable for discharge Time Spent With Patient Time: Total time managing care of this patient today ____ minutes.
[2025-01-26 20:00] VITALS: BP 119/65; PULSE 95; RESP 16; TEMP 36.4; O2SAT 99
[2025-01-26] MEDS: Donepezil HCl 10 MG TABLET PO (20:46)
[2025-01-26] MEDS: Pramipexole Di-HCL 0.125 MG TABLET 0.375 MG PO (20:47)
[2025-01-27] MEDS: oxyCODONE HCl Immed Release 5 MG TABLET PO ×5 (00:01→23:59)
[2025-01-27] MEDS: Omeprazole 20 MG CAPSULE.DR PO ×2 (06:09→16:35)
[2025-01-27 08:00] VITALS: BP 110/58; PULSE 59; RESP 18; TEMP 36.4; O2SAT 94
[2025-01-27] MEDS: DULoxetine HCl 60 MG CAPSULE.DR PO ×2 (08:39→20:29)
[2025-01-27] MEDS: Mirabegron 50 MG TAB.ER.24H PO (08:39)
[2025-01-27] MEDS: buPROPion HCl XL 300 MG TAB.ER.24H PO (08:40)
[2025-01-27] MEDS: Magnesium Oxide 400 MG TABLET PO (08:40)
[2025-01-27] MEDS: Topiramate 100 MG TABLET PO ×2 (08:40→20:30)
[2025-01-27] MEDS: diazePAM 5 MG TABLET PO ×3 (08:40→20:30)
[2025-01-27] MEDS: Cholecalciferol (Vitamin D3) 25 MCG TABLET PO (08:40)
[2025-01-27] MEDS: Gabapentin 400 MG CAPSULE 800 MG PO ×3 (08:40→20:30)
[2025-01-27] MEDS: Metoprolol Succinate ER 50 MG TAB.ER.24H PO (08:41)
--- NOTE | 2025-01-27 11:59 | HO.PSYCHPN ---
Subjective Subjective Date of Service: 01/27/25 Reason For Visit: SI Subjective Notes: Conditional Voluntary Interim History: Patient with ongoing complaints of pain. Educated regarding the limits of medication complains of some degree of rib pain after fall from couple of weeks ago. Patient has somewhat limited resources regarding management will be referred to CBT Mental Status Exam Mental Status Exam Narrative: Appearance: Casually dressed Behavior: Calm and cooperative throughout the interview. Eye contact is appropriate, and there are no signs of psychomotor agitation or retardation Speech: Normal volume and prosody Thought process logical and goal-directed Thought content: Future oriented no self-harming thoughts Mood: depressed Affect: Full, mood-congruent SI:denies HI:denies VH/AH:none Delusions: None Insight/judgment: insight and judgment adequate Memory/cog: Alert, oriented x 4. grossly intact to conversational testing Diagnostics Vital Signs (24Hr): Vital Signs - 24 hr 01/26/25 20:00 01/27/25 08:00 Temperature 97.5 F 97.6 F Pulse Rate 95 59 Respiratory Rate 16 18 Blood Pressure 119/65 110/58 L Pulse Oximetry 99 94 Oxygen Delivery Method Room Air Room Air BMI result Body Mass Index 34.2 Labs 01/22/25 15:11 01/24/25 08:18 Medications Medications Current Medications Acetaminophen (Acetaminophen 325 Mg Tablet) 650 mg PO Q6H PRN PRN Reason: Headache/Pain, Scale 1-6 Al Hydroxide/Mg Hydroxide (Magnesium Hydrox/Alum Hydrox 30 Ml Oral.Susp) 30 ml PO Q6H PRN PRN Reason: Heartburn/Nausea Bupropion HCl (Bupropion Hcl Xl 300 Mg Tab.Er.24h) 300 mg PO DAILY [facility] Last Admin: 01/27/25 08:40 Dose: 300 mg Calcium Carbonate (Calcium Carbonate 750 Mg Tab.Chew) 750 mg PO DAILY [facility] Last Admin: 01/27/25 08:42 Dose: Not Given Diazepam (Diazepam 5 Mg Tablet) 5 mg PO TID [facility] Last Admin: 01/27/25 08:40 Dose: 5 mg Donepezil HCl (Donepezil Hcl 10 Mg Tablet) 10 mg PO BEDTIME [facility] Last Admin: 01/26/25 20:46 Dose: 10 mg Duloxetine HCl (Duloxetine Hcl 60 Mg Capsule.Dr) 60 mg PO BID [facility] Last Admin: 01/27/25 08:39 Dose: 60 mg Gabapentin (Gabapentin 400 Mg Capsule) 800 mg PO TID [facility] Last Admin: 01/27/25 08:40 Dose: 800 mg Hydroxyzine HCl (Hydroxyzine Hcl 25 Mg Tablet) 25 mg PO Q6H PRN PRN Reason: mild anxiety Lactulose (Lactulose 20 Gm/30 Ml Solution) 10 gm PO DAILY PRN PRN Reason: Constipation Magnesium Oxide (Magnesium Oxide 400 Mg Tablet) 400 mg PO DAILY [facility] Last Admin: 01/27/25 08:40 Dose: 400 mg Metoprolol Succinate (Metoprolol Succinate Er 50 Mg Tab.Er.24h) 50 mg PO DAILY [facility]; Protocol Last Admin: 01/27/25 08:41 Dose: 50 mg Mirabegron (Mirabegron 50 Mg Tab.Er.24h) 50 mg PO DAILY [facility] Last Admin: 01/27/25 08:39 Dose: 50 mg Nicotine Polacrilex (Nicotine Polacrilex 2 Mg Gum) 4 mg BUCCAL Q2H PRN PRN Reason: Nicotine Cravings Olanzapine (Olanzapine 5 Mg Tablet) 5 mg PO TID PRN PRN Reason: agitation Omeprazole (Omeprazole 20 Mg Capsule.Dr) 20 mg PO BID@0630,1630 [facility] Last Admin: 01/27/25 06:09 Dose: 20 mg Oxycodone HCl (Oxycodone Hcl Immed Release 5 Mg Tablet) 5 mg PO Q6H PRN PRN Reason: Pain, Moderate(Pain 7-10) Last Admin: 01/27/25 06:09 Dose: 5 mg Pramipexole Dihydrochloride (Pramipexole Di-Hcl 0.125 Mg Tablet) 0.375 mg PO BEDTIME [facility] Last Admin: 01/26/25 20:47 Dose: 0.375 mg Topiramate (Topiramate 100 Mg Tablet) 100 mg PO BID [facility] Last Admin: 01/27/25 08:40 Dose: 100 mg Trazodone HCl (Trazodone Hcl 50 Mg Tablet) 50 mg PO BEDTIME MRX1 PRN PRN Reason: Insomnia Vitamin D (Cholecalciferol (Vitamin D3) 25 Mcg Tablet) 25 mcg PO DAILY [facility] Last Admin: 01/27/25 08:40 Dose: 25 mcg Allergies Allergies Allergy/AdvReac Type Severity Reaction Status Date / Time codeine AdvReac Intermediate Vomiting Verified 01/22/25 14:00 silver AdvReac red itchy Verified 01/22/25 14:00 [From Tegaderm AG Mesh] rash Assessment & Plan Assessment & Plan (1) Major depressive disorder, recurrent: Status: Acute Code(s): F33.9 - Major depressive disorder, recurrent, unspecified Plan 59-year-old female with past medical history significant for major depressive, chronic pain syndrome, and multiple chronic medical issues/surgeries, presented to [facility] on 01/22/2025 with SI in the setting of chronic pain syndrome. She notes that she went to the ED per therapist her advised. She states that she has been experiencing constant suicide ideation due to constant pain which started in 2011. She states that she has no quality of life; she lives alone, sleeps poorly for about 2-3 hours nightly, finds it very difficult to leave the house, and does not drive because she developed double vision after she had cataract surgery. She gets very depressed today extent that she finds it difficult to shower, eat, or get out of bed or her couch. Even though there safety measures, she has fallen multiple times in her home. She uses a walker for ambulation. She also misses her mother who in September 2024. She recently disclosed to a therapist that she thought about overdosing with her current medications, but she would not because she promised her friends that she would instead try CBT for her chronic pain. She notes that she has been taking her medications daily as prescribed. Her friend is a visiting nurse who helps her with medication management. She currently has suicide thoughts but denies plan. She denies SI and HI AH. She states that she sometimes sees things from her peripheral vision at night; this happens twice a week and the last time was the night before she presented to [facility]. About a month and half ago, she thought someone was talking to her, turned around, but there was no one. She notes that she is on medical marijuana. She denies illicit drug use. UTox is positive for benzos, cannabis, and opiates. She drinks alcohol occasionally. Formulation/Clinical reasoning: Major Depressive Disorder with Psychotic Features: Patient is likely experiencing major depressive disorder with psychotic features due to chronic persistent pain. She has chronic suicide thoughts, but currently does not have a plan. Will increase her gabapentin to 800 mg 3 times daily and duloxetine to 60 mg twice daily to target depression and chronic pain. Continue current treatment regimen. Advised to take her medications as prescribed. Instructed on the risks, benefits, and potential adverse reactions of her medications. Verbalized understanding and agreed with the treatment plan. 01/25: Patient notes that she is feeling better and happy today. She feels really good no and that her child protective services social worker will set up with outpatient PHP for CBT. She currently denies SI/HI/AH/VH. Continue current treatment regimen. PT consult placed for chronic pain syndrome and fall risk. 01/26 pt denies any SI; she told SW where her stockpile of pills are kept and is having her ex- (her best friend) to go get them. Pt says she's lookng foward to CBT and DBT therapy and plans to dc on Wednesday. Pt discussed irritation w/ her therapist who told her to present to ED; pt irritated saying she was never actively suicidal anyway. 01/27/2025 Discussed limitations of medication treatment for chronic pain lidocaine patch ordered Discuss other ways of managing pain patient denies active SI Plan Admit to M5. CV 15 minutes check. Diagnostics as needed. Collateral contact. Gabapentin increased to 800 mg 3 times daily and duloxetine increased to 60 mg twice daily to target depression and pain. Continue remainder of regime. Encouraged full milieu. Discharge planning. Time Spent With Patient Time: Total time managing care of this patient today ____ minutes.
[2025-01-27 20:00] VITALS: BP 134/76; PULSE 60; TEMP 36.6; O2SAT 97
[2025-01-27] MEDS: Pramipexole Di-HCL 0.125 MG TABLET 0.375 MG PO (20:29)
[2025-01-27] MEDS: Donepezil HCl 10 MG TABLET PO (20:30)
[2025-01-28] MEDS: Acetaminophen 325 MG TABLET 650 MG PO ×3 (03:12→19:05)
--- NOTE | 2025-01-28 03:49 | PC.NURSE ---
Addendum entered by Marina Mcintosh RN 01/28/25 04:12: Routine X-ray ordered by THEO Daugherty. Addendum entered by Marina Mcintosh RN 01/28/25 04:09: At approximately 0400, patient was evaluated by THEO Daugherty. Original Note: At approximately 0255, this patient's roommate rang the call hein. Staff [facility] got to the room first, finding the patient on the floor next to her bed, sitting up. Patient reported to this customs entry writer that she fell out of bed while I was asleep. Patient denied hitting her head. Patient complained of left shoulder blade pain that causes her arm and hand to tingle. There were no deformities noted and the patient had full range of motion in her left arm. VS at that time were: temperature of 97.5 farenheit (skin,) 20 respirations per minute, heart rate of 68 automated, SP02 of 99%, blood pressure on right upper arm was 118/59. Patient reports This is the first time I've ever fallen out of bed. Patient is unsure how to prevent this from happening again. Dr Madison notified via [place] text, Boat Pilot notified via [place] text. Dr Waterman informed at 0320.
--- NOTE | 2025-01-28 05:05 | PM.EVENT ---
Event Note Date of Service: 01/28/25 Event Note: alerted that pt fell out of bed at 0300, she states she was sleeping and usually sleeps in a larger bed at home. she rolled on her side and fell out of bed. she asked her roommate to hit the alarm to get her help. she denies head strike or LOC. she reports L scapular pain, as she hit is on the side of the bed when she fell. she rates her pain a 4-5/10 ache. she has tingling down her arm when she fully flexes her shoulder. no headache, change in vision or pain elsewhere. PE: mild pain with palpation of L scapula, mostly at the inferior lateral aspect. pain ilicited with shoulder flexion. able to move in full ROM. A/P: xray L shoulder in AM. ice packs PRN. ibuprofen and tylenol PRN for pain. will follow pending xray results. Time Spent With Patient Time: Total time managing care of this patient today ____ minutes.
[2025-01-28] MEDS: oxyCODONE HCl Immed Release 5 MG TABLET PO ×2 (06:41→16:32)
[2025-01-28] MEDS: Omeprazole 20 MG CAPSULE.DR PO ×2 (06:41→16:24)
[2025-01-28 08:00] VITALS: BP 120/60; PULSE 74; RESP 18; TEMP 36.8; O2SAT 98
[2025-01-28] MEDS: Lidocaine 4 % Patch ADH..PATCH 1 PATCH TRANSDERMA ×2 (08:39)
[2025-01-28] MEDS: Gabapentin 400 MG CAPSULE 800 MG PO ×3 (08:40→20:23)
[2025-01-28] MEDS: diazePAM 5 MG TABLET PO ×3 (08:40→20:24)
[2025-01-28] MEDS: buPROPion HCl XL 300 MG TAB.ER.24H PO (08:40)
[2025-01-28] MEDS: Metoprolol Succinate ER 50 MG TAB.ER.24H PO (08:40)
[2025-01-28] MEDS: Topiramate 100 MG TABLET PO ×2 (08:40→20:24)
[2025-01-28] MEDS: Magnesium Oxide 400 MG TABLET PO (08:40)
[2025-01-28] MEDS: DULoxetine HCl 60 MG CAPSULE.DR PO ×2 (08:40→20:25)
[2025-01-28] MEDS: Cholecalciferol (Vitamin D3) 25 MCG TABLET PO (08:40)
[2025-01-28] MEDS: Mirabegron 50 MG TAB.ER.24H PO (08:40)
[2025-01-28] MEDS: Ibuprofen 600 MG TABLET PO (14:47)
[2025-01-28 20:00] VITALS: BP 132/64; PULSE 61; RESP 16; TEMP 36.6; O2SAT 99
[2025-01-28] MEDS: Pramipexole Di-HCL 0.125 MG TABLET 0.375 MG PO (20:22)
[2025-01-28] MEDS: Donepezil HCl 10 MG TABLET PO (20:23)
--- NOTE | 2025-01-28 23:17 | P.PNPSI_ITS ---
Subjective Subjective Date of Service: 01/28/25 Reason For Visit: SI Interim History: Per staff: patient had fallen rolled to floor. Sent for XR of shoulder. Was okay Patient was seen leaving room, with walker. Irritable, complaining about confusion about whether she will be going home I have no frickin idea what's going on . Says she was told Wednesday about going inpatient for pain management at [facility] on discharge or going home and then starting a CBD or DBT training in 2 weeks My mood was fine until I was told this stuff. Also preoccupied about her ride on Wednesday. Grooming intact. Sleep variable. APpetite fair-good. Denies SI. 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 Eye contact is appropriate, and there are no signs of psychomotor agitation or retardation Speech: Normal volume and prosody Thought process logical and goal-directed Thought content: Future oriented no self-harming thoughts Mood: depressed Affect: Full, mood-congruent SI:denies HI:denies VH/AH:none Delusions: None Insight/judgment: insight and judgment adequate Memory/cog: Alert, oriented x 4. grossly intact to conversational testing Diagnostics Vital Signs (24Hr): Vital Signs - 24 hr 01/28/25 08:00 01/28/25 20:00 Temperature 98.2 F 97.8 F Pulse Rate 74 61 Respiratory Rate 18 16 Blood Pressure 120/60 132/64 Pulse Oximetry 98 99 Oxygen Delivery Method Room Air Room Air BMI result Body Mass Index 34.2 Labs 01/22/25 15:11 01/24/25 08:18 Medications Medications Current Medications Acetaminophen (Acetaminophen 325 Mg Tablet) 650 mg PO Q6H PRN PRN Reason: Headache/Pain, Scale 1-6 Last Admin: 01/28/25 19:05 Dose: 650 mg Al Hydroxide/Mg Hydroxide (Magnesium Hydrox/Alum Hydrox 30 Ml Oral.Susp) 30 ml PO Q6H PRN PRN Reason: Heartburn/Nausea Bupropion HCl (Bupropion Hcl Xl 300 Mg Tab.Er.24h) 300 mg PO DAILY NALINI Last Admin: 01/28/25 08:40 Dose: 300 mg Calcium Carbonate (Calcium Carbonate 750 Mg Tab.Chew) 750 mg PO DAILY [facility] Last Admin: 01/28/25 08:43 Dose: Not Given Diazepam (Diazepam 5 Mg Tablet) 5 mg PO TID [facility] Last Admin: 01/28/25 20:24 Dose: 5 mg Donepezil HCl (Donepezil Hcl 10 Mg Tablet) 10 mg PO BEDTIME [facility] Last Admin: 01/28/25 20:23 Dose: 10 mg Duloxetine HCl (Duloxetine Hcl 60 Mg Capsule.) 60 mg PO BID [facility] Last Admin: 01/28/25 20:25 Dose: 60 mg Gabapentin (Gabapentin 400 Mg Capsule) 800 mg PO TID [facility] Last Admin: 01/28/25 20:23 Dose: 800 mg Hydroxyzine HCl (Hydroxyzine Hcl 25 Mg Tablet) 25 mg PO Q6H PRN PRN Reason: mild anxiety Ibuprofen (Ibuprofen 600 Mg Tablet) 600 mg PO Q8H PRN PRN Reason: shoulder pain Last Admin: 01/28/25 14:47 Dose: 600 mg Lactulose (Lactulose 20 Gm/30 Ml Solution) 10 gm PO DAILY PRN PRN Reason: Constipation Lidocaine (Lidocaine 4 % Patch Adh..Patch) 1 patch TRANSDERMA DAILY [facility]; Protocol Last Admin: 01/28/25 08:39 Dose: 1 patch Lidocaine (Lidocaine 4 % Patch Adh..Patch) 1 patch TRANSDERMA DAILY [facility]; Protocol Last Admin: 01/28/25 08:39 Dose: 1 patch Magnesium Oxide (Magnesium Oxide 400 Mg Tablet) 400 mg PO DAILY [facility] Last Admin: 01/28/25 08:40 Dose: 400 mg Metoprolol Succinate (Metoprolol Succinate Er 50 Mg Tab.Er.24h) 50 mg PO DAILY [facility]; Protocol Last Admin: 01/28/25 08:40 Dose: 50 mg Mirabegron (Mirabegron 50 Mg Tab.Er.24h) 50 mg PO DAILY [facility] Last Admin: 01/28/25 08:40 Dose: 50 mg Nicotine Polacrilex (Nicotine Polacrilex 2 Mg Gum) 4 mg BUCCAL Q2H PRN PRN Reason: Nicotine Cravings Olanzapine (Olanzapine 5 Mg Tablet) 5 mg PO TID PRN PRN Reason: agitation Omeprazole (Omeprazole 20 Mg Capsule.) 20 mg PO BID@0630,1630 [facility] Last Admin: 01/28/25 16:24 Dose: 20 mg Oxycodone HCl (Oxycodone Hcl Immed Release 5 Mg Tablet) 5 mg PO Q6H PRN PRN Reason: Pain, Moderate(Pain 7-10) Last Admin: 01/28/25 16:32 Dose: 5 mg Pramipexole Dihydrochloride (Pramipexole Di-Hcl 0.125 Mg Tablet) 0.375 mg PO BEDTIME [facility] Last Admin: 01/28/25 20:22 Dose: 0.375 mg Topiramate (Topiramate 100 Mg Tablet) 100 mg PO BID [facility] Last Admin: 01/28/25 20:24 Dose: 100 mg Trazodone HCl (Trazodone Hcl 50 Mg Tablet) 50 mg PO BEDTIME MRX1 PRN PRN Reason: Insomnia Vitamin D (Cholecalciferol (Vitamin D3) 25 Mcg Tablet) 25 mcg PO DAILY [facility] Last Admin: 01/28/25 08:40 Dose: 25 mcg Allergies Allergies Allergy/AdvReac Type Severity Reaction Status Date / Time codeine AdvReac Intermediate Vomiting Verified 01/22/25 14:00 silver AdvReac red itchy Verified 01/22/25 14:00 [From [employer]] rash Assessment & Plan Assessment & Plan (1) Major depressive disorder, recurrent: Status: Acute Code(s): F33.9 - Major depressive disorder, recurrent, unspecified Plan 59-year-old female with past medical history significant for major depressive, chronic pain syndrome, and multiple chronic medical issues/surgeries, presented to [facility] on 01/22/2025 with SI in the setting of chronic pain syndrome. She notes that she went to the ED per therapist her advised. She states that she has been experiencing constant suicide ideation due to constant pain which started in 2011. She states that she has no quality of life; she lives alone, sleeps poorly for about 2-3 hours nightly, finds it very difficult to leave the house, and does not drive because she developed double vision after she had cataract surgery. She gets very depressed today extent that she finds it difficult to shower, eat, or get out of bed or her couch. Even though there safety measures, she has fallen multiple times in her home. She uses a walker for ambulation. She also misses her mother who in September 2024. She recently disclosed to a therapist that she thought about overdosing with her current medications, but she would not because she promised her friends that she would instead try CBT for her chronic pain. She notes that she has been taking her medications daily as prescribed. Her friend is a visiting nurse who helps her with medication management. She currently has suicide thoughts but denies plan. She denies SI and HI AH. She states that she sometimes sees things from her peripheral vision at night; this happens twice a week and the last time was the night before she presented to [facility]. About a month and half ago, she thought someone was talking to her, turned around, but there was no one. She notes that she is on medical marijuana. She denies illicit drug use. UTox is positive for benzos, cannabis, and opiates. She drinks alcohol occasionally. Formulation/Clinical reasoning: Major Depressive Disorder with Psychotic Features: Patient is likely experiencing major depressive disorder with psychotic features due to chronic persistent pain. She has chronic suicide thoughts, but currently does not have a plan. Will increase her gabapentin to 800 mg 3 times daily and duloxetine to 60 mg twice daily to target depression and chronic pain. Continue current treatment regimen. Advised to take her medications as prescribed. Instructed on the risks, benefits, and potential adverse reactions of her medications. Verbalized understanding and agreed with the treatment plan. 01/25: Patient notes that she is feeling better and happy today. She feels really good no and that her healthcare social worker will set up with outpatient PHP for CBT. She currently denies SI/HI/AH/VH. Continue current treatment regimen. PT consult placed for chronic pain syndrome and fall risk. 01/26 pt denies any SI; she told SW where her stockpile of pills are kept and is having her ex- (her best friend) to go get them. Pt says she's lookng foward to CBT and DBT therapy and plans to dc on Wednesday. Pt discussed irritation w/ her therapist who told her to present to ED; pt irritated saying she was never actively suicidal anyway. 01/27/2025 Discussed limitations of medication treatment for chronic pain lidocaine patch ordered Discuss other ways of managing pain patient denies active SI Plan Admit to M5. CV 15 minutes check. Diagnostics as needed. Collateral contact. Gabapentin increased to 800 mg 3 times daily and duloxetine increased to 60 mg twice daily to target depression and pain. Continue remainder of regime. Encouraged full milieu. Discharge planning. Reason for continued inpatient stay Substantial Risk for: inability to function, rapid decompensation and med/psych decompensation Time Spent With Patient Time: Total time managing care of this patient today ____ minutes.
[2025-01-29] MEDS: oxyCODONE HCl Immed Release 5 MG TABLET PO ×2 (01:27→08:18)
[2025-01-29] MEDS: Omeprazole 20 MG CAPSULE.DR PO (06:29)
[2025-01-29 08:13] VITALS: BP 128/62; PULSE 77; RESP 16; TEMP 36.3; O2SAT 97
[2025-01-29] MEDS: Gabapentin 400 MG CAPSULE 800 MG PO (08:18)
[2025-01-29] MEDS: DULoxetine HCl 60 MG CAPSULE.DR PO (08:18)
[2025-01-29] MEDS: Mirabegron 50 MG TAB.ER.24H PO (08:18)
[2025-01-29] MEDS: Metoprolol Succinate ER 50 MG TAB.ER.24H PO (08:19)
[2025-01-29] MEDS: diazePAM 5 MG TABLET PO (08:19)
[2025-01-29] MEDS: Magnesium Oxide 400 MG TABLET PO (08:19)
[2025-01-29] MEDS: buPROPion HCl XL 300 MG TAB.ER.24H PO (08:19)
[2025-01-29] MEDS: Topiramate 100 MG TABLET PO (08:19)
[2025-01-29] MEDS: Cholecalciferol (Vitamin D3) 25 MCG TABLET PO (08:19)
[2025-01-29] MEDS: Lidocaine 4 % Patch ADH..PATCH 1 PATCH TRANSDERMA ×2 (08:21)
--- NOTE | 2025-01-29 08:54 | P.DS_ITS ---
DS: Providers Provider Date of Service: 01/29/25 Date of admission: 01/23/25 17:18 Date of discharge: 01/29/25 Primary care physician: Johann Trujillo MD Admitting clinician: Livia Lucero Consults: 01/22/25 14:00 ED CARE Team Crisis Consult Stat Comment: Reason for consultation: suidical ideation Attending physician on discharge: Rosas Madison DS: Diagnosis Discharge Diagnosis (1) Major depressive disorder, recurrent: Status: Acute DS: Medications Discharge Medications Home Medications: Home Medications ?Medication ?Instructions ?Recorded ?Confirmed bupropion HCl 150 mg tablet,12 hr 150 mg PO BID 07/26/23 01/22/25 sustained-release calcium carbonate 600 mg PO DAILY 07/26/23 01/22/25 cholecalciferol (vitamin D3) 25 25 mcg PO DAILY 07/26/23 01/22/25 mcg (1,000 unit) capsule magnesium 250 mg tablet 500 mg PO DAILY 07/26/23 01/22/25 pramipexole 0.125 mg tablet 0.375 mg PO BEDTIME 09/23/23 01/22/25 metoprolol succinate 50 mg 50 mg PO DAILY 10/15/23 01/22/25 tablet,extended release 24 hr diazepam 2 mg tablet 5 mg PO TID 10/22/23 01/22/25 gabapentin 600 mg tablet 600 mg PO TID 10/22/23 01/22/25 duloxetine 30 mg capsule,delayed 30 mg PO DAILY 02/07/24 01/22/25 release mirabegron 50 mg tablet,extended 50 mg PO DAILY 02/07/24 01/22/25 release 24 hr (Myrbetriq) alendronate 70 mg tablet 70 mg PO SA@0900 02/29/24 01/22/25 omeprazole 20 mg capsule,delayed 20 mg PO BID@0630,1630 02/29/24 01/22/25 release topiramate 50 mg tablet 100 mg PO BID 06/09/24 01/22/25 donepezil 10 mg tablet 10 mg PO BEDTIME 09/21/24 01/22/25 acetaminophen 650 mg 650 mg PO QID PRN Pain (Scale 01/22/25 01/22/25 tablet,extended release Score 1-3) clotrimazole-betamethasone 1 1 appl topical BID PRN Rash 01/22/25 01/22/25 %-0.05 % topical cream duloxetine 60 mg capsule,delayed 60 mg PO DAILY 01/22/25 01/22/25 release gabapentin 100 mg tablet 100 mg PO TID 01/22/25 01/22/25 hydrocodone 5 mg-acetaminophen 325 1 tab PO Q8H PRN pain 01/22/25 01/22/25 mg tablet hydroxyzine HCl 50 mg tablet 50 mg PO TID 01/22/25 01/22/25 Mental Status Exam Mental Status Exam Narrative: Pt is alert and oriented; behavior is cooperative, friendly and calm; patient is not in distress; dressed in casual attire with adequate hygiene; mood is described as improved and affect congruent; eye contact appropriate; Speech is normal rate, volume and prosody and not pressured; no psychomotor agitation/retardation present; thought process is organized and goal directed; Thought content is on tx; otherwise pertinent to relevant topics and without any delusional content, paranoid ideations or grandiosity; denies any SI/HI. Denies AVH and there is no evidence of perceptual disturbance. Patients insight and judgment appear intact. Data Data Completed and Pending Completed studies during hospitalization [Text1]: 01/22/25 01/22/25 01/23/25 15:11 15:22 09:38 WBC 8.7 RBC 4.15 L Hgb 12.4 Hct 36.9 L MCV 88.9 MCH 29.9 MCHC 33.6 RDW 13.3 Plt Count 326 MPV 9.4 Immature Gran % (Auto) 0.2 Neut % (Auto) 53.1 Lymph % (Auto) 35.8 [place] % (Auto) 8.9 Eos % (Auto) 1.4 Baso % (Auto) 0.6 Lymph # (Auto) 3.1 [place] # (Auto) 0.8 Eos # (Auto) 0.1 Baso # (Auto) 0.1 Abs Immat Gran (auto) 0.02 Absolute Neuts (auto) 4.6 Absolute Nucleated RBC 0.000 Nucleated RBC % (auto) 0.0 Sodium 143 Potassium 4.5 Chloride 111 H Carbon Dioxide 26 Anion Gap 11 L BUN 14 Creatinine 0.74 Estim Creat Clear Calc 79.1 Estimated GFR > 60 Random Glucose 93 Estimat Average Glucose Hemoglobin A1c % Calcium 10.1 D Total Bilirubin 0.5 AST 23 ALT 16 Alkaline Phosphatase 66 Total Protein 6.7 Albumin 4.1 Triglycerides Cholesterol LDL Cholesterol, Calc HDL Cholesterol TSH Urine Color Yellow Urine Appearance Clear Urine pH 6.5 Ur Specific [place] 1.015 Urine Protein Negative Urine Glucose (UA) Negative Urine Ketones Negative Urine Blood Negative Urine Nitrite Negative Ur Leukocyte Esterase Trace H Urine RBC 0-2 Urine WBC 0-5 Ur Squamous Epith Cells 0-2 Urine Bacteria None Seen Hyaline Casts 0-2 Salicylates < 5.0 L Urine Opiates Screen POSITIVE H Ur Buprenorphine Scrn Not Detected Ur Oxycodone Screen Not Detected Urine Methadone Screen Not Detected Urine Fentanyl Screen Not Detected Acetaminophen < 3 Ur Barbiturates Screen Not Detected Ur Phencyclidine Scrn Not Detected Ur Amphetamines Screen Not Detected U Benzodiazepines Scrn POSITIVE H Urine Cocaine Screen Not Detected U Marijuana (THC) Screen POSITIVE H Ethyl Alcohol < 10 01/24/25 08:18 WBC RBC Hgb Hct MCV MCH MCHC RDW Plt Count MPV Immature Gran % (Auto) Neut % (Auto) Lymph % (Auto) [place] % (Auto) Eos % (Auto) Baso % (Auto) Lymph # (Auto) [place] # (Auto) Eos # (Auto) Baso # (Auto) Abs Immat Gran (auto) Absolute Neuts (auto) Absolute Nucleated RBC Nucleated RBC % (auto) Sodium 146 H Potassium 4.1 Chloride 111 H Carbon Dioxide 26 Anion Gap 13 BUN 13 Creatinine 0.81 Estim Creat Clear Calc 72.2 Estimated GFR > 60 Random Glucose 108 Estimat Average Glucose 108 Hemoglobin A1c % 5.4 Calcium 9.7 Total Bilirubin 0.7 AST 24 ALT 16 Alkaline Phosphatase 71 Total Protein 7.1 Albumin 4.3 Triglycerides 125 Cholesterol 255 H LDL Cholesterol, Calc 185 H HDL Cholesterol 45 TSH 0.53 Urine Color Urine Appearance Urine pH Ur Specific [place] Urine Protein Urine Glucose (UA) Urine Ketones Urine Blood Urine Nitrite Ur Leukocyte Esterase Urine RBC Urine WBC Ur Squamous Epith Cells Urine Bacteria Hyaline Casts Salicylates Urine Opiates Screen Ur Buprenorphine Scrn Ur Oxycodone Screen Urine Methadone Screen Urine Fentanyl Screen Acetaminophen Ur Barbiturates Screen Ur Phencyclidine Scrn Ur Amphetamines Screen U Benzodiazepines Scrn Urine Cocaine Screen U Marijuana (THC) Screen Ethyl Alcohol DS: Summary Hospital Course Hospital Course: HPI: 59-year-old female with past medical history significant for major depressive, chronic pain syndrome, and multiple chronic medical issues/surgeries, presented to [facility] on 01/22/[place]25 with SI in the setting of chronic pain syndrome. She notes that she went to the ED per therapist her advised. She states that she has been experiencing constant suicide ideation due to constant pain which started in 2011. She states that she has no quality of life; she lives alone, sleeps poorly for about 2-3 hours nightly, finds it very difficult to leave the house, and does not drive because she developed double vision after she had ca taract surgery. She gets very depressed today extent that she finds it difficult to shower, eat, or get out of bed or her couch. Even though there safety measures, she has fallen multiple times in her home. She uses a walker for ambulation. She also misses her mother who in September 2024. She recently disclosed to a therapist that she thought about overdosing with her current medications, but she would not because she promised her friends that she would instead try CBT for her chronic pain. She notes that she has been taking her medications daily as prescribed. Her friend is a visiting nurse who helps her with medication management. She currently has suicide thoughts but denies plan. She denies SI and HI AH. She states that she sometimes sees things from her peripheral vision at night; this happens twice a week and the last time was the night before she presented to [facility]. About a month and half ago, she thought someone was talking to her, turned around, but there was no one. She notes that she is on medical marijuana. She denies illicit drug use. UTox is positive for benzos, cannabis, and opiates. She drinks alcohol occasionally. Hospital course/Formulation/Clinical reasoning: Major Depressive Disorder with Psychotic Features: Patient is likely experiencing major depressive disorder with psychotic features due to chronic persistent pain. She has chronic suicide thoughts, but currently does not have a plan. Will increase her gabapentin to 800 mg 3 times daily and duloxetine to 60 mg twice daily to target depression and chronic pain. Continue current treatment regimen. Advised to take her medications as prescribed. Instructed on the risks, benefits, and potential adverse reactions of her medications. Verbalized understanding and agreed with the treatment plan. 01/25: Patient notes that she is feeling better and happy today. She feels really good no and that her social security specialist will set up with outpatient PHP for CBT. She currently denies SI/HI/AH/VH. Continue current treatment regimen. PT consult placed for chronic pain syndrome and fall risk. 01/26 pt denies any SI; she told SW where her stockpile of pills are kept and is having her ex- (her best friend) to go get them. Pt says she's lookng foward to CBT and DBT therapy and plans to dc on Wednesday. Pt discussed irritation w/ her therapist who told her to present to ED; pt irritated saying she was never actively suicidal anyway. 01/27/2025 Discussed limitations of medication treatment for chronic pain lidocaine patch ordered; Discuss other ways of managing pain patient; denies active SI Pt remained in good behavioral and impulse control; she feels safe, in a good mood and ready for discharge; she remains without any SI and is future oriented and looking forward to engage in therapy. SW confirmed that patients ex- collected all extra medications. Pt is not in imminent risk for harm to self or others and appropriate to return to the community for treatment. Medications: increased Cymbata to 60mg BID Increased Gabapentin to 800 mg TID . Time spent discussing smoking cessation with patient: 3 to 10 minutes Status at Discharge Functional status at discharge: independent ambulation Overall status at discharge: patient is back to baseline Time Spent with Patient Time attestation: Total time managing care of this patient today __40__ minutes. Time spent: Greater than 30 minutes Specific discharge activities: met with pt; discussed with team; charting; perscriptions Discharge Plan Discharge Anticipated Discharge Date/Time: 01/29/25 11:30 Patient Disposition: Home, Self-Care Discharge Diagnosis: MDD, recurrent, severe with psychotic features, in partial remission Referrals: [facility]- Intake [Other] - 02/05/25 8:00 am (You are first on the cancellation list, if an appointment opens sooner Radha will call you ) [facility]- Therapy with Bonita Iverson [Other] - 01/30/25 10:45 am (In person appointment Please bring your insurance card to your appointment so a copy can be obtained.) [facility]- Psychiatric Evaluation with Soraya Lawson [Other] - 02/09/25 8:00 am (Telehealth Visit ) [facility]- Medication Management with Soraya Lawson [Other] - 03/07/25 9:40 am (Telehealth appointment ) Johann Trujillo MD [Primary Care Provider] - (Office will call to scheduled follow up appointment. ) Discharge Medications: New bupropion HCl 300 mg Tablet Extended Release 24 Hr 300 mg PO DAILY 30 Days Qty: 30 0RF lactulose 10 gram/15 mL Solution 10 g PO DAILY PRN (Reason: Constipation) 30 Days Qty: 473 0RF lidocaine [Lidocaine Pain Relief] 4 % Adhesive Patch,Medicated See Rx Instructions .ROUTE .COMPLEX PRN (Reason: pain) 30 Days Qty: 60 0RF Protocol: Apply to: Apply to: lower back Rx Instructions: apply 1 patch to lower back and one to abdominal area daily as needed Continued clotrimazole-betamethasone 1-0.05 % Cream 1 appl TOPICAL BID PRN (Reason: Rash) mirabegron 50 mg tablet extended release 24 hr 50 mg PO DAILY 30 Days Qty: 30 0RF pramipexole 0.125 mg tablet 0.375 mg PO BEDTIME 30 Days Qty: 90 0RF donepezil 10 mg tablet 10 mg PO BEDTIME 30 Days Qty: 30 0RF magnesium 250 mg tablet 500 mg PO DAILY calcium carbonate 600 mg calcium (1,500 mg) tablet 600 mg PO DAILY cholecalciferol (vitamin D3) 25 mcg (1,000 unit) capsule 25 mcg PO DAILY metoprolol succinate 50 mg tablet extended release 24 hr 50 mg PO DAILY omeprazole 20 mg capsule,delayed release(DR/EC) 20 mg PO BID@0630,1630 alendronate 70 mg tablet 70 mg PO SA@0900 topiramate 50 mg tablet 100 mg PO BID Changed gabapentin 800 mg tablet 800 mg PO TID 15 Days Qty: 45 1RF diazepam 5 mg tablet 5 mg PO TID PRN (Reason: moderate to severe anxiety) 7 Days Qty: 21 3RF duloxetine 60 mg Capsule,Delayed Release(Dr/Ec) 60 mg PO BID 30 Days Qty: 60 0RF hydrocodone-acetaminophen 5-325 mg tablet 1 tab PO Q8H PRN (Reason: severe pain) 5 Days Qty: 10 0RF Rx Instructions: Partial Fill upon patient request. Discontinued gabapentin 100 mg Tablet 100 mg PO TID hydroxyzine HCl 50 mg tablet 50 mg PO TID acetaminophen 650 mg Tablet Extended Release 650 mg PO QID PRN (Reason: Pain (Scale Score 1-3)) bupropion HCl 150 mg tablet sustained-release 12 hr 150 mg PO BID duloxetine 30 mg capsule,delayed release(DR/EC) 30 mg PO DAILY Discharge Orders: Discharge Order (Routine); Ordered 01/29/25 Ordered By: Rosas Madison Diet: Regular diet Activity on Discharge: As tolerated Stand Alone Forms: Patient Portal Discharge page, Community Support Print Language: Spanish Care Plan Goals: Maintain mood and safe behaviors Take medications as prescribed Practice coping skills Continue with outpatient providers and reach out to them as needed Health Concerns: Mood stability and behaviors Chronic back pain Fibromyalgia Hypertension GERD Plan of Treatment: Follow up with your PCP, psychiatric provider and other outpatient providers regarding above concerns Take medications as prescribed Assessment: Risk assessment at time of discharge:? Patient was interviewed prior to discharge and found to be fully oriented and without any SI or HI. Patient has improved insight and judgment and wants to continue treatment. Patient is not in imminent risk of harm to self or others and has a safety plan that includes presenting to the closest ER or calling 911 if feeling unsafe.? Patient has been observed closely by nursing and unit staff throughout admission; patient has not engaged in any behaviors that suggest dangerousness to self or others and has demonstrated appropriate behaviors and impulse control
[2025-01-29] MEDS: Naloxone HCl Nasal TAKE HOME 4 MG SPRAY 8 MG NOSTRILALT (09:03)
== END 2025-01-29 12:55 | disposition home or self-care (01) | DRG 751 ==
LOC: HO.ED 01-23 18:22 → HO.PM5 01-23 22:34
PROVIDERS: Physician Assistant Medical; Admitting Provider Psychiatry & Neurology Psychiatry; Emergency Provider Emergency Medicine; PCP Internal Medicine; Visit Provider Psychiatry & Neurology Psychiatry
DX: F33.9 Major depressive disorder, recurrent, unspecified (principal); R45.851 Suicidal ideations; G89.4 Chronic pain syndrome; Z79.899 Other long term (current) drug therapy
CPT/HCPCS: 36415; 71111; 73030; 80053; 80061; 80143; 80179; 80307; 81001; 83036; 84443; 85025; 93005; 97161; 99285; S9485

== ENCOUNTER → 2025-01-23 09:22 | Outpatient (BNV) | payer MEDICAID, SELFPAY | PROVIDERS: Emergency Provider Emergency Medicine; PCP Internal Medicine; Visit Provider Internal Medicine | DX: R00.1 Bradycardia, unspecified (principal) | CPT/HCPCS: 93010 ==

== ENCOUNTER 2025-01-23 17:18 | Outpatient (BNV) | payer MEDICAID, SELFPAY | END 2025-01-28 06:06 | PROVIDERS: Admitting Provider Psychiatry & Neurology Psychiatry; Emergency Provider Emergency Medicine; PCP Internal Medicine; Visit Provider Radiology Vascular & Interventional Radiology | DX: M19.012 Primary osteoarthritis, left shoulder (principal) | CPT/HCPCS: 73030 ==

== ENCOUNTER 2025-01-23 17:18 | Outpatient (BNV) | payer MEDICAID, SELFPAY | END 2025-01-27 16:13 | PROVIDERS: Admitting Provider Psychiatry & Neurology Psychiatry; Emergency Provider Emergency Medicine; PCP Internal Medicine; Visit Provider Specialist | DX: R07.89 Other chest pain (principal) | CPT/HCPCS: 71111 ==

== ENCOUNTER → 2025-01-23 17:18 | Outpatient (BNV) | payer OTHER, SELFPAY | PROVIDERS: Admitting Provider Psychiatry & Neurology Psychiatry; Emergency Provider Emergency Medicine; PCP Internal Medicine; Visit Provider Nurse Practitioner Family | DX: F33.2 Major depressive disorder, recurrent severe without psychotic features (principal) | CPT/HCPCS: 99231; 99232 ==

== ENCOUNTER → 2025-01-23 17:18 | Outpatient (BNV) | payer OTHER, SELFPAY | PROVIDERS: Admitting Provider Psychiatry & Neurology Psychiatry; Emergency Provider Emergency Medicine; PCP Internal Medicine; Visit Provider Psychiatry & Neurology Psychiatry | DX: F33.2 Major depressive disorder, recurrent severe without psychotic features (principal) | CPT/HCPCS: 99231 ==

== ENCOUNTER 2025-02-06 12:00 | Outpatient (RCR) | payer MEDICAID, SELFPAY ==
[2025-02-06 14:25] VITALS: BMI 34.9
[2025-02-06 14:46] VITALS: BP 132/74; PULSE 72; RESP 14; TEMP 36.4; O2SAT 97
--- NOTE | 2025-02-06 15:05 | PC.ADMIT ---
Edu is a new patient here at [facility]. She is well groomed, appears older than stated age and oriented x4. She uses a walker for stability. She was referred to [facility] following at inpatient admission at [facility] for SI. She struggles with chronic suicidal ideation interwoven with chronic pain and medical issues. She had been stockpiling her medications for a long while prior to inpatient admission. She states she had been telling her longtime therapist as much. She usually has multiple pain sites, but for a brief period it was just her back and at that time she gave away a gallon ziplock bag of fentanyl. oxycodone and lots of other things, to the police during a drug disposal event. She has had a medical marijuana card for ten years , she reports smoking several times a day to cope with the pain. This was reported to Dr Varghese and the practice consultant Adore. She has been struggling additionally since the of her elderly mom who lived with her in Sep 2024. She lived alone until yesterday. A peer, Denice who she met during her inpatient stay became her friend and she moved in yesterday to be Edu's [facility]. She is pleased to have someone to talk to and to help her. She is very disappointed that this program doesnt offer what she was told it would offer. I want a DBT program . She arrived with a medication list from home and a list of all her medical issue and procedures. A copy was made and put in her chart. A few of the medications were not verified by giselle, but she denies going anywhere else for prescriptions. She does endorse passive SI I dont think it will ever go away , she denies having intent. She denies urges to harm others. Safety tool was reviewed and given to Edu to keep.
--- NOTE | 2025-02-06 21:46 | HO.PS.ADMBH ---
HPI Date of Service: 02/06/25 Chief Complaint: SI Sources of Information: patient interviewed, chart reviewed and crisis/core team assessment reviewed HPI Narrative: Patient is a 59 yo female who was stepped down from [facility] on [facility] after 6-day admission for SI in context of chronic pain. Patient has a complex medical/surgical history, fibromyalgia and other chronic pain syndromes, degenerative joint disease, major depression, anxiety. She was discharged a week ago, there were some increases in her medication while inpatient which she has been tolerating. She is currently preoccupied with her medical issues and has upcoming appointments. She has been experiencing grief with the loss of her mother in September. She lives at home with her THEATRICAL SCENIC DESIGNER, who recently moved in with her and notes that I met her in the hospital (who was also an inpatient during her stay). She reports she has been struggling with SI over the past 2 years on account of being overwhelmed by medical problems and more recently felt unheard by her treaters. I told my PCP I felt dopey but he didnt listen . She reports having had various plans, but denies any current intention or urge to act on thoughts. She relays being focused on her health issues and upcoming appointments, overall future-orientation. Denies H, AH, VH. Past Psychiatric History: [facility] x1: 01/2025 to [facility] Denies PHP, respite or detox/rehab admissions SA: denies SIB: denies Aggression: denies Psychiatrist: new provider appointment on 02/09 with Soraya Lawson Therapist: Bonita Iverson at [facility] PCP: Johann Trujillo MD CURRENT MEDICATIONS: Wellbutrin XL 300 mg qam Cymbalta 60 mg BID gabapentin 800 mg TID diazepam 5 mg TID prn anxiety pramipexole 0.375 mg qhs topiramate 100 mg BID donepezil 10 mg qhs metoprolol ER 50 mg qd magnesium 500 mg qd lactulose 10 g prn omeprazole 20 mg BID mirabegron 50 mg qd alendronate 70 mg hydrocodone-acetaminophen q 8 hr prn lidocaine PMFSH Medical History Hx of pilonidal cyst Degenerative disc disease, cervical Tinnitus of left ear Adenomyosis of uterus Bilateral breast cysts Sleep apnea Short-term memory loss Rheumatoid arthritis Osteoporosis SI (sacroiliac) joint dysfunction Hidradenitis suppurativa Occipital neuralgia Fibromyalgia HTN (hypertension) Lumbar disc disease Depression Overactive bladder Restless leg syndrome Peripheral neuropathy Surgical History History of gynecologic surgery History of surgery Hx of shoulder surgery H/O laminectomy History of carpal tunnel release of both wrists Hx of elbow surgery Hx of hysterectomy Hx of left knee surgery Hx of arthroscopy of left knee Hx of abdominal surgery H/O LEEP History of intestinal surgery Hx of appendectomy Social History: High school graduate Has an aunt who is supportive, supportive friends, supportive 2nd ex-, an estranged brother Trauma History: Emotional trauma from first Diagnostics Vital Signs (24Hr): Vital Signs - 24 hr 02/06/25 14:46 Temperature 97.5 F Pulse Rate 72 Respiratory Rate 14 Blood Pressure 132/74 Pulse Oximetry 97 BMI result Body Mass Index 34.9 Meds/Allergies Meds Home Medications ?Medication ?Instructions ?Recorded ?Confirmed ?Type calcium carbonate 600 mg PO DAILY 07/26/23 02/06/25 History cholecalciferol (vitamin D3) 25 25 mcg PO DAILY 07/26/23 02/06/25 History mcg (1,000 unit) capsule magnesium 250 mg tablet 500 mg PO DAILY 07/26/23 02/06/25 History metoprolol succinate 50 mg 50 mg PO DAILY 10/15/23 02/06/25 History tablet,extended release 24 hr alendronate 70 mg tablet 70 mg PO SA@0900 02/29/24 02/06/25 History omeprazole 20 mg capsule,delayed 20 mg PO BID@0630,1630 02/29/24 02/06/25 History release topiramate 50 mg tablet 100 mg PO BID 06/09/24 02/06/25 History clotrimazole-betamethasone 1 1 appl topical BID PRN Rash 01/22/25 02/06/25 History %-0.05 % topical cream donepezil 10 mg tablet 10 mg PO BEDTIME 02/06/25 02/06/25 History Allergies Allergies Allergy/AdvReac Type Severity Reaction Status Date / Time codeine AdvReac Intermediate Vomiting Verified 01/22/25 14:00 silver (From Tegaderm AG AdvReac red itchy Verified 01/22/25 14:00 Mesh) rash Mental Status Exam Mental Status Exam Narrative: Alert, oriented, in no acute distress. Calm, cooperative, engaged. No psychomotor agitation or neurovegetative retardation. Eye contact maintained. Mood anxious, affect variable, mood congruent. Speech normal. Thought process linear, coherent. Thought content related to stressors, denies any hopelessness or SI. Denies any aggressive ideation or HI. No paranoia or delusional content elicited. No evidence of psychosis. Insight and judgment - fair but adequate. Assessment & Plan Assessment & Plan (1) MDD (major depressive disorder), recurrent episode: Status: Acute Code(s): F33.9 - Major depressive disorder, recurrent, unspecified (2) Other mixed anxiety disorders: Status: Acute Code(s): F41.3 - Other mixed anxiety disorders Plan Admit to [facility] VS reviewed: afebrile, BP 133/74;?72 bpm continue regular medications for now Routine lab work as indicated EKG, routine for baseline QTc for medication considerations as indicated UDS as indicated MassPat reviewed Continue to monitor as per protocol Patient educated on: diagnosis and medication risk/benefits Informed Consent: understands Reason for continued partial hosp. stay Substantial Risk for: med/psych decompensation Certification I certify that partial hospital treatment is medically necessary due to the symptoms and problems resulting from the patient's mental illness and the failure to treat the patient at the partial hospital level of care would likely result in the patient requiring inpatient psychiatric care which could not be prevented at a less intensive level of care. Time Spent With Patient Time: Total time managing care of this patient today __60__ minutes.
--- NOTE | 2025-02-08 18:34 | HO.PHPPROGNO ---
Subjective Subjective Date of Service: 02/08/25 Reason For Visit: SI Diagnostics Vital Signs (24Hr): BMI result Body Mass Index 34.9 Assessment & Plan Certification I certify that partial hospital treatment is medically necessary due to the symptoms and problems resulting from the patient's mental illness and the failure to treat the patient at the partial hospital level of care would likely result in the patient requiring inpatient psychiatric care which could not be prevented at a less intensive level of care. Total time managing care of this patient today ____ minutes. Discharge Plan Discharge Attending provider: Leticia Varghese Medications: Continued clotrimazole-betamethasone 1-0.05 % Cream 1 appl TOPICAL BID PRN (Reason: Rash) bupropion HCl 300 mg Tablet Extended Release 24 Hr 300 mg PO DAILY 30 Days Qty: 30 0RF lidocaine [Lidocaine Pain Relief] 4 % Adhesive Patch,Medicated See Rx Instructions .ROUTE .COMPLEX PRN (Reason: pain) 30 Days Qty: 60 0RF Protocol: Apply to: Apply to: lower back Rx Instructions: apply 1 patch to lower back and one to abdominal area daily as needed gabapentin 800 mg tablet 800 mg PO TID 15 Days Qty: 45 1RF diazepam 5 mg tablet 5 mg PO TID PRN (Reason: moderate to severe anxiety) 7 Days Qty: 21 3RF Rx Instructions: can take 1/2 tablet midday and evening per Dr Trujillo duloxetine 60 mg Capsule,Delayed Release(Dr/Ec) 60 mg PO BID 30 Days Qty: 60 0RF mirabegron 50 mg tablet extended release 24 hr 50 mg PO DAILY 30 Days Qty: 30 0RF hydrocodone-acetaminophen 5-325 mg tablet 1 tab PO Q8H PRN (Reason: severe pain) 5 Days Qty: 10 0RF Rx Instructions: Partial Fill upon patient request. pramipexole 0.125 mg tablet 0.375 mg PO BEDTIME 30 Days Qty: 90 0RF Rx Instructions: take 2 hours before bedtime donepezil 10 mg tablet 10 mg PO BEDTIME Patient Comments: Per Grecia Pierce GEAR CUTTER (Dr Roberson's office) She is to take 2 tablets a day Rx Instructions: see below magnesium 250 mg tablet 500 mg PO DAILY calcium carbonate 600 mg calcium (1,500 mg) tablet 600 mg PO DAILY cholecalciferol (vitamin D3) 25 mcg (1,000 unit) capsule 25 mcg PO DAILY metoprolol succinate 50 mg tablet extended release 24 hr 50 mg PO DAILY omeprazole 20 mg capsule,delayed release(DR/EC) 20 mg PO BID@0630,1630 alendronate 70 mg tablet 70 mg PO SA@0900 topiramate 50 mg tablet 100 mg PO BID No Action lactulose 10 gram/15 mL Solution 10 g PO DAILY PRN (Reason: Constipation) 30 Days Qty: 473 0RF Patient Education: Depression (ED), Depression (DC) Print Language: Puerto Rican
== END 2025-02-06 23:59 | disposition home or self-care (01) ==
LOC: HO.PHPA 12:00
PROVIDERS: Visit Provider Psychiatry & Neurology Psychiatry
DX: F33.9 Major depressive disorder, recurrent, unspecified (principal); F41.3 Other mixed anxiety disorders; Z79.899 Other long term (current) drug therapy
CPT/HCPCS: 90791; 90853

== ENCOUNTER → 2025-02-06 12:00 | Outpatient (BNV) | payer OTHER, SELFPAY | PROVIDERS: Visit Provider Psychiatry & Neurology Psychiatry | DX: F33.1 Major depressive disorder, recurrent, moderate (principal); F41.3 Other mixed anxiety disorders | CPT/HCPCS: 99499 ==

== ENCOUNTER 2025-02-26 12:22 | Outpatient (AMB) | payer MEDICAID, SELFPAY ==
--- NOTE | 2025-02-26 12:23 | MHC.OFFVIS ---
Intake Visit Reasons: Procedure Discussion Allergies codeine Adverse Reaction (Intermediate, Verified 01/22/25 14:00) Vomiting silver (From Tegaderm AG Mesh) Adverse Reaction (Verified 01/22/25 14:00) red itchy rash HPI HPI Procedure Discussion: Details: History of Present Illness The patient is a 59-year-old female presenting with chronic pain management concerns. The patient reports post-surgical head pain following a recent procedure, initially well-managed but exacerbated by a crisis situation. She experienced severe pain leading to suicidal ideation, resulting in a week-long stay in a crisis unit. She has been experiencing ear pain, which she attributes to stress from the crisis unit experience. The patient describes abdominal spasms occurring daily, with pain levels reaching 8 out of 10, reducing to 5-6, and persisting throughout the day. Chronic back pain persists, with a history of nerve stimulator use providing relief until lead migration occurred during care for her mother. The patient has not yet undergone the necessary revision due to a waiting period post-head surgery. Right hip pain is severe, affecting mobility and daily activities, with plans to consult an weatherization specialist for further evaluation. The patient reports bilateral foot swelling, preventing her from wearing shoes, which has persisted for over a week. Pain Description - Post-surgical head pain initially well-managed, exacerbated by stress - Abdominal spasms occurring daily, pain levels reaching 8 out of 10, reducing to 5-6 - Chronic back pain with history of nerve stimulator use, relief until wire dislodgement - Right hip pain severe, affecting mobility and daily activities - Bilateral foot swelling, preventing wearing shoes Pain Management - Affect: Pain has led to suicidal ideation, impacting psychological wellbeing - Analgesia: Pain levels reach 8 out of 10, reducing to 5-6 - Activities of Daily Living: Right hip pain affects mobility and daily activities [facility] Medical History Hx of pilonidal cyst Degenerative disc disease, cervical Tinnitus of left ear Adenomyosis of uterus Bilateral breast cysts Sleep apnea Short-term memory loss Rheumatoid arthritis Osteoporosis SI (sacroiliac) joint dysfunction Hidradenitis suppurativa Occipital neuralgia Fibromyalgia HTN (hypertension) Lumbar disc disease Depression Overactive bladder Restless leg syndrome Peripheral neuropathy Surgical History History of gynecologic surgery History of surgery Hx of shoulder surgery H/O laminectomy History of carpal tunnel release of both wrists Hx of elbow surgery Hx of hysterectomy Hx of left knee surgery Hx of arthroscopy of left knee Hx of abdominal surgery H/O LEEP History of intestinal surgery Hx of appendectomy Family History Mother No problems noted. Father No problems noted. Social History Household Members: None Housing: Unknown / Unable to assess Do you presently have visiting nurse or other home services: No Alcohol intake: former Patient Tobacco Use Status: Former Tobacco user Tobacco use type: Cigarette e-Cigarette/Vaping Use: Never Used Second Hand Smoke Exposure: Yes Substance Use Type: Marijuana service: No Sexual orientation: Straight/Heterosexual Telehealth Telehealth Telehealth Platform: [employer] Location of provider rendering services: practice address Location of patient: address on file Patient Identification confirmed using: Name, : Yes Telehealth method: video Patient verbally consented to treatment: Yes Patient verbally consented to billing insurance company: Yes Patient informed of any privacy concerns related to visit: Yes Minutes spent on Phone/Video with Pt.: 10 Assessment & Plan Assessment & Plan (1) Cluneal neuropathy: Code(s): G58.8 - Other specified mononeuropathies Category: Medical (2) Sacroiliac joint dysfunction: Code(s): M53.3 - Sacrococcygeal disorders, not elsewhere classified Category: Medical Plan Plan - Request insurance authorization for bilateral cluneal nerve stimulator revision to address the lead migration for cheondoism of effective therapy for chronic back pain. - Plan to consult weatherization specialist for right hip pain evaluation. Patient was informed and verbally consented to the use of an ambient scribe for clinic note documentation during this visit. Discussion Notes I discussed with the patient the plan to request insurance authorization for the nerve stimulator revision to address her chronic back pain. We also talked about consulting an weatherization specialist for her right hip pain evaluation. The patient was informed about the next steps and agreed to proceed with the outlined plan. Patient Instructions - Await insurance authorization for nerve stimulator revision. - Schedule an appointment with an weatherization specialist for hip evaluation. Coding Level of Care Code Tele Est Pt Level 3 (63386) Diagnoses Cluneal neuropathy G58.8 Sacroiliac joint dysfunction M53.3
--- OUTSIDE RECORDS SUMMARY | 2025-02-26 13:01 | XMS_ITS | Clinical Summary ---
Author Organization [facility] Address [address] [place] [address] Phone Care Team Providers Care Wafer Polishing Worker Name Role Phone Johann Trujillo MD Primary Care Provider [phone] Allergies Active Allergy Reactions Criticality Noted Date [...] 91 09/06/2024 3:25 AM EST Temperature 36.8 C (98.2 F) 09/06/2024 5:33 AM EST Respiratory Rate 18 09/06/2024 5:33 AM EST [...] 2024 09/23/2022, 03/27/2022, 08/21/2021, Additional history exists Influenza Vaccine (#1) 2025 , 06/02/2022, 07/13/2020, Additional history exists Hypertension/CHF/CAD Annual BMP Blood Test 09/05/2025 09/05/2024 DTaP,Tdap,and Td Vaccines (2 - Td or Tdap) 06/05/2028 06/05/2018 Osteoporosis Screening (Bone Density Screening) 10/29/2029 10/30/2019 Zoster Vaccines Completed 11/20/2018, 09/17/2018 HIB Vaccines Aged Out No longer eligi [...] METABOLIC PANEL STAT 09/05/2024 4:29 PM EST [facility] SCREENING DIGITAL Routine 01/23/2022 4:44 PM EDT Encounter for screening mammogram for malignant neoplasm of breast [facility] DEXA AXIAL SKELETON Routine 10/30/2019 8:08 AM EDT Encounter for screening for osteoporosis from Last 3 Months or Most Recently Relevant to Health Maintenance Results * Comprehensive metabolic panel (09/05/2024 4:29 PM EST) Sodium 140 133 - 145 mmol/L LAB CHEMISTRY METHOD 09/05/2024 5:21 PM [facility] Potassium 4.5 3.5 - 5.5 mmol/L LAB CHEMISTRY METHOD 09/05/2024 5:21 PM [facility] Chloride 110 96 - 110 mmol/L LAB CHEMISTRY METHOD 09/05/2024 5:21 PM [facility] CO2 26 21 - 32 mmol/L LAB CHEMISTRY METHOD 09/05/2024 5:21 PM [facility] Anion Gap 4 3 - 11 LAB CHEMISTRY METHOD 09/05/2024 5:21 PM [facility] Glucose 95 70 - 100 mg/dL LAB CHEMISTRY METHOD 09/05/2024 5:21 PM [facility] BUN 16 5 - 25 mg/dL LAB CHEMISTRY METHOD 09/05/2024 5:21 PM [facility] Creatinine 0.98 0.50 - 1.10 mg/dL LAB CHEMISTRY METHOD 09/05/2024 5:21 PM [facility] eGFR 68 >=60 mL/min/1. 73m2 LAB CHEMISTRY METHOD 09/05/2024 5:21 PM [facility] Comment:Calculation based on the Chronic Kidney Disease Epidemiology Collaboration (CKD-EPI) equation refit without adjustment for race. BUN/Creatinine Ratio 16.3 LAB CHEMISTRY METHOD 09/05/2024 5:21 PM [facility] Calcium 9.0 8.5 - 10.5 mg/dL LAB CHEMISTRY METHOD 09/05/2024 5:21 PM [facility] AST (SGOT) 22 10 - 42 unit/L LAB CHEMISTRY METHOD 09/05/2024 5:21 PM [facility] ALT (SGPT) 27 10 - 60 unit/L LAB CHEMISTRY METHOD 09/05/2024 5:21 PM [facility] Alkaline Phosphatase 50 42 - 121 unit/L LAB CHEMISTRY METHOD 09/05/2024 5:21 PM [facility] Total Protein 6.8 6.0 - 8.0 g/dL LAB CHEMISTRY METHOD 09/05/2024 5:21 PM [facility] Albumin 3.8 3.2 - 5.0 g/dL LAB CHEMISTRY METHOD 09/05/2024 5:21 PM [facility] Total Bilirubin 0.3 0.0 - 1.4 mg/dL LAB CHEMISTRY METHOD 09/05/2024 5:21 PM [facility] Blood Venous blood specimen / Unknown Venipuncture / Unknown 09/05/2024 4:29 PM EST 09/05/2024 4:51 PM EST us Harris Fay MD LAB BLOOD ORDERABLES Final Resu lt [facility] [address] [place] [address], * TERELL SCREENING DIGITAL (01/23/2022 4:44 PM EDT) Anatomical Region Laterality Modality Mammography 01/23/2022 11:1 5 AM EDT Narrative 01/23/2022 4:44 PM EDT [facility] Diagnostic Imaging Department [address] [place] [address] Patient: FAUSTO SUÁREZ Ellen /Age/Sex: 1965 - 56 - F Unit#: [id number] Location/Status: [facility] CLI Mnemonic/Ordering Site: [facility] Ordering Physician: KATHEIRN ALVARADO MD Terell Screening Digital - 01/23/22 - 1154 History: Bilateral breast cancer screening. Technique: Digital mammography. Conventional CC and MLO projections with tomosynthesis MLO views and computer aided detection. Comparison: [facility] 01/27/2021 dating back to 02/10/2016. Findings: Breast tissue consists of fatty and fibroglandular elements (category b density) bilaterally (as calculated by [employer] software). There is no suspicious group of microcalcifications, mass, architectural distortion or suspicious change in breast tissue density. Impression: No evidence of malignancy. BIRADS category 1; negative study, 3341F 02883, [id number] Note: Patient information entered into a reminder system with a target due date for the next mammogram: CPT II 7025F Dictating Physician: CANDELARIO ENRIQUEZ MD Electronically Signed by: CANDELARIO ENRIQUEZ MD Dic Date/Time: 01/23/22 1640 Sign date/Time: 01/23/22 1644 Procedure Note Candelario Enriquez MD - 08/12/2022 [facility] Diagnostic Imaging Department [address] [place] [address] Patient: FAUSTO SUÁREZ Ellen /Age/Sex: 1965 - 56 - F Unit#: [id number] Location/Status: [facility] CLI Mnemonic/Ordering Site: [facility] Ordering Physician: KATHERIN ALVARADO MD Terell Screening Digital - 01/23/22 - 1154 History: Bilateral breast cancer screening. Technique: Digital mammography. Conventional CC and MLO projectionswith tomosynthesis MLO views and computer aided detection. Comparison: [facility] 01/27/2021 dating back to 02/10/2016. Findings: Breast tissue consists of fatty and fibroglandular elements (category b density) bilaterally (as calculated by [employer]). There is no suspicious group of microcalcifications, mass, architectural distortion or suspicious change in breast tissue density. Impression: No evidence of malignancy. BIRADS category 1; negative study, 3341F 72731, 81859 Note: Patient information entered into a reminder system with a target duedate for the next mammogram: CPT II 7025F Dictating Physician: CANDELARIO ENRIQUEZ MD Electronically Signed by: CANDELARIO ENRIQUEZ MD Dic Date/Time: 01/23/22 1640 Sign date/Time: 01/23/22 2512 us Katherin Alvarado MD IMG BI PROCEDURES Final Resu lt * TERELL DEXA AXIAL SKELETON (10/30/2019 8:08 AM EDT) Anatomical Region Laterality Modality Mammography 10/30/2019 7:36 AM EDT Narrative 10/30/2019 8:08 AM EDT [facility] Diagnostic Imaging Department [address] [place] [address] Patient: FAUSTO SUÁREZ Ellen Britt/Age/Sex: 1965 - 53 - F Unit#: [id number] Location/Status: SPDIMAM/REG CLI [facility] Ordering Physician: JO-ANN LUX MD [facility] Dexa Axial Skeleton - 10/30/19 - 0759 HISTORY: The patient is a 53-year-old postmenopausal female with clinical concern for metabolic bone disease. FINDINGS: Dual [...] 85% of that of age matched controls. This yields a T-score of -1.7 and a Z-score of -1.1 which is diagnostic of osteopenia. However, the T-score of the left femoral neck is -2.5 which is diagnostic of osteoporosis. IMPRESSION: 1. Osteoporosis. There has been a decrease of 10.4% in bone mineral density in the lumbar spine since the prior examination of 09/10/2017. There has been a decrease of 8.8% in bone mineral density in the right femur and a decrease of 6.2% in bone mineral density in the left femur. 2. FRAX analysis yields a 10-year probability of major osteoporotic fracture of 7.1% and a 10-year probability of hip fracture of 1.2%. Code 25816 Dictating Physician: GABRIELLA PIERRE MD Electronically Signed by: GABRIELLA PIERRE MD Dic Date/Time: 10/30/19805 Sign date/Time: 10/30/19807 Procedure Note Gabriella Pierre - 08/11/2022 [facility] Diagnostic Imaging Department [address] [place] [address] Patient: FAUSTO SUÁREZ Ellen CostaB./Age/Sex: 1965 - 53 - F Unit#: [id number] Location/Status: [facility] Mnemonic[facility] Ordering Physician: JO-ANN LUX MD Terell Dexa Axial Skeleton - [...] density of the femurs bilaterally is 0.796 gm/eq5advor is 79% of that of young normals [...] probability of hip fracture of 1.2%. Code 19197 Dictating Physician: GABRIELLA PIERRE MD Electronically Signed by: GABRIELLA PIERRE MD Dic Date/Time: 10/30/19 08 Sign date/Time: 10/30/19 0808 Jo-Ann Lux MD IMG BI PROCEDURES Final Result from Last 3 Months or Most Recently Relevant to Health Maintenance Insurance MEDICAID - [place] Care Teams Wafer Polishing Worker Relationship Specialty Start Date End Date Johann Trujillo MD [address] [facility] [place] PCP - General Internal Medicine 09/06/24
== END 2025-02-26 12:23 | disposition home or self-care (01) ==
LOC: HO.PMC 12:22
PROVIDERS: Visit Provider Internal Medicine
DX: G58.8 Other specified mononeuropathies (principal); M53.3 Sacrococcygeal disorders, not elsewhere classified
CPT/HCPCS: 99213

== ENCOUNTER 2025-03-14 15:59 | Outpatient (AMB) | payer MEDICAID, SELFPAY ==
--- OUTSIDE RECORDS SUMMARY | 2025-03-14 16:02 | XMS_ITS | Clinical Summary ---
Author Organization [facility] Address [address] [place] [address] Phone Care Team Providers Care Bin Worker Name Role Phone Johann Trujillo MD Primary Care Provider [phone] Allergies Active Allergy Reactions Criticality Noted Date [...] Panel) 07/22/2022 Colorectal Cancer Screening: Colonoscopy 07/22/2022 HIV Screening 07/22/2022 Hepatitis C Screening 07/22/2022 Lung Cancer Screening (Low Dose CT) 07/22/2022 Social Influencers of Health Screening 07/22/2022 Breast Cancer Screening 01/24/2024 01/24/20 22, 01/21/2021, 04/29/2019, Additional history exists COVID-19 Vaccine ( season) 2024 09/23/2022, 03/27/2022, 08/21/2021, Additional history exists Depression Screening 08/23/2024 Influenza Vaccine (#1) 2025 , 06/02/2022, 07/13/2020, [...] METABOLIC PANEL STAT 09/05/2024 4:29 PM EST [facility] SCREENING DIGITAL Routine 01/23/2022 4:44 PM EDT Encounter for screening mammogram for malignant neoplasm of breast [facility] DEXA AXIAL SKELETON Routine 10/30/2019 [...] [facility] Comment:Calculation based on the Chronic [...] MD LAB BLOOD ORDERABLES Final Resu lt [facility] [address] [place] [address], * TERELL SCREENING DIGITAL (01/23/2022 4:44 PM EDT) Anatomical Region Laterality Modality Mammography 01/23/2022 11:1 5 AM EDT Narrative 01/23/2022 4:44 PM EDT [facility] Diagnostic Imaging Department [address] [place] [address] Patient: EDU SUÁREZ Ellen /Age/Sex: 1965 - 56 - F Unit#: [id number] Location/Status: SPDIMAM/REG CLI Mnemonic/Ordering Site: [facility] Ordering Physician: KATHERIN ALVARADO MD Terell Screening Digital - 01/23/22 - 1154 History: Bilateral breast cancer screening. Technique: Digital mammography. Conventional CC and MLO projections with tomosynthesis MLO views and computer aided detection. Comparison: [facility] 01/27/2021 dating back to 02/10/2016. Findings: Breast tissue consists of fatty and fibroglandular elements (category b density) bilaterally (as calculated by [employer] software). There is no suspicious group of microcalcifications, mass, architectural distortion or suspicious change in breast tissue density. Impression: No evidence of malignancy. BIRADS category 1; negative study, 3341F 71808, 02821 Note: Patient information entered into a reminder system with a target due date for the next mammogram: CPT II 7025F Dictating Physician: CANDELARIO ENRIQUEZ MD Electronically Signed by: CANDELARIO ENRIQUEZ MD Dic Date/Time: 01/23/22 2069 Sign date/Time: 01/23/22 5697 Procedure Note Candelario Enriquez MD - 08/12/2022 [facility] Diagnostic Imaging Department [address] [place] [address] Patient: EDU SUÁREZ Ellen /Age/Sex: 1965 - 56 - F Unit#: [id number] Location/Status: SPDIMAM/REG CLI Mnemonic/Ordering Site: [facility] Ordering Physician: KATHERIN ALVARADO MD Terell Screening Digital - 01/23/22 - 1154 History: Bilateral breast cancer screening. Technique: Digital mammography. Conventional CC and MLO projectionswith tomosynthesis MLO views and computer aided detection. Comparison: [facility] 01/27/2021 dating back to 02/10/2016. Findings: Breast tissue consists of fatty and fibroglandular elements (category b density) bilaterally (as calculated by [employer]). There is no suspicious group of microcalcifications, mass, architectural distortion or suspicious change in breast tissue density. Impression: No evidence of malignancy. BIRADS category 1; negative study, 3341F 16836, 01278 Note: Patient information entered into a reminder system with a target duedate for the next mammogram: CPT II 7025F Dictating Physician: CANDELARIO ENRIQUEZ MD Electronically Signed by: CANDELARIO ENRIQUEZ MD Dic Date/Time: 01/23/22 1640 Sign date/Time: 01/23/22 6489 us Katherin Alvarado MD IMG BI PROCEDURES Final Resu lt * TERELL DEXA AXIAL SKELETON (10/30/2019 8:08 AM EDT) Anatomical Region Laterality Modality Mammography 10/30/2019 7:36 AM EDT Narrative 10/30/2019 8:08 AM EDT [facility] Diagnostic Imaging Department [address] [place] [address] Patient: EDU SUÁREZ Ellen /Age/Sex: 1965 - 53 - F Unit#: [id number] Location/Status: [facility] CLI Mnemonic[facility] Ordering Physician: GERARDO LUX MD [facility] Dexa Axial Skeleton - 10/30/19758 HISTORY: The patient is a 53-year-old postmenopausal [...] probability of hip fracture of 1.2%. Code 15682 Dictating Physician: GABRIELLA PIERRE MD Electronically Signed by: GABRIELLA PIERRE MD Dic Date/Time: 10/30/19805 Sign date/Time: 10/30/19 08 Procedure Note Gabriella Pierre - 08/11/2022 [facility] Diagnostic Imaging Department [address] [place] [address] Patient: EDU SUÁREZ Ellen CostaB./Age/Sex: 1965 - 53 - F Unit#: [id number] Location/Status: [facility] Mnemonic/Ordering Site: [facility] Ordering Physician: GERARDO LUX MD [facility] Dexa Axial Skeleton - 10/30/19 7653 HISTORY: The patient is a 53-year-old postmenopausal [...] density of the femurs bilaterally is 0.796 gm/gx3kxmly is 79% of that of young normals [...] probability of hip fracture of 1.2%. Code 80934 Dictating Physician: GABRIELLA PIERRE MD Electronically Signed by: GABRIELLA PIERRE MD Dic Date/Time: 10/30/19 0806 Sign date/Time: 10/30/19 0808 Gerardo Lux MD IMG BI PROCEDURES Final Result from Last 3 Months or Most Recently Relevant to Health Maintenance Insurance [place] - [place] Care Teams Bin Worker Relationship Specialty Start Date End Date Johann Trujillo MD [address] [place] [address] PCP - General Internal Medicine 09/06/24
--- OUTSIDE RECORDS SUMMARY | 2025-03-14 16:02 | XMS_ITS | Clinical Summary ---
Author Organization [facility] Address [address] [place] [phone] Phone Care Team Providers Care Right Of Way Maintenance Supervisor Name Role Phone Johann Trujillo MD Primary Care Provider [phone] Allergies Active Allergy Reactions Criticality Noted Date Comments Codeine Nausea and/or Vomiting 11/28/2014 Iodinated Contrast Media 11/28/2014 UNSPECIFIED Contrast Media - [place] warm and sick Adhesive Tape-Silicones Rash Low 12/19/2024 Medications solifenacin (VESICARE) 10 MG tablet Take 10 mg by mouth nightly at bedtime. Active ID-duloxetine DR ([id number]) 60 mg capsule nightly at bedtime. 07/02/2021 Active DULoxetine (CYMBALTA) 30 MG capsule Take 30 mg by mouth nightly at bedtime. 10/02/2021 Active mirabegron (MYRBETRIQ) 25 mg Tb24 Take 25 mg by mouth. 11/20/2021 Active calcium carbonate (OS-GENOVEVA) 1,500 mg (600 mg elemental) tablet Take 600 mg by mouth. Active magnesium oxide 500 mg Cap Take by mouth. Active gabapentin (NEURONTIN) 600 MG tablet Take 600 mg by mouth 3 (three) times a day. Active pramipexole (MIRAPEX) 0.125 MG tablet Take 0.375 mg by mouth nightly at bedtime. Active diazePAM (VALIUM) 2 MG tablet Take 5 mg by mouth 3 (three) times a day. 03/23/2023 Active buPROPion (WELLBUTRIN SR) 150 MG SR 12 hr tablet 2 (two) times a day. 04/23/2022 Active ID-vitamin D3 or placebo [phone] iu capsule Active hydrOXYzine (VISTARIL) 25 MG capsule Take 50 mg by mouth 3 (three) times a day as needed for anxiety. Active Medication-Free Text THC tincture all day long Active oxyCODONE 5 MG immediate release tablet Take 1 tablet (5 mg total) by mouth every 6 (six) hours as needed. Partial fill ok 6 tablet 04/30/2023 Active omeprazole (PRILOSEC) 20 MG tablet Take 20 mg by mouth daily. Active alendronate (FOSAMAX) 70 MG tablet Take 70 mg by mouth every 7 days. Take in the morning with a full glass of water, on an empty stomach, and do not take anything else by mouth or lie down for the next 30 min. Active donepeziL (ARICEPT) 10 MG tablet Take 10 mg by mouth nightly at bedtime. Active metoprolol succinate (TOPROL-XL) 100 MG 24 hr tablet Take 100 mg by mouth daily. Active topiramate (TOPAMAX) 50 MG tablet TAKE 1 TABLET BY MOUTH TWICE DAILY FOR 2 WEEKS THEN TAKE 2 TABLETS BY MOUTH TWICE DAILY FOR 30 DAYS DIRECTED 11/30/2024 Active oxyCODONE 5 MG immediate release tablet Take 1 tablet (5 mg total) by mouth every 4 (four) hours as needed for pain (specific location in comments). Partial fill ok 10 tablet 01/09/2025 Active gabapentin (NEURONTIN) 100 MG capsule Take 6 capsules (600 mg total) by mouth 3 (three) times a day. 20 capsule 01/09/2025 Active Active Problems Problem Noted Date Diagnosed Date Occipital neuralgia 04/07/2023 Memory loss 04/07/2023 LEO (obstructive sleep apnea) 04/07/2023 RLS (restless legs syndrome) 04/07/2023 Chronic pain syndrome 04/07/2023 Uncoded Boil of skin AND/OR subcutaneous tissue 11/28/2014 Overview (07/30/2015): Boil of skin AND/OR subcutaneous tissue Dysthymic disorder 11/28/2014 Overview (07/30/2015): Dysthymia Adopted person 11/28/2014 Overview (07/30/2015): Adopted person Hidradenitis suppurativa 11/28/2014 Overview (07/30/2015): Hidradenitis suppurativa Encounters Date Type Department Care Team Description 01/16/2025 3:30 PM EDT Telemedicine [facility] Plastic and Reconstructive Surgery [address], 4th Floor, [address] [place] [address] Johann Francis MD Dunn, Elizabeth Yates, CNP Frequent falls (Primary Dx); Bilateral occipital neuralgia 01/11/2025 Telephone [facility] Plastic and Reconstructive Surgery [address] [place] [address], 4th Floor, [address] [place] [address] Ann Parrish CNP 01/09/2025 7:45 AM EDT - 01/09/2025 10:11 AM EDT Surgery [facility] PERIOPERATIVE DEPT [address] [place] [phone] Johann Francis MD right occipital nummular headache decompression. 01/09/2025 7:13 AM EDT Anesthesia Event [facility] PERIOPERATIVE DEPT [address] [place] [phone] Praveen Zacarias MD Johnson, Brielle Taryn, RN 01/09/2025 5:48 AM EDT - 01/09/2025 12:40 PM EDT Hospital Encounter [facility] PERIOPERATIVE DEPT [address] [place] [phone] Johann Francis MD Discharge Disposition: Home or Self Care 01/09/2025 Procedure Pass [facility] PERIOPERATIVE DEPT [address] [place] [phone] 12/19/2024 1:15 PM EDT Pre-Admission Testing [facility] Pre-Procedure Evaluation Department [place] [phone] Johann Francis MD from Last 3 Months Social History Tobacco Use Types Packs/Day Years Used Date Smoking Tobacco: Former Cigarettes 1 34.1 0 08/23/1982 - 10/06/2016 Smokeless Tobacco: Never Tobacco Cessation:Counseling Given: Not Answered Alcohol Use Standard Drinks/Week Comments Not Currently 0 (1 standard drink = 0.6 oz pure alcohol) I don t drink since 2018- tastes weird since first nerve surgery Education Answer Date Recorded Are you interested in more education? Not on emil e 2022 Are you concerned about learning? Not on file 2022 No 2022 No 2022 Digital Access Answer Date Recorded No 01/17/2023 No 01/17/2023 Reliable internet access at home? Not on file 01/17/2023 Device with a working camera? Not on file Intimate Partner Violence Answer Date R ecorded Are you denied basic needs s uch as food, clothing, or medical care? No 04/27/2023 In the past 12 months have y ou been in a relationship with a person who hurts, threatens, or tries to control you? No 04/27/2023 Are you denied basic needs s uch as food, clothing, or medical care? No 04/27/2023 In the past 12 months have y ou been in a relationship with a person who hurts, threatens, or tries to control you? No 04/27/2023 Comments No Sex and Gender Information Value Date Recorded Sex Assigned at Female 02/05/2021 12:30 PM EDT Legal Sex Female 6:45 PM EST Gender Identity Female 02/05/2021 12:30 PM EDT Sexual Orientation Straight 02/05/2021 12 :30 PM EDT Last Filed Vital Signs Vital Sign Reading Time Taken Comments Blood Pressure 122/57 01/09/2025 11:55 AM EDT Pulse 66 01/09/2025 11:55 AM EDT Temperature 36.2 C (97.1 F) 01/09/2025 11:55 AM EDT Respiratory Rate 18 01/09/2025 11:55 AM EDT Oxygen Saturation 100% 01/09/2025 11:55 AM EDT Inhaled Oxygen Concentration - - Weight 85.3 kg (188 lb) 01/09/2025 6:45 AM EDT Height 160 cm (5' 3 ) 01/09/2025 6:45 AM EDT Body Mass Index 33.3 01/09/2025 6:45 AM EDT Plan of Treatment Upcoming Encounters Date Type Department Care Team (Late st Contact Info) Description 04/05/2025 12:30 PM EDT Office Visit [facility] Plastic and Reconstructive Surgery [address], 4th Floor, [address] [place] [address] Johann Francis MD [address] [place] [address] [email or web address] Health Maintenance Due Date Last Done Comments LIPID PANEL 1967 DEPRESSION SCREENING 1979 HEPATITIS C SCREENING 12/16/1985 HIV ONE-TIME SCREENING (18-65 YEARS) 12/16/1985 PAP SMEAR 12/16/1988 SCREENING FOR DIABETES 12/16/2002 MAMMOGRAM 2007 COLOGUARD 12/16/2012 COLONOSCOPY 12/16/2012 COLORECTAL CANCER SCREENING 12/16/2012 FIT TEST 12/16/2012 FOBT 12/16/2012 SIGMOIDOSCOPY 12/16/2012 VIRTUAL COLONOSCOPY 12/16/2012 LUNG CANCER SCREENING (LDCT Only) 12/16/2017 PNEUMOCOCCAL VACCINES (50+ years) (1 of 1 - PCV) 12/16/2017 COVID-19 VACCINE ( season) 2024 09/23/2022, 03/27/2022, 03/27/2022, Additional history exists Adult Td,Tdap Booster 06/05/2028 06/05/2018 ZOSTER VACCINES Completed 11/20/2018, 09/17/2018 HEPATITIS A VACCINES Aged Out No long er eligible based on patient's age to complete this topic HIB VACCINES Aged Out No longer eligi ble based on patient's age to complete this topic MENINGOCOCCAL VACCINES (ACWY) Aged Out No longer eligible based on patient's age to complete this topic MENINGOCOCCAL VACCINES (B) Aged Out N o longer eligible based on patient's age to complete this topic Medical Devices Implanted Type Area Parliamentary Archivist Device Identifier Shelf Expiration Date Model / Serial / Lot Irving-09/27/2022 Implanted:2022 (Quantity not on file) Irving Procedures Procedure Name Priority Date/Time Associated Diagnosis Comments AIRWAY PLACEMENT Routine 01/09/2025 8:11 AM EDT [place] REVISION OF CRANIAL NERVE 01/09/2025 7:59 AM EDT Neuralgia Nummular headache from Last 3 Months Results * ANES ETT DOUBLE LUMEN - AIRWAY LDA (01/09/2025 8:11 AM EDT) Narrative Raiza Griffith CRNA - 01/09/2025 8:11 AM EDT Raiza Griffith CRNA 01/09/2025 8:12 AM Airway Placement Procedure Note: Patient was not difficult to intubate. Procedure performed by: fellow/resident/BRUSHING OPERATOR Anesthesiologist: Praveen Zacarias MD Fellow/Resident/BRUSHING OPERATOR: Raiza Griffith CRNA Airway procedure initiated at:01/09/2025 8:11 AM and ended at. Personal Protective Equipment: Mask: surgical mask Gloves: gloves Mask Ventilation: Quality: easy with adjunct Adjunct: muscle relaxant Airway Placement: Technique: direct laryngoscopy Rapid sequence induction: no Details: Blade type: Mac Blade size: 3 Direct view: grade 1 Number of attempts: 1 ETT type: cuffed ETT size: 7.0 ETT depth at teeth: 21 Tube position confirmed by: bilateral breath sounds and EtCO2 Bite Block: soft Outcomes: Evidence of dental injury? no Complications observed? no us Praveen Zacarias MD [place] ANESTHESIA Final Result from Last [address] [place] [address] [place] [address] [place] [address] [place] [address] PCC Care Teams Right Of Way Maintenance Supervisor Relationship Specialty Start Date End Date Johann Trujillo MD [address] [place] [phone] PCP - General Internal Medicine 01/29/23 Additional Source Comments The information contained in this document represents components of the legal health record. It is not the complete legal health record.[facility]
--- NOTE | 2025-03-14 16:12 | MHC.OFFVIS ---
Vital Signs 03/14/25 16:13 Height 5 ft Intake Visit Reasons: seizure Accompanied by: DIRECTOR CARDIOLOGY Allergies codeine Adverse Reaction (Intermediate, Verified 03/14/25 16:13) Vomiting silver (From Tegaderm AG Mesh) Adverse Reaction (Verified 03/14/25 16:13) red itchy rash Medication List - Last Reconciled 03/14/25 by Grecia Santiago, LACI alendronate 70 mg PO SA@0900 bupropion HCl XL 300 mg PO DAILY 30 days calcium carbonate 600 mg PO DAILY cholecalciferol (vitamin D3) 25 mcg PO DAILY clotrimazole-betamethasone 1-0.05 % 1 appl topical BID PRN diazepam 5 mg PO TID PRN 7 days donepezil 10 mg PO BEDTIME duloxetine 60 mg PO BID 30 days gabapentin 800 mg PO TID hydrocodone-acetaminophen 5-325 mg 1 tab PO Q8H PRN 5 days lactulose 10 grams (15 mL) PO DAILY PRN 30 days lidocaine 4% (Lidocaine Pain Relief) See Protocol apply 1 patch to lower back and one to abdominal area daily as needed 30 days magnesium 500 mg PO DAILY metoprolol succinate ER 50 mg PO DAILY mirabegron ER 50 mg PO DAILY 30 days omeprazole 20 mg PO BID@0630,1630 pramipexole 0.375 mg (3 x 0.125 mg) PO BEDTIME 30 days topiramate 100 mg PO BID HPI Comments Details: Here with DIRECTOR CARDIOLOGY (Denice) who has been living with her since 01/2025. She had SI due to severe pain and was hospitalized in crisis unit for 1 week at the beginning of 01/2025. No SI/HI at this time. She was working with therapist and psychiatrist. She was here with new concern. She has been having episodes that started in 01/2025 where she passes out for a few minutes. She will be sitting and then she is suddenly down, which she describes as passing out and falling forward, usually hitting her head on table. It has also happened while standing a few times and she will fall forward onto counter. She has never fallen down onto the ground. She always falls forward. Her DIRECTOR CARDIOLOGY has found her face down on the table and has to wake her up. It lasts a few minutes. She is slightly confused after and asks what happened. No tongue bite or incontinence. It happens about 2x/week, but may happen up to 5x in the same day. They have noticed it usually happens in the evening time and around dinner. She has hit her head on the table/counter multiple times and has bruised her forehead. Using walker now. Memory getting worse, trouble with word recall and losing train of thought. She also reports increased weakness and pain in hands and arms. Says she is in so much pain since Vicodin stopped in 10/2024 as insurance company would not cover both Vicodin and Diazepam. Had procedure at [facility] in 12/2024 for nerves going to right ear scraped of adhesions for constant pain and pressure to R ear. SC stimulator dislodged in 09/2024 when she was helping to roll her mother on hospice care, planning for surgical repair with Dr. Cortes, not yet scheduled. She also says that she has a mass of adhesions in right lower abdominal wall that he is working on. She had cataract surgery earlier this year. Balance was not so good and has had few falls, walking with cane. Having trouble maintaining sleep. Also has noticed some trouble with spelling and word retrieval. She still thought she saw things running by that were not really there. She was working with therapist 2x/week. Tried SC stimulator for occipital neuralgia, but worsened right ear pain and was removed after about 1.[address] Cortes recommended she follow up with [facility]. She gets tinnitus in the left ear that increases with increased pain to right ear. Previously was taking hydrocodone-acetaminophen 5-325mg 2x/day, diazepam, and using medical marijuana, pain ranges from 6-10/10. Not sleeping well due to pain. Balance is still off and memory is not as sharp. More FM pains with colder weather. Had right occipital nerve block on 05/24/24 and it helped 50%. Has constant right side posterior quadrant and ear pain since 2011. She has had 4 surgeries over the years at [facility] for the right Occipital nerve and supratrochlear nerve. Off balance, has been using cane which is helping. Got spinal cord stimulator in 01/2024, back pain is 80% better, less severe. Getting episodes of blurred and double vision for about 20 minutes, 4-5x/week. Gets daily migraines with blurred vision and double vision by the evening. No black spots in vision or flashes of light. No headaches aside from occipital neuralgia pain which is constant pain behind and including R ear. Pain is usually better in morning and gets worse as day goes on. Has had multiple surgeries for occipital neuralgia at [facility]. Following with pain management (Dr. Cortes) for back pain, and also trying to help with occipital neuralgia. He would like Dr. Roberson's opinion on Botox or surgical implant. Using medical marijuana. Memory has also gotten worse. Few panic attacks. No visual hallucinations. In the past found herself talking to someone who was not there at night. Working with therapist 1-2x/week. Caring for 94-year-old mother and aunt with disability. Had neuropsych testing in [place] sometime in 09/2023, which was apparently much worse than testing in 03/2023 at [facility]. She has intermittent episodes of blurred/double vision that occur every night and last about 20-30 minutes. Symptoms improve with closing one eye or the other. No HAs with these episodes. Seen by battery mechanic 05/2023 without findings. She had two episodes of confusion while driving at night where she had to recovery room nurse as she forgot where she was going. It took about 10 minutes for her to remember she was driving home. Had brain MRI in 09/2022. Using marijuana as needed for pain. Unknown FHx as she is adopted. No known triggers for migraines. Currently has increased stressed as she is not working and waiting for disability. Chronic pain. [facility] Medical History (Updated 03/14/25 @ 16:43 by Grecia Santiago CNP) Carotid artery stenosis MCI (mild cognitive impairment) Cervical spondylosis Migraine Hx of pilonidal cyst Degenerative disc disease, cervical Tinnitus of left ear Adenomyosis of uterus Bilateral breast cysts Sleep apnea Short-term memory loss Rheumatoid arthritis Osteoporosis SI (sacroiliac) joint dysfunction Hidradenitis suppurativa Occipital neuralgia Fibromyalgia HTN (hypertension) Lumbar disc disease Depression Overactive bladder Restless leg syndrome Peripheral neuropathy Surgical History History of gynecologic surgery History of surgery Hx of shoulder surgery H/O laminectomy History of carpal tunnel release of both wrists Hx of elbow surgery Hx of hysterectomy Hx of left knee surgery Hx of arthroscopy of left knee Hx of abdominal surgery H/O LEEP History of intestinal surgery Hx of appendectomy Family History Mother No problems noted. Father No problems noted. Social History Household Members: None Housing: Unknown / Unable to assess Do you presently have visiting nurse or other home services: No Alcohol intake: former Patient Tobacco Use Status: Former Tobacco user Tobacco use type: Cigarette e-Cigarette/Vaping Use: Never Used Second Hand Smoke Exposure: Yes Substance Use Type: Marijuana service: No Sexual orientation: Straight/Heterosexual Review of Systems Const Denies chills, Denies daytime sleepiness, Reports difficulty sleeping, Reports fatigue, Denies fever(s), Denies frequent falls, Reports headache(s), Denies increased appetite, Denies poor appetite, Denies snoring, Denies weakness, Denies weight gain and Denies weight loss Eyes Denies loss of vision ENT Denies vertigo, Denies dizziness, Reports headache(s) and Reports neck pain Card Denies chest pain at rest, Denies chest pain with activity, Reports syncope, Reports leg edema, Reports palpitations, Denies dyspnea and Denies dyspnea on exertion Resp Denies cough, Denies dyspnea, Denies dyspnea on exertion and Denies snoring GI Denies abdominal pain, Denies constipation, Denies heartburn, Denies diarrhea and Denies nausea Denies urinary frequency, Denies urinary incontinence and Reports urinary urgency Musc Denies abnormal gait, Reports back pain, Reports myalgias, Reports arthralgias, Reports neck pain, Denies numbness and Denies tingling Neuro Denies abnormal gait, Denies vertigo, Denies dizziness, Reports syncope, Denies frequent falls, Reports headache(s), Denies lack of coordination, Denies loss of vision, Denies memory loss, Denies numbness, Denies Other visual disturbances, Denies restless legs, Denies seizure-like activity, Denies tingling, Denies paresthesias, Denies tremor(s) and Denies weakness Psych Reports anxiety, Reports depression, Denies auditory hallucinations, Denies memory loss and Denies visual hallucinations Endo Reports fatigue and Reports palpitations Physical Exam Const Other: General Appearance:? normal, in no acute distress. Heart:? S1, S2 normal, no murmurs. Lungs:? clear anteriorly and posteriorly. Musculoskeletal:? normal. Extremities:? no edema. Psych:? alert, oriented, cognitive function intact, cooperative with exam. Neuro Other: Abnormal Neurological Findings:?Walking with cane Mental Status: alert and oriented X 3. Normal attention, orientation, memory, and affect. Cranial Nerves: Pupils are equal, round, and reactive to light. External ocular muscles are intact. Visual ramirez are full, no ptosis. Face is symmetrical, no facial weakness or droop. Facial sensations are normal. Tongue protrudes in midline. Palate elevates symmetrically. Shoulder shrugging is normal Motor Examination: Normal muscle tone, bulk and strength. No atrophy or fasciculations. No drift of the extended upper extremities. DTR 2+. Plantars are flexor. Straight Leg Raisin degrees. Sensory Exam: Normal light touch, temperature, pinprick, vibration, and joint-position sensations. Rhomberg sign is absent. Coordination: No ataxia. No titubation. Xpvvoz-ld-rpzx, yahu-jykm-hhae test, and rapid alternating movements were normal. Gait Exam: With cane Cerebellar Signs: Cgtfdy-yc-mxte and uppe-fg-kumh is normal. No dysdiadochokinesia. Extrapyramidal System: No tremor, rigidity with normal facial expressions. No bradykinesia. No bradyphrenia. Normal arm swing and posture. No propulsion or retropulsion. Speech: Normal. No dysphasia or dysarthria. Results Reviewed Results Reviewed: 09/09/23 EEG- WNL CT brain 09/2023: normal. Calcium deposits in carotid siphons and right vertebral. CTA brain 09/2023: 1. No evidence for large vessel occlusion or critical focal stenosis of the intracranial arterial circulation. 2. Mural calcifications of the carotid siphons bilaterally, right more than left, with moderate diameter reduction stenosis of the supraclinoid right ICA and mild luminal diameter reduction of the supraclinoid left ICA. 3. Normal CT of the brain with and without contrast. 12/2023 MG labs: Negative CT brain 09/2024 at [facility]: No acute findings Assessment & Plan Assessment & Plan (1) Syncope: Code(s): R55 - Syncope and collapse Category: Medical Qualifiers: Syncope type: unspecified Qualified Code(s): R55 - Syncope and collapse Plan: She was here with DIRECTOR CARDIOLOGY. Reviewed testing ordered. (2) Migraine equivalent syndrome: Code(s): G43.109 - Migraine with aura, not intractable, without status migrainosus Category: Medical Plan: Continue topiramate 100mg 1 tablet twice a day (3) MCI (mild cognitive impairment): Code(s): G31.84 - Mild cognitive impairment of uncertain or unknown etiology Category: Medical Plan: Continue donepezil 10mg 1 tablet at bedtime (4) Cervical disc disease: Code(s): M50.90 - Cervical disc disorder, unspecified, unspecified cervical region Category: Medical Plan: . (5) Fibromyalgia: Code(s): M79.7 - Fibromyalgia Category: Medical Plan: . (6) Carotid artery stenosis: Code(s): I65.29 - Occlusion and stenosis of unspecified carotid artery Category: Medical Qualifiers: Laterality: unspecified laterality Qualified Code(s): I65.29 - Occlusion and stenosis of unspecified carotid artery Plan: . Plan . Orders: Orders Complete Blood Count no Diff Today R55 - Syncope and collapse Basic Metabolic Panel Today R55 - Syncope and collapse MR head/brain wo con Today R55 - Syncope and collapse ECG holter monitor 48 hour Today R55 - Syncope and collapse EEG electroencephalogram Today R55 - Syncope and collapse TSH reflex Free T4 Today R55 - Syncope and collapse Coding Level of Care Code Est Pt Level 4 (18218) Diagnoses Syncope, unspecified syncope type R55 Syncope type: unspecified Migraine equivalent syndrome G43.109 MCI (mild cognitive impairment) G31.84 Cervical disc disease M50.90 Fibromyalgia M79.7 Stenosis of carotid artery, unspecified laterality I65.29 Laterality: unspecified laterality
== END 2025-03-14 17:00 | disposition home or self-care (01) ==
LOC: HO.HSM 15:59
PROVIDERS: PCP Internal Medicine; Visit Provider Registered Nurse
DX: R55 Syncope and collapse (principal); G43.109 Migraine with aura, not intractable, without status migrainosus; G31.84 Mild cognitive impairment of uncertain or unknown etiology; M50.90 Cervical disc disorder, unspecified, unspecified cervical region; M79.7 Fibromyalgia; I65.29 Occlusion and stenosis of unspecified carotid artery
CPT/HCPCS: 99214

== ENCOUNTER → 2025-03-14 15:59 | Outpatient (BNVA) | payer MEDICAID, SELFPAY | PROVIDERS: PCP Internal Medicine; Visit Provider Registered Nurse | DX: R55 Syncope and collapse (principal); G31.84 Mild cognitive impairment of uncertain or unknown etiology; M50.90 Cervical disc disorder, unspecified, unspecified cervical region; M79.7 Fibromyalgia; I65.29 Occlusion and stenosis of unspecified carotid artery; Z79.899 Other long term (current) drug therapy | CPT/HCPCS: 99212 ==

== ENCOUNTER 2025-03-21 11:07 | Outpatient (REF) | payer MEDICAID, SELFPAY ==
--- NOTE | 2025-03-21 11:15 | EEG_ITS ---
The waking background activity consists of low-voltage fast frequencies diffusely intermixed with low-voltage posterior 10 hertz alpha. Photic stimulation and hyperventilation are without activation. No sleep stages identified. No focal, lateralizing or paroxysmal discharges are seen. Impression: This waking EEG is within normal limits MTDD
--- OUTSIDE RECORDS SUMMARY | 2025-03-21 12:11 | XMS_ITS | Clinical Summary ---
Author Organization [facility] Address [address] [place] [address] Phone Care Team Providers Care Stereo Equipment Repairer Name Role Phone Johann Trujillo MD Primary Care Provider [phone] Allergies Active Allergy Reactions Criticality Noted Date [...] METABOLIC PANEL STAT 09/05/2024 4:29 PM EST [facility] SCREENING DIGITAL Routine 01/23/2022 4:44 PM EDT Encounter for screening mammogram for malignant neoplasm of breast [facility] DEXA AXIAL SKELETON Routine 10/30/2019 8:08 AM EDT Encounter for screening for osteoporosis from Last 3 Months or Most Recently Relevant to Health Maintenance Results * Comprehensive metabolic panel (09/05/2024 4:29 PM EST) Sodium 140 133 - 145 mmol/L LAB CHEMISTRY METHOD 09/05/2024 5:21 PM [facility] Potassium 4.5 3.5 - 5.5 mmol/L LAB CHEMISTRY METHOD 09/05/2024 5:21 PM [facility] Chloride 110 96 - 110 mmol/L LAB CHEMISTRY METHOD 09/05/2024 5:21 PM [facility] CO2 26 21 - 32 mmol/L LAB CHEMISTRY METHOD 09/05/2024 5:21 PM [facility] Anion Gap 4 3 - 11 LAB CHEMISTRY METHOD 09/05/2024 5:21 PM [facility] Glucose 95 70 - 100 mg/dL LAB CHEMISTRY METHOD 09/05/2024 5:21 PM [facility] BUN 16 5 - 25 mg/dL LAB CHEMISTRY METHOD 09/05/2024 5:21 PM [facility] Creatinine 0.98 0.50 - 1.10 mg/dL LAB CHEMISTRY METHOD 09/05/2024 5:21 PM [facility] eGFR 68 >=60 mL/min/1. 73m2 LAB CHEMISTRY METHOD 09/05/2024 5:21 PM [facility] Comment:Calculation based on the Chronic Kidney Disease Epidemiology Collaboration (CKD-EPI) equation refit without adjustment for race. BUN/Creatinine Ratio 16.3 LAB CHEMISTRY METHOD 09/05/2024 5:21 PM [facility] Calcium 9.0 8.5 - 10.5 mg/dL LAB CHEMISTRY METHOD 09/05/2024 5:21 PM [facility] AST (SGOT) 22 10 - 42 unit/L LAB CHEMISTRY METHOD 09/05/2024 5:21 PM [facility] ALT (SGPT) 27 10 - 60 unit/L LAB CHEMISTRY METHOD 09/05/2024 5:21 PM [facility] Alkaline Phosphatase 50 42 - 121 unit/L LAB CHEMISTRY METHOD 09/05/2024 5:21 PM [facility] Total Protein 6.8 6.0 - 8.0 g/dL LAB CHEMISTRY METHOD 09/05/2024 5:21 PM [facility] Albumin 3.8 3.2 - 5.0 g/dL LAB CHEMISTRY METHOD 09/05/2024 5:21 PM [facility] Total Bilirubin 0.3 0.0 - 1.4 mg/dL LAB CHEMISTRY METHOD 09/05/2024 5:21 PM [facility] Blood Venous blood specimen / Unknown Venipuncture / Unknown 09/05/2024 4:29 PM EST 09/05/2024 4:51 PM EST us Harris Fay MD LAB BLOOD ORDERABLES Final Resu lt [facility] [address] [place] [address], * TERELL SCREENING DIGITAL (01/23/2022 4:44 PM EDT) Anatomical Region Laterality Modality Mammography 01/23/2022 11:1 5 AM EDT Narrative 01/23/2022 4:44 PM EDT Diagnostic Imaging Department [address] [place] [address] Patient: EDU SUÁREZ Ellen /Age/Sex: 1965 - 56 - F Unit#: [id number] Location/Status: SPDIMAM/REG CLI Mnemonic/Ordering Site: [facility] Ordering Physician: KATHERIN ALVARADO MD Terell Screening Digital - 01/23/22 - 1154 History: Bilateral breast cancer screening. Technique: Digital mammography. Conventional CC and MLO projections with tomosynthesis MLO views and computer aided detection. Comparison: [facility] 01/27/2021 dating back to 02/10/2016. Findings: Breast tissue consists of fatty and fibroglandular elements (category b density) bilaterally (as calculated by [employer]in[employer] software). There is no suspicious group of microcalcifications, mass, architectural distortion or suspicious change in breast tissue density. Impression: No evidence of malignancy. BIRADS category 1; negative study, 3341F 10220, 58193 Note: Patient information entered into a reminder system with a target due date for the next mammogram: CPT II 7025F Dictating Physician: CANDELARIO ENRIQUEZ MD Electronically Signed by: CANDELARIO ENRIQUEZ MD Dic Date/Time: 01/23/22 7972 Sign date/Time: 01/23/22 4176 Procedure Note Candelario Enriquez MD - 08/12/2022 Diagnostic Imaging Department [address] [place] [address] Patient: EDU SUÁREZ Ellen /Age/Sex: 1965 - 56 - F Unit#: [id number] Location/Status: SPDIMAM/REG CLI Mnemonic/Ordering Site: [facility] Ordering Physician: KATHERIN ALVARADO MD Terell Screening Digital - 01/23/22 - 1154 History: Bilateral breast cancer screening. Technique: Digital mammography. Conventional CC and MLO projectionswith tomosynthesis MLO views and computer aided detection. Comparison: [facility] 01/27/2021 dating back to 02/10/2016. Findings: Breast tissue consists of fatty and fibroglandular elements (category b density) bilaterally (as calculated by [employer]). There is no suspicious group of microcalcifications, mass, architectural distortion or suspicious change in breast tissue density. Impression: No evidence of malignancy. BIRADS category 1; negative study, 3341F 57264, 76251 Note: Patient information entered into a reminder system with a target duedate for the next mammogram: CPT II 7025F Dictating Physician: CANDELARIO ENRIQUEZ MD Electronically Signed by: CANDELARIO ENRIQUEZ MD Dic Date/Time: 01/23/22 1640 Sign date/Time: 01/23/22 5600 us Katherin Alvarado MD IMG BI PROCEDURES Final Resu lt * TERELL DEXA AXIAL SKELETON (10/30/2019 8:08 AM EDT) Anatomical Region Laterality Modality Mammography 10/30/2019 7:36 AM EDT Narrative 10/30/2019 8:08 AM EDT Diagnostic Imaging Department [address] [place] [address] Patient: EDU SUÁREZ Ellen /Age/Sex: 1965 - 53 - F Unit#: [id number] Location/Status: [facility] CLI Mnemonic[facility] Ordering Physician: GERARDO LUX MD [facility] Dexa Axial Skeleton - 10/30/19758 [...] probability of hip fracture of 1.2%. Code 10504 Dictating Physician: GABRIELLA PIERRE MD Electronically Signed by: GABRIELLA PIERRE MD Dic Date/Time: 10/30/19805 Sign date/Time: 10/30/19 08 Procedure Note Gabriella Pierre - 08/11/2022 Diagnostic Imaging Department [address] [place] [address] Patient: EDU SUÁREZ Ellen CostaB./Age/Sex: 1965 - 53 - F Unit#: [id number] Location/Status: [facility] Mnemonic/Ordering Site: [facility] Ordering Physician: GERARDO LUX MD [facility] Dexa Axial Skeleton - 10/30/19 5316 HISTORY: The patient is a 53-year-old postmenopausal [...] density of the femurs bilaterally is 0.796 gm/ej6elrom is 79% of that of young normals [...] probability of hip fracture of 1.2%. Code 11074 Dictating Physician: GABRIELLA PIERRE MD Electronically Signed by: GABRIELLA PIERRE MD Dic Date/Time: 10/30/19 0806 Sign date/Time: 10/30/19 0808 Gerardo Lux MD IMG BI PROCEDURES Final Result from Last 3 Months or Most Recently Relevant to Health Maintenance Insurance [place]ICA[place] - [place] Care Teams Stereo Equipment Repairer Relationship Specialty Start Date End Date Johann Trujillo MD [address] [place] [address] PCP - General Internal Medicine 09/06/24
== END 2025-03-21 11:08 | disposition home or self-care (01) ==
LOC: HO.NEURO 11:07
PROVIDERS: Visit Provider Registered Nurse
DX: R55 Syncope and collapse (principal)
CPT/HCPCS: 95816

== ENCOUNTER → 2025-03-21 11:15 | Outpatient (BNV) | payer MEDICAID, SELFPAY | PROVIDERS: Visit Provider Psychiatry & Neurology Neurology | DX: R55 Syncope and collapse (principal) | CPT/HCPCS: 95816 ==

== ENCOUNTER 2025-03-21 12:19 | Outpatient (REF) | payer MEDICAID, SELFPAY ==
[2025-03-21 13:34] LABS: Hematocrit 36.9 % (37.0-47.0); Hemoglobin 12.2 g/dl (12.0-16.0); Mean Corpuscular HGB Conc 33.1 g/dl (31.0-35.0); Mean Corpuscular Hemoglobin 29.6 pg (27.0-33.0); Mean Corpuscular Volume 89.6 fL (80.0-98.0); NRBC Abs Auto 0.000 X10*3/uL (0.0-0.012); NRBC Pct Auto 0.0 /100WBC (0.0-0.2); Platelet Count 349 X10*3/uL (160-400); Red Blood Count 4.12 X10*6/uL (4.20-5.50); White Blood Count 8.8 X10*3/uL (4.8-10.8)
[2025-03-21 14:45] LABS: Anion Gap 11 (12-20); Blood Urea Nitrogen 10 mg/dL (9-16); Calcium 9.2 mg/dL (8.4-10.2); Carbon Dioxide 26 mmol/L (22-29); Chloride 110 mmol/L (96-108); Estimated Glomerular Filt Rate > 60; Potassium 4.0 mmol/L (3.3-5.1); Sodium 143 mmol/L (135-145)
== END 2025-03-21 12:20 | disposition home or self-care (01) ==
LOC: HO.LAB 12:19
PROVIDERS: Visit Provider Registered Nurse
DX: Z13.89 Encounter for screening for other disorder (principal)
CPT/HCPCS: 36415; 80048; 84443; 85027

== ENCOUNTER → 2025-04-30 10:50 | Outpatient (BNV) | payer MEDICARE, MEDICAID, SELFPAY | PROVIDERS: Visit Provider Radiology Diagnostic Radiology | DX: R55 Syncope and collapse (principal) | CPT/HCPCS: 70551 ==

== ENCOUNTER 2025-04-30 11:37 | Outpatient (REF) | payer MEDICARE, MEDICAID, SELFPAY ==
--- NOTE | ~2025-04-30 | MR_ITS ---
EXAMINATION: MR BRAIN WITHOUT CONTRAST CLINICAL INFORMATION: Syncope and collapsed. COMPARISON: Correlated to CT dated January 10, 2025 TECHNIQUE: MRI of the brain was obtained using routine sequences without contrast. FINDINGS: No restricted diffusion. No acute intracranial hemorrhage, mass effect, midline shift, hydrocephalus or herniation. Farrell-white matter differentiation is normal. Sellar/suprasellar region demonstrated no gross signal abnormality or masses. Posterior cranial fossa contents demonstrated no signal abnormality or mass effect. Normal position of the cerebellar tonsils. Flow-void signal within the main cerebral vessels is normal. There is an extra-axial CSF prominence in the right frontal convexity probably related to thinning and remodeling of the right frontal bone. Prominence of the extra-axial CSF spaces cerebral sulci and ventricles, bifrontal and parietal. Nonspecific deep periventricular white matter hyperintense T2 FLAIR signal involving mostly the parietal lobes. No signal abnormality or gross volume loss in the hippocampi. MR/MR head/brain wo con IMPRESSION: No acute brain abnormality. Focal area, bony remodeling resulting in extra-axial CSF prominence, right frontal convexity/frontal bone. Bifrontal parietal lobe atrophy, mild to moderate. Electronically signed by: Delio Byrd MD 04/30/2025 01:12 PM EDT
--- OUTSIDE RECORDS SUMMARY | 2025-04-30 14:16 | XMS_ITS | Clinical Summary ---
Author Organization [facility] Address [address] [place] [phone] Phone Care Team Providers Care Target Setter Name Role Phone Johann Trujillo MD Primary Care Provider [phone] Allergies Active Allergy Reactions Criticality Noted Date Comments Codeine Nausea and/or Vomiting 11/28/2014 Iodinated Contrast Media 11/28/2014 UNSPECIFIED Contrast Media - [place] warm and sick Adhesive Tape-Silicones Rash Low 12/19/2024 Medications solifenacin (VESICARE) 10 MG tablet Take 10 mg by mouth nightly at bedtime. Active ID-duloxetine DR ([id number]) 60 mg capsule nightly at bedtime. 07/02/2021 [...] 04/23/2022 Active ID-vitamin D3 or placebo (14) 86196 iu capsule Active hydrOXYzine (VISTARIL) 25 MG [...] Encounters Date Type Department Care Team Description 04/05/2025 12:30 PM EDT Office Visit [facility] Plastic and Reconstructive Surgery [address] [place] [address], 4th Floor, [address] [place] [address] Johann Francis MD Bilateral occipital neuralgia (Primary Dx) from Last 3 Months Social History Tobacco [...] 04/27/2023 Are you denied basic needs [facility] as food, clothing, or medical care? No [...] Upcoming Encounters Date Type Department Care Team ([facility] st Contact Info) Description 07/12/2025 12:30 PM EST Office Visit [facility] Plastic and Reconstructive Surgery [address], [address]th Floor, [address] [place] [phone] Johann Francis MD [address] [place] [address] [email or web address] Health Maintenance Due Date Last Done Comments [...] years) (1 of 1 - PCV) 12/16/2017 INFLUENZA VACCINE (#1) 2025 , 06/02/2022, 07/13/2020, Additional history exists COVID-19 VACCINE ( season) 2025 09/23/2022, 03/27/2022, 03/27/2022, Additional history exists Adult [...] this topic Medical Devices Implanted Type Area Online Merchandiser Device Identifier Shelf Expiration Date Model / Serial / Lot Irving-09/27/2022 Implanted:2022 (Quantity not on file) Irving Insurance HEALTH MEDICARE PART A & B [address] [place], [place] [address]HEALTH MEDICARE PART A & B [place] MED[place] PART A & B [address] [place] [address]HEALTH MEDICARE PART A & B HEALTH MEDICARE PART A & [address] [place], [place] [address] [place] [address] MEDICARE PART A & B Care Teams Target Setter Relationship Specialty Start Date End Date Johann Trujillo MD [address] [place] [phone] PCP - General Internal Medicine 01/29/23 Additional Source Comments The information contained in this document represents components of the legal health record. It is not the complete legal health record.[facility]
--- OUTSIDE RECORDS SUMMARY | 2025-04-30 14:16 | XMS_ITS | Encounter Summary ---
Author Organization [facility] Address [address] [place] [address] [place] [address] Phone Care Team Providers Care Vulcanizer Operator Name Role Phone Tito Alvarado MD Primary Care Provider Pcp, Unknown Primary Care Provider Johann Schroeder MD Primary Care Provider [phone]- [phone] Encounter Details Date Type Department Care Team (Late Contact Info) Description 02/11/2022 Procedure Pass [facility] PERIOPERATIVE DEPT [address] [place] [phone] Social History Tobacco Use Types Packs/Day Years Used Date Smoking Tobacco: Former Cigarettes 1 34.1 0 08/23/1982 - 10/06/2016 Smokeless Tobacco: Never Alcohol Use Standard Drinks/Week Comments Not Currently 0 (1 standard drink = 0.6 oz pure alcohol) I don t drink since 2018- tastes weird since first nerve surgery Comments No Sex and Gender Information Value Date Recorded Sex Assigned at Female 02/05/2021 12:30 PM EDT Legal Sex Female 6:45 PM EST Gender Identity Female 02/05/2021 12:30 PM EDT Sexual Orientation Straight 02/05/2021 12 :30 PM EDT documented as of this encounter Plan of Treatment Upcoming Encounters Date Type Department Care Team (Late st Contact Info) Description 07/12/2025 12:30 PM EST Office Visit [facility] Plastic and Reconstructive Surgery 55 [facility], 4th Floor, [address] [place] [address] Johann Francis MD [address] [place] [address] [email or web address] documented as of this encounter Visit Diagnoses Not on filedocumented in this encounter Care Teams Vulcanizer Operator Relationship Specialty Start Date End Date Tito Alvarado MD PCP - General Internal Medicine 07/30/21 12/15/22 Pcp, Unknown PCP - General 12/16/22 01/28/23 Johann Trujillo MD [address] [place] [address] PCP - General Internal Medicine 01/29/23 documented as of this encounter Additional Source Comments The information contained in this document represents components of the legal health record. It is not the complete legal health record.[facility]
--- OUTSIDE RECORDS SUMMARY | 2025-04-30 14:16 | XMS_ITS | Encounter Summary ---
Author Organization [facility] Address [address] [place] [address] Phone Care Team Providers Care Accounting Teacher Name Role Phone Johann Trujillo MD Primary Care Provider [phone]- [phone] Encounter Details Date Type Department Care Team (Late st Contact Info) Description 04/27/2023 Procedure Pass [facility] PERIOPERATIVE DEPT [address] [place] [phone] Social History Tobacco Use Types Packs/Day Years [...] Description 07/12/2025 12:30 PM EST Office Visit [facility] Plastic and Reconstructive Surgery [address] [place] [address], 4th Floor, [address] [place] [address] Johann Francis MD [address] [place] [address] [email or web address] documented as of this encounter Visit Diagnoses Not on filedocumented in this encounter Care Teams Accounting Teacher Relationship Specialty Start Date End Date Johann Trujillo MD [address] [place] [address] PCP - General Internal Medicine 01/29/23 documented as of this encounter Additional Source Comments The information contained in this document represents components of the legal health record. It is not the complete legal health record.[facility]
--- OUTSIDE RECORDS SUMMARY | 2025-04-30 14:16 | XMS_ITS | Encounter Summary ---
Author Organization [facility] Address [address] [place] [address] [place] [address] Phone Care Team Providers Care Silk Screen Painter Name Role Phone Jo-Ann Cho MD Primary Care Provider [phone]- [phone] Tito Alvarado MD Primary Care Provider Pcp, Unknown Primary Care Provider Johann Schroeder MD Primary Care Provider +1- [phone] Encounter Details Date Type Department Care Team (Late st Contact Info) Description 04/26/2018 Procedure Pass [facility] PERIOPER[facility]IVE DEPT [address] [place] [phone] Social History Tobacco Use Types Packs/Day Years Used Date Smoking Tobacco: Former Cigarettes 1 34.1 0 08/23/1982 - 10/06/2016 Alcohol Use Standard Drinks/Week Comments No 0 (1 standard drink = 0.6 oz [...] Description 07/12/2025 12:30 PM EST Office Visit [facility] Plastic and Reconstructive Surgery 55 [facility], 4th Floor, [address] [place] [address] Johann Francis MD [address] [place] [address] [email or web address] documented as of this encounter Visit Diagnoses Not on filedocumented in this encounter Additional Health Concerns Infection Onset Date Last Indicated Resolved Time COVID-19 12/14/2021 12/14/2021 01/04/2022 1:23 AM EDT documented as of this encounter Care Teams Silk Screen Painter Relationship Specialty Start Date End Date Jo-Ann Cho MD [address] [place] [address] PCP - General Internal Medicine 03/30/18 07/29/21 Tito Alvarado MD [address] [place] [address] PCP - General Internal Medicine 07/30/21 12/15/22 Pcp, Unknown PCP - General 12/16/22 01/28/23 Johann Trujillo MD [address] [place] [address] PCP - General Internal Medicine 01/29/23 documented as of this encounter Additional Source Comments The information contained in this document represents components of the legal health record. It is not the complete legal health record.[facility]
--- OUTSIDE RECORDS SUMMARY | 2025-04-30 14:16 | XMS_ITS | Encounter Summary ---
Author Organization [facility] Address [address] [place] [address] [place] [address] Phone Care Team Providers Care Junior Database Administrator Name Role Phone Jo-Ann Cho MD Primary Care Provider +1- [phone] Tito Alvarado MD Primary Care Provider Pcp, Unknown Primary Care Provider Johann Schroeder MD Primary Care Provider +1- [phone] Encounter Details Date Type Department Care Team (Late st Contact Info) Description 04/06/2018 Prep for Surgery [facility] Plastic and Reconstructive Surgery [address] [place] [address], 4th Floor, [address] [place] [address] Ann Parrish, [facility] [address] [place] [address] [email or web address] Social History Tobacco Use Types Packs/Day Years Used Date Smoking Tobacco: Former Cigarettes Q uit: 10/06/2016 Comments Unknown Sex and Gender Information Value [...] Description 07/12/2025 12:30 PM EST Office Visit [facility] Plastic and Reconstructive Surgery 55 [facility], 4th Floor, [address] [place] [address] Johann Francis MD [address] [place] [address] [email or web address] documented as of this encounter Visit Diagnoses Not on filedocumented in this encounter Additional Health Concerns Infection Onset Date Last Indicated Resolved Time COVID-19 12/14/2021 12/14/2021 01/04/2022 1:23 AM EDT documented as of this encounter Care Teams Junior Database Administrator Relationship Specialty Start Date End Date Jo-Ann Cho MD [address] [place] [address] PCP - General Internal Medicine 03/30/18 07/29/21 Tito Alvarado MD [address] [place] [address] PCP - General Internal Medicine 07/30/21 12/15/22 Pcp, Unknown PCP - General 12/16/22 01/28/23 Johann Trujillo MD [address] [place] [address] PCP - General Internal Medicine 01/29/23 documented as of this encounter Additional Source Comments The information contained in this document represents components of the legal health record. It is not the complete legal health record.[facility]
--- OUTSIDE RECORDS SUMMARY | 2025-04-30 14:17 | XMS_ITS | Clinical Summary ---
Author Organization [facility] Address [address] [place] [address] Phone Care Team Providers Care Black Top Machine Operator Name Role Phone Johann Trujillo MD Primary Care Provider [phone] Allergies Active Allergy Reactions Criticality Noted Date [...] 01/24/20 22, 01/21/2021, 04/29/2019, Additional history exists Depression Screening 08/23/2024 COVID-19 Vaccine ( season) 2025 09/23/2022, 03/27/2022, 08/21/2021, Additional history exists Influenza [...] METABOLIC PANEL STAT 09/05/2024 4:29 PM EST [facility] SCREENING DIGITAL Routine 01/23/2022 4:44 PM EDT Encounter for screening mammogram for malignant neoplasm of breast [facility] DEXA AXIAL SKELETON Routine 10/30/2019 8:08 AM EDT Encounter for screening for osteoporosis from Last 3 Months or Most Recently Relevant to Health Maintenance Results * Comprehensive metabolic panel (09/05/2024 4:29 PM EST) Sodium 140 133 - 145 mmol/L LAB CHEMISTRY METHOD 09/05/2024 5:21 PM [facility] Potassium 4.5 3.5 - 5.5 mmol/L LAB CHEMISTRY METHOD 09/05/2024 5:21 PM [facility] Chloride 110 96 - 110 mmol/L LAB CHEMISTRY METHOD 09/05/2024 5:21 PM [facility] CO2 26 21 - 32 mmol/L LAB CHEMISTRY METHOD 09/05/2024 5:21 PM [facility] Anion Gap 4 3 - 11 LAB CHEMISTRY METHOD 09/05/2024 5:21 PM [facility] Glucose 95 70 - 100 mg/dL LAB CHEMISTRY METHOD 09/05/2024 5:21 PM [facility] BUN 16 5 - 25 mg/dL LAB CHEMISTRY METHOD 09/05/2024 5:21 PM [facility] Creatinine 0.98 0.50 - 1.10 mg/dL LAB CHEMISTRY METHOD 09/05/2024 5:21 PM [facility] eGFR 68 >=60 mL/min/1. 73m2 LAB CHEMISTRY METHOD 09/05/2024 5:21 PM [facility] Comment:Calculation based on the Chronic Kidney Disease Epidemiology Collaboration (CKD-EPI) equation refit without adjustment for race. BUN/Creatinine Ratio 16.3 LAB CHEMISTRY METHOD 09/05/2024 5:21 PM [facility] Calcium 9.0 8.5 - 10.5 mg/dL LAB CHEMISTRY METHOD 09/05/2024 5:21 PM [facility] AST (SGOT) 22 10 - 42 unit/L LAB CHEMISTRY METHOD 09/05/2024 5:21 PM [facility] ALT (SGPT) 27 10 - 60 unit/L LAB CHEMISTRY METHOD 09/05/2024 5:21 PM [facility] Alkaline Phosphatase 50 42 - 121 unit/L LAB CHEMISTRY METHOD 09/05/2024 5:21 PM [facility] Total Protein 6.8 6.0 - 8.0 g/dL LAB CHEMISTRY METHOD 09/05/2024 5:21 PM [facility] Albumin 3.8 3.2 - 5.0 g/dL LAB CHEMISTRY METHOD 09/05/2024 5:21 PM [facility] Total Bilirubin 0.3 0.0 - 1.4 mg/dL LAB CHEMISTRY METHOD 09/05/2024 5:21 PM [facility] Blood Venous blood specimen / Unknown Venipuncture / Unknown 09/05/2024 4:29 PM EST 09/05/2024 4:51 PM EST us Harris Fay MD LAB BLOOD ORDERABLES Final Resu lt [facility] [address] [place] [address], * TERELL SCREENING DIGITAL (01/23/2022 4:44 PM EDT) Anatomical Region Laterality Modality Mammography 01/23/2022 11:1 5 AM EDT Narrative 01/23/2022 4:44 PM EDT [facility] Diagnostic Imaging Department [address] [place] [address] Patient: EDU SUÁREZ Ellen /Age/Sex: 1965 - 56 - F Unit#: [id number] Location/Status: SPDIMAM/REG CLI Mnemonic/Ordering Site: [facility] Ordering Physician: KATHERIN ALVARADO MD Terell Screening Digital - 01/23/22 - 1154 History: Bilateral breast cancer screening. Technique: Digital mammography. Conventional CC and MLO projections with tomosynthesis MLO views and computer aided detection. Comparison: [facility] 01/27/2021 dating back to 02/10/2016. Findings: Breast tissue consists of fatty and fibroglandular elements (category b density) bilaterally (as calculated by [employer] software). There is no suspicious group of microcalcifications, mass, architectural distortion or suspicious change in breast tissue density. Impression: No evidence of malignancy. BIRADS category 1; negative study, 3341F 04613, 71125 Note: Patient information entered into a reminder system with a target due date for the next mammogram: CPT II 7025F Dictating Physician: CANDELARIO ENRIQUEZ MD Electronically Signed by: CANDELARIO ENRIQUEZ MD Dic Date/Time: 01/23/22 3432 Sign date/Time: 01/23/22 1774 Procedure Note Candelario Enriquez MD - 08/12/2022 [facility] Diagnostic Imaging Department [address] [place] [address] Patient: EDU SUÁREZ Ellen /Age/Sex: 1965 - 56 - F Unit#: [id number] Location/Status: SPDIMAM/REG CLI Mnemonic/Ordering Site: [facility] Ordering Physician: KATHERIN ALVARADO MD [...] malignancy. BIRADS category 1; negative study, 3341F 81751, [address]33 Note: Patient information entered into a reminder system with a target duedate for the next mammogram: CPT II 7025F Dictating Physician: CANDELARIO ENRIQUEZ MD Electronically Signed by: CANDELARIO ENRIQUEZ MD Dic Date/Time: 01/23/22 1640 Sign date/Time: 01/23/22 1681 us Katherin Alvarado MD IMG BI PROCEDURES Final Resu lt * TERELL DEXA AXIAL SKELETON (10/30/2019 8:08 AM EDT) Anatomical Region Laterality Modality Mammography 10/30/2019 7:36 AM EDT Narrative 10/30/2019 8:08 AM EDT [facility] Diagnostic Imaging Department [address] [place] [address] Patient: EDU SUÁREZ Ellen /Age/Sex: 1965 - 53 - F Unit#: [id number] Location/Status: [facility] CLI Mnemonic[facility] Ordering Physician: GERARDO LUX MD [facility] Dexa Axial Skeleton - 10/30/19758 [...] probability of hip fracture of 1.2%. Code 58341 Dictating Physician: GABRIELLA PIERRE MD Electronically Signed by: GABRIELLA PIERRE MD Dic Date/Time: 10/30/19805 Sign date/Time: 10/30/19 08 Procedure Note Gabriella Pierre - 08/11/2022 [facility] Diagnostic Imaging Department [address] [place] [address] Patient: EDU SUÁREZ Eleln CostaB./Age/Sex: 1965 - 53 - F Unit#: [id number] Location/Status: [facility] Mnemonic/Ordering Site: [facility] Ordering Physician: GERARDO LUX MD [facility] Dexa Axial Skeleton - 10/30/19 1864 HISTORY: The patient is a 53-year-old postmenopausal [...] density of the femurs bilaterally is 0.796 gm/vi3jrkgr is 79% of that of young normals [...] probability of hip fracture of 1.2%. Code 34111 Dictating Physician: GABRIELLA PIERRE MD Electronically Signed by: GABRIELLA PIERRE MD Dic Date/Time: 10/30/19 0806 Sign date/Time: 10/30/19 0808 Gerardo Lux MD IMG BI PROCEDURES Final Result from Last 3 Months or Most Recently Relevant to Health Maintenance Insurance MEDICAID - [place] Care Teams Black Top Machine Operator Relationship Specialty Start Date End Date Johann Trujillo MD [address] [place] [address] PCP - General Internal Medicine 09/06/24
--- OUTSIDE RECORDS SUMMARY | 2025-04-30 14:17 | XMS_ITS | Encounter Summary ---
Author Organization [facility] Address [address] [place] [address] Phone Care Team Providers Care Relay Telegrapher Name Role Phone Johann Trujillo MD Primary Care Provider [phone]- [phone] Encounter Details Date Type Department Care Team (Late st Contact Info) Description 01/09/2025 Procedure Pass [facility] PERIOPERATIVE DEPT [address] [place] [phone] Social History Tobacco Use Types Packs/Day Years [...] Description 07/12/2025 12:30 PM EST Office Visit [facility] Plastic and Reconstructive Surgery [address] [place] [address], 4th Floor, [address] [place] [address] Johann Francis MD [address] [place] [phone] [email or web address] documented as of this encounter Visit Diagnoses Not on filedocumented in this encounter Care Teams Relay Telegrapher Relationship Specialty Start Date End Date Johann Trujillo MD [address] [place] [address] PCP - General Internal Medicine 01/29/23 documented as of this encounter Additional Source Comments The information contained in this document represents components of the legal health record. It is not the complete legal health record.[facility]
== END 2025-04-30 11:38 | disposition home or self-care (01) ==
LOC: HO.MRI 11:37
PROVIDERS: Visit Provider Registered Nurse
DX: R55 Syncope and collapse (principal)
CPT/HCPCS: 70551

== ENCOUNTER 2025-05-22 11:45 | Outpatient (AMB) | payer MEDICARE, MEDICAID, SELFPAY ==
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
--- OUTSIDE RECORDS SUMMARY | 2025-05-22 13:10 | XMS_ITS | Encounter Summary ---
Author Organization [facility] Address [address] [place] [address] Phone Care Team Providers Care Adolescent Specialist Name Role Phone Johann Trujillo MD Primary Care Provider [phone] Encounter Details Date Type Department Care Team (Late st Contact Info) Description 04/27/2023 Procedure Pass [facility] PERIOPERATIVE DEPT [address] [place] [phone] Social History Tobacco Use Types Packs/Day Years [...] Description 07/12/2025 12:30 PM EST Office Visit [facility] Plastic and Reconstructive Surgery [address] [place] [address], 4th Floor, [address] [place] [address] Johann Francis MD [address] [place] [address] [address] [place] [address] [email or web address] documented as of this encounter Visit Diagnoses Not on filedocumented in this encounter Care Teams Adolescent Specialist Relationship Specialty Start Date End Date Johann Trujillo MD [address] [place] [id number] PCP - General Internal Medicine 01/29/23 documented as of this encounter Additional Source Comments The information contained in this document represents components of the legal health record. It is not the complete legal health record.[facility]
--- OUTSIDE RECORDS SUMMARY | 2025-05-22 13:10 | XMS_ITS | Encounter Summary ---
Author Organization [facility] Address [address] [place] [phone] Phone Care Team Providers Care Training And Development Director Name Role Phone Johann Trujillo MD Primary Care Provider [phone] Encounter Details Date Type Department Care Team (Late st Contact Info) Description 01/09/2025 Procedure Pass [facility] PERIOPERATIVE DEPT [address] [place] [phone] Social History Tobacco Use Types Packs/Day Years [...] Description 07/12/2025 12:30 PM EST Office Visit [facility] Plastic and Reconstructive Surgery [address] [place] [address], 4th Floor, [address] [place] [address] Johann Francis MD [address] [place] [address] [address] [place] [address] [email or web address] documented as of this encounter Visit Diagnoses Not on filedocumented in this encounter Care Teams Training And Development Director Relationship Specialty Start Date End Date Johann Trujillo MD [address] [place] [address] PCP - General Internal Medicine 01/29/23 documented as of this encounter Additional Source Comments The information contained in this document represents components of the legal health record. It is not the complete legal health record.[facility]
--- OUTSIDE RECORDS SUMMARY | 2025-05-22 13:10 | XMS_ITS | Encounter Summary ---
Author Organization [facility] Address [address] [place] [address] [place] [address] Phone Care Team Providers Care Service Supervisor Name Role Phone Tito Alvarado MD Primary Care Provider Pcp, Unknown Primary Care Provider Johann Schroeder MD Primary Care Provider [phone]- [phone] Encounter Details Date Type Department Care Team (Late Contact Info) Description 02/11/2022 Procedure Pass [facility]PT [address] [place] [phone] Social History Tobacco Use Types Packs/Day Years [...] Encounters Date Type Department Care Team (Late Contact Info) Description 07/12/2025 12:30 PM EST Office Visit [facility]astic and Reconstructive Surgery [address] [place] [address], 4th Floor, [address] [place] [address] Johann Francis MD [address] [place] [address] [address] [place] [address] [email or web address] documented as of this encounter Visit Diagnoses Not on filedocumented in this encounter Care Teams Service Supervisor Relationship Specialty Start Date End Date Tito Alvarado MD PCP - General Internal Medicine 07/30/21 12/15/22 Pcp, Unknown PCP - General 12/16/22 01/28/23 Johann Trujillo MD [address] [place] [address] PCP - General Internal Medicine 01/29/23 documented as of this encounter Additional Source Comments The information contained in this document represents components of the legal health record. It is not the complete legal health record.[facility]
--- OUTSIDE RECORDS SUMMARY | 2025-05-22 13:10 | XMS_ITS | Clinical Summary ---
Author Organization [facility] Address [address] [place] [address] Phone Care Team Providers Care Revenue Accounting Manager Name Role Phone Johann Trujillo MD Primary Care Provider [phone] Allergies Active Allergy Reactions Criticality Noted Date [...] Health Maintenance Due Date Last Done Comments Colorectal Cancer Screening: Colonoscopy 1965 Hepatitis A Vaccines (1 of 2 - Risk 2-dose series) 12/16/1986 Hepatitis B Vaccines (1 of 3 - 19+ 3-dose series) 12/16/1986 Cervical Cancer Screening: Pap Smear 12/16/1988 Pneumococcal Vaccine: 50+ Years (1 of 1 - PCV) 12/16/2017 Cholesterol Screening (Lipid Panel) 07/22/2022 HIV Screening 07/22/2022 Hepatitis C Screening [...] Osteoporosis Screening (Bone Density Screening) 10/29/2029 10/30/2019 RSV Immunization Adult Patients (1 - 1-dose 75+ series) 12/16/2042 Zoster Vaccines Completed 11/20/2018, 09/17/2018 HIB Vaccines [...] mmol/L LAB CHEMISTRY METHOD 09/05/2024 5:21 PM [facility] Potassium 4.5 3.5 - 5.5 mmol/L LAB CHEMISTRY METHOD 09/05/2024 5:21 PM [facility] Chloride 110 96 - 110 mmol/L LAB CHEMISTRY METHOD 09/05/2024 5:21 PM [facility] CO2 26 21 - 32 mmol/L LAB CHEMISTRY METHOD 09/05/2024 5:21 PM [facility] Anion Gap 4 3 - 11 LAB CHEMISTRY METHOD 09/05/2024 5:21 PM [facility] Glucose 95 70 - 100 mg/dL LAB CHEMISTRY METHOD 09/05/2024 5:21 PM [facility] BUN 16 5 - 25 mg/dL LAB CHEMISTRY METHOD 09/05/2024 5:21 PM [facility] Creatinine 0.98 0.50 - 1.10 mg/dL LAB CHEMISTRY METHOD 09/05/2024 5:21 PM [facility] eGFR 68 >=60 mL/min/1. 73m2 LAB CHEMISTRY METHOD 09/05/2024 5:21 PM [facility] Comment:Calculation based on the Chronic Kidney Disease Epidemiology Collaboration (CKD-EPI) equation refit without adjustment for race. BUN/Creatinine Ratio 16.3 LAB CHEMISTRY METHOD 09/05/2024 5:21 PM [facility] Calcium 9.0 8.5 - 10.5 mg/dL LAB CHEMISTRY METHOD 09/05/2024 5:21 PM [facility] AST (SGOT) 22 10 - 42 unit/L LAB CHEMISTRY METHOD 09/05/2024 5:21 PM [facility] ALT (SGPT) 27 10 - 60 unit/L LAB CHEMISTRY METHOD 09/05/2024 5:21 PM [facility] Alkaline Phosphatase 50 42 - 121 unit/L LAB CHEMISTRY METHOD 09/05/2024 5:21 PM [facility] Total Protein 6.8 6.0 - 8.0 g/dL LAB CHEMISTRY METHOD 09/05/2024 5:21 PM [facility] Albumin 3.8 3.2 - 5.0 g/dL LAB CHEMISTRY METHOD 09/05/2024 5:21 PM [facility] Total Bilirubin 0.3 0.0 - 1.4 mg/dL LAB CHEMISTRY METHOD 09/05/2024 5:21 PM [facility] Blood Venous blood specimen / Unknown Venipuncture / Unknown 09/05/2024 4:29 PM EST 09/05/2024 4:51 PM EST us Harris Fay MD LAB BLOOD ORDERABLES Final Resu lt [facility] [address] [place] [address], * TERELL SCREENING DIGITAL (01/23/2022 4:44 PM EDT) Anatomical Region Laterality Modality Mammography 01/23/2022 11:1 5 AM EDT Narrative 01/23/2022 4:44 PM EDT [facility] Diagnostic Imaging Department [address] [place] [address] Patient: EDU SUÁREZ Ellen /Age/Sex: 1965 - 56 - F Unit#: [id number] Location/Status: [facility] CLI Mnemonic/Ordering Site: [facility] Ordering Physician: KATHERIN ALVARADO MD Terell Screening Digital - 01/23/22 - 1154 History: Bilateral breast cancer screening. Technique: Digital mammography. Conventional CC and MLO projections with tomosynthesis MLO views and computer aided detection. Comparison: [facility] 01/27/2021 dating back to 02/10/2016. Findings: Breast tissue consists of fatty and fibroglandular elements (category b density) bilaterally (as calculated by [employer] software). There is no suspicious group of microcalcifications, mass, architectural distortion or suspicious change in breast tissue density. Impression: No evidence of malignancy. BIRADS category 1; negative study, 3341F [id number], [id number] Note: Patient information entered into a reminder system with a target due date for the next mammogram: CPT II 7025F Dictating Physician: CANDELARIO ENRIQUEZ MD Electronically Signed by: CANDELARIO ENRIQUEZ MD Dic Date/Time: 01/23/22 1640 Sign date/Time: 01/23/22 1644 Procedure Note Candelario Enriquez MD - 08/12/2022 [facility] Diagnostic Imaging Department [address] [place] [address] Patient: EDU SUÁREZ Ellen /Age/Sex: 1965 - 56 - F Unit#: [id number] Location/Status: [facility]/REG CLI Mnemonic/Ordering Site: [facility] Ordering Physician: KATHERIN ALVARADO MD Terell Screening Digital - 01/23/22 - 1154 History: Bilateral breast cancer screening. Technique: Digital mammography. Conventional CC and MLO projectionswith tomosynthesis MLO views and computer aided detection. Comparison: [facility] 01/27/2021 dating back to 02/10/2016. Findings: Breast tissue consists of fatty and fibroglandular elements (category b density) bilaterally (as calculated by [employer]). There is no suspicious group of microcalcifications, mass, architectural distortion or suspicious change in breast tissue density. Impression: No evidence of malignancy. BIRADS category 1; negative study, 3341F [id number], [id number] Note: Patient information entered into a reminder system with a target duedate for the next mammogram: CPT II 7025F Dictating Physician: CANDELARIO ENRIQUEZ MD Electronically Signed by: CANDELARIO ENRIQUEZ MD Dic Date/Time: 01/23/22 1640 Sign date/Time: 01/23/22 4297 us Katherin Alvarado MD IMG BI PROCEDURES Final Resu lt * TERELL DEXA AXIAL SKELETON (10/30/2019 8:08 AM EDT) Anatomical Region Laterality Modality Mammography 10/30/2019 7:36 AM EDT Narrative 10/30/2019 8:08 AM EDT [facility] Diagnostic Imaging Department [address] [place] [address] Patient: EDU SUÁREZ Ellen /Age/Sex: 1965 53 - F Unit#: [id number] [facility] Mnemonic/Ordering Site: [facility] Ordering Physician: GERARDO LUX MD [facility] Dexa Axial Skeleton - 10/30/19 8696 HISTORY: The patient is a 53-year-old postmenopausal [...] probability of hip fracture of 1.2%. Code 65079 Dictating Physician: GABRIELLA PIERRE MD Electronically Signed by: GABRIELLA PIERRE MD Dic Date/Time: 10/30/19805 Sign date/Time: 10/30/19807 Procedure Note Gabriella Pierre - 08/11/2022 [facility] Diagnostic Imaging Department [address] [place], [place] [id number] Patient: EDU SUÁREZ Ellen /Age/Sex: 1965 - 53 - F Unit#: [id number] [facility]Ordering Site: [facility] Ordering Physician: GERARDO LUX [...] density of the femurs bilaterally is 0.796 gm/gt8rpimy is 79% of that of young normals [...] probability of hip fracture of 1.2%. Code 73404 Dictating Physician: GABRIELLA PIERRE MD Electronically Signed by: GABRIELLA PIERRE MD Dic Date/Time: 10/30/19 0806 Sign date/Time: 10/30/19 0808 Gerardo Lux MD IMG BI PROCEDURES Final Result from Last 3 Months or Most Recently Relevant to Health Maintenance Insurance MED[place] - [place] Care Teams Revenue Accounting Manager Relationship Specialty Start Date End Date Johann Trujillo MD [address] [place] PCP - General Internal Medicine 09/06/24
--- OUTSIDE RECORDS SUMMARY | 2025-05-22 13:10 | XMS_ITS | Encounter Summary ---
Author Organization [facility] Address [address] [place] [address] [place] [phone] Phone Care Team Providers Care Occupational Medicine Officer Name Role Phone Jo-Ann Cho MD Primary Care Provider [phone]- [phone] Tito Alvarado MD Primary Care Provider Pcp, Unknown Primary Care Provider Johann Schroeder MD Primary Care Provider [phone]- [phone] Encounter Details Date Type Department Care Team (Late st Contact Info) Description 04/26/2018 Procedure Pass [facility] PERIOPERATIVE DEPT [address] [place] [id number] Social History Tobacco Use Types Packs/Day [...] Description 07/12/2025 12:30 PM EST Office Visit [facility] Plastic and Reconstructive Surgery [address] [place] [address], [address] Floor, [address] [place] [address] Johann Francis MD [address] [place] [address] [address] [place] [address] [email or web address] documented as of this encounter Visit Diagnoses Not on filedocumented in this encounter Additional Health Concerns Infection Onset Date Last Indicated Resolved Time COVID-19 12/14/2021 12/14/2021 01/04/2022 1:23 AM EDT documented as of this encounter Care Teams Occupational Medicine Officer Relationship Specialty Start Date End Date Jo-Ann Cho MD [address] [place] [phone] PCP - General Internal Medicine 03/30/18 07/29/21 Tito Alvarado MD [address] [place] [phone] PCP - General Internal Medicine 07/30/21 12/15/22 Pcp, Unknown PCP - General 12/16/22 01/28/23 Johann Trujillo MD [address] [place] [phone] PCP - General Internal Medicine 01/29/23 documented as of this encounter Additional Source Comments The information contained in this document represents components of the legal health record. It is not the complete legal health record.[facility]
--- OUTSIDE RECORDS SUMMARY | 2025-05-22 13:10 | XMS_ITS | Data Portability ---
Author Organization JAVIER - Esau Tavarez [facility], [facility] Address [address] [place] [address] Care Team Providers Care Plant Health Manager Name Role Phone KATHY MEGAHN Referring Provider ANDRESBrad MEGHAN Primary Care Provider EDER VIERA Pest Control Applicator Unavailab le Assessment No assessment recorded. Plan of Treatment Reminders Order Date Submit Date Provider Last Modified By Organization Details Last Modified Time Details Appointments None recorded. Lab None recorded. Referral None recorded. Procedures None recorded. Surgeries None recorded. Imaging XR, hip + pelvis, unilatera l, 2 or 3 view - New left hip, room UC2 2024 025 [email or web address] [facility], [address], [facility] [address], [place], [address], 5 16:39:03 electromy ogram + nerve conductio n study - Diagnosis : BUE EVALUATE BRACHIAL PLEXUS CARPAL AND CUBITAL TUNNELS AND CERVICAL RADICULOP RICH, please schedule with Dr.Spellm kapoor or Dr.Marine Sonu golden 2024 025 [email or web address] [facility] ([facility] [address], [place], [address], 5 15:32:26 XR, hand, 3 or more view - 3v bi hand, palliative senior np, rm 117 2024 025 [email or web address] [facility], [address], [address], [address], 5 15:32:26 MRI, shoulder, w/o contrast - right shoulder mri ?RCT 2024 025 [email or web address] [facility] ([facility] [address], [place], [address], 5 15:57:11 XR, shoulder, 2 or more view - room 217, R shoulder 4v 2024 025 [facility] Office, [address], [address], [place], [address], 5 13:48:24 Medication Orders None recorded. Patient TargetsNo targets recorded. Patient InstructionsNo instructions recorded. Reason for Referral None Reported. Results Created Date Observation Date Name Description Value Unit Range Abnormal Flag Note LastModifiedBy Organization Detail LastModifiedTime 11/07/1911/06/2024 XR, shoul nathanael, 2 or more view http:/ [email or web address] ?Encry pted=s hAaTro YD8dLq bEUv6g %2BXZw aYqtaq 0bqfl% 2Fg9IQ a4ajBk vP9nXo QUaueC m3YtLR FvZlgJ JJ8mAn HZtai3 1o5884 AC0KqY n6EUKS vKiQtr MwF [facility] [address], [place], [address], 11/06/2024 14:30:52 11/07/1911/06/2024 XR, shoul nathanael, 2 or more view http:/ [email or web address] ?Encry pted=s hAaTro YD8dLq bEUv6g %2BXZw aYqtaq 0bqfl% 2Fg9IQ a4ajBk vP9nXo QUaueC m3YtLR FvZlg JJ8mAn HZtai3 4g4953 AC0KqY n6EUKS vKiQtr MwF INTERFACE [facility] [address], [place], [address], 11/06/2024 14:30:54 03/28/20 25 03/28/2025 XR, hand, 3 or more view http:/ [email or web address] ?Encry pted=s hAaTro YD8dLq bEUv6g %2BXZw aYqtaq 0bqfl% 2Fg9IQ a4ajBk vP9nXo QUaueC m3YtLR FvZlgJ JJ8mAn HZtai3 8f4074 AC0Klb nuNUqq hKiQtr MwF INTERFACE [facility] [address], [place], [address], 03/28/2025 10:02:45 03/28/20 25 03/28/2025 XR, hand, 3 or more view http:/ [email or web address] ?Encry pted=s hAaTro YD8dLq bEUv6g %2BXZw aYqtaq 0bqfl% 2Fg9IQ a4ajBk vP9nXo QUaueC m3YtLR FvZlgJ JJ8mAn HZtai3 0k1146 AC0Klb nuNUqq hKiQtr MwF INTERFACE [facility] [address], [place], [address], 03/28/2025 10:02:46 03/29/20 25 03/29/2025 XR, hip + pelvi s, unila teral , 2 or 3 view http:/ [email or web address] ?Encry pted=s hAaTro YD8dLq bEUv6g %2BXZw aYqtaq 0bqfl% 2Fg9IQ a4ajBk vP9nXo QUaueC m3YtLR FvZlgJ JJ8mAn HZtai3 5b5561 AC0Klb nqBU6G lKiQtr MwF INTERFACE [facility] [address], [place], [address], 03/29/2025 09:20:32 03/29/20 25 03/29/2025 XR, hip + pelvi s, unila teral , 2 or 3 view http:/ [email or web address] ?Encry pted=s hAaTro YD8dLq bEUv6g %2BXZw aYqtaq 0bqfl% 2Fg9IQ a4ajBk vP9nXo QUaueC m3YtLR FvZlgJ JJ8mAn HZtai3 6u5552 AC0Klb nqBU6G lKiQtr MwF INTERFACE [facility] [address], [place], [address], 03/29/2025 09:20:33 03/29/20 25 03/29/2025 CT, hip, w/o contr ast No observ ation record ed. [email or web address] [facility] [place] [address] [facility] [address], [place], [address], 03/30/2025 08:29:58 Result Notes Documentation Provider Name and Address Organization Details Recorded Time Xr, Shoulder, 2 Or More View : [email or web address]? Encrypted=bhZcYxiHV4dDaoG Uv6g%9GJAmvSrhvk3zkrt%2Fg 6JFq3jdJwdX3cDmLGdfsGe1Fq WGIzYnyVHQ5gFuALodj32f772 3HF8OqXp2YPDYvCcIczBkG Not Available [facility] 11/06/2024 14:30: 53 Xr, Shoulder, 2 Or More View : [email or web address]? Encrypted=jxSyFiwZF2uZgdE Uv6g%6WNPjxRsqyr4rsbp%2Fg 4YDb2qrBegI5uLjNNxvpOq6En JQStGohFIC2yTnMAmsw67s818 7WK0MxVt8YHFByAdXvnYwJ Not Available [facility] 11/06/2024 14:30: 55 Xr, Hand, 3 Or More View : [email or web address]? Encrypted=gqAlBlqGI6uQbzT Uv6g%3QLEewAjppt5tdkr%2Fg 8SNx2ftDgwY7hLkYMiybQa4Qu TYOpQwfMND8hObIDyzx15f884 6DM1ErmxwDCqetVjEaaQdA Not Available [facility] 03/28/2025 10:02: 45 Xr, Hand, 3 Or More View : [email or web address]? Encrypted=voJqTpgZE3pQeuY Uv6g%6JFDyeGnalh2nvcw%2Fg 2NTn8dkFbtZ6qLlNRwnkDu1Ys KKPiOrlIWA9wHwCSyvs67n069 8PR9RndhgBJwjlQeDkmKwQ Not Available [facility] 03/28/2025 10:02: 46 Xr, Hip + Pelvis, Unilateral, 2 Or 3 View : [email or web address]? Encrypted=zbMeRzgLH6tAhuM Uv6g%6PKQpzOwttu3vzdl%2Fg 3UFs1uyNgoW8qKmQPhbcPf3Em UPDkSebBIP2lEcAEapj78j485 7NH0ItmtcIW0VeYjBucIlO Not Available [facility] 03/29/2025 09:20: 32 Xr, Hip + Pelvis, Unilateral, 2 Or 3 View : [email or web address]? Encrypted=ykVvMdoGC3zAuxC Uv6g%0DQSlpVtjal3nhkc%2Fg 4NFv6dyEdpP7xFtPXnuaNc8Wd TMEuOegHZR0gRxTOyzp86z488 7KG2BqnizXH6XtAtJisDkS Not Available [facility] 03/29/2025 09:20: 33 Problems Name Problem SNOMED Code Status Onset Date Resolution Date Notes Provider Name and Address Organization Details Recorded Time No complaint s 181970319 Active Status: 'I'; Not Available [facility] 4 09:15:56 Carpal tunnel syndrome of right wrist 263255071598 108 Active 2014 Problem Code: G56.01; Problem Code Type: ICD-10; Status: 'A'; Not Available [facility] 4 11:28:59 Trigger thumb of right hand 819280649233 105 Active 2017 Problem Code: M65.311; Problem Code Type: ICD-10; Status: 'A'; Not Available [facility] 4 11:28:59 Pain of right shoulder joint 674347592897 75272 Active 2024 Carolina Bowman PA-C [address], [place], [address] , [facility] 5 11:23:25 Pain of hip region 46189864 Active 2024 [facility] 5 09:11:40 Closed fracture of hip 534030315 Active 2024 Miracle Vines PA-C [address], [place], [address] , [facility] 5 09:42:02 Problem Notes None recorded. Procedures Surgical History Date Name Laterality Status Provider Name and Address Organization Details Recorded Time 11/07/19 25 Sports Shoulder completed Carolina Bowman PA-C [address], [place], [address], [facility] 11/06/2024 11:26:48 08/28/19 25 18924 Therapeutic Exercise (1:1) completed Nicole Maynard PTA [address], [place], [address], [facility] 08/28/2024 14:52:23 08/24/19 25 21668 Therapeutic Exercise (1:1) completed Nicole Maynard PTA [address], [place], [address], [facility] 08/24/2024 12:36:02 08/24/19 98669 Therapeutic Exercise (1:1) cancelled Nicole Maynard, BRAILLE TRANSLATOR [address], [place], [address], [facility] 08/22/2024 12:17:24 08/08/20 02351 Therapeutic Exercise (1:1) completed Nicole Maynard, BRAILLE TRANSLATOR [address], [place], [address], [facility] 08/08/2024 11:18:32 08/04/20 85550 Therapeutic Exercise (1:1) completed Nicole Maynard, BRAILLE TRANSLATOR [address], [place], [address], [facility] 08/04/2024 10:37:51 07/31/20 06602 Therapeutic Exercise (1:1) completed DONTE LOPEZ DPT [address], [place], [address], [facility] 08/01/2024 10:27:32 07/31/20 14178: Low complexity PT Eval completed DONTE LOPEZ DPT [address], [place], [address], [facility] 08/01/2024 10:28:04 Knee Surgery completed SULLY HERNANDEZ [facility] 03/28/2025 09:40:56 Shoulder Surgery completed SULLY HERNANDEZ [facility] 03/28/2025 09:40:56 Orthopedic Surgery completed SULLY HERNANDEZ [facility] 03/28/2025 09:40:56 Other completed SULLY HERNANDEZ [facility] 03/28/2025 09:40:56 Imaging Results None recorded. Procedure Notes None recorded. Medical Equipment None Reported. Allergies Allergen ID Allergen Name Allergen Category Reaction Reaction Severity Criticality Documentation Date Start Date Code Code System Note Provider Name and Address Organization Details Recorded Time 139352 Tegaderm medicatio n Not available Not available Not available 03/29/2025 NICO martinez [place] - [facility] 5 09:11:23 98164 Iodinated contrast media (substanc e) medicatio n Not available Not available Not available 10/25/20232005 57573 2003 SNOMED SULLY HERNANDEZJalyn martinez [place] - [facility] 5 09:40:53 33621 codeine medicatio n Not available Not available Not available 10/25/20232014 2670 RxNorm Not Available [facility] 4 13:40:16 Medications Name Sig Start Date Stop Date Status Note LastModified by Organization Details LastModified Time bupropion HCl SR 150 mg tablet,12 hr sustained-r elease TAKE 1 TABLET BY MOUTH TWICE DAILY 03/28 completed Not Available Not Available Not Available prednisone 10 mg tablet 03/28 completed Not Available Not Available Not Available gabapentin 600 mg tablet TAKE 1 TABLET BY MOUTH THREE TIMES DAILY 03/28 completed Not Available Not Available Not Available metoprolol succinate ER 50 mg tablet,exte nded release 24 hr active Not Available Not Available Not Available hydrocodone 5 mg-acetamin ophen 325 mg tablet TAKE 1 TABLET BY MOUTH EVERY 8 HOURS NEEDED FOR SEVERE PAIN FOR 5 DAY 03/28 completed Not Available Not Available Not Available donepezil 10 mg tablet TAKE 1 TABLET BY MOUTH AT BEDTIME active Not Available Not Available No t Available prednisone 20 mg tablet TAKE 1 TABLET BY MOUTH EVERY MORNING 03/28 completed Not Available Not Available Not Available alendronate 70 mg tablet active Not Available Not Available Not Available prednisone 5 mg tablet SEE TAPER DIRECTION S ATTACHED 03/28 completed Not Available Not Available Not Available hydroxyzine HCl 50 mg tablet TAKE 1 TABLET BY MOUTH THREE TIMES DAILY 03/28 completed Not Available Not Available Not Available aspirin 81 mg tablet,ed yed release TAKE 1 TABLET BY MOUTH TWICE DAILY 03/28 completed Not Available Not Available Not Available acetaminoph en ER 650 mg tablet,exte nded release TAKE 1 TABLET BY MOUTH FOUR TIMES DAILY active Not Available Not Available No t Available ketorolac 0.5 % eye drops INSTILL 1 DROP INTO THE AFFECTED EYE THREE TIMES DAILY STARTING 2 DAYS PRIOR TO SURGERY AND TAPER DIRECTED 03/28 completed Not Available Not Available Not Available gabapentin 800 mg tablet TAKE 1 TABLET BY MOUTH THREE TIMES DAILY active Not Available Not Available No t Available diazepam 2 mg tablet TAKE 2 TABLETS BY MOUTH THREE TIMES DAILY active Not Available Not Available No t Available cephalexin 500 mg capsule TAKE 1 CAPSULE BY MOUTH THREE TIMES DAILY 03/17 completed Not Available Not Available Not Available erythromyci n 5 mg/gram (0.5 %) eye ointment 03/28 completed Not Available Not Available Not Available clotrimazol e-betametha sone 1 %-0.05 % topical cream APPLY TOPICALLY TO THE AFFECTED AND SURROUNDI NG AREAS TWICE DAILY IN THE MORNING AND IN THE EVENING active Not Available Not Available No t Available pramipexole 0.125 mg tablet TAKE 3 TABLETS BY MOUTH AT BEDTIME active Not Available Not Available No t Available magnesium 500 mg (as magnesium oxide) tablet TAKE 1 TABLET BY MOUTH DAILY active Not Available Not Available No t Available omeprazole 20 mg capsule,del ayed release TAKE 1 CAPSULE BY MOUTH TWICE DAILY active Not Available Not Available No t Available hydroxyzine HCl 25 mg tablet TAKE 1 TO 2 TABLETS BY MOUTH THREE TIMES DAILY NEEDED 03/28 completed Not Available Not Available Not Available zolpidem 5 mg tablet 05/01 completed Not Available Not Available Not Available gabapentin 100 mg capsule TAKE 1 CAPSULE BY MOUTH THREE TIMES DAILY.JIMBO E WITH 600MG THREE TIMES DAILY TO EQUAL 700MG THREE TIMES DAILY 03/28 completed Not Available Not Available Not Available zolpidem 10 mg tablet 03/28 completed Not Available Not Available Not Available methylpredn isolone 4 mg tablets in a dose pack FOLLOW PACKAGE DIRECTION S 03/28 completed Not Available Not Available Not Available timolol maleate 0.5 % eye drops INSTILL 1 DROP IN BOTH EYES TWICE DAILY FOR 2 WEEKS 03/28 completed Not Available Not Available Not Available topiramate 100 mg tablet TAKE 1 TABLET BY MOUTH TWICE DAILY active Not Available Not Available No t Available dicyclomine 10 mg capsule active Not Available Not Available Not Available ipratropium bromide 21 mcg (0.03 %) nasal spray USE 1 SPRAY IN EACH NOSTRIL TWICE DAILY NEEDED FOR NASAL CONGESTIO N 05/01 completed Not Available Not Available Not Available diazepam 5 mg tablet active Not Available Not Available No t Available amoxicillin 875 mg-potassiu m clavulanate 125 mg tablet TAKE 1 TABLET BY MOUTH EVERY 12 HOURS 03/28 completed Not Available Not Available Not Available hydroxyzine pamoate 25 mg capsule TAKE 1 TO 2 CAPSULES BY MOUTH THREE TIMES DAILY NEEDED 03/28 completed Not Available Not Available Not Available neomycin 3.5 mg/g-polymy edita B 10,000 unit/g-dexa meth 0.1 % eye oint APPLY 1 INCH IN LEFT EYE FOUR TIMES DAILY FOR 2 WEEKS THEN STOP 05/01 completed Not Available Not Available Not Available cholestyram ine (with sugar) 4 gram powder for susp in a packet DISSOLVE 1 PACKET IN 2 - 6 OZ OF WATER OR NONCARBON ATED BEVERAGE THREE TIMES DAILY BEFORE A MEAL 03/28 completed Not Available Not Available Not Available bupropion HCl XL 300 mg 24 hr tablet, extended release TAKE 1 TABLET BY MOUTH DAILY active Not Available Not Available No t Available topiramate 50 mg tablet TAKE 1 TABLET BY MOUTH TWICE DAILY FOR 2 WEEKS THEN TAKE 2 TABLETS BY MOUTH TWICE DAILY FOR 30 DAYS DIRECTED 03/28 completed Not Available Not Available Not Available duloxetine 30 mg capsule,del ayed release TAKE 1 CAPSULE BY MOUTH EVERY DAY. TAKE WITH 60 MG CAPSULE FOR A TOTAL DAILY DOSE OF 90 MG DAILY 03/28 completed Not Available Not Available Not Available duloxetine 60 mg capsule,del ayed release TAKE 1 CAPSULE BY MOUTH TWICE DAILY active Not Available Not Available No t Available lactulose 10 gram/15 mL oral solution TAKE 15 ML BY MOUTH EVERY NIGHT AT BEDTIME FOR CONSTIPAT ION active Not Available Not Available No t Available solifenacin 10 mg tablet TAKE 1 TABLET BY MOUTH EVERY DAY active Not Available Not Available No t Available eszopiclone 2 mg tablet 03/28 completed Not Available Not Available Not Available diclofenac 1 % topical gel APPLY 2 GRAMS TO THE LEFT THUMB EVERY 4 HOURS. DO NOT USE MORE TAHN 12 GRAMS A DAY 03/28 completed Not Available Not Available Not Available oxycodone HCl-oxycodo ne-ASA as directed 1 TABLET Q 4 HOURS PRN PAIN DO NOT DRIVE WHILE ON THIS MED 05/01 completed Statu s: 'Curr ent'; Not Available Not Available Not Available mirabegron ER 25 mg tablet,exte nded release 24 hr TAKE 1 TABLET BY MOUTH EVERY DAY active Not Available Not Available No t Available Myrbetriq 50 mg tablet,exte nded release TAKE 1 TABLET BY MOUTH DAILY active Not Available Not Available No t Available calcium 600 mg (as carbonate)- vitamin D3 20 mcg (800 unit) tablet TAKE 1 TABLET BY MOUTH EVERY DAY.. active Not Available Not Available No t Available Linzess Linzess 290MCG Capsule 05/01 completed Statu s: 'Curr ent'; Not Available Not Available Not Available naloxone 4 mg/actuatio n nasal spray INSTILL 1 SPRAY INTO THE NOSTRIL MAY REPEAT DOSE IN OTHER NOSTRIL GIVE THE ADDITIONA L DOSE EVERY 2-3 MINUTES UNTIL RESPONSE OR MEDICAL ASSISTANC E 03/28 completed Not Available Not Available Not Available BinaxNOW COVID-19 Ag Self Test kit TEST DIRECTED TODAY 05/01 completed Not Available Not Available Not Available Vitals Date Recorded Body height Body mass index (BMI) Body weight Provider Name and Address Organization Details Last Updated DateTime 09/05/2024 162.56 cm 34.5 kg/m2 19956.07 g Mackenzie Mello [facility] 09/05/2024 13:48:45 Date Recorded Body height Body mass index (BMI) Body weight Provider Name and Address Organization Details Last Updated DateTime 11/06/2024 162.56 cm 34.3 kg/m2 18480.47 g Nhiconchita Perry [facility] 11/06/2024 14:20:42 Date Recorded Body height Body mass index (BMI) Body weight Provider Name and Address Organization Details Last Updated DateTime 03/20/2025 162.56 cm 34.3 kg/m2 28793.47 g Nhi Perry [facility] 03/20/2025 11:04:49 Date Recorded Body height Body mass index (BMI) Body weight Provider Name and Address Organization Details Last Updated DateTime 03/28/2025 162.56 cm 34.3 kg/m2 52889.47 g SULLY HERNANDEZ [facility] 03/28/2025 09:41:04 Date Recorded Body height Body mass index (BMI) Body weight Provider Name and Address Organization Details Last Updated DateTime 03/29/2025 157.48 cm 31.3 kg/m2 50602.3 g NICO WILLIAMSON [facility] 03/29/2025 09:11:13 Social History Question Answer Notes LastModified by [employer] [facility] [place] Details LastModified Time Tobacco Smoking Status Former Smoker SULLY WESTHERNANDEZLYUDMILA martinez [place] - [facility] 03/28/2025 09:40:55 When Did You Quit Smoking? 6-10yearssinc elastcigarett e [email or web address] Information not available 03/28/2025 Which Of Your Hands Is Dominant? Right [email or web address] Information not available 11/06/2024 What Is Your Relationship Status? [email or web address] Information not available 03/28/2025 How Many Years Have You Smoked Tobacco? 33 [email or web address] Information not available 03/28/2025 Sex: Unknown Functional Status Question Answer Note LastModified by [employer] [facility] [place] Details LastModified Time How many times per week do you consume alcohol? Less than 1 time per week [email or web address] Information not available 03/28/2025 Do you use any illicit or recreational drugs? No [email or web address] Information not available 03/28/2025 Do you or have you ever used any other forms of tobacco or nicotine? Yes [email or web address] Information not available 03/28/2025 Do you or have you ever used e-cigarettes or vape? Never used electronic cigarettes [email or web address] Information not available 03/28/2025 Mental Status None recorded. Family History Nothing Reported. Medical History Condition Response Allergies/Hayfever N Coronary Artery Disease N Anxiety/Depression Y Breathing or lung disorders N Emphysema N Nerve Disorders Y Thyroid Problems N COPD N Pacemaker N Anemia N Kidney/Bladder Problems Y Vascular Disease N Heart Trouble N Heart Attack (OK) N Gastrointestinal Disease N Cholesterol N Diabetes N Autoimmune disease N Inflammatory Joint disease N Bleeding Disorder N Orthotics N Arthritis Y Seizures/Epilepsy N Blood Clot N AIDS/HIV N Congestive Heart Failure (CHF) N Acid Reflux (GERD) N Cancer N Stroke N Asthma N Circulation Problems N Peripheral Vascular Disease N Sleep Apnea Y Hepatitis N Heart Disease N Rheumatoid Arthritis N Arrhythmia N Pulmonary Embolism N Headaches Y Fibromyalgia Y Hypertension Y Osteoporosis Y Gynecological HistoryNo gynecological history recorded. Obstetrics History GPAL:G 0 P 0 0 0 0 Past Encounters Encounter ID Performer Location Encounter Start Date Encounter Closed Date Diagnosis/Indication Diagnosis SNOMED-CT Code Diagnosis ICD10 Code Diagnosis IMO Codes Diagnosis Note [id number] Amena Dunlap PA-C [facility] [address] [place] [address] 05/01/2024 13:21:17 05/22/2024 16:15:52 Sprain of left ankle 6793419948 2907611 S93.402D Derangemen t of left ankle joint 5817622894 1439952 M24.992 [id number] Amena Dunlap PA-C [facility] [address] [place] [address] 05/12/2024 08:09:56 06/02/2024 10:16:01 Pain of left ankle joint 4069331053 3239141 M25.603 [id number] Amena Dunlap PA-C [facility] [address] [place] [address] 06/01/2024 10:06:21 06/27/2024 09:33:18 Pain in left foot 9029664364 31287 M79.672 Sprain of ankle 52592831 S93.402A [id number] Teresa Johnston PA-C [facility] [address] [place] [address] 06/07/2024 09:50:43 06/30/2024 12:06:10 Sprain of ankle 41010261 S93.402A [id number] Derek Anglin MD [facility] [address] [place] [address] 07/05/2024 08:35:12 08/04/2024 09:01:21 Pain of left forearm 2305641660 62590 M79.598 9292851 Pain of elbow region 743 42926 M25.522 310935 Bursitis o f olecranon of left elbow 7553094423 93195 M70.22 [id number] Contusion of left forearm 8115238614 3055417 S50.12XD [id number] [id number] Amena Dunlap PA-C [facility] [address] [place] [address] 07/11/2024 08:58:23 07/26/2024 12:13:12 Sprain of left ankle 0872394984 6895539 S93.402A [id number] DONTE LOPEZ, DPT [facility] [address] [place] [address] 07/31/2024 15:01:07 07/31/2024 16:05:20 Sprain of left ankle 7438801736 8093540 S93.402D [id number] Nicole Formejeste r, BRAILLE TRANSLATOR [facility] [address], [place] [address] 08/04/2024 09:13:24 08/04/2024 10:10:33 Sprain of left ankle 4880183938 9038527 S93.402D [id number] Nicole Formejeste r, BRAILLE TRANSLATOR [facility] [address], [place] [address] 08/08/2024 10:17:07 08/08/2024 11:28:09 Sprain of left ankle 9908403225 7430823 S93.402D [id number] Nicole Formejeste r, BRAILLE TRANSLATOR [facility] [address], [place] [address] 08/24/2024 13:16:14 08/24/2024 16:31:07 Sprain of left ankle 4875482970 [id number] S93.402D [id number] Nicole Formejeste r, BRAILLE TRANSLATOR [facility] [address] [place] [address] 08/28/2024 14:58:40 08/28/2024 16:02:34 Sprain of left ankle 5088119642 [id number] S93.402D [id number] Amena Dunlap PA-C [facility] [address] [place] [address] 09/05/2024 13:36:48 09/15/2024 10:35:47 Sprain of left ankle 3421487120 4918117 S93.492D [id number] Carolina Bowman PA-C [facility] [address] [place] [address] 11/06/2024 13:53:42 11/20/2024 13:48:23 Pain of right shoulder joint 2744444657 3864583 M25.511 923100 [id number] Ranjit Belle PA-C [facility] [address] [place] [address] 03/20/2025 10:54:09 04/02/2025 10:46:21 Rotator cuff arthropathy of right shoulder 1284326143 4122247 M75.101 M12.811 [id number] MD [facility] [address] [place] [address] 03/28/2025 09:33:13 04/02/2025 15:32:26 Pain of bilateral hands 8223676494 3680153 M79.641 M79.642 [id number] Bilateral carpal tunnel syndrome 4066050734 2325271 G56.03 588300 Arthritis 3684727 M19.90 681302 [id number] FAVIAN [place] [facility] [place] [address] [place] [address] 03/29/2025 08:21:27 04/05/2025 08:31:08 Pain of hip region [id number] M25.552 [id number] Closed fra cture of hip [id number] S72.002A [id number] Health Concerns Section Related Observation LastModified by Organization Detai ls LastModified Time None Recorded Concern Status LastModified by Organization Details LastModified Time None Recorded Advance Directives Directive None Recorded Payers Insurance Date Sequence Insurance Name Policy Number Policy Womack Covered Member ID Womack Member ID Guarantor Name 03/28/2025 SAFETY INSURANCE Halle Suárez 03/28/2025 1 [place] [employer] Edu Suárez [id number] Halle Suárez 03/28/2025 2 [place] [facility] Edu Suárez [id number] Halle Suárez Notes Date Note Type Note Provider Name and Address Organization Details Recorded Time 09/05/2024 text/html I am seeing this patient under the supervision of Dr. Patricio who was available but who did not see the patient.Clinical update: Patient is here today for recheck. She has been going to physical therapy. She is here today for recheck. Reports she is doing very well. Reports she no longer has any pain in the left foot and ankle. She is very pleased with her progress and does not have any concerns or complaints regarding the left foot or ankle today. Physical exam, imaging review, impression, and plan for today's visit updated below.HPI: Patient is a 58-year-old female with h/o lupus and fibromylagia presenting to the office today for evaluation of left foot pain status post fall on 03/31/24. She was seen at [facility] where x-rays were obtained and revealed no acute fractures or dislocations. She was not given a brace or a boot and has been walking with regular shoe wear. Reports she still has pain which is worse with weightbearing. Localizes the pain to the anterolateral aspect of the ankle and dorsal hindfoot. She is here today for orthopedic consultation.Past family, medical, social history and review of systems has been reviewed, updated and is located in the patient's chart.Examination: The patient is well appearing, alert and oriented x3 and in no acute distress. On inspection of the left foot and ankle, there is no edema, erythema, ecchymosis or deformity. Skin is intact, no open wounds. Patient is nontender about the foot and ankle today. Full range of motion in all planes. Neurovascularly intact distally. No gross instability. Calf is supple, nontender. No palpable defect noted along achilles tendon. Peripheral, vascular, lymphatic examination, skin, neurological, coordination, reflexes, sensation are within normal limits.Previous films: 3 view x-rays of the left foot reveal interval callus indicating healing anterior calcaneal process nondisplaced fracture. No other acute fractures or dislocations noted.MRI left ankle independently reviewed by myself: Subacute versus incomplete fracture of the anterior process of the calcaneus. Sprain of the anterior talofibular ligament. Small amount of fluid in the posterior tibialis, flexor digitorum and peroneal tendon sheaths, which may reflect tenosynovitis.Impressi on: left ankle sprain and anterior calcaneal process fracture 03/31/24, hypersensitivity, h/o lupus and fibromyalgiaPlan: I discussed my findings and the situation with the patient today. We discussed potential treatment options at this time. She is doing very well. She will follow-up with us on an as-needed basis. If things worsen or change she will call the office. Patient understands and agrees with this plan. All questions were answered.Speech recognition bottom buffer software was used to create portions of this document. An attempt at proofreading has been made to minimize errors. Please call for corrections. Amena Dunlap PA-C [address], [place], [address], [facility] 09/05/2024 14:34:46 11/06/2024 text/html I am seeing the patient today under the supervision of Dr. Middleton who was available but did not see the patient. CLINICAL UPDATE:58-year-old xivek-pyxl-gncxglsh female patient presents today for right shoulder pain that gradually has been worsening over the last 6 months, no specific injury. She uses a cane to ambulate mostly in her right hand. She has completed formal physical therapy and a cortisone injection previously with good relief. She takes Tylenol arthritis 4 times a day and gabapentin. Pain is worse when lifting her arm and at night. She does note some popping sensations in her shoulder. Denies numbness or tingling down the right upper extremity. HPI: Previously evaluated for her right shoulder in February 2023 by one of my colleagues, diagnosed with impingement and received a cortisone injection with good relief. History of left shoulder SADDCE 2021 Dr. Gonzalez. Past family, medical, social history and review of systems has been reviewed, updated and is located in the patient's chart. X-RAYS:4v x-rays of the Right shoulder ordered, obtained and reviewed at [facility] today demonstrates cystic changes of the humeral head, moderate AC joint space narrowing, type II-III acromion, well-preserved glenohumeral joint space. IMPRESSION: Right shoulder impingement PLAN: Findings reviewed. Discussed that is possible she has at least a partial-thickness degenerative rotator cuff tear. She has had several surgeries and has another surgery upcoming, she wants to avoid surgery with her shoulder. Discussed MRI imaging, she elected to hold off today. She elected to proceed with a right shoulder cortisone injection today. Recommended continuing her home physical therapy exercises. Recommended continuing Tylenol as needed for pain relief. She would like to follow-up in 3 months for recheck and ongoing treatment discussion, discussed if no improvement could consider MRI imaging at that time. All of her concerns are addressed and she understands and agrees with the plan. Speech recognition bottom buffer software was used to create portions of this document. An attempt at proofreading has been made to minimize errors. Please call for corrections. Carolina Bowman PA-C [address], [place], [address], [facility] 11/06/2024 16:23:52 03/20/2025 text/html I am seeing the patient today under the supervision of who was available but who did not see the patient. HPI: Patient comes in for recheck of right shoulder pain. Was last seen by a colleague for underlying impingement and possible rotator cuff pathology and received a cortisone injection with good relief for 1 months. Pain is returned over the lateral brachium. Difficulty with overhead motions and reaching behind her back. Has had no new injuries no other modalities. Past family, medical, social history and review of systems has been reviewed, updated and is located in the patient s chart. Examination: The patient is well appearing and in no apparent distress. Alert and oriented x3. Gait is symmetric. Vital signs per intake sheet . Evaluation of the right shoulder has no effusion erythema or warmth. Good muscle bulk when compared bilaterally. Has supple range of motion of that shoulder. 4+/5 strength rotator cuff and biceps tendon. Positive impingement arc negative cross body. Impression: Impingement right shoulder Plan: Nature diagnosis discussed with patient today. Both surgical and nonsurgical options are reviewed. At this time patient MRI to further evaluate the integrity of the rotator cuff as she is already failed attempted conservative management not happy with pain level and function. Will follow-up in approximately 3 weeks for MRI review, sooner if symptoms dictate. [facility] speech recognition bottom buffer software was used to create portions of this document. An attempt at proofreading has been made to minimize errors. Please call for corrections. Ranjit Belle PA-C [address], [place], [address], [facility] 03/20/2025 12:09:50 03/28/2025 text/html ROS as noted in the HPI Diagnosis: Peripheral nerve irritation bilateral hands status post bilateral carpal tunnel releasesPossible inflammatory arthritis bilateral hands 59-year-old female with a 3-month history of progressively worsening numbness, tingling, swelling, stiffness of her bilateral hands. She reports numbness and tingling in all of the digits. She has progressively increased stiffness and pain in her fingers. Past family, medical, social history and review of systems has been reviewed, updated and is located in the patient s chart. Examination: Healthy appearing patient in no apparent distress. Alert and oriented. Moderate soft tissue swelling bilateral hands. Increased stiffness on the right versus the left in flexion. Provocative testing of wrist and digits reveal no instability. Carpal tunnel compression testing and Phalen's maneuver are negative bilaterally. No atrophy in either upper extremity. Brisk capillary refill in all digits X-rays ordered, obtained, and reviewed today at [facility]: PA, lateral, oblique views of both hands reveal really minimal arthritic change. Plan: The patient and I discussed the situation at length. The patient's history and physical examination are consistent with a peripheral nerve irritation. I would like to obtain an EMG/NCS to confirm the diagnosis and get a sense of its severity and location. The patient will follow-up with me after the study has been obtained. I have also recommended the patient be evaluated by a reversing mill roller to rule out the presence of inflammatory arthropathy. Her rapid progression in terms of swelling and pain would be consistent with that diagnosis. She will follow-up as directed. Derek Anglin MD [address] [place] [address] [address], [place], [address], [facility] 03/28/2025 13:08:05 03/29/2025 text/html I am seeing the patient today under the supervision of Dr. Nguyen who was available but who did not see the patient.History is taken from the patientHPI: Patient here today pleasant 59-year-old female who presents to the orthopedic urgent care clinic. She has frequent falls. Recently also hospitalized for concussion secondary to another fall. She fell in her bathroom 1 week ago and landed on her left hip. Has been having severe pain since then. Her hip was not evaluated in the hospital. Complains of left hip groin pain and pain on the outer aspect of her hip. She tells me it is getting worse with time. She ambulates at baseline with a walker however she tells me it is getting difficult to even mobilize at all. Should be noted that patient has 2 implanted nerve stimulators the right sided wire is displaced and is pending revision.Past family, medical, social history and review of systems has been reviewed, updated and is located in the patient s chart.EXAMINATION: Patient tolerates internal/external rotation of her left hip poorly. She transitions very slowly and has a severely antalgic gait. She has pain to palpation at over her greater trochanter as well. No obvious source of ecchymosis or bruising. Patient is alert oriented and appropriate in the office she has difficulty completing hip flexion as this causes severe pain as well. She has no obvious rotational deformity to her left lower extremity.X-RAYS: Were ordered, obtained and independently reviewed today in our office. Performed in the findings are as follows: 2 views of her left hip do not show any obvious source of fracture.DIAGNOSIS: Occult left hip fractureMEDICAL DECISION MAKING:Patient's clinical presentation and exam is highly consistent with a hip fracture. Recommend immediate evaluation with CAT scan to further assess for possibility of hip fracture. She will remain limited weightbearing and try and offload her hip is much as possible try and remain on bedrest until we have CAT scan results. She agrees with this. I will call her as soon as I haveToday's visit involved examining the patient, reviewing the history, reviewing the radiographic studies, counseling the patient regarding treatment options, and the administrative tasks including placing orders, preparing patient information and home handouts and preparing the visit note. This note was generated with [facility] speech recognition bottom buffer dictation software. Please excuse any errors that may have been overlooked during review of this note. Sometimes, these errors may affect the content or meaning of a given sentence. Please call for corrections. Miracle Vines PA-C [address], [place], [address], [facility] 03/29/2025 09:42:28 OBGyn Episode No OBEpisode recorded.
--- OUTSIDE RECORDS SUMMARY | 2025-05-22 13:10 | XMS_ITS | Encounter Summary ---
Author Organization [facility] Address [address] [place] [address] [place] [address] Phone Care Team Providers Care Hr Consultant Name Role Phone Jo-Ann Cho MD Primary Care Provider [phone]- [phone] Tito Alvarado MD Primary Care Provider Pcp, Unknown Primary Care Provider Johann Schroeder MD Primary Care Provider [phone]- [phone] Encounter Details Date Type Department Care Team (Late st Contact Info) Description 04/06/2018 Prep for Surgery [facility] Plastic and Reconstructive Surgery [address] [place] [address], 4th Floor, [address] [place] [address] Ann Parrish, [facility] [address] [place] [address] [email or web address] Social History Tobacco Use Types Packs/Day [...] Description 07/12/2025 12:30 PM EST Office Visit [facility] Plastic and Reconstructive Surgery [address] [facility], 4th Floor, [address] [place] [address] Johann Francis MD [address] [place] [address] [email or web address] documented as of this encounter Visit Diagnoses Not on filedocumented in this encounter Additional Health Concerns Infection Onset Date Last Indicated Resolved Time COVID-19 12/14/2021 12/14/2021 01/04/2022 1:23 AM EDT documented as of this encounter Care Teams Hr Consultant Relationship Specialty Start Date End Date Jo-Ann Cho MD [address] [place] [address] PCP - General Internal Medicine 03/30/18 07/29/21 Tito Alvarado MD [address] [place] [address] PCP - General Internal Medicine 07/30/21 12/15/22 Pcp, Unknown PCP - General 12/16/22 01/28/23 Johann Trujillo MD [address] [place] [address] PCP - General Internal Medicine 01/29/23 documented as of this encounter Additional Source Comments The information contained in this document represents components of the legal health record. It is not the complete legal health record.[facility]
--- OUTSIDE RECORDS SUMMARY | 2025-05-22 13:10 | XMS_ITS | Clinical Summary ---
Author Organization [facility] Address [address] [place] [address] Phone Care Team Providers Care Switch Operator Name Role Phone Johann Trujillo MD Primary Care Provider [phone]- [phone] Allergies Active Allergy Reactions Criticality Noted Date Comments Codeine Nausea and/or Vomiting 11/28/2014 Iodinated Contrast Media 11/28/2014 UNSPECIFIED Contrast Media - [place] warm and sick Adhesive Tape-Silicones Rash Low 12/19/2024 Medications solifenacin (VESICARE) 10 MG tablet Take 10 mg by mouth nightly at bedtime. Active ID-duloxetine DR ([id number]) 60 mg capsule nightly at bedtime. 07/02/2021 [...] 04/23/2022 Active ID-vitamin D3 or placebo ([phone] 41923 iu capsule Active hydrOXYzine (VISTARIL) 25 MG [...] Encounters Date Type Department Care Team Description 05/08/2025 Transcribe Orders [facility] [address] [place] [address] Kamilla Silverman PA Encounter for rehabilitation (Primary Dx) 04/05/2025 12:30 PM EDT Office Visit [facility] Plastic and Reconstructive Surgery [address] [place] [address], 4th Floor, [address] [place] [address] Johann Francis MD Bilateral occipital neuralgia (Primary [...] [place] [address] [place] [address], 4th Floor, [address] [place] [id number] Johann Francis MD [address] [place] [address] [email or web address] Health Maintenance Due Date Last Done Comments [...] this topic Medical Devices Implanted Type Area Jalousies Installer Device Identifier Shelf Expiration Date Model / Serial / Lot Irving-09/27/2022 Implanted:2022 (Quantity not on file) [employer] [place] [id number] [place] [employer] MEDICARE PART A & [address] [place], [place] [address]HEALTH MEDICARE PART A & B MEDICARE PART A & [address] [place], [place] [address] [address] [place] [address] MEDICARE PART A & B Care Teams Switch Operator Relationship Specialty Start Date End Date Johann Trujillo MD [address] [place] [address] PCP - General Internal Medicine 01/29/23 Additional Source Comments The information contained in this document represents components of the legal health record. It is not the complete legal health record.[facility]
== END 2025-05-22 12:32 | disposition home or self-care (01) ==
LOC: HO.HSM 11:46
PROVIDERS: PCP Internal Medicine; Visit Provider Psychiatry & Neurology Neurology
DX: R55 Syncope and collapse (principal); G43.109 Migraine with aura, not intractable, without status migrainosus; G31.84 Mild cognitive impairment of uncertain or unknown etiology; M50.90 Cervical disc disorder, unspecified, unspecified cervical region; M79.7 Fibromyalgia; I65.29 Occlusion and stenosis of unspecified carotid artery
CPT/HCPCS: 99214

== ENCOUNTER → 2025-05-22 11:45 | Outpatient (BNVA) | payer MEDICARE, MEDICAID, SELFPAY | PROVIDERS: PCP Internal Medicine; Visit Provider Psychiatry & Neurology Neurology | DX: R55 Syncope and collapse (principal); G43.109 Migraine with aura, not intractable, without status migrainosus; M50.90 Cervical disc disorder, unspecified, unspecified cervical region; M79.7 Fibromyalgia; I65.29 Occlusion and stenosis of unspecified carotid artery | CPT/HCPCS: 99212 ==

== ENCOUNTER → 2025-06-05 10:35 | Outpatient (REF) | payer MEDICARE, MEDICAID, SELFPAY ==
--- NOTE | 2025-06-05 10:38 | HM_ITS ---
* Total procedure length 30 days. Wear time 28 days. * Underlying rhythm is sinus with an average rate of 59/Min. * Rare supraventricular ectopy. Short runs noted. * Rare ventricular ectopy. * No significant pauses or high-grade AV blocks. * Patient's symptoms including anxiety, chest pain, shortness of breath, heart pounding, lightheadedness correlate with sinus rhythm. MTDD
--- OUTSIDE RECORDS SUMMARY | 2025-06-05 12:29 | XMS_ITS | Encounter Summary ---
Author Organization [facility] Address [address] [place] [address] Phone Care Team Providers Care Phlebotomy Instructor Name Role Phone Johann Trujillo MD Primary Care Provider +1- [phone] Encounter Details Date Type Department Care Team (Late st Contact Info) Description 01/09/[address] [facility] [address] [place] [id number] Social History Tobacco Use Types Packs/Day Years [...] Care Team (Late st Contact Info) Description 06/21/2025 3:[address] [facility]ive Surgery [address] [place] [address], 4th Floor, [address] [place] [address] Johann Francis MD [address] [place] [address] [address] [place] [address] [email or web address] documented as of this encounter Visit Diagnoses Not on filedocumented in this encounter Care Teams Phlebotomy Instructor Relationship Specialty Start Date End Date Johann Trujillo MD [address] [place] [address] PCP - General Internal Medicine 01/29/23 documented as of this encounter Additional Source Comments The information contained in this document represents components of the legal health record. It is not the complete legal health record.[facility]
--- OUTSIDE RECORDS SUMMARY | 2025-06-05 12:29 | XMS_ITS | Clinical Summary ---
Author Organization [facility] Address [address] [place] [address] Phone Care Team Providers Care Tip Puncher Name Role Phone Johann Trujillo MD Primary Care Provider [phone] Allergies Active Allergy Reactions Criticality Noted Date [...] PANEL STAT 09/05/2024 4:29 PM EST [facility] SCREENING DIGITAL Routine 01/23/2022 4:44 PM EDT Encounter for screening mammogram for malignant neoplasm of breast [facility] DEXA AXIAL SKELETON Routine 10/30/2019 8:08 AM [...] [facility] Comment:Calculation based on the Chronic [...] MD LAB BLOOD ORDERABLES Final Resu lt [facility] [address] [place] [address], * [facility] SCREENING DIGITAL (01/23/2022 4:44 PM EDT) Anatomical Region Laterality Modality Mammography 01/23/2022 11:1 5 AM EDT Narrative 01/23/2022 4:44 PM EDT [facility] Diagnostic Imaging Department [address] [place] [id number] Patient: EDU SUÁREZ Ellen /Age/Sex: 1965 - 56 - F Unit#: [id number] Location/Status: [facility] CLI Mnemonic/Ordering Site: [facility] Ordering Physician: KATHERIN ALVARADO MD [facility] Screening Digital - 01/23/22 - 1154 History: Bilateral breast cancer screening. Technique: Digital mammography. Conventional CC and MLO projections with tomosynthesis MLO views and computer aided detection. Comparison: [facility] 01/27/2021 dating back to 02/10/2016. Findings: Breast tissue consists of fatty and fibroglandular elements (category b density) bilaterally (as calculated by [employer] software). There is no suspicious group of microcalcifications, mass, architectural distortion or suspicious change in breast tissue density. Impression: No evidence of malignancy. BIRADS category 1; negative study, 3341F 20483, 04441 Note: Patient information entered into a reminder system with a target due date for the next mammogram: CPT II 7025F Dictating Physician: CANDELARIO ENRIQUEZ MD Electronically Signed by: CANDELARIO ENRIQUEZ MD Dic Date/Time: 01/23/22 1640 Sign date/Time: 01/23/22 1644 Procedure Note Candelario Enriquez MD - 08/12/2022 [facility] Diagnostic Imaging Department [address] [place] [address] Patient: EDU SUÁREZ Ellen /Age/Sex: 1965 - 56 - F Unit#: [id number] Location/Status: [facility]/REG CLI Mnemonic/Ordering Site: [facility] Ordering Physician: KATHERIN ALVARADO MD Terell [...] malignancy. BIRADS category 1; negative study, 3341F 27379, 99992 Note: Patient information entered into a reminder system with a target duedate for the next mammogram: CPT II 7025F Dictating Physician: CANDELARIO ENRIQUEZ MD Electronically Signed by: CANDELARIO ENRIQUEZ MD Dic Date/Time: 01/23/22 1640 Sign date/Time: 01/23/22 6367 us Katherin Alvarado MD IMG BI PROCEDURES Final Resu lt * [facility] DEXA AXIAL SKELETON (10/30/2019 8:08 AM EDT) Anatomical Region Laterality Modality Mammography 10/30/2019 7:36 AM EDT Narrative 10/30/2019 8:08 AM EDT [facility] Diagnostic Imaging Department [address] [place] [address] Patient: EDU SUÁREZ Ellen /Age/Sex: 1965 53 - F Unit#: [id number] [facility] Site: [facility] Ordering Physician: GERARDO LUX MD [facility] Dexa Axial Skeleton - 10/30/19 3987 HISTORY: The patient is a 53-year-old postmenopausal [...] probability of hip fracture of 1.2%. Code 09109 Dictating Physician: GABRIELLA PIERRE MD Electronically Signed by: GABRIELLA PIERRE MD Dic Date/Time: 10/30/19805 Sign date/Time: 10/30/19807 Procedure Note Gabriella Pierre - 08/11/2022 [facility] Diagnostic Imaging Department [address] [place], [place] [id number] Patient: EDU SUÁREZ Ellen /Age/Sex: 1965 - 53 - F Unit#: [id number] [facility] Ordering Physician: GERARDO LUX MD Terell [...] density of the femurs bilaterally is 0.796 gm/wn8urabw is 79% of that of young normals [...] probability of hip fracture of 1.2%. Code 64489 Dictating Physician: GABRIELLA PIERRE MD Electronically Signed by: GABRIELLA PIERRE MD Dic Date/Time: 10/30/19 0806 Sign date/Time: 10/30/19 0808 Gerardo Lux MD IMG BI PROCEDURES Final Result from Last 3 Months or Most Recently Relevant to Health Maintenance Insurance MEDICAID - [place] Care Teams Tip Puncher Relationship Specialty Start Date End Date Johann Trujillo MD [address] [place] PCP - General Internal Medicine 09/06/24
--- OUTSIDE RECORDS SUMMARY | 2025-06-05 12:29 | XMS_ITS | Data Portability ---
Author Organization JAVIER - Esau Tavarez Ndha [facility], [facility] Address [address] [place] [address] Care Team Providers Care Mathematics Lecturer Name Role Phone KATHY MEGHAN Referring Provider ANDRESBrad MEGHAN Primary Care Provider EDER VIERA Communication Signals Intelligence Unavailab le Assessment No assessment recorded. Plan of Treatment Reminders Order Date Submit Date Provider Last Modified By Organization Details Last Modified Time Details Appointments None recorded. Lab None recorded. Referral None recorded. Procedures None recorded. Surgeries None recorded. 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 Patient [...] a4ajBk vP9nXo QUaueC m3YtLR FvZlgJ JJ8mAn HZtai3 8u2318 AC0KqY n6EUKS vKiQtr MwF INTERFACE [facility] [address], [place], [address], 11/06/2024 14:30:52 11/07/19 25 11/06/2024 XR, shoul nathanael, 2 or more view http:/ [email or web address] ?Encry pted=s hAaTro YD8dLq bEUv6g %2BXZw aYqtaq 0bqfl% 2Fg9IQ a4ajBk vP9nXo QUaueC m3YtLR FvZlgJ JJ8mAn HZtai3 8d9050 AC0KqY n6EUKS vKiQtr MwF INTERFACE [facility] [address], [place], [address], 11/06/2024 14:30:54 03/28/20 25 03/28/2025 XR, hand, 3 or more view http:/ [email or web address] ?Encry pted=s hAaTro YD8dLq bEUv6g %2BXZw aYqtaq 0bqfl% 2Fg9IQ a4ajBk vP9nXo QUaueC m3YtLR FvZlgJ JJ8mAn HZtai3 8h0724 AC0Klb nuNUqq hKiQtr MwF INTERFACE [facility] [address], [place], [address], 03/28/2025 10:02:45 03/28/20 25 03/28/2025 XR, hand, 3 or more view http:/ [email or web address] ?Encry pted=s hAaTro YD8dLq bEUv6g %2BXZw aYqtaq 0bqfl% 2Fg9IQ a4ajBk vP9nXo QUaueC m3YtLR FvZlgJ JJ8mAn HZtai3 1t3690 AC0Klb nuNUqq hKiQtr MwF INTERFACE [facility] [address] [place] [address], [place], [address], 03/28/2025 10:02:46 03/29/20 25 03/29/2025 XR, hip + pelvi s, unila teral , 2 or 3 view http:/ [email or web address] ?Encry pted=s hAaTro YD8dLq bEUv6g %2BXZw aYqtaq 0bqfl% 2Fg9IQ a4ajBk vP9nXo QUaueC m3YtLR FvZlgJ JJ8mAn HZtai3 9t1772 AC0Klb nqBU6G lKiQtr MwF INTERFACE [facility] [address], [place], [address], 03/29/2025 09:20:32 03/29/20 25 03/29/2025 XR, hip + pelvi s, unila teral , 2 or 3 view http:/ [email or web address] ?Encry pted=s hAaTro YD8dLq bEUv6g %2BXZw aYqtaq 0bqfl% 2Fg9IQ a4ajBk vP9nXo QUaueC m3YtLR FvZlgJ JJ8mAn HZtai3 2z3925 AC0Klb nqBU6G lKiQtr MwF INTERFACE [facility] [address], [place], [address], 03/29/2025 09:20:33 03/29/20 25 03/29/2025 CT, hip, w/o contr ast No observ ation record ed. [email or web address] [facility] [place] [address] [facility] [address], [place], [address], 03/30/2025 08:29:58 05/25/20 25 05/25/2025 elect romyo gram + nerve condu ction study No observ ation record ed. [facility] Scheduling Dept [address] [facility], [place], [address], 05/28/2025 12:51:30 Result Notes Documentation Provider Name and Address Organization Details Recorded Time Xr, Shoulder, 2 Or More View : [email or web address]? Encrypted=xmPeSzwIN1qVsfG Uv6g%9ULHlfVlanj4cmuk%2Fg 4RPb6qnPfjE7iDrGJawsWt2Cn ESKwNpmFDZ0uOdAHwfk09o240 0QK1BwMy2CFCEvQwHgbAsH Not Available [facility] 11/06/2024 14:30: 53 Xr, Shoulder, 2 Or More View : [email or web address]? Encrypted=zvOrGtuDJ4lFqjG Uv6g%4QJZcrFhbwk5splm%2Fg 4VJj0odWfxL1mQiJBwoaEc5Xm IPXsRfrPII3jFgPGstb71k508 9ZE7UoEr0SUZOoUqUtyEqY Not Available [facility] 11/06/2024 14:30: 55 Xr, Hand, 3 Or More View : [email or web address]? Encrypted=inEdWtoAA0cIwwF Uv6g%9UUZnpMsrpg8okfr%2Fg 9PLs1tlPnnR0tHlLHfwtUb8Vh NOArUwgSQA9iYrNGvpc62d308 0SU0PzvrxMGxzhJvGhjVqA Not Available [facility] 03/28/2025 10:02: 45 Xr, Hand, 3 Or More View : [email or web address]? Encrypted=ooTqOgcWF2xRjpA Uv6g%7EQKfdWdfwk2grrs%2Fg 3EVl9avSstF8jRhGQvqzCi3Hq SPAhLrvNLY9bXmQUkuh76x081 8DB2CnfbbLMcajKlXreGvB Not Available [facility] 03/28/2025 10:02: 46 Xr, Hip + Pelvis, Unilateral, 2 Or 3 View : [email or web address] Encrypted=lvAiFgnLY8oJamC Uv6g%0TNEjfZzryp8ande%2Fg 4EHm5ltAocA0eMsAXfkqXw4Se DIEiDupBVN4qEmPUmte75w759 5HM3MlibqFO8UgCnSymNtZ Not Available [facility] 03/29/2025 09:20: 32 Xr, Hip + Pelvis, Unilateral, 2 Or 3 View : [email or web address] Encrypted=gxByIxbFU1uBcyX Uv6g%5WEHlvInwut8tvjg%2Fg 9PVz4ckOyxU9iYbKUnqeUw9Fz PKCgShzDAQ5cQrOZnpx53m030 2GU0UghngHU3KyAiPwgLvX Not Available [facility] 03/29/2025 09:20: 33 Problems Name Problem SNOMED Code Status Onset Date Resolution Date Notes Provider Name and Address Organization Details Recorded Time No complaint s 594237342 Active Status: 'I'; Not Available [facility] 4 09:15:56 Carpal tunnel syndrome of right wrist 961391801186 108 Active 2014 Problem Code: G56.01; Problem Code Type: ICD-10; Status: 'A'; Not Available [facility] 4 11:28:59 Trigger thumb of right hand 838906411550 105 Active 2017 Problem Code: M65.311; Problem Code Type: ICD-10; Status: 'A'; Not Available [facility] 4 11:28:59 Pain of right shoulder joint 567219005280 28447 Active 2024 Carolina Bowman PA-C [address], [place], [address] , [facility] 5 11:23:25 Pain of hip region 37013509 Active 2024 NICO martinez [facility] 5 09:11:40 Closed fracture of hip 495951602 Active 2024 Miracle Vines PA-C [address], [place], [address] , [facility] 5 09:42:02 Problem Notes None recorded. Procedures Surgical History Date Name Laterality Status Provider Name and Address Organization Details Recorded Time 05/30/20 25 Carpal Tunnel Kenalog 1cc Injection, Bilateral completed Derek Anglin MD [address], [place], [address], [facility] 05/30/2025 11:34:37 11/07/19 25 Sports Shoulder completed Carolina Bowman PA-C [address], [place], [address], [facility] 11/06/2024 11:26:48 08/28/19 42774 Therapeutic Exercise (1:1) completed Nicole Maynard, TREE DRILLER [address], [place], [address], [facility] 08/28/2024 14:52:23 08/24/19 39158 Therapeutic Exercise (1:1) completed Nicole Maynard, TREE DRILLER [address], [place], [address], [facility] 08/24/2024 12:36:02 08/24/19 11309 Therapeutic Exercise (1:1) cancelled Nicole Maynard, TREE DRILLER [address], [place], [address], [facility] 08/22/2024 12:17:24 08/08/20 06380 Therapeutic Exercise (1:1) completed Nicole Maynard, FRED [address], [place], [address], [facility] 08/08/2024 11:18:32 08/04/20 27920 Therapeutic Exercise (1:1) completed Nicole Maynard, FRED [address], [place], [address], [facility] 08/04/2024 10:37:51 07/31/20 02463 Therapeutic Exercise (1:1) completed DONTE LOPEZ DPT [address], [place], [address], [facility] 08/01/2024 10:27:32 07/31/20 28988: Low complexity PT Eval completed EVA RAMOST [address], [place], [address], [facility] 08/01/2024 10:28:04 Knee Surgery completed SULLY HERNANDEZ [facility] 03/28/2025 09:40:56 Shoulder Surgery completed SULLY HERNANDEZ [place] [facility] 03/28/2025 09:40:56 Orthopedic Surgery completed SULLY HERNANDEZ [place] [facility] 03/28/2025 09:40:56 Other completed SULLY HERNANDEZ JAVIER Lizbeth [facility] 03/28/2025 09:40:56 Imaging Results None recorded. Procedure Notes None recorded. Medical Equipment None Reported. Allergies Allergen ID Allergen Name Allergen Category Reaction Reaction Severity Criticality Documentation Date Start Date Code Code System Note Provider Name and Address Organization Details Recorded Time 400572 Tegaderm medicatio n Not available Not available Not available 03/29/2025 NICO martinez [facility] 5 09:11:23 97360 Iodinated contrast media (substanc e) medicatio n Not available Not available Not available 10/25/20232005 35895 2003 SNOMED SULLY [facility]inez [facility] 5 09:40:53 36492 codeine medicatio n Not available Not available Not available 10/25/20232014 2670 RxNorm Not Available [facility] 4 13:40:16 Medications Name Sig Start Date [...] completed Not Available Not Available Not Available naproxen 375 mg tablet TAKE 1 TABLET BY MOUTH TWICE DAILY WITH MEALS active Not Available Not Available No t Available metoprolol succinate ER 50 mg tablet,exte nded release 24 hr TAKE 1 TABLET BY MOUTH EVERY DAY active Not Available Not Available No t Available hydrocodone 5 mg-acetamin ophen 325 mg [...] Available Not Available alendronate 70 mg tablet TAKE 1 TABLET BY MOUTH ONCE WEEKLY 30 MINUTES BEFORE ANY FOOD OR DRINK active Not Available Not Available No t Available prednisone 5 mg tablet SEE TAPER [...] sone 1 %-0.05 % topical cream APPLY TO THE AFFECTED AREA TOPICALLY two (2) times a day NEEDED active Not Available Not Available No t Available pramipexole 0.125 mg tablet TAKE 3 TABLETS BY MOUTH AT BEDTIME active Not Available Not Available No t Available magnesium 500 mg (as magnesium oxide) tablet TAKE 1 TABLET BY MOUTH DAILY active Not Available Not Available No t Available oxybutynin chloride ER 5 mg tablet,exte nded release 24 hr TAKE 1 TABLET BY MOUTH ONCE DAILY active Not Available Not Available No t Available omeprazole 20 mg capsule,del ayed release TAKE ONE CAPSULE BY MOUTH ONCE IN THE MORNING AND 1 CAPSULE AT BEDTIME active Not Available Not Available [...] completed Not Available Not Available Not Available estradiol 0.01% (0.1 mg/gram) vaginal cream INSERT 1 gram OF cream VAGINALLY TWICE A WEEK active Not Available Not Available No t Available zolpidem 10 mg tablet 03/28 completed [...] Not Available Not Available No t Available bupropion HCl XL 150 mg 24 hr tablet, extended release TAKE 1 TABLET BY MOUTH ONCE DAILY active Not Available Not Available No [...] lactulose 10 gram/15 mL oral solution TAKE 20 ML BY MOUTH 1 TIME AT BEDTIME NEEDED FOR CONSTIPAT ION active Not Available Not [...] nded release TAKE 1 TABLET BY MOUTH ONCE DAILY active Not Available Not Available No [...] Updated DateTime 11/06/2024 162.56 cm 34.3 kg/m2 56551.47 g Nhi Perry [facility] 11/06/2024 14:20:42 Date Recorded Body height Body mass index (BMI) Body weight Provider Name and Address Organization Details Last Updated DateTime 03/20/2025 162.56 cm 34.3 kg/m2 63035.47 g Nhi Perry [facility] 03/20/2025 11:04:49 Date Recorded Body height Body mass index (BMI) Body weight Provider Name and Address Organization Details Last Updated DateTime 03/28/2025 162.56 cm 34.3 kg/m2 65793.47 g SULLYBella WESTHERNANDEZ [facility] 03/28/2025 09:41:04 Date Recorded Body height Body mass index (BMI) Body weight Provider Name and Address Organization Details Last Updated DateTime 03/29/2025 157.48 cm 31.3 kg/m2 46728.3 g NICO WILLAIMSON [facility] 03/29/2025 09:11:13 Date Recorded Body height Body mass index (BMI) Body weight Provider Name and Address Organization Details Last Updated DateTime 05/30/2025 157.48 cm 31.3 kg/m2 72182.3 g SULLY HERNANDEZ [facility] 05/30/2025 10:30:32 Social History Question Answer Notes LastModified by [employer] ion Details LastModified Time Tobacco Smoking Status Former Smoker SULLY HERNANDEZ [facility] 03/28/2025 09:40:55 When Did You Quit Smoking? 6-10yearssinc elastcigarett e [email or web address] Information not available 03/28/2025 Which Of Your Hands Is Dominant? Right [email or web address] Information not available 11/06/2024 What Is Your Relationship Status? [email or web address] Information not available 03/28/2025 How Many Years Have You Smoked Tobacco? 33 [email or web address] Information not available 03/28/2025 Sex: Unknown Functional Status Question Answer Note LastModified by [email or web address] ion Details LastModified Time How many times per week do you consume alcohol? Less than 1 time per week [email or web address] Information not available 03/28/2025 Do you use any illicit or recreational drugs? No [email or web address] Information not available 03/28/2025 Do you or have you ever used any other forms of tobacco or nicotine? Yes [email or web address] Information not available 03/28/2025 Do you or have you ever used e-cigarettes or vape? Never used electronic cigarettes [email or web address] Information not available 03/28/2025 Mental Status None recorded. Family History Nothing Reported. Medical History Condition Response Allergies/Hayfever N Coronary Artery Disease N Anxiety/Depression Y Breathing or lung disorders N Emphysema N Nerve Disorders Y Thyroid Problems N COPD N Pacemaker N Anemia N Kidney/Bladder Problems Y Vascular Disease N Heart Trouble N Heart Attack (PR) N Gastrointestinal Disease N Cholesterol N Diabetes N Autoimmune disease N Bleeding Disorder N Inflammatory Joint disease N Orthotics N Arthritis Y Seizures/Epilepsy N [...] ICD10 Code Diagnosis IMO Codes Diagnosis Note [id number] FAVIAN Orellana [address] [place] [address] 05/01/2024 13:21:17 05/22/2024 16:15:52 Sprain of left ankle 4674996680 6389197 S93.402D Derangemen t of left ankle joint 5953417800 6195332 M24.979 [id number] FAVIAN Orellana [address] [place] [address] 05/12/2024 08:09:56 06/02/2024 10:16:01 Pain of left ankle joint 6707562625 0805746 M25.875 [id number] FAVIAN Orellana [address] [place] [address] 06/01/2024 10:06:21 06/27/2024 09:33:18 Pain in left foot 2056443971 95878 M79.672 Sprain of ankle 12463146 S93.402A [id number] Teresa Johnston PA-C [facility] [address] [place] [address] 06/07/2024 09:50:43 06/30/2024 12:06:10 Sprain of ankle 19981844 S93.402A [id number] Derek Anglin MD [facility] [address] [place] [address] 07/05/2024 08:35:12 08/04/2024 09:01:21 Pain of left forearm 3072582155 68116 M79.500 2657975 Pain of elbow region 743 11377 M25.522 061171 Bursitis o f olecranon of left elbow 5369645694 19396 M70.22 4526453 Contusion of left forearm 5085882195 9586169 S50.12XD 041622 [id number] Amena Dunlap PA-C [facility] [address] [place] [address] 07/11/2024 08:58:23 07/26/2024 12:13:12 Sprain of left ankle 3004143880 3292016 S93.402A 425646910 [id number] [facility] [address] [place] [address] 07/31/2024 15:01:07 07/31/2024 16:05:20 Sprain of left ankle 5463069951 5210859 S93.402D [id number] Nicole garcia, T[facility] DRI[facility] [address] [place] [address] 08/04/2024 09:13:24 08/04/2024 10:10:33 Sprain of left ankle 6338554125 8528992 S93.402D [id number] Nicole garcia, T[facility] DRI[facility] [address] [place] [address] 08/08/2024 10:17:07 08/08/2024 11:28:09 Sprain of left ankle 6905110584 6812714 S93.402D [id number] Nicole Formhafsae r, TREE DRILLER ZUL[facility] - [facility] [address], [place] [address] 08/24/2024 13:16:14 08/24/2024 16:31:07 Sprain of left ankle 1447914020 5824525 S93.402D [id number] Nicole Formejeste r, TREE DRILLER ZUL[facility] - [facility] [address], [place] [address] 08/28/2024 14:58:40 08/28/2024 16:02:34 Sprain of left ankle 8873875655 4496838 S93.402D [id number] FAVIAN Orellana - [facility] [address] [place] [address] 09/05/2024 13:36:48 09/15/2024 10:35:47 Sprain of left ankle 3021995216 6559487 S93.492D 106119 [id number] FAVIAN Gallego [place] [address] [place] [address] 11/06/2024 13:53:42 11/20/2024 13:48:23 Pain of right shoulder joint 7977501275 3174067 M25.511 773336 [id number] FAVIAN Go [facility] [address] [place] [address] 03/20/2025 10:54:09 04/02/2025 10:46:21 Rotator cuff arthropathy of right shoulder 3348011778 1692761 M75.101 M12.811 [id number] [id number] MD ZULY Cagle - [facility] [address] [place] [address] 03/28/2025 09:33:13 04/02/2025 15:32:26 Pain of bilateral hands 3246657690 2601554 M79.641 M79.642 43137041 Bilateral carpal tunnel syndrome 5142072427 2774653 G56.03 100166 Arthritis 2403639 M19.90 237786 [id number] FAVIAN Rodriguez - [place] [address] [place] [address] 03/29/2025 08:21:27 04/05/2025 08:31:08 Pain of hip region 53088632 M25.552 369829 Closed fra cture of hip 518079899 S72.002A 9715370 [id number] MD ZULY [place] [address] [address] 05/30/2025 09:48:34 05/30/2025 11:35:06 Bilateral carpal tunnel syndrome 3688445102 3285223 G56.03 690867 Health Concerns Section Related Observation LastModified by Organization Detai ls LastModified Time None Recorded Concern Status LastModified by Organization Details LastModified Time None Recorded Advance Directives Directive None Recorded Payers Insurance Date Sequence Insurance Name Policy Number Policy Womack Covered Member ID Womack Member ID Guarantor Name 05/30/2025 SAFETY INSURANCE Halle Suárez 05/30/2025 1 [place] [employer] Edu Suárez [id number] Halle Suárez 05/30/2025 2 [place] [facility] PLAN Edu Suárez [id number] Halle Suárez Notes Date Note Type Note Provider Name and Address Organization Details Recorded Time 11/06/2024 text/html I am seeing the patient today under the supervision of Dr. Middleton who was available but did not see the patient. CLINICAL UPDATE:58-year-old vfopt-oexn-epqwzjxh female patient presents today for right shoulder [...] Right shoulder ordered, obtained and reviewed at [facility] today demonstrates cystic changes of the humeral [...] and agrees with the plan. Speech recognition indian nanny software was used to create portions of this document. An attempt at proofreading has been made to minimize errors. Please call for corrections. Carolina Bowman PA-C [address], [place], [address], [facility] 11/06/2024 16:23:52 03/20/2025 text/html I [...] for MRI review, sooner if symptoms dictate. [facility] speech recognition indian nanny software was used to create portions of this document. An attempt at proofreading has been made to minimize errors. Please call for corrections. Ranjit Belle PA-C [address] [place] [address] [address], [place], [address], [facility] 03/20/2025 12:09:50 03/28/2025 text/html ROS as noted [...] X-rays ordered, obtained, and reviewed today at [facility]: PA, lateral, oblique views [...] recommended the patient be evaluated by a asphalt tamping machine operator to rule out the presence of inflammatory arthropathy. Her rapid progression in terms of swelling and pain would be consistent with that diagnosis. She will follow-up as directed. Derek Anglin MD [address], [place], [address], [facility] 03/28/2025 13:08:05 03/29/2025 text/html I am seeing [...] visit note. This note was generated with [facility] speech recognition indian nanny dictation software. Please excuse any errors that may have been overlooked during review of this note. Sometimes, these errors may affect the content or meaning of a given sentence. Please call for corrections. Miracle Vines PA-C [address], [place], [address], [facility] 03/29/2025 09:42:28 05/30/2025 text/html ROS as noted in the HPI Diagnosis: Possible bilateral recurrent carpal tunnel syndrome The patient returns at her request. Since her last visit she underwent an EMG/NCS of her bilateral upper extremities. She reports that she was eval by asphalt tamping machine operator who recommended a neurologist. Past family, medical, social history and review of systems has been reviewed, updated and is located in the patient s chart. Examination: Healthy appearing patient in no apparent distress. Alert and oriented. She has symmetric range of motion of her bilateral wrist and digits. Provocative testing of wrist and digits reveal no instability. No atrophy in either upper extremity. Brisk capillary refill in all digits I reviewed an EMG/NCS of her bilateral upper extremities. The findings were consistent with mild bilateral carpal tunnel syndrome. Plan: The patient and I discussed her situation at length. It is unclear if her EMG findings reflect recurrent carpal tunnel syndrome or residual carpal tunnel syndrome after her previous treatment. I recommended corticosteroid injections into both carpal tunnels which I hope would be both diagnostic and therapeutic. She tolerated the injections well. She will follow-up at her discretion. Derek Anglin MD [address], [place], [address], [facility] 05/30/2025 11:35:03 OBGyn Episode No OBEpisode recorded.
--- OUTSIDE RECORDS SUMMARY | 2025-06-05 12:29 | XMS_ITS | Encounter Summary ---
Author Organization [facility] Address [address] [place] [address] [place] [address] Phone Care Team Providers Care Marketing Sales Representative Name Role Phone Jo-Ann Cho MD Primary Care Provider [phone]- [phone] Tito Alvarado MD Primary Care Provider Pcp, Unknown Primary Care Provider Johann Schroeder MD Primary Care Provider +1- [phone] Encounter Details Date Type Department Care Team (Late st Contact Info) Description 04/26/2018 Procedure Pass [facility] [address] [place] [phone] Social History Tobacco Use Types Packs/Day [...] Info) Description 06/21/2025 3:45 PM EDT Telemedicine [facility] [address] [place] [address], 4th Floor, [address] [place] [address] Johann Francis MD [address] [place] [address] [address] [place] [address] [email or web address] documented as of this encounter Visit Diagnoses Not on filedocumented in this encounter Additional Health Concerns Infection Onset Date Last Indicated Resolved Time COVID-19 12/14/2021 12/14/2021 01/04/2022 1:23 AM EDT documented as of this encounter Care Teams Marketing Sales Representative Relationship Specialty Start Date End Date Jo-Ann Cho MD [address] [place] [phone] PCP - General Internal Medicine 03/30/18 07/29/21 Tito Alvarado MD [address] [place] [address] PCP - General Internal Medicine 07/30/21 12/15/22 Pcp, Unknown PCP - General 12/16/22 01/28/23 Johann Trujillo MD [address] [place] [id number] PCP - General Internal Medicine 01/29/23 documented as of this encounter Additional Source Comments The information contained in this document represents components of the legal health record. It is not the complete legal health record.[facility]
--- OUTSIDE RECORDS SUMMARY | 2025-06-05 12:29 | XMS_ITS | Encounter Summary ---
Author Organization [facility] Address [address] [place] [address] [place] [address] Phone Care Team Providers Care Nut Cracker Name Role Phone Tito Alvarado MD Primary Care Provider Pcp, Unknown Primary Care Provider Johann Schroeder MD Primary Care Provider [phone]- [phone] Encounter Details Date Type Department Care Team (Late Contact Info) Description 02/11/2022 Procedure Pass [facility] [address] [place] [phone] Social History Tobacco Use Types Packs/Day Years [...] Department Care Team (Late Contact Info) Description 06/21/2025 3:45 PM EDT Telemedicine [facility] [address] [place] [address], 4th Floor, [address] [place] [address] Johann Francis MD [address] [place] [address] [address] [place] [address] [email or web address] [email or web address] documented as of this encounter Visit Diagnoses Not on filedocumented in this encounter Care Teams Nut Cracker Relationship Specialty Start Date End Date Tito Alvarado MD PCP - General Internal Medicine 07/30/21 12/15/22 Pcp, Unknown PCP - General 12/16/22 01/28/23 Johann Trujillo MD [address] [place] [address] PCP - General Internal Medicine 01/29/23 documented as of this encounter Additional Source Comments The information contained in this document represents components of the legal health record. It is not the complete legal health record.[facility]
--- OUTSIDE RECORDS SUMMARY | 2025-06-05 12:29 | XMS_ITS | Encounter Summary ---
Author Organization [facility] Address [address] [place] [address] Phone Care Team Providers Care Systems Specialist Name Role Phone Johann Trujillo MD Primary Care Provider [phone]- [phone] Encounter Details Date Type Department Care Team (Late st Contact Info) Description 04/27/2023 Procedure Pass [facility] [address] [place] [phone] Social History Tobacco Use Types Packs/Day Years [...] Info) Description 06/21/2025 3:45 PM EDT Telemedicine [facility] [address] [place] [address], 4th Floor, [address] [place] [address] Johann Francis MD [address] [place] [address] [address] [place] [address] [email or web address] documented as of this encounter Visit Diagnoses Not on filedocumented in this encounter Care Teams Systems Specialist Relationship Specialty Start Date End Date Johann Trujillo MD [address] [place] [phone] PCP - General Internal Medicine 01/29/23 documented as of this encounter Additional Source Comments The information contained in this document represents components of the legal health record. It is not the complete legal health record.[facility]
--- OUTSIDE RECORDS SUMMARY | 2025-06-05 12:29 | XMS_ITS | Encounter Summary ---
Author Organization [facility] Address [address] [place] [address] [place] [address] Phone Care Team Providers Care Yarn Preparation Supervisor Name Role Phone Jo-Ann Cho MD Primary Care Provider +1- [phone] Tito Alvarado MD Primary Care Provider Pcp, Unknown Primary Care Provider Johann Schroeder MD Primary Care Provider +1- [phone] Encounter Details Date Type Department Care Team (Late st Contact Info) Description 04/06/2018 Prep for Surgery [facility] Surgery [address] [place] [address], 4th Floor, [address] [place] [address] Ann Parrish, [facility] [address] [place] [address] [email or web address] Social History Tobacco Use Types Packs/Day [...] Info) Description 06/21/2025 3:45 PM EDT Telemedicine [facility] and Re[facility]ive Surgery [address] [facility], 4th Floor, [address] [place] [address] Johann Francis MD [address] [place] [address] [email or web address] documented as of this encounter Visit Diagnoses Not on filedocumented in this encounter Additional Health Concerns Infection Onset Date Last Indicated Resolved Time COVID-19 12/14/2021 12/14/2021 01/04/2022 1:23 AM EDT documented as of this encounter Care Teams Yarn Preparation Supervisor Relationship Specialty Start Date End Date Jo-Ann Cho MD [address] [place] [address] PCP - General Internal Medicine 03/30/18 07/29/21 Tito Alvarado MD [address] [place] [address] PCP - General Internal Medicine 07/30/21 12/15/22 Pcp, Unknown PCP - General 12/16/22 01/28/23 Johann Trujillo MD [address] [place] [address] PCP - General Internal Medicine 01/29/23 documented as of this encounter Additional Source Comments The information contained in this document represents components of the legal health record. It is not the complete legal health record.[facility]
--- OUTSIDE RECORDS SUMMARY | 2025-06-05 12:29 | XMS_ITS | Clinical Summary ---
Author Organization [facility] Address [address] [place] [address] Phone Care Team Providers Care Ceramics Engineer Name Role Phone Johann Trujillo MD Primary Care Provider +1- [phone] Allergies Active Allergy Reactions Criticality Noted Date Comments Codeine Nausea and/or Vomiting 11/28/2014 Iodinated Contrast Media 11/28/2014 UNSPECIFIED Contrast Media - [place] warm and sick Adhesive Tape-Silicones Rash Low 12/19/2024 Medications solifenacin (VESICARE) 10 MG tablet Take 10 mg by mouth nightly at bedtime. Active ID-duloxetine DR ([id number]) 60 mg capsule nightly at bedtime. 07/02/2021 [...] 04/23/2022 Active ID-vitamin D3 or placebo (14) 53408 iu capsule Active hydrOXYzine (VISTARIL) 25 MG [...] Department Care Team Description 05/08/2025 Transcribe Orders [facility] [address] [place] [address] Kamilla Silverman PA Encounter for rehabilitation (Primary Dx) 04/05/2025 12:30 PM EDT Office Visit [facility] [place] [facility] [place] [place] [address] [place] [address], 4th Floor, [address] [place] [address] Johann Francis MD Bilateral occipital neuralgia (Primary [...] Info) Description 06/21/2025 3:45 PM EDT Telemedicine [facility] [address] [place] [address], 4th Floor, [address] [place] [address] Johann Francis MD [address] [place] [address] [email or web address] [email or web address] Health Maintenance Due Date Last Done [...] - PCV) 12/16/2017 INFLUENZA VACCINE (#1) 2025 4, 06/02/2022, 07/13/2020, Additional history exists COVID-19 VACCINE ( season) 2025 09/23/2022, 03/27/2022, 03/27/2022, Additional history exists Adult Td,Tdap Booster 06/05/2028 06/05/2018 RSV VACCINE (1 - 1-dose 75+ series) 12/16/2042 ZOSTER VACCINES Completed 11/20/2018, 09/17/2018 HEPATITIS A [...] this topic Medical Devices Implanted Type Area Preschool Head Teacher Device Identifier Shelf Expiration Date Model / Serial / Lot Irving-09/27/2022 Implanted:2022 (Quantity not on file) Riving Insurance [place]IC[place] [place], [place] [address]HEALTH MEDICARE PART A & B [address] [place], [place] [address]HE[place] MEDICARE PART [place] B Member Subscriber Plan / Payer (Ef fective 2025-Present) Name:Edu Suárez Ellen Member ID:[id number] Relation to Subscriber:Self Name:Edu Suárez Ellen Subscriber ID:[id number] Payer ID:[id number] Group ID:Not on file Type:Medicare Address: [facility] [address] [phone] Care Teams Ceramics Engineer Relationship Specialty Start Date End Date Johann Trujillo MD [address] [place] [address] PCP - General Internal Medicine 01/29/23 Additional Source Comments The information contained in this document represents components of the legal health record. It is not the complete legal health record.[facility]
== END ==
LOC: HO.CARD 10:35
PROVIDERS: Visit Provider Psychiatry & Neurology Neurology
DX: R55 Syncope and collapse (principal)
CPT/HCPCS: 93270

== ENCOUNTER → 2025-06-05 10:38 | Outpatient (BNV) | payer MEDICARE, MEDICAID, SELFPAY | PROVIDERS: Visit Provider Internal Medicine | DX: I49.49 Other premature depolarization (principal); I49.3 Ventricular premature depolarization | CPT/HCPCS: 93272 ==

== ENCOUNTER 2025-08-08 09:59 | Day surgery (SDC) | payer MEDICARE, MEDICAID, SELFPAY ==
--- OUTSIDE RECORDS SUMMARY | 2025-03-22 15:21 | XMS_ITS | Clinical Summary ---
Author Organization [facility] Address [address] [place] [address] Phone Care Team Providers Care Hot Plate Plywood Press Offbearer Name Role Phone Johann Trujillo MD Primary Care Provider [phone] Allergies Active Allergy Reactions Criticality Noted Date Comments Codeine Nausea and/or Vomiting 11/28/2014 Iodinated Contrast Media 11/28/2014 UNSPECIFIED Contrast Media - [place] warm and sick Adhesive Tape-Silicones Rash Low 12/19/2024 Medications solifenacin (VESICARE) 10 MG tablet Take 10 mg by mouth nightly at bedtime. Active ID-duloxetine DR ([id number]) 60 mg capsule nightly at bedtime. 07/02/2021 [...] 04/23/2022 Active ID-vitamin D3 or placebo (14) 63236 iu capsule Active hydrOXYzine (VISTARIL) 25 MG [...] Team Description 01/16/2025 3:30 PM EDT Telemedicine [facility] [address], 4th [address], [address] [place] [address] Johann Francis MD Dunn, Elizabeth Yates, CNP Frequent falls (Primary Dx); Bilateral occipital neuralgia 01/11/2025 Telephone [facility] [address], [address], [address] [place] [address] Ann Parrish CNP 01/09/2025 7:45 AM EDT - 01/09/2025 10:11 AM EDT Surgery [facility] [address] [place] [phone] Johann Francis MD right occipital nummular headache decompression. 01/09/2025 7:13 AM EDT Anesthesia Event [facility] [address] [place] [phone] Praveen Zacarias MD Johnson, Brielle Taryn, RN 01/09/2025 5:48 AM EDT - 01/09/2025 12:40 PM EDT Hospital Encounter [facility] [address] [place] [phone] Johann Francis MD Discharge Disposition: Home or Self Care 01/09/2025 Procedure Pass [facility] [address] [place] [phone] from Last 3 Months Social History Tobacco [...] Description 04/05/2025 12:30 PM EDT Office Visit [facility] [address] [place] [address], 4th Floor, [address] [place] [address] Johann Francis MD [address] [place] [phone] [email or web address] Health Maintenance Due Date Last Done [...] this topic Medical Devices Implanted Type Area Deputy Director Device Identifier Shelf Expiration Date Model / Serial / Lot Irving-09/27/2022 Implanted:2022 (Quantity not on file) Irving Procedures Procedure Name Priority Date/Time Associated Diagnosis Comments AIRWAY PLACEMENT Routine 01/09/2025 8:11 AM EDT CO REVISION OF CRANIAL NERVE 01/09/2025 7:59 AM EDT Neuralgia Nummular headache from Last 3 Months Results * ANES ETT DOUBLE LUMEN - AIRWAY LDA (01/09/2025 8:11 AM EDT) Narrative Raiza Griffith, BRYSON - 01/09/2025 8:11 AM EDT Raiza Griffith CRNA 01/09/2025 8:12 AM Airway Placement Procedure Note: Patient was not difficult to intubate. Procedure performed by: fellow/resident/METAL FABRICATOR Anesthesiologist: Praveen Zacarias MD Fellow/Resident/METAL FABRICATOR: Raiza Griffith CRNA Airway procedure initiated at:01/09/2025 [...] of dental injury? no Complications observed? no Praveen Zacarias MD CO ANESTHESIA Final Result from Last [address] [place] [address] [address] [address] [place] [address] [place] [address] PCC Care Teams Hot Plate Plywood Press Offbearer Relationship Specialty Start Date End Date Johann Trujillo MD [address] [place] [address] PCP - General Internal Medicine 01/29/23 Additional Source Comments The information contained in this document represents components of the legal health record. It is not the complete legal health record.[facility]
--- OUTSIDE RECORDS SUMMARY | 2025-03-22 15:21 | XMS_ITS | Clinical Summary ---
Author Organization [facility] Address [address] [place] [address] Phone Care Team Providers Care Yarn Tester Name Role Phone Johann Trujillo MD Primary Care Provider [phone] Allergies Active Allergy Reactions Criticality Noted Date [...] METABOLIC PANEL STAT 09/05/2024 4:29 PM EST [facility] SCREENING DIGITAL Routine 01/23/2022 4:44 PM EDT Encounter for screening mammogram for malignant neoplasm of breast [facility] DEXA AXIAL SKELETON Routine 10/30/2019 8:08 AM EDT Encounter for screening for osteoporosis from Last 3 Months or Most Recently Relevant to Health Maintenance Results * Comprehensive metabolic panel (09/05/2024 4:29 PM EST) Sodium 140 133 - 145 mmol/L LAB CHEMISTRY METHOD 09/05/2024 5:21 PM [facility] Potassium 4.5 3.5 - 5.5 mmol/L LAB CHEMISTRY METHOD 09/05/2024 5:21 PM [facility] Chloride 110 96 - 110 mmol/L LAB CHEMISTRY METHOD 09/05/2024 5:21 PM [facility] CO2 26 21 - 32 mmol/L LAB CHEMISTRY METHOD 09/05/2024 5:21 PM [facility] Anion Gap 4 3 - 11 LAB CHEMISTRY METHOD 09/05/2024 5:21 PM [facility] Glucose 95 70 - 100 mg/dL LAB CHEMISTRY METHOD 09/05/2024 5:21 PM [facility] BUN 16 5 - 25 mg/dL LAB CHEMISTRY METHOD 09/05/2024 5:21 PM [facility] Creatinine 0.98 0.50 - 1.10 mg/dL LAB CHEMISTRY METHOD 09/05/2024 5:21 PM [facility] eGFR 68 >=60 mL/min/1. 73m2 LAB CHEMISTRY METHOD 09/05/2024 5:21 PM [facility] Comment:Calculation based on the Chronic Kidney Disease Epidemiology Collaboration (CKD-EPI) equation refit without adjustment for race. BUN/Creatinine Ratio 16.3 LAB CHEMISTRY METHOD 09/05/2024 5:21 PM [facility] Calcium 9.0 8.5 - 10.5 mg/dL LAB CHEMISTRY METHOD 09/05/2024 5:21 PM [facility] AST (SGOT) 22 10 - 42 unit/L LAB CHEMISTRY METHOD 09/05/2024 5:21 PM [facility] ALT (SGPT) 27 10 - 60 unit/L LAB CHEMISTRY METHOD 09/05/2024 5:21 PM [facility] Alkaline Phosphatase 50 42 - 121 unit/L LAB CHEMISTRY METHOD 09/05/2024 5:21 PM [facility] Total Protein 6.8 6.0 - 8.0 g/dL LAB CHEMISTRY METHOD 09/05/2024 5:21 PM [facility] Albumin 3.8 3.2 - 5.0 g/dL LAB CHEMISTRY METHOD 09/05/2024 5:21 PM [facility] Total Bilirubin 0.3 0.0 - 1.4 mg/dL LAB CHEMISTRY METHOD 09/05/2024 5:21 PM [facility] Blood Venous blood specimen / Unknown Venipuncture / Unknown 09/05/2024 4:29 PM EST 09/05/2024 4:51 PM EST us Harris Fay MD LAB BLOOD ORDERABLES Final Resu lt [facility] [address] [place] [address], * TERELL SCREENING DIGITAL (01/23/2022 4:44 PM EDT) Anatomical Region Laterality Modality Mammography 01/23/2022 11:1 5 AM EDT Narrative 01/23/2022 4:44 PM EDT [facility] Diagnostic Imaging Department [address] [place] [address] Patient: EDU SUÁREZ Ellen /Age/Sex: 1965 - 56 - F Unit#: [id number] Location/Status: SPDIMAM/REG CLI Mnemonic/[place]ing [place] [facility] Ordering Physician: KATHERIN ALVARADO MD Terell Screening Digital - 01/23/22 - 1154 History: Bilateral breast cancer screening. Technique: Digital mammography. Conventional CC and MLO projections with tomosynthesis MLO views and computer aided detection. Comparison: [facility] 01/27/2021 dating back to 02/10/2016. Findings: Breast tissue consists of fatty and fibroglandular elements (category b density) bilaterally (as calculated by Zeterapara software). There is no suspicious group of microcalcifications, mass, architectural distortion or suspicious change in breast tissue density. Impression: No evidence of malignancy. BIRADS category 1; negative study, 3341F 30612, 67222 Note: Patient information entered into a reminder system with a target due date for the next mammogram: CPT II 7025F Dictating Physician: CANDELARIO ENRIQUEZ MD Electronically Signed by: CANDELARIO ENRIQUEZ MD Dic Date/Time: 01/23/22 6789 Sign date/Time: 01/23/22 9973 Procedure Note Candelario Enriquez MD - 08/12/2022 [facility] Diagnostic Imaging Department [address] [place] [address] Patient: EDU SUÁREZ Ellen /Age/Sex: 1965 - 56 - F Unit#: [id number] Location/Status: SPDIMAM/REG CLI Mnemonic/Ordering Site[place] [facility] Ordering Physician: KATHERIN ALVARADO MD Terell Screening Digital - 01/23/22 - 1154 History: Bilateral breast cancer screening. Technique: Digital mammography. Conventional CC and MLO projectionswith tomosynthesis MLO views and computer aided detection. Comparison: [facility] 01/27/2021 dating back to 02/10/2016. Findings: Breast tissue consists of fatty and fibroglandular elements (category b density) bilaterally (as calculated by i[employer]ve[employer]). There is no suspicious group of microcalcifications, mass, architectural distortion or suspicious change in breast tissue density. Impression: No evidence of malignancy. BIRADS category 1; negative study, 3341F 86380, 89513 Note: Patient information entered into a reminder system with a target duedate for the next mammogram: CPT II 7025F Dictating Physician: CANDELARIO ENRIQUEZ MD Electronically Signed by: CANDELARIO ENRIQUEZ MD Dic Date/Time: 01/23/22 1640 Sign date/Time: 01/23/22 7762 us Katherin Alvarado MD IMG BI PROCEDURES Final Resu lt * TERELL DEXA AXIAL SKELETON (10/30/2019 8:08 AM EDT) Anatomical Region Laterality Modality Mammography 10/30/2019 7:36 AM EDT Narrative 10/30/2019 8:08 AM EDT [facility] Diagnostic Imaging Department [address] [place] [address] Patient: EDU SUÁREZ Ellen /Age/Sex: 1965 - 53 - F Unit#: [id number] Location/Status: [facility] CLI Mnemonic[facility] Ordering Physician: GERARDO LUX MD [facility] Dexa Axial Skeleton - 10/30/19758 HISTORY: The [...] probability of hip fracture of 1.2%. Code 45707 Dictating Physician: GABRIELLA PIERRE MD Electronically Signed by: GABRIELLA PIERRE MD Dic Date/Time: 10/30/19805 Sign date/Time: 10/30/19 08 Procedure Note Gabriella Pierre - 08/11/2022 [facility] Diagnostic Imaging Department [address] [place] [address] Patient: EDU SUÁREZ Ellen CostaB./Age/Sex: 1965 - 53 - F Unit#: [id number] Location/Status: [facility] Mnemonic/Ordering Site: [facility] Ordering Physician: GERARDO LUX MD [facility] Dexa Axial Skeleton - 10/30/19 4191 HISTORY: The patient is a 53-year-old postmenopausal [...] density of the femurs bilaterally is 0.796 gm/vr0wkvbt is 79% of that of young normals [...] probability of hip fracture of 1.2%. Code 08328 Dictating Physician: GABRIELLA PIERRE MD Electronically Signed by: GABRIELLA PIERRE MD Dic Date/Time: 10/30/19 0806 Sign date/Time: 10/30/19 0808 Gerardo Lux MD IMG BI PROCEDURES Final Result from Last 3 Months or Most Recently Relevant to Health Maintenance Insurance [place] - [place] Care Teams Yarn Tester Relationship Specialty Start Date End Date Johann Trujillo MD [address] [place] [address] PCP - General Internal Medicine 09/06/24
[2025-08-06 07:51] VITALS: BMI 30.3
--- NOTE | 2025-08-06 09:10 | HO.ANESPROP2 ---
HPI - Anesthesia Eval Consult details Narrative: 59 yr old female for bilateral Cluneal Peripheral Nerve Stimulator REVISION s/p above procedure with TIVA 01/2024 Mild aortic stenosis on echo 07/2024: The mean gradient is 22 mmHg. The aortic valve area is 1.83 cm2. +marijuana use (medical) PMFSH Active Problems Active Problems: All Active Problems (Updated 03/14/25 @ 16:43 by Grecia Santiago CNP) Syncope (Acute) Carotid artery stenosis (Acute) Fibromyalgia (Acute) Cervical disc disease (Acute) MCI (mild cognitive impairment) (Acute) Migraine equivalent syndrome (Acute) Other mixed anxiety disorders (Acute) MDD (major depressive disorder), recurrent episode (Acute) Major depressive disorder, recurrent (Acute) Non-rheumatic aortic stenosis (Acute) Abdominal wall pain (Acute) Hidradenitis (Acute) Carbuncle (Acute) Pelvic pain (Acute) Occipital neuralgia (Acute) Lupus (Acute) Cluneal neuropathy (Acute) Degeneration of cervical intervertebral disc (Acute) Otalgia of right ear (Acute) Lumbar spondylosis (Acute) Sacroiliac joint dysfunction (Acute) Lumbar disc disease (Acute) Past Medical History Medical History (Updated 03/14/25 @ 16:43 by Grecia Santiago CNP) Carotid artery stenosis MCI (mild cognitive impairment) Cervical spondylosis Migraine Hx of pilonidal cyst Degenerative disc disease, cervical Tinnitus of left ear Adenomyosis of uterus Bilateral breast cysts Sleep apnea Short-term memory loss Rheumatoid arthritis Osteoporosis SI (sacroiliac) joint dysfunction Hidradenitis suppurativa Occipital neuralgia Fibromyalgia HTN (hypertension) Lumbar disc disease Depression Overactive bladder Restless leg syndrome Peripheral neuropathy Family History Family History Mother No problems noted. Father No problems noted. Family history of problems with anesthesia: No Surgical History Surgical History History of gynecologic surgery History of surgery Hx of shoulder surgery H/O laminectomy History of carpal tunnel release of both wrists Hx of elbow surgery Hx of hysterectomy Hx of left knee surgery Hx of arthroscopy of left knee Hx of abdominal surgery H/O LEEP History of intestinal surgery Hx of appendectomy History of Problems with Anesthesia: No Social History Social History Household Members: None Housing: Unknown / Unable to assess Do you presently have visiting nurse or other home services: No Alcohol intake: former Patient Tobacco Use Status: Former Tobacco user Tobacco use type: Cigarette e-Cigarette/Vaping Use: Never Used Second Hand Smoke Exposure: Yes Substance Use Type: Marijuana service: No Sexual orientation: Straight/Heterosexual Meds Allergies Allergy/AdvReac Type Severity Reaction Status Date / Time codeine AdvReac Intermediate Vomiting Verified 03/14/25 16:13 silver (From Tegaderm AG AdvReac red itchy Verified 03/14/25 16:13 Mesh) rash Home Medications ?Medication ?Instructions ?Recorded ?Confirmed ?Last Taken ?Type calcium carbonate 600 mg PO DAILY 07/26/23 08/06/25 02/06/25 History cholecalciferol (vitamin D3) 25 25 mcg PO DAILY 07/26/23 08/06/25 02/06/25 History mcg (1,000 unit) capsule magnesium 250 mg tablet 500 mg PO DAILY 07/26/23 08/06/25 Unknown History metoprolol succinate 50 mg 50 mg PO DAILY 10/15/23 08/06/25 02/06/25 History tablet,extended release 24 hr alendronate 70 mg tablet 70 mg PO SA@0900 02/29/24 08/06/25 02/03/25 History omeprazole 20 mg capsule,delayed 20 mg PO BID@0630,1630 02/29/24 08/06/25 02/06/25 History release topiramate 50 mg tablet 100 mg PO BID 06/09/24 08/06/25 Unknown History clotrimazole-betamethasone 1 1 appl topical BID PRN Rash 01/22/25 08/06/25 Unknown History %-0.05 % topical cream donepezil 10 mg tablet 10 mg PO BEDTIME 02/06/25 08/06/25 Unknown History gabapentin 800 mg tablet 800 mg PO TID 03/14/25 08/06/25 Unknown History Exam Height,Weight and Vital Signs: Height 5 ft 3 in Weight 77.564 kg Narrative Narrative: 30 Day Cardiac Event Monitor 05/2025 Total procedure length 30 days. Wear time 28 days. Underlying rhythm is sinus with an average rate of 59/Min. Rare supraventricular ectopy. Short runs noted. Rare ventricular ectopy. No significant pauses or high-grade AV blocks. Patient's symptoms including anxiety, chest pain, shortness of breath, heart pounding, lightheadedness correlate with sinus rhythm EKG 01/2025 Vent. Rate : 45 BPM Atrial Rate : 45 BPM P-R Int : 176 ms QRS Dur : 102 ms QT Int : 462 ms P-R-T Axes : 26 11 71 degrees QTcB Int : 399 ms Sinus bradycardia Nonspecific ST and T wave abnormality Abnormal ECG When compared with ECG of 10-Jan-2025 11:50, Inverted T waves have replaced nonspecific T wave abnormality in Anterior leads ECHO 07/2024 Conclusions: - The left ventricular systolic function is normal. The calculated ejection fraction is 60% by biplane method. - There is moderate calcification of the aortic valve. There is mild aortic valve stenosis. There is mild to moderate aortic valve regurgitation. Probably bicuspid aortic valve Assessment and Plan Final Anesthetic Review Family History of Problems with Anesthesia: No History of Problems with Anesthesia: No
--- NOTE | ~2025-08-08 | FL_ITS ---
EXAMINATION: FL GUIDANCE ONLY HISTORY: CLUNEAL NERVE STIM COMPARISON: None available. TECHNIQUE: Fluoroscopy time: 40.3 seconds. Cumulative Dose: 11.290 mGy. DAP: 4.9110 Gycm2 Images: 3. FINDINGS: Fluoroscopic spot films of the sacrum demonstrate electrodes in place. FL/FL guidance in OR IMPRESSION: Fluoroscopy during procedure. Please see procedure report for additional information. Electronically signed by: Isra Gutierrez MD 08/08/2025 03:08 PM DC
[2025-08-08 10:25] VITALS: BMI 26.6
[2025-08-08 10:47] VITALS: BP 107/39; PULSE 57; RESP 15; TEMP 36.3; O2SAT 98
[2025-08-08] MEDS: Lactated Ringers 1,000 ML 100 ML IVCONT (10:56)
--- NOTE | 2025-08-08 12:05 | MHC.SHP ---
Pre-Procedural Eval Section A - 24 Hr Update-Section A only Date of Service: 08/08/25 The patient is an INPATIENT: No Changes since office visit: Yes Patient answered all questions The patient has been examined within 24 hours of the surgical procedure. The History & Physical has been completed within 30 days and I have reviewed it.: No Section B - Complete if H&P > 30 days Chief Complaint: Other specified mononeuropathies Relevant Family History (Specify if Yes): No Relevant Social History: None Present Medications: see Short Stay Collaborative assessment Medical History: No relevant PMH History of Previous Operations: No relevant previous surgery Allergies: Allergies Allergy/AdvReac Type Severity Reaction Status Date / Time codeine AdvReac Intermediate Vomiting Verified 08/08/25 10:27 silver (From Tegaderm AG AdvReac red itchy Verified 08/08/25 10:27 Mesh) rash Review of Systems Sugical H&P ROS: Negative: Constitution, Cardiovascular and Respiratory Exam Surgical H&P Exam: Normal: HEENT, Normal: Heart and Normal: Lungs Plan Diagnosis/Plan: Unchanged I have reviewed the history and physical and performed a pertinent physical examination on my patient. No changes have occurred unless specified. Time Spent With Patient Time: Total time managing care of this patient today ____ minutes.
[2025-08-08 12:11] LABS: MRSA Nasal PCR NEGATIVE (Negative); SA Nasal PCR NEGATIVE (Negative)
--- NOTE | 2025-08-08 14:24 | PM.OP ---
Brief Operative Note Date of Service: 08/08/25 Pre-op diagnosis: Cluneal neuropathy Post-op diagnosis: same Procedure: Bilateral middle cluneal nerves stimulator revision Implants: [employer]onix PNS leads and antenna Surgeon: Gil Cortes MD Anesthesia: MAC Was an Button Sewing Machine Operator used for this Procedure?: No Estimated blood loss (mL): 5 Pathology: none sent Condition: stable Disposition: PACU
[2025-08-08 14:25] VITALS: BP 122/47; PULSE 66; RESP 12; TEMP 36.3; O2SAT 97
--- NOTE | 2025-08-08 14:27 | P.OP_ITS ---
Operative Note Operative Note Date of Service: 08/08/25 Narrative: Preoperative diagnosis: Cluneal neuropathy, bilateral Postoperative diagnosis: Same Peripheral Nerve Stimulator Leads Revision for Middle Cluneal Nerves, Bilateral After obtaining written consent, pre-procedure blood pressure and heart rate were stable and recorded in the nursing record. A peripheral IV was started. Antibiotics, cefazolin 2 g, were given prior to the start of the procedure. The patient was positioned in prone position and sedated by the petroleum geologist. The thoracolumbar area was widely prepped with chloraprep and draped in sterile fashion. Using fluoroscopy, the existing incisions were confirmed to be overlying the leads on each side. The skin at the previous incision sites was anesthetized with a mixture of 1% lidocaine and 0.5% bupivacaine with epinephrine 1:200,000.?The skin entry sites were incised horizontally using a 15 blade and dissected approximately 1 cm across and 1 cm deep using a combination of electrocautery and blunt dissection. The existing leads were liberated from the underlying tissue and gently pulled until they were removed from their sacral placement. Attention was then diverted to the midline pocket site in the thoracic spine area. Once again the existing incision was infiltrated with the aforementioned local anesthetic mixture. The skin was incised vertically using a 15 blade and dissected approximately 1.5 cm deep and 5 cm in length. The coil was identified and liberated from the underlying tissue. The coil was cut to be freed from the remaining portion of the leads. The leads were then pulled out completely with all electrodes intact. Then, 2 14 gauge epimed needles were used as introducers and advanced subcutaneously along the length of the lumbar paraspinal muscles until contact was established with the sacrum on each side. The introducer was then rotated and walked off the edge of the sacrum overlying the middle cluneal nerves on each side. The 1x4 electrode array was passed through the introducer using a tenting approach at a shallow angle. Fluoroscopy was used to confirm appropriate lead position on each side in AP and lateral views. The rigid stylets were removed and the copper stylets were inserted. The needles were completely removed. The leads were tied down to the tissue at the insertion sites using 0 Tycron sutures. The leads were tunneled to the pocket site. A single knot was then placed on each lead to secure the copper stylet in place. The excess lead was coiled and tied with 0 silk ties. Both coils were then tied together using 0 silk ties as well. The coiled portion of the leads was then placed in the pocket. The pocket was then irrigated with vancomycin solution. The midline incision was closed with a running 2-0 Vicryl suture, followed by 3- 0 interrupted deep dermal sutures. The lead insertion incisions were closed with a 2-0 Vicryl deep dermal suture and 3-0 silk for skin. The incision sites were dressed with Dermabond, Steri-Strips and tegaderm dressings. The patient tolerated the procedure well. No complications were encountered. Following the procedure the patient's vital signs were stable. The patient was discharged home in good condition with post-procedural instructions. Time Out: Immediately prior to the procedure, the following was verbally confirmed that there is a signed consent form and that the correct patient, planned procedure, site and side are consistent with documentation and that necessary equipment and/or blood products are available prior to the start of the case. Complications: none EBL: 5 cc
[2025-08-08 14:40] VITALS: BP 129/59; PULSE 64; RESP 13; TEMP 36.3; O2SAT 98
--- NOTE | 2025-08-08 15:49 | PC.NURSE ---
PATIENT LEFT WITHOUT HER PRESCRIPTION MEDICATION. CALLED [facility] AND CONTACTS BUT ALL MAIL BOXES FULL.
== END 2025-08-08 15:27 | disposition home or self-care (01) ==
PROVIDERS: Registered Nurse Emergency; Visit Provider Internal Medicine
PROC: (CPT 64585; principal; 2025-08-08 11:30)
DX: G58.8 Other specified mononeuropathies (principal); G89.29 Other chronic pain; M53.3 Sacrococcygeal disorders, not elsewhere classified; G62.9 Polyneuropathy, unspecified; M50.30 Other cervical disc degeneration, unspecified cervical region; M54.9 Dorsalgia, unspecified; M51.86 Other intervertebral disc disorders, lumbar region; M06.9 Rheumatoid arthritis, unspecified; M81.0 Age-related osteoporosis without current pathological fracture; M79.7 Fibromyalgia; G25.81 Restless legs syndrome; I35.0 Nonrheumatic aortic (valve) stenosis; Z79.899 Other long term (current) drug therapy; Z88.5 Allergy status to narcotic agent; Z98.890 Other specified postprocedural states; Z87.891 Personal history of nicotine dependence
CPT/HCPCS: 64585 ×2; 87640; 87641; C1816; J0690; J2003; J2250; J2704; J3010; J3374

== ENCOUNTER → 2025-08-08 09:59 | Outpatient (BNV) | payer MEDICARE, MEDICAID, SELFPAY | PROVIDERS: Visit Provider Internal Medicine | DX: G58.8 Other specified mononeuropathies (principal) | CPT/HCPCS: 64585; 77002 ==

== ENCOUNTER 2025-08-15 10:08 | Outpatient (AMB) | payer MEDICARE, MEDICAID, SELFPAY ==
--- NOTE | 2025-08-15 10:09 | MHC.OFFVIS ---
Vital Signs 08/15/25 10:12 Height 5 ft 3 in Weight 159 lb BMI 28.2 BP 119/56 L Blood Pressure Location Lt brachial Position Sitting Respiration 16 Pulse 83 Pulse Source Pulse Oximeter Pulse Oximetry (%) 99 Oxygen Delivery Method Room Air Intake Visit Reasons: S/p B/l Cluneal Nerve PNS REVISION 08/08/25 Post Framer Required: No Allergies codeine Adverse Reaction (Intermediate, Verified 08/15/25 10:15) Vomiting silver (From Tegaderm AG Mesh) Adverse Reaction (Verified 08/15/25 10:15) red itchy rash Medication List - Last Reconciled 08/15/25 by Natalie Frazier LPN alendronate 70 mg PO SA@0900 bupropion HCl XL 300 mg PO DAILY 30 days calcium carbonate 600 mg PO DAILY cholecalciferol (vitamin D3) 25 mcg PO DAILY clotrimazole-betamethasone 1-0.05 % 1 appl topical BID PRN diazepam 5 mg PO TID PRN 7 days donepezil 10 mg PO BEDTIME duloxetine 60 mg PO BID 30 days gabapentin 800 mg PO TID lactulose 10 grams (15 mL) PO DAILY PRN 30 days lidocaine 4% (Lidocaine Pain Relief) See Protocol apply 1 patch to lower back and one to abdominal area daily as needed 30 days magnesium 500 mg PO DAILY metoprolol succinate ER 50 mg PO DAILY mirabegron ER 50 mg PO DAILY 30 days omeprazole 20 mg PO BID@0630,1630 pramipexole 0.375 mg (3 x 0.125 mg) PO BEDTIME 30 days topiramate 100 mg PO BID HPI HPI S/p B/l Cluneal Nerve PNS REVISION 08/08/25: Details: History of Present Illness The patient is a 59-year-old female presenting for a one-week postoperative follow-up after the placement of bilateral cluneal nerve stimulators. She reports that the top incision site has been very tender for the last couple of days, and the skin is sensitive, preventing her from leaning back against it, while the bottom two sites are not problematic. The stimulator device has not yet been turned on. The patient also reports a history of episodes of loss of consciousness, which has not worsened since her surgery but has continued, with four occurrences of passing out and rolling off the couch since the procedure. She has also passed out into her food on prior occasions. She experiences no warning signs before these episodes and does not know how long she is unconscious. She reports a post-event fogginess that could point to a postictal condition. Due to these events, she does not drive. Previous workup for these episodes has included a 30-day heart monitor and an EEG, both of which were negative and did not capture an event. She has an upcoming appointment with a neurologist on the . Her current medications include gabapentin and topiramate, which she has been on for years. Pain Description - Location: Surgical incision sites, with the top incision being more symptomatic than the bottom ones. - Quality: Reports the top incision site as very tender and the skin as very sensitive. - Exacerbating Factors: Inability to lean back against a pillow on the top incision. - Palliating Factors: Able to lean back against the bottom two incision sites without issue. Physical Exam - Skin: Examination of the surgical sites for the cluneal nerve stimulator reveals well-healing incisions without significant swelling or redness. The midline incision is noted to be sensitive to touch. Results - Tests and Diagnostics: Previous workup for episodes of loss of consciousness includes a 30-day heart monitor and an EEG, both of which were reported as negative as they did not capture an event. Pain Management: - Analgesia: The patient is S/P bilateral cluneal nerve stimulator placement; the device has not yet been programmed. - Adverse Effects: She reports that the top surgical incision has been very tender, and the skin is sensitive. - Activities of Daily Living: The patient does not drive due to recurrent episodes of loss of consciousness. - Affect: The patient expresses fear about driving and potentially harming herself or someone else. - Aberrant Drug Related Behaviors: No aberrant behaviors were discussed. [facility] Medical History (Updated 08/08/25 @ 10:39 by Yajaira Duarte RN) Hx of simple renal cyst Carotid artery stenosis MCI (mild cognitive impairment) Cervical spondylosis Migraine Hx of pilonidal cyst Degenerative disc disease, cervical Tinnitus of left ear Adenomyosis of uterus Bilateral breast cysts Sleep apnea Short-term memory loss Rheumatoid arthritis Osteoporosis SI (sacroiliac) joint dysfunction Hidradenitis suppurativa Occipital neuralgia Fibromyalgia HTN (hypertension) Lumbar disc disease Depression Overactive bladder Restless leg syndrome Peripheral neuropathy Surgical History (Updated 08/08/25 @ 10:36 by Yajaira Duarte, RN) History of surgery on arm History of gynecologic surgery History of surgery Hx of shoulder surgery H/O laminectomy History of carpal tunnel release of both wrists Hx of elbow surgery Hx of hysterectomy Hx of left knee surgery Hx of arthroscopy of left knee Hx of abdominal surgery H/O LEEP History of intestinal surgery Hx of appendectomy Family History Mother No problems noted. Father No problems noted. Social History Household Members: None Housing: Unknown / Unable to assess Do you presently have visiting nurse or other home services: No Alcohol intake: former Patient Tobacco Use Status: Former Tobacco user Tobacco use type: Cigarette e-Cigarette/Vaping Use: Never Used Second Hand Smoke Exposure: Yes Substance Use Type: Marijuana service: No Sexual orientation: Straight/Heterosexual Physical Exam Vital Signs: Last Vital Signs Pulse 83 08/15/25 10:12 Resp 16 08/15/25 10:12 BP 119/56 L 08/15/25 10:12 Pulse Ox 99 08/15/25 10:12 Oxygen Delivery Method Room Air 08/15/25 10:12 BMI result Body Mass Index 28.2 Assessment & Plan Assessment & Plan (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 1. Surgical Aftercare Following Placement Of Neurostimulator - The surgical incisions are healing well; the patient is cleared to shower. - She was advised to let the Steri-strips fall off naturally and that sutures will be removed at her next appointment. - She may apply lidocaine for skin sensitivity once the Steri-strips are off. - The patient will undergo programming of her cluneal nerve stimulator today with the device outside energy sales representatives. 2. Syncope And Collapse - The episodes of loss of consciousness are suspicious for a seizure disorder. - The patient will follow up with her neurologist on the . - It was recommended that she discuss further EEG testing with her neurologist to try and capture one of these episodes. - An alternative plan to discuss with her neurologist is a therapeutic trial of an anti-seizure medication, such as Keppra, to see if it prevents the episodes. - The patient is not currently driving. Discussion Notes I examined the patient's surgical incisions from her recent bilateral cluneal nerve stimulator placement and noted they are healing well, with some midline incisional sensitivity but no significant swelling or redness. I advised her that she is cleared to shower and to let the Steri-strips fall off on their own, with sutures to be removed at the next visit. We arranged for her to undergo programming of the device with the outside energy sales representatives today. We discussed her ongoing episodes of loss of consciousness. I explained that these events are suspicious for a seizure disorder, and that a diagnosis is difficult without capturing an episode on an EEG. I recommended she speak with her neurologist at her upcoming appointment about ambulatory EEG testing or a trial of a medication like Keppra. I strongly advised her not to drive for her safety and the safety of others. Patient Instructions - Your surgical incisions are healing well, and you may shower. - Let the paper tapes (Steri-strips) over your incisions fall off on their own. - We will remove your sutures at your next appointment. - Once the tapes have fallen off, you can apply lidocaine to the area for skin sensitivity. - You will meet with the device outside energy sales representatives today to have your stimulator programmed. - Regarding your episodes of passing out, please follow up with your neurologist on the . - Discuss with your neurologist about either wearing a home monitor to record your brain activity (ambulatory EEG) or trying a new medication called Keppra to see if it prevents the spells. - For your safety and the safety of others, you must not drive until this issue is resolved. Coding Level of Care Code Est Pt Level 4 (29677) Diagnoses Cluneal neuropathy G58.8
[2025-08-15 10:12] VITALS: BP 119/56; PULSE 83; RESP 16; O2SAT 99; BMI 28.2
--- OUTSIDE RECORDS SUMMARY | 2025-08-15 10:16 | XMS_ITS | Continuity of Care Document ---
Author Organization [facility], ZULY Donavan 1st Floor Address [address] [place] [address] Care Team Providers Care Imagery Analyst Name Role Phone VickieharpalMeghan Primary Care Provider Assessment No assessment recorded. Plan of Treatment Reminders Order Date Submit Date Provider Name Organization Details Last Modified By Last Modified Time Details Appointments RECHEC K 15 2025 10:30A M Derek Anglin MD Not available Not available Not available Lab None record ed. Referral None record ed. Procedures None record ed. Surgeries None record ed. Imaging None record ed. MedicationOrders None record ed. VaccineOrders None record ed. Patient TargetsNo targets recorded. Patient InstructionsNo instructions recorded. Reason for Referral None Reported. Results Created Date Observation Date Name Description Value Unit Range Abnormal Flag Specimen Type Note LastModifiedBy Organization Detail LastModifiedTime 05/25/2025 05/25/2025 electromyogram + nerve conduction study No observation recorded. Not Available [facility] Scheduling Dept , [address] [place] [address] , [address], , 05/28/2025 12:51:30 Result Notes None recorded. Problems Name Problem SNOMED Code Status Onset Date Resolution Date Notes Provider Name and Address Organization Details Recorded Time No complaint s 135294015 Active Status: 'I'; Not Available [facility] 4 09:15:56 Carpal tunnel syndrome of right wrist [id number] 108 Active 2014 Problem Code: G56.01; Problem Code Type: ICD-10; Status: 'A'; Not Available [facility] 4 11:28:59 Trigger thumb of right hand [id number] 105 Active 2017 Problem Code: M65.311; Problem Code Type: ICD-10; Status: 'A'; Not Available [facility] 4 11:28:59 Pain of right shoulder joint [id number] 59355 Active 2024 Carolina Bowman PA-C [address], [place], [address] , [facility] 5 11:23:25 Pain of hip region 41706119 [facility] 5 09:11:40 Closed fracture of hip 862314238 Active 2024 Miracle Vines PA-C [address], [place], [address] , [facility] 5 09:42:02 Problem Notes None recorded. Procedures Surgical History Date Name Laterality Status Provider Name and Address Organization Details Recorded Time 05/30/20 25 Carpal Tunnel Kenalog 1cc Injection, Bilateral completed Derek Anglin MD [address], [place], [address], [facility] 05/30/2025 11:34:37 11/07/19 25 Sports Shoulder completed Carolina Bowman PA-C [address], [place], [address], [facility] 11/06/2024 11:26:48 08/28/19 25 18315 Therapeutic Exercise (1:1) completed Nicole Maynard PTA [address], [place], [address], [facility] 08/28/2024 14:52:23 08/24/19 25 05366 Therapeutic Exercise (1:1) completed Nicole Maynard PTA [address], [place], [address], [facility] 08/24/2024 12:36:02 08/24/19 42891 Therapeutic Exercise (1:1) cancelled Nicole Maynard, CARDIOVASCULAR SURGEON [address], [place], [address], [facility] 08/22/2024 12:17:24 08/08/20 92662 Therapeutic Exercise (1:1) completed Nicole Maynard, CARDIOVASCULAR SURGEON [address], [place], [address], [facility] 08/08/2024 11:18:32 08/04/20 19085 Therapeutic Exercise (1:1) completed Nicole Maynard, CARDIOVASCULAR SURGEON [address], [place], [address], [facility] 08/04/2024 10:37:51 07/31/20 24199 Therapeutic Exercise (1:1) completed DONTE LOPEZ DPT [address], [place], [address], [facility] 08/01/2024 10:27:32 07/31/20 48931: Low complexity PT Eval completed DONTE LOPEZ DPT [address], [place], [address], [facility] 08/01/2024 10:28:04 Knee Surgery completed SULLY HERNANDEZ [facility] 03/28/2025 09:40:56 Shoulder Surgery completed SULLY HERNANDEZ [facility] 03/28/2025 09:40:56 Orthopedic Surgery completed SULLY HERNANDEZ [facility] 03/28/2025 09:40:56 Other completed SULLY HERNANDEZ [facility] 03/28/2025 09:40:56 Imaging Results Imaging Date Name Status LastModifiedBy Organization Detail LastModifiedTime 05/25/2025 electromyogram + nerve conduction study completed Not Available [facility] Scheduling Dept , [address] [place] [address] , [place] , [address], [place] , 05/28/2025 12:51:30 Procedure Notes None recorded. Medical Equipment None Reported. Allergies Allergen ID Allergen Name Allergen Category Reaction Reaction Severity Criticality Documentation Date Start Date Code Code System Note Provider Name and Address Organization Details Recorded Time 611088 Tegaderm medicatio n Not available Not available Not available 03/29/2025 NICO martinez [facility] 5 09:11:23 98396 Iodinated contrast media (substanc e) medicatio n Not available Not available Not available 10/25/20232005 60506 2003 SNOMED SULLY HERNANDEZLYUDMILA martinez [facility] 5 09:40:53 37981 codeine medicatio n Not available Not available Not available 10/25/20232014 2670 RxNorm Not Available [facility] 13:40:16 Medications Name Authored On Sig Start Date Stop Date Status Note Indication Fill Status Repeat Number Dispense Quantity LastModified by Organization Details LastModified Time solif enaci n 10 mg table t 4 13:26:56 TAKE 1 TABL ET BY MOUT H EVER Y DAY active Not Available Not availab le 0 Not Available Not Available [facility] 05/01/2024 13:26:56 oxyco done HCl-o xycod one-A SA 4 13:50:16 as dire cted 1 TABL ET Q 4 HOUR S PRN PAIN DO NOT TORI Choudhary ON THIS MED 05/01 aborted Statu s: 'Curr ent'; Not Available Not availab le 0 Not Available [facility] 05/01/2024 13:39:59 zolpi dem 5 mg table t 4 13:26:56 05/01 aborted Not Available Not availab le 0 Not Available [facility] 05/01/2024 13:41:09 Binax NOW COVID -19 Ag Self Test kit 13:26:56 TEST DIRE CTED TODA Y 09/09 /2024 aborted Not Available Not availab le 0 Not Available [facility] 05/01/2024 14:08:27 Linze ss 4 13:50:16 Linz ess 290M CG Caps ule 05/01 aborted Statu s: 'Curr ent'; Not Available Not availab le 0 Not Available [facility] 05/01/2024 14:09:40 iprat ropiu m bromi de 21 mcg (0.03 %) nasal spray 4 13:26:56 USE 1 SPRA Y IN EACH NOST RIL TWIC E TAI Y NEED ED FOR [employer] L ERICA FITO ON 05/01 aborted Not Available Not availab le 0 Not Available [facility] 05/01/2024 14:10:01 neomy gerry 3.5 mg/g- polym yxin B 10,00 0 unit/ g-dex ameth 0.1 % eye oint 4 13:26:56 APPL Y 1 INCH IN LEFT EYE FOUR TIME S TAI Y FOR 2 WEEK S THEN STOP 05/01 aborted Not Available Not availab le 0 Not Available [facility] 05/01/2024 14:10:07 aceta minop hen ER 650 mg table t,ext ended relea se 5 02:18:28 TAKE 1 TABL ET BY JACQUELINE H FOUR TIME S TAI Y active Not Available Not availab le 0 Not Available Not Available [facility] 11/06/2024 02:18:28 calci um 600 mg (as carbo sonny) -benito min D3 20 mcg (800 unit) table t 5 02:18:28 TAKE 1 TABL ET BY JACQUELINE Pham EVER Y DAY. . active Not Available Not availab le 0 Not Available Not Available [facility] 11/06/2024 02:18:28 diaze tootie 2 mg table t 5 02:18:28 TAKE 2 TABL ETS BY JACQUELINE Pham THRE E TIME S TAI Y active Not Available Not availab le 0 Not Available Not Available [facility] 11/06/2024 02:18:28 dicyc lomin e 10 mg capsu le 5 02:18:28 active Not Available Not availab le 0 Not Available Not Available [facility] 11/06/2024 02:18:28 magne sium 500 mg (as magne sium oxide ) table t 5 02:18:28 TAKE 1 TABL ET BY JACQUELINE MCCABEL Y active Not Available Not availab le 0 Not Available Not Available [facility] 11/06/2024 02:18:28 diaze tootie 5 mg table t 5 11:05:12 active Not Available Not availab le 0 Not Available Not Available [employer] [facility] [employer] - prod 03/17/2025 11:05:12 cepha lexin 500 mg capsu le 5 11:05:17 TAKE 1 CAPS ULE BY JACQUELINE Pham THRE E TIME S TAI Y 03/17 aborted Not Available Not availab le 0 Not Available Not Available [employer] [employer] - prod 03/17/2025 11:05:17 amoxi cilli n 875 mg-po tassi um clavu lanat e 125 mg table t 5 06:10:05 TAKE 1 TABL ET BY JACQUELINE Pham EVER Y 12 HOUR S 03/28 aborted Not Available Not availab le 0 Not Available [facility] 03/28/2025 09:40:53 aspir in 81 mg table t,del ayed relea se 4 05:54:42 TAKE 1 TABL ET BY MOUT H TWIC E TAI Y 03/28 aborted Not Available Not availab le 0 Not Available [facility] 03/28/2025 09:40:54 bupro pion HCl SR 150 mg table t,12 hr susta ined- relea se 5 11:05:14 TAKE 1 TABL ET BY MOUT H TWIC E TAI Y 03/28 aborted Not Available Not availab le 0 Not Available [facility] 03/28/2025 09:40:54 olivia styra mine (with sugar ) 4 gram powde r for susp in a packe t 4 13:26:56 DISS OLVE 1 PACK ET IN 2 - 6 OZ OF WATE R OR NONC ARBO SONNY D BEVE RAGE THRE E TIME S TAI Y BEFO RE A MEAL 03/28 aborted Not Available Not availab le 0 Not Available SULLY [facility] 03/28/2025 09:40:54 dulox etine 30 mg capsu le,de layed relea se 5 11:05:13 TAKE 1 CAPS ULE BY MOUT H EVER Y DAY. TAKE WITH 60 MG CAPS ULE FOR A TOTA L TAI Y DOSE OF 90 MG TAI Y 03/28 aborted Not Available Not availab le 0 Not Available SULLY [facility] 03/28/2025 09:40:54 eryth romyc in 5 mg/gr am (0.5 %) eye ointm ent 4 05:54:42 03/28 aborted Not Available Not availab le 0 Not Available SULLY [facility] 03/28/2025 09:40:54 eszop iclon e 2 mg table t 5 06:10:05 03/28 aborted Not Available Not availab le 0 Not Available SULLY [facility] 03/28/2025 09:40:54 gabap entin 600 mg table t 5 11:05:16 TAKE 1 TABL ET BY MOUT H THRE E TIME S TAI Y 03/28 aborted Not Available Not availab le 0 Not Available [facility] 03/28/2025 09:40:54 hydro codon e 5 mg-ac etami nophe n 325 mg table t 5 11:05:14 TAKE 1 TABL ET BY MOUT H EVER Y 8 HOUR S NEED ED FOR SUDHIR RE PAIN FOR 5 DAY 03/28 aborted Not Available Not availab le 0 Not Available [facility] 03/28/2025 09:40:54 hydro xyzin e HCl 50 mg table t 5 11:05:16 TAKE 1 TABL ET BY JACQUELINE H THRE E TIME S TAI Y 03/28 aborted Not Available Not availab le 0 Not Available SULLY [facility] 03/28/2025 09:40:54 hydro xyzin e pamoa te 25 mg capsu le 4 13:26:56 TAKE 1 TO 2 CAPS ULES BY JACQUELINE Pham THRE E TIME S TAI Y NEED ED 03/28 aborted Not Available Not availab le 0 Not Available SULLY [facility] 03/28/2025 09:40:54 methy lpred nisol one 4 mg table ts in a dose pack 5 02:18:28 FOLL OW PACK AGE DIRE CTIO NS 03/28 aborted Not Available Not availab le 0 Not Available SULLYBella [facility]LS[facility] 03/28/2025 09:40:54 nalox one 4 mg/ac tuati on nasal spray 4 05:59:17 INST ILL 1 SPRA Y INTO THE NOST RIL MAY REPE AT DOSE IN OTHE R NOST RIL GIVE THE TIM TION AL DOSE EVER Y 2-3 BREANNA VITA UNTI L RESP ONSE OR MEDI GENOVEVA ASSI BRENDAN CE 03/28 aborted Not Available Not availab le 0 Not Available SULLYBella RAWLS[facility] 03/28/2025 09:40:54 predn isone 10 mg table t 5 06:10:05 03/28 aborted Not Available Not availab le 0 Not Available SULLYBella [facility]LS[facility] 03/28/2025 09:40:54 predn isone 20 mg table t 4 13:26:56 TAKE 1 TABL ET BY JACQUELINE ODOM Y MORN ING 03/28 aborted Not Available Not availab le 0 Not Available SULLYBella [facility] 03/28/2025 09:40:54 predn isone 5 mg table t 4 13:26:56 SEE TAPE R DIRE CTIO NS AURELIANO CHED 03/28 aborted Not Available Not availab le 0 Not Available SULLYBella [facility] 03/28/2025 09:40:54 timol ol fer te 0.5 % eye drops 5 11:05:16 INST ILL 1 DROP IN BOTH EYES TWIC E TAI Y FOR 2 WEEK S 03/28 aborted Not Available Not availab le 0 Not Available SULLYBella [facility]LS[facility] 03/28/2025 09:40:54 diclo fenac 1 % topic al gel 5 02:18:28 APPL Y 2 GRAM S TO THE LEFT THUM B EVER Y 4 HOUR S. DO NOT USE MORE TAHN 12 GRAM S A DAY 03/28 aborted Not Available Not availab le 0 Not Available SULLY [facility] 03/28/2025 09:40:55 gabap entin 100 mg capsu le 5 11:05:15 03/28 aborted Not Available Not availab le 0 Not Available SULLY [facility] 03/28/2025 09:40:55 hydro xyzin e HCl 25 mg table t 4 13:26:56 TAKE 1 TO 2 TABL ETS BY JACQUELINE Pham THRE E TIME S TAI Y NEED ED 03/28 aborted Not Available Not availab le 0 Not Available SULLY [facility] 03/28/2025 09:40:55 ketor olac 0.5 % eye drops 5 11:05:16 INST ILL 1 DROP INTO THE AFFE CTED EYE THRE E TIME S TAI Y STAR TING 2 DAYS PRIO R TO SURG SHIRLEY AND TAPE R DIRE CTED 03/28 aborted Not Available Not availab le 0 Not Available [facility] 03/28/2025 09:40:55 topir amate 50 mg table t 5 11:05:16 TAKE 1 TABL ET BY JACQUELINE Pham TWJANE E TAI Y FOR 2 WEEK S THEN TAKE 2 TABL ETS BY MOUT H TWIC E TAI Y FOR 30 DAYS DIRE CTED 03/28 aborted Not Available Not availab le 0 Not Available [facility] [place] 03/28/2025 09:40:55 zolpi dem 10 mg table t 4 05:54:42 03/28 aborted Not Available Not availab le 0 Not Available SULLY HERNANDEZ [facility] [place] [facility] 03/28/2025 09:40:55 mirab egron ER 25 mg table t,ext ended relea se 24 hr 5 14:07:55 TAKE 1 TABL ET BY MOUT H EVER Y DAY active Not Available Not availab le 0 Not Available Not Available [employer] [facility] [employer] - prod 04/09/2025 14:07:55 prami pexol e 0.125 mg table t 5 14:07:55 TAKE 3 TABL ETS BY MOUT H AT BEDT TAMMY active Not Available Not availab le 0 Not Available Not Available [employer] [facility] [employer] - prod 04/09/2025 14:07:55 bupro pion HCl XL 150 mg 24 hr table t, exten ded relea se 5 13:03:32 TAKE 1 TABL ET BY MOUT H ONCE TAI Y active Not Available Not availab le 0 Not Available Not Available [employer] [facility] [employer] - prod 05/28/2025 13:03:32 oxybu tynin chlor holly ER 5 mg table t,ext ended relea se 24 hr 5 13:03:32 TAKE 1 TABL ET BY MOUT H ONCE ATI Y active Not Available Not availab le 0 Not Available Not Available [employer] [facility] [employer] - prod 05/28/2025 13:03:32 clotr imazo le-be tamet hason e 1 %-0.0 5 % topic al cream 5 13:03:33 APPL Y TO THE AFFE CTED AREA TOPI CALL Y two (2) time s a day NEED ED active Not Available Not availab le 0 Not Available Not Available [employer] [facility] [employer] - prod 05/28/2025 13:03:33 donep ezil 10 mg table t 5 13:03:33 TAKE 1 TABL ET BY MOUT H AT BEDT TAMMY active Not Available Not availab le 0 Not Available Not Available [employer] [facility] [employer] - prod 05/28/2025 13:03:33 estra diol 0.01% (0.1 mg/gr am) vagin al cream 13:03:33 INSE RT 1 gram OF crea m VAGI VIRAJ Y TWIC E A WEEK active Not Available Not availab le 0 Not Available Not Available [employer] [facility] [employer] - prod 05/28/2025 13:03:33 gabap entin 800 mg table t 5 13:03:33 TAKE 1 TABL ET BY MOUT H THRE E TIME S TAI Y active Not Available Not availab le 0 Not Available Not Available [employer] [facility] [employer] - prod 05/28/2025 13:03:33 lactu lose 10 gram/ 15 mL oral solut ion 13:03:33 TAKE 20 ML BY MOUT H 1 TIME AT BEDT TAMMY NEED ED FOR CONS TIPA TION active Not Available Not availab le 0 Not Available Not Available [employer] [facility] [employer] - prod 05/28/2025 13:03:33 Myrbe triq 50 mg table t,ext ended relea se 5 13:03:33 TAKE 1 TABL ET BY MOUT H ONCE TAI Y active Not Available Not availab le 0 Not Available Not Available [employer] [facility] [employer] - prod 05/28/2025 13:03:33 napro xen 375 mg table t 5 13:03:33 TAKE 1 TABL ET BY MOUT H TWIC E TAI Y WITH MEAL S active Not Available Not availab le 0 Not Available Not Available [employer] [facility] [employer] - prod 05/28/2025 13:03:33 alend ronat e 70 mg table t 5 13:03:34 TAKE 1 TABL ET BY MOUT H ONCE WEEK LY 30 BREANNA VITA BEFO RE ANY FOOD OR DRIN K active Not Available Not availab le 0 Not Available Not Available [employer] [facility] [employer] - prod 05/28/2025 13:03:34 bupro pion HCl XL 300 mg 24 hr table t, exten ded relea se 13:03:34 TAKE 1 TABL ET BY MOUT H TAI Y active Not Available Not availab le 0 Not Available Not Available [employer] [facility] [employer] - prod 05/28/2025 13:03:34 dulox etine 60 mg capsu le,de layed relea se 5 13:03:34 TAKE 1 CAPS ULE BY MOUT H TWIC E TAI Y active Not Available Not availab le 0 Not Available Not Available [employer] [facility] [employer] - prod 05/28/2025 13:03:34 metop rolol succi sonny ER 50 mg table t,ext ended relea se 24 hr 13:03:34 TAKE 1 TABL ET BY MOUT H EVER Y DAY active Not Available Not availab le 0 Not Available Not Available [employer] [facility] [employer] - prod 05/28/2025 13:03:34 omepr azole 20 mg capsu le,de layed relea se 13:03:34 TAKE ONE CAPS ULE BY MOUT H ONCE IN THE MORN ING AND 1 CAPS ULE AT BEDT TAMMY active Not Available Not availab le 0 Not Available Not Available [employer] [facility] [employer] - prod 05/28/2025 13:03:34 topir amate 100 mg table t 13:03:34 TAKE 1 TABL ET BY MOUT H TWIC E TAI Y active Not Available Not availab le 0 Not Available Not Available [employer] [facility] [employer] - prod 05/28/2025 13:03:34 Vitals Date Recorded Body height Body mass index (BMI) Body weight Provider Name and Address Organization Details Last Updated DateTime 05/30/2025 157.48 cm 31.3 kg/m2 00392.3 g SULLY HERNANDEZ [facility] 05/30/2025 10:30:32 Social History Question Answer Notes LastModified by Organizat ion Details LastModified Time Tobacco Smoking Status Former Smoker SULLY HERNANDEZ [facility] 03/28/2025 09:40:55 How Many Times Per Week Do You Consume Alcohol? Less Than 1 Time Per Week SULLY HERNANDEZ [facility] 03/28/2025 09:40:55 Which of your hands is dominant? Right Carolina Bowman PA-C [address], [place], [address], [facility] 11/06/2024 16:21:21 How many years have you smoked tobacco? 33 SULLYBella HERNANDEZ [facility] 03/28/2025 09:40:55 When did you quit smoking? 6-10 years since last cigarette SULLYBella HERNANDEZ [facility] 03/28/2025 09:40:55 What is your relationship status? SULLYBella HERNANDEZ [facility] 03/28/2025 09:40:55 Social History Observation Description Date Observed Sex Unknown 05/30/2025 Legal Sex Female Status Not (finding) 08/15/20 25 No social history survey screeners recorded No social history SDOH screeners recorded Functional Status Question Answer Note LastModified by Organizat ion Details LastModified Time Do you or have you ever used any other forms of tobacco or nicotine? Yes SULLYBella HERNANDEZ [facility] 03/28/2025 09:40:55 Do you or have you ever used e-cigarettes or vape? Never used electronic cigarettes SULLYBella HERNANDEZ [facility] 03/28/2025 09:40:55 How many times per week do you consume alcohol? Less than 1 time per week SULLYBella HERNANDEZ [facility] 03/28/2025 09:40:55 Do you use any illicit or recreational drugs? No [facility] 03/28/2025 09:40:55 Date Assessment Value LastModified by Organizat ion Details LastModified Time 08/01/2024 Lower Extremity Functional Scale 43 DONTE LOPEZ DPT [facility] 08/01/2024 10:21:51 No Functional SDOH screeners recorded Mental Status None recorded. No Mental Screening assessment recorded No Mental SDOH screeners recorded Family History Nothing Reported. Medical History Condition Response Allergies/Hayfever N Coronary Artery Disease N Anxiety/Depression Y Breathing or lung disorders N Emphysema N Nerve Disorders Y Thyroid Problems N COPD N Pacemaker N Anemia N Kidney/Bladder Problems Y Vascular Disease N Heart Trouble N Heart Attack (DE) N Gastrointestinal Disease N Cholesterol N Diabetes [...] ICD10 Code Diagnosis IMO Codes Diagnosis Note [id number] MD ZULY Cagle [address] [facility] [address] 05/30/2025 09:48:34 06/06/2025 13:28:19 Bilateral carpal tunnel syndrome [id number] [id number] G56.03 [id number] Health Concerns Section Related Observation LastModified by Organization Detai ls LastModified Time None Recorded Concern Status LastModified by Organization Details LastModified Time None Recorded SDOH Concern Status LastModified by Organization Detai ls LastModified Time None Recorded Payers Encounter Date Sequence Insurance Name Policy Number Policy Womack Covered Member ID Womack Member ID Guarantor Name 05/30/2025 2 [place] [facility] PL[facility] Edu Suárez [id number] Halle Suárez 05/30/2025 1 [place] [employer] Edu Suárze [id number] Halle Suárez Notes Date Note Type Note Provider Name and Address Organization Details Recorded Time 05/30/2025 text/html ROS as noted in the HPI Diagnosis: Possible bilateral recurrent carpal tunnel syndrome The patient returns at her request. Since her last visit she underwent an EMG/NCS of her bilateral upper extremities. She reports that she was eval by resident services supervisor who recommended a neurologist. Past family, medical, [...] follow-up at her discretion. Derek Anglin MD [address] [place] [address] [address], [place], [address], [facility] [place] [facility] [facility] 05/30/2025 11:35:03 Care Team Name Role Member ID Specialty Address Phone MEGHAN CHAVEZ MD Primary Care Provider [id number] [address] [place], [place] OBGyn Episode No OBEpisode recorded.
--- OUTSIDE RECORDS SUMMARY | 2025-08-15 10:16 | XMS_ITS | Encounter Summary ---
Author Organization [facility] Address [address] [place] [address] [place] [address] Phone Care Team Providers Care Parking Station Attendant Name Role Phone Jo-Ann Cho MD Primary Care Provider +1- [phone] Tito Alvarado MD Primary Care Provider Pcp, Unknown Primary Care Provider Johann Schroeder MD Primary Care Provider +1- [phone] Encounter Details Date Type Department Care Team (Late st Contact Info) Description 04/26/2018 Procedure Pass [facility] PERIOPER[facility]IVE DEPT [address] [place] [phone] Social History Tobacco Use Types Packs/Day Years [...] as of this encounter Plan of Treatment Not on file documented as of this encounter Visit Diagnoses Not on filedocumented in this encounter Additional Health Concerns Infection Onset Date Last Indicated Resolved Time COVID-19 12/14/2021 12/14/2021 01/04/2022 1:23 AM EDT documented as of this encounter Care Teams Parking Station Attendant Relationship Specialty Start Date End Date Jo-Ann Cho MD [address] [place] [address] PCP - General Internal Medicine 03/30/18 07/29/21 Tito Alvarado MD [address] [place] [address] PCP - General Internal Medicine 07/30/21 12/15/22 Pcp, Unknown PCP - General 12/16/22 01/28/23 Johann Trujillo MD [address] [place] [address] PCP - General Internal Medicine 01/29/23 documented as of this encounter Additional Source Comments The information contained in this document represents components of the legal health record. It is not the complete legal health record.[facility]
--- OUTSIDE RECORDS SUMMARY | 2025-08-15 10:16 | XMS_ITS | Encounter Summary ---
Author Organization [facility] Address [address] [place] [address] [place] [address] Phone Care Team Providers Care Axminster Weaver Name Role Phone Jo-Ann Cho MD Primary Care Provider +1- [phone] Tito Alvarado MD Primary Care Provider Pcp, Unknown Primary Care Provider Johann Schroeder MD Primary Care Provider +1- [phone] Encounter Details Date Type Department Care Team (Late st Contact Info) Description 04/06/2018 Prep for Surgery [facility] [address] [facility], 4th Floor, [address] [place] [address] Ann Parrish, LOZENGE MAKER HELPER [address] [place] [address] [email or web address] Social History Tobacco Use Types Packs/Day [...] documented as of this encounter Care Teams Axminster Weaver Relationship Specialty Start Date End Date Jo-Ann Cho MD [address] [place] [address] PCP - General Internal Medicine 03/30/18 07/29/21 Tito Alvarado MD [address] [place] [address] PCP - General Internal Medicine 07/30/21 12/15/22 Pcp, Unknown PCP - General 12/16/22 01/28/23 Johann Trujillo MD [address] [place] [address] PCP - General Internal Medicine 01/29/23 documented as of this encounter Additional Source Comments The information contained in this document represents components of the legal health record. It is not the complete legal health record.[facility]
--- OUTSIDE RECORDS SUMMARY | 2025-08-15 10:16 | XMS_ITS | Clinical Summary ---
Author Organization [facility] Address [address] [place] [address] Phone Care Team Providers Care Bender Machine Name Role Phone Johann Trujillo MD Primary Care Provider +1- [phone] Allergies Active Allergy Reactions Criticality Noted Date Comments Codeine Nausea and/or Vomiting 11/28/2014 Iodinated Contrast Media 11/28/2014 UNSPECIFIED Contrast Media - [place] warm and sick Adhesive Tape-Silicones Rash Low 12/19/2024 Medications solifenacin (VESICARE) 10 MG tablet Take 10 mg by mouth nightly at bedtime. Active ID-duloxetine DR ([id number]) 60 mg capsule nightly at bedtime. 07/02/2021 [...] 04/23/2022 Active ID-vitamin D3 or placebo ([phone] 35460 iu capsule Active hydrOXYzine (VISTARIL) 25 MG [...] Encounters Date Type Department Care Team Description 06/21/2025 3:45 PM EDT Telemedicine [facility] [address] [place] [address], 4th Floor, [address] [place] [address] Johann Francis MD Bilateral occipital neuralgia (Primary [...] 01/09/2025 6:45 AM EDT Plan of Treatment Health Maintenance Due Date [...] this topic Medical Devices Implanted Type Area Roller Hand Device Identifier Shelf Expiration Date Model / Serial / Lot Irving-09/27/2022 Implanted:2022 (Quantity not on file) [employer] Insurance HEALTH MEDICARE PART A & B [address] [place], [place] [address]HEALTH MEDICARE PART A & B [address] [place], [place] [address] [place] [address] MEDIC[place] PART A & B ([address] MEDICARE PART A & B [place] B Care Teams Bender Machine Relationship Specialty Start Date End Date Johann Trujillo MD [address] [place] [address] PCP - General Internal Medicine 01/29/23 Additional Source Comments The information contained in this document represents components of the legal health record. It is not the complete legal health record.[facility]
--- OUTSIDE RECORDS SUMMARY | 2025-08-15 10:17 | XMS_ITS | Encounter Summary ---
Author Organization [facility] Address [address] [place] [address] Phone Care Team Providers Care Drug Regulatory Affairs Specialist Name Role Phone Johann Trujillo MD Primary Care Provider +1- [phone] Encounter Details Date Type Department Care Team (Late st Contact Info) Description 04/27/2023 Procedure Pass [facility] [place] [address] [place] [phone] Social History Tobacco Use Types Packs/Day Years [...] on filedocumented in this encounter Care Teams Drug Regulatory Affairs Specialist Relationship Specialty Start Date End Date Johann Trujillo MD [address] [place] [address] PCP - General Internal Medicine 01/29/23 documented as of this encounter Additional Source Comments The information contained in this document represents components of the legal health record. It is not the complete legal health record.[facility]
--- OUTSIDE RECORDS SUMMARY | 2025-08-15 10:17 | XMS_ITS | Encounter Summary ---
Author Organization [facility] Address [address] [place], [place] [phone] Phone Care Team Providers Care Buffing And Polishing Wheel Repairer Name Role Phone Tito Alvarado MD Primary Care Provider Pcp, Unknown Primary Care Provider Johann Schroeder MD Primary Care Provider +1- [phone] Encounter Details Date Type Department Care Team (Late st Contact Info) Description 02/11/2022 Procedure Pass [facility] [address] [place] [phone] Social History Tobacco Use Types Packs/Day Years [...] on filedocumented in this encounter Care Teams Buffing And Polishing Wheel Repairer Relationship Specialty Start Date End Date Tito Alvarado MD PCP - General Internal Medicine 07/30/21 12/15/22 Pcp, Unknown PCP - General 12/16/22 01/28/23 Johann Trujillo MD [address] [place] [address] PCP - General Internal Medicine 01/29/23 documented as of this encounter Additional Source Comments The information contained in this document represents components of the legal health record. It is not the complete legal health record.[facility]
--- OUTSIDE RECORDS SUMMARY | 2025-08-15 10:17 | XMS_ITS | Encounter Summary ---
Author Organization [facility] Address [address] [place] [address] Phone Care Team Providers Care Bruise Trimmer Name Role Phone Johann Trujillo MD Primary Care Provider +1- [phone] Encounter Details Date Type Department Care Team (Late st Contact Info) Description 01/09/2025 Procedure Pass [facility]PT [address] [place] [phone] Social History Tobacco Use Types Packs/Day Years [...] on filedocumented in this encounter Care Teams Bruise Trimmer Relationship Specialty Start Date End Date Johann Trujillo MD [address] [place] [address] PCP - General Internal Medicine 01/29/23 documented as of this encounter Additional Source Comments The information contained in this document represents components of the legal health record. It is not the complete legal health record.[facility]
--- OUTSIDE RECORDS SUMMARY | 2025-08-15 10:17 | XMS_ITS | Clinical Summary ---
Author Organization [facility] Address [address] [place] [address] Care Team Providers Care Attending Urologist Name Role Phone Tito Alvarado MD Primary Care Provider + [phone] Allergies Active Allergy Reactions Criticality Noted Date Comments Codeine GI Intolerance 03/10/2021 Iodinated Contrast Media Unknown 03/10/2021 Medications FLUoxetine (PROzac) 20 MG tablet Take 20 mg by mouth daily. Active topiramate (TOPAMAX) 100 MG tablet Take 100 mg by mouth every morning & every evening. Active solifenacin (VESICARE) 10 MG tablet Take 5 mg by mouth daily. Active cholecalciferol , vitamin D3, 25 mcg (1,000 unit) capsule Take 1,000 Units by mouth daily. Active calcium carbonate (OS-GENOVEVA) 600 mg calcium (1,500 mg) tablet Take 600 mg by mouth 2 times a day with breakfast & dinner. Active magnesium oxide 500 mg cap Take by mouth. Acti ve meloxicam (MOBIC) 15 MG tablet Take 15 mg by mouth daily. Active ferrous sulfate 325 (65 FE) MG tablet Take 325 mg by mouth daily with breakfast. Active DULoxetine (CYMBALTA) [address] capsule TAKE 1 CAPSULE BY MOUTH DAILY TAKE WITH 30 MG CAPSULE FOR TOTAL 90 MG DAILY 2 Active pramipexole (MIRAPEX) 0.125 MG tablet Take by mouth. 2 Active Active Problems Problem Noted Date Diagnosed Date Recurrent severe major depressive disorder with anxiety 06/17/2022 Attention disturbance 06/17/2022 Overview (06/17/2022): Adult ADHD self-report scale (ASRS v1.1) symptom checklist: Part A: 4; Part B: 5. on 04/11/18 Ex-cigarette smoker 06/17/2022 History of hysterectomy 06/17/2022 Postlaminectomy syndrome of lumbar region 2021 Chronic postoperative pain 06/17/2022 Chronic pain syndrome 03/10/2021 Arthralgia of multiple sites 03/10/2021 Chronic lumbosacral pain 03/10/2021 Fibromyalgia 03/10/2021 Opioid-induced hyperalgesia 03/10/2021 Irritable bowel syndrome 03/10/2021 Memory loss or impairment 03/10/2021 Headache disorder 03/10/2021 Numbness and tingling 03/10/2021 Primary insomnia 03/10/2021 Chronic fatigue 03/10/2021 Cannabis dependence, daily use 03/10/2021 Pelvic pain 03/10/2021 Hidradenitis suppurativa 11/28/2014 Overview (06/17/2022): Hidradenitis suppurativa Social History Tobacco Use Types Packs/Day Years Used Date Smoking Tobacco: Former Smokeless Tobacco: Never Tobacco Cessation:Counseling Given: Not Answered Comments Unknown Sex and Gender Information Value Date Recorded Sex Assigned at Female 02/11/2021 3:49 PM EDT Legal Sex Female 8:38 PM EST Gender Identity Female 03/07/2021 11:37 AM EDT Sexual Orientation Not on file Last Filed Vital Signs Vital Sign Reading Time Taken Comments Blood Pressure - - Pulse - - Temperature - - Respiratory Rate 16 06/17/2022 11:25 AM EDT Oxygen Saturation - - Inhaled Oxygen Concentration - - Weight 79.4 kg (175 lb) 06/17/2022 11:25 AM EDT Height 160 cm (5' 3 ) 06/17/2022 11:25 AM EDT Body Mass Index 31 06/17/2022 11:25 AM EDT Plan of Treatment Health Maintenance Due Date Last Done Comments Blood Pressure 1965 Lipid Panel 1965 Depression Screening 1979 Hepatitis C Screening 12/16/1985 Pap Smear 12/16/1988 Cervical Cancer Screening 12/16/1997 HPV/Cotest 12/16/1997 Breast Cancer Screening 2007 CT Colonography 12/16/2012 Colonoscopy 12/16/2012 Colorectal Cancer Screening 12/16/2012 FIT 12/16/2012 FOBT 12/16/2012 Multitarget Stool DNA (Cologuard) 12/16/2012 Sigmoidoscopy 12/16/2012 Pneumococcal Vaccine: 50+ Years (1 of 1 - PCV) 12/16/2017 COVID-19 Vaccine (5 - season) 2025 03/27/2022, 03/27/2022, 08/21/2021, Additional history exists Influenza Vaccine (#1) 2025 , 07/13/2020, 07/13/2020, Additional history exists DTaP,Tdap,and Td Vaccines (2 - Td or Tdap) 06/05/2028 06/05/2018 Zoster Vaccine Completed 11/20/2018, 09/17/2018 Meningococcal B Vaccines Aged Out No longer eligible based on patient's age to complete this topic Meningococcal Vaccines Aged Out No lo nger eligible based on patient's age to complete this topic Insurance Care Teams Attending Urologist Relationship Specialty Start Date End Date Tito Alvarado MD [address] [place] [address] PCP - General Internal Medicine 05/06/22
--- OUTSIDE RECORDS SUMMARY | 2025-08-15 10:17 | XMS_ITS | Clinical Summary ---
Author Organization [facility] Address [address] [place] [address] Phone Care Team Providers Care Plant Pathology Teacher Name Role Phone Johann Trujillo MD Primary Care Provider [phone] Allergies Active Allergy Reactions Criticality Noted Date [...] on file Sexual Orientation Not on file Last Filed [...] METABOLIC PANEL STAT 09/05/2024 4:29 PM EST [facility] SCREENING DIGITAL Routine 01/23/2022 4:44 PM EDT Encounter for screening mammogram for malignant neoplasm of breast [facility] DEXA AXIAL SKELETON Routine 10/30/2019 8:08 AM EDT Encounter for screening for osteoporosis from Last 3 Months or Most Recently Relevant to Health Maintenance Results * Comprehensive metabolic panel (09/05/2024 4:29 PM EST) Sodium 140 133 - 145 mmol/L LAB CHEMISTRY METHOD 09/05/2024 5:21 PM [facility] Potassium 4.5 3.5 - 5.5 mmol/L LAB CHEMISTRY METHOD 09/05/2024 5:21 PM [facility] Chloride 110 96 - 110 mmol/L LAB CHEMISTRY METHOD 09/05/2024 5:21 PM [facility] CO2 26 21 - 32 mmol/L LAB CHEMISTRY METHOD 09/05/2024 5:21 PM [facility] Anion Gap 4 3 - 11 LAB CHEMISTRY METHOD 09/05/2024 5:21 PM [facility] Glucose 95 70 - 100 mg/dL LAB CHEMISTRY METHOD 09/05/2024 5:21 PM [facility] BUN 16 5 - 25 mg/dL LAB CHEMISTRY METHOD 09/05/2024 5:21 PM [facility] Creatinine 0.98 0.50 - 1.10 mg/dL LAB CHEMISTRY METHOD 09/05/2024 5:21 PM [facility] eGFR 68 >=60 mL/min/1. 73m2 LAB CHEMISTRY METHOD 09/05/2024 5:21 PM [facility] Comment:Calculation based on the Chronic Kidney Disease Epidemiology Collaboration (CKD-EPI) equation refit without adjustment for race. BUN/Creatinine Ratio 16.3 LAB CHEMISTRY METHOD 09/05/2024 5:21 PM [facility] Calcium 9.0 8.5 - 10.5 mg/dL LAB CHEMISTRY METHOD 09/05/2024 5:21 PM [facility] AST (SGOT) 22 10 - 42 unit/L LAB CHEMISTRY METHOD 09/05/2024 5:21 PM [facility] ALT (SGPT) 27 10 - 60 unit/L LAB CHEMISTRY METHOD 09/05/2024 5:21 PM [facility] Alkaline Phosphatase 50 42 - 121 unit/L LAB CHEMISTRY METHOD 09/05/2024 5:21 PM [facility] Total Protein 6.8 6.0 - 8.0 g/dL LAB CHEMISTRY METHOD 09/05/2024 5:21 PM [facility] Albumin 3.8 3.2 - 5.0 g/dL LAB CHEMISTRY METHOD 09/05/2024 5:21 PM [facility] Total Bilirubin 0.3 0.0 - 1.4 mg/dL LAB CHEMISTRY METHOD 09/05/2024 5:21 PM [facility] Blood Venous blood specimen / Unknown Venipuncture / Unknown 09/05/2024 4:29 PM EST 09/05/2024 4:51 PM EST us Harris Fay MD LAB BLOOD ORDERABLES Final Resu lt [facility] [address] [place] [address], * [facility] SCREENING DIGITAL (01/23/2022 4:44 PM EDT) Anatomical Region Laterality Modality Mammography 01/23/2022 11:1 5 AM EDT Narrative 01/23/2022 4:44 PM EDT [facility] Diagnostic Imaging Department [address] [place] [address] Patient: EDU SUÁREZ Ellen /Age/Sex: 1965 - 56 - F Unit#: [id number] Location/Status: [facility] CLI Mnemonic/Ordering Site: [facility] Ordering Physician: KATHERIN ALVARADO MD [facility] Screening Digital - 01/23/22 - 1154 History: Bilateral breast cancer screening. Technique: Digital mammography. Conventional CC and MLO projections with tomosynthesis MLO views and computer aided detection. Comparison: [facility] 01/27/2021 dating back to 02/10/2016. Findings: Breast tissue consists of fatty and fibroglandular elements (category b density) bilaterally (as calculated by Digital Karmapara software). There is no suspicious group of microcalcifications, mass, architectural distortion or suspicious change in breast tissue density. Impression: No evidence of malignancy. BIRADS category 1; negative study, 3341F 42101, [address] Note: Patient information entered into a reminder system with a target due date for the next mammogram: CPT II 7025F Dictating Physician: CANDELARIO ENRIQUEZ MD Electronically Signed by: CANDELARIO ENRIQUEZ MD Dic Date/Time: 01/23/22 1640 Sign date/Time: 01/23/22 1644 Procedure Note Candelario Enriquez MD - 08/12/2022 [facility] Diagnostic Imaging Department [address] [place] [address] Patient: EDU SUÁERZ Ellen /Age/Sex: 1965 - 56 - F Unit#: [id number] Location/Status: [facility]/REG CLI Mnemonic/Ordering Site: [facility] Ordering Physician: KATHERIN ALVARADO MD Terell Screening [...] malignancy. BIRADS category 1; negative study, 3341F 19062, [address] Note: Patient information entered into a reminder system with a target duedate for the next mammogram: CPT II 7025F Dictating Physician: CANDELARIO ENRIQUEZ MD Electronically Signed by: CANDELARIO ENRIQUEZ MD Dic Date/Time: 01/23/22 1640 Sign date/Time: 01/23/22 8073 us Katherin Alvarado MD IMG BI PROCEDURES Final Resu lt * [facility] DEXA AXIAL SKELETON (10/30/2019 8:08 AM EDT) Anatomical Region Laterality Modality Mammography 10/30/2019 7:36 AM EDT Narrative 10/30/2019 8:08 AM EDT [facility] Diagnostic Imaging Department [address] [place] [address] Patient: EDU SUÁREZ Ellen /Age/Sex: 1965 53 - F Unit#: [id number] Location/Status: [facility] CLI Mnemonic/Ordering Site: [facility] Ordering Physician: GERARDO LUX MD [facility] Dexa Axial Skeleton - 10/30/19758 [...] probability of hip fracture of 1.2%. Code 62896 Dictating Physician: GABRIELLA PIERRE MD Electronically Signed by: GABRIELLA PIERRE MD Dic Date/Time: 10/30/19805 Sign date/Time: 10/30/19807 Procedure Note Gabriella Pierre - 08/11/2022 [facility] Diagnostic Imaging Department [address] [place], [place] [id number] Patient: EDU SUÁREZ Ellen /Age/Sex: 1965 - 53 - F Unit#: [id number] [facility]Ordering Site: [facility] Ordering Physician: GERARDO LUX MD [facility] Dexa Axial Skeleton - 10/30/19 0019 HISTORY: The patient is a 53-year-old postmenopausal [...] density of the femurs bilaterally is 0.796 gm/rz2jzorf is 79% of that of young normals [...] probability of hip fracture of 1.2%. Code 07038 Dictating Physician: GABRIELLA PIERRE MD Electronically Signed by: GABRIELLA PIERRE MD Dic Date/Time: 10/30/19 0806 Sign date/Time: 10/30/19 0808 Gerardo Lux MD IMG BI PROCEDURES Final Result from Last 3 Months or Most Recently Relevant to Health Maintenance Insurance MEDICAID - [place] Care Teams Plant Pathology Teacher Relationship Specialty Start Date End Date Johann Trujillo MD [address] [place] PCP - General Internal Medicine 09/06/24
--- OUTSIDE RECORDS SUMMARY | 2025-08-15 10:17 | XMS_ITS | Data Portability ---
Author Organization [facility], [facility] Address [address] [place] [address] Care Team Providers Care Asset Protection Agent Name Role Phone Meghan Trujillo Primary Care Provider [phone] Assessment No assessment recorded. Plan of Treatment Reminders Order Date Submit Date Provider Name Organization Details Last Modified By Last Modified Time Details Appointments RECHEC K 15 2025 10:30A M Derek Anglin MD Not available Not available Not available Lab None record ed. Referral None record ed. Procedures None record ed. Surgeries None record ed. Imaging XR, hip + pelvis , unilat eral, 2 or 3 view 2024 09:12: 19 025 Miracle cunningham PA-C [facility] [address], [place], [address], Miracle Vines PA-C 03/29/2025 16:39:03 electr omyogr am + nerve conduc tion study 2024 10:57: 37 025 Derek Anglin MD [facility] ([facility]) [address], [place], [address], Not Available 05/25/2025 18:34:19 XR, hand, 3 or more view 2024 09:55: 02 025 Derek Anglin MD [facility] [address], [place], [address], Ruby Silverman 04/02/2025 15:32:26 MRI, should er, w/o contra st 2024 11:41: 41 025 Ranjit Belle PA-C [facility] ([facility]) [address], [place], [address], Ranjit Belle PA-C 03/21/2025 15:57:11 XR, should er, 2 or more view 2024 14:21: 41 025 Carolina Bowman PA-C [facility] [address], [place], [address], ERIC MESSENGER 11/20/2024 13:48:24 MedicationOrders None record ed. VaccineOrders None record ed. Patient TargetsNo targets recorded. Patient InstructionsNo instructions recorded. Reason for Referral None Reported. Results Created Date Observation Date Name Description Value Unit Range Abnormal Flag Specimen Type Note LastModifiedBy Organization Detail LastModifiedTime 11/06/2024 11/06/2024 shoulder 4 view [email or web address]=kqIrNliSR8bLfoVFr2y%5DPVhvKhqaf6nfzt%0Yz0QWu0 ajFxlB0xZdVDposDv6MnXOQzGrmTMZ5zEkGRtbz11j9738IM6ItXg9LKPRwOcQioRuZ Not Available [facility] , [address] , [place] , [address], , 11/06/2024 14:30:53 11/06/2024 11/06/2024 shoulder 4 view [email or web address]=roWdStzWN3hLorBDv8d%9TXDanRepdp6uqce%2Fv6HNg2 jvTqoK7pLwBDzimSj8EvSTSpFslHIA7iQvMUxgc34o9302OA2BrJh6PVOSwLxXtdCxV Not Available [facility] , [address],[facility] [address] , [place] , [address], , 11/06/2024 14:30:55 03/28/2025 03/28/2025 hand 3 view [email or web address]=evEfDbwIZ9aTfwAUo2o%4BJSvyJhgqy8gjhm%8Ay5LQi0 exVhxC9wKvRSqlzTw0LnMOUuPszUJE1dBbHBttv06z2558NL1VixxsOLhkwDtWioEkF Not Available [facility] , [address],[facility] [address] , [place] , [address], , 03/28/2025 10:02:45 03/28/2025 03/28/2025 hand 3 view [email or web address]=dgRaZcaKO3bZgdMHp0y%0PHWjtKiqpt3csix%7Ki8TRe3 xbWzrK8rSsHYvgqXy8HtENGcJgdUJN2hCrKIabx80d0014TT7RrpbkLEdwmFgHppSoQ Not Available [facility] , [address],[facility] [address] , [place] , [address], , 03/28/2025 10:02:46 03/29/2025 03/29/2025 xr hip + pelvis, unilatera l 2 or 3 view, [address] [email or web address]?Encrypted=gtYqTtcRD6jCvgZAa6j%3GTBvdBpeos7avmc%2Gh8JEj9 roCrmI7pNuQZebqQt4ZpKJNeBbiQWU5dPoVTmol00w5045YQ8JtpwqOL4ApRxSxzPyC Not Available [facility] , [address] , [place] , [address], [place] , 03/29/2025 09:20:32 03/29/2025 03/29/2025 xr hip + pelvis, unilatera l 2 or 3 view, [address] [email or web address]?Encrypted=vmShZadNA6aKweAMk7q%9HYUxrJivas8wmgx%6Zh5UOu1 jmGfhX7bSqAGwxlFb1OdMDYdJglOEP7oMzIGeqp42z2241QI6AaxcrTP7TfNwRvrTwL Not Available [facility] , [address] , [place] , [address], [place] , 03/29/2025 09:20:33 03/29/2025 03/29/2025 CT hip unilat wo No observation recorded. Dane pride [facility] [place] , [address] [facility] , [place] , [address], [place] , 03/30/2025 08:29:58 05/25/2025 05/25/2025 electromy ogram + nerve conductio n study No observation recorded. Not Available [facility] Scheduling Dept , [address] [place] , [address], [place] , 05/28/2025 12:51:30 Result Notes Documentation Provider Name and Address Organization Details Recorded Time Xr, Shoulder, 2 Or More View : [email or web address] Encrypted=ihSsNwvJW8dGxeX Uv6g%6QRYptTjuzo2ygts%2Fg 9DRq9uaSieH9wUaQHgweTx8Xr UWOyLcpYWS3lYpMPkrm67s394 7KH7OpXt7RCKPyBgKiwSkD Not Available [facility] 11/06/2024 14:30: 53 Xr, Shoulder, 2 Or More View : [email or web address] Encrypted=kvLvTraST2sBllN Uv6g%7DUKgtCjkur3utzo%2Fg 7SRj1jaVqtA4xZbLHgowEc0Tk ZPOsXmhRIQ0bBaCMfhx75m969 4ZL8QqIl0PJRYfAgWycWtU Not Available [facility] 11/06/2024 14:30: 55 Xr, Hand, 3 Or More View : [email or web address] Encrypted=rxEnYoxFH0cIbcA Uv6g%2RAFrcCbnca2qqkx%2Fg 8GMc9vfAqmT4dXbVKyovOn4Mc ZKWeYueMLB8rOtDScby99w095 5EL3VunntDMsgnXkBwbBpQ Not Available Critical [facility] hospital 03/28/2025 10:02: 45 Xr, Hand, 3 Or More View : [email or web address] Encrypted=vvHxSraVI2eRrkH Uv6g%0YJFbhTbobi0lgsa%2Fg 9DAd5xfZvcX8tIqAUplzJc2Vd UPBcTseTYA9oOnYWrxd21r733 8IN2JqnqsBIxsiTmXgsXrL Not Available [facility] 03/28/2025 10:02: 46 Xr, Hip + Pelvis, Unilateral, 2 Or 3 View : [email or web address] Encrypted=czIuEhtXG2gRmyO Uv6g%6FFWieNjpbg4fbwd%2Fg 6LJi7wuNdzB1fKmNRenqBm4Tw OJGtQpvABN9pVnYWhkx34e645 3XV3PgykuNX7QcRsKfdLjL Not Available [facility] 03/29/2025 09:20: 32 Xr, Hip + Pelvis, Unilateral, 2 Or 3 View : [email or web address] Encrypted=hsBnRhxIJ1gJifD Uv6g%1RFHefLyyzm1bfjh%2Fg 1AYe7zkTwiK6mVlIPjmeTj8Kb QQGqBxkPKF3xEiWPahy17s841 1YP1WchikJF9RiOwNxaKiO Not Available Critical [facility] hospital 03/29/2025 09:20: 33 Problems Name Problem SNOMED Code Status Onset Date Resolution Date Notes Provider Name and Address Organization Details Recorded Time No complaint s [id number] Active Status: 'I'; Not Available [facility] 4 09:15:56 Carpal tunnel syndrome of right wrist 281772336049 108 Active 2014 Problem Code: G56.01; Problem Code Type: ICD-10; Status: 'A'; Not Available [facility] 4 11:28:59 Trigger thumb of right hand 642208570683 105 Active 2017 Problem Code: M65.311; Problem Code Type: ICD-10; Status: 'A'; Not Available [facility] 4 11:28:59 Pain of right shoulder joint 130876601315 61752 Active 2024 Carolina Bowman PA-C [address], [place], [address] , [facility] 5 11:23:25 Pain of hip region 96080259 Active 2024 NICO maritnez [facility] 5 09:11:40 Closed fracture of hip 626536361 Active 2024 Miracle Vines PA-C [address], [place], [address] , [facility] 5 09:42:02 Problem Notes None recorded. Procedures Surgical History Date Name Laterality Status Provider Name and Address Organization Details Recorded Time 05/30/20 25 Carpal Tunnel Kenalog 1cc Injection, Bilateral completed Derek Anglin MD [address], [place], [address], [facility] 05/30/2025 11:34:37 11/07/19 25 Sports Shoulder completed Carolina Bowman PA-C [address], [place], [address], [facility] 11/06/2024 11:26:48 08/28/19 06343 Therapeutic Exercise (1:1) completed Nicole Maynard, COIN COLLECTOR [address], [place], [address], [facility] 08/28/2024 14:52:23 08/24/19 66732 Therapeutic Exercise (1:1) completed Nicole Maynard, COIN COLLECTOR [address], [place], [address], [facility] 08/24/2024 12:36:02 08/24/19 87344 Therapeutic Exercise (1:1) cancelled Nicole Maynard, COIN COLLECTOR [address], [place], [address], [facility] 08/22/2024 12:17:24 08/08/20 35830 Therapeutic Exercise (1:1) completed Nicole Maynard, COIN COLLECTOR [address], [place], [address], [facility] 08/08/2024 11:18:32 08/04/20 04490 Therapeutic Exercise (1:1) completed Nicole Maynard, COIN COLLECTOR [address], [place], [address], [facility] 08/04/2024 10:37:51 07/31/20 35991 Therapeutic Exercise (1:1) completed DONTE LOPEZ DPT [address], [place], [address], [facility] 08/01/2024 10:27:32 07/31/20 13457: Low complexity PT Eval completed DONTE LOPEZ DPT [address], [place], [address], [facility] 08/01/2024 10:28:04 Knee Surgery completed SULLY HERNANDEZ [facility] 03/28/2025 09:40:56 Shoulder Surgery completed SULLY HERNANDEZ [place] [facility] [place] 03/28/2025 09:40:56 Orthopedic Surgery completed SULLY HERNANDEZ [place] [facility] [place] [facility] 03/28/2025 09:40:56 Other completed SULLY Nieves [facility] 03/28/2025 09:40:56 Imaging Results Imaging Date Name Status LastModifiedBy Organization Detail LastModifiedTime 11/06/2024 shoulder 4 view completed Not Available [facility] , [address] , [place] , [address], [place] , 11/06/2024 14:30:53 11/06/2024 shoulder 4 view completed Not Available [facility] , [address] , [place] , [address], [place] , 11/06/2024 14:30:55 03/28/2025 hand 3 view completed Not Available [facility] , [address] , [place] , [address], [place] , 03/28/2025 10:02:45 03/28/2025 hand 3 view completed Not Available [facility] , [address] , [place] , [address], [place] , 03/28/2025 10:02:46 03/29/2025 xr hip + pelvis, unilateral 2 or 3 view, [address] completed Not Available [facility] , [address] , [place] , [address], [place] , 03/29/2025 09:20:32 03/29/2025 xr hip + pelvis, unilateral 2 or 3 view, [address] completed Not Available [facility] , [address] , [place] , [address], [place] , 03/29/2025 09:20:33 03/29/2025 CT hip unilat wo completed [facility] [place] , [address] , [place] , [address], [place] , 03/30/2025 08:29:58 05/25/2025 electromyogram + nerve conduction study completed Not Available [facility] Scheduling Dept , [address] [place] [address] , [address], [place] , 05/28/2025 12:51:30 Procedure Notes None recorded. Medical Equipment None Reported. Allergies Allergen ID Allergen Name Allergen Category Reaction Reaction Severity Criticality Documentation Date Start Date Code Code System Note Provider Name and Address Organization Details Recorded Time 141152 Tegaderm medicatio n Not available Not available Not available 03/29/2025 NICO martinez [facility] 5 09:11:23 28876 Iodinated contrast media (substanc e) medicatio n Not available Not available Not available 10/25/20232005 67766 2003 SNOMED SULLY MARY martinez [facility] 5 09:40:53 41489 codeine medicatio n Not available Not available Not available 10/25/20232014 2670 RxNorm Not Available [facility] 4 13:40:16 Medications Name Authored On Sig Start Date Stop Date Status Note Indication Fill Status Repeat Number Dispense Quantity LastModified by Organization Details LastModified Time solif enaci n 10 mg table t 4 13:26:56 TAKE 1 TABL ET BY MOUT H EVER Y DAY active Not Available Not availab le 0 Not Available Not Available [facility] 05/01/2024 13:26:56 oxyco done HCl-o xycod one-A SA 4 13:50:16 as dire cted 1 TABL ET Q 4 HOUR S PRN PAIN DO NOT TORI Choudhary ON THIS MED 05/01 aborted Statu s: 'Curr ent'; Not Available Not availab le 0 Not Available Home Maria [facility] 05/01/2024 13:39:59 zolpi dem 5 mg table t 4 13:26:56 05/01 aborted Not Available Not availab le 0 Not Available Home [facility] 05/01/2024 13:41:09 Binax NOW COVID -19 Ag Self Test kit 4 13:26:56 TEST DIRE CTED TODA Y 05/01 aborted Not Available Not availab le 0 Not Available [facility] 05/01/2024 14:08:27 Linze ss 4 13:50:16 Linz ess 290M CG Caps ule 05/01 aborted Statu s: 'Curr ent'; Not Available Not availab le 0 Not Available [facility] 05/01/2024 14:09:40 iprat ropiu m bromi de 21 mcg (0.03 %) nasal spray 4 13:26:56 USE 1 SPRA Y IN EACH NOST RIL TWIC E TAI Y NEED ED FOR [employer] L ERICA FITO ON 05/01 aborted Not Available Not availab le 0 Not Available [facility] 05/01/2024 14:10:01 neomy gerry 3.5 mg/g- polym yxin B 10,00 0 unit/ g-dex ameth 0.1 % eye oint 4 13:26:56 APPL Y 1 INCH IN LEFT EYE FOUR TIME S TAI Y FOR 2 WEEK S THEN STOP 05/01 aborted Not Available Not availab le 0 Not Available [facility] 05/01/2024 14:10:07 aceta minop hen ER 650 mg table t,ext ended relea se 5 02:18:28 TAKE 1 TABL ET BY MOUT H FOUR TIME S TAI Y active Not Available Not availab le 0 Not Available Not Available [facility] 11/06/2024 02:18:28 calci um 600 mg (as carbo sonny) -benito min D3 20 mcg (800 unit) table t 5 02:18:28 TAKE 1 TABL ET BY MOUT H EVER Y DAY. . active Not Available Not availab le 0 Not Available Not Available [facility] 11/06/2024 02:18:28 diaze tootie 2 mg table t 5 02:18:28 TAKE 2 TABL ETS BY MOUT H THRE E TIME S TAI Y active Not Available Not availab le 0 Not Available Not Available [facility] 11/06/2024 02:18:28 dicyc lomin e 10 mg capsu le 5 02:18:28 active Not Available Not availab le 0 Not Available Not Available [facility] 11/06/2024 02:18:28 magne sium 500 mg (as magne sium oxide ) table t 5 02:18:28 TAKE 1 TABL ET BY MOUT H TAI Y active Not Available Not availab le 0 Not Available Not Available [facility] 11/06/2024 02:18:28 diaze tootie 5 mg table t 5 11:05:12 active Not Available Not availab le 0 Not Available Not Available indira - External Data Service - prod 03/17/2025 11:05:12 cepha lexin 500 mg capsu le 5 11:05:17 TAKE 1 CAPS ULE BY MOUT H THRE E TIME S TAI Y 03/17 [...] Not availab le 0 Not Available [facility] 03/28/2025 09:40:53 aspir in 81 mg table t,del ayed relea se 4 05:54:42 TAKE 1 TABL ET BY JACQUELINE Pham TWIC E TAI Y 03/28 aborted Not Available Not availab le 0 Not Available [facility] 03/28/2025 09:40:54 bupro pion HCl SR 150 mg table t,12 hr susta ined- relea se 5 11:05:14 TAKE 1 TABL ET BY JACQUELINE Pham TWIC E TAI Y 03/28 aborted Not Available Not availab le 0 Not Available [facility] 03/28/2025 09:40:54 olivia styra mine (with sugar ) 4 gram powde r for susp in a packe t 4 13:26:56 DISS OLVE 1 PACK ET IN 2 - 6 OZ OF WATE R OR NONC ARBO SONNY D BEVE RAGE THRE E TIME S TAI Y BEFO RE A MEAL 03/28 aborted Not Available Not availab le 0 Not Available [facility] 03/28/2025 09:40:54 dulox etine 30 mg capsu le,de layed relea se 5 11:05:13 TAKE 1 CAPS ULE BY JACQUELINE Pham EVER Y DAY. TAKE WITH 60 MG CAPS ULE FOR A TOTA L TAI Y DOSE OF 90 MG TAI Y 03/28 aborted Not Available Not availab le 0 Not Available [facility] 03/28/2025 09:40:54 eryth romyc in 5 mg/gr am (0.5 %) eye ointm ent 4 05:54:42 03/28 aborted Not Available Not availab le 0 Not Available [facility] 03/28/2025 09:40:54 eszop iclon e 2 mg table t 5 06:10:05 03/28 aborted Not Available Not availab le 0 Not Available [facility] 03/28/2025 09:40:54 gabap entin 600 mg table t 5 11:05:16 TAKE 1 TABL ET BY JACQUELINE Pham THRE E TIME S TAI Y 03/28 aborted Not Available Not availab le 0 Not Available [facility] 03/28/2025 09:40:54 hydro codon e 5 mg-ac etami nophe n 325 mg table t 5 11:05:14 TAKE 1 TABL ET BY JACQUELINE ODOM Y 8 HOUR S NEED ED FOR SUDHIR RE PAIN FOR 5 DAY 03/28 aborted Not Available Not availab le 0 Not Available [facility] 03/28/2025 09:40:54 hydro xyzin e HCl 50 mg table t 5 11:05:16 TAKE 1 TABL ET BY MOUT H THRE E TIME S TAI Y 03/28 aborted Not Available Not availab le 0 Not Available [facility] 03/28/2025 09:40:54 hydro xyzin e pamoa te 25 mg capsu le 4 13:26:56 TAKE 1 TO 2 CAPS ULES BY MOUT Ankit THRE E TIME S TAI Y NEED ED 03/28 aborted Not Available Not availab le 0 Not Available [facility] 03/28/2025 09:40:54 methy lpred nisol one 4 mg table ts in a dose pack 5 02:18:28 FOLL OW PACK AGE DIRE CTIO NS 03/28 aborted Not Available Not availab le 0 Not Available [facility]Bella [facility] 03/28/2025 09:40:54 nalox one 4 [...] Not availab le 0 Not Available [facility] 03/28/2025 09:40:54 predn isone 10 mg table t 5 06:10:05 03/28 aborted Not Available Not availab le 0 Not Available [facility] 03/28/2025 09:40:54 predn isone 20 mg table t 4 13:26:56 TAKE 1 TABL ET BY MOJORGE H EVER Y MORN ING 03/28 aborted Not Available Not availab le 0 Not Available [facility]Bella [facility] 03/28/2025 09:40:54 predn isone 5 mg table t 4 13:26:56 SEE TAPE R DIRE CTIO NS AURELIANO CHED 03/28 aborted Not Available Not availab le 0 Not Available [facility] 03/28/2025 09:40:54 timol ol fer te 0.5 % eye drops 5 11:05:16 INST ILL 1 DROP IN BOTH EYES TWIC E TAI Y FOR 2 WEEK S 03/28 aborted Not Available Not availab le 0 Not Available [facility] 03/28/2025 09:40:54 diclo fenac 1 % topic al gel 5 02:18:28 APPL Y 2 GRAM S TO THE LEFT THUM B EVER Y 4 HOUR S. DO NOT USE MORE TAHN 12 GRAM S A DAY 03/28 aborted Not Available Not availab le 0 Not Available [facility]Bella [facility] 03/28/2025 09:40:55 gabap entin 100 mg capsu le 5 11:05:15 03/28 aborted Not Available Not availab le 0 Not Available [facility]Bella [facility] 03/28/2025 09:40:55 hydro xyzin e HCl 25 mg table t 4 13:26:56 TAKE 1 TO 2 TABL ETS BY JACQUELINE Pham THRE E TIME S TAI Y NEED ED 03/28 aborted Not Available Not availab le 0 Not Available [facility]Bella [facility] 03/28/2025 09:40:55 ketor olac 0.5 % eye drops 5 11:05:16 INST ILL 1 DROP INTO THE AFFE CTED EYE THRE E TIME S TAI Y STAR TING 2 DAYS PRIO R TO SURG SHIRLEY AND TAPE R DIRE CTED 03/28 aborted Not Available Not availab le 0 Not Available SULLY HERNANDEZ [facility] 03/28/2025 09:40:55 topir amate 50 mg table t 5 11:05:16 TAKE 1 TABL ET BY MOUT H TWIC E TAI Y FOR 2 WEEK S THEN TAKE 2 TABL ETS BY MOUT H TWIC E TAI Y FOR 30 DAYS DIRE CTED 03/28 aborted Not Available Not availab le 0 Not Available SULLY HERNANDEZ [facility] 03/28/2025 09:40:55 zolpi dem 10 mg table t 4 05:54:42 03/28 aborted Not Available Not availab le 0 Not Available SULLY HERNANDEZ [facility] 03/28/2025 09:40:55 mirab egron ER [...] 13:03:33 donep ezil 10 mg table t 13:03:33 TAKE 1 TABL ET BY MOUT [...] 13:03:33 gabap entin 800 mg table t 13:03:33 TAKE 1 TABL ET BY MOUT [...] 60 mg capsu le,de layed relea se 13:03:34 TAKE 1 CAPS ULE BY MOUT [...] Updated DateTime 11/06/2024 162.56 cm 34.3 kg/m2 40216.47 g Nhi Perry [place] [facility] [place] [facility] 11/06/2024 14:20:42 Date Recorded Body height Body mass index (BMI) Body weight Provider Name and Address Organization Details Last Updated DateTime 03/20/2025 162.56 cm 34.3 kg/m2 11058.47 g Nhi Perry [facility] 03/20/2025 11:04:49 Date Recorded Body height Body mass index (BMI) Body weight Provider Name and Address Organization Details Last Updated DateTime 03/28/2025 162.56 cm 34.3 kg/m2 01440.47 g SULLY RAWLSO [facility] 03/28/2025 09:41:04 Date Recorded Body height Body mass index (BMI) Body weight Provider Name and Address Organization Details Last Updated DateTime 03/29/2025 157.48 cm 31.3 kg/m2 26419.3 g NICO WILLIAMSON [facility] 03/29/2025 09:11:13 Date Recorded Body height Body mass index (BMI) Body weight Provider Name and Address Organization Details Last Updated DateTime 05/30/2025 157.48 cm 31.3 kg/m2 46032.3 g SULLYBella RAWLSO [facility] 05/30/2025 10:30:32 Social History Question Answer Notes LastModified by Organizat ion Details LastModified Time Tobacco Smoking Status Former Smoker SULLY HERNANDEZ Replaced by [facility] 03/28/2025 09:40:55 How Many Times Per Week Do You Consume Alcohol? Less Than 1 Time Per Week SULLYBella RAWLSO Replaced by [facility] 03/28/2025 09:40:55 Which of your hands is dominant? Right Carolina Bowman PA-C [facility] [address], [place], [address], [facility] 11/06/2024 16:21:21 How many years have you smoked tobacco? 33 SULLYBella WESTHERNANDEZ [facility] 03/28/2025 09:40:55 When did you quit smoking? 6-10 years since last cigarette SULLYBella RAWLSO [facility] 03/28/2025 09:40:55 What is your relationship status? SULLYBella EWSTHERNANDEZ [facility] [facility] 03/28/2025 09:40:55 Social History Observation Description Date Observed Sex Unknown 07/11/2025 Legal Sex Female Status Not (finding) 08/15/20 25 No social history survey screeners recorded No social history SDOH screeners recorded Functional Status Question Answer Note LastModified by [employer] Details LastModified Time Do you or have you ever used any other forms of tobacco or nicotine? Yes SULLY HERNANDEZ Replaced by [facility] 03/28/2025 09:40:55 Do you or have you ever used e-cigarettes or vape? Never used electronic cigarettes SULLYBella HERNANDEZ Replaced by [facility] 03/28/2025 09:40:55 How many times per week do you consume alcohol? Less than 1 time per week [facility]Bella [facility] 03/28/2025 09:40:55 Do you use any illicit or recreational drugs? No SULLYBella [facility]formerly [facility] 03/28/2025 09:40:55 Date Assessment Value LastModified by [employer] Details LastModified Time 08/01/2024 Lower Extremity Functional Scale 43 DONTE LOPEZ DPT Replaced by [facility] 08/01/2024 10:21:51 No Functional SDOH screeners recorded [...] Disease N Heart Trouble N Heart Attack (SD) N Gastrointestinal Disease N Cholesterol N Diabetes [...] ICD10 Code Diagnosis IMO Codes Diagnosis Note [id number] Amena Ali, PA-C [facility] [address] [place] [address] 05/01/2024 13:21:17 05/22/2024 16:15:52 Sprain of left ankle [id number] S93.402D Derangemen t of left ankle joint [id number] M24.313 [id number] Amena Dunlap PA-C [facility] [address] [place] [address] 05/12/2024 08:09:56 06/02/2024 10:16:01 Pain of left ankle joint [id number] M25.974 [id number] Amena Dunlap PA-C [facility] [address] [place] [address] 06/01/2024 10:06:21 06/27/2024 09:33:18 Pain in left foot [id number] 28624 M79.672 Sprain of ankle [id number] S93.402A [id number] Teresa Johnston PA-C [facility] [address] [place] [address] 06/07/2024 09:50:43 06/30/2024 12:06:10 Sprain of ankle [id number] S93.402A [id number] Derek Anglin MD [facility] [address] [place] [address] 07/05/2024 08:35:12 08/04/2024 09:01:21 Pain of left forearm 0550447789 81567 M79.664 7350384 Pain of elbow region 743 35303 M25.522 282104 Bursitis o f olecranon of left elbow 7438242408 80371 M70.22 [id number] Contusion of left forearm 3153467048 4158972 S50.12XD [id number] Amena Dunlap PA-C [facility] [address] [place] [address] 07/11/2024 08:58:23 07/26/2024 12:13:12 Sprain of left ankle [id number] S93.402A [id number] DONTE LARSENTAINE, DPT [facility] [address] [place] [address] 07/31/2024 15:01:07 07/31/2024 16:05:20 Sprain of left ankle [id number] S93.402D [id number] Nicole Formejeste r, COIN COLLECTOR [facility] [address] [place] [address] 08/04/2024 09:13:24 08/04/2024 10:10:33 Sprain of left ankle 6103637018 6336939 S93.402D [id number] Nicole Formejeste r, COIN COLLECTOR [facility] [address] [place] [address] 08/08/2024 10:17:07 08/08/2024 11:28:09 Sprain of left ankle 4458510094 6472942 S93.402D [id number] Nicole Formejeste r, COIN COLLECTOR [facility] [address] [place] [address] 08/24/2024 13:16:14 08/24/2024 16:31:07 Sprain of left ankle 7678017033 [id number] S93.402D [id number] Nicole Formejeste r, COIN COLLECTOR [facility] [address] [place] [address] 08/28/2024 14:58:40 08/28/2024 16:02:34 Sprain of left ankle [id number] S93.402D [id number] FAVIAN Orellana - [facility] [address] [place] [address] 09/05/2024 13:36:48 09/15/2024 10:35:47 Sprain of left ankle [id number] S93.492D [id number] Carolina Bowman PA-C [facility] - [facility] [address] [place] [address] 11/06/2024 13:53:42 11/20/2024 13:48:23 Pain of right shoulder joint 8749942752 1294777 M25.511 [id number] Ranjit Belle PA-C [facility] [address] [place] [address] 03/20/2025 10:54:09 04/02/2025 10:46:21 Rotator cuff arthropathy of right shoulder [id number] 4517071 M75.101 M12.811 [id number] MD [facility] [address] [place] [address] 03/28/2025 09:33:13 04/02/2025 15:32:26 Pain of bilateral hands [id number] 7830264 M79.641 M79.642 [id number] Bilateral carpal tunnel syndrome 4541144589 5237253 G56.03 109814 Arthritis 3500880 M19.90 025105 [id number] F[facility] - [place] [address] [place] [address] 03/29/2025 08:21:27 04/05/2025 08:31:08 Pain of hip region 92601258 M25.552 550210 Closed fra cture of hip 940826295 S72.002A [id number] MD [facility] [place] [address] [place] [address] 05/30/2025 09:48:34 06/06/2025 13:28:19 Bilateral carpal tunnel syndrome [id number] 6833699 G56.03 [id number] Health Concerns Section Related Observation LastModified by Organization Deta[employer] ls LastModified Time None Recorded Concern Status LastModified by Organization Details LastModified Time None Recorded SDOH Concern Status LastModified by Organization Detai ls LastModified Time None Recorded Advance Directives Directive None Recorded Payers Insurance Date Sequence Insurance Name Policy Number Policy Womack Covered Member ID Womack Member ID Guarantor Name 05/30/2025 SAFETY INSURANCE Halle Suárez 05/30/2025 1 MEDICARE B-[place]: [employer] Edu Suárez [id number] Halle Suárez 07/05/2025 2 [place] [facility] PLAN Edu Suárez [id number] Halle Suárez Notes Date Note Type Note Provider Name and Address Organization Details Recorded Time 11/06/2024 text/html I am seeing the patient today under the supervision of Dr. Middleton who was available but did not see the patient. CLINICAL UPDATE:58-year-old [id number] female patient presents today for right shoulder [...] Right shoulder ordered, obtained and reviewed at [facility] today demonstrates cystic changes of the humeral [...] and agrees with the plan. Speech recognition sign manufacturer software was used to create portions of this document. An attempt at proofreading has been made to minimize errors. Please call for corrections. Carolina Bowman PA-C [address], [place], [address], [facility] 11/06/2024 16:23:52 03/20/2025 text/html I am seeing [...] for MRI review, sooner if symptoms dictate. [facility] speech recognition sign manufacturer software was used to create portions of this document. An attempt at proofreading has been made to minimize errors. Please call for corrections. Ranjit Belle PA-C [address], [place], [address], [facility] 03/20/2025 12:09:50 03/28/2025 [...] X-rays ordered, obtained, and reviewed today at [facility]: PA, lateral, oblique views of both hands [...] recommended the patient be evaluated by a sectional belt mold assembler to rule out the presence of inflammatory arthropathy. Her rapid progression in terms of swelling and pain would be consistent with that diagnosis. She will follow-up as directed. Derek Anglin MD [address] [place] [address] [address], [place], [address], [facility] 03/28/2025 13:08:05 03/29/2025 text/html I am seeing [...] visit note. This note was generated with [facility] speech recognition sign manufacturer dictation software. Please excuse any errors that may have been overlooked during review of this note. Sometimes, these errors may affect the content or meaning of a given sentence. Please call for corrections. Miracle Vines PA-C [address] [facility] [address] [facility], [place], [address], [facility] 03/29/2025 09:42:28 05/30/2025 text/html ROS as noted in the HPI Diagnosis: Possible bilateral recurrent carpal tunnel syndrome The patient returns at her request. Since her last visit she underwent an EMG/NCS of her bilateral upper extremities. She reports that she was eval by sectional belt mold assembler who recommended a neurologist. Past family, medical, [...] follow-up at her discretion. Derek Anglin MD [address] [place] [address] [address], [place], [address], [facility] 05/30/2025 11:35:03 Care Team Name Role Member ID Specialty Address Phone MEGHAN TRUJILLO MD Primary Care Provider [id number] [facility], [place] OBGyn Episode No OBEpisode recorded.
== END 2025-08-15 10:48 | disposition home or self-care (01) ==
LOC: HO.PMC 10:08
PROVIDERS: Visit Provider Internal Medicine
DX: G58.8 Other specified mononeuropathies (principal)
CPT/HCPCS: 99024

== ENCOUNTER → 2025-08-15 10:08 | Outpatient (BNVA) | payer MEDICARE, MEDICAID, SELFPAY | PROVIDERS: Visit Provider Internal Medicine | DX: G58.8 Other specified mononeuropathies (principal); R55 Syncope and collapse; Z87.891 Personal history of nicotine dependence | CPT/HCPCS: 99212 ==

== ENCOUNTER 2025-08-20 12:05 | Outpatient (AMB) | payer MEDICARE, MEDICAID, SELFPAY ==
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
[2025-08-20 12:47] VITALS: BP 151/69; PULSE 84
[2025-08-20 12:49] VITALS: BP 143/72; PULSE 85
--- OUTSIDE RECORDS SUMMARY | 2025-08-20 14:11 | XMS_ITS | Clinical Summary ---
Author Organization [facility] Address [address] [place] [address] Phone Care Team Providers Care Edger Machine Setter Name Role Phone Johann Trujillo MD Primary Care Provider +1- [phone] Allergies Active Allergy Reactions Criticality Noted Date Comments Codeine Nausea and/or Vomiting 11/28/2014 Iodinated Contrast Media 11/28/2014 UNSPECIFIED Contrast Media - [place] warm and sick Adhesive Tape-Silicones Rash Low 12/19/2024 Medications solifenacin (VESICARE) 10 MG tablet Take 10 mg by mouth nightly at bedtime. Active ID-duloxetine DR ([id number]) 60 mg capsule nightly at bedtime. 07/02/2021 [...] 04/23/2022 Active ID-vitamin D3 or placebo (14) 19251 iu capsule Active hydrOXYzine (VISTARIL) 25 MG [...] Team Description 06/21/2025 3:45 PM EDT Telemedicine [facility] [address] [place] [address], 4th Floor, [address] [place] [address] Johann Francis MD Bilateral occipital neuralgia (Primary [...] this topic Medical Devices Implanted Type Area Salon Coordinator Device Identifier Shelf Expiration Date Model / Serial / Lot Irving-09/27/2022 Implanted:2022 (Quantity not on file) Irving Insurance HEALTH MEDICARE PART A & B [address] [place], [place] [address]HEALTH MEDICARE PART A & B [address] [place], [place] [address] [place] [address] PART A & B ([address] MEDICARE PART A & B [place] B Care Teams Edger Machine Setter Relationship Specialty Start Date End Date Johann Trujillo MD [address] [place] [address] PCP - General Internal Medicine 01/29/23 Additional Source Comments The information contained in this document represents components of the legal health record. It is not the complete legal health record.[facility]
--- OUTSIDE RECORDS SUMMARY | 2025-08-20 14:11 | XMS_ITS | Clinical Summary ---
Author Organization [facility] Address [address] [place] [address] Care Team Providers Care Rivet Heater Name Role Phone Tito Alvarado MD Primary Care Provider + [phone] Allergies Active Allergy Reactions Criticality Noted Date [...] to complete this topic Insurance Care Teams Rivet Heater Relationship Specialty Start Date End Date Tito Alvarado MD [address] [place] [address] PCP - General Internal Medicine 05/06/22
--- OUTSIDE RECORDS SUMMARY | 2025-08-20 14:11 | XMS_ITS | Continuity of Care Document ---
Author Organization [facility], ZULY Donavan 1st Floor Address [address] [place] [address] Care Team Providers Care Forensic Toxicologist Name Role Phone VickieharpalMeghan Primary Care Provider [...] conduction study No observation recorded. Not Available [facility] Scheduling Dept , [address] [place] [address] , [address], , 05/28/2025 12:51:30 Result Notes None recorded. Problems Name Problem SNOMED Code Status Onset Date Resolution Date Notes Provider Name and Address Organization Details Recorded Time No complaint s [id number] Active Status: 'I'; Not Available [facility] 4 09:15:56 Carpal tunnel syndrome of right wrist 351252202875 108 Active 2014 Problem Code: G56.01; Problem Code Type: ICD-10; Status: 'A'; Not Available [facility] 4 11:28:59 Trigger thumb of right hand 860544204226 105 Active 2017 Problem Code: M65.311; Problem Code Type: ICD-10; Status: 'A'; Not Available [facility] 4 11:28:59 Pain of right shoulder joint 106529603678 37787 Active 2024 Carolina Bowman PA-C [address], [place], [address] , [facility] 5 11:23:25 Pain of hip region 68092262 Active 2024 [facility] 5 09:11:40 Closed fracture of hip 116079648 Active 2024 Miracle Vines PA-C [address], [place], [address] , [facility] 5 09:42:02 Problem Notes None recorded. Procedures Surgical History Date Name Laterality Status Provider Name and Address Organization Details Recorded Time 05/30/20 25 Carpal Tunnel Kenalog 1cc Injection, Bilateral completed Derek Anglin MD [address], [place], [address], [facility] 05/30/2025 11:34:37 11/07/19 25 Sports Shoulder completed Carolina Bowman PA-C [address], [place], [address], [facility] 11/06/2024 11:26:48 08/28/19 25 [address]2714 Therapeutic Exercise (1:1) completed Nicole Maynard PTA [address], [place], [address], [facility] 08/28/2024 14:52:23 08/24/19 25 06753 Therapeutic Exercise (1:1) completed Nicole Maynard PTA [address], [place], [address], [facility] 08/24/2024 12:36:02 08/24/19 55884 Therapeutic Exercise (1:1) cancelled Nicole Maynard, GLASS PRODUCTION MACHINE OPERATOR [address], [place], [address], [facility] 08/22/2024 12:17:24 08/08/20 99295 Therapeutic Exercise (1:1) completed Nicole Maynard, GLASS PRODUCTION MACHINE OPERATOR [address], [place], [address], [facility] 08/08/2024 11:18:32 08/04/20 93026 Therapeutic Exercise (1:1) completed Nicole Maynard, GLASS PRODUCTION MACHINE OPERATOR [address], [place], [address], [facility] 08/04/2024 10:37:51 07/31/20 88197 Therapeutic Exercise (1:1) completed DONTE LOPEZ DPT [address], [place], [address], [facility] 08/01/2024 10:27:32 07/31/20 99973: Low complexity PT Eval completed DONTE LOPEZ DPT [address], [place], [address], [facility] 08/01/2024 10:28:04 Knee Surgery completed SULLY HERNANDEZ [facility] 03/28/2025 09:40:56 Shoulder Surgery completed SULLY HERNANDEZ [facility] 03/28/2025 09:40:56 Orthopedic Surgery completed SULLY HERNANDEZ [facility] 03/28/2025 09:40:56 Other completed SULLY HERNANDEZ [facility] 03/28/2025 09:40:56 Imaging Results Imaging Date Name Status LastModifiedBy Organization Detail LastModifiedTime 05/25/2025 electromyogram + nerve conduction study completed Not Available [facility] Scheduling Dept , [address] [place] [address] , [place] , [address], [place] , 05/28/2025 12:51:30 Procedure Notes None recorded. Medical Equipment None Reported. Allergies Allergen ID Allergen Name Allergen Category Reaction Reaction Severity Criticality Documentation Date Start Date Code Code System Note Provider Name and Address Organization Details Recorded Time 783950 Tegaderm medicatio n Not available Not available Not available 03/29/2025 NICO martinez [facility] 5 09:11:23 13537 Iodinated contrast media (substanc e) medicatio n Not available Not available Not available 10/25/20232005 74309 2003 SNOMED SULLY HERNANDEZLYUDMILA martinez [facility] 5 09:40:53 81074 codeine medicatio n Not available Not available Not available 10/25/20232014 2670 RxNorm Not Available [facility] 13:40:16 Medications Name Authored On Sig Start Date Stop Date Status Note Indication Fill Status Repeat Number Dispense Quantity LastModified by Organization Details LastModified Time solif enaci n 10 mg table t 4 13:26:56 TAKE 1 TABL ET BY MOUT H EVER Y DAY active Not Available Not availab le 0 Not Available Not Available [facility] 05/01/2024 13:26:56 oxyco done HCl-o xycod one-A SA 4 13:50:16 as dire cted 1 TABL ET Q 4 HOUR S PRN PAIN DO NOT TORI Choudhary ON THIS MED 05/01 aborted Statu s: 'Curr ent'; Not Available Not availab le 0 Not Available [facility] 05/01/2024 13:39:59 zolpi dem 5 mg table t 4 13:26:56 05/01 aborted Not Available Not availab le 0 Not Available [facility] 05/01/2024 13:41:09 Binax NOW COVID -19 Ag Self Test kit 13:26:56 TEST DIRE CTED TODA Y 09/09 /2024 aborted Not Available Not availab le 0 Not Available [facility] 05/01/2024 14:08:27 Linze ss 4 13:50:16 Linz ess 290M CG Caps ule 05/01 aborted Statu s: 'Curr ent'; Not Available Not availab le 0 Not Available [facility] 05/01/2024 14:09:40 iprat ropiu m bromi de 21 mcg (0.03 %) nasal spray 4 13:26:56 USE 1 SPRA Y IN EACH NOST RIL TWIC E TAI Y NEED ED FOR [facility] L ERICA FITO ON 05/01 aborted Not Available Not availab le 0 Not Available [facility] 05/01/2024 14:10:01 neomy gerry 3.5 mg/g- polym yxin B 10,00 0 unit/ g-dex ameth 0.1 % eye oint 4 13:26:56 APPL Y 1 INCH IN LEFT EYE FOUR TIME S TAI Y FOR 2 WEEK S THEN STOP 05/01 aborted Not Available Not availab le 0 Not Available [facility] 05/01/2024 14:10:07 aceta minop hen ER 650 mg table t,ext ended relea se 5 02:18:28 TAKE 1 TABL ET BY JACQUELINE H FOUR TIME S TAI Y active Not Available Not availab le 0 Not Available Not Available [facility] 11/06/2024 02:18:28 calci um 600 mg (as carbo sonny) -benito min D3 20 mcg (800 unit) table t 5 02:18:28 TAKE 1 TABL ET BY JACQUELINE Pham EVER Y DAY. . active Not Available Not availab le 0 Not Available Not Available [facility] 11/06/2024 02:18:28 diaze tootie 2 mg table t 5 02:18:28 TAKE 2 TABL ETS BY JACQUELINE Pham THRE E TIME S TAI Y active Not Available Not availab le 0 Not Available Not Available [facility] 11/06/2024 02:18:28 dicyc lomin e 10 mg capsu le 5 02:18:28 active Not Available Not availab le 0 Not Available Not Available [facility] 11/06/2024 02:18:28 magne sium 500 mg (as magne sium oxide ) table t 5 02:18:28 TAKE 1 TABL ET BY JACQUELINE MCCABEL Y active Not Available Not availab le 0 Not Available Not Available [facility] 11/06/2024 02:18:28 diaze tootie 5 mg table [...] Available Not availab le 0 Not Available [facility] 03/28/2025 09:40:53 aspir in 81 mg table t,del ayed relea se 4 05:54:42 TAKE 1 TABL ET BY MOUT H TWIC E TAI Y 03/28 aborted Not Available Not availab le 0 Not Available [facility] 03/28/2025 09:40:54 bupro pion HCl SR 150 mg table t,12 hr susta ined- relea se 5 11:05:14 TAKE 1 TABL ET BY MOUT H TWIC E TAI Y 03/28 aborted Not Available Not availab le 0 Not Available [facility] 03/28/2025 09:40:54 olivia styra [...] Not availab le 0 Not Available SULLY [facility] 03/28/2025 09:40:54 dulox etine 30 mg capsu le,de layed relea se 5 11:05:13 TAKE 1 CAPS ULE BY MOUT H EVER Y DAY. TAKE WITH 60 MG CAPS ULE FOR A TOTA L TAI Y DOSE OF 90 MG TAI Y 03/28 aborted Not Available Not availab le 0 Not Available SLULY [facility] 03/28/2025 09:40:54 eryth romyc in 5 mg/gr am (0.5 %) eye ointm ent 4 05:54:42 03/28 aborted Not Available Not availab le 0 Not Available SULLY [facility] 03/28/2025 09:40:54 eszop iclon e 2 mg table t 5 06:10:05 03/28 aborted Not Available Not availab le 0 Not Available SULLY [facility] 03/28/2025 09:40:54 gabap entin 600 mg table t 5 11:05:16 TAKE 1 TABL ET BY MOUT H THRE E TIME S TAI Y 03/28 aborted Not Available Not availab le 0 Not Available [facility] 03/28/2025 09:40:54 hydro codon e 5 mg-ac etami nophe n 325 mg table t 5 11:05:14 TAKE 1 TABL ET BY MOUT H EVER Y 8 HOUR S NEED ED FOR SUDHIR RE PAIN FOR 5 DAY 03/28 aborted Not Available Not availab le 0 Not Available [facility] 03/28/2025 09:40:54 hydro xyzin e HCl 50 mg table t 5 11:05:16 TAKE 1 TABL ET BY JACQUELINE H THRE E TIME S TAI Y 03/28 aborted Not Available Not availab le 0 Not Available [facility] 03/28/2025 09:40:54 hydro xyzin e pamoa te 25 mg capsu le 4 13:26:56 TAKE 1 TO 2 CAPS ULES BY JACQUELINE Pham THRE E TIME S TAI Y NEED ED 03/28 aborted Not Available Not availab le 0 Not Available [facility] 03/28/2025 09:40:54 methy lpred nisol one 4 mg table ts in a dose pack 5 02:18:28 FOLL OW PACK AGE DIRE CTIO NS 03/28 aborted Not Available Not availab le 0 Not Available [facility] 03/28/2025 09:40:54 nalox one 4 mg/ac tuati on nasal spray 4 05:59:17 INST ILL 1 SPRA Y INTO THE NOST RIL MAY REPE AT DOSE IN OTHE R NOST RIL GIVE THE TIM TION AL DOSE EVER Y 2-3 BREANNA VITA UNTI L RESP ONSE OR MEDI GENOVEVA ASSI BRENDAN CE 03/28 aborted Not Available Not availab le 0 Not Available [facility] 03/28/2025 09:40:54 predn isone 10 mg table t 5 06:10:05 03/28 aborted Not Available Not availab le 0 Not Available [facility] 03/28/2025 09:40:54 predn isone 20 mg table t 4 13:26:56 TAKE 1 TABL ET BY JACQUELINE ODOM Y MORN ING 03/28 aborted Not Available Not availab le 0 Not Available [facility] 03/28/2025 09:40:54 predn isone 5 mg table t 4 13:26:56 SEE TAPE R DIRE CTIO NS AURELIANO CHED 03/28 aborted Not Available Not availab le 0 Not Available [facility] 03/28/2025 09:40:54 timol ol fer te 0.5 % eye drops 5 11:05:16 INST ILL 1 DROP IN BOTH EYES TWIC E TAI Y FOR 2 WEEK S 03/28 aborted Not Available Not availab le 0 Not Available [facility] 03/28/2025 09:40:54 diclo fenac 1 % topic al gel 5 02:18:28 APPL Y 2 GRAM S TO THE LEFT THUM B EVER Y 4 HOUR S. DO NOT USE MORE TAHN 12 GRAM S A DAY 03/28 aborted Not Available Not availab le 0 Not Available SULLY [facility] 03/28/2025 09:40:55 gabap entin 100 mg capsu le 5 11:05:15 03/28 aborted Not Available Not availab le 0 Not Available SULLY [facility] 03/28/2025 09:40:55 hydro xyzin e HCl 25 mg table t 4 13:26:56 TAKE 1 TO 2 TABL ETS BY JACQUELINE Pham THRE E TIME S TAI Y NEED ED 03/28 aborted Not Available Not availab le 0 Not Available SULLY [facility] 03/28/2025 09:40:55 ketor olac 0.5 % eye drops 5 11:05:16 INST ILL 1 DROP INTO THE AFFE CTED EYE THRE E TIME S TAI Y STAR TING 2 DAYS PRIO R TO SURG SHIRLEY AND TAPE R DIRE CTED 03/28 aborted Not Available Not availab le 0 Not Available [facility] 03/28/2025 09:40:55 topir amate 50 mg table t 5 11:05:16 TAKE 1 TABL ET BY JACQUELINE Pham TWJANE E TAI Y FOR 2 WEEK S THEN TAKE 2 TABL ETS BY MOUT H TWIC E TAI Y FOR 30 DAYS DIRE CTED 03/28 aborted Not Available Not availab le 0 Not Available [facility] HERNANDEZ [place] [facility] [place] [facility] 03/28/2025 09:40:55 zolpi dem 10 mg table t 4 05:54:42 03/28 aborted Not Available Not availab le 0 Not Available SULLY HERNANDEZ [facility] [place] [facility] 03/28/2025 09:40:55 mirab egron ER 25 mg [...] Updated DateTime 05/30/2025 157.48 cm 31.3 kg/m2 93907.3 g SULLY HERNANDEZ [facility] 05/30/2025 10:30:32 Social History Question Answer Notes LastModified by Organizat ion Details LastModified Time Tobacco Smoking Status Former Smoker SULLY HERNANDEZ [facility] 03/28/2025 09:40:55 How Many Times Per Week Do You Consume Alcohol? Less Than 1 Time Per Week SULLY HERNANDEZ [facility] 03/28/2025 09:40:55 Which of your hands is dominant? Right Carolina Bowman PA-C [address], [place], [address], [facility] 11/06/2024 16:21:21 How many years have you smoked tobacco? 33 SULYLBella HERNANDEZ [facility] 03/28/2025 09:40:55 When did you quit smoking? 6-10 years since last cigarette SULLYBella HERNANDEZ [facility] 03/28/2025 09:40:55 What is your relationship status? SULLYBella HERNANDEZ [facility] 03/28/2025 09:40:55 Social History Observation Description Date Observed Sex Unknown 05/30/2025 Legal Sex Female Status Not (finding) 08/20/20 25 No social history survey screeners recorded No social history SDOH screeners recorded Functional Status Question Answer Note LastModified by Organizat ion Details LastModified Time Do you or have you ever used any other forms of tobacco or nicotine? Yes SULLYBella HERNANDEZ [facility] 03/28/2025 09:40:55 Do you or have you ever used e-cigarettes or vape? Never used electronic cigarettes SULLYBella HERNANDEZ [facility] 03/28/2025 09:40:55 How many times per week do you consume alcohol? Less than 1 time per week SULLYBella HERNANDEZ [facility] 03/28/2025 09:40:55 Do you use any illicit or recreational drugs? No [facility] 03/28/2025 09:40:55 Date Assessment Value LastModified by Organizat ion Details LastModified Time 08/01/2024 Lower Extremity Functional Scale 43 DONTE LOPEZ DPT [facility] 08/01/2024 10:21:51 No Functional SDOH screeners recorded Mental Status None recorded. No Mental Screening assessment recorded No Mental SDOH screeners recorded Family History Nothing Reported. Medical History Condition Response Coronary Artery Disease N Anxiety/Depression Y Emphysema N COPD N Pacemaker N Vascular Disease N Heart Trouble N Gastrointestinal Disease N Autoimmune disease N Inflammatory Joint disease N Orthotics N Arthritis Y Blood Clot N Acid Reflux (GERD) N Cancer N Stroke N Circulation Problems N Rheumatoid Arthritis N Arrhythmia N Headaches Y Fibromyalgia Y Allergies/Hayfever N Breathing or lung disorders N Nerve Disorders Y Thyroid Problems N Kidney/Bladder Problems Y Anemia N Heart Attack ([place]) N Cholesterol N Diabetes N Bleeding Disorder N Seizures/Epilepsy N AIDS/HIV N Congestive Heart Failure (CHF) N Asthma N Peripheral Vascular Disease N Sleep Apnea Y Hepatitis N Heart Disease N Pulmonary Embolism N Hypertension Y Osteoporosis Y Gynecological HistoryNo gynecological history recorded. Obstetrics History GPAL:G 0 P 0 0 0 0 Past Encounters Encounter ID Performer Location Encounter Start Date Encounter Closed Date Diagnosis/Indication Diagnosis SNOMED-CT Code Diagnosis ICD10 Code Diagnosis IMO Codes Diagnosis Note [id number] MD ZULY C[place] [address] [facility] [address] 05/30/2025 09:48:34 06/06/2025 13:28:19 Bilateral carpal tunnel syndrome 2615121681 0830398 G56.03 424774 Health Concerns Section Related Observation LastModified by Organization Detai ls LastModified Time None Recorded Concern Status LastModified by Organization Details LastModified Time None Recorded SDOH Concern Status LastModified by Organization Detai ls LastModified Time None Recorded Payers Encounter Date Sequence Insurance Name Policy Number Policy Womack Covered Member ID Womack Member ID Guarantor Name 05/30/2025 2 [place] [facility] Edu Suárez [id number] Halle Suárez 05/30/2025 1 [place] [employer] Edu Suárez [id number] Halle Suárez Notes Date Note Type Note Provider Name and Address Organization Details Recorded Time 05/30/2025 text/html ROS as noted in the HPI Diagnosis: Possible bilateral recurrent carpal tunnel syndrome The patient returns at her request. Since her last visit she underwent an EMG/NCS of her bilateral upper extremities. She reports that she was eval by steno typist who recommended a neurologist. Past family, medical, [...] follow-up at her discretion. Derek Anglin MD [address] [place] [address] [address], [place], [address], [facility] [place] [facility] 05/30/2025 11:35:03 Care Team Name Role Member ID Specialty Address Phone MEGHAN CHAVEZ MD Primary Care Provider [id number] [address] [place], [place] OBGyn Episode No OBEpisode recorded.
--- OUTSIDE RECORDS SUMMARY | 2025-08-20 14:11 | XMS_ITS | Encounter Summary ---
Author Organization [facility] Address [address] [place] [address] [place] [address] Phone Care Team Providers Care Pathology Secretary/Transcriptionist Name Role Phone Jo-Ann Cho MD Primary Care Provider [phone]- [phone] Tito Alvarado MD Primary Care Provider Pcp, Unknown Primary Care Provider Johann Schroeder MD Primary Care Provider [phone]- [phone] Encounter Details Date Type Department Care Team (Late st Contact Info) Description 04/06/2018 Prep for Surgery [facility] [address] [facility], 4th Floor, [address] [place] [address] Ann Parrish, OCTAVE BOARD RACKER [address] [place] [address] [email or web address] Social History Tobacco Use Types Packs/Day [...] documented as of this encounter Care Teams Pathology Secretary/Transcriptionist Relationship Specialty Start Date End Date Jo-Ann Cho MD [address] [place] [address] PCP - General Internal Medicine 03/30/18 07/29/21 Tito Alvarado MD [address] [place] [address] PCP - General Internal Medicine 07/30/21 12/15/22 Pcp, Unknown PCP - General 12/16/22 01/28/23 Johann Trujillo MD [address] [place] [address] PCP - General Internal Medicine 01/29/23 documented as of this encounter Additional Source Comments The information contained in this document represents components of the legal health record. It is not the complete legal health record.[facility]
--- OUTSIDE RECORDS SUMMARY | 2025-08-20 14:11 | XMS_ITS | Encounter Summary ---
Author Organization [facility] Address [address] [place] [address] [place] [phone] Phone Care Team Providers Care Crew Clerk Name Role Phone Jo-Ann Cho MD Primary Care Provider [phone]- [phone] Tito Alvarado MD Primary Care Provider Pcp, Unknown Primary Care Provider Johann Schroeder MD Primary Care Provider +1- [phone] Encounter Details Date Type Department Care Team (Late st Contact Info) Description 04/26/[address] [facility] [place] PER[facility]OPER[facility]PT [address] [place] [id number] Social History Tobacco Use Types Packs/Day Years [...] documented as of this encounter Care Teams Crew Clerk Relationship Specialty Start Date End Date Jo-Ann Cho MD [address] [place] [address] PCP - General Internal Medicine 03/30/18 07/29/21 Tito Alvarado MD [address] [place] [address] PCP - General Internal Medicine 07/30/21 12/15/22 Pcp, Unknown PCP - General 12/16/22 01/28/23 Johann Trujillo MD [address] [place] [id number] PCP - General Internal Medicine 01/29/23 documented as of this encounter Additional Source Comments The information contained in this document represents components of the legal health record. It is not the complete legal health record.[facility]
--- OUTSIDE RECORDS SUMMARY | 2025-08-20 14:11 | XMS_ITS | Encounter Summary ---
Author Organization [facility] Address [address] [place] [phone] Phone Care Team Providers Care Diesel Electrician Name Role Phone Johann Trujillo MD Primary Care Provider [phone]- [phone] Encounter Details Date Type Department Care Team (Late st Contact Info) Description 04/27/2023 Procedure Pass [facility] [place] [address] [place] [phone] Social History Tobacco Use Types Packs/Day Years [...] on filedocumented in this encounter Care Teams Diesel Electrician Relationship Specialty Start Date End Date Johann Trujillo MD [address] [place] [address] PCP - General Internal Medicine 01/29/23 documented as of this encounter Additional Source Comments The information contained in this document represents components of the legal health record. It is not the complete legal health record.[facility]
--- OUTSIDE RECORDS SUMMARY | 2025-08-20 14:11 | XMS_ITS | Data Portability ---
Author Organization [facility], [facility] Address [address] [place] [address] Care Team Providers Care Mechanical Engineering Technologist Name Role Phone Meghan Trujillo Primary Care Provider Assessment No assessment recorded. [...] PA-C [facility] [address], [place], [address], Miracle Vines PA-C 03/29/2025 16:39:03 electr omyogr am + nerve conduc tion study 2024 10:57: 37 025 Derek Anglin MD [facility] ([facility] [address], [place], [address], Not Available 05/25/2025 18:34:19 XR, hand, 3 or more view 2024 09:55: 02 025 Derek Anglin MD [facility] [address], [place], [address], Ruby Silverman 04/02/2025 15:32:26 MRI, should er, w/o contra st 2024 11:41: 41 025 Ranjit Belle PA-C [facility] ([facility] [address], [place], [address], Ranjit Belle PA-C 03/21/2025 15:57:11 XR, should er, 2 or more view 2024 14:21: 41 025 Carolina Bowman PA-C [facility] [address], [place], [address], ERIC MESSENGER 11/20/2024 13:48:24 MedicationOrders None record ed. VaccineOrders None record ed. Patient TargetsNo targets recorded. Patient InstructionsNo instructions recorded. Reason for Referral None Reported. Results Created Date Observation Date Name Description Value Unit Range Abnormal Flag Specimen Type Note LastModifiedBy Organization Detail LastModifiedTime 11/06/2024 11/06/2024 shoulder 4 view [email or web address]=emTxAmgWV2rMvdXKd5h%9MKKymYmfea4syxh%7Iz9SZk0 paWawZ8tBjODhylJr4VuXETsOgvCOS0lLbLZyhx81x1628UZ1AuVu9GODYiUhLdjYhQ Not Available [facility] , [address] , [place] , [address], , 11/06/2024 14:30:53 11/06/2024 11/06/2024 shoulder 4 view [email or web address]=ekXhYmrDE4pNpjSZf3a%2WIRdxLqtew3mskk%9In5EKy4 hfImhO8pVnRMtkaXf0ScYYEhChoGKB3iTiVNamf82a5130JU0UqTx5GWEVgScTxpQmC Not Available [facility] , [address] , [place] , [address], , 11/06/2024 14:30:55 03/28/2025 03/28/2025 hand 3 view [email or web address]=ppJvJxnWQ5jJzwTYp0h%9TICniEclin4pezk%9Lr3PHk1 qeWosR9xLrHTmqeMn6FpDFJxIejTIZ6dEpQCgyy43g6047QN8GttjfSJkutMjSrwMbC Not Available [facility] , [address] , [place] , [address], , 03/28/2025 10:02:45 03/28/2025 03/28/2025 hand 3 view [email or web address]=jnDeRyaCW3bFrsRXw4v%4SYMziTptpq3ekld%6Fb8TLz1 zpLyxS4lEjKCfmgOo9EkUDPeGjrARB9pJmOGtfl20d1498FS2DwekxQAeuoFlNbcUgK Not Available [facility] , [address] , [place] , [address], , 03/28/2025 10:02:46 03/29/2025 03/29/2025 xr hip + pelvis, unilatera l 2 or 3 view, [address] [email or web address]=ugXfGdaAA8qRytVOs1g%6QANevCmhhx8lmtg%1Jt9WBb3 zeVdwQ9sDdLLoreMl0YoCQEdMvkXFU9uUxBUjls70q8310DF0ZkwgaDV2GbSsRsjEtN Not Available [facility] , [address] , [place] , [address], [place] , 03/29/2025 09:20:32 03/29/2025 03/29/2025 xr hip + pelvis, unilatera l 2 or 3 view, [id number] [email or web address]=qcSfXebQT1uMzlNBj5p%8HJJopRlubz4fcqk%3Ak3SDs6 pmOfrA9gBtXXfauGx2OxVDYuYgsLYS5lEjADigo11t7034GQ5VamidQE7AkWkQltOfD Not Available [facility] , [address] , [place] , [address], [place] , 03/29/2025 09:20:33 03/29/2025 03/29/2025 CT hip unilat wo No observation recorded. Dane pride [facility] [place] , [address] [facility] , [place] , [address], [place] , 03/30/2025 08:29:58 05/25/2025 05/25/2025 electromy ogram + nerve conductio n study No observation recorded. Not Available [facility] Scheduling Dept , [address] [place] , [address], [place] , 05/28/2025 12:51:30 Result Notes Documentation Provider Name and Address Organization Details Recorded Time Xr, Shoulder, 2 Or More View : [email or web address] Encrypted=bwGoSwuMJ6xDxzA Uv6g%9QUNxwGnydi6pypp%2Fg 9OQc5piStnE0tKgKHexxVy4Zl OLFoOttMNV0zYuPAamr84u941 0RY1IwIs1INSCcUsKkxQdZ Not Available [facility] 11/06/2024 14:30: 53 Xr, Shoulder, 2 Or More View : [email or web address]? Encrypted=jsWeQcrJY7oXltL Uv6g%8ELRbxSjotm4kpsk%2Fg 1WGo6zuOzkX1fTqENcztZu6Go JLSnRacNWP5uLyTAaxi63u255 7YL4FcMz8FFMFmTvJzzDfO Not Available [facility] 11/06/2024 14:30: 55 Xr, Hand, 3 Or More View : [email or web address] Encrypted=otYsWvyUR3bGkwG Uv6g%4NFCciXwijz7pcnl%2Fg 8ITl5moXydM9gIgNYiekNc0Nh CYXfIokALZ3kBcBGjkv63e783 0TS0PipweLWkvfObPicNbX Not Available [facility] 03/28/2025 10:02: 45 Xr, Hand, 3 Or More View : [email or web address] Encrypted=wuVuNguTG0fAciV Uv6g%1LLRaiMfldr5piee%2Fg 2LTe1efWvxS6tKkYTfpaZx4Tw JGDgSouSAC1jCpDKdgo78k411 0IN2SqtjrFIkoiJjShjSfX Not Available [facility] 03/28/2025 10:02: 46 Xr, Hip + Pelvis, Unilateral, 2 Or 3 View : [email or web address] Encrypted=jdWcPlqRB8wOnqS Uv6g%3HMCimOpyzx6pliw%2Fg 8MRz3qlIgwZ0fZiVSwwhMk7Xr BYCoRcrEFP3cKdATica79x455 4OF7LnjwtQD1FwJiTbiUgP Not Available [facility] 03/29/2025 09:20: 32 Xr, Hip + Pelvis, Unilateral, 2 Or 3 View : [email or web address] Encrypted=ekHcUbvNH7gPunL Uv6g%2NDGboOtfrf6fiae%2Fg 1DDs8rmOvqZ1kTiBJvfsLp1Ex JEBkLfhZQK7kYiETumh78f142 5LL5UxxufZL8XoQpVrhEpP Not Available [facility] 03/29/2025 09:20: 33 Problems Name Problem SNOMED Code Status Onset Date Resolution Date Notes Provider Name and Address Organization Details Recorded Time No complaint s 900484220 Active Status: 'I'; Not Available [facility] 4 09:15:56 Carpal tunnel syndrome of right wrist [id number] 108 Active 2014 Problem Code: G56.01; Problem Code Type: ICD-10; Status: 'A'; Not Available [facility] 4 11:28:59 Trigger thumb of right hand 522345570147 105 Active 2017 Problem Code: M65.311; Problem Code Type: ICD-10; Status: 'A'; Not Available [facility] 4 11:28:59 Pain of right shoulder joint 873269598438 33559 Active 2024 Carolina Bowman PA-C [address], [place], [address] , [facility] 5 11:23:25 Pain of hip region 78628574 Active 2024 NICO martinez [facility] 5 09:11:40 Closed fracture of hip 112807840 Active 2024 Miracle Vines PA-C [address], [place], [address] , [facility] 5 09:42:02 Problem Notes None recorded. Procedures Surgical History Date Name Laterality Status Provider Name and Address Organization Details Recorded Time 05/30/20 25 Carpal Tunnel Kenalog 1cc Injection, Bilateral completed Derek Anglin MD [address], [place], [address], [facility] 05/30/2025 11:34:37 11/07/19 25 Sports Shoulder completed Carolina Bowman PA-C [address], [place], [address], [facility] 11/06/2024 11:26:48 08/28/19 13693 Therapeutic Exercise (1:1) completed Nicole Maynard, ADVANCED MANUFACTURING ASSOCIATE [address], [place], [address], [facility] 08/28/2024 14:52:23 08/24/19 57150 Therapeutic Exercise (1:1) completed Nicole Maynard, ADVANCED MANUFACTURING ASSOCIATE [address], [place], [address], [facility] 08/24/2024 12:36:02 08/24/19 25541 Therapeutic Exercise (1:1) cancelled Nicole Maynard, ADVANCED MANUFACTURING ASSOCIATE [address], [place], [address], [facility] 08/22/2024 12:17:24 08/08/20 69492 Therapeutic Exercise (1:1) completed Nicole Maynard, ADVANCED MANUFACTURING ASSOCIATE [address], [place], [address], [facility] 08/08/2024 11:18:32 08/04/20 81085 Therapeutic Exercise (1:1) completed Nicole Maynard, ADVANCED MANUFACTURING ASSOCIATE [address], [place], [address], [facility] 08/04/2024 10:37:51 07/31/20 05776 Therapeutic Exercise (1:1) completed DONTE LOPEZ DPT [address], [place], [address], [facility] 08/01/2024 10:27:32 07/31/20 97592: Low complexity PT Eval completed DONTE LOPEZ DPT [address], [place], [address], [facility] 08/01/2024 10:28:04 Knee Surgery completed SULLY HERNANDEZ [facility] 03/28/2025 09:40:56 Shoulder Surgery completed SULLY HERNANDEZ [place] [facility] 03/28/2025 09:40:56 Orthopedic Surgery completed SULLY HERNANDEZ [place] [facility] 03/28/2025 09:40:56 Other completed SULLY Nieves [facility] 03/28/2025 09:40:56 Imaging Results Imaging Date Name Status LastModifiedBy Organization Detail LastModifiedTime 11/06/2024 shoulder 4 view completed Not Available [facility] , [address] , [place] , [address], [place] , 11/06/2024 14:30:53 11/06/2024 shoulder 4 view completed Not Available [facility] , [address] , [place] , [address], [place] , 11/06/2024 14:30:55 03/28/2025 hand 3 view completed Not Available [facility] , [address] , [place] , [address], [place] , 03/28/2025 10:02:45 03/28/2025 hand 3 view completed Not Available [facility] , [address] , [place] , [address], [place] , 03/28/2025 10:02:46 03/29/2025 xr hip + pelvis, unilateral 2 or 3 view, [address] completed Not Available [facility] , [address] , [place] , [address], [place] , 03/29/2025 09:20:32 03/29/2025 xr hip + pelvis, unilateral 2 or 3 view, [address] completed Not Available [facility] , [address] , [place] , [address], [place] , 03/29/2025 09:20:33 03/29/2025 CT hip unilat wo completed [facility] [place] , [address] , [place] , [address], [place] , 03/30/2025 08:29:58 05/25/2025 electromyogram + nerve conduction study completed Not Available [facility] Scheduling Dept , [address] [place] [address] , [address], [place] , 05/28/2025 12:51:30 Procedure Notes None recorded. Medical Equipment None Reported. Allergies Allergen ID Allergen Name Allergen Category Reaction Reaction Severity Criticality Documentation Date Start Date Code Code System Note Provider Name and Address Organization Details Recorded Time 402164 Tegaderm medicatio n Not available Not available Not available 03/29/2025 NICO martinez [facility] 5 09:11:23 78493 Iodinated contrast media (substanc e) medicatio n Not available Not available Not available 10/25/20232005 76526 2003 SNOMED SULLY MARY martinez [facility] 5 09:40:53 41904 codeine medicatio n Not available Not available Not available 10/25/20232014 2670 RxNorm Not Available [facility] 4 13:40:16 Medications Name Authored On Sig Start Date Stop Date Status Note Indication Fill Status Repeat Number Dispense Quantity LastModified by Organization Details LastModified Time solif enaci n 10 mg table t 4 13:26:56 TAKE 1 TABL ET BY MOUT H EVER Y DAY active Not Available Not availab le 0 Not Available Not Available [facility] 05/01/2024 13:26:56 oxyco done HCl-o xycod one-A SA 4 13:50:16 as dire cted 1 TABL ET Q 4 HOUR S PRN PAIN DO NOT TORI Choudhary ON THIS MED 05/01 aborted Statu s: 'Curr ent'; Not Available Not availab le 0 Not Available [facility] 05/01/2024 13:39:59 zolpi dem 5 mg table t 4 13:26:56 05/01 aborted Not Available Not availab le 0 Not Available Home [facility] 05/01/2024 13:41:09 Binax NOW COVID -19 Ag Self Test kit 4 13:26:56 TEST DIRE CTED TODA Y 05/01 aborted Not Available Not availab le 0 Not Available [facility] 05/01/2024 14:08:27 Linze ss 4 13:50:16 Linz ess 290M CG Caps ule 05/01 aborted Statu s: 'Curr ent'; Not Available Not availab le 0 Not Available [facility] 05/01/2024 14:09:40 iprat ropiu m bromi de 21 mcg (0.03 %) nasal spray 4 13:26:56 USE 1 SPRA Y IN EACH NOST RIL TWIC E TAI Y NEED ED FOR [employer] L ERICA FITO ON 05/01 aborted Not Available Not availab le 0 Not Available [facility] 05/01/2024 14:10:01 neomy grery 3.5 mg/g- polym yxin B 10,00 0 unit/ g-dex ameth 0.1 % eye oint 4 13:26:56 APPL Y 1 INCH IN LEFT EYE FOUR TIME S TAI Y FOR 2 WEEK S THEN STOP 05/01 aborted Not Available Not availab le 0 Not Available [facility] 05/01/2024 14:10:07 aceta minop hen ER 650 mg table t,ext ended relea se 5 02:18:28 TAKE 1 TABL ET BY MOUT H FOUR TIME S TAI Y active Not Available Not availab le 0 Not Available Not Available [facility] 11/06/2024 02:18:28 calci um 600 mg (as carbo sonny) -benito min D3 20 mcg (800 unit) table t 5 02:18:28 TAKE 1 TABL ET BY MOUT H EVER Y DAY. . active Not Available Not availab le 0 Not Available Not Available [facility] 11/06/2024 02:18:28 diaze tootie 2 mg table t 5 02:18:28 TAKE 2 TABL ETS BY MOUT H THRE E TIME S TAI Y active Not Available Not availab le 0 Not Available Not Available [facility] 11/06/2024 02:18:28 dicyc lomin e 10 mg capsu le 5 02:18:28 active Not Available Not availab le 0 Not Available Not Available [facility] 11/06/2024 02:18:28 magne sium 500 mg (as magne sium oxide ) table t 5 02:18:28 TAKE 1 TABL ET BY MOUT H TAI Y active Not Available Not availab le 0 Not Available Not Available [facility] 11/06/2024 02:18:28 diaze tootie 5 [...] Not availab le 0 Not Available [facility] 03/28/2025 09:40:53 aspir in 81 mg table t,del ayed relea se 4 05:54:42 TAKE 1 TABL ET BY JACQUELINE Pham TWIC E TAI Y 03/28 aborted Not Available Not availab le 0 Not Available [facility] 03/28/2025 09:40:54 bupro pion HCl SR 150 mg table t,12 hr susta ined- relea se 5 11:05:14 TAKE 1 TABL ET BY JACQUELINE Pham TWIC E TAI Y 03/28 aborted Not Available Not availab le 0 Not Available [facility] 03/28/2025 09:40:54 olivia [...] Available Not availab le 0 Not Available [facility] 03/28/2025 09:40:54 dulox etine 30 mg capsu le,de layed relea se 5 11:05:13 TAKE 1 CAPS ULE BY JACQUELINE Pham EVER Y DAY. TAKE WITH 60 MG CAPS ULE FOR A TOTA L TAI Y DOSE OF 90 MG TAI Y 03/28 aborted Not Available Not availab le 0 Not Available [facility] 03/28/2025 09:40:54 eryth romyc in 5 mg/gr am (0.5 %) eye ointm ent 4 05:54:42 03/28 aborted Not Available Not availab le 0 Not Available [facility] 03/28/2025 09:40:54 eszop iclon e 2 mg table t 5 06:10:05 03/28 aborted Not Available Not availab le 0 Not Available [facility] 03/28/2025 09:40:54 gabap entin 600 mg table t 5 11:05:16 TAKE 1 TABL ET BY JACQUELINE Pham THRE E TIME S TAI Y 03/28 aborted Not Available Not availab le 0 Not Available [facility] 03/28/2025 09:40:54 hydro codon e 5 mg-ac etami nophe n 325 mg table t 5 11:05:14 TAKE 1 TABL ET BY JACQUELINE ODOM Y 8 HOUR S NEED ED FOR SUDHIR RE PAIN FOR 5 DAY 03/28 aborted Not Available Not availab le 0 Not Available [facility] 03/28/2025 09:40:54 hydro xyzin e HCl 50 mg table t 5 11:05:16 TAKE 1 TABL ET BY MOUT H THRE E TIME S TAI Y 03/28 aborted Not Available Not availab le 0 Not Available [facility] 03/28/2025 09:40:54 hydro xyzin e pamoa te 25 mg capsu le 4 13:26:56 TAKE 1 TO 2 CAPS ULES BY MOUT Ankit THRE E TIME S TAI Y NEED ED 03/28 aborted Not Available Not availab le 0 Not Available [facility] 03/28/2025 09:40:54 methy lpred nisol one 4 mg table ts in a dose pack 5 02:18:28 FOLL OW PACK AGE DIRE CTIO NS 03/28 aborted Not Available Not availab le 0 Not Available [facility] 03/28/2025 09:40:54 nalox one 4 mg/ac tuati on nasal spray 4 05:59:17 INST ILL 1 SPRA Y INTO THE NOST RIL MAY REPE AT DOSE IN OTHE R NOST RIL GIVE THE TIM TION AL DOSE EVER Y 2-3 BREANNA VIAT UNTI L RESP ONSE OR MEDI GENOVEVA ASSI BRENDAN CE 03/28 aborted Not Available Not availab le 0 Not Available [facility] 03/28/2025 09:40:54 predn isone 10 mg table t 5 06:10:05 03/28 aborted Not Available Not availab le 0 Not Available [facility] 03/28/2025 09:40:54 predn isone 20 mg table t 4 13:26:56 TAKE 1 TABL ET BY MOJORGE H EVER Y MORN ING 03/28 aborted Not Available Not availab le 0 Not Available [facility] 03/28/2025 09:40:54 predn isone 5 mg table t 4 13:26:56 SEE TAPE R DIRE CTIO NS AURELIANO CHED 03/28 aborted Not Available Not availab le 0 Not Available [facility] 03/28/2025 09:40:54 timol ol fer te 0.5 % eye drops 5 11:05:16 INST ILL 1 DROP IN BOTH EYES TWIC E TAI Y FOR 2 WEEK S 03/28 aborted Not Available Not availab le 0 Not Available [facility] 03/28/2025 09:40:54 diclo fenac 1 % topic al gel 5 02:18:28 APPL Y 2 GRAM S TO THE LEFT THUM B EVER Y 4 HOUR S. DO NOT USE MORE TAHN 12 GRAM S A DAY 03/28 aborted Not Available Not availab le 0 Not Available [facility] 03/28/2025 09:40:55 gabap entin 100 mg capsu le 5 11:05:15 03/28 aborted Not Available Not availab le 0 Not Available [facility] 03/28/2025 09:40:55 hydro xyzin e HCl 25 mg table t 4 13:26:56 TAKE 1 TO 2 TABL ETS BY JACQUELINE Pham THRE E TIME S TAI Y NEED ED 03/28 aborted Not Available Not availab le 0 Not Available [facility] 03/28/2025 09:40:55 ketor olac 0.5 % eye drops 5 11:05:16 INST ILL 1 DROP INTO THE AFFE CTED EYE THRE E TIME S TAI Y STAR TING 2 DAYS PRIO R TO SURG SHIRLEY AND TAPE R DIRE CTED 03/28 aborted Not Available Not availab le 0 Not Available SULLY HERNANDEZ [facility] 03/28/2025 09:40:55 topir amate 50 mg table t 5 11:05:16 TAKE 1 TABL ET BY MOUT H TWIC E TAI Y FOR 2 WEEK S THEN TAKE 2 TABL ETS BY MOUT H TWIC E TAI Y FOR 30 DAYS DIRE CTED 03/28 aborted Not Available Not availab le 0 Not Available SULLY HERNANDEZ [facility] 03/28/2025 09:40:55 zolpi dem 10 mg table t 4 05:54:42 03/28 aborted Not Available Not availab le 0 Not Available SULLY HERNANDEZ [facility] 03/28/2025 09:40:55 mirab egron ER 25 mg [...] Updated DateTime 11/06/2024 162.56 cm 34.3 kg/m2 97492.47 g Nhi Perry [facility] 11/06/2024 14:20:42 Date Recorded Body height Body mass index (BMI) Body weight Provider Name and Address Organization Details Last Updated DateTime 03/20/2025 162.56 cm 34.3 kg/m2 33705.47 g Nhi Perry [facility] 03/20/2025 11:04:49 Date Recorded Body height Body mass index (BMI) Body weight Provider Name and Address Organization Details Last Updated DateTime 03/28/2025 162.56 cm 34.3 kg/m2 45182.47 g SULLY RAWLSO [facility] 03/28/2025 09:41:04 Date Recorded Body height Body mass index (BMI) Body weight Provider Name and Address Organization Details Last Updated DateTime 03/29/2025 157.48 cm 31.3 kg/m2 05068.3 g NICO WILLIAMSON [facility] 03/29/2025 09:11:13 Date Recorded Body height Body mass index (BMI) Body weight Provider Name and Address Organization Details Last Updated DateTime 05/30/2025 157.48 cm 31.3 kg/m2 49500.3 g SULLYBella RAWLSO [facility] 05/30/2025 10:30:32 Social History Question Answer Notes LastModified by Organizat ion Details LastModified Time Tobacco Smoking Status Former Smoker SULLY HERNANDEZ [facility] 03/28/2025 09:40:55 How Many Times Per Week Do You Consume Alcohol? Less Than 1 Time Per Week SULLYBella RAWLSO [facility] 03/28/2025 09:40:55 Which of your hands is dominant? Right Carolina Bowman PA-C [facility] [address], [place], [address], [facility] 11/06/2024 16:21:21 How many years have you smoked tobacco? 33 SULLYBella WESTHERNANDEZ [facility] 03/28/2025 09:40:55 When did you quit smoking? 6-10 years since last cigarette SULLYBella RAWLSO [facility] 03/28/2025 09:40:55 What is your relationship status? SULLYBella WESTHERNANDEZ [facility] 03/28/2025 09:40:55 Social History Observation Description Date Observed Sex Unknown 07/11/2025 Legal Sex Female Status Not (finding) 08/20/20 25 No social history survey screeners recorded No social history SDOH screeners recorded Functional Status Question Answer Note LastModified by [employer] Details LastModified Time Do you or have you ever used any other forms of tobacco or nicotine? Yes SULLYBella HERNANDEZ [facility] 03/28/2025 09:40:55 Do you or have you ever used e-cigarettes or vape? Never used electronic cigarettes SULLYBella HERNANDEZ [facility] 03/28/2025 09:40:55 How many times per week do you consume alcohol? Less than 1 time per week [facility]/28/[facility]25 09:40:55 Do you use any illicit or recreational drugs? No [facility] 03/28/2025 09:40:55 Date Assessment Value LastModified by Organizat [employer] Details LastModified Time 08/01/2024 Lower Extremity Functional Scale 43 DONTE LOPEZ DPT [facility] 08/01/2024 10:21:51 No Functional SDOH screeners recorded [...] Kidney/Bladder Problems Y Anemia N Heart Attack (NV) N Cholesterol N Diabetes N Bleeding Disorder [...] ICD10 Code Diagnosis IMO Codes Diagnosis Note [id number] Amena Ali, PA-C [facility] [address] [place] [address] 05/01/2024 13:21:17 05/22/2024 16:15:52 Sprain of left ankle [id number] S93.402D Derangemen t of left ankle joint 9722498712 0764820 M24.542 [id number] Amena Dunlap PA-C [facility] [address] [place] [address] 05/12/2024 08:09:56 06/02/2024 10:16:01 Pain of left ankle joint 2705261292 5799426 M25.403 [id number] Amena Dunlap PA-C [facility] [address] [place] [address] 06/01/2024 10:06:21 06/27/2024 09:33:18 Pain in left foot 9018086836 01929 M79.672 Sprain of ankle 26450277 S93.402A [id number] Teresa Johnston PA-C [facility] [address] [place] [address] 06/07/2024 09:50:43 06/30/2024 12:06:10 Sprain of ankle [id number] S93.402A [id number] Derek Anglin MD [facility] [address] [place] [address] 07/05/2024 08:35:12 08/04/2024 09:01:21 Pain of left forearm [id number] 73457 M79.585 2760102 Pain of elbow region 743 47257 M25.522 512063 Bursitis o f olecranon of left elbow 9517845363 91539 M70.22 6717364 Contusion of left forearm 7970692677 5806456 S50.12XD 518029 [id number] Amena Dunlap PA-C [facility] [address] [place] [address] 07/11/2024 08:58:23 07/26/2024 12:13:12 Sprain of left ankle [id number] [id number] S93.402A 517361019 [id number] DONTE LARSENTAINE, DPT [facility] [address] [place] [address] 07/31/2024 15:01:07 07/31/2024 16:05:20 Sprain of left ankle [id number] S93.402D [id number] Nicole Formejeste r, [employer] [facility] [address] [place] [address] 08/04/2024 09:13:24 08/04/2024 10:10:33 Sprain of left ankle [id number] S93.402D [id number] Nicole Formejeste r, [employer] [facility] [address] [place] [address] 08/08/2024 10:17:07 08/08/2024 11:28:09 Sprain of left ankle [id number] [id number] S93.402D [id number] Nicole Formejeste r, [employer] [facility] [address] [place] [address] 08/24/2024 13:16:14 08/24/2024 16:31:07 Sprain of left ankle 8589888088 9095704 S93.402D [id number] Nicole Formejeste r, [employer] [facility] [address] [place] [address] 08/28/2024 14:58:40 08/28/2024 16:02:34 Sprain of left ankle [id number] S93.402D [id number] [facility] - [facility] [address] [place] [address] 09/05/2024 13:36:48 09/15/2024 10:35:47 Sprain of left ankle [id number] [id number] S93.492D 502634 [id number] Carolina Bowman PA-C [facility] [address] [place] [address] 11/06/2024 13:53:42 11/20/2024 13:48:23 Pain of right shoulder joint 1312155680 6663115 M25.511 697806 [id number] Ranjit Belle PA-C [facility] [address] [place] [address] 03/20/2025 10:54:09 04/02/2025 10:46:21 Rotator cuff arthropathy of right shoulder 5626717209 6643144 M75.101 M12.811 [id number] MD [facility] [address] [place] [address] 03/28/2025 09:33:13 04/02/2025 15:32:26 Pain of bilateral hands 7541291831 8376783 M79.641 M79.642 21216880 Bilateral carpal tunnel syndrome 0415286289 0935103 G56.03 021072 Arthritis 6602704 M19.90 163678 [id number] [facility] - [place] [address] [place] [address] 03/29/2025 08:21:27 04/05/2025 08:31:08 Pain of hip region 15490471 M25.552 757342 Closed fra cture of hip 965270075 S72.002A 3239962 [id number] MD [facility] [address] [place] [address] 05/30/2025 09:48:34 06/06/2025 13:28:19 Bilateral carpal tunnel syndrome 4395980270 3182559 G56.03 [id number] Health Concerns Section Related Observation LastModified by [...] INSURANCE Halle Suárez 05/30/2025 1 [place]IC[place] B-[place]: [employer] Edu Suárez [id number] Halle Suárez 07/05/2025 2 [place] [facility] PLAN Edu Suárez [id number] Halle Suárez Notes Date Note Type Note Provider Name and Address Organization Details Recorded Time 11/06/2024 text/html I am seeing the patient today under the supervision of Dr. Middleton who was available but did not see the patient. CLINICAL UPDATE:58-year-old [id number] female patient presents today for right shoulder [...] Right shoulder ordered, obtained and reviewed at [facility] today demonstrates cystic changes of the [...] and agrees with the plan. Speech recognition maid housekeeper software was used to create portions of this document. An attempt at proofreading has been made to minimize errors. Please call for corrections. Carolina Bowman PA-C [address], [place], [address], [facility] 11/06/2024 16:23:52 [...] for MRI review, sooner if symptoms dictate. [facility] speech recognition maid housekeeper software was used to create portions of this document. An attempt at proofreading has been made to minimize errors. Please call for corrections. Ranjit Belle PA-C [address], [place], [address], [facility] 03/20/2025 12:09:50 [...] X-rays ordered, obtained, and reviewed today at [facility]: PA, lateral, oblique views of [...] recommended the patient be evaluated by a drive man to rule out the presence of inflammatory arthropathy. Her rapid progression in terms of swelling and pain would be consistent with that diagnosis. She will follow-up as directed. Derek Anglin MD [address] [place] [address] [address], [place], [address], [facility] 03/28/2025 13:08:05 03/29/2025 text/html I am [...] visit note. This note was generated with [facility] speech recognition maid housekeeper dictation software. Please excuse any errors that may have been overlooked during review of this note. Sometimes, these errors may affect the content or meaning of a given sentence. Please call for corrections. Miracle Vines PA-C [address] [facility] [address] [facility], [place], [address], [facility] 03/29/2025 09:42:28 05/30/2025 text/html ROS as noted in the HPI Diagnosis: Possible bilateral recurrent carpal tunnel syndrome The patient returns at her request. Since her last visit she underwent an EMG/NCS of her bilateral upper extremities. She reports that she was eval by drive man who recommended a neurologist. Past family, medical, [...] follow-up at her discretion. Derek Anglin MD [address] [place] [address] [address], [place], [address], [facility] 05/30/2025 11:35:03 Care Team Name Role Member ID Specialty Address Phone MEGHAN TRUJILLO MD Primary Care Provider [id number] [facility] [place] OBGyn Episode No OBEpisode recorded.
--- OUTSIDE RECORDS SUMMARY | 2025-08-20 14:11 | XMS_ITS | Encounter Summary ---
Author Organization [facility] Address [address] [place] [address] Phone Care Team Providers Care Auto Detailer Name Role Phone Johann Trujillo MD Primary Care Provider [phone] Encounter Details Date Type Department Care Team (Late st Contact Info) Description 01/09/2025 Procedure Pass [facility] PERIOPERATIVE DEPT [address] [place] [phone] Social History Tobacco Use Types Packs/Day Years [...] on filedocumented in this encounter Care Teams Auto Detailer Relationship Specialty Start Date End Date Johann Trujillo MD [address] [place] [address] PCP - General Internal Medicine 01/29/23 documented as of this encounter Additional Source Comments The information contained in this document represents components of the legal health record. It is not the complete legal health record.[facility]
--- OUTSIDE RECORDS SUMMARY | 2025-08-20 14:12 | XMS_ITS | Encounter Summary ---
Author Organization [facility] Address [address] [place], [place] [address] Phone Care Team Providers Care Clinical Administrative Coordinator Name Role Phone Tito Alvarado MD Primary Care Provider Pcp, Unknown Primary Care Provider Johann Schroeder MD Primary Care Provider [phone] Encounter Details Date Type Department Care Team (Late st Contact Info) Description 02/11/2022 Procedure Pass [facility] [place] [place] PERIOPERATIVE DEPT [address] [place] [phone] Social History Tobacco Use Types Packs/Day Years [...] on filedocumented in this encounter Care Teams Clinical Administrative Coordinator Relationship Specialty Start Date End Date Tito Alvarado MD PCP - General Internal Medicine 07/30/21 12/15/22 Pcp, Unknown PCP - General 12/16/22 01/28/23 Johann Trujillo MD [address] [place] [address] PCP - General Internal Medicine 01/29/23 documented as of this encounter Additional Source Comments The information contained in this document represents components of the legal health record. It is not the complete legal health record.[facility]
--- OUTSIDE RECORDS SUMMARY | 2025-08-20 14:12 | XMS_ITS | Clinical Summary ---
Author Organization [facility] Address [address] [place] [address] Phone Care Team Providers Care Boatbuilder Supervisor Name Role Phone Johann Trujillo MD Primary Care Provider [phone] Allergies Active Allergy Reactions Criticality Noted Date [...] METABOLIC PANEL STAT 09/05/2024 4:29 PM EST [facility] SCREENING DIGITAL Routine 01/23/2022 4:44 PM EDT Encounter for screening mammogram for malignant neoplasm of breast [facility] DEXA AXIAL SKELETON Routine [...] [facility] Comment:Calculation based on the [...] MD LAB BLOOD ORDERABLES Final Resu lt [facility] [address] [place] [address], * [facility] SCREENING DIGITAL (01/23/2022 4:44 PM EDT) Anatomical Region Laterality Modality Mammography 01/23/2022 11:1 5 AM EDT Narrative 01/23/2022 4:44 PM EDT [facility] Diagnostic Imaging Department [address] [place] [address] Patient: EDU SUÁREZ Ellen /Age/Sex: 1965 - 56 - F Unit#: [id number] Location/Status: [facility] CLI Mnemonic/Ordering Site: [facility] Ordering Physician: KATHERIN ALVARADO MD [facility] Screening Digital - 01/23/22 - 1154 History: Bilateral breast cancer screening. Technique: Digital mammography. Conventional CC and MLO projections with tomosynthesis MLO views and computer aided detection. Comparison: [facility] 01/27/2021 dating back to 02/10/2016. Findings: Breast tissue consists of fatty and fibroglandular elements (category b density) bilaterally (as calculated by OTOYpara software). There is no suspicious group of microcalcifications, mass, architectural distortion or suspicious change in breast tissue density. Impression: No evidence of malignancy. BIRADS category 1; negative study, 3341F 33639, 12432 Note: Patient information entered into a reminder system with a target due date for the next mammogram: CPT II 7025F Dictating Physician: CANDELARIO ENRIQUEZ MD Electronically Signed by: CANDELARIO ENRIQUEZ MD Dic Date/Time: 01/23/22 1640 Sign date/Time: 01/23/22 1644 Procedure Note Candelario Enriquez MD - 08/12/2022 [facility] Diagnostic Imaging Department [address] [place] [address] Patient: EDU SUÁREZ Ellen /Age/Sex: 1965 - 56 - F Unit#: [id number] Location/Status: [facility]/REG CLI Mnemonic/Ordering Site: [facility] Ordering Physician: KATHERIN ALVARADO MD [facility] Screening Digital - 01/23/22 - 1154 History: Bilateral breast cancer screening. Technique: Digital mammography. Conventional CC and MLO projectionswith tomosynthesis MLO views and computer aided detection. Comparison: [facility] 01/27/2021 dating back to 02/10/2016. Findings: Breast tissue consists of fatty and fibroglandular elements (category b density) bilaterally (as calculated by [employer]). There is no suspicious group of microcalcifications, mass, architectural distortion or suspicious change in breast tissue density. Impression: No evidence of malignancy. BIRADS category 1; negative study, 3341F 90989, [address] Note: Patient information entered into a reminder system with a target duedate for the next mammogram: CPT II 7025F Dictating Physician: CANDELARIO ENRIQUEZ MD Electronically Signed by: CANDELARIO ENRIQUEZ MD Dic Date/Time: 01/23/22 1640 Sign date/Time: 01/23/22 2227 us Katherin Alvarado MD IMG BI PROCEDURES Final Resu lt * [facility] DEXA AXIAL SKELETON (10/30/2019 8:08 AM EDT) Anatomical Region Laterality Modality Mammography 10/30/2019 7:36 AM EDT Narrative 10/30/2019 8:08 AM EDT [facility] Diagnostic Imaging Department [address] [place] [address] Patient: EDU SUÁREZ Ellen /Age/Sex: 1965 53 - F Unit#: [id number] Location/Status: [facility]/REG CLI Mnemonic/Ordering Site: [facility] Ordering Physician: GERARDO LUX MD [facility] Dexa Axial Skeleton - 10/30/19758 [...] probability of hip fracture of 1.2%. Code 44249 Dictating Physician: GABRIELLA PIERRE MD Electronically Signed by: GABRIELLA PIERRE MD Dic Date/Time: 10/30/19805 Sign date/Time: 10/30/19807 Procedure Note Gabriella Pierre - 08/11/2022 [facility] Diagnostic Imaging Department [address] [place], [place] [id number] Patient: EDU SUÁREZ Ellen /Age/Sex: 1965 - 53 - F Unit#: [id number] [facility]ing Site: [facility] Ordering Physician: GERARDO LUX MD [facility] Dexa Axial Skeleton - 10/30/19 7249 HISTORY: The patient is a 53-year-old postmenopausal [...] density of the femurs bilaterally is 0.796 gm/zy8erthc is 79% of that of young normals [...] probability of hip fracture of 1.2%. Code 82146 Dictating Physician: GABRIELLA PIERRE MD Electronically Signed by: GABRIELLA PIERRE MD Dic Date/Time: 10/30/19 0806 Sign date/Time: 10/30/19 0808 Gerardo Lux MD IMG BI PROCEDURES Final Result from Last 3 Months or Most Recently Relevant to Health Maintenance Insurance MEDICAID - [place] Care Teams Boatbuilder Supervisor Relationship Specialty Start Date End Date Johann Trujillo MD [address] [place] PCP - General Internal Medicine 09/06/24
== END 2025-08-20 12:57 | disposition home or self-care (01) ==
LOC: HO.HSM 12:06
PROVIDERS: PCP Internal Medicine; Visit Provider Registered Nurse
DX: R55 Syncope and collapse (principal); G43.109 Migraine with aura, not intractable, without status migrainosus; G31.84 Mild cognitive impairment of uncertain or unknown etiology; M50.90 Cervical disc disorder, unspecified, unspecified cervical region; M79.7 Fibromyalgia; I65.29 Occlusion and stenosis of unspecified carotid artery
CPT/HCPCS: 99214

== ENCOUNTER → 2025-08-20 12:05 | Outpatient (BNVA) | payer MEDICARE, MEDICAID, SELFPAY | PROVIDERS: PCP Internal Medicine; Visit Provider Registered Nurse | DX: R55 Syncope and collapse (principal); G43.109 Migraine with aura, not intractable, without status migrainosus; G31.84 Mild cognitive impairment of uncertain or unknown etiology; M50.90 Cervical disc disorder, unspecified, unspecified cervical region; Z91.81 History of falling; M79.7 Fibromyalgia | CPT/HCPCS: 99212 ==